=== PATIENT | female | born 1950 | race Caucasian/White ===

== ENCOUNTER → 2016-07-12 | Outpatient (CLI) | payer MEDICARE, BC ==
[~2016-07-12] MED LIST: ASPI-983; ATOR40TA PO; CLOP75TA69 PO; CYCL10TA9 PO; DIAZ5TAB3; ETD400T PO; GABA-486; HYDR-3458 PO; OXYC-272 PO; SERT50TA PO; SITA1TAB3 PO
--- OUTSIDE RECORDS SUMMARY | 2016-07-12 13:06 | XMS REPORT | Continuity of Care Document ---
Author Author [facility] Organization [facility] Address Unknown Phone Unavailable Care Team Providers Care Circular Saw Edge Fuser Name Role Phone Cosme Soliz PCP [phone] Source Comments Some departments are not documenting in the electronic medical record. If you do not see the information that you expected, contact Release of Information in the Health Information Management department at [phone] for further assistance in locating additional records.[facility] Active Allergies and Adverse Reactions Not on File Current Medications Not on file Active Problems Not on file Social History Tobacco Use Types Packs/Day Years Used Date Never Assessed Plan of Care Health Maintenance Due Date Last Done Comments Physical (Comprehensive) 1957 Exam Pertussis Vaccine 1961 Tetanus Vaccine 1967 Breast Cancer Screening 1990 Colorectal Cancer 2000 Screening Shingles Vaccine 2010 Osteoporosis Screening 2015 Prevnar/Pneumovax (#1) 2015 Influenza Vaccine 01/17/2016 Results from Last 3 Months Not on file
--- NOTE | 2016-07-12 16:55 | Diagnostic Imaging Report ---
MRI thoracic spine without contrast. INDICATION: Back pain. FINDINGS: There are no previous MRI examinations of the thoracic spine available for comparison. The previous CT lumbar spine exam of 01/26/2014 did show extensive postsurgical changes involving the lumbar spine. On this exam, there are bilateral pedicle screws in place at L1 and L2. MRI of the lumbar spine is pending for further study. The reconstructed parasagittal images show the vertebral body heights and alignment to be generally within normal limits. There is desiccation of the discs at every level but the intervertebral spaces are fairly well-maintained. There is no evidence for spinal stenosis or nerve root encroachment at any level of the thoracic spine. There is no abnormal signal arising from the cord or the vertebral bodies to indicate an acute abnormality. There is no paraspinal mass visualized. IMPRESSION: 1. There is no evidence for an acute abnormality of the thoracic spine. 2. There is moderate degenerative disc disease throughout the thoracic spine but there is no sign of spinal stenosis or nerve root encroachment at any level. Dictated by: Dictated on workstation # [id number]
--- NOTE | 2016-07-12 17:22 | Diagnostic Imaging Report ---
PROCEDURE: MRI lumbar spine. TECHNIQUE: Multiplanar, multisequence MRI of the lumbar spine was performed without contrast. INDICATION: Back pain. FINDINGS: The previous MRI lumbar spine exam performed on 09/04/2012 noted deformity of L2 and L3 due to prior compression fractures. There are also postsurgical changes involving the lower lumbar spine. The CT lumbar spine exam of 01/26/2014 revealed extensive postsurgical changes including bilateral pedicle screws at every level of the lumbar spine except L3. There is a single pedicle screw on the left at this level. On this exam, the artifact related to the orthopedic hardware does limit the sensitivity of this study. The axial images through the L4-5 level do show that there is an extradural defect compressing the left ventral aspect of the thecal sac. Whether this is secondary to disc material or epidural fibrosis is not certain. This finding may have been present on the prior CT lumbar spine exam but was difficult to appreciate due to the artifact related to the orthopedic hardware. There does appear to be compression of the left ventral aspect of the thecal sac at this level and there is narrowing of the neural foramen on the left at L4-5 as well. There is also mild narrowing of the neural foramen on the right. There is also moderate trefoil stenosis at the L1-L2 level. There is narrowing of the neural foramen bilaterally at this level, particularly on the right. The remainder of the lumbar spine is unremarkable for spinal stenosis. There is no abnormal signal arising from the cord or the vertebral bodies to indicate an acute abnormality. There is no sign of a paraspinal mass. IMPRESSION: 1. There are extensive postsurgical changes involving the lumbar spine. The artifact related to the orthopedic hardware does limit the sensitivity of this exam. 2. There does appear to be an extradural defect compressing the left ventral aspect of the thecal sac at L4-5. Whether this is secondary to disc material or to epidural fibrosis is not certain. There is also narrowing of the neural foramen on the left at this level and to a lesser extent the neural foramen on the right. Moderate trefoil stenosis is also evident at L1-2 and there is narrowing of the neural foramen bilaterally at this level as well. 3. The remainder of the lumbar spine is unremarkable for spinal stenosis or nerve root encroachment. 4. There is no sign of an acute bony abnormality or of cord lesion. Dictated by: Dictated on workstation # [id number]
--- NOTE | 2016-07-12 17:40 | Diagnostic Imaging Report ---
PROCEDURE: MR imaging cervical spine without contrast. TECHNIQUE: Multiplanar, multisequence MR imaging of the cervical spine was performed without contrast. INDICATION: Neck pain. FINDINGS: The previous MRI exam of the cervical spine performed on 04/10/2014 noted degenerative disc and bony disease at C4-5, C5-6 and C6-7. In the interval since the previous exam, the patient has undergone a surgical procedure. Specifically, there has been anterior fusion of C5, C6 and C7. The orthopedic hardware seems to be in good position and the narrowing of the thecal sac in the lower cervical region seen on previous exam has been corrected. There is no sign of recurrent stenosis at C5-C6 or C6-C7. However, the disc bulge centrally at the C4-5 level is somewhat more pronounced than on the prior exam. The AP diameter of thecal sac at C4-5 is narrowed to 10.5 mm as opposed to 11.8 mm on the prior study. There is also mild narrowing of the neural foramen bilaterally at this level. There is mild narrowing of the neural foramen on the right at C3-4. This finding is similar to the prior exam. The remainder of the cervical spine is unremarkable for spinal stenosis or nerve root encroachment. There is no abnormal signal arising from the cord or the vertebral bodies to indicate an acute abnormality. There is no sign of a paraspinal mass. The expected carotid vertebral flow voids are evident bilaterally. IMPRESSION: 1. There are postsurgical changes consistent with anterior fusion of C5, C6 and C7. There is no evidence for spinal stenosis or nerve root encroachment at the fused levels. 2. The disc bulge at the C4-5 level seen previously is slightly more pronounced than on the prior exam. There is still no evidence for central stenosis at this level. There is mild narrowing of the neural foramen bilaterally, however. 3. There is also mild narrowing of the neural foramen on the right at C3-C4 but this finding is unchanged when compared to the prior exam. 4. There is no acute bony abnormality identified and there is no sign of a cord lesion. Dictated by: Dictated on workstation # [id number]
== END ==
LOC: RAD 13:02
PROVIDERS: ATTEND Nurse Practitioner Family
DX: M54.5 Low back pain (principal); Z98.1 Arthrodesis status
CPT/HCPCS: 72141; 72146; 72148

== ENCOUNTER 2016-08-04 10:28 | Emergency (ER) | payer MEDICARE, BC ==
[~2016-08-04] VITALS: Ht 154.9 cm; Wt 50.8 kg
[~2016-08-04 10:28] MED LIST changes: -ASPI-983; -ATOR40TA PO; -CLOP75TA69 PO; -DIAZ5TAB3; -GABA-486
--- OUTSIDE RECORDS SUMMARY | 2016-08-04 10:33 | XMS REPORT | Continuity of Care Document ---
Author Author [facility] Organization [facility] Address Unknown Phone Unavailable Care Team Providers Care Junior Loan Processor Name Role Phone Cosme Soliz PCP [phone] Source Comments Some departments are not documenting in the electronic medical record. If you do not see the information that you expected, contact Release of Information in the Health Information Management department at [phone] for further assistance in locating additional records.[facility] Active Allergies and Adverse Reactions Not on [...]
[2016-08-04] MEDS ORDERED: ASPI-983 (10:40)
[2016-08-04] MEDS ORDERED: GABA-486 (10:40)
[2016-08-04] MEDS ORDERED: DIAZ5TAB3 (10:40)
[2016-08-04 10:58] LABS: BASOPHILS % (AUTO) 1 % (0-10); EOSINOPHILS # (AUTO) 0.1 10^3/uL (0.0-0.3); EOSINOPHILS % (AUTO) 1 % (0-10); LYMPHOCYTES # (AUTO) 1.8 X 10^3 (1.0-4.0); LYMPHOCYTES % (AUTO) 29 % (12-44); MEAN CORPUSCULAR HEMOGLOBIN 30 PG (25-34); MEAN CORPUSCULAR HGB CONC 34 G/DL (32-36); MEAN CORPUSCULAR VOLUME 88 FL (80-99); MEAN PLATELET VOLUME 9.8 FL (7.4-10.4); MONOCYTES # (AUTO) 0.5 X 10^3 (0.0-1.0); MONOCYTES % (AUTO) 7 % (0-12); NEUTROPHILS # (AUTO) 3.8 X 10^3 (1.8-7.8); NEUTROPHILS % (AUTO) 62 % (42-75); PLATELET COUNT 213 10^3/uL (130-400); RED BLOOD COUNT 4.39 10^6/uL (4.35-5.85); RED CELL DISTRIBUTION WIDTH 14.9 % (10.0-14.5); WHITE BLOOD COUNT 6.2 10^3/uL (4.3-11.0)
--- NOTE | 2016-08-04 11:07 | Diagnostic Imaging Report ---
PROCEDURE: CT head without contrast. TECHNIQUE: Multiple contiguous axial images were obtained through the brain without the use of intravenous contrast. INDICATION: Confusion. COMPARISON: 09/23/2012. FINDINGS: There is mild generalized cortical atrophy. No evidence of intracranial hemorrhage. There is no mass effect. There are no extra-axial fluid collections. The basal cisterns are clear. No findings are seen to suggest ischemic or hemorrhagic infarcts. The mastoid air cells and paranasal sinuses are clear where visualized. IMPRESSION: 1. There has been development of some cortical atrophy since the previous exam. 2. No acute intracranial abnormalities are demonstrated. Dictated by: Dictated on workstation # [id number]
--- NOTE | 2016-08-04 11:08 | Diagnostic Imaging Report ---
INDICATION: Chest pain. Portable chest 11:08 AM. Heart size and pulmonary vascularity are normal. Lungs are clear. There are no effusions or pneumothoraces. IMPRESSION: Negative chest. Dictated by: Dictated on workstation # [id number]
--- NOTE | 2016-08-04 11:13 | ED Neurological Problem ---
General Chief Complaint: Neurological Problems Stated Complaint: STROKE Source: patient, spouse Exam Limitations: other (BOTH PT AND ARE VERY LIMITED HISTORIANS) History of Present Illness Time seen by provider: 10:25 Initial Comments PT ARRIVES VIA POV FROM HOME THINK PT MAY BE HAVING A STROKE SYMPTOMS BEGAN AN HOUR AGO UPON WAKING AT 0915 PT WITH DEMENTIA, BUT ON WAKING, SHE HAD TROUBLE REMEMBERING THINGS--WORSE THAN NORMAL PT ALSO HAD SLURRED SPEECH ON WAKING WELL--MUCH BETTER WELL. NO PARESTHESIAS OR MOTOR DEFICITS PT HAS NOT TAKEN ANY OF HER MEDICATIONS TODAY REPORTS THAT PT'S IS BACK TO BASELINE PCP: DR. VAUGHAN BIOMED TECH : DR. MERCHANT Allergies and Home Medications Allergies Coded Allergies: Penicillins (Unverified Allergy, Unknown, HIVES, 12/21/15) THROAT SWELLS Uncoded Allergies: PAULINO INHIBITOR 2 (Allergy, Unknown, HIVES, 12/21/15) THROAT SWELLS Home Medications Aspirin 81 Mg Tablet. #30 (Reported) Atorvastatin Calcium 40 Mg Tablet #30 40 MG PO DAILY Prescribed by: ADRIANA TRIPP on 08/04/16 1221 Clopidogrel Bisulfate 75 Mg Tablet #30 75 MG PO DAILY Prescribed by: ADRIANA TRIPP on 08/04/16 1221 Cyclobenzaprine Hcl 10 Mg Tablet #40 1 EACH PO Q8HR PRN (Reported) Diazepam 5 Mg Tablet #30 (Reported) Etodolac 400 Mg Tab 400 MG PO BID (Reported) Gabapentin 100 Mg Capsule #90 (Reported) Hydrocodone Bit/Acetaminophen 1 Each Tablet 1 EACH PO (Reported) Sertraline Hcl 50 Mg Tablet 50 MG PO DAILY (Reported) Sitagliptin Phos/Metformin Hcl 1 Each Tablet 1 EACH PO DAILY (Reported) Constitutional: no symptoms reported Eyes: No Symptoms Reported Ears, Nose, Mouth, Throat: no symptoms reported Respiratory: no symptoms reported Cardiovascular: no symptoms reported Gastrointestinal: no symptoms reported Genitourinary: no symptoms reported Musculoskeletal: no symptoms reported Skin: no symptoms reported Psychiatric/Neurological: See HPI Endocrine: No Symptoms Reported Hematologic/Lymphatic: No Symptoms Reported Past Kdllhek-Uiwgab-Uvdcbi Hx Patient Social History Alcohol Use: Denies Use Recreational Drug Use: No Smoking Status: Never a Smoker Recent Hopitalizations: No Immunizations Up To Date Tetanus Booster (TDap): More than 5yrs Date of Influenza Vaccine: Feb 16, 2012 Seasonal Allergies Seasonal Allergies: Yes Surgeries HX Surgeries: Yes (SINUS SURGERY; 3 KNEE REPLACEMENTS--2 ON RIGHT, 1 ON LEFT; 3 L-SPINE SURGERIES; C-SPINE SURGERY; LEFT ELBOW SURGERY; HYST; FACIAL/JAW SURGERY) Surgeries: Hysterectomy, Orthopedic, Tonsillectomy Respiratory Hx Respiratory Disorders: Yes Respiratory Disorders: Asthma Cardiovascular Hx Cardiac Disorders: Yes Neurological Hx Neurological Disorders: Yes ("SILENT STROKE"--FOUND ON MRI; NUMBNESS TO RIGHT ANTERIOR THIGH. ) Neurological Disorders: Dementia, Stroke Reproductive System Hx Reproductive Disorders: No Genitourinary Hx Genitourinary Disorders: No Gastrointestinal Hx Gastrointestinal Disorders: No Musculoskeletal Hx Musculoskeletal Disorders: Yes (CHRONIC RIGHT LEG PAIN AND RIGHT ANTERIOR THIGH NUMBNESS; CHRONIC NECK/BACK AND KNEE PAIN; MULTIPLE SURGERIES) Musculoskeletal Disorders: Osteoporosis, Arthritis, Chronic Back Pain, Fractures Endocrine Hx Endocrine Disorders: Yes (WAS ON MEDICATIONS FOR DIABETES, BUT NOT ANY LONGER) Endocrine Disorders: Diabetes, Non-Insulin dep Cancer Hx Cancer: No Psychosocial Hx Psychiatric Problems: Yes Behavioral Health Disorders: Depression Integumentary HX Skin/Integumentary Disorder: No Blood Transfusions Hx Blood Disorders: No Physical Exam Vital Signs Vital Sign - Last 12Hours 08/04/16 10:28 Temp 98.1 Pulse 72 Resp 18 B/P 116/66 Pulse Ox 94 O2 Delivery Room Air Capillary Refill : General Appearance: WD/WN no apparent distress HEENT: PERRL/EOMI normal ENT inspection Neck: non-tender full range of motion supple normal inspection Respiratory: normal breath sounds no respiratory distress no accessory muscle use Cardiovascular: regular rate, rhythm no murmur Gastrointestinal: normal bowel sounds non tender soft Back: normal inspection no CVA tenderness no vertebral tenderness Extremities: normal range of motion non-tender normal inspection no pedal edema no calf tenderness Neurologic/Psychiatric: 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 nml as tested no motor/sensory deficits alert normal mood/affect other (ORIENTED TO PERSON, PLACE, POOR MEMORY, SOMEWHAT CONFUSED TO TIME AND SITUATION--NORMAL BASELINE PER ) Crainal Nerves: normal hearing normal speech PERRL Coordination/Gait: normal finger to nose normal gait negative Romberg's sign Motor/Sensory: no motor deficit no sensory deficit no pronator drift Reflexes: 2+ Bicep (R), 2+ Bicep (L), 2+ Knee (R), 2+ Knee (L) Skin: normal color warm/dry Focused Exam Lactic Acid Level Laboratory Tests Test 3/20/17 10:46 Alanine Aminotransferase (ALT/SGPT) 18U/L (0-55) Albumin 4.2G/DL (3.2-4.5) Alkaline Phosphatase 55U/L (40-136) Anion Gap 10MMOL/L (5-14) Aspartate Amino Transf (AST/SGOT) 26U/L (5-34) BUN/Creatinine Ratio 17 Blood Urea Nitrogen 15MG/DL (7-18) Calcium Level 8.9MG/DL (8.5-10.1) Carbon Dioxide Level 25MMOL/L (21-32) Chloride Level 111MMOL/L (98-107) H Creatinine 0.87MG/DL (0.60-1.30) Estimat Glomerular Filtration Rate > 60 Glucose Level 101MG/DL (70-105) Magnesium Level 2.1MG/DL (1.8-2.4) Myoglobin 31.0NG/ML (10.0-92.0) Potassium Level 3.9MMOL/L (3.6-5.0) Sodium Level 146MMOL/L (135-145) H Total Bilirubin 0.3MG/DL (0.1-1.0) Total Protein 6.4G/DL (6.4-8.2) Troponin I < 0.30NG/ML (<0.30) Progress/Results/Core Measures Results/Orders Lab Results Laboratory Tests Test 08/04/16 10:46 Range/Units Activated Partial Thromboplast Time 29 24-35 SEC Alanine Aminotransferase (ALT/SGPT) 18 0-55 U/L Albumin 4.2 3.2-4.5 G/DL Alkaline Phosphatase 55 40-136 U/L Anion Gap 10 5-14 MMOL/L Aspartate Amino Transf (AST/SGOT) 26 5-34 U/L BUN/Creatinine Ratio 17 Basophils # (Auto) 0.0 0.0-0.1 10^3/uL Basophils (%) (Auto) 1 0-10 % Blood Urea Nitrogen 15 7-18 MG/DL Calcium Level 8.9 8.5-10.1 MG/DL Carbon Dioxide Level 25 21-32 MMOL/L Chloride Level 111 H 98-107 MMOL/L Creatinine 0.87 0.60-1.30 MG/DL Eosinophils # (Auto) 0.1 0.0-0.3 10^3/uL Eosinophils (%) (Auto) 1 0-10 % Estimat Glomerular Filtration Rate > 60 Glucose Level 101 70-105 MG/DL Hematocrit 38 35-52 % Hemoglobin 13.2 11.5-16.0 G/DL INR Comment 0.9 0.8-1.4 Lymphocytes # (Auto) 1.8 1.0-4.0 X 10^3 Lymphocytes (%) (Auto) 29 12-44 % Magnesium Level 2.1 1.8-2.4 MG/DL Mean Corpuscular Hemoglobin 30 25-34 PG Mean Corpuscular Hemoglobin Concent 34 32-36 G/DL Mean Corpuscular Volume 88 80-99 FL Mean Platelet Volume 9.8 7.4-10.4 FL Monocytes # (Auto) 0.5 0.0-1.0 X 10^3 Monocytes (%) (Auto) 7 0-12 % Myoglobin 31.0 10.0-92.0 NG/ML Neutrophils # (Auto) 3.8 1.8-7.8 X 10^3 Neutrophils (%) (Auto) 62 42-75 % Platelet Count 213 130-400 10^3/uL Potassium Level 3.9 3.6-5.0 MMOL/L Prothrombin Time 12.3 12.2-14.7 SEC Red Blood Count 4.39 4.35-5.85 10^6/uL Red Cell Distribution Width 14.9 H 10.0-14.5 % Sodium Level 146 H 135-145 MMOL/L Total Bilirubin 0.3 0.1-1.0 MG/DL Total Protein 6.4 6.4-8.2 G/DL Troponin I < 0.30 <0.30 NG/ML White Blood Count 6.2 4.3-11.0 10^3/uL My Orders Orders-ADRIANA TRIPP DO Ekg Tracing (08/04/16 10:41) Cbc With Automated Diff (08/04/16 10:41) Comprehensive Metabolic Panel (08/04/16 10:41) Protime With Inr (08/04/16 10:41) Partial Thromboplastin Time (08/04/16 10:41) Magnesium (08/04/16 10:41) Chest 1 View, Ap/Pa Only (08/04/16 10:41) Cardiac Profile 1 (08/04/16 10:41) Myoglobin Serum (08/04/16 10:41) Ct Head Wo (08/04/16 10:41) Monitor-Rhythm Ecg Trace Only (08/04/16 10:41) Saline Lock/Iv-Start (08/04/16 10:41) Vital Signs/I&O Vital Sign - Last 12Hours 08/04/16 08/04/16 10:28 12:26 Temp 98.1 Pulse 72 70 Resp 18 18 B/P 116/66 Pulse Ox 94 96 O2 Delivery Room Air ECG Initial ECG Impression Time: 11:50 Initial ECG Rate: 68 Initial ECG Rhythm: Normal Sinus Initial ECG Impression: Normal Initial ECG Comparisson: Unchanged Diagnostic Imaging Comments CXR--NO ACUTE PROCESS CT HEAD--NO ACUTE PROCESS, ATROPHY PER RADIOLOGIST REPORTS @ 1112 Departure Communication Progress Notes 1154--ATTEMPTING TO CONTACT DR. VAUGHAN, MESSAGE ON CELL. AND LEFT MESSAGE WITH STAFF. 1204--DR. VAUGHAN CALLED BACK. ADVISES PLAVIX AND LIPITOR AND SHE WILL SEE PT IN FOLLOW UP 08/11/16 AT 2:45 Impression Impression: Primary Impression: Transient cerebral ischemia Disposition: HOME, SELF-CARE Condition: Improved Departure-Patient Inst. Referrals: ZULEYMA VAUGHAN MD (PCP/Family) Primary Care Physician Patient Instructions: Transient Ischemic Attack (DC) Add. Discharge Instructions: CONTINUE YOUR REGULAR MEDICATIONS PRESCRIBED FOLLOW UP WITH DR. VAUGHAN NEXT Thursday08/11/16 AT 2:45 FOR FURTHER CARE RETURN TO ER IF SYMPTOMS RETURN OR WORSEN All discharge instructions reviewed with patient and/or family. Voiced understanding. Scripts Atorvastatin Calcium (Lipitor)40 Mg [id number] Mg PO DAILY #30 TAB Prov:QASIM,ADRIANA K DO 08/04/16 Clopidogrel Bisulfate (Plavix)75 Mg [id number] Mg PO DAILY #30 TAB Prov:QASIMADRIANA K DO 08/04/16 DIANE TRIPPA David DO Aug 04, 2016 11:12
[2016-08-04 11:17] LABS: INR 0.9 (0.8-1.4); PROTHROMBIN TIME PATIENT 12.3 SEC (12.2-14.7)
[2016-08-04 11:26] LABS: ALANINE AMINOTRANSFERASE 18 U/L (0-55); ALBUMIN 4.2 G/DL (3.2-4.5); ANION GAP 10 MMOL/L (5-14); ASPARTATE AMINO TRANSFERASE 26 U/L (5-34); BILIRUBIN,TOTAL 0.3 MG/DL (0.1-1.0); BLOOD UREA NITROGEN 15 MG/DL (7-18); BUN/CREATININE RATIO 17; CALCIUM 8.9 MG/DL (8.5-10.1); CARBON DIOXIDE 25 MMOL/L (21-32); CHLORIDE 111 MMOL/L (98-107); CREATININE SERUM 0.87 MG/DL (0.60-1.30); GFR ESTIMATED > 60; GLUCOSE 101 MG/DL (70-105); MAGNESIUM 2.1 MG/DL (1.8-2.4); POTASSIUM 3.9 MMOL/L (3.6-5.0); SODIUM 146 MMOL/L (135-145); TOTAL PROTEIN 6.4 G/DL (6.4-8.2)
[2016-08-04] MEDS ORDERED: ATOR40TA PO (12:21)
[2016-08-04] MEDS ORDERED: CLOP75TA69 PO (12:21)
[2016-08-04 12:26] VITALS: BP 121/65
== END 2016-08-04 12:27 | disposition home or self-care (01) ==
LOC: EDUNIT# 10:28 → ER 10:29
DX: G45.9 Transient cerebral ischemic attack, unspecified (principal); E11.9 Type 2 diabetes mellitus without complications; Z79.82 Long term (current) use of aspirin; Z79.899 Other long term (current) drug therapy; F03.90 Unspecified dementia, unspecified severity, without behavioral disturbance, psychotic disturbance, mood disturbance, and anxiety
CPT/HCPCS: 36415; 70450; 71010; 80053; 83735; 83874; 84484; 85025; 85610; 85730; 93005; 93041

== ENCOUNTER → 2016-08-19 | Outpatient (CLI) | payer MEDICARE, BC ==
[~2016-08-19] MED LIST changes: +ASPI-983; +ATOR40TA PO; +CLOP75TA69 PO; +DIAZ5TAB3; +GABA-486
--- NOTE | 2016-08-21 10:19 | ECHOCARDIOGRAPHY REPORT ---
PROCEDURE PHYSICIAN: NICOLE VO DATE OF PROCEDURE: 08/19/2016 TWO DIMENSIONAL ECHOCARDIOGRAM REPORT PRIMARY PHYSICIAN: OTHER PHYSICIAN: ATTENDING PHYSICIAN: Dr. Marylu Ochoa ORDERING PHYSICIAN: ATTENDING PHYSICIAN: FAMILY PHYSICIAN: READING PHYSICIAN: Dr. Abner Vo INDICATION FOR THE PROCEDURE: History of stroke, hypertension. MEASUREMENTS DERIVED VALUES LV DIAMETER (LAX) NORMALS NORMALS Diastolic (3.6-5.2) Eject. Fract. (60%+/-6%) Systolic (2.3-3.9) Diastolic Vol. % Shortening (0.22-0.42) Systolic Vol. Aortic Root IVS THICKNESS Diastolic (0.6-1.1) LVPW THICKNESS Diastolic (0.6-1.1) LA DIAMETER Systolic (2.1-3.7) FINDINGS: 1. Sinus rhythm. 2. Left atrial dimensions are normal. 3. Aortic root dimensions are normal. 4. Left ventricular systolic function is preserved. Left ventricular ejection fraction is 60 to 65%. No LVH is present. 5. There is no wall motion abnormalities. 6. Right heart function is normal. 7. There is no evidence of pericardial effusion. 8. Mild diastolic dysfunction is present. 9. IVC is normal with a diameter of 0.9 cm normal respiratory variation. VALVULAR STRUCTURE OF THE HEART: There is mild pulmonic regurgitation with mild tricuspid regurgitation. RVSP is 23 mmHg. There is mild mitral regurgitation. Aortic valve is trileaflet with no significant pathology. CONCLUSION: 1. LV and RV size and function is normal. 2. LV EF is 60 to 65%. 3. There is no significant valvular heart disease. 4. Pulmonary pressures are normal. 5. Mild diastolic dysfunction is noted. 6. Transthoracic echocardiogram has moderate sensitivity and specificity for ruling out cardiac etiology of CVA. Transesophageal echocardiogram is recommended if clinically indicated. Job ID: [id number] Dictated Date: 08/21/2016 08:55:56 Mill Roll Operator Date: 08/21/2016 10:14:50 / troy
== END ==
LOC: CARD 12:16
PROVIDERS: ATTEND Family Medicine
DX: I10 Essential (primary) hypertension (principal); Z86.73 Personal history of transient ischemic attack (TIA), and cerebral infarction without residual deficits
CPT/HCPCS: 93306

== ENCOUNTER 2016-12-22 10:21 | Emergency (ER) | payer MEDICARE, BC ==
[~2016-12-22] VITALS: Ht 154.9 cm; Wt 59.0 kg
[2016-12-22 10:41] LABS: BASOPHILS % (AUTO) 0 % (0-10); EOSINOPHILS % (AUTO) 0 % (0-10); LYMPHOCYTES # (AUTO) 0.7 X 10^3 (1.0-4.0); LYMPHOCYTES % (AUTO) 5 % (12-44); MEAN CORPUSCULAR HEMOGLOBIN 30 PG (25-34); MEAN CORPUSCULAR HGB CONC 34 G/DL (32-36); MEAN CORPUSCULAR VOLUME 90 FL (80-99); MONOCYTES # (AUTO) 0.5 X 10^3 (0.0-1.0); MONOCYTES % (AUTO) 3 % (0-12); NEUTROPHILS # (AUTO) 13.4 X 10^3 (1.8-7.8); NEUTROPHILS % (AUTO) 92 % (42-75); PLATELET COUNT 235 10^3/uL (130-400); RED BLOOD COUNT 4.15 10^6/uL (4.35-5.85); RED CELL DISTRIBUTION WIDTH 14.9 % (10.0-14.5); WHITE BLOOD COUNT 14.6 10^3/uL (4.3-11.0)
--- NOTE | 2016-12-22 10:41 | ED Neurological Problem ---
General Chief Complaint: Neuro-Stroke Like Symptoms Stated Complaint: STROKE SYMPTOMS Source: patient, family Exam Limitations: clinical condition History of Present Illness Time seen by provider: 10:21 Initial Comments Here with who reports the patient woke up this morning and was not able to talk right and seemed very confused. Also noted some right facial droop. No history of recent injuries. States last night she may have had some problems eating but otherwise was acting appropriately. At 7 a.m., he noted that she was coughing and having difficulty swallowing. He watched her for a while and things did not get better and in fact may have worsened with her confusion. Ultimately brought her to the ER for evaluation. Does have history of a mini stroke 4 months ago but was unable to define that further. Otherwise is acting normal recently. Patient does take Namenda for some short-term memory loss that she was noted to have after having a spinal surgery several years ago. Patient's primary care doctor is Dr. Ochoa. Timing/Duration: unknown, increasing Severity: moderate Associated Symptoms: confusion, No fever/chills, No nausea/vomiting, No seizures, trouble walking, weakness Allergies and Home Medications Allergies Coded Allergies: Penicillins (Unverified Allergy, Unknown, HIVES, 12/21/15) THROAT SWELLS Uncoded Allergies: PAULINO INHIBITOR 2 (Allergy, Unknown, HIVES, 12/21/15) THROAT SWELLS Home Medications Aspirin 81 Mg Tablet., #30 (Reported) Atorvastatin Calcium 40 Mg Tablet, 40 MG PO DAILY, #30 Prescribed by: ADRIANA TRIPP on 08/04/16 1221 Clopidogrel Bisulfate 75 Mg Tablet, 75 MG PO DAILY, #30 Prescribed by: ADRIANA TRIPP on 08/04/16 1221 Cyclobenzaprine Hcl 10 Mg Tablet, 1 EACH PO Q8HR PRN, #40 (Reported) Diazepam 5 Mg Tablet, #30 (Reported) Etodolac 400 Mg Tab, 400 MG PO BID, (Reported) Gabapentin 100 Mg Capsule, #90 (Reported) Hydrocodone Bit/Acetaminophen 1 Each Tablet, 1 EACH PO, (Reported) Sertraline Hcl 50 Mg Tablet, 50 MG PO DAILY, (Reported) Sitagliptin Phos/Metformin Hcl 1 Each Tablet, 1 EACH PO DAILY, (Reported) Constitutional: see HPI, No chills, No fever Eyes: No Symptoms Reported Ears, Nose, Mouth, Throat: no symptoms reported Respiratory: no symptoms reported Cardiovascular: no symptoms reported Gastrointestinal: No abdominal pain, No nausea, No vomiting Genitourinary: no symptoms reported Skin: no symptoms reported All Other Systems Reviewed Negative Unless Noted: Yes Past Extmxnx-Boastc-Pzxnfn Hx Patient Social History Alcohol Use: Denies Use Recreational Drug Use: No Smoking Status: Never a Smoker Recent Foreign Travel: No Contact w/Someone Who Travel: No Recent Hopitalizations: No Immunizations Up To Date Tetanus Booster (TDap): More than 5yrs Date of Influenza Vaccine: Feb 16, 2012 Seasonal Allergies Seasonal Allergies: Yes Surgeries HX Surgeries: Yes Surgeries: Hysterectomy, Orthopedic, Tonsillectomy Respiratory Hx Respiratory Disorders: Yes Respiratory Disorders: Asthma Cardiovascular Hx Cardiac Disorders: Yes Neurological Hx Neurological Disorders: Yes ("SILENT STROKE"--FOUND ON MRI; NUMBNESS TO RIGHT ANTERIOR THIGH. ) Neurological Disorders: Dementia, Stroke Reproductive System Hx Reproductive Disorders: No Genitourinary Hx Genitourinary Disorders: No Gastrointestinal Hx Gastrointestinal Disorders: No Musculoskeletal Hx Musculoskeletal Disorders: Yes Musculoskeletal Disorders: Osteoporosis, Arthritis, Chronic Back Pain, Fractures Endocrine Hx Endocrine Disorders: Yes (WAS ON MEDICATIONS FOR DIABETES, BUT NOT ANY LONGER) Endocrine Disorders: Diabetes, Non-Insulin dep Cancer Hx Cancer: No Psychosocial Hx Psychiatric Problems: Yes Behavioral Health Disorders: Depression Integumentary HX Skin/Integumentary Disorder: No Blood Transfusions Hx Blood Disorders: No Reviewed Nursing Assessment Reviewed/Agree w Nursing PMH: Yes Family Medical History Significant Family History: No Pertinent Family Hx Physical Exam Vital Signs Vital Sign - Last 12Hours 12/22/16 11:01 Pulse Ox 95 O2 Delivery Room Air Capillary Refill : General Appearance: WD/WN, no apparent distress HEENT: PERRL/EOMI, pharynx normal Neck: full range of motion, supple Respiratory: lungs clear, normal breath sounds Cardiovascular: regular rate, rhythm, no murmur Peripheral Pulses: 2+ Dorsalis Pedis (R), 2+ Left Dors-Pedis (L), 2+ Radial Pulses (R), 2+ Radial Pulses (L) Gastrointestinal: non tender, soft Back: normal inspection, no CVA tenderness, no vertebral tenderness Extremities: no pedal edema, other (weakness on the right side arm greater than leg) Neurologic/Psychiatric: alert, motor weakness (right-sided), disoriented x 3, other (confused speech) Crainal Nerves: abnormal speech, facial weakness Coordination/Gait: normal gait Motor/Sensory: pronator drift (R), weak motor strength RUE, weak motor strength RLE Skin: normal color, warm/dry Progress/Results/Core Measures Results/Orders Lab Results Laboratory Tests Test 12/22/16 10:33 Range/Units White Blood Count 14.6 H 4.3-11.0 10^3/uL Red Blood Count 4.15 L 4.35-5.85 10^6/uL Hemoglobin 12.6 11.5-16.0 G/DL Hematocrit 37 35-52 % Mean Corpuscular Volume 90 80-99 FL Mean Corpuscular Hemoglobin 30 25-34 PG Mean Corpuscular Hemoglobin Concent 34 32-36 G/DL Red Cell Distribution Width 14.9 H 10.0-14.5 % Platelet Count 235 130-400 10^3/uL Mean Platelet Volume 10.0 7.4-10.4 FL Neutrophils (%) (Auto) 92 H 42-75 % Lymphocytes (%) (Auto) 5 L 12-44 % Monocytes (%) (Auto) 3 0-12 % Eosinophils (%) (Auto) 0 0-10 % Basophils (%) (Auto) 0 0-10 % Neutrophils # (Auto) 13.4 H 1.8-7.8 X 10^3 Lymphocytes # (Auto) 0.7 L 1.0-4.0 X 10^3 Monocytes # (Auto) 0.5 0.0-1.0 X 10^3 Eosinophils # (Auto) 0.0 0.0-0.3 10^3/uL Basophils # (Auto) 0.0 0.0-0.1 10^3/uL Neutrophils % (Manual) 85 % Lymphocytes % (Manual) 5 % Monocytes % (Manual) 6 % Eosinophils % (Manual) 0 % Basophils % (Manual) 0 % Band Neutrophils 4 % Anisocytosis SLIGHT Elliptocytes SLIGHT Prothrombin Time 12.0 L 12.2-14.7 SEC INR Comment 0.9 0.8-1.4 Activated Partial Thromboplast Time 22 L 24-35 SEC D-Dimer 0.40 0.00-0.49 UG/ML Sodium Level 141 135-145 MMOL/L Potassium Level 3.8 3.6-5.0 MMOL/L Chloride Level 106 98-107 MMOL/L Carbon Dioxide Level 22 21-32 MMOL/L Anion Gap 13 5-14 MMOL/L Blood Urea Nitrogen 12 7-18 MG/DL Creatinine 0.80 0.60-1.30 MG/DL Estimat Glomerular Filtration Rate > 60 BUN/Creatinine Ratio 15 Glucose Level 165 H 70-105 MG/DL Calcium Level 9.6 8.5-10.1 MG/DL Total Bilirubin 0.9 0.1-1.0 MG/DL Aspartate Amino Transf (AST/SGOT) 26 5-34 U/L Alanine Aminotransferase (ALT/SGPT) 20 0-55 U/L Alkaline Phosphatase 67 40-136 U/L Troponin I < 0.30 <0.30 NG/ML Total Protein 6.8 6.4-8.2 GM/DL Albumin 4.4 3.2-4.5 GM/DL My Orders Orders - SANTA BARNES MD Ct Head Wo-R/O Stroke (12/22/16 10:28) Cbc With Automated Diff (12/22/16 10:35) Protime With Inr (12/22/16 10:35) Partial Thromboplastin Time (12/22/16 10:35) Comprehensive Metabolic Panel (12/22/16 10:35) Fibrin Degradation Products (12/22/16 10:35) Troponin I (12/22/16 10:35) Ua Culture If Indicated (12/22/16 10:35) Chest 1 View, Ap/Pa Only (12/22/16 10:35) Ekg Tracing (12/22/16 10:35) Nothing By Mouth (12/22/16 Dinner) Accucheck Stat ONCE (12/22/16 10:35) Saline Lock/Iv-Start (12/22/16 10:35) Saline Lock/Iv-Start (12/22/16 10:35) Vital Signs - Stroke Q15M (12/22/16 10:35) O2 (12/22/16 10:35) Intake & Output 06,14,22 (12/22/16 10:35) Monitor-Rhythm Ecg Trace Only (12/22/16 10:35) Dysphagia Screening Tool (12/22/16 10:35) Post Thrombolytic Adminstratio (12/22/16 10:35) Manual Differential (12/22/16 10:33) Vital Signs/I&O Vital Sign - Last 12Hours 12/22/16 11:01 Pulse Ox 95 O2 Delivery Room Air Progress Note : Progress Note Seen and evaluated on arrival. Stroke team activation initiated. Patient has difficulty with performing the right words but does have clear speech. She is weak on the right side right upper greater than right lower. She does have right facial droop. She does not appear to have gaze palsy but there is question of sensation deficit on the right side especially in the upper extremity and face. Patient had rapid CT evaluation which did show findings listed below. 1051: I did discuss the case with the neurosurgeon on-call at [facility] in [facility]. There are concerns about the potential for aneurysm bleed as the patient has no history of trauma. Patient would benefit from being at his center that could manage this. The closest available center is [facility] in [facility]. I did page [facility] at [phone]. 1121: I did discuss the case with Dr. Rhodes at [facility], neurosurgery on-call. She does accept patient for transfer. [facility] was activated previously as bed number was received and they are in route. 1125 : [facility] flight service here and appearing patient for transport. All findings, concerns and transport decision findings were discussed with the patient's family who agrees with plan. ECG Initial ECG Impression Date: Dec 22, 2016 Initial ECG Impression Time: 10:50 Initial ECG Rate: 83 Initial ECG Rhythm: Normal Sinus Comment Sinus rhythm with normal axis. No evidence of ST elevation CO. No previous available for comparison. Interpreted by me. Diagnostic Imaging Diagonstic Imaging: CT Plain Films/CT/US/NM/MRI: head Comments NAME: SARAH POE MED REC#: [id number] PT STATUS: REG ER : 1950 PHYSICIAN: SANTA BARNES MD ADMIT DATE: 12/22/16/ER Draft Date of Exam:12/22/16 CT HEAD WO-R/O STROKE EXAMINATION: CT scan of the head without intravenous contrast. COMPARISON: 08/04/2016. INDICATION: Right-sided weakness. FINDINGS: There is a large hematoma that appears to be intra-axial within the left frontal lobe. It has 2 main components, one that is hyperdense and one that is nearly isodense. Collectively, it measures in maximum axial dimensions 6.2 x 5.7 cm. The two remarkably different densities might relate to a previous hemorrhage within 1 to 2 weeks with a new area of hemorrhage at this time. No definitive underlying mass is seen. No previous abnormality was seen focally in the left frontal lobe on a CT of 08/04/2016. There is significant shift of the midline structures anteriorly along the falx with a 1.2 cm shift to the right side. There is less prominent mass effect posteriorly in the brain although the sulci posteriorly are effaced. The lateral ventricle is asymmetric from the mass effect with compression of the left lateral ventricle frontal horn. The hemorrhage appears to be completely intra-axial with no definite extra-axial component. The calvarium, paranasal sinuses, and orbits appear grossly unremarkable. IMPRESSION: The findings are suggestive of a large left frontal intraparenchymal hemorrhage with prominent mass effect and shift of the midline structures anteriorly to the right side by 1.2 cm. There are two distinct different densities in the hematoma which may suggest current bleeding on top of an earlier hemorrhage that happened within the last 2 weeks. No definitive underlying lesion is identified. The CRITICAL FINDINGS were discussed with Dr. Barnes once the CT scan was reviewed at 10:50 AM. Dictated on workstation # [id number] Dict: 12/22/16 1044 Trans: 12/22/16 1103 [id number] Interpreted by: NAHUM MEEKS MD Electronically signed by: Departure Impression Impression: Primary Impression: Intracranial hemorrhage Disposition: XF [facility] Condition: Critical Transfer Transfer Time: 11:21 Transfer Facility: [place], [place], Dr. Guadarrama accepting Method of Transfer: Air Departure-Patient Inst. Referrals: ZULEYMA OCHOA MD (PCP/Family) Primary Care Physician SANTA BARNES MD Dec 22, 2016 10:41
[2016-12-22 10:51] LABS: INR 0.9 (0.8-1.4)
[2016-12-22 10:58] LABS: ALANINE AMINOTRANSFERASE 20 U/L (0-55); ALBUMIN 4.4 GM/DL (3.2-4.5); ANION GAP 13 MMOL/L (5-14); ANISOCYTOSIS SLIGHT; ASPARTATE AMINO TRANSFERASE 26 U/L (5-34); BAND NEUTROPHILS 4 %; BASOPHILS % (MANUAL) 0 %; BILIRUBIN,TOTAL 0.9 MG/DL (0.1-1.0); BLOOD UREA NITROGEN 12 MG/DL (7-18); BUN/CREATININE RATIO 15; CALCIUM 9.6 MG/DL (8.5-10.1); CARBON DIOXIDE 22 MMOL/L (21-32); CHLORIDE 106 MMOL/L (98-107); EOSINOPHILS % (MANUAL) 0 %; GFR ESTIMATED > 60; GLUCOSE 165 MG/DL (70-105); LYMPHOCYTES % (MANUAL) 5 %; NEUTROPHILS % (MANUAL) 85 %; POTASSIUM 3.8 MMOL/L (3.6-5.0); SODIUM 141 MMOL/L (135-145); TOTAL PROTEIN 6.8 GM/DL (6.4-8.2)
[2016-12-22 11:03] LABS: TROPONIN I < 0.30 NG/ML (<0.30)
--- NOTE | 2016-12-22 11:03 | Diagnostic Imaging Report ---
Portable upright radiograph of the chest. INDICATION: Possible stroke. Right-sided weakness. FINDINGS: The lungs are clear. The heart size is at the upper limits of normal. No effusion or pneumothorax. The mediastinum and poornima appear unremarkable. There is posterior fusion hardware seen in the lumbar spine with cement projecting over L2 and L3 levels. Also cervical spine fusion hardware is seen. IMPRESSION: No acute cardiopulmonary process. Dictated by: Dictated on workstation # [id number]
--- NOTE | 2016-12-22 11:04 | Diagnostic Imaging Report ---
EXAMINATION: CT scan of the head without intravenous contrast. COMPARISON: 08/04/2016. INDICATION: Right-sided weakness. FINDINGS: There is a large hematoma that appears to be intra-axial within the left frontal lobe. It has 2 main components, one that is hyperdense and one that is nearly isodense. Collectively, it measures in maximum axial dimensions 6.2 x 5.7 cm. The two remarkably different densities might relate to a previous hemorrhage within 1 to 2 weeks with a new area of hemorrhage at this time. No definitive underlying mass is seen. No previous abnormality was seen focally in the left frontal lobe on a CT of 08/04/2016. There is significant shift of the midline structures anteriorly along the falx with a 1.2 cm shift to the right side. There is less prominent mass effect posteriorly in the brain although the sulci posteriorly are effaced. The lateral ventricle is asymmetric from the mass effect with compression of the left lateral ventricle frontal horn. The hemorrhage appears to be completely intra-axial with no definite extra-axial component. The calvarium, paranasal sinuses, and orbits appear grossly unremarkable. IMPRESSION: 1. Large left frontal intraparenchymal hemorrhage with prominent mass effect and shift of the midline structures anteriorly to the right side by 1.2 cm. 2. There are two distinct different densities in the hematoma which may suggest current bleeding on top of an earlier hemorrhage that happened within the last 2 weeks. No definitive underlying lesion is identified. The CRITICAL FINDINGS were discussed with Dr. Dickinson once the CT scan was reviewed at 10:50 AM. Dictated by: Dictated on workstation # [id number]
[2016-12-22 11:24] LABS: BILIRUBIN,URINE NEGATIVE (NEGATIVE); KETONES,URINE NEGATIVE (NEGATIVE); LEUKOCYTE ESTERASE ,URINE NEGATIVE (NEGATIVE); NITRITE,URINE NEGATIVE (NEGATIVE); PH,URINE 7 (5-9); PROTEIN,URINE NEGATIVE (NEGATIVE); UROBILINOGEN,URINE NORMAL (NORMAL)
[2016-12-22] MEDS ORDERED: MEMA28CA PO (11:26)
[2016-12-22] MEDS ORDERED: DULO30CA48 PO (11:26)
[2016-12-22] MEDS ORDERED: DONE5TAB30 PO (11:26)
[2016-12-22 11:31] LABS: SQUAMOUS EPITHELIAL CELL,UR RARE /HPF
[2016-12-22 11:40] VITALS: BP 115/61
== END 2016-12-22 11:40 | disposition short-term general hospital (02) ==
LOC: EDUNIT# 10:21 → ER 10:22
DX: I62.9 Nontraumatic intracranial hemorrhage, unspecified (principal); F32.9 Major depressive disorder, single episode, unspecified; E11.9 Type 2 diabetes mellitus without complications; M81.0 Age-related osteoporosis without current pathological fracture; F03.90 Unspecified dementia, unspecified severity, without behavioral disturbance, psychotic disturbance, mood disturbance, and anxiety; J45.909 Unspecified asthma, uncomplicated; Z90.710 Acquired absence of both cervix and uterus; Z90.89 Acquired absence of other organs; Z79.82 Long term (current) use of aspirin; Z86.73 Personal history of transient ischemic attack (TIA), and cerebral infarction without residual deficits
CPT/HCPCS: 36415; 51702; 70450; 71010; 80053; 81000; 84484; 85007; 85027; 85379; 85610; 85730; 93005; 93041

== ENCOUNTER 2017-03-02 16:27 | Emergency (ER) | payer MEDICARE, BC ==
[~2017-03-02] VITALS: Ht 160 cm; Wt 59.0 kg
[~2017-03-02 16:27] MED LIST changes: +DONE5TAB30 PO; +DULO30CA48 PO; +MEMA28CA PO
[2017-03-02] MEDS ORDERED: LIDOCAINE UROJET 2% GEL 10 ML PKG ONE (16:59)
[2017-03-02] MEDS ORDERED: LIDOCAINE JELLY 2% (XYLOCAINE) 5 ML TUBE TOP ONE (17:15)
--- NOTE | 2017-03-02 18:02 | ED General ---
General Chief Complaint: Catheter/Drain/Tube Problems Stated Complaint: FEEDING TUBE ISSUES Nursing Triage Note: Pt apparently pulled her feeding tube out around noon. They can't find the tube Nursing Sepsis Screen: No Definite Risk Source of Information: Patient, Spouse Exam Limitations: No Limitations Allergies and Home Medications Allergies Coded Allergies: Penicillins (Unverified Allergy, Unknown, HIVES, 12/21/15) THROAT SWELLS Uncoded Allergies: PAULINO INHIBITOR 2 (Allergy, Unknown, HIVES, 12/21/15) THROAT SWELLS Home Medications Aspirin 81 Mg Tablet., #30 (Reported) Clopidogrel Bisulfate 75 Mg Tablet, 75 MG PO DAILY, #30 Prescribed by: ADRIANA TRIPP on 08/04/16 1221 Donepezil HCl 5 Mg Tablet, 5 MG PO DAILY, (Reported) Duloxetine HCl 30 Mg Capsule.dr, 30 MG PO DAILY, (Reported) Memantine HCl 28 Mg Cap.spr.24, 28 MG PO DAILY, (Reported) Past Fkjqxse-Tpidnl-Wkkrte Hx Patient Social History Recent Foreign Travel: No Contact w/Someone Who Travel: No Recent Infectious Disease Expo: No Recent Hopitalizations: No Immunizations Up To Date Tetanus Booster (TDap): More than 5yrs Date of Influenza Vaccine: Feb 16, 2012 Seasonal Allergies Seasonal Allergies: Yes Surgeries History of Surgeries: Yes ("spinal cage" ) Surgeries: Hysterectomy, Orthopedic, Tonsillectomy Respiratory History of Respiratory Disorde: Yes Respiratory Disorders: Asthma Cardiovascular History of Cardiac Disorders: No Neurological History of Neurological Disord: Yes ("mini stroke" FOUND ON MRI 3-4 months ago per ) Neurological Disorders: Dementia, Stroke Reproductive System Hx Reproductive Disorders: No Genitourinary History of Genitourinary Disor: No Gastrointestinal History of Gastrointestinal Di: No Musculoskeletal History of Musculoskeletal Dis: Yes Musculoskeletal Disorders: Osteoporosis, Arthritis, Chronic Back Pain, Fractures Endocrine History of Endocrine Disorders: Yes (WAS ON MEDICATIONS FOR DIABETES, BUT NOT ANY LONGER) Endocrine Disorders: Diabetes, Non-Insulin dep HEENT History of HEENT Disorders: No Cancer History of Cancer: No Psychosocial History of Psychiatric Problem: Yes Behavioral Health Disorders: Depression Integumentary History of Skin or Integumenta: No Blood Transfusions History of Blood Disorders: No Family Medical History Significant Family History: No Pertinent Family Hx Physical Exam Vital Signs Vital Sign - Last 12Hours 10/16/17 16:58 Temp 98.1 Pulse 68 Resp 16 B/P (MAP) 118/70 Pulse Ox 98 O2 Delivery Room Air Capillary Refill : Less Than 3 Seconds Progress/Results/Core Measures Results/Orders My Orders Orders - REN BRITT Lidocaine 2% Jelly 5 Ml (Xylocaine Jelly (03/02/17 17:15) Lidocaine 2% (Urojet) (Xylocaine Urojet) (03/02/17 16:59) Medications Given in ED Current Medications Medications Dose Ordered Sig/Marie Route Start Time Stop Time Status Last Admin Dose Admin Lidocaine HCl 10 ml STK-MED ONCE .ROUTE 03/02/17 16:59 03/02/17 17:07 DC 03/02/17 17:16 10 ML Vital Signs/I&O Vital Sign - Last 12Hours 03/02/17 16:58 Temp 98.1 Pulse 68 Resp 16 B/P (MAP) 118/70 Pulse Ox 98 O2 Delivery Room Air Blood Pressure Mean: 86 Departure Impression Impression: Primary Impression: Dislodged gastrostomy tube Disposition: 01 HOME, SELF-CARE Condition: Improved Departure-Patient Inst. Decision time for Depature: 18:00 Referrals: ZULEYMA VAUGHAN MD (PCP/Family) Primary Care Physician Patient Instructions: How to Care for Your PEG Tube Add. Discharge Instructions: All discharge instructions reviewed with patient and/or family. Voiced understanding. Continue usual home medications. Continue feedings as ordered by your physician. Follow-up with your surgeon and family practitioner for recheck and outpatient as previously scheduled. Return in the emergency department immediately for dislodged gastrostomy tube, vomiting, abdominal swelling, or any other concerns. REN BRITT Mar 02, 2017 18:02
[2017-03-02 18:15] VITALS: BP 116/68
[2017-03-02] MEDS ORDERED: HYDR-3812 PO (18:19)
--- OUTSIDE RECORDS SUMMARY | 2017-03-03 05:59 | XMS REPORT | Continuity of Care Document ---
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 Phone [employer] Unavailable Unavailable Problems Medications Allergies, Adverse Reactions, Alerts Immunizations Results Vital Signs Encounters Location Location Details Encounter Type Encounter Number Reason For Visit Attending Provider ADM Date DC Date Status Source INPATIENT [id number] 12/22/2016 Active [facility] [id number] 01/14/2017 Active [facility] Krystyna ZARATE 03/04/2017 Active [facility] Procedures Plan of Care Social History Assessment and Plan Family History Value Date Source Advance Directives Order Name Results Value Date Source
--- OUTSIDE RECORDS SUMMARY | 2017-03-03 05:59 | XMS REPORT | Clinical Summary ---
Author Author [facility] Organization [facility] Address Unknown Phone Unavailable Care Team Providers Care Medical Staff Services Coordinator Name Role Phone PCP Unavailable Source Comments Some departments are not documenting in the electronic medical record. If you do not see the information that you expected, contact Release of Information in the Health Information Management department at [phone] for further assistance in locating additional records.[facility] Allergies Active Allergy Reactions Severity Noted Date Comments Penicillins UNKNOWN High 12/22/2016 Tomato SEE COMMENTS High 1950 Throat swelling Celecoxib HIVES Medium 12/24/2016 Artichoke VOMITING Low 12/24/2016 Current Medications Prescription Sig. Disp. Refills Start End Date Status Date aspirin EC 81 mg tablet Take 81 mg by mouth Active daily. Take with food. acetaminophen (TYLENOL) Take 20.3 mL by mouth 240 mL 0 01/07/20 Active 160 mg/5 mL oral solution every 4 hours as needed. 17 Max of 4,000 mg of acetaminophen in 24 hours. senna/docusate 10 mL by PEG Tube route 01/07/20 Active (SENOKOT-S) 8.8/50 mg /10 twice daily. 17 mL solution clopiDOGrel (PLAVIX) 75 Take 1 tablet by mouth 90 tablet 3 01/07/20 Active mg tablet daily. Will reevaluate 17 continuation of this medication at your follow up appointment levETIRAcetam (KEPPRA) Take 7.5 mL by mouth 473 mL 1 01/31/20 Active 100 mg/mL oral solution twice daily. 17 donepezil (ARICEPT) 5 mg Take 1 tablet per feeding 90 tablet 3 Active tablet tube daily. 17 heparin (porcine) PF Inject 0.5 mL under the 01/31/20 Active 5,000units/0.5mL skin every 8 hours. 17 injection syringe loratadine (CLARITIN) 10 Take 1 tablet via feeding 90 tablet 3 Active mg tablet tube daily. 17 melatonin 5 mg tab 1 tablet by Per G Tube 01/31/20 Active route at bedtime daily. 17 carboxymethylcellulose Apply 1 drop to both eyes 01/31/20 Active (REFRESH PLUS) 0.5 % dpet four times daily as 17 needed. ketotifen(+) (ZADITOR) Apply 1 drop to both eyes 0 01/31/20 Active 0.025 % (0.035 %) twice daily. 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) 2016 Dementia 12/23/2016 TIA (transient ischemic attack) 12/23/2016 Chronic back pain 12/23/2016 Intraparenchymal hemorrhage of brain (HCC) 12/22/2016 Overview: Added automatically from request for surgery [id number] Dysphagia 12/22/2016 Overview: Added automatically from request for surgery [id number] Resolved Problems Problem Noted Date Resolved Date Hypernatremia 01/07/2017 01/12/2017 Encounters Date Type Specialty Care Team Description 01/14/2017 Procedure Pass Rehabilitation 01/08/2017 Procedure Pass Rehabilitation 01/06/2017 Hospital Rehabilitation Lindsey Garcia MD Nontraumatic cortical - Encounter hemorrhage of left 01/30/2017 cerebral hemisphere (HCC) 01/02/2017 Procedure Pass 01/02/2017 Surgery Jong Hankins MD INSERTION GASTROSTOMY TUBE PERCUTANEOUS 01/01/2017 Anesthesia Ash Reis SRNA Event 12/31/2016 Anesthesia Neyda Salguero CRNA Event 12/31/2016 Procedure Pass 12/28/2016 Procedure Pass 12/28/2016 Procedure Pass 12/27/2016 Procedure Pass 12/25/2016 Procedure Pass 12/24/2016 Procedure Pass 12/24/2016 Anesthesia Abby Onofre, SRNA Event 12/24/2016 Procedure Pass 12/24/2016 Surgery Antwan Guadarrama MD CRANIOTOMY EVACUATION HEMATOMA supine microscope, brainlab, tube system 12/23/2016 Procedure Pass 12/23/2016 Prep for Case Nolberto Cody MD 12/22/2016 [facility] Antwan Guadarrama MD Dysphagia - Encounter 01/06/2017 12/22/2016 Hospital Radiology Encounter 12/22/2016 Procedure Pass 12/22/2016 Procedure Pass 12/22/2016 Hospital Radiology Encounter 12/22/2016 Procedure Pass 12/22/2016 Procedure Pass from Last 3 Months Social History Tobacco Use Types Packs/Day Years Used Date Never Smoker Smokeless Tobacco: Never Used Alcohol Use Drinks/Week oz/Week Comments No Sex Assigned at Date Recorded Not on file Last Filed Vital Signs Vital Sign Reading Time Taken Blood Pressure 99/41 01/30/2017 3:41 AM CDT Pulse 73 01/30/2017 3:41 AM CDT Temperature 36.5 C (97.7 F) 01/30/2017 5:55 AM CDT Respiratory Rate - - Oxygen Saturation 100% 01/30/2017 3:41 AM CDT Inhaled Oxygen - - Concentration Weight 55 kg (121 lb 4.1 oz) 01/26/2017 1:27 PM CDT Height 152.4 cm (5') 01/06/2017 4:19 PM CDT Body Mass Index 23.68 01/26/2017 1:27 PM CDT Plan of Treatment Health Maintenance Due Date Last Done Comments HEPATITIS C SCREENING 1950 PHYSICAL (COMPREHENSIVE) 1957 EXAM PERTUSSIS VACCINE 1961 TETANUS VACCINE 1967 BREAST CANCER SCREENING 1990 COLORECTAL CANCER 2000 SCREENING SHINGLES VACCINE 2010 OSTEOPOROSIS SCREENING 2015 PREVNAR/PNEUMOVAX (#1) 2015 INFLUENZA VACCINE 12/16/2016 Implants Implanted Type Area Gis Software Developer Device Expiration Model / Identifier Date Serial / Lot Screw Neuro 1.5x4mm Drill Free - [employer]Y [facility] [id number] Sna IMPLANTS 91 / Implanted: Qty: 4 on 12/24/2016 by Antwan Beckman MD NA Cover Kirit Hole 17mm .3mm Contour Left: KATHY [employer] [facility] [id number] Titanium - Sna Skull IMPLANTS / Implanted: Qty: 1 on 12/24/2016 by Antwan Beckman MD NA Device Closure 70cm 6fr Angio-Seal Right: [facility] 07/15/2017 [id number] / Vip .035in Vascular - Sn/A Femoral N/A / Implanted: Qty: 1 on 12/29/2016 by Artery [id number] Scott Mancilla MD Procedures Procedure Name Priority Date/Time Associated Diagnosis Comments ECG-SCAN 01/18/2017 Results for this 9:44 AM CDT procedure are in the results section. ECG UNCONFIRMED-SCAN 01/14/2017 Results for this 12:21 PM CDT procedure are in the results section. TELEMETRY STRIPS-SCAN 01/09/2017 Results for this 4:23 PM CDT procedure are in the results section. ECG UNCONFIRMED-SCAN 01/09/2017 Results for this 6:19 AM CDT procedure are in the results section. ECG UNCONFIRMED-SCAN 01/09/2017 Results for this 6:19 AM CDT procedure are in the results section. INSERTION GASTROSTOMY 01/02/2017 Dysphagia TUBE PERCUTANEOUS 5:05 PM CDT ANESTHESIA ARTERIAL LINE Routine 12/24/2016 INSERTION 2:33 PM CDT Procedure Note - Alan Bolanos MD - 12/24/2016 2:33 PM CDT Anesthesi a Procedure: Arterial Line Placement A-LINE INSERTION Date/Time: 12/24/2016 2:33 PM Patient location: OR Indication s: hemodynami c monitoring Preproced ure checklist performed: 2 patient identifier s, risks & benefits discussed, patient evaluated, timeout performed, consent obtained, patient being monitored and sterile drape Sterile technique: - Proper hand washing - Cap, mask - Sterile gloves - Skin prep for antisepsis Arterial Line Procedure Patient sedated: yes (see MAR) Sedation type: general; Artery prepped with alcohol swabs; skin prep agent completely dried prior to procedure. Location: radial artery Laterality : left Technique: palpation Needle gauge: 20 G Number of attempts: 1 Procedure Outcome Catheter secured with adhesive dressing applied Events: skin intact, warm, and dry Observatio n: pt tolerated well CRANIOTOMY EVACUATION 12/24/2016 Intraparenchymal HEMATOMA supine 12:55 PM CDT hemorrhage of brain (HCC) microscope, brainlab, tube system from Last 3 Months Results * POC GLUCOSE (01/30/2017 9:08 AM) Only the most recent of 167 results within the time period is included. Component Value Ref Range Glucose, POC 113 (H) 70 - 100 MG/DL Specimen Performing Laboratory [facility] [address] [place] [address] * CBC (01/30/2017 7:25 AM) Only the most recent of 15 results within the time period is included. Component Value Ref Range White Blood Cells 3.6 (L) 4.5 - 11.0 K/UL RBC 3.35 (L) 4.0 - 5.0 M/UL Hemoglobin 10.9 (L) 12.0 - 15.0 GM/DL Hematocrit 31.2 (L) 36 - 45 % MCV 93.1 80 - 100 FL MCH 32.6 26 - 34 PG MCHC 35.0 32.0 - 36.0 G/DL RDW 17.8 (H) 11 - 15 % Platelet Count 209 150 - 400 K/UL MPV 8.1 7 - 11 FL Specimen Performing Laboratory Blood [facility] [address] [place] [address] * BASIC METABOLIC PANEL (01/30/2017 7:25 AM) Only the most recent of 31 results within the time period is included. Component Value Ref Range Sodium 139 137 - 147 MMOL/L Potassium 4.0 3.5 - 5.1 MMOL/L Chloride 106 98 - 110 MMOL/L CO2 26 21 - 30 MMOL/L Anion Gap 7 3 - 12 Glucose 104 (H) 70 - 100 MG/DL Blood Urea Nitrogen 19 7 - 25 MG/DL Creatinine 0.58 0.4 - 1.00 MG/DL Calcium 9.3 8.5 - 10.6 MG/DL eGFR Non >60 >60 mL/min Comment: The eGFR is not validated for use in drug dosing adjustments. Continue to use estimated creatinine clearance per dosing reference text. Please contact the Clinical Pharmacist for questions. eGFR >60 >60 mL/min Comment: The eGFR is not validated for use in drug dosing adjustments. Continue to use estimated creatinine clearance per dosing reference text. Please contact the Clinical Pharmacist for questions. Specimen Performing Laboratory Blood [facility] [address] [place] [address] * KEPPRA (LEVETIRACETAM) (01/23/2017 7:30 AM) Component Value Ref Range Keppra (Levetiracetam) 8.1 (L) Comment: Reference range: 12.0 to 46.0 Unit: mcg/mL ADDITIONAL INFORMATION This test was developed and its performance characteristics determined by [facility] in a manner consistent with CLIA requirements. This test has not been cleared or approved by the U.S. Food and Drug Administration. [facility], [address], [place] [address] Specimen Performing Laboratory [facility] * ECG-SCAN (01/18/2017 9:44 AM) Narrative Ordered by an unspecified provider. * ECG UNCONFIRMED-SCAN (01/14/2017 12:21 PM) Narrative Ordered by an unspecified provider. * CT HEAD WO CONTRAST (01/14/2017 11:36 AM) Only the most recent of 9 results within the time period is included. Specimen Performing Laboratory [facility] RESULTS Impressions 1. Slow continued expected evolution of the left frontal hemorrhage. No new hemorrhage. 2. No significant change in mass effect and slight left to right midline shift. Finalized by Tariq Sexton M.D. on 01/14/2017 11:49 AM. Dictated by Tariq Sexton M.D. on 01/14/2017 11:[address] head HISTORY: Altered mental status. Left frontal parenchymal hemorrhage. TECHNIQUE: Multiple contiguous axial images were obtained through the head without contrast. Coronal reconstructions were obtained from the source data. FINDINGS: Compared to the most recent study from January 08, there has been continued slow evolution and slight decrease in hyperdensity of the mixed attenuation left frontal hematoma. There is no significant change low attenuation and mass effect. There continues to be effacement of the left frontal horn and slight left to right midline shift measuring 3 mm. Atrophy and concordant ventricular enlargement is unchanged. There are no new areas of hemorrhage or low attenuation. Basilar cisterns are patent. A left frontal kirit hole is present. There is been resolution of the small amount of pneumocephalus. Procedure Note Interface, Radiant Results - 01/14/2017 11:[address] head HISTORY: Altered mental status. Left frontal parenchymal hemorrhage. TECHNIQUE: Multiple contiguous axial images were obtained through the head without contrast. Coronal reconstructions were obtained from the source data. FINDINGS: Compared to the most recent study from January 08, there has been continued slow evolution and slight decrease in hyperdensity of the mixed attenuation left frontal hematoma. There is no significant change low attenuation and mass effect. There continues to be effacement of the left frontal horn and slight left to right midline shift measuring 3 mm. Atrophy and concordant ventricular enlargement is unchanged. There are no new areas of hemorrhage or low attenuation. Basilar cisterns are patent. A left frontal kirit hole is present. There is been resolution of the small amount of pneumocephalus. IMPRESSION 1. Slow continued expected evolution of the left frontal hemorrhage. No new hemorrhage. 2. No significant change in mass effect and slight left to right midline shift. Finalized by Tariq Sexton M.D. on 01/14/2017 11:49 AM. Dictated by Tariq Sexton M.D. on 01/14/2017 11:39 AM. * COMPREHENSIVE METABOLIC PANEL (01/14/2017 11:05 AM) Component Value Ref Range Sodium 135 (L) 137 - 147 MMOL/L Potassium 4.0 3.5 - 5.1 MMOL/L Chloride 102 98 - 110 MMOL/L Glucose 303 (H) 70 - 100 MG/DL Blood Urea Nitrogen 24 7 - 25 MG/DL Creatinine 0.86 0.4 - 1.00 MG/DL Calcium 9.5 8.5 - 10.6 MG/DL Total Protein 6.6 6.0 - 8.0 G/DL Total Bilirubin 0.6 0.3 - 1.2 MG/DL Albumin 3.8 3.5 - 5.0 G/DL Alk Phosphatase 72 25 - 110 U/L AST (SGOT) 22 7 - 40 U/L CO2 25 21 - 30 MMOL/L ALT (SGPT) 36 7 - 56 U/L Anion Gap 8 3 - 12 eGFR Non >60 >60 mL/min Comment: The eGFR is not validated for use in drug dosing adjustments. Continue to use estimated creatinine clearance per dosing reference text. Please contact the Clinical Pharmacist for questions. eGFR >60 >60 mL/min Comment: The eGFR is not validated for use in drug dosing adjustments. Continue to use estimated creatinine clearance per dosing reference text. Please contact the Clinical Pharmacist for questions. Specimen Performing Laboratory [facility] [address] [place] [address] * TELEMETRY STRIPS-SCAN (01/09/2017 4:23 PM) Narrative Ordered by an unspecified provider. * ECG UNCONFIRMED-SCAN (01/09/2017 6:19 AM) Narrative Ordered by an unspecified provider. * ECG UNCONFIRMED-SCAN (01/09/2017 6:19 AM) Narrative Ordered by an unspecified provider. * CBC AND DIFF (01/06/2017 5:54 AM) Only the most recent of 16 results within the time period is included. Component Value Ref Range White Blood Cells 10.1 4.5 - 11.0 K/UL RBC 3.39 (L) 4.0 - 5.0 M/UL Hemoglobin 10.4 (L) 12.0 - 15.0 GM/DL Hematocrit 31.0 (L) 36 - 45 % MCV 91.7 80 - 100 FL MCH 30.8 26 - 34 PG MCHC 33.6 32.0 - 36.0 G/DL RDW 15.9 (H) 11 - 15 % Platelet Count 355 150 - 400 K/UL MPV 8.5 7 - 11 FL Neutrophils 77 41 - 77 % Lymphocytes 17 (L) 24 - 44 % Monocytes 5 4 - 12 % Eosinophils 1 0 - 5 % Basophils 0 0 - 2 % Absolute Neutrophil Count 7.80 (H) 1.8 - 7.0 K/UL Absolute Lymph Count 1.80 1.0 - 4.8 K/UL Absolute Monocyte Count 0.50 0 - 0.80 K/UL Absolute Eosinophil Count 0.10 0 - 0.45 K/UL Absolute Basophil Count 0.00 0 - 0.20 K/UL Specimen Performing Laboratory [facility] [address] [place] [address] * PHOSPHORUS (01/06/2017 5:54 AM) Only the most recent of 15 results within the time period is included. Component Value Ref Range Phosphorus 3.6 2.0 - 4.0 MG/DL Specimen Performing Laboratory [facility] [address] [place] [address] * MAGNESIUM (01/06/2017 5:54 AM) Only the most recent of 17 results within the time period is included. Component Value Ref Range Magnesium 2.4 1.6 - 2.6 mg/dL Specimen Performing Laboratory Blood [facility] [address] [place] [address] * IONIZED CALCIUM (01/06/2017 5:54 AM) Only the most recent of 15 results within the time period is included. Component Value Ref Range Ionized Calcium 1.20 1.0 - 1.3 MMOL/L Specimen Performing Laboratory [facility] [address] [place] [address] * SWALLOW MOTION SERIES (01/05/2017 2:45 PM) Specimen Performing Laboratory [facility] RESULTS Impressions 1. Mild penetration. 2. Severe oropharyngeal dysphagia. 3. Please see separately dictated report from the Department of Speech Pathology for further description. Approved by Ronnie Christiansen M.D. on 01/05/2017 5:23 PM By my electronic signature, I attest that I have personally reviewed the images for this examination and formulated the interpretations and opinions expressed in this report Finalized by Tony Gustafson D.O. on 01/05/2017 10:41 PM. Dictated by Ronnie Christiansen M.D. on 01/05/2017 3:17 PM. Narrative SWALLOW MOTION SERIES CLINICAL HISTORY: 66-year-old female, dysphagia, intraparenchymal hemorrhage of brain. Nontraumatic cortical hemorrhage of left cerebral hemisphere. TECHNIQUE: The procedure was performed in conjunction with members of the department of speech pathology. Video fluoroscopy was performed during swallowing of various consistencies of barium. The patient tolerated the procedure well and left the department in stable condition. TOTAL FLUOROSCOPY TIME: 96 seconds FINDINGS: Mild laryngeal penetration during swallowing with thin and nectar consistencies of barium. Spontaneous cough is absent. No aspiration. Procedure Note Interface, Radiant Results - 01/05/2017 10:44 PM CDT SWALLOW MOTION SERIES CLINICAL HISTORY: 66-year-old female, dysphagia, intraparenchymal hemorrhage of brain. Nontraumatic cortical hemorrhage of left cerebral hemisphere. TECHNIQUE: The procedure was performed in conjunction with members of the department of speech pathology. Video fluoroscopy was performed during swallowing of various consistencies of barium. The patient tolerated the procedure well and left the department in stable condition. TOTAL FLUOROSCOPY TIME: 96 seconds FINDINGS: Mild laryngeal penetration during swallowing with thin and nectar consistencies of barium. Spontaneous cough is absent. No aspiration. IMPRESSION 1. Mild penetration. 2. Severe oropharyngeal dysphagia. 3. Please see separately dictated report from the Department of Speech Pathology for further description. Approved by Ronnie Christiansen M.D. on 01/05/2017 5:23 PM By my electronic signature, I attest that I have personally reviewed the images for this examination and formulated the interpretations and opinions expressed in this report Finalized by Tony Gustafson D.O. on 01/05/2017 10:41 PM. Dictated by Ronnie Christiansen M.D. on 01/05/2017 3:17 PM. * UA REFLEX CULTURE LABEL (01/05/2017 1:11 PM) Only the most recent of 2 results within the time period is included. Component Value Ref Range UA Reflex Culture LAB LABEL Specimen Performing Laboratory [facility] [address] [place] [address] * URINALYSIS MICROSCOPIC REFLEX TO CULTURE (01/05/2017 1:11 PM) Only the most recent of 2 results within the time period is included. Component Value Ref Range WBCs,UA 10-20 0 - 2 /HPF RBCs,UA 0-2 0 - 3 /HPF Comment,UA Urine submitted for reflex culture if criteria are met:WBC>10, positive nitrite and/or >=1+ leukocyte esterase. If quantity is not sufficient, an addendum will follow. MucousUA TRACE Bacteria,UA PACKED (A) NEG-NEG Squamous Epithelial Cells 0-2 0 - 5 Specimen Performing Laboratory [facility] [address] [place] [address] * URINALYSIS DIPSTICK REFLEX TO CULTURE (01/05/2017 1:11 PM) Only the most recent of 2 results within the time period is included. Component Value Ref Range Color,UA YELLOW Turbidity,UA 1+ (A) CLEAR-CLEAR Specific Smilax-Urine 1.021 1.003 - 1.035 pH,UA 6.0 5.0 - 8.0 Protein,UA NEG NEG-NEG Glucose,UA 3+ (A) NEG-NEG Ketones,UA NEG NEG-NEG Bilirubin,UA NEG NEG-NEG Blood,UA NEG NEG-NEG Urobilinogen,UA NORMAL NORM-NORMAL Nitrite,UA NEG NEG-NEG Leukocytes,UA 1+ (A) NEG-NEG Urine Ascorbic Acid, UA POS (A) NEG-NEG Comment: Ascorbic acid is found in various food supplies and dietary supplements, and is reported to cause strong interference with Macroscopic Urinalysis testing for glucose, blood and nitrite, and can result in a false negative result. Specimen Performing Laboratory [facility] [address] [place] [address] * CULTURE-URINE W/SENSITIVITY (01/05/2017 1:11 PM) Component Value Ref Range Battery Name URINE CULTURE Specimen Description URINE Special Requests NONE Culture >100,000 organisms/ml ENTEROCOCCUS FAECIUM <100,000 organisms/ml ENTEROCOCCUS FAECALIS (A) Report Status FINAL 01/08/2017 Organism ID >100,000 organisms/ml ENTEROCOCCUS FAECIUM Organism ID >100,000 organisms/ml ENTEROCOCCUS FAECIUM Organism ID <100,000 organisms/ml ENTEROCOCCUS FAECALIS Specimen Performing Laboratory [facility] [address] [place] [address] Organism Antibiotic Method Susceptibility >100,000 organisms/ml Nitrofurantoin SAXENA MITCHELL INTERMEDIATE: enterococcus faecium Intermediate >100,000 organisms/ml Method SAXENA MITCHELL SAXENA MITCHELL enterococcus faecium >100,000 organisms/ml Ampicillin SHAMEKA (MCG/ML) 2 SUSCEPTIBLE: enterococcus faecium INTERPRETATION Susceptible >100,000 organisms/ml Vancomycin SHAMEKA (MCG/ML) <=0.5 SUSCEPTIBLE: enterococcus faecium INTERPRETATION Susceptible >100,000 organisms/ml Levofloxacin SHAMEKA (MCG/ML) <=0.5 SUSCEPTIBLE: enterococcus faecium INTERPRETATION Susceptible >100,000 organisms/ml Tetracycline SHAMEKA (MCG/ML) <=0.5 SUSCEPTIBLE: enterococcus faecium INTERPRETATION Susceptible >100,000 organisms/ml Daptomycin SHAMEKA (MCG/ML) 2 SUSCEPTIBLE: enterococcus faecium INTERPRETATION Susceptible >100,000 organisms/ml Method SHAMEKA (MCG/ML) SHAMEKA (MCG/ML) enterococcus faecium INTERPRETATION INTERPRETATION <100,000 organisms/ml Ampicillin SHAMEKA (MCG/ML) 1 SUSCEPTIBLE: enterococcus faecalis INTERPRETATION Susceptible <100,000 organisms/ml Vancomycin SHAMEKA (MCG/ML) 1 SUSCEPTIBLE: enterococcus faecalis INTERPRETATION Susceptible <100,000 organisms/ml Levofloxacin SHAMEKA (MCG/ML) <=0.5 SUSCEPTIBLE: enterococcus faecalis INTERPRETATION Susceptible <100,000 organisms/ml Nitrofurantoin SHAMEKA (MCG/ML) <=16 SUSCEPTIBLE: enterococcus faecalis INTERPRETATION Susceptible <100,000 organisms/ml Tetracycline SHAMEKA (MCG/ML) >8 RESISTANT: Resistant enterococcus faecalis INTERPRETATION <100,000 organisms/ml Daptomycin SHAMEKA (MCG/ML) 2 SUSCEPTIBLE: enterococcus faecalis INTERPRETATION Susceptible <100,000 organisms/ml Method SHAMEKA (MCG/ML) SHAMEKA (MCG/ML) enterococcus faecalis INTERPRETATION INTERPRETATION * US DOPPLER VENOUS BILATERAL (12/30/2016 1:20 PM) Specimen Performing Laboratory Bilateral [facility] RESULTS Impressions No femoral/popliteal deep venous thrombosis in either lower extremity. Approved by Justin Solis M.D. on 12/30/2016 3:02 PM By my electronic signature, I attest that I have personally reviewed the images for this examination and formulated the interpretations and opinions expressed in this report Finalized by Tyler Cannon M.D. on 12/30/2016 4:45 PM. Dictated by Justin Solis M.D. on 12/30/2016 3:00 PM. Narrative Doppler lower extremity ultrasound Clinical Indication: Female, 66 years; tachycardia, evaluate for DVT Technique: Multiple grayscale sonographic images were obtained of both lower extremities with additional color and spectral Doppler acquisitions. Comparison: None Findings: The common femoral, upper saphenous, deep femoral, femoral, and popliteal veins of both lower extremities are patent and fully compressible without focal narrowing. No soft tissue mass or fluid collection is identified within visualized portions of the lower extremities. Procedure Note Interface, Radiant Results - 12/30/2016 4:48 PM CDT Doppler lower extremity ultrasound Clinical Indication: Female, 66 years; tachycardia, evaluate for DVT Technique: Multiple grayscale sonographic images were obtained of both lower extremities with additional color and spectral Doppler acquisitions. Comparison: None Findings: The common femoral, upper saphenous, deep femoral, femoral, and popliteal veins of both lower extremities are patent and fully compressible without focal narrowing. No soft tissue mass or fluid collection is identified within visualized portions of the lower extremities. IMPRESSION No femoral/popliteal deep venous thrombosis in either lower extremity. Approved by Justin Solis M.D. on 12/30/2016 3:02 PM By my electronic signature, I attest that I have personally reviewed the images for this examination and formulated the interpretations and opinions expressed in this report Finalized by Tyler Cannon M.D. on 12/30/2016 4:45 PM. Dictated by Justin Solis M.D. on 12/30/2016 3:00 PM. * SODIUM (12/29/2016 4:55 PM) Only the most recent of 20 results within the time period is included. Component Value Ref Range Sodium 142 137 - 147 MMOL/L Specimen Performing Laboratory Blood [facility] [address] [place] [address] * IR ARTERIOGRAM NEURO (12/29/2016 11:09 AM) Specimen Performing Laboratory [facility] RAD RESULTS Impressions 1. There is no finding which explains the recurrent left frontal hemorrhage. ATTESTATION: I attest that I performed the entire procedure from beginning to end and am responsible for the image interpretations. SEDATION ATTESTATION: I was personally responsible for the administration of moderate sedation services during the procedure performed and I confirm requirements described in CPT section on moderate sedation were followed, including the use of an independent trained observer who had no other duties during the procedure. ? The total supervised sedation time: 50 minutes Total medication doses per nurse charting Finalized by Scott Mancilla M.D. on 01/09/2017 2:22 PM. Dictated by Scott Mancilla M.D. on 01/09/2017 2:10 PM. Narrative CLINICAL HISTORY: Patient is referred for angiography for recurrent hemorrhage in the left frontal region. 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 Local with Sedation PROCEDURE. Ultrasound guided femoral artery access Right common carotid arteriograms Right internal carotid arteriograms Right external carotid arteriograms Left common carotid arteriograms Left internal carotid arteriograms Left external carotid arteriograms Right deep cervical artery. Left vertebral artery arteriograms Right vertebral artery arteriograms ACCESS. Right common femoral HEMOSTASIS. Angio-Seal PROCEDURE DETAIL. The patient was brought to the angiography suite and placed supine on the table. Conscious sedation with Versed and Fentanyl was performed. Both groins were prepped and draped in the usual sterile fashion. The access site on the femoral artery was located by palpation and fluoroscopy. Ultrasound was utilized to gain arterial access to the common femoral artery. The ultrasound demonstrates the vessel is widely patent. The ultrasound image is saved and stored on PACs system. A microaccess kit was used to enter the common femoral artery. A common femoral angiogram was obtained. The Seldinger technique was used to place a 5-F sheath in the femoral artery. All bubbles were meticulously withdrawn and the sheath was carefully flushed and attached to continuous heparinized saline flush system. Similar attention was paid each subsequent sheath, catheter or microcatheter utilized to insure maintain an air free system. A 5-[place] diagnostic catheter was introduced through the sheath. Utilizing a combination of roadmap, guidewire and direct catheter access techniques, a 5 [place] diagnostic catheter was used to perform diagnostic angiography of the above named vessels. The catheter and sheath were removed and hemostasis was achieved with the Angio- Seal closure device. A sterile compressive dressing was applied. FINDINGS: Right external carotid. Images the right external carotid artery are unremarkable. There is no abnormal intracranial communication. There is no pathology there is no fistula. There is no finding to explain the recurrent hemorrhage. Right internal carotid. No abnormalities identified involving the right internal carotid circulation. Intracranial carotid is free from pathology. The MCA and ALFREDO vessels fill robustly. There are no aneurysms or vascular malformations. The venous phase demonstrates patent deep and superficial venous systems. The anterior superior sagittal sinus demonstrates a small caliber but without compromise to venous outflow there is no indication at this is more than simply normal anatomic variation. Right and left vertebral arteries. The right and left vertebral arteries are codominant. Collectively the posterior circulation is well visualized. There is no vascular abnormality identified. The branching pattern is within normal limits. There are no aneurysms or vascular malformations. There is no finding to explain the frontal hemorrhage. Right deep cervical artery. The deep cervical artery on the right side demonstrates a prominent caliber and distribution but is not associated with pathology.. Left external carotid. Images of the left external carotid artery are overall unremarkable. There is no abnormal intracranial communication. There is no pathology. There is no finding to explain the frontal hemorrhage. Left internal carotid. Images of the right left internal carotid artery are unremarkable. Intracranial ICAs free from pathology. The MCA and ALFREDO vessels fill robustly. There are no aneurysms or vascular malformations. The venous phase demonstrates patent deep and superficial systems without evidence of venous congestion. The anterior portion of the superior sagittal sinus is of small caliber but appears most consistent with normal anatomic variation without indication of obvious pathology. Procedure Note Interface, Radiant Results - 01/09/2017 2:25 PM CDT CLINICAL HISTORY: Patient is referred for angiography for recurrent hemorrhage in the left frontal region. 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 Local with Sedation PROCEDURE. Ultrasound guided femoral artery access Right common carotid arteriograms Right internal carotid arteriograms Right external carotid arteriograms Left common carotid arteriograms Left internal carotid arteriograms Left external carotid arteriograms Right deep cervical artery. Left vertebral artery arteriograms Right vertebral artery arteriograms ACCESS. Right common femoral HEMOSTASIS. Angio-Seal PROCEDURE DETAIL. The patient was brought to the angiography suite and placed supine on the table. Conscious sedation with Versed and Fentanyl was performed. Both groins were prepped and draped in the usual sterile fashion. The access site on the femoral artery was located by palpation and fluoroscopy. Ultrasound was utilized to gain arterial access to the common femoral artery. The ultrasound demonstrates the vessel is widely patent. The ultrasound image is saved and stored on PACs system. A microaccess kit was used to enter the common femoral artery. A common femoral angiogram was obtained. The Seldinger technique was used to place a 5-F sheath in the femoral artery. All bubbles were meticulously withdrawn and the sheath was carefully flushed and attached to continuous heparinized saline flush system. Similar attention was paid each subsequent sheath, catheter or microcatheter utilized to insure maintain an air free system. A 5-Citizen [place] diagnostic catheter was introduced through the sheath. Utilizing a combination of roadmap, guidewire and direct catheter access techniques, a 5 Citizen [place] diagnostic catheter was used to perform diagnostic angiography of the above named vessels. The catheter and sheath were removed and hemostasis was achieved with the Angio- Seal closure device. A sterile compressive dressing was applied. FINDINGS: Right external carotid. Images the right external carotid artery are unremarkable. There is no abnormal intracranial communication. There is no pathology there is no fistula. There is no finding to explain the recurrent hemorrhage. Right internal carotid. No abnormalities identified involving the right internal carotid circulation. Intracranial carotid is free from pathology. The MCA and ALFREDO vessels fill robustly. There are no aneurysms or vascular malformations. The venous phase demonstrates patent deep and superficial venous systems. The anterior superior sagittal sinus demonstrates a small caliber but without compromise to venous outflow there is no indication at this is more than simply normal anatomic variation. Right and left vertebral arteries. The right and left vertebral arteries are codominant. Collectively the posterior circulation is well visualized. There is no vascular abnormality identified. The branching pattern is within normal limits. There are no aneurysms or vascular malformations. There is no finding to explain the frontal hemorrhage. Right deep cervical artery. The deep cervical artery on the right side demonstrates a prominent caliber and distribution but is not associated with pathology.. Left external carotid. Images of the left external carotid artery are overall unremarkable. There is no abnormal intracranial communication. There is no pathology. There is no finding to explain the frontal hemorrhage. Left internal carotid. Images of the right left internal carotid artery are unremarkable. Intracranial ICAs free from pathology. The MCA and ALFREDO vessels fill robustly. There are no aneurysms or vascular malformations. The venous phase demonstrates patent deep and superficial systems without evidence of venous congestion. The anterior portion of the superior sagittal sinus is of small caliber but appears most consistent with normal anatomic variation without indication of obvious pathology. IMPRESSION 1. There is no finding which explains the recurrent left frontal hemorrhage. ATTESTATION: I attest that I performed the entire procedure from beginning to end and am responsible for the image interpretations. SEDATION ATTESTATION: I was personally responsible for the administration of moderate sedation services during the procedure performed and I confirm requirements described in CPT section on moderate sedation were followed, including the use of an independent trained observer who had no other duties during the procedure. ? The total supervised sedation time: 50 minutes Total medication doses per nurse charting Finalized by Scott Mancilla M.D. on 01/09/2017 2:22 PM. Dictated by Scott Mancilla M.D. on 01/09/2017 2:10 PM. * MRI HEAD WO/W CONTRAST (12/28/2016 7:15 PM) Specimen Performing Laboratory [facility] RAD RESULTS Impressions 1.Severely motion limited examination without obvious change in size of the large left frontal parenchymal hemorrhage or subtle intraventricular extension. 2.No obvious enhancing lesion or abnormal vascular flow voids. 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 Finalized by ATTILA DICKERSON M.D. on 12/29/2016 8:47 AM. Dictated by ATTILA DICKERSON M.D. on 12/29/2016 8:33 AM. Narrative MRI HEAD WO/W CONTRAST Clinical indication: Intraparenchymal hemorrhage. Technique: Pre and postcontrast MRI of the brain was performed. Contrast: 11 mL of MultiHance Comparison: CT head from December 27, 2016 Findings: This examination is limited by repetitive patient motion. There is redemonstration of the left frontal intraparenchymal hemorrhage this measures approximately 7.2 cm in maximal diameter (series 13 image 21). This is not significant changed from the prior examination allowing for difference in in technique. No obvious areas of enhancement identified. Layering occipital intraventricular hemorrhage also has not significantly changed. There is a focal area of restricted diffusion within the right cingulate gyrus subcortical white matter with associated FLAIR hyperintensities. The major intracranial flow voids appear preserved. The paranasal sinuses are clear. The globes and orbits appear normal. There are trace bilateral mastoid effusions. Procedure Note Interface, Radiant Results - 12/29/2016 8:51 AM CDT MRI HEAD WO/W CONTRAST Clinical indication: Intraparenchymal hemorrhage. Technique: Pre and postcontrast MRI of the brain was performed. Contrast: 11 mL of MultiHance Comparison: CT head from December 27, 2016 Findings: This examination is limited by repetitive patient motion. There is redemonstration of the left frontal intraparenchymal hemorrhage this measures approximately 7.2 cm in maximal diameter (series 13 image 21). This is not significant changed from the prior examination allowing for difference in in technique. No obvious areas of enhancement identified. Layering occipital intraventricular hemorrhage also has not significantly changed. There is a focal area of restricted diffusion within the right cingulate gyrus subcortical white matter with associated FLAIR hyperintensities. The major intracranial flow voids appear preserved. The paranasal sinuses are clear. The globes and orbits appear normal. There are trace bilateral mastoid effusions. IMPRESSION 1. Severely motion limited examination without obvious change in size of the large left frontal parenchymal hemorrhage or subtle intraventricular extension. 2. No obvious enhancing lesion or abnormal vascular flow voids. 3. 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 Finalized by ATTILA DICKERSON M.D. on 12/29/2016 8:47 AM. Dictated by ATTILA DICKERSON M.D. on 12/29/2016 8:33 AM. * POTASSIUM (12/28/2016 1:09 PM) Only the most recent of 9 results within the time period is included. Component Value Ref Range Potassium 4.1 3.5 - 5.1 MMOL/L Specimen Performing Laboratory [facility] [address] [place] [address] * CTA NECK WO/W CONTRAST+POST P (12/28/2016 11:19 AM) Specimen Performing Laboratory [facility] RAD RESULTS Impressions 1. Mild mixed plaque in the proximal left internal carotid artery and minimal intimal thickening or soft plaque in the proximal right internal carotid artery. There is no major cervical vascular stenosis or dissection. Finalized by Isaias Torres M.D. on 12/28/2016 11:48 AM. Dictated by Isaias Torres M.D. on 12/28/2016 11:42 AM. Narrative CTA neck CLINICAL HISTORY: Transient ischemic attack. TECHNIQUE: Multiple contiguous axial images were obtained through the neck during IV administration of 60 mL Isovue-370. Coronal, sagittal and 3-D reformations were rendered. FINDINGS: Partial comparison is made to CT head dated December 27, 2016. No comparison CT neck is available. Maxillary and mandibular hardware is again noted. Nasogastric tube and nasal airway are in place. There is debris in the pharynx. Visualized major branches of the [place] are patent without evidence of aneurysm. The basilar artery and bilateral vertebral arteries are widely patent without evidence of dissection or stenosis. The common carotid arteries are normal in caliber without calcified plaque or significant soft plaque identified. There is mild mixed plaque in the proximal left internal carotid artery and minimal intimal thickening or soft plaque in the proximal right internal carotid artery without stenosis or dissection. The parotid glands, submandibular glands and thyroid gland are unremarkable. Fat planes in the neck are preserved. Anterior cervical fusion hardware from C5 through C7 is noted. There is straightening of the normal cervical lordosis. Minimal anterolisthesis of C3 on C4 is noted, likely degenerative. Minimal anterolisthesis of C7 on T1 is also noted, likely degenerative. Procedure Note Interface, Radiant Results - 12/28/2016 11:51 AM CDT CTA neck CLINICAL HISTORY: Transient ischemic attack. TECHNIQUE: Multiple contiguous axial images were obtained through the neck during IV administration of 60 mL Isovue-370. Coronal, sagittal and 3-D reformations were rendered. FINDINGS: Partial comparison is made to CT head dated December 27, 2016. No comparison CT neck is available. Maxillary and mandibular hardware is again noted. Nasogastric tube and nasal airway are in place. There is debris in the pharynx. Visualized major branches of the [place] are patent without evidence of aneurysm. The basilar artery and bilateral vertebral arteries are widely patent without evidence of dissection or stenosis. The common carotid arteries are normal in caliber without calcified plaque or significant soft plaque identified. There is mild mixed plaque in the proximal left internal carotid artery and minimal intimal thickening or soft plaque in the proximal right internal carotid artery without stenosis or dissection. The parotid glands, submandibular glands and thyroid gland are unremarkable. Fat planes in the neck are preserved. Anterior cervical fusion hardware from C5 through C7 is noted. There is straightening of the normal cervical lordosis. Minimal anterolisthesis of C3 on C4 is noted, likely degenerative. Minimal anterolisthesis of C7 on T1 is also noted, likely degenerative. IMPRESSION 1. Mild mixed plaque in the proximal left internal carotid artery and minimal intimal thickening or soft plaque in the proximal right internal carotid artery. There is no major cervical vascular stenosis or dissection. Finalized by Isaias Torres M.D. on 12/28/2016 11:48 AM. Dictated by Isaias Torres M.D. on 12/28/2016 11:42 AM. * PROCALCITONIN (12/27/2016 11:04 PM) Only the most recent of 2 results within the time period is included. Component Value Ref Range Procalcitonin <0.05 <0.10 NG/ML Specimen Performing Laboratory [facility] [address] [place] [address] * CHEST SINGLE VIEW (12/26/2016 2:22 PM) Only the most recent of 2 results within the time period is included. Specimen Performing Laboratory [facility] RAD RESULTS Impressions No acute cardiopulmonary abnormality. Approved by Manuel Shaw M.D. on 12/26/2016 4:37 PM By my electronic signature, I attest that I have personally reviewed the images for this examination and formulated the interpretations and opinions expressed in this report Finalized by HARINDER CHILDS M.D. on 12/26/2016 4:40 PM. Dictated by Manuel Shaw M.D. on 12/26/2016 3:23 PM. Narrative CHEST SINGLE VIEW History:fever. Comparison: Chest radiograph from December 24, 2016. Findings: Enteric tube is in place coursing below the left hemidiaphragm with the tip not in the [id number]. Heart size and pulmonary vasculature are within normal limits. No consolidation, pleural effusion, or pneumothorax. ACDF is noted. Partially visualized posterior spinal fixation hardware. Procedure Note Interface, Radiant Results - 12/26/2016 4:44 PM CDT CHEST SINGLE VIEW History: fever. Comparison: Chest radiograph from December 24, 2016. Findings: Enteric tube is in place coursing below the left hemidiaphragm with the tip not in the [id number]. Heart size and pulmonary vasculature are within normal limits. No consolidation, pleural effusion, or pneumothorax. ACDF is noted. Partially visualized posterior spinal fixation hardware. IMPRESSION No acute cardiopulmonary abnormality. Approved by Manuel Shaw M.D. on 12/26/2016 4:37 PM By my electronic signature, I attest that I have personally reviewed the images for this examination and formulated the interpretations and opinions expressed in this report Finalized by HARINDER CHILDS M.D. on 12/26/2016 4:40 PM. Dictated by Manuel Shaw M.D. on 12/26/2016 3:23 PM. * CULTURE-BLOOD W/SENSITIVITY (12/26/2016 12:37 PM) Only the most recent of 2 results within the time period is included. Component Value Ref Range Battery Name BLOOD CULTURE Specimen Description BLOOD LEFT FOREARM Special Requests NONE Culture POSITIVE SMEAR: GRAM POSITIVE COCCI RESEMBLING STAPHYLOCOCCI one bottle only CRITICAL VALUE CALLED TO AND READ BACK BY/TIME/ABDULAZIZ Vang 12/27/16 1456 TL STAPHYLOCOCCUS, COAGULASE NEGATIVE , probable contamination. Susceptibility performed only by special request. Report Status FINAL 01/01/2017 Specimen Performing Laboratory [facility] [address] [place], [place] [id number] * TROPONIN-I (12/25/2016 10:52 AM) Component Value Ref Range Troponin-I 0.02 0.0 - 0.05 NG/ML Specimen Performing Laboratory [facility] [address] [place] [id number] * BLOOD GASES, ARTERIAL (12/24/2016 5:44 PM) Only the most recent of 3 results within the time period is included. Component Value Ref Range pH-Arterial 7.42 7.35 - 7.45 pCO2-Arterial 37 35 - 45 MMHG pO2-Arterial 165 (H) 80 - 100 MMHG Base Deficit-Arterial 0.0 MMOL/L O2 Sat-Arterial 99.6 (H) 95 - 99 % Dmlltwrhgol-EFW-Iep 24.4 21 - 28 MMOL/L Specimen Performing Laboratory Blood, arterial - [facility] [address] [place] [id number] * OCCULT BLOOD NON COLON CANCER SCREEN (12/24/2016 2:28 PM) Component Value Ref Range Battery Name OCCULT BLOOD SCREEN Specimen Description FECES Special Requests NONE Occult Blood NEGATIVE Report Status FINAL 12/24/2016 Specimen Performing Laboratory Stool - Feces [facility] [address] [place] [id number] * PLAVIX RESISTANCE (PLATELETWORKS) (12/24/2016 1:35 PM) Component Value Ref Range Platelet Inhibition 40 (H) 0 - 15 % Comment: Normal ADP inhibition should be less than 15%. Therapeutic (Plavix and other P2Y 12) levels should be greater than 30%. Specimen Performing Laboratory [facility] [address] [place] [address] * BLOOD TYPE CONFIRMATION - ORDER ONLY IF REQUESTED BY LAB (12/23/2016 9:57 PM) Component Value Ref Range ABO/RH(D) A POS Specimen Performing Laboratory Blood [facility] [address] [place] [address] * TYPE & CROSSMATCH (12/23/2016 8:56 PM) Component Value Ref Range Units Ordered 2 Crossmatch Expires 12/26/2016 Record Check 2ND TYPE REQUIRED ABO/RH(D) A POS Antibody Screen NEG Specimen Performing Laboratory Blood [facility] [address] [place] [address] * PLATELET FUNCTION-PFA (12/23/2016 2:53 PM) Component Value Ref Range PFA, Collagen/Epinephrine >300 (H) 83 - 207 SECS PFA Collagen/ADP 98 68 - 142 SECS PFA Interpretation Abnormal platelet function in response to collagen/epinephrine stimulation. This result can be seen in a variety of platelet aggregation disorders. Platelet aggregation studies are recommended for further evaluation. Von Willebrand disease (type 1,2A,2b,3) is very unlikely. If the patient is on ASA or aspirin like compounds, this would be the most likely explanation. Pathologist Signature INTERPRETED BY HENRRY INGRAM By the PATH SIGNATURE ABOVE, I attest that I have personally formulated the final interpretation expressed in this report and that the above diagnosis is based upon my examination of the slides and/or other material indicated in this report. Specimen Performing Laboratory [facility] [address] [place], [place] [id number] * LIPID PROFILE (12/23/2016 1:43 PM) Component Value Ref Range Cholesterol 191 <200 MG/DL Triglycerides 96 <150 MG/DL HDL 54 >40 MG/DL LDL 124 (H) <100 MG/DL VLDL 19 MG/DL Non HDL Cholesterol 137 MG/DL Comment: Calculated non-HDL Cholesterol (non-HDL-C) indirectly measures LDL-C, Lp(a), IDL-C, and VLDL-C. It is a surrogate marker for Apoprotein B. Goal should be less than 130 mg/dL. Specimen Performing Laboratory [facility] [address] [place] [address] * TEG WITH KAOLIN (12/23/2016 10:25 AM) Component Value Ref Range MA Kaolin 66.4 50.0 - 70.0 MM R Kaolin 4.3 3.0 - 9.0 MIN RK Kaolin 5.3 4.0 - 12.0 MIN K Kaolin 1.0 1.0 - 3.0 MIN Angle Kaolin 74.8 55 - 75 DEG Lysis30 0.9 0.0 - 8.0 % Specimen Performing Laboratory [facility] * HEMOGLOBIN A1C (12/23/2016 4:30 AM) Component Value Ref Range Hemoglobin A1C 5.2 4.0 - 6.0 % Comment: The ADA recommends that most patients with type 1 and type 2 diabetes maintain an A1c level <7%. Specimen Performing Laboratory [facility] [address] [place] [address] * CTA HEAD WO/W CONTR+POST PRO (12/22/2016 3:21 PM) Specimen Performing Laboratory [facility] RAD RESULTS Narrative EXAM: CTA HEAD HISTORY: Intracranial hemorrhage TECHNIQUE: Multiple contiguous axial images were obtained of the brain before and following the administration of Isovue-370IV contrast. CTA maximum density projection images were obtained of the brain with image post processing. Comparison: CT of the brain from earlier same-day FINDINGS: Dr. Ronnie Hoff M.D. has personally reviewed these images and formulated the interpretations and opinions expressed in this report. There is stable size of the large anterior left frontal intraparenchymal hemorrhage. There is continued localized mass effect and [id number] frontal midline shift and transalar herniation. The ventricles remain nondistended. The basal cisterns are otherwise patent. The mastoid air cells and visualized paranasal sinuses are well-aerated. The distal internal carotid, vertebral, and basilar arteries are patent without focal narrowing or occlusion. The anterior, middle, and posterior cerebral arteries are patent without focal narrowing. No aneurysm or arteriovenous malformation is identified. IMPRESSION 1.No cerebral aneurysm or AVM is identified. 2.Stable large anterior left frontal intraparenchymal hematoma with unchanged rightward frontal midline shift and transalar herniation. Approved by Christian Carroll M.D. on 12/22/2016 4:36 PM By my electronic signature, I attest that I have personally reviewed the images for this examination and formulated the interpretations and opinions expressed in this report Finalized by Ronnie Hoff M.D. on 12/22/2016 4:53 PM. Dictated by Christian Carroll M.D. on 12/22/2016 3:34 PM. Procedure Note Interface, Radiant Results - 12/22/2016 4:57 PM CDT EXAM: CTA HEAD HISTORY: Intracranial hemorrhage TECHNIQUE: Multiple contiguous axial images were obtained of the brain before and following the administration of Isovue-370 IV contrast. CTA maximum density projection images were obtained of the brain with image post processing. Comparison: CT of the brain from earlier same-day FINDINGS: Dr. Ronnie Hoff M.D. has personally reviewed these images and formulated the interpretations and opinions expressed in this report. There is stable size of the large anterior left frontal intraparenchymal hemorrhage. There is continued localized mass effect and [id number] frontal midline shift and transalar herniation. The ventricles remain nondistended. The basal cisterns are otherwise patent. The mastoid air cells and visualized paranasal sinuses are well-aerated. The distal internal carotid, vertebral, and basilar arteries are patent without focal narrowing or occlusion. The anterior, middle, and posterior cerebral arteries are patent without focal narrowing. No aneurysm or arteriovenous malformation is identified. IMPRESSION 1. No cerebral aneurysm or AVM is identified. 2. Stable large anterior left frontal intraparenchymal hematoma with unchanged rightward frontal midline shift and transalar herniation. Approved by Christian Carroll M.D. on 12/22/2016 4:36 PM By my electronic signature, I attest that I have personally reviewed the images for this examination and formulated the interpretations and opinions expressed in this report Finalized by Ronnie Hoff M.D. on 12/22/2016 4:53 PM. Dictated by Christian Carroll M.D. on 12/22/2016 3:34 PM. * PTT (APTT) (12/22/2016 1:45 PM) Component Value Ref Range APTT 23.7 (L) 24.0 - 40.0 SEC Specimen Performing Laboratory [facility] [address] [place] [address] * PROTIME INR (PT) (12/22/2016 1:45 PM) Component Value Ref Range INR 1.0 0.8 - 1.2 Specimen Performing Laboratory [facility] [address] [place] [address] * ABDOMEN AP ONLY (12/22/2016 7:08 AM) Specimen Performing Laboratory [facility] RESULTS Impressions 1. Enteric tube as described. Approved by Ronnie Christiansen M.D. on 12/23/2016 1:02 PM By my electronic signature, I attest that I have personally reviewed the images for this examination and formulated the interpretations and opinions expressed in this report Finalized by Codi Cunningham M.D. on 12/23/2016 1:11 PM. Dictated by Ronnie Christiansen M.D. on 12/23/2016 8:31 AM. Narrative ABDOMEN AP ONLY CLINICAL HISTORY: PostFeeding Tube Placement COMPARISON: Comparison is made with external chest radiograph December 22, 2016 FINDINGS: Two AP supine view of the abdomen is submitted for interpretation. An enteric tube is seen in place with tip likely overlying the gastric outlet. Spinal fixation hardware and vertebroplasty are noted. Nonobstructive bowel gas pattern. Procedure Note Interface, Radiant Results - 12/23/2016 1:14 PM CDT ABDOMEN AP ONLY CLINICAL HISTORY: Post Feeding Tube Placement COMPARISON: Comparison is made with external chest radiograph December 22, 2016 FINDINGS: Two AP supine view of the abdomen is submitted for interpretation. An enteric tube is seen in place with tip likely overlying the gastric outlet. Spinal fixation hardware and vertebroplasty are noted. Nonobstructive bowel gas pattern. IMPRESSION 1. Enteric tube as described. Approved by Ronnie Christiansen M.D. on 12/23/2016 1:02 PM By my electronic signature, I attest that I have personally reviewed the images for this examination and formulated the interpretations and opinions expressed in this report Finalized by Codi Cunningham M.D. on 12/23/2016 1:11 PM. Dictated by Ronnie Christiansen M.D. on 12/23/2016 8:31 AM. * GENERAL RAD CHEST EXTERNAL IMAGING (12/22/2016 12:15 AM) Narrative This order has been auto finalized and does not contain a result. * CT HEAD EXTERNAL IMAGING (12/22/2016) Narrative This order has been auto finalized and does not contain a result. from Last 3 Months
--- OUTSIDE RECORDS SUMMARY | 2017-03-03 06:02 | XMS REPORT | Encounter Summary ---
Author Author [facility] Organization [facility] Address Unknown Phone Unavailable Care Team Providers Care French Drawer Name Role Phone PCP Unavailable Reason for Visit * Auth/Cert Status Reason Specialty Diagnoses / Referred By Referred To Procedures Contact Contact Diagnoses IPH Intraparenchymal hematoma of brain (HCC) Encounter Details Date Type Department Care Team Description 01/06/2017 [facility] Flash Garcia MD Nontraumatic cortical - Encounter [address] hemorrhage of left 01/30/2017 [place] [address] cerebral hemisphere (HCC) [phone] Social History Tobacco Use Types Packs/Day Years Used Date Never Smoker Smokeless Tobacco: Never Used Alcohol Use Drinks/Week oz/Week Comments No Sex Assigned at Date Recorded Not on file as of this encounter Last Filed Vital Signs Vital Sign Reading [...] Mass Index 23.68 01/26/2017 1:27 PM CDT in this encounter Functional Status Functional Status Response Date of Assessment Does the patient have a hearing impairment: No 01/06/2017 as of this encounter Discharge Summaries * Madhavi Duke MD - 01/30/2017 12:04 PM CDT Formatting of this note may be different from the original. ATTESTATION: I have reviewed the discharge summary and agree with the resident's documentation. The patient was seen today and remained stable for discharge. The patient discharged to nursing home facility for ongoing therapies. Follow up instructions including appointments were provided and prescriptions were provided. Patient understands signs to look out for that would require to call a doctor(s) and/or call 911. [facility] with residual global aphasia, motor apraxia, right hemiparesis, dypshagia and cognitive impairments resulting in impaired mobility/ADLs, gait abnormality and cognition/communication deficit. Patient met overall goal of min A with manual wheelchair at household level by time of rehab discharge. However, due to high burden of care and limited support at home, she discharged to nursing home facility today with ongoing PT/OT/INTERNAL CONSULTANT/RN. Patient knows to follow up with Neurosurgery and PM&R. Family training was completed for mobility, ADLs, tube feeding, medication management. Staff name: Madhavi Duke MD Physician Discharge Summary Name: Roxy Phillip Date Of : 1950 Age: 66 years Admit date: 01/06/2017 Discharge date: 01-30-17 Attending Physician: Dr. Duke Service: Rehab Medicine Physician Summary completed by: Marcos Pena MD Reason for hospitalization: Mrs. Phillip is a 66 y/o female who was found to have left frontal parenchymal hemorrhage s/p evacuation and EVD placement and subsequent removal. Significant PMH: Past Medical History: Diagnosis Date Arthritis Chronic back pain Dementia Osteoporosis TIA (transient ischemic attack) Allergies: Penicillins; Tomato; Celebrex [celecoxib]; and Artichoke Admission Physical Exam notable for: BP: 111/52 (01/06 1000) Temp: 36.7 C (98.1 F) (01/06 1000) Pulse: 98 (01/06 1000) Respirations: 18 PER MINUTE (01/06 1000) SpO2: 98 % (01/06 1000) O2 Delivery: None (Room Air) (01/06 1230) There is no height or weight on file to calculate BMI. Gen: No Acute Distress, Calm HEENT: PERRL, grossly EOMI, MMM Neck: Supple, no elevated JVP Heart: Regular Rate & Rhythm, no m/g/r Lungs: Clear to auscultation bilaterally, no w/r/r Abdomen: Soft, non-tender, non-distended, +BS; PEG in place : No peter MS: Pt moves all extremities spontaneously with at least anti-gravity strength but noted to have right sided weakness compared with left Neuro: Cranial Nerves Pupils equal and reactive to light DTR's No hyperreflexia Babinski Plantar Reflex is Downgoing Bilaterally Nguyễn Normal Upper Extremity Tone Normal Lower Extremity Tone Normal Clonus Negative Bilaterally Proprioception Intact Bilaterally Memory/Cognition/Speech Fluent aphasia, unable to repeat or comprehend verbal commands; not oriented to self, time, or place Manual Muscle Testing Upper Limb Shoulder Abduction Elbow Flexion Elbow Extension Gym Teacher Right 3-4 3-4 3-4 3-4 Left 5 5 5 5 Lower Limb Hip Flexion Knee Extension Knee Flexion Ankle Dorsiflexion Ankle Plantarflexion Right 3-4 3-4 3-4 3-4 3-4 Left 5 5 5 5 5 Admission Lab/Radiology studies notable for: MRI Head 12/28/2016 (images and report reviewed): IMPRESSION 1. Severely motion limited examination without obvious change in size of the large left frontal parenchymal hemorrhage or subtle intraventricular extension. 2. No obvious enhancing lesion or abnormal vascular flow voids. 3. 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 Brief Hospital Course: The patient was admitted and the following issues were addressed during this hospitalization: (with pertinent details). L IPH with residual global aphasia, motor apraxia, right hemiparesis, dypshagia and cognitive impairments resulting in impaired mobility/ADLs, gait abnormality and cognition/communication deficit. Patient met overall goal of min A with manual wheelchair at household level by time of rehab discharge. However, due to high burden of care and limited support at home, she discharged to nursing home facility today with ongoing PT/OT/INTERNAL CONSULTANT/RN. IPH, Left Frontal -Ad[facility] to the [facility] on 12/22/2016with alarge left frontal parenchymal hemorrhage -S/p Left frontal burrhole craniotomy for evacuation 12/25 and EVD placement -CTA negative for aneurysm or AVM; MRI did not show any obvious enhancing lesion or abnormal vascular flow voids -waxing/ waning mental status initially with stable repeat Head CTs -continue Provigil for neuro-stimulation, at max dose -Global Aphasia: intermittent automatic phrases otherwise non-fluent with poor comprehension; 01/27: Started Aricept for aphasia. Spoke with Neurology about new medication with potential movement disorder- will keep a close eye on any clinical changes. - continues to tolerate -Motor Apraxia, Right Hemiparesis: work with PT, OT Possible Seizure like activity-"unresponsive" episode during therapy-Neuro consulted>Continue keppra at increased dose 750mg BID until f/u with neurology>: re consulted Neuro for tic like, rhythmic motion of rubbing face. Seizure like activity v. Drug interaction: Neuro recs EEG- 01/23 -no seizure activity, global encephalopathy Dysphagia -Discharged NPO -s/p PEG placement 01/02-Transitioned to bolus TF's Severe Malnutrition: Continue TF- Dietitian consulted. Hyperglycemia-Recent A1c 5.2 -[facility], not likely to require on discharge Left face discomfort/itching/ Left Eye irritation: Difficult to tell if pt in pain- continues to rub left side of face, will start claritin and eye drops in cause this is caused by allergies. -01/23 consulted Ophthalmology to r/o corneal abrasion, appreciate recs: no concerns for abrasion, rather more likely allergic conjunctivitis-01/25 [facility] does not carry Pataday/Zaditor, suggested Cromolyn drops so this was ordered in both eyes BID, along with Refresh BID. Discharged on Zaditor. 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 30mg which had been held due to PEG only meds-Pt to work with neuropsych Resolved Problems: -UTI, Ecoli Faecium, Completed course of treatment with levaquin 01/13 -Hypernatremia, resolved - continue current free water flushes -Urinary Retention, resolved - now off of Cardura, repeat PVRs 01/21 without retention Evaluation FIMS Current FIMS Eating FIM: 1 - Total assistance, tube feeding for nutrition and/or hydration Grooming FIM: 1 - Total assistance, patient performs less than 25% of grooming/ bathing/dressing/toileting tasks Bathing FIM: 1 - Total assistance, patient performs less than 25% of grooming/ bathing/dressing/toileting tasks Dressing - Upper Body FIM: 2 - Maximal assistance, patient performs 25-49% of grooming/bathing/dressing/toileting tasks Dressing - Lower Body FIM: 1 - Total assistance, patient performs less than 25% of grooming/bathing/dressing/toileting tasks Toileting FIM: 1 - Total assistance, requires 2 staff to assist Bladder FIM: 1 - Total assistance, patient expends less than 25% effort ( complete % of assist, if change diapers, total assist) Bowel FIM: 1 - Total assistance, patient expends less than 25% effort (complete % of assist, if change diapers, total assist) Transfers FIM: 1 - Total assistance, two or more people Toilet Transfers FIM: 1 - Total assistance, two or more people Shower Transfers FIM: 1 - Total assistance, two or more people Gait: 1 - Toal assistance, two or more people, < 50 feet Stairs FIM: 1 - Total assistance, ambulates up and down fewer than 4 stairs Comprehension FIM: 1 - Total assistance. Understands less than 25% of the time or does not understand simple, commonly used spoken expressions or gestures Expression FIM: 1 - Total assistance - Expresses <25% of the time or does not express simple, commonly used spoken expressions or gestures Social Interaction FIM: 1 - Total assistance - Able to interact appropriately with staff, patient and family members <25% of the times Problem Solving FIM: 1 - Total assistance - Able to solve routine problems <25% of the time. May require constant 1:1 direction to complete simple daily activities. May need restraint for safety Memory FIM: 1 - Total assistance - Able to recognize people frequently encountered, remembers daily routines, responds to requests of others <25% of the time or does not effectively recognize and remember Eating FIM: 1 - Total assistance, tube feeding for nutrition and/or hydration Grooming FIM: 4 - Minimal contact assistance, patient performs 75% or more of grooming/bathing/dressing/toileting tasks Bathing FIM: 3 - Moderate assistance, patient performs 50-74% or more of grooming/bathing/dressing/toileting tasks Dressing - Upper Body FIM: 2 - Maximal assistance, patient performs 25-49% of grooming/bathing/dressing/toileting tasks Dressing - Lower Body FIM: 1 - Total assistance, patient performs less than 25% of grooming/bathing/dressing/toileting tasks Toileting FIM: 1 - Total assistance, patient performs less than 25% of grooming/ bathing/dressing/toileting tasks Bladder FIM: 1 - Total assistance, patient expends less than 25% effort ( complete % of assist, if change diapers, total assist) Bowel FIM: (P) 6 - Modified independence - Medication Transfers FIM: (P) 4 - Contact guard assistance Toilet Transfers FIM: 1 - Total assistance, patient performs less than 25% of transferring tasks Shower Transfers FIM: 3 - Moderate assistance, patient performs 50-74% of transferring tasks (lifting required) Gait: 4 - Minimal contact assistance, patient expends 75% or more effort, greater than or equal to 150 feet Stairs FIM: 0 - Activity did not occur - Other (comment) Comprehension FIM: (P) 1 - Total assistance. Understands less than 25% of the time or does not understand simple, commonly used spoken expressions or gestures Expression FIM: (P) 1 - Total assistance - Expresses <25% of the time or does not express simple, commonly used spoken expressions or gestures Social Interaction FIM: (P) 1 - Total assistance - Able to interact appropriately with staff, patient and family members <25% of the times Problem Solving FIM: (P) 1 - Total assistance - Able to solve routine problems < 25% of the time. May require constant 1:1 direction to complete simple daily activities. May need restraint for safety Memory FIM: (P) 1 - Total assistance - Able to recognize people frequently encountered, remembers daily routines, responds to requests of others <25% of the time or does not effectively recognize and remember Physical Therapy Current Recommendations/Plan/Goals Plan PT Plan: Balance/vestibular training, Bed mobility training, Family / caregiver training, Gait training, Stair training, Therapeutic exercise, Transfer training Comments: Plan for ongoing family training with spouse and daughter (if available). Continue gait training, motor planning activities and stair safety. Work towards increasing patient participation with bed mobility. Recommendations PT Discharge Recommendations: [facility] Facility Equipment Recommendations: Wheelchair cushion, Wheelchair - Manual, Hospital bed ([id number] wheelchair, silas lift) Comments: Patient is a two person assist for supine to/from sit bed mobility consistently and a two person transfer for bed to/from wheelchair inconsistently. Patient will require a silas lift to decrease caregiver burden & transfer safely out of bed & between surfaces. Plan for spouse to trial mechanical silas lift. Expected Discharge Date: 01/30/17 Weekly Goals Weekly Bed Mobility Goals: Patient will perform sit to supine with, Patient will perform supine to sit with Patient will perform sit to supine with: Moderate assistance, Not progressing Patient will perform supine to sit with: Moderate assistance, Not progressing Weekly Transfer Goals: Patient will complete sit to stand transfer with, Patient will complete stand pivot transfer with Patient will complete sit to stand transfer with: Moderate assistance, Achieved , Minimum assistance (inconsistently) Patient will complete stand pivot transfer with: Moderate assistance, Achieved, Minimum assistance (inconsistently) Weekly Ambulation/Stairs Goals: Patient will ambulate, Patient will ascend/ descend Patient will ambulate: 150 feet, Least assistive device, Moderate assistance, Achieved Patient will ascend/descend: 4 stairs, Moderate assistance, No rail, Achieved Goal(s) for the Stay Patient will perform: household mobility, at ambulation level, Minimum assistance, Least assistive device, Progressing (inconsistent performance due to cognition) Occupational Therapy Current Recommendations/Plan/Goals Recommendations OT Discharge Recommendations: Home with family assist, Day program, Vs, Home setting w/Outpatient Therapy OT Equipment Recommendations: Commode Expected Discharge Date: 01/30/17 Recommendations OT Discharge Recommendations: Home with family assist, Day program, Vs, Home setting w/Outpatient Therapy OT Equipment Recommendations: Commode Expected Discharge Date: 01/30/17 Goals for the stay Pt will perform basic care and transfer with: Progressing (d/c to nursing home ) Condition at Discharge: Stable Discharge Diagnoses: Hospital Problems Active Problems * (Principal)Nontraumatic cortical hemorrhage of left cerebral hemisphere (HCC ) Dysphagia Intraparenchymal hematoma of brain (HCC) Aphasia 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) Impaired mobility and activities of daily living Normocytic anemia Apraxia Resolved Problems RESOLVED: Hypernatremia Surgical Procedures: None Significant Diagnostic Studies and Procedures: noted in brief hospital course Consults: Neurology and Ophthalmology Patient Disposition: [facility] Facility Patient instructions/medications: Activity as Tolerated It is important to keep increasing your activity level after you leave the hospital. Moving around can help prevent blood clots, lung infection (pneumonia ) and other problems. Gradually increasing the number of times you are up moving around will help you return to your normal activity level more quickly. Continue to increase the number of times you are up to the chair and walking daily to return to your normal activity level. Begin to work toward your normal activity level at discharge Report These Signs and Symptoms Please contact your doctor if you have any of the following symptoms: temperature higher than 100 degrees F, uncontrolled pain, persistent nausea and/ or vomiting, difficulty breathing, chest pain, severe abdominal pain, headache, unable to urinate, unable to have bowel movement or drainage with a foul odor Questions About Your Stay For questions or concerns regarding your hospital stay. Call [phone] Discharging attending physician: MADHAVI DUKE [[id number]] Tube Feeding Formula: Isosource 1.5 Schedule: Bolus amount 1 carton How often: four times a day Flush/Rinse: Use water 30-60 milliliters at one time. Give Before and after each bolus. Give 165 mL water bolus q8h. Home Care Instructions: *Please remember to flush/rinse tube with water or normal saline after feed. This will help prevent the tube from clogging. *Don't keep cans of formula open for more than 24 hours. *Stop feeding if you become nauseated or begin vomiting. Hold the next feeding for 1 hour. *Make sure you are sitting up during and after feeding. *Give bolus or syringe feeding over 20 minutes. Feedings given too fast can cause cramping and loose stools. PATIENT GOING TO SKILLED G FACILITY I certify that the patient requires skilled care Yes The patient's stay is expected to be less than 30 days Yes I will be in charge of patient in [place] [facility] No Return Appointment 2nd floor Medical Office Building, Neurosurgery Pod 2B Provider FLASH GARCIA V [[id number]] Location Rehab Clinic Appointment date: 03/04/2017 Appointment time: 10:00 AM Other appointment instructions Arrive 15 minutes early to complete paperwork Current Discharge Medication List START taking these medications Details carboxymethylcellulose (REFRESH PLUS) 0.5 % dpet Apply 1 drop to both eyes four times daily as needed. PRESCRIPTION TYPE: OTC donepezil (ARICEPT) 5 mg tablet Take 1 tablet per feeding tube daily. Qty: 90 tablet, Refills: 3 PRESCRIPTION TYPE: No Print ketotifen(+) (ZADITOR) 0.025 % (0.035 %) ophthalmic solution Apply 1 drop to both eyes twice daily. Refills: 0 PRESCRIPTION TYPE: OTC loratadine (CLARITIN) 10 mg tablet Take 1 tablet via feeding tube daily. Qty: 90 tablet, Refills: 3 PRESCRIPTION TYPE: OTC melatonin 5 mg tab 1 tablet by Per G Tube route at bedtime daily. PRESCRIPTION TYPE: OTC CONTINUE these medications which have been CHANGED or REFILLED Details heparin (porcine) PF 5,000units/0.5mL injection syringe Inject 0.5 mL under the skin every 8 hours. PRESCRIPTION TYPE: No Print levETIRAcetam (KEPPRA) 100 mg/mL oral solution Take 7.5 mL by mouth twice daily. Qty: 473 mL, Refills: 1 PRESCRIPTION TYPE: No Print CONTINUE these medications which have NOT CHANGED Details acetaminophen (TYLENOL) 160 mg/5 mL oral solution Take 20.3 mL by mouth every 4 hours as needed. Max of 4,000 mg of acetaminophen in 24 hours. Qty: 240 mL, Refills: 0 PRESCRIPTION TYPE: No Print aspirin EC 81 mg tablet Take 81 mg by mouth daily. Take with food. PRESCRIPTION TYPE: Historical Med clopiDOGrel (PLAVIX) 75 mg tablet Take 1 tablet by mouth daily. Will reevaluate continuation of this medication at your follow up appointment Qty: 90 tablet, Refills: 3 PRESCRIPTION TYPE: No Print senna/docusate (SENOKOT-S) 8.8/50 mg /10 mL solution 10 mL by PEG Tube route twice daily. PRESCRIPTION TYPE: No Print The following medications were removed from your list. This list includes medications discontinued this stay and those removed from your prior med list in our system cefpodoxime (VANTIN) 100 mg tablet doxazosin (CARDURA) [address] (CYMBALTA) 30 mg capsule HYDROcodone/acetaminophen (NORCO) 5/325 mg tablet Scheduled appointments: Feb 11, 2017 10:30 AM CDT Post - Op with Antwan Guadarrama MD [facility] - Neurosurgery ([facility]) 2nd Floor Pod [address] [facility] [id number] Mar 04, 2017 10:00 AM CDT Return Patient with Flash Garcia MD [facility] - Rehabilitation Medicine (--) 2nd Floor [address] [facility] [id number] Pending items needing follow up: Patient knows to follow up with Neurosurgery and PM&R. Family training was completed for mobility, ADLs, tube feeding, medication management. Signed: Marcos Pena MD 02/02/2017 cc: Primary Care Physician: Marylu Ochoa Verified Referring physicians: Marylu Ochoa MD Additional provider(s): in this encounter Discharge Instructions * Rehab Team Metal Hanger/Case Management Support/Ongoing Services/DME - Lidya Winn - 01/13/2017 8:40 AM CDT SNF vs home with assistance and need for hospital bed, silas lift, tub transfer bench and commode with ongoing PT/OT/ST through HH services and tube feedings. to provide cares to pt 24/7 starting today for full understanding of pt' s care needs at home. Type of Residence: Home, dependent on others (some supervision required) Living Arrangements: Spouse/significant other Bathroom Shower / Tub: Tub/Shower Unit Bathroom Toilet: Standard Bathroom Equipment: Hand-Held Shower Bathroom Accessibility: Not Accessible (Could use walker to side-step) How many levels in the residence?: 1 (Pt has 4 steps with one rail to enter home.) Can patient live on one level if needed?: Yes Support Systems: Other family (Pt's is retired and available for consistent supervision, however has his own medical concerns and receives disability, therefore he is limited with physical assist. Pt's dgt Soledad RN lives 45 minutes away and works.) Assistance Needed: Yes Who provides assistance or could if needed?: Frank Are they in good health?: Yes (Frank has had a stroke in the past and is on disability, therefore is limited with physical support.) Can support system provide 24/7 care if needed?: Yes Home Care Services: No Frank verbalized family has been very supportive since pt has been hospitalized, however he does not believe he will have much support at home. Frank explained it will likely only be him to provide supervision to pt stating his dgt Soledad is supportive, however she lives 45 minutes away and works. Frank verbalized he is limited on physical support he can provide to pt as he had a stroke a couple of years ago and was on disability prior to this. Frank verbalized concern over pt using their home bathroom stating he does not believe it will be accessible with a rw. The bathroom has a step down to enter. Pt has a tub shower with sliding doors. Level of Function Prior level of function: Independent (Pt independent and driving, however she had a few memory concerns where she would write lists to remember.) Coverage Primary Insurance: Medicare Secondary Insurance: Commercial insurance (BCBS) Additional Coverage: RX (BCBS) Source of Income Source Of Income: Other fpc income PCP Marylu Ochoa DME DME at home: None Home Health Receiving home health: No * Rehab Team Physician - Marcos Pena MD - 01/12/2017 9:10 PM CDT Rehab Dx: left frontal parenchymal hemorrhage is a 66 y/o female who was found to have left frontal parenchymal hemorrhage s/p evacuation and EVD placement and subsequent removal. UTI growing Ecoli not covered by vantin, treated with levaquin. Concern for regression therapies, CT head negative. Pt improved after proper treatment of UTI. EEG for seizure like activity- negative for seizure activity. Aricept started for aphasia. * Rehab Team Speech Therapy Progression - Betsy Howe - 01/12/2017 4:24 PM CDT Improvements w/ trials of thin liquids. Good participation in 01/26/17 therapy sessions. * Rehab Team Speech Therapy Barriers and Concerns - Betsy Howe - 2016 4:24 PM CDT Aphasia - fluent w/ poor auditory comprehension. Limited testing given poor pt participation. Reduced attention to therapy tasks. Attention waxes and wanes. NPO w/ PEG. Frequent oral care. Showing improvements w/ trials of thin. Recommend consistent supervision upon discharge given impaired communication, memory, and problem solving. Recommend assistance w/ medications and finances. * Rehab Team Weekly Goals - Kendra Suazo - 01/12/2017 3:11 PM CDT Pt will tolerate being up for all therapies (up/down schedule) Complete family training with spouse (08/12 trial 01/27) * Rehab Team DC Planning - Kendra Suazo - 01/12/2017 2:59 PM CDT Plan SNF vs Home with spouse and hired assist;pt is variable assist for ADLs but at times total assist x2 person and variable assist for mobility DME:commode, hospital bed, [id number] wheelchair, silas lift * Rehab Team PT Progression - Kendra Suazo - 01/12/2017 2:57 PM CDT At times, patient demonstrates improved alertness and participation. When alert and motivated pt can attend to task for 30-45 seconds before requiring verbal cue Spouse participating family training for ADL assist and functional transfers Can walk with minimal assist & perform stairs with minimal assist as cognition allows * Rehab Team PT Barriers and Concerns - Kendra Suazo - 01/12/2017 2:11 PM CDT Continues to require mod to max cueing for mobility with physical assist to initiate at times Unable to consistently follow commands Pt requires max verbal cues and at times physical hand over hand assist to initiate, attend, and complete ADLs Pt can be total assist with ADLs dependent on lethargy and motivation Motor Apraxia Can require 2 person assist to stand for pant management depending on pt motivation Concerns for spouse's ability to care for patient at home due to need for 24/ care in this encounter Medications at Time of Discharge Medication Sig. Disp. Refills Start Date End Date acetaminophen (TYLENOL) Take 20.3 mL by mouth 240 mL 0 01/06/2017 160 mg/5 mL oral solution every 4 hours as needed. Max of 4,000 mg of acetaminophen in 24 hours. aspirin EC 81 mg tablet Take 81 mg by mouth daily. Take with food. carboxymethylcellulose Apply 1 drop to both eyes 01/30/2017 (REFRESH PLUS) 0.5 % dpet four times daily as needed. clopiDOGrel (PLAVIX) 75 Take 1 tablet by mouth 90 tablet 3 01/06/2017 mg tablet daily. Will reevaluate continuation of this medication at your follow up appointment donepezil (ARICEPT) 5 mg Take 1 tablet per feeding 90 tablet 3 2016 tablet tube daily. heparin (porcine) PF Inject 0.5 mL under the 01/30/2017 5,000units/0.5mL skin every 8 hours. injection syringe ketotifen(+) (ZADITOR) Apply 1 drop to both eyes 0 01/30/2017 0.025 % (0.035 %) twice daily. ophthalmic solution levETIRAcetam (KEPPRA) Take 7.5 mL by mouth 473 mL 1 01/30/2017 100 mg/mL oral solution twice daily. loratadine (CLARITIN) 10 Take 1 tablet via feeding 90 tablet 3 2016 mg tablet tube daily. melatonin 5 mg tab 1 tablet by Per G Tube 01/30/2017 route at bedtime daily. senna/docusate 10 mL by PEG Tube route 01/06/2017 (SENOKOT-S) 8.8/50 mg /10 twice daily. mL solution as of this encounter Progress Notes * Marlene Boateng RN - 01/30/2017 12:04 PM CDT Roxy Phillip discharged on 01/30/2017 at 1155. . Discharge instructions reviewed with patient's spouse and given to spouse to provide to [facility], the SNF that the patient will be transfering to. Valuables returned: Personal Items / Valuables: Clothing, Eyeglasses/Contacts Where Are Valuables Stored?: with patient at discharge. Home medications: none . Functional assessment at discharge complete:yes Report called to ENRIQUE Brown at [facility]. * Madhavi Duke MD - 01/30/2017 11:35 AM CDT Formatting of this note may be different from the original. ATTESTATION I personally performed the de anda portions of the E/M visit, discussed case with resident and concur with resident documentation of history, physical exam, assessment, and treatment plan unless otherwise noted. The patient was seen today and remained stable for discharge. The patient discharged to nursing home facility for ongoing therapies. Follow up instructions including appointments were provided and prescriptions were provided. Patient understands signs to look out for that would require to call a doctor(s) and/or call 911. [facility] with residual global aphasia, motor apraxia, right hemiparesis, dypshagia and cognitive impairments resulting in impaired mobility/ADLs, gait abnormality and cognition/communication deficit. Patient met overall goal of min A with manual wheelchair at household level by time of rehab discharge. However, due to high burden of care and limited support at home, she discharged to nursing home facility today with ongoing PT/OT/INTERNAL CONSULTANT/RN. Patient knows to follow up with Neurosurgery and PM&R. Family training was completed for mobility, ADLs, tube feeding, medication management. 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 Phillip is a 66 y/o female who was found to have left frontal parenchymal hemorrhage s/p evacuation and EVD placement and subsequent removal. Rehabilitation: Rehab Dx: IPH Therapy: PT, OT, ST Daily Functional Update: Transfers Device Sit to Stand Transfer: Assistive Device: None (01/29/2017 12:00 PM) Transfer: Sit to Stand: Minimum assistance (01/29/2017 12:00 PM) Gait Device Assist Required Distance Gait: Assistive Device: None (01/29/2017 12:00 PM) Gait: Assist Level: Minimum assistance (01/27/2017 4:31 PM) Gait Distance: 600 feet (sitting rest break between) (01/29/2017 12:00 PM) Dressing Lower Body LE Dressing Assist: Total Assist (01/29/2017 10:00 AM) IP, Left Frontal -Admitted to the [facility] on 12/22/2016with alarge left frontal parenchymal hemorrhage -S/p Left frontal burrhole craniotomy for evacuation 12/25 and EVD placement -CTA negative for aneurysm or AVM; MRI did not show any obvious enhancing lesion or abnormal vascular flow voids -waxing/ waning mental status initially with stable repeat Head CTs -continue Provigil for neuro-stimulation, at max dose -Global Aphasia: intermittent automatic phrases otherwise non-fluent with poor comprehension; 01/27: Started Aricept for aphasia. Spoke with Neurology about new medication with potential movement disorder- will keep a close eye on any clinical changes. - continues to tolerate -Motor Apraxia, Right Hemiparesis: work with PT, OT Possible Seizure like activity -"unresponsive" episode during therapy -Neuro consulted, appreciate reccs >Continue keppra at increased dose 750mg BID until f/u with neurology >01/22: re consulted Neuro for tic like, rhythmic motion of rubbing face. Seizure like activity v. Drug interaction -Neuro recs EEG- 01/23 -no seizure activity, global encephalopathy Dysphagia -Currently NPO -s/p PEG placement 01/02 -Transitioned to bolus TF's Severe Malnutrition: Continue TF- Dietitian consulted. Hyperglycemia -Recent A1c 5.2 -[facility], not likely to require on discharge Left face discomfort/itching Left Eye irritation Difficult to tell if pt in pain- continues to rub left side of face, will start claritin and eye drops in cause this is caused by allergies. 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 Bowel: continue oral laxatives to promote regular bowel movements Bladder: Continue off Cardura. No current concern for retention. Continue timed voiding for incontinence. Nutrition: NPO, continue TF's Mental Health: consulted neuropsychology to provide support / counseling DVT Prophylaxis: Heparin Resolved Problems: -UTI, Ecoli Faecium, Completed course of treatment with levaquin 01/13 -Hypernatremia, resolved - continue current free water flushes -Urinary Retention, resolved - now off of Cardura, repeat PVRs 01/21 without retention Marcos Pena MD Pager [phone] Subjective No events overnight. Pt seen sitting in chair- dressed and ready for SNF placement. Unable to name watch, but able to participate in conversation. . Denies any new issues. Objective Vital Signs: Last Filed Vital Signs: 24 Hour Range BP: 99/41 (01/30 341) Temp: 36.5 C (97.7 F) (01/30 05) Pulse: 73 (01/30 341) Respirations: 17 PER MINUTE (01/30 341) SpO2: 100 % (01/30 341) O2 Delivery: None (Room Air) (01/30 341) BP: (99)/(41) Temp: [36.5 C (97.7 F)-37.2 C (99 F)] Pulse: [73] Respirations: [17 PER MINUTE] SpO2: [100 %] O2 Delivery: None (Room Air) Vitals: 01/12/17 0635 01/19/17 0600 01/26/17 1327 Weight: 52.7 kg (116 lb 2.9 oz) 53.3 kg (117 lb 9.6 oz) 55 kg (121 lb 4.1 oz) Intake/Output Summary: (Last 24 hours) Intake/Output Summary (Last 24 hours) at 01/30/17 1135 Last data filed at 01/30/17 0900 Gross per 24 hour Intake 4510 ml Output 0 ml Net 4510 ml Stool Occurrence: 1 Oral Diet Order: NPO Last BM Date: 01/29/17 Bladder Accident: 1 (brief changed) Lab: Results for orders placed or performed during the hospital encounter of (from the past 24 hour(s)) POC GLUCOSE Collection Time: 01/29/17 12:35 PM # # Low-High Glucose, POC 131 (H) 70 - 100 MG/DL POC GLUCOSE Collection Time: 01/29/17 5:22 PM # # Low-High Glucose, POC 88 70 - 100 MG/DL POC GLUCOSE Collection Time: 01/29/17 9:52 PM # # Low-High Glucose, POC 111 (H) 70 - 100 MG/DL POC GLUCOSE Collection Time: 01/30/17 2:55 AM # # Low-High Glucose, POC 87 70 - 100 MG/DL CBC Collection Time: 01/30/17 7:25 AM # # Low-High White Blood Cells 3.6 (L) 4.5 - [...] K/UL MPV 8.1 7 - 11 FL BASIC METABOLIC PANEL Collection Time: 01/30/17 7:25 AM # # Low-High Sodium 139 137 - 147 MMOL/L Potassium 4.0 3.5 - 5.1 MMOL/L Chloride 106 98 - 110 MMOL/L CO2 26 21 - 30 MMOL/L Anion Gap 7 3 - 12 Glucose 104 (H) 70 - 100 MG/DL Blood Urea Nitrogen 19 7 - 25 MG/DL Creatinine 0.58 0.4 - 1.00 MG/DL Calcium 9.3 8.5 - 10.6 MG/DL eGFR Non >60 >60 mL/min eGFR >60 >60 mL/min POC GLUCOSE Collection Time: 01/30/17 9:08 AM # # Low-High Glucose, POC 113 (H) 70 - 100 MG/DL Physical Exam VS: BP 99/41 (BP Source: Arm, Left;Arm, Right) Comment: RN notified | Pulse 73 | Temp 36.5 C (97.7 F) | Ht 152.4 cm (60") | Wt 55 kg (121 lb 4.1 oz) | SpO2 100% | BMI 23.68 kg/m2 Gen: No Acute Distress, alertness mildly improved HEENT: sclera anicteric, conjunctiva not injected Neck: full AROM Heart: Regular Rate & Rhythm, no m/g/r Lungs: Clear to auscultation bilaterally, no w/r/r Abdomen: Soft, non-tender, non-distended, +BS; +PEG : No peter Neuro: tic like repetitive motion in face/ hands rubbing face in rhythmic fashion Speech/ Cognitive: global aphasia, speech characterized by automatic responses, inconsistent verbal command follow. Unable to name watch- but able to participate in conversation. 9-15. Motor: mild right hemiparesis comparatively with at least anti-gravity strength in all limbs. Some rubbing of left face/left eye. Therapy Notes & Labs Reviewed. Marcos Pena MD * Madhavi Duke MD - 01/29/2017 1:17 PM CDT Formatting of this note may be different from the original. ATTESTATION I personally performed the de anda portions of the E/M visit, discussed case with resident and concur with resident documentation of history, physical exam, assessment, and treatment plan unless otherwise noted. VS reviewed and stable. SW working on SNF. 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 Phillip is a 66 y/o female who was found to have left frontal parenchymal hemorrhage s/p evacuation and EVD placement and subsequent removal. Rehabilitation: Rehab Dx: IPH Therapy: PT, OT, ST Daily Functional Update: Transfers Device Sit to Stand Transfer: Assistive Device: None (01/29/2017 12:00 PM) Transfer: Sit to Stand: Minimum assistance (01/29/2017 12:00 PM) Gait Device Assist Required Distance Gait: Assistive Device: None (01/29/2017 12:00 PM) Gait: Assist Level: Minimum assistance (01/27/2017 4:31 PM) Gait Distance: 600 feet (sitting rest break between) (01/29/2017 12:00 PM) Dressing Lower Body LE Dressing Assist: Total Assist (01/26/2017 8:45 AM) IPH, Left Frontal -Admitted to the [facility] on 12/22/2016with alarge left frontal parenchymal hemorrhage -S/p Left frontal burrhole craniotomy for evacuation 12/25 and EVD placement -CTA negative for aneurysm or AVM; MRI did not show any obvious enhancing lesion or abnormal vascular flow voids -waxing/ waning mental status initially with stable repeat Head CTs -continue Provigil for neuro-stimulation, at max dose -Global Aphasia: intermittent automatic phrases otherwise non-fluent with poor comprehension; 01/27: Started Aricept for aphasia. Spoke with Neurology about new medication with potential movement disorder- will keep a close eye on any clinical changes. - continues to tolerate -Motor Apraxia, Right Hemiparesis: work with PT, OT Possible Seizure like activity -"unresponsive" episode during therapy -Neuro consulted, appreciate reccs >Continue keppra at increased dose 750mg BID until f/u with neurology >01/22: re consulted Neuro for tic like, rhythmic motion of rubbing face. Seizure like activity v. Drug interaction -Neuro recs EEG- 01/23 -no seizure activity, global encephalopathy Dysphagia -Currently NPO -s/p PEG placement 01/02 -Transitioned to bolus TF's Severe Malnutrition: Continue TF- Dietitian consulted. Hyperglycemia -Recent A1c 5.2 -[facility], not likely to require on discharge Left face discomfort/itching Left Eye irritation Difficult to tell if pt in pain- continues to rub left side of face, will start claritin and eye drops in cause this is caused by allergies. 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 Bowel: continue oral laxatives to promote regular bowel movements Bladder: Continue off Cardura. No current concern for retention. Continue timed voiding for incontinence. Nutrition: NPO, continue TF's Mental Health: consulted neuropsychology to provide support / counseling DVT Prophylaxis: Heparin Resolved Problems: -UTI, Ecoli Faecium, Completed course of treatment with levaquin 01/13 -Hypernatremia, resolved - continue current free water flushes -Urinary Retention, resolved - now off of Cardura, repeat PVRs 01/21 without retention Marcos Pena MD Pager [phone] Subjective No events overnight. Pt resting comfortably in bed. Some rubbing of face/eye noted. with questions on sleep study and swallow study on OP basis. Denies any new issues. Objective Vital Signs: Last Filed Vital Signs: 24 Hour Range BP: 99/65 (01/30 552) Temp: 36.6 C (97.8 F) (01/30 552) Pulse: 88 (01/30 552) Respirations: 20 PER MINUTE (01/30 552) SpO2: 100 % (01/30 552) O2 Delivery: None (Room Air) (01/30 552) BP: (96-99)/(55-65) Temp: [36.6 C (97.8 F)] Pulse: [78-88] Respirations: [20 PER MINUTE] SpO2: [98 %-100 %] O2 Delivery: None (Room Air) Vitals: 01/12/17 0635 01/19/17 0600 01/26/17 1327 Weight: 52.7 kg (116 lb 2.9 oz) 53.3 kg (117 lb 9.6 oz) 55 kg (121 lb 4.1 oz) Intake/Output Summary: (Last 24 hours) Intake/Output Summary (Last 24 hours) at 01/29/17 1317 Last data filed at 01/29/17 0930 Gross per 24 hour Intake 3270 ml Output 0 ml Net 3270 ml Stool Occurrence: 1 Oral Diet Order: NPO Last BM Date: 01/29/17 Bladder Accident: 1 (brief changed) Lab: Results for orders placed or performed during the hospital encounter of (from the past 24 hour(s)) POC GLUCOSE Collection Time: 01/28/17 5:47 PM # # Low-High Glucose, POC 88 70 - 100 MG/DL POC GLUCOSE Collection Time: 01/28/17 10:02 PM # # Low-High Glucose, POC 137 (H) 70 - 100 MG/DL POC GLUCOSE Collection Time: 01/29/17 2:27 AM # # Low-High Glucose, POC 107 (H) 70 - 100 MG/DL POC GLUCOSE Collection Time: 01/29/17 9:27 AM # # Low-High Glucose, POC 106 (H) 70 - 100 MG/DL Physical Exam VS: BP 99/65 (BP Source: Arm, Left) | Pulse 88 | Temp 36.6 C (97.8 F) | Ht 152.4 cm (60") | Wt 55 kg (121 lb 4.1 oz) | SpO2 100% | BMI 23.68 kg/m2 Gen: No Acute Distress, alertness mildly improved HEENT: sclera anicteric, conjunctiva not injected Neck: full AROM Heart: Regular Rate & Rhythm, no m/g/r Lungs: Clear to auscultation bilaterally, no w/r/r Abdomen: Soft, non-tender, non-distended, +BS; +PEG : No peter Neuro: tic like repetitive motion in face/ hands rubbing face in rhythmic fashion Speech/ Cognitive: global aphasia, speech characterized by automatic responses, inconsistent verbal command follow. Unable to name watch 01/27 Motor: mild right hemiparesis comparatively with at least anti-gravity strength in all limbs. Some rubbing of left face/left eye. Therapy Notes & Labs Reviewed. Marcos Pena MD * Betsy Howe - 01/29/2017 12:17 PM CDT SPEECH-LANGUAGE PATHOLOGY REHAB SPEECH DAILY/DISCHARGE NOTE SUMMARY: Pt seen for two 30-minute therapy sessions targeting language, cognition, and dysphagia. Pt's present for both therapy sessions. Provided ongoing education to pt's regarding pt's language, cognitive, and dysphagia deficits. Discussed w/ recommendation that videoswallow take place at next level of care in SNF or as an outpatient. Pt's verbalized understanding w/ recommendations. Please see below for additional details. RECOMMENDATIONS Continue NPO w/ use of PEG Medications through PEG Aggressive oral care utilizing suction throughout Videoswallow at next level of care PLAN: Ongoing INTERNAL CONSULTANT services recommended at the next level of care. Consistent supervision recommended upon discharge as anticipate patient's impaired safety awareness and/or problem solving (or communication) will impact their ability to call for help and anticipate patient's impaired memory & attention will potentially impact their safety. Recommend assist w/ finance & medication management and meal preparation upon discharge secondary to patient's impaired attention and/or memory. FREQUENCY TODAY: 2x ACTIVITIES FOR THE DAY: Targeting sustained attention, pt matched 4 pairs of colored socks for approximately two 1-minute intervals. Pt then required maximal cues in the form of verbal cues and [id number] assistance. Pt was not able to fold socks together despite maximal cues. Pt participated in card-sorting task. Pt not able to sort cards into colored piles despite INTERNAL CONSULTANT models. Pt required maximal cues to attend to task including holding cards and picking up new cards from card pile. Attempted to have pt complete a basic information form targeting attention and language however pt closed eyes and was not participatory in task. Speech Care Center Manager Goals Will improve communication for basic wants and needs with: Not Met Speech Short Term Goals Patient will follow concrete 1-part commands: Not Met Patient will identify object in a field of 2: Not Met Patient responds to yes/no questions regarding personal/ environmental information with nods, gestures, eye blinks, or pointing: Adequate for discharge Will demonstrate confrontation naming with: Adequate for discharge Will perform automatic speech tasks with: (Not met) Will participate in ongoing assessment of swallow bedside: Adequate for discharge Will participate in repeat instrumental swallow evaluation when clinically indicated: Adequate for discharge Therapist: Betsy Howe MS, L/CCC-INTERNAL CONSULTANT [phone] Date: 01/29/2017 * Estelle Dee RN - 01/29/2017 6:37 AM CDT I have reviewed the notes, assessments, and/or procedures performed by Suman Hartley RN and concur with her/his documentation unless otherwise noted. * Kumar Fong RN - 01/28/2017 3:52 PM CDT Continues spouse training on patient care with admistering medications including insulin shot, tube feeding, PEG tube & skin care & etc. is able to follow & perform those tasks with positive feedbacks. Spouse has been very supportive & will to learn/ work on taking care of patient. * Iwona Gill - 01/28/2017 11:39 AM CDT SPEECH-LANGUAGE PATHOLOGY REHAB SPEECH DAILY NOTE SUMMARY: Pt seen for two 30-minute therapy sessions targeting language, cognition, and dysphagia. Pt's present for both therapy sessions. Provided ongoing education to pt's regarding pt's language, cognitive, and dysphagia deficits. Please see below for additional details. RECOMMENDATIONS Continue NPO w/ use of PEG Medications through PEG Aggressive oral care utilizing suction throughout PLAN: Continue current therapy plan. FREQUENCY TODAY: 2x ACTIVITIES FOR THE DAY: Dysphagia: -Ice chips and thin liquid via spoon: Adequate bolus withdrawal, mastication, and AP transfer with minimal cues required. Swallow timing improved and mildly reduced laryngeal elevation. No s/s of aspiration appreciated. Cognition/language: -Card sorting by color using only 2 piles/colors to encourage sustained attention. Pt with approximately 45 seconds of successful sustained attention before requiring maximum cues to complete task. Hand over hand assistance required. -Automatic speech tasks: Pt counted from1-5 on 2/2 occasions, stated the SOY/ ASPEN with INTERNAL CONSULTANT providing occasional starter prompts. -Object Naming: Pt unable to provide spontaneous name for objects in room and unsuccessful with word retrieval after 2 choices provided. -1 step commands: pt followed 3/10 verbal commands with moderate cues. -Matching written word to objecct (FO2)- 66% accuracy and moderate-max cues. Pt read the word "spoon" aloud upon handing her the word card. -Egocentric yes/no questions: correct Speech Care Center Manager Goals Will improve communication for basic wants and needs with: Moderate assist, Progressing Speech Short Term Goals Patient will follow concrete 1-part commands: 60% accuracy, Moderate cues Patient will identify object in a field of 2: 60% accuracy, Moderate cues Patient responds to yes/no questions regarding personal/ environmental information with nods, gestures, eye blinks, or pointin% accuracy, Moderate cues Will demonstrate confrontation naming with: 60% accuracy, Moderate cues Will perform automatic speech tasks with: 60% accuracy, Moderate cues Will participate in ongoing assessment of swallow bedside: Progressing Will participate in repeat instrumental swallow evaluation when clinically indicated: Progressing Therapist: Bharati Ibanez M.S./[facility]-INTERNAL CONSULTANT [id number] Date: 01/28/2017 * Madhavi Duke MD - 01/28/2017 10:04 AM CDT Formatting of this note may be different from the original. ATTESTATION I personally performed the de anda portions of the E/M visit, discussed case with resident and concur with resident documentation of history, physical exam, assessment, and treatment plan unless otherwise noted. Tolerating Aricept. Family decided on SNF placement due to high burden of care. Will ensure has PM& R f/u with Dr. Garcia. 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 Phillip is a 66 y/o female who was found to have left frontal parenchymal hemorrhage s/p evacuation and EVD placement and subsequent removal. Rehabilitation: Rehab Dx: IPH Therapy: PT, OT, ST Daily Functional Update: Transfers Device Sit to Stand Transfer: Assistive Device: Hand Hold Assist (01/27/2017 4:31 PM) Transfer: Sit to Stand: Minimum assistance (01/27/2017 4:31 PM) Gait Device Assist Required Distance Gait: Assistive Device: Hand Hold Assist (01/27/2017 4:31 PM) Gait: Assist Level: Minimum assistance (01/27/2017 4:31 PM) Gait Distance: 200 feet (01/27/2017 4:31 PM) Dressing Lower Body LE Dressing Assist: Total Assist (01/26/2017 8:45 AM) IPH, Left Frontal -Admitted to the [facility] on 12/22/2016with alarge left frontal parenchymal hemorrhage -S/p Left frontal burrhole craniotomy for evacuation 12/25 and EVD placement -CTA negative for aneurysm or AVM; MRI did not show any obvious enhancing lesion or abnormal vascular flow voids -waxing/ waning mental status initially with stable repeat Head CTs -continue Provigil for neuro-stimulation, at max dose -Global Aphasia: intermittent automatic phrases otherwise non-fluent with poor comprehension; 01-27: Started Aricept for aphasia. Spoke with Neurology about new medication with potential movement disorder- will keep a close eye on any clinical changes. -Motor Apraxia, Right Hemiparesis: work with PT, OT Possible Seizure like activity -"unresponsive" episode during therapy -Neuro consulted, appreciate reccs >Continue keppra at increased dose 750mg BID until f/u with neurology >01/22: re consulted Neuro for tic like, rhythmic motion of rubbing face. Seizure like activity v. Drug interaction -Neuro recs EEG- 01/23 -no seizure activity, global encephalopathy Dysphagia -Currently NPO -s/p PEG placement 01/02 -Transitioned to bolus TF's Severe Malnutrition: Continue TF- Dietitian consulted. Hyperglycemia -Recent A1c 5.2 -[facility], not likely to require on discharge Left face discomfort/itching Left Eye irritation Difficult to tell if pt in pain- continues to rub left side of face, will start claritin and eye drops in cause this is caused by allergies. 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 Bowel: continue oral laxatives to promote regular bowel movements Bladder: Continue off Cardura. No current concern for retention. Continue timed voiding for incontinence. Nutrition: NPO, continue TF's Mental Health: consulted neuropsychology to provide support / counseling DVT Prophylaxis: Heparin Resolved Problems: -UTI, Ecoli Faecium, Completed course of treatment with levaquin 01/13 -Hypernatremia, resolved - continue current free water flushes -Urinary Retention, resolved - now off of Cardura, repeat PVRs 01/21 without retention Marcos Pena MD Pager [phone] Subjective No events overnight. Pt resting comfortably in bed. Able to say some automated responses. Some rubbing of face/eye noted. to get family training today then decided on home v. SNF. Denies any new issues. Objective Vital Signs: Last Filed Vital Signs: 24 Hour Range BP: 121/50 (01/28 315) Temp: 36.8 C (98.2 F) (01/28 315) Pulse: 72 (01/28 315) Respirations: 18 PER MINUTE (01/28 315) SpO2: 100 % (01/28 315) O2 Delivery: None (Room Air) (01/28 315) BP: (108-121)/(50-61) Temp: [36.5 C (97.7 F)-36.9 C (98.4 F)] Pulse: [72-97] Respirations: [18 PER MINUTE] SpO2: [92 %-100 %] O2 Delivery: None (Room Air) Vitals: 01/12/17 0635 01/19/17 0600 01/26/17 1327 Weight: 52.7 kg (116 lb 2.9 oz) 53.3 kg (117 lb 9.6 oz) 55 kg (121 lb 4.1 oz) Intake/Output Summary: (Last 24 hours) Intake/Output Summary (Last 24 hours) at 01/28/17 1004 Last data filed at 01/28/17 0600 Gross per 24 hour Intake 2900 ml Output 0 ml Net 2900 ml Stool Occurrence: 1 Oral Diet Order: NPO Last BM Date: 01/28/17 Bladder Accident: 1 (brief changed) Lab: Results for orders placed or performed during the hospital encounter of (from the past 24 hour(s)) POC GLUCOSE Collection Time: 01/27/17 12:09 PM # # Low-High Glucose, POC 130 (H) 70 - 100 MG/DL POC GLUCOSE Collection Time: 01/27/17 9:34 PM # # Low-High Glucose, POC 134 (H) 70 - 100 MG/DL POC GLUCOSE Collection Time: 01/28/17 3:18 AM # # Low-High Glucose, POC 95 70 - 100 MG/DL CBC Collection Time: 01/28/17 7:17 AM # # Low-High White Blood Cells 3.5 (L) 4.5 - 11.0 K/UL RBC 3.35 (L) 4.0 - 5.0 M/UL Hemoglobin 10.8 (L) 12.0 - 15.0 GM/DL Hematocrit 30.9 (L) 36 - 45 % MCV 92.2 80 - 100 FL MCH 32.3 26 - 34 PG MCHC 35.0 32.0 - 36.0 G/DL RDW 17.4 (H) 11 - 15 % Platelet Count 181 150 - 400 K/UL MPV 8.1 7 - 11 FL BASIC METABOLIC PANEL Collection Time: 01/28/17 7:17 AM # # Low-High Sodium 139 137 - 147 MMOL/L Potassium 4.0 3.5 - 5.1 MMOL/L Chloride 107 98 - 110 MMOL/L CO2 25 21 - 30 MMOL/L Anion Gap 7 3 - 12 Glucose 107 (H) 70 - 100 MG/DL Blood Urea Nitrogen 19 7 - 25 MG/DL Creatinine 0.56 0.4 - 1.00 MG/DL Calcium 9.3 8.5 - 10.6 MG/DL eGFR Non >60 >60 mL/min eGFR >60 >60 mL/min Physical Exam VS: BP 121/50 (BP Source: Arm, Left) | Pulse 72 | Temp 36.8 C (98.2 F) | Ht 152.4 cm (60") | Wt 55 kg (121 lb 4.1 oz) | SpO2 100% | BMI 23.68 kg/m2 Gen: No Acute Distress, alertness mildly improved HEENT: sclera anicteric, conjunctiva not injected Neck: full AROM Heart: Regular Rate & Rhythm, no m/g/r Lungs: Clear to auscultation bilaterally, no w/r/r Abdomen: Soft, non-tender, non-distended, +BS; +PEG : No peter Neuro: tic like repetitive motion in face/ hands rubbing face in rhythmic fashion Speech/ Cognitive: global aphasia, speech characterized by automatic responses, inconsistent verbal command follow. Unable to name watch 01/27 Motor: mild right hemiparesis comparatively with at least anti-gravity strength in all limbs. Some rubbing of left face/left eye. Therapy Notes & Labs Reviewed. Marcos Pena MD * Suman Hartley RN - 01/28/2017 6:50 AM CDT Pt's spouse administered TF at 2200 with moderate assist and prompting. Pt spouse asked appropriate questions and demonstrated willingness to participate in pt's care. Will continue to encourage and support. * Estelle Dee RN - 01/28/2017 6:00 AM CDT I have reviewed the notes, assessments, and/or procedures performed by Suman Hartley RN and concur with her/his documentation unless otherwise noted. * Betsy Howe - 01/27/2017 11:24 AM CDT SPEECH-LANGUAGE PATHOLOGY REHAB SPEECH DAILY NOTE SUMMARY: Pt seen for two 30-minute therapy sessions targeting language, cognition, and dysphagia. Pt's present for both therapy sessions. Provided ongoing education to pt's regarding pt's language, cognitive, and dysphagia deficits. Please see below for additional details. RECOMMENDATIONS Continue NPO w/ use of PEG Medications through PEG Aggressive oral care utilizing suction throughout PLAN: Continue current therapy plan. FREQUENCY TODAY: 2x ACTIVITIES FOR THE DAY: Cognition/language: Pt required maximal cues to attend to simple task of matching card color to one of five colored cards on table. Pt was successful w/ task independently in 2 instances. Pt required [id number] assistance for additional trials. Pt also required cues to maintain alertness at end of task as pt closing eyes and appearing to fall asleep. Pt attended to magazine for approximately 1 minute. Pt then required maximal cues to attend to task. Pt attended to task of filling out simple personal information form for approximately 2 minutes. Pt clearly wrote her first name and portion of last name. Pt wrote "[birth year]" for birthday but was not able to write additional information despite cues. Speech Care Center Manager Goals Will improve communication for basic wants and needs with: Moderate assist, Progressing Speech Short Term Goals Patient will follow concrete 1-part commands: 60% accuracy, Moderate cues Patient will identify object in a field of 2: 60% accuracy, Moderate cues Patient responds to yes/no questions regarding personal/ environmental information with nods, gestures, eye blinks, or pointin% accuracy, Moderate cues Will demonstrate confrontation naming with: 60% accuracy, Moderate cues Will perform automatic speech tasks with: 60% accuracy, Moderate cues Will participate in ongoing assessment of swallow bedside: Progressing Will participate in repeat instrumental swallow evaluation when clinically indicated: Progressing Therapist: Betsy Howe MS, L/CCC-INTERNAL CONSULTANT [phone] Date: 01/27/2017 * Debbi Lyle - 01/27/2017 10:42 AM CDT CLINICAL NUTRITION Clinical Nutrition Follow-Up Summary Nutrition Assessment of Patient: Malnutrition Assessment: Malnutrition present Malnutrition Context: ICD-10 code E43: Chronic illness/Severe malnutrition Estimated Calorie Needs: 1222-8906 (28-30 kcal/kg dry wt 55.4kg [facility] Admit) Estimated Protein Needs: 65-75 (1.2-1.4g/kg dry wt 55.4kg) Oral Diet Order: NPO 3-day EN avg: Intake (calories) Daily Average : 1310 kilocalories (86% of minimum goal) Intake (protein) Daily Average : 72 grams (100% of goal) 66 yo female w/ PMH including dementia, chronic back pain, TIA; transferred to [facility] 12/22 with large left frontal parenchymal hemorrhage on AC Plavix and ASA for hx TIA 3 mos ago. PEG placed 01/02. Isosource 1.5 EN initiated 12/25 with ongoing toleration reported. EN avg 12/29/-01/04 met 46-55% and 1 pkt Prosource daily was added to aid in meeting protein needs in presence of malnutrition. EN infusion improved 01/10-01/19, meeting 90-96% of est needs with continued toleration. Recs changed to discontinue Prosource upon discharge due to Medicare requirements and current order exceeding 100% of protein needs at goal ([facility] following for Home EN). Recent 3-day EN average continues to meet majority of pt needs with 1 Prosource daily. Last BM 01/27. Weight remains stable during this admit with slight increase of ~4#, reflected in +net I/O of +3.3L 01/26 (+59L since admit). No edema or pressure injuries noted. Recommendation: If meeting 3-4 cartons/day of Isosource 1.5, discontinue 1 pkt of Prosource daily. Upon discharge home, discontinue Prosource packet daily and modify TF order to 4 cartons of Isosource 1.5 total daily ( 1 carton, 4x/day ) + 30-60 ml water flush before and after each bolus. Add 165ml water bolus q8h between feedings or per team. Provides 1500 kcal, 68g protein, and 760ml free water from EN (total fluids of 1495ml based on 1ml/kcal fluids daily and 30 ml water flushes). Intervention / Plan: Monitor EN rate/tolerance. Monitor wt, labs, skin, gi, meds, fluids. Nutrition Diagnosis: Nutrition Diagnosis: Altered GI function Etiology: swallowing difficulty Signs & Symptoms: NPO with EN Goals: EN tolerated and meeting >85% of nutritional needs Time Frame: Within 5 Days Status: Partially met;Ongoing Debbi Lyle RD, LD *[id number] * Madhavi Duke MD - 01/27/2017 8:55 AM CDT Formatting of this note may be different from the original. ATTESTATION I personally performed the de anda portions of the E/M visit, discussed case with resident and concur with resident documentation of history, physical exam, assessment, and treatment plan unless otherwise noted. Started Aricept today for neurostimulation and aphasia. Family mtg with spouse yesterday, he will complete 24-48hr cares and decide if can manage burden of care at home. Per d/w rehab team at conference, patient making progress towards goal of min A with wheelchair, lift, ramp, commode, hospital bed. Tentative discharge date pending family training. Progress this week, essentially she is min A for mobility and ADLs, but performance can be variable and she has low initiation. Recommending home health therapies, nursing and private duty caregivers at time of discharge from rehab. If burden of care too high, may have to consider SNF discharge for ongoing recovery and time. Time spent with patient, majority spent on counseling patient/family and coordination of rehab plan of care: 25 minutes Time spent coordination care/discharge in team huddle/conference: 10 minutes Total time: 35 minutes Staff name: Madhavi Duke MD Date: 01/27/2017 Physical Medicine & Rehabilitation Progress Note Today's Date: 01/27/2017 Admission Date: 01/06/2017 LOS: 21 days Principal Problem: Nontraumatic cortical hemorrhage of left cerebral hemisphere (HCC) Active Problems: Dysphagia Intraparenchymal hematoma of brain (HCC) Aphasia 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) Impaired mobility and activities of daily living Normocytic anemia Apraxia Assessment/Plan: Mrs. Phillip is a 66 y/o female who was found to have left frontal parenchymal hemorrhage s/p evacuation and EVD placement and subsequent removal. Rehabilitation: Rehab Dx: IPH Therapy: PT, OT, ST Daily Functional Update: Transfers Device Sit to Stand Transfer: Assistive Device: Hand Hold Assist (01/26/2017 9:45 AM) Transfer: Sit to Stand: Maximum assistance (01/23/2017 1:20 PM) Gait Device Assist Required Distance Gait: Assistive Device: Hand Hold Assist (01/26/2017 9:45 AM) Gait: Assist Level: Minimum assistance (01/26/2017 9:45 AM) Gait Distance: 160 feet (01/26/2017 9:45 AM) Dressing Lower Body LE Dressing Assist: Total Assist (01/26/2017 8:45 AM) IPH, Left Frontal -Admitted to the [facility] on 12/22/2016with alarge left frontal parenchymal hemorrhage -S/p Left frontal burrhole craniotomy for evacuation 12/25 and EVD placement -CTA negative for aneurysm or AVM; MRI did not show any obvious enhancing lesion or abnormal vascular flow voids -waxing/ waning mental status initially with stable repeat Head CTs -continue Provigil for neuro-stimulation, at max dose -Global Aphasia: intermittent automatic phrases otherwise non-fluent with poor comprehension; 01-27: Started Aricept for aphasia. Spoke with Neurology about new medication with potential movement disorder- will keep a close eye on any clinical changes. -Motor Apraxia, Right Hemiparesis: work with PT, OT Possible Seizure like activity -"unresponsive" episode during therapy -Neuro consulted, appreciate reccs >Continue keppra at increased dose 750mg BID until f/u with neurology >01/22: re consulted Neuro for tic like, rhythmic motion of rubbing face. Seizure like activity v. Drug interaction -Neuro recs EEG- 01/23 -no seizure activity, global encephalopathy Dysphagia -Currently NPO -s/p PEG placement 01/02 -Transitioned to bolus TF's Severe Malnutrition: Continue TF- Dietitian consulted. Hyperglycemia -Recent A1c 5.2 -[facility], not likely to require on discharge Left face discomfort/itching Left Eye irritation Difficult to tell if pt in pain- continues to rub left side of face, will start claritin and eye drops in cause this is caused by allergies. 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 Bowel: continue oral laxatives to promote regular bowel movements Bladder: Continue off Cardura. No current concern for retention. Continue timed voiding for incontinence. Nutrition: NPO, continue TF's Mental Health: consulted neuropsychology to provide support / counseling DVT Prophylaxis: Heparin Resolved Problems: -UTI, Ecoli Faecium, Completed course of treatment with levaquin 01/13 -Hypernatremia, resolved - continue current free water flushes -Urinary Retention, resolved - now off of Cardura, repeat PVRs 01/21 without retention Marcos Pena MD Pager [phone] Subjective No events overnight. Pt resting comfortably in bed. Able to say some automated responses- still with difficultly naming objects. Some rubbing of face/eye noted. Denies any new issues. Objective Vital Signs: Last Filed Vital Signs: 24 Hour Range BP: 109/83 (01/26 1654) Temp: 36.7 C (98 F) (01/26 1654) Pulse: 85 (01/26 1654) Respirations: 18 PER MINUTE (01/26 1654) SpO2: 99 % (01/26 1654) O2 Delivery: None (Room Air) (01/26 1654) BP: (109)/(83) Temp: [36.7 C (98 F)] Pulse: [85] Respirations: [18 PER MINUTE] SpO2: [99 %] O2 Delivery: None (Room Air) Vitals: 01/12/17 0635 01/19/17 0600 01/26/17 1327 Weight: 52.7 kg (116 lb 2.9 oz) 53.3 kg (117 lb 9.6 oz) 55 kg (121 lb 4.1 oz) Intake/Output Summary: (Last 24 hours) Intake/Output Summary (Last 24 hours) at 01/27/17 0855 Last data filed at 01/26/17 2140 Gross per 24 hour Intake 2350 ml Output 0 ml Net 2350 ml Stool Occurrence: 1 Oral Diet Order: NPO Last BM Date: 01/27/17 Bladder Accident: 1 (brief changed) Lab: Results for orders placed or performed during the hospital encounter of (from the past 24 hour(s)) POC GLUCOSE Collection Time: 01/26/17 12:02 PM # # Low-High Glucose, POC 133 (H) 70 - 100 MG/DL POC GLUCOSE Collection Time: 01/26/17 12:31 PM # # Low-High Glucose, POC 114 (H) 70 - 100 MG/DL POC GLUCOSE Collection Time: 01/26/17 5:12 PM # # Low-High Glucose, POC 93 70 - 100 MG/DL POC GLUCOSE Collection Time: 01/26/17 5:35 PM # # Low-High Glucose, POC 99 70 - 100 MG/DL POC GLUCOSE Collection Time: 01/27/17 7:53 AM # # Low-High Glucose, POC 103 (H) 70 - 100 MG/DL Physical Exam VS: BP 109/83 (BP Source: Arm, Left) | Pulse 85 | Temp 36.7 C (98 F) | Ht 152.4 cm (60") | Wt 55 kg (121 lb 4.1 oz) | SpO2 99% | BMI 23.68 kg/m2 Gen: No Acute Distress, alertness mildly improved HEENT: sclera anicteric, conjunctiva not injected Neck: full AROM Heart: Regular Rate & Rhythm, no m/g/r Lungs: Clear to auscultation bilaterally, no w/r/r Abdomen: Soft, non-tender, non-distended, +BS; +PEG : No peter Neuro: tic like repetitive motion in face/ hands rubbing face in rhythmic fashion Speech/ Cognitive: global aphasia, speech characterized by automatic responses, inconsistent verbal command follow. Unable to name watch. Motor: mild right hemiparesis comparatively with at least anti-gravity strength in all limbs. Some rubbing of left face/left eye. Therapy Notes & Labs Reviewed. Marcos Pena MD * Betsy Howe - 01/26/2017 4:05 PM CDT SPEECH-LANGUAGE PATHOLOGY REHAB SPEECH DAILY NOTE SUMMARY: Pt seen for two 30-minute therapy sessions targeting language, cognition, and dysphagia. Pt's present for both therapy sessions. Please see below for additional details. RECOMMENDATIONS Continue NPO w/ use of PEG Medications through PEG Aggressive oral care utilizing suction throughout PLAN: Continue current therapy plan. FREQUENCY TODAY: 2x ACTIVITIES FOR THE DAY: Cognition: Pt w/ increased participation in PM therapy session. Pt attended to task w/ minimal-moderate cues of picking up [employer] cards. Pt named 3/4 cards. Pt identified 2/4 [employer] cards when INTERNAL CONSULTANT asked pt to show specific cards. Language: Pt was 80% accurate answering simple, egocentric yes/no questions. This was improvement over previous therapy sessions. Pt completed 1/7 one-step commands independently. A model was facilitating in 1 instance. Pt required [id number] assistance in 5 trials. Dysphagia: Oral care provided utilizing suction throughout w/ toothbrush and toothpaste. Limited participation in oral care this date. Trials of ice chips provided, thin liquids via teaspoon, and thin liquids via cup sip provided. Bolus withdraw, formation, and AP transfer were functional. Mastication time was minimally prolonged w/ ice chips. Swallow initiation was [id number] delayed w/ adequate hyolaryngeal elevation as assessed via laryngeal palpation. 1 throat clear appreciated w/ thin liquids via cup. Vocal quality clear throughout trials. Provided pt and pt's w/ education regarding videoswallow or FEES testing when pt appropriate whether in rehab setting or upon discharge w/ home-health/SNF. Despite decreased s/s aspiration in PO trials in therapy sessions, questions if pt cognitively could follow swallow strategies and/or maintain alertness for adequate PO intake. Speech Care Center Manager Goals Will improve communication for basic wants and needs with: Moderate assist, Progressing Speech Short Term Goals Patient will follow concrete 1-part commands: 60% accuracy, Moderate cues Patient will identify object in a field of 2: 60% accuracy, Moderate cues Patient responds to yes/no questions regarding personal/ environmental information with nods, gestures, eye blinks, or pointin% accuracy, Moderate cues Will demonstrate confrontation naming with: 60% accuracy, Moderate cues Will perform automatic speech tasks with: 60% accuracy, Moderate cues Will participate in ongoing assessment of swallow bedside: Progressing Will participate in repeat instrumental swallow evaluation when clinically indicated: Progressing Therapist: Betsy Howe MS, L/CCC-INTERNAL CONSULTANT [phone] Date: 01/26/2017 * Madhavi Duke MD - 01/26/2017 10:04 AM CDT Formatting of this note may be different from the original. ATTESTATION I personally performed the de anda portions of the E/M visit, discussed case with resident and concur with resident documentation of history, physical exam, assessment, and treatment plan unless otherwise noted. Labs and VS reviewed and stable. reports she slept well, less face rubbing, more verbalizations since this weekend. My additions to the resident's note are in the text and highlighted in blue. Staff name: Madhavi Duke MD Date: 01/26/2017 Physical Medicine & Rehabilitation Progress Note Today's Date: 01/26/2017 Admission Date: 01/06/2017 LOS: 20 days Principal Problem: Nontraumatic cortical hemorrhage of left cerebral hemisphere (HCC) Active Problems: Dysphagia Intraparenchymal hematoma of brain (HCC) Aphasia 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) Impaired mobility and activities of daily living Normocytic anemia Apraxia Assessment/Plan: Mrs. Phillip is a 66 y/o female who was found to have left frontal parenchymal hemorrhage s/p evacuation and EVD placement and subsequent removal. Rehabilitation: Rehab Dx: IPH Therapy: PT, OT, ST Daily Functional Update: Transfers Device Sit to Stand Transfer: Assistive Device: Hand Hold Assist (01/23/2017 1:20 PM) Transfer: Sit to Stand: Maximum assistance (01/23/2017 1:20 PM) Gait Device Assist Required Distance Gait: Assistive Device: Hand Hold Assist (01/23/2017 1:20 PM) Gait: Assist Level: Moderate assistance (01/23/2017 1:20 PM) Gait Distance: 60 feet (01/23/2017 1:20 PM) Dressing Lower Body LE Dressing Assist: Maximum Assist (01/20/2017 8:30 AM) IPH, Left Frontal -Admitted to the [facility] on 12/22/2016with alarge left frontal parenchymal hemorrhage -S/p Left frontal burrhole craniotomy for evacuation 12/25 and EVD placement -CTA negative for aneurysm or AVM; MRI did not show any obvious enhancing lesion or abnormal vascular flow voids -waxing/ waning mental status initially with stable repeat Head CTs -continue Provigil for neuro-stimulation, at max dose -Global Aphasia: intermittent automatic phrases otherwise non-fluent with poor comprehension; consider Aricept in future. Will need to wait for completion of seizure like activity work up and discuss with neurology use of cholinergic medication in setting of potential movement disorder. Will re-evaluate this week with Neuro input. -Motor Apraxia, Right Hemiparesis: work with PT, OT Possible Seizure like activity -"unresponsive" episode during therapy -Neuro consulted, appreciate reccs >Continue keppra at increased dose 750mg BID until f/u with neurology >01/22: re consulted Neuro for tic like, rhythmic motion of rubbing face. Seizure like activity v. Drug interaction -Neuro recs EEG- 01/23 -no seizure activity, global encephalopathy Dysphagia -Currently NPO -s/p PEG placement 01/02 -Transitioned to bolus TF's Severe Malnutrition: Continue TF- Dietitian consulted. Hyperglycemia -Recent A1c 5.2 -[facility], not likely to require on discharge Left face discomfort/itching Left Eye irritation Difficult to tell if pt in pain- continues to rub left side of face, will start claritin and eye drops in cause this is caused by allergies. 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 Bowel: continue oral laxatives to promote regular bowel movements Bladder: Continue off Cardura. No current concern for retention. Continue timed voiding for incontinence. Nutrition: NPO, continue TF's Mental Health: consulted neuropsychology to provide support / counseling DVT Prophylaxis: Heparin Resolved Problems: -UTI, Ecoli Faecium, Completed course of treatment with levaquin 01/13 -Hypernatremia, resolved - continue current free water flushes -Urinary Retention, resolved - now off of Cardura, repeat PVRs 01/21 without retention Marcos Pena MD Pager [phone] Subjective No events overnight. Pt receiving tube feeds this am. reporting patient sleeping well and able to be more communicative. Reports resolution of face itching/rubbing. Denies any new issues. Objective Vital Signs: Last Filed Vital Signs: 24 Hour Range BP: 117/88 (01/27 352) Temp: 36.8 C (98.3 F) (01/27 352) Pulse: 76 (01/27 352) Respirations: 18 PER MINUTE (01/27 352) SpO2: 98 % (01/27 352) O2 Delivery: None (Room Air) (01/27 352) BP: (95-117)/(56-88) Temp: [36.8 C (98.2 F)-36.8 C (98.3 F)] Pulse: [76-89] Respirations: [18 PER MINUTE] SpO2: [98 %] O2 Delivery: None (Room Air) Vitals: 01/06/17 1619 01/12/17 0635 01/19/17 0600 Weight: 52.1 kg (114 lb 14.4 oz) 52.7 kg (116 lb 2.9 oz) 53.3 kg (117 lb 9.6 oz ) Intake/Output Summary: (Last 24 hours) Intake/Output Summary (Last 24 hours) at 01/26/17 1004 Last data filed at 01/26/17 0826 Gross per 24 hour Intake 3250 ml Output 1 ml Net 3249 ml Stool Occurrence: 1 Oral Diet Order: NPO Last BM Date: 01/25/17 Bladder Accident: 1 (brief changed) Lab: Results for orders placed or performed during the hospital encounter of (from the past 24 hour(s)) POC GLUCOSE Collection Time: 01/25/17 12:17 PM # # Low-High Glucose, POC 132 (H) 70 - 100 MG/DL POC GLUCOSE Collection Time: 01/25/17 5:24 PM # # Low-High Glucose, POC 78 70 - 100 MG/DL POC GLUCOSE Collection Time: 01/25/17 10:26 PM # # Low-High Glucose, POC 113 (H) 70 - 100 MG/DL POC GLUCOSE Collection Time: 01/26/17 2:57 AM # # Low-High Glucose, POC 100 70 - 100 MG/DL CBC Collection Time: 01/26/17 8:00 AM # # Low-High White Blood Cells 3.6 (L) 4.5 - 11.0 K/UL RBC 3.53 (L) 4.0 - 5.0 M/UL Hemoglobin 10.9 (L) 12.0 - 15.0 GM/DL Hematocrit 32.8 (L) 36 - 45 % MCV 92.9 80 - 100 FL MCH 31.0 26 - 34 PG MCHC 33.3 32.0 - 36.0 G/DL RDW 17.2 (H) 11 - 15 % Platelet Count 190 150 - 400 K/UL MPV 7.9 7 - 11 FL BASIC METABOLIC PANEL Collection Time: 01/26/17 8:00 AM # # Low-High Sodium 139 137 - 147 MMOL/L Potassium 4.2 3.5 - 5.1 MMOL/L Chloride 107 98 - 110 MMOL/L CO2 27 21 - 30 MMOL/L Anion Gap 5 3 - 12 Glucose 107 (H) 70 - 100 MG/DL Blood Urea Nitrogen 15 7 - 25 MG/DL Creatinine 0.61 0.4 - 1.00 MG/DL Calcium 9.3 8.5 - 10.6 MG/DL eGFR Non >60 >60 mL/min eGFR >60 >60 mL/min POC GLUCOSE Collection Time: 01/26/17 8:02 AM # # Low-High Glucose, POC 109 (H) 70 - 100 MG/DL Physical Exam VS: BP 117/88 (BP Source: Arm, Left) | Pulse 76 | Temp 36.8 C (98.3 F) | Ht 152.4 cm (60") | Wt 53.3 kg (117 lb 9.6 oz) | SpO2 98% | BMI 22.97 kg/m2 Gen: No Acute Distress, alertness mildly improved HEENT: sclera anicteric, conjunctiva not injected Neck: full AROM Heart: Regular Rate & Rhythm, no m/g/r Lungs: Clear to auscultation bilaterally, no w/r/r Abdomen: Soft, non-tender, non-distended, +BS; +PEG : No peter Neuro: tic like repetitive motion in face/ hands rubbing face in rhythmic fashion Speech/ Cognitive: global aphasia, speech characterized by automatic responses, inconsistent verbal command follow. Unable to name watch. Motor: mild right hemiparesis comparatively with at least anti-gravity strength in all limbs Therapy Notes & Labs Reviewed. Marcos Pena MD * Marcos Roque - 01/25/2017 11:30 AM CDT PHYSICAL THERAPY MOBILITY NOTE Patient participated in supplemental activity with a field service poultry technician as directed by a rehabilitation therapist. Aide: Marcos Roque Date: 01/25/2017 * Didi Valerio MD - 01/25/2017 9:15 AM CDT Formatting of this note may be different from the original. 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 Awaiting Neruology recs Sun: Optho recs appreciated, but [facility] does not carry Pataday/Zaditor , suggested Cromolyn drops so this was ordered in both eyes BID, along with Refresh BID Mrs. Phillip is a 66 y/o female who was found to have left frontal parenchymal hemorrhage s/p evacuation and EVD placement and subsequent removal. Rehabilitation: Rehab Dx: [facility] Therapy: PT, OT, ST Daily Functional Update: Transfers Device Sit to Stand Transfer: Assistive Device: Hand Hold Assist (01/23/2017 1:20 PM) Transfer: Sit to Stand: Maximum assistance (01/23/2017 1:20 PM) Gait Device Assist Required Distance Gait: Assistive Device: Hand Hold Assist (01/23/2017 1:20 PM) Gait: Assist Level: Moderate assistance (01/23/2017 1:20 PM) Gait Distance: 60 feet (01/23/2017 1:20 PM) Dressing Lower Body LE Dressing Assist: Maximum Assist (01/20/2017 8:30 AM) IPH, Left Frontal -Admitted to the [facility] on 12/22/2016with alarge left frontal parenchymal hemorrhage -S/p Left frontal burrhole craniotomy for evacuation 12/25 and EVD placement -CTA negative for aneurysm or AVM; MRI did not show any obvious enhancing lesion or abnormal vascular flow voids -waxing/ waning mental status initially with stable repeat Head CTs -continue Provigil for neuro-stimulation, at max dose -Global Aphasia: intermittent automatic phrases otherwise non-fluent with poor comprehension; consider Aricept in future. Will need to wait for completion of seizure like activity work up and discuss with neurology use of cholinergic medication in setting of potential movement disorder. Will re-evaluate next week. -Motor Apraxia, Right Hemiparesis: work with PT, OT Possible Seizure like activity -"unresponsive" episode during therapy -Neuro consulted, appreciate reccs >Continue keppra at increased dose 750mg BID until f/u with neurology >01/22: re consulted Neuro for tic like, rhythmic motion of rubbing face. Seizure like activity v. Drug interaction -Neuro recs EEG- will schedule for 01/23. Dysphagia -Currently NPO -s/p PEG placement 01/02 -Transitioned to bolus TF's Severe Malnutrition: Continue TF- Dietitian consulted. Hyperglycemia -Recent A1c 5.2 -[facility], not likely to require on discharge Left face discomfort/itching Left Eye irritation Difficult to tell if pt in pain- continues to rub left side of face, will start claritin and eye drops in cause this is caused by allergies. 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 Bowel: continue oral laxatives to promote regular bowel movements Bladder: Continue off Cardura. No current concern for retention. Continue timed voiding for incontinence. Nutrition: NPO, continue TF's Mental Health: consulted neuropsychology to provide support / counseling DVT Prophylaxis: Heparin Resolved Problems: -UTI, Ecoli Faecium, Completed course of treatment with levaquin 01/13 -Hypernatremia, resolved - continue current free water flushes -Urinary Retention, resolved - now off of Cardura, repeat PVRs 01/21 without retention Didi Valerio MD Pager [phone] Subjective No events overnight. Pt in wheelchair resting comfortably. Sleepy but resting comfortable and arousable. Awake but not communicative this am. Her spouse reports she was much more verbal and can name her spouse and say her birthday. She has short phrases but somewhat incomplete thoughts. Pt looks to be in NAD. Discussed above plan for opthalmologic concerns. Objective Vital Signs: Last Filed Vital Signs: 24 Hour Range BP: 118/39 (01/26 256) Temp: 36.9 C (98.4 F) (01/26 256) Pulse: 71 (01/26 256) Respirations: 18 PER MINUTE (01/26 256) SpO2: 100 % (01/26 256) O2 Delivery: None (Room Air) (01/26 256) BP: (118-121)/(39-82) Temp: [36.9 C (98.4 F)-37.3 C (99.1 F)] Pulse: [71-93] Respirations: [16 PER MINUTE-18 PER MINUTE] SpO2: [100 %] O2 Delivery: None (Room Air) Vitals: 01/06/17 1619 01/12/17 0635 01/19/17 0600 Weight: 52.1 kg (114 lb 14.4 oz) 52.7 kg (116 lb 2.9 oz) 53.3 kg (117 lb 9.6 oz ) Intake/Output Summary: (Last 24 hours) Intake/Output Summary (Last 24 hours) at 01/25/17 0915 Last data filed at 01/25/17 0800 Gross per 24 hour Intake 2250 ml Output 1 ml Net 2249 ml Stool Occurrence: 1 Oral Diet Order: NPO Last BM Date: 01/25/17 Bladder Accident: 1 (brief changed) Lab: Results for orders placed or performed during the hospital encounter of (from the past 24 hour(s)) POC GLUCOSE Collection Time: 01/24/17 12:24 PM # # Low-High Glucose, POC 125 (H) 70 - 100 MG/DL POC GLUCOSE Collection Time: 01/24/17 5:48 PM # # Low-High Glucose, POC 90 70 - 100 MG/DL POC GLUCOSE Collection Time: 01/24/17 9:38 PM # # Low-High Glucose, POC 172 (H) 70 - 100 MG/DL POC GLUCOSE Collection Time: 01/25/17 2:41 AM # # Low-High Glucose, POC 81 70 - 100 MG/DL POC GLUCOSE Collection Time: 01/25/17 6:54 AM # # Low-High Glucose, POC 94 70 - 100 MG/DL Physical Exam VS: BP (!) 118/39 (BP Source: Arm, Left) | Pulse 71 | Temp 36.9 C (98.4 F) | Ht 152.4 cm (60") | Wt 53.3 kg (117 lb 9.6 oz) | SpO2 100% | BMI 22.97 kg/m2 Gen: No Acute Distress, alertness mildly improved HEENT: sclera anicteric, conjunctiva not injected Neck: full AROM Heart: Regular Rate & Rhythm, no m/g/r Lungs: Clear to auscultation bilaterally, no w/r/r Abdomen: Soft, non-tender, non-distended, +BS; +PEG : No peter Neuro: tic like repetitive motion in face/ hands rubbing face in rhythmic fashion Speech/ Cognitive: global aphasia, speech characterized by automatic responses, inconsistent verbal command follow. + naming of brush Motor: mild right hemiparesis comparatively with at least anti-gravity strength in all limbs Therapy Notes & Labs Reviewed. Didi Valerio MD Associated attestation - Kevin Russ MD - 01/25/2017 8:18 PM CDT Rehabilitation Medicine Attending Physician Attestation: I personally performed de anda portions of the history and exam. I discussed the case with the resident and concur with the resident's documentation of history, physical assessment and treatment plan unless otherwise noted. Kevin Russ MD * Marcos Roque - 01/24/2017 3:00 PM CDT PHYSICAL THERAPY MOBILITY NOTE Patient participated in supplemental activity with a field service poultry technician as directed by a rehabilitation therapist. Aide: Marcos Roque Date: 01/24/2017 * Didi Valerio MD - 01/24/2017 10:01 AM CDT Formatting of this note may be different from the original. 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 Awaiting Neruology recs Mrs. Phillip is a 66 y/o female who was found to have left frontal parenchymal hemorrhage s/p evacuation and EVD placement and subsequent removal. Rehabilitation: Rehab Dx: [facility] Therapy: PT, OT, ST Daily Functional Update: Transfers Device Sit to Stand Transfer: Assistive Device: Hand Hold Assist (01/23/2017 1:20 PM) Transfer: Sit to Stand: Maximum assistance (01/23/2017 1:20 PM) Gait Device Assist Required Distance Gait: Assistive Device: Hand Hold Assist (01/23/2017 1:20 PM) Gait: Assist Level: Moderate assistance (01/23/2017 1:20 PM) Gait Distance: 60 feet (01/23/2017 1:20 PM) Dressing Lower Body LE Dressing Assist: Maximum Assist (01/20/2017 8:30 AM) IPH, Left Frontal -Admitted to the [facility] on 12/22/2016with alarge left frontal parenchymal hemorrhage -S/p Left frontal burrhole craniotomy for evacuation 12/25 and EVD placement -CTA negative for aneurysm or AVM; MRI did not show any obvious enhancing lesion or abnormal vascular flow voids -waxing/ waning mental status initially with stable repeat Head CTs -continue Provigil for neuro-stimulation, at max dose -Global Aphasia: intermittent automatic phrases otherwise non-fluent with poor comprehension; consider Aricept in future. Will need to wait for completion of seizure like activity work up and discuss with neurology use of cholinergic medication in setting of potential movement disorder. Will re-evaluate next week. -Motor Apraxia, Right Hemiparesis: work with PT, OT Possible Seizure like activity -"unresponsive" episode during therapy -Neuro consulted, appreciate reccs >Continue keppra at increased dose 750mg BID until f/u with neurology >01/22: re consulted Neuro for tic like, rhythmic motion of rubbing face. Seizure like activity v. Drug interaction -Neuro recs EEG- will schedule for 01/23. Dysphagia -Currently NPO -s/p PEG placement 01/02 -Transitioned to bolus TF's Severe Malnutrition: Continue TF- Dietitian consulted. Hyperglycemia -Recent A1c 5.2 -[facility], not likely to require on discharge Left face discomfort/itching Left Eye irritation Difficult to tell if pt in pain- continues to rub left side of face, will start claritin and eye drops in cause this is caused by allergies. 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 Bowel: continue oral laxatives to promote regular bowel movements Bladder: Continue off Cardura. No current concern for retention. Continue timed voiding for incontinence. Nutrition: NPO, continue TF's Mental Health: consulted neuropsychology to provide support / counseling DVT Prophylaxis: Heparin Resolved Problems: -UTI, Ecoli Faecium, Completed course of treatment with levaquin 01/13 -Hypernatremia, resolved - continue current free water flushes -Urinary Retention, resolved - now off of Cardura, repeat PVRs 01/21 without retention Didi Valerio MD Pager [phone] Subjective No events overnight. Pt in bed resting comfortably. Awake but not communicative this am. Pt looks to be in NAD. Objective Vital Signs: Last Filed Vital Signs: 24 Hour Range BP: 108/56 (01/24 559) Temp: 37 C (98.6 F) (01/25 540) Pulse: 93 (01/25 540) Respirations: 18 PER MINUTE (01/25 540) SpO2: 96 % (01/25 540) O2 Delivery: None (Room Air) (01/25 540) BP: (81-115)/(53-65) Temp: [37 C (98.6 F)-37.1 C (98.7 F)] Pulse: [92-105] Respirations: [18 PER MINUTE] SpO2: [96 %-100 %] O2 Delivery: None (Room Air) Vitals: 01/06/17 1619 01/12/17 0635 01/19/17 0600 Weight: 52.1 kg (114 lb 14.4 oz) 52.7 kg (116 lb 2.9 oz) 53.3 kg (117 lb 9.6 oz ) Intake/Output Summary: (Last 24 hours) Intake/Output Summary (Last 24 hours) at 01/24/17 1001 Last data filed at 01/24/17 0435 Gross per 24 hour Intake 2560 ml Output 0 ml Net 2560 ml Stool Occurrence: 1 Oral Diet Order: NPO Last BM Date: 01/22/17 Bladder Accident: 1 (brief changed) Lab: Results for orders placed or performed during the hospital encounter of (from the past 24 hour(s)) POC GLUCOSE Collection Time: 01/23/17 12:41 PM # # Low-High Glucose, POC 101 (H) 70 - 100 MG/DL POC GLUCOSE Collection Time: 01/23/17 6:16 PM # # Low-High Glucose, POC 86 70 - 100 MG/DL POC GLUCOSE Collection Time: 01/23/17 9:24 PM # # Low-High Glucose, POC 189 (H) 70 - 100 MG/DL POC GLUCOSE Collection Time: 01/24/17 3:01 AM # # Low-High Glucose, POC 87 70 - 100 MG/DL POC GLUCOSE Collection Time: 01/24/17 6:45 AM # # Low-High Glucose, POC 106 (H) 70 - 100 MG/DL Physical Exam VS: BP 108/56 | Pulse 93 | Temp 37 C (98.6 F) | Ht 152.4 cm (60") | Wt 53.3 kg (117 lb 9.6 oz) | SpO2 96% | BMI 22.97 kg/m2 Gen: No Acute Distress, alertness mildly improved HEENT: sclera anicteric, conjunctiva not injected Neck: full AROM Heart: Regular Rate & Rhythm, no m/g/r Lungs: Clear to auscultation bilaterally, no w/r/r Abdomen: Soft, non-tender, non-distended, +BS; +PEG : No peter Neuro: tic like repetitive motion in face/ hands rubbing face in rhythmic fashion Speech/ Cognitive: global aphasia, speech characterized by automatic responses, inconsistent verbal command follow. + naming of brush Motor: mild right hemiparesis comparatively with at least anti-gravity strength in all limbs Therapy Notes & Labs Reviewed. Didi Valerio MD Associated attestation - Kevin Russ MD - 01/24/2017 11:21 PM CDT Rehabilitation Medicine Attending Physician Attestation: Agree with resident. The patient has experienced notable abnormal movements, EEG ordered and performed, Neurology consult appreciated. Low suspicion for true seizure, and EEG seems to be consistent with this. Neuro impression is most likely dyskinesia, Modafinil started. Today, patient's spouse's opinion is that this may be slightly better. Continue to follow Neuro recs and continue to monitor her progress closely. I personally performed de anda portions of the history and exam. I discussed the case with the resident and concur with the resident's documentation of history, physical assessment and treatment plan unless otherwise noted. Kevin Russ MD * Shena Coleman - 01/23/2017 5:29 PM CDT 25 minutes EEG was performed at the [facility]. Patient was not cooperative. Her was at the beside to help. * Betsy Howe - 01/23/2017 4:13 PM CDT SPEECH-LANGUAGE PATHOLOGY REHAB SPEECH DAILY NOTE SUMMARY: Pt seen for two 30-minute therapy sessions targeting language, cognition, and dysphagia. Pt's present for both therapy sessions. Please see below for additional details. RECOMMENDATIONS Continue NPO w/ use of PEG Medications through PEG Aggressive oral care utilizing suction throughout Videoswallow next week PLAN: Continue current therapy plan. FREQUENCY TODAY: 2x ACTIVITIES FOR THE DAY: Cognition: Pt required maximal cues to sustain attention to simple task of picking up playing cards. Pt required [id number] assistance w/ task. Pt closed her eyes throughout the task and required maximal cues to maintain eye opening and participate w/ therapy tasks. Pt required moderate verbal cues to attend to watching therapy dog play fetch. Pt occasionally demonstrated decreased attention by looking away and/or closing eyes and required INTERNAL CONSULTANT to re-direct focus to therapy dog. Pt required moderate cues to attend to task of brushing hair. Pt initially required [id number] assistance but was then able to complete task independently. Language: Pt participated in greeting-small talk (i.e., "How are you? How did you sleep?" ) w/ fair+ accuracy compared to previous therapy sessions. Dysphagia: Oral care provided utilizing suction throughout. Provided pt w/ toothette. Pt w/ improved use of toothette this date. Trials of ice chips provided, thin liquids via teaspoon, and thin liquids via cup sip provided. Bolus withdraw, formation, and AP transfer were functional. Mastication time was minimally prolonged w/ ice chips. Swallow initiation was [id number] delayed w/ adequate hyolaryngeal elevation as assessed via laryngeal palpation. 1 cough appreciated w/ thin liquids via cup. Vocal quality clear throughout trials. Provided pt and pt's w/ education regarding videoswallow or FEES testing when pt appropriate. Speech Care Center Manager Goals Will improve communication for basic wants and needs with: Moderate assist, Progressing Speech Short Term Goals Patient will follow concrete 1-part commands: 60% accuracy, Moderate cues Patient will identify object in a field of 2: 60% accuracy, Moderate cues Patient responds to yes/no questions regarding personal/ environmental information with nods, gestures, eye blinks, or pointin% accuracy, Moderate cues Will demonstrate confrontation naming with: 60% accuracy, Moderate cues Will perform automatic speech tasks with: 60% accuracy, Moderate cues Will participate in ongoing assessment of swallow bedside: Progressing Will participate in repeat instrumental swallow evaluation when clinically indicated: Progressing Therapist: Betsy Howe MS, L/CCC-INTERNAL CONSULTANT [phone] Date: 01/23/2017 * Natalie Walden RN - 01/23/2017 3:24 PM CDT I have reviewed the notes, assessment, and/or procedures performed by Ariana Tomlin RN and concur with her/his documentation unless otherwise noted. * Adrienne Wall - 01/23/2017 2:59 PM CDT Patient has left the unit at this time for a procedure via [facility] stretcher. * Debbi Lyle - 01/23/2017 1:16 PM CDT CLINICAL NUTRITION Clinical Nutrition Note Received call from Arpin for request to review EN order to finalize process for Medicare coverage in discharging pt 01/28 from [facility]. Previously recommended addition of Prosource pkt daily to EN order to aid in meeting protein needs for severely malnutrition pt 2/2 to 10 days of EN averages not meeting adequate protein needs (based on documentation). Upon discharge pt will not need additional prosource pkt, as goal of 4 cartons of Isosource 1.5 day will meet 100% of estimated needs. Recommendation: Upon discharge home, discontinue Prosource packet daily and modify TF order to 4 cartons of Isosource 1.5 total daily ( 1 carton, 4x/day ) + 30-60 ml water flush before and after each bolus. Add 165ml water bolus q8h between feedings or per team. Provides 1500 kcal, 68g protein, and 760ml free water from EN (total fluids of 1495ml based on 1ml/kcal fluids daily and 30 ml water flushes). Debbi Lyle, RD, LD *[id number] * Ariana Tomlin, RN - 01/23/2017 12:58 PM CDT This RN instructed how to administer tube feeding. Needed moderate verbal cues. All questions answered at this time. Will continue to provide education and support. * Flash Garcia MD - 01/23/2017 9:01 AM CDT Formatting of this note may be different from the original. ATTESTATION I personally observed the resident performing the E/M, discussed case with resident, and concur with resident documentation of history, physical assessment and treatment plan unless otherwise noted. I have made adjustments and additions directly to the text below when indicated. I have the following additional comments: -Movements somewhat improved today. Discontinued Provigil, last dose a.m. 01/23. -Follow-up EEG results and any updated neurology recs. -Appreciate ophthalmology consultation, recommendations reviewed. -Had originally planned to consider Aricept for both possible pre-morbid MCI vs dementia as well as aphasia however will wait given ongoing dyskinesia work-up. -Due to mobility impairment from frontal IPH patient would benefit from hospital bed. -I saw the patient in [id number] evaluation to assess the patient's mobility needs on 01/23/2017 while they were admitted to acute inpatient rehabilitation. This patient was evaluated in conjunction with a therapist to assess the most appropriate mobility device for her needs. The therapist and I have discussed the case and seating specifics. I am in agreement with the therapist's findings and recommendations. The patient will benefit from the recommended wheelchair. 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 Phillip is a 66 y/o female who was found to have left frontal parenchymal hemorrhage s/p evacuation and EVD placement and subsequent removal. Rehabilitation: Rehab Dx: [facility] Therapy: PT, OT, ST Daily Functional Update: Transfers Device Sit to Stand Transfer: Assistive Device: Hand Hold Assist (01/22/2017 10:15 AM) Transfer: Sit to Stand: Moderate assistance (01/23/2017 8:05 AM) Gait Device Assist Required Distance Gait: Assistive Device: Hand Hold Assist (01/23/2017 8:05 AM) Gait: Assist Level: Minimum assistance (01/23/2017 8:05 AM) Gait Distance: 100 feet (not maximal distance- activity in gym) (01/23/2017 8:05 AM) Dressing Lower Body LE Dressing Assist: Maximum Assist (01/20/2017 8:30 AM) IP, Left Frontal -Admitted to the [facility] on 12/22/2016with rolly left frontal parenchymal hemorrhage -S/p Left frontal burrhole craniotomy for evacuation 12/25 and EVD placement -CTA negative for aneurysm or AVM; MRI did not show any obvious enhancing lesion or abnormal vascular flow voids -waxing/ waning mental status initially with stable repeat Head CTs -continue Provigil for neuro-stimulation, at max dose -Global Aphasia: intermittent automatic phrases otherwise non-fluent with poor comprehension; consider Aricept in future. Will need to wait for completion of seizure like activity work up and discuss with neurology use of cholinergic medication in setting of potential movement disorder. Will re-evaluate next week. -Motor Apraxia, Right Hemiparesis: work with PT, OT Possible Seizure like activity -"unresponsive" episode during therapy -Neuro consulted, appreciate reccs >Continue keppra at increased dose 750mg BID until f/u with neurology >01/22: re consulted Neuro for tic like, rhythmic motion of rubbing face. Seizure like activity v. Drug interaction -Neuro recs EEG- will schedule for 01/23. Dysphagia -Currently NPO -s/p PEG placement 01/02 -Transitioned to bolus TF's Severe Malnutrition: Continue TF- Dietitian consulted. Hyperglycemia -Recent A1c 5.2 -[facility], not likely to require on discharge Left face discomfort/itching Left Eye irritation Difficult to tell if pt in pain- continues to rub left side of face, will start claritin and eye drops in cause this is caused by allergies. 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 Bowel: continue oral laxatives to promote regular bowel movements Bladder: Continue off Cardura. No current concern for retention. Continue timed voiding for incontinence. Nutrition: NPO, continue TF's Mental Health: consulted neuropsychology to provide support / counseling DVT Prophylaxis: Heparin Resolved Problems: -UTI, Ecoli Faecium, Completed course of treatment with levaquin 01/13 -Hypernatremia, resolved - continue current free water flushes -Urinary Retention, resolved - now off of Cardura, repeat PVRs 01/21 without retention Marcos Pena MD Pager [phone] Subjective No events overnight. Pt in bed resting comfortably. Awake but not communicative this am. Pt on board with EEG and ophtho consult today. Pt still rubbing face, otherwise looks to be in NAD. Objective Vital Signs: Last Filed Vital Signs: 24 Hour Range BP: 110/72 (01/24 408) Temp: 36.7 C (98.1 F) (01/24 408) Pulse: 82 (01/24 408) Respirations: 18 PER MINUTE (01/24 408) SpO2: 97 % (01/24 408) O2 Delivery: None (Room Air) (01/24 408) BP: (110-120)/(72-79) Temp: [36.7 C (98.1 F)-36.8 C (98.2 F)] Pulse: [82-103] Respirations: [18 PER MINUTE] SpO2: [97 %-98 %] O2 Delivery: None (Room Air) Vitals: 01/06/17 1619 01/12/17 0635 01/19/17 0600 Weight: 52.1 kg (114 lb 14.4 oz) 52.7 kg (116 lb 2.9 oz) 53.3 kg (117 lb 9.6 oz ) Intake/Output Summary: (Last 24 hours) Intake/Output Summary (Last 24 hours) at 01/23/17 0901 Last data filed at 01/23/17 0600 Gross per 24 hour Intake 2625 ml Output 0 ml Net 2625 ml Stool Occurrence: 1 Oral Diet Order: NPO Last BM Date: 01/22/17 Bladder Accident: 1 (brief changed) Lab: Results for orders placed or performed during the hospital encounter of (from the past 24 hour(s)) POC GLUCOSE Collection Time: 01/22/17 12:47 PM # # Low-High Glucose, POC 87 70 - 100 MG/DL POC GLUCOSE Collection Time: 01/22/17 6:01 PM # # Low-High Glucose, POC 91 70 - 100 MG/DL POC GLUCOSE Collection Time: 01/22/17 9:13 PM # # Low-High Glucose, POC 165 (H) 70 - 100 MG/DL POC GLUCOSE Collection Time: 01/23/17 7:04 AM # # Low-High Glucose, POC 109 (H) 70 - 100 MG/DL CBC Collection Time: 01/23/17 7:30 AM # # Low-High White Blood Cells 3.5 (L) 4.5 - 11.0 K/UL RBC 3.59 (L) 4.0 - 5.0 M/UL Hemoglobin 11.1 (L) 12.0 - 15.0 GM/DL Hematocrit 33.4 (L) 36 - 45 % MCV 92.9 80 - 100 FL MCH 30.9 26 - 34 PG MCHC 33.3 32.0 - 36.0 G/DL RDW 16.9 (H) 11 - 15 % Platelet Count 177 150 - 400 K/UL MPV 8.0 7 - 11 FL BASIC METABOLIC PANEL Collection Time: 01/23/17 7:30 AM # # Low-High Sodium 138 137 - 147 MMOL/L Potassium 3.9 3.5 - 5.1 MMOL/L Chloride 104 98 - 110 MMOL/L CO2 26 21 - 30 MMOL/L Anion Gap 8 3 - 12 Glucose 95 70 - 100 MG/DL Blood Urea Nitrogen 17 7 - 25 MG/DL Creatinine 0.57 0.4 - 1.00 MG/DL Calcium 9.1 8.5 - 10.6 MG/DL eGFR Non >60 >60 mL/min eGFR >60 >60 mL/min Physical Exam VS: BP 110/72 (BP Source: Arm, Right) | Pulse 82 | Temp 36.7 C (98.1 F) | Ht 152.4 cm (60") | Wt 53.3 kg (117 lb 9.6 oz) | SpO2 97% | BMI 22.97 kg/m2 Gen: No Acute Distress, alertness mildly improved HEENT: sclera anicteric, conjunctiva not injected Neck: full AROM Heart: Regular Rate & Rhythm, no m/g/r Lungs: Clear to auscultation bilaterally, no w/r/r Abdomen: Soft, non-tender, non-distended, +BS; +PEG : No peter Neuro: tic like repetitive motion in face/ hands rubbing face in rhythmic fashion Speech/ Cognitive: global aphasia, speech characterized by automatic responses, inconsistent verbal command follow. + naming of brush Motor: mild right hemiparesis comparatively with at least anti-gravity strength in all limbs Therapy Notes & Labs Reviewed. Marcos Pena MD * Betsy Howe - 01/22/2017 4:06 PM CDT SPEECH-LANGUAGE PATHOLOGY REHAB SPEECH DAILY NOTE SUMMARY: Pt seen for two 30-minute therapy sessions targeting language, cognition, and dysphagia. Pt's present for both therapy sessions. Please see below for additional details. RECOMMENDATIONS Continue NPO w/ use of PEG Medications through PEG Aggressive oral care utilizing suction throughout PLAN: Continue current therapy plan. FREQUENCY TODAY: 2x ACTIVITIES FOR THE DAY: Pt required maximal cues to sustain attention to task of folding socks. Pt did not participate in task despite model from INTERNAL CONSULTANT and [id number] assistance. Targeting sustained attention, attempted to color simple picture w/ pt. Initially, pt participated w/ task for approximately 30-seconds but then closed eyes and did not participate. Pt answered simple, egocentric yes/no questions w/ 67% (4/6) accuracy and moderate cues. Frequent cues required for participation as she often did not respond to questions. Pt accurately reported her name and month/date. Pt stated her year as "2009" and was not able to correct her year despite cues from INTERNAL CONSULTANT. Pt required maximal cues to attend to task of brushing hair. Pt initially required [id number] assistance but was then able to complete task independently for approximately 20 seconds. Speech Care Center Manager Goals Will improve communication for basic wants and needs with: Moderate assist, Progressing Speech Short Term Goals Patient will follow concrete 1-part commands: 60% accuracy, Moderate cues Patient will identify object in a field of 2: 60% accuracy, Moderate cues Patient responds to yes/no questions regarding personal/ environmental information with nods, gestures, eye blinks, or pointin% accuracy, Moderate cues Will demonstrate confrontation naming with: 60% accuracy, Moderate cues Will perform automatic speech tasks with: 60% accuracy, Moderate cues Will participate in ongoing assessment of swallow bedside: Progressing Will participate in repeat instrumental swallow evaluation when clinically indicated: Progressing Therapist: Betsy Howe MS, L/CCC-INTERNAL CONSULTANT [phone] Date: 01/22/2017 * Liza Lees, PhD - 01/22/2017 2:27 PM CDT [id number] Pt was seen b/s from for BDAE rescreen with pts spouse, Shyam, present with pts consent. Diagnosis: F41.89 Cognitive impairment Pt was slightly obtunded, but was easily awakened and gave intermittent responses to inquiry. Pt was oriented to self, but seemed confused if she was in a hospital or at a hotel. Pt was pleasant to speak with. Eye contact was intermittent, with pt drifting off at times during screening. Non-verbal behaviors included a repetitive movement of itching one side of her face. Mood and affect were congruent and euthymic. The BDAE was initially administered on 01/07/2017 and pt scored 12/20 to simple items. Attempted to readminister BDAE today; however, given pts intermittent sleep-wake pattern, testing was discontinued. Of note, pt was oriented to self, but did not respond to query about orientation to location or other simple items. Pt was able to follow a couple of simple motor commands (e.g., touch nose and raise arm), but was responded inconsistently to prompts or was unresponsive. When asked about the pts mood, her reported she remains pleasant and friendly. He has not observed her to be aggressive or irritated. He feels pt has made improvements, particularly that she is staying awake more throughout the day and participating more in therapies. Supportive counseling was provided to the pts and psychoeducation regarding caregiver stress and communication strategies was provided to the pt s spouse. He asked questions about how to best orient the patient to her location or increase goal-directed behavior. We discussed using simple commands to reach goals (e.g., we are moving to the wheelchair) versus phrases such as lets go shopping. Pts progress, utilization of coping skills, and goals for rehab therapies were supported. Will continue to follow and assess cognition, mood, pain management, and coping. Dionna Holguin, Ph.D. Neurorehabilitation Psychology Postdoctoral Fellow Pager #: [phone] ATTESTATION: I discussed this session and pt's care with the fellow and agree with her note above. We will continue to follow prn until [facility] d/c. Ambrose Lees, PhD, ABPP * Macros Pena MD - 01/22/2017 1:42 PM CDT Formatting of this note may be different from the original. 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 Phillip is a 66 y/o female who was found to have left frontal parenchymal hemorrhage s/p evacuation and EVD placement and subsequent removal. Rehabilitation: Rehab Dx: [facility] Therapy: PT, OT, ST Daily Functional Update: Transfers Device Sit to Stand Transfer: Assistive Device: Hand Hold Assist (01/22/2017 10:15 AM) Transfer: Sit to Stand: Moderate assistance;Minimum assistance (01/22/2017 10:15 AM) Gait Device Assist Required Distance Gait: Assistive Device: Hand Hold Assist (01/22/2017 10:15 AM) Gait: Assist Level: Facilitation of weight shift (01/22/2017 10:15 AM) Gait Distance: 50 feet (01/22/2017 10:15 AM) Dressing Lower Body LE Dressing Assist: Maximum Assist (01/20/2017 8:30 AM) IP, Left Frontal -Admitted to the [facility] on 12/22/2016with alarge left frontal parenchymal hemorrhage -S/p Left frontal burrhole craniotomy for evacuation 12/25 and EVD placement -CTA negative for aneurysm or AVM; MRI did not show any obvious enhancing lesion or abnormal vascular flow voids -waxing/ waning mental status initially with stable repeat Head CTs -continue Provigil for neuro-stimulation, at max dose -Global Aphasia: intermittent automatic phrases otherwise non-fluent with poor comprehension; consider Aricept -Motor Apraxia, Right Hemiparesis: work with PT, OT Possible Seizure like activity -"unresponsive" episode during therapy -Neuro consulted, appreciate reccs >Continue keppra at increased dose 750mg BID until f/u with neurology >01/22: re consulted Neuro for tic like, rhythmic motion of rubbing face. Seizure like activity v. Drug interaction Dysphagia -Currently NPO -s/p PEG placement 01/02 -Transitioned to bolus TF's Severe Malnutrition: Continue TF- Dietitian consulted. Hyperglycemia -Recent A1c 5.2 -[facility], not likely to require on discharge Left face discomfort/itching: Difficult to tell if pt in pain- continues to rub left side of face, will start claritin and eye drops in cause this is caused by allergies. 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 Bowel: continue oral laxatives to promote regular bowel movements Bladder: Continue off Cardura. No current concern for retention. Continue timed voiding for incontinence. Nutrition: NPO, continue TF's Mental Health: consulted neuropsychology to provide support / counseling DVT Prophylaxis: Heparin Resolved Problems: -UTI, Ecoli Faecium, Completed course of treatment with levaquin 01/13 -Hypernatremia, resolved - continue current free water flushes -Urinary Retention, resolved - now off of Cardura, repeat PVRs 01/21 without retention Marcos Pena MD Pager [phone] Subjective No events overnight. Pt in bed. Per the rubbing of her face has gotten worse- rhythmic in nature- looks like a tic. Concerned over seizure like activity. Completed bowel program on commode this am. Objective Vital Signs: Last Filed Vital Signs: 24 Hour Range BP: 121/69 (01/22 300) Temp: 36.4 C (97.6 F) (01/22 300) Pulse: 83 (01/22 300) Respirations: 18 PER MINUTE (01/22 300) SpO2: 100 % (01/22 300) O2 Delivery: None (Room Air) (01/22 300) BP: (109-121)/(62-69) Temp: [36.4 C (97.6 F)-36.7 C (98 F)] Pulse: [83-90] Respirations: [18 PER MINUTE] SpO2: [98 %-100 %] O2 Delivery: None (Room Air) Vitals: 01/06/17 1619 01/12/17 0635 01/19/17 0600 Weight: 52.1 kg (114 lb 14.4 oz) 52.7 kg (116 lb 2.9 oz) 53.3 kg (117 lb 9.6 oz ) Intake/Output Summary: (Last 24 hours) Intake/Output Summary (Last 24 hours) at 01/22/17 1342 Last data filed at 01/22/17 1315 Gross per 24 hour Intake 2425 ml Output 0 ml Net 2425 ml Stool Occurrence: 1 Oral Diet Order: NPO Last BM Date: 01/21/17 Bladder Accident: 1 (brief changed) Lab: Results for orders placed or performed during the hospital encounter of (from the past 24 hour(s)) POC GLUCOSE Collection Time: 01/21/17 5:00 PM # # Low-High Glucose, POC 120 (H) 70 - 100 MG/DL POC GLUCOSE Collection Time: 01/21/17 8:56 PM # # Low-High Glucose, POC 153 (H) 70 - 100 MG/DL POC GLUCOSE Collection Time: 01/22/17 3:01 AM # # Low-High Glucose, POC 90 70 - 100 MG/DL POC GLUCOSE Collection Time: 01/22/17 8:36 AM # # Low-High Glucose, POC 99 70 - 100 MG/DL POC GLUCOSE Collection Time: 01/22/17 12:47 PM # # Low-High Glucose, POC 87 70 - 100 MG/DL Physical Exam VS: BP 121/69 (BP Source: Arm, Left) | Pulse 83 | Temp 36.4 C (97.6 F) | Ht 152.4 cm (60") | Wt 53.3 kg (117 lb 9.6 oz) | SpO2 100% | BMI 22.97 kg/m2 Gen: No Acute Distress, alertness mildly improved HEENT: sclera anicteric, conjunctiva not injected Neck: full AROM Heart: Regular Rate & Rhythm, no m/g/r Lungs: Clear to auscultation bilaterally, no w/r/r Abdomen: Soft, non-tender, non-distended, +BS; +PEG : No peter Neuro: tic like repetitive motion in face/ hands rubbing face in rhythmic fashion Speech/ Cognitive: global aphasia, speech characterized by automatic responses, inconsistent verbal command follow. + naming of brush Motor: mild right hemiparesis comparatively with at least anti-gravity strength in all limbs Therapy Notes & Labs Reviewed. Marcos Pena MD Associated attestation - Flash Garcia MD - 01/22/2017 8:35 PM CDT Formatting of this note may be different from the original. ATTESTATION I personally performed the de anda portions of the E/M visit, discussed case with resident and concur with resident documentation of history, physical exam, assessment, and treatment plan unless otherwise noted. Case discussed with neurology who evaluated the patient due to new dyskinesia like movement. Plan for EEG tomorrow and will start Provigil wean. Continue same dose Keppra for now. Will consult ophthalmology for eye exam as recommended. Staff name: Flash Garcia MD Date: 01/22/2017 * Jamar Madrigal RN - 01/21/2017 7:00 PM CDT I have reviewed the notes, assessment, and/or procedures performed byAriana Tomlin and concur with her/his documentation unless otherwise noted. * Betsy Howe - 01/21/2017 3:52 PM CDT SPEECH-LANGUAGE PATHOLOGY REHAB SPEECH DAILY NOTE SUMMARY: Pt seen for two 30-minute therapy sessions targeting language, cognition, and dysphagia. Pt's present for both therapy sessions. Please see below for additional details. RECOMMENDATIONS Continue NPO w/ use of PEG Medications through PEG Aggressive oral care utilizing suction throughout PLAN: Continue current therapy plan. FREQUENCY TODAY: 2x ACTIVITIES FOR THE DAY: Pt required moderate-maximal cues to attend to task of folding washcloths and towels. Pt required cues to stay on task as pt easily distracted and then not able to complete task. Decreased initiation also observed as pt would watch INTERNAL CONSULTANT complete task but required cues to participate as well. Pt answered simple, egocentric yes/no questions w/ 57% accuracy and moderate cues. Frequent cues required for participation. Pt accurately reported her name and date of . Verbalized her address and phone number when provided initial 2-3 numbers. Speech Correction Goals Will improve communication for basic wants and needs with: Moderate assist, Progressing Speech Short Term Goals Patient will follow concrete 1-part commands: 60% accuracy, Moderate cues Patient will identify object in a field of 2: 60% accuracy, Moderate cues Patient responds to yes/no questions regarding personal/ environmental information with nods, gestures, eye blinks, or pointin% accuracy, Moderate cues Will demonstrate confrontation naming with: 60% accuracy, Moderate cues Will perform automatic speech tasks with: 60% accuracy, Moderate cues Will participate in ongoing assessment of swallow bedside: Progressing Will participate in repeat instrumental swallow evaluation when clinically indicated: Progressing Therapist: Betsy Howe MS, L/CCC-INTERNAL CONSULTANT [phone] Date: 01/21/2017 * Flash Garcia MD - 01/21/2017 10:09 AM CDT Formatting of this note may be different from the original. ATTESTATION I personally observed the resident performing the E/M, discussed case with resident, and concur with resident documentation of history, physical assessment and treatment plan unless otherwise noted. I have made adjustments and additions directly to the text below when indicated. 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 Phillip is a 66 y/o female who was found to have left frontal parenchymal hemorrhage s/p evacuation and EVD placement and subsequent removal. Rehabilitation: Rehab Dx: [facility] Therapy: PT, OT, ST Daily Functional Update: Transfers Device Sit to Stand Transfer: Assistive Device: Hand Hold Assist (01/21/2017 10:30 AM) Transfer: Sit to Stand: Moderate assistance (01/21/2017 10:30 AM) Gait Device Assist Required Distance Gait: Assistive Device: Hand Hold Assist (01/21/2017 10:30 AM) Gait: Assist Level: Minimum assistance (01/21/2017 10:30 AM) Gait Distance: 280 feet (+ 190 ft) (01/21/2017 10:30 AM) Dressing Lower Body LE Dressing Assist: Maximum Assist (01/20/2017 8:30 AM) IPH, Left Frontal -Admitted to the [facility] on 12/22/2016with alarge left frontal parenchymal hemorrhage -S/p Left frontal burrhole craniotomy for evacuation 12/25 and EVD placement -CTA negative for aneurysm or AVM; MRI did not show any obvious enhancing lesion or abnormal vascular flow voids -waxing/ waning mental status initially with stable repeat Head CTs -continue Provigil for neuro-stimulation, at max dose -Global Aphasia: intermittent automatic phrases otherwise non-fluent with poor comprehension; consider Aricept -Motor Apraxia, Right Hemiparesis: work with PT, OT Possible Seizure like activity -"unresponsive" episode during therapy -Neuro consulted, appreciate reccs >Continue keppra at increased dose 750mg BID until f/u with neurology Dysphagia -Currently NPO -s/p PEG placement 01/02 -Transitioned to bolus TF's Severe Malnutrition: Continue TF- Dietitian consulted. Hyperglycemia -Recent A1c 5.2 -[facility], not likely to require on discharge Left face discomfort/itching: Difficult to tell if pt in pain- continues to rub left side of face, will start claritin and eye drops in cause this is caused by allergies. 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 Bowel: continue oral laxatives to promote regular bowel movements Bladder: Continue off Cardura. No current concern for retention. Continue timed voiding for incontinence. Nutrition: NPO, continue TF's Mental Health: consulted neuropsychology to provide support / counseling DVT Prophylaxis: Heparin Resolved Problems: -UTI, Ecoli Faecium, Completed course of treatment with levaquin 01/13 -Hypernatremia, resolved - continue current free water flushes -Urinary Retention, resolved - now off of Cardura, repeat PVRs 01/21 without retention Marcos Pena MD Pager [phone] Subjective No events overnight. Pt sitting in chair this am. Pt denies any pain. Completed bowel program on commode this am. Able to name brush, attempting to brush hair by self. Objective Vital Signs: Last Filed Vital Signs: 24 Hour Range BP: 109/47 (01/21 651) Temp: 36.8 C (98.2 F) (01/21 651) Pulse: 90 (01/21 651) Respirations: 16 PER MINUTE (01/21 651) SpO2: 99 % (01/21 651) O2 Delivery: None (Room Air) (01/21 651) BP: (89-112)/(47-72) Temp: [36.7 C (98 F)-36.8 C (98.2 F)] Pulse: [86-90] Respirations: [16 PER MINUTE] SpO2: [99 %] O2 Delivery: None (Room Air) Vitals: 01/06/17 1619 01/12/17 0635 01/19/17 0600 Weight: 52.1 kg (114 lb 14.4 oz) 52.7 kg (116 lb 2.9 oz) 53.3 kg (117 lb 9.6 oz ) Intake/Output Summary: (Last 24 hours) Intake/Output Summary (Last 24 hours) at 01/21/17 1009 Last data filed at 01/21/17 0329 Gross per 24 hour Intake 1989 ml Output 0 ml Net 1989 ml Stool Occurrence: 1 BVI (Bladder Scan)(mL): 0 milliliters (PVR) (01/21/17 08) Oral Diet Order: NPO Last BM Date: 01/18/17 Bladder Accident: 1 (brief changed) Lab: Results for orders placed or performed during the hospital encounter of (from the past 24 hour(s)) POC GLUCOSE Collection Time: 01/20/17 12:23 PM # # Low-High Glucose, POC 125 (H) 70 - 100 MG/DL POC GLUCOSE Collection Time: 01/20/17 5:30 PM # # Low-High Glucose, POC 73 70 - 100 MG/DL POC GLUCOSE Collection Time: 01/21/17 3:17 AM # # Low-High Glucose, POC 90 70 - 100 MG/DL POC GLUCOSE Collection Time: 01/21/17 6:51 AM # # Low-High Glucose, POC 87 70 - 100 MG/DL CBC Collection Time: 01/21/17 7:00 AM # # Low-High White Blood Cells 3.5 (L) 4.5 - 11.0 K/UL RBC 3.59 (L) 4.0 - 5.0 M/UL Hemoglobin 11.1 (L) 12.0 - 15.0 GM/DL Hematocrit 33.4 (L) 36 - 45 % MCV 93.1 80 - 100 FL MCH 30.9 26 - 34 PG MCHC 33.2 32.0 - 36.0 G/DL RDW 17.4 (H) 11 - 15 % Platelet Count 166 150 - 400 K/UL MPV 8.2 7 - 11 FL BASIC METABOLIC PANEL Collection Time: 01/21/17 7:00 AM # # Low-High Sodium 138 137 - 147 MMOL/L Potassium 3.8 3.5 - 5.1 MMOL/L Chloride 103 98 - 110 MMOL/L CO2 28 21 - 30 MMOL/L Anion Gap 7 3 - 12 Glucose 88 70 - 100 MG/DL Blood Urea Nitrogen 14 7 - 25 MG/DL Creatinine 0.63 0.4 - 1.00 MG/DL Calcium 9.0 8.5 - 10.6 MG/DL eGFR Non >60 >60 mL/min eGFR >60 >60 mL/min POC GLUCOSE Collection Time: 01/21/17 8:50 AM # # Low-High Glucose, POC 94 70 - 100 MG/DL Physical Exam VS: BP 109/47 (BP Source: Arm, Right) | Pulse 90 | Temp 36.8 C (98.2 F) | Ht 152.4 cm (60") | Wt 53.3 kg (117 lb 9.6 oz) | SpO2 99% | BMI 22.97 kg/m2 Gen: No Acute Distress, alertness mildly improved HEENT: sclera anicteric, conjunctiva not injected Neck: full AROM Heart: Regular Rate & Rhythm, no m/g/r Lungs: Clear to auscultation bilaterally, no w/r/r Abdomen: Soft, non-tender, non-distended, +BS; +PEG : No peter Neuro: Speech/ Cognitive: global aphasia, speech characterized by automatic responses, inconsistent verbal command follow. + naming of brush this am. Motor: mild right hemiparesis comparatively with at least anti-gravity strength in all limbs Therapy Notes & Labs Reviewed. Marcos Pena MD * Kendra Suazo - 01/21/2017 8:19 AM CDT PHYSICAL THERAPY NOTE SUBJECTIVE: Patient is a 66 y.o. female who was found to have left frontal parenchymal hemorrhage s/p evacuation and EVD placement and subsequent removal. Pt has PMH significant for bilat TKA, chronic back pain, multiple spinal surgeries, dementia. ROM: UEs & LEs WFL STRENGTH: Generalized UE & LE weakness; pt is unable to follow the sequence for manual muscle testing Pt is unable to reposition herself in bed POSTURE/NEURO: Sits in posterior pelvic tilt in wheelchair Able to sit unsupported with standby assist, but postural endurance is limited BED MOBILITY/TRANSFERS: Maximal assist to total assist for bed mobility (assist for trunk & LEs) Transfers sit to/from stand: variable minimal to maximal assist (varies with level of fatigue) GAIT: Patient requires minimal to moderate assist x1 for R side lean, scissoring and LOB with gait. She requires weight shift facilitation and balance correction. Pt is not a functional ambulator due to amount of assistance and skill needed to walk with patient. Roller walker trials were unsuccessful; pt was unable to steer it and R side lean is exacerbated requiring Ax2 for gait WHEELCHAIR MOBILITY: Patient requires maximal to total assist for wheelchair mobility due to lack of strength, lack of initiation, and decreased attention to task She is not safe to sit in a manual wheelchair; she is currently utilizing a tilt -in-space wheelchair ASSESSMENT/PROGRESS: Patient will require a hospital bed due to the need for HOB to be >30 degrees for tube feeds and for aspiration risk. Pt has difficulty managing oral secretions. Pt is unable to reposition herself in bed and has the need to be frequently repositioned due to poor positioning in bed (slides down in bed) and the risk for pressure sores. Pt does not have the UE strength to reposition herself; furthermore, she cannot follow commands consistently to reposition herself in bed due to cognitive deficits. PLAN: Home with Assist & consistent supervision from spouse RECOMMENDATIONS: Semi-electric hospital bed Therapist: Kendra Suazo PT, DPT Date: 01/21/2017 * Natalie Walden, VANESSA - 01/20/2017 5:45 PM CDT Provided handouts to regarding tube feed, flushing, and medication administration. Provided with step by step instructions while this RN administered tube feed. All questions answered at this time. Will continue to provide education and support. * Betsy Howe - 01/20/2017 3:37 PM CDT SPEECH-LANGUAGE PATHOLOGY REHAB SPEECH DAILY NOTE SUMMARY: Pt seen for two 30-minute therapy sessions targeting language, cognition, and dysphagia. Pt's present for both therapy sessions. Language is emerging to be a more fluent aphasia w/ jargon and "word salad" w/ poor auditory comprehension. Please see below for additional details. RECOMMENDATIONS Continue NPO w/ use of PEG Medications through PEG Aggressive oral care utilizing suction throughout PLAN: Continue current therapy plan. FREQUENCY TODAY: 2x ACTIVITIES FOR THE DAY: Cognition: Pt required maximal cues to attend to task of picking up playing cards. Targeting sustained attention, pt attended to task of placing henry in vase w / maximal cues. Pt often closing eyes throughout task and not engaging w/ INTERNAL CONSULTANT despite cues. Dysphagia: Oral care provided utilizing suction throughout. Provided pt w/ toothette. Pt did not demonstrate correct use of toothbrush and required [id number] assistance to brush teeth. Trials of ice chips provided, thin liquids via teaspoon, and thin liquids via cup sip provided. Bolus withdraw, formation, and AP transfer were functional. Mastication time was minimally prolonged w/ ice chips. Swallow initiation was [id number] delayed w/ adequate hyolaryngeal elevation as assessed via laryngeal palpation. No overt s/s aspiration were appreciated. Vocal quality clear throughout trials. Provided pt and pt's w/ education regarding videoswallow or FEES testing when pt appropriate. Speech Care Center Manager Goals Will improve communication for basic wants and needs with: Moderate assist, Progressing Speech Short Term Goals Patient will follow concrete 1-part commands: 60% accuracy, Moderate cues Patient will identify object in a field of 2: 60% accuracy, Moderate cues Patient responds to yes/no questions regarding personal/ environmental information with nods, gestures, eye blinks, or pointin% accuracy, Moderate cues Will demonstrate confrontation naming with: 60% accuracy, Moderate cues Will perform automatic speech tasks with: 60% accuracy, Moderate cues Will participate in ongoing assessment of swallow bedside: Progressing Will participate in repeat instrumental swallow evaluation when clinically indicated: Progressing Therapist: Betsy Howe MS, L/CCC-INTERNAL CONSULTANT [phone] Date: 01/20/2017 * Natalie Walden RN - 01/20/2017 3:09 PM CDT concerned that pt "keeps twitching her face and touching it. It started Thursday." This RN observed pt touching face and repeatedly moving her head. MD notified of husbands concerns. Dr. Pena ordered claritin and stated that "I will come by and see the pt later this afternoon." Relayed information to . No questions at this time. Will begin to start teaching the on tube feed administration. * Flash Garcia MD - 01/20/2017 12:54 PM CDT Formatting of this note may be different from the original. ATTESTATION I personally observed the resident performing the E/M, discussed case with resident, and concur with resident documentation of history, physical assessment and treatment plan unless otherwise noted. -Consider Aricept this week -Clarifying discharge support available at the time of discharge Staff name: Flash Garcia MD Date: 01/20/2017 Physical Medicine & Rehabilitation Progress Note Today's Date: 01/20/2017 Admission Date: 01/06/2017 LOS: 14 days Principal Problem: Nontraumatic cortical hemorrhage of left cerebral hemisphere (HCC) Active Problems: Dysphagia Intraparenchymal hematoma of brain (HCC) Aphasia 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) Impaired mobility and activities of daily living Normocytic anemia Apraxia Assessment/Plan: Mrs. Phillip is a 66 y/o female who was found to have left frontal parenchymal hemorrhage s/p evacuation and EVD placement and subsequent removal. Rehabilitation: Rehab Dx: IPH Therapy: PT, OT, ST Daily Functional Update: Transfers Device Sit to Stand Transfer: Assistive Device: Hand Hold Assist (01/19/2017 3:31 PM) Transfer: Sit to Stand: Minimum assistance (01/19/2017 3:31 PM) Gait Device Assist Required Distance Gait: Assistive Device: Hand Hold Assist (01/19/2017 3:31 PM) Gait: Assist Level: Moderate assistance (01/19/2017 3:31 PM) Gait Distance: 300 feet (50, 150) (01/19/2017 3:31 PM) Dressing Lower Body LE Dressing Assist: Maximum Assist (01/20/2017 8:30 AM) IPH, Left Frontal -Admitted to the [facility] on 12/22/2016with alarge left frontal parenchymal hemorrhage -S/p Left frontal burrhole craniotomy for evacuation 12/25 and EVD placement -CTA negative for aneurysm or AVM; MRI did not show any obvious enhancing lesion or abnormal vascular flow voids -01/08 pt not following commands and regression in therapies -CT head 01/08: Interval decrease in left frontal parenchymal hematoma with surrounding low density edema and some expected evolution. Slight decrease in mild [id number]-yorjp midline shift with improvement in local mass effect. -continue Provigil for neuro-stimulation -Global Aphasia: intermittent automatic phrases otherwise non-fluent with poor comprehension; consider Aricept -Motor Apraxia, Right Hemiparesis: work with PT, OT AMS -Pt therapies pt became unresponsive for short period of time 01/15 -Concern for seizure like activity -Neuro consulted, appreciate reccs >Continue keppra at increased dose 750mg BID until f/u with neurology Dysphagia -Currently NPO -s/p PEG placement 01/02 -Transitioned to bolus TF's Severe Malnutrition: Continue TF- Dietitian consulted. UTI, Ecoli Faecium, Completed course of treatment with levaquin 01/13 Hyperglycemia -Recent A1c 5.2 -[facility] Left face discomfort/itching: Difficult to tell if pt in pain- continues to rub left side of face, will start claritin and eye drops in cause this is caused by allergies. 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 Bowel: continue oral laxatives to promote regular bowel movements Bladder: Pt requiring ISC, Continue PVRs w/ ISC PRN. Stopped doxazosin 01/20. Continue toileting schedule. Nutrition: NPO for now, continue TF's Mental Health: consult neuropsychology to provide support / counseling DVT Prophylaxis: Heparin Marcos Pena MD Pager [phone] Subjective No events overnight. Pt resting comfortably in bed when seen this am. Pt denies any pain. concerned with potential itching on left side of face. No swelling erythremia noted. Mildly alert. Objective Vital Signs: Last Filed Vital Signs: 24 Hour Range BP: 93/57 (01/20 547) Temp: 36.8 C (98.3 F) (01/20 547) Pulse: 86 (01/20 547) Respirations: 16 PER MINUTE (01/20 547) SpO2: 100 % (01/19 1529) O2 Delivery: None (Room Air) (01/19 1529) BP: (93-106)/(37-57) Temp: [36.8 C (98.2 F)-36.8 C (98.3 F)] Pulse: [86-106] Respirations: [16 PER MINUTE] SpO2: [100 %] O2 Delivery: None (Room Air) Vitals: 01/06/17 1619 01/12/17 0635 01/19/17 0600 Weight: 52.1 kg (114 lb 14.4 oz) 52.7 kg (116 lb 2.9 oz) 53.3 kg (117 lb 9.6 oz ) Intake/Output Summary: (Last 24 hours) Intake/Output Summary (Last 24 hours) at 01/20/17 1254 Last data filed at 01/20/17 1236 Gross per 24 hour Intake 2220 ml Output 0 ml Net 2220 ml Stool Occurrence: 1 Oral Diet Order: NPO Last BM Date: 01/18/17 Bladder Accident: 1 (brief changed) Lab: Results for orders placed or performed during the hospital encounter of (from the past 24 hour(s)) POC GLUCOSE Collection Time: 01/19/17 5:02 PM # # Low-High Glucose, POC 101 (H) 70 - 100 MG/DL POC GLUCOSE Collection Time: 01/19/17 8:39 PM # # Low-High Glucose, POC 121 (H) 70 - 100 MG/DL POC GLUCOSE Collection Time: 01/20/17 3:13 AM # # Low-High Glucose, POC 85 70 - 100 MG/DL POC GLUCOSE Collection Time: 01/20/17 8:06 AM # # Low-High Glucose, POC 96 70 - 100 MG/DL POC GLUCOSE Collection Time: 01/20/17 12:23 PM # # Low-High Glucose, POC 125 (H) 70 - 100 MG/DL Physical Exam VS: BP 93/57 (BP Source: Arm, Left) | Pulse 86 | Temp 36.8 C (98.3 F) | Ht 152.4 cm (60") | Wt 53.3 kg (117 lb 9.6 oz) | SpO2 100% | BMI 22.97 kg/m2 Gen: No Acute Distress, alertness mildly improved HEENT: sclera anicteric, conjunctiva not injected Neck: full AROM Heart: Regular Rate & Rhythm, no m/g/r Lungs: Clear to auscultation bilaterally, no w/r/r Abdomen: Soft, non-tender, non-distended, +BS : No peter Neuro: Speech/ Cognitive: global aphasia, speech characterized by automatic responses, inconsistent verbal command follow Motor: mild right hemiparesis comparatively with at least anti-gravity strength in all limbs Therapy Notes & Labs Reviewed. Marcos Pena MD * Debbi Lyle - 01/20/2017 10:57 AM CDT CLINICAL NUTRITION Clinical Nutrition Follow-Up Summary Nutrition Assessment of Patient: Malnutrition Assessment: Malnutrition present Malnutrition Context: ICD-10 code E43: Chronic illness/Severe malnutrition Estimated Calorie Needs: 2009-0889 (28-30 kcal/kg dry wt 55.4kg [facility] Admit) Estimated Protein Needs: 65-75 (1.2-1.4g/kg dry wt 55.4kg) Oral Diet Order: NPO Intake (calories) Daily Average : 1376 kilocalories (90% of goal) Intake (protein) Daily Average : 62 grams (96% of goal) Current EN Order: Isosource 1.5, 1 carton QID + 30ml pre/post water flush + 250ml water bolus Q4H Comment: 66 yo female w/ PMH including dementia, chronic back pain, TIA; transferred to [facility] 12/22 with large left frontal parenchymal hemorrhage on AC Plavix and ASA for hx TIA 3 mos ago. PEG placed 01/02. Isosource 1.5 EN feeds started per NGT 12/25. 3 day EN ave 12/29- met 55% min kcal goal and 58% min protein goal. Due to rescheduling of PEG and TF holds, EN avg decreased 01/01-, meeting 46% of kcal and 49% of protein needs. EN avg 01/10-01/12 met 90-95% of est needs with no s/s of intolerance. Toleration of EN continues with 3-day EN avg 01/17-01/19 met 90% kcal and 96% protein needs. Per INTERNAL CONSULTANT, pt with minimal PO intake trials due to not participating; remains NPO with EN. Weight is stable since rehab admit, with slight increase reflective of +fluid balance (+1980ml today). Last BM 01/18. No edema or pressure injuries noted. Recommendation: Continue current EN order with 1 Prosource daily. Provides 1560 kcal, 83g protein, and 760ml free water from EN. Intervention / Plan: Monitor EN rate/tolerance Monitor wt, labs, skin, gi, meds, fluids. Nutrition Diagnosis: Nutrition Diagnosis: Altered GI function Etiology: swallowing difficulty Signs & Symptoms: NPO with EN Goals: EN tolerated and meeting >85% of nutritional needs Time Frame: Within 5 Days Status: Met;Ongoing Debbi Lyle RD, LD *[id number] * Betsy Howe - 01/19/2017 2:41 PM CDT SPEECH-LANGUAGE PATHOLOGY REHAB SPEECH DAILY NOTE SUMMARY: Pt seen for two 30-minute therapy sessions targeting language, cognition, and dysphagia. Pt's present for both therapy sessions. Pt w / limited participation in therapy tasks this date despite maximal cues for attention and encouragement. Language is emerging to be a more fluent aphasia w / jargon and "word salad" w/ poor auditory comprehension. Please see below for additional details. RECOMMENDATIONS Continue NPO w/ use of PEG Medications through PEG Aggressive oral care utilizing suction throughout PLAN: Continue current therapy plan. FREQUENCY TODAY: 2x ACTIVITIES FOR THE DAY: Cognition: Pt attended to task of looking at magazine w/ kafbldri-[id number] cues to sustain attention. Pt required maximal cues to attend to task of picking up playing cards. Pt named correct number in one instance of approximately 12 trials. Targeting sustained attention, pt attended to task of listening to favorite music w/ maximal cues. Pt lethargic and requiring cues to maintain alertness. Pt occasionally tapping hand to mita and singing intermittently. Pt required maximal cues to attend to task of looking at new family photos. Speech Correction Goals Will improve communication for basic wants and needs with: Moderate assist, Progressing Speech Short Term Goals Patient will follow concrete 1-part commands: 60% accuracy, Moderate cues Patient will identify object in a field of 2: 60% accuracy, Moderate cues Patient responds to yes/no questions regarding personal/ environmental information with nods, gestures, eye blinks, or pointin% accuracy, Moderate cues Will demonstrate confrontation naming with: 60% accuracy, Moderate cues Will perform automatic speech tasks with: 60% accuracy, Moderate cues Will participate in ongoing assessment of swallow bedside: Progressing Will participate in repeat instrumental swallow evaluation when clinically indicated: Progressing Therapist: Betsy Howe MS, L/CCC-INTERNAL CONSULTANT [phone] Date: 01/19/2017 * Paul Smith DO - 01/19/2017 7:58 AM CDT Formatting of this note may be different from the original. Physical Medicine & Rehabilitation Progress Note Today's Date: 01/19/2017 Admission Date: 01/06/2017 LOS: 13 days Principal Problem: Nontraumatic cortical hemorrhage of left cerebral hemisphere (HCC) Active Problems: Dysphagia Intraparenchymal hematoma of brain (HCC) Aphasia 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) Impaired mobility and activities of daily living Normocytic anemia Apraxia Sat: no changes Sun: No BM since 01/15, gave suppository Mon; no changes Assessment/Plan: Mrs. Phillip is a 66 y/o female who was found to have left frontal parenchymal hemorrhage s/p evacuation and EVD placement and subsequent removal. Rehabilitation: Rehab Dx: IPH Therapy: PT, OT, ST Daily Functional Update: Transfers Device Sit to Stand Transfer: Assistive Device: None (01/16/2017 10:30 AM) Transfer: Sit to Stand: Minimum assistance;Maximum assistance (01/16/2017 10:30 AM ) Gait Device Assist Required Distance Gait: Assistive Device: Hand Hold Assist (01/16/2017 10:30 AM) Gait: Assist Level: Moderate assistance (01/16/2017 10:30 AM) Gait Distance: 70 feet (+ 35 ft) (01/16/2017 10:30 AM) Dressing Lower Body LE Dressing Assist: Total Assist (01/12/2017 8:01 AM) IPH, Left Frontal -Admitted to the [facility] on 12/22/2016with alarge left frontal parenchymal hemorrhage -S/p Left frontal burrhole craniotomy for evacuation 12/25 and EVD placement -CTA negative for aneurysm or AVM; MRI did not show any obvious enhancing lesion or abnormal vascular flow voids -01/08 pt not following commands and regression in therapies -CT head 01/08: Interval decrease in left frontal parenchymal hematoma with surrounding low density edema and some expected evolution. Slight decrease in mild diye-ox-wepfa midline shift with improvement in local mass effect. -continue Provigil for neuro-stimulation -Global Aphasia: intermittent automatic phrases otherwise non-fluent with poor comprehension; consider Aricept -Motor Apraxia, Right Hemiparesis: work with PT, OT AMS -Pt therapies pt became unresponsive for short period of time 01/15 -Concern for seizure like activity -Neuro consulted, appreciate reccs >Continue keppra at increased dose 750mg BID until f/u with neurology Dysphagia -Currently NPO -s/p PEG placement 01/02 -Transitioned to bolus TF's UTI, Ecoli Faecium, Completed course of treatment with levaquin 01/13 Hyperglycemia -Recent A1c 5.2 -MDCF Normocytic Anemia -Stable, continue to monitor Hypernatremia - resolved -Continue current free water flushes 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 Bowel: continue oral laxatives to promote regular bowel movements Bladder: Pt requiring ISC, last straight cath 01/13. Continue PVRs w/ ISC PRN. Wean doxazosin. Continue toileting schedule. Nutrition: NPO for now, continue TF's Mental Health: consult neuropsychology to provide support / counseling DVT Prophylaxis: Heparin Paul Smith DO Pager [phone] Subjective No events overnight. Pt resting comfortably in bed when seen this am. Pt denied being in any pain when seen. wondering why pt was had been rubbing her L eye. No visible irritant on exam. No other questions/concerns when seen. Objective Vital Signs: Last Filed Vital Signs: 24 Hour Range BP: 109/58 (01/20 328) Temp: 36.4 C (97.5 F) (01/20 328) Pulse: 100 (01/20 328) Respirations: 16 PER MINUTE (01/20 328) SpO2: 98 % (01/20 328) O2 Delivery: None (Room Air) (01/20 328) BP: (105-109)/(55-58) Temp: [36.4 C (97.5 F)-36.9 C (98.4 F)] Pulse: [100] Respirations: [16 PER MINUTE] SpO2: [98 %-99 %] O2 Delivery: None (Room Air) Vitals: 01/06/17 1619 01/12/17 0635 01/19/17 0600 Weight: 52.1 kg (114 lb 14.4 oz) 52.7 kg (116 lb 2.9 oz) 53.3 kg (117 lb 9.6 oz ) Intake/Output Summary: (Last 24 hours) Intake/Output Summary (Last 24 hours) at 01/19/17 0758 Last data filed at 01/19/17 0530 Gross per 24 hour Intake 2870 ml Output 0 ml Net 2870 ml Stool Occurrence: 1 Oral Diet Order: NPO Last BM Date: 01/18/17 Bladder Accident: 1 (brief changed) Lab: Results for orders placed or performed during the hospital encounter of (from the past 24 hour(s)) POC GLUCOSE Collection Time: 01/18/17 12:00 PM # # Low-High Glucose, POC 106 (H) 70 - 100 MG/DL POC GLUCOSE Collection Time: 01/18/17 12:25 PM # # Low-High Glucose, POC 144 (H) 70 - 100 MG/DL POC GLUCOSE Collection Time: 01/18/17 5:51 PM # # Low-High Glucose, POC 90 70 - 100 MG/DL POC GLUCOSE Collection Time: 01/18/17 9:08 PM # # Low-High Glucose, POC 186 (H) 70 - 100 MG/DL POC GLUCOSE Collection Time: 01/19/17 3:25 AM # # Low-High Glucose, POC 81 70 - 100 MG/DL POC GLUCOSE Collection Time: 01/19/17 6:38 AM # # Low-High Glucose, POC 106 (H) 70 - 100 MG/DL Physical Exam VS: BP 109/58 (BP Source: Arm, Left) | Pulse 100 | Temp 36.4 C (97.5 F) | Ht 152.4 cm (60") | Wt 53.3 kg (117 lb 9.6 oz) | SpO2 98% | BMI 22.97 kg/m2 Gen: No Acute Distress, alertness mildly improved HEENT: sclera anicteric, conjunctiva not injected Neck: full AROM Heart: Regular Rate & Rhythm, no m/g/r Lungs: Clear to auscultation bilaterally, no w/r/r Abdomen: Soft, non-tender, non-distended, +BS : No peter Neuro: Speech/ Cognitive: global aphasia, speech characterized by automatic responses, inconsistent verbal command follow Motor: mild right hemiparesis comparatively with at least anti-gravity strength in all limbs Therapy Notes & Labs Reviewed. Paul Smith DO Associated attestation - Flash Garcia MD - 01/19/2017 9:54 AM CDT Formatting of this note may be different from the original. ATTESTATION I personally performed the de anda portions of the E/M visit, discussed case with resident and concur with resident documentation of history, physical exam, assessment, and treatment plan unless otherwise noted. -Exam: more alert this morning, continued severe aphasia, moving all limbs with at least anti-gravity strength, sclera anicteric and conjunctive not injected on eye exam -Lab and vitals reviewed and stable. -Patient remains medically and functionally stable for continued rehabilitation participation. Staff name: Flash Garcia MD Date: 01/19/2017 * Madhavi Cruz - 01/18/2017 7:24 PM CDT Activity Therapy Patient participated in musical entertainment from 2:30 3:30 provided by [email or web address] vendor Kael Rangel. This activity therapist was present throughout the event. * Paul Smith DO - 01/18/2017 7:54 AM CDT Formatting of this note may be different from the original. 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 Phillip is a 66 y/o female who was found to have left frontal parenchymal hemorrhage s/p evacuation and EVD placement and subsequent removal. Rehabilitation: Rehab Dx: IPH Therapy: PT, OT, ST Daily Functional Update: Transfers Device Sit to Stand Transfer: Assistive Device: None (01/16/2017 10:30 AM) Transfer: Sit to Stand: Minimum assistance;Maximum assistance (01/16/2017 10:30 AM ) Gait Device Assist Required Distance Gait: Assistive Device: Hand Hold Assist (01/16/2017 10:30 AM) Gait: Assist Level: Moderate assistance (01/16/2017 10:30 AM) Gait Distance: 70 feet (+ 35 ft) (01/16/2017 10:30 AM) Dressing Lower Body LE Dressing Assist: Total Assist (01/12/2017 8:01 AM) IPH, Left Frontal -Admitted to the [facility] on 12/22/2016with alarge left frontal parenchymal hemorrhage -S/p Left frontal burrhole craniotomy for evacuation 12/25 and EVD placement -CTA negative for aneurysm or AVM; MRI did not show any obvious enhancing lesion or abnormal vascular flow voids -01/08 pt not following commands and regression in therapies -CT head 01/08: Interval decrease in left frontal parenchymal hematoma with surrounding low density edema and some expected evolution. Slight decrease in mild [id number] midline shift with improvement in local mass effect. -continue Provigil for neuro-stimulation -Global Aphasia: intermittent automatic phrases otherwise non-fluent with poor comprehension; consider Aricept -Motor Apraxia, Right Hemiparesis: work with PT, OT AMS -Pt therapies pt became unresponsive for short period of time 01/15 -Concern for seizure like activity -Neuro consulted, appreciate reccs >Continue keppra at increased dose 750mg BID until f/u with neurology Dysphagia -Currently NPO -s/p PEG placement 01/02 -Transitioned to bolus TF's UTI, Ecoli Faecium, Completed course of treatment with levaquin 01/13 Hyperglycemia -Recent A1c 5.2 -MDCF Normocytic Anemia -Stable, continue to monitor Hypernatremia - resolved -Continue current free water flushes 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 Bowel: continue oral laxatives to promote regular bowel movements Bladder: Pt requiring ISC, last straight cath 01/13. Continue PVRs w/ ISC PRN. Wean doxazosin. Continue toileting schedule. Nutrition: NPO for now, continue TF's Mental Health: consult neuropsychology to provide support / counseling DVT Prophylaxis: Heparin Paul Smith DO Pager [phone] Subjective No issues overnight. Pt resting comfortably in bed with at bedside when seen. Shrugged shoulders when asked how she was doing this am. Pt voiced no complaints when seen. Objective Vital Signs: Last Filed Vital Signs: 24 Hour Range BP: 122/90 (01/18 335) Temp: 37 C (98.6 F) (01/18 335) Pulse: 81 (01/18 335) Respirations: 18 PER MINUTE (01/18 335) SpO2: 99 % (01/18 335) O2 Delivery: None (Room Air) (01/18 335) BP: (99-122)/(66-90) Temp: [36.6 C (97.9 F)-37 C (98.6 F)] Pulse: [81-107] Respirations: [18 PER MINUTE] SpO2: [99 %] O2 Delivery: None (Room Air) Vitals: 01/06/17 1619 01/12/17 0635 Weight: 52.1 kg (114 lb 14.4 oz) 52.7 kg (116 lb 2.9 oz) Intake/Output Summary: (Last 24 hours) Intake/Output Summary (Last 24 hours) at 01/18/17 0754 Last data filed at 01/18/17 0600 Gross per 24 hour Intake 2280 ml Output 300 ml Net 1980 ml Stool Occurrence: 1 Oral Diet Order: NPO Last BM Date: 01/15/17 Bladder Accident: 1 Lab: Results for orders placed or performed during the hospital encounter of (from the past 24 hour(s)) POC GLUCOSE Collection Time: 01/17/17 12:09 PM # # Low-High Glucose, POC 176 (H) 70 - 100 MG/DL POC GLUCOSE Collection Time: 01/17/17 12:38 PM # # Low-High Glucose, POC 110 (H) 70 - 100 MG/DL POC GLUCOSE Collection Time: 01/17/17 4:57 PM # # Low-High Glucose, POC 110 (H) 70 - 100 MG/DL POC GLUCOSE Collection Time: 01/17/17 9:33 PM # # Low-High Glucose, POC 198 (H) 70 - 100 MG/DL POC GLUCOSE Collection Time: 01/18/17 3:23 AM # # Low-High Glucose, POC 82 70 - 100 MG/DL POC GLUCOSE Collection Time: 01/18/17 6:42 AM # # Low-High Glucose, POC 111 (H) 70 - 100 MG/DL Physical Exam VS: BP 122/90 (BP Source: Arm, Right) Comment (BP Source): R forearm with small cuff on | Pulse 81 | Temp 37 C (98.6 F) | Ht 152.4 cm (60") | Wt 52.7 kg ( 116 lb 2.9 oz) | SpO2 99% | BMI 22.69 kg/m2 Gen: No Acute Distress, alertness mildly improved HEENT: sclera anicteric, conjunctiva not injected Neck: full AROM Heart: Regular Rate & Rhythm, no m/g/r Lungs: Clear to auscultation bilaterally, no w/r/r Abdomen: Soft, non-tender, non-distended, +BS : No peter Neuro: Speech/ Cognitive: global aphasia, speech characterized by automatic responses, inconsistent verbal command follow Motor: mild right hemiparesis comparatively with at least anti-gravity strength in all limbs Therapy Notes & Labs Reviewed. Paul Smith DO Associated attestation - Flash Garcia MD - 01/18/2017 8:18 PM CDT Formatting of this note may be different from the original. ATTESTATION I personally performed the de anda portions of the E/M visit, discussed case with resident and concur with resident documentation of history, physical exam, assessment, and treatment plan unless otherwise noted. -Exam: sleeping, able to be awakened, aphasia with automatic phrases, limited command follow, independent for bed mobility, PEG in place -Lab and vitals reviewed and stable. No new labs 01/18. -Patient remains medically and functionally stable for continued rehabilitation participation. Staff name: Flash Garcia MD Date: 01/18/2017 * Paul Smith DO - 01/17/2017 7:22 AM CDT Formatting of this note may be different from the original. 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 Phillip is a 66 y/o female who was found to have left frontal parenchymal hemorrhage s/p evacuation and EVD placement and subsequent removal. Rehabilitation: Rehab Dx: IP Therapy: PT, OT, ST Daily Functional Update: Transfers Device Sit to Stand Transfer: Assistive Device: None (01/16/2017 10:30 AM) Transfer: Sit to Stand: Minimum assistance;Maximum assistance (01/16/2017 10:30 AM ) Gait Device Assist Required Distance Gait: Assistive Device: Hand Hold Assist (01/16/2017 10:30 AM) Gait: Assist Level: Moderate assistance (01/16/2017 10:30 AM) Gait Distance: 70 feet (+ 35 ft) (01/16/2017 10:30 AM) Dressing Lower Body LE Dressing Assist: Total Assist (01/12/2017 8:01 AM) IPH, Left Frontal -Admitted to the [facility] on 12/22/2016with alarge left frontal parenchymal hemorrhage -S/p Left frontal burrhole craniotomy for evacuation 12/25 and EVD placement -CTA negative for aneurysm or AVM; MRI did not show any obvious enhancing lesion or abnormal vascular flow voids -01/08 pt not following commands and regression in therapies -CT head 01/08: Interval decrease in left frontal parenchymal hematoma with surrounding low density edema and some expected evolution. Slight decrease in mild [id number] midline shift with improvement in local mass effect. -continue Provigil for neuro-stimulation -Global Aphasia: intermittent automatic phrases otherwise non-fluent with poor comprehension; consider Aricept -Motor Apraxia, Right Hemiparesis: work with PT, OT AMS -Pt therapies pt became unresponsive for short period of time 01/15 -Concern for seizure like activity -Neuro consulted, appreciate reccs >Continue keppra at increased dose 750mg BID until f/u with neurology Dysphagia -Currently NPO -s/p PEG placement 01/02 -Transitioned to bolus TF's UTI, Ecoli Faecium, Completed course of treatment with levaquin 01/13 Hyperglycemia -Recent A1c 5.2 -MDCF Normocytic Anemia -Stable, continue to monitor Hypernatremia - resolved -Continue current free water flushes 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 Bowel: continue oral laxatives to promote regular bowel movements Bladder: Pt requiring ISC, last straight cath 01/13. Continue PVRs w/ ISC PRN. Wean doxazosin. Continue toileting schedule. Nutrition: NPO for now, continue TF's Mental Health: consult neuropsychology to provide support / counseling DVT Prophylaxis: Heparin Paul Smith DO Pager [phone] Subjective No events overnight. Pt resting comfortably in bed, at bedside when seen. Pt and had no concerns when seen. Denied insomnia, constipation, sob. Objective Vital Signs: Last Filed Vital Signs: 24 Hour Range BP: 103/57 (01/17 322) Temp: 36.7 C (98 F) (01/17 322) Pulse: 90 (01/17 322) Respirations: 16 PER MINUTE (01/17 322) SpO2: 100 % (01/17 322) O2 Delivery: None (Room Air) (01/17 322) BP: (96-103)/(53-57) Temp: [36.7 C (98 F)-37.4 C (99.4 F)] Pulse: [90-93] Respirations: [16 PER MINUTE-18 PER MINUTE] SpO2: [92 %-100 %] O2 Delivery: None (Room Air) Intensity Pain Scale 0-10 (Pain 1): 0 (pt shakes head "no") (01/16/17 1030) Vitals: 01/06/17 1619 01/12/17 0635 Weight: 52.1 kg (114 lb 14.4 oz) 52.7 kg (116 lb 2.9 oz) Intake/Output Summary: (Last 24 hours) Intake/Output Summary (Last 24 hours) at 01/17/17 0722 Last data filed at 01/17/17 0638 Gross per 24 hour Intake 2560 ml Output 0 ml Net 2560 ml Stool Occurrence: 1 Oral Diet Order: NPO Last BM Date: 01/15/17 Bladder Accident: 1 Lab: Results for orders placed or performed during the hospital encounter of (from the past 24 hour(s)) CBC Collection Time: 01/16/17 8:12 AM # # Low-High White Blood Cells 4.7 4.5 - 11.0 K/UL RBC 3.32 (L) 4.0 - 5.0 M/UL Hemoglobin 10.1 (L) 12.0 - 15.0 GM/DL Hematocrit 29.8 (L) 36 - 45 % MCV 89.8 80 - 100 FL MCH 30.6 26 - 34 PG MCHC 34.0 32.0 - 36.0 G/DL RDW 16.7 (H) 11 - 15 % Platelet Count 139 (L) 150 - 400 K/UL MPV 9.5 7 - 11 FL BASIC METABOLIC PANEL Collection Time: 01/16/17 8:12 AM # # Low-High Sodium 137 137 - 147 MMOL/L Potassium 3.9 3.5 - 5.1 MMOL/L Chloride 102 98 - 110 MMOL/L CO2 28 21 - 30 MMOL/L Anion Gap 7 3 - 12 Glucose 202 (H) 70 - 100 MG/DL Blood Urea Nitrogen 15 7 - 25 MG/DL Creatinine 0.61 0.4 - 1.00 MG/DL Calcium 8.8 8.5 - 10.6 MG/DL eGFR Non >60 >60 mL/min eGFR >60 >60 mL/min POC GLUCOSE Collection Time: 01/16/17 12:00 PM # # Low-High Glucose, POC 120 (H) 70 - 100 MG/DL POC GLUCOSE Collection Time: 01/16/17 4:49 PM # # Low-High Glucose, POC 88 70 - 100 MG/DL POC GLUCOSE Collection Time: 01/16/17 9:24 PM # # Low-High Glucose, POC 103 (H) 70 - 100 MG/DL POC GLUCOSE Collection Time: 01/17/17 3:17 AM # # Low-High Glucose, POC 90 70 - 100 MG/DL POC GLUCOSE Collection Time: 01/17/17 6:33 AM # # Low-High Glucose, POC 99 70 - 100 MG/DL Physical Exam VS: BP 103/57 (BP Source: Arm, Left) | Pulse 90 | Temp 36.7 C (98 F) | Ht 152.4 cm (60") | Wt 52.7 kg (116 lb 2.9 oz) | SpO2 100% | BMI 22.69 kg/m2 Gen: No Acute Distress, alertness mildly improved HEENT: sclera anicteric, conjunctiva not injected Neck: full AROM Heart: Regular Rate & Rhythm, no m/g/r Lungs: Clear to auscultation bilaterally, no w/r/r Abdomen: Soft, non-tender, non-distended, +BS : No peter Neuro: Speech/ Cognitive: global aphasia, speech characterized by automatic responses, inconsistent verbal command follow Motor: mild right hemiparesis comparatively with at least anti-gravity strength in all limbs Therapy Notes & Labs Reviewed. Paul Smith DO Associated attestation - Flash Garcia MD - 01/17/2017 1:00 PM CDT Formatting of this note may be different from the original. ATTESTATION I personally performed the de anda portions of the E/M visit, discussed case with resident and concur with resident documentation of history, physical exam, assessment, and treatment plan unless otherwise noted. -Exam: sleeping comfortably, able to be aroused, +aphasia -Lab and vitals reviewed and stable. BP stable, no new labs 01/17, POC glucose control reasonable. -Patient remains medically and functionally stable for continued rehabilitation participation. Staff name: Flash Garcia MD Date: 01/17/2017 * Betsy Howe - 01/16/2017 3:19 PM CDT SPEECH-LANGUAGE PATHOLOGY REHAB SPEECH DAILY NOTE SUMMARY: Pt seen for two 30-minute therapy sessions targeting language, cognition, and dysphagia. Pt's present for both therapy sessions. Language is emerging to be a more fluent aphasia w/ jargon and "word salad" w/ poor auditory comprehension. Please see below for additional details. RECOMMENDATIONS Continue NPO w/ use of PEG Medications through PEG Aggressive oral care utilizing suction throughout PLAN: Continue current therapy plan. FREQUENCY TODAY: 2x ACTIVITIES FOR THE DAY: Cognition: Pt attended to task of looking at everyday objects from [place] w/ moderate cues to sustain attention. Pt able to accurately name 1/10 objects independently. Despite maximal cues and model, pt unable to repeat names for additional objects. Pt did not correctly utilize objects for intended functions (i.e., held onto brush despite cues to use brush to comb hair.) Targeting sustained attention, pt attended to task of listening to favorite music w/ maximal cues. Pt lethargic and requiring cues to maintain alertness therefore changed environment to promote wakefulness. After moving back to pt's room, pt sustained attention to music w/ minimal cues. Pt occasional tapping hand to mita and singing intermittently. Speech Care Center Manager Goals Will improve communication for basic wants and needs with: Moderate assist, Progressing Speech Short Term Goals Patient will follow concrete 1-part commands: 60% accuracy, Moderate cues Patient will identify object in a field of 2: 60% accuracy, Moderate cues Patient responds to yes/no questions regarding personal/ environmental information with nods, gestures, eye blinks, or pointin% accuracy, Moderate cues Will demonstrate confrontation naming with: 60% accuracy, Moderate cues Will perform automatic speech tasks with: 60% accuracy, Moderate cues Will participate in ongoing assessment of swallow bedside: Progressing Will participate in repeat instrumental swallow evaluation when clinically indicated: Progressing Therapist: Betsy Howe MS, L/CCC-INTERNAL CONSULTANT [phone] Date: 01/16/2017 * Marcos Pena MD - 01/16/2017 12:14 PM CDT Formatting of this note may be different from the original. 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 Phillip is a 66 y/o female who was found to have left frontal parenchymal hemorrhage s/p evacuation and EVD placement and subsequent removal. Rehabilitation: Rehab Dx: IPH Therapy: PT, OT, ST Daily Functional Update: Transfers Device Sit to Stand Transfer: Assistive Device: Hand Hold Assist (01/15/2017 10:00 AM) Transfer: Sit to Stand: Maximum assistance;With two person (vs minimal assist) ( 01/15/2017 10:00 AM) Gait Device Assist Required Distance Gait: Assistive Device: Hand Hold Assist (01/14/2017 10:30 AM) Gait: Assist Level: Two person assist (moderate assist 1st; minimal assist 2nd) (01/14/2017 10:30 AM) Gait Distance: 45 feet (01/14/2017 10:30 AM) Dressing Lower Body LE Dressing Assist: Total Assist (01/12/2017 8:01 AM) [facility], Left Frontal -Admitted to the [facility] on 12/22/2016with alarge left frontal parenchymal hemorrhage -S/p Left frontal burrhole craniotomy for evacuation 12/25 and EVD placement -CTA negative for aneurysm or AVM; MRI did not show any obvious enhancing lesion or abnormal vascular flow voids -01/08 pt not following commands and regression in therapies -CT head 01/08: Interval decrease in left frontal parenchymal hematoma with surrounding low density edema and some expected evolution. Slight decrease in mild [id number] midline shift with improvement in local mass effect. -continue Provigil for neuro-stimulation -Global Aphasia: intermittent automatic phrases otherwise non-fluent with poor comprehension; consider Aricept -Motor Apraxia, Right Hemiparesis: work with PT, OT AMS -Pt therapies pt became unresponsive for short period of time 01/15 -Concern for seizure like activity -Neuro consulted, appreciate reccs >Continue keppra at increased dose 750mg BID until f/u with neurology Dysphagia -Currently NPO -s/p PEG placement 01/02 -Transitioned to bolus TF's UTI, Ecoli Faecium, Completed course of treatment with levaquin 01/13 Hyperglycemia -Recent A1c 5.2 -MDCF Normocytic Anemia -Stable, continue to monitor Hypernatremia - resolved -Continue current free water flushes 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 Bowel: continue oral laxatives to promote regular bowel movements Bladder: Pt requiring ISC, last straight cath 01/13. Continue PVRs w/ ISC PRN. Wean doxazosin. Continue toileting schedule. Nutrition: NPO for now, continue TF's Mental Health: consult neuropsychology to provide support / counseling DVT Prophylaxis: Heparin Marcos Pena MD Pager [phone] Subjective No events overnight. Pt resting comfortably in bed. Per she got out of tiny on her own yesterday- alarms went off and aide guided her back to bed without incident. Denies any other issues. Objective Vital Signs: Last Filed Vital Signs: 24 Hour Range BP: 136/70 (01/16 325) Temp: 36.6 C (97.8 F) (01/16 325) Pulse: 111 (01/16 325) Respirations: 19 PER MINUTE (01/16 325) SpO2: 93 % (01/16 325) O2 Delivery: None (Room Air) (01/16 325) BP: (88-136)/(54-70) Temp: [36.5 C (97.7 F)-36.6 C (97.8 F)] Pulse: [75-111] Respirations: [19 PER MINUTE] SpO2: [93 %-95 %] O2 Delivery: None (Room Air) Vitals: 01/06/17 1619 01/12/17 0635 Weight: 52.1 kg (114 lb 14.4 oz) 52.7 kg (116 lb 2.9 oz) Intake/Output Summary: (Last 24 hours) Intake/Output Summary (Last 24 hours) at 01/16/17 1214 Last data filed at 01/16/17 1015 Gross per 24 hour Intake 3550 ml Output 0 ml Net 3550 ml Stool Occurrence: 1 Oral Diet Order: NPO Last BM Date: 01/15/17 Bladder Accident: 1 Lab: Results for orders placed or performed during the hospital encounter of (from the past 24 hour(s)) POC GLUCOSE Collection Time: 01/15/17 5:24 PM # # Low-High Glucose, POC 93 70 - 100 MG/DL POC GLUCOSE Collection Time: 01/15/17 9:21 PM # # Low-High Glucose, POC 131 (H) 70 - 100 MG/DL POC GLUCOSE Collection Time: 01/16/17 3:12 AM # # Low-High Glucose, POC 104 (H) 70 - 100 MG/DL CBC Collection Time: 01/16/17 8:12 AM # # Low-High White Blood Cells 4.7 4.5 - 11.0 K/UL RBC 3.32 (L) 4.0 - 5.0 M/UL Hemoglobin 10.1 (L) 12.0 - 15.0 GM/DL Hematocrit 29.8 (L) 36 - 45 % MCV 89.8 80 - 100 FL MCH 30.6 26 - 34 PG MCHC 34.0 32.0 - 36.0 G/DL RDW 16.7 (H) 11 - 15 % Platelet Count 139 (L) 150 - 400 K/UL MPV 9.5 7 - 11 FL BASIC METABOLIC PANEL Collection Time: 01/16/17 8:12 AM # # Low-High Sodium 137 137 - 147 MMOL/L Potassium 3.9 3.5 - 5.1 MMOL/L Chloride 102 98 - 110 MMOL/L CO2 28 21 - 30 MMOL/L Anion Gap 7 3 - 12 Glucose 202 (H) 70 - 100 MG/DL Blood Urea Nitrogen 15 7 - 25 MG/DL Creatinine 0.61 0.4 - 1.00 MG/DL Calcium 8.8 8.5 - 10.6 MG/DL eGFR Non >60 >60 mL/min eGFR >60 >60 mL/min POC GLUCOSE Collection Time: 01/16/17 12:00 PM # # Low-High Glucose, POC 120 (H) 70 - 100 MG/DL Physical Exam VS: BP 136/70 (BP Source: Arm, Left) | Pulse 111 | Temp 36.6 C (97.8 F) | Ht 152.4 cm (60") | Wt 52.7 kg (116 lb 2.9 oz) | SpO2 93% | BMI 22.69 kg/m2 Gen: No Acute Distress, alertness mildly improved HEENT: sclera anicteric, conjunctiva not injected Neck: full AROM Heart: Regular Rate & Rhythm, no m/g/r Lungs: Clear to auscultation bilaterally, no w/r/r Abdomen: Soft, non-tender, non-distended, +BS : No peter Neuro: Speech/ Cognitive: global aphasia, speech characterized by automatic responses, inconsistent verbal command follow Motor: mild right hemiparesis comparatively with at least anti-gravity strength in all limbs Therapy Notes & Labs Reviewed. Marcos Pena MD Pager [phone] Associated attestation - Flash Garcia MD - 01/16/2017 9:12 PM CDT Formatting of this note may be different from the original. ATTESTATION I personally performed the de anda portions of the E/M visit, discussed case with resident and concur with resident documentation of history, physical exam, assessment, and treatment plan unless otherwise noted. Staff name: Flash Garcia MD Date: 01/16/2017 * Kumar Fong RN - 01/15/2017 4:00 PM CDT BP is 88/54, asymptomatic & denying dizzness. Alert, wide awake & resting in bed after all day therapies. Doctor was notified of low BP. Will monitor patient closely for any condition change. * Betsy Howe - 01/15/2017 9:34 AM CDT SPEECH-LANGUAGE PATHOLOGY REHAB SPEECH DAILY NOTE SUMMARY: Pt seen for two 30-minute therapy sessions targeting language, cognition, and dysphagia. Pt's present for both therapy sessions. Attention improved in both therapy sessions w/ minimal cues needed to re-direct attention to tasks. Language is emerging to be a more fluent aphasia w/ jargon and "word salad" w/ poor auditory comprehension. Please see below for additional details. RECOMMENDATIONS Continue NPO w/ use of PEG Medications through PEG Aggressive oral care utilizing suction throughout PLAN: Continue current therapy plan. FREQUENCY TODAY: 2x ACTIVITIES FOR THE DAY: Cognition: Pt attended to a magazine w/ moderate cues. Pt would occassionally flip several pages and then became distracted requiring additional cues. Pt attended to task of picking up playing cards w/ minimal cues. When asked to sort cards into piles by color, despite INTERNAL CONSULTANT modeling, pt was not successful sorting by color. Pt did, however, vegetable picker cards, lay them on the table, and fan out cards in her hand as if playing cards. Provided pt w/ paper and pen in attempt to write. Pt however only wrote word "at " despite cues and encouragement to write her name. Dysphagia: Oral care provided utilizing suction throughout. Provided pt w/ toothette. Pt did not demonstrate correct use of toothbrush and required [id number] assistance to brush teeth. Trials of small ice chips provided. Bolus withdraw, formation, and AP transfer were functional. Mastication time was minimally prolonged. Swallow initiation was mildly delayed w/ decreased hyolaryngeal elevation as assessed via laryngeal palpation. No overt s/s aspiration were appreciated. Speech Care Center Manager Goals Will improve communication for basic wants and needs with: Moderate assist, Progressing Speech Short Term Goals Patient will follow concrete 1-part commands: 60% accuracy, Moderate cues Patient will identify object in a field of 2: 60% accuracy, Moderate cues Patient responds to yes/no questions regarding personal/ environmental information with nods, gestures, eye blinks, or pointin% accuracy, Moderate cues Will demonstrate confrontation naming with: 60% accuracy, Moderate cues Will perform automatic speech tasks with: 60% accuracy, Moderate cues Will participate in ongoing assessment of swallow bedside: Progressing Will participate in repeat instrumental swallow evaluation when clinically indicated: Progressing Therapist: Betsy Howe MS, L/CCC-INTERNAL CONSULTANT [phone] Date: 01/15/2017 * Flash Garcia MD - 01/15/2017 7:46 AM CDT Formatting of this note may be different from the original. ATTESTATION I personally performed the de anda portions of the E/M visit, discussed case with resident and concur with resident documentation of history, physical exam, assessment, and treatment plan unless otherwise noted. I have made adjustments and additions directly to the text below when indicated. 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 Phillip is a 66 y/o female who was found to have left frontal parenchymal hemorrhage s/p evacuation and EVD placement and subsequent removal. Rehabilitation: Rehab Dx: IPH Therapy: PT, OT, ST Daily Functional Update: Transfers Device Sit to Stand Transfer: Assistive Device: Hand Hold Assist (01/15/2017 10:00 AM) Transfer: Sit to Stand: Maximum assistance;With two person (vs minimal assist) ( 01/15/2017 10:00 AM) Gait Device Assist Required Distance Gait: Assistive Device: Hand Hold Assist (01/14/2017 10:30 AM) Gait: Assist Level: Two person assist (moderate assist 1st; minimal assist 2nd) (01/14/2017 10:30 AM) Gait Distance: 45 feet (01/14/2017 10:30 AM) Dressing Lower Body LE Dressing Assist: Total Assist (01/12/2017 8:01 AM) IPH, Left Frontal -Admitted to the [facility] on 12/22/2016with alarge left frontal parenchymal hemorrhage -S/p Left frontal burrhole craniotomy for evacuation 12/25 and EVD placement -CTA negative for aneurysm or AVM; MRI did not show any obvious enhancing lesion or abnormal vascular flow voids -01/08 pt not following commands and regression in therapies -CT head 01/08: Interval decrease in left frontal parenchymal hematoma with surrounding low density edema and some expected evolution. Slight decrease in mild [id number] midline shift with improvement in local mass effect. -continue Provigil for neuro-stimulation -Global Aphasia: intermittent automatic phrases otherwise non-fluent with poor comprehension; consider Aricept -Motor Apraxia, Right Hemiparesis: work with PT, OT AMS -Pt therapies pt became unresponsive for short period of time 01/15 -Concern for seizure like activity -Neuro consulted, appreciate reccs >Continue keppra at increased dose 750mg BID until f/u with neurology Dysphagia -Currently NPO -s/p PEG placement 01/02 -Transitioned to bolus TF's UTI, Ecoli Faecium, Completed course of treatment with levaquin 01/13 Hyperglycemia -Recent A1c 5.2 -MDCF Normocytic Anemia -Stable, continue to monitor Hypernatremia - resolved -Continue current free water flushes 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 Bowel: continue oral laxatives to promote regular bowel movements Bladder: Pt requiring ISC, last straight cath 01/13. Continue PVRs w/ ISC PRN. Wean doxazosin. Continue toileting schedule. Nutrition: NPO for now, continue TF's Mental Health: consult neuropsychology to provide support / counseling DVT Prophylaxis: Heparin Paul Smith DO Pager [phone] Subjective No events overnight. Pt resting comfortably in chair with in room when seen this afternoon. Pt stated she was "doing fine" and slept "fine" last night. Pt had no complaints when seen. Per she hasn't been complaining of generalized pain, insomnia, RIVERA. Objective Vital Signs: Last Filed Vital Signs: 24 Hour Range BP: 101/62 (01/16 408) Temp: 36.7 C (98.1 F) (01/16 408) Pulse: 81 (01/16 408) Respirations: 18 PER MINUTE (01/16 408) SpO2: 99 % (01/16 408) O2 Delivery: None (Room Air) (01/16 408) BP: (94-101)/(60-62) Temp: [36.6 C (97.9 F)-36.7 C (98.1 F)] Pulse: [81-106] Respirations: [18 PER MINUTE] SpO2: [95 %-99 %] O2 Delivery: None (Room Air) Vitals: 01/06/17 1619 01/12/17 0635 Weight: 52.1 kg (114 lb 14.4 oz) 52.7 kg (116 lb 2.9 oz) Intake/Output Summary: (Last 24 hours) Intake/Output Summary (Last 24 hours) at 01/15/17 0747 Last data filed at 01/15/17 0145 Gross per 24 hour Intake 2800 ml Output 225 ml Net 2575 ml Stool Occurrence: 1 BVI (Bladder Scan)(mL): 33 milliliters (PVR) (01/14/17 0901) Oral Diet Order: NPO Last BM Date: 01/13/17 Bladder Accident: 1 Lab: Results for orders placed or performed during the hospital encounter of (from the past 24 hour(s)) POC GLUCOSE Collection Time: 01/14/17 10:43 AM # # Low-High Glucose, POC 239 (H) 70 - 100 MG/DL CBC Collection Time: 01/14/17 11:05 AM # # Low-High White Blood Cells 5.2 4.5 - 11.0 K/UL RBC 3.79 (L) 4.0 - 5.0 M/UL Hemoglobin 11.6 (L) 12.0 - 15.0 GM/DL Hematocrit 34.9 (L) 36 - 45 % MCV 92.1 80 - 100 FL MCH 30.5 26 - 34 PG MCHC 33.1 32.0 - 36.0 G/DL RDW 17.0 (H) 11 - 15 % Platelet Count 171 150 - 400 K/UL MPV 9.3 7 - 11 FL COMPREHENSIVE METABOLIC PANEL Collection Time: 01/14/17 11:05 AM # # Low-High Sodium 135 (L) 137 - 147 MMOL/L [...] - 12 eGFR Non >60 >60 mL/min eGFR >60 >60 mL/min POC GLUCOSE Collection Time: 01/14/17 12:39 PM # # Low-High Glucose, POC 253 (H) 70 - 100 MG/DL POC GLUCOSE Collection Time: 01/14/17 5:51 PM # # Low-High Glucose, POC 153 (H) 70 - 100 MG/DL POC GLUCOSE Collection Time: 01/14/17 9:24 PM # # Low-High Glucose, POC 140 (H) 70 - 100 MG/DL POC GLUCOSE Collection Time: 01/15/17 4:00 AM # # Low-High Glucose, POC 93 70 - 100 MG/DL POC GLUCOSE Collection Time: 01/15/17 7:01 AM # # Low-High Glucose, POC 113 (H) 70 - 100 MG/DL Physical Exam VS: BP 101/62 (BP Source: Arm, Right) | Pulse 81 | Temp 36.7 C (98.1 F) | Ht 152.4 cm (60") | Wt 52.7 kg (116 lb 2.9 oz) | SpO2 99% | BMI 22.69 kg/m2 Gen: No Acute Distress, alertness mildly improved HEENT: sclera anicteric, conjunctiva not injected Neck: full AROM Heart: Regular Rate & Rhythm, no m/g/r Lungs: Clear to auscultation bilaterally, no w/r/r Abdomen: Soft, non-tender, non-distended, +BS : No peter Neuro: Speech/ Cognitive: global aphasia, speech characterized by automatic responses, inconsistent verbal command follow Motor: mild right hemiparesis comparatively with at least anti-gravity strength in all limbs Therapy Notes & Labs Reviewed. Paul Smith DO Pager [phone] * Betsy Howe - 01/14/2017 3:16 PM CDT SPEECH-LANGUAGE PATHOLOGY REHAB SPEECH DAILY NOTE SUMMARY: Pt seen for two 30-minute therapy sessions targeting language, cognition, and dysphagia. Pt's present for both therapy sessions. Attention improved in both therapy sessions w/ minimal cues needed to re-direct attention to tasks. Please see below for additional details. RECOMMENDATIONS Continue NPO w/ use of PEG Medications through PEG Aggressive oral care utilizing suction throughout PLAN: Continue current therapy plan. FREQUENCY TODAY: 2x ACTIVITIES FOR THE DAY: Language: For answering simple wh- questions regarding herself, pt accurately reported her name and month/date. Pt unable to name year or favorite color. Named 's name w/ cues. Cognition: Pt attended to a magazine w/ moderate-maximal cues. Pt would occassionally flip several pages and then became distracted requiring additional cues. Pt attended to task of picking up playing cards. When asked to sort cards into piles by color, despite INTERNAL CONSULTANT modeling, pt was not successful sorting by color. Pt did, however, vegetable picker cards, lay them on the table, and fan out cards in her hand as if playing cards. Pt attended to this task for over 10 minutes w/ minimal cues. Pt also attended to task of picking up objects on room table to naming them. Jargon paraphasias noted as pt called a anni a "tickle mob." Speech Correction Goals Will improve communication for basic wants and needs with: Moderate assist, Progressing Speech Short Term Goals Patient will follow concrete 1-part commands: 60% accuracy, Moderate cues Patient will identify object in a field of 2: 60% accuracy, Moderate cues Patient responds to yes/no questions regarding personal/ environmental information with nods, gestures, eye blinks, or pointin% accuracy, Moderate cues Will demonstrate confrontation naming with: 60% accuracy, Moderate cues Will perform automatic speech tasks with: 60% accuracy, Moderate cues Will participate in ongoing assessment of swallow bedside: Progressing Will participate in repeat instrumental swallow evaluation when clinically indicated: Progressing Therapist: Betsy Howe MS, L/CCC-INTERNAL CONSULTANT [phone] Date: 01/14/2017 * Flash Garcia MD - 01/14/2017 11:04 AM CDT Formatting of this note may be different from the original. ATTESTATION I personally performed the de anda portions of the E/M visit, discussed case with resident and concur with resident documentation of history, physical exam, assessment, and treatment plan unless otherwise noted. I have made adjustments and additions directly to the text below when indicated. I have the following additional comments: Patient with episode of "unresponsiveness" in therapy this morning. No new focal deficits. Details of event are fairly unclear but she has had waxing and waning mentation her entire stay. Repeat Head CT negative for acute changes and only lab abnormality is down-trending sodium for which I will decrease her free water flushes. Will check orthostatics. Will also consult neuro and get Brain MRI for further work-up. Continue on current dose Keppra 500 mg BID for AED for now (neurosugery recommends until follow-up). Recently completed antibiotic course for UTI on 01/13. 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 Phillip is a 66 y/o female who was found to have left frontal parenchymal hemorrhage s/p evacuation and EVD placement and subsequent removal. Rehabilitation: Rehab Dx: IPH Therapy: PT, OT, ST Daily Functional Update: Transfers Device Sit to Stand Transfer: Assistive Device: Hand Hold Assist (01/13/2017 8:30 AM) Transfer: Sit to Stand: Minimum assistance (Ax2 with hand held assist when pt is agreeable) (01/13/2017 8:30 AM) Gait Device Assist Required Distance Gait: Assistive Device: Hand Hold Assist (01/13/2017 8:30 AM) Gait: Assist Level: Facilitation of weight shift (Ax2) (01/13/2017 8:30 AM) Gait Distance: 305 feet (+ 250 ft) (01/13/2017 8:30 AM) Dressing Lower Body LE Dressing Assist: Total Assist (01/12/2017 8:01 AM) IPH, Left Frontal -Admitted to the [facility] on 12/22/2016with alarge left frontal parenchymal hemorrhage -S/p Left frontal burrhole craniotomy for evacuation 12/25 and EVD placement -CTA negative for aneurysm or AVM; MRI did not show any obvious enhancing lesion or abnormal vascular flow voids -01/08 pt not following commands and regression in therapies -CT head 01/08: Interval decrease in left frontal parenchymal hematoma with surrounding low density edema and some expected evolution. Slight decrease in mild [id number] midline shift with improvement in local mass effect. >Continue keppra 500mg BID. Per NSG continue for now until f/u -Global Aphasia: intermittent automatic phrases otherwise non-fluent with poor comprehension; consider Aricept -Motor Apraxia, Right Hemiparesis: work with PT, OT AMS -Pt therapies pt became unresponsive for short period of time -When seen pt localized to sternal rub >STAT CT head and labs >If initial workup negative, will likely proceed with MRI head and consult neurology Dysphagia -Currently NPO -s/p PEG placement 01/02 -Transitioned to bolus TF's UTI -Urine Cx growing Ecoli Faecium, susceptible to levaquin >Completed course of treatment with levaquin 01/13 Hyperglycemia -Recent A1c 5.2 -MDCF Normocytic Anemia -Stable, continue to monitor Hypernatremia - resolved -Continue current free water flushes SCOTT- resolved >Continue to monitor 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 Bowel: continue oral laxatives to promote regular bowel movements Bladder: Pt requiring ISC, last straight cath 01/09. Continue PVRs w/ ISC PRN. Continue doxazosin. Continue toileting schedule. Nutrition: NPO for now, continue TF's Mental Health: consult neuropsychology to provide support / counseling DVT Prophylaxis: Heparin Paul Smith DO Pager [phone] Subjective No acute events overnight. When seen on rounds this am pt was looking at old news paper articles she wrote with SO at bedside. However shortly after when working with therapies pt became unresponsive. When seen pt was able to localize painful stimuli. STAT labs and CT head ordered. Objective Vital Signs: Last Filed Vital Signs: 24 Hour Range BP: 116/51 (01/14 449) Temp: 36.3 C (97.3 F) (01/14 449) Pulse: 81 (01/14 449) Respirations: 18 PER MINUTE (01/14 449) SpO2: 97 % (01/14 449) O2 Delivery: None (Room Air) (01/14 449) BP: (116-119)/(51-54) Temp: [36.3 C (97.3 F)-36.7 C (98.1 F)] Pulse: [81-96] Respirations: [18 PER MINUTE] SpO2: [97 %-99 %] O2 Delivery: None (Room Air) Vitals: 01/06/17 1619 01/12/17 0635 Weight: 52.1 kg (114 lb 14.4 oz) 52.7 kg (116 lb 2.9 oz) Intake/Output Summary: (Last 24 hours) Intake/Output Summary (Last 24 hours) at 01/14/17 1104 Last data filed at 01/14/17 0901 Gross per 24 hour Intake 2050 ml Output 225 ml Net 1825 ml Stool Occurrence: 1 BVI (Bladder Scan)(mL): 33 milliliters (PVR) (01/14/17 0901) Oral Diet Order: NPO Last BM Date: 01/13/17 Bladder Accident: 1 Lab: Results for orders placed or performed during the hospital encounter of (from the past 24 hour(s)) POC GLUCOSE Collection Time: 01/13/17 3:34 PM # # Low-High Glucose, POC 170 (H) 70 - 100 MG/DL POC GLUCOSE Collection Time: 01/13/17 9:41 PM # # Low-High Glucose, POC 217 (H) 70 - 100 MG/DL POC GLUCOSE Collection Time: 01/14/17 3:27 AM # # Low-High Glucose, POC 126 (H) 70 - 100 MG/DL POC GLUCOSE Collection Time: 01/14/17 6:37 AM # # Low-High Glucose, POC 132 (H) 70 - 100 MG/DL CBC Collection Time: 01/14/17 7:09 AM # # Low-High White Blood Cells 4.9 4.5 - 11.0 K/UL RBC 3.60 (L) 4.0 - 5.0 M/UL Hemoglobin 11.1 (L) 12.0 - 15.0 GM/DL Hematocrit 32.9 (L) 36 - 45 % MCV 91.3 80 - 100 FL MCH 30.7 26 - 34 PG MCHC 33.6 32.0 - 36.0 G/DL RDW 16.6 (H) 11 - 15 % Platelet Count 142 (L) 150 - 400 K/UL MPV 9.1 7 - 11 FL BASIC METABOLIC PANEL Collection Time: 01/14/17 7:09 AM # # Low-High Sodium 138 137 - 147 MMOL/L Potassium 4.4 3.5 - 5.1 MMOL/L Chloride 106 98 - 110 MMOL/L CO2 22 21 - 30 MMOL/L Anion Gap 10 3 - 12 Glucose 123 (H) 70 - 100 MG/DL Blood Urea Nitrogen 23 7 - 25 MG/DL Creatinine 0.67 0.4 - 1.00 MG/DL Calcium 9.2 8.5 - 10.6 MG/DL eGFR Non >60 >60 mL/min eGFR >60 >60 mL/min POC GLUCOSE Collection Time: 01/14/17 10:43 AM # # Low-High Glucose, POC 239 (H) 70 - 100 MG/DL Physical Exam VS: BP 116/51 (BP Source: Arm, Right) | Pulse 81 | Temp 36.3 C (97.3 F) | Ht 152.4 cm (60") | Wt 52.7 kg (116 lb 2.9 oz) | SpO2 97% | BMI 22.69 kg/m2 Gen: No Acute Distress, seen in wheelchair at bedside HEENT: sclera anicteric, conjunctiva not injected Neck: full AROM Heart: Regular Rate & Rhythm, no m/g/r Lungs: Clear to auscultation bilaterally, no w/r/r Abdomen: Soft, non-tender, non-distended, +BS : No peter Neuro: Speech/ Cognitive: global aphasia, speech characterized by automatic responses, inconsistent verbal command follow Motor: mild right hemiparesis comparatively with at least anti-gravity strength in all limbs Therapy Notes & Labs Reviewed. Paul Smith DO Pager [phone] * Debbi Lyle - 01/13/2017 2:22 PM CDT CLINICAL NUTRITION Clinical Nutrition Follow-Up Summary Nutrition Assessment of Patient: Malnutrition Assessment: Malnutrition present Malnutrition Context: ICD-10 code E43: Chronic illness/Severe malnutrition Oral Diet Order: NPO Intake (calories) Daily Average : 1375 kilocalories (90% of minimum goal) Intake (protein) Daily Average : 62 grams (95% of goal) Current EN Order: Isosource 1.5, 1 carton QID + 300 ml water bolus Q4H + 30 ml water flush pre/post bolus feed. 66 yo female w/ PMH including dementia, chronic back pain, TIA; transferred to [facility] 12/22 with large left frontal parenchymal hemorrhage on AC Plavix and ASA for hx TIA 3 mos ago. PEG placed 01/02. Isosource 1.5 EN feeds started per NGT 12/25. [address] 12/29- met 55% min kcal goal and 58% min protein goal. Due to rescheduling of PEG and TF holds, EN avg decreased 01/01-01/04, meeting 46% of kcal and 49% of protein needs. Recent EN avg 01/10-01/12 met 90-95% of est needs with no s/s of intolerance. Met with spouse today who reported no nutrition or GI concerns; RN confirmed. Pt was a bit more alert than previous visit, but remains confused. Last BM 01/12. No edema or pressure injuries noted. Weight is stable since IPR admit. Recommendation: Continue current EN order with addition of 1 pack Prosource daily. Provides 1560 kcal, 83g protein, and 760ml free water from EN. Intervention / Plan: Monitor EN rate/tolerance. Monitor wt, labs, skin, gi, meds, fluids. Nutrition Diagnosis: Nutrition Diagnosis: Altered GI function Etiology: swallowing difficulty Signs & Symptoms: NPO with EN Goals: EN tolerated and meeting >85% of nutritional needs Time Frame: Within 5 Days Status: Met;Ongoing Debbi Lyle RD, LD *0425 * Flash Garcia MD - 01/13/2017 1:45 PM CDT Formatting of this note may be different from the original. ATTESTATION I personally performed the de anda portions of the E/M visit, discussed case with resident and concur with resident documentation of history, physical exam, assessment, and treatment plan unless otherwise noted. 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 Phillip is a 66 y/o female who was found to have left frontal parenchymal hemorrhage s/p evacuation and EVD placement and subsequent removal. Rehabilitation: Rehab Dx: IPH Therapy: PT, OT, ST Daily Functional Update: Transfers Device Sit to Stand Transfer: Assistive Device: Hand Hold Assist (01/13/2017 8:30 AM) Transfer: Sit to Stand: Minimum assistance (Ax2 with hand held assist when pt is agreeable) (01/13/2017 8:30 AM) Gait Device Assist Required Distance Gait: Assistive Device: Hand Hold Assist (01/13/2017 8:30 AM) Gait: Assist Level: Facilitation of weight shift (Ax2) (01/13/2017 8:30 AM) Gait Distance: 305 feet (01/13/2017 8:30 AM) Dressing Lower Body LE Dressing Assist: Total Assist (01/12/2017 8:01 AM) IPH, Left Frontal -Admitted to the [facility] on 12/22/2016with alarge left frontal parenchymal hemorrhage -S/p Left frontal burrhole craniotomy for evacuation 12/25 and EVD placement -CTA negative for aneurysm or AVM; MRI did not show any obvious enhancing lesion or abnormal vascular flow voids -01/08 pt not following commands and regression in therapies -CT head 01/08: Interval decrease in left frontal parenchymal hematoma with surrounding low density edema and some expected evolution. Slight decrease in mild [id number] midline shift with improvement in local mass effect. >Continue keppra 500mg BID. 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 Bowel: continue oral laxatives to promote regular bowel movements Bladder: Pt requiring ISC, last straight cath 01/09. Continue PVRs w/ ISC PRN. Continue doxazosin. Continue toileting schedule. Nutrition: NPO for now, continue TF's Mental Health: consult neuropsychology to provide support / counseling DVT Prophylaxis: Heparin Paul Smith DO Pager [phone] Subjective No issues overnight. Pt seen in room after working with therapies, present in room. Pt was appeared tired which therapy said was normal for her in the afternoon. All of pt's husbands questions were answered. Unable to obtain ROS given pt's aphasia Objective Vital Signs: Last Filed Vital Signs: 24 Hour Range BP: 115/58 (01/13 353) Temp: 36.7 C (98 F) (01/13 353) Pulse: 104 (01/13 353) Respirations: 18 PER MINUTE (01/13 353) SpO2: 100 % (01/13 353) O2 Delivery: None (Room Air) (01/13 353) BP: (104-115)/(56-58) Temp: [36.3 C (97.3 F)-36.7 C (98 F)] Pulse: [95-104] Respirations: [18 PER MINUTE] SpO2: [100 %] O2 Delivery: None (Room Air) Intensity Pain Scale 0-10 (Pain 1): Asleep (01/13/17 0600) Vitals: 01/06/17 1619 01/12/17 0635 Weight: 52.1 kg (114 lb 14.4 oz) 52.7 kg (116 lb 2.9 oz) Intake/Output Summary: (Last 24 hours) Intake/Output Summary (Last 24 hours) at 01/13/17 1346 Last data filed at 01/13/17 1100 Gross per 24 hour Intake 1790 ml Output 150 ml Net 1640 ml Stool Occurrence: 1 BVI (Bladder Scan)(mL): 202 milliliters (post brief incontinence) (01/13/17 0828 ) Oral Diet Order: NPO Last BM Date: 01/12/17 Straight Cath (mL): 150 (01/13/17424) Bladder Accident: 1 Lab: Results for orders placed or performed during the hospital encounter of (from the past 24 hour(s)) POC GLUCOSE Collection Time: 01/12/17 4:53 PM # # Low-High Glucose, POC 161 (H) 70 - 100 MG/DL POC GLUCOSE Collection Time: 01/12/17 9:24 PM # # Low-High Glucose, POC 165 (H) 70 - 100 MG/DL POC GLUCOSE Collection Time: 01/13/17 2:54 AM # # Low-High Glucose, POC 106 (H) 70 - 100 MG/DL Physical Exam VS: BP 115/58 (BP Source: Arm, Right) | Pulse 104 | Temp 36.7 C (98 F) | Ht 152.4 cm (60") | Wt 52.7 kg (116 lb 2.9 oz) | SpO2 100% | BMI 22.69 kg/m2 Gen: No Acute Distress, seen ambulating with therapy HEENT: sclera anicteric, conjunctiva not injected Neck: full AROM Heart: Regular Rate & Rhythm, no m/g/r Lungs: Clear to auscultation bilaterally, no w/r/r Abdomen: Soft, non-tender, non-distended, +BS : No peter Neuro: Speech/ Cognitive: global aphasia, speech characterized by automatic responses, inconsistent verbal command follow Motor: mild right hemiparesis comparatively with at least anti-gravity strength in all limbs, ambulates with narrow base of support and unsteady gate Therapy Notes & Labs Reviewed. Paul Smith DO Pager [phone] Betsy Guerrero - 01/13/2017 1:09 PM CDT SPEECH-LANGUAGE PATHOLOGY REHAB SPEECH DAILY NOTE SUMMARY: Pt seen for two 30-minute therapy sessions targeting language, cognition, and dysphagia. Pt's present for both therapy sessions. Pt's attention was improved in first therapy session compared to previous therapy sessions however in second therapy session pt w/ significantly decreased attention/participation in therapy tasks. Therapy tasks limited as pt not participating. Pt closed eyes for all tasks. Maximal cues and encouragement provided. Please see below for additional details. RECOMMENDATIONS Continue NPO w/ use of PEG Medications through PEG Aggressive oral care utilizing suction throughout PLAN: Continue current therapy plan. FREQUENCY TODAY: 2x ACTIVITIES FOR THE DAY: Language: Pt was 0% accurate w/ naming common objects. Pt w/ occassional verbalizations though words were jargon and not real words. Pt followed one-step commands w/ 33% accuracy. Pt then no longer responding to task. For answering simple wh- questions regarding herself, pt w/ no response when asked her name, date of , and children's names. Pt accurately responded when asked her 's name. Cognition: Pt attended to task of picking up common objects and attempting to name the items w/ fair attention. group home through task, pt closed eyes and did not continue participating w/ task. After maximal cues provided, pt began attending to task again. Note some incorrect use of objects during task (i.e., holding comb by brush end). In second therapy session, INTERNAL CONSULTANT attempted repositioning pt, sternal rubs, and encouragement but pt continued to keep eyes closed throughout therapy session only intermittently opening eyes. Dysphagia: Pt's alertness level not appropriate for PO trials this date. Speech Care Center Manager Goals Will improve communication for basic wants and needs with: Moderate assist, Progressing Speech Short Term Goals Patient will follow concrete 1-part commands: 60% accuracy, Moderate cues Patient will identify object in a field of 2: 60% accuracy, Moderate cues Patient responds to yes/no questions regarding personal/ environmental information with nods, gestures, eye blinks, or pointin% accuracy, Moderate cues Will demonstrate confrontation naming with: 60% accuracy, Moderate cues Will perform automatic speech tasks with: 60% accuracy, Moderate cues Will participate in ongoing assessment of swallow bedside: Progressing Will participate in repeat instrumental swallow evaluation when clinically indicated: Progressing Therapist: Betsy Howe MS, L/CCC-INTERNAL CONSULTANT [phone] Date: 01/13/2017 * Kumar Fong RN - 01/12/2017 2:50 PM CDT Pt is rolling & curling in bed a lot. High setting of bed alarm set up for patient safety. Ordered heating pad for patient's chronic back pain. Spouse is at BS, supportive. * Flash Garcia MD - 01/12/2017 11:31 AM CDT Formatting of this note may be different from the original. ATTESTATION I personally performed the de anda portions of the E/M visit, discussed case with resident and concur with resident documentation of history, physical exam, assessment, and treatment plan unless otherwise noted. I have made adjustments and additions directly to the text below when indicated. 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 Phillip is a 66 y/o female who was found to have left frontal parenchymal hemorrhage s/p evacuation and EVD placement and subsequent removal. Rehabilitation: Rehab Dx: IP Therapy: PT, OT, ST Daily Functional Update: Transfers Device Sit to Stand Transfer: Assistive Device: Hand Hold Assist (01/10/2017 4:00 PM) Transfer: Sit to Stand: Moderate assistance (01/10/2017 4:00 PM) Gait Device Assist Required Distance Gait: Assistive Device: Hand Hold Assist (01/10/2017 4:00 PM) Gait: Assist Level: Two person assist (01/10/2017 4:00 PM) Gait Distance: 30 feet (20) (01/10/2017 4:00 PM) Dressing Lower Body LE Dressing Assist: Total Assist (01/12/2017 8:01 AM) IPH, Left Frontal -Admitted to the [facility] on 12/22/2016with alarge left frontal parenchymal hemorrhage -S/p Left frontal burrhole craniotomy for evacuation 12/25 and EVD placement -CTA negative for aneurysm or AVM; MRI did not show any obvious enhancing lesion or abnormal vascular flow voids -01/08 pt not following commands and regression in therapies -CT head 01/08: Interval decrease in left frontal parenchymal hematoma with surrounding low density edema and some expected evolution. Slight decrease in mild [id number] midline shift with improvement in local mass effect. 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 Bowel: continue oral laxatives to promote regular bowel movements Bladder: Pt requiring ISC, last straight cath 01/09. Continue PVRs w/ ISC PRN. Continue doxazosin. Continue toileting schedule. Nutrition: NPO for now, continue TF's Mental Health: consult neuropsychology to provide support / counseling DVT Prophylaxis: Heparin Paul Smith DO Pager [phone] Subjective No issues overnight/over the weekend. Pt resting comfortably in wc in the gym working with therapies when seen this am. Pt stated she was "fine" when seen on rounds. Unable to obtain ROS given pt's aphasia Objective Vital Signs: Last Filed Vital Signs: 24 Hour Range BP: 114/63 (01/12 322) Temp: 36.3 C (97.3 F) (01/12 322) Pulse: 82 (01/12 322) Respirations: 18 PER MINUTE (01/12 322) SpO2: 100 % (01/12 322) O2 Delivery: None (Room Air) (01/12 322) BP: (107-114)/(56-63) Temp: [36.3 C (97.3 F)-36.4 C (97.6 F)] Pulse: [82-107] Respirations: [18 PER MINUTE] SpO2: [99 %-100 %] O2 Delivery: None (Room Air) Vitals: 01/06/17 1619 01/12/17 0635 Weight: 52.1 kg (114 lb 14.4 oz) 52.7 kg (116 lb 2.9 oz) Intake/Output Summary: (Last 24 hours) Intake/Output Summary (Last 24 hours) at 01/12/17 1133 Last data filed at 01/12/17 0900 Gross per 24 hour Intake 3960 ml Output 0 ml Net 3960 ml Stool Occurrence: 1 BVI (Bladder Scan)(mL): 135 milliliters (01/12/17 0600) Oral Diet Order: NPO Last BM Date: 01/12/17 Lab: Results for orders placed or performed during the hospital encounter of (from the past 24 hour(s)) POC GLUCOSE Collection Time: 01/11/17 11:59 AM # # Low-High Glucose, POC 176 (H) 70 - 100 MG/DL POC GLUCOSE Collection Time: 01/11/17 6:06 PM # # Low-High Glucose, POC 162 (H) 70 - 100 MG/DL POC GLUCOSE Collection Time: 01/11/17 8:56 PM # # Low-High Glucose, POC 171 (H) 70 - 100 MG/DL POC GLUCOSE Collection Time: 01/12/17 4:11 AM # # Low-High Glucose, POC 153 (H) 70 - 100 MG/DL POC GLUCOSE Collection Time: 01/12/17 6:42 AM # # Low-High Glucose, POC 142 (H) 70 - 100 MG/DL CBC Collection Time: 01/12/17 7:03 AM # # Low-High White Blood Cells 7.3 4.5 - 11.0 K/UL RBC 3.65 (L) 4.0 - 5.0 M/UL Hemoglobin 11.3 (L) 12.0 - 15.0 GM/DL Hematocrit 32.9 (L) 36 - 45 % MCV 90.2 80 - 100 FL MCH 31.1 26 - 34 PG MCHC 34.4 32.0 - 36.0 G/DL RDW 15.7 (H) 11 - 15 % Platelet Count 170 150 - 400 K/UL MPV 9.7 7 - 11 FL BASIC METABOLIC PANEL Collection Time: 01/12/17 7:03 AM # # Low-High Sodium 138 137 - 147 MMOL/L Potassium 3.9 3.5 - 5.1 MMOL/L Chloride 105 98 - 110 MMOL/L CO2 26 21 - 30 MMOL/L Anion Gap 7 3 - 12 Glucose 146 (H) 70 - 100 MG/DL Blood Urea Nitrogen 19 7 - 25 MG/DL Creatinine 0.69 0.4 - 1.00 MG/DL Calcium 9.3 8.5 - 10.6 MG/DL eGFR Non >60 >60 mL/min eGFR >60 >60 mL/min Physical Exam VS: BP 114/63 (BP Source: Arm, Left) | Pulse 82 | Temp 36.3 C (97.3 F) | Ht 152.4 cm (60") | Wt 52.7 kg (116 lb 2.9 oz) | SpO2 100% | BMI 22.69 kg/m2 Gen: No Acute Distress, seen in wheelchair HEENT: sclera anicteric, conjunctiva not injected Neck: full AROM Heart: Regular Rate & Rhythm, no m/g/r Lungs: Clear to auscultation bilaterally, no w/r/r Abdomen: Soft, non-tender, non-distended, +BS : No peter Neuro: Speech/ Cognitive: global aphasia, speech characterized by automatic responses, inconsistent verbal command follow Motor: mild right hemiparesis comparatively with at least anti-gravity strength in all limbs Therapy Notes & Labs Reviewed. Paul Smith DO Pager [phone] * Betsy Howe - 01/12/2017 10:20 AM CDT SPEECH-LANGUAGE PATHOLOGY REHAB SPEECH DAILY NOTE SUMMARY: Pt seen for two 30-minute therapy sessions targeting language, cognition, and dysphagia. Pt's present for both therapy sessions. Pt w / significantly decreased attention/participation in therapy tasks. Therapy tasks limited as pt not participating. Pt closed eyes for all tasks. Maximal cues and encouragement provided. Please see below for additional details. RECOMMENDATIONS Continue NPO w/ use of PEG Medications through PEG Aggressive oral care utilizing suction throughout PLAN: Continue current therapy plan. FREQUENCY TODAY: 2x ACTIVITIES FOR THE DAY: Language: Pt was 61% accurate w/ moderate verbal cues during simple, egocentric yes/no questions. Cognition: Pt required maximal cues to sustain attention to simple tasks of answering egocentric questions. Pt kept eyes closed through majority of therapy sessions. Attempted repositioning pt, sternal rubs, and encouragement but pt continued to keep eyes closed throughout therapy session only intermittently opening eyes. Dysphagia: Pt's alertness level not appropriate for oral care or PO trials this date. Speech Care Center Manager Goals Will improve communication for basic wants and needs with: Moderate assist, Progressing Speech Short Term Goals Patient will follow concrete 1-part commands: 60% accuracy, Moderate cues Patient will identify object in a field of 2: 60% accuracy, Moderate cues Patient responds to yes/no questions regarding personal/ environmental information with nods, gestures, eye blinks, or pointin% accuracy, Moderate cues Will demonstrate confrontation naming with: 60% accuracy, Moderate cues Will perform automatic speech tasks with: 60% accuracy, Moderate cues Will participate in ongoing assessment of swallow bedside: Progressing Will participate in repeat instrumental swallow evaluation when clinically indicated: Progressing Therapist: Betsy Howe MS, L/CCC-INTERNAL CONSULTANT [phone] Date: 01/12/2017 * John Chirinos MD - 01/11/2017 4:58 PM CDT Formatting of this note may be different from the original. 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 Phillip is a 66 y/o female who was found to have left frontal parenchymal hemorrhage s/p evacuation and EVD placement and subsequent removal. Rehabilitation: Rehab Dx: IPH Therapy: PT, OT, ST Daily Functional Update: Transfers Device Sit to Stand Transfer: Assistive Device: Hand Hold Assist (01/10/2017 4:00 PM) Transfer: Sit to Stand: Moderate assistance (01/10/2017 4:00 PM) Gait Device Assist Required Distance Gait: Assistive Device: Hand Hold Assist (01/10/2017 4:00 PM) Gait: Assist Level: Two person assist (01/10/2017 4:00 PM) Gait Distance: 30 feet (20) (01/10/2017 4:00 PM) Dressing Lower Body LE Dressing Assist: Total Assist (01/09/2017 8:00 AM) IPH -Admitted to the [facility] on 12/22/2016with alarge left frontal parenchymal hemorrhage -S/p Left frontal burrhole craniotomy for evacuation 12/25 and EVD placement -CTA negative for aneurysm or AVM; MRI did not show any obvious enhancing lesion or abnormal vascular flow voids -01/08 pt not following commands and regression in therapies -CT head 01/08: Interval decrease in left frontal parenchymal hematoma with surrounding low density edema and some expected evolution. Slight decrease in mild [id number] midline shift with improvement in local mass effect. 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 Bowel: continue oral laxatives to promote regular bowel movements Bladder: Pt requiring STC. Continue doxazosin Nutrition: NPO for now, continue TF's Mental Health: consult neuropsychology to provide support / counseling DVT Prophylaxis: Heparin John Chirinos MD Subjective Pt resting in bed. Somnolent this morning but arousable and responding to simple commands. present. Pt and denies complaints at time of visit. . Objective Vital Signs: Last Filed Vital Signs: 24 Hour Range BP: 123/44 (01/12 400) Temp: 36.7 C (98 F) (01/12 400) Pulse: 93 (01/12 400) Respirations: 18 PER MINUTE (01/12 400) SpO2: 98 % (01/12 400) O2 Delivery: None (Room Air) (01/12 400) BP: (123)/(44) Temp: [36.7 C (98 F)] Pulse: [93] Respirations: [18 PER MINUTE] SpO2: [98 %] O2 Delivery: None (Room Air) Intensity Pain Scale 0-10 (Pain 1): Asleep (01/11/17 0200) Vitals: 01/06/17 1619 Weight: 52.1 kg (114 lb 14.4 oz) Intake/Output Summary: (Last 24 hours) Intake/Output Summary (Last 24 hours) at 01/11/17 1658 Last data filed at 01/11/17 0745 Gross per 24 hour Intake 2870 ml Output 0 ml Net 2870 ml Stool Occurrence: 1 (pt helped ) BVI (Bladder Scan)(mL): 164 milliliters (01/11/17 0553) Oral Diet Order: NPO Last BM Date: 01/11/17 Lab: Results for orders placed or performed during the hospital encounter of (from the past 24 hour(s)) POC GLUCOSE Collection Time: 01/10/17 9:27 PM # # Low-High Glucose, POC 145 (H) 70 - 100 MG/DL POC GLUCOSE Collection Time: 01/11/17 6:48 AM # # Low-High Glucose, POC 152 (H) 70 - 100 MG/DL CBC Collection Time: 01/11/17 7:50 AM # # Low-High White Blood Cells 7.6 4.5 - 11.0 K/UL RBC 3.41 (L) 4.0 - 5.0 M/UL Hemoglobin 10.5 (L) 12.0 - 15.0 GM/DL Hematocrit 30.9 (L) 36 - 45 % MCV 90.7 80 - 100 FL MCH 30.7 26 - 34 PG MCHC 33.9 32.0 - 36.0 G/DL RDW 16.3 (H) 11 - 15 % Platelet Count 211 150 - 400 K/UL MPV 9.3 7 - 11 FL BASIC METABOLIC PANEL Collection Time: 01/11/17 7:50 AM # # Low-High Sodium 141 137 - 147 MMOL/L Potassium 4.2 3.5 - 5.1 MMOL/L Chloride 108 98 - 110 MMOL/L CO2 25 21 - 30 MMOL/L Anion Gap 8 3 - 12 Glucose 165 (H) 70 - 100 MG/DL Blood Urea Nitrogen 19 7 - 25 MG/DL Creatinine 0.77 0.4 - 1.00 MG/DL Calcium 9.2 8.5 - 10.6 MG/DL eGFR Non >60 >60 mL/min eGFR >60 >60 mL/min POC GLUCOSE Collection Time: 01/11/17 11:59 AM # # Low-High Glucose, POC 176 (H) 70 - 100 MG/DL Physical Exam VS: BP 123/44 (BP Source: Arm, Right) | Pulse 93 | Temp 36.7 C (98 F) | Ht 152.4 cm (60") | Wt 52.1 kg (114 lb 14.4 oz) | SpO2 98% | BMI 22.44 kg/m2 Gen: No Acute Distress HEENT: sclera anicteric, conjunctiva not injected Neck: Supple, no elevated JVP, full AROM Heart: Regular Rate & Rhythm, no m/g/r Lungs: Clear to auscultation bilaterally, no w/r/r Abdomen: Soft, non-tender, non-distended, +BS : No peter Neuro: Speech/ Cognitive: global aphasia, speech characterized by automatic responses Motor: mild right hemiparesis comparatively with at least anti-gravity strength in all limbs Therapy Notes & Labs Reviewed. John Chirinos MD Associated attestation - Michele Warren MD - 01/11/2017 11:25 PM CDT Formatting of this note may be different from the original. ATTESTATION I personally observed the resident performing the E/M, discussed case with resident, and concur with resident documentation of history, physical assessment and treatment plan unless otherwise noted. Staff name: Michele Warren MD Date: 01/11/2017 * John Chirinos MD - 01/10/2017 5:07 PM CDT Formatting of this note may be different from the original. 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 Phillip is a 66 y/o female who was found to have left frontal parenchymal hemorrhage s/p evacuation and EVD placement and subsequent removal. Rehabilitation: Rehab Dx: IPH Therapy: PT, OT, ST Daily Functional Update: Transfers Device Sit to Stand Transfer: Assistive Device: Hand Hold Assist (01/10/2017 4:00 PM) Transfer: Sit to Stand: Moderate assistance (01/10/2017 4:00 PM) Gait Device Assist Required Distance Gait: Assistive Device: Hand Hold Assist (01/10/2017 4:00 PM) Gait: Assist Level: Two person assist (01/10/2017 4:00 PM) Gait Distance: 30 feet (20) (01/10/2017 4:00 PM) Dressing Lower Body LE Dressing Assist: Total Assist (01/09/2017 8:00 AM) IPH -Admitted to the [facility] on 12/22/2016with alarge left frontal parenchymal hemorrhage -S/p Left frontal burrhole craniotomy for evacuation 12/25 and EVD placement -CTA negative for aneurysm or AVM; MRI did not show any obvious enhancing lesion or abnormal vascular flow voids -01/08 pt not following commands and regression in therapies -CT head 01/08: Interval decrease in left frontal parenchymal hematoma with surrounding low density edema and some expected evolution. Slight decrease in mild [id number] midline shift with improvement in local mass effect. 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 Bowel: continue oral laxatives to promote regular bowel movements Bladder: Pt requiring STC. Continue doxazosin Nutrition: NPO for now, continue TF's Mental Health: consult neuropsychology to provide support / counseling DVT Prophylaxis: Heparin John Chirinos MD Pager [phone] Subjective Pt resting in bed. Somnolent and pulling at PEG at time of exam. Pt denies complaints at time of visit. Due for therapies later this afternoon. Objective Vital Signs: Last Filed Vital Signs: 24 Hour Range BP: 99/48 (01/10 1557) Temp: 36.3 C (97.4 F) (01/10 1557) Pulse: 87 (01/10 1557) Respirations: 18 PER MINUTE (01/10 1557) SpO2: 100 % (01/10 1557) O2 Delivery: None (Room Air) (01/10 155) BP: (95-99)/(42-48) Temp: [36.3 C (97.4 F)-36.7 C (98 F)] Pulse: [87] Respirations: [18 PER MINUTE] SpO2: [98 %-100 %] O2 Delivery: None (Room Air) Vitals: 01/06/17 1619 Weight: 52.1 kg (114 lb 14.4 oz) Intake/Output Summary: (Last 24 hours) Intake/Output Summary (Last 24 hours) at 01/10/17 1707 Last data filed at 01/10/17 1226 Gross per 24 hour Intake 4120 ml Output 350 ml Net 3770 ml Stool Occurrence: 1 (pt helped ) BVI (Bladder Scan)(mL): 7 milliliters (01/10/17 1405) Oral Diet Order: NPO Last BM Date: 01/09/17 Straight Cath (mL): 350 (01/09/17 1720) Lab: Results for orders placed or performed during the hospital encounter of (from the past 24 hour(s)) POC GLUCOSE Collection Time: 01/09/17 5:08 PM # # Low-High Glucose, POC 134 (H) 70 - 100 MG/DL POC GLUCOSE Collection Time: 01/09/17 9:08 PM # # Low-High Glucose, POC 151 (H) 70 - 100 MG/DL POC GLUCOSE Collection Time: 01/10/17 3:23 AM # # Low-High Glucose, POC 130 (H) 70 - 100 MG/DL POC GLUCOSE Collection Time: 01/10/17 7:02 AM # # Low-High Glucose, POC 170 (H) 70 - 100 MG/DL CBC Collection Time: 01/10/17 8:04 AM # # Low-High White Blood Cells 8.4 4.5 - 11.0 K/UL RBC 3.43 (L) 4.0 - 5.0 M/UL Hemoglobin 10.5 (L) 12.0 - 15.0 GM/DL Hematocrit 31.0 (L) 36 - 45 % MCV 90.5 80 - 100 FL MCH 30.7 26 - 34 PG MCHC 34.0 32.0 - 36.0 G/DL RDW 15.4 (H) 11 - 15 % Platelet Count 224 150 - 400 K/UL MPV 9.0 7 - 11 FL BASIC METABOLIC PANEL Collection Time: 01/10/17 8:04 AM # # Low-High Sodium 142 137 - 147 MMOL/L Potassium 3.9 3.5 - 5.1 MMOL/L Chloride 108 98 - 110 MMOL/L CO2 27 21 - 30 MMOL/L Anion Gap 7 3 - 12 Glucose 152 (H) 70 - 100 MG/DL Blood Urea Nitrogen 20 7 - 25 MG/DL Creatinine 0.71 0.4 - 1.00 MG/DL Calcium 9.2 8.5 - 10.6 MG/DL eGFR Non >60 >60 mL/min eGFR >60 >60 mL/min POC GLUCOSE Collection Time: 01/10/17 12:20 PM # # Low-High Glucose, POC 186 (H) 70 - 100 MG/DL POC GLUCOSE Collection Time: 01/10/17 4:54 PM # # Low-High Glucose, POC 174 (H) 70 - 100 MG/DL Physical Exam VS: BP 99/48 (BP Source: Arm, Right) | Pulse 87 | Temp 36.3 C (97.4 F) | Ht 152.4 cm (60") | Wt 52.1 kg (114 lb 14.4 oz) | SpO2 100% | BMI 22.44 kg/m2 Gen: No Acute Distress HEENT: sclera anicteric, conjunctiva not injected Neck: Supple, no elevated JVP, full AROM Heart: Regular Rate & Rhythm, no m/g/r Lungs: Clear to auscultation bilaterally, no w/r/r Abdomen: Soft, non-tender, non-distended, +BS : No peter Neuro: Speech/ Cognitive: global aphasia, speech characterized by automatic responses Motor: mild right hemiparesis comparatively with at least anti-gravity strength in all limbs Therapy Notes & Labs Reviewed. John Chirinos MD Pager [phone] Associated attestation - Michele Warren MD - 01/10/2017 9:38 PM CDT Formatting of this note may be different from the original. ATTESTATION I personally observed the resident performing the E/M, discussed case with resident, and concur with resident documentation of history, physical assessment and treatment plan unless otherwise noted. Following simple commands. Staff name: Michele Warren MD Date: 01/10/2017 * Betsy Howe - 01/10/2017 9:59 AM CDT SPEECH-LANGUAGE PATHOLOGY REHAB SPEECH DAILY NOTE SUMMARY: Pt seen for one 60-minute therapy session targeting language, cognition , and dysphagia. Pt w/ significantly decreased attention/participation in therapy tasks. Pt closed eyes for all structured tasks. Maximal cues and encouragement provided. Please see below for additional details. RECOMMENDATIONS Continue NPO w/ use of PEG Medications through PEG Aggressive oral care utilizing suction throughout PLAN: Continue current therapy plan. FREQUENCY TODAY: 2x ACTIVITIES FOR THE DAY: Language: Pt did not participate in structured language activities. Intermittent fluent responses observed to INTERNAL CONSULTANT questions including "Look at that jacqueline." "Yeah, something like that." Cognition: Pt required maximal cues to sustain attention to simple tasks of looking at magazine and looking at family pictures. Pt participated for approximately 10 seconds, then closed her eyes w/ no responses to verbal questions. Dysphagia: Provided pt w/ oral care utilizing suction throughout. Pt attempting to chew on toothette. Provided pt w/ 3 trials of ice chips. Bolus withdraw, formation, mastication, and AP transfer functional. Delayed swallow initiation w/ decreased hyolaryngeal elevation. No overt s/s aspiration appreciated. Speech Correction Goals Will improve communication for basic wants and needs with: Moderate assist, Progressing Speech Short Term Goals Patient will follow concrete 1-part commands: 60% accuracy, Moderate cues Patient will identify object in a field of 2: 60% accuracy, Moderate cues Patient responds to yes/no questions regarding personal/ environmental information with nods, gestures, eye blinks, or pointin% accuracy, Moderate cues Will demonstrate confrontation naming with: 60% accuracy, Moderate cues Will perform automatic speech tasks with: 60% accuracy, Moderate cues Will participate in ongoing assessment of swallow bedside: Progressing Will participate in repeat instrumental swallow evaluation when clinically indicated: Progressing Therapist: Betsy Howe MS, L/CCC-INTERNAL CONSULTANT [id number] Date: 01/10/2017 * Debbi Lyle - 01/09/2017 5:02 PM CDT CLINICAL NUTRITION MALNUTRITION NOTE Malnutrition Context: ICD-10 code E43: Chronic illness/Severe malnutrition Weight loss: >10% x 6 months;Energy intake: 75% or less of estimated energy requirement for 1 month or more Note to Physician: Add this to the Problem list & address it in your progress notes. Note created by:Debbi Lyle RD, LD *[id number] Date:01/09/2017 * Debbi Lyle - 01/09/2017 4:50 PM CDT CLINICAL NUTRITION Clinical Nutrition Follow-Up Summary Nutrition Assessment of Patient: Malnutrition Assessment: Malnutrition present Malnutrition Context: ICD-10 code E43: Chronic illness/Severe malnutrition Oral Diet Order: NPO Intake (calories) Daily Average : 927 kilocalories (61% of minimum goal) Intake (protein) Daily Average : 42 grams (65% of minimum goal) Current EN Order: Isosource 1.5, 1 carton QID + 300 ml water bolus Q4H + 30 ml water flush pre/post bolus feed. 66 yo female w/ PMH including dementia, chronic back pain, TIA; transferred to [facility] 12/22 with large left frontal parenchymal hemorrhage on AC Plavix and ASA for hx TIA 3 mos ago. NPO on room air; to OR for drain placement 12/24. PEG placed . 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 Per EMR, wt has decreased since 12/22 acute admit from 123# to current wt of 114# on 01/06, representing a wt loss of 7% in less than a month (severe). Net I/O are not reflective of change with +5.7L since . Weight change may be related to inconsistent nutrition infusion or scale error; will continue to monitor. Isosource 1.5 EN feeds started per NGT 12/25. 3 day EN ave 12/29- met 55% min kcal goal and 58% min protein goal. Due to rescheduling of PEG and TF holds, EN avg decreased 01/01-01/04, meeting 46% of kcal and 49% of protein needs. Recent 3-day EN avg met 61% kcal/65% protein needs. Bolus feeds started 01/08. Pt with eyes open, but not communicating on visit today. No s/s of intolerance or GI distress. Last BM 01/08. No edema or pressure injuries noted. FSBS 126-329 x last 24 hrs, A1C 5.2; [facility] on board. Recommendation: Add 1 pack Prosource daily to current EN order. Provides 1560 kcal, 83g protein , and 760ml free water from EN. Intervention / Plan: Monitor EN rate/tolerance, wt, labs, skin, gi, fluids, meds. Nutrition Diagnosis: Nutrition Diagnosis: Altered GI function Etiology: swallowing difficulty Signs & Symptoms: NPO with EN Goals: EN tolerated and meeting >85% of nutritional needs Time Frame: Within 5 Days Status: Not met;Ongoing Debbi Lyle RD, LD *[id number] * Betsy Howe - 01/09/2017 4:14 PM CDT SPEECH-LANGUAGE PATHOLOGY REHAB SPEECH DAILY NOTE SUMMARY: Pt seen for two 30-minute therapy sessions targeting language, cognition, and dysphagia. Please see below for additional details. RECOMMENDATIONS Continue NPO w/ use of PEG Medications through PEG Aggressive oral care utilizing suction throughout PLAN: Continue current therapy plan. FREQUENCY TODAY: 2x ACTIVITIES FOR THE DAY: Language: 1-step commands: Pt unable to follow commands independently. Pt successful w/ a model in 1/4 instances and required a [id number] cues in additional trials. Egocentric yes/no: Pt 55% accurate, delayed responses Picture naming: Maximal cues to participate; no responses Occasional responses to INTERNAL CONSULTANT questions/comments observed. Speech emerging to be more fluent though verbalizations are limited. Cognition: Pt attended to task of looking at familiar family pictures w/ fair attention. Speech Care Center Manager Goals Will improve communication for basic wants and needs with: Moderate assist, Progressing Speech Short Term Goals Patient will follow concrete 1-part commands: 60% accuracy, Moderate cues Patient will identify object in a field of 2: 60% accuracy, Moderate cues Patient responds to yes/no questions regarding personal/ environmental information with nods, gestures, eye blinks, or pointin% accuracy, Moderate cues Will demonstrate confrontation naming with: 60% accuracy, Moderate cues Will perform automatic speech tasks with: 60% accuracy, Moderate cues Will participate in ongoing assessment of swallow bedside: Progressing Will participate in repeat instrumental swallow evaluation when clinically indicated: Progressing Therapist: Betsy Howe MS, L/CCC-INTERNAL CONSULTANT [phone] Date: 01/09/2017 * Jackie Maradiaga - 01/09/2017 3:37 PM CDT Console Operator visited patient at bedside following several therapy sessions today. She requested that Console Operator return at a later time. Console Operator will re-visit patient at a later date. Rev. Jackie Maradiaga Extension [phone] * Flash Garcia MD - 01/09/2017 11:09 AM CDT Formatting of this note may be different from the original. ATTESTATION I personally performed the de anda portions of the E/M visit, discussed case with resident and concur with resident documentation of history, physical exam, assessment, and treatment plan unless otherwise noted. Head CT 01/08 reviewed: no acute changes, interval improvement Neuro exam stable. Aphasia remains severe. Na improved with adjustment in free water flushes. Staff name: Flash Garcia MD Date: 01/09/2017 Physical Medicine & Rehabilitation Progress Note Today's Date: 01/09/2017 Admission Date: 01/06/2017 LOS: 3 days Principal Problem: Nontraumatic cortical hemorrhage of left cerebral hemisphere (HCC) Active Problems: Dysphagia Intraparenchymal hematoma of brain (HCC) Aphasia 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) Impaired mobility and activities of daily living Normocytic anemia Hypernatremia Assessment/Plan: Mrs. Phillip is a 66 y/o female who was found to have left frontal parenchymal hemorrhage s/p evacuation and EVD placement and subsequent removal. Rehabilitation: Rehab Dx: IP Therapy: PT, OT, ST Daily Functional Update: Transfers Device Sit to Stand Transfer: Assistive Device: Hand Hold Assist;Roller Walker (01/08/2017 2:30 PM) Transfer: Sit to Stand: Moderate assistance;With two person (01/08/2017 2:30 PM ) Gait Device Assist Required Distance Gait: Assistive Device: Hand Hold Assist;Roller Walker (01/08/2017 2:30 PM) Gait: Assist Level: Two person assist (01/08/2017 2:30 PM) Gait Distance: 60 feet (x2) (01/08/2017 2:30 PM) Dressing Lower Body LE Dressing Assist: Total Assist (01/08/2017 8:45 AM) IPH -Admitted to the [facility] on 12/22/2016with alarge left frontal parenchymal hemorrhage -S/p Left frontal burrhole craniotomy for evacuation 12/25 and EVD placement -CTA negative for aneurysm or AVM; MRI did not show any obvious enhancing lesion or abnormal vascular flow voids -01/08 pt not following commands and regression in therapies -CT head 01/08: Interval decrease in left frontal parenchymal hematoma with surrounding low density edema and some expected evolution. Slight decrease in mild [id number] midline shift with improvement in local mass effect. 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 Bowel: continue oral laxatives to promote regular bowel movements Bladder: Pt requiring STC. Continue doxazosin Nutrition: NPO for now, continue TF's Mental Health: consult neuropsychology to provide support / counseling DVT Prophylaxis: Heparin Paul Smith DO Pager [phone] head yesterday evening showed regression in prior bleeds. Pt more interactive when seen this am, sitting up in chair looking at family photos. Pt had automated responses improved from previous exam. Pt had no complaints when seen. Objective Vital Signs: Last Filed Vital Signs: 24 Hour Range BP: 108/54 (01/09 603) Temp: 36.3 C (97.4 F) (01/09 603) Pulse: 81 (01/09 603) Respirations: 16 PER MINUTE (01/09 603) SpO2: 94 % (01/09 603) O2 Delivery: None (Room Air) (01/08 1600) BP: (91-108)/(46-60) Temp: [36.3 C (97.4 F)-36.4 C (97.5 F)] Pulse: [81-109] Respirations: [16 PER MINUTE-18 PER MINUTE] SpO2: [94 %-100 %] O2 Delivery: None (Room Air) Intensity Pain Scale 0-10 (Pain 1): 0 (denies pain by shaking head no) ( 1430) Vitals: 01/06/17 1619 Weight: 52.1 kg (114 lb 14.4 oz) Intake/Output Summary: (Last 24 hours) Intake/Output Summary (Last 24 hours) at 01/09/17 1110 Last data filed at 01/09/17 0600 Gross per 24 hour Intake 2447 ml Output 400 ml Net 2047 ml BVI (Bladder Scan)(mL): 211 milliliters (01/09/17 0635) Last BM Date: 01/08/17 Straight Cath (mL): 400 (01/08/17 1730) Lab: Results for orders placed or performed during the hospital encounter of (from the past 24 hour(s)) POC GLUCOSE Collection Time: 01/08/17 11:49 AM # # Low-High Glucose, POC 329 (H) 70 - 100 MG/DL POC GLUCOSE Collection Time: 01/08/17 11:50 AM # # Low-High Glucose, POC 334 (H) 70 - 100 MG/DL POC GLUCOSE Collection Time: 01/08/17 3:04 PM # # Low-High Glucose, POC 128 (H) 70 - 100 MG/DL POC GLUCOSE Collection Time: 01/08/17 4:55 PM # # Low-High Glucose, POC 132 (H) 70 - 100 MG/DL POC GLUCOSE Collection Time: 01/08/17 9:01 PM # # Low-High Glucose, POC 226 (H) 70 - 100 MG/DL POC GLUCOSE Collection Time: 01/09/17 4:16 AM # # Low-High Glucose, POC 126 (H) 70 - 100 MG/DL CBC Collection Time: 01/09/17 7:26 AM # # Low-High White Blood Cells 8.1 4.5 - 11.0 K/UL RBC 3.50 (L) 4.0 - 5.0 M/UL Hemoglobin 10.5 (L) 12.0 - 15.0 GM/DL Hematocrit 32.1 (L) 36 - 45 % MCV 91.9 80 - 100 FL MCH 30.1 26 - 34 PG MCHC 32.8 32.0 - 36.0 G/DL RDW 15.4 (H) 11 - 15 % Platelet Count 284 150 - 400 K/UL MPV 8.4 7 - 11 FL BASIC METABOLIC PANEL Collection Time: 01/09/17 7:26 AM # # Low-High Sodium 146 137 - 147 MMOL/L Potassium 4.0 3.5 - 5.1 MMOL/L Chloride 111 (H) 98 - 110 MMOL/L CO2 28 21 - 30 MMOL/L Anion Gap 7 3 - 12 Glucose 127 (H) 70 - 100 MG/DL Blood Urea Nitrogen 24 7 - 25 MG/DL Creatinine 0.64 0.4 - 1.00 MG/DL Calcium 9.2 8.5 - 10.6 MG/DL eGFR Non >60 >60 mL/min eGFR >60 >60 mL/min POC GLUCOSE Collection Time: 01/09/17 7:26 AM # # Low-High Glucose, POC 123 (H) 70 - 100 MG/DL Physical Exam VS: BP 108/54 (BP Source: Arm, Left) | Pulse 81 | Temp 36.3 C (97.4 F) | Ht 152.4 cm (60") | Wt 52.1 kg (114 lb 14.4 oz) | SpO2 94% | BMI 22.44 kg/m2 Gen: No Acute Distress HEENT: sclera anicteric, conjunctiva not injected Neck: Supple, no elevated JVP, full AROM Heart: Regular Rate & Rhythm, no m/g/r Lungs: Clear to auscultation bilaterally, no w/r/r Abdomen: Soft, non-tender, non-distended, +BS : No peter Neuro: Speech/ Cognitive: global aphasia, speech characterized by automatic responses Motor: mild right hemiparesis comparatively with at least anti-gravity strength in all limbs; no pronator drift Therapy Notes & Labs Reviewed. Paul Smith DO Pager [phone] * Marylin Portillo RN - 01/08/2017 6:20 PM CDT Pt returned to unit via stretcher and transport. Pt stable. This RN will continue to monitor. * Marylin Portillo RN - 01/08/2017 5:30 PM CDT Pt left unit via transport and stretcher to CT. Pt stable. * Betsy Howe - 01/08/2017 4:36 PM CDT SPEECH-LANGUAGE PATHOLOGY REHAB SPEECH DAILY NOTE SUMMARY: Pt seen for two 30-minute therapy sessions targeting language, cognition, and dysphagia. Pt's present for first therapy session. Please see below for additional details. RECOMMENDATIONS Continue NPO w/ use of PEG Medications through PEG Aggressive oral care utilizing suction throughout PLAN: Continue current therapy plan. FREQUENCY TODAY: 2x ACTIVITIES FOR THE DAY: Language: 1-step commands: 0/5 accurate Pt w/ occasional appropriate responses to INTERNAL CONSULTANT conversation when looking at family pictures (i.e., "Tell me 'bout it." and "Isn't that something?") Cognition: Pt attended to task of looking at familiar family pictures w/ fair attention. Dysphagia: Pt provided w/ oral care utilizing suction throughout. Thick, dried secretions visualized which coat pt's hard palate. Attempted to remove utilizing toothette but anticipate secretions will require several cleanings to remove. Speech Correction Goals Will improve communication for basic wants and needs with: Moderate assist, Progressing Speech Short Term Goals Patient will follow concrete 1-part commands: 60% accuracy, Moderate cues Patient will identify object in a field of 2: 60% accuracy, Moderate cues Patient responds to yes/no questions regarding personal/ environmental information with nods, gestures, eye blinks, or pointin% accuracy, Moderate cues Will demonstrate confrontation naming with: 60% accuracy, Moderate cues Will perform automatic speech tasks with: 60% accuracy, Moderate cues Will participate in ongoing assessment of swallow bedside: Progressing Will participate in repeat instrumental swallow evaluation when clinically indicated: Progressing Therapist: Betsy Howe MS, L/CCC-INTERNAL CONSULTANT [id number] Date: 01/08/2017 * Flash Garcia MD - 01/08/2017 2:14 PM CDT Formatting of this note may be different from the original. ATTESTATION I personally performed the de anda portions of the E/M visit, discussed case with resident and concur with resident documentation of history, physical exam, assessment, and treatment plan unless otherwise noted. I have made adjustments and additions directly to the text below when indicated. I have the following additional comments: -Informed by therapy and resident this afternoon of what is believed to be a functional decline. thought she was doing better when I saw her this morning. DDx for functional decline includes IPH, cerebral edema, hydrocephalus , UTI, sodium derangement. Will get STAT Head CT. If Head CT negative consider need for Brain MRI. Repeat BMP this evening. -Changing antibiotics for UTI based on sensitivities Staff name: Flash Garcia MD Date: 01/08/2017 Physical Medicine & Rehabilitation Progress Note Today's Date: 01/08/2017 Admission Date: 01/06/2017 LOS: 2 days Principal Problem: Nontraumatic cortical hemorrhage of left cerebral hemisphere (HCC) Active Problems: Dysphagia Intraparenchymal hematoma of brain (HCC) Aphasia 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) Impaired mobility and activities of daily living Normocytic anemia Hypernatremia Assessment/Plan: Mrs. Phillip is a 66 y/o female who was found to have left frontal parenchymal hemorrhage s/p evacuation and EVD placement and subsequent removal. Rehabilitation: Rehab Dx: IPH Therapy: PT, OT, ST Daily Functional Update: Transfers Device Sit to Stand Transfer: Assistive Device: Hand Hold Assist;Roller Walker (01/08/2017 2:30 PM) Transfer: Sit to Stand: Moderate assistance;With two person (01/08/2017 2:30 PM ) Gait Device Assist Required Distance Gait: Assistive Device: Hand Hold Assist;Roller Walker (01/08/2017 2:30 PM) Gait: Assist Level: Two person assist (01/08/2017 2:30 PM) Gait Distance: 60 feet (x2) (01/08/2017 2:30 PM) Dressing Lower Body LE Dressing Assist: Total Assist (01/08/2017 8:45 AM) IPH -Admitted to the [facility] on 12/22/2016with alarge left frontal parenchymal hemorrhage -S/p Left frontal burrhole craniotomy for evacuation 12/25 and EVD placement -CTA negative for aneurysm or AVM; MRI did not show any obvious enhancing lesion or abnormal vascular flow voids -01/08 pt not following commands and regression in therapies >Continue keppra 500mg BID >Stat CT head to r/o progression of hemorrhage Dysphagia -Currently NPO -s/p PEG placement 01/02 -Transition to bolus TF's UTI -Urine Cx growing Ecoli Faecium >D/c Vantin start levaquin Hyperglycemia -Recent A1c 5.2 -[facility] Anemia -Stable, continue to monitor Hypernatremia -Na 149 01/08 -Increase Free water flush's to 300ml SCOTT- resolved >Continue to monitor 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 Bowel: Last BM recoreded 01/04. Implement bowel protocol including oral laxatives and PRN supp Bladder: Pt requiring STC. Continue doxazosin Nutrition: NPO for now, continue TF's Mental Health: consult neuropsychology to provide support / counseling DVT Prophylaxis: Heparin Paul Smith DO Pager [phone] Subjective No acute events overnight. Pt resting comfortably in bed when seen early this afternoon. Pt had no complaints when seen. Pt responds to simple commands after several cue's, unchanged from previous exam. ROS unable to be obtained in full due to aphasia. Objective Vital Signs: Last Filed Vital Signs: 24 Hour Range BP: 103/55 (01/08 1225) Temp: 36.4 C (97.5 F) (01/08 1225) Pulse: 109 (01/08 1225) Respirations: 18 PER MINUTE (01/08 1225) SpO2: 100 % (01/08 1225) O2 Delivery: None (Room Air) (01/08 122) BP: (99-114)/(46-69) Temp: [36.1 C (97 F)-36.8 C (98.3 F)] Pulse: [88-118] Respirations: [18 PER MINUTE] SpO2: [95 %-100 %] O2 Delivery: None (Room Air) Vitals: 01/06/17 1619 Weight: 52.1 kg (114 lb 14.4 oz) Intake/Output Summary: (Last 24 hours) Intake/Output Summary (Last 24 hours) at 01/08/17 1414 Last data filed at 01/08/17 1200 Gross per 24 hour Intake 2450 ml Output 700 ml Net 1750 ml BVI (Bladder Scan)(mL): 123 milliliters (pre void) (01/08/17 1138) Last BM Date: 01/08/17 Straight Cath (mL): 360 (01/08/17 0830) Lab: Results for orders placed or performed during the hospital encounter of (from the past 24 hour(s)) POC GLUCOSE Collection Time: 01/07/17 6:02 PM # # Low-High Glucose, POC 133 (H) 70 - 100 MG/DL POC GLUCOSE Collection Time: 01/07/17 8:53 PM # # Low-High Glucose, POC 269 (H) 70 - 100 MG/DL POC GLUCOSE Collection Time: 01/08/17 3:40 AM # # Low-High Glucose, POC 145 (H) 70 - 100 MG/DL CBC Collection Time: 01/08/17 7:45 AM # # Low-High White Blood Cells 8.8 4.5 - 11.0 K/UL RBC 3.42 (L) 4.0 - 5.0 M/UL Hemoglobin 10.5 (L) 12.0 - 15.0 GM/DL Hematocrit 31.0 (L) 36 - 45 % MCV 90.6 80 - 100 FL MCH 30.6 26 - 34 PG MCHC 33.8 32.0 - 36.0 G/DL RDW 15.8 (H) 11 - 15 % Platelet Count 299 150 - 400 K/UL MPV 8.8 7 - 11 FL BASIC METABOLIC PANEL Collection Time: 01/08/17 7:45 AM # # Low-High Sodium 149 (H) 137 - 147 MMOL/L Potassium 4.0 3.5 - 5.1 MMOL/L Chloride 113 (H) 98 - 110 MMOL/L CO2 29 21 - 30 MMOL/L Anion Gap 7 3 - 12 Glucose 140 (H) 70 - 100 MG/DL Blood Urea Nitrogen 30 (H) 7 - 25 MG/DL Creatinine 0.60 0.4 - 1.00 MG/DL Calcium 9.2 8.5 - 10.6 MG/DL eGFR Non >60 >60 mL/min eGFR >60 >60 mL/min POC GLUCOSE Collection Time: 01/08/17 7:51 AM # # Low-High Glucose, POC 131 (H) 70 - 100 MG/DL POC GLUCOSE Collection Time: 01/08/17 11:49 AM # # Low-High Glucose, POC 329 (H) 70 - 100 MG/DL POC GLUCOSE Collection Time: 01/08/17 11:50 AM # # Low-High Glucose, POC 334 (H) 70 - 100 MG/DL Physical Exam VS: BP 103/55 (BP Source: Arm, Left) | Pulse 109 | Temp 36.4 C (97.5 F) | Ht 152.4 cm (60") | Wt 52.1 kg (114 lb 14.4 oz) | SpO2 100% | BMI 22.44 kg/m2 Gen: No Acute Distress HEENT: sclera anicteric, conjunctiva not injected Neck: Supple, no elevated JVP, full AROM Heart: Regular Rate & Rhythm, no m/g/r Lungs: Clear to auscultation bilaterally, no w/r/r Abdomen: Soft, non-tender, non-distended, +BS : No peter Neuro: Speech/ Cognitive: aphasia with variable fluency, verbal comprehension poor Motor: right hemiparesis with at least anti-gravity strength; no pronator drift Therapy Notes & Labs Reviewed. Paul Smith DO Pager [phone] * Kumar Fong, VANESSA - 01/08/2017 1:00 PM CDT Given PRN dulcolax suppository & MOM earlier, resulting extra LG soft pasty incontinent BM on brief. Nurse found patient was laying on her right side with soiled brief in bed with eyes closed. * Betsy Howe - 01/07/2017 4:30 PM CDT SPEECH-LANGUAGE PATHOLOGY CLINICAL SWALLOW ASSESSMENT EVALUATION SUMMARY Summary: Pt seen for clinical swallow evaluation. Severe oropharyngeal dyspahagia characterized by weakness and disorganization secondary to recent CVA. Limited PO trials provided given decreased alertness during evaluation. No swallow was observed during this evaluation. Anticipate prolonged dysphagia recovery. RECOMMENDATIONS Continue NPO w/ use of PEG Medications through PEG Aggressive oral care utilizing suction throughout Oral Stage Summary*: One ice chip provided. Bolus withdraw and mastication functional. Did not observed bolus formation or AP transfer. Pharyngeal Stage Summary*: No swallow initiation was observed therefore hyolaryngeal elevation could not be assessed. No overt s/s aspriation appreciated w/ one ice chip trial however anticipate spillover into the pharynx prior to the swallow. Prognosis: Fair NOMS Dysphagia Ratin-Severe Dysphagia -Not able to swallow anything safely by mouth. All nutrition/hydration received through non-oral means (e.g., nasogastric tube, PEG). Results Reported to Physician: Yes (EMR) Subjective* Pain: Patient demonstrates no signs of pain Trach Presence: No Feeding Tube Present During Eval: (PEG) Nutrition* Nutrition Prior To Hospitalization: Oral, Regular, Thin Liquids Current Form Of Nutrition: NPO, PEG ORAL MECH EXAM Oral Mech WFL*: No Oral Mech Exam Summary*: Oral motor exam limited given language deficits/ apraxia impacting ability to fllow commands. Pt able to smile when provided model. Labial ROM and strength decreased on right. No volitional lingual movements observed. Dentition is natural though pt is missing some teeth. Thick , dried secretions present throughout oral cavity. Attempted to remove dried secretions utilizing suction toothette however anticipate pt will require several oral cleanings to clear dried secretions. Vocal quality was a whisper. Gag reflex is reduced. SPEECH-LANGUAGE ASSESSMENT EVALUATION SUMMARY Pt presents w/ severe deficits in receptive and expressive language skills at this time indicating likely global aphasia. Also anticipate factor of apraxia present. Pt does not have yes/no reliability at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 cognitive status. 9. Hyperglycemia: Patient blood glucose has ranged from 135-207 over the past 24 hours. As patient is not currently on steroids, nor does she have a history of diabetes, a Hgb A1C was checked on 12/23/2016 with normal results of 5.2%. Patient currently has Novolog sliding scale insulin ordered for management. Will continue to monitor and adjust medication for optimal blood glucose. 10. Acute Kidney Injury: Patient's most recent BUN resulted on 01/07/2017: Blood Urea Nitrogen 32 MG/DL* (Ref range: 7 - 25 MG/DL) and Creatinine resulted on : Creatinine 0.69 MG/DL (Ref range: 0.4 - 1.00 MG/DL). Will continue to monitor and manage, as this may affect patient's ability to tolerate therapies. 11. Urinary Tract Infection - Final cultures are pending; however the patient was started on Rocephin as of 01/05/2017 with the intention of a 5 day course, but was changed to Vantin with a start date of this evening. Will continue to monitor and manage accordingly.. 12. Risk for Thrombosis: Patient has Heparin SQ injections, sequential compression devices ordered. Patient will be encouraged to ambulate frequently with the assistance of health care provider. Prior Level of Function Self-Care/ADLs: Independent with activities of daily living. Mobility: Independent for gait at community distances without the use of an assistive device. Work/Personal Responsibilities/Hobbies: Patient worked for the [employer]. Home Environment: Home Situation: Lives with Family (12/30/2016 1:00 PM) Patient Owned Equipment: Roller Walker (12/30/2016 1:00 PM) Type of Home: House (12/30/2016 1:00 PM) Entry Stairs: 3-5 Stairs (12/30/2016 1:00 PM) In-Home Stairs: No Stairs (12/30/2016 1:00 PM) Bathroom Equipment: Grab Bars in Shower (12/23/2016 3:00 PM) Support System: Patient lives with her (Silvestre) who is retired and available for consistent support and supervision. Patient's daughter (Soledad) in an RN and resides 45 minutes away. Patientt's [id number] and [id number] reside in the same town and have offered to provide intermittent assistance Current Level of Function Formal acute rehabilitation therapy evaluations are pending at this time. Per rehab nursing, the patient required assist to transfer into bed upon arrival to the rehabilitation unit. Upon my exam, the patient participated well in a limited strength exam due to her difficulty with following verbal commands. She was noted to have right sided weakness compared to the left. Rehabilitation Plan Patient will receive Physical therapy, Occupational therapy and Speech therapy each 60 minutes a day for total of 3 hours per day, 5 days a week for the duration of the rehabilitation stay within an interdisciplinary rehabilitation program with case picker/social welfare administrator, production cost estimator, neuropsychologist, rehab nursing and PM&R oversight. Rehabilitation Prognosis: Fair to Good; while the patient has some history of ~ mild dementia, suspect she would benefit from continued PT, OT, and INTERNAL CONSULTANT to progress toward discharge home with family support Medical Prognosis: Good; anticipate the patient will continue to have clinical stability for discharge home when functionally improved Tolerance for three hours of therapy a day: Fair Patient has participated well with therapies which started on 12/23/2016 in the acute care setting and is anticipated to tolerate 3 hours of therapy per day, as required. Goals/Barriers/Facilitators Family / Patient Goals: return home with family assistance Mobility Goals: Supervision to Modified Independent Level of Care. Activities of Daily Living (ADLs) Goals: Stanby/Supervision to Modified Independent Level of Care. Cognition / Communication Goals: Speech therapy will evaluate and treat cognition and communication deficits and assess for safe swallow Barriers & Interventions: Caregiver Apprehension: Arrange caregiver support and discuss barriers and patient progress with caregivers when appropriate. Equipment Availability: Adaptive equipment, determine resources availability, equipment modifications, bariatric equipment. High Ord of Care: Initiate interdisciplinary rehabilitation to improve functional independence and reduce burden of care. Home Accessibility: Work with family to obtain home measurements of doorways, bathroom access, and stair set-up to plan for appropriate adaptive equipment and home modifications as necessary. Medication Education: Pharmacist and nursing staff to provide education to patient and family regarding medication side effects, special precautions, and safe administration. Wound Care Education: Nursing staff will provide education to the patient and family regarding proper wound care and monitoring for signs and symptoms of infection. Dysphagia Education: Speech Language Pathology and Nursing staff to provide patient/family with education regarding signs and symptoms of aspiration and proper care of the PEG tube (wound care, medication and tube administration). Facilitators: good family / social support, improving strength / endurance and improving medical condition Discharge Planning Expected Length of Stay 14-21 day(s) Expected Discharge Disposition Home Expected Discharge Needs: Patient would benefit from ongoing speech language pathology, physical and occupational therapy at an outpatient level of care. Patient owned a Roller Walker and Single Point Cane; however she would likely benefit from a shower chair, grab bars, and hand-held shower head for safety while completing bathing tasks. Patient will likely be a household ambulater, but may benefit from a wheelchair for community distances. The patient should reach their current goals by projected discharge date. Additional therapeutic disciplines may be included during this stay if indicated during interdisciplinary communication and will be noted in the daily progress notes when relevant. Social Work will address discharge planning needs. The patient will require physician supervision due to the medically complex problems described above. The patient was seen within 24 hours of admission to the inpatient rehabilitation unit. The patient was seen on 01/07/2017 at 0745 AM. Rehabilitation Medicine Attending Physician Attestation: I personally performed de anda portions of the history and exam. I discussed the case with the resident and concur with the resident's documentation of history, physical assessment and treatment plan unless otherwise noted. Flash Garcia MD Physical Medicine & Rehabilitation History & Physical Note Date of Service: 01/06/2017 Roxy Phillip is a 66 y.o. female. 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 female admitted to [facility] on (Not on file) with the following issues: IPH Impairments: aphasia, cognitive impairments, communication deficits, dysphagia and hemiplegia Activity Limitations: bathing, dressing - lower, toileting, transfers, ambulation, stairs, comprehension, expression, social interaction, problem solving and memory Participation Restrictions: unable to return home safely Rehabilitation Plan Patient will be admitted to inpatient rehabilitation for comprehensive therapies to include Physical therapy, Occupational therapy and Speech therapy Rehabilitation Prognosis: Fair to Good; while the patient has some history of ~ mild dementia, suspect she would benefit from continued PT, OT, and INTERNAL CONSULTANT to progress toward discharge home with family support Medical Prognosis: Good; anticipate the patient will continue to have clinical stability for discharge home when functionally improved Tolerance for three hours of therapy a day: FairPatient has participated well with therapies which started on 12/23/2016in the acute care setting and is anticipated to tolerate 3 hours of therapy per day, as required Goals/Barriers/Facilitators Family / Patient Goals: return home with family assistance Mobility Goals: Supervision to Modified Independent Level of Care. Activities of Daily Living (ADLs) Goals: Stanby/Supervision to Modified Independent Level of Care. Cognition / Communication Goals: Speech therapy will evaluate and treat cognition and communication deficits and assess for safe swallow Barriers &Interventions: Caregiver Apprehension: Arrange caregiver support and discuss barriers and patient progress with caregivers when appropriate. Equipment Availability: Adaptive equipment, determine resources availability, equipment modifications, bariatric equipment. High Ord of Care: Initiate interdisciplinary rehabilitation to improve functional independence and reduce burden of care. Home Accessibility: Work with family to obtain home measurements of doorways, bathroom access, and stair set-up to plan for appropriate adaptive equipment and home modifications as necessary. MedicationEducation: Pharmacist and nursing staff to provide education to patient and family regarding medication side effects, special precautions, and safe administration. Wound Care Education: Nursing staff will provide education to the patient and family regarding proper wound care and monitoring for signs and symptoms of infection. Dysphagia Education: Speech Language Pathology and Nursing staff to provide patient/family with education regarding signs and symptoms of aspiration and proper care of the PEG tube (wound care, medication and tube administration). Facilitators: good family / social support, improving strength / endurance and improving medical condition Current Medical Problems/Risks of Medical Complications/Management Hospital problems and plan: IPH -Admitted to the [facility] on 12/22/2016 with a large left frontal parenchymal hemorrhage -S/p Left frontal burrhole craniotomy for evacuation 12/25 and EVD placement -CTA negative for aneurysm or AVM; MRI did not show any obvious enhancing lesion or abnormal vascular flow voids >Continue keppra 500mg BID for seizure prophyalxis Dysphagia -Currently NPO -s/p PEG placement 01/02 -Start TF's, likely transition to bolus UTI -Currently on Vantin >Continue Vantin and f/u urine cx Hyperglycemia -Patient blood glucose has ranged from 163-226 over the past 24 hours -Recent A1c 5.2 -[facility] Anemia -Stable, continue to monitor Hypernatremia -Na 149 on admission -Continue to monitor and adjust free water flushes as needed SCOTT- resolved >Continue to monitor 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 Bowel: Last BM recoreded 01/04. Implement bowel protocol Bladder: BVIs x3 until <125ml and ISC for >300ml, pt requiring intermittent STC. Continue doxazosin Nutrition: NPO for now, continue TF's Mental Health: consult neuropsychology to provide support / counseling DVT Prophylaxis: Heparin} History of Present Illness Hospital Course: Roxy Ospina a 66 y.o.female with prior medical history of dementia, chronic back pain, osteoporosis, arthritis and TIA who [facility] with large left frontal parenchymal hemorrhage found on head CT earlier that day. She initially presented to the outsidewith word finding difficulty, right facial droop, difficulty swallowing, and right sided weakness. Patient was admitted to the neuro-intensive care unit For close monitoring, started on Keppra for seizure prophylaxis and anticoagulation was held. On 12/25/2016 she underwent left frontal kirit hole crani, hemorrhage evacuation, and EVD placement. Patient's post-operative course was complicated by anemia, SCOTT, hyperglycemia, and dysphagia of which required PEG placement as of 01/02/2017. When seen at therapies pt could follow simple commands but was unable to obtain a full ROS. Patient has been working with physical and occupational therapy since 12/23/2016 and is expected to discharge home at a supervision to modified independent level. She has also been working with speech language pathology for cognition as well as dysphagia management, of which she remains NPO. Patient is anticipated to require consistent supervision upon discharge to home. Past Medical History Past Medical History: Diagnosis Date Arthritis Chronic back pain Dementia Osteoporosis TIA (transient ischemic attack) Past Surgical History Past Surgical History: Procedure Laterality Date HX TONSILLECTOMY HYSTERECTOMY ORTHOPEDIC SURGERY DE CRANIECTOMY HMTMA SUPRATENTORIAL INTRACEREBRAL Left 12/24/2016 CRANIOTOMY EVACUATION HEMATOMA supine microscope, brainlab, tube system performed by Antwan Guadarrama MD at [facility] DE INSERT GASTROSTOMY TUBE PERCUTANEOUS N/A 01/02/2017 INSERTION GASTROSTOMY TUBE PERCUTANEOUS performed by Jong Hankins MD at [facility] Family\\Social History Social History Social History Marital status: Spouse name: N/A Number of children: N/A Years of education: N/A Social History Main Topics Smoking status: Never Smoker Smokeless tobacco: Never Used Alcohol use No Drug use: No Sexual activity: Not on file Other Topics Concern Not on file Social History Narrative Family History: reports a family history of cancer Allergies: Allergies Allergen Reactions Penicillins UNKNOWN Tomato SEE COMMENTS Throat swelling Celebrex [Celecoxib] HIVES Artichoke VOMITING Prior Level of Function Self-Care/ADLs: Independent with activities of daily living. Mobility: Independent for gait at community distances without the use of an assistive device. Work/Personal Responsibilities/Hobbies: Patient worked for the [employer]. Home Environment: Home Situation: Lives with Family (12/30/2016 1:00 PM) Patient Owned Equipment: Roller Walker (12/30/2016 1:00 PM) Type of Home: House (12/30/2016 1:00 PM) Entry Stairs: 3-5 Stairs (12/30/2016 1:00 PM) In-Home Stairs: No Stairs (12/30/2016 1:00 PM) Bathroom Equipment: Grab Bars in Shower (12/23/2016 3:00 PM) Support System: Patient lives with cornelio (Silvestre) whois retired and available for consistent support and supervision. Patient's daughter (Soledad)in an RN and resides 45 minutes away. Patientt's [id number] [id number] reside in the same town and have offered to provide intermittent assistance Current Level of Function Physical Therapy: (01/06/2017) Bed Mobility/Transfers Bed Mobility: Rolling: Moderate Assist Bed Mobility: Supine to Sit: Moderate Assist;Assist with B LE;Assist with Trunk Bed Mobility: Sit to Supine: Minimal Assist;Assist with B LE Transfer Type: Sit to Stand Transfer: Assistance Level: To/From;Bed;Minimal Assist Transfer: Assistive Device: Hand Hold Assist Transfers: Type Of Assistance: Verbal Cues;For Strength Deficit End Of Activity Status: Up in Chair;Nursing Notified;Instructed Patient to Request Assist with Mobility;Instructed Patient to Use Call Light Balance Sitting Balance: Static Sitting Balance;Standby Assist;No UE Support;Minimal Assist Standing Balance: Static Standing Balance;Minimal Assist;1 UE support Gait Gait Distance: 250 feet (3 trails: 120ft, 250ft, 110ft) Gait: Assistance Level: Minimal Assist Gait: Assistive Device: Hand Hold Assist Gait: Descriptors: Pace: Normal;Swing-Through Gait;Normal step length;Decreased foot clearance RLE;Decreased heel strike RLE (narrow base of support ) Comments: Patient was able to weight shift for ambulation on her own. She would have swing through gait with a narrow base of support. Patient needed minimal assistance to help with trunk control for ambulation. She required one hand hold assist. The patient demonstrated increased endurance by walking on three occasions. When she was fatigued she would need a sit down rest break <3 minutes. First trial we walked 120ft, Second trial we walked 250ft, and third trial we walked 110ft. Occupational Therapy:(01/06/2017) ADL's Grooming Assist: Moderate Assist Grooming Deficits: Wash/Dry Hands;Wash/Dry Face;Teeth Care LE Dressing Assist: Moderate Assist LE Dressing Deficits: Don/Doff R Sock;Don/Doff L Sock Comment: Pt maximum assist for supine to sit edge of bed. Able to hold static sitting balance with standby assist for a minute or so at a time. Brushed teeth/ swabbed mouth requiring much assist due to amount of dried secretions and need for suction. Pt willing and able to use regular toothbrush but not willing to use suction swab, therefore OT completed the task. Pt initially not using RUE for bed mobility, however upon OT handing pt the washcloth into her L hand, pt took it in her right hand, used LUE to assist RUE to wash face without cueing from therapist. Pt was able to doff socks at edge of bed with minimal assist for safety/steadying. Initially trying to cross legs in lap, then ultimately using feet to kick socks off, bending over to pick socks up off floor. Pt required assist to start socks over toes due to apraxia and easily distracted, turning sock inside out, grasping at other fabric on bed. Once socks over her toes, pt able to crop puller heel with minimal assist for steadying/balance. Fatigued at end of 39 minute session, frequently attempting to lie back down. Minimal assist for sit to supine, assist X2 to scoot up in bed. Mitt restraints replaced and bed alarm reset end of session. Cognition Cognition Comment: Expressive aphasia, though did say a few words this day. Apraxic, easily distracted. Speech Therapy:(01/05/2017) Videoswallow Summary*: Videoswallow completed. Severe oropharyngeal dysphagia persistsdue to large left frontal intraparenchymal hemmorhage. Dysphagia characterized by early spillover of boluses into pharynx, laryngeal penetration of thin and nectar thick liquids during the swallow, and decreased pharyngeal clearing due to weakness and decreased sensation. Laryngeal penetration of thin liquids did not appear to clear the laryngeal vestibule anticipate resulting in aspiration however not directly observed during the study. Penetration of nectar thick liquids less amount and depth and did appear to clear laryngeal vestibule however pt remains at high risk for aspiration of nectar thick liquids due to moderate pharyngeal residue following swallows. 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 Pt continues to demonstrating waxing and waning alertness levels and lethargic during evaluation. Anticipate pt will have prolonged recovery of swallow function. RECOMMENDATIONS: NPO at this time with continued use of alternative form of nutrition. Excellent oral care. Ongoing dysphagia assessment and treatment. Oral Stage Summary*: Pt w/ decreased bolus control and disorganized and repetitive tongue movement. AP transfer mildly delayed likely due to weakness. Pt demonstrated early spillover into pharynx across consistencies likely due to decreased sensation caused by recent CVA. Velopharyngeal closure WFL. Did not trial chewable solids. Pharyngeal Stage Summary*: Pt demonstrates mildly delayed swallow initiation (3- 6 second delay) w/ spillage to valleculae and pyriforms w/ thin and nectar thick liquids due to BOT weakness and decreased sensation likely caused by recent CVA. Epiglottis moved posteriorly but did not invert during the swallow. Pt w/ mild vallecular and minimalpyriform residue following swallows of thin liquids and moderate vallecular residue following swallows ofnectar thick liquids. Residue likely due to weakness and decreased pharyngeal stripping wave/ BOT weakness caused by CVA. Mild laryngeal penetration w/ thin liquids and trace penetration w/ nectar thick liquids during the swallow due to decreased hyolaryngeal elevation. Laryngeal penetration of thin liquids did not appear to clear the laryngeal vestibule anticipate resulting in aspiration however not directly observed during the study. Penetration of nectar thick liquids less amount and depth and did appear to clear laryngeal vestibule however pt remains at high risk for aspiration of nectar thick liquids due to moderate pharyngeal residue following swallows. Decreased anterior movement of arytenoids resulted in decreased laryngeal vestibule closure. Decreased UES opening in width during the swallow. Plan*: Continue Treatment 2-3x/ Week, Patient Would Benefit from Further Speech Therapy Post Acute Hospitalization. Prognosis*: Fair, Good NOMS Dysphagia Rating*: 1- Severe Dysphagia Penetration Aspiration Scale*: 5 - Material enters the airway, contacts the vocal folds, and is not ejected from the airway. Review of Systems Unable to obtain from patient due to aphasia. Physical Exam BP: 111/52 (01/06 1000) Temp: 36.7 C (98.1 F) (01/06 1000) Pulse: 98 (01/06 1000) Respirations: 18 PER MINUTE (01/06 1000) SpO2: 98 % (01/06 1000) O2 Delivery: None (Room Air) (01/06 1230) There is no height or weight on file to calculate BMI. Gen: No Acute Distress, Calm HEENT: PERRL, grossly EOMI, MMM Neck: Supple, no elevated JVP Heart: Regular Rate & Rhythm, no m/g/r Lungs: Clear to auscultation bilaterally, no w/r/r Abdomen: Soft, non-tender, non-distended, +BS; PEG in place : No peter MS: Pt moves all extremities spontaneously with at least anti-gravity strength but noted to have right sided weakness compared with left Neuro: Cranial Nerves Pupils equal and reactive to light DTR's No hyperreflexia Babinski Plantar Reflex is Downgoing Bilaterally Nguyễn Normal Upper Extremity Tone Normal Lower Extremity Tone Normal Clonus Negative Bilaterally Proprioception Intact Bilaterally Memory/Cognition/Speech Fluent aphasia, unable to repeat or comprehend verbal commands; not oriented to self, time, or place Manual Muscle Testing Upper Limb Shoulder Abduction Elbow Flexion Elbow Extension Gym Teacher Right 3-4 3-4 3-4 3-4 Left 5 5 5 5 Lower Limb Hip Flexion Knee Extension Knee Flexion Ankle Dorsiflexion Ankle Plantarflexion Right 3-4 3-4 3-4 3-4 3-4 Left 5 5 5 5 5 Intake/Output Summary: Intake/Output Summary (Last 24 hours) at 01/06/17 1532 Last data filed at 01/06/17 1230 Gross per 24 hour Intake 1457 ml Output 310 ml Net 1147 ml Stool Occurrence: 0 (01/04/2017 7:00 PM) Last BM Date: 01/04/17 (01/06/2017 9:15 AM) BVI (Bladder Scan)(mL): 225 milliliters (01/06/2017 6:11 AM) Straight Cath (mL): 310 (01/06/2017 2:10 AM) No Data Recorded Bladder Accident: 1 (01/06/2017 12:30 PM) Oral Diet Order: NPO (01/05/2017 11:00 AM) Basic Metabolic Profile Lab Results Component Value Date/Time NA 149 (H) 01/06/2017 05:54 AM K 3.8 01/06/2017 05:54 AM CA 9.0 01/06/2017 05:54 AM CL 113 (H) 01/06/2017 05:54 AM CO2 31 (H) 01/06/2017 05:54 AM Lab Results Component Value Date/Time BUN 33 (H) 01/06/2017 05:54 AM CR 0.72 01/06/2017 05:54 AM GLU 218 (H) 01/06/2017 05:54 AM CBC w/Diff Lab Results Component Value Date/Time WBC 10.1 01/06/2017 05:54 AM RBC 3.39 (L) 01/06/2017 05:54 AM HGB 10.4 (L) 01/06/2017 05:54 AM HCT 31.0 (L) 01/06/2017 05:54 AM MCV 91.7 01/06/2017 05:54 AM MCH 30.8 01/06/2017 05:54 AM RDW 15.9 (H) 01/06/2017 05:54 AM PLTCT 355 01/06/2017 05:54 AM MPV 8.5 01/06/2017 05:54 AM Lab Results Component Value Date/Time NEUT 77 01/06/2017 05:54 AM ANC 7.80 (H) 01/06/2017 05:54 AM LYMA 17 (L) 01/06/2017 05:54 AM ALC 1.80 01/06/2017 05:54 AM ANNE 5 01/06/2017 05:54 AM AMC 0.50 01/06/2017 05:54 AM EOSA 1 01/06/2017 05:54 AM AEC 0.10 01/06/2017 05:54 AM BASA 0 01/06/2017 05:54 AM ABC 0.00 01/06/2017 05:54 AM Radiology: Pertinent radiology reviewed MRI Head 12/28/2016 (images and report reviewed): IMPRESSION 1. Severely motion limited examination without obvious change in size of the large left frontal parenchymal hemorrhage or subtle intraventricular extension. 2. No obvious enhancing lesion or abnormal vascular flow voids. 3. 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 in this encounter Procedure Notes * King Laura MD - 01/23/2017 5:52 PM CDT Procedure(s): EEG AWAKE & DROWSY INPATIENT EEG REPORT Date of service: 01/23/2017 Name: Roxy Phillip Date of : 1950 PATIENT HISTORY: This is a 66 y.o. female with a history of a left frontal hemorrhage with new onset abnormal movements. TECHNICAL: This EEG is performed in the awake and drowsy states. The EEG is performed on a 32 channel digital recording device. The 10-20 international system of electrode placement is used with additional FT9 and FT10 electrodes. Hyperventilation is not performed. Photic stimulation is performed. REPORT: BACKGROUND: The posterior dominant rhythm is not seen. The heart rate is 88 bpm. SLEEP: As the patient enters drowsiness there is an attenuation of background rhythms. Stage II sleep is not seen. ABNORMALITIES: 1. There is generalized theta>delta slowing seen throughout the recording period. 2. There is continuous delta>theta slowing seen in the left hemisphere. ICTAL: 1. There are multiple notations of head and arm movements by the EEG technicians. Review of the video shows the patients with athetotic restlessness and sudden movements that would not be a typical seizure semiology. EEG shows myogenic artifact, but no epileptiform activity during these events. IMPRESSION This abnormal EEG is indicative of a mild to moderate encephalopathy and a structural lesion involving the left hemisphere. No epileptiform activity is seen. Multiple movements as described above and noted by the medical office technician are non- epileptic in etiology. in this encounter Consult Notes * Madi Khan MD - 01/23/2017 1:21 PM CDT Associated Order(s): CONSULT OPHTHALMOLOGY PHYSICIAN Formatting of this note may be different from the original. Ophthalmology Consult History and Physical - PGY-2 CC/Reason for Consultation: Eye rubbing, concern for possible corneal abrasion HPI: Pt is a 66 YOF who recently suffered a left hemorrhagic frontoparietal stroke on 12/22 s/p EVD placement. She has been transferred to the inpatient rehab center. She is currently being worked up for "left facial twitching" by neurology with leading ddx of drug-induced hyperkinesis (recently started on modafinil). We are asked to evaluate the patient for corneal pathology or other ocular cause for discomfort. Patient is confused throughout the exam and unable to provide meaningful history. Her is present and states that she has been intermittently rubbing the left eye for about a week now, which is new. She hasn't verbalized any symptoms of pain or blurry vision to him. Per his report, she has been able to read signs in her room and he thinks she still sees well. Per PT/OT report, she did have some discharge in the left eye. Past Medical History: Past Medical History: Diagnosis Date Arthritis Chronic back pain Dementia Osteoporosis TIA (transient ischemic attack) Past Surgical History: Past Surgical History: Procedure Laterality Date HX TONSILLECTOMY HYSTERECTOMY ORTHOPEDIC SURGERY DE CRANIECTOMY HMTMA SUPRATENTORIAL INTRACEREBRAL Left 12/24/2016 CRANIOTOMY EVACUATION HEMATOMA supine microscope, brainlab, tube system performed by Antwan Guadarrama MD at [facility] DE INSERT GASTROSTOMY TUBE PERCUTANEOUS N/A 01/02/2017 INSERTION GASTROSTOMY TUBE PERCUTANEOUS performed by Jong Hankins MD at [facility] Past Ocular History: No history of ocular surgery or trauma. Wears glasses. Per , h/o glaucoma suspect but no dx of glaucoma or treatment initiated Allergies: Allergies Allergen Reactions Penicillins UNKNOWN Tomato SEE COMMENTS Throat swelling Celebrex [Celecoxib] HIVES Artichoke VOMITING Social History: Social History Social History Marital status: Spouse name: N/A Number of children: N/A Years of education: N/A Occupational History Not on file. Social History Main Topics Smoking status: Never Smoker Smokeless tobacco: Never Used Alcohol use No Drug use: No Sexual activity: Not on file Other Topics Concern Not on file Social History Narrative Medications: Scheduled Meds: aspirin chewable tablet 81 mg 81 mg Per NG tube QDAY clopiDOGrel (PLAVIX) tablet 75 mg 75 mg Per NG tube QDAY docusate (COLACE) oral solution 100 mg 100 mg PEG Tube BID heparin (porcine) PF syringe 5,000 Units 5,000 Units Subcutaneous Q8H* insulin aspart (NOVOLOG FLEXPEN) injection PEN 0-14 Units 0-14 Units Subcutaneous 5 X Day levETIRAcetam (KEPPRA) oral solution 750 mg 750 mg Per G Tube BID loratadine (CLARITIN) tablet 10 mg 10 mg Per NG tube QDAY melatonin tablet 5 mg 5 mg Per G Tube QHS senna (SENOKOT) tablet 2 tablet 2 tablet Per G Tube QHS Continuous Infusions: PRN and Respiratory Meds:acetaminophen Q4H PRN, aluminum/magnesium hydroxide Q4H PRN, bisacodyl QDAY PRN, carboxymethylcellulose PRN, milk of magnesia (CONC ) Q4H PRN, pancrelipase 20,000 Units/ sodium bicarbonate 650 mg(#) PRN (Inspector Packer Glass Container from Rx) Family History: No known history of ocular disease PHYSICAL EXAM Near Visual Acuity: Unable Pupils: 4 mm/4 mm, 4+/4+ reactive, No RAPD Tonopen: 26 OD, 22 OS - difficult exam CVF: Unable Motility: Grossly full OU Adnexa: WNL OU. No discharge or mattering OU. Conjunctiva: Papillary conjunctivitis OU. Cornea: Clear OU A/C: Deep/Grossly Clear OU Iris: Round/Flat OU Lens: NS OU DILATED FUNDUS EXAM: (Dilated with 2.5% Phenylephrine and 1% Tropicamide OU. Effects last 4-6 hours ) Attempted exam but unable. LABS/IMAGING: CT Head 01/14 IMPRESSION 1. Slow continued expected evolution of the left frontal hemorrhage. No new hemorrhage. 2. No significant change in mass effect and slight left to right midline shift. A/P: 1. Allergic conjunctivitis, both eyes 2. Nuclear sclerosis, both eyes - no sign of corneal abrasion or ulceration in either eye Recommendations: - begin anti-histamine eye drops in both eyes bid (Zaditor, Pataday, or generics ) - AT's qid prn, both eyes She will need follow-up examination as outpatient, particularly to evaluate intraocular pressure with her "glaucoma suspect" history. As they live in [place], [place], patient's prefers to establish care with an specifications writer closer to home. We are happy to see Ms. Phillip if they decide otherwise. Patient seen with Dr. Khan, Attending Physician. Thank you for the consult. We will sign off. If you have any questions do not hesitate to contact us. Christine Melchor MD Ophthalmology PGY-2 Pager: [phone] [facility] [address] [place] [address] I have personally seen and examined the patient with the ophthalmology resident. I agree with the resident's history, physical findings and assessment /plan of the patient described above with the following additions/revisions: None Madi Khan MD * Lorraine Reese MD - 01/22/2017 3:27 PM CDT Associated Order(s): CONSULT NEUROLOGY PHYSICIAN Formatting of this note may be different from the original. Neurology Consultation Name: Roxy Phillip Admission Date: 01/06/2017 LOS: 16 days [id number] ASSESSMENT: Principal Problem: Nontraumatic cortical hemorrhage of left cerebral hemisphere (HCC) Active Problems: Dysphagia Intraparenchymal hematoma of brain (HCC) Aphasia 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) Impaired mobility and activities of daily living Normocytic anemia Apraxia Consult type: Opinion with orders Roxy Phillip is a 66 y.o. female with PMH of Dementia, TIA, Chronic Back pain who was recently admitted to Neuro ICU for L frontal parenchymal hemorrhage on 12/22/16 requiring EVD replacement that neurology is consulted to evaluate for new onset "left facial twitching" to evaluate for seizure activity. Patient initially presented with weakness and was admitted on 01/06/2017 for Physical Rehabilitation. Neuro exam reveals poor participation, but no tremors or twitches noted, stereotyped rubbing of left face which is intermittent, L face is erythematous with patch rash , L eye is erythematous, no other skin changes or rash present Imaging/Diagnostic Studies: - Impression: At this time, suspect drug induced hyperkinesis vs pruritic infection of L eye/face RECOMMENDATIONS: > Wean off Provigil for one week and reassess behavior changes > Optho consult for L eye examination, patient was very resistant to any examination of L eye and would increase movements when an attempt was made to visualize the eye > Spot EEG, if feasible Thank you for allowing us to participate in the care of this patient. Please page neurology consult team at [phone] with any further questions or concerns. Patient seen and plan of care discussed with Dr. Hernandez and communicated to primary team. __ History of Present Illness: Roxy Phillip is a 66 y.o. female with PMH of Dementia, TIA, Chronic Back pain who was recently admitted to Neuro ICU for L frontal parenchymal hemorrhage on 12/22/16 requiring EVD replacement that neurology is consulted to evaluate for new onset "left facial twitching" to evaluate for seizure activity. Patient initially presented with weakness and was admitted on 01/06/2017 for Physical Rehabilitation. History obtained from patient and her with primary information coming from due to patient's aphasia and dysarthria. reports that Roxy has been rubbing her left face since Thursday evening. PT/OT staff agree that she has been leaning to left and rubbing her left face. This appears to be new behavior for her. Patient was not able to clearly answer whether her face was itching or if she was experiencing any rash or eye discomfort. PT/OT staff remarked that they noticed clear discharge from left eye. No complaints of fever, chills, headache, vision changes, chest pain, dyspnea, nausea, vomiting. Past Medical History: Diagnosis Date Arthritis Chronic back pain Dementia Osteoporosis TIA (transient ischemic attack) Past Surgical History: Procedure Laterality Date HX TONSILLECTOMY HYSTERECTOMY ORTHOPEDIC SURGERY DE CRANIECTOMY HMTMA SUPRATENTORIAL INTRACEREBRAL Left 12/24/2016 CRANIOTOMY EVACUATION HEMATOMA supine microscope, brainlab, tube system performed by Antwan Guadarrama MD [facility] DE INSERT GASTROSTOMY TUBE PERCUTANEOUS N/A 01/02/2017 INSERTION GASTROSTOMY TUBE PERCUTANEOUS performed by Jong Hankins MD at [facility] Social History Social History Marital status: Spouse name: N/A Number of children: N/A Years of education: N/A Social History Main Topics Smoking status: Never Smoker Smokeless tobacco: Never Used Alcohol use No Drug use: No Sexual activity: Not Asked Other Topics Concern None Social History Narrative History reviewed. No pertinent family history. Unable to obtain family history due to patient's condition. Immunizations (includes history and patient reported): There is no immunization history for the selected administration types on file for this patient. Allergies: Penicillins; Tomato; Celebrex [celecoxib]; and Artichoke Medications: Prescriptions Prior to Admission Medication Sig acetaminophen (TYLENOL) 160 mg/5 mL oral solution Take 20.3 mL by mouth every 4 hours as needed. Max of 4,000 mg of acetaminophen in 24 hours. aspirin EC 81 mg tablet Take 81 mg by mouth daily. Take with food. [] cefpodoxime (VANTIN) 100 mg tablet Take 1 tablet by mouth every 12 hours for 4 days. Take with food. clopiDOGrel (PLAVIX) 75 mg tablet Take 1 tablet by mouth daily. Will reevaluate continuation of this medication at your follow up appointment doxazosin (CARDURA) 2 mg tablet Take 1 tablet by mouth daily. duloxetine DR (CYMBALTA) 30 mg capsule Take 30 mg by mouth daily. heparin (porcine) PF 5,000units/0.5mL injection syringe Inject 0.5 mL under the skin every 8 hours. May discontinue once mobilizing well HYDROcodone/acetaminophen (NORCO) 5/325 mg tablet Take 1-2 tablets by mouth every 4 hours as needed levETIRAcetam (KEPPRA) 100 mg/mL oral solution Take 5 mL by mouth twice daily. senna/docusate (SENOKOT-S) 8.8/50 mg /10 mL solution 10 mL by PEG Tube route twice daily. No current facility-administered medications on file prior to encounter. Current Outpatient Prescriptions on File Prior to Encounter Medication Sig Dispense Refill acetaminophen (TYLENOL) 160 mg/5 mL oral solution Take 20.3 mL by mouth every 4 hours as needed. Max of 4,000 mg of acetaminophen in 24 hours. 240 mL 0 aspirin EC 81 mg tablet Take 81 mg by mouth daily. Take with food. clopiDOGrel (PLAVIX) 75 mg tablet Take 1 tablet by mouth daily. Will reevaluate continuation of this medication at your follow up appointment 90 tablet 3 doxazosin (CARDURA) 2 mg tablet Take 1 tablet by mouth daily. duloxetine DR (CYMBALTA) 30 mg capsule Take 30 mg by mouth daily. heparin (porcine) PF 5,000units/0.5mL injection syringe Inject 0.5 mL under the skin every 8 hours. May discontinue once mobilizing well HYDROcodone/acetaminophen (NORCO) 5/325 mg tablet Take 1-2 tablets by mouth every 4 hours as needed 0 levETIRAcetam (KEPPRA) 100 mg/mL oral solution Take 5 mL by mouth twice daily. 473 mL 12 senna/docusate (SENOKOT-S) 8.8/50 mg /10 mL solution 10 mL by PEG Tube route twice daily. Review of Systems: Constitutional: negative Eyes: negative Ears, nose, mouth, throat, and face: rash on L cheek and nose Respiratory: negative Cardiovascular: negative Gastrointestinal: negative Genitourinary: negative Integument/breast: negative Hematologic/lymphatic: negative Musculoskeletal: negative Neurological: stereotyped movements on the left side Behavioral/Psych: irritability Endocrine: negative Allergic/Immunologic: negative Physical Exam: Vital Signs: Last Filed In 24 Hours Vital Signs: 24 Hour Range BP: 121/69 (01/22 300) Temp: 36.4 C (97.6 F) (01/22 300) Pulse: 83 (01/22 300) Respirations: 18 PER MINUTE (01/22 300) SpO2: 100 % (01/22 300) O2 Delivery: None (Room Air) (01/22 300) BP: (109-121)/(62-69) Temp: [36.4 C (97.6 F)-36.7 C (98 F)] Pulse: [83-90] Respirations: [18 PER MINUTE] SpO2: [98 %-100 %] O2 Delivery: None (Room Air) HEENT: normocephalic, eyes open with erythema of L eye and some clear discharge , nares patent, oropharynx is clear with no lesions, palate intact, no bruits Skin: no rashes or lesions Psych: dysthymic, irritable Neuro: Mental status: Oriented to person Memory: Impaired, known case of dementia Attention: Distractible Fund of knowledge: Appropriate Level of consciousness: Alert Speech: Fluency: paraphasias and decreased output Comprehension: some difficulty Articulation: dysarthria CN II-XII: PERRL, otherwise unable to assess due to patient conditin Reflexes: not assessed due to patient condition Cerebellar Funciton/fine movement: not assessed due to patient condition Gait: patient not currently ambulatory, seated in wheelchair Lab/Radiology/Other Diagnostic Tests: Hematology: Lab Results Component Value Date HGB 11.1 01/21/2017 HCT 33.4 01/21/2017 PLTCT 166 01/21/2017 WBC 3.5 01/21/2017 NEUT 77 01/06/2017 ANC 7.80 01/06/2017 ALC 1.80 01/06/2017 ANNE 5 01/06/2017 AMC 0.50 01/06/2017 ABC 0.00 01/06/2017 MCV 93.1 01/21/2017 MCHC 33.2 01/21/2017 MPV 8.2 01/21/2017 RDW 17.4 01/21/2017 , Coagulation: Lab Results Component Value Date PTT 23.7 12/22/2016 INR 1.0 12/22/2016 , General Chemistry: Lab Results Component Value Date NA 138 01/21/2017 K 3.8 01/21/2017 CL 103 01/21/2017 GAP 7 01/21/2017 BUN 14 01/21/2017 CR 0.63 01/21/2017 GLU 88 01/21/2017 CA 9.0 01/21/2017 ALBUMIN 3.8 01/14/2017 OBSCA 1.20 01/06/2017 MG 2.4 01/06/2017 TOTBILI 0.6 01/14/2017 , Enzymes: Lab Results Component Value Date AST 22 01/14/2017 ALT 36 01/14/2017 ALKPHOS 72 01/14/2017 , Endocrine: No results found for: GE, FREET4, TSH and Pertinent labs reviewed POC Glucose (Download): 87 (01/22/17 1247) No pertinent radiology. Lorraine Reese MD Psychiatry PGY-2 Pager [phone] Associated attestation - Jenna Hernandez MD - 01/22/2017 6:01 PM CDT I personally performed the de anda portions of the E/M visit, discussed case with resident and concur with resident documentation of history, physical exam, assessment, and treatment plan unless otherwise noted. Low suspicion for seizures since movement seems semi-purposeful Movements are most consistent with dyskinesia, possible modafinil related in the setting of brain injury ? Rash/ corneal irritation - Aggressively resists opening of left eye, and eye more when shining a light in it. Consider optho consult to evaluate for corneal ulceration. - EEG tomorrow to capture movements to r/o seizures - avoid neuroleptics - wean off modafinil which may cause dyskinesias, would avoid pharmacologic treatment (usually benzos or anticholinergics) unless movements are interfering with rehab. Will continue to follow. Jenna Hernandez MD 01/22/2017 5:47 PM * Memo Bentley MBBS - 01/14/2017 2:11 PM CDT Associated Order(s): CONSULT NEUROLOGY PHYSICIAN Formatting of this note may be different from the original. Neurology Consult Note Admission Date: 01/06/2017 LOS: 8 days Reason for Consult: 66 y/o female w/Hx of large front parenchymal hemorrhage. Pt with regression in therapies concern for possible seizure like activity. Currently on keppra. Consult type: Opinion with orders Assessment/Plan Roxy Phillip is a 66 y.o. female with a past medical history of dementia was on Namenda, H/o TIA was on ASA and Plavix, who was recently admitted to the neuro ICU for left frontal parenchymal hemorrhage 12/22/2016, required EVD placement. She was discharged to rehab on 01/06. Neurology was consulted for evaluation of seizures. Event: She had an event of head and eyes deviation to the left with limping of extremities followed by right sided head and eye deviation. Event lasted up to 2 minutes, returned to baseline and 5 minutes. - MRI Head 12/28: 1. Severely motion limited examination without obvious change in size of the large left frontal parenchymal hemorrhage or subtle intraventricular extension. 2. No obvious enhancing lesion or abnormal vascular flow voids. 3. 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 - CT head on 01/14/17: Slow continued expected evolution of the left frontal hemorrhage. No new hemorrhage. No significant change in mass effect and slight left to right midline shift. - CTA and Angiogram were unremarkable. Impression: Her event could be a seizure with head and eyes versive event. No prior events of seizures. Recommendations: 1. Increase Keppra to 750mg BID. Keep her on Keppra till neurology clinic appointment. 2. No additional benefit of repeating MRI. 3. Neurology clinic follow up appointment in 3-4 months. Clinic appointment No - [phone]. Thank you for the consult. Neurology will sign off. Please call us at [phone] if you have any questions. Patient seen and discussed with Dr. Pascual. History of Present Illness: Roxy Phillip is a 66 y.o. female with a past medical history of dementia was on Namenda, H/o TIA was on ASA and Plavix, who was recently admitted to the neuro ICU for left frontal parenchymal hemorrhage , required EVD placement. She was discharged to rehab on 01/06. Neurology was consulted for evaluation of seizures. On 12/22, she woke up with right facial droop, right-sided weakness, word finding difficulty, and difficulty with swallowing. She was taken to the [facility] and found to have left frontal parenchymal hemorrhage on CT scan. She was then transferred to for further workup. She was required EVD placement in ICU monitoring. Get discharged to rehab on 01/06. This morning, she was working with physical therapy. She had an event when she became very tired and lethargic, when she was walking. She then had an event while she was looking towards left and became completely limp. This was lasted for 30 seconds. After that she was looking to the right. She did not have any shaking.The entire event lasted for couple of minutes. She was unresponsive during this time. She returned back to her baseline within 5 minutes. Past Medical History: Diagnosis Date Arthritis Chronic back pain Dementia Osteoporosis TIA (transient ischemic attack) Past Surgical History: Procedure Laterality Date HX TONSILLECTOMY HYSTERECTOMY ORTHOPEDIC SURGERY DE CRANIECTOMY HMTMA SUPRATENTORIAL INTRACEREBRAL Left 12/24/2016 CRANIOTOMY EVACUATION HEMATOMA supine microscope, brainlab, tube system performed by Antwan Guadarrama MD at [facility] DE INSERT GASTROSTOMY TUBE PERCUTANEOUS N/A 01/02/2017 INSERTION GASTROSTOMY TUBE PERCUTANEOUS performed by Jong Hankins MD at [facility] Social History Substance Use Topics Smoking status: Never Smoker Smokeless tobacco: Never Used Alcohol use No History reviewed. No pertinent family history. Allergies: Penicillins; Tomato; Celebrex [celecoxib]; and Artichoke Scheduled Meds: docusate (COLACE) oral solution 100 mg 100 mg PEG Tube BID doxazosin (CARDURA) tablet 2 mg 2 mg Per NG tube QDAY heparin (porcine) PF syringe 5,000 Units 5,000 Units Subcutaneous Q8H* insulin aspart (NOVOLOG FLEXPEN) injection PEN 0-14 Units 0-14 Units Subcutaneous 5 X Day levETIRAcetam (KEPPRA) oral solution 500 mg 500 mg Per G Tube BID melatonin tablet 5 mg 5 mg Oral QHS modafinil (PROVIGIL) tablet 100 mg 100 mg Oral BID senna (SENOKOT) tablet 2 tablet 2 tablet Per G Tube QHS Continuous Infusions: PRN and Respiratory Meds:acetaminophen Q4H PRN, aluminum/magnesium hydroxide Q4H PRN, bisacodyl QDAY PRN, milk of magnesia (CONC) Q4H PRN, pancrelipase 20, 000 Units/ sodium bicarbonate 650 mg(#) PRN (Inspector Packer Glass Container from Rx) Review of Systems: A 14 point review of systems was negative except for: episode of unresponsiveness Vital Signs: Last Filed in 24 hours Vital Signs: 24 hour Range BP: 116/51 (01/14 449) Temp: 36.3 C (97.3 F) (01/14 449) Pulse: 81 (01/14 449) Respirations: 18 PER MINUTE (01/14 449) SpO2: 97 % (01/14 449) O2 Delivery: None (Room Air) (01/14 449) BP: (116-119)/(51-54) Temp: [36.3 C (97.3 F)-36.7 C (98.1 F)] Pulse: [81-96] Respirations: [18 PER MINUTE] SpO2: [97 %-99 %] O2 Delivery: None (Room Air) Neuro exam: Mental status: awake and alert. oriented to self. intermittently follows simple commands. Speech: answers Yes or no at times. Able to speak few words. Normal Abnormal Fluency x Comprehension x Articulation x Repetition x Naming x Cranial Nerves: Normal Abnormal II Pupils reactive, visual ngo normal to blink to threat III, IV, EOMI V VII Normal facial symmetry VIII nml to finger rub IX, X XI XII Tongue midline Muscle/motor: Moves extremities against gravity. Against resistance in B/L UE grossly. Patinet unable to participate in complete strength exam. Sensation: Unable to participate in sensory exam. Coordination: Normal Abnormal Right Abnormal Left Finger to Nose x Gait and Sation: Able to walk with PT with assistance Reflexes: Right Left Triceps 2 2 Biceps 3 2 Brachioradialis 3 2 Patella 2 2 Ankle 2 2 Plantar upgoing down Lab/Radiology/Other Diagnostic Tests: 24-hour labs: Results for orders placed or performed during the hospital encounter of (from the past 24 hour(s)) POC GLUCOSE Collection Time: 01/13/17 3:34 PM Result Value Ref Range Glucose, POC 170 (H) 70 - 100 MG/DL POC GLUCOSE Collection Time: 01/13/17 9:41 PM Result Value Ref Range Glucose, POC 217 (H) 70 - 100 MG/DL POC GLUCOSE Collection Time: 01/14/17 3:27 AM Result Value Ref Range Glucose, POC 126 (H) 70 - 100 MG/DL POC GLUCOSE Collection Time: 01/14/17 6:37 AM Result Value Ref Range Glucose, POC 132 (H) 70 - 100 MG/DL CBC Collection Time: 01/14/17 7:09 AM Result Value Ref Range White Blood Cells 4.9 4.5 - 11.0 K/UL RBC 3.60 (L) 4.0 - 5.0 M/UL Hemoglobin 11.1 (L) 12.0 - 15.0 GM/DL Hematocrit 32.9 (L) 36 - 45 % MCV 91.3 80 - 100 FL MCH 30.7 26 - 34 PG MCHC 33.6 32.0 - 36.0 G/DL RDW 16.6 (H) 11 - 15 % Platelet Count 142 (L) 150 - 400 K/UL MPV 9.1 7 - 11 FL BASIC METABOLIC PANEL Collection Time: 01/14/17 7:09 AM Result Value Ref Range Sodium 138 137 - 147 MMOL/L Potassium 4.4 3.5 - 5.1 MMOL/L Chloride 106 98 - 110 MMOL/L CO2 22 21 - 30 MMOL/L Anion Gap 10 3 - 12 Glucose 123 (H) 70 - 100 MG/DL Blood Urea Nitrogen 23 7 - 25 MG/DL Creatinine 0.67 0.4 - 1.00 MG/DL Calcium 9.2 8.5 - 10.6 MG/DL eGFR Non >60 >60 mL/min eGFR >60 >60 mL/min POC GLUCOSE Collection Time: 01/14/17 10:43 AM Result Value Ref Range Glucose, POC 239 (H) 70 - 100 MG/DL CBC Collection Time: 01/14/17 11:05 AM Result Value Ref Range White Blood Cells 5.2 4.5 - 11.0 K/UL RBC 3.79 (L) 4.0 - 5.0 M/UL Hemoglobin 11.6 (L) 12.0 - 15.0 GM/DL Hematocrit 34.9 (L) 36 - 45 % MCV 92.1 80 - 100 FL MCH 30.5 26 - 34 PG MCHC 33.1 32.0 - 36.0 G/DL RDW 17.0 (H) 11 - 15 % Platelet Count 171 150 - 400 K/UL MPV 9.3 7 - 11 FL COMPREHENSIVE METABOLIC PANEL Collection Time: 01/14/17 11:05 AM Result Value Ref Range Sodium 135 (L) 137 [...] - 12 eGFR Non >60 >60 mL/min eGFR >60 >60 mL/min POC GLUCOSE Collection Time: 01/14/17 12:39 PM Result Value Ref Range Glucose, POC 253 (H) 70 - 100 MG/DL Memo Bentley MD, MPH Neurology Resident PGY 4 Pager [phone] Associated attestation - Mando Pascual MD - 01/14/2017 3:48 PM CDT Formatting of this note may be different from the original. ATTESTATION I personally performed the de anda portions of the E/M visit, discussed case with resident and concur with resident documentation of history, physical exam, assessment, and treatment plan unless otherwise noted. I personally reviewed vitals, labs. Pertinent neuroradiological imagings were viewed. 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 Staff name: Mando Pascual MD Date: 01/14/2017 * Candice Arias - 01/07/2017 4:57 PM CDT Associated Order(s): CONSULT NEUROREHABILITATION PSYCHOLOGY Please see details from our consult in the progress note from our service on . Thanks, Candice Arias PsyD [phone] * Debbi Lyle - 01/06/2017 4:47 PM CDT Associated Order(s): CONSULT DIETITIAN CLINICAL NUTRITION Clinical Nutrition Note Recommendation: If transition to bolus feeds desired, recommend 1 carton of Isosource 1.5, 4 times daily + minimum 30ml water flush before and after each feeds. Additional fluids per team pending lytes and fluids. Bolus feeds provide 1500 kcal, 68g protein, and 760ml free water from EN. Meets minimum estimated needs. Will continue to monitor and adjust as needed. Debbi Lyle, RD, LD *[phone] in this encounter Miscellaneous Notes * Case Mgmt DC Plan - Lidya Winn - 01/30/2017 12:04 PM CDT Case Management Progress Note NAME:Roxy Phillip :1950 AGE: 66 y.o. ADMISSION DATE: 01/06/2017 DAYS ADMITTED: LOS: 24 days Todays Date: 01/30/2017 Plan Dc to [facility] today 01/30 near 11:30am with and brother transporting. Interventions ? Support Support: Pt/Family Updates re:POC or DC Plan ABBY met with pt, pt's Frank and Frank's brother Jojo to finalize dc plans. Frank verbalized he spoke with Charo of [facility] and feels more comfortable with dc to this facility. Frank had no further questions or concerns. ABBY assisted Antonieta PT and family with pt to car for transport. ? Info or Referral ? Discharge Planning Discharge Planning: Fdc Facility SW printed and placed transfer packet in wallaroo and updated nurse. ABBY faxed DC paperwork to [facility] [phone]. ? Medication Needs ? Financial ? Legal ? Other Disposition ? Expected Discharge Expected Discharge Date: 01/30/17 Expected Discharge Time: 1130 ? Discharge Disposition Disposition: Fdc Facility (SNF) Fdc/Long-Term Care Facility State: [place] SNF/LTCF [place] Other (specify) Other Fdc/Long-Term Care Facility (Name, Phone, & Fax): [facility] Charo with admissions [phone] F:[phone] Lidya Winn [facility] *[phone] * Case Mgmt DC Plan - Lidya Winn - 01/29/2017 5:00 PM CDT Case Management Progress Note NAME:Roxy Phillip :1950 AGE: 66 y.o. ADMISSION DATE: 01/06/2017 DAYS ADMITTED: LOS: 23 days Todays Date: 01/29/2017 Plan Anticipated dc to [facility] tomorrow 01/30 near 11am with and brother transporting. Interventions ? Support Support: Pt/Family Updates re:POC or DC Plan ABBY met with pt and to discuss acceptance to [facility]. Frank verbalized he would prefer to drive her with his brother's help. PT to work with and pt today on car transfer. SW updated Frank stretcher transport will be $650 if needed. SW spoke with PT and they verbalized car transfer went well. SW met with Frank and he verbalized worry about not being able to stay the night with pt at [facility] and questioned whether pt would be better at dementia SNF. SW explained they can provide him with another SNF list, however ABBY is not familiar with [facility] SNF's. ABBY suggested he call the SNF's to inquire if they are a dementia unit or if they have private rooms for him to stay. Frank continued to perseverate on being by pt's side 08/12 and not feeling as though he can leave. SW attempted to calm Frank and have him take a step back. SW reiterated the importance of self-care. SW educated they would complete some checking for him and f/u with him later. ABBY contacted pt's dgt Soledad and expressed concern over Frank's anxiety and overall wellbeing and concern for pt. ABBY also educated on Frank's concern about staff and being able to stay all night with pt. Soledad explained she was aware of her dad's anxiety and agreed no place is going to be able to provide the type of care he would really like for pt. Soledad stated she toured [facility] and feels comfortable with it stating it is updated and the staff seemed very attentive and helpful. Soledad plans to call her dad to help him feel better and think things through. ABBY contacted Charo [phone] with [facility] and she verbalized there is not room for Frank to have a place to sleep, however she will ask if it is okay if he sits with her all night. Charo also verbalized pt's roommate at [facility] has a lot of needs and staff is in and out of their room regularly. Charo verbalized she would call Frank marlon and try to calm him fears. ABBY contacted [facility] and they do not have a bed available. Roosevelt stated they and [facility] are the only two facilities with private rooms and they are currently full. Roosevelt educated there are no dementia units in the area and per the rep's assumption pt would likely not be appropriate for a dementia unit. ABBY contacted [facility] and they do have a private room available and would be able to stay, however he would pay an extra $22 a day for the private room. ABBY met with Frank and he appeared much calmer and relaxed stating he would like pt to go to [facility] and he trusts his dgt on the appropriateness of the facility. ABBY educated there is no place for him to sleep, however they may let him sit there, but he would need to ask. ABBY educated Charo with [facility] plans to call him later this afternoon to discuss this. ABBY also educated Charo reported pt's roommate at [facility] calls nursing staff often and staff frequents the room. Frank verbalized goal for dc tomorrow to [facility]. Frank explained his brother will be here prior to 11am when therapy assists with car transfer. ? Info or Referral ? Discharge Planning Discharge Planning: Fdc Facility ? Medication Needs Medication Needs: Co-Pay Check (ABBY will complete Provigil copay check.) ? Financial ? Legal ? Other Disposition ? Expected Discharge Expected Discharge Date: 01/30/17 Expected Discharge Time: 1100 ? Discharge Disposition Disposition: Fdc Facility (SNF) Fdc/Long-Term Care Facility State: [place] SNF/LTCF [place]: Other (specify) Other Fdc/Long-Term Care Facility (Name, Phone, & Fax): [facility] Charo with admissions [phone] F:[phone] Lidya Winn [facility] [place] *[phone] * Case Mgmt DC Plan - Lidya Winn - 01/28/2017 2:59 PM CDT Case Management Progress Note NAME:Roxy Phillip :1950 AGE: 66 y.o. ADMISSION DATE: 01/06/2017 DAYS ADMITTED: LOS: 22 days Todays Date: 01/28/2017 Plan Anticipated dc to SNF when accepted potentially tomorrow 01/29 vs Tuesday 01/30. Interventions ? Support Support: Pt/Family Updates re:POC or DC Plan Antonieta MORA PT, Esther OT and Yasir OT met with pt, pt's Frank and dgt Soledad [phone] on speaker phone. Family explained they discussed pt's needs and believe pt may need further time with therapy at SNF prior to dc home. Team discussed pt's progress and current participation in therapy. Team discussed transportation to SNF closer to home and explained SNF would likely not be able to provide transportation, therefore family could transport with at least two people assisting vs setting up stretcher transport. would prefer the safest travel option with stretcher van. SW advised they would complete stretcher van quotes for transport to SNF. ? Info or Referral ? Discharge Planning Discharge Planning: Fdc Facility SW sent referrals to [facility], [facility] and [facility] through [employer]. 's first request is [facility]. SW contacted [facility] and they reported they no longer receive allscripts referral. ABBY hard faxed referral to [facility] F:. ABBY tasked HELP DESK SUPERVISOR to check stretcher van quotes to [facility] and [facility]. ABBY canceled hospital bed and mechanical lift order with [facility]. ABBY canceled tube feed order through [employer]. ABBY canceled hh through [facility] . ? Medication Needs ? Financial ? Legal ? Other Disposition ? Expected Discharge Expected Discharge Date: 01/30/17 ? Discharge Disposition Disposition: Fdc Facility (SNF) Lidya Winn LMSW *[phone] * Case Mgmt DC Plan - Lidya Winn - 01/27/2017 3:55 PM CDT Case Management Progress Note NAME:Roxy Phillip :1950 AGE: 66 y.o. ADMISSION DATE: 01/06/2017 DAYS ADMITTED: LOS: 21 days Todays Date: 01/27/2017 Plan Anticipated dc to home on 01/30 with consistent supervision and physical assist. Pt requires variable assist for ADLs, however can be total assist at times. Pt may potentially dc to SNF if unable to provide support immediately with family arranging private caregiver assist along with 's assistance. Team conference, pt's began 24 hour care for pt with staff assisting with questions, however demonstrating his ability to provide care. Plan for to provide this type of assistance for a full 48 hours prior to dc. Goal for household ambulation with no device, however inconsistent due to cognition. Pt is variable assist for ADLs and mobility. Pt is assist x's 2 at times. Pt requires mod/max cueing and can be lethargic at times. is able to assist pt with walking and stairs. has completed one peg tube feedings with medications, however needed lots of guidance. Dc provigil and plan to start Aricept. Interventions ? Support Support: Pt/Family Updates re:POC or DC Plan ABBY met with pt, pt's Frank and PT Antonieta to provide team conference updates. Frank in agreement with dc date of 01/30 and feels good about providing her cares thus far. Frank verbalized he has assisted with brief change and a peg tube feeding with medications today. Frank verbalized his dgt Soledad is off on and she will come up for training on 01/29. Frank also shared his brother would be staying with him immediately following dc to provide assistance. ABBY and Antonieta encouraged him to check into the private duty care giving. Frank verbalized he is in agreement with providing cares to pt over the next 48 hours until pt's dc to learn pt's cares for home and ensure he is capable of caring for pt. ABBY also explained hospital bed has been ordered through [facility] and advised they should be in touch with him in regards to delivery. ABBY added team in unsure if pt will qualify for lift, however it will be ordered through the same company. ABBY added it will not be provided by date of dc as they must order it and it may take a week to obtain. ABBY received call from Shama pt's niece [phone]. Shama verbalized she is from [place] and plans to fly in, however she cannot arrive until about 9am on Tuesday 01/30. Shama voiced many concerns with Frank safely taking pt home. Shama voiced concerns related to Frank's health and abilities with pt. She also voiced concern related to pt and Frank's son Bassam. Shama voiced Bassam stays with pt and Frank and takes money and does not act like a responsible, helpful adult which will only hinder Frank's ability to care for pt. ABBY educated they were informed Bassam had moved out over the weekend and Shama verbalized she ws not aware of this, however she would be following up on this. ABBY shared they are at liberty to discuss pt's care without permission from Frank and Shama verbalized understanding stating she would rather this information be confidential from Frank at this time. ABBY encouraged Shama to try to arrive earlier to express concerns with Frank and team in person or inquired into whether pt's dgt Soledad may be able to voice concerns when she comes for training on 01/29. Shama explained she would be calling pt's dgt Soledad to discuss this. SW received call from pt's dgt Soledad [phone]. ABBY inquired into whether she would be present on unit for training on 01/29 and Soledad educated her dad must have gotten confused as she had today 01/27 off, however she works the rest of the week. Soledad verbalized concern in regards to her mom discharging home with only of the assistance of her dad stating she did not ask her dad further questions, however assumed pt would dc to a SNF. Soledad also stated the information she received from her dad made it seem he could potentially care for her at home. Soledad shared they went to pt's home over the weekend and installed the ramp, however Soledad educated her older brother Bassam had been staying there. Soledad stated the house is a mess and a lot needs to be done before pt comes homes. ABBY inquired into whether she has voiced concerns with her dad in regards to taking pt home. Heidy expressed she would call her dad marlon to express concerns. ABBY scheduled mtg with pt's dgt Soledad to call in along with therapy staff and pt's Frank tomorrow 01/28 at 10:45am to address concerns and work out dc plan. ? Info or Referral ? Discharge Planning Discharge Planning: (SNF vs home with assistance and need for hospital bed, silas lift, tub transfer bench and commode with ongoing PT/OT/ST through HH services and tube feedings.) ? Medication Needs Medication Needs: Co-Pay Check (ABBY will complete Provigil copay check.) ABBY faxed mechanical lift order to [facility] P: [phone] F:[phone]. ABBY spoke with rep at [facility] in regards to hospital bed and she verbalized pt would qualify for bed. ABBY educated they will fax mechanical lift or and she advised it can take up to a week as they have to order this in. ABBY will look into other locations to obtain lift. ABBY informed Carrie with [facility] ([facility]) of anticipated dc date update. ? Financial ? Legal ? Other Disposition ? Expected Discharge Expected Discharge Date: 01/30/17 ? Discharge Disposition Lidya Winn [facility] *[phone] * Rehab Team Conference - Madhavi Martinez - 01/27/2017 10:19 AM CDT Formatting of this note may be different from the original. Team Conference Note Date of Admission: 01/06/2017 Date of Team Conference: 01/27/2017 Roxy Phillip is a 66 y.o. female. : 1950 Team Conference Attendees:Madhavi Duke MD, Attending Physician ; Marcos Pena MD, Resident Physician; Lidya Winn [facility], Social Work; Liza Lees PhD, ABPP, Neuropsychology; Dionna Holguin PhD; Post Doctoral Fellow, Neuropsychology; Madhavi Martinez, Experimental Machining Lab Manager; Gabrielle Rodriguez PharmD ; Wilfredo Chatterjee PharmD; Diane Stein RN, Clinical Manager Underwriting; Stephanie Lobato INTERNAL CONSULTANT; Marylu Currie RN, Rehab Sales And Leasing Consultant; Joan Alcala RN, Nurse Customer Support Agent; Debbi Lyle RD LD; Esther Cannon OTR;Yasir Hernandez OTS; Antonieta Suazo PT; Emily Argueta RN Medical Update: Rehab Dx: left frontal parenchymal hemorrhage is a 66 y/o female who was found to have left frontal parenchymal hemorrhage s/p evacuation and EVD placement and subsequent removal. UTI growing Ecoli not covered by vantin, treated with levaquin. Concern for regression therapies, CT head negative. Pt improved after proper treatment of UTI. EEG for seizure like activity- negative for seizure activity. Aricept started for aphasia. NeuroPsych: Patient did not respond to mood screening questions. Team Goal: Patient will perform: household mobility, at ambulation level, Minimum assistance, Least assistive device, Progressing (inconsistent performance due to cognition) Pt will perform basic care and transfer with: Minimum assistance Discharge Planning Discharge Date: 01/30/17 SNF vs home with assistance and need for hospital bed, silas lift, tub transfer bench and commode with ongoing PT/OT/ST through HH services and tube feedings. to provide cares to pt 24/ starting today for full understanding of pt' s care needs at home. Type of Residence: Home, dependent on others (some supervision required) Living Arrangements: Spouse/significant other Bathroom Shower / Tub: Tub/Shower Unit Bathroom Toilet: Standard Bathroom Equipment: Hand-Held Shower Bathroom Accessibility: Not Accessible (Could use walker to side-step) How many levels in the residence?: 1 (Pt has 4 steps with one rail to enter home.) Can patient live on one level if needed?: Yes Support Systems: Other family (Pt's is retired and available for consistent supervision, however has his own medical concerns and receives disability, therefore he is limited with physical assist. Pt's dgt Soledad, RN lives 45 minutes away and works.) Assistance Needed: Yes Who provides assistance or could if needed?: Frank Are they in good health?: Yes (Frank has had a stroke in the past and is on disability, therefore is limited with physical support.) Can support system provide 08/12 care if needed?: Yes Home Care Services: No Frank verbalized family has been very supportive since pt has been hospitalized, however he does not believe he will have much support at home. Frank explained it will likely only be him to provide supervision to pt stating his dgt Soledad is supportive, however she lives 45 minutes away and works. Frank verbalized he is limited on physical support he can provide to pt as he had a stroke a couple of years ago and was on disability prior to this. Frank verbalized concern over pt using their home bathroom stating he does not believe it will be accessible with a rw. The bathroom has a step down to enter. Pt has a tub shower with sliding doors. Level of Function Prior level of function: Independent (Pt independent and driving, however she had a few memory concerns where she would write lists to remember.) Coverage Primary Insurance: Medicare Secondary Insurance: Commercial insurance (BCBS) Additional Coverage: RX (BCBS) Source of Income Source Of Income: Other fpc income PCP Marylu Ochoa DME DME at home: None Home Health Receiving home health: No Plan SNF vs Home with spouse and hired assist;pt is variable assist for ADLs but at times total assist x2 person and variable assist for mobility, Home Health OT/PT/ST DME:commode, hospital bed, [id number] wheelchair, silas lift Rehabilitation Plan Progress At times, patient demonstrates improved alertness and participation. When alert and motivated pt can attend to task for 30-45 seconds before requiring verbal cue Spouse participating family training for ADL assist and functional transfers Can walk with minimal assist & perform stairs with minimal assist as cognition allows Improvements w/ trials of thin liquids. Good participation in 01/26/17 therapy sessions. Barriers/Concerns Continues to require mod to max cueing for mobility with physical assist to initiate at times Unable to consistently follow commands Pt requires max verbal cues and at times physical hand over hand assist to initiate, attend, and complete ADLs Pt can be total assist with ADLs dependent on lethargy and motivation Motor Apraxia Can require 2 person assist to stand for pant management depending on pt motivation Concerns for spouse's ability to care for patient at home due to need for 08/12 care Aphasia - fluent w/ poor auditory comprehension. Limited testing given poor pt participation. Reduced attention to therapy tasks. Attention waxes and wanes. NPO w/ PEG. Frequent oral care. Showing improvements w/ trials of thin. Recommend consistent supervision upon discharge given impaired communication, memory, and problem solving. Recommend assistance w/ medications and finances. cognitive deficits, unable to follow commands on & off, slow responses Plan Continue family training with spouse, 08/12 care begins tomorrow with spouse. Pt to complete ADLs with min assist and verbal cues to initiate and sequence tasks correctly. Decreased endurance to be addressed through therapeutic activities. Cognitive deficts to be addressed with therapeutic activities and compensatory strategies as needed. Family training to be completed for assist with ADL/IADLs and functional transfers. Pt being seen for 60-minutes therapy targeting cognition, language, and dysphagia. antifungal cream to buttocks Pt will tolerate being up for all therapies (up/down schedule) Complete family training with spouse (08/12 trial 01/27) Graduation Day , 01/29 Goals Speech Care Center Manager Goals Will improve communication for basic wants and needs with: Moderate assist, Progressing Weekly Goals Weekly Bed Mobility Goals: Patient will perform sit to supine with, Patient will perform supine to sit with Patient will perform sit to supine with: Moderate assistance, Not progressing Patient will perform supine to sit with: Moderate assistance, Not progressing Weekly Transfer Goals: Patient will complete sit to stand transfer with, Patient will complete stand pivot transfer with Patient will complete sit to stand transfer with: Moderate assistance, Achieved , Minimum assistance (inconsistently) Patient will complete stand pivot transfer with: Moderate assistance, Achieved, Minimum assistance (inconsistently) Weekly Ambulation/Stairs Goals: Patient will ambulate, Patient will ascend/ descend Patient will ambulate: 150 feet, Least assistive device, Moderate assistance, Achieved Patient will ascend/descend: 4 stairs, Moderate assistance, No rail, Achieved Weekly Goals Patient Will Perform Bathing: w/ Minimum Assist, w/ Cues Patient Will Perform UE Dressing: w/ Minimum Assist, w/ Cues Patient Will Perform LE Dressing: w/ Minimum Assist, w/ Cues Patient Will Perform Grooming: w/ Minimum Assist, Standing at Sink, w/ Cueing Patient Will Perform Toileting: w/ Minimum Assist, w/ Cues Pt will complete functional tasks/activities standing with ___ for ___ minutes: Minimum assistance, 5 Pt will demonstrate simple meal prep with ___ at ___: Minimum assistance Other OT Weekly Goals: Complete family training for assist with ADL/IADLs Speech Short Term Goals Patient will follow concrete 1-part commands: 60% accuracy, Moderate cues Patient will identify object in a field of 2: 60% accuracy, Moderate cues Patient responds to yes/no questions regarding personal/ environmental information with nods, gestures, eye blinks, or pointin% accuracy, Moderate cues Will demonstrate confrontation naming with: 60% accuracy, Moderate cues Will perform automatic speech tasks with: 60% accuracy, Moderate cues Will participate in ongoing assessment of swallow bedside: Progressing Will participate in repeat instrumental swallow evaluation when clinically indicated: Progressing Nursing Short Term Goals Bladder Management: Yes Will decrease the number of bladder accidents during the day and/or night to: No accidents Patient / Caregiver will verbalize signs & symptoms of urinary tract infection and what action to do with: Maximum verbal cues Patient will follow time voiding program independently with: Not progressing Bowel Management: Yes Will decrease the number of bowel accidents during the day and/or night to: 1 accident Will verbalize need to have a bowel movement daily/every other day (for constipation) with: Maximum verbal cues Medication Management: Yes Will verbalize reason for medication with: Not progressing, Maximum verbal / written cues Will verbalize dose and time for medication with: Not progressing, Maximum verbal / written cues Will verbalize side effects of medication with: Not progressing, Maximum verbal / written cues Skin Integrity: Yes Will verbalize optimal skin care routine with: Maximum verbal cues Pain Management: Yes Will verbalize pain level at or between ____ at rest: 0, Progressing Will verbalize pain level at or between ____ with activity: Progressing Safety: Yes Will demonstrate understanding of own limitations with: Not progressing Nutrition: Yes Will demonstrate appropriate nutritional intake with: Maximum verbal cues Patient / Caregiver will be able to verbalize knowledge of proper nutrition to prevent fluid overload with: Maximum verbal cues Will verbalize knowledge of signs / symptoms of aspiration with: Maximum verbal cues Will be able to verbalize swallowing precautions / techniques with: Maximum verbal cues Functional [place] Measures Eating FIM: 1 - Total assistance, patient performs less than 25% of eating tasks Grooming FIM: 1 - Total assistance, patient performs less than 25% of grooming/ bathing/dressing/toileting tasks Bathing FIM: 1 - Total assistance, requires 2 staff to assist Dressing - Upper Body FIM: 1 - Total assistance, patient performs less than 25% of grooming/bathing/dressing/toileting tasks Dressing - Lower Body FIM: 1 - Total assistance, requires 2 staff to assist Toileting FIM: 1 - Total assistance, requires 2 staff to assist (incontinent with B&B, very hard to do with B&B trainings) Bladder FIM: 1 - Total assistance, patient expends less than 25% effort ( complete % of assist, if change diapers, total assist) Bowel FIM: 1 - Total assistance, patient expends less than 25% effort (complete % of assist, if change diapers, total assist) Transfers FIM: 1 - Total assistance, patient performs less than 25% of transferring tasks Toilet Transfers FIM: (incontinent) Shower Transfers FIM: 1 - Total assistance, two or more people Gait: 4 - Minimal contact assistance, patient expends 75% or more effort, greater than or equal to 150 feet Stairs FIM: 1 - Total assistance, ambulates up and down fewer than 4 stairs Comprehension FIM: 1 - Total assistance. Understands less than 25% of the time or does not understand simple, commonly used spoken expressions or gestures Expression FIM: 1 - Total assistance - Expresses <25% of the time or does not express simple, commonly used spoken expressions or gestures Social Interaction FIM: 1 - Total assistance - Able to interact appropriately with staff, patient and family members <25% of the times Problem Solving FIM: 1 - Total assistance - Able to solve routine problems <25% of the time. May require constant 1:1 direction to complete simple daily activities. May need restraint for safety Memory FIM: 1 - Total assistance - Able to recognize people frequently encountered, remembers daily routines, responds to requests of others <25% of the time or does not effectively recognize and remember Associated attestation - Madhavi uDke MD - 01/27/2017 3:37 PM CDT I personally led the interdisciplinary team meeting and concur with all decisions made by the interdisciplinary team. Madhavi Duke MD * Case Mgmt DC Plan - Lidya Winn - 01/26/2017 2:18 PM CDT Case Management Progress Note NAME:Roxy Phillip :1950 AGE: 66 y.o. ADMISSION DATE: 01/06/2017 DAYS ADMITTED: LOS: 20 days Todays Date: 01/26/2017 Plan Anticipated dc to home on 01/28 with consistent supervision and physical assist. Pt requires variable assist for ADLs, however can be total assist at times. Pt may potentially dc to SNF if unable to provide support immediately with family arranging private caregiver assist along with 's assistance. Interventions ? Support Support: Pt/Family Updates re:POC or DC Plan Antonieta MORA PT, Esther OT and Sophia INTERNAL CONSULTANT met with pt and pt's Frank to discuss dc plans. Frank will begin to complete all of pt's care needs over the next 24 hours to determine whether he is able to provide assist to pt at home independently. Frank voiced he wants to take pt home, however understands if he and pt are not safe to dc SNF dc may be more appropriate while she continues to receive therapy and he arranges additional private duty caregiving at home. ABBY provided Frank with private duty caregiver list for the [facility] and team encouraged he contact providers immediately to see whether they may be a good fit and if he can afford the assistance. Team reiterated importance of self-car and encouraged him to take a walk to assist with clearing his mind and thinking it through fully. ABBY educated they would f/u with him tomorrow 01/27 to discuss options further. ? Info or Referral ? Discharge Planning Discharge Planning: (SNF vs home with assistance and need for hospital bed, silas lift, tub transfer bench and commode with ongoing PT/OT/ST through HH services and tube feedings.) ABBY faxed hospital bed order to [facility] P: [phone] F:. ? Medication Needs Medication Needs: Co-Pay Check (ABBY will complete Provigil copay check.) Provigil dc'd from pt's JUL. ABBY spoke with charge account clerk and requested he schedule diabetic education for 01/27 if able. ? Financial ? Legal ? Other Disposition ? Expected Discharge Expected Discharge Date: 01/28/17 ? Discharge Disposition Lidya Winn, [facility] [place][phone] * Med Student Consult - Suman Gallardo, MS - 01/22/2017 4:54 PM CDT Formatting of this note may be different from the original. Neurology Consult Note Admission Date: 01/06/2017 LOS: 16 days Reason for Consult: Abnormal movements Consult type: Neurology Assessment/Plan Abnormal movements -Admitted on 12/22 with R frontal IPH w/ IVH -Neuro consulted previously for seizure like activity --> increased keppra to 750mg BID and symptoms have resolved -consulted today for continuous rubbing of left side of face X 4 days -Drainage from left eye and erythematous rash present on left side of face -Spot EEG to assess for epileptic activity and consult opthalmology for left eye drainage History of Present Illness: Roxy Phillip is a 66 y.o. female who was admitted on 12/22/16 with a left frontal IPH and IVH who was transferred to in rehab on 01/06. Neurology was originally consulted last week for seizure like activity characterized by left eye deviation and head turning. Her keppra was increased to 750mg BID and these symptoms resolved. Per patient's , the patient has been continuously rubbing the left side of her face since Thursday evening, 12/18/16. He reports that the movements wax and wane in frequency and are present at night while she sleeps. reports that the patient does not appear to lose consciousness. Per PT report, the left eye was draining clear fluid at one point. The patient has been taking claritin since Thursday without relief. Past Medical History: Diagnosis Date Arthritis Chronic back pain Dementia Osteoporosis TIA (transient ischemic attack) Past Surgical History: Procedure Laterality Date HX TONSILLECTOMY HYSTERECTOMY ORTHOPEDIC SURGERY DE CRANIECTOMY HMTMA SUPRATENTORIAL INTRACEREBRAL Left 12/24/2016 CRANIOTOMY EVACUATION HEMATOMA supine microscope, brainlab, tube system performed by Antwan Guadarrama MD at [facility] DE INSERT GASTROSTOMY TUBE PERCUTANEOUS N/A 01/02/2017 INSERTION GASTROSTOMY TUBE PERCUTANEOUS performed by Jong Hankins MD at [facility] Social History Substance Use Topics Smoking status: Never Smoker Smokeless tobacco: Never Used Alcohol use No History reviewed. No pertinent family history. Allergies: Penicillins; Tomato; Celebrex [celecoxib]; and Artichoke Scheduled Meds: [START ON 01/23/2017] aspirin chewable tablet 81 mg 81 mg Per NG tube QDAY [START ON 01/23/2017] clopiDOGrel (PLAVIX) tablet 75 mg 75 mg Per NG tube QDAY docusate (COLACE) oral solution 100 mg 100 mg PEG Tube BID heparin (porcine) PF syringe 5,000 Units 5,000 Units Subcutaneous Q8H* insulin aspart (NOVOLOG FLEXPEN) injection PEN 0-14 Units 0-14 Units Subcutaneous 5 X Day levETIRAcetam (KEPPRA) oral solution 750 mg 750 mg Per G Tube BID [START ON 01/23/2017] loratadine (CLARITIN) tablet 10 mg 10 mg Per NG tube QDAY melatonin tablet 5 mg 5 mg Per G Tube QHS modafinil (PROVIGIL) tablet 200 mg 200 mg Per NG tube BID senna (SENOKOT) tablet 2 tablet 2 tablet Per G Tube QHS Continuous Infusions: PRN and Respiratory Meds:acetaminophen Q4H PRN, aluminum/magnesium hydroxide Q4H PRN, bisacodyl QDAY PRN, carboxymethylcellulose PRN, milk of magnesia (CONC ) Q4H PRN, pancrelipase 20,000 Units/ sodium bicarbonate 650 mg(#) PRN (Inspector Packer Glass Container from Rx) Vital Signs: Last Filed in 24 hours Vital Signs: 24 hour Range BP: 120/79 (01/23 1600) Temp: 36.8 C (98.2 F) (01/23 1600) Pulse: 103 (01/23 1600) Respirations: 18 PER MINUTE (01/23 1600) SpO2: 98 % (01/23 1600) O2 Delivery: None (Room Air) (01/23 1600) BP: (109-121)/(62-79) Temp: [36.4 C (97.6 F)-36.8 C (98.2 F)] Pulse: [83-103] Respirations: [18 PER MINUTE] SpO2: [98 %-100 %] O2 Delivery: None (Room Air) Physical Exam HEENT --> erythematous macules on left side of face a nose. Mildly erythematous left eye. Neuro exam: Mental status: alert, but oriented to only person. Does not follow commands. Speech: Normal Abnormal Fluency x Comprehension x Articulation x Repetition x Naming x Cranial Nerves: Normal Abnormal II Pupils reactive, visual ngo normal III, IV, Unable to assess due to lack cooperation V Unable to assess due to lack cooperation VII Normal facial symmetry VIII Unable to assess due to lack cooperation IX, X Unable to assess due to lack cooperation XI Unable to assess due to lack cooperation XII Unable to assess due to lack cooperation Muscle/motor: Unable to assess due to lack patient cooperation Sensation: Unable to assess due to lack patient cooperation Coordination: Unable to assess due to lack of patient cooperation Gait and Sation: Unable to assess due to lack of patient cooperation Reflexes: Right Left Triceps 2 2 Biceps 2 2 Brachioradialis 3 2 Patella 2 2 Ankle 2 2 Plantar down down Suman Gallardo, MS * Case Mgmt DC Plan - Lidya Winn - 01/20/2017 3:51 PM CDT Case Management Progress Note NAME:Roxy Phillip :1950 AGE: 66 y.o. ADMISSION DATE: 01/06/2017 DAYS ADMITTED: LOS: 14 days Todays Date: 01/20/2017 Plan Anticipated dc to home on 01/28 with consistent supervision and physical assist. Pt requires variable assist for ADLs, however can be total assist at times. Team conference, goal for assist for ADLs which can at times be total assist with mobility with wc. Pt's cognition and motivation can fluctuate. Barriers also include pt's low endurance and balance issues. has began family training with therapy. had difficulty with transferring pt to toilet and pulling pants down. Pt will requires tube feeds at dc and ongoing PT/OT/ST through services. Pt will require tub transfer bench, commode and wc, potential hospital bed if able to qualify. Interventions ? Support Support: Pt/Family Updates re:POC or DC Plan SW met with pt and pt's Frank while pt slept and received tube feeding. SW provide team conference updates and pt verbalized he believes he can provide 24/7 assistance to pt at home. Frank expressed he would prefer to take her home over SNF as he can be with her all the time and is afraid he would not be allowed to stay with pt at SNF 24/7. Frank also explained he has begun training and had to get pt out of bed this morning which required total assist. Frank expressed he was interested in receiving further family training with therapy, as well as, learning tube feeds. ABBY discussed private duty caregiving if he needs further assistance. Frank verbalized understanding. Frank inquired into whether pt would qualify for hospital bed and ABBY educated they would unsure, however they would f/u with PT. ABBY f/u with Antonieta PT and she will work on hospital bed and wc note. Frank verbalized he can obtain tub transfer bench and commode. ? Info or Referral ? Discharge Planning Discharge Planning: (SNF vs home with assistance and need for hospital bed, silas lift, tub transfer bench and commode with ongoing PT/OT/ST through services and tube feedings.) ? Medication Needs Medication Needs: Co-Pay Check (SW will complete Provigil copay check.) Per request, ABBY sent referral to [facility] for tube feeds. ABBY sent referral to [facility] in [place] through [employer]. [facility] contacted ABBY and verbalized they are able to accept for ongoing RN/PT/OT. ? Financial ? Legal ? Other Disposition ? Expected Discharge Expected Discharge Date: 01/28/17 ? Discharge Disposition Lidya Winn LMSW *[phone] * Rehab Team Conference - Madhavi Martinez - 01/20/2017 10:30 AM CDT Formatting of this note may be different from the original. Team Conference Note Date of Admission: 01/06/2017 Date of Team Conference: 01/20/2017 Roxy Phillip is a 66 y.o. female. : 1950 Team Conference Attendees: Flash Garcia MD, Attending Physician; Marcos Pena MD, Resident Physician; Lidya Winn COLLECTION SYSTEMS TECHNICIAN, Social Work; Liza Lees PhD, ABPP, Neuropsychology; Dionna Holguin PhD; Post Doctoral Fellow, Neuropsychology; Madhavi Martinez, Experimental Machining Lab Manager; Gabrielle Rodriguez PharmD; Diane Stein RN, Clinical Manager Underwriting; Stephanie Lobato INTERNAL CONSULTANT; Marylu Currie RN, Rehab Sales And Leasing Consultant; Joan Alcala RN, Nurse Customer Support Agent; Debbi Lyle RD LD; Esther Canonn OTR;Yasir Hernandez OTS: Antonieta Suazo PT; Natalie Walden RN Medical Update: Rehab Dx: left frontal parenchymal hemorrhage is a 66 y/o female who was found to have left frontal parenchymal hemorrhage s/p evacuation and EVD placement and subsequent removal. UTI growing Ecoli not covered by vantin, treated with levaquin. Concern for regression therapies, CT head negative. Pt improved after proper treatment of UTI. Team Goal: Patient will perform: household mobility, at ambulation level, Least assistive device, Minimum assistance, Progressing (limited progress due to lethargy) Pt will perform basic care and transfer with: Minimum assistance Discharge Planning Discharge Date: 01/28/17 (if discharging home, sooner of spouse is unable to take her home) Type of Residence: Home, dependent on others (some supervision required) Living Arrangements: Spouse/significant other Bathroom Shower / Tub: Tub/Shower Unit Bathroom Toilet: Standard Bathroom Equipment: Hand-Held Shower Bathroom Accessibility: Not Accessible (Could use walker to side-step) How many levels in the residence?: 1 (Pt has 4 steps with one rail to enter home.) Can patient live on one level if needed?: Yes Support Systems: Other family (Pt's is retired and available for consistent supervision, however has his own medical concerns and receives disability, therefore he is limited with physical assist. Pt's dgt Soledad, RN lives 45 minutes away and works.) Assistance Needed: Yes Who provides assistance or could if needed?: Frank Are they in good health?: Yes (Frank has had a stroke in the past and is on disability, therefore is limited with physical support.) Can support system provide 24/7 care if needed?: Yes Home Care Services: No Frank verbalized family has been very supportive since pt has been hospitalized, however he does not believe he will have much support at home. Frank explained it will likely only be him to provide supervision to pt stating his dgt Soledad is supportive, however she lives 45 minutes away and works. Frank verbalized he is limited on physical support he can provide to pt as he had a stroke a couple of years ago and was on disability prior to this. Frank verbalized concern over pt using their home bathroom stating he does not believe it will be accessible with a rw. The bathroom has a step down to enter. Pt has a tub shower with sliding doors. Level of Function Prior level of function: Independent (Pt independent and driving, however she had a few memory concerns where she would write lists to remember.) Coverage Primary Insurance: Medicare Secondary Insurance: Commercial insurance (BCBS) Additional Coverage: RX (BCBS) Source of Income Source Of Income: Other fpc income PCP Marylu Ochoa DME DME at home: None Home Health Receiving home health: No Plan Inpatient setting vs Home with Assist (pending patient's cognition & progress); pt is variable assist for ADLs but at times total assist and variable assist for mobility DME: tub transfer bench, commode, manual wheelchair (potentially, if pt cannot progress to functional ambulation) Rehabilitation Plan Progress Walking with moderate assist x1 (formerly Ax2) Standing balance can be CGA for up to 10 min Pt engages in short bouts of activity with verbal cueing as well as communication At times, patient demonstrates improved alertness and participation. Patient able to ambulate x 300 feet with SEMICONDUCTOR TECHNICIAN x 1 and stairs x 4 with A x 2. Barriers/Concerns Slow progress secondary to lethargy and variable pt motivation Unable to safely work on stairs due to extreme lethargy Pt is total assist for bed exit Limited endurance for all disciplines; participation is not consistent & requires mod-max cues to initiate Motor apraxia Pt requires max verbal cues and at times physical hand over hand assist to initiate, attend, and complete ADLs Frequently scissor steps and loses balance towards R usually, requiring assist to recover. Patient demonstrated a repetitive behavior rubbing L cheek and L eye, which appeared swollen and red, and interfered with therapy at times. Limited evaluation/therapy completed given limited participation. Pt frequently keeps eyes closed throughout therapy session and does not respond to therapist. Significant attention deficits. Poor auditory comprehension from limited testing. Formal assessment has not been completed as pt demonstrates difficulty participating in structured activities. NPO w/ PEG. Frequent oral care. Limited PO trials as pt not participating or alert enough for PO trials. poor safety awareness, cognitive deficits, Plan Improve participation in bed mobility (currently dependent), gait training with hand held assist (chair follow by spouse), passive vector over treadmill, standing balance and transfer training with spouse.Considerations: pt with hx of likely seizure on rehab while ambulating. Pt to complete ADLs with min assist and verbal cues to initiate and sequence tasks correctly. Decreased endurance to be addressed through therapeutic activities. Cognitive deficts to be addressed with therapeutic activities and compensatory strategies as needed. Family training to be completed for assist with ADL/IADLs and functional transfers. Pt being seen for 60-minutes a day targeting langauge, cognition, and dysphagia. tylenol 650 Q4hrs., peg tube inplace Pt will tolerate being up for all therapies (up/down schedule) Family training Goals Speech Care Center Manager Goals Will improve communication for basic wants and needs with: Moderate assist, Progressing Weekly Goals Weekly Bed Mobility Goals: Patient will perform sit to supine with, Patient will perform supine to sit with Patient will perform sit to supine with: Moderate assistance, Not progressing Patient will perform supine to sit with: Moderate assistance, Not progressing Weekly Transfer Goals: Patient will complete sit to stand transfer with, Patient will complete stand pivot transfer with Patient will complete sit to stand transfer with: Moderate assistance, Progressing Patient will complete stand pivot transfer with: Moderate assistance, Progressing Weekly Ambulation/Stairs Goals: Patient will ambulate, Patient will ascend/ descend Patient will ambulate: 150 feet, Least assistive device, Moderate assistance, Progressing Patient will ascend/descend: 4 stairs, Moderate assistance, 1 rail, Not progressing Weekly Goals Patient Will Perform Bathing: w/ Minimum Assist, w/ Cues Patient Will Perform UE Dressing: w/ Minimum Assist, w/ Cues Patient Will Perform LE Dressing: w/ Minimum Assist, w/ Cues Patient Will Perform Grooming: w/ Minimum Assist, Standing at Sink, w/ Cueing Patient Will Perform Toileting: w/ Minimum Assist, w/ Cues Pt will complete functional tasks/activities standing with ___ for ___ minutes: Minimum assistance, 5 Pt will demonstrate simple meal prep with ___ at ___: Minimum assistance Other OT Weekly Goals: Complete family training for assist with ADL/IADLs Speech Short Term Goals Patient will follow concrete 1-part commands: 60% accuracy, Moderate cues Patient will identify object in a field of 2: 60% accuracy, Moderate cues Patient responds to yes/no questions regarding personal/ environmental information with nods, gestures, eye blinks, or pointin% accuracy, Moderate cues Will demonstrate confrontation naming with: 60% accuracy, Moderate cues Will perform automatic speech tasks with: 60% accuracy, Moderate cues Will participate in ongoing assessment of swallow bedside: Progressing Will participate in repeat instrumental swallow evaluation when clinically indicated: Progressing Nursing Short Term Goals Bladder Management: Yes Will decrease the number of bladder accidents during the day and/or night to: No accidents Patient / Caregiver will verbalize signs & symptoms of urinary tract infection and what action to do with: Maximum verbal cues Patient will follow time voiding program independently with: Maximum verbal cues Bowel Management: Yes Will decrease the number of bowel accidents during the day and/or night to: No accidents Will verbalize need to have a bowel movement daily/every other day (for constipation) with: Maximum verbal cues Medication Management: Yes Will verbalize reason for medication with: Maximum verbal / written cues Will verbalize dose and time for medication with: Maximum verbal / written cues Will verbalize side effects of medication with: Maximum verbal / written cues Skin Integrity: Yes Will verbalize optimal skin care routine with: Maximum verbal cues Pain Management: Yes Will verbalize pain level at or between ____ at rest: 0, Progressing Will verbalize pain level at or between ____ with activity: 0, Progressing Safety: Yes Will demonstrate understanding of own limitations with: Maximum verbal cues Nutrition: Yes Will demonstrate appropriate nutritional intake with: Maximum verbal cues Patient / Caregiver will be able to verbalize knowledge of proper nutrition to prevent fluid overload with: Maximum verbal cues Will verbalize knowledge of signs / symptoms of aspiration with: Maximum verbal cues Will be able to verbalize swallowing precautions / techniques with: Maximum verbal cues Functional [place] Measures Eating FIM: 1 - Total assistance, tube feeding for nutrition and/or hydration Grooming FIM: 3 - Moderate assistance, patient performs 50-74% or more of grooming/bathing/dressing/toileting tasks Bathing FIM: 1 - Total assistance, requires 2 staff to assist Dressing - Upper Body FIM: 2 - Maximal assistance, patient performs 25-49% of grooming/bathing/dressing/toileting tasks Dressing - Lower Body FIM: 1 - Total assistance, requires 2 staff to assist Toileting FIM: 1 - Total assistance, requires 2 staff to assist Bladder FIM: 1 - Total assistance, patient expends less than 25% effort ( complete % of assist, if change diapers, total assist) Bowel FIM: 1 - Total assistance, patient expends less than 25% effort (complete % of assist, if change diapers, total assist) Transfers FIM: 3 - Moderate assistance, patient performs 50-74% of transferring tasks (lifting required) Toilet Transfers FIM: (Did not observe) Shower Transfers FIM: 1 - Total assistance, patient performs less than 25% of transferring tasks Gait: 2 - Maximal assistance, patient expends 25-49% effort, requires one person assist, greater than or equal to 50-149 feet Stairs FIM: 1 - Total assistance, requires two or more people Comprehension FIM: 1 - Total assistance. Understands less than 25% of the time or does not understand simple, commonly used spoken expressions or gestures Expression FIM: 2 - Maximal prompting - Expresses directions/conversation about basic daily needs 25-49%. Expresses ONLY simple, common spoken expressions/ gestures Social Interaction FIM: 1 - Total assistance - Able to interact appropriately with staff, patient and family members <25% of the times Problem Solving FIM: 1 - Total assistance - Able to solve routine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 vestibule however pt remains at high risk for aspiration of nectar thick liquids due to moderate pharyngeal residue following swallows. 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 Pt continues to demonstrating waxing and waning alertness levels and lethargic during evaluation. Anticipate pt will have prolonged recovery of swallow function. RECOMMENDATIONS: NPO at this time with continued use of alternative form of nutrition. Excellent oral care. Ongoing dysphagia assessment and treatment. Oral Stage Summary*: Pt w/ decreased bolus control and disorganized and repetitive tongue movement. AP transfer mildly delayed likely due to weakness. Pt demonstrated early spillover into pharynx across consistencies likely due to decreased sensation caused by recent CVA. Velopharyngeal closure WFL. Did not trial chewable solids. Pharyngeal Stage Summary*: Pt demonstrates mildly delayed swallow initiation (3- 6 second delay) w/ spillage to valleculae and pyriforms w/ thin and nectar thick liquids due to BOT weakness and decreased sensation likely caused by recent CVA. Epiglottis moved posteriorly but did not invert during the swallow. Pt w/ mild vallecular and minimalpyriform residue following swallows of thin liquids and moderate vallecular residue following swallows ofnectar thick liquids. Residue likely due to weakness and decreased pharyngeal stripping wave/ BOT weakness caused by CVA. Mild laryngeal penetration w/ thin liquids and trace penetration w/ nectar thick liquids during the swallow due to decreased hyolaryngeal elevation. Laryngeal penetration of thin liquids did not appear to clear the laryngeal vestibule anticipate resulting in aspiration however not directly observed during the study. Penetration of nectar thick liquids less amount and depth and did appear to clear laryngeal vestibule however pt remains at high risk for aspiration of nectar thick liquids due to moderate pharyngeal residue following swallows. Decreased anterior movement of arytenoids resulted in decreased laryngeal vestibule closure. Decreased UES opening in width during the swallow. Plan*: Continue Treatment 2-3x/ Week, Patient Would Benefit from Further Speech Therapy Post Acute Hospitalization. Prognosis*: Fair, Good NOMS Dysphagia Rating*: 1- Severe Dysphagia Penetration Aspiration Scale*: 5 - Material enters the airway, contacts the vocal folds, and is not ejected from the airway. Rehabilitation Plan Patient will receive Physical therapy, Occupational therapy and Speech therapy each 60 minutes a day for total of 3 hours per day, 5 days a week for the duration of the rehabilitation stay within an interdisciplinary rehabilitation program with case picker/social welfare administrator, production cost estimator, neuropsychologist, rehab nursing and PM&R oversight. Rehabilitation Prognosis: Fair to Good; while the patient has some history of ~ mild dementia, suspect she would benefit from continued PT, OT, and INTERNAL CONSULTANT to progress toward discharge home with family support Medical Prognosis: Good; anticipate the patient will continue to have clinical stability for discharge home when functionally improved Tolerance for three hours of therapy a day: Fair Patient has participated well with therapies which started on 12/23/2016 in the acute care setting and is anticipated to tolerate 3 hours of therapy per day, as required. Goals/Barriers/Facilitators Family / Patient Goals: return home with family assistance Mobility Goals: Supervision to Modified Independent Level of Care. Activities of Daily Living (ADLs) Goals: [place]/Supervision to Modified Independent Level of Care. Cognition / Communication Goals: Speech therapy will evaluate and treat cognition and communication deficits and assess for safe swallow Barriers & Interventions: Caregiver Apprehension: Arrange caregiver support and discuss barriers and patient progress with caregivers when appropriate. Equipment Availability: Adaptive equipment, determine resources availability, equipment modifications, bariatric equipment. High Ord of Care: Initiate interdisciplinary rehabilitation to improve functional independence and reduce burden of care. Home Accessibility: Work with family to obtain home measurements of doorways, bathroom access, and stair set-up to plan for appropriate adaptive equipment and home modifications as necessary. Medication Education: Pharmacist and nursing staff to provide education to patient and family regarding medication side effects, special precautions, and safe administration. Wound Care Education: Nursing staff will provide education to the patient and family regarding proper wound care and monitoring for signs and symptoms of infection. Dysphagia Education: Speech Language Pathology and Nursing staff to provide patient/family with education regarding signs and symptoms of aspiration and proper care of the PEG tube (wound care, medication and tube administration). Facilitators: good family / social support, improving strength / endurance and improving medical condition Discharge Planning Expected Length of Stay 14-21 day(s) Expected Discharge Disposition Home Expected Discharge Needs: Patient would benefit from ongoing speech language pathology, physical and occupational therapy at an outpatient level of care. Patient owned a Roller Walker and Single Point Cane; however she would likely benefit from a shower chair, grab bars, and hand-held shower head for safety while completing bathing tasks. Patient will likely be a household ambulater, but may benefit from a wheelchair for community distances. Mattie Denson RN BSN I have reviewed this pre-admission screen and approve the recommendations and plans for admission. Roxy Phillip is a 66 y.o. female with PMH of dementia and TIA who presented via transfer from [facility] with large left frontal parenchymal hemorrhage found on head CT on 12/22/2016 after initially presenting to OSH with word finding difficulty, right facial droop, difficulty swallowing, and right sided weakness. She underwent a left frontal kirit hole craniotomy, hemorrhage evacuation, and EVD placement on 12/25/2016, and EVD has since been removed. No aneurysm/AVF or intracranial mass found on imaging, and history was unable to be obtained to better understand circumstances of IPH although traumatic injury is suspected. The patent has persistent deficits and goals with PT, OT, and INTERNAL CONSULTANT and complexity including hypernatremia currently being treated with free water bolus, severe dysphagia with PEG placed 01/02/2017, now requiring closer monitoring as physical requirements in rehabilitation increase and potentially impacting safe swallow and overall cognitive status, which puts the patient at risk of aspiration, pneumonia, sepsis, associated mortality/morbidity. Additionally, he will likely benefit from aggressive clinical education including management of electrolyte management, diet modification to improve compliance and reduce stroke recurrence. All of these clinical issues require daily physician oversight to reach target clinical and functional goals prior to discharge home. The patient is clinically/medically stable for admission to acute inpatient rehabilitation at this time. Treatment Plan (including disciplines, frequency and duration) We will initiate a comprehensive rehab program working on strengthening, endurance and safety with regard to transfer training, ambulation, dressing, bathing and grooming. Rehab nursing will be involved to monitor bowel and bladder function, skin integrity, administration of medications and family and patient education and therapy carryover. The patient will have intensive therapies with physical therapy 1 hour(s), occupational therapy 1 hour(s), and speech language pathology 1 hour(s) for a minimum of 3 hours a day 5 days a week for the duration of the acute inpatient rehabilitation stay. Kevin Russ MD in this encounter Plan of Treatment Name Priority Associated Diagnoses Order Schedule ECG 12-LEAD Routine ONE TIME for 1 Occurrences starting 01/13/2017 until 01/13/2017 as of this encounter Results * POC GLUCOSE (01/30/2017 9:08 AM) Component Value Ref Range Glucose, POC 113 (H) 70 - 100 MG/DL Specimen Performing Laboratory [facility] [address] [place] [address] * BASIC METABOLIC PANEL (01/30/2017 7:25 AM) Component Value Ref Range Sodium 139 137 [...] Pharmacist for questions. Specimen Performing Laboratory Blood [facility] [address] [place], [place] [id number] * CBC (01/30/2017 7:25 AM) Component Value Ref Range White Blood Cells [...] - 11 FL Specimen Performing Laboratory Blood [facility] [address] [place] [address] [id number] * POC GLUCOSE (01/30/2017 2:55 AM) Component Value Ref Range Glucose, POC 87 70 - 100 MG/DL Specimen Performing Laboratory [facility] [address] [place] [address] 19456 * POC GLUCOSE (01/29/2017 9:52 PM) Component Value Ref Range Glucose, POC 111 (H) 70 - 100 MG/DL Specimen Performing Laboratory [facility] [address] [place] [address] 68417 * POC GLUCOSE (01/29/2017 5:22 PM) Component Value Ref Range Glucose, POC 88 70 - 100 MG/DL Specimen Performing Laboratory [facility] [address] [place] [address] 70294 * POC GLUCOSE (01/29/2017 12:35 PM) Component Value Ref Range Glucose, POC 131 (H) 70 - 100 MG/DL Specimen Performing Laboratory [facility] [address] [place] [address] 66010 * POC GLUCOSE (01/29/2017 9:27 AM) Component Value Ref Range Glucose, POC 106 (H) 70 - 100 MG/DL Specimen Performing Laboratory [facility] [address] [place] [address] 24847 * POC GLUCOSE (01/29/2017 2:27 AM) Component Value Ref Range Glucose, POC 107 (H) 70 - 100 MG/DL Specimen Performing Laboratory [facility] [address] [place] [address] 32803 * POC GLUCOSE (01/28/2017 10:02 PM) Component Value Ref Range Glucose, POC 137 (H) 70 - 100 MG/DL Specimen Performing Laboratory [facility] [address] [place], [place] [id number] * POC GLUCOSE (01/28/2017 5:47 PM) Component Value Ref Range Glucose, POC 88 70 - 100 MG/DL Specimen Performing Laboratory [facility] [address] [place], [place] [id number] * POC GLUCOSE (01/28/2017 11:51 AM) Component Value Ref Range Glucose, POC 155 (H) 70 - 100 MG/DL Specimen Performing Laboratory [facility] [address] [place], [place] [id number] * BASIC METABOLIC PANEL (01/28/2017 7:17 AM) Component Value Ref Range Sodium 139 137 - 147 MMOL/L Potassium 4.0 3.5 - 5.1 MMOL/L Chloride 107 98 - 110 MMOL/L CO2 25 21 - 30 MMOL/L Anion Gap 7 3 - 12 Glucose 107 (H) 70 - 100 MG/DL Blood Urea Nitrogen 19 7 - 25 MG/DL Creatinine 0.56 0.4 - 1.00 MG/DL Calcium 9.3 8.5 [...] Pharmacist for questions. Specimen Performing Laboratory Blood [facility] [address] [place] [address] 08265 * CBC (01/28/2017 7:17 AM) Component Value Ref Range White Blood Cells 3.5 (L) 4.5 - 11.0 K/UL RBC 3.35 (L) 4.0 - 5.0 M/UL Hemoglobin 10.8 (L) 12.0 - 15.0 GM/DL Hematocrit 30.9 (L) 36 - 45 % MCV 92.2 80 - 100 FL MCH 32.3 26 - 34 PG MCHC 35.0 32.0 - 36.0 G/DL RDW 17.4 (H) 11 - 15 % Platelet Count 181 150 - 400 K/UL MPV 8.1 7 - 11 FL Specimen Performing Laboratory Blood [facility] [address] [place] [address] 04954 * POC GLUCOSE (01/28/2017 3:18 AM) Component Value Ref Range Glucose, POC 95 70 - 100 MG/DL Specimen Performing Laboratory [facility] [address] [place] [address] 18694 * POC GLUCOSE (01/27/2017 9:34 PM) Component Value Ref Range Glucose, POC 134 (H) 70 - 100 MG/DL Specimen Performing Laboratory [facility] [address] [place] [address] 51673 * POC GLUCOSE (01/27/2017 12:09 PM) Component Value Ref Range Glucose, POC 130 (H) 70 - 100 MG/DL Specimen Performing Laboratory [facility] [address] [place] [address] 36200 * POC GLUCOSE (01/27/2017 7:53 AM) Component Value Ref Range Glucose, POC 103 (H) 70 - 100 MG/DL Specimen Performing Laboratory [facility] [address] [place] [address] 31354 * POC GLUCOSE (01/26/2017 5:35 PM) Component Value Ref Range Glucose, POC 99 70 - 100 MG/DL Specimen Performing Laboratory [facility] [address] [place] [address] 52724 * POC GLUCOSE (01/26/2017 5:12 PM) Component Value Ref Range Glucose, POC 93 70 - 100 MG/DL Specimen Performing Laboratory [facility] [address] [place] [address] 83080 * POC GLUCOSE (01/26/2017 12:31 PM) Component Value Ref Range Glucose, POC 114 (H) 70 - 100 MG/DL Specimen Performing Laboratory [facility] [address] [place] [address] 06218 * POC GLUCOSE (01/26/2017 12:02 PM) Component Value Ref Range Glucose, POC 133 (H) 70 - 100 MG/DL Specimen Performing Laboratory [facility] [address] [place] [address] 28028 * POC GLUCOSE (01/26/2017 8:02 AM) Component Value Ref Range Glucose, POC 109 (H) 70 - 100 MG/DL Specimen Performing Laboratory [facility] [address] [place] [address] 35704 * BASIC METABOLIC PANEL (01/26/2017 8:00 AM) Component Value Ref Range Sodium 139 137 - 147 MMOL/L Potassium 4.2 3.5 - 5.1 MMOL/L Chloride 107 98 - 110 MMOL/L CO2 27 21 - 30 MMOL/L Anion Gap 5 3 - 12 Glucose 107 (H) 70 - 100 MG/DL Blood Urea Nitrogen 15 7 - 25 MG/DL Creatinine 0.61 0.4 - 1.00 MG/DL Calcium 9.3 8.5 [...] questions. Specimen Performing Laboratory [facility] [address] [place] [address] 78573 * CBC (01/26/2017 8:00 AM) Component Value Ref Range White Blood Cells 3.6 (L) 4.5 - 11.0 K/UL RBC 3.53 (L) 4.0 - 5.0 M/UL Hemoglobin 10.9 (L) 12.0 - 15.0 GM/DL Hematocrit 32.8 (L) 36 - 45 % MCV 92.9 80 - 100 FL MCH 31.0 26 - 34 PG MCHC 33.3 32.0 - 36.0 G/DL RDW 17.2 (H) 11 - 15 % Platelet Count 190 150 - 400 K/UL MPV 7.9 7 - 11 FL Specimen Performing Laboratory Blood [facility] [address] [place] [address] 73202 * POC GLUCOSE (01/26/2017 2:57 AM) Component Value Ref Range Glucose, POC 100 70 - 100 MG/DL Specimen Performing Laboratory [facility] [address] [place] [address] 12581 * POC GLUCOSE (01/25/2017 10:26 PM) Component Value Ref Range Glucose, POC 113 (H) 70 - 100 MG/DL Specimen Performing Laboratory [facility] [address] [place] [address] 13715 * POC GLUCOSE (01/25/2017 5:24 PM) Component Value Ref Range Glucose, POC 78 70 - 100 MG/DL Specimen Performing Laboratory [facility] [address] [place] [address] 16274 * POC GLUCOSE (01/25/2017 12:17 PM) Component Value Ref Range Glucose, POC 132 (H) 70 - 100 MG/DL Specimen Performing Laboratory [facility] [address] [place] [address] 14051 * POC GLUCOSE (01/25/2017 6:54 AM) Component Value Ref Range Glucose, POC 94 70 - 100 MG/DL Specimen Performing Laboratory [facility] [address] [place] [address] 57737 * POC GLUCOSE (01/25/2017 2:41 AM) Component Value Ref Range Glucose, POC 81 70 - 100 MG/DL Specimen Performing Laboratory [facility] [address] [place] [address] 99819 * POC GLUCOSE (01/24/2017 9:38 PM) Component Value Ref Range Glucose, POC 172 (H) 70 - 100 MG/DL Specimen Performing Laboratory [facility] [address] [place] [address] 09256 * POC GLUCOSE (01/24/2017 5:48 PM) Component Value Ref Range Glucose, POC 90 70 - 100 MG/DL Specimen Performing Laboratory [facility] [address] [place] [address] 71894 * POC GLUCOSE (01/24/2017 12:24 PM) Component Value Ref Range Glucose, POC 125 (H) 70 - 100 MG/DL Specimen Performing Laboratory [facility] [address] [place] [address] 44763 * POC GLUCOSE (01/24/2017 6:45 AM) Component Value Ref Range Glucose, POC 106 (H) 70 - 100 MG/DL Specimen Performing Laboratory [facility] [address] [place] [address] 92017 * POC GLUCOSE (01/24/2017 3:01 AM) Component Value Ref Range Glucose, POC 87 70 - 100 MG/DL Specimen Performing Laboratory [facility] [address] [place] [address] 53133 * POC GLUCOSE (01/23/2017 9:24 PM) Component Value Ref Range Glucose, POC 189 (H) 70 - 100 MG/DL Specimen Performing Laboratory [facility] [address] [place] [address] 48202 * POC GLUCOSE (01/23/2017 6:16 PM) Component Value Ref Range Glucose, POC 86 70 - 100 MG/DL Specimen Performing Laboratory [facility] [address] [place] [address] 99327 * POC GLUCOSE (01/23/2017 12:41 PM) Component Value Ref Range Glucose, POC 101 (H) 70 - 100 MG/DL Specimen Performing Laboratory [facility] [address] [place] [address] 90611 * POC GLUCOSE (01/23/2017 8:59 AM) Component Value Ref Range Glucose, POC 118 (H) 70 - 100 MG/DL Specimen Performing Laboratory [facility] [address] [place] [address] 10747 * BASIC METABOLIC PANEL (01/23/2017 7:30 AM) Component Value Ref Range Sodium 138 137 - 147 MMOL/L Potassium 3.9 3.5 - 5.1 MMOL/L Chloride 104 98 - 110 MMOL/L CO2 26 21 - 30 MMOL/L Anion Gap 8 3 - 12 Glucose 95 70 - 100 MG/DL Blood Urea Nitrogen 17 7 - 25 MG/DL Creatinine 0.57 0.4 - 1.00 MG/DL Calcium 9.1 8.5 - 10.6 MG/DL eGFR Non >60 [...] Pharmacist for questions. Specimen Performing Laboratory Blood [facility] [address] [place] [address], [place] [address] * CBC (01/23/2017 7:30 AM) Component Value Ref Range White Blood Cells 3.5 (L) 4.5 - 11.0 K/UL RBC 3.59 (L) 4.0 - 5.0 M/UL Hemoglobin 11.1 (L) 12.0 - 15.0 GM/DL Hematocrit 33.4 (L) 36 - 45 % MCV 92.9 80 - 100 FL MCH 30.9 26 - 34 PG MCHC 33.3 32.0 - 36.0 G/DL RDW 16.9 (H) 11 - 15 % Platelet Count 177 150 - 400 K/UL MPV 8.0 7 - 11 FL Specimen Performing Laboratory Blood [facility] [address] [place] [address] 13291 * KEPPRA (LEVETIRACETAM) (01/23/2017 7:30 AM) Component Value Ref Range Keppra (Levetiracetam) 8.1 (L) Comment: Reference range: 12.0 to 46.0 Unit: mcg/mL ADDITIONAL INFORMATION This test was developed and its performance characteristics determined by [facility] in a manner consistent with CLIA requirements. This test has not been cleared or approved by the U.S. Food and Drug Administration. [facility], [address] [place] [address] Specimen Performing Laboratory [facility] * POC GLUCOSE (01/23/2017 7:04 AM) Component Value Ref Range Glucose, POC 109 (H) 70 - 100 MG/DL Specimen Performing Laboratory [facility] [address] [place] [address] 90040 * POC GLUCOSE (01/22/2017 9:13 PM) Component Value Ref Range Glucose, POC 165 (H) 70 - 100 MG/DL Specimen Performing Laboratory [facility] [address] [place] [address] 83750 * POC GLUCOSE (01/22/2017 6:01 PM) Component Value Ref Range Glucose, POC 91 70 - 100 MG/DL Specimen Performing Laboratory [facility] [address] [place] [address] 91915 * POC GLUCOSE (01/22/2017 12:47 PM) Component Value Ref Range Glucose, POC 87 70 - 100 MG/DL Specimen Performing Laboratory [facility] [address] [place] [address] 26688 * POC GLUCOSE (01/22/2017 8:36 AM) Component Value Ref Range Glucose, POC 99 70 - 100 MG/DL Specimen Performing Laboratory [facility] [address] [place] [address] 28969 * POC GLUCOSE (01/22/2017 3:01 AM) Component Value Ref Range Glucose, POC 90 70 - 100 MG/DL Specimen Performing Laboratory [facility] [address] [place] [address] 86070 * POC GLUCOSE (01/21/2017 8:56 PM) Component Value Ref Range Glucose, POC 153 (H) 70 - 100 MG/DL Specimen Performing Laboratory [facility] [address] [place] [address] 04594 * POC GLUCOSE (01/21/2017 5:00 PM) Component Value Ref Range Glucose, POC 120 (H) 70 - 100 MG/DL Specimen Performing Laboratory [facility] [address] [place] [address] 38889 * POC GLUCOSE (01/21/2017 12:59 PM) Component Value Ref Range Glucose, POC 116 (H) 70 - 100 MG/DL Specimen Performing Laboratory [facility] [address] [place] [address] 26487 * POC GLUCOSE (01/21/2017 8:50 AM) Component Value Ref Range Glucose, POC 94 70 - 100 MG/DL Specimen Performing Laboratory [facility] [address] [place], [place] [id number] * BASIC METABOLIC PANEL (01/21/2017 7:00 AM) Component Value Ref Range Sodium 138 137 - 147 MMOL/L Potassium 3.8 3.5 - 5.1 MMOL/L Chloride 103 98 - 110 MMOL/L CO2 28 21 - 30 MMOL/L Anion Gap 7 3 - 12 Glucose 88 70 - 100 MG/DL Blood Urea Nitrogen 14 7 - 25 MG/DL Creatinine 0.63 0.4 - 1.00 MG/DL Calcium 9.0 8.5 - 10.6 MG/DL eGFR Non >60 [...] Pharmacist for questions. Specimen Performing Laboratory [facility] [address] [place] [address] 93445 * CBC (01/21/2017 7:00 AM) Component Value Ref Range White Blood Cells 3.5 (L) 4.5 - 11.0 K/UL RBC 3.59 (L) 4.0 - 5.0 M/UL Hemoglobin 11.1 (L) 12.0 - 15.0 GM/DL Hematocrit 33.4 (L) 36 - 45 % MCV 93.1 80 - 100 FL MCH 30.9 26 - 34 PG MCHC 33.2 32.0 - 36.0 G/DL RDW 17.4 (H) 11 - 15 % Platelet Count 166 150 - 400 K/UL MPV 8.2 7 - 11 FL Specimen Performing Laboratory [facility] [address] [place] [address] 08372 * POC GLUCOSE (01/21/2017 6:51 AM) Component Value Ref Range Glucose, POC 87 70 - 100 MG/DL Specimen Performing Laboratory [facility] [address] [place] [address] 03264 * POC GLUCOSE (01/21/2017 3:17 AM) Component Value Ref Range Glucose, POC 90 70 - 100 MG/DL Specimen Performing Laboratory [facility] [address] [place] [place] [address] * POC GLUCOSE (01/20/2017 5:30 PM) Component Value Ref Range Glucose, POC 73 70 - 100 MG/DL Specimen Performing Laboratory [facility] [address] [place] [address] 34972 * POC GLUCOSE (01/20/2017 12:23 PM) Component Value Ref Range Glucose, POC 125 (H) 70 - 100 MG/DL Specimen Performing Laboratory [facility] [address] [place] [address] 86889 * POC GLUCOSE (01/20/2017 8:06 AM) Component Value Ref Range Glucose, POC 96 70 - 100 MG/DL Specimen Performing Laboratory [facility] [address] [place] [address] 90404 * POC GLUCOSE (01/20/2017 3:13 AM) Component Value Ref Range Glucose, POC 85 70 - 100 MG/DL Specimen Performing Laboratory [facility] [address] [place] [address] 35998 * POC GLUCOSE (01/19/2017 8:39 PM) Component Value Ref Range Glucose, POC 121 (H) 70 - 100 MG/DL Specimen Performing Laboratory [facility] [address] [place] [address] 96552 * POC GLUCOSE (01/19/2017 5:02 PM) Component Value Ref Range Glucose, POC 101 (H) 70 - 100 MG/DL Specimen Performing Laboratory [facility] [address] [place] [address] 07697 * POC GLUCOSE (01/19/2017 12:03 PM) Component Value Ref Range Glucose, POC 198 (H) 70 - 100 MG/DL Specimen Performing Laboratory [facility] [address] [place] [address] 65220 * POC GLUCOSE (01/19/2017 9:08 AM) Component Value Ref Range Glucose, POC 90 70 - 100 MG/DL Specimen Performing Laboratory [facility] [address] [place] [address] 52201 * BASIC METABOLIC PANEL (01/19/2017 7:59 AM) Component Value Ref Range Sodium 138 137 - 147 MMOL/L Potassium 3.9 3.5 - 5.1 MMOL/L Chloride 103 98 - 110 MMOL/L CO2 27 21 - 30 MMOL/L Anion Gap 8 3 - 12 Glucose 101 (H) 70 - 100 MG/DL Blood Urea Nitrogen 16 7 - 25 MG/DL Creatinine 0.67 0.4 - 1.00 MG/DL Calcium 9.1 8.5 - 10.6 MG/DL eGFR Non >60 [...] Pharmacist for questions. Specimen Performing Laboratory Blood [facility] [address] [place] [address] 20897 * CBC (01/19/2017 7:59 AM) Component Value Ref Range White Blood Cells 4.0 (L) 4.5 - 11.0 K/UL RBC 3.52 (L) 4.0 - 5.0 M/UL Hemoglobin 11.1 (L) 12.0 - 15.0 GM/DL Hematocrit 32.2 (L) 36 - 45 % MCV 91.5 80 - 100 FL MCH 31.5 26 - 34 PG MCHC 34.5 32.0 - 36.0 G/DL RDW 17.0 (H) 11 - 15 % Platelet Count 156 150 - 400 K/UL MPV 8.7 7 - 11 FL Specimen Performing Laboratory Blood [facility] [address] [place] [address] 81943 * POC GLUCOSE (01/19/2017 6:38 AM) Component Value Ref Range Glucose, POC 106 (H) 70 - 100 MG/DL Specimen Performing Laboratory [facility] [address] [place] [address] 44432 * POC GLUCOSE (01/19/2017 3:25 AM) Component Value Ref Range Glucose, POC 81 70 - 100 MG/DL Specimen Performing Laboratory [address] [address] * POC GLUCOSE (01/18/2017 9:08 PM) Component Value Ref Range Glucose, POC 186 (H) 70 - 100 MG/DL Specimen Performing Laboratory [address] 70200 * POC GLUCOSE (01/18/2017 5:51 PM) Component Value Ref Range Glucose, POC 90 70 - 100 MG/DL Specimen Performing Laboratory [address] 99383 * POC GLUCOSE (01/18/2017 12:25 PM) Component Value Ref Range Glucose, POC 144 (H) 70 - 100 MG/DL Specimen Performing Laboratory [address] 400[address] * POC GLUCOSE (01/18/2017 12:00 PM) Component Value Ref Range Glucose, POC 106 (H) 70 - 100 MG/DL Specimen Performing Laboratory [facility] [address] [place] [address] 43901 * POC GLUCOSE (01/18/2017 6:42 AM) Component Value Ref Range Glucose, POC 111 (H) 70 - 100 MG/DL Specimen Performing Laboratory [address] 25204 * POC GLUCOSE (01/18/2017 3:23 AM) Component Value Ref Range Glucose, POC 82 70 - 100 MG/DL Specimen Performing Laboratory [facility] [address] [place] [address] 77255 * POC GLUCOSE (01/17/2017 9:33 PM) Component Value Ref Range Glucose, POC 198 (H) 70 - 100 MG/DL Specimen Performing Laboratory [facility] [address] [place] [address] 47477 * POC GLUCOSE (01/17/2017 4:57 PM) Component Value Ref Range Glucose, POC 110 (H) 70 - 100 MG/DL Specimen Performing Laboratory [facility] [address] [place] [address] 18312 * POC GLUCOSE (01/17/2017 12:38 PM) Component Value Ref Range Glucose, POC 110 (H) 70 - 100 MG/DL Specimen Performing Laboratory [facility] [address] [place] [address] 65675 * POC GLUCOSE (01/17/2017 12:09 PM) Component Value Ref Range Glucose, POC 176 (H) 70 - 100 MG/DL Specimen Performing Laboratory [address] [address] * POC GLUCOSE (01/17/2017 6:33 AM) Component Value Ref Range Glucose, POC 99 70 - 100 MG/DL Specimen Performing Laboratory [facility] [address] [place] [address] 86540 * POC GLUCOSE (01/17/2017 3:17 AM) Component Value Ref Range Glucose, POC 90 70 - 100 MG/DL Specimen Performing Laboratory [facility] [address] [place] [address] 47235 * POC GLUCOSE (01/16/2017 9:24 PM) Component Value Ref Range Glucose, POC 103 (H) 70 - 100 MG/DL Specimen Performing Laboratory [facility] [address] [place] [address] 67648 * POC GLUCOSE (01/16/2017 4:49 PM) Component Value Ref Range Glucose, POC 88 70 - 100 MG/DL Specimen Performing Laboratory [facility] [address] [place] [address] 83492 * POC GLUCOSE (01/16/2017 12:00 PM) Component Value Ref Range Glucose, POC 120 (H) 70 - 100 MG/DL Specimen Performing Laboratory [facility] [address] [place] [address] 34223 * BASIC METABOLIC PANEL (01/16/2017 8:12 AM) Component Value Ref Range Sodium 137 137 - 147 MMOL/L Potassium 3.9 3.5 - 5.1 MMOL/L Chloride 102 98 - 110 MMOL/L CO2 28 21 - 30 MMOL/L Anion Gap 7 3 - 12 Glucose 202 (H) 70 - 100 MG/DL Blood Urea Nitrogen 15 7 - 25 MG/DL Creatinine 0.61 0.4 - 1.00 MG/DL Calcium 8.8 8.5 - 10.6 MG/DL eGFR Non >60 [...] questions. Specimen Performing Laboratory [facility] [address] [place], [place] [id number] * CBC (01/16/2017 8:12 AM) Component Value Ref Range White Blood Cells 4.7 4.5 - 11.0 K/UL RBC 3.32 (L) 4.0 - 5.0 M/UL Hemoglobin 10.1 (L) 12.0 - 15.0 GM/DL Hematocrit 29.8 (L) 36 - 45 % MCV 89.8 80 - 100 FL MCH 30.6 26 - 34 PG MCHC 34.0 32.0 - 36.0 G/DL RDW 16.7 (H) 11 - 15 % Platelet Count 139 (L) 150 - 400 K/UL MPV 9.5 7 - 11 FL Specimen Performing Laboratory [facility] [address] [place] [address] 07170 * POC GLUCOSE (01/16/2017 3:12 AM) Component Value Ref Range Glucose, POC 104 (H) 70 - 100 MG/DL Specimen Performing Laboratory [facility] [address] [place] [address] 65298 * POC GLUCOSE (01/15/2017 9:21 PM) Component Value Ref Range Glucose, POC 131 (H) 70 - 100 MG/DL Specimen Performing Laboratory [facility] [address] [place] [address] 57603 * POC GLUCOSE (01/15/2017 5:24 PM) Component Value Ref Range Glucose, POC 93 70 - 100 MG/DL Specimen Performing Laboratory [facility] [address] [place] [address] 51942 * POC GLUCOSE (01/15/2017 12:01 PM) Component Value Ref Range Glucose, POC 179 (H) 70 - 100 MG/DL Specimen Performing Laboratory [facility] [address] [place] [address] 03052 * POC GLUCOSE (01/15/2017 7:01 AM) Component Value Ref Range Glucose, POC 113 (H) 70 - 100 MG/DL Specimen Performing Laboratory [facility] [address] [place] [address] 23703 * POC GLUCOSE (01/15/2017 4:00 AM) Component Value Ref Range Glucose, POC 93 70 - 100 MG/DL Specimen Performing Laboratory [facility] [address] [place] [address] 99660 * POC GLUCOSE (01/14/2017 9:24 PM) Component Value Ref Range Glucose, POC 140 (H) 70 - 100 MG/DL Specimen Performing Laboratory [facility] [address] [place] [address] 10869 * POC GLUCOSE (01/14/2017 5:51 PM) Component Value Ref Range Glucose, POC 153 (H) 70 - 100 MG/DL Specimen Performing Laboratory [facility] [address] [place] [address] 53743 * POC GLUCOSE (01/14/2017 12:39 PM) Component Value Ref Range Glucose, POC 253 (H) 70 - 100 MG/DL Specimen Performing Laboratory [facility] [address] [place] [address] 9[address] * CT HEAD WO CONTRAST (01/14/2017 11:36 AM) Specimen Performing Laboratory RAD RESULTS Impressions 1. Slow continued expected [...] questions. Specimen Performing Laboratory [facility] [address] [place] [address] * CBC (01/14/2017 11:05 AM) Component Value Ref Range White Blood Cells 5.2 4.5 - 11.0 K/UL RBC 3.79 (L) 4.0 - 5.0 M/UL Hemoglobin 11.6 (L) 12.0 - 15.0 GM/DL Hematocrit 34.9 (L) 36 - 45 % MCV 92.1 80 - 100 FL MCH 30.5 26 - 34 PG MCHC 33.1 32.0 - 36.0 G/DL RDW 17.0 (H) 11 - 15 % Platelet Count 171 150 - 400 K/UL MPV 9.3 7 - 11 FL Specimen Performing Laboratory [facility] [address] [place], [place] [id number] * POC GLUCOSE (01/14/2017 10:43 AM) Component Value Ref Range Glucose, POC 239 (H) 70 - 100 MG/DL Specimen Performing Laboratory [facility] [address] [place], [place] [id number] * BASIC METABOLIC PANEL (01/14/2017 7:09 AM) Component Value Ref Range Sodium 138 137 - 147 MMOL/L Potassium 4.4 3.5 - 5.1 MMOL/L Chloride 106 98 - 110 MMOL/L CO2 22 21 - 30 MMOL/L Anion Gap 10 3 - 12 Glucose 123 (H) 70 - 100 MG/DL Blood Urea Nitrogen 23 7 - 25 MG/DL Creatinine 0.67 0.4 - 1.00 MG/DL Calcium 9.2 8.5 - 10.6 MG/DL eGFR Non >60 [...] Pharmacist for questions. Specimen Performing Laboratory Blood [facility] [address] [place] [address] 03184 * CBC (01/14/2017 7:09 AM) Component Value Ref Range White Blood Cells 4.9 4.5 - 11.0 K/UL RBC 3.60 (L) 4.0 - 5.0 M/UL Hemoglobin 11.1 (L) 12.0 - 15.0 GM/DL Hematocrit 32.9 (L) 36 - 45 % MCV 91.3 80 - 100 FL MCH 30.7 26 - 34 PG MCHC 33.6 32.0 - 36.0 G/DL RDW 16.6 (H) 11 - 15 % Platelet Count 142 (L) 150 - 400 K/UL MPV 9.1 7 - 11 FL Specimen Performing Laboratory Blood [facility] [address] [place] [address] 66915 * POC GLUCOSE (01/14/2017 6:37 AM) Component Value Ref Range Glucose, POC 132 (H) 70 - 100 MG/DL Specimen Performing Laboratory [facility] [address] [place] [address] 43194 * POC GLUCOSE (01/14/2017 3:27 AM) Component Value Ref Range Glucose, POC 126 (H) 70 - 100 MG/DL Specimen Performing Laboratory [facility] [address] [place] [address] 11817 * POC GLUCOSE (01/13/2017 9:41 PM) Component Value Ref Range Glucose, POC 217 (H) 70 - 100 MG/DL Specimen Performing Laboratory [facility] [address] [place] [address] 70900 * POC GLUCOSE (01/13/2017 3:34 PM) Component Value Ref Range Glucose, POC 170 (H) 70 - 100 MG/DL Specimen Performing Laboratory [facility] [address] [place] [address] 96901 * POC GLUCOSE (01/13/2017 2:54 AM) Component Value Ref Range Glucose, POC 106 (H) 70 - 100 MG/DL Specimen Performing Laboratory [facility] [address] [place] [address] 96843 * POC GLUCOSE (01/12/2017 9:24 PM) Component Value Ref Range Glucose, POC 165 (H) 70 - 100 MG/DL Specimen Performing Laboratory [facility] [address] [place] [address] 29006 * POC GLUCOSE (01/12/2017 4:53 PM) Component Value Ref Range Glucose, POC 161 (H) 70 - 100 MG/DL Specimen Performing Laboratory [facility] [address] [place] [address] 90336 * POC GLUCOSE (01/12/2017 11:54 AM) Component Value Ref Range Glucose, POC 189 (H) 70 - 100 MG/DL Specimen Performing Laboratory [facility] [address] [place] [address] 59438 * BASIC METABOLIC PANEL (01/12/2017 7:03 AM) Component Value Ref Range Sodium 138 137 - 147 MMOL/L Potassium 3.9 3.5 - 5.1 MMOL/L Chloride 105 98 - 110 MMOL/L CO2 26 21 - 30 MMOL/L Anion Gap 7 3 - 12 Glucose 146 (H) 70 - 100 MG/DL Blood Urea Nitrogen 19 7 - 25 MG/DL Creatinine 0.69 0.4 - 1.00 MG/DL Calcium 9.3 8.5 [...] questions. Specimen Performing Laboratory [facility] [address] [place] [address] 97701 * CBC (01/12/2017 7:03 AM) Component Value Ref Range White Blood Cells 7.3 4.5 - 11.0 K/UL RBC 3.65 (L) 4.0 - 5.0 M/UL Hemoglobin 11.3 (L) 12.0 - 15.0 GM/DL Hematocrit 32.9 (L) 36 - 45 % MCV 90.2 80 - 100 FL MCH 31.1 26 - 34 PG MCHC 34.4 32.0 - 36.0 G/DL RDW 15.7 (H) 11 - 15 % Platelet Count 170 150 - 400 K/UL MPV 9.7 7 - 11 FL Specimen Performing Laboratory Blood [facility] [address] [place] [address] 26343 * POC GLUCOSE (01/12/2017 6:42 AM) Component Value Ref Range Glucose, POC 142 (H) 70 - 100 MG/DL Specimen Performing Laboratory [facility] [address] [place] [address] 92626 * POC GLUCOSE (01/12/2017 4:11 AM) Component Value Ref Range Glucose, POC 153 (H) 70 - 100 MG/DL Specimen Performing Laboratory [facility] [address] [place] [address] 98309 * POC GLUCOSE (01/11/2017 8:56 PM) Component Value Ref Range Glucose, POC 171 (H) 70 - 100 MG/DL Specimen Performing Laboratory [facility] [address] [place] [address] 84676 * POC GLUCOSE (01/11/2017 6:06 PM) Component Value Ref Range Glucose, POC 162 (H) 70 - 100 MG/DL Specimen Performing Laboratory [facility] [address] [place] [address] 27080 * POC GLUCOSE (01/11/2017 11:59 AM) Component Value Ref Range Glucose, POC 176 (H) 70 - 100 MG/DL Specimen Performing Laboratory [facility] [address] [place] [address] 71828 * BASIC METABOLIC PANEL (01/11/2017 7:50 AM) Component Value Ref Range Sodium 141 137 - 147 MMOL/L Potassium 4.2 3.5 - 5.1 MMOL/L Chloride 108 98 - 110 MMOL/L CO2 25 21 - 30 MMOL/L Anion Gap 8 3 - 12 Glucose 165 (H) 70 - 100 MG/DL Blood Urea Nitrogen 19 7 - 25 MG/DL Creatinine 0.77 0.4 - 1.00 MG/DL Calcium 9.2 8.5 - 10.6 MG/DL eGFR Non >60 [...] Pharmacist for questions. Specimen Performing Laboratory Blood [facility] [address] [place] [address] * CBC (01/11/2017 7:50 AM) Component Value Ref Range White Blood Cells 7.6 4.5 - 11.0 K/UL RBC 3.41 (L) 4.0 - 5.0 M/UL Hemoglobin 10.5 (L) 12.0 - 15.0 GM/DL Hematocrit 30.9 (L) 36 - 45 % MCV 90.7 80 - 100 FL MCH 30.7 26 - 34 PG MCHC 33.9 32.0 - 36.0 G/DL RDW 16.3 (H) 11 - 15 % Platelet Count 211 150 - 400 K/UL MPV 9.3 7 - 11 FL Specimen Performing Laboratory Blood [facility] [address] [place] [address] * POC GLUCOSE (01/11/2017 6:48 AM) Component Value Ref Range Glucose, POC 152 (H) 70 - 100 MG/DL Specimen Performing Laboratory [facility] [address] [place], [place] [id number] * POC GLUCOSE (01/10/2017 9:27 PM) Component Value Ref Range Glucose, POC 145 (H) 70 - 100 MG/DL Specimen Performing Laboratory [facility] [address] [place], [place] [id number] * POC GLUCOSE (01/10/2017 4:54 PM) Component Value Ref Range Glucose, POC 174 (H) 70 - 100 MG/DL Specimen Performing Laboratory [facility] [address] [place], [place] [id number] * POC GLUCOSE (01/10/2017 12:20 PM) Component Value Ref Range Glucose, POC 186 (H) 70 - 100 MG/DL Specimen Performing Laboratory [facility] [address] [place] [address] * BASIC METABOLIC PANEL (01/10/2017 8:04 AM) Component Value Ref Range Sodium 142 137 - 147 MMOL/L Potassium 3.9 3.5 - 5.1 MMOL/L Chloride 108 98 - 110 MMOL/L CO2 27 21 - 30 MMOL/L Anion Gap 7 3 - 12 Glucose 152 (H) 70 - 100 MG/DL Blood Urea Nitrogen 20 7 - 25 MG/DL Creatinine 0.71 0.4 - 1.00 MG/DL Calcium 9.2 8.5 - 10.6 MG/DL eGFR Non >60 [...] Pharmacist for questions. Specimen Performing Laboratory Blood [facility] [address] [place] [address] 76458 * CBC (01/10/2017 8:04 AM) Component Value Ref Range White Blood Cells 8.4 4.5 - 11.0 K/UL RBC 3.43 (L) 4.0 - 5.0 M/UL Hemoglobin 10.5 (L) 12.0 - 15.0 GM/DL Hematocrit 31.0 (L) 36 - 45 % MCV 90.5 80 - 100 FL MCH 30.7 26 - 34 PG MCHC 34.0 32.0 - 36.0 G/DL RDW 15.4 (H) 11 - 15 % Platelet Count 224 150 - 400 K/UL MPV 9.0 7 - 11 FL Specimen Performing Laboratory Blood [facility] [address] [place] [address] 77167 * POC GLUCOSE (01/10/2017 7:02 AM) Component Value Ref Range Glucose, POC 170 (H) 70 - 100 MG/DL Specimen Performing Laboratory [facility] [address] [place] [address] 67337 * POC GLUCOSE (01/10/2017 3:23 AM) Component Value Ref Range Glucose, POC 130 (H) 70 - 100 MG/DL Specimen Performing Laboratory [facility] [address] [place] [address] 95196 * POC GLUCOSE (01/09/2017 9:08 PM) Component Value Ref Range Glucose, POC 151 (H) 70 - 100 MG/DL Specimen Performing Laboratory [facility] [address] [place] [address] 20962 * POC GLUCOSE (01/09/2017 5:08 PM) Component Value Ref Range Glucose, POC 134 (H) 70 - 100 MG/DL Specimen Performing Laboratory [facility] [address] [place] [address] 66973 * POC GLUCOSE (01/09/2017 12:07 PM) Component Value Ref Range Glucose, POC 223 (H) 70 - 100 MG/DL Specimen Performing Laboratory [facility] [address] [place] [address] 52711 * POC GLUCOSE (01/09/2017 7:26 AM) Component Value Ref Range Glucose, POC 123 (H) 70 - 100 MG/DL Specimen Performing Laboratory [facility] [address] [place] [address] 53441 * BASIC METABOLIC PANEL (01/09/2017 7:26 AM) Component Value Ref Range Sodium 146 137 - 147 MMOL/L Potassium 4.0 3.5 - 5.1 MMOL/L Chloride 111 (H) 98 - 110 MMOL/L CO2 28 21 - 30 MMOL/L Anion Gap 7 3 - 12 Glucose 127 (H) 70 - 100 MG/DL Blood Urea Nitrogen 24 7 - 25 MG/DL Creatinine 0.64 0.4 - 1.00 MG/DL Calcium 9.2 8.5 - 10.6 MG/DL eGFR Non >60 [...] questions. Specimen Performing Laboratory [facility] [address] [place] [address] 38339 * CBC (01/09/2017 7:26 AM) Component Value Ref Range White Blood Cells 8.1 4.5 - 11.0 K/UL RBC 3.50 (L) 4.0 - 5.0 M/UL Hemoglobin 10.5 (L) 12.0 - 15.0 GM/DL Hematocrit 32.1 (L) 36 - 45 % MCV 91.9 80 - 100 FL MCH 30.1 26 - 34 PG MCHC 32.8 32.0 - 36.0 G/DL RDW 15.4 (H) 11 - 15 % Platelet Count 284 150 - 400 K/UL MPV 8.4 7 - 11 FL Specimen Performing Laboratory [facility] [address] [place] [address] 02618 * POC GLUCOSE (01/09/2017 4:16 AM) Component Value Ref Range Glucose, POC 126 (H) 70 - 100 MG/DL Specimen Performing Laboratory [facility] [address] [place] [address] * POC GLUCOSE (01/08/2017 9:01 PM) Component Value Ref Range Glucose, POC 226 (H) 70 - 100 MG/DL Specimen Performing Laboratory [facility] [address] [place] [address] * CT HEAD WO CONTRAST (01/08/2017 6:15 PM) Specimen Performing Laboratory [facility] RAD RESULTS Impressions 1. Prior left frontal kirit hole craniotomy with interval removal of left frontal drainage catheter. 2. Interval decrease in left frontal parenchymal hematoma with surrounding low density edema and some expected evolution. Slight decrease in mild left-to- right midline shift with improvement in local mass effect. 2. Interval resolution of mild intraventricular hemorrhage, with slight distention of the lateral and third ventricles. 3. Small right subacute cingulate gyrus infarct is better demonstrated on prior MRI. By my electronic signature, I attest that I have personally reviewed the images for this examination and formulated the interpretations and opinions expressed in this report Finalized by Ronnie Howe M.D. on 01/08/2017 7:08 PM. Dictated by Justino Cox MD on 01/08/2017 6:12 PM. Narrative EXAM: CT HEAD HISTORY: 66-year-old female. Altered mental status, recent hemorrhagic stroke. TECHNIQUE: Multiple contiguous axial images were obtained of the brain without intravenous contrast. COMPARISON: CT head from December 27, 2016 and MRI head from December 28, 2016. FINDINGS: Prior left frontal kirit hole craniotomy with interval removal of left frontal drainage catheter. There is some minimal left frontal pneumocephalus. Interval decrease in size of the left frontal hematoma now measuring 4 x 1.6 cm compared to 6.3 x 2.4 cm on the most recent head CT from 12/27/2016, with surrounding low density edema and some expected evolution of the hematoma. Interval resolution of mild intraventricular hemorrhage. The ventricles are slightly increased in size compared prior exam. Some localized mass effect has improved, including mild deformity of the left frontal horn adjacent to the hematoma and left cerebral sulcal effacement remains. No new hemorrhage is identified. There is persistent mild [id number] midline shift measuring approximately 4 to 5 mm, previously 6 mm. There is a small subacute infarct of the right cingulate gyrus that is much better demonstrated on prior MRI. The basal cisterns are patent. There is a trace right mastoid effusion. The left mastoid air cells and other paranasal sinuses are well-aerated. Procedure Note Interface, Radiant Results - 01/08/2017 7:11 PM CDT EXAM: CT HEAD HISTORY: 66-year-old female. Altered mental status, recent hemorrhagic stroke. TECHNIQUE: Multiple contiguous axial images were obtained of the brain without intravenous contrast. COMPARISON: CT head from December 27, 2016 and MRI head from December 28, 2016. FINDINGS: Prior left frontal kirit hole craniotomy with interval removal of left frontal drainage catheter. There is some minimal left frontal pneumocephalus. Interval decrease in size of the left frontal hematoma now measuring 4 x 1.6 cm compared to 6.3 x 2.4 cm on the most recent head CT from 12/27/2016, with surrounding low density edema and some expected evolution of the hematoma. Interval resolution of mild intraventricular hemorrhage. The ventricles are slightly increased in size compared prior exam. Some localized mass effect has improved, including mild deformity of the left frontal horn adjacent to the hematoma and left cerebral sulcal effacement remains. No new hemorrhage is identified. There is persistent mild [id number] midline shift measuring approximately 4 to 5 mm, previously 6 mm. There is a small subacute infarct of the right cingulate gyrus that is much better demonstrated on prior MRI. The basal cisterns are patent. There is a trace right mastoid effusion. The left mastoid air cells and other paranasal sinuses are well-aerated. IMPRESSION 1. Prior left frontal kirit hole craniotomy with interval removal of left frontal drainage catheter. 2. Interval decrease in left frontal parenchymal hematoma with surrounding low density edema and some expected evolution. Slight decrease in mild left-to- right midline shift with improvement in local mass effect. 2. Interval resolution of mild intraventricular hemorrhage, with slight distention of the lateral and third ventricles. 3. Small right subacute cingulate gyrus infarct is better demonstrated on prior MRI. By my electronic signature, I attest that I have personally reviewed the images for this examination and formulated the interpretations and opinions expressed in this report Finalized by Ronnie Howe M.D. on 01/08/2017 7:08 PM. Dictated by Justino Cox MD on 01/08/2017 6:12 PM. * POC GLUCOSE (01/08/2017 4:55 PM) Component Value Ref Range Glucose, POC 132 (H) 70 - 100 MG/DL Specimen Performing Laboratory [facility] [address] [place] [address] 59164 * POC GLUCOSE (01/08/2017 3:04 PM) Component Value Ref Range Glucose, POC 128 (H) 70 - 100 MG/DL Specimen Performing Laboratory [facility] [address] [place] [address] 30703 * POC GLUCOSE (01/08/2017 11:50 AM) Component Value Ref Range Glucose, POC 334 (H) 70 - 100 MG/DL Specimen Performing Laboratory [facility] [address] [place] [address] 94151 * POC GLUCOSE (01/08/2017 11:49 AM) Component Value Ref Range Glucose, POC 329 (H) 70 - 100 MG/DL Specimen Performing Laboratory [facility] [address] [place] [address] 20511 * POC GLUCOSE (01/08/2017 7:51 AM) Component Value Ref Range Glucose, POC 131 (H) 70 - 100 MG/DL Specimen Performing Laboratory [facility] [address] [place] [address] 40229 * BASIC METABOLIC PANEL (01/08/2017 7:45 AM) Component Value Ref Range Sodium 149 (H) 137 - 147 MMOL/L Potassium 4.0 3.5 - 5.1 MMOL/L Chloride 113 (H) 98 - 110 MMOL/L CO2 29 21 - 30 MMOL/L Anion Gap 7 3 - 12 Glucose 140 (H) 70 - 100 MG/DL Blood Urea Nitrogen 30 (H) 7 - 25 MG/DL Creatinine 0.60 0.4 - 1.00 MG/DL Calcium 9.2 8.5 - 10.6 MG/DL eGFR Non >60 [...] Pharmacist for questions. Specimen Performing Laboratory Blood [facility] [address] [place] [address] 08193 * CBC (01/08/2017 7:45 AM) Component Value Ref Range White Blood Cells 8.8 4.5 - 11.0 K/UL RBC 3.42 (L) 4.0 - 5.0 M/UL Hemoglobin 10.5 (L) 12.0 - 15.0 GM/DL Hematocrit 31.0 (L) 36 - 45 % MCV 90.6 80 - 100 FL MCH 30.6 26 - 34 PG MCHC 33.8 32.0 - 36.0 G/DL RDW 15.8 (H) 11 - 15 % Platelet Count 299 150 - 400 K/UL MPV 8.8 7 - 11 FL Specimen Performing Laboratory Blood [facility] [address] [place] [id number] * POC GLUCOSE (01/08/2017 3:40 AM) Component Value Ref Range Glucose, POC 145 (H) 70 - 100 MG/DL Specimen Performing Laboratory [facility] [address] [place], [place] [id number] * POC GLUCOSE (01/07/2017 8:53 PM) Component Value Ref Range Glucose, POC 269 (H) 70 - 100 MG/DL Specimen Performing Laboratory [facility] [address] [place] [id number] * POC GLUCOSE (01/07/2017 6:02 PM) Component Value Ref Range Glucose, POC 133 (H) 70 - 100 MG/DL Specimen Performing Laboratory [facility] [address] [place] [id number] * POC GLUCOSE (01/07/2017 12:08 PM) Component Value Ref Range Glucose, POC 209 (H) 70 - 100 MG/DL Specimen Performing Laboratory [facility] [address] [place] [id number] * POC GLUCOSE (01/07/2017 8:02 AM) Component Value Ref Range Glucose, POC 207 (H) 70 - 100 MG/DL Specimen Performing Laboratory [facility] [address] [place], [place] [id number] * BASIC METABOLIC PANEL (01/07/2017 7:35 AM) Component Value Ref Range Sodium 151 (H) 137 - 147 MMOL/L Potassium 3.8 3.5 - 5.1 MMOL/L Chloride 115 (H) 98 - 110 MMOL/L CO2 29 21 - 30 MMOL/L Anion Gap 7 3 - 12 Glucose 209 (H) 70 - 100 MG/DL Blood Urea Nitrogen 32 (H) 7 - 25 MG/DL Creatinine 0.69 0.4 - 1.00 MG/DL Calcium 9.3 8.5 [...] questions. Specimen Performing Laboratory Blood [facility] [address] [place] [address] * CBC (01/07/2017 7:35 AM) Component Value Ref Range White Blood Cells 8.3 4.5 - 11.0 K/UL RBC 3.56 (L) 4.0 - 5.0 M/UL Hemoglobin 10.8 (L) 12.0 - 15.0 GM/DL Hematocrit 32.9 (L) 36 - 45 % MCV 92.3 80 - 100 FL MCH 30.2 26 - 34 PG MCHC 32.7 32.0 - 36.0 G/DL RDW 15.8 (H) 11 - 15 % Platelet Count 358 150 - 400 K/UL MPV 8.5 7 - 11 FL Specimen Performing Laboratory Blood [facility] [address] [place] [id number] * POC GLUCOSE (01/07/2017 3:55 AM) Component Value Ref Range Glucose, POC 204 (H) 70 - 100 MG/DL Specimen Performing Laboratory [facility] [address] [place] [id number] * POC GLUCOSE (01/06/2017 8:58 PM) Component Value Ref Range Glucose, POC 135 (H) 70 - 100 MG/DL Specimen Performing Laboratory [facility] [address] [place] [id number] * POC GLUCOSE (01/06/2017 5:12 PM) Component Value Ref Range Glucose, POC 149 (H) 70 - 100 MG/DL Specimen Performing Laboratory [facility] [address] [place] [phone] in this encounter Visit Diagnoses Diagnosis Nontraumatic cortical hemorrhage of left cerebral hemisphere (HCC) - Primary Aphasia Intraparenchymal hematoma of brain (HCC) Dysphagia Dysphagia, unspecified 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) Impaired mobility and activities of daily living Mechanical problems with limbs Normocytic anemia Anemia, unspecified Hypernatremia Hyperosmolality and/or hypernatremia Apraxia, 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, late effect of cerebrovascular disease in this encounter Admitting Diagnoses Diagnosis IPH Intraparenchymal hematoma of brain (HCC) in this encounter Administered Medications Medication Order MAR Action Action Date Dose Rate Site acetaminophen (TYLENOL) oral solution Given 01/19/2017 650 mg 650 mg 20:40 CDT 650 mg, Per NG tube, EVERY 4 HOURS PRN, Starting Thu01/06/17 at 1608, Until Thu01/30/17 at 1404, Pain non-opioid: may be used alone or in combination with opioid analgesia, TOTAL ACETAMINOPHEN DOSE NOT TO EXCEED 4GM DAILY Given 01/24/2017 650 mg 21:42 CDT Given 01/26/2017 650 mg 20:03 CDT aspirin chewable tablet 81 mg Given 01/28/2017 81 mg 81 mg, Per NG tube, DAILY, First dose on 08:51 CDT Thu01/23/17 at 0900, Until Discontinued Given 01/29/2017 81 mg 09:25 CDT Given 01/30/2017 81 mg 09:10 CDT aspirin EC tablet 81 mg Given 01/20/2017 81 mg 81 mg, Oral, DAILY, First dose on Thu 17:23 CDT 01/20/17 at 1545, Until Discontinued Given 01/21/2017 81 mg 08:50 CDT Given 01/22/2017 81 mg 08:37 CDT bisacodyl (DULCOLAX) rectal suppository Given 01/08/2017 10 mg 10 mg 11:42 CDT 10 mg, Rectal, DAILY PRN, Starting Thu01/06/17 at 1608, Until Thu01/30/17 at 1404, Constipation DE, Do not order suppository for neutropenic and/or thrombocytopenic patients. bisacodyl (DULCOLAX) rectal suppository Given 01/18/2017 10 mg 10 mg 08:47 CDT 10 mg, Rectal, ONCE, 1 dose, 01/18/17 at 0800, Hold for loose stools carboxymethylcellulose (REFRESH PLUS) Given 01/22/2017 1 drop 0.5 % ophthalmic solution 1 drop 18:33 CDT 1 drop, Left Eye, NEEDED, Starting Thu01/20/17 at 1043, Until 01/25/17 at 1008, Dry Eyes, Irritated Eyes Given 01/22/2017 1 drop 22:30 CDT Given 01/24/2017 1 drop 02:46 CDT cefpodoxime (VANTIN) tablet 100 mg Given 01/07/2017 100 mg 100 mg, Per G Tube, EVERY 12 HOURS, 7 05:44 CDT doses, First dose on Thu01/06/17 at 1800, Last dose on Thu01/09/17 at 1800 Given 01/07/2017 100 mg 18:02 CDT Given 01/08/2017 100 mg 05:48 CDT clopiDOGrel (PLAVIX) tablet 75 mg Given 01/20/2017 75 mg 75 mg, Oral, DAILY, First dose on Thu 17:23 CDT 01/20/17 at 1545, Until Discontinued, This Medication can increase the risk of bleeding and may need to be held prior to surgery or invasive procedures. Consult physician in advance. Given 01/21/2017 75 mg 08:50 CDT Given 01/22/2017 75 mg 08:37 CDT clopiDOGrel (PLAVIX) tablet 75 mg Given 01/28/2017 75 mg 75 mg, Per NG tube, DAILY, First dose on 08:51 CDT Thu01/23/17 at 0900, Until Discontinued, This Medication can increase the risk of bleeding and may need to be held prior to surgery or invasive procedures. Consult physician in advance. Given 01/29/2017 75 mg 09:25 CDT Given 01/30/2017 75 mg 09:10 CDT cromolyn (CROLOM) 4 % ophthalmic Given 01/29/2017 1 drop solution 1 drop 09:29 CDT 1 drop, Both Eyes, TWICE DAILY, First dose on Thu01/25/17 at 1015, Until Discontinued Given 01/29/2017 1 drop 21:49 CDT Given 01/30/2017 1 drop 09:24 CDT docusate (COLACE) oral solution 100 mg Given 01/29/2017 100 mg 100 mg, PEG Tube, TWICE DAILY, First 09:26 CDT dose on Thu01/06/17 at 2100, Until Discontinued, Hold for loose stools Given 01/29/2017 100 mg 21:47 CDT Given 01/30/2017 100 mg 09:11 CDT donepezil (ARICEPT) tablet 5 mg Given 01/27/2017 5 mg 5 mg, Oral, DAILY, First dose on Thu 08:06 CDT 01/27/17 at 0900, Until Discontinued donepezil (ARICEPT) tablet 5 mg Given 01/28/2017 5 mg 5 mg, SEE ADMIN INSTRUCTIONS, DAILY, 08:51 CDT First dose on Thu01/28/17 at 0900, Until Discontinued, Per feeding tube Given 01/29/2017 5 mg 09:29 CDT Given 01/30/2017 5 mg 09:10 CDT doxazosin (CARDURA) tablet 1 mg Given 01/17/2017 1 mg 1 mg, Per NG tube, DAILY, First dose on 08:32 CDT Thu01/16/17 at 0900, Until Discontinued Given 01/18/2017 1 mg 08:37 CDT Given 01/19/2017 1 mg 09:17 CDT doxazosin (CARDURA) tablet 2 mg Given 01/13/2017 2 mg 2 mg, Per NG tube, DAILY, First dose on 10:32 CDT Thu01/07/17 at 0900, Until Discontinued Given 01/14/2017 2 mg 09:52 CDT Given 01/15/2017 2 mg 08:19 CDT heparin (porcine) PF syringe 5,000 Units Given 01/29/2017 5,000 Units Abdominal 5,000 Units, Subcutaneous, EVERY 8 14:47 CDT Tissue HOURS, First dose on Thu01/06/17 at 2200, Until Discontinued, NOTE: This is a HIGH ALERT Medication. Given 01/29/2017 5,000 Units Abdominal 21:49 CDT Tissue Given 01/30/2017 5,000 Units Abdomen:LLQ 06:37 CDT insulin aspart (NOVOLOG FLEXPEN) Given 01/18/2017 2 Units Abdomen:LLQ injection PEN 0-14 Units 21:10 CDT 0-14 Units, Subcutaneous, FIVE TIMES DAILY, First dose on Thu01/06/17 at 1745, Until Discontinued, -POC glucose 140-180mg/dL at 07, , 17 administer 2 units insulin, at 21, 03* administer 0 units. -POC glucose 181-220mg/dL at , , administer 4 units insulin, at 21, 03* administer 2 units. -POC glucose 221-260mg/dL at administer 6 units insulin, at , 03* administer 4 units. -POC glucose 261-300mg/dL at administer 8 units insulin, at , * administer 6 units. -POC glucose 301-350mg/dL at administer 10 units insulin, at , * administer 8 units. -POC glucose 351-400mg/dL at administer 12 units insulin, at , * administer 10 units. -POC glucose >400mg/dL at administer 14 units insulin, at , * administer 12 units. *only if ordered 5x's daily For POCT glucose >350mg/dL give correction bolus and recheck POCT glucose in 2 hours. If POCT glucose at 2 hours >300mg/dL call physician for further orders. For patients who are not eating meals, continue to administer the appropriate correction factor. NOTE: This is a HIGH ALERT Medication. Given 01/19/2017 4 Units Arm, Right 12:00 CDT Given 01/28/2017 2 Units Abdominal 12:39 CDT Tissue levETIRAcetam (KEPPRA) oral solution 500 Given 01/13/2017 500 mg mg 10:32 CDT 500 mg, Per G Tube, TWICE DAILY, First dose on Thu01/06/17 at 2100, Until Discontinued Given 01/13/2017 500 mg 21:02 CDT Given 01/14/2017 500 mg 09:52 CDT levETIRAcetam (KEPPRA) oral solution 750 Given 01/29/2017 750 mg mg 09:25 CDT 750 mg, Per G Tube, TWICE DAILY, First dose on Thu01/14/17 at 2100, Until Discontinued Given 01/29/2017 750 mg 21:48 CDT Given 01/30/2017 750 mg 09:10 CDT levoFLOXacin (LEVAQUIN) oral solution Given 01/10/2017 750 mg 750 mg 15:50 CDT 750 mg, Per G Tube, EVERY 24 HOURS, First dose on Thu01/08/17 at 1530, Until Discontinued, NURSING: Please educate patient and document: If patient is receiving tube feedings, hold tube feedings 1 hour before and 2 hours after dose. Do not give within 2 hours of antacids, magnesium, calcium, iron, zinc, or vitamins containing these minerals. Given 01/11/2017 750 mg 16:00 CDT Given 01/12/2017 750 mg 17:06 CDT loratadine (CLARITIN) tablet 10 mg Given 01/20/2017 10 mg 10 mg, Oral, DAILY, First dose on Thu 12:24 CDT 01/20/17 at 1045, Until Discontinued Given 01/21/2017 10 mg 08:50 CDT Given 01/22/2017 10 mg 08:37 CDT loratadine (CLARITIN) tablet 10 mg Given 01/28/2017 10 mg 10 mg, Per NG tube, DAILY, First dose on 08:51 CDT 01/23/17 at 0900, Until Discontinued Given 01/29/2017 10 mg 09:25 CDT Given 01/30/2017 10 mg 09:10 CDT melatonin tablet 5 mg Given 01/14/2017 5 mg 5 mg, Oral, AT BEDTIME DAILY, First dose 21:22 CDT on Tu01/13/17 at 2100, Until Discontinued Given 01/15/2017 5 mg 21:47 CDT Given 01/16/2017 5 mg 21:14 CDT melatonin tablet 5 mg Given 01/27/2017 5 mg 5 mg, Per G Tube, AT BEDTIME DAILY, 21:36 CDT First dose on Thu01/17/17 at 2100, Until Discontinued Given 01/28/2017 5 mg 21:53 CDT Given 01/29/2017 5 mg 21:47 CDT milk of magnesia (CONC) oral suspension Given 01/08/2017 10 mL 10 mL 08:25 CDT 10 mL, Per G Tube, EVERY 4 HOURS PRN, Starting Thu01/06/17 at 1617, Until Thu01/30/17 at 1404, Constipation PO, 10 mL CONC=30 mL MOM modafinil (PROVIGIL) tablet 100 mg Given 01/13/2017 100 mg 100 mg, Oral, DAILY, First dose on Thu 10:33 CDT 01/13/17 at 0945, Until Discontinued modafinil (PROVIGIL) tablet 100 mg Given 01/14/2017 100 mg 100 mg, Oral, TWICE DAILY, First dose on 14:44 CDT 01/14/17 at 1200, Until Discontinued Given 01/15/2017 100 mg 06:11 CDT Given 01/15/2017 100 mg 12:37 CDT modafinil (PROVIGIL) tablet 200 mg Given 01/21/2017 200 mg 200 mg, Oral, TWICE DAILY, First dose on 06:43 CDT Thu01/16/17 at 0700, Until Discontinued Given 01/21/2017 200 mg 13:00 CDT Given 01/22/2017 200 mg 06:06 CDT modafinil (PROVIGIL) tablet 200 mg Given 01/22/2017 200 mg 200 mg, Per NG tube, TWICE DAILY, First 12:48 CDT dose on Thu01/22/17 at 1200, Until Discontinued Given 01/23/2017 200 mg 06:00 CDT senna (SENOKOT) tablet 2 tablet Given 01/24/2017 2 tablets 2 tablet, Per G Tube, AT BEDTIME DAILY, 21:35 CDT First dose on Thu01/06/17 at 2100, Until Discontinued, Hold for loose stools Given 01/25/2017 2 tablets 22:30 CDT Given 01/29/2017 2 tablets 21:48 CDT in this encounter
--- OUTSIDE RECORDS SUMMARY | 2017-03-03 06:03 | XMS REPORT | Encounter Summary ---
Author Author [facility] Organization [facility] Address Unknown Phone Unavailable Care Team Providers Care Document Control Supervisor Name Role Phone PCP Unavailable Encounter Details Date Type Department Care Team Description 01/14/2017 Procedure Pass [facility] [address] [place] [address] Social History Tobacco Use Types Packs/Day Years Used Date Never Smoker Smokeless Tobacco: Never Used Alcohol Use Drinks/Week oz/Week Comments No Sex Assigned at Date Recorded Not on file as of this encounter Functional Status Functional Status Response Date of Assessment Does the patient have a hearing impairment: No 01/06/2017 as of this encounter Plan of Treatment Not on fileas of this encounter Visit Diagnoses Not on filein this encounter
--- OUTSIDE RECORDS SUMMARY | 2017-03-03 06:03 | XMS REPORT | Encounter Summary ---
Author Author [facility] Organization [facility] Address Unknown Phone Unavailable Care Team Providers Care Staff Command And Control Officer Name Role Phone PCP Unavailable Encounter Details Date Type Department Care Team Description 01/08/2017 Procedure Pass [facility] [address] [place], [place] [id number] Social History Tobacco Use Types Packs/Day Years [...]
--- OUTSIDE RECORDS SUMMARY | 2017-03-03 06:06 | XMS REPORT | Encounter Summary ---
Author Author [facility] Organization [facility] Address Unknown Phone Unavailable Care Team Providers Care Utility Assembler Name Role Phone PCP Unavailable Reason for Visit * Auth/Cert Status Reason Specialty Diagnoses / Referred By Referred To Procedures Contact Contact Diagnoses large left front hematoma Hemorrhagic stroke (HCC) Encounter Details Date Type Department Care Team Description 12/22/2016 [facility] NEUROSCIENCE & ENT PRO Antwan Guadarrama MD Dysphagia - Encounter [address] 01/06/2017 [place] [address] [address] [place] [address] [phone] Social History Tobacco Use Types Packs/Day Years Used Date Never Smoker Smokeless Tobacco: Never Used Alcohol Use Drinks/Week oz/Week Comments No Sex Assigned at Date Recorded Not on file as of this encounter Last Filed Vital Signs Vital Sign Reading Time Taken Blood Pressure 104/55 01/06/2017 3:00 PM CDT Pulse 96 01/06/2017 3:00 PM CDT Temperature 36.4 C (97.6 F) 01/06/2017 3:00 PM CDT Respiratory Rate - - Oxygen Saturation 97% 01/06/2017 3:00 PM CDT Inhaled Oxygen - - Concentration Weight 55.2 kg (121 lb 11.1 oz) 12/31/2016 5:08 PM CDT Height 154.9 cm (5' 0.98") 12/31/2016 5:08 PM CDT Body Mass Index 23.01 12/31/2016 5:08 PM CDT in this encounter Functional Status Functional Status Response Date of Assessment Does the patient have a hearing impairment: No 12/24/2016 as of this encounter Discharge Summaries * Sharon Sosa APRN - 01/06/2017 2:20 PM CDT Formatting of this note may be different from the original. Physician Discharge Summary Name: Roxy Phillip Date Of : 1950 Age: 66 years Admit date: 12/22/2016 Discharge date: 01/06/2017 Attending Physician: Dr. Guadarrama Service: Surgery-Neuro Physician Summary completed by: Sharon Sosa APRN Reason for hospitalization: large left frontal parenchymal hemorrhage Significant PMH: Past Medical History: Diagnosis Date Arthritis Chronic back pain Dementia Osteoporosis TIA (transient ischemic attack) Allergies: Penicillins; Tomato; Celebrex [celecoxib]; and Artichoke Admission Physical Exam notable for: 66 y.o. female transfer from [facility] [place] with large left frontal parenchymal hemorrhage found on head CT. Information obtained from chart and from report as no family available. Last seen normal at bedtime last night. Woke up this am and her noticed she had word finding difficulty, right facial droop, difficulty swallowing, and Right sided weakness. He brought her to the ED for evaluation. PMH for dementia on Namenda and for TIA 3 mos ago on ASA and Plavix. Has no history for falls. Brief Hospital Course: The patient was admitted and the following issues were addressed during this hospitalization: (with pertinent details). 12/22: Admitted to NICU. CTA negative for aneurysm or AVM 12/23: Overnight patient more lethargic,repeat CT head with minimal changes 12/24: OR for drain placement 12/27: Aggressive pulmonary toilet. Rehab consulted. 12/29: EVD out 12/30: Progressed to med/surg status. General Surgery consulted for PEG placement. 01/02: PEG tube placed 01/03: Tube feeding restarted via PEG 01/05: Free water deficit. 01/06: Free water deficit corrected. Meeting discharge criteria. Discharged to home with follow up care arranged. Condition at Discharge: Stable Discharge Diagnoses: Hospital Problems Active Problems * (Principal)Dysphagia Nontraumatic cortical hemorrhage of left cerebral hemisphere (HCC) Dementia TIA (transient ischemic attack) Chronic back pain Intraparenchymal hemorrhage of brain (HCC) Hyperglycemia Surgical Procedures: Left frontal burrhole craniotomy for evacuation of ICH Significant Diagnostic Studies and Procedures: X-ray: chest, abdomen, swallow motion; MRI: head; Cerebral angiogram; CT: head; CTA: neck Consults: General Surgery, Rehabilitative Medicine and Neurology Critical Care Patient Disposition: Inpatient Rehabilitation Patient instructions/medications: Other Activity Restrictions Activity as tolerated; No driving until cleared by your surgeon at follow up appointment. Avoid pulling, pushing or lifting greater than 10 pounds. INSTRUCTIONS, ADDITIONAL If you have any questions once at home during the work week between the hours of 0800 -1700, please call Theresa at [phone]. Otherwise, please call the main hospital number ([phone]) and ask for the neurosurgery resident skin lifter bacon to be paged. BLADDER SCAN BEDSIDE Every 4 hours STRAIGHT CATH Every 4 hours for > 300 ml on bladder scan INSTRUCTIONS, ADDITIONAL CT head without contrast prior to DC from rehab. Please call [phone] when completed. PT EVAL & TREAT PT EVAL & TREAT Report These Signs and Symptoms Call for pain that is uncontrolled with pain medication, numbness or weakness, vision changes, trouble with speech or slurring of speech, or any questions/ concerns. Questions About Your Stay For questions or concerns regarding your hospital stay. Call [phone] Discharging attending physician: ANTWAN GUADARRAMA [[id number]] Tube Feeding Isosource 1.5 45 ml/hr with 150 ml H2O boluses every 4 hours Additional Discharge Instructions Please give all meds via the PEG Current Discharge Medication List START taking these medications Details acetaminophen (TYLENOL) 160 mg/5 mL oral solution Take 20.3 mL by mouth every 4 hours as needed. Max of 4,000 mg of acetaminophen in 24 hours. Qty: 240 mL, Refills: 0 PRESCRIPTION TYPE: No Print cefpodoxime (VANTIN) 100 mg tablet Take 1 tablet by mouth every 12 hours for 4 days. Take with food. Refills: 0 PRESCRIPTION TYPE: No Print doxazosin (CARDURA) 2 mg tablet Take 1 tablet by mouth daily. PRESCRIPTION TYPE: No Print heparin (porcine) PF 5,000units/0.5mL injection syringe Inject 0.5 mL under the skin every 8 hours. May discontinue once mobilizing well PRESCRIPTION TYPE: No Print HYDROcodone/acetaminophen (NORCO) 5/325 mg tablet Take 1-2 tablets by mouth every 4 hours as needed Refills: 0 PRESCRIPTION TYPE: No Print levETIRAcetam (KEPPRA) 100 mg/mL oral solution Take 5 mL by mouth twice daily. Qty: 473 mL, Refills: 12 PRESCRIPTION TYPE: No Print senna/docusate (SENOKOT-S) 8.8/50 mg /10 mL solution 10 mL by PEG Tube route twice daily. PRESCRIPTION TYPE: No Print CONTINUE these medications which have been CHANGED or REFILLED Details clopiDOGrel (PLAVIX) 75 mg tablet Take 1 tablet by mouth daily. Will reevaluate continuation of this medication at your follow up appointment Qty: 90 tablet, Refills: 3 PRESCRIPTION TYPE: No Print CONTINUE these medications which have NOT CHANGED Details aspirin EC 81 mg tablet Take 81 mg by mouth daily. Take with food. PRESCRIPTION TYPE: Historical Med duloxetine DR (CYMBALTA) 30 mg capsule Take 30 mg by mouth daily. PRESCRIPTION TYPE: Historical Med The following medications were removed from your list. This list includes medications discontinued this stay and those removed from your prior med list in our system HYDROcodone/acetaminophen(+) (NORCO) 10/325 mg tablet Scheduled appointments: Feb 11, 2017 10:30 AM CDT Post - Op with Antwan Guadarrama MD [facility] - Neurosurgery (P NeuroSurgery) 2nd Floor [address] [facility] Med Office [facility] [phone] Pending items needing follow up: None Signed: Sharon Sosa APRN 01/06/2017 cc: Primary Care Physician: Marylu Ochoa Verified Referring physicians: Antwan Guadarrama MD Additional provider(s): in this encounter Medications at Time of [...] 8.8/50 mg /10 twice daily. mL solution cefpodoxime (VANTIN) 100 Take 1 tablet by mouth 0 01/06/20172016 mg tablet every 12 hours for 4 days. Take with food. doxazosin (CARDURA) 2 mg Take 1 tablet by mouth 01/06/2017 01/30/[address] (CYMBALTA) Take 30 mg by mouth 01/30/2017 30 mg capsule daily. heparin (porcine) PF Inject 0.5 mL under the 01/06/2017 01/30/2017 5,000units/0.5mL skin every 8 hours. May injection syringe discontinue once mobilizing well HYDROcodone/acetaminophen Take 1-2 tablets by mouth 0 01/06/2017 (NORCO) 5/325 mg tablet every 4 hours as needed levETIRAcetam (KEPPRA) Take 5 mL by mouth twice 473 mL 12 01/06/2017 01/30/2017 100 mg/mL oral solution daily. as of this encounter Progress Notes * Inna Lim RN - 01/06/2017 2:44 PM CDT Discharge instructions provided and reviewed with . Verbalizes understanding. All questions answered. Ticket to ride printed and placed outside room. * Gurvinder Galicia - 01/06/2017 1:37 PM CDT SPEECH-LANGUAGE PATHOLOGY TREATMENT NOTE Education provided on this date to pt's spouse re: results from recent videoswallow study, swallow recommendations, and treatment plan. Pt's spouse verbalized understanding. Anticipate pt will have prolonged recovery of swallow function. RECOMMENDATIONS: NPO at this time with continued use of alternative form of nutrition. Excellent oral care. Ongoing dysphagia assessment and treatment. Therapist: SUZANNE Perez, CF-C IRON WORKER [phone] Date: 01/06/2017 * Jasmyne Avendaño OT - 01/06/2017 10:25 AM CDT OCCUPATIONAL THERAPY PROGRESS NOTE Admitting Diagnosis: large left front hematoma Hemorrhagic stroke (HCC) Patient seen x1 this date. Documentation reflects all daily treatment sessions. Mobility Progressive Mobility Level: Sit on edge of bed Level of Assistance: Assist X1 Assistive Device: Hand Held Time Tolerated: 31-60 minutes Activity Limited By: Fatigue Objective Psychosocial Status: Willing and Cooperative to Participate Persons Present: Spouse ADL's Grooming Assist: Moderate Assist Grooming Deficits: [...] socks over her toes, pt able to toe puller heel with minimal assist for steadying/balance. Fatigued at end of 39 minute session, frequently attempting to lie back down. Minimal assist for sit to supine, assist X2 to scoot up in bed. Mitt restraints replaced and bed alarm reset end of session. Cognition Cognition Comment: Expressive aphasia, though did say a few words this day. Apraxic, easily distracted. Further Evaluation Goals Pt Will Tolerate Further ADL Evaluation: w/in 3-5 sessions Pt Will Tolerate Further UE Status Evaluation: w/in 3-5 sessions Pt Will Tolerate Further Visual Evaluation: w/in 3-5 sessions ADL Goals Other ADL Goal 1: Patient will tolerate sitting at EOB x10 mins with moderate assist to participate in ADLs. MET Discharge Recommendations: an inpatient setting Equipment Recommendations: Too early to be determined Therapist: Jasmyne Avendaño OT Date: 01/06/2017 * Mckenzie Montesinos, JAYLA - 01/06/2017 9:05 AM CDT Formatting of this note may be different from the original. Neurosurgery Progress Note SUBJECTIVE: Rested overnight, reports she is doing good. in room, but still asleep. OBJECTIVE: Vital Signs: 24 Hour Range BP: (101-116)/(68-74) Temp: [36.3 C (97.3 F)-37 C (98.6 F)] Pulse: [92-106] Respirations: [15 PER MINUTE-18 PER MINUTE] SpO2: [97 %-100 %] O2 Delivery: None (Room Air) Bright and awake this AM Engaged in simple conversation Communicates - says name, simple phrases-responsive in social greeting Follows commands in right upper extremity, bilateral LE by wiggling toes Moves all extremities spontaneously ASSESSMENT/PLAN: 66 y.o. female with large left frontal intraparenchymal hemorrhage on ASA/ Plavix. 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 Na 149, free water deficit improving, 150ml free water boluses every 4 hours Video Swallow 01/05, continue NPO status UTI, culture pending, Rocephin started 01/05/17- 5 day course SW for DC planning -ready for rehab today Prophylaxis: A)GI: PPI B) Lines: No C) Urinary Catheter: No D) Antibiotic Usage: No E) VTE: Pharmacological prophylaxis; SQ Heparin and Mechanical prophylaxis; Sequential compression device F) Restraints: Patient assessed for need for restraints. Mckenzie Yamel, SURGICAL ELASTIC KNITTER 0727 Please call [phone] with any questions. * Kyle Christensen - 01/06/2017 8:54 AM CDT PHYSICAL THERAPY PROGRESS NOTE MOBILITY: Mobility Progressive Mobility Level: Walk laps Distance Walked (feet): 250 ft Level of Assistance: Assist X1 Assistive Device: Hand Held Time Tolerated: 11-30 minutes Activity Limited By: Fatigue SUBJECTIVE: Subjective Significant hospital events: 66 y.o. female PMH TIA, dementia, osteoporosis, arthritis, chronic back pain, admitted to [facility] with ICH on 12/22/16. Mental / Cognitive Status: Cooperative;Inconsistent with Command Following;Alert Pain: Patient demonstrates no signs of pain Comments: Patient was more alert and able to follow some commands either with verbal cues or demonstration. BED MOBILITY/TRANSFERS: Bed Mobility/Transfers Bed Mobility: Rolling: Moderate Assist [...] with Mobility;Instructed Patient to Use Call Light BALANCE: Balance Sitting Balance: Static Sitting Balance;Standby Assist;No UE Support;Minimal Assist Standing Balance: Static Standing Balance;Minimal Assist;1 UE support GAIT: Gait Gait Distance: 250 feet (3 trails: [...] 250ft, and third trial we walked 110ft. EDUCATION: Education Persons Educated: Patient Patient Barriers To Learning: Decreased Alertness;Impaired Communication Interventions: Repetition of Instructions Teaching Methods: Verbal Instruction Patient Response: More Instruction Required Topics: Plan/Goals of PT Interventions;Recommend Continued Therapy ASSESSMENT/PROGRESS: Assessment/Progress Impaired Mobility Due To: Decreased Strength;Impaired Balance;Cognitive Deficits ;Decreased Activity Tolerance;Safety Concerns Assessment/Progress: Should Improve w/ Continued PT GOALS: Goals Goal Formulation: With Patient Time For Goal Achievement: 5 days, To, 7 days Pt Will Go Sit to Supine : w/ Moderate Assist Pt Will Logroll: w/ Moderate Assist Pt Will Transfer Bed/Chair: w/ Moderate Assist, w/ Assist of 2 Pt Will Transfer Sit to Stand: w/ Maximum Assist, w/ Assist of 2 Pt Will Ambulate: New Goal, 31-50 Feet, w/ Stand By Assist PLAN: Plan Treatment Interventions: Strengthening;Mobility Training;Balance Activities Plan Frequency: 5 Days per Week Comments: continue ambulation and decrease assist with transfers; increase endurance RECOMMENDATIONS: PT Discharge Recommendations PT Discharge Recommendations: Inpatient Setting Therapist: KATIE Phillips Date: 01/06/2017 Associated attestation - Donna Luque PT - 01/06/2017 1:03 PM CDT I was present and involved in directing the care of the patient throughout the physical therapy session. * Gurvinder Galicia - 01/05/2017 3:00 PM CDT SPEECH-LANGUAGE PATHOLOGY VIDEOSWALLOW ASSESSMENT EVALUATION SUMMARY Videoswallow Summary*: Videoswallow completed. Severe oropharyngeal dysphagia persists due to large left frontal intraparenchymal hemmorhage. Dysphagia [...] the swallow. Pt w/ mild vallecular and minimal pyriform residue following swallows of thin liquids and moderate vallecular residue following swallows of nectar thick liquids. Residue likely due to weakness [...] and is not ejected from the airway. Objective* Relevant Med Background: 66 y.o. female PMH TIA, dementia, osteoporosis, arthritis, chronic back pain, admitted to [facility] with ICH on 12/22/16. Large left frontal intraparenchymal hemorrhage on ASA/Plavix. PEG tube placed 01/02. MRI 12/28: 1. Severely motion limited examination without obvious change in size of the large left frontal parenchymal hemorrhage or subtle intraventricular extension. 2. No obvious enhancing lesion or abnormal vascular flow voids. 3. 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 Lives With: Spouse Receives Help From: None Needed Psychosocial Status: Lethargic, Participates in Therapy with Encouragement Persons Present: None Subjective* Pain: Patient demonstrates no signs of pain Trach Presence: No Feeding Tube Present During Eval: (PEG) Nutrition* Nutrition Prior To Hospitalization: Oral, Regular, Thin Liquids Current Form Of Nutrition: NPO, PEG Views / Seating* Views / Seating: Lateral View Barium Consist/Presentation* Presentations: Therapist Fed Thin Liquid: Cup [place] Thick Liquid: Cup, straw Education* Persons Educated: Patient Barriers To Learning: Impaired Communication, Decreased Alertness, Cognitive Deficits, Family not present Interventions: Staff Educated Teaching Methods: Verbal Topics: Aphasia, Dysphagia Patient Response: More Instruction Required Goals: Pt will participate in ongoing dysphagia assessment and treatment. Therapist: SUZANNE Perez, CF-C IRON WORKER [phone] Date: 01/05/2017 * Jasmyne Avendaño OT - 01/05/2017 2:08 PM CDT OCCUPATIONAL THERAPY NO TREATMENT NOTE The patient was not seen due to: Patient at test/procedure just left for video swallow study. Attempted to see patient 1 time(s) Therapist: Jasmyne Avendaño, LELAND Date: 01/05/2017 * Mckenzie Montesinos APRN - 01/05/2017 11:47 AM CDT Formatting of this note may be different from the original. Neurosurgery Progress Note SUBJECTIVE: at bedside, discussed results of labs this AM, and needing to resolve free water deficit, and this being a barrier to rehab today. Video swallow later today. OBJECTIVE: Vital Signs: 24 Hour Range BP: (94-116)/(49-74) Temp: [36.2 C (97.2 F)-37.5 C (99.5 F)] Pulse: [106-123] Respirations: [14 PER MINUTE-18 PER MINUTE] SpO2: [93 %-99 %] O2 Delivery: None (Room Air) Eyes open, tracking examiner Communicates - says name, simple phrases-responsive in social greeting Follows commands in right upper extremity, bilateral LE by wiggling toes Moves all extremities spontaneously EVD site C/D/I ASSESSMENT/PLAN: 66 y.o. female with large left frontal intraparenchymal hemorrhage on ASA/ Plavix. 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 IVF 1/ 2NS 500ml bolus, and 150ml free water boluses every 4 hours C IRON WORKER VS this afternoon SW for DC planning -anticipate ready for rehab tomorrow 01/06 Prophylaxis: A)GI: PPI B) Lines: No C) Urinary Catheter: No D) Antibiotic Usage: No E) VTE: Pharmacological prophylaxis; SQ Heparin and Mechanical prophylaxis; Sequential compression device F) Restraints: Patient assessed for need for restraints. Mckenzie Montesinos, SURGICAL ELASTIC KNITTER 1181 Please call [phone] with any questions. * Kyle Christensen - 01/05/2017 11:35 AM CDT PHYSICAL THERAPY PROGRESS NOTE MOBILITY: Mobility Progressive Mobility Level: Walk in hallway Distance Walked (feet): 120 ft Level of Assistance: Assist X2 Assistive Device: Hand Held Time Tolerated: 0-10 minutes Activity Limited By: Fatigue;Weakness SUBJECTIVE: Subjective Significant hospital events: 66 y.o. female PMH TIA, dementia, osteoporosis, arthritis, chronic back pain, admitted to [facility] with ICH on 12/22/16. Mental / Cognitive Status: Cooperative;Alert Pain: Patient demonstrates no signs of pain Pain Interventions: Patient agrees to participate in therapy;Patient assisted into position of comfort Comments: Patient is more alert today. She responds to verbal questions with eyes contact but was unable to verbally answer questions. She was unable to follow commands or mimic any task. She was able to do more automatic tasks such as standing up and walking. BED MOBILITY/TRANSFERS: Bed Mobility/Transfers Bed Mobility: Rolling: Maximum Assist Bed Mobility: Sit to Supine: Moderate Assist;Requires Extra Time Transfer Type: Sit to Stand Transfer: Assistance Level: To/From;Bed;Moderate Assist Transfer: Assistive Device: Hand Hold Assist Transfers: Type Of Assistance: Verbal Cues;Knees(s) Blocked;For Balance;For Strength Deficit;For Safety Considerations End Of Activity Status: Up in Chair;Nursing Notified;Instructed Patient to Request Assist with Mobility;Instructed Patient to Use Call Light BALANCE: Balance Sitting Balance: Static Sitting Balance;1 UE Support;Standby Assist;No UE Support;Minimal Assist Standing Balance: Static Standing Balance;2 UE support;Moderate Assist GAIT: Gait Gait Distance: 120 feet Gait: Assistance Level: Minimal Assist;x2 People Gait: Assistive Device: Hand Hold Assist Gait: Descriptors: Pace: Slow;Loss of balance;Variable step length Comments: The patient needed verbal cues for stepping forward with the correct foot and quick weight shifting to keep her moving forward. Patient needed minimal physical assistance for weight shifting her body while ambulating. After ambulating 50ft the patient was able to weight shift for herself and take steps with moderate assistance; When the patient was fatigued her R toe would start to drag on the floor. the needed verbal and tactile cues to lift the RLE up. When the patient was fatigued she would stop and start to have increased trunk flexion, knee flexion, and hip flexion. maximal assistance x2 needed to keep the patient upright and moving forward. ACTIVITY/EXERCISE: Activity / Exercise Exercise: (Sit to Stand) Exercise Repetitions: 2 Comments: Sit to stand exercise performed after walking 120ft. patient was fatigued when performing theses exercises and she was a moderate assist to help stand. EDUCATION: Education Persons Educated: Patient Patient Barriers To Learning: Decreased Alertness;Impaired Communication Interventions: Repetition of Instructions Teaching Methods: Verbal Instruction Patient Response: More Instruction Required Topics: Plan/Goals of PT Interventions;Recommend Continued Therapy ASSESSMENT/PROGRESS: Assessment/Progress Impaired Mobility Due To: Decreased Strength;Impaired Balance;Cognitive Deficits ;Decreased Activity Tolerance;Safety Concerns Assessment/Progress: Should Improve w/ Continued PT GOALS: Goals Goal Formulation: With Patient Time For Goal Achievement: 5 days, To, 7 days Pt Will Go Sit to Supine : w/ Moderate Assist Pt Will Logroll: w/ Moderate Assist Pt Will Transfer Bed/Chair: w/ Moderate Assist, w/ Assist of 2 Pt Will Transfer Sit to Stand: w/ Maximum Assist, w/ Assist of 2 PLAN: Plan Treatment Interventions: Strengthening;Mobility Training;Balance Activities Plan Frequency: 5 Days per Week Comments: continue ambulation and decrease assist with transfers; increase endurance RECOMMENDATIONS: PT Discharge Recommendations PT Discharge Recommendations: Inpatient Setting Therapist: Kyle Christensen, SPT Date: 01/05/2017 Associated attestation - Donna Luque, PT - 01/05/2017 4:20 PM CDT I was present and involved in directing the care of the patient throughout the physical therapy session. * Debbi Lyle - 01/05/2017 11:25 AM CDT CLINICAL NUTRITION Clinical Nutrition Follow-Up Summary Nutrition Assessment of Patient: Malnutrition Assessment: Malnutrition present Malnutrition Context: ICD-10 code E43: Chronic illness/Severe malnutrition Estimated Calorie Needs: [id number] (28-30 kcal/kg dry wt 55.4kg) Estimated Protein Needs: 65-75 (1.2-1.4g/kg dry wt 55.4kg) Oral Diet Order: NPO Intake (calories) Daily Average : 698 kilocalories (46% of goal) Intake (protein) Daily Average : 32 grams (49% of goal) Current EN Order: Isosource 1.5 at goal rate of 45ml/hr per PEG. Provides 1620 kcal, 73g protein, and 820ml free water. 66 yo female w/ PMH including dementia, chronic back pain, TIA; transferred to [facility] 12/22 with large left frontal parenchymal hemorrhage on AC Plavix and ASA for hx TIA 3 mos ago. NPO on room air; to OR for drain placement 12/24. PEG placed . Meets criteria for severe malnutrition in chronic illness. Isosource 1.5 EN feeds started per NGT 12/25. [address] 12/29- met 55% min kcal goal and 58% min protein goal. Due to rescheduling of PEG and TF holds, EN avg decreased 01/01 -01/04, meeting 46% of kcal and 49% of protein needs. Some nausea noted 01/04; resolved today. Current TF rate at goal with no s/s of intolerance or GI distress per RN. Last BM 01/04. No edema or pressure injuries noted. Weight is stable. Recommendation: Continue current EN regemin as tolerated. If bolus feeds are desired, recommend 1 carton of Isosource 1.5; 4 times daily + minimum 30ml water flush before and after each feeds. Additional fluids per MD. Bolus feeds provide 1500 kcal, 68g protein, and 760ml free water from EN. Intervention / Plan: Monitor EN rate/tolerance Monitor wt, labs, skin, gi, fluids, meds Nutrition Diagnosis: Nutrition Diagnosis: Altered GI function Etiology: swallowing deficits with AMS;stroke Signs & Symptoms: NPO with EN feeds Goals: EN tolerated and meeting >85% of nutritional needs Time Frame: Within 24 Hours Status: Met;Ongoing Debbi Lyle, RD, LD *[id number] * Boo Banks RN - 01/04/2017 2:30 PM CDT Patient arrive to room 822 per bed and accompany by NEI nurse and spouse with her belongings. Patient in bed resting quietly. Will monitor. * Shakeel Brito RN - 01/03/2017 8:00 PM CDT Pt assessment complete. Oriented to self, speaks minimal words, minimal pain at this time, PERRL, afebrile. ST 100s, Cuff BP 107/71, MAP 79, pulses palpable. Room air, tolerating well, clear lung sounds. Wounds C/D/I. Adequate UOP. Family at bedside. Will continue to monitor and follow plan of care. * Abby Hernandez MD - 01/03/2017 10:41 AM CDT Formatting of this note may be different from the original. Neurosurgery Progress Note SUBJECTIVE: No acute events overnight. Doing well this morning. Brightly awake. OBJECTIVE: Vital Signs: 24 Hour Range BP: (108-128)/(56-78) Temp: [36.7 C (98 F)-37 C (98.6 F)] Pulse: [96-106] Respirations: [12 PER MINUTE-22 PER MINUTE] SpO2: [96 %-98 %] O2 Delivery: None (Room Air) Eyes open, tracking examiner Communicates - says name, simple phrases Follows commands in right upper extremity, bilateral LE by wiggling toes Moves all extremities spontaneously EVD site C/D/I ASSESSMENT/PLAN: 66 y.o. female with large left frontal intraparenchymal hemorrhage on ASA/ Plavix. 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 Abby Hernandez MD Please call [phone] with any questions. Associated attestation - Madhavi Rivera MD - 01/03/2017 12:42 PM CDT Attending Note Patient and imaging reviewed with resident/ QLIKVIEW DEVELOPER. Patient seen and examined on . I agree with the history, examination findings and assessment/ plan unless otherwise noted below. Madhavi Rivera MD Department of Neurosurgery * Karri Rai DO - 01/03/2017 8:26 AM CDT Formatting of this note may be different from the original. Acute Care Surgery Progress Note 01/03/2017 Patient: Roxy Phillip Admission date 12/22/2016, LOS: 12 days ASSESSMENT Roxy Phillip is a 66 y.o. 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 Call with questions [phone] Discussed plan of care with Dr. Hankins SUBJECTIVE: No acute events overnight. Pain well controlled. Patient alert this am OBJECTIVE: Vital Signs: Last Filed Vital Signs: 24 Hour Range BP: 126/62 (01/04 400) Temp: 36.7 C (98 F) (01/04 400) Pulse: 97 (01/02 1915) Respirations: 12 PER MINUTE (01/02 1915) SpO2: 97 % (01/04 400) O2 Delivery: None (Room Air) (01/04 400) BP: (108-128)/(56-78) Temp: [36.7 C (98 F)-37 C (98.6 F)] Pulse: [96-106] Respirations: [12 PER MINUTE-22 PER MINUTE] SpO2: [96 %-98 %] O2 Delivery: None (Room Air) Intensity Pain Scale 0-10 (Pain 1): (not recorded) Stool Occurrence: 1 General: Awake, follows conversation, nods for understanding, NAD HEENT: Neck supple, no JVD Pulmonary: diminished breath sounds in bases, no R/R/W, unlabored Cardiovascular: RRR, no M/R/G Abdomen: Soft, ND, NTTP, +BS. PEG in place in LUQ. No erythema, no tenderness. Extremities: No C/C/E Neuro: Grossly intact Skin: Warm and dry Intake/Output Summary (Last 24 hours) at 01/03/17 0826 Last data filed at 01/03/17 0500 Gross per 24 hour Intake 1210.67 ml Output 1370 ml Net -159.33 ml Stool Occurrence: 1 Scheduled Medications: docusate (COLACE) oral solution 100 mg 100 mg PEG Tube BID doxazosin (CARDURA) tablet 2 mg 2 mg PEG Tube QDAY heparin (porcine) PF syringe 5,000 Units 5,000 Units Subcutaneous Q8H insulin aspart (NOVOLOG FLEXPEN) injection PEN 0-7 Units 0-7 Units Subcutaneous 5 X Day levETIRAcetam (KEPPRA) oral solution 500 mg 500 mg PEG Tube BID milk of magnesia (CONC) oral suspension 10 mL 10 mL PEG Tube QDAY senna/docusate (SENOKOT-S) solution 10 mL 10 mL PEG Tube BID PRN Medications: acetaminophen 650 mg PEG Tube Q4H PRN calcium gluconate IVPB 1 g Intravenous PRN (General Merchandise Salesperson from Rx) hydrALAZINE 10-20 mg Intravenous Q6H PRN HYDROcodone/acetaminophen 1-2 tablet Oral Q4H PRN magnesium sulfate 1 g Intravenous PRN ondansetron 4 mg Intravenous Q6H PRN pancrelipase 20,000 Units/ sodium bicarbonate 650 mg(#) 1 capsule Feeding Tube PRN (General Merchandise Salesperson from Rx) potassium chloride SR 40 mEq Oral PRN Or potassium chloride 40 mEq Per NG tube PRN Or potassium chloride 10 mEq Intravenous PRN Current Infusions: lactated ringers infusion Stopped (01/03/17 0600) Glucose Monitoring: POC Glucose (Download): (!) 116 (01/02/170) Recent Laboratory Studies: Recent Labs 01/01/17 0507 01/02/17 0459 HGB 9.8* 11.0* HCT 29.0* 33.1* WBC 10.0 11.7* PLTCT 269 301 NA 146 149* K 3.9 3.9 CL 113* 114* CO2 27 25 BUN 32* 33* CR 0.66 0.73 GLU 195* 153* CA 8.7 9.1 MG 2.6 2.7* PO4 3.5 4.5* Karri Rai DO Pager: [phone] Associated attestation - Jong Hankins MD - 01/04/2017 11:45 PM CDT Formatting of this note may be different from the original. ATTESTATION I personally performed the de anda portions of the E/M visit, discussed case with Dr. Rai and the surgery team on 01/03/17 and concur with the documentation of history, physical exam, assessment, and treatment plan unless otherwise noted ; however, due to clinical responsibilities and volume, the computer documentation is being completed in a delayed fashion. Jong Hankins MD Trauma/Critical Care/General Surgery [phone] * Calvin Lundberg DO - 01/02/2017 6:11 PM CDT ACS PEG usage: ok to use PEG for meds now. Tube feeds ok starting at 1800 on . Tamika [id number] * Alesha Patton, VANESSA - 01/02/2017 4:45 PM CDT Pt. Transferred to OR with transport via cart. VS stable. Ticket to ride provided and report given to SUPERVISOR FUR FLOOR WORKER. Gurvinder Mclaughlin - 01/02/2017 3:56 PM CDT SPEECH-LANGUAGE PATHOLOGY NO TREATMENT NOTE The patient was not seen due to: Pt NPO for procedure (PEG placement) later this date. Will f/u 01/05. Therapist: SUZANNE Perez, CF-C IRON WORKER [phone] Date: 01/02/2017 * Jasmyne Avendaño OT - 01/02/2017 3:54 PM CDT OCCUPATIONAL THERAPY PROGRESS NOTE Admitting Diagnosis: large left front hematoma Hemorrhagic stroke (HCC) Patient seen x1 this date. Documentation reflects all daily treatment sessions. Mobility Progressive Mobility Level: Sit on edge of bed Level of Assistance: Assist X1 Assistive Device: Hand Held Time Tolerated: 11-30 minutes Activity Limited By: Change in vital signs;Fatigue Objective Psychosocial Status: Willing and Cooperative to Participate Persons Present: Spouse ADL's Where Assessed: Edge of Bed Grooming Assist: Total Assist Grooming Deficits: Wash/Dry Face;Wash/Dry Hands Comment: Total assist for bed mobility, maximum assist for static sitting balance at edge of bed 2* to pt purposefully attempting to lie back down repeatedly. With OT sitting to pt's L, pt washed face and hands, hand over hand to use dominant affected RUE. When mitt removed from LUE pt automatically reaching with it to retrieve washcloth, still requiring max assist to functionally use for handwashing. Returned to supine 2* to HR increased to 131. Assist X2 to reposition in bed. Mitt restraint replaced. Further Evaluation Goals Pt Will Tolerate Further ADL Evaluation: w/in 3-5 sessions Pt Will Tolerate Further UE Status Evaluation: w/in 3-5 sessions Pt Will Tolerate Further Visual Evaluation: w/in 3-5 sessions ADL Goals Other ADL Goal 1: Patient will tolerate sitting at EOB x10 mins with moderate assist to participate in ADLs. Discharge Recommendations: an inpatient setting Equipment Recommendations: Too early to be determined Therapist: Jasmyne Avendaño OT Date: 01/02/2017 * Kyle Christensen - 01/02/2017 10:43 AM CDT PHYSICAL THERAPY PROGRESS NOTE MOBILITY: Mobility Progressive Mobility Level: Walk in room Distance Walked (feet): 20 ft Level of Assistance: Assist X2 Assistive Device: Hand Held Time Tolerated: 0-10 minutes Activity Limited By: Change in vital signs SUBJECTIVE: Subjective Significant hospital events: 66 y.o. female PMH TIA, dementia, osteoporosis, arthritis, chronic back pain, admitted to [facility] with ICH on 12/22/16. Mental / Cognitive Status: Cooperative;Inconsistent with Command Following;Alert Pain: Patient demonstrates no signs of pain Pain Interventions: Patient agrees to participate in therapy;Patient assisted into position of comfort Comments: Patient was more lethargic today. It took the patient 3-5 minutes to open her eyes for therapy. She was unable to follow any verbal commands to to being aphasic. She was unable to mimic actions either. She was able to complete more automatic task like standing up or walking. BED MOBILITY/TRANSFERS: Bed Mobility/Transfers Bed Mobility: Rolling: Maximum Assist Bed Mobility: Sit to Supine: Moderate Assist;Requires Extra Time Transfer Type: Sit to Stand Transfer: Assistance Level: To/From;Bed;Moderate Assist Transfer: Assistive Device: Hand Hold Assist Transfers: Type Of Assistance: Verbal Cues;Knees(s) Blocked;For Balance;For Strength Deficit;For Safety Considerations End Of Activity Status: Up in Chair;Nursing Notified;Instructed Patient to Request Assist with Mobility;Instructed Patient to Use Call Light BALANCE: Balance Sitting Balance: Static Sitting Balance;1 UE Support;Minimal Assist Standing Balance: Static Standing Balance;2 UE support;Moderate Assist GAIT: Gait Gait Distance: 20 feet Gait: Assistance Level: Minimal Assist;x2 People Gait: Assistive Device: Hand Hold Assist Gait: Descriptors: Pace: Slow;Loss of balance;Variable step length (narrow base of support) Comments: Patient was inconsistent with command following. When weight shifting the patient during ambulation she would at times swing her foot back and forth or take a step backwards. The patient needed verbal cues for stepping forward with the correct foot and quick weight shifting to keep her moving forward. Patient needed minimal physical assistance for weightshifting her body while ambulating. ACTIVITY/EXERCISE: Activity / Exercise Comments: patient's HR with activity was in the 140s. Decided to end exercise when patient's HR reached upper 140s EDUCATION: Education Persons Educated: Patient/Family Patient Barriers To Learning: Decreased Alertness;Impaired Communication Interventions: Repetition of Instructions Teaching Methods: Verbal Instruction Patient Response: More Instruction Required Topics: Plan/Goals of PT Interventions;Recommend Continued Therapy ASSESSMENT/PROGRESS: Assessment/Progress Impaired Mobility Due To: Decreased Strength;Impaired Balance;Cognitive Deficits ;Decreased Activity Tolerance;Safety Concerns Assessment/Progress: Should Improve w/ Continued PT GOALS: Goals Goal Formulation: With Patient Time For Goal Achievement: 5 days, To, 7 days Pt Will Go Sit to Supine : w/ Moderate Assist Pt Will Logroll: w/ Moderate Assist Pt Will Transfer Bed/Chair: w/ Moderate Assist, w/ Assist of 2 Pt Will Transfer Sit to Stand: w/ Maximum Assist, w/ Assist of 2 PLAN: Plan Treatment Interventions: Strengthening;Mobility Training;Balance Activities Plan Frequency: 5 Days per Week Comments: continue ambulation and decrease assist with transfers RECOMMENDATIONS: PT Discharge Recommendations PT Discharge Recommendations: Inpatient Setting Therapist: Kyle Christensen, SPT Date: 01/02/2017 Associated attestation - Donna Luque, PT - 01/02/2017 11:33 AM CDT I was present and involved in directing the care of the patient throughout the physical therapy session. * Karri Rai, DO - 01/02/2017 8:26 AM CDT Formatting of this note may be different from the original. Acute Care Surgery Progress Note 01/02/2017 Patient: Roxy Phillip Admission date 12/22/2016, LOS: 11 days ASSESSMENT Roxy Phillip is a 66 y.o. 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 - care per primary team - will need abdominal binder and fung connected to G-tube after surgery; tube needs to remain on dependent drainage - meds can be passed through G-tube 12 hours post op, feeds at 24 hours post placement Discussed plan of care with Dr. Hernandez SUBJECTIVE: No acute events overnight. Pain well controlled. Patient alert this am and able to state her name. OBJECTIVE: Vital Signs: Last Filed Vital Signs: 24 Hour Range BP: 106/50 (01/02 0400) Temp: 36.7 C (98 F) (01/02 040) Pulse: 104 (01/02 0400) Respirations: 15 PER MINUTE (01/01 1600) SpO2: 97 % (01/03 400) O2 Delivery: None (Room Air) (01/03 400) BP: (105-115)/(49-67) Temp: [36.7 C (98 F)-36.9 C (98.5 F)] Pulse: [99-116] Respirations: [15 PER MINUTE-19 PER MINUTE] SpO2: [97 %-99 %] O2 Delivery: None (Room Air) Intensity Pain Scale 0-10 (Pain 1): (not recorded) Stool Occurrence: 1 General: Awake, follows conversation, nods for understanding, NAD HEENT: Neck supple, no JVD Pulmonary: diminished breath sounds in bases, no R/R/W, unlabored Cardiovascular: RRR, no M/R/G Abdomen: Soft, ND, NTTP, +BS Extremities: No C/C/E Neuro: Grossly intact Skin: Warm and dry Intake/Output Summary (Last 24 hours) at 01/02/17825 Last data filed at 01/02/17399 Gross per 24 hour Intake 778 ml Output 610 ml Net 168 ml Stool Occurrence: 1 Scheduled Medications: docusate (COLACE) oral solution 100 mg 100 mg Per [place] Tube BID doxazosin (CARDURA) tablet 2 mg 2 mg Per NG tube QDAY insulin aspart (NOVOLOG FLEXPEN) injection PEN 0-7 Units 0-7 Units Subcutaneous 5 X Day levETIRAcetam (KEPPRA) oral solution 500 mg 500 mg Per [place] Tube BID milk of magnesia (CONC) oral suspension 10 mL 10 mL Per [place] Tube QDAY senna/docusate (SENOKOT-S) solution 10 mL 10 mL Per [place] Tube BID PRN Medications: acetaminophen 650 mg Per NG tube Q4H PRN calcium gluconate IVPB 1 g Intravenous PRN (General Merchandise Salesperson from Rx) hydrALAZINE 10-20 mg Intravenous Q6H PRN HYDROcodone/acetaminophen 1-2 tablet Oral Q4H PRN magnesium sulfate 1 g Intravenous PRN ondansetron 4 mg Intravenous Q6H PRN pancrelipase 20,000 Units/ sodium bicarbonate 650 mg(#) 1 capsule Feeding Tube PRN (General Merchandise Salesperson from Rx) potassium chloride SR 40 mEq Oral PRN Or potassium chloride 40 mEq Per NG tube PRN Or potassium chloride 10 mEq Intravenous PRN Current Infusions: Glucose Monitoring: Glucose: (!) 153 (01/02/17458) POC Glucose (Download): (!) 182 (01/01/172031) Recent Laboratory Studies: Recent Labs 12/31/16 0525 01/01/17 0507 01/02/17458 HGB 9.8* 9.8* 11.0* HCT 28.9* 29.0* 33.1* WBC 10.3 10.0 11.7* PLTCT 226 269 301 NA 146 146 149* K 3.5 3.9 3.9 CL 113* 113* 114* CO2 26 27 25 BUN 27* 32* 33* CR 0.64 0.66 0.73 GLU 130* 195* 153* CA 8.7 8.7 9.1 MG 2.3 2.6 2.7* PO4 3.5 3.5 4.5* Karri Rai DO Pager: [phone] * Nicole Miller, RD - 01/01/2017 3:31 PM CDT CLINICAL NUTRITION Clinical Nutrition Follow-Up Summary Nutrition Assessment of Patient: Malnutrition Assessment: Malnutrition present Malnutrition Context: ICD-10 code E43: Chronic illness/Severe malnutrition Estimated Calorie Needs: 7464-6197 (28-30 kcal/kg dry wt 55.4kg) Estimated Protein Needs: 65-75 (1.2-1.4g/kg dry wt 55.4kg) Oral Diet Order: NPO 3 day Average Intake (calories) Daily Average : 838 kilocalories Intake (protein) Daily Average : 38 grams female w/ PMH including dementia, chronic back pain, TIA; transferred to [facility] 12/22 with large left frontal parenchymal hemorrhage on AC Plavix and ASA for hx TIA 3 mos ago. NPO on room air; to OR for drain placement 12/24. Planned to have PEG placed tomorrow( cancelled today due to patient lethargic in procedure area) . Meets criteria for severe malnutrition in chronic illness. Isosource 1.5 EN feeds started per NGT 12/25. 3 day EN ave 12/29- met 55% min kcal goal and 58% min protein goal. Pt tolerating EN at goal rate at time of visit today. Last noted BM 12/28, large/loose. Recommendation: Continue current EN as ordered. Once PEG placed, if continuous feeds tolerated at goal and bolus feeds desired would Reccomend 250ml (1 can) Isosource 1.5; 4 times daily. Reccomend minimum of 30ml water flush before and after each feeds. Additional fluids per MD Intervention / Plan: Will monitor EN tolerance/adequacy, labs, weight trends, i/os Nutrition Diagnosis: Nutrition Diagnosis: Altered GI function Etiology: swallowing deficits with AMS;stroke Signs & Symptoms: NPO with EN feeds Goals: Initiate nutrition Time Frame: Within 24 Hours Status: Met;new goal established EN tolerated and meeting >85% of nutritional needs Time Frame: Within 5 Days Nicole Miller MS, RD, LD *[id number] * Carrie Pack, OT - 01/01/2017 2:24 PM CDT OCCUPATIONAL THERAPY PROGRESS NOTE Admitting Diagnosis: large left front hematoma Hemorrhagic stroke (HCC) Patient seen x1 this date. Documentation reflects all daily treatment sessions. Mobility Progressive Mobility Level: Active transfer to chair Level of Assistance: Assist X2 Assistive Device: Hand Held Time Tolerated: 0-10 minutes Activity Limited By: Fatigue;Weakness Subjective Pertinent Dx per Physician: 66 y.o. female PMH TIA, dementia, osteoporosis, arthritis, chronic back pain, admitted to [facility] with Left frontal IPH on . Patient to OR for hematoma evacuation and EVD placement on 12/24. Precautions: Falls Pain / Complaints: Patient demonstrates no signs of pain Objective Psychosocial Status: Willing and Cooperative to Participate Persons Present: RN;Spouse ADL's Where Assessed: Chair Grooming Assist: Maximum Assist Grooming Deficits: Wash/Dry Face;Brushing Hair Functional Transfer Assist: Supine to Sit: Maximum Assist; Sit to Stand: Minimal Assist x2;Transfer to chair: Minimal Assist x2 Comment: Patient's HR ranged between 118-130 during session. Patient seated in chair at end of session, TABS alarm on. UE AROM Comment: Patient squeezed with Right hand one time but unable to replicate. Education Persons Educated: Patient Barriers To Learning: Cognitive Deficits Interventions: Repetition of Instructions;Physical Cueing Teaching Methods: Verbal Instruction;Demonstration Patient Response: Return Demonstration;More Instruction Required Topics: Role of OT, Goals for Therapy;ADL Compensatory Techniques Goal Formulation: With Patient Assessment Assessment: Decreased ADL Status;Decreased Safe/Judg during ADL;Decreased Cognition;Decreased Endurance;Decreased Self-Care Trans Prognosis: Fair;w/Cont OT s/p Acute Discharge Plan Treatment Interventions: ADL Retraining;Functional Transfer Training;Endurance Training;Cognitive Reorientation;Patient/Family Training;Neuromuscular Reeducation;Compensatory Technique Education OT Frequency: 5x/week Next Session: Activity tolerance, progressive ADLs Further Evaluation Goals Pt Will Tolerate Further ADL Evaluation: w/in 3-5 sessions Pt Will Tolerate Further UE Status Evaluation: w/in 3-5 sessions Pt Will Tolerate Further Visual Evaluation: w/in 3-5 sessions ADL Goals Other ADL Goal 1: Patient will tolerate sitting at EOB x10 mins with moderate assist to participate in ADLs. Discharge Recommendations: an inpatient setting Equipment Recommendations: Too early to be determined Therapist: Carrie Pack, LELANDR/Bharati 0271 Date: 01/01/2017 * Guvrinder Galicia - 01/01/2017 11:53 AM CDT SPEECH-LANGUAGE PATHOLOGY SPEECH-LANGUAGE ASSESSMENT EVALUATION SUMMARY Summary* Summary: Speech-language evaluation completed on this date. Pt demonstrates moderate auditory comprehension and moderate-severe verbal expression deficits. Question impact of apraxia on pt's performance. Yes/no questions not considered to be consistent and/or reliable at this time. Pt's spouse present during evaluation. Education provided to spouse re: speech-language recommendations and treatment plan. RECOMMENDATIONS: Consistent supervision recommended upon discharge as anticipate patient's impaired communication will impact their ability to call for help. Please use short and simple phrases with increased processing time and repetition as needed Prognosis: Fair, Good Plan: Continue Treatment 3-5x/week , Patient Would Benefit from Further Speech Therapy Post Acute Hospitalization. Results Reported to Physician: Yes AUDITORY COMPREHENSION Comments*: Pt able to follow one step commands w/ 20% accuracy w/ max cues. Pt answering simple and biographical y/n questions w/ 60% accuracy. Question impact of apraxia on pt's performance. Pt unable to identify items (pictures or objects) w/ verbal presentation of the word from C IRON WORKER w/ max cues. VERBAL EXPRESSION Comments*: Pt able to count 1-5 w/ 60% accuracy w/ max (visual, verbal, tactile ) cues. Pt demonstrates inconsistent spontaneous 1- to 3-word responses in conversation (e.g., "I do too", "you got it"). Pt unable to complete close- ended sentence completion or confrontation naming tasks. READING COMPREHENSION Comments*: Pt able to read single words w/ 20% accuracy w/ max cues. Pt w/ inconsistently able to read 3 to 4 word sentences aloud. Unable to determine whether pt demonstrating comprehension of read materials. WRITTEN EXPRESSION Comments: Unable to complete written expression tasks on this date. Objective* Relevant Med Background: 66 y.o. female with large left frontal intraparenchymal hemorrhage on ASA/Plavix. MRI: 1. Severely motion limited examination without obvious change in size of the large left frontal parenchymal hemorrhage or subtle intraventricular extension. 2. No obvious enhancing lesion or abnormal vascular flow voids. 3. 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 Lives With: Spouse Receives Help From: None Needed Psychosocial Status: Willing and Cooperative to Participate Persons Present: Spouse Subjective* Pain: Patient demonstrates no signs of pain (Simultaneous filing. User may not have seen previous data.) Trach Presence: No Feeding Tube Present During Eval: [employer] Education* Persons Educated: Pt/Family Barriers To Learning: Impaired Communication, Decreased Alertness, Cognitive Deficits Interventions: Family Educated, Staff Educated Teaching Methods: Verbal Topics: Aphasia, Dysphagia Patient Response: More Instruction Required Goal Formulation: With Pt/Family Speech Language Goals* Goal : Pt will answer y/n questions w/ 75% accuracy w/ moderate cues. Goal : Pt will follow 1-step commands w/ 60% accuracy w/ max cues. Goal : Pt will name objects w/ 40% accuracy w/ max cues. Therapist: SUZANNE Perez, CF-C IRON WORKER [id number] Date: 01/01/2017 * Kyle Christensen - 01/01/2017 11:05 AM CDT Formatting of this note may be different from the original. PHYSICAL THERAPY PROGRESS NOTE MOBILITY: Mobility Progressive Mobility Level: Stand Level of Assistance: Assist X1 Assistive Device: Hand Held Time Tolerated: 0-10 minutes Activity Limited By: Change in vital signs SUBJECTIVE: Subjective Significant hospital events: 66 y.o. female PMH TIA, dementia, osteoporosis, arthritis, chronic back pain, admitted to [facility] with ICH on 12/22/16 Mental / Cognitive Status: Cooperative;Inconsistent with Command Following;Alert Pain: Patient demonstrates no signs of pain Pain Interventions: Patient agrees to participate in therapy;Patient assisted into position of comfort BED MOBILITY/TRANSFERS: Bed Mobility/Transfers Bed Mobility: Rolling: Maximum Assist Bed Mobility: Sit to Supine: Moderate Assist;Requires Extra Time Transfer Type: Sit to Stand Transfer: Assistance Level: To/From;Bed;Moderate Assist Transfer: Assistive Device: Hand Hold Assist Transfers: Type Of Assistance: Verbal Cues;Knees(s) Blocked;For Balance;For Strength Deficit;For Safety Considerations End Of Activity Status: In Bed;Nursing Notified;Instructed Patient to Request Assist with Mobility;Instructed Patient to Use Call Light BALANCE: Balance Sitting Balance: Static Sitting Balance;1 UE Support;Moderate Assist Standing Balance: Static Standing Balance;2 UE support;Moderate Assist ACTIVITY/EXERCISE: Activity / Exercise Comments: patient's vitals increased a concerning amout going from sit to stand ; sat the patient back down to rest but her HR stayed in the 130s. On second sit to stand the patients HR elevated to 148bpm. We sat back down and positioned the patient into a position of comfort in her bed. Her vitals returned to normal within 5 minutes. Vital signs Position Heart rate Blood pressure Pre- Activity 118bpm 112/60 During Activity 148bpm 125/44 Post-activity 116bpm 111/53 EDUCATION: Education Persons Educated: Patient/Family Patient Barriers To Learning: Decreased Alertness;Impaired Communication Interventions: Repetition of Instructions Teaching Methods: Verbal Instruction Patient Response: More Instruction Required Topics: Plan/Goals of PT Interventions;Recommend Continued Therapy ASSESSMENT/PROGRESS: Assessment/Progress Impaired Mobility Due To: Decreased Strength;Impaired Balance;Cognitive Deficits ;Decreased Activity Tolerance;Safety Concerns Assessment/Progress: Should Improve w/ Continued PT GOALS: Goals Goal Formulation: With Patient Time For Goal Achievement: 5 days, To, 7 days Pt Will Go Sit to Supine : w/ Moderate Assist Pt Will Logroll: w/ Moderate Assist Pt Will Transfer Bed/Chair: w/ Moderate Assist, w/ Assist of 2 Pt Will Transfer Sit to Stand: w/ Maximum Assist, w/ Assist of 2 PLAN: Plan Treatment Interventions: Strengthening;Mobility Training;Balance Activities Plan Frequency: 5 Days per Week Comments: continue ambulation and decrease assist with transfers RECOMMENDATIONS: PT Discharge Recommendations PT Discharge Recommendations: Inpatient Setting Therapist: KATIE Phillips Date: 01/01/2017 Associated attestation - Donna Luque PT - 01/01/2017 12:50 PM CDT I was present and involved in directing the care of the patient throughout the physical therapy session. * Gurvinder Galicia - 01/01/2017 11:02 AM CDT SPEECH-LANGUAGE PATHOLOGY DAILY TREATMENT NOTE Patient seen 1x this date. Documentation reflects all daily treatment sessions. SUMMARY OF THERAPY SESSION: Daily dysphagia treatment completed. Severe oropharyngeal dysphagia persists characterized by weakness and lethargy due to recent CVA complicated by aphasia and possible apraxia. Pt w/ slightly increased alertness on this date. Pt inconsistently able to follow oral motor commands (20% of the time). Pt presented w/ moist oral swabs, ice chips x2, thin liquids via spoon x6, nectar thick liquids via spoon x2, w/ no overt s/s of aspiration. Pt inconsistently w/ spontaneous responses to C IRON WORKER questions w/ 1 - to 3-word responses. Able to elicit voice on command x1 during the session. Speech-language evaluation completed on this date. Please see separate note for more details. Pt's spouse present during session. Education provided to spouse re: treatment plan. RECOMMENDATIONS: Remain NPO at this time due to waxing and waning alertness w/ continued use of Corpak. Meds via Corpak. Anticipate need for custodial alternative source of nutrition. Excellent oral care. Ongoing dysphagia assessment and treatment. Goal : Pt will participate in ongoing dysphagia assessment and treatment. Met Comment: Pt presented w/ moist oral swabs for oral care, ice chips, and thin and nectar thick liquids via spoon. Pt able to withdraw and form boluses w/o difficulty. Slowed mastication of ice chips noted. AP transfer appeared delayed. No oral residue noted. Swallow initiation appeared delayed and laryngeal elevation reduced. No overt s/s of aspiration noted. Multiple swallows noted per thin and nectar thick liquid bolus (2-3) indicating pharyngeal retention due to weakness from recent CVA. Due to pt's waxing and waning alertness, recommend pt remain NPO. Continue to address this goal PLAN / RECOMMENDATIONS: Continue treatment 3-5x/week and Patient would benefit from further speech therapy post acute hospitalization. Therapist: SUZANNE Perez, CF-C IRON WORKER [phone] Date: 01/01/2017 * Elen Styles RN - 12/31/2016 6:51 PM CDT PEG tube placement cancelled 2/2 patient too lethargic in procedural area. Upon arrival patient alert and sitting up in bed. Orders received to restart tube feeding. Possible PEG placement rescheduled for Thursday. Will monitor. * Lilliana White, VANESSA - 12/31/2016 6:16 PM CDT At 1816 pt left to Unit with transport with a warm blanket on and accompanying. Due to the surgery being cancelled the care plan could not be completed, the care preop could not be completed. Thus, the verification could not be done. * Mitra Trinh RN - 12/31/2016 5:25 PM CDT 1720: Upon arrival to preop, patient's mental status was in question. Dr. Rosenbaum with anesthesia ordered a neurosurgery consult. Spoke with Dr. Lionel Salvador with neurosurgery via telephone. Preop RN described to Dr. Salvador that patient is slow to wake up, hard to keep stimulated, cannot speak, and does not follow commands but does engage with her eyes once she opens them and is able to move both legs and left arm. Dr. Salvador explained that preop assessment was consistent with her baseline and is okay to proceed with surgery at this time from their perspective. Despite their recommendation Dr. Hernandez wishes to reschedule surgery. Patient's informed and agrees with decision. 1740: Update report called to VANESSA Myrick. Will continue to monitor patient until transport arrives. * Gurvinder Galicia - 12/31/2016 3:23 PM CDT SPEECH-LANGUAGE PATHOLOGY DAILY TREATMENT NOTE Patient seen 1x this date. Documentation reflects all daily treatment sessions. SUMMARY OF THERAPY SESSION: Daily dysphagia treatment completed. Severe oropharyngeal dysphagia persists characterized by weakness and lethargy due to recent CVA complicated by aphasia and possible apraxia. Pt w/ slightly increased alertness on this date. Pt still unable to follow oral motor commands. Pt presented w/ moist oral swabs, ice chips x2, thin liquids via spoon x4 w/ no overt s/s of aspiration. Pt rarely w/ spontaneous responses to C IRON WORKER questions w/ 1- or 2-word responses ("yeah", "pretty good"). Unable to elicit voice, cough, or throat clear on command. No family present during session. RECOMMENDATIONS: Remain NPO at this time due to waxing and waning alertness and lethargy w/ continued use of Corpak. Meds via Corpak. Anticipate need for custodial alternative source of nutrition. Excellent oral care. Ongoing dysphagia assessment and treatment. Goal : Pt will participate in ongoing dysphagia assessment and treatment. Met Comment: Pt presented w/ moist oral swabs for oral care, ice chips, and thin liquids via spoon. Pt unable to follow oral motor commands but opens mouth to presentation of oral swabs and spoon for bolus retrieval. Slowed mastication of ice chips noted. AP transfer appeared delayed. No oral residue noted. Swallow initiation appeared delayed and laryngeal elevation reduced. No overt s/s of aspiration noted. Multiple swallows noted per bolus (2-3) indicating pharyngeal retention due to weakness from recent CVA. Due to pt's waxing and waning alertness and lethargy, recommend pt remain NPO. Continue to address this goal PLAN / RECOMMENDATIONS: Continue treatment 3-5x/week and Patient would benefit from further speech therapy post acute hospitalization. Therapist: SUZANNE Perez, CF-C IRON WORKER [phone] Date: 12/31/2016 * Elen Styles RN - 12/31/2016 2:20 PM CDT Pt. Tolerated transfer back to chair with assist x 2. Will monitor. * Kyle Christensen - 12/31/2016 2:08 PM CDT PHYSICAL THERAPY PROGRESS NOTE MOBILITY: Mobility Progressive Mobility Level: Walk in room Distance Walked (feet): 10 ft Level of Assistance: Assist X2 Assistive Device: Hand Held Time Tolerated: 0-10 minutes Activity Limited By: Mental Status Variability SUBJECTIVE: Subjective Significant hospital events: 66 y.o. female PMH TIA, dementia, osteoporosis, arthritis, chronic back pain, admitted to [facility] with ICH on 12/22/16. Mental / Cognitive Status: Cooperative;Inconsistent with Command Following;Alert Pain: Patient demonstrates no signs of pain Pain Interventions: Patient agrees to participate in therapy;Patient assisted into position of comfort BED MOBILITY/TRANSFERS: Bed Mobility/Transfers Bed Mobility: Sit to Supine: Moderate Assist;Requires Extra Time Transfer Type: Sit to Stand Transfer: Assistance Level: To/From;Bed;x2 People;Moderate Assist Transfer: Assistive Device: Hand Hold Assist Transfers: Type Of Assistance: Verbal Cues;Knees(s) Blocked;For Balance;For Strength Deficit;For Safety Considerations Other Transfer Type: Stand to Sit Other Transfer: Assistance Level: To;Bed Side Chair;Standby Assist Other Transfer: Assistive Device: None Other Transfer: Type Of Assistance: For Safety Considerations;For Strength Deficit End Of Activity Status: Up in Chair;Nursing Notified;Instructed Patient to Request Assist with Mobility;Instructed Patient to Use Call Light BALANCE: Balance Sitting Balance: Static Sitting Balance;1 UE Support;Moderate Assist GAIT: Gait Gait Distance: 10 feet Gait: Assistance Level: Minimal Assist;x2 People Gait: Assistive Device: Hand Hold Assist Gait: Descriptors: Pace: Slow;Loss of balance;Variable step length Comments: patient needed verbal cues for stepping with the correct foot. Patient needed minimal physical assistance for weight shifting her body while ambulating. Activity Limited By: Weakness ACTIVITY/EXERCISE: Activity / Exercise Stand At Bedside : 2 minutes Stand At Bedside Assist: Maximum Assist Comments: Before exercise patient's BP was 114/54 and her HR was in the 110s. After standing one time her BP decreased to 95/80 with her HR elevating to 130s. At the end of exercise with the patient in her bed side chair patient's BP was 118/58, with her HR in the 90s. EDUCATION: Education Persons Educated: Patient/Family Patient Barriers To Learning: Decreased Alertness;Impaired Communication Interventions: Repetition of Instructions Teaching Methods: Verbal Instruction Patient Response: More Instruction Required Topics: Plan/Goals of PT Interventions;Recommend Continued Therapy ASSESSMENT/PROGRESS: Assessment/Progress Impaired Mobility Due To: Decreased Strength;Impaired Balance;Cognitive Deficits ;Decreased Activity Tolerance;Safety Concerns Assessment/Progress: Should Improve w/ Continued PT GOALS: Goals Goal Formulation: With Patient Time For Goal Achievement: 5 days, To, 7 days Pt Will Go Sit to Supine : w/ Moderate Assist Pt Will Logroll: w/ Moderate Assist Pt Will Transfer Bed/Chair: w/ Moderate Assist, w/ Assist of 2 Pt Will Transfer Sit to Stand: w/ Maximum Assist, w/ Assist of 2 PLAN: Plan Treatment Interventions: Strengthening;Mobility Training;Balance Activities Plan Frequency: 5 Days per Week Comments: continue ambulation and decrease assist with transfers RECOMMENDATIONS: PT Discharge Recommendations PT Discharge Recommendations: Inpatient Setting Therapist: Kyle Christensen, SPT Date: 12/31/2016 Associated attestation - Donna Luque PT - 12/31/2016 3:20 PM CDT I was present and involved in directing the care of the patient throughout the physical therapy session. * Adam Nicholson MD - 12/31/2016 10:33 AM CDT Formatting of this note may be different from the original. Acute Care Surgery Progress Note 12/31/2016 Patient: Roxy Phillip Admission date 12/22/2016, LOS: 9 days ASSESSMENT Roxy Phillip is a 66 y.o. Female with Intraparenchymal hemorrhage of brain (HCC) [I61.9] Dysphagia [R13.10] Principal Problem: Dysphagia Active Problems: Nontraumatic cortical hemorrhage of left cerebral hemisphere (HCC) Dementia TIA (transient ischemic attack) Chronic back pain Intraparenchymal hemorrhage of brain (HCC) Hyperglycemia PLAN: - OR today for PEG tube placement. Pt and her consented, posted. - care per primary team - will need abdominal binder and fung connected to G-tube after surgery; tube needs to remain to drain - meds can be passed through G-tube 12 hours post op, feeds 24 hours - ACS will continue to follow Discussed plan of care with Dr. Hernandez SUBJECTIVE: No acute events overnight. Pain well controlled. Pt and present for discussion regarding surgery OBJECTIVE: Vital Signs: Last Filed Vital Signs: 24 Hour Range BP: 112/43 (12/31 0800) Temp: 36.9 C (98.4 F) (01/01 800) Pulse: 98 (12/31 0000) Respirations: 17 PER MINUTE (01/01 800) SpO2: 98 % (01/01 800) O2 Delivery: None (Room Air) (01/01 800) BP: (104-115)/(41-64) Temp: [36.9 C (98.4 F)-37.8 C (100.1 F)] Pulse: [90-116] Respirations: [15 PER MINUTE-23 PER MINUTE] SpO2: [96 %-98 %] O2 Delivery: None (Room Air) Intensity Pain Scale 0-10 (Pain 1): (not recorded) Stool Occurrence: 1 General: Awake, follows conversation, nods for understanding, NAD HEENT: Neck supple, no JVD Pulmonary: diminished breath sounds in bases, no R/R/W, unlabored Cardiovascular: RRR, no M/R/G Abdomen: Soft, ND, NTTP, +BS Extremities: No C/C/E Neuro: Grossly intact Skin: Warm and dry Intake/Output Summary (Last 24 hours) at 12/31/16 1034 Last data filed at 12/31/16 0800 Gross per 24 hour Intake 827 ml Output 1005 ml Net -178 ml Stool Occurrence: 1 Scheduled Medications: docusate (COLACE) oral solution 100 mg 100 mg Per [employer] Tube BID doxazosin (CARDURA) tablet 2 mg 2 mg Per NG tube QDAY heparin (porcine) PF syringe 5,000 Units 5,000 Units Subcutaneous Q8H insulin aspart (NOVOLOG FLEXPEN) injection PEN 0-7 Units 0-7 Units Subcutaneous 5 X Day levETIRAcetam (KEPPRA) oral solution 500 mg 500 mg Per [employer] Tube BID milk of magnesia (CONC) oral suspension 10 mL 10 mL Per [employer] Tube QDAY senna/docusate (SENOKOT-S) solution 10 mL 10 mL Per [employer] Tube BID sodium chloride(#) inj for po solution 34 mEq 34 mEq Per NG tube TID PRN Medications: acetaminophen 650 mg Per NG tube Q4H PRN albuterol 0.5% 2.5 mg Inhalation Q4H PRN calcium gluconate IVPB 1 g Intravenous PRN (General Merchandise Salesperson from Rx) hydrALAZINE 10-20 mg Intravenous Q6H PRN HYDROcodone/acetaminophen 1-2 tablet Oral Q4H PRN magnesium sulfate 1 g Intravenous PRN ondansetron 4 mg Intravenous Q6H PRN pancrelipase 20,000 Units/ sodium bicarbonate 650 mg(#) 1 capsule Feeding Tube PRN (General Merchandise Salesperson from Rx) potassium chloride SR 40 mEq Oral PRN Or potassium chloride 40 mEq Per NG tube PRN Or potassium chloride 10 mEq Intravenous PRN Current Infusions: Glucose Monitoring: FSBS (Manual): (!) 134 (12/31/1654) Glucose: (!) 130 (12/31/16 0525) POC Glucose (Download): (!) 134 (12/31/16852) Recent Laboratory Studies: Recent Labs 12/28/16 1309 12/28/16 1618 12/28/16 2153 12/29/16 0423 12/29/16 1655 12/30/16 0337 12/31/16 0525 HGB -- -- -- 10.5* -- 9.8* 9.8* HCT -- -- -- 30.9* -- 28.4* 28.9* WBC -- -- -- 8.9 -- 9.6 10.3 PLTCT -- -- -- 186 -- 218 226 NA -- 152* 147 144 142 141 146 K 4.1 -- -- 3.9 -- 4.0 3.5 CL -- -- -- 112* -- 111* 113* CO2 -- -- -- 26 -- 24 26 BUN -- -- -- 21 -- 27* 27* CR -- -- -- 0.60 -- 0.69 0.64 GLU -- -- -- 156* -- 200* 130* CA -- -- -- 8.3* -- 8.3* 8.7 MG 2.2 -- -- 2.2 -- 2.2 2.3 PO4 -- -- -- 3.5 -- 4.3* 3.5 Adam Nicholson MD Pager: [phone] * Carrie Pack, OT - 12/31/2016 10:29 AM CDT OCCUPATIONAL THERAPY PROGRESS NOTE Admitting Diagnosis: large left front hematoma Hemorrhagic stroke (HCC) Patient seen x1 this date. Documentation reflects all daily treatment sessions. Mobility Progressive Mobility Level: Walk in room Distance Walked (feet): 20 ft Level of Assistance: Assist X2 Assistive Device: Hand Held Time Tolerated: 11-30 minutes Activity Limited By: Change in vital signs;Fatigue Subjective Pertinent Dx per Physician: 66 y.o. female PMH TIA, dementia, osteoporosis, arthritis, chronic back pain, admitted to [facility] with Left frontal IPH on . Patient to OR for hematoma evacuation and EVD placement on 12/24. Precautions: Falls Pain / Complaints: Patient demonstrates no signs of pain Objective Psychosocial Status: Willing and Cooperative to Participate Persons Present: Electrician Office ADL's Where Assessed: Standing at Sink Grooming Assist: Maximum Assist Grooming Deficits: Wash/Dry Face;Brushing Hair Functional Transfer Assist: Minimal Assist x2 Functional Transfer Deficits: Room mobility w/ hand held assist Comment: Patient ambulated to sink, stood at sink but putting head down, pale skin. BP assessed, 85/49 (MAP 58), HR 129. Patient seated in chair for several mins prior to ambulating back to bedside chair. Patient HR up to 136 during ambulating. BP after sitting in chair 104/63 (MAP 70), HR 118. Patient remained seated in chair at end of session, TABS alarm on. Activity Tolerance Endurance: 0/5 Tolerates <10 Minutes Exercise W/Changes in Vital Signs Cognition Overall Cognitive Status: Impaired Cognition Comment: Patient stated "good morning" and "ok" during session. Followed commands with cues. Education Persons Educated: Patient Barriers To Learning: Cognitive Deficits Interventions: Repetition of Instructions;Physical Cueing Teaching Methods: Verbal Instruction;Demonstration Patient Response: Return Demonstration;More Instruction Required Topics: Role of OT, Goals for Therapy;ADL Compensatory Techniques Goal Formulation: With Patient Assessment Assessment: Decreased ADL Status;Decreased Safe/Judg during ADL;Decreased Cognition;Decreased Endurance;Decreased Self-Care Trans Prognosis: Fair;w/Cont OT s/p Acute Discharge Plan Treatment Interventions: ADL Retraining;Functional Transfer Training;Endurance Training;Cognitive Reorientation;Patient/Family Training;Neuromuscular Reeducation;Compensatory Technique Education OT Frequency: 5x/week Further Evaluation Goals Pt Will Tolerate Further ADL Evaluation: w/in 3-5 sessions Pt Will Tolerate Further UE Status Evaluation: w/in 3-5 sessions Pt Will Tolerate Further Visual Evaluation: w/in 3-5 sessions ADL Goals Other ADL Goal 1: Patient will tolerate sitting at EOB x10 mins with moderate assist to participate in ADLs. Discharge Recommendations: an inpatient setting Equipment Recommendations: Too early to be determined Therapist: Carrie Pack OTR/Bharati [id number] Date: 12/31/2016 * Mattie Quiroz, PT - 12/30/2016 10:50 AM CDT PHYSICAL THERAPY PROGRESS NOTE MOBILITY: Mobility Progressive Mobility Level: Walk in room Distance Walked (feet): 30 ft Level of Assistance: Assist X2 Assistive Device: Hand Held Time Tolerated: 11-30 minutes Activity Limited By: Weakness;Change in vital signs SUBJECTIVE: Subjective Significant hospital events: 66 y.o. female PMH TIA, dementia, osteoporosis, arthritis, chronic back pain, admitted to [facility] with ICH on 12/22/16. Mental / Cognitive Status: Cooperative;Inconsistent with Command Following; Alert (aphasic) Persons Present: OT Pain: Patient demonstrates no signs of pain Pain Interventions: Patient agrees to participate in therapy;Patient assisted into position of comfort Ambulation Assist: Independent Mobility at Household Level without Device Patient Owned Equipment: Roller Walker Home Situation: Lives with Family Type of Home: House Entry Stairs: 3-5 Stairs In-Home Stairs: No Stairs BED MOBILITY/TRANSFERS: Bed Mobility/Transfers Bed Mobility: Supine to Sit: Moderate Assist;x2 People;Assist with Trunk;Assist with B LE;Head of Bed Elevated Transfer Type: Sit to Stand Transfer: Assistance Level: To/From;Bed;Toilet;Minimal Assist;x2 People Transfer: Assistive Device: Hand Hold Assist Transfers: Type Of Assistance: Verbal Cues;Knees(s) Blocked;For Balance;For Strength Deficit;For Safety Considerations End Of Activity Status: Up in Chair;Nursing Notified;Instructed Patient to Request Assist with Mobility;Instructed Patient to Use Call Light (TABs alarm activated) Comments: Recommend staff nurse anesthetist perform stand pivot transfer with 2 person assist if able, other nance total body lift sling under patient. BALANCE: Balance Sitting Balance: Static Sitting Balance;Dynamic Sitting Balance;1 UE Support; Minimal Assist;Maximal Assist GAIT: Gait Gait Distance: 15 feet (x2 to/from bathroom) Gait: Assistance Level: Minimal Assist;x2 People Gait: Assistive Device: Hand Hold Assist Gait: Descriptors: Pace: Slow;Loss of balance;Variable step length Activity Limited By: Complaint of Fatigue;Weakness Comments: Patient's heart rate up to 150 bpm with activity. ACTIVITY/EXERCISE: Activity / Exercise Sit Edge Of Bed: 15 minutes Sit Edge Of Bed Assist: Minimal Assist (occasional right sided trunk LOB ) EDUCATION: Education Persons Educated: Patient/Family Patient Barriers To Learning: Decreased Alertness;Impaired Communication Interventions: Repetition of Instructions Teaching Methods: Verbal Instruction Patient Response: More Instruction Required Topics: Plan/Goals of PT Interventions;Recommend Continued Therapy ASSESSMENT/PROGRESS: Assessment/Progress Impaired Mobility Due To: Decreased Strength;Impaired Balance;Cognitive Deficits ;Decreased Activity Tolerance;Safety Concerns Assessment/Progress: Should Improve w/ Continued PT GOALS: Goals Goal Formulation: With Family, Patient Unable to Participate in Goal Setting Time For Goal Achievement: 5 days, To, 7 days Pt Will Go Sit to Supine : w/ Moderate Assist Pt Will Logroll: w/ Moderate Assist Pt Will Transfer Bed/Chair: w/ Moderate Assist, w/ Assist of 2 Pt Will Transfer Sit to Stand: w/ Maximum Assist, w/ Assist of 2 PLAN: Plan Treatment Interventions: Strengthening;Mobility Training;Balance Activities Plan Frequency: 5 Days per Week Comments: continue ambulation and decrease assist with transfers RECOMMENDATIONS: PT Discharge Recommendations PT Discharge Recommendations: Inpatient Setting Therapist: Mattie Quiroz, PT Date: 12/30/2016 * Carrie Pack, OT - 12/30/2016 10:45 AM CDT OCCUPATIONAL THERAPY PROGRESS NOTE Admitting Diagnosis: large left front hematoma Hemorrhagic stroke (HCC) Patient seen x1 this date. Documentation reflects all daily treatment sessions. Mobility Progressive Mobility Level: Walk in room Distance Walked (feet): 30 ft Level of Assistance: Assist X2 Assistive Device: Hand Held Time Tolerated: 11-30 minutes Activity Limited By: Weakness;Change in vital signs Subjective Pertinent Dx per Physician: 66 y.o. female PMH TIA, dementia, osteoporosis, arthritis, chronic back pain, admitted to [facility] with Left frontal IPH on . Patient to OR for hematoma evacuation and EVD placement on 12/24. Precautions: Falls Pain / Complaints: Patient demonstrates no signs of pain Objective Psychosocial Status: Willing and Cooperative to Participate Persons Present: PT Home Living Type of Home: House ADL's Where Assessed: In Bathroom Grooming Assist: Maximum Assist Grooming Deficits: Wash/Dry Face;Brushing Hair (Patient held onto washcloth and wiped eyes when hand over hand assist to bring to face) Functional Transfer Assist: Minimal Assist x2 Functional Transfer Deficits: Toilet Transfer;Room mobility w/ hand held assist Comment: Patient tolerated sitting at EOB x10 mins. Patient ambulated to toilet and back to chair. Remained seated in chair at end of session. TABS alarm on and total body lift sling in place to assist w/ transfer back to bed as needed. Cognition Overall Cognitive Status: Impaired Cognition Comment: Patient more alert and engaged this date, mumbled some, nodded head inconsistently. Patient followed commands inconsistently, improved with cues and demonstration. Education Persons Educated: Patient Barriers To Learning: Cognitive Deficits Interventions: Repetition of Instructions;Physical Cueing Teaching Methods: Verbal Instruction;Demonstration Patient Response: Return Demonstration;More Instruction Required Topics: Role of OT, Goals for Therapy;ADL Compensatory Techniques Goal Formulation: With Patient Assessment Assessment: Decreased ADL Status;Decreased Safe/Judg during ADL;Decreased Cognition;Decreased Endurance;Decreased Self-Care Trans Prognosis: Fair;w/Cont OT s/p Acute Discharge Plan Treatment Interventions: ADL Retraining;Functional Transfer Training;Endurance Training;Cognitive Reorientation;Patient/Family Training;Neuromuscular Reeducation;Compensatory Technique Education OT Frequency: 5x/week Further Evaluation Goals Pt Will Tolerate Further ADL Evaluation: w/in 3-5 sessions Pt Will Tolerate Further UE Status Evaluation: w/in 3-5 sessions Pt Will Tolerate Further Visual Evaluation: w/in 3-5 sessions ADL Goals Other ADL Goal 1: Patient will tolerate sitting at EOB x10 mins with moderate assist to participate in ADLs. Discharge Recommendations: an inpatient setting Equipment Recommendations: Too early to be determined Therapist: HENRY James/Bharati [id number] Date: 12/30/2016 * Gurvinder Galicia - 12/30/2016 9:09 AM CDT SPEECH-LANGUAGE PATHOLOGY DAILY TREATMENT NOTE Patient seen 1x this date. Documentation reflects all daily treatment sessions. SUMMARY OF THERAPY SESSION: Daily dysphagia treatment completed. Severe oropharyngeal dysphagia persists characterized by weakness and lethargy due to recent CVA complicated by aphasia and possible apraxia. Pt w/ slightly increased alertness on this date. Pt still unable to follow oral motor commands. Pt presented w/ moist oral swabs, ice chips x3, thin liquids via spoon x2 w/ no overt s/s of aspiration. Pt rarely w/ spontaneous responses to C IRON WORKER questions w/ 1- or 2-word responses ("yeah", "pretty good"). Unable to elicit voice, cough, or throat clear on command. No family present during session. RECOMMENDATIONS: Remain NPO at this time due to waxing and waning alertness and lethargy w/ continued use of Corpak. Meds via Corpak. Anticipate need for termite control technician alternative source of nutrition. Excellent oral care. Ongoing dysphagia assessment and treatment. Goal : Pt will participate in ongoing dysphagia assessment and treatment. Not addressed Comment: Pt presented w/ moist oral swabs for oral care, ice chips, and thin liquids via spoon. Pt unable to follow oral motor commands but opens mouth to presentation of oral swabs and spoon for bolus retrieval. Slowed mastication of ice chips noted. AP transfer appeared delayed. No oral residue noted. Swallow initiation appeared delayed and laryngeal elevation reduced. No overt s/s of aspiration noted. Due to pt's waxing and waning alertness and lethargy, recommend pt remain NPO. Continue to address this goal PLAN / RECOMMENDATIONS: Continue treatment 3-5x/week and Patient would benefit from further speech therapy post acute hospitalization. Therapist: SUZANNE Perez, CF-C IRON WORKER [phone] Date: 12/30/2016 * Iwona Woo APRN - 12/30/2016 7:24 AM CDT Formatting of this note may be different from the original. Neuro Critical Care Progress Note Roxy Phillip Admission Date: 12/22/2016 LOS: 8 days Full Code ASSESSMENT/PLAN Patient Active Problem List Diagnosis Date Noted Hyperglycemia 12/29/2016 Nontraumatic cortical hemorrhage of left cerebral hemisphere (HCC) 2016 Dementia 12/23/2016 TIA (transient ischemic attack) 12/23/2016 Chronic back pain 12/23/2016 Intraparenchymal hemorrhage of brain (HCC) 12/22/2016 Added automatically from request for surgery [id number] Roxy Phillip is a 66 y.o. female with PMH TIA, dementia, osteoporosis, arthritis, chronic back pain, who was admitted to with ICH on 12/22/16. Hospital and ICU course: 12/22: admitted to NICU 12/23: Overnight neuro exam without patient following commands, more lethargic, repeat CT head with minimal changes 12/24: No acute changes overnight, plan OR for drain placement per neurosurgery 12/25: SB with pauses improved with nasal trumpet for obstruction. EVD pulled back per NS. CT improved 12/26: EVD flushed per NS 12/27: No acute events, nasal trumpet in place, continue aggressive pulmonary toilet. 12/28: No acute events overnight 12/29: No events overnight, EVD out, DC 2% today w/ goal of normonatremia. IR Angio today 12/30: To floor Neuro: ICH (2)- s/p OR for evacuation and EVD placement 12/24; Hx of TIA and dementia - 12/29 EVD removed - 12/29 Angio negative for specific bleed source - PO salt 34 meq TID, goal normonatremia - Na 140 - Keppra 500 mg BID - Holding PNEUMATIC DEICER INSPECTOR Plavix (placed on after TIA)- will discuss with primary team about resuming ASA Plavix Sedation/Pain Management: Hx of Chronic back pain - PRN tylenol, hydrocodone and fentanyl if needed - Assess for delirium daily Cardiac: - troponin negative, EKG without ischemia - SBP goal:<160 - PRN hydralazine available Respiratory: - Good pulmonary toilet: turn, cough, deep breathe, use of IS. Mobilize when able - Q4 hr and PRN PD&V - PRN Albuterol GI: - Feeding: NPO - Isosource 1.5 at 45=goal ml/hr per corpak - neurosurgery bowel regimen, ensure daily BM (last 12/27) Heme: - hold PTAPlavix and ASA- will discuss with primary when able to resume - Hgb 9.8, Plt 218 - daily CBC - Subq heparin resumed ID: - Tmax 37.7 - WBC 9.6 - 12/26 Head cultures sent - Urine unremarkable - No sputum sampled - 12/26 1 blood culture positive STAPHYLOCOCCUS, COAGULASE NEGATIVE , probable contaminant 12/27- Procal negative - 12/24 C-diff Neg - Will continue to monitor Renal: - BUN/Cr 27/0.69 - Aim for normovolemia - Doxazosin 2mg daily - Bladder scan protocol Endocrine: Hyperglycemia - A1c 5.2 - Glucose 200 this AM - LDCF- 5 units over 24 hours - Blood glucose goal 100-180mg/dl FEN: - Magnesium goal >2.0, i-Kris goal > 1.0, Potassium goal >4.0 mEq/L - Electrolyte replacement protocol Prophylaxis Review: A )GI: No B) Lines:PIVs C) Urinary Catheter: No, straight cath D) Antibiotic Usage:No E) VTE:Subq Heparin; Sequential compression device F) Isolation:none G) Seizures:keppra I) Restraints: Patient assessed for need for restraints. Disposition/Family:Stable to floor Primary service:NSG Consults: NEICU, Rehab medicine SUBJECTIVE Roxy Phillip is a 66 y.o. female. Overnight Events: No new events noted. OBJECTIVE Vital Signs: Last Filed Vital Signs: 24 Hour Range BP: 107/45 (12/30 699) Temp: 36.7 C (98 F) (12/31 399) Pulse: 76 (12/30 699) Respirations: 24 PER MINUTE (12/30 699) SpO2: 93 % (12/30 699) O2 Delivery: None (Room Air) (12/30 699) Weight: 55.2 kg (121 lb 11.1 oz) (12/31 399) BP: (86-139)/(34-81) Temp: [36.7 C (98 F)-37.9 C (100.2 F)] Pulse: [76-128] Respirations: [13 PER MINUTE-39 PER MINUTE] SpO2: [93 %-100 %] O2 Delivery: None (Room Air) Intensity Pain Scale 0-10 (Pain 1): (not recorded) Vitals: 12/28/16 0400 12/29/16 0400 12/30/16399 Weight: 55.6 kg (122 lb 9.2 oz) 56.1 kg (123 lb 10.9 oz) 55.2 kg (121 lb 11.1 oz ) Lines: Peripheral Line Drains: Nasogastric tube: + mL Intake/Output Summary: (Last 24 hours) Intake/Output Summary (Last 24 hours) at 12/30/16 0705 Last data filed at 12/30/16 0400 Gross per 24 hour Intake 595 ml Output 1196 ml Net -601 ml Stool Occurrence: 1 Physical Exam: Blood pressure 107/45, pulse 76, temperature 36.7 C (98 F), height 154.9 cm (61"), weight 55.2 kg (121 lb 11.1 oz), SpO2 93 %. Oxford coma score: E: 4 - Opens eyes on own M: 5 - Pushes away noxious stimulus V: 1 - Makes no noise Neuro: Mental Status: Awake. Tracks examiner with eyes otherwise no interaction. Does not follow commands. Moves all limbs spontaneously left>right Cranial Nerves: - Pupil exam: Size: 3 Reactivity: Brisk - EOM: Intact Motor: RUE: Strength: 1/5; few spontaneous movements RLE: Strength: 3/5; spontaneous LUE: Strength: 3/5; spontaneous LLE: Strength: 3/5; spontaneous Sensory: responds briskly to noxious in all extremities Lungs: Diminished bases Pulmonary: Respiratory status: Stable Heart: regular rate and rhythm, S1, S2 normal, no murmur, click, rub or gallop Abdomen: soft, non-tender. Bowel sounds normal. No masses, no organomegaly Extremities: extremities normal, atraumatic, no cyanosis or edema Skin: Skin color, texture, turgor normal. No rashes or lesions Point of Care Testing: (Last 24 hours) Glucose: (!) 200 (12/30/16 0337) POC Glucose (Download): (!) 196 (12/30/16 0327) Lab Review: Pertinent labs reviewed Radiology and Other Diagnostic Procedures Review: Pertinent radiologic and diagnostic procedures reviewed. Iwona Woo, SURGICAL ELASTIC KNITTER Date: 12/30/[phone] I spent 40 minutes managing the care of this patient. Mrs Phillip is in stable condition with L frontal IPH and IVH (12/22) s/p crani and evacuation of hematoma and drain placement (12/24). Cares included: detailed neurologic and systems exam, medication review, laboratory data review and interpretation, electrolyte management, review of available imaging, DVT/PE prophylaxis review, diet review , activity review, and coordination of care with consulted teams. * Navjot Martinez RN - 12/30/2016 4:12 AM CDT Pt neuro exam change. Pt more lethargic and opens eyes to vigorous stimulation. BP 88/49 and still has tachypnea. Neurosurgery notified. Doppler venous bilateral ordered. Will continue to monitor. * Navjot Martinez RN - 12/30/2016 2:39 AM CDT Formatting of this note may be different from the original. 12/30/16 0200 Critical Care Vitals Adult Pulse (!) 128 Pulse Source Monitored Monitored Rhythm ST PVC / Minute 0 /min. Respirations (!) 35 PER MINUTE SpO2 Pulse (!) 128 SpO2 97 % O2 Delivery RA BP 90/49 Mean NBP (Calculated) 63 MM HG BP Source Arm, Left BP Method Automatic BP Patient Position HOB NEICU notified of vital signs. Ordered to give 25mcg of fentanyl. Will continue to monitor * Navjot Martinez RN - 12/30/2016 1:23 AM CDT Formatting of this note may be different from the original. 12/30/16 0100 Critical Care Vitals Adult Pulse 117 Pulse Source Monitored Monitored Rhythm ST PVC / Minute 0 /min. Respirations (!) 39 PER MINUTE SpO2 Pulse (!) 117 SpO2 97 % O2 Delivery RA BP 110/50 Mean NBP (Calculated) 63 MM HG Pt HR elevated in the 110s and RR in the upper 30s, neuro exam a little more lethargic. NEICU notfied. Ordered to give tylenol for possible pain and reassess. Will continue to monitor. * Natalie Platt, RN - 12/29/2016 7:[address] Sultana related to MAP <60. No new orders. Passed on to awake overnight counselor nurse. Will continue to monitor closely. * Anh Ponce, PT - 12/29/2016 3:50 PM CDT PHYSICAL THERAPY PROGRESS NOTE MOBILITY: Mobility Progressive Mobility Level: Active transfer to chair Level of Assistance: Assist X2 Assistive Device: Hand Held Time Tolerated: 11-30 minutes Activity Limited By: Mental Status Variability;Weakness SUBJECTIVE: Subjective Significant hospital events: 66 y.o. female PMH TIA, dementia, osteoporosis, arthritis, chronic back pain, admitted to [facility] with ICH on 12/22/16. Mental / Cognitive Status: Lethargic;Cooperative;Inconsistent with Command Following Persons Present: OT Pain: Patient demonstrates no signs of pain Pain Interventions: Patient agrees to participate in therapy;Patient assisted into position of comfort Ambulation Assist: Independent Mobility at Household Level without Device Patient Owned Equipment: Roller Walker Home Situation: Lives with Family Type of Home: House Entry Stairs: 3-5 Stairs In-Home Stairs: No Stairs BED MOBILITY/TRANSFERS: Bed Mobility/Transfers Bed Mobility: Supine to Sit: Dependent Assist;x2 People;Assist with B LE;Assist with Trunk Transfer Type: Squat Pivot Transfer: Assistance Level: From;Bed;To;Bed Side Chair;Dependent Assist;x2 People Transfer: Assistive Device: None Transfers: Type Of Assistance: Verbal Cues;Knees(s) Blocked;For Balance;For Strength Deficit;For Safety Considerations Other Transfer Type: Sit to Stand Other Transfer: Assistance Level: From;Bed;Dependent Assist;x2 People Other Transfer: Assistive Device: None Other Transfer: Type Of Assistance: Verbal Cues;Knees(s) Blocked;For Balance; For Strength Deficit;For Safety Considerations;Requires Extra Time End Of Activity Status: Up in Chair;Nursing Notified;Instructed Patient to Request Assist with Mobility;Instructed Patient to Use Call Light (TABs alarm activated) Comments: Patient performed one sit to stand transfer to/from bed prior to squat pivot transfer to chair. BALANCE: Balance Sitting Balance: Static Sitting Balance;Dynamic Sitting Balance;1 UE Support; Minimal Assist;Maximal Assist ACTIVITY/EXERCISE: Activity / Exercise Sit Edge Of Bed: 8 minutes Sit Edge Of Bed Assist: Variable;Minimal Assist;Maximum Assist Comments: Patient tolerated sitting edge of bed for ~8 minutes with variable assist needed to achieve and maintain midline posture. Patient completed self care tasks with assist from OT. EDUCATION: Education Persons Educated: Patient/Family Patient Barriers To Learning: Decreased Alertness;Impaired Communication Interventions: Repetition of Instructions Teaching Methods: Verbal Instruction Patient Response: More Instruction Required Topics: Plan/Goals of PT Interventions;Recommend Continued Therapy ASSESSMENT/PROGRESS: Assessment/Progress Impaired Mobility Due To: Decreased Strength;Impaired Balance;Cognitive Deficits ;Decreased Activity Tolerance;Safety Concerns Assessment/Progress: Should Improve w/ Continued PT GOALS: Goals Goal Formulation: With Family, Patient Unable to Participate in Goal Setting Time For Goal Achievement: 5 days, To, 7 days Pt Will Go Sit to Supine : w/ Moderate Assist Pt Will Logroll: w/ Moderate Assist Pt Will Transfer Bed/Chair: w/ Moderate Assist, w/ Assist of 2 Pt Will Transfer Sit to Stand: w/ Maximum Assist, w/ Assist of 2 PLAN: Plan Treatment Interventions: Strengthening;Mobility Training Plan Frequency: 5 Days per Week Comments: Progress bed mobility and sitting edge of bed balance. Continue to work on transfer to chair RECOMMENDATIONS: PT Discharge Recommendations PT Discharge Recommendations: Inpatient Setting Equipment Recommendations: Too early to be determined Therapist: Anh Ponce, PT Date: 12/29/2016 * Carrie Pack, OT - 12/29/2016 3:50 PM CDT OCCUPATIONAL THERAPY PROGRESS NOTE Admitting Diagnosis: large left front hematoma Hemorrhagic stroke (HCC) Patient seen x1 this date. Documentation reflects all daily treatment sessions. Mobility Progressive Mobility Level: Active transfer to chair Level of Assistance: Assist X2 Assistive Device: Hand Held Time Tolerated: 11-30 minutes Activity Limited By: Mental Status Variability;Weakness Subjective Pertinent Dx per Physician: 66 y.o. female PMH TIA, dementia, osteoporosis, arthritis, chronic back pain, admitted to [facility] with Left frontal IPH on . Patient to OR for hematoma evacuation and EVD placement on 12/24. Precautions: Falls Pain / Complaints: Patient demonstrates no signs of pain Objective Persons Present: PT ADL's Where Assessed: Edge of Bed Grooming Assist: Maximum Assist Grooming Deficits: Wash/Dry Face Functional Transfer Assist: Total Assist x2 Functional Transfer Deficits: Supine to Sit;Sit to Stand;Squat Pivot Comment: Patient seated in chair at end of session, TABS alarm on. Total body sling in place to assist with transfer back to bed. Activity Tolerance Sitting Balance: Variable: Minimal to maximum Assist Cognition Overall Cognitive Status: Impaired Assessment Assessment: Decreased ADL Status;Decreased Safe/Judg during ADL;Decreased Cognition;Decreased Endurance;Decreased Self-Care Trans Prognosis: Fair;w/Cont OT s/p Acute Discharge Plan Treatment Interventions: ADL Retraining;Functional Transfer Training;Endurance Training;Cognitive Reorientation;Patient/Family Training;Neuromuscular Reeducation;Compensatory Technique Education OT Frequency: 5x/week Further Evaluation Goals Pt Will Tolerate Further ADL Evaluation: w/in 3-5 sessions Pt Will Tolerate Further UE Status Evaluation: w/in 3-5 sessions Pt Will Tolerate Further Visual Evaluation: w/in 3-5 sessions ADL Goals Other ADL Goal 1: Patient will tolerate sitting at EOB x10 mins with moderate assist to participate in ADLs. Discharge Recommendations: an inpatient setting Equipment Recommendations: Too early to be determined Therapist: Carrie Pack, OTR/L [id number] Date: 12/29/2016 * Gurvinder Galicia - 12/29/2016 3:15 PM CDT SPEECH-LANGUAGE PATHOLOGY DAILY TREATMENT NOTE Patient seen 1x this date. Documentation reflects all daily treatment sessions. SUMMARY OF THERAPY SESSION: Daily dysphagia treatment completed. Severe oropharyngeal dysphagia characterized by weakness, lethargy, and reduced arousal due to recent CVA. Pt not responding to multi-modal sensory stimulation. No PO trials provided on this date due to reduced arousal. Do not anticipate changes in pt's swallow function in near future. No family present during session. RECOMMENDATIONS: Remain NPO at this time w/ continued use of Corpak. Meds via Corpak. Anticipate need for custodial alternative source of nutrition. Excellent oral care. Ongoing dysphagia assessment and treatment. Goal : Pt will participate in ongoing dysphagia assessment and treatment. Not addressed Comment: No PO trials or oral care presented due to pt's lethargy and reduced arousal. Continue to address this goal PLAN / RECOMMENDATIONS: Continue treatment 3-5x/week and Patient would benefit from further speech therapy post acute hospitalization. Therapist: SUZANNE Perez, CF-C IRON WORKER [phone] Date: 12/29/2016 * Shantal Lopez, SERVANDO - 12/29/2016 2:25 PM CDT CLINICAL NUTRITION Clinical Nutrition Follow-Up Summary Nutrition Assessment of Patient: Malnutrition Assessment: Malnutrition present Malnutrition Context: ICD-10 code E43: Chronic illness/Severe malnutrition Estimated Calorie Needs: [id number] (28-30 kcal/kg dry wt 55.4kg) Estimated Protein Needs: 65-75 (1.2-1.4g/kg dry wt 55.4kg) Oral Diet Order: NPO Intake (calories) Daily Average : 1409 kilocalories (3 day EN ave 12/26-; 92% min goal) Intake (protein) Daily Average : 64 grams (3 day EN ave 12/26-; 98% min goal) Current EN Order: Isosource 1.5 @ 45 ml/hr per NGT; 1620 kcal, 73 g protein and 820 ml free water. Comment: 66 y.o. female w/ PMH including dementia, chronic back pain, TIA; transferred to [facility] 12/22 with large left frontal parenchymal hemorrhage on AC Plavix and ASA for hx TIA 3 mos ago. NPO on room air; to OR for drain placement 12/24. Meets criteria for severe malnutrition in chronic illness. Isosource 1.5 EN feeds started per NGT 12/25. 3 day EN ave 12/26- met 92% min kcal goal and 98% min protein goal. Pt tolerating EN at goal rate 12/28. EN held today for IR/angio procedure. Last BM 12/28, large/loose. Bowel meds held. Recommendation: When medically able to resume EN, recommend Isosource 1.5 @ 20 ml/hr with goal of 45 ml/hr. At goal to provide 1620 kcal, 73 g protein and 820 ml free water. Additional fluids per primary team. Intervention / Plan: monitor EN restart, tolerance and provision monitor wt trends, labs, meds, GI status Nutrition Diagnosis: Nutrition Diagnosis: Altered GI function Etiology: swallowing deficits with AMS;stroke Signs & Symptoms: NPO with EN feeds Goals: Initiate nutrition Time Frame: Within 24 Hours Status: Met;Ongoing (restart EN within 24 hrs after procedure if medically able) Shantal Lopez, SERVANDO * Natalie Platt RN - 12/29/2016 11:15 AM CDT Patient transported to IR with 2 RNs, VSS. Patient returned to room 905 VSS. Will continue to monitor. * Kendra Huntley MD - 12/29/2016 10:53 AM CDT Formatting of this note may be different from the original. NEURO-ENT ICU Critical Care Progress Note Today's Date: 12/29/2016 Name: Roxy Phillip Admission Date: 12/22/2016 LOS: 7 days ICU problem list: Patient Active Problem List Diagnosis Date Noted Nontraumatic cortical hemorrhage of left cerebral hemisphere (HCC) 2016 Dementia 12/23/2016 TIA (transient ischemic attack) 12/23/2016 Chronic back pain 12/23/2016 Intraparenchymal hemorrhage of brain (HCC) 12/22/2016 Added automatically from request for surgery [id number] ATTESTATION Date of Service: 12/29/2016 I have seen, personally fully evaluated, and discussed patient with the NEURO- ENT ICU team. The patient is critically ill with L frontal IPH and IVH (12/22) s/ p crani and evacuation of hematoma and drain placement (12/24). I spent 50 minutes (excluding time spent performing or supervising any procedures) providing and personally directing critical care services including neuro monitoring and management, respiratory management, pain/sedation/delirium mgt, hemodynamic monitoring and management, lab and radiology review, medication review and management, fluid and electrolyte management and coordination of care. 66 y.o. yo female with PMHx significant for reported h/o TIA (details unknown), dementia, arthritis, osteoporosis, chronic back pain. Neuro -L IPH with IVH, required evacuation and drain placement. To IR today for angio. MRI pending official read. EVD per NSGY. Cont keppra ppx. On 2%, Na goal today is now nl - ok to d/c but cont PO NaCl. Trend sodiums another day. Cont PNEUMATIC DEICER INSPECTOR ASA and plavix. CV - meeting SBP goals without meds. Resp - scheduled and PRN PD&V Urinary retention on admission - doxazosin started yesterday. Cont for now along with fung but can trial it our after IR. Close monitoring with bladder scan protocol. Will discuss appropriate timing of SQ heparin with NSGY Hyperglycemia - due to critical illness as no evidence DM (A1C 5.2). Adequate control with SSI-L. NPO for procedure - will restart after. ID - afebrile, WBC wnl. Renal - no evidence SCOTT. Pls see below for add'l physical exam findings. Dispo: This patient is critically ill with dysfunction of multiple organ systems and is at risk for additional life threatening deterioration. Cont ICU care. Staff name: Mary Huntley MD Date: 12/29/2016 __ Objective: Medications: Scheduled Meds: docusate (COLACE) oral solution 100 mg 100 mg Per Corpak Tube BID doxazosin (CARDURA) tablet 2 mg 2 mg Per NG tube QDAY insulin aspart (NOVOLOG FLEXPEN) injection PEN 0-7 Units 0-7 Units Subcutaneous 5 X Day levETIRAcetam (KEPPRA) oral solution 500 mg 500 mg Per Corpak Tube BID milk of magnesia (CONC) oral suspension 10 mL 10 mL Per Corpak Tube QDAY senna/docusate (SENOKOT-S) solution 10 mL 10 mL Per Corpak Tube BID sodium chloride(#) inj for po solution 34 mEq 34 mEq Per NG tube TID Continuous Infusions: PRN and Respiratory Meds:acetaminophen Q4H PRN, albuterol 0.5% Q4H PRN, calcium gluconate IVPB PRN (General Merchandise Salesperson from Rx) AND Ionized Calcium PRN AND Notify Physician Ongoing, fentaNYL citrate PF Q1H PRN, hydrALAZINE Q6H PRN, HYDROcodone/acetaminophen Q4H PRN, magnesium sulfate PRN AND Magnesium PRN * *AND Notify Physician Ongoing, ondansetron Q6H PRN, pancrelipase 20,000 Units / sodium bicarbonate 650 mg(#) PRN (General Merchandise Salesperson from [employer]), potassium chloride SR PRN OR potassium chloride PRN OR potassium chloride PRN Vital Signs: Last Filed Vital Signs: 24 Hour Range BP: 116/50 (12/29 1044) Temp: 36.7 C (98 F) (12/30 399) Pulse: 92 (12/29 1044) Respirations: 28 PER MINUTE (12/29 1044) SpO2: 96 % (12/29 1044) O2 Delivery: Nasal Cannula (12/29 1044) Weight: 56.1 kg (123 lb 10.9 oz) (12/30 399) BP: (100-132)/(46-70) Temp: [36.7 C (98 F)-36.9 C (98.5 F)] Pulse: [83-112] Respirations: [13 PER MINUTE-37 PER MINUTE] SpO2: [94 %-99 %] O2 Delivery: Nasal Cannula Intensity Pain Scale 0-10 (Pain 1): (not recorded) Vitals: 12/27/16 0400 12/28/16 0400 12/29/16399 Weight: 54.9 kg (121 lb 0.5 oz) 55.6 kg (122 lb 9.2 oz) 56.1 kg (123 lb 10.9 oz ) Intake/Output Summary: (Last 24 hours) Intake/Output Summary (Last 24 hours) at 12/29/16 1053 Last data filed at 12/29/16 0700 Gross per 24 hour Intake 1388 ml Output 1385 ml Net 3 ml Physical Exam: Eyes open spontaneously, tracks and nods slightly to questions, may weakly squeeze L hand to command and wiggle toes on L RRR, no murmur CTA B/L Abd S, NT, +BS Ext warm, no edema Lab Review: Pertinent labs reviewed Point of Care Testing: (Last 24 hours): Glucose: (!) 156 (12/29/16 0423) POC Glucose (Download): (!) 109 (12/29/16 2633) Radiology and Other Diagnostic Procedures Review: Pertinent radiology reviewed. Mary Huntley MD 12/29/2016 Pager: [phone] * Daisy Benitez RN - 12/29/2016 10:18 AM CDT Sedation physician present in room. Recent vitals and patient condition reviewed between sedating physician and nurse. Reassessment completed. Determination made to proceed with planned sedation. * Gurvinder Galicia - 12/29/2016 8:30 AM CDT SPEECH-LANGUAGE PATHOLOGY NO TREATMENT NOTE The patient was not seen due to: Pt NPO for procedure later this am. Per discussion w/ RN, pt intermittently following commands on this date yet remains lethargic w/ decreased alertness. Do not anticipate change in swallow function in near future. Will f/u as pt is available. Attempted to see patient 1 time Therapist: SUZANNE Perez, CF-C IRON WORKER [phone] Date: 12/29/2016 * Ashia Patterson APRN - 12/29/2016 6:48 AM CDT Formatting of this note may be different from the original. 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 EVD pulled back per NS. CT improved 12/26: EVD flushed per NS 12/27: No acute events, nasal trumpet in place, continue aggressive pulmonary toilet. 12/28: No acute events overnight 12/29: No events overnight, Drain remains in place, possibly DC 2% today w/ goal of normonatremia. Will get angio this week to help establish etiology of bleed. Neuro: ICH (2)- s/p OR for evacuation and EVD placement 12/24 Hx of TIA and dementia - 12/27 EVD cathter was pulled back - Possible tPA ? - 2% mixed salt at 20 ml/hr goal normonatremia checks q 6 hours - DC today - PO salt 34 meq TID - Keppra 500 mg BID - Holding PNEUMATIC DEICER INSPECTOR Plavix (placed on after TIA) - Angio this week to evaluate possible sources of bleed 12/[address] Interval retraction of the left frontal approach surgical drain. Minimal increase in the size of the left frontal intraparenchymal hematoma with minimal increase in surrounding edema, stable localized mass effect, and trace left to right frontal midline shift. Improving pneumocephalus. Stable intraventricular blood products. 12/28 CTA Neck Mild mixed plaque in the proximal left internal carotid artery and minimal intimal thickening or soft plaque in the proximal right internal carotid artery. There is no major cervical vascular stenosis or dissection. Sedation/Pain Management: Hx of Chronic back pain - PRN tylenol, hydrocodone and fentanyl if needed - Assess for delirium daily Cardiac: - troponin negative, EKG without ischemia - SBP goal:<160 - PRN hydralazine available Respiratory: -Good pulmonary toilet: turn, cough, deep breathe, use of IS. Mobilize when able - Q4 hr and PRN PD&V - PRN Albuterol GI: - Feeding: NPO - Isosource 1.5 at 45=goal ml/hr per corpak - neurosurgery bowel regimen, ensure daily BM (last 12/27) Heme: -hold PTAPlavix and ASA - Hgb 10.5 plts 186 - daily CBC ID: - Tmax afebrile - WBC 8.9 - 12/26 Head cultures sent - Urine pending final - No sputum sampled -12/26 1 blood culture positive STAPHYLOCOCCUS, COAGULASE NEGATIVE , probable contaminant 12/27- Procal negative - 12/24 C-diff Neg - Will continue to monitor Renal: - BUN/Cr 21/0.60 - Aim for normovolemia - Fung replaced d/t urinary retention Intake/Output Summary (Last 24 hours) at 12/29/16 0708 Last data filed at 12/29/16 0700 Gross per 24 hour Intake 1882 ml Output 1675 ml Net 207 ml Endocrine: Hyperglycemia - Glucose 156 this AM - LDCF - 3 units in last 24 hrs - Blood glucose goal 100-180mg/dl - 134-170 - A1c 5.2 FEN: - 2% infusion mixed salts DC today - Magnesium goal >2.0, i-Kris goal > 1.0, Potassium goal >4.0 mEq/L - Electrolyte replacement protocol Prophylaxis Review: A)GI: No B) Lines:PIVs C) Urinary Catheter:Yes; Fung replaced d/t retention D) Antibiotic Usage:No E) VTE:Mechanical prophylaxis; Sequential compression device F) Isolation:none G)Seizures:keppra I) Restraints: Patient assessed for need for restraints. Disposition/Family:continue ICU care Primary service:NSG Consults: NEJAMESU, Rehab medicine __ SUBJECTIVE Roxy Phillip is a 66 y.o. female. Overnight Events: No new events noted. OBJECTIVE Vital Signs: Last Filed Vital Signs: 24 Hour Range BP: 129/65 (12/29 0600) Temp: 36.7 C (98 F) (12/29 0400) Pulse: 93 (12/29 0600) Respirations: 25 PER MINUTE (12/29 599) SpO2: 97 % (12/29 599) O2 Delivery: None (Room Air) (12/29 599) Weight: 56.1 kg (123 lb 10.9 oz) (12/30 399) BP: (100-132)/(46-70) Temp: [36.7 C (98 F)-36.9 C (98.5 F)] Pulse: [78-112] Respirations: [18 PER MINUTE-37 PER MINUTE] SpO2: [94 %-99 %] O2 Delivery: None (Room Air) Intensity Pain Scale 0-10 (Pain 1): (not recorded) Vitals: 12/27/16 0400 12/28/16 04012/29/16399 Weight: 54.9 kg (121 lb 0.5 oz) 55.6 kg (122 lb 9.2 oz) 56.1 kg (123 lb 10.9 oz ) Artificial airway: None Ventilator/ Respiratory Therapy: No Vent weaning trial: Not applicable Lines: Peripheral Line Drains: Fung Catheter, Nasogastric tube, EVD Scheduled Meds: docusate (COLACE) oral solution 100 mg 100 mg Per [place] Tube BID doxazosin (CARDURA) tablet 2 mg 2 mg Per NG tube QDAY insulin aspart (NOVOLOG FLEXPEN) injection PEN 0-7 Units 0-7 Units Subcutaneous 5 X Day levETIRAcetam (KEPPRA) oral solution 500 mg 500 mg Per [place] Tube BID milk of magnesia (CONC) oral suspension 10 mL 10 mL Per [place] Tube QDAY senna/docusate (SENOKOT-S) solution 10 mL 10 mL Per [place] Tube BID sodium chloride(#) inj for po solution 34 mEq 34 mEq Per NG tube TID Continuous Infusions: sodium mixed salt 2% infusion (NaCl 1%, Na Acetate 1%) 20 mL/hr at 12/28/161953 PRN and Respiratory Meds:acetaminophen Q4H PRN, albuterol 0.5% Q4H PRN, calcium gluconate IVPB PRN (General Merchandise Salesperson from [employer]) AND Ionized Calcium PRN AND Notify Physician Ongoing, fentaNYL citrate PF Q1H PRN, hydrALAZINE Q6H PRN, HYDROcodone/acetaminophen Q4H PRN, magnesium sulfate PRN AND Magnesium PRN * *AND Notify Physician Ongoing, ondansetron Q6H PRN, pancrelipase 20,000 Units / sodium bicarbonate 650 mg(#) PRN (General Merchandise Salesperson from [employer]), potassium chloride SR PRN OR potassium chloride PRN OR potassium chloride PRN Critical Care Vitals: ICP Monitoring: Hemodynamics/Oxycalcs: BP 129/65 (BP Source: Arm, Left) | Pulse 93 | Temp 36.7 C (98 F) | Ht 154.9 cm (61") | Wt 56.1 kg (123 lb 10.9 oz) | SpO2 97% | BMI 23.37 kg/m2 Intake/Output Summary: (Last 24 hours) Intake/Output Summary (Last 24 hours) at 12/29/16 0648 Last data filed at 12/29/16 0600 Gross per 24 hour Intake 1932 ml Output 1781 ml Net 151 ml Stool Occurrence: 1 Physical Exam: Blood pressure 129/65, pulse 93, temperature 36.7 C (98 F), height 154.9 cm (61"), weight 56.1 kg (123 lb 10.9 oz), SpO2 97 %. Osbaldo coma score: E: 4 - Opens eyes on own M: 6 - Follows simple motor commands V: 1 - Makes no noise Neuro: Mental Status:awake, tracks examiner Cranial Nerves: Pupil exam: Size : 4Reactivity: brisk Motor:1/5 right upper, would not follow, some movements 2/5 right lower withdraw to painful stimuli 3/5 left upper moves spontaneous, squeezed hands 3/5 left lower, follows commands Lungs:rhonchi to auscultation bilaterally, diminished in bilateral bases Pulmonary:Respiratory status: stable Heart:regular rate and rhythm, S1, S2 normal Abdomen:soft, non-tender. Bowel sounds normal. Extremities:extremities normal, atraumatic, no cyanosis or edema Skin:Skin color, texture, turgor normal. No rashes or lesions Lab Review: Pertinent labs reviewed Medications: docusate (COLACE) oral solution 100 mg 100 mg Per [place] Tube BID doxazosin (CARDURA) tablet 2 mg 2 mg Per NG tube QDAY insulin aspart (NOVOLOG FLEXPEN) injection PEN 0-7 Units 0-7 Units Subcutaneous 5 X Day levETIRAcetam (KEPPRA) oral solution 500 mg 500 mg Per [place] Tube BID milk of magnesia (CONC) oral suspension 10 mL 10 mL Per [place] Tube QDAY senna/docusate (SENOKOT-S) solution 10 mL 10 mL Per [place] Tube BID sodium chloride(#) inj for po solution 34 mEq 34 mEq Per NG tube TID Point of Care Testing: (Last 24 hours): Glucose: (!) 156 (12/29/16 0423) POC Glucose (Download): (!) 145 (12/29/16 0408) Radiology and Other Diagnostic Procedures Review: all noted I spent 48 minutes managing the care of this patient. Mrs Phillip is critically ill s/p ICH. Cares included: detailed neurologic and systems exam, medication review, laboratory data review and interpretation, electrolyte management, review of available imaging, DVT/PE prophylaxis review, diet review , activity review, and coordination of care with consulted teams. Ashia Patterson, SURGICAL ELASTIC KNITTER Date: 12/29/[phone] * Jaswinder Gaspar MD - 12/29/2016 6:31 AM CDT Formatting of this note may be different from the original. Neurosurgery Progress Note SUBJECTIVE: No acute events overnight. OBJECTIVE: Vital Signs: 24 Hour Range BP: (100-132)/(46-70) Temp: [36.7 C (98 F)-36.9 C (98.5 F)] Pulse: [78-112] Respirations: [18 PER MINUTE-37 PER MINUTE] SpO2: [94 %-99 %] O2 Delivery: None (Room Air) Eyes Open, Tracking examiner PERRL bilateral Moves bilateral lowers spontaneously, R>L Followed commands in left upper (squeeze) and left lower (wiggle toes) extremities minimal movement RUE EVD in place with dressing CDI ASSESSMENT/PLAN: 66 y.o. female with large left frontal intraparenchymal hemorrhage on ASA/ Plavix. 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 Likely start SQH tomorrow if this is the case. Na- 147, On 2% @20, PO salt Keppra PNEUMATIC DEICER INSPECTOR ASA/Plavix held Q1H neurochecks PT/OT inpatient setting (will need rehab consult) ST, NPO SW for DC planning Prophylaxis: A)GI: PPI B) Lines: No C) Urinary Catheter: No D) Antibiotic Usage: No E) VTE: Pharmacological prophylaxis; Contraindication: Bleeding risk; No SQH large ICH with hx of ASA/Plavix and Mechanical prophylaxis; Sequential compression device F) Restraints: Patient assessed for need for restraints. Jaswinder Gaspar MD [id number] Please call [phone] with any questions. * Rommel Cisneros, VANESSA - 12/28/2016 6:31 PM CDT 1815 - Assumed care, nods appropriately, Alert, in no apparent distress. Transported to MRI by this Nurse and Real MENDEZ.Transferred to MRI table, with staff assist, safety precautions observed at all times, tolerated well. 1825 - pt restless on MRI table, Real MENDEZ informed, Fentanyl 25mcg administered as per orders. continuing with care and monitoring. See Flowsheet. . * Fish Barraza RN - 12/28/2016 6:15 PM CDT Patient in MRI with float nurse (VANESSA Carney) at this time. * Marcos Herrmann MD - 12/28/2016 8:40 AM CDT Formatting of this note may be different from the original. Neurointensivist Critical Care Progress Note Today's Date: 12/28/2016 Name: Roxy Phillip Admission Date: 12/22/2016 LOS: 6 days ATTESTATION I have seen, personally fully evaluated this patient. Patient exhibits injury of at least one organ system,and there is high probability of imminent or life threatening deterioration in patient's condition , and hence needs continued medical attention including frequent neurological examination, and frequent vital signs. The patient is admitted to the NSICU with: Left frontal [facility] Hospital and ICU course: 12/22: admitted to NICU 12/23: Overnight neuro exam without patient following commands, more lethargic, repeat CT head with minimal changes 12/24: No acute changes overnight, plan OR for drain placement per neurosurgery 12/25: SB with pauses improved with nasal trumpet for obstruction. EVD pulled back per NS. CT improved 12/26: EVD flushed per NS 12-27-: Drain pulled back with repeat CT PMH: Significant for: Dementia, TIA The patient is critically ill with and is being managed for: Left frontal IPH Cerebral edema Urinary retention dysphagia I spent 35 minutes (excluding time spent performing or supervising any procedures) providing and personally directing critical care services including Detailed neurological and systems examination Assessment of intravascular volume status Optimization of systemic perfusion pressures Insertion and interpretation of Invasive hemodynamic monitoring data Review of and interpretation laboratory data Review of and interpretation of available imaging studies Review of medications Review of antibiotic, drain prophylaxis Review of DVT/PE Prophylaxis Review of seizure prophylaxis Management of patient on mechanical ventilation Electrolyte management and management of endocrine abnormalities Coordination of care with consult teams Active problems currently being addressed include Patient Active Problem List Diagnosis Date Noted 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 female. Overnight Events: No new events noted, sign out obtained from awake overnight counselor person ( nurse and ICU physician). Patient examined: yes Objective: I have reviewed the following medications: Scheduled Meds: docusate (COLACE) oral solution 100 mg 100 mg Per [place] Tube BID insulin aspart (NOVOLOG FLEXPEN) injection PEN 0-7 Units 0-7 Units Subcutaneous 5 X Day levETIRAcetam (KEPPRA) oral solution 500 mg 500 mg Per [place] Tube BID milk of magnesia (CONC) oral suspension 10 mL 10 mL Per [place] Tube QDAY senna/docusate (SENOKOT-S) solution 10 mL 10 mL Per [place] Tube BID sodium chloride(#) inj for po solution 34 mEq 34 mEq Per NG tube TID Continuous Infusions: sodium mixed salt 2% infusion (NaCl 1%, Na Acetate 1%) 50 mL/hr at 12/28/16 0647 PRN and Respiratory Meds:acetaminophen Q4H PRN, calcium gluconate IVPB PRN (General Merchandise Salesperson from [employer]) AND Ionized Calcium PRN AND Notify Physician Ongoing, fentaNYL citrate PF Q1H PRN, hydrALAZINE Q6H PRN, HYDROcodone/acetaminophen Q4H PRN, magnesium sulfate PRN AND Magnesium PRN AND Notify Physician Ongoing, ondansetron Q6H PRN, pancrelipase 20,000 Units/ sodium bicarbonate 650 mg(#) PRN (General Merchandise Salesperson from [employer]), potassium chloride SR PRN OR potassium chloride PRN OR potassium chloride PRN Vital Signs: Last Filed Vital Signs: 24 Hour Range BP: 117/66 (12/29 799) Temp: 36.9 C (98.4 F) (12/29 799) Pulse: 82 (12/29 799) Respirations: 32 PER MINUTE (12/29 799) SpO2: 96 % (12/29 799) O2 Delivery: None (Room Air) (12/29 799) Weight: 55.6 kg (122 lb 9.2 oz) (12/29 399) BP: (103-154)/(46-101) Temp: [36.8 C (98.3 F)-37.6 C (99.7 F)] Pulse: [77-99] Respirations: [15 PER MINUTE-33 PER MINUTE] SpO2: [95 %-99 %] O2 Delivery: None (Room Air) Intensity Pain Scale 0-10 (Pain 1): (not recorded) Vitals: 12/26/16 0400 12/27/16 0400 12/28/16399 Weight: 54.4 kg (119 lb 14.9 oz) 54.9 kg (121 lb 0.5 oz) 55.6 kg (122 lb 9.2 oz ) Critical Care Vitals: ICP Monitoring: PA Catheter: Hemodynamics/Oxycalcs: Assessment and Plan: Neuro: GCS: E4, M5, V1 FOUR score: E4 M3 BR4 R4 Cranial Nerve Deficit: yes Focal motor neurodeficit: yes Need for Sedation: no E/o Delirium: n Need for restraints: no Seizure prophylaxis: yes Steroids: no EVD/Lumbar drain: yes Hypertonics: yes Plan for management of potential cerebral edema: Avoid Dextrose containing solutions, Maintain Na > 140 mEq/ L, Maintain head of bed elevation at least 30 degrees Keep neck in neutral position to optimize venous drainage Maintain normothermia, avoid hypoxemia, [place] appropriate osmotherapy ( i.e mannitol vs Hypertonic saline) PLAN: 1) Left Frontal IPH - EVD drain in place which was purposefully withdrawn today with f/u CT showing no significant change in hematoma, PT/OT/ST , PMR, prophylactic Keppra 500 BID; 2) Cerebral Edema - 2% at 50 cc/hr - can start normalizing Na on 12-29-16 Cardiac: Blood pressure 117/66, pulse 82, temperature 36.9 C (98.4 F), height 154.9 cm (61"), weight 55.6 kg (122 lb 9.2 oz), SpO2 96 %. SBP (transduce arterial line at the tragus) CPP goal > 60 ( In presence of ICP monitor) Need for vasopressors: no Need for anti-hypertensive: n Hemodynamic monitoring/resuscitation : Goals of resuscitation: (in presence of invasive hemodynamic monitors) CPP 65-110 ICP < 20 mmHg SVV < 13% SVI 40-50 CI > 2.4 Lactate < 2 Base deficit < 4 SCVO2 goal > 70% Urine output goal > 0.5 ml/kg/hr PLAN: SBP goal <160 Respiratory: Respiratory status: Stable Need for mechanical ventilation: no Lung protective strategies in place Chest physiotherapy, Incentive spirometry, bronchotherapy, Avoid Hypoxemia, maintain SPO2 > 95% Monitor for and maintain normocapnia in absence of intracranial hypertension PLAN: O2 via nasal cannula prn Endocrine: Monitor for and maintain normoglycemia: target BG 100-180 mg/dl, with use of SSI or insulin infusion Fluid and electrolyte status: Monitor for and maintain Na >140, K > 4, Magnesium > 2, Phosphorus > 2 Maintain normovolemia Maintenance iv fluids 0.9 Saline or 2% saline PLAN: 2% at 50 cc/hr for cerebral edema, Na q6 hours, Na solution 34 mEq TID Heme: Maintain INR < 1.5, Platelet count 80-100 k Maintain Hb > 7 gm% in absence of ongoing cerebral ischemia Infectious Disease: Maintain normothermia, need for surveillance cultures, antibiotics reviewed Medications: reviewed Sepsis surveillance Imaging: CXR/Neuroimaging: reviewed Radiology and Other Diagnostic Procedures Reviewed Lab Review: 24-hour labs: Results for orders placed or performed during the hospital encounter of (from the past 24 hour(s)) SODIUM Collection Time: 12/27/16 10:43 AM Result Value Ref Range Sodium 148 (H) 137 - 147 MMOL/L PROCALCITONIN Collection Time: 12/27/16 10:43 AM Result Value Ref Range Procalcitonin <0.05 <0.10 NG/ML SODIUM Collection Time: 12/27/16 4:39 PM Result Value Ref Range Sodium 145 137 - 147 MMOL/L POC GLUCOSE Collection Time: 12/27/16 5:53 PM Result Value Ref Range Glucose, POC 135 (H) 70 - 100 MG/DL POC GLUCOSE Collection Time: 12/27/16 9:00 PM Result Value Ref Range Glucose, POC 151 (H) 70 - 100 MG/DL SODIUM Collection Time: 12/27/16 11:04 PM Result Value Ref Range Sodium 142 137 - 147 MMOL/L BASIC METABOLIC PANEL Collection Time: 12/28/16 3:35 AM Result Value Ref Range Sodium 143 137 - 147 MMOL/L Potassium 3.5 3.5 - 5.1 MMOL/L Chloride 109 98 - 110 MMOL/L CO2 27 21 - 30 MMOL/L Anion Gap 7 3 - 12 Glucose 175 (H) 70 - 100 MG/DL Blood Urea Nitrogen 20 7 - 25 MG/DL Creatinine 0.60 0.4 - 1.00 MG/DL Calcium 8.5 8.5 - 10.6 MG/DL eGFR Non >60 >60 mL/min eGFR >60 >60 mL/min CBC AND DIFF Collection Time: 12/28/16 3:35 AM Result Value Ref Range White Blood Cells 9.5 4.5 - 11.0 K/UL RBC 3.78 (L) 4.0 - 5.0 M/UL Hemoglobin 11.4 (L) 12.0 - 15.0 GM/DL Hematocrit 34.9 (L) 36 - 45 % MCV 92.3 80 - 100 FL MCH 30.3 26 - 34 PG MCHC 32.8 32.0 - 36.0 G/DL RDW 15.7 (H) 11 - 15 % Platelet Count 218 150 - 400 K/UL MPV 8.0 7 - 11 FL Neutrophils 74 41 - 77 % Lymphocytes 19 (L) 24 - 44 % Monocytes 6 4 - 12 % Eosinophils 1 0 - 5 % Basophils 0 0 - 2 % Absolute Neutrophil Count 7.00 1.8 - 7.0 K/UL Absolute Lymph Count 1.80 1.0 - 4.8 K/UL Absolute Monocyte Count 0.60 0 - 0.80 K/UL Absolute Eosinophil Count 0.10 0 - 0.45 K/UL Absolute Basophil Count 0.00 0 - 0.20 K/UL MAGNESIUM Collection Time: 12/28/16 3:35 AM Result Value Ref Range Magnesium 1.9 1.6 - 2.6 mg/dL PHOSPHORUS Collection Time: 12/28/16 3:35 AM Result Value Ref Range Phosphorus 3.7 2.0 - 4.0 MG/DL IONIZED CALCIUM Collection Time: 12/28/16 3:35 AM Result Value Ref Range Ionized Calcium 1.09 1.0 - 1.3 MMOL/L POC GLUCOSE Collection Time: 12/28/16 4:02 AM Result Value Ref Range Glucose, POC 159 (H) 70 - 100 MG/DL Point of Care Testing: (Last 24 hours): Glucose: (!) 175 (12/28/16 4085) POC Glucose (Download): (!) 159 (12/28/16 0402) Drains: reviewed Prophylaxis Review: Lines: No Urinary Catheter: Yes; Retain fung due to: Need for accurate Intake and Output Start Cardura 2 mg qday Antibiotic Usage: Procal WNL VTE: Pharmacological prophylaxis; Contraindication: Active bleeding; Cerebral hemorrhage and Mechanical prophylaxis; Sequential compression device PT, OT, evaluation and treatment Diet: Enteral nutrition with PO, Or Corpak access if unable to swallow and is at risk for aspiration. HAD BM on 12-27-16 Social work and caser shoe parts for discharge planning and placement. Family Meeting and update: yes. Patient is unable to make his or her decisions, family updated during rounds. Goals of therapy: Addressed, Patient is a full code Nurses concerns addressed. Disposition/Family: Continue ICU care due to # 1 X Marcos Herrmann MD Brush Loader And Handle Attacher, Departments of Neurology and Radiology Pager: [phone] Date: 12/28/2016 X * Phylicia Duenas MD - 12/28/2016 7:45 AM CDT Formatting of this note may be different from the original. Neurosurgery Progress Note SUBJECTIVE: No acute events overnight. OBJECTIVE: Vital Signs: 24 Hour Range BP: (103-154)/(46-101) Temp: [36.8 C (98.3 F)-37.6 C (99.7 F)] Pulse: [77-99] Respirations: [15 PER MINUTE-33 PER MINUTE] SpO2: [95 %-99 %] O2 Delivery: None (Room Air) Opens eyes to stimulus PERRL bilateral Moves bilateral lowers spontaneously, R>L Followed commands in left upper (thumbs up) and left lower (wiggle toes) extremities Purposeful LUE and localizing, minimal movement RUE EVD in place with dressing CDI ASSESSMENT/PLAN: 66 y.o. female with large left frontal intraparenchymal hemorrhage on ASA/ Plavix. 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) Dementia TIA (transient ischemic attack) Chronic back pain EVD catheter withdrawn 12/25/16 Pulled back again this AM (12/27/16), CT head shows new position of catheter and decreased size of IPH Na- 143, On 2% @50, PO salt Keppra PNEUMATIC DEICER INSPECTOR ASA/Plavix held Q1H neurochecks PT/OT inpatient setting (will need rehab consult) ST, NPO SW for DC planning Prophylaxis: A)GI: PPI B) Lines: No C) Urinary Catheter: No D) Antibiotic Usage: No E) VTE: Pharmacological prophylaxis; Contraindication: Bleeding risk; No SQH large ICH with hx of ASA/Plavix and Mechanical prophylaxis; Sequential compression device F) Restraints: Patient assessed for need for restraints. Phylicia Duenas MD [id number] Please call [phone] with any questions. * Robbie Singh, SURGICAL ELASTIC KNITTER - 12/28/2016 6:52 AM CDT Formatting of this note may be different from the original. 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 EVD pulled back per NS. CT improved 12/26: EVD flushed per NS 12/27: No acute events, nasal trumpet in place, continue aggressive pulmonary toilet. 12/28 No acute events overnight Neuro: ICH (2)- s/p OR for evacuation and EVD placement 12/24 Hx of TIA and dementia - 12/27 EVD cathter was pulled back, this AM but eyes opened spontaneously - Will continue to monitor for acute changes and wait on primary team EVD plans - 2% mixed salt at 50 ml/hr goal Na 145-155 checks q 6 hours - PO salt 34 meq TID - Keppra 500 mg BID - Holding PNEUMATIC DEICER INSPECTOR Plavix (placed on after TIA) 12/[address] Interval retraction of the left frontal approach surgical drain. Minimal increase in the size of the left frontal intraparenchymal hematoma with minimal increase in surrounding edema, stable localized mass effect, and trace left to right frontal midline shift. Improving pneumocephalus. Stable intraventricular blood products. Sedation/Pain Management: Hx of Chronic back pain - PRN tylenol, hydrocodone and fentanyl if needed - Assess for delirium daily Cardiac: - troponin negative, EKG without ischemia - SBP goal:<160 - PRN Labetolol available Respiratory: -Good pulmonary toilet: turn, cough, deep breathe, use of IS. Mobilize when able - Nasal trumpet for obstruction- improved respiratory status - Doing much better with nasal trumpet, no reports of agonal breathing or apneic episodes GI: - Feeding: NPO - Isosource 1.5 at 40 ml/hr per [place]ak - neurosurgery bowel regimen, ensure daily BM (last 12/27) Heme: -hold PTAPlavix and ASA - Hgb 11.4, Plt 218 - daily CBC ID: - Tmax 37.6 - WBC 9.5 - 12/26 Head cultures sent -12/26 1 blood culture positive for gram positive cocci, likely contamination 2nd cx negative - 12/24 C-diff Neg - Will continue to monitor Renal: - Cr 0.60 - Aim for normovolemia - Fung replaced d/t urinary retention Intake/Output Summary (Last 24 hours) at 12/28/16 0807 Last data filed at 12/28/16 0800 Gross per 24 hour Intake 2151 ml Output 1749 ml Net 402 ml Endocrine: Hyperglycemia - Glucose 174 this AM - LDCF - Blood glucose goal 100-180mg/dl - 135-159 - A1c 5.2 FEN: - 2% infusion mixed salts on going - Magnesium goal >2.0, i-Kris goal > 1.0, Potassium goal >4.0 mEq/L - Electrolyte replacement protocol Prophylaxis Review: A)GI: No B) Lines:PIVs C) Urinary Catheter:Yes; Fung replaced d/t retention D) Antibiotic Usage:No E) VTE:Mechanical prophylaxis; Sequential compression device F) Isolation:none G)Seizures:keppra I) Restraints: Patient assessed for need for restraints. Disposition/Family:continue ICU care Primary service:NSG Consults: NEICU, Rehab medicine __ SUBJECTIVE Roxy Phillip is a 66 y.o. female. Overnight Events: No new events noted. OBJECTIVE Vital Signs: Last Filed Vital Signs: 24 Hour Range BP: 124/61 (12/28 599) Temp: 36.9 C (98.5 F) (12/29 399) Pulse: 87 (12/28 599) Respirations: 27 PER MINUTE (12/28 599) SpO2: 97 % (12/28 599) O2 Delivery: None (Room Air) (12/28 599) Weight: 55.6 kg (122 lb 9.2 oz) (12/29 399) BP: (103-154)/(49-101) Temp: [36.8 C (98.3 F)-37.6 C (99.7 F)] Pulse: [77-99] Respirations: [15 PER MINUTE-33 PER MINUTE] SpO2: [96 %-99 %] O2 Delivery: None (Room Air) Intensity Pain Scale 0-10 (Pain 1): (not recorded) Vitals: 12/26/16 0400 12/27/16 0400 12/28/16 0400 Weight: 54.4 kg (119 lb 14.9 oz) 54.9 kg (121 lb 0.5 oz) 55.6 kg (122 lb 9.2 oz ) Artificial airway: None Ventilator/ Respiratory Therapy: No Vent weaning trial: Not applicable Lines: Peripheral Line Drains: Fung Catheter, Nasogastric tube, EVD Scheduled Meds: docusate (COLACE) oral solution 100 mg 100 mg Per [place] Tube BID insulin aspart (NOVOLOG FLEXPEN) injection PEN 0-7 Units 0-7 Units Subcutaneous 5 X Day levETIRAcetam (KEPPRA) oral solution 500 mg 500 mg Per [place] Tube BID milk of magnesia (CONC) oral suspension 10 mL 10 mL Per [place] Tube QDAY senna/docusate (SENOKOT-S) solution 10 mL 10 mL Per [place] Tube BID sodium chloride(#) inj for po solution 34 mEq 34 mEq Per NG tube TID Continuous Infusions: sodium mixed salt 2% infusion (NaCl 1%, Na Acetate 1%) 50 mL/hr at 12/28/16 0647 PRN and Respiratory Meds:acetaminophen Q4H PRN, calcium gluconate IVPB PRN (General Merchandise Salesperson from Rx) AND Ionized Calcium PRN AND Notify Physician Ongoing, fentaNYL citrate PF Q1H PRN, hydrALAZINE Q6H PRN, HYDROcodone/acetaminophen Q4H PRN, magnesium sulfate PRN AND Magnesium PRN AND Notify Physician Ongoing, ondansetron Q6H PRN, pancrelipase 20,000 Units/ sodium bicarbonate 650 mg(#) PRN (General Merchandise Salesperson from Rx), potassium chloride SR PRN OR potassium chloride PRN OR potassium chloride PRN Critical Care Vitals: ICP Monitoring: Hemodynamics/Oxycalcs: BP 124/61 (BP Source: Arm, Left) | Pulse 87 | Temp 36.9 C (98.5 F) | Ht 154.9 cm (61") | Wt 55.6 kg (122 lb 9.2 oz) | SpO2 97% | BMI 23.16 kg/m2 Intake/Output Summary: (Last 24 hours) Intake/Output Summary (Last 24 hours) at 12/28/16 0652 Last data filed at 12/28/16 0600 Gross per 24 hour Intake 2403 ml Output 1988 ml Net 415 ml Stool Occurrence: 1 Physical Exam: Blood pressure 124/61, pulse 87, temperature 36.9 C (98.5 F), height 154.9 cm (61"), weight 55.6 kg (122 lb 9.2 oz), SpO2 97 %. Oxford coma score: E: 4 - Opens eyes on own M: 6 - Follows simple motor commands V: 1 - Makes no noise Neuro: Mental Status:awake, tracks examiner Cranial Nerves: Pupil exam: Size : 4Reactivity: brisk Motor:2/5 right upper, would not follow, some movements 2/5 right lower withdraw to painful stimuli 3/5 left upper moves spontaneous, squeezed hands 3/5 left lower, follows commands Lungs:fine rhonchi to auscultation bilaterally, diminished in bilateral bases Pulmonary:Respiratory status: Stable with nasal trumpet in place Heart:regular rate and rhythm, S1, S2 normal Abdomen:soft, non-tender. Bowel sounds normal. No masses, no organomegaly Extremities:extremities normal, atraumatic, no cyanosis or edema Skin:Skin color, texture, turgor normal. No rashes or lesions Lab Review: Pertinent labs reviewed Medications: docusate (COLACE) oral solution 100 mg 100 mg Per [place] Tube BID insulin aspart (NOVOLOG FLEXPEN) injection PEN 0-7 Units 0-7 Units Subcutaneous 5 X Day levETIRAcetam (KEPPRA) oral solution 500 mg 500 mg Per [place] Tube BID milk of magnesia (CONC) oral suspension 10 mL 10 mL Per [place] Tube QDAY senna/docusate (SENOKOT-S) solution 10 mL 10 mL Per [place] Tube BID sodium chloride(#) inj for po solution 34 mEq 34 mEq Per NG tube TID Point of Care Testing: (Last 24 hours): Glucose: (!) 175 (12/28/16 0339) POC Glucose (Download): (!) 159 (12/28/16 3575) Radiology and Other Diagnostic Procedures Review: all noted I spent 45 minutes managing the care of this patient. Mrs Phillip is critically ill s/p ICH. Cares included: detailed neurologic and systems exam, medication review, laboratory data review and interpretation, electrolyte management, review of available imaging, DVT/PE prophylaxis review, diet review , activity review, and coordination of care with consulted teams. Robbie Singh, SURGICAL ELASTIC KNITTER Date: 12/28/[phone] * Delaney Lechuga, VANESSA - 12/27/2016 6:30 PM CDT Notified Neurosurgery that patient's 1600 sodium draw was 145; questioned if want to increase 2% rate. Stated will review the labs and enter new ordered rate. Will continue to monitor patient and look for new orders. * Myke Hernandez MD - 12/27/2016 3:15 PM CDT Formatting of this note may be different from the original. 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 EVD pulled back per NS. CT improved 12/26: EVD flushed per NS 12/27: RHONDA overnight, doing well, RSBI in 80s, will hold on removing ETT today, reassess tomorrow Neuro: ICH (2)- s/p OR for evacuation and EVD placement 12/24 Hx of TIA and dementia - EVD cathter was pulled back some and doing well, sleepy this AM but eyes opened spontaneously - Will continue to monitor for acute changes and wait on primary team EVD plans - 2% mixed salt at 60 ml/hr goal Na 145-155 checks q 6 hours - 1043 Na was 148 - PO salt 34 meq TID - Keppra 500 mg BID - Holding PNEUMATIC DEICER INSPECTOR Plavix (placed on after TIA) 12/[address] IMPRESSION 1. Interval retraction of the left frontal approach surgical drain. 2. Minimal increase in the size of the left frontal intraparenchymal hematoma with minimal increase in surrounding edema, stable localized mass effect, and trace left to right frontal midline shift. Improving pneumocephalus. 3. Stable intraventricular blood products. - OSH CT Head 12/22: large hematoma within left frontal lobe. - 12/23 CT/CTA: No evidence of aneurysm or AVM - CT Head 12/26: 1. Interval retraction of the surgical drain was satisfactory positioning within the grossly stable residual anterior left frontal cerebral hematoma. 2. Improving postoperative pneumocephalus without significant change in intracranial mass effect and left to right frontal midline shift. 3. Persistent mild interventricular hemorrhage. 4. Resolution of subarachnoid hemorrhage. Sedation/Pain Management: Hx of Chronic back pain - PRN tylenol, hydrocodone and fentanyl if needed - Assess for delirium daily Cardiac: Bradycardia resolved- 2/2 airway obstruction - No acute issues this AM - troponin negative, EKG without ischemia - SBP goal:<160 - PRN Labetolol available Respiratory: stable Good pulmonary toilet: turn, cough, deep breathe, use of IS. Mobilize when able - Nasal trumpet for obstruction- improved respiratory status - Doing much better with nasal trumpet, no reports of agonal breathing or apneic episodes GI: stable - Feeding: NPO - Isosource 1.5 at 40 ml/hr per [place] - neurosurgery bowel regimen, ensure daily BM (last 12/25) Heme: stable -hold PNEUMATIC DEICER INSPECTOR Plavix and ASA - Hgb 11.0, Plt 203 - daily CBC ID: Leukocytosis - 11.0 - Tmax 37.6 (yester at 04-05 was 38.4) - Head cultures sent - 1 blood culture positive for gram positive cocci, likely contamination - Will continue to monitor - On no abx right now - daily CBC Renal: stable - Cr 0.71 - Aim for normovolemia - Fung replaced d/t urinary retention Intake/Output Summary (Last 24 hours) at 12/27/16 1600 Last data filed at 12/27/16 1500 Gross per 24 hour Intake 1962 ml Output 2718 ml Net -756 ml Endocrine: stable - Glucose 184 this AM - Will add LDCF - Blood glucose goal 100-180mg/dl - A1c 5.2 FEN:Hypokalemia 3.4, Na 148 - 2% infusion mixed salts on going - Magnesium goal >2.0, i-Kris goal > 1.0, Potassium goal >4.0 mEq/L - Electrolyte replacement protocol Prophylaxis Review: A)GI: No B) Lines:PIVs C) Urinary Catheter:Yes; Fung replaced d/t retention D) Antibiotic Usage:No E) VTE:Mechanical prophylaxis; Sequential compression device F) Isolation:no G)Seizures:keppra I) Restraints: Patient assessed for need for restraints. Disposition/Family:ICU Primary service:NS Consults: NEJAMESU ____ SUBJECTIVE Roxy Phillip is a 66 y.o. female. Overnight Events: No new events noted. OBJECTIVE Vital Signs: Last Filed Vital Signs: 24 Hour Range BP: 148/71 (12/27 1500) ABP: 125/80 (12/26 2200) Temp: 37.6 C (99.7 F) (12/27 1200) Pulse: 97 (12/27 1500) Respirations: 33 PER MINUTE (12/27 1500) SpO2: 97 % (12/27 1500) O2 Delivery: None (Room Air) (12/27 1499) Weight: 54.9 kg (121 lb 0.5 oz) (12/27 0400) BP: (103-154)/(43-73) ABP: (116-139)/(52-80) Temp: [37 C (98.6 F)-38.4 C (101.2 F)] Pulse: [74-97] Respirations: [18 PER MINUTE-35 PER MINUTE] SpO2: [93 %-97 %] O2 Delivery: None (Room Air) Intensity Pain Scale 0-10 (Pain 1): (not recorded) Vitals: 12/25/16 0500 12/26/16 0400 12/27/16 0400 Weight: 56.4 kg (124 lb 5.4 oz) 54.4 kg (119 lb 14.9 oz) 54.9 kg (121 lb 0.5 oz ) Artificial airway: None Ventilator/ Respiratory Therapy: No Vent weaning trial: Not applicable Lines: Peripheral Line Drains: Fung Catheter: 0 mL and Nasogastric tube: 00 mL Scheduled Meds: docusate (COLACE) oral solution 100 mg 100 mg Per [place] Tube BID insulin aspart (NOVOLOG FLEXPEN) injection PEN 0-7 Units 0-7 Units Subcutaneous 5 X Day levETIRAcetam (KEPPRA) oral solution 500 mg 500 mg Per [place] Tube BID milk of magnesia (CONC) oral suspension 10 mL 10 mL Per [place] Tube QDAY potassium chloride oral solution 20 mEq 20 mEq Per NG tube ONCE senna/docusate (SENOKOT-S) solution 10 mL 10 mL Per [place] Tube BID sodium chloride(#) inj for po solution 34 mEq 34 mEq Per NG tube TID Continuous Infusions: sodium mixed salt 2% infusion (NaCl 1%, Na Acetate 1%) 20 mL/hr at 12/26/16 1741 PRN and Respiratory Meds:acetaminophen Q4H PRN, calcium gluconate IVPB PRN (General Merchandise Salesperson from Rx) AND Ionized Calcium PRN AND Notify Physician Ongoing, fentaNYL citrate PF Q1H PRN, hydrALAZINE Q6H PRN, HYDROcodone/acetaminophen Q4H PRN, magnesium sulfate PRN AND Magnesium PRN AND Notify Physician Ongoing, ondansetron Q6H PRN, pancrelipase 20,000 Units/ sodium bicarbonate 650 mg(#) PRN (General Merchandise Salesperson from Rx), potassium chloride SR PRN OR potassium chloride PRN OR potassium chloride PRN Critical Care Vitals: ICP Monitoring: Hemodynamics/Oxycalcs: BP 148/71 (BP Source: Arm, Left) | Pulse 97 | Temp 37.6 C (99.7 F) | Ht 154.9 cm (61") | Wt 54.9 kg (121 lb 0.5 oz) | SpO2 97% | BMI 22.87 kg/m2 Intake/Output Summary: (Last 24 hours) Intake/Output Summary (Last 24 hours) at 12/27/16 1600 Last data filed at 12/27/16 1500 Gross per 24 hour Intake 1962 ml Output 2718 ml Net -756 ml Stool Occurrence: 1 Physical Exam: Blood pressure 148/71, pulse 97, temperature 37.6 C (99.7 F), height 154.9 cm (61"), weight 54.9 kg (121 lb 0.5 oz), SpO2 97 %. Osbaldo coma score: E: 4 - Opens eyes on own M: 6 - Follows simple motor commands V: 1 - Makes no noise Neuro: Mental Status:awake, not talkative, sleepy Cranial Nerves: Pupil exam: Size : 4Reactivity: brisk Motor: 2/5 right upper, would not follow, some movements 1/5 right lower withdraw to painful stimuli 3/5 left upper moves spontaneous, squeezed hands 2/5 left lower, follows commands, feel resistance to dorsi and plantar flexion Lungs:clear to auscultation bilaterally Pulmonary:Respiratory status: Stable with nasal trumpet in place, does not sound like she has any upper airway obstruction Heart:regular rate and rhythm, S1, S2 normal Abdomen:soft, non-tender. Bowel sounds normal. No masses, no organomegaly Extremities:extremities normal, atraumatic, no cyanosis or edema Skin:Skin color, texture, turgor normal. No rashes or lesions Lab Review: Pertinent labs reviewed Medications: docusate (COLACE) oral solution 100 mg 100 mg Per [place] Tube BID insulin aspart (NOVOLOG FLEXPEN) injection PEN 0-7 Units 0-7 Units Subcutaneous 5 X Day levETIRAcetam (KEPPRA) oral solution 500 mg 500 mg Per [place] Tube BID milk of magnesia (CONC) oral suspension 10 mL 10 mL Per [place] Tube QDAY potassium chloride oral solution 20 mEq 20 mEq Per NG tube ONCE senna/docusate (SENOKOT-S) solution 10 mL 10 mL Per [place] Tube BID sodium chloride(#) inj for po solution 34 mEq 34 mEq Per NG tube TID Point of Care Testing: (Last 24 hours): Glucose: (!) 184 (12/27/16 0356) Radiology and Other Diagnostic Procedures Review: all noted Myke Hernandez MD Date: 12/27/[phone] Associated attestation - Marcos Herrmann MD - 12/28/2016 8:39 AM CDT Formatting of this note may be different from the original. ATTESTATION I reviewed the history and exam documented by the resident last night. Please see my additional notes for documentation of my exam, assessment and plan. Staff name: Marcos Herrmann MD Date: 12/28/2016 * Marcos Herrmann MD - 12/27/2016 12:39 PM CDT Formatting of this note may be different from the original. Neurointensivist Critical Care Progress Note Today's Date: 12/27/2016 Name: Roxy Phillip Admission Date: 12/22/2016 LOS: 5 days ATTESTATION I have seen, personally fully evaluated this patient. Patient exhibits injury of at least one organ system,and there is high probability of imminent or life threatening deterioration in patient's condition , and hence needs continued medical attention including frequent neurological examination, and frequent vital signs. The patient is admitted to the NSICU with: Left frontal IPH Hospital and ICU course: 12/22: admitted to NICU 12/23: Overnight neuro exam without patient following commands, more lethargic, repeat CT head with minimal changes 12/24: No acute changes overnight, plan OR for drain placement per neurosurgery 12/25: SB with pauses improved with nasal trumpet for obstruction. EVD pulled back per NS. CT improved 12/26: EVD flushed per NS 12-27-16: Drain pulled back with repeat CT PMH: Significant for: Dementia, TIA The patient is critically ill with and is being managed for: Left frontal IPH Cerebral edema I spent 40 minutes (excluding time spent performing or supervising any procedures) providing and personally directing critical care services including Detailed neurological and systems examination Assessment of intravascular volume status Optimization of systemic perfusion pressures Insertion and interpretation of Invasive hemodynamic monitoring data Review of and interpretation laboratory data Review of and interpretation of available imaging studies Review of medications Review of antibiotic, drain prophylaxis Review of DVT/PE Prophylaxis Review of seizure prophylaxis Management of patient on mechanical ventilation Electrolyte management and management of endocrine abnormalities Coordination of care with consult teams Active problems currently being addressed include Patient Active Problem List Diagnosis Date Noted 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 female. Overnight Events: No new events noted, sign out obtained from awake overnight counselor person ( nurse and [facility] physician). Patient examined: yes Objective: I have reviewed the following medications: Scheduled Meds: docusate (COLACE) oral solution 100 mg 100 mg Per [place] Tube BID levETIRAcetam (KEPPRA) oral solution 500 mg 500 mg Per [place] Tube BID milk of magnesia (CONC) oral suspension 10 mL 10 mL Per [place] Tube QDAY potassium chloride oral solution 20 mEq 20 mEq Per NG tube ONCE potassium phosphate 20 mmol in dextrose 5% (D5W) 500 mL IVPB (std) 20 mmol Intravenous ONCE senna/docusate (SENOKOT-S) solution 10 mL 10 mL Per [place] Tube BID sodium chloride(#) inj for po solution 34 mEq 34 mEq Per NG tube TID Continuous Infusions: sodium mixed salt 2% infusion (NaCl 1%, Na Acetate 1%) 20 mL/hr at 12/26/16 1741 PRN and Respiratory Meds:acetaminophen Q4H PRN, calcium gluconate IVPB PRN (General Merchandise Salesperson from Rx) AND Ionized Calcium PRN AND Notify Physician Ongoing, fentaNYL citrate PF Q1H PRN, hydrALAZINE Q6H PRN, HYDROcodone/acetaminophen Q4H PRN, magnesium sulfate PRN AND Magnesium PRN AND Notify Physician Ongoing, ondansetron Q6H PRN, pancrelipase 20,000 Units/ sodium bicarbonate 650 mg(#) PRN (General Merchandise Salesperson from Rx), potassium chloride SR PRN OR potassium chloride PRN OR potassium chloride PRN Vital Signs: Last Filed Vital Signs: 24 Hour Range BP: 131/73 (12/28 1199) ABP: 125/80 (12/260) Temp: 37.6 C (99.7 F) (12/28 1199) Pulse: 85 (12/28 1199) Respirations: 29 PER MINUTE (12/28 1199) SpO2: 97 % (12/28 1199) O2 Delivery: None (Room Air) (12/28 1199) Weight: 54.9 kg (121 lb 0.5 oz) (12/27 0400) BP: (103-154)/(43-73) ABP: (106-140)/(44-80) Temp: [37 C (98.6 F)-38.4 C (101.2 F)] Pulse: [74-91] Respirations: [19 PER MINUTE-35 PER MINUTE] SpO2: [92 %-97 %] O2 Delivery: None (Room Air) Intensity Pain Scale 0-10 (Pain 1): (not recorded) Vitals: 12/25/16 0500 12/26/16 0400 12/27/16 0400 Weight: 56.4 kg (124 lb 5.4 oz) 54.4 kg (119 lb 14.9 oz) 54.9 kg (121 lb 0.5 oz ) Critical Care Vitals: ICP Monitoring: PA Catheter: Hemodynamics/Oxycalcs: Assessment and Plan: Neuro: GCS: E4, M5, V1 FOUR score: E4 M3 BR4 R4 Cranial Nerve Deficit: yes Focal motor neurodeficit: yes Need for Sedation: no E/o Delirium: n Need for restraints: no Seizure prophylaxis: yes Steroids: no EVD/Lumbar drain: yes Hypertonics: yes Plan for management of potential cerebral edema: Avoid Dextrose containing solutions, Maintain Na > 140 mEq/ L, Maintain head of bed elevation at least 30 degrees Keep neck in neutral position to optimize venous drainage Maintain normothermia, avoid hypoxemia, [place] appropriate osmotherapy ( i.e mannitol vs Hypertonic saline) PLAN: 1) Left Frontal IPH - EVD drain in place which was purposefully withdrawn today with f/u CT showing no significant change in hematoma, PT/OT/ST , PMR, prophylactic Keppra 500 BID; 2) Cerebral Edema - 2% at 20 cc/hr Cardiac: Blood pressure 131/73, pulse 85, temperature 37.6 C (99.7 F), height 154.9 cm (61"), weight 54.9 kg (121 lb 0.5 oz), SpO2 97 %. SBP (transduce arterial line at the tragus) CPP goal > 60 ( In presence of ICP monitor) Need for vasopressors: no Need for anti-hypertensive: n Hemodynamic monitoring/resuscitation : Goals of resuscitation: (in presence of invasive hemodynamic monitors) CPP 65-110 ICP < 20 mmHg SVV < 13% SVI 40-50 CI > 2.4 Lactate < 2 Base deficit < 4 SCVO2 goal > 70% Urine output goal > 0.5 ml/kg/hr PLAN: SBP goal <160 Respiratory: Respiratory status: Stable Need for mechanical ventilation: no Lung protective strategies in place Chest physiotherapy, Incentive spirometry, bronchotherapy, Avoid Hypoxemia, maintain SPO2 > 95% Monitor for and maintain normocapnia in absence of intracranial hypertension PLAN: O2 via nasal cannula prn Endocrine: Monitor for and maintain normoglycemia: target BG 100-180 mg/dl, with use of SSI or insulin infusion Fluid and electrolyte status: Monitor for and maintain Na >140, K > 4, Magnesium > 2, Phosphorus > 2 Maintain normovolemia Maintenance iv fluids 0.9 Saline or 2% saline PLAN: 2% at 20 cc/hr for cerebral edema, Na q6 hours, Na solution 34 mEq TID Heme: Maintain INR < 1.5, Platelet count 80-100 k Maintain Hb > 7 gm% in absence of ongoing cerebral ischemia Infectious Disease: Maintain normothermia, need for surveillance cultures, antibiotics reviewed Medications: reviewed Sepsis surveillance Imaging: CXR/Neuroimaging: reviewed Radiology and Other Diagnostic Procedures Reviewed Lab Review: 24-hour labs: Results for orders placed or performed during the hospital encounter of (from the past 24 hour(s)) SODIUM Collection Time: 12/26/16 4:11 PM Result Value Ref Range Sodium 156 (H) 137 - 147 MMOL/L POTASSIUM Collection Time: 12/26/16 4:11 PM Result Value Ref Range Potassium 3.4 (L) 3.5 - 5.1 MMOL/L SODIUM Collection Time: 12/26/16 9:58 PM Result Value Ref Range Sodium 154 (H) 137 - 147 MMOL/L POTASSIUM Collection Time: 12/26/16 9:58 PM Result Value Ref Range Potassium 4.3 3.5 - 5.1 MMOL/L BASIC METABOLIC PANEL Collection Time: 12/27/16 3:56 AM Result Value Ref Range Sodium 149 (H) 137 - 147 MMOL/L Potassium 3.4 (L) 3.5 - 5.1 MMOL/L Chloride 116 (H) 98 - 110 MMOL/L CO2 23 21 - 30 MMOL/L Anion Gap 10 3 - 12 Glucose 184 (H) 70 - 100 MG/DL Blood Urea Nitrogen 19 7 - 25 MG/DL Creatinine 0.71 0.4 - 1.00 MG/DL Calcium 8.5 8.5 - 10.6 MG/DL eGFR Non >60 >60 mL/min eGFR >60 >60 mL/min CBC AND DIFF Collection Time: 12/27/16 3:56 AM Result Value Ref Range White Blood Cells 10.5 4.5 - 11.0 K/UL RBC 3.60 (L) 4.0 - 5.0 M/UL Hemoglobin 11.0 (L) 12.0 - 15.0 GM/DL Hematocrit 32.8 (L) 36 - 45 % MCV 91.2 80 - 100 FL MCH 30.7 26 - 34 PG MCHC 33.6 32.0 - 36.0 G/DL RDW 15.6 (H) 11 - 15 % Platelet Count 203 150 - 400 K/UL MPV 8.1 7 - 11 FL Neutrophils 79 (H) 41 - 77 % Lymphocytes 15 (L) 24 - 44 % Monocytes 6 4 - 12 % Eosinophils 0 0 - 5 % Basophils 0 0 - 2 % Absolute Neutrophil Count 8.20 (H) 1.8 - 7.0 K/UL Absolute Lymph Count 1.60 1.0 - 4.8 K/UL Absolute Monocyte Count 0.60 0 - 0.80 K/UL Absolute Eosinophil Count 0.00 0 - 0.45 K/UL Absolute Basophil Count 0.00 0 - 0.20 K/UL MAGNESIUM Collection Time: 12/27/16 3:56 AM Result Value Ref Range Magnesium 1.9 1.6 - 2.6 mg/dL PHOSPHORUS Collection Time: 12/27/16 3:56 AM Result Value Ref Range Phosphorus 1.6 (L) 2.0 - 4.0 MG/DL IONIZED CALCIUM Collection Time: 12/27/16 3:56 AM Result Value Ref Range Ionized Calcium 1.02 1.0 - 1.3 MMOL/L SODIUM Collection Time: 12/27/16 10:43 AM Result Value Ref Range Sodium 148 (H) 137 - 147 MMOL/L PROCALCITONIN Collection Time: 12/27/16 10:43 AM Result Value Ref Range Procalcitonin <0.05 <0.10 NG/ML Point of Care Testing: (Last 24 hours): Glucose: (!) 184 (12/27/16 7306) Drains: reviewed Prophylaxis Review: Lines: No Urinary Catheter: Yes; Retain fung due to: Need for accurate Intake and Output Antibiotic Usage: No Fever and Leukocytosis - check Procal now and in 12 hours VTE: Pharmacological prophylaxis; Contraindication: Active bleeding; Cerebral hemorrhage and Mechanical prophylaxis; Sequential compression device PT, OT, evaluation and treatment Diet: Enteral nutrition with PO, Or Corpak access if unable to swallow and is at risk for aspiration. Monitor for BM Social work and caser shoe parts for discharge planning and placement. Family Meeting and update: yes. Patient is unable to make his or her decisions, family updated during rounds. Goals of therapy: Addressed, Patient is a full code Nurses concerns addressed. Disposition/Family: Continue ICU care due to # 1 X Marcos Herrmann MD Brush Loader And Handle Attacher, Departments of Neurology and Radiology Pager: [phone] Date: 12/27/2016 X * Phylicia Duenas MD - 12/27/2016 9:08 AM CDT Formatting of this note may be different from the original. Neurosurgery Progress Note SUBJECTIVE: No acute events overnight. Family at bedside this AM, questions answered. OBJECTIVE: Vital Signs: 24 Hour Range BP: (109-154)/(43-65) ABP: (106-149)/(44-80) Temp: [37 C (98.6 F)-38.9 C (102.1 F)] Pulse: [74-106] Respirations: [19 PER MINUTE-35 PER MINUTE] SpO2: [92 %-96 %] O2 Delivery: None (Room Air) Opens eyes to stimulus PERRL bilateral Moves bilateral lowers spontaneously, R>L Purposeful LUE and localizing, minimal movement RUE EVD in place with dressing CDI ASSESSMENT/PLAN: 66 y.o. female with large left frontal intraparenchymal hemorrhage on ASA/ Plavix. Active Hospital Problems Diagnosis Intraparenchymal hemorrhage of brain (HCC) Added automatically from request for surgery [id number] Nontraumatic cortical hemorrhage of left cerebral hemisphere (HCC) Dementia TIA (transient ischemic attack) Chronic back pain EVD catheter withdrawn 12/25/16 Pulled back again this AM (12/27/16), CT head ordered to evaluate new position Na- 149, On 2% @20, PO salt Keppra PNEUMATIC DEICER INSPECTOR ASA/Plavix held Q1H neurochecks PT/OT inpatient setting (will need rehab consult) ST, NPO SW for DC planning Prophylaxis: A)GI: PPI B) Lines: No C) Urinary Catheter: No D) Antibiotic Usage: No E) VTE: Pharmacological prophylaxis; Contraindication: Bleeding risk; No SQH large ICH with hx of ASA/Plavix and Mechanical prophylaxis; Sequential compression device F) Restraints: Patient assessed for need for restraints. Phylicia Duenas MD [id number] Please call [phone] with any questions. * Gurvinder Galicia - 12/26/2016 2:23 PM CDT SPEECH-LANGUAGE PATHOLOGY NO TREATMENT NOTE Per discussion w/ RN, pt still demonstrating lethargy and reduced arousal and not appropriate for swallow treatment on this date. Do not anticipate changes in swallow function in near future. Will f/u 12/29. Attempted to see patient 1 time Therapist: SUZANNE Perez, CF-C IRON WORKER [phone] Date: 12/26/2016 * Kyle Christensen - 12/26/2016 11:09 AM CDT PHYSICAL THERAPY PROGRESS NOTE MOBILITY: Mobility Progressive Mobility Level: Sit on edge of bed Level of Assistance: Assist X2 Assistive Device: None Time Tolerated: 11-30 minutes Activity Limited By: Mental Status Variability SUBJECTIVE: Subjective Mental / Cognitive Status: Lethargic;Withdrawn;Unable to Follow Commands Persons Present: OT Pain: Patient demonstrates no signs of pain Precautions: EVD (Disscussed w/ RN; Does not need to be clamped) Comments: She was unable to follow any commands. She would open and close her eyes when she wanted to. In sitting her eyes were more open than in supine. She would spontaneously kick her left foot or put in into a plantarflexion position. BED MOBILITY/TRANSFERS: Bed Mobility/Transfers Bed Mobility: Supine to Sit: Dependent Assist;x2 People Other Transfer Type: Mechanical Lift Other Transfer: Assistance Level: From;Bed;To;Bed Side Chair;Dependent Assist Other Transfer: Assistive Device: Mechanical Lift Other Transfer: Type Of Assistance: For Safety Considerations End Of Activity Status: Up in Chair;Nursing Notified;Instructed Patient to Request Assist with Mobility;Instructed Patient to Use Call Light BALANCE: Balance Sitting Balance: Static Sitting Balance;Dependent Assist Comments: Patient was unable to hold herself up in sitting at the edge of bed on this date. ACTIVITY/EXERCISE: Activity / Exercise Sit Edge Of Bed: 10 minutes Sit Edge Of Bed Assist: Dependent EDUCATION: Education Persons Educated: Patient/Family Patient Barriers To Learning: Decreased Alertness;Impaired Communication Interventions: Family Education Teaching Methods: Verbal Instruction Patient Response: More Instruction Required Topics: Plan/Goals of PT Interventions ASSESSMENT/PROGRESS: Assessment/Progress Impaired Mobility Due To: Decreased Level of Alertness Assessment/Progress: Expect Slow Progress;Should Improve w/ Continued PT GOALS: Goals Goal Formulation: With Family, Patient Unable to Participate in Goal Setting Pt Will Go Sit to Supine : w/ Moderate Assist Pt Will Logroll: w/ Moderate Assist Pt Will Transfer Bed/Chair: w/ Moderate Assist, w/ Assist of 2 Pt Will Transfer Sit to Stand: w/ Maximum Assist, w/ Assist of 2 PLAN: Plan Treatment Interventions: Strengthening;Mobility Training Plan Frequency: 5 Days per Week Comments: Progress edge of bed activites and transfers as patient increases alertness. RECOMMENDATIONS: PT Discharge Recommendations PT Discharge Recommendations: Inpatient Setting Equipment Recommendations: Too early to be determined Therapist: Kyle Christensen, SPT Date: 12/26/2016 Associated attestation - Donna Luque, PT - 12/26/2016 4:02 PM CDT I was present and involved in directing the care of the patient throughout the physical therapy session. * Carrie Pack, OT - 12/26/2016 11:06 AM CDT OCCUPATIONAL THERAPY PROGRESS NOTE Admitting Diagnosis: large left front hematoma Hemorrhagic stroke (HCC) Patient seen x1 this date. Documentation reflects all daily treatment sessions. Mobility Progressive Mobility Level: Sit on edge of bed Level of Assistance: Assist X2 Assistive Device: None Time Tolerated: 11-30 minutes Activity Limited By: Mental Status Variability;Weakness;Fatigue Subjective Pertinent Dx per Physician: 66 y.o. female PMH TIA, dementia, osteoporosis, arthritis, chronic back pain, admitted to [facility] with Left frontal IPH on . Patient to OR for hematoma evacuation and EVD placement on 12/24. Precautions: Falls;EVD Pain / Complaints: Patient demonstrates no signs of pain Objective Psychosocial Status: Lethargic Persons Present: PT ADL's Where Assessed: Edge of Bed Functional Transfer Assist: Total Assist x2 Functional Transfer Deficits: Supine to/from Sit;rolling side to side;Total body lift to chair Comment: Patient pushing back while seated at EOB and pushing with LLE. Patient unable to assist with sitting balance this date. Patient lifted to chair and positioned in chair for safety. TABS alarm and lapbelt on. Activity Tolerance Endurance: 2/5 Tolerates 10-20 Minutes Exercise w/Multiple Rests Cognition Overall Cognitive Status: Impaired Assessment Assessment: Decreased ADL Status;Decreased Safe/Judg during ADL;Decreased Cognition;Decreased Endurance;Decreased Self-Care Trans Prognosis: Fair;w/Cont OT s/p Acute Discharge Plan Treatment Interventions: ADL Retraining;Functional Transfer Training;Endurance Training;Cognitive Reorientation;Patient/Family Training;Neuromuscular Reeducation;Compensatory Technique Education OT Frequency: 5x/week Further Evaluation Goals Pt Will Tolerate Further ADL Evaluation: w/in 3-5 sessions Pt Will Tolerate Further UE Status Evaluation: w/in 3-5 sessions Pt Will Tolerate Further Visual Evaluation: w/in 3-5 sessions ADL Goals Other ADL Goal 1: Patient will tolerate sitting at EOB x10 mins with moderate assist to participate in ADLs. Discharge Recommendations: an inpatient setting Equipment Recommendations: Too early to be determined Therapist: HENRY James/Bharati [id number] Date: 12/26/2016 * Inocencio Haddad - 12/26/2016 10:24 AM CDT Formatting of this note may be different from the original. Neuroscience Critical Care Progress Note Roxy Phillip Admission Date: 12/22/2016 LOS: 4 days Ms Phillip had IPH in her left frontal lobe 4 days ago. She had percutaneous drain catheter placed two days ago and this was repositioned yesterday. She has had drainage from the catheter 40mL so far which will lessen the effect of neuroinflammation and swelling as the hematoma resolves. She has NOT had TPA administered to the catheter as she was recently on plavix. Over the next several days to weeks this clot will probably liquify. If there is low output out of the drain over the weekend I would ask about whether it would be timely, or warranted, to try TPA at that time. No further bradycardia events after drain manipulation. She has less frequent respiratory pauses with drain manipulation and the nasal trumpet. Seems to be doing well. Continue 2% mixed salt to MAINTAIN elevated sodium 145-155 through the weekend. Tolerating Tube feeds and she is having bowel movements. 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) 2016 Dementia 12/23/2016 TIA (transient ischemic attack) 12/23/2016 Chronic back pain 12/23/2016 Intraparenchymal hemorrhage of brain (HCC) 12/22/2016 Added automatically from request for surgery [id number] Hospital and ICU course: 12/22: admitted to NICU 12/23: Overnight neuro exam without patient following commands, more lethargic, repeat CT head with minimal changes 12/24: No acute changes overnight, plan OR for drain placement per neurosurgery 12/25: Multiple pauses overnight, longest 3.5 sec, resolved with replacement of K + Neuro: ICH, Hx of TIA - ICH score 2 - OSH Head CT 12/22 large hematoma within left frontal lobe. - 12/23 CT/CTA No evidence of aneurysm or AVM - 2% mixed salt at 60 ml/hr goal Na 145-155 checks q 6 hours - PO salt 34 meq TID - OR 12/24 for drain placement with tPA - Keppra 500 mg BID - Hold plavix for this month, will need to decide on whether to restart. She has not had complete workup for her previous TIA, would need carotid doppler and echocardiogram for completeness. If there were a compelling reason to treat with ongoing plavix after this month that could be determined whether to restart in the future. Sedation/Pain Management: Hx of Chronic back pain - Per Took 10/325mg Hydrocodone q6 hours PNEUMATIC DEICER INSPECTOR- Minimize narcotic use - Assess for delirium daily Cardiac: - SBP goal:<140 Elevated heart rate and blood pressure today PRN hydralazine D/C'd prn labetalol If she is persistently elevated then would add amlodipine based upon the recent bradycardia yesterday Some of the hypertension may be pain related due to chronic lumbago - giving some acetaminophen today so as to not be too sedating. I am not concerned that we will be masking a fever as there is no sign of infection. Respiratory: - On room air Good pulmonary toilet: turn, cough, deep breathe, use of IS. Mobilize when able Out of bed to chair and standing with assist if possible. - Guarded respiratory pattern, now with nasal trumpet GI: - Feeding: NPO - TF to continue - neurosurgery bowel regimen, ensure daily BM Heme: -hold PNEUMATIC DEICER INSPECTOR Plavix and ASA - 12/24 Hgb 10.6 Plts 184 (trending down) - 12/25 Hgb 9.3 Plts 167 - assess for coagulopathy, maintain platelets above 100k, INR <1.5 - Holding anticoagulation ID: - aim for normothermia - Afebrile - 12/24 WBCs 11.9 (stable) - 12/25 WBCs 11.8 Temp <38.3 celsius, normothermia protocol if febrile Renal: - 12/24 BUN/Creat 11/0.70 - 12/25 BUN/Cr 14/0.64 - Aim for normovolemia - Fung replaced d/t urinary retention Intake/Output Summary (Last 24 hours) at 12/26/16 1024 Last data filed at 12/26/16 0900 Gross per 24 hour Intake 1558 ml Output 1615 ml Net -57 ml Endocrine: - Blood glucose goal 100-180mg/dl - A1c 5.2 FEN: - 2% at 50 ml/hr goal Na 145-155 checks q 6 hours - increase PO salt to 34 meq TID - Magnesium goal >2.0, i-Kris goal > 1.0, Potassium goal >4.0 mEq/L - Electrolyte replacement protocol Prophylaxis Review: A)GI: B) Lines:No C) Urinary Catheter:Yes; Fung replaced d/t retention D) Antibiotic Usage:No E) VTE:Mechanical prophylaxis; Sequential compression device F) Isolation:no G)Seizures:keppra I) Restraints: Patient assessed for need for restraints. Disposition/Family:ICU Primary service:ANURAG Consults: RODRIGUE __ SUBJECTIVE Roxy Phillip is a 66 y.o. female. Overnight Events: No new events noted. OBJECTIVE Vital Signs: Last Filed Vital Signs: 24 Hour Range BP: 125/44 (12/26 899) ABP: 145/55 (12/26 899) Temp: 37.8 C (100.1 F) (12/27 799) Pulse: 99 (12/26 899) Respirations: 25 PER MINUTE (12/26 899) SpO2: 94 % (12/26 899) O2 Delivery: None (Room Air) (12/26 899) Weight: 54.4 kg (119 lb 14.9 oz) (12/27 399) BP: (114-141)/(40-81) ABP: (116-168)/(46-72) Temp: [36.7 C (98 F)-37.8 C (100.1 F)] Pulse: [66-106] Respirations: [15 PER MINUTE-27 PER MINUTE] SpO2: [92 %-100 %] O2 Delivery: None (Room Air) Intensity Pain Scale 0-10 (Pain 1): (not recorded) Vitals: 12/24/16 0400 12/25/16 0500 12/26/16 0400 Weight: 55.4 kg (122 lb 2.2 oz) 56.4 kg (124 lb 5.4 oz) 54.4 kg (119 lb 14.9 oz ) Artificial airway: None Ventilator/ Respiratory Therapy: No Vent weaning trial: Not applicable Lines: Peripheral Line Drains: Fung Catheter: 0 mL and Nasogastric tube: 00 mL Scheduled Meds: docusate (COLACE) oral solution 100 mg 100 mg Per Corpak Tube BID levETIRAcetam (KEPPRA) oral solution 500 mg 500 mg Per [place] Tube BID milk of magnesia (CONC) oral suspension 10 mL 10 mL Per [place] Tube QDAY senna/docusate (SENOKOT-S) solution 10 mL 10 mL Per Corpak Tube BID sodium chloride(#) inj for po solution 34 mEq 34 mEq Per NG tube TID Continuous Infusions: sodium mixed salt 2% infusion (NaCl 1%, Na Acetate 1%) 50 mL/hr at 12/26/16 0754 PRN and Respiratory Meds:acetaminophen Q4H PRN, calcium gluconate IVPB PRN (General Merchandise Salesperson from Rx) AND Ionized Calcium PRN AND Notify Physician Ongoing, fentaNYL citrate PF Q1H PRN, hydrALAZINE Q6H PRN, HYDROcodone/acetaminophen Q4H PRN, magnesium sulfate PRN AND Magnesium PRN AND Notify Physician Ongoing, ondansetron Q6H PRN, pancrelipase 20,000 Units/ sodium bicarbonate 650 mg(#) PRN (General Merchandise Salesperson from Rx), potassium chloride SR PRN OR potassium chloride PRN OR potassium chloride PRN Critical Care Vitals: ICP Monitoring: Hemodynamics/Oxycalcs: BP 125/44 (BP Source: Arm, Right) | Pulse 99 | Temp 37.8 C (100.1 F) | Ht 154.9 cm (61") | Wt 54.4 kg (119 lb 14.9 oz) | SpO2 94% | BMI 22.66 kg/m2 Intake/Output Summary: (Last 24 hours) Intake/Output Summary (Last 24 hours) at 12/26/16 1024 Last data filed at 12/26/16 0900 Gross per 24 hour Intake 1558 ml Output 1615 ml Net -57 ml Stool Occurrence: 1 Physical Exam: Blood pressure 125/44, pulse 99, temperature 37.8 C (100.1 F), height 154.9 cm (61"), weight 54.4 kg (119 lb 14.9 oz), SpO2 94 %. Osbaldo coma score: E: 4 - Opens eyes on own M: 6 - Follows simple motor commands V: 1 - Makes no noise Neuro: Mental Status:global aphasia, right sided neglect, alert. Cranial Nerves: Pupil exam: Size : 4Reactivity: brisk Motor: 3/5 right upper localizes 2/5 right lower W/d to painful stim 3/5 left upper localizes 2/5 left lower W/d to painful stim Lungs:clear to auscultation bilaterally Pulmonary:Respiratory status: Stable Heart:regular rate and rhythm, S1, S2 normal, no murmur, click, rub or gallop Abdomen:soft, non-tender. Bowel sounds normal. No masses, no organomegaly Extremities:extremities normal, atraumatic, no cyanosis or edema Skin:Skin color, texture, turgor normal. No rashes or lesions Lab Review: Pertinent labs reviewed Medications: docusate (COLACE) oral solution 100 mg 100 mg Per Corpak Tube BID levETIRAcetam (KEPPRA) oral solution 500 mg 500 mg Per [place] Tube BID milk of magnesia (CONC) oral suspension 10 mL 10 mL Per [place] Tube QDAY senna/docusate (SENOKOT-S) solution 10 mL 10 mL Per Corpak Tube BID sodium chloride(#) inj for po solution 34 mEq 34 mEq Per NG tube TID Point of Care Testing: (Last 24 hours): Glucose: (!) 138 (12/26/16 0416) Radiology and Other Diagnostic Procedures Review: all noted Critical care 50 min Inocencio LacKamp Date: 12/26/[phone] * Carrie Lindquist, JAYLA-QLIKVIEW DEVELOPER - 12/26/2016 7:47 AM CDT Formatting of this note may be different from the original. 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 EVD pulled back per NS. CT improved 12/26: EVD flushed per NS Neuro: ICH (2)- s/p OR for evacuation and EVD placement 12/24 Hx of TIA and dementia - OSH CT Head 12/22: large hematoma within left frontal lobe. - 12/23 CT/CTA: No evidence of aneurysm or AVM - CT Head 12/26: 1. Interval retraction of the surgical drain was satisfactory positioning within the grossly stable residual anterior left frontal cerebral hematoma. 2. Improving postoperative pneumocephalus without significant change in intracranial mass effect and left to right frontal midline shift. 3. Persistent mild interventricular hemorrhage. 4. Resolution of subarachnoid hemorrhage. - EVD - 2% mixed salt at 60 ml/hr goal Na 145-155 checks q 6 hours - PO salt 34 meq TID - Keppra 500 mg BID - Holding PNEUMATIC DEICER INSPECTOR Plavix (placed on after TIA) Sedation/Pain Management: Hx of Chronic back pain - PRN tylenol, hydrocodone and fentanyl if needed - Assess for delirium daily Cardiac: Bradycardia resolved- 2/2 airway obstruction - troponin negative, EKG without ischemia - SBP goal:<160 - PRN Labetolol available Respiratory: Good pulmonary toilet: turn, cough, deep breathe, use of IS. Mobilize when able - Nasal trumpet for obstruction- improved respiratory status GI: - Feeding: NPO - Isosource 1.5 at 40 ml/hr per corpak - neurosurgery bowel regimen, ensure daily BM (last 12/25) Heme: -hold PNEUMATIC DEICER INSPECTOR Plavix and ASA - Hgb 9.1, Plt 165 - daily CBC ID: Leukocytosis resolved- WBC 8.2 - Afebrile - daily CBC Renal: - Cr 0.60 - Aim for normovolemia - Fung replaced d/t urinary retention Intake/Output Summary (Last 24 hours) at 12/26/16 0747 Last data filed at 12/26/16 0700 Gross per 24 hour Intake 1447 ml Output 1655 ml Net -208 ml Endocrine: - Blood glucose goal 100-180mg/dl - A1c 5.2 FEN:Hypokalemia 3.2, Na 149 - 2% infusion - Magnesium goal >2.0, i-Kris goal > 1.0, Potassium goal >4.0 mEq/L - Electrolyte replacement protocol Prophylaxis Review: A)GI: B) Lines:No C) Urinary Catheter:Yes; Fung replaced d/t retention D) Antibiotic Usage:No E) VTE:Mechanical prophylaxis; Sequential compression device F) Isolation:no G)Seizures:keppra I) Restraints: Patient assessed for need for restraints. Disposition/Family:ICU Primary service:ANURAG Consults: RODRIGUE __ SUBJECTIVE Roxy Phillip is a 66 y.o. female. Overnight Events: No new events noted. OBJECTIVE Vital Signs: Last Filed Vital Signs: 24 Hour Range BP: 125/49 (12/26 699) ABP: 136/55 (12/26 699) Temp: 36.7 C (98.1 F) (12/27 399) Pulse: 104 (12/26 699) Respirations: 19 PER MINUTE (12/26 699) SpO2: 100 % (12/26 699) O2 Delivery: Non Rebreather (12/27 399) Weight: 54.4 kg (119 lb 14.9 oz) (12/27 399) BP: (103-141)/(45-81) ABP: (113-168)/(46-72) Temp: [36.7 C (98 F)-37 C (98.6 F)] Pulse: [66-106] Respirations: [15 PER MINUTE-27 PER MINUTE] SpO2: [92 %-100 %] O2 Delivery: Non Rebreather Intensity Pain Scale 0-10 (Pain 1): (not recorded) Vitals: 12/24/16 0400 12/25/16 0500 12/26/16 0400 Weight: 55.4 kg (122 lb 2.2 oz) 56.4 kg (124 lb 5.4 oz) 54.4 kg (119 lb 14.9 oz ) Artificial airway: None Ventilator/ Respiratory Therapy: No Vent weaning trial: Not applicable Lines: Peripheral Line Drains: Fung Catheter: 0 mL and Nasogastric tube: 00 mL Scheduled Meds: docusate (COLACE) oral solution 100 mg 100 mg Per [place] Tube BID levETIRAcetam (KEPPRA) oral solution 500 mg 500 mg Per [place] Tube BID milk of magnesia (CONC) oral suspension 10 mL 10 mL Per [place] Tube QDAY senna/docusate (SENOKOT-S) solution 10 mL 10 mL Per [place] Tube BID sodium chloride(#) inj for po solution 34 mEq 34 mEq Per NG tube TID Continuous Infusions: sodium mixed salt 2% infusion (NaCl 1%, Na Acetate 1%) 50 mL/hr at 12/25/16 2213 PRN and Respiratory Meds:calcium gluconate IVPB PRN (General Merchandise Salesperson from Rx) AND Ionized Calcium PRN AND Notify Physician Ongoing, fentaNYL citrate PF Q1H PRN, hydrALAZINE Q6H PRN, HYDROcodone/acetaminophen Q4H PRN, magnesium sulfate PRN AND Magnesium PRN AND Notify Physician Ongoing, ondansetron Q6H PRN , pancrelipase 20,000 Units/ sodium bicarbonate 650 mg(#) PRN (General Merchandise Salesperson from Rx) , potassium chloride SR PRN OR potassium chloride PRN OR potassium chloride PRN Critical Care Vitals: ICP Monitoring: Hemodynamics/Oxycalcs: BP 125/49 (BP Source: Arm, Right) | Pulse 104 | Temp 36.7 C (98.1 F) | Ht 154.9 cm (61") | Wt 54.4 kg (119 lb 14.9 oz) | SpO2 100% | BMI 22.66 kg/m2 Intake/Output Summary: (Last 24 hours) Intake/Output Summary (Last 24 hours) at 12/26/16 0747 Last data filed at 12/26/16 0700 Gross per 24 hour Intake 1447 ml Output 1655 ml Net -208 ml Stool Occurrence: 1 Physical Exam: Blood pressure 125/49, pulse 104, temperature 36.7 C (98.1 F), height 154.9 cm (61"), weight 54.4 kg (119 lb 14.9 oz), SpO2 100 %. Oxford coma score: E: 4 - Opens eyes on own M: 6 - Follows simple motor commands V: 1 - Makes no noise Neuro: Mental Status:awake, global aphasia, right sided neglect, follows commands int Cranial Nerves: Pupil exam: Size : 4Reactivity: brisk Motor: 3/5 right upper localizes 1/5 right lower W/d to painful stim 4/5 moves spontaneous 2/5 follows commands Lungs:clear to auscultation bilaterally Pulmonary:Respiratory status: Stable with nasal trumpet in place Heart:regular rate and rhythm, S1, S2 normal, no murmur, click, rub or gallop Abdomen:soft, non-tender. Bowel sounds normal. No masses, no organomegaly Extremities:extremities normal, atraumatic, no cyanosis or edema Skin:Skin color, texture, turgor normal. No rashes or lesions Lab Review: Pertinent labs reviewed Medications: docusate (COLACE) oral solution 100 mg 100 mg Per [place] Tube BID levETIRAcetam (KEPPRA) oral solution 500 mg 500 mg Per [place] Tube BID milk of magnesia (CONC) oral suspension 10 mL 10 mL Per [place] Tube QDAY senna/docusate (SENOKOT-S) solution 10 mL 10 mL Per [place] Tube BID sodium chloride(#) inj for po solution 34 mEq 34 mEq Per NG tube TID Point of Care Testing: (Last 24 hours): Glucose: (!) 138 (12/26/16 0416) Radiology and Other Diagnostic Procedures Review: all noted I spent 50 minutes managing the care of this patient. Mrs Phillip is critically ill s/p ICH. Cares included: detailed neurologic and systems exam, medication review, laboratory data review and interpretation, electrolyte management, review of available imaging, DVT/PE prophylaxis review, diet review , activity review, and coordination of care with consulted teams. Carrie Lindquist, SURGICAL ELASTIC KNITTER-QLIKVIEW DEVELOPER Date: 12/26/[phone] * Nicole Little RN - 12/25/2016 7:21 PM CDT I have reviewed the notes, assessments, and/or procedures performed by Caitlin Viera RN and concur with her documentation unless otherwise noted. * Inocencoi Haddad - 12/25/2016 6:58 PM CDT Formatting of this note may be different from the original. Neuroscience Critical Care Progress Note Roxy Phillip Admission Date: 12/22/2016 LOS: 3 days Ms Phillip had IPH in her left frontal lobe 3 days ago. She could not have immediate clot evacuation due to clopidogrel for her TIA. She was lethargic and becoming less responsive. A drain catheter was placed by neurosurgery under guidance with some initial drainage of clot yesterday. Today she had bradycardia and pauses of increasing frequency and more prominent raheem-bar breathing during which the respiratory pauses corresponded to the cardiac pauses. The drain catheter was pulled back to reposition and showed improved placement on CT, more drainage of blood, and the bradyarrhythmias became less prominent and the raheem-stoke pattern was less noticeable after the drainage and/or after a nasal trumpet was placed. She continues on 2% mixed salt solution target serum sodium 145-155. 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) 2016 Dementia 12/23/2016 TIA (transient ischemic attack) 12/23/2016 Chronic back pain 12/23/2016 Intraparenchymal hemorrhage of brain (HCC) 12/22/2016 Added automatically from request for surgery [id number] Hospital and ICU course: 12/22: admitted to NICU 12/23: Overnight neuro exam without patient following commands, more lethargic, repeat CT head with minimal changes 12/24: No acute changes overnight, plan OR for drain placement per neurosurgery 12/25: Multiple pauses overnight, longest 3.5 sec, resolved with replacement of K + Neuro: ICH, Hx of TIA - ICH score 2 - OSH Head CT 12/22 large hematoma within left frontal lobe. - 12/23 CT/CTA No evidence of aneurysm or AVM - 2% mixed salt at 60 ml/hr goal Na 145-155 checks q 6 hours - PO salt 34 meq TID - OR 12/24 for drain placement with tPA - Keppra 500 mg BID - Hold PNEUMATIC DEICER INSPECTOR Plavix (placed on after TIA) Sedation/Pain Management: Hx of Chronic back pain - Per Took 10/325mg Hydrocodone q6 hours PNEUMATIC DEICER INSPECTOR- hold for now, use PRNs if needed - Assess for delirium daily Cardiac: - SBP goal:<140 - PRN Labetolol available Respiratory: - On room air Good pulmonary toilet: turn, cough, deep breathe, use of IS. Mobilize when able - Guarded respiratory pattern, now with nasal trumpet GI: - Feeding: NPO - TF per dietary recs today - neurosurgery bowel regimen, ensure daily BM Heme: -hold PNEUMATIC DEICER INSPECTOR Plavix and ASA - 12/24 Hgb 10.6 Plts 184 (trending down) - 12/25 Hgb 9.3 Plts 167 - assess for coagulopathy, maintain platelets above 100k, INR <1.5 - Holding anticoagulation ID: - aim for normothermia - Afebrile - 12/24 WBCs 11.9 (stable) - 12/25 WBCs 11.8 Temp <38.3 celsius, normothermia protocol if febrile Renal: - 12/24 BUN/Creat 11/0.70 - 12/25 BUN/Cr 14/0.64 - Aim for normovolemia - Fung replaced d/t urinary retention Intake/Output Summary (Last 24 hours) at 12/25/16 1858 Last data filed at 12/25/16 1800 Gross per 24 hour Intake 1565 ml Output 1240 ml Net 325 ml Endocrine: - Blood glucose goal 100-180mg/dl - A1c 5.2 FEN: - 2% at 50 ml/hr goal Na 145-155 checks q 6 hours - increase PO salt to 34 meq TID - Magnesium goal >2.0, i-Kris goal > 1.0, Potassium goal >4.0 mEq/L - Electrolyte replacement protocol Prophylaxis Review: A)GI: B) Lines:No C) Urinary Catheter:Yes; Fung replaced d/t retention D) Antibiotic Usage:No E) VTE:Mechanical prophylaxis; Sequential compression device F) Isolation:no G)Seizures:keppra I) Restraints: Patient assessed for need for restraints. Disposition/Family:ICU Primary service:NS Consults: RODRIGUE __ SUBJECTIVE Roxy Phillip is a 66 y.o. female. Overnight Events: No new events noted. OBJECTIVE Vital Signs: Last Filed Vital Signs: 24 Hour Range BP: 132/57 (12/25 1799) ABP: 166/68 (12/25 1799) Temp: 36.7 C (98 F) (12/25 1600) Pulse: 73 (12/25 1799) Respirations: 21 PER MINUTE (12/25 1799) SpO2: 97 % (12/25 1799) O2 Delivery: Nasal Cannula (12/25 1000) Weight: 56.4 kg (124 lb 5.4 oz) (12/25 0500) BP: (103-141)/(45-67) ABP: (113-166)/(51-72) Temp: [36.7 C (98 F)-38.1 C (100.6 F)] Pulse: [66-85] Respirations: [15 PER MINUTE-29 PER MINUTE] SpO2: [92 %-100 %] O2 Delivery: Nasal Cannula Intensity Pain Scale 0-10 (Pain 1): (not recorded) Vitals: 12/23/16 0400 12/24/16 0400 12/25/16 0500 Weight: 57.1 kg (125 lb 14.1 oz) 55.4 kg (122 lb 2.2 oz) 56.4 kg (124 lb 5.4 oz ) Artificial airway: None Ventilator/ Respiratory Therapy: No Vent weaning trial: Not applicable Lines: Peripheral Line Drains: Fung Catheter: 0 mL and Nasogastric tube: 00 mL Scheduled Meds: docusate (COLACE) oral solution 100 mg 100 mg Per [place] Tube BID levETIRAcetam (KEPPRA) oral solution 500 mg 500 mg Per [place] Tube BID milk of magnesia (CONC) oral suspension 10 mL 10 mL Per [place] Tube QDAY senna/docusate (SENOKOT-S) solution 10 mL 10 mL Per [place] Tube BID sodium chloride(#) inj for po solution 34 mEq 34 mEq Per NG tube TID Continuous Infusions: sodium mixed salt 2% infusion (NaCl 1%, Na Acetate 1%) 60 mL/hr at 12/25/16 1438 PRN and Respiratory Meds:calcium gluconate IVPB PRN (General Merchandise Salesperson from Rx) AND Ionized Calcium PRN AND Notify Physician Ongoing, fentaNYL citrate PF Q1H PRN, hydrALAZINE Q6H PRN, HYDROcodone/acetaminophen Q4H PRN, magnesium sulfate PRN AND Magnesium PRN AND Notify Physician Ongoing, ondansetron Q6H PRN , pancrelipase 20,000 Units/ sodium bicarbonate 650 mg(#) PRN (General Merchandise Salesperson from [employer]) , potassium chloride SR PRN OR potassium chloride PRN OR potassium chloride PRN Critical Care Vitals: ICP Monitoring: Hemodynamics/Oxycalcs: BP 132/57 (BP Source: Arm, Right) | Pulse 73 | Temp 36.7 C (98 F) | Ht 154.9 cm (61") | Wt 56.4 kg (124 lb 5.4 oz) | SpO2 97% | BMI 23.49 kg/m2 Intake/Output Summary: (Last 24 hours) Intake/Output Summary (Last 24 hours) at 12/25/16 6168 Last data filed at 12/25/16 1800 Gross per 24 hour Intake 1565 ml Output 1240 ml Net 325 ml Stool Occurrence: 1 Physical Exam: Blood pressure 132/57, pulse 73, temperature 36.7 C (98 F), height 154.9 cm (61"), weight 56.4 kg (124 lb 5.4 oz), SpO2 97 %. Oxford coma score: E: 4 - Opens eyes on own M: 6 - Follows simple motor commands V: 1 - Makes no noise Neuro: Mental Status:global aphasia, right sided neglect, alert. Cranial Nerves: Pupil exam: Size : 4Reactivity: brisk Motor: 3/5 right upper localizes 2/5 right lower W/d to painful stim 3/5 left upper localizes 2/5 left lower W/d to painful stim Lungs:clear to auscultation bilaterally Pulmonary:Respiratory status: Stable Heart:regular rate and rhythm, S1, S2 normal, no murmur, click, rub or gallop Abdomen:soft, non-tender. Bowel sounds normal. No masses, no organomegaly Extremities:extremities normal, atraumatic, no cyanosis or edema Skin:Skin color, texture, turgor normal. No rashes or lesions Lab Review: Pertinent labs reviewed Medications: docusate (COLACE) oral solution 100 mg 100 mg Per [place] Tube BID levETIRAcetam (KEPPRA) oral solution 500 mg 500 mg Per [place] Tube BID milk of magnesia (CONC) oral suspension 10 mL 10 mL Per [place] Tube QDAY senna/docusate (SENOKOT-S) solution 10 mL 10 mL Per [place] Tube BID sodium chloride(#) inj for po solution 34 mEq 34 mEq Per NG tube TID Point of Care Testing: (Last 24 hours): Glucose: (!) 126 (12/25/16 8885) Radiology and Other Diagnostic Procedures Review: all noted Critical care 50 min Inocencio Haddad Date: 12/25/[phone] * Gurvinder Galicia - 12/25/2016 2:23 PM CDT SPEECH-LANGUAGE PATHOLOGY DAILY TREATMENT NOTE Patient seen 1x this date. Documentation reflects all daily treatment sessions. SUMMARY OF THERAPY SESSION: Daily dysphagia treatment completed. Severe oropharyngeal dysphagia characterized by weakness and reduced arousal and lethargy due to recent CVA. No PO trials provided on this date due to reduced arousal. No swallows elicited during the session. Pt's spouse present during session. Education provided to spouse re: recommendations. RECOMMENDATIONS: Remain NPO at this time w/ continued use of Corpak. Meds via Corpak. Excellent oral care. Ongoing dysphagia assessment and treatment. Goal : Pt will participate in ongoing dysphagia assessment and treatment. Partly met Comment: Pt did not open mouth or demonstrate intentional movement of lips or tongue upon presentation of moist oral swab. Oral care limited due to pt's lethargy on this date. No PO trials presented due to pt's lethargy and reduced arousal. No swallows were elicited during the session. Continue to address this goal PLAN / RECOMMENDATIONS: Continue treatment 3-5x/week and Patient would benefit from further speech therapy post acute hospitalization. Therapist: SUZANNE Perez, CF-C IRON WORKER [phone] Date: 12/25/2016 * Carrie Pack, OT - 12/25/2016 11:34 AM CDT OCCUPATIONAL THERAPY PROGRESS NOTE Admitting Diagnosis: large left front hematoma Hemorrhagic stroke (HCC) Patient seen x1 this date. Documentation reflects all daily treatment sessions. Subjective Pertinent Dx per Physician: 66 y.o. female PMH TIA, dementia, osteoporosis, arthritis, chronic back pain, admitted to [facility] with Left frontal IPH on . Patient to OR for hematoma evacuation and EVD placement on 12/24. Precautions: Falls;EVD (RN clamped prior to therapy) Pain / Complaints: Patient demonstrates no signs of pain Objective Persons Present: Spouse;PT Vision Comment: Patient opened eyes to name/voice consistently and looked at person speaking. ADL's Where Assessed: Edge of Bed Grooming Assist: Maximum Assist Grooming Deficits: Wash/Dry Hands Comment: Supine to Sit: Maximum Assist x2. Patient sat at EOB x10 mins with minimal assist to stand by assist. Patient stood 1x, see PT note for further details. Sit to Supine: Moderate Assist. Cognition Overall Cognitive Status: Impaired Assessment Assessment: Decreased ADL Status;Decreased Safe/Judg during ADL;Decreased Cognition;Decreased Endurance;Decreased Self-Care Trans Prognosis: Good;w/Cont OT s/p Acute Discharge Plan Treatment Interventions: ADL Retraining;Functional Transfer Training;Endurance Training;Cognitive Reorientation;Patient/Family Training;Neuromuscular Reeducation;Compensatory Technique Education OT Frequency: 5x/week Further Evaluation Goals Pt Will Tolerate Further ADL Evaluation: w/in 3-5 sessions Pt Will Tolerate Further UE Status Evaluation: w/in 3-5 sessions Pt Will Tolerate Further Visual Evaluation: w/in 3-5 sessions ADL Goals Other ADL Goal 1: Patient will tolerate sitting at EOB x10 mins with moderate assist to participate in ADLs. Discharge Recommendations: an inpatient setting Equipment Recommendations: Too early to be determined Therapist: HENRY James/Bharati [id number] Date: 12/25/2016 * Kyle Christensen - 12/25/2016 11:34 AM CDT PHYSICAL THERAPY PROGRESS NOTE MOBILITY: Mobility Progressive Mobility Level: Stand Level of Assistance: Assist X2 Assistive Device: None Time Tolerated: 0-10 minutes Activity Limited By: Lethargy;Mental Status Variability SUBJECTIVE: Subjective Significant hospital events: 66 y.o. female PMH TIA, dementia, osteoporosis, arthritis, chronic back pain, admitted to [facility] with ICH on 12/22/16. 12/24 CRANIOTOMY EVACUATION HEMATOMA an EVD placed Mental / Cognitive Status: Inconsistent with Command Following;Lethargic; Withdrawn Persons Present: OT;Family Pain: Patient demonstrates no signs of pain Precautions: EVD Comments: Patient was unable to respond to any questions but was more alert today. She would resond to stimuli by opening her eyes. She was inconsistent with command folllwing, but she was able to folllow more commands with her UEs then her LEs. BED MOBILITY/TRANSFERS: Bed Mobility/Transfers Bed Mobility: Supine to Sit: Dependent Assist;x2 People Transfer Type: Sit to Stand Transfer: Assistance Level: From;Bed;Maximal Assist;x2 People Transfer: Assistive Device: None Transfers: Type Of Assistance: Verbal Cues;For Strength Deficit;For Safety Considerations End Of Activity Status: In Bed;Nursing Notified;Instructed Patient to Request Assist with Mobility;Instructed Patient to Use Call Light BALANCE: Balance Sitting Balance: Static Sitting Balance;2 UE Support;Stand by Assist Comments: patient was able to hold herself up on the edge of the bed with both of her hands with stand by assistance. 10 % of the time she did require minimal assistance to correct her sitting posture. She was able to bear weight through her RUE in sitting. ACTIVITY/EXERCISE: Activity / Exercise Sit Edge Of Bed: 10 minutes Sit Edge Of Bed Assist: Minimal Assist Stand At Bedside : 2 minutes Stand At Bedside Assist: Moderate Assist;x2 People Comments: patient was a moderate assist of two people when standing at bed side. patient was able to support her body with the use of her lower extremities. At time she would lean back on the bed to give her more support in standing. EDUCATION: Education Persons Educated: Patient/Family Patient Barriers To Learning: Decreased Alertness;Impaired Communication Interventions: Family Education Teaching Methods: Verbal Instruction Patient Response: More Instruction Required Topics: Plan/Goals of PT Interventions ASSESSMENT/PROGRESS: Assessment/Progress Impaired Mobility Due To: Decreased Level of Alertness Assessment/Progress: Expect Slow Progress;Should Improve w/ Continued PT GOALS: Goals Goal Formulation: With Family, Patient Unable to Participate in Goal Setting Pt Will Go Sit to Supine : w/ Moderate Assist Pt Will Logroll: w/ Moderate Assist Pt Will Transfer Bed/Chair: New Goal, w/ Moderate Assist, w/ Assist of 2 Pt Will Transfer Sit to Stand: w/ Maximum Assist, w/ Assist of 2 PLAN: Plan Treatment Interventions: Strengthening;Mobility Training Plan Frequency: 5 Days per Week Comments: Progress edge of bed activites and transfers as patient increases alertness. RECOMMENDATIONS: PT Discharge Recommendations PT Discharge Recommendations: Inpatient Setting Equipment Recommendations: Too early to be determined Therapist: Kyle Christensen, SPT Date: 12/25/2016 Associated attestation - Donna Luque PT - 12/25/2016 2:22 PM CDT I was present and involved in directing the care of the patient throughout the physical therapy session. * Ashia Patterson APRN - 12/25/2016 5:56 AM CDT Formatting of this note may be different from the original. 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) 2016 Dementia 12/23/2016 TIA (transient ischemic attack) 12/23/2016 Chronic back pain 12/23/2016 Intraparenchymal hemorrhage of brain (HCC) 12/22/2016 Added automatically from request for surgery [id number] Hospital and ICU course: 12/22: admitted to NICU 12/23: Overnight neuro exam without patient following commands, more lethargic, repeat CT head with minimal changes 12/24: No acute changes overnight, plan OR for drain placement per neurosurgery 12/25: Multiple pauses overnight, longest 3.5 sec, resolved with replacement of K + Neuro: ICH, Hx of TIA - ICH score 2 - OSH Head CT 12/22 large hematoma within left frontal lobe. - 12/23 CT/CTA No evidence of aneurysm or AVM - Repeat CT head at 1100 today - 2% mixed salt at 60 ml/hr goal Na 145-155 checks q 6 hours - PO salt 34 meq TID - OR 12/24 for drain placement with tPA - Keppra 500 mg BID - Hold PNEUMATIC DEICER INSPECTOR Plavix (placed on after TIA) Sedation/Pain Management: Hx of Chronic back pain - Per Took 10/325mg Hydrocodone q6 hours PNEUMATIC DEICER INSPECTOR- hold for now, use PRNs if needed - Assess for delirium daily Cardiac: - SBP goal:<160 - PRN Labetolol available Respiratory: - On room air Good pulmonary toilet: turn, cough, deep breathe, use of IS. Mobilize when able - Guarded respiratory status - Last AB.42 / 37 / 165 / 24.4 - on 7L high flow, titrate down O2 GI: - Feeding: NPO - Start TF per dietary recs today - neurosurgery bowel regimen, ensure daily BM Heme: -hold PNEUMATIC DEICER INSPECTOR Plavix and ASA - 12/24 Hgb 10.6 Plts 184 (trending down) - 12/25 Hgb 9.3 Plts 167 - assess for coagulopathy, maintain platelets above 100k, INR <1.5 - Holding anticoagulation ID: - aim for normothermia - Afebrile - 12/24 WBCs 11.9 (stable) - 12/25 WBCs 11.8 Temp <38.3 celsius, normothermia protocol if febrile Renal: - 12/24 BUN/Creat 11/0.70 - 12/25 BUN/Cr 14/0.64 - Aim for normovolemia - Fung replaced d/t urinary retention Intake/Output Summary (Last 24 hours) at 12/25/16 0556 Last data filed at 12/25/16 0500 Gross per 24 hour Intake 3125 ml Output 2640 ml Net 485 ml Endocrine: - Blood glucose goal 100-180mg/dl - A1c 5.2 FEN: - 2% at 75 ml/hr goal Na 145-155 checks q 6 hours - increase PO salt to 34 meq TID - Magnesium goal >2.0, i-Kris goal > 1.0, Potassium goal >4.0 mEq/L - Electrolyte replacement protocol Prophylaxis Review: A)GI: B) Lines:No C) Urinary Catheter:Yes; Fung replaced d/t retention D) Antibiotic Usage:No E) VTE:Mechanical prophylaxis; Sequential compression device F) Isolation:no G)Seizures:keppra I) Restraints: Patient assessed for need for restraints. Disposition/Family:ICU Primary service:NS Consults: RODRIGUE __ SUBJECTIVE Roxy Phillip is a 66 y.o. female. Overnight Events: No new events noted. OBJECTIVE Vital Signs: Last Filed Vital Signs: 24 Hour Range BP: 115/50 (12/25 499) ABP: 134/52 (12/25 499) Temp: 37.4 C (99.3 F) (12/26 399) Pulse: 72 (12/25 499) Respirations: 23 PER MINUTE (12/25 499) SpO2: 99 % (12/25 499) O2 Delivery: Nasal Cannula (12/25 499) Weight: 56.4 kg (124 lb 5.4 oz) (12/25 499) BP: (110-160)/(47-76) ABP: (134-167)/(52-77) Temp: [36.8 C (98.3 F)-38.1 C (100.6 F)] Pulse: [72-98] Respirations: [14 PER MINUTE-31 PER MINUTE] SpO2: [93 %-100 %] O2 Delivery: Nasal Cannula Intensity Pain Scale 0-10 (Pain 1): (not recorded) Vitals: 12/23/16 0400 12/24/16 0400 12/25/16 0500 Weight: 57.1 kg (125 lb 14.1 oz) 55.4 kg (122 lb 2.2 oz) 56.4 kg (124 lb 5.4 oz ) Artificial airway: None Ventilator/ Respiratory Therapy: No Vent weaning trial: Not applicable Lines: Peripheral Line Drains: Fung Catheter: 0 mL and Nasogastric tube: 00 mL Scheduled Meds: ceFAZolin (ANCEF) IVP 1 g 1 g Intravenous Q8H* docusate (COLACE) oral solution 100 mg 100 mg Per [place] Tube BID levETIRAcetam (KEPPRA) oral solution 500 mg 500 mg Per [place] Tube BID milk of magnesia (CONC) oral suspension 10 mL 10 mL Per [place] Tube QDAY senna/docusate (SENOKOT-S) solution 10 mL 10 mL Per [place] Tube BID sodium chloride(#) inj for po solution 34 mEq 34 mEq Per NG tube TID Continuous Infusions: sodium mixed salt 2% infusion (NaCl 1%, Na Acetate 1%) 60 mL/hr at 12/25/16 0541 PRN and Respiratory Meds:calcium gluconate IVPB PRN (General Merchandise Salesperson from Rx) AND Ionized Calcium PRN AND Notify Physician Ongoing, fentaNYL citrate PF Q1H PRN, hydrALAZINE Q6H PRN, HYDROcodone/acetaminophen Q4H PRN, labetalol ( NORMODYNE; TRANDATE) injection Q15 MIN PRN, magnesium sulfate PRN AND Magnesium PRN AND Notify Physician Ongoing, ondansetron Q6H PRN, potassium chloride SR PRN OR potassium chloride PRN OR potassium chloride PRN Critical Care Vitals: ICP Monitoring: Hemodynamics/Oxycalcs: BP 115/50 (BP Source: Arm, Right) | Pulse 72 | Temp 37.4 C (99.3 F) | Ht 154.9 cm (61") | Wt 56.4 kg (124 lb 5.4 oz) | SpO2 99% | BMI 23.49 kg/m2 Intake/Output Summary: (Last 24 hours) Intake/Output Summary (Last 24 hours) at 12/25/16 0556 Last data filed at 12/25/16 0500 Gross per 24 hour Intake 3125 ml Output 2640 ml Net 485 ml Stool Occurrence: 1 Physical Exam: Blood pressure 115/50, pulse 72, temperature 37.4 C (99.3 F), height 154.9 cm (61"), weight 56.4 kg (124 lb 5.4 oz), SpO2 99 %. Oxford coma score: E: 4 - Opens eyes on own M: 6 - Follows simple motor commands V: 1 - Makes no noise Neuro: Mental Status:global aphasia, right sided neglect, alert. Cranial Nerves: Pupil exam: Size : 4Reactivity: brisk Motor: 3/5 right upper localizes 2/5 right lower W/d to painful stim 3/5 left upper localizes 2/5 left lower W/d to painful stim Lungs:clear to auscultation bilaterally Pulmonary:Respiratory status: Stable Heart:regular rate and rhythm, S1, S2 normal, no murmur, click, rub or gallop Abdomen:soft, non-tender. Bowel sounds normal. No masses, no organomegaly Extremities:extremities normal, atraumatic, no cyanosis or edema Skin:Skin color, texture, turgor normal. No rashes or lesions Lab Review: Pertinent labs reviewed Medications: ceFAZolin (ANCEF) IVP 1 g 1 g Intravenous Q8H* docusate (COLACE) oral solution 100 mg 100 mg Per [place] Tube BID levETIRAcetam (KEPPRA) oral solution 500 mg 500 mg Per [place] Tube BID milk of magnesia (CONC) oral suspension 10 mL 10 mL Per [place] Tube QDAY senna/docusate (SENOKOT-S) solution 10 mL 10 mL Per [place] Tube BID sodium chloride(#) inj for po solution 34 mEq 34 mEq Per NG tube TID Point of Care Testing: (Last 24 hours): Glucose: (!) 126 (12/25/16 0335) Radiology and Other Diagnostic Procedures Review: all noted I spent 45 minutes managing the care of this patient. Mrs Phillip is critically ill s/p ICH. Cares included: detailed neurologic and systems exam, medication review, laboratory data review and interpretation, electrolyte management, review of available imaging, DVT/PE prophylaxis review, diet review , activity review, and coordination of care with consulted teams. Ashia Patterson, JAYLA Date: 12/25/[phone] * Nicole Little RN - 12/24/2016 6:55 PM CDT Pt SBP lingering between 150-155 at this time despite labetalol and hydralazine being given. Pt very lethargic at this time, so there is concern for giving her pain meds at this time. MD informed RN that slightly elevated SBP would be less harmful than decreasing neuro exam any further. Decision was made to watch patient for one hour and then readdress situation unless SBP continued to increase. Will continue to monitor and address as needed. * Nicole Little, RN - 12/24/2016 6:34 PM CDT I have reviewed the notes, assessments, and/or procedures performed by Caitlin Viera RN and concur with her documentation unless otherwise noted. * Caitlin Viera RN - 12/24/2016 5:15 PM CDT Upon arrival, patient had agonal breathing, with oxygenation status at 82%. Her oxygen was increased to 7 lmp to sustain a oxygenation status above 92%. Will continue to monitor. * Caitlin Viera RN - 12/24/2016 5:00 PM CDT Patient is back in room from OR. Will continue to monitor * Caitlin Viera RN - 12/24/2016 2:14 PM CDT Patient transported to OR with RNJaelyn TSAI. * Donna Luque, PT - 12/24/2016 2:13 PM CDT PHYSICAL THERAPY NOTE Patient was unavailable for physical therapy; pt in OR. Physical therapy will continue to follow and provide intervention as indicated. Therapist: Donna Luque, PT Date: 12/24/2016 * Carrie Pack, OT - 12/24/2016 1:52 PM CDT OCCUPATIONAL THERAPY NO TREATMENT NOTE The patient was not seen due to going to OR for hematoma evacuation. Will follow and provide OT intervention as indicated. Therapist: Carrie Pack, HENRY/Bharati [id number] Date: 12/24/2016 * Inocencio Haddad - 12/24/2016 11:23 AM CDT Formatting of this note may be different from the original. 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 The bleed appears to have been cortical and may have been amyloid associated although underlying tumor cannot be excluded. Repeat CT head this morning shows continued midline shift and enlarged contralateral right frontal horn of the lateral ventricle. I could not see appreciable edema surrounding this but as the blood is resorbed through the process of neuroinflammation there will be considerable perihematomal edema and she may not be able to tolerate this. The neurosurgeons plan catheter evacuation of the hematoma. The thromboelastogram looks like she is able to form good clot. The platelet function assay shows residual aspirin effect. Percent inhibition study was also sent. She has adequate platelet level. She is at risk of hydrocephalus, rebleeding and herniation, cerebral edema if the clot is not evacuated. Yesterday she seemed to be on the precipice of respiratory failure but today I think she will be doing okay. After intubation it is possible that she would have a delayed extubation - although I would prefer that she be immediately extubated in order to get the best exams. She is at risk also of aspiration and pneumonia due to poor cough. She will also eventually need further evaluation for her previous TIA including: Carotid doppler Echo Hypercoag? Telemetry monitoring - ongoing A1c - 5.2 on 12/23 Lipids -spec in lab from arrival Hospital and ICU course: 12/22: admitted to NICU 12/23: Overnight neuro exam without patient following commands, more lethargic, repeat CT head with minimal changes Neuro: ICH, Hx of TIA - ICH score 2 - repeat head CT unchanged left frontal intracranial hemorrhage - 2% at 50 ml/hr goal Na 145-155 checks q 6 hours - OR plan per NS - Keppra 500 mg BID - watch for hydrocephalus - OT/PT - Hold PNEUMATIC DEICER INSPECTOR Plavix (placed on after TIA) Sedation/Pain Management: Hx of Chronic back pain - Per Took 10/325mg Hydrocodone q6 hours PNEUMATIC DEICER INSPECTOR- hold for now, use PRNs if needed - Assess for delirium daily Cardiac: - SBP goal: <140 - PRN Labetolol available Respiratory: - On room air Poor pulmonary toilet: turn, cough, deep breathe, use of IS. Mobilize when able - Guarded respiratory status - ABG this am: 7.48/33/71/25.5 - this is hyperventilation due to her neurologic injury GI: - Feeding: NPO, hold tube feeds until after the procedure - neurosurgery bowel regimen, ensure daily BM Heme: hold PNEUMATIC DEICER INSPECTOR Plavix and ASA - assess for coagulopathy, maintain platelets above 100k, INR <1.5 - Holding anticoagulation ID: - aim for normothermia, Temp <38.3 celsius, normothermia protocol if febrile Renal: -BUN/Creat 11/0.70 - Aim for normovolemia - Fung replaced d/t urinary retention Intake/Output Summary (Last 24 hours) at 12/24/16 1123 Last data filed at 12/24/16 0800 Gross per 24 hour Intake 1645 ml Output 2190 ml Net -545 ml Endocrine: - Blood glucose goal 100-180mg/dl - A1c 5.2 FEN: - 2% at 50 ml/hr goal Na 145-155 checks q 6 hours - Magnesium goal >2.0, i-Kris goal > 1.0, Potassium goal >4.0 mEq/L - Electrolyte replacement protocol Prophylaxis Review: A)GI: B) Lines: No C) Urinary Catheter: Yes; Fung replaced d/t retention D) Antibiotic Usage: No E) VTE: Mechanical prophylaxis; Sequential compression device F) Isolation: no G)Seizures: keppra I) Restraints: Patient assessed for need for restraints. Disposition/Family: ICU Primary service: NS Consults: RODRIGUE __ SUBJECTIVE Roxy Phillip is a 66 y.o. female. Overnight Events: No new events noted. OBJECTIVE Vital Signs: Last Filed Vital Signs: 24 Hour Range BP: 140/72 (12/24 999) Temp: 36.9 C (98.5 F) (12/25 0700) Pulse: 84 (12/24 1000) Respirations: 25 PER MINUTE (12/24 999) SpO2: 95 % (12/24 999) O2 Delivery: None (Room Air) (08/09 1000) Weight: 55.4 kg (122 lb 2.2 oz) (12/24 0400) BP: (116-149)/(53-77) Temp: [36.7 C (98 F)-37.9 C (100.2 F)] Pulse: [78-104] Respirations: [23 PER MINUTE-32 PER MINUTE] SpO2: [95 %-99 %] O2 Delivery: None (Room Air) Intensity Pain Scale 0-10 (Pain 1): (not recorded) Vitals: 12/22/16 1314 12/23/16 0400 12/24/16 0400 Weight: 56.1 kg (123 lb 10.9 oz) 57.1 kg (125 lb 14.1 oz) 55.4 kg (122 lb 2.2 oz ) Artificial airway: None Ventilator/ Respiratory Therapy: No Vent weaning trial: Not applicable Lines: Peripheral Line Drains: Nasogastric tube Scheduled Meds: docusate (COLACE) oral solution 100 mg 100 mg Per [place] Tube BID levETIRAcetam (KEPPRA) 500 mg in sodium chloride 0.9% (NS) 100 mL IVPB 500 mg Intravenous BID milk of magnesia (CONC) oral suspension 10 mL 10 mL Per [place] Tube QDAY senna/docusate (SENOKOT-S) solution 10 mL 10 mL Per [place] Tube BID sodium chloride(#) inj for po solution 34 mEq 34 mEq Per NG tube TID Continuous Infusions: sodium mixed salt 2% infusion (NaCl 1%, Na Acetate 1%) 75 mL/hr at 12/24/16 1111 PRN and Respiratory Meds:calcium gluconate IVPB PRN (General Merchandise Salesperson from Rx) AND Ionized Calcium PRN AND Notify Physician Ongoing, fentaNYL citrate PF Q1H PRN, hydrALAZINE Q6H PRN, HYDROcodone/acetaminophen Q4H PRN, labetalol ( NORMODYNE; TRANDATE) injection Q15 MIN PRN, magnesium sulfate PRN AND Magnesium PRN AND Notify Physician Ongoing, ondansetron Q6H PRN, potassium chloride SR PRN OR potassium chloride PRN OR potassium chloride PRN Critical Care Vitals: ICP Monitoring: Hemodynamics/Oxycalcs: BP 140/72 (BP Source: Arm, Right) | Pulse 84 | Temp 36.9 C (98.5 F) | Ht 154.9 cm (61") | Wt 55.4 kg (122 lb 2.2 oz) | SpO2 95% | BMI 23.08 kg/m2 Intake/Output Summary: (Last 24 hours) Intake/Output Summary (Last 24 hours) at 12/24/16 1123 Last data filed at 12/24/16 0800 Gross per 24 hour Intake 1645 ml Output 2190 ml Net -545 ml Stool Occurrence: 1 Physical Exam: Blood pressure 140/72, pulse 84, temperature 36.9 C (98.5 F), height 154.9 cm (61"), weight 55.4 kg (122 lb 2.2 oz), SpO2 95 %. Osbaldo coma score: E: 4 - Opens eyes on own M: 6 - Follows simple motor commands V: 1 - Makes no noise Neuro: Mental Status: global aphasia, right sided neglect, alert. Cranial Nerves: Pupil exam: Size: 4 Reactivity: brisk Motor: 3/5 right upper localizes 2/5 right lower W/d to painful stim 3/5 left upper localizes 2/5 left lower W/d to painful stim Lungs: clear to auscultation bilaterally Pulmonary: Respiratory status: Stable Heart: regular rate and rhythm, S1, S2 normal, no murmur, click, rub or gallop Abdomen: soft, non-tender. Bowel sounds normal. No masses, no organomegaly Extremities: extremities normal, atraumatic, no cyanosis or edema Skin: Skin color, texture, turgor normal. No rashes or lesions Lab Review: Pertinent labs reviewed Medications: docusate (COLACE) oral solution 100 mg 100 mg Per [place] Tube BID levETIRAcetam (KEPPRA) 500 mg in sodium chloride 0.9% (NS) 100 mL IVPB 500 mg Intravenous BID milk of magnesia (CONC) oral suspension 10 mL 10 mL Per [place] Tube QDAY senna/docusate (SENOKOT-S) solution 10 mL 10 mL Per [place] Tube BID sodium chloride(#) inj for po solution 34 mEq 34 mEq Per NG tube TID Point of Care Testing: (Last 24 hours): Glucose: (!) 144 (12/24/16 0400) Radiology and Other Diagnostic Procedures Review: all noted Critical care 60 minutes Inocencio Haddad Date: 12/24/[phone] * Gurvinder Galicia - 12/24/2016 10:10 AM CDT SPEECH-LANGUAGE PATHOLOGY NO TREATMENT NOTE Per discussion w/ RN, pt NPO for procedure later this date and remains lethargic w/ decreased arousal. Will f/u 12/25 as pt is appropriate. Therapist: SUZANNE Perez, CF-C IRON WORKER [phone] Date: 12/24/2016 * Angela Benavides APRN - 12/24/2016 7:49 AM CDT Formatting of this note may be different from the original. Neurosurgery Progress Note SUBJECTIVE: Seen this am with rounding team. Family at bedside. Plan for OR today. 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 PERRL bilateral Localize LUE and spont moved LLE wdraws RUE better than RLE ASSESSMENT/PLAN: 66 y.o. female with large left frontal intraparenchymal hemorrhage on ASA/ Plavix. Active Hospital Problems Diagnosis Intraparenchymal hemorrhage of brain (HCC) Added automatically from request for surgery [id number] Nontraumatic cortical hemorrhage of left cerebral hemisphere (HCC) Dementia TIA (transient ischemic attack) Chronic back pain Off label Hilario, consented, pre op complete, marked CT head 12/23 stable, head CT 12/24 for OR planning Na- 144, On 2% @75, goal 145-155 Keppra PNEUMATIC DEICER INSPECTOR ASA/Plavix held Q1H neurochecks PT/OT inpatient setting (will need rehab consult) ST, NPO SW for DC planning Prophylaxis: A)GI: PPI B) Lines: No C) Urinary Catheter: No D) Antibiotic Usage: No E) VTE: Pharmacological prophylaxis; Contraindication: Bleeding risk; No SQH large ICH with hx of ASA/Plavix and Mechanical prophylaxis; Sequential compression device F) Restraints: Patient assessed for need for restraints. Angela Benavides SURGICAL ELASTIC KNITTER [phone] Please call [phone] with any questions. * Robbie Singh, SURGICAL ELASTIC KNITTER - 12/24/2016 7:03 AM CDT Formatting of this note may be different from the original. 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 - 12/23 CT/CTA No evidence of aneurysm or AVM - Repeat CT head at 1100 today - 2% at 75 ml/hr goal Na 145-155 checks q 6 hours (change to buffered 2%) - PO salt 34 meq TID - OR today for drain placement - Keppra 500 mg BID - OT/PT - Hold PNEUMATIC DEICER INSPECTOR Plavix (placed on after TIA) Sedation/Pain Management: Hx of Chronic back pain - Per Took 10/325mg Hydrocodone q6 hours PNEUMATIC DEICER INSPECTOR- hold for now, use PRNs if needed - Assess for delirium daily Cardiac: - SBP goal:<140 - PRN Labetolol available Respiratory: - On room air Good pulmonary toilet: turn, cough, deep breathe, use of IS. Mobilize when able - Guarded respiratory status - Last AB.46/33/75/24.6 on room air GI: - Feeding: NPO - Consult RD for tubefeed recs. Will start feeds later today post procedurally - neurosurgery bowel regimen, ensure daily BM Heme: -hold PNEUMATIC DEICER INSPECTOR Plavix and ASA - assess for coagulopathy, maintain platelets above 100k, INR <1.5 - Holding anticoagulation ID: - aim for normothermia Temp <38.3 celsius, normothermia protocol if febrile Renal: -BUN/Creat 11/0.70 - Aim for normovolemia - Fung replaced d/t urinary retention Intake/Output Summary (Last 24 hours) at 12/24/16709 Last data filed at 12/24/16 06 Gross per 24 hour Intake 1990 ml Output 2040 ml Net -50 ml Endocrine: - Blood glucose goal 100-180mg/dl - A1c 5.2 FEN: - 2% at 75 ml/hr goal Na 145-155 checks q 6 hours - increase PO salt to 34 meq TID - Magnesium goal >2.0, i-Kris goal > 1.0, Potassium goal >4.0 mEq/L - Electrolyte replacement protocol Prophylaxis Review: A)GI: B) Lines:No C) Urinary Catheter:Yes; Fung replaced d/t retention D) Antibiotic Usage:No E) VTE:Mechanical prophylaxis; Sequential compression device F) Isolation:no G)Seizures:keppra I) Restraints: Patient assessed for need for restraints. Disposition/Family:ICU Primary service:ANURAG Consults: RODRIGUE __ SUBJECTIVE Roxy Phillip is a 66 y.o. female. Overnight Events: No new events noted. OBJECTIVE Vital Signs: Last Filed Vital Signs: 24 Hour Range BP: 147/65 (12/24 599) Temp: 37.2 C (98.9 F) (12/24 0400) Pulse: 98 (12/24 599) Respirations: 24 PER MINUTE (12/24 599) SpO2: 99 % (12/24 599) O2 Delivery: None (Room Air) (08/09 0600) Weight: 55.4 kg (122 lb 2.2 oz) (12/25 399) BP: (116-149)/(53-77) Temp: [36.7 C (98 F)-37.9 C (100.2 F)] Pulse: [78-104] Respirations: [20 PER MINUTE-32 PER MINUTE] SpO2: [95 %-99 %] O2 Delivery: None (Room Air) Intensity Pain Scale 0-10 (Pain 1): (not recorded) Vitals: 12/22/16 1314 12/23/16 0400 12/24/16 040 Weight: 56.1 kg (123 lb 10.9 oz) 57.1 kg (125 lb 14.1 oz) 55.4 kg (122 lb 2.2 oz ) Artificial airway: None Ventilator/ Respiratory Therapy: No Vent weaning trial: Not applicable Lines: Peripheral Line Drains: Fung Catheter: 0 mL and Nasogastric tube: 00 mL Scheduled Meds: docusate (COLACE) oral solution 100 mg 100 mg Per [place] Tube BID levETIRAcetam (KEPPRA) 500 mg in sodium chloride 0.9% (NS) 100 mL IVPB 500 mg Intravenous BID milk of magnesia (CONC) oral suspension 10 mL 10 mL Per [place] Tube QDAY senna/docusate (SENOKOT-S) solution 10 mL 10 mL Per [place] Tube BID sodium chloride(#) inj for po solution 17 mEq 17 mEq Per NG tube TID Continuous Infusions: sodium chloride 2 % infusion 75 mL/hr at 12/24/16 040 PRN and Respiratory Meds:calcium gluconate IVPB PRN (General Merchandise Salesperson from Rx) AND Ionized Calcium PRN AND Notify Physician Ongoing, fentaNYL citrate PF Q1H PRN, hydrALAZINE Q6H PRN, HYDROcodone/acetaminophen Q4H PRN, labetalol ( NORMODYNE; TRANDATE) injection Q15 MIN PRN, magnesium sulfate PRN AND Magnesium PRN AND Notify Physician Ongoing, ondansetron Q6H PRN, potassium chloride SR PRN OR potassium chloride PRN OR potassium chloride PRN Critical Care Vitals: ICP Monitoring: Hemodynamics/Oxycalcs: BP 147/65 (BP Source: Arm, Right) | Pulse 98 | Temp 37.2 C (98.9 F) | Ht 154.9 cm (61") | Wt 55.4 kg (122 lb 2.2 oz) | SpO2 99% | BMI 23.08 kg/m2 Intake/Output Summary: (Last 24 hours) Intake/Output Summary (Last 24 hours) at 12/24/16 0703 Last data filed at 12/24/16 0600 Gross per 24 hour Intake 1990 ml Output 2040 ml Net -50 ml Stool Occurrence: 1 Physical Exam: Blood pressure 147/65, pulse 98, temperature 37.2 C (98.9 F), height 154.9 cm (61"), weight 55.4 kg (122 lb 2.2 oz), SpO2 99 %. Osbaldo coma score: E: 4 - Opens eyes on own M: 6 - Follows simple motor commands V: 1 - Makes no noise Neuro: Mental Status:global aphasia, right sided neglect, alert. Cranial Nerves: Pupil exam: Size : 4Reactivity: brisk Motor: 3/5 right upper localizes 2/5 right lower W/d to painful stim 3/5 left upper localizes 2/5 left lower W/d to painful stim Lungs:clear to auscultation bilaterally Pulmonary:Respiratory status: Stable Heart:regular rate and rhythm, S1, S2 normal, no murmur, click, rub or gallop Abdomen:soft, non-tender. Bowel sounds normal. No masses, no organomegaly Extremities:extremities normal, atraumatic, no cyanosis or edema Skin:Skin color, texture, turgor normal. No rashes or lesions Lab Review: Pertinent labs reviewed Medications: docusate (COLACE) oral solution 100 mg 100 mg Per [place] Tube BID levETIRAcetam (KEPPRA) 500 mg in sodium chloride 0.9% (NS) 100 mL IVPB 500 mg Intravenous BID milk of magnesia (CONC) oral suspension 10 mL 10 mL Per [place] Tube QDAY senna/docusate (SENOKOT-S) solution 10 mL 10 mL Per [place] Tube BID sodium chloride(#) inj for po solution 17 mEq 17 mEq Per NG tube TID Point of Care Testing: (Last 24 hours): Glucose: (!) 144 (12/24/16 0400) Radiology and Other Diagnostic Procedures Review: all noted I spent 47 minutes managing the care of this patient. Mrs Phillip is critically ill s/p ICH. Cares included: detailed neurologic and systems exam, medication review, laboratory data review and interpretation, electrolyte management, review of available imaging, DVT/PE prophylaxis review, diet review , activity review, and coordination of care with consulted teams. Robbie Ambrose Singh, SURGICAL ELASTIC KNITTER Date: 12/24/[phone] * Brando Izaguirre RN - 12/23/2016 6:49 PM CDT I have reviewed the notes, assessment, and/or procedures performed by Mikie Ravi RN and concur with her documentation unless otherwise noted. * Inocencio Haddad - 12/23/2016 2:26 PM CDT Formatting of this note may be different from the original. 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 CTa of the head was negative, She will require MRI at some point is the hematoma is not already resected in the future. The bleed appears to have been cortical and may have been amyloid associated although underlying tumor cannot be excluded. She has had short-term memory problems since she had back surgery 5 years ago. We will request records for this surgery in [facility] and the subsequent surgery in [facility]. It was not clear if the patient had anoxic injury or hypoperfusion during the surgery but I will request the anesthetic records as well. About 5 months ago she also had a TIA which caused her to loose speech for less than 1 day - after which she had no lasting sequela. She was placed on ASA/plavix after the TIA. She presented yesterday with IPH. Her ICH is large and superficial. There is 10mm midline shift and she may be developing a trapped ventricle on the contralateral side. She has not been able to go to the OR or have percutaneous clot evacuation due to receiving plavix yesterday morning. She is able to open her eyes, she has aphasia and her ability to follow commands is very intermittent. SHe has fast, shallow respiration. She had impaired cough when the corpak was placed yesterday. She is at risk of hydrocephalus, rebleeding and herniation, cerebral edema if the clot is not evacuated. She is at risk of respiratory failure - will not intubate at this time but will have low threshold to do so. Intubation would frustrate our ability to perform neurologic exams. She is at risk also of aspiration and pneumonia due to poor cough. Will evaluate whether the plavix has caused functional impairment. TEG maximum amplitude is in the normal range suggesting that there is not significant impairment in overall function. I will send also a platelet activity level. If this is normal then I would encourage open clot evacuation before she develops edema from clot resorption and before she developes a trapped ventricle and hydrocephalus. She will also eventually need further evaluation for her previous TIA including: Carotid doppler Echo Hypercoag? Telemetry monitoring - ongoing A1c - 5.2 on 12/23 Lipids -spec in lab from arrival She had recent weight loss over the past month but no other signs of cancer She has dysphagia (chicken in particular) and may have esophageal stricture or achalasia - will defer this workup unless it is related to her previous cerebrovascular event in which case it may be pertinent to our evaluation here. Hospital and ICU course: 12/22: admitted to NICU 12/23: Overnight neuro exam without patient following commands, more lethargic, repeat CT head with minimal changes Neuro: ICH, Hx of TIA - ICH score 2 - repeat head CT unchanged left frontal intracranial hemorrhage - 2% at 50 ml/hr goal Na 145-155 checks q 6 hours - OR plan per NS - Keppra 500 mg BID - watch for hydrocephalus - OT/PT - Hold PNEUMATIC DEICER INSPECTOR Plavix (placed on after TIA) Sedation/Pain Management: Hx of Chronic back pain - Per Took 10/325mg Hydrocodone q6 hours PNEUMATIC DEICER INSPECTOR- hold for now, use PRNs if needed - Assess for delirium daily Cardiac: - SBP goal: <140 - PRN Labetolol available Respiratory: - On room air Poor pulmonary toilet: turn, cough, deep breathe, use of IS. Mobilize when able - Guarded respiratory status - ABG this am: 7.48/33/71/25.5 - this is hyperventilation due to her neurologic injury GI: - Feeding: NPO - Consult RD for tubefeed recs. Will start feeds later today if status remains stable - neurosurgery bowel regimen, ensure daily BM Heme: hold PNEUMATIC DEICER INSPECTOR Plavix and ASA - assess for coagulopathy, maintain platelets above 100k, INR <1.5 - Holding anticoagulation ID: - aim for normothermia, Temp <38.3 celsius, normothermia protocol if febrile Renal: -BUN/Creat 11/0.70 - Aim for normovolemia - Fung replaced d/t urinary retention Intake/Output Summary (Last 24 hours) at 12/23/16 1426 Last data filed at 12/23/16 1300 Gross per 24 hour Intake 1051.67 ml Output 1395 ml Net -343.33 ml Endocrine: - Blood glucose goal 100-180mg/dl - A1c 5.2 FEN: - 2% at 50 ml/hr goal Na 145-155 checks q 6 hours - Magnesium goal >2.0, i-Kris goal > 1.0, Potassium goal >4.0 mEq/L - Electrolyte replacement protocol Prophylaxis Review: A)GI: B) Lines: No C) Urinary Catheter: Yes; Fung replaced d/t retention D) Antibiotic Usage: No E) VTE: Mechanical prophylaxis; Sequential compression device F) Isolation: no G)Seizures: keppra I) Restraints: Patient assessed for need for restraints. Disposition/Family: ICU Primary service: NS Consults: RODRIGUE __ SUBJECTIVE Roxy Phillip is a 66 y.o. female. Overnight Events: No new events noted. OBJECTIVE Vital Signs: Last Filed Vital Signs: 24 Hour Range BP: 140/70 (12/23 1299) Temp: 37.6 C (99.7 F) (12/23 1200) Pulse: 102 (12/23 1300) Respirations: 27 PER MINUTE (12/23 1299) SpO2: 95 % (12/23 1299) O2 Delivery: None (Room Air) (12/23 1299) Weight: 57.1 kg (125 lb 14.1 oz) (12/23 0400) BP: (118-148)/(49-74) Temp: [36.7 C (98.1 F)-38 C (100.4 F)] Pulse: [86-132] Respirations: [18 PER MINUTE-32 PER MINUTE] SpO2: [91 %-100 %] O2 Delivery: None (Room Air) Intensity Pain Scale 0-10 (Pain 1): (not recorded) Vitals: 12/22/16 1314 12/23/16 0400 Weight: 56.1 kg (123 lb 10.9 oz) 57.1 kg (125 lb 14.1 oz) Artificial airway: None Ventilator/ Respiratory Therapy: No Vent weaning trial: Not applicable Lines: Peripheral Line Drains: Nasogastric tube Scheduled Meds: docusate (COLACE) oral solution 100 mg 100 mg Per [place] Tube BID levETIRAcetam (KEPPRA) 500 mg in sodium chloride 0.9% (NS) 100 mL IVPB 500 mg Intravenous BID [START ON 12/24/2016] milk of magnesia (CONC) oral suspension 10 mL 10 mL Per [place] Tube QDAY senna/docusate (SENOKOT-S) solution 10 mL 10 mL Per [place] Tube BID Continuous Infusions: sodium chloride 2 % infusion 60 mL/hr at 12/23/16 1305 PRN and Respiratory Meds:calcium gluconate IVPB PRN (General Merchandise Salesperson from Rx) AND Ionized Calcium PRN AND Notify Physician Ongoing, fentaNYL citrate PF Q1H PRN, hydrALAZINE Q6H PRN, HYDROcodone/acetaminophen Q4H PRN, labetalol ( NORMODYNE; TRANDATE) injection Q15 MIN PRN, magnesium sulfate PRN AND Magnesium PRN AND Notify Physician Ongoing, ondansetron Q6H PRN, potassium chloride SR PRN OR potassium chloride PRN OR potassium chloride PRN Critical Care Vitals: ICP Monitoring: Hemodynamics/Oxycalcs: BP 140/70 (BP Source: Arm, Right) | Pulse 102 | Temp 37.6 C (99.7 F) | Ht 154.9 cm (61") | Wt 57.1 kg (125 lb 14.1 oz) | SpO2 95% | BMI 23.79 kg/m2 Intake/Output Summary: (Last 24 hours) Intake/Output Summary (Last 24 hours) at 12/23/16 1426 Last data filed at 12/23/16 1300 Gross per 24 hour Intake 1051.67 ml Output 1395 ml Net -343.33 ml Physical Exam: Blood pressure 140/70, pulse 102, temperature 37.6 C (99.7 F), height 154.9 cm (61"), weight 57.1 kg (125 lb 14.1 oz), SpO2 95 %. Osbaldo coma score: E: 4 - Opens eyes on own M: 6 - Follows simple motor commands V: 1 - Makes no noise Neuro: Mental Status: global aphasia, right sided neglect, alert. Cranial Nerves: Pupil exam: Size: 4 Reactivity: brisk Motor: 3/5 right upper localizes 2/5 right lower W/d to painful stim 3/5 left upper localizes 2/5 left lower W/d to painful stim Lungs: clear to auscultation bilaterally Pulmonary: Respiratory status: Stable Heart: regular rate and rhythm, S1, S2 normal, no murmur, click, rub or gallop Abdomen: soft, non-tender. Bowel sounds normal. No masses, no organomegaly Extremities: extremities normal, atraumatic, no cyanosis or edema Skin: Skin color, texture, turgor normal. No rashes or lesions Lab Review: Pertinent labs reviewed Medications: docusate (COLACE) oral solution 100 mg 100 mg Per [place] Tube BID levETIRAcetam (KEPPRA) 500 mg in sodium chloride 0.9% (NS) 100 mL IVPB 500 mg Intravenous BID [START ON 12/24/2016] milk of magnesia (CONC) oral suspension 10 mL 10 mL Per [place] Tube QDAY senna/docusate (SENOKOT-S) solution 10 mL 10 mL Per [place] Tube BID Point of Care Testing: (Last 24 hours): Glucose: (!) 148 (12/23/16 0430) Radiology and Other Diagnostic Procedures Review: all noted Critical care 70 minutes Inocencio Haddad Date: 12/23/[phone] * Mikie Ravi, RN - 12/23/2016 11:30 AM CDT This RN traveled to CT scan with pt and another RN at 1057. VSS while off the unit. Tolerated scan. Arrived back to the unit at 1122. VVS will continue to monitor. * Gurvinder Galicia - 12/23/2016 10:26 AM CDT SPEECH-LANGUAGE PATHOLOGY CLINICAL SWALLOW ASSESSMENT EVALUATION SUMMARY Summary: Clinical swallow evaluation completed. Severe oropharyngeal dysphagia characterized by weakness and reduced arousal and lethargy due to recent CVA. No PO trials provided on this date due to reduced arousal. Two swallow attempts were appreciated while providing oral care. Pt's spouse present during evaluation. Spouse does not report any h/o difficulty swallowing. RECOMMENDATIONS: Remain NPO at this time w/ continued use of Corpak. Meds via Corpak. Excellent oral care. Ongoing dysphagia assessment and treatment. Oral Stage Summary*: Pt did not open mouth or demonstrate intentional movement of lips or tongue upon presentation of moist oral swab. Oral care provided on this date. Pharyngeal Stage Summary*: No PO trials on this date due to pt's lethargy and reduced arousal. Two attempted swallows were appreciated while C IRON WORKER was providing oral care. Laryngeal elevation appeared reduced in attempted swallows. Plan: Continue Treatment 3-5x/week, Patient Would Benefit from Further Speech Therapy Post Acute Hospitalization. Prognosis: Fair NOMS Dysphagia Ratin-Severe Dysphagia -Not able to swallow anything safely by mouth. All nutrition/hydration received through non-oral means (e.g., nasogastric tube, PEG). Results Reported to Physician: Yes Objective* Relevant Med Background: 66 y.o. female PMH TIA, dementia, osteoporosis, arthritis, chronic back pain, admitted to [facility] with ICH on 12/22/16. This morning her noticed that she was coughing, having difficulty swallowing , worsening confusion, took her to OSH ED. CT head: 1. Redemonstration of a large left frontal intraparenchymal hemorrhage with slight increase in localized left to right midline shift. There is similar mass effect with compression of the ventricles and transalar herniation. 2. No new hemorrhage. Lives With: Spouse Receives Help From: None Needed Psychosocial Status: Lethargic, Unable to Sustain Level of Alertness to Complete Assessment Persons Present: Spouse Subjective* Pain: Patient demonstrates no signs of pain Trach Presence: No Feeding Tube Present During Eval: Corpak Nutrition* Nutrition Prior To Hospitalization: Oral, Regular, Thin Liquids Current Form Of Nutrition: NPO, NG ORAL MECH EXAM Oral Mech WFL*: No Oral Mech Exam Summary*: Pt unable to follow any oral motor commands at this time. Pt did not demonstrate any intentional movement of tongue or lips. Pt's dentition natural and poor/fair quality. Education* Persons Educated: Family Barriers To Learning: Impaired Communication, Cognitive Deficits Interventions: Family Educated, Staff Educated Teaching Methods: Verbal Topics: Dysphagia Patient Response: More Instruction Required Goal Formulation: With Family, Patient Unable to participate in Goal Setting Clinical Swallow Goals* Goal : Pt will participate in ongoing dysphagia assessment and treatment. Therapist:SUZANNE Perez, CF-C IRON WORKER [phone] Date:12/23/2016 * Kyle Christensen - 12/23/2016 8:30 AM CDT PHYSICAL THERAPY ASSESSMENT MOBILITY: Mobility Progressive Mobility Level: Passive sitting Level of Assistance: Assist X2 Assistive Device: None Time Tolerated: 0-10 minutes Activity Limited By: Mental Status Variability SUBJECTIVE: Subjective Significant hospital events: 66 y.o. female PMH TIA, dementia, osteoporosis, arthritis, chronic back pain, admitted to [facility] with ICH on 12/22/16. Mental / Cognitive Status: Unable to Follow Commands Persons Present: OT;Family Comments: PMH of lumbar and cervical surgeries; log roll in bed Ambulation Assist: Independent Mobility at Household Level without Device Patient Owned Equipment: Roller Walker Home Situation: Lives with Family Type of Home: House Entry Stairs: 3-5 Stairs In-Home Stairs: No Stairs Comments: Patient unable to answer questions; information per family report. Patient would sometimes open her eyes in sitting to loud noises. She opened her eyes in response to her name one time. In sitting she would also open her eyes without any stimuli for a few seconds. The patient was unable to follow any commands when asked to move her extremities. STRENGTH: Strength Overall Strength: Patient Spontaneously Moving Extremities (Moves left side extremities ) Strength Comment: Patient was able to wash part of her face with a wash cloth with her left hand BED MOBILITY/TRANSFERS: Bed Mobility/Transfers Bed Mobility: Rolling: Dependent Assist;x2 People Bed Mobility: Sit to Supine: Dependent Assist;x2 People End Of Activity Status: In Bed;Nursing Notified;Instructed Patient to Request Assist with Mobility;Instructed Patient to Use Call Light (Chair mode ) BALANCE: Balance Sitting Balance: Dependent Assist ACTIVITY/EXERCISE: Activity / Exercise Sit Edge Of Bed: 10 minutes Sit Edge Of Bed Assist: Dependent EDUCATION: Education Persons Educated: Patient/Family Patient Barriers To Learning: Decreased Alertness;Impaired Communication Interventions: Family Education Teaching Methods: Verbal Instruction Patient Response: More Instruction Required Topics: Plan/Goals of PT Interventions ASSESSMENT/PROGRESS: Assessment/Progress Impaired Mobility Due To: Decreased Level of Alertness Assessment/Progress: Expect Slow Progress;Should Improve w/ Continued PT GOALS: Goals Goal Formulation: With Patient Pt Will Go Sit to Supine : w/ Moderate Assist Pt Will Logroll: w/ Moderate Assist Pt Will Transfer Sit to Stand: w/ Maximum Assist, w/ Assist of 2 PLAN: Plan Treatment Interventions: Strengthening;Mobility Training Plan Frequency: 5 Days per Week Comments: Progress edge of bed activities as able RECOMMENDATIONS: PT Discharge Recommendations PT Discharge Recommendations: Inpatient Setting Equipment Recommendations: Too early to be determined Therapist: Kyle Christensen, SPT Date: 12/23/2016 Associated attestation - Donna Luque, PT - 12/23/2016 10:16 AM CDT I was present and involved in directing the care of the patient throughout the physical therapy session. G-Codes: Mobility G8978 Current Status: 80-99% Impairment G8979 Goal Status: 20-39% Impairment Based on above evaluation and clinical judgment. * Carrie Pack, OT - 12/23/2016 8:27 AM CDT Formatting of this note may be different from the original. OCCUPATIONAL THERAPY ASSESSMENT NOTE Patient Name: Roxy Phillip Room/Bed: [place] [address] Admitting Diagnosis: large left front hematoma Hemorrhagic stroke (HCC) Past Medical History: Diagnosis Date Arthritis Chronic back pain Dementia Osteoporosis TIA (transient ischemic attack) Mobility Progressive Mobility Level: Sit on edge of bed Level of Assistance: Assist X2 Assistive Device: None Time Tolerated: 0-10 minutes Activity Limited By: Mental Status Variability;Lethargy Subjective Pertinent Dx per Physician: 66 y.o. female PMH TIA, dementia, osteoporosis, arthritis, chronic back pain, admitted to [facility] with Left frontal IPH on . Precautions: Falls Pain / Complaints: Patient demonstrates no signs of pain Objective Psychosocial Status: Lethargic;Unable to Sustain Level of Alertness to Complete Assessment Persons Present: Spouse;PT Home Living Type of Home: House Home Layout: One Level;Stairs to Enter w/ Rails (5) Bathroom Shower / Tub: Tub/Shower Unit Bathroom Toilet: Standard Bathroom Equipment: Grab Bars in Shower Bathroom Accessibility: Not Accessible Prior Function Level Of [place]: Independent with ADLs and functional transfers;Needed assistance with homemaking Lives With: Spouse Receives Help From: None Needed Vision Comment: Patient would open eyes briefly and look around room but did not track to command. Observed L eye turned out laterally. Will continue to assess vision as able. ADL's Grooming Assist: Maximum Assist Grooming Deficits: Wash/Dry Face (Patient held wash cloth to face and moved it a little bit over mouth) Functional Transfer Assist: Total Assist x2 Functional Transfer Deficits: Supine to/from Sit Activity Tolerance Sitting Balance: 0/5 Performs 25% or Less Sitting Activity Comment: Patient did not actively participate in therapy while at EOB. Cognition Overall Cognitive Status: Impaired Comprehension: Receptive Aphasia Expression: Expressive Aphasia Problem Solving: Direction Following Assist Attention: Uable to Sustain level of Alertness for Therapy UE PROM Overall BUE PROM WNL: Yes UE AROM UE AROM Not Assessed: Patient Unable to Follow Commands UE Strength / Tone Strength/Tone Not Assessed: Due to Cognitive Deficits Education Persons Educated: Family Teaching Methods: Verbal Instruction Patient Response: Verbalized Understanding Topics: Role of OT, Goals for Therapy Goal Formulation: With Family;Patient Unable to Participate in Goal Setting Assessment Assessment: Decreased ADL Status;Decreased Safe/Judg during ADL;Decreased Cognition;Decreased Self-Care Trans Prognosis: Ongoing OT Assessment Needed Plan Treatment Interventions: ADL Retraining;Functional Transfer Training;Endurance Training;Cognitive Reorientation;Patient/Family Training;Neuromuscular Reeducation OT Frequency: 5x/week Further Evaluation Goals Pt Will Tolerate Further ADL Evaluation: w/in 3-5 sessions Pt Will Tolerate Further UE Status Evaluation: w/in 3-5 sessions Pt Will Tolerate Further Visual Evaluation: w/in 3-5 sessions ADL Goals Other ADL Goal 1: Patient will tolerate sitting at EOB x10 mins with moderate assist to participate in ADLs. Vision Goals Comment: Patient would open eyes briefly and look around room but did not track to command. Observed L eye turned out laterally. Will continue to assess vision as able. OT Discharge Recommendations OT Discharge Recommendations: Inpatient Setting Equipment Recommendations: Too early to be determined G-Codes: Self-care G8987 Current Status: 100% Impairment G8988 Goal Status: 40-59% Impairment Based on above evaluation and clinical judgment. Therapist: HENRY James/Bharati [id number] Date: 12/23/2016 * Mary Sultana DO - 12/23/2016 7:06 AM CDT Was examining the patient around 1930 on 12/22 and noticed that patient was not opening eyes to command. No other new neurologic changes were notes as compared to prior exams. Spontaneously moving all extremities, less on the right side. Pupils reactive and equal. She withdrawals from noxious stimuli in all 4 extremities, less responsive on the right side. Stat CT head was head obtained that showed minimal increase in left to right shift. 2% saline was started at 30 ml/hr, with increase to 40 ml/hr this AM. Checking Na Q6H. Patient remained afebrile overnight with tachycardia improving. Mary Sultana DO Neurology, PGY-3 Pager [phone] * Robbie Singh, SURGICAL ELASTIC KNITTER - 12/23/2016 6:27 AM CDT Formatting of this note may be different from the original. Neuroscience Critical Care Progress Note Roxy Smith [facility] Admission Date: 12/22/2016 LOS: 1 day 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) 2016 Dementia 12/23/2016 TIA (transient ischemic attack) 12/23/2016 Hospital and ICU course: 12/22: admitted to NICU 12/23: Overnight neuro exam without patient following commands, more lethargic, repeat CT head with minimal changes Neuro: ICH, Hx of TIA - ICH score 2 - OSH Head CT 12/22 large hematoma within left frontal lobe. - 12/23 CT/CTA No evidence of aneurysm or AVM - Repeat CT head at 1100 today - 2% at 50 ml/hr goal Na 145-155 checks q 6 hours - OR plan per NS - Keppra 500 mg BID - OT/PT - Hold PNEUMATIC DEICER INSPECTOR Plavix (placed on after TIA) Sedation/Pain Management: Hx of Chronic back pain - Per Took 10/325mg Hydrocodone q6 hours PNEUMATIC DEICER INSPECTOR- hold for now, use PRNs if needed - Assess for delirium daily Cardiac: - SBP goal: <140 - PRN Labetolol available Respiratory: - On room air Good pulmonary toilet: turn, cough, deep breathe, use of IS. Mobilize when able - Guarded respiratory status - ABG this am: 7.48/33/71/25.5 GI: - Feeding: NPO - Consult RD for tubefeed recs. Will start feeds later today if status remains stable - neurosurgery bowel regimen, ensure daily BM Heme: hold PNEUMATIC DEICER INSPECTOR Plavix and ASA - assess for coagulopathy, maintain platelets above 100k, INR <1.5 - Holding anticoagulation ID: - aim for normothermia, Temp <38.3 celsius, normothermia protocol if febrile Renal: -BUN/Creat 11/0.70 - Aim for normovolemia - Fung replaced d/t urinary retention Intake/Output Summary (Last 24 hours) at 12/23/16 07 Last data filed at 12/23/16 0200 Gross per 24 hour Intake 531.67 ml Output 1380 ml Net -848.33 ml Endocrine: - Blood glucose goal 100-180mg/dl - A1c 5.2 FEN: - 2% at 50 ml/hr goal Na 145-155 checks q 6 hours - Magnesium goal >2.0, i-Kris goal > 1.0, Potassium goal >4.0 mEq/L - Electrolyte replacement protocol Prophylaxis Review: A)GI: B) Lines: No C) Urinary Catheter: Yes; Fung replaced d/t retention D) Antibiotic Usage: No E) VTE: Mechanical prophylaxis; Sequential compression device F) Isolation: no G)Seizures: keppra I) Restraints: Patient assessed for need for restraints. Disposition/Family: ICU Primary service: NS Consults: RODRIGUE __ SUBJECTIVE Roxy Phillip is a 66 y.o. female. Overnight Events: No new events noted. OBJECTIVE Vital Signs: Last Filed Vital Signs: 24 Hour Range BP: 118/49 (12/23 699) Temp: 36.7 C (98.1 F) (12/23 0400) Pulse: 93 (12/23 699) Respirations: 28 PER MINUTE (12/23 699) SpO2: 95 % (12/23 699) O2 Delivery: None (Room Air) (12/23 699) Height: 154.9 cm (61") (12/22 1314) Weight: 57.1 kg (125 lb 14.1 oz) (12/24 399) BP: (118-148)/(49-74) Temp: [36.7 C (98.1 F)-38 C (100.4 F)] Pulse: [93-132] Respirations: [18 PER MINUTE-32 PER MINUTE] SpO2: [91 %-100 %] O2 Delivery: None (Room Air) Intensity Pain Scale 0-10 (Pain 1): (not recorded) Vitals: 12/22/16 1314 12/23/16 040 Weight: 56.1 kg (123 lb 10.9 oz) 57.1 kg (125 lb 14.1 oz) Artificial airway: None Ventilator/ Respiratory Therapy: No Vent weaning trial: Not applicable Lines: Peripheral Line Drains: Nasogastric tube Scheduled Meds: docusate (COLACE) capsule 100 mg 100 mg Oral BID levETIRAcetam (KEPPRA) 500 mg in sodium chloride 0.9% (NS) 100 mL IVPB 500 mg Intravenous BID milk of magnesia (CONC) oral suspension 10 mL 10 mL Oral QDAY senna/docusate (SENOKOT-S) tablet 1 Tab 1 Tab Oral BID Continuous Infusions: sodium chloride 2 % infusion 40 mL/hr at 12/23/16 0500 PRN and Respiratory Meds:calcium gluconate IVPB PRN (General Merchandise Salesperson from Rx) AND Ionized Calcium PRN AND Notify Physician Ongoing, fentaNYL citrate PF Q1H PRN, hydrALAZINE Q6H PRN, HYDROcodone/acetaminophen Q4H PRN, labetalol ( NORMODYNE; TRANDATE) injection Q15 MIN PRN, magnesium sulfate PRN AND Magnesium PRN AND Notify Physician Ongoing, ondansetron Q6H PRN, potassium chloride SR PRN OR potassium chloride PRN OR potassium chloride PRN Critical Care Vitals: ICP Monitoring: Hemodynamics/Oxycalcs: BP 118/49 (BP Source: Arm, Right) | Pulse 93 | Temp 36.7 C (98.1 F) | Ht 154.9 cm (61") | Wt 57.1 kg (125 lb 14.1 oz) | SpO2 95% | BMI 23.79 kg/m2 Intake/Output Summary: (Last 24 hours) Intake/Output Summary (Last 24 hours) at 12/23/16 0712 Last data filed at 12/23/16 0200 Gross per 24 hour Intake 531.67 ml Output 1380 ml Net -848.33 ml Physical Exam: Blood pressure 118/49, pulse 93, temperature 36.7 C (98.1 F), height 154.9 cm (61"), weight 57.1 kg (125 lb 14.1 oz), SpO2 95 %. Osbaldo coma score: E: 4 - Opens eyes on own M: 6 - Follows simple motor commands V: 1 - Makes no noise Neuro: Mental Status: global aphasia, right sided neglect, alert. Cranial Nerves: Pupil exam: Size: 4 Reactivity: brisk Motor: 3/5 right upper localizes 2/5 right lower W/d to painful stim 3/5 left upper localizes 2/5 left lower W/d to painful stim Lungs: clear to auscultation bilaterally Pulmonary: Respiratory status: Stable Heart: regular rate and rhythm, S1, S2 normal, no murmur, click, rub or gallop Abdomen: soft, non-tender. Bowel sounds normal. No masses, no organomegaly Extremities: extremities normal, atraumatic, no cyanosis or edema Skin: Skin color, texture, turgor normal. No rashes or lesions Lab Review: Pertinent labs reviewed Medications: docusate (COLACE) capsule 100 mg 100 mg Oral BID levETIRAcetam (KEPPRA) 500 mg in sodium chloride 0.9% (NS) 100 mL IVPB 500 mg Intravenous BID milk of magnesia (CONC) oral suspension 10 mL 10 mL Oral QDAY senna/docusate (SENOKOT-S) tablet 1 Tab 1 Tab Oral BID Point of Care Testing: (Last 24 hours): Glucose: (!) 148 (12/23/16 0430) Radiology and Other Diagnostic Procedures Review: all noted I spent 49 minutes managing the care of this patient. Mrs Phillip is critically ill with ICH. Cares included: detailed neurologic and systems exam, medication review, laboratory data review and interpretation, electrolyte management, review of available imaging, DVT/PE prophylaxis review, diet review , activity review, and coordination of care with consulted teams Robbie Singh, SURGICAL ELASTIC KNITTER Date: 12/23/[phone] * Mikie Ravi, RN - 12/22/2016 6:36 PM CDT Notified Neuro ICU of temp 38 C. Ice packs placed in axilla and groin. Fan order and blankets off. No tylenol to be given at this time per ICU. Temp recheck at 1900 37.7 C. * Abby Sánchez, RT - 12/22/2016 6:13 PM CDT Formatting of this note may [...] OR no smoking hx * Surgical Hx: General surgery (cough & sigh not affected) * Chest X-Ray: Clear OR not available (Pending.) * PFT/Oxygenation: FEV1, PEFR > 80% predicted OR physically unable to perform OR Pa02 >80 RA OR Sp02 >95% RA Patient Assessment * Respiratory Pattern: Regular pattern and rate OR good chest excursion with deep breathing * Breath Sounds: Clear and able to auscultate bases posteriorly * Cough / Sputum: Strong, effective cough OR nonproductive * Mental Status: Disoriented, follows commands * Activity Level: Ambulatory with assistance Priority Index Total Points: 3 Points * Priority Index: 1 PRIORITY INDEX GUIDELINES* Priority Points 1 0-9 points 2 9-18 points 3 > 18 points + Pulm Dx or Home Rx *Higher points indicate higher acuity. Therapist: Abby Sánchez, RT Date: 12/22/2016 [place] AC=Airway clearance AM=Aerosolized medication BA=Swain aerosol DB&C=Deep breathe & cough FEV1=Forced expiratory volume in first second) IC=Inspiratory capacity LE=Lung expansion MDI=Metered dose inhaler Neb=Nebulizer O2=Oxygen Oxim=Oximetry PEFR=Peak expiratory flow rate TRUCK UNLOADER=Rapid Response Team * Gurvinder Galicia - 12/22/2016 3:54 PM CDT SPEECH-LANGUAGE PATHOLOGY TREATMENT NOTE Pt demonstrated significant lethargy and decreased arousal on this date. Per discussion w/ RN, pt recently received fentanyl. Pt not responding w/ max multi- modal sensory stimulation. No PO trials provided on this date. Due to decreased arousal and lethargy, do not recommend PO intake and anticipate need for alternative source of nutrition at this time. Will f/u w/ swallow evaluation on 12/23. Ms. Phillip is a 66 y.o. female H TIA, dementia, osteoporosis, arthritis, chronic back pain, admitted to [facility] with ICH on 12/22/16. This morning her noticed that she was coughing, having difficulty swallowing, worsening confusion, took her to OSH ED. CT Head: 1. Motion limited examination without significant change in size in the large left frontal parenchymal hemorrhage. 2. Increase in density in the more posterior portion of the hematoma which may represent accumulation of acute blood products into an existing cavity. 3. Continued mass effect and [id number] midline shift, difficult to quantify due to patient motion. Therapist: SUZANNE Perez, CF-C IRON WORKER [phone] Date: 12/22/2016 * Mikie Ravi RN - 12/22/2016 2:30 PM CDT Patient transported to ED CT. Head CT completed. Mikie RN waits with patient in hallway due to stroke activation. Stroke activation prolonged. This RNX2 transported to flash CT for CTA to be completed. 25mcg of Fentanyl given due to pt not holding still for scan. Pt present with intermittent apnea and desaturation. Pt placed on 4L NC of Oxygen. Pt back to ICU at 1538. * Mikie Ravi RN - 12/22/2016 1:00 PM CDT Patient arrived on unit via cart accompanied by EMS. Patient transferred to the bed with assistance. Assessment completed, refer to flowsheet for details. Orders released, reviewed, and implemented as appropriate. Oriented to surroundings, call light within reach. Plan of care reviewed. Will continue to monitor and assess. Neurosurgery notified and NEICU of arrival. Pt presents SR, HR 112, RR 20, O2 sat 96% on RA, BP 120/63. Per report pt last know normal before bed last night. Pt woke up with R side facial droop, dysphagia, R sided weakness, expressive aphasia. NIH 12 at OSH. Patient arrived with a gold ring was placed in green biohazard bag. Patient label was placed on bag and taped to White board in pts room. On assessment NIH is 17. Pt is globally aphasic, mute and localizing pain. in this encounter H&P Notes * Luz Marina Obrien, MSN,SURGICAL ELASTIC KNITTER - 12/29/2016 9:55 AM CDT Formatting of this note may be different from the original. Pre Procedure History and Physical/Sedation Plan Procedure Date: 12/29/2016 Planned Procedure(s): Cerebral angiogram Chief Complaint: " IPH " Previous Anesthetic/Sedation History: Unable to assess Allergies: Penicillins; Tomato; Celebrex [celecoxib]; and Artichoke Medications: Scheduled Meds: docusate (COLACE) oral solution 100 mg 100 mg Per [place] Tube BID doxazosin (CARDURA) tablet 2 mg 2 mg Per NG tube QDAY fentaNYL citrate PF (SUBLIMAZE) injection 50 mcg 50 mcg Intravenous ONCE insulin aspart (NOVOLOG FLEXPEN) injection PEN 0-7 Units 0-7 Units Subcutaneous 5 X Day levETIRAcetam (KEPPRA) oral solution 500 mg 500 mg Per [place] Tube BID midazolam (VERSED) injection 1 mg 1 mg Intravenous ONCE milk of magnesia (CONC) oral suspension 10 mL 10 mL Per [place] Tube QDAY senna/docusate (SENOKOT-S) solution 10 mL 10 mL Per [place] Tube BID sodium chloride(#) inj for po solution 34 mEq 34 mEq Per NG tube TID Continuous Infusions: PRN and Respiratory Meds:acetaminophen Q4H PRN, albuterol 0.5% Q4H PRN, calcium gluconate IVPB PRN (General Merchandise Salesperson from Rx) AND Ionized Calcium PRN AND Notify Physician Ongoing, fentaNYL citrate PF Q1H PRN, hydrALAZINE Q6H PRN, HYDROcodone/acetaminophen Q4H PRN, magnesium sulfate PRN AND Magnesium PRN * *AND Notify Physician Ongoing, ondansetron Q6H PRN, pancrelipase 20,000 Units / sodium bicarbonate 650 mg(#) PRN (General Merchandise Salesperson from Rx), potassium chloride SR PRN OR potassium chloride PRN OR potassium chloride PRN Vital Signs: Last Filed Vital Signs: 24 Hour Range BP: 110/56 (12/29 899) Temp: 36.7 C (98 F) (12/29 0400) Pulse: 96 (12/29 899) Respirations: 29 PER MINUTE (12/29 899) SpO2: 97 % (12/29 899) O2 Delivery: None (Room Air) (12/29 899) SpO2 Pulse: 97 (12/29 899) BP: (100-132)/(47-70) Temp: [36.7 C (98 F)-36.9 C (98.5 F)] Pulse: [83-112] Respirations: [18 PER MINUTE-37 PER MINUTE] SpO2: [94 %-99 %] O2 Delivery: None (Room Air) Sedation/Medication Plan: Fentanyl and Midazolam Personal history of sedation complications: Denies adverse event. Family history of sedation complications: Denies adverse event. Medications for Reversal: Naloxone and Flumazenil Discussion/Reviews: Physician has discussed risks and alternatives of this type of sedation and above planned procedures with via phone NPO Status: Acceptable Airway: airway assessment performed Mallampati III (soft palate, base of uvula visible) Head and Neck: no abnormalities noted Mouth: no abnormalities noted Anesthesia Classification: ASA III (A patient with a severe systemic disease that limits activity, but is not incapacitating) Status: Not Lab/Radiology/Other Diagnostic Tests Labs: Relevant labs reviewed I have examined the patient, and there are no significant changes in their condition, from the previous H&P performed on 12/22/16. Luz Marina Obrien, MSN,SURGICAL ELASTIC KNITTER Pager [phone] * Marcos Herrmann MD - 12/22/2016 10:51 PM CDT Formatting of this note may be different from the original. Neurointensivist Critical Care Progress Note Today's Date: 12/22/2016 Name: Roxy Phillip Admission Date: 12/22/2016 LOS: 0 days ATTESTATION I have seen, personally fully evaluated this patient. Patient exhibits injury of at least one organ system,and there is high probability of imminent or life threatening deterioration in patient's condition , and hence needs continued medical attention including frequent neurological examination, and frequent vital signs. The patient is admitted to the NSICU with: Left frontal IP Hospital and ICU course: 12-22-16: Admit to NSICU, CT, CTA PMH: Significant for: Dementia, TIA The patient is critically ill with and is being managed for: Left frontal IPH hemiplegia dysphagia Dementia Cerebral edema I spent 45 minutes (excluding time spent performing or supervising any procedures) providing and personally directing critical care services including Detailed neurological and systems examination Assessment of intravascular volume status Optimization of systemic perfusion pressures Insertion and interpretation of Invasive hemodynamic monitoring data Review of and interpretation laboratory data Review of and interpretation of available imaging studies Review of medications Review of antibiotic, drain prophylaxis Review of DVT/PE Prophylaxis Review of seizure prophylaxis Management of patient on mechanical ventilation Electrolyte management and management of endocrine abnormalities Coordination of care with consult teams Active problems currently being addressed include There are no active problems to display for this patient. 24 hour I/O balance is as follows: Intake/Output Summary (Last 24 hours) at 12/22/162250 Last data filed at 12/22/162199 Gross per 24 hour Intake 381.67 ml Output 710 ml Net -328.33 ml __ Subjective: Roxy Phillip is a 66 y.o. female. Overnight Events: No new events noted, sign out obtained from awake overnight counselor person ( nurse and NSICU physician). Patient examined: yes Objective: I have reviewed the following medications: Scheduled Meds: docusate (COLACE) capsule 100 mg 100 mg Oral BID levETIRAcetam (KEPPRA) 500 mg in sodium chloride 0.9% (NS) 100 mL IVPB 500 mg Intravenous BID milk of magnesia (CONC) oral suspension 10 mL 10 mL Oral QDAY senna/docusate (SENOKOT-S) tablet 1 Tab 1 Tab Oral BID Continuous Infusions: sodium chloride 0.9 % infusion 1,000 mL (12/22/16 1422) PRN and Respiratory Meds:calcium gluconate IVPB PRN (General Merchandise Salesperson from Rx) AND Ionized Calcium PRN AND Notify Physician Ongoing, fentaNYL citrate PF Q1H PRN, hydrALAZINE Q6H PRN, HYDROcodone/acetaminophen Q4H PRN, labetalol ( NORMODYNE; TRANDATE) injection Q15 MIN PRN, magnesium sulfate PRN AND Magnesium PRN AND Notify Physician Ongoing, ondansetron Q6H PRN, potassium chloride SR PRN OR potassium chloride PRN OR potassium chloride PRN Vital Signs: Last Filed Vital Signs: 24 Hour Range BP: 131/68 (12/22 2199) Temp: 37.1 C (98.8 F) (12/22 2199) Pulse: 111 (12/22 2199) Respirations: 30 PER MINUTE (12/22 2199) SpO2: 97 % (12/22 2199) O2 Delivery: None (Room Air) (12/22 2199) Height: 154.9 cm (61") (12/22 1313) Weight: 56.1 kg (123 lb 10.9 oz) (12/22 1313) BP: (119-148)/(60-74) Temp: [36.8 C (98.2 F)-38 C (100.4 F)] Pulse: [107-132] Respirations: [18 PER MINUTE-31 PER MINUTE] SpO2: [94 %-100 %] O2 Delivery: None (Room Air) Intensity Pain Scale 0-10 (Pain 1): (not recorded) Vitals: 12/22/161313 Weight: 56.1 kg (123 lb 10.9 oz) Critical Care Vitals: ICP Monitoring: PA Catheter: Hemodynamics/Oxycalcs: Assessment and Plan: Neuro: GCS: E4, M5, V1 FOUR score: E4 M3 BR4 R4 Cranial Nerve Deficit: yes Focal motor neurodeficit: yes Need for Sedation: no E/o Delirium: no Need for restraints: no Seizure prophylaxis: yes Steroids: no EVD/Lumbar drain: no Hypertonics: no Plan for management of potential cerebral edema: Avoid Dextrose containing solutions, Maintain Na > 140 mEq/ L, Maintain head of bed elevation at least 30 degrees Keep neck in neutral position to optimize venous drainage Maintain normothermia, avoid hypoxemia, [place] appropriate osmotherapy ( i.e mannitol vs Hypertonic saline) PLAN: 1) Left Frontal IPH - NCCT shows hemorrhage of multiple ages, CTA negative for AVM or aneurysm, etiology may be related to pathophysiology of her dementia, ICH score 2, PT/OT/ST and PMR, prophylactic Keppra 500 mg BID; 2) Cerebral Edema with Midline Shift - recheck Na, goal Na 145-155, start 2% if needed and if so check Na q6 hours Cardiac: Blood pressure 131/68, pulse 111, temperature 37.1 C (98.8 F), height 154.9 cm (61"), weight 56.1 kg (123 lb 10.9 oz), SpO2 97 %. SBP (transduce arterial line at the tragus) CPP goal > 60 ( In presence of ICP monitor) Need for vasopressors: no Need for anti-hypertensive: yes Hemodynamic monitoring/resuscitation : Goals of resuscitation: (in presence of invasive hemodynamic monitors) CPP 65-110 ICP < 20 mmHg SVV < 13% SVI 40-50 CI > 2.4 Lactate < 2 Base deficit < 4 SCVO2 goal > 70% Urine output goal > 0.5 ml/kg/hr PLAN: 1) SBP goal <160 mmHg Respiratory: Respiratory status: Stable Need for mechanical ventilation: no Lung protective strategies in place Chest physiotherapy, Incentive spirometry, bronchotherapy, Avoid Hypoxemia, maintain SPO2 > 95% Monitor for and maintain normocapnia in absence of intracranial hypertension PLAN: O2 via nasal cannula prn Endocrine: Monitor for and maintain normoglycemia: target BG 100-180 mg/dl, with use of SSI or insulin infusion Fluid and electrolyte status: Monitor for and maintain Na >140, K > 4, Magnesium > 2, Phosphorus > 2 Maintain normovolemia Maintenance iv fluids 0.9 Saline or 2% saline PLAN: NS Heme: Maintain INR < 1.5, Platelet count 80-100 k Maintain Hb > 7 gm% in absence of ongoing cerebral ischemia Infectious Disease: Maintain normothermia, need for surveillance cultures, antibiotics reviewed Medications: reviewed Sepsis surveillance Imaging: CXR/Neuroimaging: reviewed Radiology and Other Diagnostic Procedures Reviewed Lab Review: 24-hour labs: Results for orders placed or performed during the hospital encounter of (from the past 24 hour(s)) CBC AND DIFF Collection Time: 12/22/16 1:45 PM Result Value Ref Range White Blood Cells 15.6 (H) 4.5 - 11.0 K/UL RBC 3.89 (L) 4.0 - 5.0 M/UL Hemoglobin 11.8 (L) 12.0 - 15.0 GM/DL Hematocrit 35.1 (L) 36 - 45 % MCV 90.3 80 - 100 FL MCH 30.3 26 - 34 PG MCHC 33.6 32.0 - 36.0 G/DL RDW 15.6 (H) 11 - 15 % Platelet Count 213 150 - 400 K/UL MPV 7.4 7 - 11 FL Neutrophils 89 (H) 41 - 77 % Lymphocytes 6 (L) 24 - 44 % Monocytes 5 4 - 12 % Eosinophils 0 0 - 5 % Basophils 0 0 - 2 % Absolute Neutrophil Count 14.00 (H) 1.8 - 7.0 K/UL Absolute Lymph Count 0.90 (L) 1.0 - 4.8 K/UL Absolute Monocyte Count 0.70 0 - 0.80 K/UL Absolute Eosinophil Count 0.00 0 - 0.45 K/UL Absolute Basophil Count 0.00 0 - 0.20 K/UL PROTIME INR (PT) Collection Time: 12/22/16 1:45 PM Result Value Ref Range INR 1.0 0.8 - 1.2 PTT (APTT) Collection Time: 12/22/16 1:45 PM Result Value Ref Range APTT 23.7 (L) 24.0 - 40.0 SEC BASIC METABOLIC PANEL Collection Time: 12/22/16 1:45 PM Result Value Ref Range Sodium 142 137 - 147 MMOL/L Potassium 4.5 3.5 - 5.1 MMOL/L Chloride 107 98 - 110 MMOL/L CO2 26 21 - 30 MMOL/L Anion Gap 9 3 - 12 Glucose 136 (H) 70 - 100 MG/DL Blood Urea Nitrogen 13 7 - 25 MG/DL Creatinine 0.68 0.4 - 1.00 MG/DL Calcium 8.2 (L) 8.5 - 10.6 MG/DL eGFR Non >60 >60 mL/min eGFR >60 >60 mL/min Point of Care Testing: (Last 24 hours): Glucose: (!) 136 (12/22/16 1345) Drains: reviewed Prophylaxis Review: Lines: No Urinary Catheter: No Antibiotic Usage: No VTE: Pharmacological prophylaxis; Contraindication: Active bleeding; Cerebral hemorrhage and Mechanical prophylaxis; Sequential compression device PT, OT, evaluation and treatment Diet: Enteral nutrition with PO, Or Corpak access if unable to swallow and is at risk for aspiration. Social work and caser shoe parts for discharge planning and placement. Family Meeting and update: yes. Patient is unable to make his or her decisions, family updated during rounds. Goals of therapy: Addressed, Patient is a full code Nurses concerns addressed. Disposition/Family: Continue ICU care due to # 1 X Marcos Herrmann MD Brush Loader And Handle Attacher, Departments of Neurology and Radiology Pager: [phone] Date: 12/22/2016 X * Angela Benavides, SURGICAL ELASTIC KNITTER - 12/22/2016 2:09 PM CDT Formatting of this note may be different from the original. Neurosurgery History and Physical Examination Roxy Phillip Admission Date: 12/22/2016 Assessment/Plan: Roxy Phillip is a 66 y.o. female transfer to with large left frontal parenchymal hemorrhage on AC Plavix and ASA for hx TIA 3 mos ago. -admit NEICU, Q 1 hour neuro checks, SBP < 140 -repeat head CT stable -CTA No cerebral aneurysm or AVM is identified. -Edmundo delong -likely unable to be in [facility] Trial 2/2 dementia hx - hold all AC - [address] 11 am tomorrow - keep INR < 1.4, hgb > 7, and plt > 80 - PT/OT/ST -discussed with Dr. Guadarrama __ Chief Complaint: large left frontal parenchymal hemorrhage History of Present Illness: Roxy Phillip is a 66 y.o. female transfer from [facility] with large left frontal parenchymal hemorrhage found on head CT. Information obtained from chart and from report as no family available. Last seen normal at bedtime last night. Woke up this am and her noticed she had word finding difficulty, right facial droop, difficulty swallowing, and Right sided weakness. He brought her to the ED for evaluation. PMH for dementia on Namenda and for TIA 3 mos ago on ASA and Plavix. Has no history for falls. Past Medical History: Past Medical History: Diagnosis Date Arthritis Chronic back pain Dementia Osteoporosis TIA (transient ischemic attack) Past Surgical History: Past Surgical History: Procedure Laterality Date HX TONSILLECTOMY HYSTERECTOMY ORTHOPEDIC SURGERY Social History: Social History Substance Use Topics Smoking status: Not on file Smokeless tobacco: Not on file Alcohol use Not on file Family History: No family history on file. Allergies: Penicillins Medications: No prescriptions prior to admission. Review of Systems: Full 10 point review of systems negative except for HPI Physical Exam: Vital Signs: Last Filed In 24 Hours Vital Signs: 24 Hour Range Temp: 36.8 C (98.2 F) (12/22 1314) Temp: [36.8 C (98.2 F)] General Appearance: No acute distress Lungs: Clear to auscultation bilaterally Heart: Regular rate and rhythm Abdomen: Soft, non-tender. Bowel sounds normal. no masses, no organomegaly Extremities: No edema, redness or tenderness in the calves or thighs Neurologic Exam: Mental Status: Awake, alert and aphasic Pupils: Pupils equal round and reactive to light Cranial Nerves: CN II-XII individually tested and found to be intact, gag not tested except left gaze pref and mild right mouth weakness Motor: significant right neglect and RUE flacid however will move spont Does not follow commands but moving all extremities spont and purposeful left better than right Normal muscle bulk and tone Sensation: Sensation intact to light touch throughout Deep Tendon Reflexes: Tr Bi Br Pa Ac Left 2 2 2 2 2 Right 2 2 2 2 2 Plantar responses toes downgoing bilaterally No clonus bilaterally Lab Tests: Hematology: Lab Results Component Value Date HGB 11.8 12/22/2016 HCT 35.1 12/22/2016 PLTCT 213 12/22/2016 WBC 15.6 12/22/2016 NEUT 89 12/22/2016 ANC 14.00 12/22/2016 ALC 0.90 12/22/2016 ANNE 5 12/22/2016 AMC 0.70 12/22/2016 ABC 0.00 12/22/2016 MCV 90.3 12/22/2016 MCHC 33.6 12/22/2016 MPV 7.4 12/22/2016 RDW 15.6 12/22/2016 General Chemistry: No results found for: NA, K, CL, CO2, BUN, CR, GLU, OBSCA, CA , MG, PO4, FREEPHENY General Chemistry: No results found for: GAP, KETONES, ALBUMIN, LACTIC, TOTBILI , DBILI, BILIIND, TOTBILCB, TOTPROT, LIPASE, CARRIE, AST, ALT, ALKPHOS, LDH Radiology and other Diagnostics Review: Repeat head CT compared to OSH 12/22 1. Motion limited examination without significant change in size in the large left frontal parenchymal hemorrhage. 2. Increase in density in the more posterior portion of the hematoma which may represent accumulation of acute blood products into an existing cavity. 3. Continued mass effect and [id number] midline shift, difficult to quantify due to patient motion. 12/22 CTA head 1. No cerebral aneurysm or AVM is identified. 2. Stable large anterior left frontal intraparenchymal hematoma with unchanged rightward frontal midline shift and transalar herniation. Angela Benavides, SURGICAL ELASTIC KNITTER [phone] in this encounter Consult Notes * Elen Hernandez MD - 12/30/2016 12:57 PM CDT Formatting of this note may be different from the original. Acute Care Surgery Consult 12/30/2016 Patient: Roxy Phillip Admission Date: 12/22/2016, LOS: 8 days Admission Diagnosis: Intraparenchymal hemorrhage of brain (HCC) [I61.9] Date of Service: December 30, 2016 Reason for Consult: PEG tube placement Referring Provider: Antwan Guadarrama MD Attending Surgeon: Elen Hernandez MD Consult Performed by: Adam Nicholson MD ASSESSMENT: 66 y.o. female with large left frontal intraparenchymal hemorrhage on ASA/Plavix now requiring PEG tube secondary to dysphagia. PLAN: - plan for OR tomorrow vs Thursday for PEG placement - will post and consent today Discussed plan of care with staff surgeon, Dr. Hernandez, who directed plan of care __ HPI: Roxy Phillip is a 66 y.o. female large left frontal intraparenchymal hemorrhage on ASA/Plavix now requiring PEG tube. Corpak currently in place. 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 Past Medical History: Diagnosis Date Arthritis Chronic back pain Dementia Osteoporosis TIA (transient ischemic attack) No current facility-administered medications on file prior to encounter. No current outpatient prescriptions on file prior to encounter. Past Surgical History: Procedure Laterality Date HX TONSILLECTOMY HYSTERECTOMY ORTHOPEDIC SURGERY [place] CRANIECTOMY HMTMA SUPRATENTORIAL INTRACEREBRAL Left 12/24/2016 CRANIOTOMY EVACUATION HEMATOMA supine microscope, brainlab, tube system performed by Antwan Guadarrama MD at [facility] History reviewed. No pertinent family history. Social History Social History Marital status: Spouse name: N/A Number of children: N/A Years of education: N/A Social History Main Topics Smoking status: Never Smoker Smokeless tobacco: Never Used Alcohol use No Drug use: No Sexual activity: Not Asked Other Topics Concern None Social History Narrative ROS: Review of Systems Unable to perform ROS: Mental acuity Vitals: BP: (86-139)/(34-81) Temp: [36.7 C (98 F)-37.7 C (99.8 F)] Pulse: [76-128] Respirations: [16 PER MINUTE-39 PER MINUTE] SpO2: [93 %-100 %] O2 Delivery: None (Room Air) Physical Exam Gen: fatigued, NAD HEENT: NCAT, EOMI, MMM. NGT in place Neck: Supple and symmetric Heart: RRR, Extremities are well perfused Lungs: Bilateral respiratory effort. Breath sounds diminished at base bilaterally. Abdomen: Soft, non-distended Ext: No c/c/e Neuro: Patient moves left upper and lower extremities spontaneously. Lab/Radiology/Other Diagnostic Tests: Lab Results Component Value Date/Time HGB 9.8 (L) 12/30/2016 0337 HCT 28.4 (L) 12/30/2016 033 WBC 9.6 12/30/2016 033 INR 1.0 12/22/2016 1345 PLTCT 218 12/30/2016 033 Lab Results Component Value Date/Time NA 141 12/30/2016336 K 4.0 12/30/2016336 CL 111 (H) 12/30/2016336 CO2 24 12/30/2016336 BUN 27 (H) 12/30/2016336 CR 0.69 12/30/2016336 Adam Nicholson MD Personal Pager: # [phone] ATTESTATION I personally observed the resident performing the E/M, discussed case with resident, and concur with resident documentation of history, physical assessment and treatment plan unless otherwise noted. Staff name: Elen Hernandez MD Date: 01/10/2017 * Carla Graf MD - 12/27/2016 2:19 PM CDT Associated Order(s): CONSULT REHABILITATION MEDICINE PHYSICIAN Formatting of this note may be different from the original. Physical Medicine & Rehabilitation Consult Note Date of Service: 12/27/2016 Roxy Phillip is a 66 y.o. female. : 1950 Primary Insurance: MEDICARE Secondary Insurance: [facility] Tertiary Insurance: Financial Class: Medicare Date of Admission: 12/22/2016 Referring Physician: Antwan Guadarrama MD Reason for Consult: evaluate for Post-Acute Rehab/Placement Precautions: Fall, aspiration Active Problems IPH s/p crani and evacuation Dementia R hemiplegia Global Aphasia Cognitive deficit Impaired ADLs Impaired mobility Assessment & Plan Royx Phillip is a 66 y.o. female admitted to [facility] on 12/22/2016 with the following issues: IPH Impairments: cognitive impairments, communication deficits, dysphagia, hemiplegia, neglect, pain and poor activity tolerance Activity Limitations: eating, grooming, bathing, dressing - lower, toileting, transfers, ambulation, stairs, comprehension, expression and problem solving Participation Restrictions: unable to return home safely Post-acute care rehabilitation needs: If the patient were to discharge within the next few days then would consider LTACH v. SNF. The rehab team will continue to follow and reassess as appropriate. Prior to the inpatient rehabilitation admission complete the following: *Carryover The patient will need to be following commands (consistently 1 step with progression of 2 step commands) during therapies with signs of carryover prior to consideration for acute inpatient rehabilitation. *Endurance The patient will need to be clearly able to or reasonably expected to be able to endure 3 hours of constructive therapy per day. This will need to be determined prior to considering admission to acute inpatient rehabilitation. *IV Pain The patient will need to be transitioned off all IV pain medications and have good pain control with oral analgesics prior to considering acute inpatient rehabilitation. *NG & Corpaks NG Tubes and Corpaks are not typically allowed on acute inpatient rehabilitation. Please address the patient's nutritional access for more permanent source, as the patient will need to either be meeting nutritional requirements orally or have a more definitive long-term enteral access (which may include consideration for PEG tube). *EVD. The patient's EVD would have to be removed prior to consideration for admission to [facility]. 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 Mechanical lift for transfers. 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 Will benefit from ongoing OT to address functional deficits Impaired cognition Aphasia Will benefit from ST to address aphasia and cognitive deficit and aphasia Dysphagia: Pt currently has NGT in place, recommend ST continue to follow for ongoing therapies to ensure advance of swallow function and eventual return to PO status vs. potential need for PEG if no improvement. Acute post-op pain: Patient would benefit from pre-treatment of pain prior to therapies and possibly scheduling Tylenol 650mg-1g TID while awake for improved pain and function. She has oxycodone PO and IV fentanyl PRN. Bowel: Recommend bowel regimen with Senokot 2 tabs QHS and Colace 100-200mg daily while on opiate pain medications +/- Miralax daily prn. Neurogenic Bladder: Agree with fung catheter for now given limited mobility status. Once removed, consider voiding trial approximately q4hrs WHILE AWAKE, perform BVIs (bladder scan) if unable to void or PVRs if able to void, and perform ISC (intermittent straight catheterization) for volumes > 300mL. Would continue until pt has 3 consecutive volumes <100mL to ensure complete emptying and avoidance of urologic complications. Skin/MSK: Given relative immobility and/or risk for contractures and skin breakdown, recommend HOB > 30 degrees to reduce shearing, turning q2 hours while supine in bed, pressure relief [id number] in seated position, PRAFOs for pressure relief and to prevent contractures. Would encourage use of a pillow under hemiplegic arm to prevent shoulder subluxation, PROM as tolerated. Could also consider SSRI for motor recovery post stroke if deemed appropriate by primary team. Dispo: During our exam today, the patient was unable to follow simple commands or even show automatic responses such as squeezing fingers. As above, if the patient were to discharge within the next few days then would consider LTACH v. SNF. She has medical complexity and therapeutic goals to consider AIRF, but the patient would have to demonstrate sufficient carryover and endurance prior to consideration for admission. The rehab team will continue to follow and reassess as appropriate. Thank you for this consultation. Please call our consult pager with questions or concerns. Carla Graf MD Rehab Consult Pager: [phone] History of Present Illness Hospital Course: Roxy Phillip is a 66 y.o. female with PMH of dementia and TIA who presented via transfer from [facility] with large left frontal parenchymal hemorrhage found on head CT on 12/22. She initially presented to OSH with word finding difficulty, right facial droop, difficulty swallowing, and Right sided weakness. She underwent L frontal kirit hole crani, hemorrhage evacuation, and EVD placement on 12/25. Pt is working with PT and OT to address functional and mobility deficits, rehab is now consulted for post-acute rehab/placement recommendations. Past Medical History: Diagnosis Date Arthritis Chronic back pain Dementia Osteoporosis TIA (transient ischemic attack) Past Surgical History: Procedure Laterality Date HX TONSILLECTOMY HYSTERECTOMY ORTHOPEDIC SURGERY [place] CRANIECTOMY HMTMA SUPRATENTORIAL INTRACEREBRAL Left 12/24/2016 CRANIOTOMY EVACUATION HEMATOMA supine microscope, brainlab, tube system performed by Antwan Guadarrama MD at Main OR[facility] Social History Social History Marital status: Spouse name: N/A Number of children: N/A Years of education: N/A Occupational History Not on file. Social History Main Topics Smoking status: Never Smoker Smokeless tobacco: Never Used Alcohol use No Drug use: No Sexual activity: Not on file Other Topics Concern Not on file Social History Narrative History reviewed. No pertinent family history. Scheduled Meds: docusate (COLACE) oral solution 100 mg 100 mg Per Corpak Tube BID levETIRAcetam (KEPPRA) oral solution 500 mg 500 mg Per [place]ak Tube BID milk of magnesia (CONC) oral suspension 10 mL 10 mL Per [place] Tube QDAY potassium chloride oral solution 20 mEq 20 mEq Per NG tube ONCE senna/docusate (SENOKOT-S) solution 10 mL 10 mL Per Corpak Tube BID sodium chloride(#) inj for po solution 34 mEq 34 mEq Per NG tube TID Continuous Infusions: sodium mixed salt 2% infusion (NaCl 1%, Na Acetate 1%) 20 mL/hr at 12/26/16 1741 PRN and Respiratory Meds:acetaminophen Q4H PRN, calcium gluconate IVPB PRN (General Merchandise Salesperson from Rx) AND Ionized Calcium PRN AND Notify Physician Ongoing, fentaNYL citrate PF Q1H PRN, hydrALAZINE Q6H PRN, HYDROcodone/acetaminophen Q4H PRN, magnesium sulfate PRN AND Magnesium PRN AND Notify Physician Ongoing, ondansetron Q6H PRN, pancrelipase 20,000 Units/ sodium bicarbonate 650 mg(#) PRN (General Merchandise Salesperson from Rx), potassium chloride SR PRN OR potassium chloride PRN OR potassium chloride PRN Allergies Allergen Reactions Penicillins UNKNOWN Tomato SEE COMMENTS Throat swelling Celebrex [Celecoxib] HIVES [place]ich[place] VOMITING Prior Level of Function Self-Care/ADLs: Independent Mobility: independent at community level w/o assistive device Home Environment: Home Situation: Lives with Family (12/23/2016 9:00 AM) Patient Owned Equipment: Roller Walker (12/23/2016 9:00 AM) Type of Home: House (12/23/2016 3:00 PM) Entry Stairs: 3-5 Stairs (12/23/2016 9:00 AM) In-Home Stairs: No Stairs (12/23/2016 9:00 AM) Comments: patient was unresponsive to stimuli. She was unable to follow any commands. She would spontaneously kick her left foot or put in into a plantarflexion position. (12/26/2016 3:00 PM) Bathroom Equipment: Grab Bars in Shower (12/23/2016 3:00 PM) Patient lives in [place], [place] with her in a house with 4 steps to enter. 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 Current Level Of Function: PT Gait: Bed Mobility/Transfers Bed Mobility: Rolling: Dependent Assist, x2 People Bed Mobility: Supine to Sit: Dependent Assist, x2 People Bed Mobility: Sit to Supine: Dependent Assist, x2 People Transfer Type: Sit to Stand Transfer: Assistance Level: From, Bed, Maximal Assist, x2 People Transfer: Assistive Device: None Transfers: Type Of Assistance: Verbal Cues, For Strength Deficit, For Safety Considerations Other Transfer Type: Mechanical Lift Other Transfer: Assistance Level: From, Bed, To, Bed Side Chair, Dependent Assist Other Transfer: Assistive Device: Mechanical Lift Other Transfer: Type Of Assistance: For Safety Considerations End Of Activity Status: Up in Chair, Nursing Notified, Instructed Patient to Request Assist with Mobility, Instructed Patient to Use Call Light OT ADL's Where Assessed: Edge of Bed Grooming Assist: Maximum Assist Grooming Deficits: Wash/Dry Hands Functional Transfer Assist: Total Assist (x2) Functional Transfer Deficits: (Supine to/from Sit;rolling side to side;Total body lift to c) Comment: Patient pushing back while seated at EOB and pushing with LLE. Patient unable to assist with sitting balance this date. Patient lifted to chair and positioned in chair for safety. TABS alarm and lapbelt on. 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 Severe oropharyngeal dysphagia characterized by weakness and reduced arousal and lethargy due to recent CVA. No PO trials provided on this date. Two swallow attempts were appreciated while providing oral care. Pt's spouse present during evaluation. Spouse does not report any h/o difficulty swallowing. RECOMMENDATIONS: Remain NPO at this time w / continued use of Corpak. Excellent oral care. Ongoing dysphagia assessment and treatment. Oral Stage Summary*: Pt did not open mouth or demonstrate intentional movement of lips or tongue upon presentation of moist oral swab. Oral care provided on this date. Pharyngeal Stage Summary*: No PO trials on this date due to pt's lethargy and reduced arousal. Two attempted swallows were appreciated while C IRON WORKER was providing oral care. Laryngeal elevation appeared reduced in attempted swallows. Plan: Continue Treatment __x/week (Comment)., Patient Would Benefit from Further Speech Therapy Post Acute Hospitalization. Prognosis: Fair Review of Systems A 14 point review of systems was negative except for: that noted in the HPI Physical Exam BP: 151/69 (12/27 1399) Temp: 37.6 C (99.7 F) (12/27 1200) Pulse: 91 (12/27 1400) Respirations: 26 PER MINUTE (12/27 1399) SpO2: 97 % (12/27 1399) O2 Delivery: None (Room Air) (12/27 1399) SpO2 Pulse: 91 (12/27 1399) Body mass index is 22.87 kg/(m^2). Gen: fatigued, NAD HEENT: NCAT, EOMI, MMM. NGT. Neck: Supple and symmetric Heart: Extremities are well perfused Lungs: respirations even and non-labored Abdomen: Soft, non-distended Psych: flat affect Ext: No c/c/e MS: Patient moves left upper and lower extremities spontaneously. Neuro: Cranial nerves Pupils equal and reactive to light. DTR's no hyperreflexia Babinski Downgoing Bilaterally Nguyễn Negative bilaterally Upper Extremity Tone Normal Lower Extremity Tone Normal Upper Extremity Sensation Intact to light touch bilaterally Lower Extremity Sensation Intact to light touch bilaterally Clonus Negative Bilaterally Mental Status Global aphasia, unable to follow simple commands. Intake/Output Summary (Last 24 hours) at 12/27/16 1420 Last data filed at 12/27/16 1400 Gross per 24 hour Intake 2196 ml Output 2718 ml Net -522 ml Hematology: Lab Results Component Value Date HGB 11.0 12/27/2016 HCT 32.8 12/27/2016 PLTCT 203 12/27/2016 WBC 10.5 12/27/2016 NEUT 79 12/27/2016 ANC 8.20 12/27/2016 ALC 1.60 12/27/2016 ANNE 6 12/27/2016 AMC 0.60 12/27/2016 ABC 0.00 12/27/2016 MCV 91.2 12/27/2016 MCHC 33.6 12/27/2016 MPV 8.1 12/27/2016 RDW 15.6 12/27/2016 , Coagulation: Lab Results Component Value Date PTT 23.7 12/22/2016 INR 1.0 12/22/2016 and General Chemistry: Lab Results Component Value Date NA 148 12/27/2016 K 3.4 12/27/2016 CL 116 12/27/2016 GAP 10 12/27/2016 BUN 19 12/27/2016 CR 0.71 12/27/2016 GLU 184 12/27/2016 CA 8.5 12/27/2016 OBSCA 1.02 12/27/2016 MG 1.9 12/27/2016 Radiology: Reviewed Carla Graf MD Associated attestation - Ronnie Theodore DO - 12/28/2016 8:05 AM CDT Formatting of this note may be different from the original. ATTESTATION I personally performed the de anda portions of the E/M visit, discussed case with resident and concur with resident documentation of history, physical exam, assessment, and treatment plan unless otherwise noted. Staff name: Ronnie Theodore DO Date: 12/28/2016 * Shantal Lopez RD - 12/24/2016 2:38 PM CDT Associated Order(s): CONSULT DIETITIAN CLINICAL NUTRITION Clinical Nutrition Assessment Summary Nutrition Assessment of Patient: Unintentional Weight Loss: > 10% in 6 months (severe) Malnutrition Assessment: Malnutrition present Malnutrition Context: ICD-10 code E43: Chronic illness/Severe malnutrition Estimated Calorie Needs: [id number] (28-30 kcal/kg present wt 55.4kg) Estimated Protein Needs: 65-75 (1.2-1.4g/kg present wt 55.4kg) Oral Diet Order: NPO Comment: 66 y.o. female w/ PMH including dementia, chronic back pain, TIA; transferred to [facility] 12/22 with large left frontal parenchymal hemorrhage on AC Plavix and ASA for hx TIA 3 mos ago. NPO on room air; going to OR for drain placement today. Consult received for EN recs. Per spouse pt has lost >10# over past 6 months (18% per current EMR wt and usual wt of 140# per spouse). 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 Meets criteria for severe malnutrition in chronic illness. Recommendation: When medically able recommend transpyloric feeding tube placement and Isosource 1.5 start @ 20 ml/hr with goal of 45 ml/hr. At goal to provide 1620 kcal, 73 g protein and 820 ml free water. Additional fluids per primary team. Intervention / Plan: assessed nutritional status; obtained subjective info from family provided EN recs monitor EN start, tolerance and provision monitor wt trends, labs, meds, GI status Nutrition Diagnosis: Nutrition Diagnosis: Altered GI function Etiology: swallowing deficits with AMS;stroke Signs & Symptoms: NPO, C IRON WORKER findings, orders for EN consult Goals: Initiate nutrition Time Frame: Within [address] * Abhijeet Chin, SURGICAL ELASTIC KNITTER - 12/22/2016 1:19 PM CDT Associated Order(s): CONSULT NEURO CRITICAL CARE PHYSICIAN Formatting of this note may be different from the original. Neuro Critical Care History and Physical Roxy Phillip Admission Date: 12/22/2016 LOS: 0 days Full Code ASSESSMENT/PLAN There are no active problems to display for this patient. Roxy Phillip is a 66 y.o. female PMH TIA, dementia, osteoporosis, arthritis , chronic back pain, admitted to [facility] with ICH on 12/22/16. Hospital and ICU course: 12/22: admitted to NICU. Neuro: ICH - ICH score 2 - OSH Head CT 12/22large hematoma within left frontal lobe. - CT/CTA head pending - OR plan per NS - Keppra 500 mg BID - OT/PT Sedation/Pain Management: No - Assess for delirium daily Cardiac: - SBP goal: <140 Respiratory: Date of Intubation: Reason: Date of Extubation: - Guarded respiratory status GI: - Feeding: NPO - neurosurgery bowel regimen, ensure daily BM Heme:ON Plavix and ASA at home - assess for coagulopathy, maintain platelets above 100k, INR <1.5 - Holding anticoagulation ID: - aim for normothermia, Temp <38.3 celsius, normothermia protocol if febrile Renal: - Aim for normovolemia - Fung in place Endocrine: - Blood glucose goal 100-180mg/dl - A1c pending FEN: - Magnesium goal >2.0, i-Kris goal > 1.0, Potassium goal >4.0 mEq/L - Electrolyte replacement protocol Prophylaxis Review: A)GI: PPI/[id number] B) Lines: No C) Urinary Catheter: Yes; Retain fung due to: Need for accurate Intake and Output D) Antibiotic Usage: No E) VTE: Mechanical prophylaxis; Sequential compression device F) Isolation: no G)Seizures: keppra I) Restraints: Patient assessed for need for restraints. Disposition/Family: ICU Primary service: NS Consults: NEI SUBJECTIVE Chief Complaint: ICH History of Present Illness: Roxy Phillip is a 66 y.o. female PMH TIA, dementia, osteoporosis, arthritis, chronic back pain, admitted to [facility] with ICH on 12/22/16. This morning her noticed that she was coughing, having difficulty swallowing, worsening confusion, took her to OSH ED. CT head showed large hematoma within left frontal lobe. Past Medical History: Diagnosis Date Arthritis Chronic back pain Dementia Osteoporosis TIA (transient ischemic attack) Past Surgical History: Procedure Laterality Date HX TONSILLECTOMY HYSTERECTOMY ORTHOPEDIC SURGERY Unable to obtain family history due to patient's condition. Social History Social History Narrative Code Status: Full Code Immunizations (includes history and patient reported): There is no immunization history on file for this patient. Allergies: Review of patient's allergies indicates not on file. No prescriptions prior to admission. Review of Systems: Review of systems not obtained from patient due to patient factors. OBJECTIVE Vital Signs: Last Filed Vital Signs: 24 Hour Range Temp: 36.8 C (98.2 F) (12/22 1313) Weight: 56.1 kg (123 lb 10.9 oz) (12/22 1313) Temp: [36.8 C (98.2 F)] Intensity Pain Scale 0-10 (Pain 1): (not recorded) Vitals: 12/22/16 1314 Weight: 56.1 kg (123 lb 10.9 oz) Artificial airway: None Ventilator/ Respiratory Therapy: No Vent weaning trial: Not applicable Lines: Peripheral Line Drains: None Critical Care Vitals: ICP Monitoring: Hemodynamics/Oxycalcs: Intake/Output Summary: (Last 24 hours) No intake or output data in the 24 hours ending 12/22/16 1329 Physical Exam: Temperature 36.8 C (98.2 F), weight 56.1 kg (123 lb 10.9 oz). Osbaldo coma score: E: 4 - Opens eyes on own M: 6 - Follows simple motor commands V: 1 - Makes no noise Neuro: Mental Status: global aphasia, right sided neglect, alert. Moves left side with intact strength. Minimal movement on the right side Cranial Nerves: - Pupil exam: Size: 4 Reactivity: brisk Lungs: clear to auscultation bilaterally Pulmonary: Respiratory status: Stable Heart: regular rate and rhythm, S1, S2 normal, no murmur, click, rub or gallop Abdomen: soft, non-tender. Bowel sounds normal. No masses, no organomegaly Extremities: extremities normal, atraumatic, no cyanosis or edema Skin: Skin color, texture, turgor normal. No rashes or lesions Point of Care Testing: (Last 24 hours): Lab Review: Pertinent labs reviewed Radiology and Other Diagnostic Procedures Review: Pertinent radiologic and diagnostic procedures reviewed. Abhijeet Chin, SURGICAL ELASTIC KNITTER Date: 12/22/[phone] I spent 60 minutes managing the care of this patient. Ms Phillip is critically ill with ICH. Cares included: detailed neurologic and systems exam, medication review, laboratory data review and interpretation, electrolyte management, review of available imaging, DVT/PE prophylaxis review, diet review, activity review, mechanical ventilation and sedation management, and coordination of care with consulted teams in this encounter Miscellaneous Notes * Case Mgmt DC Plan - MarianaCesiaBetsy - 01/06/2017 1:44 PM CDT Case Management Progress Note NAME:Roxy Phillip :1950 AGE: 66 y.o. ADMISSION DATE: 12/22/2016 DAYS ADMITTED: LOS: 15 days Todays Date: 01/06/2017 [facility] at 1530. RN Report# [id number] ABBY reviewed EMR for POC and is following for assistance with DC planning. ABBY discussed pt with neurosurgery team. Team reports stability for DC. Pt's sodium levels improved from yesterday and pt more alert than day prior. ABBY attended Neuro-Rehab huddle where pt was discussed. Per rehab physicians, pt appropriate for IPR level of care. Per [facility] Yanelis, anticipate bed availability for pt today. Interventions ? Support Support: Pt/Family Updates re:POC or DC Plan, Counseling for Adaptation to Illness ABBY met with pt's Frank in room. Pt also present and wearing mitts. ABBY reviewed with Frank that [facility] said that pt would be appropriate for IPR level of care. Additional education provided to Frank regarding IPR level of care , especially in comparison with SNF level of care. Frank reported that he is 90% certain that he and family would have preference for DC plan to [facility] though he wishes to discuss this with his dtr Soledad as well. Frank then stated that he felt as though he might pass out. SW encouraged Frank to sit. Frank reported taking all of his medications but needs something to eat. SW brought Frank the requested food. SW provided education on the importance of self-care. Frank verbalized understanding. Plan for SW follow up in the afternoon to allow Frank time to get ahold of his dtr Soledad to discuss DC plan. ABBY followed up with Frank short time later. He indicated that Soledad had not been available to talk to him right away. Plan for Frank to phone ABBY when he has had a chance to discuss plan with Soledad. Frank reported feeling better since eating food. ABBY again stressed the importance of adequate self-care. Frank indicated that he plans to go to a [employer] game tomorrow with his nephew for some time away from the hospital. ABBY received phone call from Frank who reported that after discuss with Soledad and his son, all family is in agreement with plan for DC to [facility]. ABBY answered all necessary questions. ABBY provided update to Frank and pt (no longer wearing mitts) regarding timing of DC. All questions were answered. Emotional support provided as Frank discussed the difficulty in making decisions without pt input when she was always the one "taking care of" Frank prior to this hospitalization. ? Info or Referral ? Discharge Planning Discharge Planning: Inpatient Rehabilitation ABBY discussed pt with Yanelis at [facility]. ABBY provided update to Yanelis that family has officially decided on DC plan to [facility]. Ilan mattson to chicken picker pt at 1530. RN Report# [id number]. ABBY provided update to primary team and placed transfer packet in pt's drawer on unit. ? Medication Needs ? Financial ? Legal ? Other Disposition ? Discharge Preparation Type of Residence: Private residence Patient expects to be discharged to: Rehab facility Was the patient receiving home care services?: No ? Expected Discharge Expected Discharge Date: 01/06/17 ? Discharge Disposition Disposition: Inpatient Rehab Facility (IRF) Inpatient Rehab: [facility] ([phone]) ? [facility] Betsy Peña [facility] Phone: [phone] * Case Mgmt DC Plan - Mattie Denson, VANESSA - 01/06/2017 12:05 PM CDT Per neuro/rehab huddle this morning, patient is deemed an appropriate IP rehab candidate and the family would like to stay at . Per Dr. Russ, the patient is medically cleared for an admission today. 1146 - Notified Betsy (ABBY) that Rehab able to admit today. Per Betsy, family is now trying to decide if they want to stay at vs discharging to facility closer to home. ABBY to call Rehab admission RN back with final determination on placement. 1343 - Per Betsy (ABBY), patient's family would like to pursue placement at for IRF level of care. Transportation will be scheduled for 1530 via stretcher van with [facility]. Betsy to notify patient's primary RN of discharge time, rehab bed assignment of [phone] and unit phone# for report ([phone]). Please leave in any functioning IV access for transition to 's IP rehab unit. Ryan, Inpatient Admissions Nurse/Rehab. ([phone]). * Care Plan - Angelica Nova, VANESSA - 01/06/2017 1:25 AM CDT Problem: Neurological Status, Impaired/Altered Goal: Progress toward maximizing functional outcomes Outcome: Goal Ongoing Patient is making steps towards maximizing ADLs. Goal: Cognitive status restored to baseline Outcome: Goal Ongoing Patient is not yet restored to baseline. Problem: Mobility/Activity Intolerance Goal: Maximize functional ADLs and mobility outcomes Outcome: Goal Ongoing Patient is making steps towards maximizing ADLs. Problem: Self-Care Deficit Goal: Maximize ADL functioning Outcome: Goal Ongoing Patient is making steps towards maximizing ADLs. Problem: Discharge Planning Goal: Participation in plan of care Outcome: Goal Ongoing Patient is an active participant in plan of care. Goal: Knowledge regarding plan of care Outcome: Goal Ongoing Patient is kept up to date regarding changes to plan of care. Goal: Prepared for discharge Outcome: Goal Ongoing Patient is not yet ready for discharge. Problem: Skin Integrity Goal: Skin integrity intact Outcome: Goal Ongoing Patient skin is intact. Problem: Falls, High Risk of Goal: Absence of falls-Adult Patient Outcome: Goal Ongoing Patient is absent of falls at this time. Problem: Nutrition Deficit Goal: Adequate nutritional intake Outcome: Goal Ongoing Patient is receiving PEG feedings of Isosource 1.5. * Care Plan - Fadia Ignacio RN - 01/05/2017 2:37 PM CDT Problem: Neurological Status, Impaired/Altered Goal: Progress toward maximizing functional outcomes Outcome: Goal Ongoing Patient alert to lethargic. Minimal verbal communication. Able to say/mouth name at times. PERRLA. Moves all extremities, right side weaker than left. Problem: Mobility/Activity Intolerance Goal: Maximize functional ADLs and mobility outcomes Outcome: Goal Ongoing Patient turned q 2 hrs, able to assist with turning in bed. Problem: Discharge Planning Goal: Participation in plan of care Outcome: Goal Ongoing Patient's spouse at bedside, updated on plan of care. Problem: Falls, High Risk of Goal: Absence of falls-Adult Patient Outcome: Goal Ongoing Fall risk bundle in place. Patient educated on fall precautions. Bed/chair alarm activated and side rails raised x4. Call light within reach. Safe environment provided. Problem: Nutrition Deficit Goal: Adequate nutritional intake Outcome: Goal Ongoing Patient tolerating continuous tube feeds via PEG tube. * Case Mgmt DC Plan - Izabella Roque - 01/05/2017 1:56 PM CDT Case Management Progress Note NAME:Roxy Phillip :1950 AGE: 66 y.o. ADMISSION DATE: 12/22/2016 DAYS ADMITTED: LOS: 14 days Todays Date: 01/05/2017 Plan: Pt anticipated dc to inpt setting. Interventions ? Support Support: Pt/Family Updates re:POC or DC Plan, Counseling for Adaptation to Illness ? Info or Referral ? Discharge Planning Discharge Planning: Inpatient Rehabilitation, Retirement Facility ABBY let a message for Yanelis at [facility], ABBY requested phone call back. ABBY returned a call from Nena Randolph, to provide update on pt. Tomasa requested to be kept update on pt if pt decides to dc there. Tomasa's contact number is [phone] Update [phone] ABBY received a page from Yanelis at [facility] letting ABBY know Yanelis had paged rehab consult team for f/u. ABYB received a page from [facility] letting ABBY know pt would be reviewed again tomorrow but it was looking as if pt was more appropriate for SNF at this time. ? Medication Needs ? Financial ? Legal ? Other Disposition ? Discharge Preparation Type of Residence: Private residence Patient expects to be discharged to: Retirement Facility Was the patient receiving home care services?: No ? Expected Discharge Expected Discharge Date: 01/06/17 ? Discharge Disposition Izabella Roque [phone] * Care Plan - Shakeel Brito RN - 01/03/2017 10:48 PM CDT Problem: Mobility/Activity Intolerance Goal: Maximize functional ADLs and mobility outcomes Outcome: Goal Ongoing Pt encouraged to perform ADL's as safely able Problem: Discharge Planning Goal: Knowledge regarding plan of care Outcome: Goal Ongoing Frank eager to follow plan of care Problem: Skin Integrity Goal: Skin integrity intact Outcome: Goal Ongoing Skin integrity intact except for documented wounds Problem: Falls, High Risk of Goal: Absence of falls-Adult Patient Outcome: Goal Ongoing Pt absent of falls during shift Problem: Nutrition Deficit Goal: Adequate nutritional intake Outcome: Goal Ongoing Tube feedings started, see doc flow for details * Anesthesia Post Op Day 1 - Fadia Rajan SRNA - 01/03/2017 9:12 AM CDT Formatting of this note may be different from the original. Anesthesia Follow-Up Evaluation: Post-Procedure Day One Name: Roxy Phillip : 1950 Age: 66 y.o. Sex: female Procedure Date: 01/02/2017 Procedure: Procedure(s): INSERTION GASTROSTOMY TUBE PERCUTANEOUS Physical Assessment Height: 154.9 cm (60.98") Weight: 55.2 kg (121 lb 11.1 oz) Vital Signs (Last Filed in 24 hours) BP: 118/61 (01/04 800) Temp: 36.9 C (98.5 F) (01/04 800) Pulse: 98 (01/04 0800) Respirations: 16 PER MINUTE (01/04 800) SpO2: 97 % (08/19 0800) O2 Delivery: None (Room Air) (01/03 0800) SpO2 Pulse: 98 (01/03 0800) Patient History Allergies Allergies Allergen Reactions Penicillins UNKNOWN Tomato SEE COMMENTS Throat swelling Celebrex [Celecoxib] HIVES Artichoke VOMITING Medications Scheduled Meds: docusate (COLACE) oral solution 100 mg 100 mg PEG Tube BID doxazosin (CARDURA) tablet 2 mg 2 mg PEG Tube QDAY heparin (porcine) PF syringe 5,000 Units 5,000 Units Subcutaneous Q8H insulin aspart (NOVOLOG FLEXPEN) injection PEN 0-7 Units 0-7 Units Subcutaneous 5 X Day levETIRAcetam (KEPPRA) oral solution 500 mg 500 mg PEG Tube BID milk of magnesia (CONC) oral suspension 10 mL 10 mL PEG Tube QDAY senna/docusate (SENOKOT-S) solution 10 mL 10 mL PEG Tube BID Continuous Infusions: lactated ringers infusion Stopped (01/03/17 0600) PRN and Respiratory Meds:acetaminophen Q4H PRN, calcium gluconate IVPB PRN (General Merchandise Salesperson from Rx) AND Ionized Calcium PRN AND Notify Physician Ongoing, hydrALAZINE Q6H PRN, HYDROcodone/acetaminophen Q4H PRN, magnesium sulfate PRN AND Magnesium PRN AND Notify Physician Ongoing, ondansetron Q6H PRN, pancrelipase 20,000 Units/ sodium bicarbonate 650 mg(#) PRN (General Merchandise Salesperson from Rx), potassium chloride SR PRN OR potassium chloride PRN OR potassium chloride PRN Diagnostic Tests Hematology: Lab Results Component Value Date HGB 11.0 01/02/2017 HCT 33.1 01/02/2017 PLTCT 301 01/02/2017 WBC 11.7 01/02/2017 NEUT 75 01/02/2017 ANC 8.80 01/02/2017 ALC 2.00 01/02/2017 ANNE 6 01/02/2017 AMC 0.70 01/02/2017 EOSA 1 01/02/2017 ABC 0.10 01/02/2017 MCV 91.2 01/02/2017 MCH 30.3 01/02/2017 MCHC 33.2 01/02/2017 MPV 9.3 01/02/2017 RDW 15.3 01/02/2017 General Chemistry: Lab Results Component Value Date NA 149 01/02/2017 K 3.9 01/02/2017 CL 114 01/02/2017 CO2 25 01/02/2017 GAP 10 01/02/2017 BUN 33 01/02/2017 CR 0.73 01/02/2017 GLU 153 01/02/2017 CA 9.1 01/02/2017 OBSCA 0.99 01/02/2017 MG 2.7 01/02/2017 PO4 4.5 01/02/2017 Coagulation: Lab Results Component Value Date PTT 23.7 12/22/2016 INR 1.0 12/22/2016 Follow-Up Assessment Patient location during evaluation: ICU Anesthetic Complications: Anesthetic complications: The patient did not experience any anesthestic complications. Pain: Score: 0 (appears comfortable) Management:adequate Level of Consciousness: responsive to verbal stimuli (opened eyes but did not converse. Nurse verified she has been more awake at times but only able to say her name.) Hydration:acceptable Airway Patency: patent Respiratory Status: spontaneous ventilation, nonlabored ventilation and room air Cardiovascular Status:acceptable, stable, blood pressure returned to baseline and hemodynamically stable Regional/Neuroaxial: * Operative Report (DICTATED ONLY) - Jong Hankins MD - 01/02/2017 6:10 PM CDT Formatting of this note may be different from the original. [facility] [address] [place], [place] [address]. [place], [place] [address] PATIENT NAME: ROXY PHILLIP MR#/PT#: [id number] Page 2 OPERATIVE REPORT DATE OF OPERATION: 01/02/2017 SURGEON: Jong Hankins MD GRITTING MACHINE OPERATOR(S): Calvin Lundberg MD PREOPERATIVE DIAGNOSIS: Dysphagia. POSTOPERATIVE DIAGNOSIS: Dysphagia. OPERATIVE PROCEDURE: Percutaneous endoscopic gastrostomy. ANESTHESIA: Monitored anesthesia care. INDICATIONS FOR OPERATIVE PROCEDURE: Ms. Phillip is a 66-year-old female, who had intraparenchymal hemorrhage. Subsequently was unable to swallow appropriately, after discussion with the family and decision makers decision was made to place percutaneous endoscopic gastrostomy tube for nutritional support. DESCRIPTION AND FINDINGS OF OPERATIVE PROCEDURE: After informed consent was obtained, the patient was taken back to the operating room, positioned supine on her bed. Monitored anesthesia care was induced without any complications. Surgical time-out was performed, verifying all correct patient identifiers and surgical site. The endoscopy was performed from above and normal gastric mucosa was visualized with no visible lesions. Appropriate site for PEG placement was identified with one-to-one apposition with red light visualization. Needle and sheath were then inserted through the abdomen into the stomach under direct visualization. The needle was then removed and the guidewire was inserted through the sheath. The guidewire was then grasped with a snare and removed completely by the endoscopist. A 24-Portuguese PEG tube was then secured to the guidewire and the guidewire and the PEG tube were then pulled through the mouth and esophagus and pulled snugly to the abdominal wall. A bolster was then placed on the PEG site. The tube was about 3 cm at the skin and the bag was attached to the PEG tube for dependant drainage. The patient tolerated the procedure well. There were no complications. The patient was then transferred back to postanesthesia care unit in stable condition. Dr. Hankins was present throughout the procedure. ESTIMATED BLOOD LOSS: Minimal. SPECIMENS REMOVED: There were no specimens removed. DRAINS: Include 24-Portuguese percutaneous endoscopic gastrostomy. COMPLICATIONS: None. Jong Hankins MD ATTESTATION I performed this procedure with a resident. Staff name: Jong Hankins MD Date: 01/08/2017 Dictated by: Calvin Lundberg MD / MEDQ /[id number] P cc: - Jong Hankins MD * Procedures (Immed Post or Bedside) - Jong Hankins MD - 01/02/2017 5:53 PM CDT Brief Operative Note Name: Roxy Phillip is a 66 y.o. female : 1950 DATE OF OPERATION: 01/02/2017 Date: 01/02/2017 Preoperative Dx: Dysphagia [R13.10] Post-op Diagnosis * Dysphagia [R13.10] Procedure(s): INSERTION GASTROSTOMY TUBE PERCUTANEOUS Anesthesia Type: Defer to Anesthesia Surgeon(s) and Role: * Jong Hankins MD - Primary * Calvin Lundberg DO - Resident - Assisting Findings: Normal esophagus, stomach and proximal duodenum Estimated Blood Loss: minimal Specimen(s) Removed/Disposition: * No specimens in log * Complications: None Implants: 24 Fr PEG Drains: None Disposition: PACU - stable Jong Hankins MD Pager [phone] * Case Mgmt DC Plan - Betsy Peña - 01/01/2017 4:18 PM CDT Case Management Progress Note NAME:Roxy Phillip :1950 AGE: 66 y.o. ADMISSION DATE: 12/22/2016 DAYS ADMITTED: LOS: 10 days Todays Date: 01/01/2017 Plan: DC planning to inpt setting. ABBY reviewed EMR for POC and is following for assistance with DC planning. ABBY discussed pt with neurosurgery team. SURGICAL ELASTIC KNITTER notes marked improvement in pt's alertness. Peg was not able to be placed yesterday. Plan for peg placement Thursday. Videoswallow scheduled for Thursday. Disucssion of most appropriate level of care with SURGICAL ELASTIC KNITTER. SURGICAL ELASTIC KNITTER in agreement with plan for rehab team follow up on Thursday. Interventions ? Support Support: Pt/Family Updates re:POC or DC Plan, Counseling for Adaptation to Illness ABBY met with pt's Frank in room. Frank indicated that he would like for pt to have more aggressive therapies than [facility] offers. ABBY reviewed new plan for rehab team to follow up with most appropriate level of care recommendations on Thursday. Frank in agreement and voiced that he would want to got to IPR at [facility] in [place], [place]. ABBY provided education that this is actually a SNF. Frank indicated that he thought it was a higher level of care than [facility] due to having Rehab in the name. ABBY provided extensive education on Frank on difference between SNF and IPR including written information. Frank still demonstrating some lack of understanding but did demonstrate significant improvement in the differences between the levels of care with written information. He indicated that he may be hopeful for DC plan to Rehab as he has been very pleased with the care pt has received while at [facility]. He denied further needs at this time. ? Info or Referral ? Discharge Planning Discharge Planning: Inpatient Rehabilitation, Retirement Facility ABBY followed up on referral at [facility]. Hand Coremaker confirmed receipt of the referral but noted that admissions staff were out of the office but would call ABBY back. ABBY discussed possible rehab team follow up on Thursday with Yanelis at Rehab. In agreement. ? Medication Needs ? Financial ? Legal ? Other Disposition ? Discharge Preparation Type of Residence: Private residence Patient expects to be discharged to: Retirement Facility Was the patient receiving home care services?: No ? Expected Discharge Expected Discharge Date: 01/06/17 ? Discharge Disposition ? Next Level Care Betsy Peña LMSW Phone: [phone] * Case Mgmt DC Plan - Alison Acosta - 12/31/2016 4:11 PM CDT Request to Send Referral Received request from Betsy Peña [facility] to send referral to the following facility: [facility] [address] [place] [id number] Alison Acosta [place] [employer] For additional assistance please contact [facility] *[phone] * Case Mgmt DC Plan - Betsy Peña - 12/31/2016 3:59 PM CDT Case Management Progress Note NAME:Roxy Phillip :1950 AGE: 66 y.o. ADMISSION DATE: 12/22/2016 DAYS ADMITTED: LOS: 9 days Todays Date: 12/31/2016 Plan: Referral pending at [facility] SNF. ABBY reviewed EMR for POC and is following for assistance with DC planning. ABBY discussed pt with neurosurgery team. Team reports plan for peg tube placement today. Anticipate stability for DC at the end of the week. Interventions ? Support Support: Pt/Family Updates re:POC or DC Plan, Counseling for Adaptation to Illness ABBY met with pt's Frank in [facility] as pt working with C IRON WORKER. Frank reported that their dtr Soledad has been looking into SNFs for pt and has identified one of interest located in [place], [place]. Frank was unable to remember the name of the facility. Frank inquired into whether Rehab was an option for pt. ABBY educated that presently, the recommendation remains for SNF level of care. Frank verbalized understanding. Frank inquired into transportation to [place] should this be the place that pt ends up DCing to. ABBY reviewed that ABBY would like to discuss this with PT and other parties to ensure that most appropriate plan is arranged. Plan for continued discussion on transportation for pt tomorrow. Frank in agreement. Frank agreeable to plan of ABBY calling Soledad to find out name of facility (suspect it is [facility] from google search) and send referral accordingly. ABBY phoned Soledad who confirmed that name of facility she is most interested in presently is [facility]. She is also agreeable to referral being sent there. She noted that she is trying to find the best care for pt but is unfamiliar with the facilities in [place]. ABBY provided education on Medicare Retirement Compare tool which Soledad indicated she would review this evening. She reported she is agreeable to ABBY follow up tomorrow to see if there are any additional referrals she would like sent. Plan also for ABBY to provide Medicare Retirement compare list to Frank as well as the ratings for [facility] ( not on the initial list as it is over 50 miles from [place], [place]). ABBY presented to pt's room and reviewed with Frank the discussion with Soledad. ABBY provided the senior living compare list for [place] and information specific to [facility]. Frank was very appreciative. ? Info or Referral ? Discharge Planning Discharge Planning: Retirement Facility ABBY discussed pt with Yanelis at Rehab. ABBY discussed pt with PT. Even with pt's progress with therapies, PT still believes SNF is most appropriate for pt. ABBY tasked WATER RESTORATION TECHNICIAN to send referral to [facility] SNF. ? Medication Needs ? Financial ? Legal ? Other Disposition ? Discharge Preparation Type of Residence: Private residence Patient expects to be discharged to: Retirement Facility Was the patient receiving home care services?: No ? Expected Discharge Expected Discharge Date: 01/02/17 ? Discharge Disposition ? Next Level Care Betsy Peña LMSW Phone: [phone] * Case Mgmt DC Plan - Betsy Peña - 12/30/2016 2:16 PM CDT Case Management Progress Note NAME:Roxy Phillip :1950 AGE: 66 y.o. ADMISSION DATE: 12/22/2016 DAYS ADMITTED: LOS: 8 days Todays Date: 12/30/2016 Plan: DC planning to inpt setting ABBY reviewed EMR for POC and is following for assistance with DC planning. ABBY discussed pt with neurosurgery team. Interventions ? Support Support: Counseling for Adaptation to Illness ABBY presented to pt's room multiple times through out day. No family present. SW left for Frank inviting return call. ? Info or Referral ? Discharge Planning ABBY discussed pt at neuro-rehab huddle. ? Medication Needs ? Financial ? Legal ? Other Disposition ? Discharge Preparation Type of Residence: Private residence Patient expects to be discharged to: Retirement Facility Was the patient receiving home care services?: No ? Expected Discharge Expected Discharge Date: 01/02/17 ? Discharge Disposition ? Next Level Care Betsy Peña LMSW Phone: [phone] * Critical Results - Delaney Lechuga RN - 12/27/2016 3:15 PM CDT Critical result or procedure called (document test and value, and read back): Blood culture drawn 12/26/16 from Left Forearm grew gram + cocci resembling staph Time MD/QLIKVIEW DEVELOPER Notified: [id number] MD/QLIKVIEW DEVELOPER Name: Terry Chin MD/QLIKVIEW DEVELOPER Response/Orders Given: No new orders at this time * Case Mgmt DC Plan - Betsy Peña - 12/26/2016 1:55 PM CDT Case Management Progress Note NAME:Roxy Phillip :1950 AGE: 66 y.o. ADMISSION DATE: 12/22/2016 DAYS ADMITTED: LOS: 4 days Todays Date: 12/26/2016 Plan: Anticipate need for inpt setting. ABBY reviewed EMR for POC and is following for assistance with DC planning. ABBY discussed pt with neurosurgery team. Pt with EVD and corpak Interventions ? Support Support: Counseling for Adaptation to Illness ABBY met with pt's Frank in room. Pt slept through visit. Also present was Frank's brother. Frank reported that he is doing well and had just come from [facility] to obtain more necessities for while he is staying at [facility] with pt. Frank reported that his nieces are flying in this weekend and his dtr is coming up from [facility] this afternoon for the remainder of the weekend. Frank endorsed feeling well supported during this time. Denied needs prior to the weekend. ? Info or Referral ? Discharge Planning ? Medication Needs ? Financial ? Legal ? Other Disposition ? Discharge Preparation Type of Residence: Private residence Patient expects to be discharged to: Retirement Facility Was the patient receiving home care services?: No ? Expected Discharge Expected Discharge Date: 12/30/16 ? Discharge Disposition ? Next Level Care Betsy Peña LMSW Phone: [phone] * Anesthesia Post Op Day 1 - Yanely Lindsey SRNA - 12/25/2016 10:36 AM CDT Formatting of this note may be different from the original. Anesthesia Follow-Up Evaluation: Post-Procedure Day One Name: Roxy Phillip : 1950 Age: 66 y.o. Sex: female Procedure Date: 12/24/2016 Procedure: Procedure(s): CRANIOTOMY EVACUATION HEMATOMA supine microscope, brainlab, tube system Physical Assessment Height: 154.9 cm (61") Weight: 56.4 kg (124 lb 5.4 oz) Vital Signs (Last Filed in 24 hours) BP: 103/45 (12/25 1000) Temp: 36.9 C (98.5 F) (12/25 0800) Pulse: 68 (12/25 1000) Respirations: 25 PER MINUTE (12/25 1000) SpO2: 98 % (12/25 1000) O2 Delivery: Nasal Cannula (12/25 1000) SpO2 Pulse: 68 (12/25 1000) Patient History Allergies Allergies Allergen Reactions Penicillins UNKNOWN Tomato SEE COMMENTS Throat swelling Celebrex [Celecoxib] HIVES Artichoke VOMITING Medications Scheduled Meds: docusate (COLACE) oral solution 100 mg 100 mg Per [place] Tube BID levETIRAcetam (KEPPRA) oral solution 500 mg 500 mg Per [place] Tube BID milk of magnesia (CONC) oral suspension 10 mL 10 mL Per [place] Tube QDAY senna/docusate (SENOKOT-S) solution 10 mL 10 mL Per [place] Tube BID sodium chloride(#) inj for po solution 34 mEq 34 mEq Per NG tube TID Continuous Infusions: sodium mixed salt 2% infusion (NaCl 1%, Na Acetate 1%) 60 mL/hr at 12/25/16 0541 PRN and Respiratory Meds:calcium gluconate IVPB PRN (General Merchandise Salesperson from Rx) AND Ionized Calcium PRN AND Notify Physician Ongoing, fentaNYL citrate PF Q1H PRN, hydrALAZINE Q6H PRN, HYDROcodone/acetaminophen Q4H PRN, labetalol ( NORMODYNE; TRANDATE) injection Q15 MIN PRN, magnesium sulfate PRN AND Magnesium PRN AND Notify Physician Ongoing, ondansetron Q6H PRN, potassium chloride SR PRN OR potassium chloride PRN OR potassium chloride PRN Diagnostic Tests Hematology: Lab Results Component Value Date HGB 9.3 12/25/2016 HCT 27.5 12/25/2016 PLTCT 167 12/25/2016 WBC 11.8 12/25/2016 NEUT 83 12/25/2016 ANC 9.70 12/25/2016 ALC 1.30 12/25/2016 ANNE 6 12/25/2016 AMC 0.70 12/25/2016 EOSA 0 12/25/2016 ABC 0.00 12/25/2016 MCV 89.9 12/25/2016 MCH 30.4 12/25/2016 MCHC 33.8 12/25/2016 MPV 7.7 12/25/2016 RDW 15.5 12/25/2016 General Chemistry: Lab Results Component Value Date NA 146 12/25/2016 K 3.3 12/25/2016 CL 112 12/25/2016 CO2 27 12/25/2016 GAP 7 12/25/2016 BUN 14 12/25/2016 CR 0.64 12/25/2016 GLU 126 12/25/2016 CA 8.2 12/25/2016 OBSCA 1.09 12/25/2016 MG 2.2 12/25/2016 PO4 2.4 12/25/2016 Coagulation: Lab Results Component Value Date PTT 23.7 12/22/2016 INR 1.0 12/22/2016 Follow-Up Assessment Patient location during evaluation: ICU Anesthetic Complications: Anesthetic complications: The patient did not experience any anesthestic complications. Pain: Score: 3 Management:satisfactory to patient Level of Consciousness: sleepy but conscious and lethargic Hydration:acceptable (Corpak L nare, IVF) Airway Patency: patent Respiratory Status: acceptable, nasal cannula and spontaneous ventilation (1 L NC) Cardiovascular Status:acceptable (A line, no gtts, BP stable) Regional/Neuroaxial: * Operative Report (Direct Entry) - Antwan Guadarrama MD - 12/25/2016 8:31 AM CDT Formatting of this note may be different from the original. NEUROSURGERY OPERATIVE REPORT [facility] [address] [place], [place] [address] PATIENT NAME: Roxy Phillip MR#/PT#: [id number] DATE OF OPERATION: 12/25/16 SURGEON: Antwan Guadarrama MD CO-SURGEON: None GRITTING MACHINE OPERATOR(S): Suman Franco MD PREOPERATIVE DIAGNOSIS: 1. Intraparenchymal hemorrhage of brain (HCC) [I61.9] POSTOPERATIVE DIAGNOSIS: Same. OPERATIVE PROCEDURE: 1. Left frontal burrhole craniotomy for evacuation of ICH 2. Use of neuronavigation for stereotactic implantation of EVD ANESTHESIA: General INDICATIONS FOR OPERATIVE PROCEDURE: Please see full dictated H and P. Briefly, Roxy Phillip is a 66 y.o. female transfer from [facility] with large left frontal parenchymal hemorrhage found on head CT. Information obtained from chart and from report as no family available. Last seen normal at bedtime last night. Woke up this am and her noticed she had word finding difficulty, right facial droop, difficulty swallowing, and Right sided weakness. He brought her to the ED for evaluation. PMH for dementia on Namenda and for TIA 3 mos ago on ASA and Plavix. Has no history for falls. During hospitalization while awaiting normalization of coagulopathy from holding the antiplatelet therapy the patient had decline of mental status and became less awake over time. Decision was made for a minimally invasive craniotomy with drainage of the ICH and placement of the drain into the space for HILARIO catheter. DESCRIPTION AND FINDINGS OF OPERATIVE PROCEDURE: Findings: Consistent with preoperative diagnosis.Successful evacuation of ICH via brain needle and catheter. Description: After obtaining informed consent, the patient was wheeled to the operating room theater where general tracheal anesthesia was induced. The patient's placed supine on operating table with all pressure points appropriately padded. Patient's head was placed in the [place] cranial tongs secured the bed with the bed attachment. The head was turned towards the right side in the apparatus for exposure of the left frontal region at the highest point of the exposure. BrainLab reference star was attached to the [place] in the patient's preoperative CT was utilized for neural navigation. After accuracy was verified entry point in the left frontal region was determined on the skin for best trajectory through the middle of the ICH. This point was marked with a skin marker and a small incision was then marked on the forehead. Prep was then done with chlorhexidine alcohol and DuraPrep followed by blue towels Ioban and universal drape. 1% lidocaine with epinephrine was injected inside of planned incision. Using a #10 blade scalpel incision was scored and monopolar cautery was used for hemostasis and further dissection down to the bone. Self-retaining retraction was applied and a matchstick drill bit was used to fashion a small bur hole in this region. Bipolar cautery was used to coagulate the dura and bone wax used for the bony edge. #11 blade scalpel was used to open the dura and bipolar cautery used to coagulate the dura. Using the BrainLab catheter stylette a brain needle was passed into the clot and stylette removed. A large amount of liquefied hematoma was evacuated and the EVD was then passed into the space after the brain needle was removed. This was tunneled percutaneously and attention was turned towards closing. A KLS Gabriele plate was applied and copious bacitracin irrigation utilized. 3-0 Vicryl sutures were used in inverted interrupted fashion for closure of the galea layer followed by 4-0 Monocryl subcuticular running stitch. Dermabond was applied over skin and the drain was secured into place using a 2-0 silk stitch. Patient was removed from the [place] cranial tongs and taken to the ICU in stable condition. All needle and sponge counts were correct. Patient was accompanied to the next level of care. A verbal hanoff of the elements of the post-procedure note including orders and instructions was completed. ESTIMATED BLOOD LOSS: 100 cc SPECIMENS REMOVED: None DRAINS: EVD catheter to clot space IMPLANTS: KLS Gabriele cranial plating hardware COMPLICATIONS: None ATTESTATION I performed this procedure with a resident. [facility] Staff name: Antwan Guadarrama MD Date: 01/08/2017 Attending: Antwan Guadarrama MD Dictated by: Suman Franco MD * Care Plan - Caitlin Viera RN - 12/24/2016 4:28 PM CDT Problem: Skin Integrity Goal: Skin integrity intact Outcome: Goal Ongoing Pt is turned Q2 hr * Case Mgmt DC Plan - Betsy Peña - 12/24/2016 2:25 PM CDT Case Management Progress Note NAME:Roxy Phillip :1950 AGE: 66 y.o. ADMISSION DATE: 12/22/2016 DAYS ADMITTED: LOS: 2 days Todays Date: 12/24/2016 Plan: OR today Interventions ? Support Support: Counseling for Adaptation to Illness SW notified by RN that Frank had forgotten to bring his medications to [facility] and had not taken any for a couple of days. He began feeling poorly this morning. Per RN report, Frank's medications are being phoned to Pharmacy so he can start taking them again. SW met with Frank in hallway while pt was receiving cares from staff in preparation for surgery this afternoon. SW offered emotional support to Frank. Frank shared with SW that he had forgotten his medications. SW reviewed need for self-care while at [facility]. SW inquired into Frank's ongoing support system. Frank reported that his dtr is still at [facility] which he finds very helpful. He also reported that there are extended family members that will be flying into in the coming days to offer support for duration of hospital course. Frank denied present needs and confirmed that he still has card for any need for support. ? Info or Referral ? Discharge Planning ? Medication Needs ? Financial ? Legal ? Other Disposition ? Discharge Preparation ? Expected Discharge Expected Discharge Date: 12/30/16 ? Discharge Disposition ? Next Level Care Betsy Peña LMSW Phone: [phone] * Case Mgmt DC Plan - Betys Peña - 12/23/2016 1:55 PM CDT Formatting of this note may be different from the original. Case Management Admission Assessment NAME:Roxy Phillip :[birth year] AGE: 66 y.o. ADMISSION DATE: 12/22/2016 DAYS ADMITTED: LOS: 1 day Todays Date: 12/23/2016 Source of Information: Pt's with some supportive information from dtr and CHRISTIN in room. Plan: Early anticipated need for inpt setting Plan: CM Assessment SW reviewed EMR for POC and is following for assistance with DC planning. Pt admitted to neurosurgery service with nontraumatic cortical hemorrhage of left cerebral hemisphere. NIH 17. SW discussed pt with neurosurgery team. Provided Stroke & Brain Injury Resource List for community resources including self-care, support groups, local and national organizations, rehabilitation options, respite care, and financial assistance. Reviewed resource list and provided opportunity for questions. In addition, SW provided contact information and explanation of SW/RNCM roles. Family encouraged to contact case management with questions and concerns during hospitalization and until patient is able to transition back to the patient's primary care physician. Emergency Contact Extended Emergency Contact Information Primary Emergency Contact: [place] [address] [facility] Relation: Spouse Secondary Emergency Contact: [facility] Relation: Daughter DPOA None. Transportation Does the patient need discharge transport arranged?: No Transportation Name, Phone and Availability #1: [facility] ([phone]) Does the patient use Medicaid Transportation?: No Expected Discharge Expected Discharge Date: 12/30/16 Living Situation Prior to Admission ? Living Arrangements Type of Residence: Home, dependent on others (some supervision required.) Living Arrangements: Spouse/significant other Bathroom Accessibility: Not Accessible How many levels in the residence?: 1 (4 entry steps into one level home.) Can patient live on one level if needed?: Yes Support Systems: Spouse/Partner, Other family (Pt's is retired and available for consistent support and supervision. Pt's dtr in an RN and resides 45 minutes away. Pt's STELLA and CHRISTIN reside in the same town and have offered to provide intermittent assistance.) Assistance Needed: Yes (Required supervision for IADLs.) Who provides assistance or could if needed?: Are they in good health?: Yes Can support system provide 24/7 care if needed?: Yes Home Care Services: No ? Level of Function Prior level of function: Independent (Independent with ADLs and compensated for memory deficits by writting things down. Some supervision provided for IADLs.) ? Cognitive Abilities Cognitive Abilities: Unable to Assess Financial Resources ? Coverage Primary Insurance: Medicare Secondary Insurance: Commercial insurance (BCBS) Additional Coverage: RX (Fills medications at [facility] in [place]. Reports medications are affordable.) SW scanned BCBS card and tubed to admitting. ? Source of Income Source Of Income: Other custodial income ? Financial Assistance Needed? No Current/Previous Services ? PCP Cosme Soliz ? DME DME at home: Single Point Cane, Walker ? Home Health Receiving home health: No ? HD or PD Undergoing hemodialysis or peritoneal dialysis: No ? Tube/Enteral Feeds Receive tube/enteral feeds: No ? Infusion Receive infusions: No ? Private Duty Private duty help used: No ? HCBS Home and community based services: No ? Demetri White Demetri White: No ? Hospice Hospice: No ? Outpatient Therapy PT: No OT: No C IRON WORKER: No ? SNF/NH SNF: No NH: No ? IPR IPR: No ? LTACH LTACH: No ? Acute Hospital Stay Acute Hospital Stay: In the past Was patient's stay within the last 30 days?: No Psychosocial Needs ? Mental Health Mental Health History: Yes (Pt takes Cymbalta for depression as prescribed by PCP. Pt does not have a history of seeing psychiatrist or therapist.) ? 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 * ECG UNCONFIRMED-SCAN (01/14/2017 12:21 PM) Narrative Ordered by an unspecified provider. * TELEMETRY STRIPS-SCAN (01/09/2017 4:23 PM) Narrative Ordered by an unspecified provider. * ECG UNCONFIRMED-SCAN (01/09/2017 6:19 AM) Narrative Ordered by an unspecified provider. * ECG UNCONFIRMED-SCAN (01/09/2017 6:19 AM) Narrative Ordered by an unspecified provider. * POC GLUCOSE (01/06/2017 12:17 PM) Component Value Ref Range Glucose, POC 163 (H) 70 - 100 MG/DL Specimen Performing Laboratory MAIN LAB [address] [place] [address] 59883 * POC GLUCOSE (01/06/2017 7:35 AM) Component Value Ref Range Glucose, POC 226 (H) 70 - 100 MG/DL Specimen Performing Laboratory MAIN LAB [address] [place] [address] 84207 * CBC AND DIFF (01/06/2017 5:54 AM) Component Value Ref Range White Blood [...] K/UL Specimen Performing Laboratory Blood MAIN LAB [address] [place] [address] 46436 * BASIC METABOLIC PANEL (01/06/2017 5:54 AM) Component Value Ref Range Sodium 149 (H) 137 - 147 MMOL/L Potassium 3.8 3.5 - 5.1 MMOL/L Chloride 113 (H) 98 - 110 MMOL/L CO2 31 (H) 21 - 30 MMOL/L Anion Gap 5 3 - 12 Glucose 218 (H) 70 - 100 MG/DL Blood Urea Nitrogen 33 (H) 7 - 25 MG/DL Creatinine 0.72 0.4 - 1.00 MG/DL Calcium 9.0 8.5 [...] questions. Specimen Performing Laboratory Blood MAIN LAB [address] [place], [place] [id number] * PHOSPHORUS (01/06/2017 5:54 AM) Component Value Ref Range Phosphorus 3.6 2.0 - 4.0 MG/DL Specimen Performing Laboratory Blood MAIN LAB [address] [place] [address] 74223 * MAGNESIUM (01/06/2017 5:54 AM) Component Value Ref Range Magnesium 2.4 1.6 - 2.6 mg/dL Specimen Performing Laboratory Blood MAIN LAB [address] [place] [address] 82775 * IONIZED CALCIUM (01/06/2017 5:54 AM) Component Value Ref Range Ionized Calcium 1.20 1.0 - 1.3 MMOL/L Specimen Performing Laboratory Blood MAIN LAB [address] [place] [address] 06274 * POC GLUCOSE (01/06/2017 2:46 AM) Component Value Ref Range Glucose, POC 194 (H) 70 - 100 MG/DL Specimen Performing Laboratory MAIN LAB [address] [place] [address] 08074 * POC GLUCOSE (01/05/2017 8:30 PM) Component Value Ref Range Glucose, POC 209 (H) 70 - 100 MG/DL Specimen Performing Laboratory MAIN LAB [address] [place] [address] 34133 * POC GLUCOSE (01/05/2017 6:08 PM) Component Value Ref Range Glucose, POC 176 (H) 70 - 100 MG/DL Specimen Performing Laboratory [facility] [address] [place] [address] * SWALLOW MOTION SERIES (01/05/2017 2:45 PM) [...] Christiansen M.D. on 01/05/2017 3:17 PM. * CULTURE-URINE W/SENSITIVITY (01/05/2017 1:11 PM) Component Value Ref Range Battery Name URINE CULTURE Specimen Description URINE Special Requests NONE Culture >100,000 organisms/ml ENTEROCOCCUS FAECIUM <100,000 organisms/ml ENTEROCOCCUS FAECALIS (A) Report Status FINAL 01/08/2017 Organism ID >100,000 organisms/ml ENTEROCOCCUS FAECIUM Organism ID >100,000 organisms/ml ENTEROCOCCUS FAECIUM Organism ID <100,000 organisms/ml ENTEROCOCCUS FAECALIS Specimen Performing Laboratory Urine MAIN LAB [address] [place] [address] Organism Antibiotic Method Susceptibility >100,000 organisms/ml Nitrofurantoin [...] SHAMEKA (MCG/ML) enterococcus faecalis INTERPRETATION INTERPRETATION * UA REFLEX CULTURE LABEL (01/05/2017 1:11 PM) Component Value Ref Range UA Reflex Culture LAB LABEL Specimen Performing Laboratory Urine MAIN LAB [address] [place] [address] 22975 * URINALYSIS MICROSCOPIC REFLEX TO CULTURE (01/05/2017 1:11 PM) Component Value Ref Range WBCs,UA 10-20 0 - 2 /HPF RBCs,UA 0-2 0 - 3 /HPF Comment,UA Urine submitted for reflex culture if criteria are met:WBC>10, positive nitrite and/or >=1+ leukocyte esterase. If quantity is not sufficient, an addendum will follow. MucousUA TRACE Bacteria,UA PACKED (A) NEG-NEG Squamous Epithelial Cells 0-2 0 - 5 Specimen Performing Laboratory Urine [facility] [address] [place] [address] 43590 * URINALYSIS DIPSTICK REFLEX TO CULTURE (01/05/2017 1:11 PM) Component Value Ref Range Color,UA YELLOW Turbidity,UA 1+ (A) CLEAR-CLEAR Specific [place]-Urine 1.021 1.003 - 1.035 pH,UA 6.0 5.0 [...] result. Specimen Performing Laboratory Urine MAIN LAB [address] [place] [address] 41072 * POC GLUCOSE (01/05/2017 12:21 PM) Component Value Ref Range Glucose, POC 319 (H) 70 - 100 MG/DL Specimen Performing Laboratory [facility] [address] [place] [address] 21078 * POC GLUCOSE (01/05/2017 8:19 AM) Component Value Ref Range Glucose, POC 170 (H) 70 - 100 MG/DL Specimen Performing Laboratory [facility] [address] [place] [address] * PHOSPHORUS (01/05/2017 5:35 AM) Component Value Ref Range Phosphorus 3.7 2.0 - 4.0 MG/DL Specimen Performing Laboratory Blood MAIN LAB [address] [place] [address] * MAGNESIUM (01/05/2017 5:35 AM) Component Value Ref Range Magnesium 2.6 1.6 - 2.6 mg/dL Specimen Performing Laboratory Blood MAIN LAB [address] [place] [address] 73332 * CBC AND DIFF (01/05/2017 5:35 AM) Component Value Ref Range White Blood Cells 14.0 (H) 4.5 - 11.0 K/UL RBC 3.70 (L) 4.0 - 5.0 M/UL Hemoglobin 11.6 (L) 12.0 - 15.0 GM/DL Hematocrit 34.1 (L) 36 - 45 % MCV 92.2 80 - 100 FL MCH 31.2 26 - 34 PG MCHC 33.9 32.0 - 36.0 G/DL RDW 15.8 (H) 11 - 15 % Platelet Count 391 150 - 400 K/UL MPV 8.6 7 - 11 FL Neutrophils 82 (H) 41 - 77 % Lymphocytes 12 (L) 24 - 44 % Monocytes 5 4 - 12 % Eosinophils 1 0 - 5 % Basophils 0 0 - 2 % Absolute Neutrophil Count 11.50 (H) 1.8 - 7.0 K/UL Absolute Lymph Count 1.70 1.0 - 4.8 K/UL Absolute Monocyte Count 0.70 0 - 0.80 K/UL Absolute Eosinophil Count 0.10 0 - 0.45 K/UL Absolute Basophil Count 0.10 0 - 0.20 K/UL Specimen Performing Laboratory Blood MAIN LAB [address] [place] [address] * BASIC METABOLIC PANEL (01/05/2017 5:35 AM) Component Value Ref Range Sodium 153 (H) 137 - 147 MMOL/L Potassium 4.0 3.5 - 5.1 MMOL/L Chloride 116 (H) 98 - 110 MMOL/L CO2 30 21 - 30 MMOL/L Anion Gap 7 3 - 12 Glucose 181 (H) 70 - 100 MG/DL Blood Urea Nitrogen 39 (H) 7 - 25 MG/DL Creatinine 0.79 0.4 - 1.00 MG/DL Calcium 9.4 8.5 - 10.6 MG/DL eGFR Non >60 [...] Pharmacist for questions. Specimen Performing Laboratory Blood [facility] [address] [place] [address]2010 * IONIZED CALCIUM (01/05/2017 4:00 AM) Component Value Ref Range Ionized Calcium 1.20 1.0 - 1.3 MMOL/L Specimen Performing Laboratory Blood [facility] [address] [place] [address] 30835 * POC GLUCOSE (01/05/2017 3:43 AM) Component Value Ref Range Glucose, POC 256 (H) 70 - 100 MG/DL Specimen Performing Laboratory [facility] [address] [place] [address] 77761 * POC GLUCOSE (01/04/2017 8:23 PM) Component Value Ref Range Glucose, POC 224 (H) 70 - 100 MG/DL Specimen Performing Laboratory [facility] [address] [place] [address] 62106 * POC GLUCOSE (01/04/2017 4:35 PM) Component Value Ref Range Glucose, POC 241 (H) 70 - 100 MG/DL Specimen Performing Laboratory [facility] [address] [place] [address] 05268 * POC GLUCOSE (01/04/2017 12:44 PM) Component Value Ref Range Glucose, POC 272 (H) 70 - 100 MG/DL Specimen Performing Laboratory [facility] [address] [place] [address] 79988 * POC GLUCOSE (01/04/2017 7:55 AM) Component Value Ref Range Glucose, POC 241 (H) 70 - 100 MG/DL Specimen Performing Laboratory [facility] [address] [place] [address] 74669 * PHOSPHORUS (01/04/2017 4:52 AM) Component Value Ref Range Phosphorus 3.8 2.0 - 4.0 MG/DL Specimen Performing Laboratory Blood [facility] [address] [place] [address] 34825 * MAGNESIUM (01/04/2017 4:52 AM) Component Value Ref Range Magnesium 2.6 1.6 - 2.6 mg/dL Specimen Performing Laboratory Blood MAIN LAB [address] [place] [address] * IONIZED CALCIUM (01/04/2017 4:52 AM) Component Value Ref Range Ionized Calcium 1.20 1.0 - 1.3 MMOL/L Specimen Performing Laboratory Blood MAIN [facility] [address] [place] [address] * CBC AND DIFF (01/04/2017 4:52 AM) Component Value Ref Range White Blood Cells 14.8 (H) 4.5 - 11.0 K/UL RBC 3.77 (L) 4.0 - 5.0 M/UL Hemoglobin 11.5 (L) 12.0 - 15.0 GM/DL Hematocrit 34.5 (L) 36 - 45 % MCV 91.5 80 - 100 FL MCH 30.6 26 - 34 PG MCHC 33.4 32.0 - 36.0 G/DL RDW 16.0 (H) 11 - 15 % Platelet Count 388 150 - 400 K/UL MPV 8.6 7 - 11 FL Neutrophils 85 (H) 41 - 77 % Lymphocytes 9 (L) 24 - 44 % Monocytes 6 4 - 12 % Eosinophils 0 0 - 5 % Basophils 0 0 - 2 % Absolute Neutrophil Count 12.50 (H) 1.8 - 7.0 K/UL Absolute Lymph Count 1.30 1.0 - 4.8 K/UL Absolute Monocyte Count 0.90 (H) 0 - 0.80 K/UL Absolute Eosinophil Count 0.00 0 - 0.45 K/UL Absolute Basophil Count 0.00 0 - 0.20 K/UL Specimen Performing Laboratory Blood MAIN LAB [address] [place] [address] * BASIC METABOLIC PANEL (01/04/2017 4:52 AM) Component Value Ref Range Sodium 152 (H) 137 - 147 MMOL/L Potassium 3.9 3.5 - 5.1 MMOL/L Chloride 114 (H) 98 - 110 MMOL/L CO2 29 21 - 30 MMOL/L Anion Gap 9 3 - 12 Glucose 198 (H) 70 - 100 MG/DL Blood Urea Nitrogen 35 (H) 7 - 25 MG/DL Creatinine 0.73 0.4 - 1.00 MG/DL Calcium 9.3 8.5 [...] Pharmacist for questions. Specimen Performing Laboratory Blood [facility] [address] [place] [address] 74785 * POC GLUCOSE (01/04/2017 4:09 AM) Component Value Ref Range Glucose, POC 194 (H) 70 - 100 MG/DL Specimen Performing Laboratory [facility] [address] [place] [address] 36094 * POC GLUCOSE (01/03/2017 8:39 PM) Component Value Ref Range Glucose, POC 124 (H) 70 - 100 MG/DL Specimen Performing Laboratory [facility] [address] [place] [address] 41384 * POC GLUCOSE (01/03/2017 4:53 PM) Component Value Ref Range Glucose, POC 142 (H) 70 - 100 MG/DL Specimen Performing Laboratory [facility] [address] [place] [address] 11663 * POC GLUCOSE (01/03/2017 12:22 PM) Component Value Ref Range Glucose, POC 139 (H) 70 - 100 MG/DL Specimen Performing Laboratory [facility] [address] [place] [address] 19577 * IONIZED CALCIUM (01/03/2017 9:48 AM) Component Value Ref Range Ionized Calcium 1.18 1.0 - 1.3 MMOL/L Specimen Performing Laboratory [facility] [address] [place] [address] 72121 * PHOSPHORUS (01/03/2017 9:33 AM) Component Value Ref Range Phosphorus 5.0 (H) 2.0 - 4.0 MG/DL Specimen Performing Laboratory Blood [facility] [address] [place] [address] 88966 * MAGNESIUM (01/03/2017 9:33 AM) Component Value Ref Range Magnesium 2.8 (H) 1.6 - 2.6 mg/dL Specimen Performing Laboratory Blood [facility] [address] [place], [place] [id number] * CBC AND DIFF (01/03/2017 9:33 AM) Component Value Ref Range White Blood Cells 11.7 (H) 4.5 - 11.0 K/UL RBC 3.58 (L) 4.0 - 5.0 M/UL Hemoglobin 11.0 (L) 12.0 - 15.0 GM/DL Hematocrit 32.9 (L) 36 - 45 % MCV 91.8 80 - 100 FL MCH 30.7 26 - 34 PG MCHC 33.4 32.0 - 36.0 G/DL RDW 15.4 (H) 11 - 15 % Platelet Count 366 150 - 400 K/UL MPV 8.5 7 - 11 FL Neutrophils 84 (H) 41 - 77 % Lymphocytes 11 (L) 24 - 44 % Monocytes 5 4 - 12 % Eosinophils 0 0 - 5 % Basophils 0 0 - 2 % Absolute Neutrophil Count 9.80 (H) 1.8 - 7.0 K/UL Absolute Lymph Count 1.30 1.0 - 4.8 K/UL Absolute Monocyte Count 0.60 0 - 0.80 K/UL Absolute Eosinophil Count 0.10 0 - 0.45 K/UL Absolute Basophil Count 0.00 0 - 0.20 K/UL Specimen Performing Laboratory Blood [facility] [address] [place] [address] * BASIC METABOLIC PANEL (01/03/2017 9:33 AM) Component Value Ref Range Sodium 150 (H) 137 - 147 MMOL/L Potassium 3.9 3.5 - 5.1 MMOL/L Chloride 112 (H) 98 - 110 MMOL/L CO2 28 21 - 30 MMOL/L Anion Gap 10 3 - 12 Glucose 170 (H) 70 - 100 MG/DL Blood Urea Nitrogen 33 (H) 7 - 25 MG/DL Creatinine 0.69 0.4 - 1.00 MG/DL Calcium 9.4 8.5 - 10.6 MG/DL eGFR Non >60 [...] Performing Laboratory Blood [facility] [address] [place] [address] * POC GLUCOSE (01/03/2017 8:32 AM) Component Value Ref Range Glucose, POC 133 (H) 70 - 100 MG/DL Specimen Performing Laboratory [facility] [address] [place] [address] 16781 * POC GLUCOSE (01/02/2017 9:10 PM) Component Value Ref Range Glucose, POC 116 (H) 70 - 100 MG/DL Specimen Performing Laboratory [facility] [address] [place] [address] 65011 * POC GLUCOSE (01/02/2017 4:44 PM) Component Value Ref Range Glucose, POC 137 (H) 70 - 100 MG/DL Specimen Performing Laboratory [facility] [address] [place] [address] 40361 * POC GLUCOSE (01/02/2017 11:36 AM) Component Value Ref Range Glucose, POC 197 (H) 70 - 100 MG/DL Specimen Performing Laboratory [facility] [address] [place] [address] 17505 * POC GLUCOSE (01/02/2017 8:53 AM) Component Value Ref Range Glucose, POC 146 (H) 70 - 100 MG/DL Specimen Performing Laboratory [facility] [address] [place] [address] 55269 * IONIZED CALCIUM (01/02/2017 5:00 AM) Component Value Ref Range Ionized Calcium 0.99 (L)Comment: CHECKED 1.0 - 1.3 MMOL/L Specimen Performing Laboratory Blood [facility] [address] [place], [place] [id number] * PHOSPHORUS (01/02/2017 4:59 AM) Component Value Ref Range Phosphorus 4.5 (H) 2.0 - 4.0 MG/DL Specimen Performing Laboratory Blood [facility] [address] [place], [place] [id number] * MAGNESIUM (01/02/2017 4:59 AM) Component Value Ref Range Magnesium 2.7 (H) 1.6 - 2.6 mg/dL Specimen Performing Laboratory Blood [facility] [address] [place] [address] * CBC AND DIFF (01/02/2017 4:59 AM) Component Value Ref Range White Blood Cells 11.7 (H) 4.5 - 11.0 K/UL RBC 3.63 (L) 4.0 - 5.0 M/UL Hemoglobin 11.0 (L) 12.0 - 15.0 GM/DL Hematocrit 33.1 (L) 36 - 45 % MCV 91.2 80 - 100 FL MCH 30.3 26 - 34 PG MCHC 33.2 32.0 - 36.0 G/DL RDW 15.3 (H) 11 - 15 % Platelet Count 301 150 - 400 K/UL MPV 9.3 7 - 11 FL Neutrophils 75 41 - 77 % Lymphocytes 17 (L) 24 - 44 % Monocytes 6 4 - 12 % Eosinophils 1 0 - 5 % Basophils 1 0 - 2 % Absolute Neutrophil Count 8.80 (H) 1.8 - 7.0 K/UL Absolute Lymph Count 2.00 1.0 - 4.8 K/UL Absolute Monocyte Count 0.70 0 - 0.80 K/UL Absolute Eosinophil Count 0.10 0 - 0.45 K/UL Absolute Basophil Count 0.10 0 - 0.20 K/UL Specimen Performing Laboratory Blood MAIN LAB [address] [place] [address] * BASIC METABOLIC PANEL (01/02/2017 4:59 AM) Component Value Ref Range Sodium 149 (H) 137 - 147 MMOL/L Potassium 3.9 3.5 - 5.1 MMOL/L Chloride 114 (H) 98 - 110 MMOL/L CO2 25 21 - 30 MMOL/L Anion Gap 10 3 - 12 Glucose 153 (H) 70 - 100 MG/DL Blood Urea Nitrogen 33 (H) 7 - 25 MG/DL Creatinine 0.73 0.4 - 1.00 MG/DL Calcium 9.1 8.5 [...] Specimen Performing Laboratory Blood MAIN LAB [address] [place] [address] * POC GLUCOSE (01/01/2017 8:32 PM) Component Value Ref Range Glucose, POC 182 (H) 70 - 100 MG/DL Specimen Performing Laboratory MAIN [facility] [address] [place] [address] * POC GLUCOSE (01/01/2017 5:49 PM) Component Value Ref Range Glucose, POC 221 (H) 70 - 100 MG/DL Specimen Performing Laboratory [facility] [address] [place] [address] 42357 * POC GLUCOSE (01/01/2017 12:02 PM) Component Value Ref Range Glucose, POC 189 (H) 70 - 100 MG/DL Specimen Performing Laboratory [facility] [address] [place] [address] 40510 * POC GLUCOSE (01/01/2017 8:06 AM) Component Value Ref Range Glucose, POC 231 (H) 70 - 100 MG/DL Specimen Performing Laboratory MAIN LAB [address] [place] [address] 15277 * PHOSPHORUS (01/01/2017 5:07 AM) Component Value Ref Range Phosphorus 3.5 2.0 - 4.0 MG/DL Specimen Performing Laboratory Blood [facility] [address] [place] [address] 29112 * MAGNESIUM (01/01/2017 5:07 AM) Component Value Ref Range Magnesium 2.6 1.6 - 2.6 mg/dL Specimen Performing Laboratory Blood [facility] [address] [place] [address] 68490 * IONIZED CALCIUM (01/01/2017 5:07 AM) Component Value Ref Range Ionized Calcium 1.15 1.0 - 1.3 MMOL/L Specimen Performing Laboratory Blood [facility] [address] [place] [address] 27932 * CBC AND DIFF (01/01/2017 5:07 AM) Component Value Ref Range White Blood Cells 10.0 4.5 - 11.0 K/UL RBC 3.18 (L) 4.0 - 5.0 M/UL Hemoglobin 9.8 (L) 12.0 - 15.0 GM/DL Hematocrit 29.0 (L) 36 - 45 % MCV 91.3 80 - 100 FL MCH 30.7 26 - 34 PG MCHC 33.6 32.0 - 36.0 G/DL RDW 15.3 (H) 11 - 15 % Platelet Count 269 150 - 400 K/UL MPV 8.4 7 - 11 FL Neutrophils 81 (H) 41 - 77 % Lymphocytes 14 (L) 24 - 44 % Monocytes 4 4 - 12 % Eosinophils 1 0 - 5 % Basophils 0 0 - 2 % Absolute Neutrophil Count 8.10 (H) 1.8 - 7.0 K/UL Absolute Lymph Count 1.40 1.0 - 4.8 K/UL Absolute Monocyte Count 0.40 0 - 0.80 K/UL Absolute Eosinophil Count 0.10 0 - 0.45 K/UL Absolute Basophil Count 0.00 0 - 0.20 K/UL Specimen Performing Laboratory Blood MAIN LAB [address] [place] [address] 50349 * BASIC METABOLIC PANEL (01/01/2017 5:07 AM) Component Value Ref Range Sodium 146 137 - 147 MMOL/L Potassium 3.9 3.5 - 5.1 MMOL/L Chloride 113 (H) 98 - 110 MMOL/L CO2 27 21 - 30 MMOL/L Anion Gap 6 3 - 12 Glucose 195 (H) 70 - 100 MG/DL Blood Urea Nitrogen 32 (H) 7 - 25 MG/DL Creatinine 0.66 0.4 - 1.00 MG/DL Calcium 8.7 8.5 - 10.6 MG/DL eGFR Non >60 [...] questions. Specimen Performing Laboratory Blood MAIN LAB [address] [place], [place] [id number] * POC GLUCOSE (01/01/2017 4:00 AM) Component Value Ref Range Glucose, POC 191 (H) 70 - 100 MG/DL Specimen Performing Laboratory [facility] [address] [place] [address] 87758 * POC GLUCOSE (12/31/2016 8:29 PM) Component Value Ref Range Glucose, POC 132 (H) 70 - 100 MG/DL Specimen Performing Laboratory [facility] [address] [place] [address] 17728 * POC GLUCOSE (12/31/2016 5:21 PM) Component Value Ref Range Glucose, POC 149 (H) 70 - 100 MG/DL Specimen Performing Laboratory [facility] [address] [place] [address] 37212 * POC GLUCOSE (12/31/2016 1:11 PM) Component Value Ref Range Glucose, POC 162 (H) 70 - 100 MG/DL Specimen Performing Laboratory [facility] [address] [place] [address] 41118 * POC GLUCOSE (12/31/2016 8:53 AM) Component Value Ref Range Glucose, POC 134 (H) 70 - 100 MG/DL Specimen Performing Laboratory [facility] [address] [place] [address] 14670 * PHOSPHORUS (12/31/2016 5:25 AM) Component Value Ref Range Phosphorus 3.5 2.0 - 4.0 MG/DL Specimen Performing Laboratory Blood [facility] [address] [place] [address] 30042 * MAGNESIUM (12/31/2016 5:25 AM) Component Value Ref Range Magnesium 2.3 1.6 - 2.6 mg/dL Specimen Performing Laboratory Blood [facility] [address] [place], [place] [id number] * IONIZED CALCIUM (12/31/2016 5:25 AM) Component Value Ref Range Ionized Calcium 1.12 1.0 - 1.3 MMOL/L Specimen Performing Laboratory Blood [facility] [address] [place], [place] [id number] * CBC AND DIFF (12/31/2016 5:25 AM) Component Value Ref Range White Blood Cells 10.3 4.5 - 11.0 K/UL RBC 3.21 (L) 4.0 - 5.0 M/UL Hemoglobin 9.8 (L) 12.0 - 15.0 GM/DL Hematocrit 28.9 (L) 36 - 45 % MCV 89.9 80 - 100 FL MCH 30.6 26 - 34 PG MCHC 34.0 32.0 - 36.0 G/DL RDW 15.6 (H) 11 - 15 % Platelet Count 226 150 - 400 K/UL MPV 8.9 7 - 11 FL Neutrophils 78 (H) 41 - 77 % Lymphocytes 15 (L) 24 - 44 % Monocytes 6 4 - 12 % Eosinophils 1 0 - 5 % Basophils 0 0 - 2 % Absolute Neutrophil Count 8.00 (H) 1.8 - 7.0 K/UL Absolute Lymph Count 1.60 1.0 - 4.8 K/UL Absolute Monocyte Count 0.60 0 - 0.80 K/UL Absolute Eosinophil Count 0.10 0 - 0.45 K/UL Absolute Basophil Count 0.00 0 - 0.20 K/UL Specimen Performing Laboratory [facility] [address] [place] [address] * BASIC METABOLIC PANEL (12/31/2016 5:25 AM) Component Value Ref Range Sodium 146 137 - 147 MMOL/L Potassium 3.5 3.5 - 5.1 MMOL/L Chloride 113 (H) 98 - 110 MMOL/L CO2 26 21 - 30 MMOL/L Anion Gap 7 3 - 12 Glucose 130 (H) 70 - 100 MG/DL Blood Urea Nitrogen 27 (H) 7 - 25 MG/DL Creatinine 0.64 0.4 - 1.00 MG/DL Calcium 8.7 8.5 - 10.6 MG/DL eGFR Non >60 [...] questions. Specimen Performing Laboratory [facility] [address] [place] [address] * POC GLUCOSE (12/31/2016 4:11 AM) Component Value Ref Range Glucose, POC 121 (H) 70 - 100 MG/DL Specimen Performing Laboratory MAIN LAB [address] [place] [address] * POC GLUCOSE (12/30/2016 8:41 PM) Component Value Ref Range Glucose, POC 151 (H) 70 - 100 MG/DL Specimen Performing Laboratory MAIN LAB [address] [place] [address] * POC GLUCOSE (12/30/2016 5:43 PM) Component Value Ref Range Glucose, POC 159 (H) 70 - 100 MG/DL Specimen Performing Laboratory [facility] [address] [place] [address] * US DOPPLER VENOUS BILATERAL (12/30/2016 1:20 [...] Solis M.D. on 12/30/2016 3:00 PM. * POC GLUCOSE (12/30/2016 11:55 AM) Component Value Ref Range Glucose, POC 190 (H) 70 - 100 MG/DL Specimen Performing Laboratory MAIN LAB [address] [place] [address] * POC GLUCOSE (12/30/2016 7:51 AM) Component Value Ref Range Glucose, POC 143 (H) 70 - 100 MG/DL Specimen Performing Laboratory [facility] [address] [place] [address] * IONIZED CALCIUM (12/30/2016 3:37 AM) Component Value Ref Range Ionized Calcium 1.01 1.0 - 1.3 MMOL/L Specimen Performing Laboratory [facility] [address] [place] [address] * PHOSPHORUS (12/30/2016 3:37 AM) Component Value Ref Range Phosphorus 4.3 (H) 2.0 - 4.0 MG/DL Specimen Performing Laboratory [facility] [address] [place] [address] * MAGNESIUM (12/30/2016 3:37 AM) Component Value Ref Range Magnesium 2.2 1.6 - 2.6 mg/dL Specimen Performing Laboratory Blood [facility] [address] [place] [id number] * CBC AND DIFF (12/30/2016 3:37 AM) Component Value Ref Range White Blood Cells 9.6 4.5 - 11.0 K/UL RBC 3.16 (L) 4.0 - 5.0 M/UL Hemoglobin 9.8 (L) 12.0 - 15.0 GM/DL Hematocrit 28.4 (L) 36 - 45 % MCV 89.8 80 - 100 FL MCH 30.9 26 - 34 PG MCHC 34.4 32.0 - 36.0 G/DL RDW 15.3 (H) 11 - 15 % Platelet Count 218 150 - 400 K/UL MPV 9.1 7 - 11 FL Neutrophils 77 41 - 77 % Lymphocytes 14 (L) 24 - 44 % Monocytes 7 4 - 12 % Eosinophils 1 0 - 5 % Basophils 1 0 - 2 % Absolute Neutrophil Count 7.40 (H) 1.8 - 7.0 K/UL Absolute Lymph Count 1.40 1.0 - 4.8 K/UL Absolute Monocyte Count 0.70 0 - 0.80 K/UL Absolute Eosinophil Count 0.10 0 - 0.45 K/UL Absolute Basophil Count 0.10 0 - 0.20 K/UL Specimen Performing Laboratory Blood [facility] [address] [place] [address] * BASIC METABOLIC PANEL (12/30/2016 3:37 AM) Component Value Ref Range Sodium 141 137 - 147 MMOL/L Potassium 4.0 3.5 - 5.1 MMOL/L Chloride 111 (H) 98 - 110 MMOL/L CO2 24 21 - 30 MMOL/L Anion Gap 6 3 - 12 Glucose 200 (H) 70 - 100 MG/DL Blood Urea Nitrogen 27 (H) 7 - 25 MG/DL Creatinine 0.69 0.4 - 1.00 MG/DL Calcium 8.3 (L) 8.5 - 10.6 MG/DL eGFR Non >60 [...] questions. Specimen Performing Laboratory [facility] [address] [place] [address] * POC GLUCOSE (12/30/2016 3:27 AM) Component Value Ref Range Glucose, POC 196 (H) 70 - 100 MG/DL Specimen Performing Laboratory [facility] [address] [place] [address] * POC GLUCOSE (12/29/2016 8:38 PM) Component Value Ref Range Glucose, POC 148 (H) 70 - 100 MG/DL Specimen Performing Laboratory MAIN LAB [address] [place] [address] * POC GLUCOSE (12/29/2016 5:25 PM) Component Value Ref Range Glucose, POC 165 (H) 70 - 100 MG/DL Specimen Performing Laboratory [facility] [address] [place] [address] * SODIUM (12/29/2016 4:55 PM) Component Value Ref Range Sodium 142 137 - 147 MMOL/L Specimen Performing Laboratory Blood [facility] [address] [place] [address] 0[address] * POC GLUCOSE (12/29/2016 12:04 PM) Component Value Ref Range Glucose, POC 109 (H) 70 - 100 MG/DL Specimen Performing Laboratory [facility] [address] [place] [address] * IR ARTERIOGRAM NEURO (12/29/2016 11:09 AM) [...] recurrent hemorrhage in the left frontal region. 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 Local with Sedation PROCEDURE. Ultrasound [...] insure maintain an air free system. A 5-Portuguese diagnostic catheter was introduced through the sheath. Utilizing a combination of roadmap, guidewire and direct catheter access techniques, a 5 Portuguese diagnostic catheter was used to perform diagnostic [...] recurrent hemorrhage in the left frontal region. 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 Local with Sedation PROCEDURE. Ultrasound [...] insure maintain an air free system. A 5-Portuguese diagnostic catheter was introduced through the sheath. Utilizing a combination of roadmap, guidewire and direct catheter access techniques, a 5 Portuguese diagnostic catheter was used to perform diagnostic [...] Mancilla M.D. on 01/09/2017 2:10 PM. * POC GLUCOSE (12/29/2016 8:58 AM) Component Value Ref Range Glucose, POC 109 (H) 70 - 100 MG/DL Specimen Performing Laboratory MAIN LAB [address] [place] [address] * IONIZED CALCIUM (12/29/2016 4:23 AM) Component Value Ref Range Ionized Calcium 1.11 1.0 - 1.3 MMOL/L Specimen Performing Laboratory [facility] [address] [place] [address] * PHOSPHORUS (12/29/2016 4:23 AM) Component Value Ref Range Phosphorus 3.5 2.0 - 4.0 MG/DL Specimen Performing Laboratory [facility] [address] [place] [address] * MAGNESIUM (12/29/2016 4:23 AM) Component Value Ref Range Magnesium 2.2 1.6 - 2.6 mg/dL Specimen Performing Laboratory [facility] [address] [place] [address] * CBC AND DIFF (12/29/2016 4:23 AM) Component Value Ref Range White Blood Cells 8.9 4.5 - 11.0 K/UL RBC 3.43 (L) 4.0 - 5.0 M/UL Hemoglobin 10.5 (L) 12.0 - 15.0 GM/DL Hematocrit 30.9 (L) 36 - 45 % MCV 90.1 80 - 100 FL MCH 30.5 26 - 34 PG MCHC 33.9 32.0 - 36.0 G/DL RDW 15.6 (H) 11 - 15 % Platelet Count 186 150 - 400 K/UL MPV 8.5 7 - 11 FL Neutrophils 70 41 - 77 % Lymphocytes 20 (L) 24 - 44 % Monocytes 6 4 - 12 % Eosinophils 3 0 - 5 % Basophils 1 0 - 2 % Absolute Neutrophil Count 6.40 1.8 - 7.0 K/UL Absolute Lymph Count 1.80 1.0 - 4.8 K/UL Absolute Monocyte Count 0.50 0 - 0.80 K/UL Absolute Eosinophil Count 0.20 0 - 0.45 K/UL Absolute Basophil Count 0.00 0 - 0.20 K/UL Specimen Performing Laboratory Blood [facility] [address] [place] [address] * BASIC METABOLIC PANEL (12/29/2016 4:23 AM) Component Value Ref Range Sodium 144 137 - 147 MMOL/L Potassium 3.9 3.5 - 5.1 MMOL/L Chloride 112 (H) 98 - 110 MMOL/L CO2 26 21 - 30 MMOL/L Anion Gap 6 3 - 12 Glucose 156 (H) 70 - 100 MG/DL Blood Urea Nitrogen 21 7 - 25 MG/DL Creatinine 0.60 0.4 - 1.00 MG/DL Calcium 8.3 (L) 8.5 - 10.6 MG/DL eGFR Non >60 [...] questions. Specimen Performing Laboratory [facility] [address] [place] [address] * POC GLUCOSE (12/29/2016 4:08 AM) Component Value Ref Range Glucose, POC 145 (H) 70 - 100 MG/DL Specimen Performing Laboratory MAIN LAB [address] [place] [address] * SODIUM (12/28/2016 9:53 PM) Component Value Ref Range Sodium 147 137 - 147 MMOL/L Specimen Performing Laboratory [facility] [address] [place] [address] * POC GLUCOSE (12/28/2016 8:30 PM) Component Value Ref Range Glucose, POC 134 (H) 70 - 100 MG/DL Specimen Performing Laboratory [facility]IN [facility] [address] [place] [address] * MRI HEAD WO/W CONTRAST (12/28/2016 7:15 [...] DICKERSON M.D. on 12/29/2016 8:33 AM. * POC GLUCOSE (12/28/2016 5:07 PM) Component Value Ref Range Glucose, POC 151 (H) 70 - 100 MG/DL Specimen Performing Laboratory [facility] [address] [place] [address] * SODIUM (12/28/2016 4:18 PM) Component Value Ref Range Sodium 152 (H) 137 - 147 MMOL/L Specimen Performing Laboratory [facility] [address] [place] [address] * MAGNESIUM (12/28/2016 1:09 PM) Component Value Ref Range Magnesium 2.2 1.6 - 2.6 mg/dL Specimen Performing Laboratory Blood [facility] [address] [place] [address] * POTASSIUM (12/28/2016 1:09 PM) Component Value Ref Range Potassium 4.1 3.5 - 5.1 MMOL/L Specimen Performing Laboratory [facility] [address] [place] [address] * POC GLUCOSE (12/28/2016 12:22 PM) Component Value Ref Range Glucose, POC 141 (H) 70 - 100 MG/DL Specimen Performing Laboratory MAIN LAB [address] [place] [address] * CTA NECK WO/W CONTRAST+POST P (12/28/2016 [...] the pharynx. Visualized major branches of the [place] are patent without evidence of [...] the pharynx. Visualized major branches of the [place] are patent without evidence of [...] Torres M.D. on 12/28/2016 11:42 AM. * POTASSIUM (12/28/2016 9:53 AM) Component Value Ref Range Potassium 3.8 3.5 - 5.1 MMOL/L Specimen Performing Laboratory Blood [facility] [address] [place] [address] * SODIUM (12/28/2016 9:53 AM) Component Value Ref Range Sodium 142 137 - 147 MMOL/L Specimen Performing Laboratory Blood [facility] [address] [place] [address] 777[address] * POC GLUCOSE (12/28/2016 9:04 AM) Component Value Ref Range Glucose, POC 170 (H) 70 - 100 MG/DL Specimen Performing Laboratory [facility] [address] [place] [address] * POC GLUCOSE (12/28/2016 4:02 AM) Component Value Ref Range Glucose, POC 159 (H) 70 - 100 MG/DL Specimen Performing Laboratory [facility] [address] [place], [place] [id number] * IONIZED CALCIUM (12/28/2016 3:35 AM) Component Value Ref Range Ionized Calcium 1.09 1.0 - 1.3 MMOL/L Specimen Performing Laboratory Blood [facility] [address] [place] [address] * PHOSPHORUS (12/28/2016 3:35 AM) Component Value Ref Range Phosphorus 3.7 2.0 - 4.0 MG/DL Specimen Performing Laboratory Blood [facility] [address] [place], [place] [id number] * MAGNESIUM (12/28/2016 3:35 AM) Component Value Ref Range Magnesium 1.9 1.6 - 2.6 mg/dL Specimen Performing Laboratory Blood [facility] [address] [place], [place] [id number] * CBC AND DIFF (12/28/2016 3:35 AM) Component Value Ref Range White Blood Cells 9.5 4.5 - 11.0 K/UL RBC 3.78 (L) 4.0 - 5.0 M/UL Hemoglobin 11.4 (L) 12.0 - 15.0 GM/DL Hematocrit 34.9 (L) 36 - 45 % MCV 92.3 80 - 100 FL MCH 30.3 26 - 34 PG MCHC 32.8 32.0 - 36.0 G/DL RDW 15.7 (H) 11 - 15 % Platelet Count 218 150 - 400 K/UL MPV 8.0 7 - 11 FL Neutrophils 74 41 - 77 % Lymphocytes 19 (L) 24 - 44 % Monocytes 6 4 - 12 % Eosinophils 1 0 - 5 % Basophils 0 0 - 2 % Absolute Neutrophil Count 7.00 1.8 - 7.0 K/UL Absolute Lymph Count 1.80 1.0 - 4.8 K/UL Absolute Monocyte Count 0.60 0 - 0.80 K/UL Absolute Eosinophil Count 0.10 0 - 0.45 K/UL Absolute Basophil Count 0.00 0 - 0.20 K/UL Specimen Performing Laboratory Blood [facility] [address] [place] [address] * BASIC METABOLIC PANEL (12/28/2016 3:35 AM) Component Value Ref Range Sodium 143 137 - 147 MMOL/L Potassium 3.5 3.5 - 5.1 MMOL/L Chloride 109 98 - 110 MMOL/L CO2 27 21 - 30 MMOL/L Anion Gap 7 3 - 12 Glucose 175 (H) 70 - 100 MG/DL Blood Urea Nitrogen 20 7 - 25 MG/DL Creatinine 0.60 0.4 - 1.00 MG/DL Calcium 8.5 8.5 - 10.6 MG/DL eGFR Non >60 [...] Specimen Performing Laboratory [facility] [address] [place] [address] * SODIUM (12/27/2016 11:04 PM) Component Value Ref Range Sodium 142 137 - 147 MMOL/L Specimen Performing Laboratory Blood [facility] [address] [place] [address] * PROCALCITONIN (12/27/2016 11:04 PM) Component Value Ref Range Procalcitonin <0.05 <0.10 NG/ML Specimen Performing Laboratory Blood [facility] [address] [place] [address] * POC GLUCOSE (12/27/2016 9:00 PM) Component Value Ref Range Glucose, POC 151 (H) 70 - 100 MG/DL Specimen Performing Laboratory [facility] [address] [place] [address] * POC GLUCOSE (12/27/2016 5:53 PM) Component Value Ref Range Glucose, POC 135 (H) 70 - 100 MG/DL Specimen Performing Laboratory MAIN [facility] [address] [place] [address] * SODIUM (12/27/2016 4:39 PM) Component Value Ref Range Sodium 145 137 - 147 MMOL/L Specimen Performing Laboratory [facility] [address] [place] [address] * PROCALCITONIN (12/27/2016 10:43 AM) Component Value Ref Range Procalcitonin <0.05 <0.10 NG/ML Specimen Performing Laboratory [facility] [address] [place] [address] * SODIUM (12/27/2016 10:43 AM) Component Value Ref Range Sodium 148 (H) 137 - 147 MMOL/L Specimen Performing Laboratory [facility] [address] [place] [address] * CT HEAD WO CONTRAST (12/27/2016 10:12 AM) Specimen Performing Laboratory [facility] RESULTS Impressions 1.Interval retraction of the left frontal approach surgical drain. 2.Minimal increase in the size of the left frontal intraparenchymal hematoma with minimal increase in surrounding edema, stable localized mass effect, and trace left to right frontal midline shift. Improving pneumocephalus. 3.Stable intraventricular blood products. Approved by Kraig Steele M.D. on 12/27/2016 12:44 PM By my electronic signature, I attest that I have personally reviewed the images for this examination and formulated the interpretations and opinions expressed in this report Finalized by Isaias Torres M.D. on 12/27/2016 12:53 PM. Dictated by Kraig Steele M.D. on 12/27/2016 11:[address] HEAD CLINICAL HISTORY: 66-year-old female, left intraparenchymal hematoma. TECHNIQUE: Multiple contiguous axial images were obtained of the brain without intravenous contrast. COMPARISON: CT head December 25, 2016 FINDINGS: Interval retraction of the left frontal approach surgical drain, which terminates within the left frontal hematoma. There has been continued evolution of the left frontal hematoma, which is minimally increased in size, now measuring 6.2 cm (series 2 image 15), previously 5.9 cm. There is stable to very slight increase in surrounding low density, likely representing localized cerebral edema. Improving pneumocephalus. There is essentially unchanged mild surrounding mass effect which results in mild deformation of the anterior horn of the left lateral ventricle. Mild localized sulcal effacement along the left frontal convexity. Stable intraventricular blood products. Unchanged trace left frontal midline shift. The mastoid air cells and visualized paranasal sinuses are well-aerated. Procedure Note Interface, Radiant Results - 12/27/2016 12:[address] HEAD CLINICAL HISTORY: 66-year-old female, left intraparenchymal hematoma. TECHNIQUE: Multiple contiguous axial images were obtained of the brain without intravenous contrast. COMPARISON: CT head December 25, 2016 FINDINGS: Interval retraction of the left frontal approach surgical drain, which terminates within the left frontal hematoma. There has been continued evolution of the left frontal hematoma, which is minimally increased in size, now measuring 6.2 cm (series 2 image 15), previously 5.9 cm. There is stable to very slight increase in surrounding low density, likely representing localized cerebral edema. Improving pneumocephalus. There is essentially unchanged mild surrounding mass effect which results in mild deformation of the anterior horn of the left lateral ventricle. Mild localized sulcal effacement along the left frontal convexity. Stable intraventricular blood products. Unchanged trace left frontal midline shift. The mastoid air cells and visualized paranasal sinuses are well-aerated. IMPRESSION 1. Interval retraction of the left frontal approach surgical drain. 2. Minimal increase in the size of the left frontal intraparenchymal hematoma with minimal increase in surrounding edema, stable localized mass effect, and trace left to right frontal midline shift. Improving pneumocephalus. 3. Stable intraventricular blood products. Approved by Kraig Steele M.D. on 12/27/2016 12:44 PM By my electronic signature, I attest that I have personally reviewed the images for this examination and formulated the interpretations and opinions expressed in this report Finalized by Isaias Torres M.D. on 12/27/2016 12:53 PM. Dictated by Kraig Steele M.D. on 12/27/2016 11:59 AM. * IONIZED CALCIUM (12/27/2016 3:56 AM) Component Value Ref Range Ionized Calcium 1.02 1.0 - 1.3 MMOL/L Specimen Performing Laboratory [facility] [address] [place] [address] * PHOSPHORUS (12/27/2016 3:56 AM) Component Value Ref Range Phosphorus 1.6 (L) 2.0 - 4.0 MG/DL Specimen Performing Laboratory [facility] [address] [place] [address] * MAGNESIUM (12/27/2016 3:56 AM) Component Value Ref Range Magnesium 1.9 1.6 - 2.6 mg/dL Specimen Performing Laboratory [facility] [address] [place] [address]68 * CBC AND DIFF (12/27/2016 3:56 AM) Component Value Ref Range White Blood Cells 10.5 4.5 - 11.0 K/UL RBC 3.60 (L) 4.0 - 5.0 M/UL Hemoglobin 11.0 (L) 12.0 - 15.0 GM/DL Hematocrit 32.8 (L) 36 - 45 % MCV 91.2 80 - 100 FL MCH 30.7 26 - 34 PG MCHC 33.6 32.0 - 36.0 G/DL RDW 15.6 (H) 11 - 15 % Platelet Count 203 150 - 400 K/UL MPV 8.1 7 - 11 FL Neutrophils 79 (H) 41 - 77 % Lymphocytes 15 (L) 24 - 44 % Monocytes 6 4 - 12 % Eosinophils 0 0 - 5 % Basophils 0 0 - 2 % Absolute Neutrophil Count 8.20 (H) 1.8 - 7.0 K/UL Absolute Lymph Count 1.60 1.0 - 4.8 K/UL Absolute Monocyte Count 0.60 0 - 0.80 K/UL Absolute Eosinophil Count 0.00 0 - 0.45 K/UL Absolute Basophil Count 0.00 0 - 0.20 K/UL Specimen Performing Laboratory [facility] [address] [place] [address] 17652 * BASIC METABOLIC PANEL (12/27/2016 3:56 AM) Component Value Ref Range Sodium 149 (H) 137 - 147 MMOL/L Potassium 3.4 (L) 3.5 - 5.1 MMOL/L Chloride 116 (H) 98 - 110 MMOL/L CO2 23 21 - 30 MMOL/L Anion Gap 10 3 - 12 Glucose 184 (H) 70 - 100 MG/DL Blood Urea Nitrogen 19 7 - 25 MG/DL Creatinine 0.71 0.4 - 1.00 MG/DL Calcium 8.5 8.5 - 10.6 MG/DL eGFR Non >60 [...] Specimen Performing Laboratory [facility] [address] [place] [address]128 * POTASSIUM (12/26/2016 9:58 PM) Component Value Ref Range Potassium 4.3 3.5 - 5.1 MMOL/L Specimen Performing Laboratory [facility] [address] [place] [address] 8[address]24 * SODIUM (12/26/2016 9:58 PM) Component Value Ref Range Sodium 154 (H) 137 - 147 MMOL/L Specimen Performing Laboratory [facility] [address] [place] [address] 0[address]37 * POTASSIUM (12/26/2016 4:11 PM) Component Value Ref Range Potassium 3.4 (L) 3.5 - 5.1 MMOL/L Specimen Performing Laboratory [facility] [address] [place] [address] 51553 * SODIUM (12/26/2016 4:11 PM) Component Value Ref Range Sodium 156 (H) 137 - 147 MMOL/L Specimen Performing Laboratory [facility] [address] [place], [place] [id number] * CHEST SINGLE VIEW (12/26/2016 2:22 PM) Specimen Performing Laboratory [facility] RESULTS [...] hemidiaphragm with the tip not in the [id number]. Heart size and pulmonary vasculature are within normal limits. No consolidation, pleural effusion, or pneumothorax. ACDF is noted. Partially visualized posterior spinal fixation hardware. Procedure Note Interface, Radiant Results - 12/26/2016 4:44 PM CDT CHEST SINGLE VIEW History: fever. Comparison: Chest radiograph from December 24, 2016. Findings: Enteric tube is in place coursing below the left hemidiaphragm with the tip not in the [id number]. Heart size and pulmonary vasculature are within [...] Shaw M.D. on 12/26/2016 3:23 PM. * UA REFLEX CULTURE LABEL (12/26/2016 12:37 PM) Component Value Ref Range UA Reflex Culture LAB LABEL Specimen Performing Laboratory U[facility] MAIN [facility] [address] [place] [address] * URINALYSIS MICROSCOPIC REFLEX TO CULTURE (12/26/2016 12:37 PM) Component Value Ref Range WBCs,UA 0-2 0 - 2 /HPF RBCs,UA 2-10 0 - 3 /HPF Comment,UA Urine submitted for reflex culture if criteria are met:WBC>10, positive nitrite and/or >=1+ leukocyte esterase. If quantity is not sufficient, an addendum will follow. MucousUA TRACE Specimen Performing Laboratory [facility]IN [facility] [address] [place] [address] * URINALYSIS DIPSTICK REFLEX TO CULTURE (12/26/2016 12:37 PM) Component Value Ref Range Color,UA YELLOW Turbidity,UA CLEAR CLEAR-CLEAR Specific [place]-Urine 1.017 1.003 - 1.035 pH,UA 8.0 5.0 - 8.0 Protein,UA 1+ (A) NEG-NEG Glucose,UA NEG NEG-NEG Ketones,UA NEG NEG-NEG Bilirubin,UA NEG NEG-NEG Blood,UA 1+ (A) NEG-NEG Urobilinogen,UA NORMAL NORM-NORMAL Nitrite,UA NEG NEG-NEG Leukocytes,UA NEG NEG-NEG Urine Ascorbic Acid, UA NEG NEG-NEG Specimen Performing Laboratory [facility] [address] [place] [address] * CULTURE-BLOOD W/SENSITIVITY (12/26/2016 12:37 PM) Component Value Ref Range Battery Name BLOOD CULTURE Specimen Description BLOOD LEFT FOREARM Special Requests NONE Culture POSITIVE SMEAR: GRAM POSITIVE COCCI RESEMBLING STAPHYLOCOCCI one bottle only CRITICAL VALUE CALLED TO AND READ BACK BY/TIME/Vigiglobe Delaney Vang 12/27/16 1456 TL STAPHYLOCOCCUS, COAGULASE NEGATIVE , probable contamination. Susceptibility performed only by special request. Report Status FINAL 01/01/2017 Specimen Performing Laboratory Blood MAIN [facility] [address] [place], [place] [id number] * CULTURE-BLOOD W/SENSITIVITY (12/26/2016 12:37 PM) Component Value Ref Range Battery Name BLOOD CULTURE Specimen Description BLOOD LEFT ANTECUBITAL Special Requests NONE Culture NO GROWTH 5 DAYS Report Status FINAL 01/01/2017 Specimen Performing Laboratory [facility] [address] [place] [address]7 * POTASSIUM (12/26/2016 10:30 AM) Component Value Ref Range Potassium 3.4 (L) 3.5 - 5.1 MMOL/L Specimen Performing Laboratory [facility] [address] [place] [address] 8[address] * SODIUM (12/26/2016 10:30 AM) Component Value Ref Range Sodium 152 (H) 137 - 147 MMOL/L Specimen Performing Laboratory Blood [facility] [address] [place] [address] * IONIZED CALCIUM (12/26/2016 4:16 AM) Component Value Ref Range Ionized Calcium 1.07 1.0 - 1.3 MMOL/L Specimen Performing Laboratory Blood [facility]IN [facility] [address] [place] [address]755 * PHOSPHORUS (12/26/2016 4:16 AM) Component Value Ref Range Phosphorus 2.6 2.0 - 4.0 MG/DL Specimen Performing Laboratory Blood [facility]IN [facility] [address] [place] [address] * MAGNESIUM (12/26/2016 4:16 AM) Component Value Ref Range Magnesium 2.2 1.6 - 2.6 mg/dL Specimen Performing Laboratory [facility] [address] [place] [address] * CBC AND DIFF (12/26/2016 4:16 AM) Component Value Ref Range White Blood Cells 8.2 4.5 - 11.0 K/UL RBC 2.98 (L) 4.0 - 5.0 M/UL Hemoglobin 9.1 (L) 12.0 - 15.0 GM/DL Hematocrit 27.1 (L) 36 - 45 % MCV 90.9 80 - 100 FL MCH 30.5 26 - 34 PG MCHC 33.5 32.0 - 36.0 G/DL RDW 16.0 (H) 11 - 15 % Platelet Count 165 150 - 400 K/UL MPV 8.0 7 - 11 FL Neutrophils 75 41 - 77 % Lymphocytes 17 (L) 24 - 44 % Monocytes 7 4 - 12 % Eosinophils 0 0 - 5 % Basophils 1 0 - 2 % Absolute Neutrophil Count 6.20 1.8 - 7.0 K/UL Absolute Lymph Count 1.40 1.0 - 4.8 K/UL Absolute Monocyte Count 0.60 0 - 0.80 K/UL Absolute Eosinophil Count 0.00 0 - 0.45 K/UL Absolute Basophil Count 0.00 0 - 0.20 K/UL Specimen Performing Laboratory Blood [facility] [address] [place] [address] * BASIC METABOLIC PANEL (12/26/2016 4:16 AM) Component Value Ref Range Sodium 149 (H) 137 - 147 MMOL/L Potassium 3.2 (L) 3.5 - 5.1 MMOL/L Chloride 114 (H) 98 - 110 MMOL/L CO2 28 21 - 30 MMOL/L Anion Gap 7 3 - 12 Glucose 138 (H) 70 - 100 MG/DL Blood Urea Nitrogen 19 7 - 25 MG/DL Creatinine 0.60 0.4 - 1.00 MG/DL Calcium 8.4 (L) 8.5 - 10.6 MG/DL eGFR Non >60 [...] Performing Laboratory [facility] [address] [place] [address] * SODIUM (12/25/2016 10:25 PM) Component Value Ref Range Sodium 151 (H) 137 - 147 MMOL/L Specimen Performing Laboratory [facility] [address] [place] [address] * SODIUM (12/25/2016 4:36 PM) Component Value Ref Range Sodium 151 (H) 137 - 147 MMOL/L Specimen Performing Laboratory [facility] [address] [place] [address] * CT HEAD WO CONTRAST (12/25/2016 2:21 PM) Specimen Performing Laboratory [facility] RESULTS Impressions 1. Interval retraction of the surgical drain was satisfactory positioning within the grossly stable residual anterior left frontal cerebral hematoma. 2. Improving postoperative pneumocephalus without significant change in intracranial mass effect and left to right frontal midline shift. 3. Persistent mild interventricular hemorrhage. 4. Resolution of subarachnoid hemorrhage. Finalized by Ronnie Hoff M.D. on 12/25/2016 2:35 PM. Dictated by Ronnie Hoff M.D. on 12/25/2016 2:31 PM. Narrative EXAM: CT HEAD HISTORY: , INTRACRANIAL HEMORRHAGE, TECHNIQUE: Multiple contiguous axial images were obtained of the brain without intravenous contrast. COMPARISON: CT head December 24, 2016 FINDINGS: Dr. Ronnie Hoff M.D. has personally reviewed these images and formulated the interpretations and opinions expressed in this report. Interval retraction of the surgical drain is noted with fenestrations now noted within the posterior aspect of the residual anterior left frontal cerebral hematoma. There is improving mild postoperative pneumocephalus. Residual hematoma is not significantly changed in size, measuring approximately 5 cm. Left right frontal midline shift and localized mass effect is not significant changed. Ventricles remain nondistended with persistent mild intraventricular hemorrhage. There is resolution of previously noted trace subarachnoid hemorrhage. Basal cisterns remain patent. No new hemorrhage is identified. Wilhelm- white matter interfaces are otherwise maintained. Procedure Note Interface, Radiant Results - 12/25/2016 2:38 PM CDT EXAM: CT HEAD HISTORY: , INTRACRANIAL HEMORRHAGE, TECHNIQUE: Multiple contiguous axial images were obtained of the brain without intravenous contrast. COMPARISON: CT head December 24, 2016 FINDINGS: Dr. Ronnie Hoff M.D. has personally reviewed these images and formulated the interpretations and opinions expressed in this report. Interval retraction of the surgical drain is noted with fenestrations now noted within the posterior aspect of the residual anterior left frontal cerebral hematoma. There is improving mild postoperative pneumocephalus. Residual hematoma is not significantly changed in size, measuring approximately 5 cm. Left right frontal midline shift and localized mass effect is not significant changed. Ventricles remain nondistended with persistent mild intraventricular hemorrhage. There is resolution of previously noted trace subarachnoid hemorrhage. Basal cisterns remain patent. No new hemorrhage is identified. Wilhelm- white matter interfaces are otherwise maintained. IMPRESSION 1. Interval retraction of the surgical drain was satisfactory positioning within the grossly stable residual anterior left frontal cerebral hematoma. 2. Improving postoperative pneumocephalus without significant change in intracranial mass effect and left to right frontal midline shift. 3. Persistent mild interventricular hemorrhage. 4. Resolution of subarachnoid hemorrhage. Finalized by Ronnie Hoff M.D. on 12/25/2016 2:35 PM. Dictated by Ronnie Hoff M.D. on 12/25/2016 2:31 PM. * TROPONIN-I (12/25/2016 10:52 AM) Component Value Ref Range Troponin-I 0.02 0.0 - 0.05 NG/ML Specimen Performing Laboratory MAIN LAB [address] [place] [address] * POTASSIUM (12/25/2016 10:52 AM) Component Value Ref Range Potassium 4.0 3.5 - 5.1 MMOL/L Specimen Performing Laboratory Blood MAIN [facility] [address] [place] [address] * SODIUM (12/25/2016 10:52 AM) Component Value Ref Range Sodium 152 (H) 137 - 147 MMOL/L Specimen Performing Laboratory Blood [facility]IN [facility] [address] [place] [address] * IONIZED CALCIUM (12/25/2016 3:35 AM) Component Value Ref Range Ionized Calcium 1.09 1.0 - 1.3 MMOL/L Specimen Performing Laboratory Blood [facility] [address] [place] [address] * PHOSPHORUS (12/25/2016 3:35 AM) Component Value Ref Range Phosphorus 2.4 2.0 - 4.0 MG/DL Specimen Performing Laboratory Blood MAIN LAB [address] [place] [address] * MAGNESIUM (12/25/2016 3:35 AM) Component Value Ref Range Magnesium 2.2 1.6 - 2.6 mg/dL Specimen Performing Laboratory Blood MAIN LAB [address] [place] [address] * CBC AND DIFF (12/25/2016 3:35 AM) Component Value Ref Range White Blood Cells 11.8 (H) 4.5 - 11.0 K/UL RBC 3.06 (L) 4.0 - 5.0 M/UL Hemoglobin 9.3 (L) 12.0 - 15.0 GM/DL Hematocrit 27.5 (L) 36 - 45 % MCV 89.9 80 - 100 FL MCH 30.4 26 - 34 PG MCHC 33.8 32.0 - 36.0 G/DL RDW 15.5 (H) 11 - 15 % Platelet Count 167 150 - 400 K/UL MPV 7.7 7 - 11 FL Neutrophils 83 (H) 41 - 77 % Lymphocytes 11 (L) 24 - 44 % Monocytes 6 4 - 12 % Eosinophils 0 0 - 5 % Basophils 0 0 - 2 % Absolute Neutrophil Count 9.70 (H) 1.8 - 7.0 K/UL Absolute Lymph Count 1.30 1.0 - 4.8 K/UL Absolute Monocyte Count 0.70 0 - 0.80 K/UL Absolute Eosinophil Count 0.00 0 - 0.45 K/UL Absolute Basophil Count 0.00 0 - 0.20 K/UL Specimen Performing Laboratory Blood MAIN [facility] [address] [place] [address] * BASIC METABOLIC PANEL (12/25/2016 3:35 AM) Component Value Ref Range Sodium 146 137 - 147 MMOL/L Potassium 3.3 (L) 3.5 - 5.1 MMOL/L Chloride 112 (H) 98 - 110 MMOL/L CO2 27 21 - 30 MMOL/L Anion Gap 7 3 - 12 Glucose 126 (H) 70 - 100 MG/DL Blood Urea Nitrogen 14 7 - 25 MG/DL Creatinine 0.64 0.4 - 1.00 MG/DL Calcium 8.2 (L) 8.5 - 10.6 MG/DL eGFR Non >60 [...] Performing Laboratory Blood [facility] [address] [place] [address] * SODIUM (12/24/2016 10:00 PM) Component Value Ref Range Sodium 144 137 - 147 MMOL/L Specimen Performing Laboratory [facility] [address] [place] [address] * BLOOD GASES, ARTERIAL (12/24/2016 5:44 PM) Component Value Ref Range pH-Arterial 7.42 7.35 - 7.45 pCO2-Arterial 37 35 - 45 MMHG pO2-Arterial 165 (H) 80 - 100 MMHG Base Deficit-Arterial 0.0 MMOL/L O2 Sat-Arterial 99.6 (H) 95 - 99 % Ytnhocxxtsi-BDR-Cqf 24.4 21 - 28 MMOL/L Specimen Performing Laboratory Blood, arterial - Blood [facility] [address] [place] [address] * SODIUM (12/24/2016 5:05 PM) Component Value Ref Range Sodium 145 137 - 147 MMOL/L Specimen Performing Laboratory [facility] [address] [place] [address] * CT HEAD WO CONTRAST (12/24/2016 4:33 PM) Specimen Performing Laboratory [facility] RAD RESULTS Impressions 1. Interval left frontal parenchymal hematoma evacuation and surgical drain placement with improved left to right frontal midline shift and left sided transalar herniation. 2. Slightly improved distention of the right lateral ventricle. 3. Persistent trace subarachnoid and intraventricular hemorrhage. Discussed with Dr. Cdoy at 5:00 PM 12/24/2016 Finalized by Ronnie Hoff M.D. on 12/24/2016 5:12 PM. Dictated by Ronnie Hoff M.D. on 12/24/2016 4:55 PM. Narrative EXAM: CT HEAD HISTORY: , Intracranial hemorrhage, status post evacuation, TECHNIQUE: Multiple contiguous axial images were obtained of the brain without intravenous contrast. COMPARISON: CT head December 24, 2016 FINDINGS: Dr. Ronnie Hoff M.D. has personally reviewed these images and formulated the interpretations and opinions expressed in this report. Interval left frontal kirit hole craniotomy and left frontal intraparenchymal hematoma evacuation with surgical drain placement. Surgical drain tip and fenestrations are projected posterior to the residual hematoma. There is expected mild postoperative pneumocephalus. Residual hemorrhage measures up to 5.1 cm in diameter (image 20 series 2). There is improved intracranial mass effect and giox-uv-fespd frontal midline shift now measuring 9 mm. There is improved left-sided transalar herniation. Mild intraventricular hemorrhage is noted in the occipital horns trace subarachnoid hemorrhage is again noted along the cerebellar vermis and within the interpeduncular fossa. Mild distention of the right lateral ventricle is slightly less apparent. Basal cisterns remain patent. No new intracranial hemorrhage is identified. Bilateral maxillary ORIF is noted. Procedure Note Interface, Radiant Results - 12/24/2016 5:15 PM CDT EXAM: CT HEAD HISTORY: , Intracranial hemorrhage, status post evacuation, TECHNIQUE: Multiple contiguous axial images were obtained of the brain without intravenous contrast. COMPARISON: CT head December 24, 2016 FINDINGS: Dr. Ronnie Hoff M.D. has personally reviewed these images and formulated the interpretations and opinions expressed in this report. Interval left frontal kirit hole craniotomy and left frontal intraparenchymal hematoma evacuation with surgical drain placement. Surgical drain tip and fenestrations are projected posterior to the residual hematoma. There is expected mild postoperative pneumocephalus. Residual hemorrhage measures up to 5.1 cm in diameter (image 20 series 2). There is improved intracranial mass effect and kfuz-gw-zgipp frontal midline shift now measuring 9 mm. There is improved left-sided transalar herniation. Mild intraventricular hemorrhage is noted in the occipital horns trace subarachnoid hemorrhage is again noted along the cerebellar vermis and within the interpeduncular fossa. Mild distention of the right lateral ventricle is slightly less apparent. Basal cisterns remain patent. No new intracranial hemorrhage is identified. Bilateral maxillary ORIF is noted. IMPRESSION 1. Interval left frontal parenchymal hematoma evacuation and surgical drain placement with improved left to right frontal midline shift and left sided transalar herniation. 2. Slightly improved distention of the right lateral ventricle. 3. Persistent trace subarachnoid and intraventricular hemorrhage. Discussed with Dr. Cody at 5:00 PM 12/24/2016 Finalized by Ronnie Hoff M.D. on 12/24/2016 5:12 PM. Dictated by Ronnie Hoff M.D. on 12/24/2016 4:55 PM. * OCCULT BLOOD NON COLON CANCER SCREEN (12/24/2016 2:28 PM) Component Value Ref Range Battery Name OCCULT BLOOD SCREEN Specimen Description FECES Special Requests NONE Occult Blood NEGATIVE Report Status FINAL 12/24/2016 Specimen Performing Laboratory Stool - Feces MAIN LAB [address] [place] [address] * PLAVIX RESISTANCE (PLATELETWORKS) (12/24/2016 1:35 PM) Component Value Ref Range Platelet Inhibition 40 (H) 0 - 15 % Comment: Normal ADP inhibition should be less than 15%. Therapeutic (Plavix and other P2Y 12) levels should be greater than 30%. Specimen Performing Laboratory [facility] [address] [place] [address] * SODIUM (12/24/2016 11:40 AM) Component Value Ref Range Sodium 147 137 - 147 MMOL/L Specimen Performing Laboratory Blood MAIN [facility] [address] [place] [address] * CHEST SINGLE VIEW (12/24/2016 4:35 AM) Specimen Performing Laboratory [facility] RESULTS Impressions Left basilar atelectasis. Approved by Manuel Shaw M.D. on 12/24/2016 11:12 AM By my electronic signature, I attest that I have personally reviewed the images for this examination and formulated the interpretations and opinions expressed in this report Finalized by Codi Cunningham M.D. on 12/24/2016 12:47 PM. Dictated by Manuel Shaw M.D. on 12/24/2016 11:10 AM. Narrative CHEST SINGLE VIEW History: Respiratory insufficiency, aspiration Comparison: Chest radiograph from December 22, 2016. Findings: Heart size and pulmonary vasculature are within normal limits. Left basilar atelectasis. No pleural effusion or pneumothorax. Procedure Note Interface, Radiant Results - 12/24/2016 12:50 PM CDT CHEST SINGLE VIEW History: Respiratory insufficiency, aspiration Comparison: Chest radiograph from December 22, 2016. Findings: Heart size and pulmonary vasculature are within normal limits. Left basilar atelectasis. No pleural effusion or pneumothorax. IMPRESSION Left basilar atelectasis. Approved by Manuel Shaw M.D. on 12/24/2016 11:12 AM By my electronic signature, I attest that I have personally reviewed the images for this examination and formulated the interpretations and opinions expressed in this report Finalized by Codi Cunningham M.D. on 12/24/2016 12:47 PM. Dictated by Manuel Shaw M.D. on 12/24/2016 11:10 AM. * IONIZED CALCIUM (12/24/2016 4:00 AM) Component Value Ref Range Ionized Calcium 1.11 1.0 - 1.3 MMOL/L Specimen Performing Laboratory Blood MAIN LAB [address] [place] [address] * PHOSPHORUS (12/24/2016 4:00 AM) Component Value Ref Range Phosphorus 2.3 2.0 - 4.0 MG/DL Specimen Performing Laboratory Blood MAIN LAB [address] [place], [place] [id number] * MAGNESIUM (12/24/2016 4:00 AM) Component Value Ref Range Magnesium 2.2 1.6 - 2.6 mg/dL Specimen Performing Laboratory Blood MAIN LAB [address] [place] [address] * CBC AND DIFF (12/24/2016 4:00 AM) Component Value Ref Range White Blood Cells 11.9 (H) 4.5 - 11.0 K/UL RBC 3.44 (L) 4.0 - 5.0 M/UL Hemoglobin 10.6 (L) 12.0 - 15.0 GM/DL Hematocrit 30.6 (L) 36 - 45 % MCV 89.1 80 - 100 FL MCH 30.7 26 - 34 PG MCHC 34.5 32.0 - 36.0 G/DL RDW 15.8 (H) 11 - 15 % Platelet Count 184 150 - 400 K/UL MPV 7.8 7 - 11 FL Neutrophils 82 (H) 41 - 77 % Lymphocytes 11 (L) 24 - 44 % Monocytes 6 4 - 12 % Eosinophils 0 0 - 5 % Basophils 1 0 - 2 % Absolute Neutrophil Count 9.80 (H) 1.8 - 7.0 K/UL Absolute Lymph Count 1.20 1.0 - 4.8 K/UL Absolute Monocyte Count 0.70 0 - 0.80 K/UL Absolute Eosinophil Count 0.00 0 - 0.45 K/UL Absolute Basophil Count 0.10 0 - 0.20 K/UL Specimen Performing Laboratory Blood MAIN LAB [address] [place] [address] * BASIC METABOLIC PANEL (12/24/2016 4:00 AM) Component Value Ref Range Sodium 144 137 - 147 MMOL/L Potassium 3.8 3.5 - 5.1 MMOL/L Chloride 114 (H) 98 - 110 MMOL/L CO2 23 21 - 30 MMOL/L Anion Gap 7 3 - 12 Glucose 144 (H) 70 - 100 MG/DL Blood Urea Nitrogen 12 7 - 25 MG/DL Creatinine 0.64 0.4 - 1.00 MG/DL Calcium 8.4 (L) 8.5 - 10.6 MG/DL eGFR Non >60 [...] Performing Laboratory [facility] [address] [place] [address] * CT HEAD WO CONTRAST (12/24/2016 3:29 AM) Specimen Performing Laboratory [facility] RESULTS Impressions 1.Stable large mixed attenuation left frontal intraparenchymal hematoma with unchanged intraventricular extension of blood products. 2.Stable associated rightward midline shift and left-sided transalar herniation. 3. Stable mild prominence of the right lateral ventricle which could be trapped. Finalized by Ronnie Hoff M.D. on 12/24/2016 9:13 AM. Dictated by Ronnie Hoff M.D. on 12/24/2016 9:07 AM. Narrative EXAM: CT HEAD HISTORY: , left frontal ICH, TECHNIQUE: Multiple contiguous axial images were obtained of the brain without intravenous contrast. COMPARISON: CT head December 23, 2016 FINDINGS: Dr. Ronnie Hoff M.D. has personally reviewed these images and formulated the interpretations and opinions expressed in this report. There is redemonstration of the large mixed density left frontal hemorrhage with interval extension into the frontal horn of the left lateral ventricle. The overall size of the intraparenchymal component is not significantly changed. There are stable mild intraventricular blood products within the occipital horns. There is stable mild prominence of the right lateral ventricle. There is no significant change in left-sided transalar herniation and gvso-fl-lgupo midline shift, measuring approximately 1.1 cm. There are retrospectively unchanged trace subarachnoid blood products along the superior cerebellar vermis. The basal cisterns are patent. There are no destructive osseous lesions. The perinasal sinuses and mastoid air cells are clear. Procedure Note Interface, Radiant Results - 12/24/2016 9:16 AM CDT EXAM: CT HEAD HISTORY: , left frontal ICH, TECHNIQUE: Multiple contiguous axial images were obtained of the brain without intravenous contrast. COMPARISON: CT head December 23, 2016 FINDINGS: Dr. Ronnie Hoff M.D. has personally reviewed these images and formulated the interpretations and opinions expressed in this report. There is redemonstration of the large mixed density left frontal hemorrhage with interval extension into the frontal horn of the left lateral ventricle. The overall size of the intraparenchymal component is not significantly changed. There are stable mild intraventricular blood products within the occipital horns. There is stable mild prominence of the right lateral ventricle. There is no significant change in left-sided transalar herniation and jalf-sa-gqcmc midline shift, measuring approximately 1.1 cm. There are retrospectively unchanged trace subarachnoid blood products along the superior cerebellar vermis. The basal cisterns are patent. There are no destructive osseous lesions. The perinasal sinuses and mastoid air cells are clear. IMPRESSION 1. Stable large mixed attenuation left frontal intraparenchymal hematoma with unchanged intraventricular extension of blood products. 2. Stable associated rightward midline shift and left-sided transalar herniation. 3. Stable mild prominence of the right lateral ventricle which could be trapped. Finalized by Ronnie Hoff M.D. on 12/24/2016 9:13 AM. Dictated by Ronnie Hoff M.D. on 12/24/2016 9:07 AM. * BLOOD TYPE CONFIRMATION - ORDER ONLY IF REQUESTED BY LAB (12/23/2016 9:57 PM) Component Value Ref Range ABO/RH(D) A POS Specimen Performing Laboratory Blood MAIN LAB [address] [place] [address] * SODIUM (12/23/2016 9:43 PM) Component Value Ref Range Sodium 142 137 - 147 MMOL/L Specimen Performing Laboratory Blood MAIN LAB [address] [place] [address] * TYPE & CROSSMATCH (12/23/2016 8:56 PM) Component Value Ref Range Units Ordered 2 Crossmatch Expires 12/26/2016 Record Check 2ND TYPE REQUIRED ABO/RH(D) A POS Antibody Screen NEG Specimen Performing Laboratory Blood MAIN LAB [address] [place] [address] * BLOOD GASES, ARTERIAL (12/23/2016 8:00 PM) Component Value Ref Range pH-Arterial 7.46 (H) 7.35 - 7.45 pCO2-Arterial 33 (L) 35 - 45 MMHG pO2-Arterial 75 (L) 80 - 100 MMHG Base Excess-Arterial 0.2 MMOL/L O2 Sat-Arterial 95.9 95 - 99 % Bxhryfktwyn-NMZ-Hhk 24.6 21 - 28 MMOL/L Specimen Performing Laboratory Blood, arterial - Blood [facility] [address] [place], [place] [id number] * POTASSIUM (12/23/2016 6:14 PM) Component Value Ref Range Potassium 4.4 3.5 - 5.1 MMOL/L Specimen Performing Laboratory Blood [facility] [address] [place] [address] * SODIUM (12/23/2016 4:05 PM) Component Value Ref Range Sodium 142 137 - 147 MMOL/L Specimen Performing Laboratory [facility] [address] [place], [place] [id number] * PLATELET FUNCTION-PFA (12/23/2016 2:53 PM) Component [...] in this report. Specimen Performing Laboratory Blood [facility] [address] [place], [place] [id number] * LIPID PROFILE (12/23/2016 1:43 PM) Component [...] Specimen Performing Laboratory [facility] [address] [place] [address] * POTASSIUM (12/23/2016 1:43 PM) Component Value Ref Range Potassium 3.8 3.5 - 5.1 MMOL/L Specimen Performing Laboratory [facility] [address] [place] [address] * MAGNESIUM (12/23/2016 1:43 PM) Component Value Ref Range Magnesium 2.4 1.6 - 2.6 mg/dL Specimen Performing Laboratory [facility] [address] [place] [address] * SODIUM (12/23/2016 1:43 PM) Component Value Ref Range Sodium 142 137 - 147 MMOL/L Specimen Performing Laboratory [facility] [address] [place] [address] * CT HEAD WO CONTRAST (12/23/2016 11:10 AM) Specimen Performing Laboratory [facility] RAD RESULTS Impressions 1.No significant change in size of the large left frontal mixed density hemorrhage with interval extension into the left lateral ventricle. 2.Slight decrease in kpzy-hq-kszmw midline shift. 3.Interval increase in size of the right lateral ventricle. These findings were discussed with Sharon Sosa with neurosurgery at 11:59 AM on 12/23/2016. By my electronic signature, I attest that I have personally reviewed the images for this examination and formulated the interpretations and opinions expressed in this report Finalized by ATTILA DICKERSON M.D. on 12/23/2016 12:00 PM. Dictated by Christian Carroll M.D. on 12/23/2016 11:43 AM. Narrative EXAM: CT HEAD HISTORY: , 24 hour for stabilty, TECHNIQUE: Multiple contiguous axial images were obtained of the brain without intravenous contrast. COMPARISON: None FINDINGS: Dr. ATTILA DICKERSON M.D. has personally reviewed these images and formulated the interpretations and opinions expressed in this report. There is redemonstration of a large mixed density left frontal hemorrhage with interval extension into the frontal horn of the left lateral ventricle. The overall size of the intraparenchymal component is not significant changed. There is increased blood products in the occipital horn of the right lateral ventricle. There has been increase in size of the right lateral ventricle since prior examination. There is been slight improvement in ahtw-za-atvbq midline shift, now measuring 10 mm compared to 13 mm previously. The basal cisterns are patent. There are no destructive osseous lesions. The perinasal sinuses and mastoid air cells are clear. Procedure Note Interface, Radiant Results - 12/23/2016 12:03 PM CDT EXAM: CT HEAD HISTORY: , 24 hour for stabilty, TECHNIQUE: Multiple contiguous axial images were obtained of the brain without intravenous contrast. COMPARISON: None FINDINGS: Dr. ATTILA DICKERSON M.D. has personally reviewed these images and formulated the interpretations and opinions expressed in this report. There is redemonstration of a large mixed density left frontal hemorrhage with interval extension into the frontal horn of the left lateral ventricle. The overall size of the intraparenchymal component is not significant changed. There is increased blood products in the occipital horn of the right lateral ventricle. There has been increase in size of the right lateral ventricle since prior examination. There is been slight improvement in vdsd-pp-iyglh midline shift, now measuring 10 mm compared to 13 mm previously. The basal cisterns are patent. There are no destructive osseous lesions. The perinasal sinuses and mastoid air cells are clear. IMPRESSION 1. No significant change in size of the large left frontal mixed density hemorrhage with interval extension into the left lateral ventricle. 2. Slight decrease in widt-rk-majty midline shift. 3. Interval increase in size of the right lateral ventricle. These findings were discussed with Sharon Sosa with neurosurgery at 11:59 AM on 12/23/2016. By my electronic signature, I attest that I have personally reviewed the images for this examination and formulated the interpretations and opinions expressed in this report Finalized by ATTILA DICKERSON M.D. on 12/23/2016 12:00 PM. Dictated by Christian Carroll M.D. on 12/23/2016 11:43 AM. * TEG WITH KAOLIN (12/23/2016 10:25 AM) Component Value Ref Range MA Kaolin 66.4 50.0 - 70.0 MM R Kaolin 4.3 3.0 - 9.0 MIN RK Kaolin 5.3 4.0 - 12.0 MIN K Kaolin 1.0 1.0 - 3.0 MIN Angle Kaolin 74.8 55 - 75 DEG Lysis30 0.9 0.0 - 8.0 % Specimen Performing Laboratory Blood [facility]FER[facility] * SODIUM (12/23/2016 10:25 AM) Component Value Ref Range Sodium 141 137 - 147 MMOL/L Specimen Performing Laboratory Blood MAIN LAB [address] [place] [address] * POTASSIUM (12/23/2016 8:16 AM) Component Value Ref Range Potassium 3.9 3.5 - 5.1 MMOL/L Specimen Performing Laboratory Blood MAIN LAB [address] [place] [address] * BLOOD GASES, ARTERIAL (12/23/2016 7:37 AM) Component Value Ref Range pH-Arterial 7.48 (H) 7.35 - 7.45 pCO2-Arterial 33 (L) 35 - 45 MMHG pO2-Arterial 71 (L) 80 - 100 MMHG Base Excess-Arterial 1.3 MMOL/L O2 Sat-Arterial 95.2 95 - 99 % Mwknxlnbnbv-SVC-Zts 25.5 21 - 28 MMOL/L Specimen Performing Laboratory Blood, arterial - Blood MAIN LAB [address] [place] [address] * IONIZED CALCIUM (12/23/2016 4:30 AM) Component Value Ref Range Ionized Calcium 1.11 1.0 - 1.3 MMOL/L Specimen Performing Laboratory Blood MAIN LAB [address] [place] [address] * PHOSPHORUS (12/23/2016 4:30 AM) Component Value Ref Range Phosphorus 3.6 2.0 - 4.0 MG/DL Specimen Performing Laboratory Blood MAIN LAB [address] [place], [place] [id number] * MAGNESIUM (12/23/2016 4:30 AM) Component Value Ref Range Magnesium 1.8 1.6 - 2.6 mg/dL Specimen Performing Laboratory Blood MAIN LAB [address] [place] [address] * CBC AND DIFF (12/23/2016 4:30 AM) Component Value Ref Range White Blood Cells 11.9 (H) 4.5 - 11.0 K/UL RBC 3.74 (L) 4.0 - 5.0 M/UL Hemoglobin 11.3 (L) 12.0 - 15.0 GM/DL Hematocrit 33.6 (L) 36 - 45 % MCV 89.9 80 - 100 FL MCH 30.3 26 - 34 PG MCHC 33.7 32.0 - 36.0 G/DL RDW 15.5 (H) 11 - 15 % Platelet Count 198 150 - 400 K/UL MPV 7.7 7 - 11 FL Neutrophils 89 (H) 41 - 77 % Lymphocytes 7 (L) 24 - 44 % Monocytes 4 4 - 12 % Eosinophils 0 0 - 5 % Basophils 0 0 - 2 % Absolute Neutrophil Count 10.50 (H) 1.8 - 7.0 K/UL Absolute Lymph Count 0.90 (L) 1.0 - 4.8 K/UL Absolute Monocyte Count 0.50 0 - 0.80 K/UL Absolute Eosinophil Count 0.00 0 - 0.45 K/UL Absolute Basophil Count 0.00 0 - 0.20 K/UL Specimen Performing Laboratory [facility] [address] [place] [address] * BASIC METABOLIC PANEL (12/23/2016 4:30 AM) Component Value Ref Range Sodium 141 137 - 147 MMOL/L Potassium 3.6 3.5 - 5.1 MMOL/L Chloride 106 98 - 110 MMOL/L CO2 24 21 - 30 MMOL/L Anion Gap 11 3 - 12 Glucose 148 (H) 70 - 100 MG/DL Blood Urea Nitrogen 11 7 - 25 MG/DL Creatinine 0.70 0.4 - 1.00 MG/DL Calcium 9.0 8.5 [...] Specimen Performing Laboratory [facility] [address] [place] [address] * HEMOGLOBIN A1C (12/23/2016 4:30 AM) Component Value Ref Range Hemoglobin A1C 5.2 4.0 - 6.0 % Comment: The ADA recommends that most patients with type 1 and type 2 diabetes maintain an A1c level <7%. Specimen Performing Laboratory [facility] [address] [place] [address] * BASIC METABOLIC PANEL (12/22/2016 11:14 PM) Component Value Ref Range Sodium 141 137 - 147 MMOL/L Potassium 3.8 3.5 - 5.1 MMOL/L Chloride 106 98 - 110 MMOL/L CO2 26 21 - 30 MMOL/L Anion Gap 9 3 - 12 Glucose 142 (H) 70 - 100 MG/DL Blood Urea Nitrogen 11 7 - 25 MG/DL Creatinine 0.69 0.4 - 1.00 MG/DL Calcium 9.1 8.5 [...] Performing Laboratory [facility] [address] [place] [address] * CT HEAD WO CONTRAST (12/22/2016 7:56 PM) Specimen Performing Laboratory [facility] RAD RESULTS Impressions 1. Redemonstration of a large left frontal intraparenchymal hemorrhage with slight increase in localized left to right midline shift. There is similar mass effect with compression of the ventricles and transalar herniation. 2. No new hemorrhage. Finalized by Ronnie Howe M.D. on 12/22/2016 8:18 PM. Dictated by Ronnie Howe M.D. on 12/22/2016 7:[address] head without contrast Clinical history: Decreased level of consciousness in the setting of left frontal intraparenchymal hemorrhage. Technique: Multiple contiguous axial images are obtained from skull base to the vertex without the administration of IV contrast. Coronal reformatted images are created from axial data. Findings: Comparison made with prior CTA head from December 22, 2016. There is redemonstration of a large left frontal lobe parenchymal hemorrhage, without significant change in size and configuration, measuring approximately 7.2 cm AP compared to 7.3 cm previously measured in similar fashion. There is persistent higher density hemorrhage along the anterior aspect of the hematoma. There is similar surrounding low density edema, greatest on the anterior inferior left frontal lobe. There is persistent mass affect on the lateral and third ventricles, greatest involving the left lateral ventricle. There is mild increase in left to right midline shift, now measuring approximately 1.4 cm compared to 1.2 cm previously. The ventricles are similar in size and configuration. Some minimal prominence of the right temporal horn is unchanged with no significant hydrocephalus is present. There is slight medial displacement of the left uncus but no gross uncal herniation. Some transalar herniation is redemonstrated. Some left cerebral sulcal effacement persists. Paranasal sinuses and mastoids are clear visualized portions. Procedure Note Interface, Radiant Results - 12/22/2016 8:[address] head without contrast Clinical history: Decreased level of consciousness in the setting of left frontal intraparenchymal hemorrhage. Technique: Multiple contiguous axial images are obtained from skull base to the vertex without the administration of IV contrast. Coronal reformatted images are created from axial data. Findings: Comparison made with prior CTA head from December 22, 2016. There is redemonstration of a large left frontal lobe parenchymal hemorrhage, without significant change in size and configuration, measuring approximately 7.2 cm AP compared to 7.3 cm previously measured in similar fashion. There is persistent higher density hemorrhage along the anterior aspect of the hematoma. There is similar surrounding low density edema, greatest on the anterior inferior left frontal lobe. There is persistent mass affect on the lateral and third ventricles, greatest involving the left lateral ventricle. There is mild increase in left to right midline shift, now measuring approximately 1.4 cm compared to 1.2 cm previously. The ventricles are similar in size and configuration. Some minimal prominence of the right temporal horn is unchanged with no significant hydrocephalus is present. There is slight medial displacement of the left uncus but no gross uncal herniation. Some transalar herniation is redemonstrated. Some left cerebral sulcal effacement persists. Paranasal sinuses and mastoids are clear visualized portions. IMPRESSION 1. Redemonstration of a large left frontal intraparenchymal hemorrhage with slight increase in localized left to right midline shift. There is similar mass effect with compression of the ventricles and transalar herniation. 2. No new hemorrhage. Finalized by Ronnie Howe M.D. on 12/22/2016 8:18 PM. Dictated by Ronnie Howe M.D. on 12/22/2016 7:59 PM. * CTA HEAD WO/W CONTR+POST PRO (12/22/2016 [...] There is continued localized mass effect and [id number] frontal midline shift and transalar herniation. The [...] There is continued localized mass effect and [id number] frontal midline shift and transalar herniation. The [...] Carroll M.D. on 12/22/2016 3:34 PM. * CT HEAD WO CONTRAST (12/22/2016 2:39 PM) Specimen Performing Laboratory [facility] RAD RESULTS Impressions 1.Motion limited examination without significant change in size in the large left frontal parenchymal hemorrhage. 2.Increase in density in the more posterior portion of the hematoma which may represent accumulation of acute blood products into an existing cavity. 3.Continued mass effect and [id number] midline shift, difficult to quantify due to patient motion. Approved by Christian Carroll M.D. on 12/22/2016 3:10 PM By my electronic signature, I attest that I have personally reviewed the images for this examination and formulated the interpretations and opinions expressed in this report Finalized by ATTILA DICKERSON M.D. on 12/22/2016 3:11 PM. Dictated by Christian Carroll M.D. on 12/22/2016 2:58 PM. Narrative EXAM: CT HEAD HISTORY: , IPH 6 hour stability, TECHNIQUE: Multiple contiguous axial images were obtained of the brain without intravenous contrast. COMPARISON: Outside CT from earlier same-day FINDINGS: Dr. ATTILA DICKERSON M.D. has personally reviewed these images and formulated the interpretations and opinions expressed in this report. This examination is limited by patient motion. There is redemonstration of the large left frontal intraparenchymal hemorrhage with a more hyperdense anterior component and lower density posterior component. The posterior component has slightly increased in density from prior examination. The overall size is not significantly changed. There is continued mass effect and hrrl-wl-[id number] midline shift. The degree of midline shift at the level of the ventricles is difficult to measure due to patient motion. The ventricles have not significantly changed in size. The mastoid air cells and visualized paranasal sinuses are well-aerated. Procedure Note Interface, Radiant Results - 12/22/2016 3:14 PM CDT EXAM: CT HEAD HISTORY: , IPH 6 hour stability, TECHNIQUE: Multiple contiguous axial images were obtained of the brain without intravenous contrast. COMPARISON: Outside CT from earlier same-day FINDINGS: Dr. ATTILA DICKERSON M.D. has personally reviewed these images and formulated the interpretations and opinions expressed in this report. This examination is limited by patient motion. There is redemonstration of the large left frontal intraparenchymal hemorrhage with a more hyperdense anterior component and lower density posterior component. The posterior component has slightly increased in density from prior examination. The overall size is not significantly changed. There is continued mass effect and [id number] midline shift. The degree of midline shift at the level of the ventricles is difficult to measure due to patient motion. The ventricles have not significantly changed in size. The mastoid air cells and visualized paranasal sinuses are well-aerated. IMPRESSION 1. Motion limited examination without significant change in size in the large left frontal parenchymal hemorrhage. 2. Increase in density in the more posterior portion of the hematoma which may represent accumulation of acute blood products into an existing cavity. 3. Continued mass effect and [id number] midline shift, difficult to quantify due to patient motion. Approved by Christian Carroll M.D. on 12/22/2016 3:10 PM By my electronic signature, I attest that I have personally reviewed the images for this examination and formulated the interpretations and opinions expressed in this report Finalized by ATTILA DICKERSON M.D. on 12/22/2016 3:11 PM. Dictated by Christian Carroll M.D. on 12/22/2016 2:58 PM. * BASIC METABOLIC PANEL (12/22/2016 1:45 PM) Component Value Ref Range Sodium 142 137 - 147 MMOL/L Potassium 4.5 3.5 - 5.1 MMOL/L Chloride 107 98 - 110 MMOL/L CO2 26 21 - 30 MMOL/L Anion Gap 9 3 - 12 Glucose 136 (H) 70 - 100 MG/DL Blood Urea Nitrogen 13 7 - 25 MG/DL Creatinine 0.68 0.4 - 1.00 MG/DL Calcium 8.2 (L) 8.5 - 10.6 MG/DL eGFR Non >60 [...] questions. Specimen Performing Laboratory [facility] [address] [place] [id number] * PTT (APTT) (12/22/2016 1:45 PM) Component Value Ref Range APTT 23.7 (L) 24.0 - 40.0 SEC Specimen Performing Laboratory [facility] [address] [place] [id number] * PROTIME INR (PT) (12/22/2016 1:45 PM) Component Value Ref Range INR 1.0 0.8 - 1.2 Specimen Performing Laboratory [facility] [address] [place] [id number] * CBC AND DIFF (12/22/2016 1:45 PM) Component Value Ref Range White Blood Cells 15.6 (H) 4.5 - 11.0 K/UL RBC 3.89 (L) 4.0 - 5.0 M/UL Hemoglobin 11.8 (L) 12.0 - 15.0 GM/DL Hematocrit 35.1 (L) 36 - 45 % MCV 90.3 80 - 100 FL MCH 30.3 26 - 34 PG MCHC 33.6 32.0 - 36.0 G/DL RDW 15.6 (H) 11 - 15 % Platelet Count 213 150 - 400 K/UL MPV 7.4 7 - 11 FL Neutrophils 89 (H) 41 - 77 % Lymphocytes 6 (L) 24 - 44 % Monocytes 5 4 - 12 % Eosinophils 0 0 - 5 % Basophils 0 0 - 2 % Absolute Neutrophil Count 14.00 (H) 1.8 - 7.0 K/UL Absolute Lymph Count 0.90 (L) 1.0 - 4.8 K/UL Absolute Monocyte Count 0.70 0 - 0.80 K/UL Absolute Eosinophil Count 0.00 0 - 0.45 K/UL Absolute Basophil Count 0.00 0 - 0.20 K/UL Specimen Performing Laboratory [facility] [address] [place] [address] * ABDOMEN AP ONLY (12/22/2016 7:08 AM) [...] and does not contain a result. * GENERAL RAD CHEST EXTERNAL IMAGING (08/04/2016 12:15 AM) Narrative This order has been auto finalized and does not contain a result. * CT HEAD EXTERNAL IMAGING (08/04/2016) Narrative This order has been auto finalized and does not contain a result. in this encounter Visit Diagnoses Diagnosis Dysphagia - Primary Dysphagia, unspecified Diagnosis unknown Other unknown and unspecified cause of morbidity or mortality Transient cerebral ischemia, unspecified type Nontraumatic cortical hemorrhage of left cerebral hemisphere (HCC) Chronic bilateral low back pain, with sciatica presence unspecified Intraparenchymal hemorrhage of brain (HCC) Intracerebral hemorrhage Hyperglycemia Other abnormal glucose Other specified transient cerebral ischemias Oropharyngeal dysphagia Dysphagia, oropharyngeal phase Dementia without behavioral disturbance, unspecified dementia type Chronic back pain Backache, unspecified in this encounter Admitting Diagnoses Diagnosis large left front hematoma Hemorrhagic stroke (HCC) Intraparenchymal hemorrhage of brain (HCC) - Hemorrhagic stroke (HCC) Intracerebral hemorrhage Dysphagia - Hemorrhagic stroke (HCC) Dysphagia, unspecified Dysphagia - Hemorrhagic stroke (HCC) Dysphagia, unspecified in this encounter Administered Medications Medication Order MAR Action Action Date Dose Rate Site acetaminophen (TYLENOL) oral solution Given 12/27/2016 650 mg 650 mg 03:32 CDT 650 mg, Per NG tube, EVERY 4 HOURS PRN, Starting Thu12/26/16 at 0953, Until Thu01/02/17 at 2118, Pain non-opioid: may be used alone or in combination with opioid analgesia, TOTAL ACETAMINOPHEN DOSE NOT TO EXCEED 4GM DAILY Given 12/28/2016 650 mg 17:40 CDT Given 12/30/2016 650 mg 01:08 CDT barium sulfate 40 % (VARIBAR HONEY) oral Given 01/05/2017 10 mL suspension 10 mL 14:30 CDT 10 mL, Oral, ONCE, 1 dose, 01/05/17 at 1430, GI Procedure Area Only barium sulfate 40 % (VARIBAR NECTAR) Given 01/05/2017 10 mL oral suspension 10 mL 14:30 CDT 10 mL, Oral, ONCE, 1 dose, 01/05/17 at 1430, GI Procedure Area Only barium sulfate 40 % (VARIBAR PUDDING) Given 01/05/2017 10 mL oral paste 10 mL 14:30 CDT 10 mL, Oral, ONCE, 1 dose, 01/05/17 at 1430, GI Procedure Area Only barium sulfate 40 % (VARIBAR THIN Given 01/05/2017 10 mL LIQUID) oral powder for suspension 10 mL 14:30 CDT 10 mL, Oral, ONCE, 1 dose, 01/05/17 at 1430, Mixing Instructions: 1. Gently shake the barium sulfate to loosen the powder. 2. Remove Cap. Add water to the 40% (w/v) line and replace the cap. 3. Invert bottle and tap with fingers to mix the powder into the water. 4. Shake vigorously for 30 seconds. Let stand for 5 minutes. 5. Suspension has hydrated and settled. Re-fill with water to the 40% line and replace cap. 6. Re-shake thoroughly. Product is now ready for use. bisacodyl (DULCOLAX) rectal suppository Given 01/03/2017 10 mg 10 mg 15:32 CDT 10 mg, Rectal, ONCE, 1 dose, 01/03/17 at 1315, Hold for loose stools calcium gluconate 1 g in sodium chloride Given - New 01/02/2017 1 g 110 mL/hr 0.9% (NS) 110 mL IVPB Bag 14:05 CDT 1 g, Intravenous, 110 mL, Administer over 1 Hours, NEEDED (DIRECTOR CAMP FROM RX), Starting Thu12/22/16 at 1615, Until Thu01/05/17 at 0803, Other..., For calcium replacement, see admin instructions, For ionized calcium < 1.0 mg/dl, administer calcium gluconate 1g IVPB to run over 1 hour. Recheck ionized calcium level 4 hours after completion of infusion. Notify physician if ionized calcium < 1.0 mg/dL. Each 1 gm delivers 4.6 mEq calcium ceFAZolin (ANCEF) IVP 1 g Given 12/24/2016 1 g 1 g, Intravenous, EVERY 8 HOURS, 3 18:26 CDT doses, First dose on Thu12/24/16 at 1745, Last dose on Thu12/25/16 at 0945, IV PUSH -- RECONSTITUTE each 1 g vial by adding 10 mL 0.9% NACL Given 12/25/2016 1 g 01:48 CDT Given 12/25/2016 1 g 08:45 CDT cefTRIAXone (ROCEPHIN) IVP 1 g Given 01/05/2017 1 g 1 g, Intravenous, EVERY 24 HOURS, 5 17:59 CDT doses, First dose on Thu01/05/17 at 1715, Last dose on Thu01/09/17 at 1715, INSTR: IV PUSH -- RECONSTITUTE EACH 1 GM WITH 10 MLS 0.9% NACL docusate (COLACE) oral solution 100 mg Given 01/01/2017 100 mg 100 mg, Per Corpak Tube, TWICE DAILY, 21:00 CDT First dose on Thu12/23/16 at 1030, Until Discontinued, Hold for loose stools Given 01/02/2017 100 mg 09:35 CDT Given 01/02/2017 100 mg 21:00 CDT docusate (COLACE) oral solution 100 mg Given 01/05/2017 100 mg 100 mg, PEG Tube, TWICE DAILY, First 08:51 CDT dose on 01/03/17 at 0900, Until Discontinued, Hold for loose stools Given 01/05/2017 100 mg 21:35 CDT Given 01/06/2017 100 mg 10:12 CDT doxazosin (CARDURA) tablet 2 mg Given 12/31/2016 2 mg 2 mg, Per NG tube, DAILY, First dose on 09:47 CDT 12/28/16 at 1000, Until Discontinued Given 01/01/2017 2 mg 08:26 CDT Given 01/02/2017 2 mg 09:35 CDT doxazosin (CARDURA) tablet 2 mg Given 01/04/2017 2 mg 2 mg, PEG Tube, DAILY, First dose on Sat 09:19 CDT 01/03/17 at 0900, Until Discontinued Given 01/05/2017 2 mg 08:52 CDT Given 01/06/2017 2 mg 10:12 CDT fentaNYL citrate PF (SUBLIMAZE) Given 12/28/2016 25 mcg injection 25-50 mcg 18:25 CDT 25-50 mcg, Intravenous, EVERY 1 HOUR PRN, Starting Thu12/22/16 at 1257, Until Thu12/30/16 at 1152, Pain Injectable Given 12/28/2016 25 mcg 18:51 CDT Given 12/30/2016 25 mcg 02:12 CDT fentaNYL citrate PF (SUBLIMAZE) Given 12/29/2016 25 mcg injection 50 mcg 10:05 CDT 50 mcg, Intravenous, ONCE, 1 dose, Thu12/29/16 at 1000 gadobenate dimeglumine (MULTIHANCE) Given 12/28/2016 11 mL injection 11 mL 19:00 CDT 11 mL, Intravenous, ONCE, 1 dose, 12/28/16 at 1900, NOTE: This is a HIGH ALERT Medication. heparin (porcine) PF syringe 5,000 Units Given 12/30/2016 5,000 Units Abdomen:LLQ 5,000 Units, Subcutaneous, EVERY 8 06:34 CDT HOURS, First dose on Tu12/30/16 at 0600, Until Discontinued, NOTE: This is a HIGH ALERT Medication. Given 12/30/2016 5,000 Units Abdomen:RLQ 14:05 CDT Given 12/30/2016 5,000 Units Abdomen:LLQ 22:38 CDT heparin (porcine) PF syringe 5,000 Units Given 01/01/2017 5,000 Units Abdomen:LLQ 5,000 Units, Subcutaneous, EVERY 8 06:26 CDT HOURS, 4 doses, First dose on Thu12/31/16 at 2200, Last dose on Thu01/01/17 at 2200, NOTE: This is a HIGH ALERT Medication. Given 01/01/2017 5,000 Units Abdomen:RLQ 15:13 CDT Given 01/01/2017 5,000 Units Abdomen:RLQ 22:00 CDT heparin (porcine) PF syringe 5,000 Units Given 01/05/2017 5,000 Units Abdominal 5,000 Units, Subcutaneous, EVERY 8 21:36 CDT Tissue HOURS, First dose on 01/03/17 at 1200, Until Discontinued, NOTE: This is a HIGH ALERT Medication. Given 01/06/2017 5,000 Units Abdominal 03:20 CDT Tissue Given 01/06/2017 5,000 Units Abdomen:RLQ 12:36 CDT hydrALAZINE (APRESOLINE) injection 10 mg Given 12/24/2016 10 mg 10 mg, Intravenous, EVERY 6 HOURS PRN, 18:27 CDT Starting 12/22/16 at 1257, Until Thu12/24/16 at 1907, Systolic Blood Pressure..., >140 mmHg or MAP >110 mmHg hydrALAZINE (APRESOLINE) injection 10 mg Given 12/25/2016 10 mg 10 mg, Intravenous, EVERY 6 HOURS PRN, 19:27 CDT Starting Thu12/24/16 at 1905, Until Thu12/26/16 at 0021, Systolic Blood Pressure..., >150 mmHg or MAP >110 mmHg hydrALAZINE (APRESOLINE) injection 10-20 Given 12/26/2016 10 mg mg 04:48 CDT 10-20 mg, Intravenous, EVERY 6 HOURS PRN, Starting Thu12/26/16 at 0021, Until Thu01/05/17 at 0803, Systolic Blood Pressure..., >150 mmHg or MAP >110 mmHg HYDROcodone/acetaminophen (NORCO) 5/325 Given 01/04/2017 2 tablets mg tablet 1-2 Tab 17:57 CDT 1-2 tablet, Oral, EVERY 4 HOURS PRN, Starting Thu12/22/16 at 1257, Until Thu01/06/17 at 1559, Pain PO, TOTAL ACETAMINOPHEN DOSE NOT TO EXCEED 4GM DAILY NOTE: This is a HIGH ALERT Medication. insulin aspart (NOVOLOG FLEXPEN) Given 01/06/2017 1 Units Abdominal injection PEN 0-14 Units 03:00 CDT Tissue 0-14 Units, Subcutaneous, FIVE TIMES DAILY, First dose on Thu01/04/17 at 1700, Until Discontinued, -POC glucose 140-180mg/dL at administer 1 unit insulin, at , 03* administer 0 units. -POC glucose 181-220mg/dL at administer 2 units insulin, at , * administer 1 unit. -POC glucose 221-260mg/dL at administer 3 units insulin, at , 03* administer 2 units. -POC glucose 261-300mg/dL at administer 4 units insulin, at , 03* administer 3 units. -POC glucose 301-350mg/dL at administer 5 units insulin, at , 03* administer 4 units. -POC glucose 351-400mg/dL at administer 6 units insulin, at , 03* administer 5 units. -POC glucose >400mg/dL at administer 7 units insulin, at , 03* administer 6 units. *only if ordered 5x's daily For POCT glucose >350mg/dL give correction bolus and recheck POCT glucose in 2 hours. If POCT glucose at 2 hours >300mg/dL call physician for further orders. For patients who are not eating meals, continue to administer the appropriate correction factor. NOTE: This is a HIGH ALERT Medication. Given 01/06/2017 3 Units Arm, Left 10:15 CDT Given 01/06/2017 1 Units Arm, Right 12:37 CDT insulin aspart (NOVOLOG FLEXPEN) Given 01/04/2017 1 Units Abdomen:RLQ injection PEN 0-7 Units 04:10 CDT 0-7 Units, Subcutaneous, FIVE TIMES DAILY, First dose on 12/27/16 at 1700, Until Discontinued, -POC glucose 140-180mg/dL at , , administer 1 unit insulin, at 21, 03* administer 0 units. -POC glucose 181-220mg/dL at , , administer 2 units insulin, at , 03* administer 1 unit. -POC glucose 221-260mg/dL at , , administer 3 units insulin, at , 03* administer 2 units. -POC glucose 261-300mg/dL at , , administer 4 units insulin, at , 03* administer 3 units. -POC glucose 301-350mg/dL at , , administer 5 units insulin, at , 03* administer 4 units. -POC glucose 351-400mg/dL at , , administer 6 units insulin, at , 03* administer 5 units. -POC glucose >400mg/dL at , , administer 7 units insulin, at , 03* administer 6 units. *only if ordered 5x's daily For POCT glucose >350mg/dL give correction bolus and recheck POCT glucose in 2 hours. If POCT glucose at 2 hours >300mg/dL call physician for further orders. For patients who are not eating meals, continue to administer the appropriate correction factor. NOTE: This is a HIGH ALERT Medication. Given 01/04/2017 3 Units Abdomen:RLQ 07:58 CDT Given 01/04/2017 4 Units Abdomen:LLQ 12:44 CDT iopamidol 300 (ISOVUE-300) injection 110 Given 12/29/2016 110 mL mL 11:11 CDT 110 mL, Intra-arterial, ONCE, 1 dose, 12/29/16 at 1115, NOTE: This is a HIGH ALERT Medication. iopamidol 370 (ISOVUE-370) injection 60 Given 12/22/2016 60 mL mL 15:30 CDT 60 mL, Intravenous, ONCE, 1 dose, 12/22/16 at 1530, NOTE: This is a HIGH ALERT Medication. iopamidol 370 (ISOVUE-370) injection 60 Given 12/28/2016 60 mL mL 11:30 CDT 60 mL, Intravenous, ONCE, 1 dose, [place] 12/28/16 at 1130, NOTE: This is a HIGH ALERT Medication. labetalol (NORMODYNE) injection 10-20 mg Given 12/23/2016 10 mg 10-20 mg, Intravenous, EVERY 15 MIN PRN, 18:17 CDT Starting 12/22/16 at 1257, Until Thu12/24/16 at 1907, Other..., For SBP > 140 mmHg or MAP > 110 mmHg, Hold for HR < 60/min and/or MAP < 110 mmHg or SBP < 160 mmHg. Given 12/24/2016 20 mg 18:08 CDT labetalol (NORMODYNE) injection 10-20 mg Given 12/24/2016 20 mg 10-20 mg, Intravenous, EVERY 15 MIN PRN, 19:54 CDT Starting Thu12/24/16 at 1905, Until [place] 12/25/16 at 1313, Other..., For SBP > 150 mmHg or MAP > 110 mmHg, Hold for HR < 60/min and/or MAP < 110 mmHg or SBP < 160 mmHg. Given 12/25/2016 20 mg 12:50 CDT lactated ringers infusion Given - New 12/31/2016 1,000 mL 20 mL/hr 1,000 mL, 1,000 mL, Intravenous, at 20 Bag 17:05 CDT mL/hr, CONTINUOUS, Starting Thu12/31/16 at 1730, Until Thu12/31/16 at 1926, Pre-Op lactated ringers infusion Given - New 01/02/2017 1,000 mL 20 mL/hr 1,000 mL, 1,000 mL, Intravenous, at 20 Bag 16:59 CDT mL/hr, CONTINUOUS, Starting Thu01/02/17 at 1630, Until 01/03/17 at 1330, Pre-Op Given - New Bag 01/02/2017 17:11 CDT Given - New Bag 01/02/2017 1,000 mL 20 mL/hr 22:00 CDT levETIRAcetam (KEPPRA) 500 mg in sodium Given - New 12/23/2016 500 mg 400 mL/hr chloride 0.9% (NS) 100 mL IVPB Bag 09:31 CDT 500 mg, 100 mL, Administer over 15 Minutes, Intravenous, TWICE DAILY, First dose on Thu12/22/16 at 1515, Until Discontinued Given - New Bag 12/23/2016 500 mg 400 mL/hr 21:00 CDT Given - New Bag 12/24/2016 500 mg 400 mL/hr 09:07 CDT levETIRAcetam (KEPPRA) oral solution 500 Given 01/01/2017 500 mg mg 21:00 CDT 500 mg, Per Corpak Tube, TWICE DAILY, First dose on Thu12/24/16 at 2100, Until Discontinued Given 01/02/2017 500 mg 09:35 CDT Given 01/02/2017 500 mg 21:01 CDT levETIRAcetam (KEPPRA) oral solution 500 Given 01/05/2017 500 mg mg 08:51 CDT 500 mg, PEG Tube, TWICE DAILY, First dose on Thu01/03/17 at 0900, Until Discontinued Given 01/05/2017 500 mg 21:35 CDT Given 01/06/2017 500 mg 10:12 CDT magnesium sulfate 1 g/D5W 100 mL IVPB Given - New 12/23/2016 1 g 100 mL/hr 1 g, Intravenous, 100 mL, Administer Bag 08:03 CDT over 1 Hours, NEEDED, Starting Thu12/22/16 at 1615, Until Thu01/05/17 at 0803, Other..., magnesium replacement (see Admin Instructions), If urine output < 30 mL/hr or SCr >2 mg/dL, check with physician prior to giving magnesium replacement. - For Serum Magnesium > 2.1 mg/dL, No replacement necessary. - For Serum Magnesium 1.8 - 2.0 mg/dL, give Magnesium Sulfate 2 grams IV over 2 hours. - For Serum Magnesium 1.6 - 1.7 mg/dL, give Magnesium Sulfate 3 grams IV over 3 hours. - For Serum Magnesium 1.3 - 1.5 mg/dL, give Magnesium Sulfate 4 grams IV over 4 hours. - For Serum Magnesium <=1.2 mg/dL, give Magnesium Sulfate 6 grams IV over 6 hours AND notify physician. Recheck serum magnesium level 4 hours after completion of appropriate replacement dose. Repeat this standing order x 1. Notify physician if serum magnesium < 2.1 mg/dL after two replacements. Infuse each 1gm Magnesium sulfate over 1 hour. Each 1 gm delivers 8.1 mEq Magnesium. Given - New Bag 12/28/2016 1 g 100 mL/hr 06:00 CDT Given - New Bag 12/28/2016 1 g 100 mL/hr 08:53 CDT midazolam (VERSED) injection 1 mg Given 12/29/2016 0.5 mg 1 mg, Intravenous, ONCE, 1 dose, Mon 10:05 CDT 12/29/16 at 1000 milk of magnesia (CONC) oral suspension Given 12/31/2016 10 mL 10 mL 09:46 CDT 10 mL, Per Corpak Tube, DAILY, First dose on Thu12/24/16 at 0900, Until Discontinued, May hold if BM within 24 hours of dose. 10 mL CONC=30 mL MOM Given 01/01/2017 10 mL 08:26 CDT Given 01/02/2017 10 mL 09:35 CDT milk of magnesia (CONC) oral suspension Given 01/03/2017 10 mL 10 mL 08:33 CDT 10 mL, PEG Tube, DAILY, First dose on Thu01/03/17 at 0900, Until Discontinued, May hold if BM within 24 hours of dose. 10 mL CONC=30 mL MOM Given 01/05/2017 10 mL 08:51 CDT ondansetron (ZOFRAN) injection 4 mg Given 12/30/2016 4 mg 4 mg, Intravenous, EVERY 6 HOURS PRN, 00:14 CDT Starting Thu12/22/16 at 1257, Until Thu01/06/17 at 1559, Nausea/Vomiting Injectable potassium chloride oral solution 40 mEq Given 12/31/2016 40 mEq 40 mEq, Per NG tube, NEEDED, Starting 06:42 CDT 12/22/16 at 1615, Until Thu01/05/17 at 0803, Other..., For potassium replacement, See admin instructions, If urine output < 30 mL/hr or SCr >2 mg/dL, check with physician prior to giving K+ replacement. - K 3-4 mmol/L, administer KCl 40 mEq PO/NG x1 dose OR 40mEq IV over 4 hours, PO/NG option preferred - K < 3 mmol/L, administer KCl 40 mEq IV over 4 hours AND 40 mEq PO/NG x1 dose AND notify physician. Recheck serum potassium two hours after completion of appropriate replacement dose. Repeat this standing order x 2. Notify physician if serum potassium < 3.3 mmol/L after three replacements. Do NOT break or crush tablet Given 01/01/2017 40 mEq 06:47 CDT Given 01/03/2017 40 mEq 12:22 CDT potassium chloride oral solution 60 mEq Given 12/26/2016 60 mEq 60 mEq, Per NG tube, ONCE, 1 dose, Thu 18:11 CDT 12/26/16 at 1730 potassium phosphate 20 mmol in dextrose Given - New 12/27/2016 20 mmol 83.3 mL/hr 5% (D5W) 500 mL IVPB (std) Bag 06:47 CDT 20 mmol, Intravenous, 500 mL, Administer over 6 Hours, ONCE, 1 dose, 12/27/16 at 0600, Each 10mM K Phos delivers 14.7meq K+ NOTE: This is a HIGH ALERT Medication. senna/docusate (SENOKOT-S) solution 10 Given 01/01/2017 10 mL mL 21:00 CDT 10 mL, Per Corpak Tube, TWICE DAILY, First dose on Tu12/23/16 at 1030, Until Discontinued, Hold for loose stools. Note: 10 mL is equivalent to 1 senna/docusate tablet Given 01/02/2017 10 mL 09:35 CDT Given 01/02/2017 10 mL 21:01 CDT senna/docusate (SENOKOT-S) solution 10 Given 01/05/2017 10 mL mL 08:51 CDT 10 mL, PEG Tube, TWICE DAILY, First dose on 01/03/17 at 0900, Until Discontinued, Hold for loose stools. Note: 10 mL is equivalent to 1 senna/docusate tablet Given 01/05/2017 10 mL 21:35 CDT Given 01/06/2017 10 mL 10:11 CDT sodium chloride 0.45 % infusion Given - New 01/05/2017 500 mL 1,000 mL, 500 mL, Intravenous, BOLUS, 1 Bag 08:18 CDT dose, 01/05/17 at 0815 sodium chloride 2 % infusion Dose/Rate 12/23/2016 75 mL/hr 500 mL, Intravenous, at 75 mL/hr, Change 20:30 CDT CONTINUOUS, Starting Tue 8/17 at 0045, Until Thu12/24/16 at 1023, NOTE: HYPERTONIC SALINE 2% Use Restricted to Critical Care Units and Neuro Science Step Down Unit ONLY Delivers: Sodium 342 mEq/L, [id number] mOsm/L. NOTE: This is a HIGH ALERT Medication. Given - New Bag 12/23/2016 75 mL/hr 21:00 CDT Given - New Bag 12/24/2016 75 mL/hr 04:00 CDT sodium chloride 0.9 % infusion Given - 12/22/2016 1,000 mL 50 mL/ hr 1,000 mL, 1,000 mL, Intravenous, at 50 Bag 14:22 CDT mL/hr, CONTINUOUS, Starting Thu12/22/16 at 1300, Until Thu12/23/16 at 0040 sodium chloride 0.9 % infusion Given - 01/02/2017 500 mL 500 mL, 500 mL, Intravenous, BOLUS, 1 Bag 12:40 CDT dose, Thu01/02/17 at 1145 SODIUM CHLORIDE 0.9 % IR SOLN (Cabinet Given 01/05/2017 Override) 07:00 CDT NOW, 1 dose, Thu01/05/17 at 0645, Created by cabinet override SODIUM CHLORIDE 0.9 % IV SOLP (Cabinet Given - 12/23/2016 250 mL Override) Bag 09:30 CDT NOW, 1 dose, Thu12/23/16 at 0930, Created by cabinet override sodium chloride PF 0.9% injection 50 mL Given 12/22/2016 50 mL 50 mL, Intravenous, ONCE, 1 dose, Mon 15:30 CDT 12/22/16 at 1530, Intra-procedure (IR) sodium chloride PF 0.9% injection 50 mL Given 12/28/2016 50 mL 50 mL, Intravenous, ONCE, 1 dose, Sun 11:30 CDT 12/28/16 at 1130, Intra-procedure (IR) sodium chloride(#) inj for po solution Given 12/23/2016 17 mEq 17 mEq 21:00 CDT 17 mEq, Per NG tube, THREE TIMES DAILY, First dose on Thu12/23/16 at 1800, Until Discontinued sodium chloride(#) inj for po solution Given 12/31/2016 17 mEq 17 mEq 20:48 CDT 17 mEq, Per NG tube, THREE TIMES DAILY, First dose on Thu12/31/16 at 1500, Until Discontinued Given 01/01/2017 17 mEq 08:27 CDT sodium chloride(#) inj for po solution Given 12/30/2016 34 mEq 34 mEq 14:05 CDT 34 mEq, Per NG tube, THREE TIMES DAILY, First dose on Thu12/24/16 at 0900, Until Discontinued Given 12/30/2016 34 mEq 20:24 CDT Given 12/31/2016 34 mEq 09:48 CDT sodium mixed salt 2% infusion (NaCl 1%, Given - New 12/28/2016 50 mL/hr Na Acetate 1%) Bag 16:48 CDT 500 mL, Intravenous, at 20 mL/hr, CONTINUOUS, Starting Thu12/24/16 at 1030, Until Thu12/29/16 at 0823, NOTE: HYPERTONIC SODIUM Use Restricted to ED, Critical Care Units, and Progressive Care Units ONLY Sodium mixed salt 2% infusion (NaCl 1%, Na Acetate 1%) delivers 586 mOsm/ Liter as: Sodium: 293 mEq/ Liter Chloride: 171 mEq/ Liter Acetate: 122 mEq/ Liter NOTE: This is a HIGH ALERT Medication. Dose/Rate Change 12/28/2016 40 mL/hr 18:31 CDT Dose/Rate Change 12/28/2016 20 mL/hr 19:54 CDT in this encounter
--- OUTSIDE RECORDS SUMMARY | 2017-03-03 06:07 | XMS REPORT | Encounter Summary ---
Author Author [facility] Organization [facility] Address Unknown Phone Unavailable Care Team Providers Care Manager Metal Name Role Phone PCP Unavailable Encounter Details Date Type Department Care Team Description 01/02/2017 Procedure Pass Main Operating Room [address] [place] [address] Social History Tobacco Use Types Packs/Day Years Used Date Never Smoker Smokeless Tobacco: Never Used Alcohol Use Drinks/Week oz/Week Comments No Sex Assigned at Date Recorded Not on file as of this encounter Functional Status Functional Status Response Date of Assessment Does the patient have a hearing impairment: No 12/24/2016 as of this encounter Plan of Treatment Not on fileas of this encounter Visit Diagnoses Not on filein this encounter
--- OUTSIDE RECORDS SUMMARY | 2017-03-03 06:10 | XMS REPORT | Encounter Summary ---
Author Author [facility] Organization [facility] Address Unknown Phone Unavailable Care Team Providers Care Scaffolder Name Role Phone PCP Unavailable Encounter Details Date Type Department Care Team Description 12/28/2016 Procedure Pass [facility] [address] [place] [address] Social History Tobacco Use Types [...]
--- OUTSIDE RECORDS SUMMARY | 2017-03-03 06:10 | XMS REPORT | Encounter Summary ---
Author Author [facility] Organization [facility] Address Unknown Phone Unavailable Care Team Providers Care Theater Education Teacher Name Role Phone PCP Unavailable Encounter Details Date Type Department Care Team Description 12/25/2016 Procedure Pass [facility] [address] [place] [address] Social History Tobacco Use Types [...]
--- OUTSIDE RECORDS SUMMARY | 2017-03-03 06:10 | XMS REPORT | Encounter Summary ---
Author Author [facility] Organization [facility] Address Unknown Phone Unavailable Care Team Providers Care Geodetic Survey Director Name Role Phone PCP Unavailable Reason for Visit * Auth/Cert Status Reason Specialty Diagnoses / Referred By Referred To Procedures Contact Contact Diagnoses large left front hematoma Hemorrhagic stroke (HCC) Encounter Details Date Type Department Care Team Description 12/31/2016 Anesthesia Main Operating Room Neyda Salguero CRNA [address] [facility] [address] [place] [address] [address] [place], [place] [id number] Social History Tobacco Use Types Packs/Day Years [...]
--- OUTSIDE RECORDS SUMMARY | 2017-03-03 06:10 | XMS REPORT | Encounter Summary ---
Author Author [facility] Organization [facility] Address Unknown Phone Unavailable Care Team Providers Care Calibration Technician Name Role Phone PCP Unavailable Encounter Details Date Type Department Care Team Description 12/31/2016 Procedure Pass Main Operating Room [address] [place] [address] Social History Tobacco Use Types [...]
--- OUTSIDE RECORDS SUMMARY | 2017-03-03 06:10 | XMS REPORT | Encounter Summary ---
Author Author [facility] Organization [facility] Address Unknown Phone Unavailable Care Team Providers Care Lna Name Role Phone PCP Unavailable Encounter Details Date Type Department Care Team Description 12/24/2016 Procedure Pass [facility] [address] [place] [address] Social History Tobacco Use Types [...]
--- OUTSIDE RECORDS SUMMARY | 2017-03-03 06:10 | XMS REPORT | Encounter Summary ---
Author Author [facility] Organization [facility] Address Unknown Phone Unavailable Care Team Providers Care Senior Java Programmer Analyst Name Role Phone PCP Unavailable Reason for Visit * Auth/Cert Status Reason Specialty Diagnoses / Referred By Referred To Procedures Contact Contact Diagnoses large left front hematoma Hemorrhagic stroke (HCC) Encounter Details Date Type Department Care Team Description 12/24/2016 Anesthesia Main Operating Room Abby Onofre, [facility] [address] [place] [address] Social History Tobacco Use Types Packs/Day Years Used Date Never Smoker Smokeless Tobacco: Never Used Alcohol Use Drinks/Week oz/Week Comments No Sex Assigned at Date Recorded Not on file as of this encounter Functional Status Functional Status Response Date of Assessment Does the patient have a hearing impairment: No 12/24/2016 as of this encounter OR Notes * Anesthesia Postprocedure Evaluation - Lyudmila Buckley CRNA - 12/24/2016 4:51 PM CDT Post-Anesthesia Evaluation Name: Roxy Phillip : 1950 Age: 66 y.o. Sex: female Procedure Date: 12/24/2016 Procedure: Procedure(s): CRANIOTOMY EVACUATION HEMATOMA supine microscope, brainlab, tube system Surgeon: Surgeon(s): MD Suman Hagen MD Post-Anesthesia Vitals BP: 150/76 (12/24 1299) Temp: 36.9 C (98.5 F) (12/24 0800) Pulse: 93 (12/24 1299) Respirations: 31 PER MINUTE (12/24 1299) SpO2: 97 % (12/24 1299) O2 Delivery: None (Room Air) (12/24 1299) SpO2 Pulse: 93 (12/24 1299) Post Anesthesia Evaluation Note Evaluation location: ICU Patient participation: recovered; patient unable to participate at baseline Level of consciousness: obtunded/minimal responses Pain score: 0 Pain management: adequate Temperature: 36.0C - 38.4C Airway patency: adequate Perioperative Events Postoperative Status Cardiovascular status: hemodynamically stable Respiratory status: spontaneous ventilation Additional comments: Ventilator settings: N/A Vasoactive Drips: N/A Blood products/Hemostatic Agents/Anticoagulants: N/A Special Considerations: NSICU patient. Patient was transported with supplemental oxygen and routine cardiovascular monitoring, including pulse oximetry. Individuals present during transport include Dr Viridiana Franco and Dr Aung Edwards . The patient was admitted to the ICU under care of the critical care team. This information was communicated between anesthesia and the receiving team. * Anesthesia Procedure Notes - Alan Bolanos MD - 12/24/2016 2:33 PM CDT Associated Order(s): ANESTHESIA ARTERIAL LINE INSERTION Anesthesia Procedure: Arterial Line Placement A-LINE INSERTION Date/Time: 12/24/2016 2:33 PM Patient location: OR Indications: hemodynamic monitoring Preprocedure checklist performed: 2 patient identifiers, risks & benefits discussed, patient evaluated, timeout performed, consent obtained, patient being monitored and sterile drape Sterile technique: - Proper hand washing - Cap, mask - Sterile gloves - Skin prep for antisepsis Arterial Line Procedure Patient sedated: yes (see MAR) Sedation type: general; Artery prepped with alcohol swabs; skin prep agent completely dried prior to procedure. Location: radial artery Laterality: left Technique: palpation Needle gauge: 20 G Number of attempts: 1 Procedure Outcome Catheter secured with adhesive dressing applied Events: skin intact, warm, and dry Observation: pt tolerated well * Anesthesia Preprocedure Evaluation - Elizabeth Carbone CRNA - 12/24/2016 1:07 PM CDT Formatting of this note may be different from the original. Anesthesia Pre-Procedure Evaluation Name: Roxy Phillip : 1950 Age: 66 y.o. Sex: female Procedure Date: 12/24/2016 Procedure: Procedure(s): CRANIOTOMY EVACUATION HEMATOMA supine microscope, brainlab, tube system Physical Assessment Vital Signs (last filed in past 24 hours): BP: 148/73 (12/24 1099) Temp: 36.9 C (98.5 F) (12/25 0700) Pulse: 91 (12/24 1099) Respirations: 26 PER MINUTE (12/24 1099) SpO2: 97 % (12/24 1099) O2 Delivery: None (Room Air) (12/24 1099) Weight: 55.4 kg (122 lb 2.2 oz) (12/24 0400) Patient History Allergies Allergen Reactions Penicillins UNKNOWN Current Medications Medication Directions aspirin EC 81 mg tablet Take 81 mg by mouth daily. Take with food. clopiDOGrel (PLAVIX) 75 mg tablet Take 75 mg by mouth daily. duloxetine DR (CYMBALTA) 30 mg capsule Take 30 mg by mouth daily. HYDROcodone/acetaminophen(+) (NORCO) 10/325 mg tablet Take 1 Tab by mouth every 6 hours as needed for Pain Review of Systems/Medical History Patient summary reviewed Nursing notes reviewed Pertinent labs reviewed PONV Screening: Female gender, Postoperative opioids and Non-smoker No history of anesthetic complications No family history of anesthetic complications Airway H/o jaw surgery to correct severe overbite in late 80s/early 90s per daughter Cardiovascular Beta Kimmie therapy: No Beta blockers within 24 hours: No Hypertension ( undiagnosed HTN, pt does not take medications.), poorly controlled Hyperlipidemia GI/Hepatic/Renal GERD ( takes omeprazole per daughter), Vomiting (per pt vomited at home periodically over the past few days in relation to mental status change./ICP) Neuro/Psych Hx TIA CVA ( ) Dementia CT head: 1. Stable large mixed attenuation left frontal intraparenchymal hematoma with unchanged intraventricular extension of blood products. 2. Stable associated rightward midline shift and left-sided transalar herniation. 3. Stable mild prominence of the right lateral ventricle which could be trapped Musculoskeletal Back pain ( Takes hydrocodone q6h for back pain) Arthritis Endocrine/Other Diabetes (was previously on sitagliptin/metformin, apparently no longer takes per out of hospital records.), type 2 Physical Exam Airway Findings TM distance: >3 FB Airway patency: adequate Comments: unable to assess airway, pt does not follow commands. Dental Findings: Increased risk for dental injury; pt advised Comments: Multiple missing, poor dentition. Difficult to assess. Cardiovascular Findings: Rhythm: regular Rate: normal Pulmonary Findings: Negative Comments: tachypnea Abdominal Findings: Negative Neurological Findings: Altered mental status Diagnostic Tests Hematology: Lab Results Component Value Date HGB 10.6 12/24/2016 HCT 30.6 12/24/2016 PLTCT 184 12/24/2016 WBC 11.9 12/24/2016 NEUT 82 12/24/2016 ANC 9.80 12/24/2016 ALC 1.20 12/24/2016 ANNE 6 12/24/2016 AMC 0.70 12/24/2016 EOSA 0 12/24/2016 ABC 0.10 12/24/2016 MCV 89.1 12/24/2016 MCH 30.7 12/24/2016 MCHC 34.5 12/24/2016 MPV 7.8 12/24/2016 RDW 15.8 12/24/2016 General Chemistry: Lab Results Component Value Date NA 147 12/24/2016 K 3.8 12/24/2016 CL 114 12/24/2016 CO2 23 12/24/2016 GAP 7 12/24/2016 BUN 12 12/24/2016 CR 0.64 12/24/2016 GLU 144 12/24/2016 CA 8.4 12/24/2016 OBSCA 1.11 12/24/2016 MG 2.2 12/24/2016 PO4 2.3 12/24/2016 Coagulation: Lab Results Component Value Date PTT 23.7 12/22/2016 INR 1.0 12/22/2016 Anesthesia Plan ASA score: 4 Plan: general and invasive monitoring NPO status: acceptable Informed Consent Anesthetic plan and risks discussed with spouse. Use of blood products discussed with spouse; consented to blood products. Consent signed by Frank. in this encounter Plan of Treatment Name Priority Associated Diagnoses Date/Time ANESTHESIA ARTERIAL LINE INSERTION Routine 12/24/2016 2:33 PM CDT as of this encounter Visit Diagnoses Not on filein this encounter Administered Medications Medication Order MAR Action Action Date Dose Rate Site ceFAZolin (ANCEF) injection Given 12/24/2016 2 g INTRA-PROCEDURE MED, Starting Thu12/24/16 14:35 CDT at 1435, Until Thu12/24/16 at 1648, Anesthesia Intra-op dexamethasone (DECADRON) injection Given 12/24/2016 4 mg Intravenous, INTRA-PROCEDURE MED, 14:38 CDT Starting Thu12/24/16 at 1438, Until Thu12/24/16 at 1648, Nausea/Vomiting Injectable, Anesthesia Intra-op esmolol (BREVIBLOC) injection Given 12/24/2016 10 mg INTRA-PROCEDURE MED, Starting Thu12/24/16 16:07 CDT at 1607, Until Thu12/24/16 at 1648, Anesthesia Intra-op Given 12/24/2016 10 mg 16:10 CDT Given 12/24/2016 10 mg 16:20 CDT fentaNYL citrate PF (SUBLIMAZE) Given 12/24/2016 50 mcg injection 14:14 CDT INTRA-PROCEDURE MED, Starting Thu12/24/16 at 1414, Until Thu12/24/16 at 1648, Pain Injectable, Anesthesia Intra-op Given 12/24/2016 50 mcg 14:28 CDT Given 12/24/2016 50 mcg 15:47 CDT labetalol (NORMODYNE) injection Given 12/24/2016 5 mg INTRA-PROCEDURE MED, Starting Thu12/24/16 16:25 CDT at 1625, Until Thu12/24/16 at 1648, Systolic Blood Pressure..., Anesthesia Intra-op lactated ringers infusion Given - New 12/24/2016 INTRA-PROCEDURE MED(CONT), Starting Thu Bag 15:15 CDT 12/24/16 at 1515, Until Thu12/24/16 at 1648, Anesthesia Intra-op lidocaine (PF) injection Given 12/24/2016 10 mg INTRA-PROCEDURE MED, Starting Thu12/24/16 14:14 CDT at 1414, Until Thu12/24/16 at 1648, Anesthesia Intra-op ondansetron (ZOFRAN) injection Given 12/24/2016 4 mg Intravenous, INTRA-PROCEDURE MED, 15:32 CDT Starting Thu12/24/16 at 1532, Until Thu12/24/16 at 1648, Nausea/Vomiting Injectable, Anesthesia Intra-op phenylephrine (VALENTÍN-SYNEPHRINE) 10 mg in Infusion 12/24/2016 0.02 1.7 mL/ hr sodium chloride 0.9% (NS) 250 mL IV drip Restarted 15:35 CDT mcg/kg/min (std conc) 10 mg 250 mL, INTRA-PROCEDURE MED(CONT), Starting Thu12/24/16 at 1445, Until Thu12/24/16 at 1648, Anesthesia Intra-op Dose/Rate Change 12/24/2016 0.04 3.3 mL/hr 15:38 CDT mcg/kg/min Dose/Rate Change 12/24/2016 0.02 1.7 mL/hr 15:45 CDT mcg/kg/min phenylephrine in NS Injection Given 12/24/2016 100 mcg Intravenous, INTRA-PROCEDURE MED, 14:35 CDT Starting Thu12/24/16 at 1440, Until Thu12/24/16 at 1648, Symptomatic Hypotension, Anesthesia Intra-op Given 12/24/2016 200 mcg 14:40 CDT Given 12/24/2016 200 mcg 14:48 CDT propofol (DIPRIVAN) injection Given 12/24/2016 100 mg Intravenous, INTRA-PROCEDURE MED, 14:14 CDT Starting Thu12/24/16 at 1414, Until Thu12/24/16 at 1648, Anesthesia Intra-op rocuronium (ZEMURON) injection Given 12/24/2016 25 mg Intravenous, INTRA-PROCEDURE MED, 14:22 CDT Starting Thu12/24/16 at 1422, Until Thu12/24/16 at 1648, Anesthesia Intra-op Given 12/24/2016 15 mg 15:15 CDT sodium chloride 0.9 % infusion Given - New 12/24/2016 INTRA-PROCEDURE MED(CONT), Starting Thu Bag 14:05 CDT 12/24/16 at 1405, Until Thu12/24/16 at 1648, Anesthesia Intra-op sodium mixed salt 2% infusion (NaCl 1%, [...] Dose/Rate Change 12/28/2016 20 mL/hr 19:54 CDT succinylcholine (ANECTINE) injection Given 12/24/2016 80 mg Intravenous, INTRA-PROCEDURE MED, 14:15 CDT Starting Thu12/24/16 at 1415, Until Thu12/24/16 at 1648, Anesthesia Intra-op sugammadex (BRIDION) injection Given 12/24/2016 110 mg INTRA-PROCEDURE MED, Starting Thu12/24/16 15:55 CDT at 1555, Until Thu12/24/16 at 1648, Anesthesia Intra-op in this encounter
--- OUTSIDE RECORDS SUMMARY | 2017-03-03 06:10 | XMS REPORT | Encounter Summary ---
Author Author [facility] Organization [facility] Address Unknown Phone Unavailable Care Team Providers Care Business Education Professor Name Role Phone PCP Unavailable Encounter Details Date Type Department Care Team Description 12/24/2016 Procedure Pass Main Operating Room [address] [place] [address] Social History Tobacco Use Types [...]
--- OUTSIDE RECORDS SUMMARY | 2017-03-03 06:10 | XMS REPORT | Encounter Summary ---
Author Author [facility] Organization [facility] Address Unknown Phone Unavailable Care Team Providers Care Global Upstream Marketing Manager Name Role Phone PCP Unavailable Reason for Visit * Auth/Cert Status Reason Specialty Diagnoses / Referred By Referred To Procedures Contact Contact Diagnoses large left front hematoma Hemorrhagic stroke (HCC) Encounter Details Date Type Department Care Team Description 01/02/2017 Surgery Main Operating Room Jong Hankins MD INSERTION GASTROSTOMY [address] [place] [address] [address] [place] [address] [phone] Social History Tobacco Use Types Packs/Day Years [...] notable for: 66 y.o. female transfer from [facility] with large left frontal parenchymal hemorrhage [...] of 0800 -1700, please call Theresa at [phone]. Otherwise, please call the main hospital number ([phone]) and ask for the neurosurgery resident tax commissioner to be paged. BLADDER SCAN BEDSIDE Every 4 hours STRAIGHT CATH Every 4 hours for > 300 ml on bladder scan INSTRUCTIONS, ADDITIONAL CT head without contrast prior to DC from rehab. Please call [phone] when completed. PT EVAL & TREAT PT EVAL & TREAT Report These Signs and Symptoms Call for pain that is uncontrolled with pain medication, numbness or weakness, vision changes, trouble with speech or slurring of speech, or any questions/ concerns. Questions About Your Stay For questions or concerns regarding your hospital stay. Call [phone] Discharging attending physician: ANTWAN GUADARRAMA [[id number]] Tube Feeding Isosource 1.5 45 ml/hr with [...] Post - Op with Antwan Guadarrama MD [facility] - Neurosurgery (P NeuroSurgery) 2nd Floor Pod [address] [facility] [id number] Pending items needing follow up: None Signed: [...] dysphagia assessment and treatment. Therapist: SUZANNE Perez, CF-STEEL HANGER [phone] Date: 01/06/2017 * Jasmyne Avendaño OT [...] socks over her toes, pt able to pin puller heel with minimal assist for steadying/balance. 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 Mckenzie Montesinos, MARRIAGE AND FAMILY SOCIAL WORKER 1015 Please call [phone] with any questions. * Kyle Christensen - 01/06/2017 8:54 AM CDT PHYSICAL THERAPY PROGRESS NOTE MOBILITY: Mobility Progressive Mobility Level: Walk laps Distance Walked (feet): 250 ft Level of Assistance: Assist X1 Assistive Device: Hand Held Time Tolerated: 11-30 minutes Activity Limited By: Fatigue SUBJECTIVE: Subjective Significant hospital events: 66 y.o. female PMH TIA, dementia, osteoporosis, arthritis, chronic back pain, admitted to [facility] with ICH on 12/22/16. Mental / Cognitive [...] osteoporosis, arthritis, chronic back pain, admitted to [facility] with ICH on 12/22/16. Large left frontal [...] Consist/Presentation* Presentations: Therapist Fed Thin Liquid: Cup [place] Thick Liquid: Cup, straw Education* Persons Educated: Patient Barriers To Learning: Impaired Communication, Decreased Alertness, Cognitive Deficits, Family not present Interventions: Staff Educated Teaching Methods: Verbal Topics: Aphasia, Dysphagia Patient Response: More Instruction Required Goals: Pt will participate in ongoing dysphagia assessment and treatment. Therapist: SUZANNE Perez, CF-STEEL HANGER [phone] Date: 01/05/2017 * Jasmyne Avendaño OT - 01/05/2017 2:08 PM CDT OCCUPATIONAL THERAPY NO TREATMENT NOTE The patient was not seen due to: Patient at test/procedure just left for video swallow study. 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 IVF 1/ 2NS 500ml bolus, and 150ml free water boluses every 4 hours STEEL HANGER VS this afternoon SW for DC planning -anticipate ready for rehab tomorrow 01/06 Prophylaxis: A)GI: PPI B) Lines: No C) Urinary Catheter: No D) Antibiotic Usage: No E) VTE: Pharmacological prophylaxis; SQ Heparin and Mechanical prophylaxis; Sequential compression device F) Restraints: Patient assessed for need for restraints. Mckenzie Montesinos, MARRIAGE AND FAMILY SOCIAL WORKER 8192 Please call [phone] with any questions. * Kyle Christensen - 01/05/2017 11:35 AM CDT PHYSICAL THERAPY PROGRESS NOTE MOBILITY: Mobility Progressive Mobility Level: Walk in hallway Distance Walked (feet): 120 ft Level of Assistance: Assist X2 Assistive Device: Hand Held Time Tolerated: 0-10 minutes Activity Limited By: Fatigue;Weakness SUBJECTIVE: Subjective Significant hospital events: 66 y.o. female PMH TIA, dementia, osteoporosis, arthritis, chronic back pain, admitted to [facility] with ICH on 12/22/16. 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) Dementia TIA (transient ischemic attack) Chronic back pain Intraparenchymal hemorrhage of brain (HCC) Added automatically from request for surgery [id number] Keppra LAMINATION SPINNER ASA/Plavix held Q1H neurochecks PT/OT inpatient setting Rehab consulted, follow up early next week, family interested in [facility] PEG placed, TF's restarted at 1800 STEEL HANGER VS Thursday SW for DC planning Prophylaxis: A)GI: PPI B) Lines: No C) Urinary Catheter: No D) Antibiotic Usage: No E) VTE: Pharmacological prophylaxis; SQ Heparin and Mechanical prophylaxis; Sequential compression device F) Restraints: Patient assessed for need for restraints. Abby Hernandez MD Please call [phone] with any questions. Associated attestation - Madhavi Rivera MD - 01/03/2017 12:42 PM CDT Attending Note Patient and imaging reviewed with resident/ OIL BURNER JOURNEYMAN. Patient seen and examined on . I [...] off at this time. Call with questions [id number] Discussed plan of care with Dr. Hankins [...] Intake/Output Summary (Last 24 hours) at 01/03/17 0885 Last data filed at 01/03/17 0500 Gross [...] calcium gluconate IVPB 1 g Intravenous PRN (Molder Shoulder Pad from Rx) hydrALAZINE 10-20 mg Intravenous Q6H PRN HYDROcodone/acetaminophen 1-2 tablet Oral Q4H PRN magnesium sulfate 1 g Intravenous PRN ondansetron 4 mg Intravenous Q6H PRN pancrelipase 20,000 Units/ sodium bicarbonate 650 mg(#) 1 capsule Feeding Tube PRN (Molder Shoulder Pad from Rx) potassium chloride SR 40 mEq [...] PO4 3.5 4.5* Karri Rai DO Pager: [phone] Associated attestation - Jong Hankins MD - [...] fashion. Jong Hankins MD Trauma/Critical Care/General Surgery [phone] * Calvin Lundberg DO - 01/02/2017 6:11 PM CDT ACS PEG usage: ok to use PEG for meds now. Tube feeds ok starting at 1800 on . Tamika [id number] * Alesha Patton, VANESSA - 01/02/2017 4:45 PM CDT Pt. Transferred to OR with transport via cart. VS stable. Ticket to ride provided and report given to COLD MILL INSPECTOR. * Gurvinder Galicia - 01/02/2017 3:56 PM CDT SPEECH-LANGUAGE PATHOLOGY NO TREATMENT NOTE The patient was not seen due to: Pt NPO for procedure (PEG placement) later this date. Will f/u 01/05. Therapist: SUZANNE Perez, CF-STEEL HANGER [phone] Date: 01/02/2017 * Jasmyne Avendaño OT [...] Too early to be determined Therapist: Jasmyne Avendaño, OT Date: 01/02/2017 * Kyle Christensen - [...] osteoporosis, arthritis, chronic back pain, admitted to [facility] with ICH on 12/22/16. Mental / Cognitive [...] Vital Signs: 24 Hour Range BP: 106/50 (01/020) Temp: 36.7 C (98 F) (01/03 400) Pulse: 104 (01/02 0400) Respirations: 15 PER [...] calcium gluconate IVPB 1 g Intravenous PRN (Molder Shoulder Pad from Rx) hydrALAZINE 10-20 mg Intravenous Q6H PRN HYDROcodone/acetaminophen 1-2 tablet Oral Q4H PRN magnesium sulfate 1 g Intravenous PRN ondansetron 4 mg Intravenous Q6H PRN pancrelipase 20,000 Units/ sodium bicarbonate 650 mg(#) 1 capsule Feeding Tube PRN (Molder Shoulder Pad from Rx) potassium chloride SR 40 mEq [...] 3.5 3.5 4.5* Karri Rai DO Pager: [phone] * Nicole Miller, RD - 01/01/2017 3:31 PM CDT CLINICAL NUTRITION Clinical Nutrition Follow-Up Summary Nutrition Assessment of Patient: Malnutrition Assessment: Malnutrition present Malnutrition Context: ICD-10 code E43: Chronic illness/Severe malnutrition Estimated Calorie Needs: 2906-9199 (28-30 kcal/kg dry wt 55.4kg) Estimated Protein Needs: 65-75 (1.2-1.4g/kg dry wt 55.4kg) Oral Diet Order: NPO 3 day Average Intake (calories) Daily Average : 838 kilocalories Intake (protein) Daily Average : 38 grams female w/ PMH including dementia, chronic back pain, TIA; transferred to [facility] 12/22 with large left frontal parenchymal hemorrhage [...] per NGT 12/25. [address] met 55% min kcal goal and 58% [...] osteoporosis, arthritis, chronic back pain, admitted to [facility] with Left frontal IPH on . Patient [...] Carrie Pack, LELANDR/Bharati 0271 Date: 01/01/2017 * Gurvinder Galicia - 01/01/2017 11:53 AM CDT SPEECH-LANGUAGE [...] w/ verbal presentation of the word from STEEL HANGER w/ max cues. VERBAL EXPRESSION Comments*: Pt [...] accuracy w/ max cues. Therapist: SUZANNE Perez, CF-STEEL HANGER [phone] Date: 01/01/2017 * Kyle Christensen - [...] osteoporosis, arthritis, chronic back pain, admitted to [facility] with ICH on 12/22/16 Mental / Cognitive [...] aspiration. Pt inconsistently w/ spontaneous responses to STEEL HANGER questions w/ 1 - to 3-word responses. [...] Corpak. Meds via Corpak. Anticipate need for prison alternative source of nutrition. Excellent oral care. [...] therapy post acute hospitalization. Therapist: SUZANNE Perez, CF-STEEL HANGER [phone] Date: 01/01/2017 * Elen Styles RN - 12/31/2016 6:51 PM CDT PEG tube placement cancelled 2/2 patient too lethargic in procedural area. Upon arrival patient alert and sitting up in bed. Orders received to restart tube feeding. Possible PEG placement rescheduled for Thursday. Will monitor. * Lilliana White RN - 12/31/2016 6:16 PM CDT At 1816 [...] aspiration. Pt rarely w/ spontaneous responses to STEEL HANGER questions w/ 1- or 2-word responses ("yeah", "pretty good"). Unable to elicit voice, cough, or throat clear on command. No family present during session. RECOMMENDATIONS: Remain NPO at this time due to waxing and waning alertness and lethargy w/ continued use of Corpak. Meds via Corpak. Anticipate need for prison alternative source of nutrition. Excellent oral care. [...] therapy post acute hospitalization. Therapist: SUZANNE Perez, CF-STEEL HANGER [phone] Date: 12/31/2016 * Elen Styles RN [...] osteoporosis, arthritis, chronic back pain, admitted to [facility] with ICH on 12/22/16. Mental / Cognitive [...] calcium gluconate IVPB 1 g Intravenous PRN (Molder Shoulder Pad from Rx) hydrALAZINE 10-20 mg Intravenous Q6H PRN HYDROcodone/acetaminophen 1-2 tablet Oral Q4H PRN magnesium sulfate 1 g Intravenous PRN ondansetron 4 mg Intravenous Q6H PRN pancrelipase 20,000 Units/ sodium bicarbonate 650 mg(#) 1 capsule Feeding Tube PRN (Molder Shoulder Pad from Rx) potassium chloride SR 40 mEq Oral PRN Or potassium chloride 40 mEq Per NG tube PRN Or potassium chloride 10 mEq Intravenous PRN Current Infusions: Glucose Monitoring: FSBS (Manual): (!) 134 (12/31/16 0854) Glucose: (!) 130 (12/31/16 0525) POC Glucose (Download): (!) 134 (12/31/1653) Recent Laboratory Studies: Recent Labs 12/28/16 1309 [...] -- 4.3* 3.5 Adam Nicholson MD Pager: [phone] * Carrie Pack, OT - 12/31/2016 10:29 [...] osteoporosis, arthritis, chronic back pain, admitted to [facility] with Left frontal IPH on . Patient to OR for hematoma evacuation and EVD placement on 12/24. Precautions: Falls Pain / Complaints: Patient demonstrates no signs of pain Objective Psychosocial Status: Willing and Cooperative to Participate Persons Present: Or Assistant ADL's Where Assessed: Standing at Sink Grooming [...] be determined Therapist: HENRY James/Bharati 0271 Date: 12/31/2016 * Mattie Quiroz, PT [...] osteoporosis, arthritis, chronic back pain, admitted to [facility] with ICH on 12/22/16. Mental / Cognitive [...] Call Light (TABs alarm activated) Comments: Recommend medical staff director perform stand pivot transfer with 2 person [...] osteoporosis, arthritis, chronic back pain, admitted to [facility] with Left frontal IPH on . Patient [...] aspiration. Pt rarely w/ spontaneous responses to STEEL HANGER questions w/ 1- or 2-word responses ("yeah", "pretty good"). Unable to elicit voice, cough, or throat clear on command. No family present during session. RECOMMENDATIONS: Remain NPO at this time due to waxing and waning alertness and lethargy w/ continued use of Corpak. Meds via Corpak. Anticipate need for prison alternative source of nutrition. Excellent oral care. [...] therapy post acute hospitalization. Therapist: SUZANNE Perez, CF-STEEL HANGER [phone] Date: 12/30/2016 * Iwona Woo APRN [...] 12/22/2016 Added automatically from request for surgery [id number] Roxy Phillip is a 66 y.o. female [...] - Keppra 500 mg BID - Holding LAMINATION SPINNER Plavix (placed on after TIA)- will discuss [...] 0-10 (Pain 1): (not recorded) Vitals: 12/28/16 04012/29/16 04012/30/16399 Weight: 55.6 kg (122 lb 9.2 oz) 56.1 kg (123 lb 10.9 oz) 55.2 kg (121 lb 11.1 oz ) Lines: Peripheral Line Drains: Nasogastric tube: + mL Intake/Output Summary: (Last 24 hours) Intake/Output Summary (Last 24 hours) at 12/30/16 0773 Last data filed at 12/30/16 0400 Gross per 24 hour Intake 595 ml Output 1196 ml Net -601 ml Stool Occurrence: 1 Physical Exam: Blood pressure 107/45, pulse 76, temperature 36.7 C (98 F), height 154.9 cm (61"), weight 55.2 kg (121 lb 11.1 oz), SpO2 93 %. Osbaldo coma score: E: 4 - [...] radiologic and diagnostic procedures reviewed. Iwona Woo, MARRIAGE AND FAMILY SOCIAL WORKER Date: 12/30/[phone] I spent 40 minutes managing the care [...] of care with consulted teams. * Navjot Martinez, RN - 12/30/2016 4:12 AM CDT Pt neuro exam change. Pt more lethargic and opens eyes to vigorous stimulation. BP 88/49 and still has tachypnea. Neurosurgery notified. Doppler venous bilateral ordered. Will continue to monitor. * Navjot Martinez, RN - 12/30/2016 2:39 AM CDT Formatting [...] fentanyl. Will continue to monitor * Navjot Martinez, RN - 12/30/2016 1:23 AM CDT Formatting [...] <60. No new orders. Passed on to film processing shift supervisor nurse. Will continue to monitor closely. * [...] osteoporosis, arthritis, chronic back pain, admitted to [facility] with ICH on 12/22/16. Mental / Cognitive [...] osteoporosis, arthritis, chronic back pain, admitted to [facility] with Left frontal IPH on . Patient [...] Corpak. Meds via Corpak. Anticipate need for confectionery laboratory manager alternative source of nutrition. Excellent oral care. [...] therapy post acute hospitalization. Therapist: SUZANNE Perez, CF-STEEL HANGER [phone] Date: 12/29/2016 * Shantal Lopez, SERVANDO - 12/29/2016 2:25 PM CDT CLINICAL NUTRITION Clinical Nutrition Follow-Up Summary Nutrition Assessment of Patient: Malnutrition Assessment: Malnutrition present Malnutrition Context: ICD-10 code E43: Chronic illness/Severe malnutrition Estimated Calorie Needs: 5331-2208 (28-30 kcal/kg dry wt 55.4kg) Estimated Protein [...] dementia, chronic back pain, TIA; transferred to [facility] 12/22 with large left frontal parenchymal hemorrhage [...] hrs after procedure if medically able) Shantal Lopez RD * Natalie Platt RN - 12/29/2016 11:15 [...] 12/22/2016 Added automatically from request for surgery [id number] ATTESTATION Date of Service: 12/29/2016 I have seen, personally fully evaluated, and discussed patient with the NEURO- ENT ICU team. The patient is critically ill with L frontal IPH and IVH (8/7) s/ p crani and evacuation of hematoma [...] PO NaCl. Trend sodiums another day. Cont LAMINATION SPINNER ASA and plavix. CV - meeting SBP [...] 0.5% Q4H PRN, calcium gluconate IVPB PRN (Molder Shoulder Pad from Rx) AND Ionized Calcium PRN AND Notify Physician Ongoing, fentaNYL citrate PF Q1H PRN, hydrALAZINE Q6H PRN, HYDROcodone/acetaminophen Q4H PRN, magnesium sulfate PRN AND Magnesium PRN * *AND Notify Physician Ongoing, ondansetron Q6H PRN, pancrelipase 20,000 Units / sodium bicarbonate 650 mg(#) PRN (Molder Shoulder Pad from Rx), potassium chloride SR PRN OR [...] 0423) POC Glucose (Download): (!) 109 (12/29/16 4225) Radiology and Other Diagnostic Procedures Review: Pertinent radiology reviewed. Mary Huntley MD 12/29/2016 Pager: [phone] * Daisy Benitez RN - 12/29/2016 10:18 [...] see patient 1 time Therapist: SUZANNE Perez, CF-STEEL HANGER [phone] Date: 12/29/2016 * Ashia Patterson APRN - 12/29/2016 6:48 AM CDT Formatting of this note may be different from the original. 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 Disposition/Family:continue ICU care Primary service:NSG Consults: RODRIGUE, Rehab medicine __ SUBJECTIVE Roxy Phillip is a 66 y.o. female. Overnight Events: No new events noted. OBJECTIVE Vital Signs: Last Filed Vital Signs: 24 Hour Range BP: 129/65 (12/29 599) Temp: 36.7 C (98 F) (12/29 0400) [...] 0.5% Q4H PRN, calcium gluconate IVPB PRN (Molder Shoulder Pad from Rx) AND Ionized Calcium PRN AND Notify Physician Ongoing, fentaNYL citrate PF Q1H PRN, hydrALAZINE Q6H PRN, HYDROcodone/acetaminophen Q4H PRN, magnesium sulfate PRN AND Magnesium PRN * *AND Notify Physician Ongoing, ondansetron Q6H PRN, pancrelipase 20,000 Units / sodium bicarbonate 650 mg(#) PRN (Molder Shoulder Pad from Rx), potassium chloride SR PRN OR [...] (123 lb 10.9 oz), SpO2 97 %. Vining coma score: E: 4 - Opens eyes [...] of care with consulted teams. Ashia Patterson, MARRIAGE AND FAMILY SOCIAL WORKER Date: 12/29/[phone] * Jaswinder Gaspar MD - 12/29/2016 6:31 [...] (HCC) Added automatically from request for surgery [id number] Nontraumatic cortical hemorrhage of left cerebral hemisphere [...] 147, On 2% @20, PO salt Keppra LAMINATION SPINNER ASA/Plavix held Q1H neurochecks PT/OT inpatient setting (will need rehab consult) ST, NPO SW for DC planning Prophylaxis: A)GI: PPI B) Lines: No C) Urinary Catheter: No D) Antibiotic Usage: No E) VTE: Pharmacological prophylaxis; Contraindication: Bleeding risk; No SQH large ICH with hx of ASA/Plavix and Mechanical prophylaxis; Sequential compression device F) Restraints: Patient assessed for need for restraints. Jaswinder Gaspar MD 0249 Please call [phone] with any questions. * Rommel Cisneros, VANESSA [...] admitted to the NSICU with: [facility] frontal [facility] Hospital and ICU course: 12/22: admitted to [...] 12/22/2016 Added automatically from request for surgery [id number] 24 hour I/O balance is as follows: Intake/Output Summary (Last 24 hours) at 12/28/16 0840 Last data filed at 12/28/16 0800 Gross per 24 hour Intake 2335 ml Output 1839 ml Net 496 ml __ Subjective: Roxy Phillip is a 66 y.o. female. Overnight Events: No new events noted, sign out obtained from film processing shift supervisor person ( nurse and ICU physician). Patient [...] Meds:acetaminophen Q4H PRN, calcium gluconate IVPB PRN (Molder Shoulder Pad from Rx) AND Ionized Calcium PRN AND Notify Physician Ongoing, fentaNYL citrate PF Q1H PRN, hydrALAZINE Q6H PRN, HYDROcodone/acetaminophen Q4H PRN, magnesium sulfate PRN AND Magnesium PRN AND Notify Physician Ongoing, ondansetron Q6H PRN, pancrelipase 20,000 Units/ sodium bicarbonate 650 mg(#) PRN (Molder Shoulder Pad from Rx), potassium chloride SR PRN OR [...] optimize venous drainage Maintain normothermia, avoid hypoxemia, Rock appropriate osmotherapy ( i.e mannitol vs Hypertonic [...] (Last 24 hours): Glucose: (!) 175 (12/28/16 0611) POC Glucose (Download): (!) 159 (12/28/16 1488) Drains: reviewed Prophylaxis Review: Lines: No Urinary [...] HAD BM on 12-27-16 Social work and patient case coordinator for discharge planning and placement. Family Meeting and update: yes. Patient is unable to make his or her decisions, family updated during rounds. Goals of therapy: Addressed, Patient is a full code Nurses concerns addressed. 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) Dementia TIA (transient ischemic attack) Chronic back pain EVD catheter withdrawn 12/25/16 Pulled back again this AM (12/27/16), CT head shows new position of catheter and decreased size of IPH Na- 143, On 2% @50, PO salt Keppra LAMINATION SPINNER ASA/Plavix held Q1H neurochecks PT/OT inpatient setting (will need rehab consult) ST, NPO SW for DC planning Prophylaxis: A)GI: PPI B) Lines: No C) Urinary Catheter: No D) Antibiotic Usage: No E) VTE: Pharmacological prophylaxis; Contraindication: Bleeding risk; No SQH large ICH with hx of ASA/Plavix and Mechanical prophylaxis; Sequential compression device F) Restraints: Patient assessed for need for restraints. Phylicia Duenas MD 6618 Please call [phone] with any questions. * Robbie Singh, MARRIAGE AND FAMILY SOCIAL WORKER - 12/28/2016 6:52 AM CDT Formatting of this note may be different from the original. 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) 2016 Dementia 12/23/2016 TIA (transient ischemic attack) 12/23/2016 Chronic back pain 12/23/2016 Intraparenchymal hemorrhage of brain (HCC) 12/22/2016 Added automatically from request for surgery [id number] Hospital and ICU course: 12/22: admitted to [...] - Keppra 500 mg BID - Holding LAMINATION SPINNER Plavix (placed on after TIA) 12/27 Head [...] Meds:acetaminophen Q4H PRN, calcium gluconate IVPB PRN (Molder Shoulder Pad from Rx) AND Ionized Calcium PRN AND Notify Physician Ongoing, fentaNYL citrate PF Q1H PRN, hydrALAZINE Q6H PRN, HYDROcodone/acetaminophen Q4H PRN, magnesium sulfate PRN AND Magnesium PRN AND Notify Physician Ongoing, ondansetron Q6H PRN, pancrelipase 20,000 Units/ sodium bicarbonate 650 mg(#) PRN (Molder Shoulder Pad from Rx), potassium chloride SR PRN OR [...] (122 lb 9.2 oz), SpO2 97 %. Vining coma score: E: 4 - Opens eyes [...] (Last 24 hours): Glucose: (!) 175 (12/28/16 5899) POC Glucose (Download): (!) 159 (12/28/16 6067) Radiology and Other Diagnostic Procedures Review: all noted I spent 45 minutes managing the care of this patient. Mrs Phillip is critically ill s/p ICH. Cares included: detailed neurologic and systems exam, medication review, laboratory data review and interpretation, electrolyte management, review of available imaging, DVT/PE prophylaxis review, diet review , activity review, and coordination of care with consulted teams. Robbie Singh, MARRIAGE AND FAMILY SOCIAL WORKER Date: 12/28/[phone] * Delaney Lechuga RN - 12/27/2016 6:30 PM CDT Notified Neurosurgery [...] 12/22/2016 Added automatically from request for surgery [id number] Hospital and ICU course: 12/22: admitted to [...] - Keppra 500 mg BID - Holding LAMINATION SPINNER Plavix (placed on after TIA) 12/27 Head [...] daily BM (last 12/25) Heme: stable -hold LAMINATION SPINNER Plavix and ASA - Hgb 11.0, Plt [...] need for restraints. Disposition/Family:ICU Primary service:NS Consults: NEICU ____ SUBJECTIVE Roxy Phillip is a 66 [...] Meds:acetaminophen Q4H PRN, calcium gluconate IVPB PRN (Molder Shoulder Pad from Rx) AND Ionized Calcium PRN AND Notify Physician Ongoing, fentaNYL citrate PF Q1H PRN, hydrALAZINE Q6H PRN, HYDROcodone/acetaminophen Q4H PRN, magnesium sulfate PRN AND Magnesium PRN AND Notify Physician Ongoing, ondansetron Q6H PRN, pancrelipase 20,000 Units/ sodium bicarbonate 650 mg(#) PRN (Molder Shoulder Pad from Rx), potassium chloride SR PRN OR [...] (121 lb 0.5 oz), SpO2 97 %. Vining coma score: E: 4 - Opens eyes [...] all noted Myke Hernandez MD Date: 12/27/[phone] Associated attestation - Marcos Herrmann MD - [...] 12/22/2016 Added automatically from request for surgery [id number] 24 hour I/O balance is as follows: Intake/Output Summary (Last 24 hours) at 12/27/16 1239 Last data filed at 12/27/16 1200 Gross per 24 hour Intake 2167 ml Output 2624 ml Net -457 ml __ Subjective: Roxy Phillip is a 66 y.o. female. Overnight Events: No new events noted, sign out obtained from film processing shift supervisor person ( nurse and [facility] physician). Patient examined: yes Objective: I have [...] Meds:acetaminophen Q4H PRN, calcium gluconate IVPB PRN (Molder Shoulder Pad from Rx) AND Ionized Calcium PRN AND Notify Physician Ongoing, fentaNYL citrate PF Q1H PRN, hydrALAZINE Q6H PRN, HYDROcodone/acetaminophen Q4H PRN, magnesium sulfate PRN AND Magnesium PRN AND Notify Physician Ongoing, ondansetron Q6H PRN, pancrelipase 20,000 Units/ sodium bicarbonate 650 mg(#) PRN (Molder Shoulder Pad from Rx), potassium chloride SR PRN OR [...] optimize venous drainage Maintain normothermia, avoid hypoxemia, Rock appropriate osmotherapy ( i.e mannitol vs Hypertonic [...] (Last 24 hours): Glucose: (!) 184 (12/27/16 2226) Drains: reviewed Prophylaxis Review: Lines: No Urinary [...] aspiration. Monitor for BM Social work and patient case coordinator for discharge planning and placement. Family Meeting and update: yes. Patient is unable to make his or her decisions, family updated during rounds. Goals of therapy: Addressed, Patient is a full code Nurses concerns addressed. 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) Dementia TIA (transient ischemic attack) Chronic back pain EVD catheter withdrawn 12/25/16 Pulled back again this AM (12/27/16), CT head ordered to evaluate new position Na- 149, On 2% @20, PO salt Keppra LAMINATION SPINNER ASA/Plavix held Q1H neurochecks PT/OT inpatient setting (will need rehab consult) ST, NPO SW for DC planning Prophylaxis: A)GI: PPI B) Lines: No C) Urinary Catheter: No D) Antibiotic Usage: No E) VTE: Pharmacological prophylaxis; Contraindication: Bleeding risk; No SQH large ICH with hx of ASA/Plavix and Mechanical prophylaxis; Sequential compression device F) Restraints: Patient assessed for need for restraints. Phylicia Duenas MD [phone] Please call [phone] with any questions. * Gurvinder Galicia - 12/26/2016 2:23 PM CDT SPEECH-LANGUAGE PATHOLOGY NO TREATMENT NOTE Per discussion w/ RN, pt still demonstrating lethargy and reduced arousal and not appropriate for swallow treatment on this date. Do not anticipate changes in swallow function in near future. Will f/u 12/29. Attempted to see patient 1 time Therapist: SUZANNE Perez, CF-STEEL HANGER [phone] Date: 12/26/2016 * Kyle Christensen - [...] osteoporosis, arthritis, chronic back pain, admitted to [facility] with Left frontal IPH on . Patient [...] 12/22/2016 Added automatically from request for surgery [id number] Hospital and ICU course: 12/22: admitted to [...] - Per Took 10/325mg Hydrocodone q6 hours LAMINATION SPINNER- Minimize narcotic use - Assess for delirium [...] bowel regimen, ensure daily BM Heme: -hold LAMINATION SPINNER Plavix and ASA - 12/24 Hgb 10.6 [...] Meds:acetaminophen Q4H PRN, calcium gluconate IVPB PRN (Molder Shoulder Pad from Rx) AND Ionized Calcium PRN AND Notify Physician Ongoing, fentaNYL citrate PF Q1H PRN, hydrALAZINE Q6H PRN, HYDROcodone/acetaminophen Q4H PRN, magnesium sulfate PRN AND Magnesium PRN AND Notify Physician Ongoing, ondansetron Q6H PRN, pancrelipase 20,000 Units/ sodium bicarbonate 650 mg(#) PRN (Molder Shoulder Pad from Rx), potassium chloride SR PRN OR [...] (119 lb 14.9 oz), SpO2 94 %. Vining coma score: E: 4 - Opens eyes [...] care 50 min Inocencio LacKamp Date: 12/26/[phone] * Carrie Lindquist, MARRIAGE AND FAMILY SOCIAL WORKER-OIL BURNER JOURNEYMAN - 12/26/2016 7:47 AM CDT Formatting of this note may be different from the original. 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) 2016 Dementia 12/23/2016 TIA (transient ischemic attack) 12/23/2016 Chronic back pain 12/23/2016 Intraparenchymal hemorrhage of brain (HCC) 12/22/2016 Added automatically from request for surgery [id number] Hospital and ICU course: 12/22: admitted to [...] - Keppra 500 mg BID - Holding LAMINATION SPINNER Plavix (placed on after TIA) Sedation/Pain Management: [...] ensure daily BM (last 12/25) Heme: -hold LAMINATION SPINNER Plavix and ASA - Hgb 9.1, Plt [...] 1%, Na Acetate 1%) 50 mL/hr at 12/25/163 PRN and Respiratory Meds:calcium gluconate IVPB PRN (Molder Shoulder Pad from Rx) AND Ionized Calcium PRN AND Notify Physician Ongoing, fentaNYL citrate PF Q1H PRN, hydrALAZINE Q6H PRN, HYDROcodone/acetaminophen Q4H PRN, magnesium sulfate PRN AND Magnesium PRN AND Notify Physician Ongoing, ondansetron Q6H PRN , pancrelipase 20,000 Units/ sodium bicarbonate 650 mg(#) PRN (Molder Shoulder Pad from Rx) , potassium chloride SR PRN [...] (119 lb 14.9 oz), SpO2 100 %. Osbaldo coma score: E: 4 - [...] of care with consulted teams. Carrie Lindquist, MARRIAGE AND FAMILY SOCIAL WORKER-OIL BURNER JOURNEYMAN Date: 12/26/[phone] * Nicole Little RN - 12/25/2016 7:21 PM CDT I have reviewed the notes, assessments, and/or procedures performed by Caitlin Viera RN and concur with her documentation unless otherwise noted. * Inocencio Haddad - 12/25/2016 6:58 PM CDT Formatting [...] 12/22/2016 Added automatically from request for surgery [id number] Hospital and ICU course: 12/22: admitted to [...] - Keppra 500 mg BID - Hold LAMINATION SPINNER Plavix (placed on after TIA) Sedation/Pain Management: Hx of Chronic back pain - Per Took 10/325mg Hydrocodone q6 hours LAMINATION SPINNER- hold for now, use PRNs if needed [...] bowel regimen, ensure daily BM Heme: -hold LAMINATION SPINNER Plavix and ASA - 12/24 Hgb 10.6 [...] for restraints. Disposition/Family:ICU Primary service:NS Consults: NEJAMESU __ SUBJECTIVE Roxy Phillip is a 66 [...] PRN and Respiratory Meds:calcium gluconate IVPB PRN (Molder Shoulder Pad from Rx) AND Ionized Calcium PRN AND Notify Physician Ongoing, fentaNYL citrate PF Q1H PRN, hydrALAZINE Q6H PRN, HYDROcodone/acetaminophen Q4H PRN, magnesium sulfate PRN AND Magnesium PRN AND Notify Physician Ongoing, ondansetron Q6H PRN , pancrelipase 20,000 Units/ sodium bicarbonate 650 mg(#) PRN (Molder Shoulder Pad from Rx) , potassium chloride SR PRN [...] Intake/Output Summary (Last 24 hours) at 12/25/16 5508 Last data filed at 12/25/16 1800 Gross per 24 hour Intake 1565 ml Output 1240 ml Net 325 ml Stool Occurrence: 1 Physical Exam: Blood pressure 132/57, pulse 73, temperature 36.7 C (98 F), height 154.9 cm (61"), weight 56.4 kg (124 lb 5.4 oz), SpO2 97 %. Osbaldo coma score: [...] (Last 24 hours): Glucose: (!) 126 (12/25/16 2186) Radiology and Other Diagnostic Procedures Review: all noted Critical care 50 min Inocencio Haddad Date: 12/25/[phone] * Gurvinder Galicia - 12/25/2016 2:23 PM [...] therapy post acute hospitalization. Therapist: SUZANNE Perez, CF-STEEL HANGER [phone] Date: 12/25/2016 * Carrie Pack, OT - 12/25/2016 11:34 AM CDT OCCUPATIONAL THERAPY PROGRESS NOTE Admitting Diagnosis: large left front hematoma Hemorrhagic stroke (HCC) Patient seen x1 this date. Documentation reflects all daily treatment sessions. Subjective Pertinent Dx per Physician: 66 y.o. female PMH TIA, dementia, osteoporosis, arthritis, chronic back pain, admitted to [facility] with Left frontal IPH on . Patient [...] osteoporosis, arthritis, chronic back pain, admitted to [facility] with ICH on 12/22/16. 12/24 CRANIOTOMY EVACUATION [...] 12/22/2016 Added automatically from request for surgery [id number] Hospital and ICU course: 12/22: admitted to [...] - Keppra 500 mg BID - Hold LAMINATION SPINNER Plavix (placed on after TIA) Sedation/Pain Management: Hx of Chronic back pain - Per Took 10/325mg Hydrocodone q6 hours LAMINATION SPINNER- hold for now, use PRNs if needed [...] bowel regimen, ensure daily BM Heme: -hold LAMINATION SPINNER Plavix and ASA - 12/24 Hgb 10.6 [...] PRN and Respiratory Meds:calcium gluconate IVPB PRN (Molder Shoulder Pad from Rx) AND Ionized Calcium PRN AND [...] (124 lb 5.4 oz), SpO2 99 %. Osbaldo coma score: [...] consulted teams. Ashia Patterson, JAYLA Date: 12/25/[phone] * Nicole Little RN - 12/24/2016 6:55 [...] monitor and address as needed. * Nicole Little RN - 12/24/2016 6:34 PM CDT I [...] PM CDT Patient transported to OR with RN. VSS. * Donna Luque, PT - 12/24/2016 2:13 [...] provide OT intervention as indicated. Therapist: Carrie Pack OTR/Bharati [phone] Date: 12/24/2016 * Inocencio Haddad - [...] 12/22/2016 Added automatically from request for surgery [id number] Miss Phillip is 66y/o female with large [...] watch for hydrocephalus - OT/PT - Hold LAMINATION SPINNER Plavix (placed on after TIA) Sedation/Pain Management: Hx of Chronic back pain - Per Took 10/325mg Hydrocodone q6 hours LAMINATION SPINNER- hold for now, use PRNs if needed [...] bowel regimen, ensure daily BM Heme: hold LAMINATION SPINNER Plavix and ASA - assess for coagulopathy, [...] need for restraints. Disposition/Family: ICU Primary service: ANURAG Consults: RODRIGUE __ SUBJECTIVE Roxy Phillip is a 66 y.o. female. Overnight Events: No new events noted. OBJECTIVE Vital Signs: Last Filed Vital Signs: 24 Hour Range BP: 140/72 (12/24 999) Temp: 36.9 C (98.5 F) (12/25 799) Pulse: 84 (12/24 1000) Respirations: 25 PER [...] PRN and Respiratory Meds:calcium gluconate IVPB PRN (Molder Shoulder Pad from Rx) AND Ionized Calcium PRN AND [...] all noted Critical care 60 minutes Inocencio LacKamp Date: 12/24/[phone] * Gurvinder Galicia - 12/24/2016 10:10 AM CDT SPEECH-LANGUAGE PATHOLOGY NO TREATMENT NOTE Per discussion w/ RN, pt NPO for procedure later this date and remains lethargic w/ decreased arousal. Will f/u 12/25 as pt is appropriate. 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) Dementia TIA (transient ischemic attack) Chronic back pain Off label Hilario, consented, pre op complete, marked CT head 12/23 stable, head CT 12/24 for OR planning Na- 144, On 2% @75, goal 145-155 Keppra LAMINATION SPINNER ASA/Plavix held Q1H neurochecks PT/OT inpatient setting (will need rehab consult) ST, NPO SW for DC planning Prophylaxis: A)GI: PPI B) Lines: No C) Urinary Catheter: No D) Antibiotic Usage: No E) VTE: Pharmacological prophylaxis; Contraindication: Bleeding risk; No SQH large ICH with hx of ASA/Plavix and Mechanical prophylaxis; Sequential compression device F) Restraints: Patient assessed for need for restraints. Angela Soliselsie MARRIAGE AND FAMILY SOCIAL WORKER [phone] Please call [phone] with any questions. * Robbie Singh, MARRIAGE AND FAMILY SOCIAL WORKER - 12/24/2016 7:03 AM CDT Formatting of [...] 12/22/2016 Added automatically from request for surgery [id number] Hospital and ICU course: 12/22: admitted to [...] 500 mg BID - OT/PT - Hold LAMINATION SPINNER Plavix (placed on after TIA) Sedation/Pain Management: Hx of Chronic back pain - Per Took 10/325mg Hydrocodone q6 hours LAMINATION SPINNER- hold for now, use PRNs if needed [...] bowel regimen, ensure daily BM Heme: -hold LAMINATION SPINNER Plavix and ASA - assess for coagulopathy, maintain platelets above 100k, INR <1.5 - Holding anticoagulation ID: - aim for normothermia Temp <38.3 celsius, normothermia protocol if febrile Renal: -BUN/Creat 11/0.70 - Aim for normovolemia - Fung replaced d/t urinary retention Intake/Output Summary (Last 24 hours) at 12/24/16 07 Last data filed at 12/24/16 0600 Gross [...] (12/24 599) O2 Delivery: None (Room Air) (12/24 599) Weight: 55.4 kg (122 lb 2.2 oz) [...] 2 % infusion 75 mL/hr at 12/24/16 0400 PRN and Respiratory Meds:calcium gluconate IVPB PRN (Molder Shoulder Pad from Rx) AND Ionized Calcium PRN AND [...] (122 lb 2.2 oz), SpO2 99 %. Vining coma score: E: 4 - Opens eyes [...] coordination of care with consulted teams. Robbie Boggs Francisco, MARRIAGE AND FAMILY SOCIAL WORKER Date: 12/24/[phone] * Brando Izaguirre RN - 12/23/2016 6:49 [...] will request records for this surgery in [facility] and the subsequent surgery in [facility]. It was not clear if the patient [...] watch for hydrocephalus - OT/PT - Hold LAMINATION SPINNER Plavix (placed on after TIA) Sedation/Pain Management: Hx of Chronic back pain - Per Took 10/325mg Hydrocodone q6 hours LAMINATION SPINNER- hold for now, use PRNs if needed [...] bowel regimen, ensure daily BM Heme: hold LAMINATION SPINNER Plavix and ASA - assess for coagulopathy, [...] PRN and Respiratory Meds:calcium gluconate IVPB PRN (Molder Shoulder Pad from Rx) AND Ionized Calcium PRN AND [...] care 70 minutes Inocencio Haddad Date: 12/23/[phone] * Mikie Ravi RN - 12/23/2016 11:30 AM CDT This [...] arousal. Two attempted swallows were appreciated while STEEL HANGER was providing oral care. Laryngeal elevation appeared [...] osteoporosis, arthritis, chronic back pain, admitted to [facility] with ICH on 12/22/16. This morning her [...] ongoing dysphagia assessment and treatment. Therapist:SUZANNE Perez, CF-STEEL HANGER [phone] Date:12/23/2016 * Kyle Christensen - 12/23/2016 8:30 AM CDT PHYSICAL THERAPY ASSESSMENT MOBILITY: Mobility Progressive Mobility Level: Passive sitting Level of Assistance: Assist X2 Assistive Device: None Time Tolerated: 0-10 minutes Activity Limited By: Mental Status Variability SUBJECTIVE: Subjective Significant hospital events: 66 y.o. female PMH TIA, dementia, osteoporosis, arthritis, chronic back pain, admitted to [facility] with ICH on 12/22/16. Mental / Cognitive [...] ASSESSMENT NOTE Patient Name: Roxy Phillip Room/Bed: [place] [address] Admitting Diagnosis: large left front hematoma Hemorrhagic [...] osteoporosis, arthritis, chronic back pain, admitted to [facility] with Left frontal IPH on . Precautions: [...] Accessibility: Not Accessible Prior Function Level Of [place]: Independent with ADLs and functional transfers;Needed assistance [...] improving. Mary Sultana DO Neurology, PGY-3 Pager [phone] * Robbie Singh, MARRIAGE AND FAMILY SOCIAL WORKER - 12/23/2016 6:27 AM CDT Formatting of this note may be different from the original. Neuroscience Critical [facility] Date: 12/22/2016 LOS: 1 day ASSESSMENT/PLAN [...] 500 mg BID - OT/PT - Hold LAMINATION SPINNER Plavix (placed on after TIA) Sedation/Pain Management: Hx of Chronic back pain - Per Took 10/325mg Hydrocodone q6 hours LAMINATION SPINNER- hold for now, use PRNs if needed [...] bowel regimen, ensure daily BM Heme: hold LAMINATION SPINNER Plavix and ASA - assess for coagulopathy, maintain platelets above 100k, INR <1.5 - Holding anticoagulation ID: - aim for normothermia, Temp <38.3 celsius, normothermia protocol if febrile Renal: -BUN/Creat 11/0.70 - Aim for normovolemia - Fung replaced d/t urinary retention Intake/Output Summary (Last 24 hours) at 12/23/16712 Last data filed at 12/23/16 0200 Gross [...] PRN and Respiratory Meds:calcium gluconate IVPB PRN (Molder Shoulder Pad from Rx) AND Ionized Calcium PRN AND [...] of care with consulted teams Robbie Singh, MARRIAGE AND FAMILY SOCIAL WORKER Date: 12/23/[phone] * Mikie Ravi, RN - 12/22/2016 6:36 [...] 12/22/2016 [place] AC=Airway clearance AM=Aerosolized medication BA=Redwood aerosol DB&C=Deep breathe & cough FEV1=Forced expiratory volume in first second) IC=Inspiratory capacity LE=Lung expansion MDI=Metered dose inhaler Neb=Nebulizer O2=Oxygen Oxim=Oximetry PEFR=Peak expiratory flow rate CLINICAL CARE LEADER=Rapid Response Team * Gurvinder Galicia - 12/22/2016 [...] Ms. Phillip is a 66 y.o. female PMH TIA, dementia, osteoporosis, arthritis, chronic back pain, admitted to [facility] with ICH on 12/22/16. This morning her [...] existing cavity. 3. Continued mass effect and [id number] midline shift, difficult to quantify due to patient motion. Therapist: SUZANNE Perez, CF-STEEL HANGER [phone] Date: 12/22/2016 * Mikie Ravi RN [...] back to ICU at 1538. * Mikie Ravi, VANESSA - 12/22/2016 1:00 PM CDT Patient arrived [...] encounter H&P Notes * Luz Marina Obrien, MSN,MARRIAGE AND FAMILY SOCIAL WORKER - 12/29/2016 9:55 AM CDT Formatting of [...] 0.5% Q4H PRN, calcium gluconate IVPB PRN (Molder Shoulder Pad from Rx) AND Ionized Calcium PRN AND Notify Physician Ongoing, fentaNYL citrate PF Q1H PRN, hydrALAZINE Q6H PRN, HYDROcodone/acetaminophen Q4H PRN, magnesium sulfate PRN AND Magnesium PRN * *AND Notify Physician Ongoing, ondansetron Q6H PRN, pancrelipase 20,000 Units / sodium bicarbonate 650 mg(#) PRN (Molder Shoulder Pad from Rx), potassium chloride SR PRN OR [...] H&P performed on 12/22/16. Luz Marina Obrien, MSN,MARRIAGE AND FAMILY SOCIAL WORKER Pager [phone] * Marcos Herrmann MD - 12/22/2016 10:51 [...] new events noted, sign out obtained from film processing shift supervisor person ( nurse and NSICU physician). Patient [...] PRN and Respiratory Meds:calcium gluconate IVPB PRN (Molder Shoulder Pad from Rx) AND Ionized Calcium PRN AND [...] optimize venous drainage Maintain normothermia, avoid hypoxemia, Rock appropriate osmotherapy ( i.e mannitol vs Hypertonic [...] at risk for aspiration. Social work and patient case coordinator for discharge planning and placement. Family Meeting and update: yes. Patient is unable to make his or her decisions, family updated during rounds. Goals of therapy: Addressed, Patient is a full code Nurses concerns addressed. Disposition/Family: Continue ICU care due to # 1 X Marcos Herrmann MD Stagecraft Teacher, Departments of Neurology and Radiology Pager: [phone] Date: 12/22/2016 X * Ruma Benavidesen, MARRIAGE AND FAMILY SOCIAL WORKER - 12/22/2016 2:09 PM CDT Formatting of [...] cerebral aneurysm or AVM is identified. -Edmundo SUTTON proph -likely unable to be in Hilario Trial 2/2 dementia hx - hold all AC - [address] 11 am tomorrow - keep INR < 1.4, hgb > 7, and plt > 80 - PT/OT/ST -discussed with Dr. Guadarrama __ Chief Complaint: large left frontal parenchymal hemorrhage History of Present Illness: Roxy Phillip is a 66 y.o. female transfer from [facility] with large left frontal parenchymal hemorrhage [...] existing cavity. 3. Continued mass effect and [id number] midline shift, difficult to quantify due to patient motion. 12/22 CTA head 1. No cerebral aneurysm or AVM is identified. 2. Stable large anterior left frontal intraparenchymal hematoma with unchanged rightward frontal midline shift and transalar herniation. Angela Benavides, MARRIAGE AND FAMILY SOCIAL WORKER [phone] in this encounter Consult Notes * [...] and therefore needs a PEG tube for confectionery laboratory manager nutrition. Past Medical History: Diagnosis Date Arthritis Chronic back pain Dementia Osteoporosis TIA (transient ischemic attack) No current facility-administered medications on file prior to encounter. No current outpatient prescriptions on file prior to encounter. Past Surgical History: Procedure Laterality Date HX TONSILLECTOMY HYSTERECTOMY [place]THOPEDIC SURGERY [place] CRANIECTOMY HMTMA SUPRATENTORIAL INTRACEREBRAL Left 12/24/2016 CRANIOTOMY [...] Component Value Date/Time HGB 9.8 (L) 12/30/2016 033 HCT 28.4 (L) 12/30/2016 033 WBC 9.6 12/30/2016 033 INR 1.0 12/22/2016 1345 PLTCT 218 12/30/2016 033 Lab Results Component Value Date/Time NA 141 12/30/2016336 K 4.0 12/30/2016336 CL 111 (H) 12/30/2016336 CO2 24 12/30/2016336 BUN 27 (H) 12/30/2016336 CR 0.69 12/30/2016336 Adam Nicholson MD Personal Pager: # [phone] ATTESTATION I personally observed the resident performing [...] : 1950 Primary Insurance: MEDICARE Secondary Insurance: [facility] Tertiary Insurance: Financial Class: Medicare Date of Admission: 12/22/2016 Referring Physician: Antwan Guadarrama MD Reason for Consult: evaluate for Post-Acute Rehab/Placement Precautions: Fall, aspiration Active Problems IPH s/p crani and evacuation Dementia R hemiplegia Global Aphasia Cognitive deficit Impaired ADLs Impaired mobility Assessment & Plan Roxy Phillip is a 66 y.o. female admitted to [facility] on 12/22/2016 with the following issues: IPH [...] removed prior to consideration for admission to [facility]. PT, OT, ST consulted to address deficits as below Impaired gait/mobility: LAMINATION SPINNER pt was independent at community level without assistive device Currently requiring dependent assist for bed mobility. Mechanical lift for transfers. Will benefit from continued work with PT to address mobility deficits Impaired ADL: LAMINATION SPINNER pt was independent Currently requiring total assist [...] hours while supine in bed, pressure relief [id number] in seated position, PRAFOs for pressure relief [...] concerns. Carla Graf MD Rehab Consult Pager: [phone] History of Present Illness Hospital Course: Roxy Phillip is a 66 y.o. female with PMH of dementia and TIA who presented via transfer from [facility] with large left frontal parenchymal hemorrhage [...] Laterality Date HX TONSILLECTOMY HYSTERECTOMY ORTHOPEDIC SURGERY [place] CRANIECTOMY HMTMA SUPRATENTORIAL INTRACEREBRAL Left 12/24/2016 CRANIOTOMY [...] Meds:acetaminophen Q4H PRN, calcium gluconate IVPB PRN (Molder Shoulder Pad from Rx) AND Ionized Calcium PRN AND Notify Physician Ongoing, fentaNYL citrate PF Q1H PRN, hydrALAZINE Q6H PRN, HYDROcodone/acetaminophen Q4H PRN, magnesium sulfate PRN AND Magnesium PRN AND Notify Physician Ongoing, ondansetron Q6H PRN, pancrelipase 20,000 Units/ sodium bicarbonate 650 mg(#) PRN (Molder Shoulder Pad from Rx), potassium chloride SR PRN OR [...] Shower (12/23/2016 3:00 PM) Patient lives in [place], [place] with her in a house with [...] for safety. TABS alarm and lapbelt on. STEEL HANGER COGNITIVE EVALUATION SUMMARY PRAGMATICS: BEHAVIOR: AUDITORY COMPREHENSION: [...] arousal. Two attempted swallows were appreciated while STEEL HANGER was providing oral care. Laryngeal elevation appeared [...] E43: Chronic illness/Severe malnutrition Estimated Calorie Needs: 9429-4994 (28-30 kcal/kg present wt 55.4kg) Estimated Protein Needs: 65-75 (1.2-1.4g/kg present wt 55.4kg) Oral Diet Order: NPO Comment: 66 y.o. 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 Meets criteria for severe malnutrition in chronic [...] deficits with AMS;stroke Signs & Symptoms: NPO, STEEL HANGER findings, orders for EN consult Goals: Initiate nutrition Time Frame: Within [address] * Abhijeet Chin, MARRIAGE AND FAMILY SOCIAL WORKER - 12/22/2016 1:19 PM CDT Associated Order(s): [...] arthritis , chronic back pain, admitted to [facility] with ICH on 12/22/16. Hospital and ICU [...] - Electrolyte replacement protocol Prophylaxis Review: A)GI: PPI/W4Cevfodf B) Lines: No C) Urinary Catheter: Yes; [...] osteoporosis, arthritis, chronic back pain, admitted to [facility] with ICH on 12/22/16. This morning her [...] Range Temp: 36.8 C (98.2 F) (12/22 131) Weight: 56.1 kg (123 lb 10.9 oz) [...] weight 56.1 kg (123 lb 10.9 oz). Vining coma score: E: 4 - Opens eyes [...] radiologic and diagnostic procedures reviewed. Abhijeet Chin, MARRIAGE AND FAMILY SOCIAL WORKER Date: 12/22/[phone] I spent 60 minutes managing the care [...] Notes * Case Mgmt DC Plan - Betsy Peña - 01/06/2017 1:44 PM CDT Case Management Progress Note NAME:Roxy Phillip :1950 AGE: 66 y.o. ADMISSION DATE: 12/22/2016 DAYS ADMITTED: LOS: 15 days Todays Date: 01/06/2017 Plan: DC to Rehab via stretcher van at 1530. RN Report# [id number] ABBY reviewed EMR for POC and is following for assistance with DC planning. ABBY discussed pt with neurosurgery team. Team reports stability for DC. Pt's sodium levels improved from yesterday and pt more alert than day prior. ABBY attended Neuro-Rehab huddle where pt was discussed. Per rehab physicians, pt appropriate for IPR level of care. Per Rehab Yanelis, anticipate bed availability for pt today. Interventions ? Support Support: Pt/Family Updates re:POC or DC Plan, Counseling for Adaptation to Illness ABBY met with pt's Frank in room. Pt also present and wearing mitts. ABBY reviewed with Frank that Rehab has said that pt would be appropriate for IPR level of care. Additional education provided to Frank regarding IPR level of care , especially in comparison with SNF level of care. Frank reported that he is 90% certain that he and family would have preference for DC plan to [facility] though he wishes to discuss this with [...] right away. Plan for Frank to phone SW when he has had a chance to discuss plan with Soledad. Frank reported feeling better since eating food. SW again stressed the importance of adequate self-care. Frank indicated that he plans to go to a [employer] game tomorrow with his nephew for some time away from the hospital. ABBY received phone call from Frank who reported that after discuss with Soledad and his son, all family is in agreement with plan for DC to [facility]. ABBY answered all necessary questions. ABBY provided [...] Rehabilitation ABBY discussed pt with Yanelis at [facility]. ABBY provided update to Yanelis that family has officially decided on DC plan to [facility]. Ilan mattson to pharmacy picking tech pt at 1530. RN Report# [id number]. ABBY provided update to primary team and [...] Disposition: Inpatient Rehab Facility (IRF) Inpatient Rehab: [facility] ([phone]) ? Next Level Care Betsy Peña LMSW Phone: [phone] * Case Mgmt DC Plan - Mattie [...] RN back with final determination on placement. [phone] - Per Betsy (ABBY), patient's family would like to pursue placement at for IRF level of care. Transportation will be scheduled for 1530 via stretcher van with [facility]. Betsy to notify patient's primary RN of discharge time, rehab bed assignment of 2206 and unit phone# for report [phone]). Please leave in any functioning IV access for transition to 's IP rehab unit. Ryan, Inpatient Admissions Nurse/Rehab. ([phone]). * Care Plan - Angelica Nova, VANESSA [...] ? Discharge Planning Discharge Planning: Inpatient Rehabilitation, Fdc Facility ABBY let a message for Yanelis at [facility], ABBY requested phone call back. ABBY returned a call from Nena Randolph, to provide update on pt. Tomasa requested to be kept update on pt if pt decides to dc there. Tomasa's contact number is [phone] Update 1524 ABBY received a page from Yanelis at [facility] letting ABBY know Yanelis had paged rehab consult team for f/u. ABBY received a page from [facility] letting ABBY know pt would be reviewed again tomorrow but it was looking as if pt was more appropriate for SNF at this time. ? Medication Needs ? Financial ? Legal ? Other Disposition ? Discharge Preparation Type of Residence: Private residence Patient expects to be discharged to: Fdc Facility Was the patient receiving home care services?: No ? Expected Discharge Expected Discharge Date: 01/06/17 ? Discharge Disposition Izabella Roque [phone] * Care Plan - Shakeel Brito RN [...] PER MINUTE (01/04 800) SpO2: 97 % (01/04 800) O2 Delivery: None (Room Air) (01/03 0800) [...] Meds:acetaminophen Q4H PRN, calcium gluconate IVPB PRN (Molder Shoulder Pad from Rx) AND Ionized Calcium PRN AND Notify Physician Ongoing, hydrALAZINE Q6H PRN, HYDROcodone/acetaminophen Q4H PRN, magnesium sulfate PRN AND Magnesium PRN AND Notify Physician Ongoing, ondansetron Q6H PRN, pancrelipase 20,000 Units/ sodium bicarbonate 650 mg(#) PRN (Molder Shoulder Pad from Rx), potassium chloride SR PRN OR [...] note may be different from the original. [address] [place], [place] [address] PATIENT NAME: ROXY PHILLIP MR#/PT#: [id number] Page 2 OPERATIVE REPORT DATE OF OPERATION: 01/02/2017 SURGEON: Jong Hankins MD CONVENTION SERVICES DIRECTOR(S): Calvin Lundberg MD PREOPERATIVE DIAGNOSIS: Dysphagia. POSTOPERATIVE [...] and removed completely by the endoscopist. A 24-Monegasque PEG tube was then secured to the [...] There were no specimens removed. DRAINS: Include 24-Monegasque percutaneous endoscopic gastrostomy. COMPLICATIONS: None. Jong Hankins MD ATTESTATION I performed this procedure with a resident. Staff name: Jong Hankins MD Date: 01/08/2017 Dictated by: Calvin Lundberg MD / MEDQ /[id number] P cc: - Jong Hankins MD * [...] PACU - stable Jong Hankins MD Pager [phone] * Case Mgmt DC Plan - Mariana Betsy - 01/01/2017 4:18 PM CDT Case Management Progress Note NAME:Roxy Phillip :1950 AGE: 66 y.o. ADMISSION DATE: 12/22/2016 DAYS ADMITTED: LOS: 10 days Todays Date: 01/01/2017 Plan: DC planning to inpt setting. ABBY reviewed EMR for POC and is following for assistance with DC planning. ABBY discussed pt with neurosurgery team. MARRIAGE AND FAMILY SOCIAL WORKER notes marked improvement in pt's alertness. Peg was not able to be placed yesterday. Plan for peg placement Thursday. Videoswallow scheduled for Thursday. Disucssion of most appropriate level of care with MARRIAGE AND FAMILY SOCIAL WORKER. MARRIAGE AND FAMILY SOCIAL WORKER in agreement with plan for rehab team follow up on Thursday. Interventions ? Support Support: Pt/Family Updates re:POC or DC Plan, Counseling for Adaptation to Illness ABBY met with pt's Frank in room. Frank indicated that he would like for pt to have more aggressive therapies than [facility] offers. ABBY reviewed new plan for rehab team to follow up with most appropriate level of care recommendations on Thursday. Frank in agreement and voiced that he would want to got to IPR at [facility] in [place], [place]. ABBY provided education that this is actually a SNF. Frank indicated that he thought it was a higher level of care than [facility] due to having Rehab in the name. ABBY provided extensive education on Frank on difference between SNF and IPR including written information. Frank still demonstrating some lack of understanding but did demonstrate significant improvement in the differences between the levels of care with written information. He indicated that he may be hopeful for DC plan to [facility] as he has been very pleased with the care pt has received while at [facility]. He denied further needs at this time. ? Info or Referral ? Discharge Planning Discharge Planning: Inpatient Rehabilitation, Fdc Facility ABBY followed up on referral at [facility]. Medical Stenographer confirmed receipt of the referral but noted that admissions staff were out of the office but would call SW back. ABBY discussed possible rehab team follow up on Thursday with Yanelis at Rehab. In agreement. ? Medication Needs ? Financial ? Legal ? Other Disposition ? Discharge Preparation Type of Residence: Private residence Patient expects to be discharged to: Fdc Facility Was the patient receiving home care services?: No ? Expected Discharge Expected Discharge Date: 01/06/17 ? Discharge Disposition ? Next Level Care Betsy Peña LMSW Phone: [phone] * Case Mgmt DC Plan - Alison Acosta - 12/31/2016 4:11 PM CDT Request to Send Referral Received request from Betsy Peña [facility] to send referral to the following facility: [facility] [address] [place] [id number] Alison Acosta Bankruptcy Paralegal For additional assistance please contact [facility] *[phone] * Case Mgmt DC Plan - Betsy Peña - 12/31/2016 3:59 PM CDT Case Management Progress Note NAME:Roxy Phillip :1950 AGE: 66 y.o. ADMISSION DATE: 12/22/2016 DAYS ADMITTED: LOS: 9 days Todays Date: 12/31/2016 Plan: Referral pending at [facility] SNF. ABBY reviewed EMR for POC and is following for assistance with DC planning. ABBY discussed pt with neurosurgery team. Team reports plan for peg tube placement today. Anticipate stability for DC at the end of the week. Interventions ? Support Support: Pt/Family Updates re:POC or DC Plan, Counseling for Adaptation to Illness ABBY met with pt's Frank in [facility] as pt working with STEEL HANGER. Frank reported that their dtr Soledad has been looking into SNFs for pt and has identified one of interest located in [place], [place]. Frank was unable to remember the name of the facility. Frank inquired into whether Rehab was an option for pt. ABBY educated that presently, the recommendation remains for SNF level of care. Frank verbalized understanding. Frank inquired into transportation to [place] should this be the place that pt ends up DCing to. ABBY reviewed that ABBY would like to discuss this with PT and other parties to ensure that most appropriate plan is arranged. Plan for continued discussion on transportation for pt tomorrow. Frank in agreement. Frank agreeable to plan of ABBY calling Soledad to find out name of facility (suspect it is [facility] from google search) and send referral accordingly. ABBY phoned Soledad who confirmed that name of facility she is most interested in presently is [facility]. She is also agreeable to referral being sent there. She noted that she is trying to find the best care for pt but is unfamiliar with the facilities in [place]. ABBY provided education on Medicare Fdc Compare tool which Soledad indicated she would review this evening. She reported she is agreeable to ABBY follow up tomorrow to see if there are any additional referrals she would like sent. Plan also for ABBY to provide Medicare Fdc compare list to Frank as well as the ratings for [facility] ( not on the initial list as it is over 50 miles from [place], [place]). ABBY presented to pt's room and reviewed with Frank the discussion with Soledad. ABBY provided the FDC compare list for [place] and information specific to [facility]. Frank was very appreciative. ? Info or Referral ? Discharge Planning Discharge Planning: Fdc Facility ABBY discussed pt with Yanelis at Rehab. ABBY discussed pt with PT. Even with pt's progress with therapies, PT still believes SNF is most appropriate for pt. ABBY tasked YARD HAND to send referral to [facility] SNF. ? Medication Needs ? Financial ? Legal ? Other Disposition ? Discharge Preparation Type of Residence: Private residence Patient expects to be discharged to: Fdc Facility Was the patient receiving home care services?: No ? Expected Discharge Expected Discharge Date: 01/02/17 ? Discharge Disposition ? Next Level Care Betsy Peña LMSW Phone: [phone] * Case Mgmt DC Plan - Betsy [...] residence Patient expects to be discharged to: Fdc Facility Was the patient receiving home care services?: No ? Expected Discharge Expected Discharge Date: 01/02/17 ? Discharge Disposition ? Next Level Care Betsy Peña LMSW Phone: [phone] * Critical Results - Delaney Lechuga RN - 12/27/2016 3:15 PM CDT Critical result or procedure called (document test and value, and read back): Blood culture drawn 12/26/16 from Left Forearm grew gram + cocci resembling staph Time MD/OIL BURNER JOURNEYMAN Notified: 1510 MD/OIL BURNER JOURNEYMAN Name: Terry Chin MD/OIL BURNER JOURNEYMAN Response/Orders Given: No new orders at this time * Case Mgmt DC Plan - Betsy Peña - 12/26/2016 1:55 PM CDT Case Management Progress Note NAME:Roxy Phlilip :1950 AGE: 66 y.o. ADMISSION DATE: 12/22/2016 [...] doing well and had just come from [facility] to obtain more necessities for while he is staying at [facility] with pt. Frank reported that his nieces are flying in this weekend and his dtr is coming up from [facility] this afternoon for the remainder of the weekend. Frank endorsed feeling well supported during this time. Denied needs prior to the weekend. ? Info or Referral ? Discharge Planning ? Medication Needs ? Financial ? Legal ? Other Disposition ? Discharge Preparation Type of Residence: Private residence Patient expects to be discharged to: Fdc Facility Was the patient receiving home care services?: No ? Expected Discharge Expected Discharge Date: 12/30/16 ? Discharge Disposition ? Next Level Care Betsy Peña LMSW Phone: [phone] * Anesthesia Post Op Day 1 - Yanely Lindsey, RICA - 12/25/2016 10:36 AM CDT Formatting of [...] PRN and Respiratory Meds:calcium gluconate IVPB PRN (Molder Shoulder Pad from Rx) AND Ionized Calcium PRN AND [...] different from the original. NEUROSURGERY OPERATIVE REPORT [facility] [address] [place], [place] [address] PATIENT NAME: Roxy Phillip MR#/PT#: [id number] DATE OF OPERATION: 12/25/16 SURGEON: Antwan Guadarrama MD CO-SURGEON: None CONVENTION SERVICES DIRECTOR(S): Suman Franco MD PREOPERATIVE DIAGNOSIS: 1. Intraparenchymal hemorrhage of brain (HCC) [I61.9] POSTOPERATIVE DIAGNOSIS: Same. OPERATIVE PROCEDURE: 1. Left frontal burrhole craniotomy for evacuation of ICH 2. Use of neuronavigation for stereotactic implantation of EVD ANESTHESIA: General INDICATIONS FOR OPERATIVE PROCEDURE: Please see full dictated H and P. Briefly, Roxy Phillip is a 66 y.o. female transfer from [facility] with large left frontal parenchymal hemorrhage [...] padded. Patient's head was placed in the [place] cranial tongs secured the bed with the bed attachment. The head was turned towards the right side in the apparatus for exposure of the left frontal region at the highest point of the exposure. BrainLab reference star was attached to the [place] in the patient's preoperative CT was utilized [...] silk stitch. Patient was removed from the [place] cranial tongs and taken to the ICU [...] I performed this procedure with a resident. [facility] Staff name: Antwan Guadarrama MD Date: 01/08/2017 Attending: Antwan Guadarrama MD Dictated by: Suman Franco MD * Care Plan - Caitlin Viera, RN - 12/24/2016 4:28 PM CDT Problem: [...] had forgotten to bring his medications to [facility] and had not taken any for a [...] SW reviewed need for self-care while at [facility]. SW inquired into Frank's ongoing support system. Frank reported that his dtr is still at [facility] which he finds very helpful. He also [...] Next Level Care Betsy Peña LMSW Phone: [phone] * Case Mgmt DC Plan - VelvetCesia orozcoaret - 12/23/2016 1:55 PM CDT Formatting of [...] Extended Emergency Contact Information Primary Emergency Contact: [place] [address] [facility] Relation: Spouse Secondary Emergency Contact: KenjiSoledad [facility] Relation: Daughter DPOA None. Transportation Does the patient need discharge transport arranged?: No Transportation Name, Phone and Availability #1: Soledad ([phone]) Does the patient use Medicaid Transportation?: No [...] (BCBS) Additional Coverage: RX (Fills medications at [facility] in [place]. Reports medications are affordable.) SW scanned BCBS card and tubed to admitting. ? Source of Income Source Of Income: Other halfway income ? Financial Assistance Needed? No Current/Previous [...] ? Outpatient Therapy PT: No OT: No STEEL HANGER: No ? SNF/NH SNF: No NH: No [...] Drug Use No Betsy Peña LMSW Phone: [phone] in this encounter Plan of Treatment Not [...] 01/02/2017 Dysphagia TUBE PERCUTANEOUS 5:05 PM CDT in this encounter Results * ECG-SCAN (01/18/2017 [...] MG/DL Specimen Performing Laboratory MAIN LAB [address] [place] [address] * POC GLUCOSE (01/06/2017 7:35 AM) Component Value Ref Range Glucose, POC 226 (H) 70 - 100 MG/DL Specimen Performing Laboratory MAIN LAB [address] [place] [address] * CBC AND DIFF (01/06/2017 5:54 AM) [...] K/UL Specimen Performing Laboratory Blood MAIN LAB [address] [place] [address] * BASIC METABOLIC PANEL (01/06/2017 5:54 AM) [...] questions. Specimen Performing Laboratory Blood MAIN LAB [address] [place] [address] * PHOSPHORUS (01/06/2017 5:54 AM) Component Value Ref Range Phosphorus 3.6 2.0 - 4.0 MG/DL Specimen Performing Laboratory Blood MAIN LAB [address] [place], [place] [id number] * MAGNESIUM (01/06/2017 5:54 AM) Component Value Ref Range Magnesium 2.4 1.6 - 2.6 mg/dL Specimen Performing Laboratory Blood [facility] [address] [place] [address] * IONIZED CALCIUM (01/06/2017 5:54 AM) Component Value Ref Range Ionized Calcium 1.20 1.0 - 1.3 MMOL/L Specimen Performing Laboratory Blood [facility] [address] [place], [place] [id number] * POC GLUCOSE (01/06/2017 2:46 AM) Component Value Ref Range Glucose, POC 194 (H) 70 - 100 MG/DL Specimen Performing Laboratory MAIN LAB [address] [place] [address] * POC GLUCOSE (01/05/2017 8:30 PM) Component Value Ref Range Glucose, POC 209 (H) 70 - 100 MG/DL Specimen Performing Laboratory MAIN LAB [address] [place], [place] [id number] * POC GLUCOSE (01/05/2017 6:08 PM) Component Value Ref Range Glucose, POC 176 (H) 70 - 100 MG/DL Specimen Performing Laboratory MAIN LAB [address] [place] [address] * SWALLOW MOTION SERIES (01/05/2017 2:45 PM) [...] organisms/ml ENTEROCOCCUS FAECALIS Specimen Performing Laboratory Urine [facility] MAIN LAB [address] [place] [address] Organism Antibiotic Method Susceptibility >100,000 organisms/ml Nitrofurantoin [...] LABEL Specimen Performing Laboratory Urine MAIN LAB [address] [place] [address] * URINALYSIS MICROSCOPIC REFLEX TO CULTURE (01/05/2017 [...] 0 - 5 Specimen Performing Laboratory Urine [facility] LAB [address] [place] [address] * URINALYSIS DIPSTICK REFLEX TO CULTURE (01/05/2017 1:11 PM) Component Value Ref Range Color,UA YELLOW Turbidity,UA 1+ (A) CLEAR-CLEAR Specific [place]-Urine 1.021 1.003 - 1.035 pH,UA 6.0 5.0 [...] result. Specimen Performing Laboratory Urine MAIN LAB [address] [place] [address] * POC GLUCOSE (01/05/2017 12:21 PM) Component Value Ref Range Glucose, POC 319 (H) 70 - 100 MG/DL Specimen Performing Laboratory MAIN LAB [address] [place] [address] * POC GLUCOSE (01/05/2017 8:19 AM) Component Value Ref Range Glucose, POC 170 (H) 70 - 100 MG/DL Specimen Performing Laboratory MAIN LAB [address] [place] [address] * PHOSPHORUS (01/05/2017 5:35 AM) Component Value Ref Range Phosphorus 3.7 2.0 - 4.0 MG/DL Specimen Performing Laboratory Blood MAIN LAB [address] [place] [address] * MAGNESIUM (01/05/2017 5:35 AM) Component Value Ref Range Magnesium 2.6 1.6 - 2.6 mg/dL Specimen Performing Laboratory Blood MAIN LAB [address] [place] [address] * CBC AND DIFF (01/05/2017 5:35 AM) [...] Specimen Performing Laboratory Blood MAIN LAB [address] [place] [address] * BASIC METABOLIC PANEL (01/05/2017 5:35 AM) [...] questions. Specimen Performing Laboratory Blood MAIN LAB [address] [place] [address] * IONIZED CALCIUM (01/05/2017 4:00 AM) Component Value Ref Range Ionized Calcium 1.20 1.0 - 1.3 MMOL/L Specimen Performing Laboratory Blood [facility] [address] [place] [address] * POC GLUCOSE (01/05/2017 3:43 AM) Component Value Ref Range Glucose, POC 256 (H) 70 - 100 MG/DL Specimen Performing Laboratory [facility] [address] [place] [address] * POC GLUCOSE (01/04/2017 8:23 PM) Component Value Ref Range Glucose, POC 224 (H) 70 - 100 MG/DL Specimen Performing Laboratory [facility] [address] [place], [place] [id number] * POC GLUCOSE (01/04/2017 4:35 PM) Component Value Ref Range Glucose, POC 241 (H) 70 - 100 MG/DL Specimen Performing Laboratory [facility] [address] [place] [address] * POC GLUCOSE (01/04/2017 12:44 PM) Component Value Ref Range Glucose, POC 272 (H) 70 - 100 MG/DL Specimen Performing Laboratory [facility] [address] [place] [address] * POC GLUCOSE (01/04/2017 7:55 AM) Component Value Ref Range Glucose, POC 241 (H) 70 - 100 MG/DL Specimen Performing Laboratory [facility] [address] [place] [address] * PHOSPHORUS (01/04/2017 4:52 AM) Component Value Ref Range Phosphorus 3.8 2.0 - 4.0 MG/DL Specimen Performing Laboratory Blood [facility] [address] [place] [address] * MAGNESIUM (01/04/2017 4:52 AM) Component Value Ref Range Magnesium 2.6 1.6 - 2.6 mg/dL Specimen Performing Laboratory Blood [facility] MAIN LAB [address] [place] [address] * IONIZED CALCIUM (01/04/2017 4:52 AM) Component Value Ref Range Ionized Calcium 1.20 1.0 - 1.3 MMOL/L Specimen Performing Laboratory Blood MAIN LAB [address] [place] [address] * CBC AND DIFF (01/04/2017 4:52 AM) [...] Specimen Performing Laboratory Blood MAIN LAB [address] [place] [address] * BASIC METABOLIC PANEL (01/04/2017 4:52 AM) [...] Pharmacist for questions. Specimen Performing Laboratory Blood [facility] [address] [place] [address] * POC GLUCOSE (01/04/2017 4:09 AM) Component Value Ref Range Glucose, POC 194 (H) 70 - 100 MG/DL Specimen Performing Laboratory [facility] [address] [place] [address] * POC GLUCOSE (01/03/2017 8:39 PM) Component Value Ref Range Glucose, POC 124 (H) 70 - 100 MG/DL Specimen Performing Laboratory [facility] [address] [place], [place] [address] 187[address] * POC GLUCOSE (01/03/2017 4:53 PM) Component Value Ref Range Glucose, POC 142 (H) 70 - 100 MG/DL Specimen Performing Laboratory [facility] [address] [place] [address] 03533 * POC GLUCOSE (01/03/2017 12:22 PM) Component Value Ref Range Glucose, POC 139 (H) 70 - 100 MG/DL Specimen Performing Laboratory [facility] [address] [place] [address] 66517 * IONIZED CALCIUM (01/03/2017 9:48 AM) Component Value Ref Range Ionized Calcium 1.18 1.0 - 1.3 MMOL/L Specimen Performing Laboratory [facility] [address] [place] [address] 78780 * PHOSPHORUS (01/03/2017 9:33 AM) Component Value Ref Range Phosphorus 5.0 (H) 2.0 - 4.0 MG/DL Specimen Performing Laboratory Blood [facility] [address] [place] [address] 63005 * MAGNESIUM (01/03/2017 9:33 AM) Component Value Ref Range Magnesium 2.8 (H) 1.6 - 2.6 mg/dL Specimen Performing Laboratory Blood [facility] [address] [place], [place] [id number] * CBC AND DIFF (01/03/2017 9:33 AM) [...] Specimen Performing Laboratory Blood MAIN LAB [address] [place] [address] * BASIC METABOLIC PANEL (01/03/2017 9:33 AM) [...] Specimen Performing Laboratory Blood MAIN LAB [address] [place] [address] * POC GLUCOSE (01/03/2017 8:32 AM) Component Value Ref Range Glucose, POC 133 (H) 70 - 100 MG/DL Specimen Performing Laboratory [facility] [address] [place] [address] 84823 * POC GLUCOSE (01/02/2017 9:10 PM) Component Value Ref Range Glucose, POC 116 (H) 70 - 100 MG/DL Specimen Performing Laboratory [facility] [address] [place] [address] 97245 * POC GLUCOSE (01/02/2017 4:44 PM) Component Value Ref Range Glucose, POC 137 (H) 70 - 100 MG/DL Specimen Performing Laboratory [facility] [address] [place] [address] 14483 * POC GLUCOSE (01/02/2017 11:36 AM) Component Value Ref Range Glucose, POC 197 (H) 70 - 100 MG/DL Specimen Performing Laboratory [facility] [address] [place] [address] 10290 * POC GLUCOSE (01/02/2017 8:53 AM) Component Value Ref Range Glucose, POC 146 (H) 70 - 100 MG/DL Specimen Performing Laboratory [facility] [address] [place] [address] 19690 * IONIZED CALCIUM (01/02/2017 5:00 AM) Component Value Ref Range Ionized Calcium 0.99 (L)Comment: CHECKED 1.0 - 1.3 MMOL/L Specimen Performing Laboratory Blood [facility] [address] [place] [address] 56021 * PHOSPHORUS (01/02/2017 4:59 AM) Component Value Ref Range Phosphorus 4.5 (H) 2.0 - 4.0 MG/DL Specimen Performing Laboratory Blood [facility] [address] [place], [place] [id number] * MAGNESIUM (01/02/2017 4:59 AM) Component Value Ref Range Magnesium 2.7 (H) 1.6 - 2.6 mg/dL Specimen Performing Laboratory Blood [facility] [address] [place], [place] [id number] * CBC AND DIFF (01/02/2017 4:59 AM) [...] K/UL Specimen Performing Laboratory Blood MAIN [facility] [address] [place] [address] 80110 * BASIC METABOLIC PANEL (01/02/2017 4:59 AM) [...] Specimen Performing Laboratory Blood MAIN [facility] [address] [place] [address] * POC GLUCOSE (01/01/2017 8:32 PM) Component Value Ref Range Glucose, POC 182 (H) 70 - 100 MG/DL Specimen Performing Laboratory MAIN LAB [address] [place] [address] * POC GLUCOSE (01/01/2017 5:49 PM) Component Value Ref Range Glucose, POC 221 (H) 70 - 100 MG/DL Specimen Performing Laboratory MAIN LAB [address] [place] [address] * POC GLUCOSE (01/01/2017 12:02 PM) Component Value Ref Range Glucose, POC 189 (H) 70 - 100 MG/DL Specimen Performing Laboratory MAIN LAB [address] [place] [address] 23114 * POC GLUCOSE (01/01/2017 8:06 AM) Component Value Ref Range Glucose, POC 231 (H) 70 - 100 MG/DL Specimen Performing Laboratory MAIN LAB [address] [place] [address] 55805 * PHOSPHORUS (01/01/2017 5:07 AM) Component Value Ref Range Phosphorus 3.5 2.0 - 4.0 MG/DL Specimen Performing Laboratory Blood MAIN [facility] [address] [place] [address] 51789 * MAGNESIUM (01/01/2017 5:07 AM) Component Value Ref Range Magnesium 2.6 1.6 - 2.6 mg/dL Specimen Performing Laboratory Blood MAIN LAB [address] [place] [address] 44211 * IONIZED CALCIUM (01/01/2017 5:07 AM) Component Value Ref Range Ionized Calcium 1.15 1.0 - 1.3 MMOL/L Specimen Performing Laboratory Blood MAIN [facility] [address] [place] [address] 68500 * CBC AND DIFF (01/01/2017 5:07 AM) [...] K/UL Specimen Performing Laboratory Blood [facility]IN [facility] [address] [place] [address] 73336 * BASIC METABOLIC PANEL (01/01/2017 5:07 AM) [...] questions. Specimen Performing Laboratory Blood MAIN [facility] [address] [place] [address] 56071 * POC GLUCOSE (01/01/2017 4:00 AM) Component Value Ref Range Glucose, POC 191 (H) 70 - 100 MG/DL Specimen Performing Laboratory [facility] [address] [place] [address] 70608 * POC GLUCOSE (12/31/2016 8:29 PM) Component Value Ref Range Glucose, POC 132 (H) 70 - 100 MG/DL Specimen Performing Laboratory MAIN LAB [address] [place] [address] 70440 * POC GLUCOSE (12/31/2016 5:21 PM) Component Value Ref Range Glucose, POC 149 (H) 70 - 100 MG/DL Specimen Performing Laboratory MAIN LAB [address] [place] [address] 20011 * POC GLUCOSE (12/31/2016 1:11 PM) Component Value Ref Range Glucose, POC 162 (H) 70 - 100 MG/DL Specimen Performing Laboratory MAIN LAB [address] [place] [address] 68339 * POC GLUCOSE (12/31/2016 8:53 AM) Component Value Ref Range Glucose, POC 134 (H) 70 - 100 MG/DL Specimen Performing Laboratory MAIN LAB [address] [place] [address] 47650 * PHOSPHORUS (12/31/2016 5:25 AM) Component Value Ref Range Phosphorus 3.5 2.0 - 4.0 MG/DL Specimen Performing Laboratory Blood MAIN [facility] [address] [place] [address] 26904 * MAGNESIUM (12/31/2016 5:25 AM) Component Value Ref Range Magnesium 2.3 1.6 - 2.6 mg/dL Specimen Performing Laboratory Blood [facility]IN [facility] [address] [place] [address] 82425 * IONIZED CALCIUM (12/31/2016 5:25 AM) Component Value Ref Range Ionized Calcium 1.12 1.0 - 1.3 MMOL/L Specimen Performing Laboratory Blood MAIN [facility] [address] [place] [address] 05290 * CBC AND DIFF (12/31/2016 5:25 AM) [...] K/UL Specimen Performing Laboratory Blood [facility]IN [facility] [address] [place] [address] 69479 * BASIC METABOLIC PANEL (12/31/2016 5:25 AM) [...] questions. Specimen Performing Laboratory Blood [facility]IN [facility] [address] [place] [address] 25646 * POC GLUCOSE (12/31/2016 4:11 AM) Component Value Ref Range Glucose, POC 121 (H) 70 - 100 MG/DL Specimen Performing Laboratory MAIN LAB [address] [place] [address] 48139 * POC GLUCOSE (12/30/2016 8:41 PM) Component Value Ref Range Glucose, POC 151 (H) 70 - 100 MG/DL Specimen Performing Laboratory MAIN LAB [address] [place] [address] 16267 * POC GLUCOSE (12/30/2016 5:43 PM) Component Value Ref Range Glucose, POC 159 (H) 70 - 100 MG/DL Specimen Performing Laboratory MAIN LAB [address] [place] [address] 35294 * US DOPPLER VENOUS BILATERAL (12/30/2016 1:20 [...] MG/DL Specimen Performing Laboratory MAIN LAB [address] [place] [address] * POC GLUCOSE (12/30/2016 7:51 AM) Component Value Ref Range Glucose, POC 143 (H) 70 - 100 MG/DL Specimen Performing Laboratory MAIN LAB [address] [place] [address] * IONIZED CALCIUM (12/30/2016 3:37 AM) Component Value Ref Range Ionized Calcium 1.01 1.0 - 1.3 MMOL/L Specimen Performing Laboratory Blood MAIN LAB [address] [place] [address] * PHOSPHORUS (12/30/2016 3:37 AM) Component Value Ref Range Phosphorus 4.3 (H) 2.0 - 4.0 MG/DL Specimen Performing Laboratory Blood MAIN LAB [address] [place] [address] * MAGNESIUM (12/30/2016 3:37 AM) Component Value Ref Range Magnesium 2.2 1.6 - 2.6 mg/dL Specimen Performing Laboratory Blood MAIN LAB [address] [place] [address] * CBC AND DIFF (12/30/2016 3:37 AM) [...] Specimen Performing Laboratory Blood MAIN [facility] [address] [place] [address] * BASIC METABOLIC PANEL (12/30/2016 3:37 AM) [...] questions. Specimen Performing Laboratory Blood [facility]IN [facility] [address] [place] [address] 20961 * POC GLUCOSE (12/30/2016 3:27 AM) Component Value Ref Range Glucose, POC 196 (H) 70 - 100 MG/DL Specimen Performing Laboratory MAIN LAB [address] [place] [address] 26365 * POC GLUCOSE (12/29/2016 8:38 PM) Component Value Ref Range Glucose, POC 148 (H) 70 - 100 MG/DL Specimen Performing Laboratory MAIN LAB [address] [place] [address] 51044 * POC GLUCOSE (12/29/2016 5:25 PM) Component Value Ref Range Glucose, POC 165 (H) 70 - 100 MG/DL Specimen Performing Laboratory MAIN LAB [address] [place] [address] 46154 * SODIUM (12/29/2016 4:55 PM) Component Value Ref Range Sodium 142 137 - 147 MMOL/L Specimen Performing Laboratory Blood [facility]IN [facility] [address] [place] [address] 21186 * POC GLUCOSE (12/29/2016 12:04 PM) Component Value Ref Range Glucose, POC 109 (H) 70 - 100 MG/DL Specimen Performing Laboratory MAIN LAB [address] [place] [address] 55675 * IR ARTERIOGRAM NEURO (12/29/2016 11:09 AM) [...] recurrent hemorrhage in the left frontal region. DEBURRER MACHINE. Laurent CON[employer]ION SERVICES DIRECTOR. 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 Local with Sedation PROCEDURE. Ultrasound [...] insure maintain an air free system. A 5-Monegasque diagnostic catheter was introduced through the sheath. Utilizing a combination of roadmap, guidewire and direct catheter access techniques, a 5 [place]gas[place] diagnostic catheter was used to perform diagnostic [...] recurrent hemorrhage in the left frontal region. DEBURRER MACHINE. Laurent [employer]ION SERVICES DIRECTOR. 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 Local with Sedation PROCEDURE. Ultrasound [...] insure maintain an air free system. A 5-[place]onegasque diagnostic catheter was introduced through the sheath. Utilizing a combination of roadmap, guidewire and direct catheter access techniques, a 5 [place] diagnostic catheter was used to perform diagnostic [...] 100 MG/DL Specimen Performing Laboratory MAIN LAB [address] [place], [place] [id number] * IONIZED CALCIUM (12/29/2016 4:23 AM) Component Value Ref Range Ionized Calcium 1.11 1.0 - 1.3 MMOL/L Specimen Performing Laboratory Blood MAIN LAB [address] [place], [place] [id number] * PHOSPHORUS (12/29/2016 4:23 AM) Component Value Ref Range Phosphorus 3.5 2.0 - 4.0 MG/DL Specimen Performing Laboratory Blood MAIN LAB [address] [place], [place] [id number] * MAGNESIUM (12/29/2016 4:23 AM) Component Value Ref Range Magnesium 2.2 1.6 - 2.6 mg/dL Specimen Performing Laboratory Blood MAIN LAB [address] [place] [address] * CBC AND DIFF (12/29/2016 4:23 AM) [...] K/UL Specimen Performing Laboratory Blood MAIN [facility] [address] [place] [address] * BASIC METABOLIC PANEL (12/29/2016 4:23 AM) [...] Specimen Performing Laboratory Blood MAIN [facility] [address] [place], [place] [id number] * POC GLUCOSE (12/29/2016 4:08 AM) Component Value Ref Range Glucose, POC 145 (H) 70 - 100 MG/DL Specimen Performing Laboratory MAIN LAB [address] [place] [address] 44166 * SODIUM (12/28/2016 9:53 PM) Component Value Ref Range Sodium 147 137 - 147 MMOL/L Specimen Performing Laboratory Blood [facility]IN [facility] [address] [place] [address] 32994 * POC GLUCOSE (12/28/2016 8:30 PM) Component Value Ref Range Glucose, POC 134 (H) 70 - 100 MG/DL Specimen Performing Laboratory MAIN LAB [address] [place], [place] [id number] * MRI HEAD WO/W CONTRAST (12/28/2016 7:15 [...] 100 MG/DL Specimen Performing Laboratory MAIN LAB [address] [place] [address] 62906 * SODIUM (12/28/2016 4:18 PM) Component Value Ref Range Sodium 152 (H) 137 - 147 MMOL/L Specimen Performing Laboratory Blood [facility]IN [facility] [address] [place] [address] 41699 * MAGNESIUM (12/28/2016 1:09 PM) Component Value Ref Range Magnesium 2.2 1.6 - 2.6 mg/dL Specimen Performing Laboratory Blood MAIN [facility] [address] [place] [address] 88560 * POTASSIUM (12/28/2016 1:09 PM) Component Value Ref Range Potassium 4.1 3.5 - 5.1 MMOL/L Specimen Performing Laboratory Blood MAIN [facility] [address] [place] [address] 38588 * POC GLUCOSE (12/28/2016 12:22 PM) Component Value Ref Range Glucose, POC 141 (H) 70 - 100 MG/DL Specimen Performing Laboratory MAIN LAB [address] [place] [address] 01459 * CTA NECK WO/W CONTRAST+POST P (12/28/2016 [...] the pharynx. Visualized major branches of the [place] are patent without evidence of [...] the pharynx. Visualized major branches of the [place] are patent without evidence of [...] - 5.1 MMOL/L Specimen Performing Laboratory Blood [facility] [address] [place] [address] 24085 * SODIUM (12/28/2016 9:53 AM) Component Value Ref Range Sodium 142 137 - 147 MMOL/L Specimen Performing Laboratory Blood [facility] [address] [place] [address] 53290 * POC GLUCOSE (12/28/2016 9:04 AM) Component Value Ref Range Glucose, POC 170 (H) 70 - 100 MG/DL Specimen Performing Laboratory [facility] [address] [place] [address] 53838 * POC GLUCOSE (12/28/2016 4:02 AM) Component Value Ref Range Glucose, POC 159 (H) 70 - 100 MG/DL Specimen Performing Laboratory [facility] [address] [place], [place] [id number] * IONIZED CALCIUM (12/28/2016 3:35 AM) Component Value Ref Range Ionized Calcium 1.09 1.0 - 1.3 MMOL/L Specimen Performing Laboratory Blood [facility] [address] [place], [place] [id number] * PHOSPHORUS (12/28/2016 3:35 AM) Component Value Ref Range Phosphorus 3.7 2.0 - 4.0 MG/DL Specimen Performing Laboratory Blood [facility] [address] [place], [place] [id number] * MAGNESIUM (12/28/2016 3:35 AM) Component Value Ref Range Magnesium 1.9 1.6 - 2.6 mg/dL Specimen Performing Laboratory Blood [facility] [address] [place], [place] [id number] * CBC AND DIFF (12/28/2016 3:35 AM) [...] K/UL Specimen Performing Laboratory Blood [facility]IN [facility] [address] [place] [address] 65213 * BASIC METABOLIC PANEL (12/28/2016 3:35 AM) [...] questions. Specimen Performing Laboratory Blood [facility] [address] [place] [address] 23492 * SODIUM (12/27/2016 11:04 PM) Component Value Ref Range Sodium 142 137 - 147 MMOL/L Specimen Performing Laboratory Blood MAIN [facility] [address] [place] [address] 12734 * PROCALCITONIN (12/27/2016 11:04 PM) Component Value Ref Range Procalcitonin <0.05 <0.10 NG/ML Specimen Performing Laboratory Blood MAIN [facility] [address] [place] [address] 53407 * POC GLUCOSE (12/27/2016 9:00 PM) Component Value Ref Range Glucose, POC 151 (H) 70 - 100 MG/DL Specimen Performing Laboratory MAIN LAB [address] [place] [address] 82521 * POC GLUCOSE (12/27/2016 5:53 PM) Component Value Ref Range Glucose, POC 135 (H) 70 - 100 MG/DL Specimen Performing Laboratory [facility] [address] [place] [address] * SODIUM (12/27/2016 4:39 PM) Component Value Ref Range Sodium 145 137 - 147 MMOL/L Specimen Performing Laboratory Blood [facility] [address] [place] [address] * PROCALCITONIN (12/27/2016 10:43 AM) Component Value Ref Range Procalcitonin <0.05 <0.10 NG/ML Specimen Performing Laboratory Blood [facility] [address] [place] [address] * SODIUM (12/27/2016 10:43 AM) Component Value Ref Range Sodium 148 (H) 137 - 147 MMOL/L Specimen Performing Laboratory Blood MAIN [facility] [address] [place] [address] * CT HEAD WO CONTRAST (12/27/2016 10:12 [...] Performing Laboratory Blood [facility] [address] [place] [address] * PHOSPHORUS (12/27/2016 3:56 AM) Component Value Ref Range Phosphorus 1.6 (L) 2.0 - 4.0 MG/DL Specimen Performing Laboratory Blood MAIN [facility] [address] [place] [address] * MAGNESIUM (12/27/2016 3:56 AM) Component Value Ref Range Magnesium 1.9 1.6 - 2.6 mg/dL Specimen Performing Laboratory Blood MAIN [facility] [address] [place] [address] * CBC AND DIFF (12/27/2016 3:56 AM) [...] Specimen Performing Laboratory Blood MAIN [facility] [address] [place] [address] * BASIC METABOLIC PANEL (12/27/2016 3:56 AM) [...] Performing Laboratory Blood [facility] [address] [place] [address] * POTASSIUM (12/26/2016 9:58 PM) Component Value Ref Range Potassium 4.3 3.5 - 5.1 MMOL/L Specimen Performing Laboratory Blood [facility] [address] [place] [address] 95001 * SODIUM (12/26/2016 9:58 PM) Component Value Ref Range Sodium 154 (H) 137 - 147 MMOL/L Specimen Performing Laboratory Blood [facility] [address] [place] [address] 07426 * POTASSIUM (12/26/2016 4:11 PM) Component Value Ref Range Potassium 3.4 (L) 3.5 - 5.1 MMOL/L Specimen Performing Laboratory Blood [facility] [address] [place] [address] 19631 * SODIUM (12/26/2016 4:11 PM) Component Value Ref Range Sodium 156 (H) 137 - 147 MMOL/L Specimen Performing Laboratory [facility] [address] [place] [address] 06270 * CHEST SINGLE VIEW (12/26/2016 2:22 PM) [...] hemidiaphragm with the tip not in the [id number]. Heart size and pulmonary vasculature are within normal limits. No consolidation, pleural effusion, or pneumothorax. ACDF is noted. Partially visualized posterior spinal fixation hardware. Procedure Note Interface, Radiant Results - 12/26/2016 4:44 PM CDT CHEST SINGLE VIEW History: fever. Comparison: Chest radiograph from December 24, 2016. Findings: Enteric tube is in place coursing below the left hemidiaphragm with the tip not in the [id number]-vq-[id number]. Heart size and pulmonary vasculature are within [...] Specimen Performing Laboratory Urine MAIN LAB [address] [place] [address] * URINALYSIS MICROSCOPIC REFLEX TO CULTURE (12/26/2016 12:37 PM) Component Value Ref Range WBCs,UA 0-2 0 - 2 /HPF RBCs,UA 2-10 0 - 3 /HPF Comment,UA Urine submitted for reflex culture if criteria are met:WBC>10, positive nitrite and/or >=1+ leukocyte esterase. If quantity is not sufficient, an addendum will follow. MucousUA TRACE Specimen Performing Laboratory Urine MAIN LAB [address] [place] [address] * URINALYSIS DIPSTICK REFLEX TO CULTURE (12/26/2016 12:37 PM) Component Value Ref Range Color,UA YELLOW Turbidity,UA CLEAR CLEAR-CLEAR Specific [place]-Urine 1.017 1.003 - 1.035 pH,UA 8.0 5.0 - 8.0 Protein,UA 1+ (A) NEG-NEG Glucose,UA NEG NEG-NEG Ketones,UA NEG NEG-NEG Bilirubin,UA NEG NEG-NEG Blood,UA 1+ (A) NEG-NEG Urobilinogen,UA NORMAL NORM-NORMAL Nitrite,UA NEG NEG-NEG Leukocytes,UA NEG NEG-NEG Urine Ascorbic Acid, UA NEG NEG-NEG Specimen Performing Laboratory Urine MAIN LAB [address] [place] [address] 43098 * CULTURE-BLOOD W/SENSITIVITY (12/26/2016 12:37 PM) Component [...] 01/01/2017 Specimen Performing Laboratory Blood MAIN LAB [address] [place] [address] 97144 * CULTURE-BLOOD W/SENSITIVITY (12/26/2016 12:37 PM) Component Value Ref Range Battery Name BLOOD CULTURE Specimen Description BLOOD LEFT ANTECUBITAL Special Requests NONE Culture NO GROWTH 5 DAYS Report Status FINAL 01/01/2017 Specimen Performing Laboratory Blood [facility] [address] [place] [address] 57073 * POTASSIUM (12/26/2016 10:30 AM) Component Value Ref Range Potassium 3.4 (L) 3.5 - 5.1 MMOL/L Specimen Performing Laboratory Blood MAIN [facility] [address] [place] [address] 58759 * SODIUM (12/26/2016 10:30 AM) Component Value Ref Range Sodium 152 (H) 137 - 147 MMOL/L Specimen Performing Laboratory Blood MAIN LAB [address] [place] [address] 91803 * IONIZED CALCIUM (12/26/2016 4:16 AM) Component Value Ref Range Ionized Calcium 1.07 1.0 - 1.3 MMOL/L Specimen Performing Laboratory Blood MAIN [facility] [address] [place] [address] 23060 * PHOSPHORUS (12/26/2016 4:16 AM) Component Value Ref Range Phosphorus 2.6 2.0 - 4.0 MG/DL Specimen Performing Laboratory Blood MAIN LAB [address] [place] [address] 97378 * MAGNESIUM (12/26/2016 4:16 AM) Component Value Ref Range Magnesium 2.2 1.6 - 2.6 mg/dL Specimen Performing Laboratory Blood MAIN LAB [address] [place], [place] [id number] * CBC AND DIFF (12/26/2016 4:16 AM) [...] Specimen Performing Laboratory Blood MAIN LAB [address] [place] [address] * BASIC METABOLIC PANEL (12/26/2016 4:16 AM) [...] Specimen Performing Laboratory Blood MAIN [facility] [address] [place] [address] * SODIUM (12/25/2016 10:25 PM) Component Value Ref Range Sodium 151 (H) 137 - 147 MMOL/L Specimen Performing Laboratory Blood [facility] [address] [place] [address] * SODIUM (12/25/2016 4:36 PM) Component Value Ref Range Sodium 151 (H) 137 - 147 MMOL/L Specimen Performing Laboratory Blood [facility] [address] [place] [address] * CT HEAD WO CONTRAST (12/25/2016 2:21 [...] 0.05 NG/ML Specimen Performing Laboratory MAIN LAB [address] [place] [address] 07020 * POTASSIUM (12/25/2016 10:52 AM) Component Value Ref Range Potassium 4.0 3.5 - 5.1 MMOL/L Specimen Performing Laboratory Blood [facility] [address] [place] [address] 86502 * SODIUM (12/25/2016 10:52 AM) Component Value Ref Range Sodium 152 (H) 137 - 147 MMOL/L Specimen Performing Laboratory Blood MAIN LAB [address] [place] [address] 60112 * IONIZED CALCIUM (12/25/2016 3:35 AM) Component Value Ref Range Ionized Calcium 1.09 1.0 - 1.3 MMOL/L Specimen Performing Laboratory Blood MAIN LAB [address] [place] [address] 70848 * PHOSPHORUS (12/25/2016 3:35 AM) Component Value Ref Range Phosphorus 2.4 2.0 - 4.0 MG/DL Specimen Performing Laboratory Blood MAIN LAB [address] [place] [address] 15794 * MAGNESIUM (12/25/2016 3:35 AM) Component Value Ref Range Magnesium 2.2 1.6 - 2.6 mg/dL Specimen Performing Laboratory Blood MAIN LAB [address] [place] [address] * CBC AND DIFF (12/25/2016 3:35 AM) [...] Performing Laboratory Blood [facility] [address] [place] [address] * BASIC METABOLIC PANEL (12/25/2016 3:35 AM) [...] Performing Laboratory Blood [facility] [address] [place] [address] * SODIUM (12/24/2016 10:00 PM) Component Value Ref Range Sodium 144 137 - 147 MMOL/L Specimen Performing Laboratory Blood [facility] [address] [place] [address] * BLOOD GASES, ARTERIAL (12/24/2016 5:44 PM) Component Value Ref Range pH-Arterial 7.42 7.35 - 7.45 pCO2-Arterial 37 35 - 45 MMHG pO2-Arterial 165 (H) 80 - 100 MMHG Base Deficit-Arterial 0.0 MMOL/L O2 Sat-Arterial 99.6 (H) 95 - 99 % Plrscdmzixq-TCJ-Xkb 24.4 21 - 28 MMOL/L Specimen Performing Laboratory Blood, arterial - Blood [facility] [address] [place] [address] * SODIUM (12/24/2016 5:05 PM) Component Value Ref Range Sodium 145 137 - 147 MMOL/L Specimen Performing Laboratory Blood [facility] [address] [place] [address] * CT HEAD WO CONTRAST (12/24/2016 4:33 [...] There is improved intracranial mass effect and clmk-if-unbjg frontal midline shift now measuring 9 mm. [...] There is improved intracranial mass effect and igcz-ni-lazcc frontal midline shift now measuring 9 mm. [...] 12/24/2016 Specimen Performing Laboratory Stool - Feces [facility] [address] [place] [address] * PLAVIX RESISTANCE (PLATELETWORKS) (12/24/2016 1:35 PM) Component Value Ref Range Platelet Inhibition 40 (H) 0 - 15 % Comment: Normal ADP inhibition should be less than 15%. Therapeutic (Plavix and other P2Y 12) levels should be greater than 30%. Specimen Performing Laboratory Blood [facility] [address] [place] [address] * SODIUM (12/24/2016 11:40 AM) Component Value Ref Range Sodium 147 137 - 147 MMOL/L Specimen Performing Laboratory Blood [facility] [address] [place] [address] * CHEST SINGLE VIEW (12/24/2016 4:35 AM) [...] MMOL/L Specimen Performing Laboratory Blood MAIN LAB [address] [place] [address] 27465 * PHOSPHORUS (12/24/2016 4:00 AM) Component Value Ref Range Phosphorus 2.3 2.0 - 4.0 MG/DL Specimen Performing Laboratory Blood MAIN LAB [address] [place] [address] 45312 * MAGNESIUM (12/24/2016 4:00 AM) Component Value Ref Range Magnesium 2.2 1.6 - 2.6 mg/dL Specimen Performing Laboratory Blood MAIN LAB [address] [place] [address] * CBC AND DIFF (12/24/2016 4:00 AM) [...] K/UL Specimen Performing Laboratory Blood MAIN LAB [address] [place] [address] 16351 * BASIC METABOLIC PANEL (12/24/2016 4:00 AM) [...] Performing Laboratory Blood [facility] [address] [place] [address] * CT HEAD WO CONTRAST (12/24/2016 3:29 [...] significant change in left-sided transalar herniation and foys-ef-efqcs midline shift, measuring approximately 1.1 cm. There [...] significant change in left-sided transalar herniation and wewt-wa-rqtph midline shift, measuring approximately 1.1 cm. There [...] POS Specimen Performing Laboratory [facility] MA[facility] [address] [place] [address] * SODIUM (12/23/2016 9:43 PM) Component Value Ref Range Sodium 142 137 - 147 MMOL/L Specimen Performing Laboratory [facility] [address] [place] [address] * TYPE & CROSSMATCH (12/23/2016 8:56 PM) Component Value Ref Range Units Ordered 2 Crossmatch Expires 12/26/2016 Record Check 2ND TYPE REQUIRED ABO/RH(D) A POS Antibody Screen NEG Specimen Performing Laboratory [facility] MA[facility] [address] [place] [address] * BLOOD GASES, ARTERIAL (12/23/2016 8:00 PM) Component Value Ref Range pH-Arterial 7.46 (H) 7.35 - 7.45 pCO2-Arterial 33 (L) 35 - 45 MMHG pO2-Arterial 75 (L) 80 - 100 MMHG Base Excess-Arterial 0.2 MMOL/L O2 Sat-Arterial 95.9 95 - 99 % Fthkjzoghje-BAN-Sou 24.6 21 - 28 MMOL/L Specimen Performing Laboratory Blood, arterial - Blood MAIN LAB [address] [place] [address] * POTASSIUM (12/23/2016 6:14 PM) Component Value Ref Range Potassium 4.4 3.5 - 5.1 MMOL/L Specimen Performing Laboratory [facility] [address] [place] [address] * SODIUM (12/23/2016 4:05 PM) Component Value Ref Range Sodium 142 137 - 147 MMOL/L Specimen Performing Laboratory MAIN LAB [address] [place] [address] * PLATELET FUNCTION-PFA (12/23/2016 2:53 PM) Component [...] in this report. Specimen Performing Laboratory Blood [facility] [address] [place] [address] * LIPID PROFILE (12/23/2016 1:43 PM) Component [...] Specimen Performing Laboratory [facility] [address] [place] [address] * POTASSIUM (12/23/2016 1:43 PM) Component Value Ref Range Potassium 3.8 3.5 - 5.1 MMOL/L Specimen Performing Laboratory Blood [facility] [address] [place] [address] * MAGNESIUM (12/23/2016 1:43 PM) Component Value Ref Range Magnesium 2.4 1.6 - 2.6 mg/dL Specimen Performing Laboratory Blood [facility] [address] [place] [address] * SODIUM (12/23/2016 1:43 PM) Component Value Ref Range Sodium 142 137 - 147 MMOL/L Specimen Performing Laboratory Blood [facility] [address] [place] [address] * CT HEAD WO CONTRAST (12/23/2016 11:10 AM) Specimen Performing Laboratory [facility] RAD RESULTS Impressions 1.No significant change in size of the large left frontal mixed density hemorrhage with interval extension into the left lateral ventricle. 2.Slight decrease in mhvs-lz-tqgdl midline shift. 3.Interval increase in size of [...] examination. There is been slight improvement in iqdq-ar-gmxvq midline shift, now measuring 10 mm compared [...] examination. There is been slight improvement in iyod-wn-yrlgc midline shift, now measuring 10 mm compared to 13 mm previously. The basal cisterns are patent. There are no destructive osseous lesions. The perinasal sinuses and mastoid air cells are clear. IMPRESSION 1. No significant change in size of the large left frontal mixed density hemorrhage with interval extension into the left lateral ventricle. 2. Slight decrease in xcmv-pg-vphhm midline shift. 3. Interval increase in size [...] MMOL/L Specimen Performing Laboratory Blood MAIN LAB [address] [place], [place] [id number] * POTASSIUM (12/23/2016 8:16 AM) Component Value Ref Range Potassium 3.9 3.5 - 5.1 MMOL/L Specimen Performing Laboratory Blood MAIN LAB [address] [place] [address] * BLOOD GASES, ARTERIAL (12/23/2016 7:37 AM) Component Value Ref Range pH-Arterial 7.48 (H) 7.35 - 7.45 pCO2-Arterial 33 (L) 35 - 45 MMHG pO2-Arterial 71 (L) 80 - 100 MMHG Base Excess-Arterial 1.3 MMOL/L O2 Sat-Arterial 95.2 95 - 99 % Fbartlmyxxg-PHJ-Lsh 25.5 21 - 28 MMOL/L Specimen Performing Laboratory Blood, arterial - Blood MAIN LAB [address] [place] [address] * IONIZED CALCIUM (12/23/2016 4:30 AM) Component Value Ref Range Ionized Calcium 1.11 1.0 - 1.3 MMOL/L Specimen Performing Laboratory Blood MAIN [facility] [address] [place] [address] * PHOSPHORUS (12/23/2016 4:30 AM) Component Value Ref Range Phosphorus 3.6 2.0 - 4.0 MG/DL Specimen Performing Laboratory Blood MAIN LAB [address] [place] [address] * MAGNESIUM (12/23/2016 4:30 AM) Component Value Ref Range Magnesium 1.8 1.6 - 2.6 mg/dL Specimen Performing Laboratory Blood MAIN [facility] [address] [place], [place] [id number] * CBC AND DIFF (12/23/2016 4:30 AM) [...] Specimen Performing Laboratory Blood MAIN [facility] [address] [place] [address] * BASIC METABOLIC PANEL (12/23/2016 4:30 AM) [...] Specimen Performing Laboratory Blood MAIN [facility] [address] [place] [address] * HEMOGLOBIN A1C (12/23/2016 4:30 AM) Component Value Ref Range Hemoglobin A1C 5.2 4.0 - 6.0 % Comment: The ADA recommends that most patients with type 1 and type 2 diabetes maintain an A1c level <7%. Specimen Performing Laboratory Blood MAIN LAB [address] [place] [address] * BASIC METABOLIC PANEL (12/22/2016 11:14 PM) [...] Performing Laboratory Blood [facility] [address] [place] [address] * CT HEAD WO CONTRAST (12/22/2016 7:56 [...] There is continued localized mass effect and minw-yu-fwrev frontal midline shift and transalar herniation. The [...] There is continued localized mass effect and idqa-ld-cfdua frontal midline shift and transalar herniation. The [...] an existing cavity. 3.Continued mass effect and woqc-fj-lodbk midline shift, difficult to quantify due to [...] changed. There is continued mass effect and lald-ex-pgpxu midline shift. The degree of midline shift [...] changed. There is continued mass effect and omma-sp-smelj midline shift. The degree of midline shift [...] existing cavity. 3. Continued mass effect and ullj-zd-xawgc midline shift, difficult to quantify due to [...] questions. Specimen Performing Laboratory Blood [facility]IN [facility] [address] [place] [address] * PTT (APTT) (12/22/2016 1:45 PM) Component Value Ref Range APTT 23.7 (L) 24.0 - 40.0 SEC Specimen Performing Laboratory Blood MAIN [facility] [address] [place] [address] * PROTIME INR (PT) (12/22/2016 1:45 PM) Component Value Ref Range INR 1.0 0.8 - 1.2 Specimen Performing Laboratory Blood [facility]IN [facility] [address] [place] [address] * CBC AND DIFF (12/22/2016 1:45 PM) [...] Blood [facility] [address] [place] [address] * ABDOMEN AP ONLY (12/22/2016 7:08 AM) [...] in this encounter Visit Diagnoses Diagnosis Dysphagia Dysphagia, unspecified in this encounter Admitting Diagnoses Diagnosis large left front hematoma Hemorrhagic stroke (HCC) Intraparenchymal hemorrhage of brain (HCC) - Hemorrhagic stroke (HCC) Intracerebral hemorrhage Dysphagia - Hemorrhagic stroke (HCC) Dysphagia, unspecified Dysphagia - Hemorrhagic stroke (HCC) Dysphagia, unspecified in this encounter Administered Medications Medication Order MAR Action Action Date Dose Rate Site lidocaine PF 1% (10 mg/mL) injection Given 01/02/2017 3 mL Abdominal INTRA-PROCEDURE MED, Starting Thu 17:52 CDT Tissue 01/02/17 at 1752, Until Thu01/02/17 at 2026, Intra-op in this encounter
--- OUTSIDE RECORDS SUMMARY | 2017-03-03 06:10 | XMS REPORT | Encounter Summary ---
Author Author [facility] Organization [facility] Address Unknown Phone Unavailable Care Team Providers Care Fine Arts Model Name Role Phone PCP Unavailable Reason for Visit * Auth/Cert Status Reason Specialty Diagnoses / Referred By Referred To Procedures Contact Contact Diagnoses large left front hematoma Hemorrhagic stroke (HCC) Encounter Details Date Type Department Care Team Description 01/02/2017 Anesthesia Main Operating Room Ash Reis SRNA [address] [place] [address] Social History Tobacco Use Types Packs/Day Years Used Date Never Smoker Smokeless Tobacco: Never Used Alcohol Use Drinks/Week oz/Week Comments No Sex Assigned at Date Recorded Not on file as of this encounter Functional Status Functional Status Response Date of Assessment Does the patient have a hearing impairment: No 12/24/2016 as of this encounter OR Notes * Anesthesia Postprocedure Evaluation - Justino Campa DO - 01/02/2017 7:30 PM CDT Post-Anesthesia Evaluation Name: Roxy Phillip : 1950 Age: 66 y.o. Sex: female Procedure Date: 01/02/2017 Procedure: Procedure(s): INSERTION GASTROSTOMY TUBE PERCUTANEOUS Surgeon: Surgeon(s): MD Calvin Magaña DO Post-Anesthesia Vitals BP: 120/64 (01/02 1915) Temp: 37 C (98.6 F) (01/02 1900) Pulse: 97 (01/02 1915) Respirations: 12 PER MINUTE (01/02 1915) SpO2: 98 % (01/02 1915) O2 Delivery: None (Room Air) (01/02 1900) SpO2 Pulse: 96 (01/02 1915) Post Anesthesia Evaluation Note Evaluation location: Pre/Post Patient participation: recovered; patient participated in evaluation Level of consciousness: alert (alert however does not follow commands, this is baseline for patient. Able to nod head yes when asked if ready to go to her room ) Pain score: Pain scale: unable to assess. Pain management: adequate Hydration: normovolemia Temperature: 36.0C - 38.4C Airway patency: adequate Perioperative Events Perioperative events: no Post-op nausea and vomiting: no PONV Postoperative Status Cardiovascular status: hemodynamically stable Respiratory status: spontaneous ventilation Follow-up needed: none Associated attestation - Silvia Souza MD - 01/02/2017 9:39 PM CDT Formatting of this note may be different from the original. Post-Anesthesia Evaluation Attestation: I reviewed and agree the indicated post- anethesia care was provided. Staff name: Silvia Souza MD Date: 01/02/2017 * Anesthesia Preprocedure Evaluation - Reji Soto MD - 01/01/2017 3:01 PM CDT Formatting of this note may be different from the original. Anesthesia Pre-Procedure Evaluation Name: Roxy Phillip : 1950 Age: 66 y.o. Sex: female Procedure Date: 01/02/2017 Procedure: Procedure(s): INSERTION GASTROSTOMY TUBE PERCUTANEOUS Physical Assessment Vital Signs (last filed in past 24 hours): BP: 105/51 (01/02 1200) Temp: 36.8 C (98.2 F) (01/02 1200) Pulse: 99 (01/02 1200) Respirations: 19 PER MINUTE (01/02 1200) SpO2: 97 % (01/02 1200) O2 Delivery: None (Room Air) (01/02 1200) Height: 154.9 cm (60.98") (01/01 1708) Weight: 55.2 kg (121 lb 11.1 oz) (01/01 1708) Patient History Allergies Allergen Reactions Penicillins UNKNOWN Tomato SEE COMMENTS Throat swelling Celebrex [Celecoxib] HIVES [place]ich[place] VOMITING Current Medications Medication Directions aspirin EC 81 mg tablet Take 81 mg by mouth daily. Take with food. clopiDOGrel (PLAVIX) 75 mg tablet Take 75 mg by mouth daily. duloxetine DR (CYMBALTA) 30 mg capsule Take 30 mg by mouth daily. HYDROcodone/acetaminophen(+) (NORCO) 10/325 mg tablet Take 1 Tab by mouth every 6 hours as needed for Pain Review of Systems/Medical History Unable to obtain/perform ROS/medical history: mental acuity Patient summary reviewed Nursing notes reviewed Pertinent labs reviewed PONV Screening: Female gender, Postoperative opioids and Non-smoker No history of anesthetic complications No family history of anesthetic complications Airway H/o jaw surgery to correct severe overbite in late 80s/early 90s per daughter. Past intubation notes: G2a view with Mac 3 Pulmonary - negative Cardiovascular Beta Kimmie therapy: No Beta blockers within 24 hours: No Hypertension, Hyperlipidemia GI/Hepatic/Renal GERD, well controlled Neuro/Psych Hx TIA (8 months ago. ) CVA Dementia PEG canceled 12/31 d/t altered mental status. left frontal intraparenchymal hemorrhage s/p crani 12/24 Eyes open, will track appropriately. Will not FC and will not speak. Musculoskeletal Back pain Arthritis Endocrine/Other Diabetes (was previously on sitagliptin/metformin, apparently no longer takes per out of hospital records.), type 2 Physical Exam Airway Findings TM distance: >3 FB Airway patency: adequate Comments: unable to assess airway, pt does not follow commands. Dental Findings: Increased risk for dental injury; pt advised and poor dentition Comments: Multiple missing, poor dentition. Unable to assess. Cardiovascular Findings: Rhythm: regular Rate: normal Pulmonary Findings: Negative Breath sounds clear to auscultation. Comments: Abdominal Findings: Negative Neurological Findings: Altered mental status Diagnostic Tests Hematology: Lab Results Component Value Date HGB 9.8 01/01/2017 HCT 29.0 01/01/2017 PLTCT 269 01/01/2017 WBC 10.0 01/01/2017 NEUT 81 01/01/2017 ANC 8.10 01/01/2017 ALC 1.40 01/01/2017 ANNE 4 01/01/2017 AMC 0.40 01/01/2017 EOSA 1 01/01/2017 ABC 0.00 01/01/2017 MCV 91.3 01/01/2017 MCH 30.7 01/01/2017 MCHC 33.6 01/01/2017 MPV 8.4 01/01/2017 RDW 15.3 01/01/2017 General Chemistry: Lab Results Component Value Date NA 146 01/01/2017 K 3.9 01/01/2017 CL 113 01/01/2017 CO2 27 01/01/2017 GAP 6 01/01/2017 BUN 32 01/01/2017 CR 0.66 01/01/2017 GLU 195 01/01/2017 CA 8.7 01/01/2017 OBSCA 1.15 01/01/2017 MG 2.6 01/01/2017 PO4 3.5 01/01/2017 Coagulation: Lab Results Component Value Date PTT 23.7 12/22/2016 INR 1.0 12/22/2016 Anesthesia Plan ASA score: 3 Plan: MAC Induction method: intravenous NPO status: acceptable Comments: (Consent and PMH obtained from . ) Informed Consent Anesthetic plan and risks discussed with spouse and patient. Use of blood products discussed with spouse and patient; consented to blood products. Plan discussed with: anesthesiologist and SRNA. Consent signed by Frank. in this encounter Plan of Treatment Not on fileas of this encounter Visit Diagnoses Not on filein this encounter Administered Medications Medication Order MAR Action Action Date Dose Rate Site ceFAZolin (ANCEF) injection Given 01/02/2017 2 g INTRA-PROCEDURE MED, Starting Thu 17:28 CDT 01/02/17 at 1728, Until Thu01/02/17 at 1807, Anesthesia Intra-op lactated ringers infusion Given - New 01/02/2017 1,000 mL 20 mL/hr 1,000 mL, 1,000 mL, Intravenous, at 20 Bag 16:59 CDT mL/hr, CONTINUOUS, Starting Thu01/02/17 at 1630, Until 01/03/17 at 1330, Pre-Op Given - New Bag 01/02/2017 17:11 CDT Given - New Bag 01/02/2017 1,000 mL 20 mL/hr 22:00 CDT propofol (DIPRIVAN) infusion 200 mg Dose/Rate 01/02/2017 50 16.6 mL/hr 200 mg Change 17:33 CDT mcg/kg/min 20 mL, Intravenous, INTRA-PROCEDURE MED(CONT), Starting Thu01/02/17 at 1721, Until Thu01/02/17 at 1807, Anesthesia Intra-op Dose/Rate Change 01/02/2017 40 13.2 mL/hr 17:38 CDT mcg/kg/min Dose/Rate Change 01/02/2017 50 16.6 mL/hr 17:43 CDT mcg/kg/min propofol (DIPRIVAN) injection Given 01/02/2017 20 mg INTRA-PROCEDURE MED, Starting Thu 17:33 CDT 01/02/17 at 1721, Until Thu01/02/17 at 1807, Anesthesia Intra-op Given 01/02/2017 20 mg 17:36 CDT Given 01/02/2017 10 mg 17:54 CDT in this encounter
--- OUTSIDE RECORDS SUMMARY | 2017-03-03 06:10 | XMS REPORT | Encounter Summary ---
Author Author [facility] Organization [facility] Address Unknown Phone Unavailable Care Team Providers Care Manager Psychology Name Role Phone PCP Unavailable Encounter Details Date Type Department Care Team Description 12/28/2016 Procedure [facility] [address] [place] [address] Social History Tobacco Use Types [...]
--- OUTSIDE RECORDS SUMMARY | 2017-03-03 06:10 | XMS REPORT | Encounter Summary ---
Author Author [facility] Organization [facility] Address Unknown Phone Unavailable Care Team Providers Care Marine Habitat Resource Specialist Name Role Phone PCP Unavailable Encounter Details Date Type Department Care Team Description 12/27/2016 Procedure [facility] [address] [place] [address] Social History Tobacco Use Types [...]
--- OUTSIDE RECORDS SUMMARY | 2017-03-03 06:14 | XMS REPORT | Encounter Summary ---
Author Author [facility] Organization [facility] Address Unknown Phone Unavailable Care Team Providers Care Manager Appointment Name Role Phone PCP Unavailable Encounter Details Date Type Department Care Team Description 12/23/2016 Procedure [facility] [address] [place] [address] Social History Tobacco Use Types Packs/Day Years Used Date Never Smoker Smokeless Tobacco: Never Used Alcohol Use Drinks/Week oz/Week Comments No Sex Assigned at Date Recorded Not on file as of this encounter Plan of Treatment Not on fileas of this encounter Visit Diagnoses Not on filein this encounter
--- OUTSIDE RECORDS SUMMARY | 2017-03-03 06:14 | XMS REPORT | Encounter Summary ---
Author Author [facility] Organization [facility] Address Unknown Phone Unavailable Care Team Providers Care Glass Vial Filler Name Role Phone PCP Unavailable Encounter Details Date Type Department Care Team Description 12/22/2016 Procedure [facility] [address] [place] [address] Social History Tobacco Use Types Packs/Day Years Used Date Never Smoker Smokeless Tobacco: Never Used Alcohol Use Drinks/Week oz/Week Comments No Sex Assigned at Date Recorded Not on file as of this encounter Plan of Treatment Not on fileas of this encounter Visit Diagnoses Not on filein this encounter
--- OUTSIDE RECORDS SUMMARY | 2017-03-03 06:14 | XMS REPORT | Encounter Summary ---
Author Author [facility] Organization [facility] Address Unknown Phone Unavailable Care Team Providers Care Hitch Technician Name Role Phone PCP Unavailable Encounter Details Date Type Department Care Team Description 12/22/2016 Procedure [facility] [address] [place] [address] Social History Tobacco Use Types Packs/Day Years Used Date Never Assessed Sex Assigned at Date Recorded Not on file as of this encounter Plan of Treatment Not on fileas of this encounter Visit Diagnoses Not on filein this encounter
--- OUTSIDE RECORDS SUMMARY | 2017-03-03 06:14 | XMS REPORT | Encounter Summary ---
Author Author [facility] Organization [facility] Address Unknown Phone Unavailable Care Team Providers Care Zmt Operator Name Role Phone PCP Unavailable Encounter Details Date Type Department Care Team Description 12/22/2016 Hospital [facility] Radiology [address] [place], [place] [id number] Social History Tobacco Use Types Packs/Day Years Used Date Never Assessed Sex Assigned at Date Recorded Not on file as of this encounter Medications at Time of Discharge Medication Sig. Disp. Refills Start Date End Date acetaminophen (TYLENOL) Take 20.3 mL by mouth 240 mL 0 01/06/2017 160 mg/5 mL oral solution every 4 hours as needed. Max of 4,000 mg of acetaminophen in 24 hours. aspirin EC 81 mg tablet Take 81 mg by mouth daily. Take with food. clopiDOGrel (PLAVIX) 75 Take 1 tablet by mouth 90 tablet 3 01/06/2017 mg tablet daily. Will reevaluate continuation of this medication at your follow up appointment senna/docusate 10 mL by PEG Tube route 01/06/2017 (SENOKOT-S) 8.8/50 mg /10 twice daily. mL solution cefpodoxime (VANTIN) 100 Take 1 tablet by mouth 0 01/06/20172016 mg tablet every 12 hours for 4 days. Take with food. clopiDOGrel (PLAVIX) 75 Take 75 mg by mouth 01/06/2017 mg tablet daily. doxazosin (CARDURA) 2 mg Take 1 tablet [...] mg tablet every 4 hours as needed HYDROcodone/acetaminophen Take 1 Tab by mouth every 01/06/2017 (+) (NORCO) 10/325 mg 6 hours as needed for tablet Pain levETIRAcetam (KEPPRA) Take 5 mL by mouth twice 473 mL 12 01/06/2017 01/30/2017 100 mg/mL oral solution daily. as of this encounter Plan of Treatment Not on fileas of this encounter Visit Diagnoses Not on filein this encounter
--- OUTSIDE RECORDS SUMMARY | 2017-03-03 06:14 | XMS REPORT | Encounter Summary ---
Author Author [facility] Organization [facility] Address Unknown Phone Unavailable Care Team Providers Care Business System Consultant Name Role Phone PCP Unavailable Reason for Visit * Auth/Cert Status Reason Specialty Diagnoses / Referred By Referred To Procedures Contact Contact Diagnoses large left front hematoma Hemorrhagic stroke (HCC) Encounter Details Date Type Department Care Team Description 12/24/2016 Surgery Main Operating Room Antwan Guadarrama MD CRANIOTOMY EVACUATION [address] [place] [address] [address] microscope, brainlab, [place] [address] tube system [phone] Social History Tobacco Use Types Packs/Day Years [...] notable for: 66 y.o. female transfer from [facility] with large left frontal parenchymal hemorrhage found [...] of 0800 -1700, please call Theresa at [phone]. Otherwise, please call the main hospital number ([phone]) and ask for the neurosurgery resident front desk associate to be paged. BLADDER SCAN BEDSIDE Every 4 hours STRAIGHT CATH Every 4 hours for > 300 ml on bladder scan INSTRUCTIONS, ADDITIONAL CT head without contrast prior to DC from rehab. Please call [phone] when completed. PT EVAL & TREAT PT EVAL & TREAT Report These Signs and Symptoms Call for pain that is uncontrolled with pain medication, numbness or weakness, vision changes, trouble with speech or slurring of speech, or any questions/ concerns. Questions About Your Stay For questions or concerns regarding your hospital stay. Call [phone] Discharging attending physician: ANTWAN GUADARRAMA [[id number]] Tube Feeding Isosource 1.5 45 ml/hr with [...] Post - Op with Antwan Guadarrama MD [facility] - Neurosurgery (P NeuroSurgery) 2nd Floor Pod B [address] [facility] Med Office [facility] [id number] Pending items needing follow up: None Signed: [...] dysphagia assessment and treatment. Therapist: SUZANNE Perez, CF-INTERSTATE BUS DRIVER [phone] Date: 01/06/2017 * Jasmyne Avendaño OT [...] socks over her toes, pt able to lung puller heel with minimal assist for steadying/balance. 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 Mckenzie Yamel, RESOURCE SPECIALIST TEACHER [phone] Please call [phone] with any questions. * Kyle Christensen - 01/06/2017 8:54 AM CDT PHYSICAL THERAPY PROGRESS NOTE MOBILITY: Mobility Progressive Mobility Level: Walk laps Distance Walked (feet): 250 ft Level of Assistance: Assist X1 Assistive Device: Hand Held Time Tolerated: 11-30 minutes Activity Limited By: Fatigue SUBJECTIVE: Subjective Significant hospital events: 66 y.o. female PMH TIA, dementia, osteoporosis, arthritis, chronic back pain, admitted to [facility] with ICH on 12/22/16. Mental / Cognitive [...] osteoporosis, arthritis, chronic back pain, admitted to [facility] with ICH on 8/7/17. Large left frontal intraparenchymal hemorrhage on ASA/Plavix. [...] Consist/Presentation* Presentations: Therapist Fed Thin Liquid: Cup Ollie Thick Liquid: Cup, straw Education* Persons Educated: Patient Barriers To Learning: Impaired Communication, Decreased Alertness, Cognitive Deficits, Family not present Interventions: Staff Educated Teaching Methods: Verbal Topics: Aphasia, Dysphagia Patient Response: More Instruction Required Goals: Pt will participate in ongoing dysphagia assessment and treatment. 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 IVF 1/ 2NS 500ml bolus, and 150ml free water boluses every 4 hours INTERSTATE BUS DRIVER VS this afternoon SW for DC planning -anticipate ready for rehab tomorrow 01/06 Prophylaxis: A)GI: PPI B) Lines: No C) Urinary Catheter: No D) Antibiotic Usage: No E) VTE: Pharmacological prophylaxis; SQ Heparin and Mechanical prophylaxis; Sequential compression device F) Restraints: Patient assessed for need for restraints. Mckenzie Montesinos, RESOURCE SPECIALIST TEACHER [phone] Please call [phone] with any questions. * FerminKyle - 01/05/2017 11:35 AM CDT PHYSICAL THERAPY PROGRESS NOTE MOBILITY: Mobility Progressive Mobility Level: Walk in hallway Distance Walked (feet): 120 ft Level of Assistance: Assist X2 Assistive Device: Hand Held Time Tolerated: 0-10 minutes Activity Limited By: Fatigue;Weakness SUBJECTIVE: Subjective Significant hospital events: 66 y.o. female PMH TIA, dementia, osteoporosis, arthritis, chronic back pain, admitted to [facility] with ICH on 12/22/16. 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) Dementia TIA (transient ischemic attack) Chronic back pain Intraparenchymal hemorrhage of brain (HCC) Added automatically from request for surgery [id number] Keppra HOME THEATER EXPERIENCE EXPERT ASA/Plavix held Q1H neurochecks PT/OT inpatient setting Rehab consulted, follow up early next week, family interested in [facility] PEG placed, TF's restarted at 1800 INTERSTATE BUS DRIVER VS Thursday SW for DC planning Prophylaxis: A)GI: PPI B) Lines: No C) Urinary Catheter: No D) Antibiotic Usage: No E) VTE: Pharmacological prophylaxis; SQ Heparin and Mechanical prophylaxis; Sequential compression device F) Restraints: Patient assessed for need for restraints. Abby Hernandez MD Please call [phone] with any questions. Associated attestation - Madhavi Rivera MD - 01/03/2017 12:42 PM CDT Attending Note Patient and imaging reviewed with resident/ PRODUCT MANAGEMENT CONSULTANT. Patient seen and examined on . I [...] off at this time. Call with questions [id number] Discussed plan of care with Dr. Hankins [...] calcium gluconate IVPB 1 g Intravenous PRN (Piece Cutter from Rx) hydrALAZINE 10-20 mg Intravenous Q6H PRN HYDROcodone/acetaminophen 1-2 tablet Oral Q4H PRN magnesium sulfate 1 g Intravenous PRN ondansetron 4 mg Intravenous Q6H PRN pancrelipase 20,000 Units/ sodium bicarbonate 650 mg(#) 1 capsule Feeding Tube PRN (Piece Cutter from Rx) potassium chloride SR 40 mEq Oral PRN Or potassium chloride 40 mEq Per NG tube PRN Or potassium chloride 10 mEq Intravenous PRN Current Infusions: lactated ringers infusion Stopped (01/03/17 0600) Glucose Monitoring: POC Glucose (Download): (!) 116 (01/02/172109) Recent Laboratory Studies: Recent Labs 01/01/17 0507 01/02/17 0459 HGB 9.8* 11.0* HCT 29.0* 33.1* WBC 10.0 11.7* PLTCT 269 301 NA 146 149* K 3.9 3.9 CL 113* 114* CO2 27 25 BUN 32* 33* CR 0.66 0.73 GLU 195* 153* CA 8.7 9.1 MG 2.6 2.7* PO4 3.5 4.5* Karri Rai DO Pager: [phone] Associated attestation - Jong Hankins MD - [...] fashion. Jong Hankins MD Trauma/Critical Care/General Surgery [phone] * Calvin Lundberg DO - 01/02/2017 6:11 PM CDT ACS PEG usage: ok to use PEG for meds now. Tube feeds ok starting at 1800 on . Tamika 4506 * Alesha Patton, VANESSA - 01/02/2017 4:45 PM CDT Pt. Transferred to OR with transport via cart. VS stable. Ticket to ride provided and report given to DIRECTOR OF RESOURCE DEVELOPMENT. Gurvinder Mclaughlin - 01/02/2017 3:56 PM CDT SPEECH-LANGUAGE PATHOLOGY NO TREATMENT NOTE The patient was not seen due to: Pt NPO for procedure (PEG placement) later this date. Will f/u 01/05. Therapist: SUZANNE Perez, CF-INTERSTATE BUS DRIVER [phone] Date: 01/02/2017 * Jasmyne Avendaño OT [...] osteoporosis, arthritis, chronic back pain, admitted to [facility] with ICH on 12/22/16. Mental / Cognitive [...] 0400) Temp: 36.7 C (98 F) (01/02 0400) Pulse: 104 (01/02 0400) Respirations: 15 PER [...] calcium gluconate IVPB 1 g Intravenous PRN (Piece Cutter from Rx) hydrALAZINE 10-20 mg Intravenous Q6H PRN HYDROcodone/acetaminophen 1-2 tablet Oral Q4H PRN magnesium sulfate 1 g Intravenous PRN ondansetron 4 mg Intravenous Q6H PRN pancrelipase 20,000 Units/ sodium bicarbonate 650 mg(#) 1 capsule Feeding Tube PRN (Piece Cutter from Rx) potassium chloride SR 40 mEq [...] 3.5 3.5 4.5* Karri Rai DO Pager: [phone] * Nicole Miller, RD - 01/01/2017 3:31 PM CDT CLINICAL NUTRITION Clinical Nutrition Follow-Up Summary Nutrition Assessment of Patient: Malnutrition Assessment: Malnutrition present Malnutrition Context: ICD-10 code E43: Chronic illness/Severe malnutrition Estimated Calorie Needs: 1854-6079 (28-30 kcal/kg dry wt 55.4kg) Estimated Protein Needs: 65-75 (1.2-1.4g/kg dry wt 55.4kg) Oral Diet Order: NPO 3 day Average Intake (calories) Daily Average : 838 kilocalories Intake (protein) Daily Average : 38 grams female w/ PMH including dementia, chronic back pain, TIA; transferred to [facility] 12/22 with large left frontal parenchymal [...] osteoporosis, arthritis, chronic back pain, admitted to [facility] with Left frontal IPH on . Patient [...] w/ verbal presentation of the word from INTERSTATE BUS DRIVER w/ max cues. VERBAL EXPRESSION Comments*: Pt [...] accuracy w/ max cues. Therapist: SUZANNE Perez, CF-INTERSTATE BUS DRIVER [phone] Date: 01/01/2017 * Kyle Christensen - [...] osteoporosis, arthritis, chronic back pain, admitted to [facility] with ICH on 12/22/16 Mental / Cognitive [...] aspiration. Pt inconsistently w/ spontaneous responses to INTERSTATE BUS DRIVER questions w/ 1 - to 3-word responses. [...] Corpak. Meds via Corpak. Anticipate need for nursing home alternative source of nutrition. Excellent oral care. [...] therapy post acute hospitalization. Therapist: SUZANNE Perez, CF-INTERSTATE BUS DRIVER [phone] Date: 01/01/2017 * Elen Styles RN [...] aspiration. Pt rarely w/ spontaneous responses to INTERSTATE BUS DRIVER questions w/ 1- or 2-word responses ("yeah", "pretty good"). Unable to elicit voice, cough, or throat clear on command. No family present during session. RECOMMENDATIONS: Remain NPO at this time due to waxing and waning alertness and lethargy w/ continued use of Corpak. Meds via Corpak. Anticipate need for truck terminal manager alternative source of nutrition. Excellent oral [...] therapy post acute hospitalization. Therapist: SUZANNE Perez, CF-INTERSTATE BUS DRIVER [phone] Date: 12/31/2016 * Elen Styles RN [...] osteoporosis, arthritis, chronic back pain, admitted to [facility] with ICH on 12/22/16. Mental / Cognitive [...] 0800) Temp: 36.9 C (98.4 F) (01/01 0800) Pulse: 98 (12/31 0000) Respirations: 17 PER [...] calcium gluconate IVPB 1 g Intravenous PRN (Piece Cutter from Rx) hydrALAZINE 10-20 mg Intravenous Q6H PRN HYDROcodone/acetaminophen 1-2 tablet Oral Q4H PRN magnesium sulfate 1 g Intravenous PRN ondansetron 4 mg Intravenous Q6H PRN pancrelipase 20,000 Units/ sodium bicarbonate 650 mg(#) 1 capsule Feeding Tube PRN (Piece Cutter from Rx) potassium chloride SR 40 mEq Oral PRN Or potassium chloride 40 mEq Per NG tube PRN Or potassium chloride 10 mEq Intravenous PRN Current Infusions: Glucose Monitoring: FSBS (Manual): (!) 134 (12/31/1654) Glucose: (!) 130 (12/31/16 0525) POC Glucose (Download): (!) 134 (12/31/1694) Recent Laboratory Studies: Recent Labs 12/28/16 1309 [...] -- 4.3* 3.5 Adam Nicholson MD Pager: [phone] * Carrie Pack, OT - 12/31/2016 10:29 [...] osteoporosis, arthritis, chronic back pain, admitted to [facility] with Left frontal IPH on . Patient to OR for hematoma evacuation and EVD placement on 12/24. Precautions: Falls Pain / Complaints: Patient demonstrates no signs of pain Objective Psychosocial Status: Willing and Cooperative to Participate Persons Present: Human Relations Manager ADL's Where Assessed: Standing at Sink Grooming [...] osteoporosis, arthritis, chronic back pain, admitted to [facility] with ICH on 12/22/16. Mental / Cognitive [...] Call Light (TABs alarm activated) Comments: Recommend director of staff development perform stand pivot transfer with 2 person [...] osteoporosis, arthritis, chronic back pain, admitted to [facility] with Left frontal IPH on . Patient [...] aspiration. Pt rarely w/ spontaneous responses to INTERSTATE BUS DRIVER questions w/ 1- or 2-word responses ("yeah", "pretty good"). Unable to elicit voice, cough, or throat clear on command. No family present during session. RECOMMENDATIONS: Remain NPO at this time due to waxing and waning alertness and lethargy w/ continued use of Corpak. Meds via Corpak. Anticipate need for nursing home alternative source of nutrition. Excellent oral care. [...] therapy post acute hospitalization. Therapist: SUZANNE Perez, CF-INTERSTATE BUS DRIVER [phone] Date: 12/30/2016 * Iwona Woo APRN [...] 12/22/2016 Added automatically from request for surgery [id number] Roxy Phillip is a 66 y.o. female [...] - Keppra 500 mg BID - Holding HOME THEATER EXPERIENCE EXPERT Plavix (placed on after TIA)- will discuss [...] Intake/Output Summary (Last 24 hours) at 12/30/16 0743 Last data filed at 12/30/16 0400 Gross [...] radiologic and diagnostic procedures reviewed. Iwona Woo, RESOURCE SPECIALIST TEACHER Date: 12/30/[phone] I spent 40 minutes managing the care [...] coordination of care with consulted teams. * Book, Navjot, RN - 12/30/2016 4:12 AM CDT Pt [...] <60. No new orders. Passed on to shift coordinator nurse. Will continue to monitor closely. * [...] osteoporosis, arthritis, chronic back pain, admitted to [facility] with ICH on 12/22/16. Mental / Cognitive [...] osteoporosis, arthritis, chronic back pain, admitted to [facility] with Left frontal IPH on . Patient [...] Corpak. Meds via Corpak. Anticipate need for truck terminal manager alternative source of nutrition. Excellent oral [...] therapy post acute hospitalization. Therapist: SUZANNE Perez, CF-INTERSTATE BUS DRIVER [phone] Date: 12/29/2016 * Shantal Lopez, SERVANDO - 12/29/2016 2:25 PM CDT CLINICAL NUTRITION Clinical Nutrition Follow-Up Summary Nutrition Assessment of Patient: Malnutrition Assessment: Malnutrition present Malnutrition Context: ICD-10 code E43: Chronic illness/Severe malnutrition Estimated Calorie Needs: 5221-1391 (28-30 kcal/kg dry wt 55.4kg) Estimated Protein [...] dementia, chronic back pain, TIA; transferred to [facility] 12/22 with large left frontal parenchymal [...] 12/22/2016 Added automatically from request for surgery [id number] ATTESTATION Date of Service: 12/29/2016 I have [...] PO NaCl. Trend sodiums another day. Cont HOME THEATER EXPERIENCE EXPERT ASA and plavix. CV - meeting SBP [...] 0.5% Q4H PRN, calcium gluconate IVPB PRN (Piece Cutter from Rx) AND Ionized Calcium PRN AND Notify Physician Ongoing, fentaNYL citrate PF Q1H PRN, hydrALAZINE Q6H PRN, HYDROcodone/acetaminophen Q4H PRN, magnesium sulfate PRN AND Magnesium PRN * *AND Notify Physician Ongoing, ondansetron Q6H PRN, pancrelipase 20,000 Units / sodium bicarbonate 650 mg(#) PRN (Piece Cutter from Rx), potassium chloride SR PRN OR [...] 0423) POC Glucose (Download): (!) 109 (12/29/16 0855) Radiology and Other Diagnostic Procedures Review: Pertinent radiology reviewed. Mary Huntley MD 12/29/2016 Pager: [phone] * Daisy Benitez RN - 12/29/2016 10:18 [...] see patient 1 time Therapist: SUZANNE Perez, CF-INTERSTATE BUS DRIVER [phone] Date: 12/29/2016 * Ashia Patterson APRN - 12/29/2016 6:48 AM CDT Formatting of this note may be different from the original. 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) 2016 Dementia 12/23/2016 TIA (transient ischemic attack) 12/23/2016 Chronic back pain 12/23/2016 Intraparenchymal hemorrhage of brain (HCC) 12/22/2016 Added automatically from request for surgery [id number] Hospital and ICU course: 12/22: admitted to [...] - Keppra 500 mg BID - Holding HOME THEATER EXPERIENCE EXPERT Plavix (placed on after TIA) - Angio [...] (Pain 1): (not recorded) Vitals: 12/27/16 0400 12/28/1639912/29/16399 Weight: 54.9 kg (121 lb 0.5 oz) [...] 0.5% Q4H PRN, calcium gluconate IVPB PRN (Piece Cutter from Rx) AND Ionized Calcium PRN AND Notify Physician Ongoing, fentaNYL citrate PF Q1H PRN, hydrALAZINE Q6H PRN, HYDROcodone/acetaminophen Q4H PRN, magnesium sulfate PRN AND Magnesium PRN * *AND Notify Physician Ongoing, ondansetron Q6H PRN, pancrelipase 20,000 Units / sodium bicarbonate 650 mg(#) PRN (Piece Cutter from Rx), potassium chloride SR PRN OR [...] of care with consulted teams. Ashia Patterson, RESOURCE SPECIALIST TEACHER Date: 12/29/[phone] * Jaswinder Gaspar MD - 12/29/2016 6:31 [...] (HCC) Added automatically from request for surgery [id number] Nontraumatic cortical hemorrhage of left cerebral hemisphere [...] 147, On 2% @20, PO salt Keppra HOME THEATER EXPERIENCE EXPERT ASA/Plavix held Q1H neurochecks PT/OT inpatient setting (will need rehab consult) ST, NPO SW for DC planning Prophylaxis: A)GI: PPI B) Lines: No C) Urinary Catheter: No D) Antibiotic Usage: No E) VTE: Pharmacological prophylaxis; Contraindication: Bleeding risk; No SQH large ICH with hx of ASA/Plavix and Mechanical prophylaxis; Sequential compression device F) Restraints: Patient assessed for need for restraints. Jaswinder Gaspar MD 6356 Please call [phone] with any questions. * Rommel Cisneros RN - 12/28/2016 6:31 PM CDT 1815 - [...] 12/22/2016 Added automatically from request for surgery [id number] 24 hour I/O balance is as follows: Intake/Output Summary (Last 24 hours) at 12/28/16 0840 Last data filed at 12/28/16 0800 Gross per 24 hour Intake 2335 ml Output 1839 ml Net 496 ml __ Subjective: Roxy Phillip is a 66 y.o. female. Overnight Events: No new events noted, sign out obtained from shift coordinator person ( nurse and ICU physician). Patient [...] Meds:acetaminophen Q4H PRN, calcium gluconate IVPB PRN (Piece Cutter from Rx) AND Ionized Calcium PRN AND Notify Physician Ongoing, fentaNYL citrate PF Q1H PRN, hydrALAZINE Q6H PRN, HYDROcodone/acetaminophen Q4H PRN, magnesium sulfate PRN AND Magnesium PRN AND Notify Physician Ongoing, ondansetron Q6H PRN, pancrelipase 20,000 Units/ sodium bicarbonate 650 mg(#) PRN (Piece Cutter from Rx), potassium chloride SR PRN OR [...] (Pain 1): (not recorded) Vitals: 12/26/16 0400 12/27/1639912/28/16399 Weight: 54.4 kg (119 lb 14.9 oz) [...] optimize venous drainage Maintain normothermia, avoid hypoxemia, [place] appropriate osmotherapy ( i.e mannitol vs Hypertonic [...] (Last 24 hours): Glucose: (!) 175 (12/28/16 0335) POC Glucose (Download): (!) 159 (12/28/16 0402) [...] HAD BM on 12-27-16 Social work and registered nurse hh case manager for discharge planning and placement. Family Meeting and update: yes. Patient is unable to make his or her decisions, family updated during rounds. Goals of therapy: Addressed, Patient is a full code Nurses concerns addressed. 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) Dementia TIA (transient ischemic attack) Chronic back pain EVD catheter withdrawn 12/25/16 Pulled back again this AM (12/27/16), CT head shows new position of catheter and decreased size of IPH Na- 143, On 2% @50, PO salt Keppra HOME THEATER EXPERIENCE EXPERT ASA/Plavix held Q1H neurochecks PT/OT inpatient setting (will need rehab consult) ST, NPO SW for DC planning Prophylaxis: A)GI: PPI B) Lines: No C) Urinary Catheter: No D) Antibiotic Usage: No E) VTE: Pharmacological prophylaxis; Contraindication: Bleeding risk; No SQH large ICH with hx of ASA/Plavix and Mechanical prophylaxis; Sequential compression device F) Restraints: Patient assessed for need for restraints. Phylicia Duenas MD [id number] Please call [phone] with any questions. * Robbie Singh, RESOURCE SPECIALIST TEACHER - 12/28/2016 6:52 AM CDT Formatting of this note may be different from the original. 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) 2016 Dementia 12/23/2016 TIA (transient ischemic attack) 12/23/2016 Chronic back pain 12/23/2016 Intraparenchymal hemorrhage of brain (HCC) 12/22/2016 Added automatically from request for surgery [id number] Hospital and ICU course: 12/22: admitted to [...] - Keppra 500 mg BID - Holding HOME THEATER EXPERIENCE EXPERT Plavix (placed on after TIA) 12/27 Head [...] Meds:acetaminophen Q4H PRN, calcium gluconate IVPB PRN (Piece Cutter from Rx) AND Ionized Calcium PRN AND Notify Physician Ongoing, fentaNYL citrate PF Q1H PRN, hydrALAZINE Q6H PRN, HYDROcodone/acetaminophen Q4H PRN, magnesium sulfate PRN AND Magnesium PRN AND Notify Physician Ongoing, ondansetron Q6H PRN, pancrelipase 20,000 Units/ sodium bicarbonate 650 mg(#) PRN (Piece Cutter from Rx), potassium chloride SR PRN OR [...] (122 lb 9.2 oz), SpO2 97 %. [place] coma score: E: 4 - Opens eyes [...] (Last 24 hours): Glucose: (!) 175 (12/28/16 0335) POC Glucose (Download): (!) 159 (12/28/16 7354) Radiology and Other Diagnostic Procedures Review: all noted I spent 45 minutes managing the care of this patient. Mrs Phillip is critically ill s/p ICH. Cares included: detailed neurologic and systems exam, medication review, laboratory data review and interpretation, electrolyte management, review of available imaging, DVT/PE prophylaxis review, diet review , activity review, and coordination of care with consulted teams. Robbie Singh, RESOURCE SPECIALIST TEACHER Date: 12/28/[phone] * Delaney Lechuga RN - 12/27/2016 6:30 [...] 12/22/2016 Added automatically from request for surgery [id number] Hospital and ICU course: 12/22: admitted to [...] - Keppra 500 mg BID - Holding HOME THEATER EXPERIENCE EXPERT Plavix (placed on after TIA) 12/27 Head [...] daily BM (last 12/25) Heme: stable -hold HOME THEATER EXPERIENCE EXPERT Plavix and ASA - Hgb 11.0, Plt [...] Meds:acetaminophen Q4H PRN, calcium gluconate IVPB PRN (Piece Cutter from Rx) AND Ionized Calcium PRN AND Notify Physician Ongoing, fentaNYL citrate PF Q1H PRN, hydrALAZINE Q6H PRN, HYDROcodone/acetaminophen Q4H PRN, magnesium sulfate PRN AND Magnesium PRN AND Notify Physician Ongoing, ondansetron Q6H PRN, pancrelipase 20,000 Units/ sodium bicarbonate 650 mg(#) PRN (Piece Cutter from Rx), potassium chloride SR PRN OR [...] (Last 24 hours): Glucose: (!) 184 (12/27/16 8642) Radiology and Other Diagnostic Procedures Review: all noted Myke Hernandez MD Date: 12/27/[phone] Associated attestation - Marcos Herrmann MD - [...] back pain 12/23/2016 Intraparenchymal hemorrhage of brain ([facility]) 12/22/2016 Added automatically from request for surgery [id number] 24 hour I/O balance is as follows: Intake/Output Summary (Last 24 hours) at 12/27/16 1239 Last data filed at 12/27/16 1200 Gross per 24 hour Intake 2167 ml Output 2624 ml Net -457 ml __ Subjective: Roxy Phillip is a 66 y.o. female. Overnight Events: No new events noted, sign out obtained from shift coordinator person ( nurse and [facility] physician). Patient examined: yes Objective: I [...] Meds:acetaminophen Q4H PRN, calcium gluconate IVPB PRN (Piece Cutter from Rx) AND Ionized Calcium PRN AND Notify Physician Ongoing, fentaNYL citrate PF Q1H PRN, hydrALAZINE Q6H PRN, HYDROcodone/acetaminophen Q4H PRN, magnesium sulfate PRN AND Magnesium PRN AND Notify Physician Ongoing, ondansetron Q6H PRN, pancrelipase 20,000 Units/ sodium bicarbonate 650 mg(#) PRN (Piece Cutter from Rx), potassium chloride SR PRN OR [...] optimize venous drainage Maintain normothermia, avoid hypoxemia, [place] appropriate osmotherapy ( i.e mannitol vs Hypertonic [...] (Last 24 hours): Glucose: (!) 184 (12/27/16 0276) Drains: reviewed Prophylaxis Review: Lines: No Urinary [...] aspiration. Monitor for BM Social work and registered nurse hh case manager for discharge planning and placement. Family Meeting and update: yes. Patient is unable to make his or her decisions, family updated during rounds. Goals of therapy: Addressed, Patient is a full code Nurses concerns addressed. 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) Dementia TIA (transient ischemic attack) Chronic back pain EVD catheter withdrawn 12/25/16 Pulled back again this AM (12/27/16), CT head ordered to evaluate new position Na- 149, On 2% @20, PO salt Keppra HOME THEATER EXPERIENCE EXPERT ASA/Plavix held Q1H neurochecks PT/OT inpatient setting (will need rehab consult) ST, NPO SW for DC planning Prophylaxis: A)GI: PPI B) Lines: No C) Urinary Catheter: No D) Antibiotic Usage: No E) VTE: Pharmacological prophylaxis; Contraindication: Bleeding risk; No SQH large ICH with hx of ASA/Plavix and Mechanical prophylaxis; Sequential compression device F) Restraints: Patient assessed for need for restraints. Phylicia Duenas MD [id number] Please call [phone] with any questions. * Gurvinder Galicia - 12/26/2016 2:23 PM CDT SPEECH-LANGUAGE PATHOLOGY NO TREATMENT NOTE Per discussion w/ RN, pt still demonstrating lethargy and reduced arousal and not appropriate for swallow treatment on this date. Do not anticipate changes in swallow function in near future. Will f/u 12/29. Attempted to see patient 1 time Therapist: SUZANNE Perez, CF-INTERSTATE BUS DRIVER [phone] Date: 12/26/2016 * Kyle Christensen - [...] osteoporosis, arthritis, chronic back pain, admitted to [facility] with Left frontal IPH on . Patient [...] 12/22/2016 Added automatically from request for surgery [id number] Hospital and ICU course: 12/22: admitted to [...] - Per Took 10/325mg Hydrocodone q6 hours HOME THEATER EXPERIENCE EXPERT- Minimize narcotic use - Assess for delirium [...] bowel regimen, ensure daily BM Heme: -hold HOME THEATER EXPERIENCE EXPERT Plavix and ASA - 12/24 Hgb 10.6 [...] Meds:acetaminophen Q4H PRN, calcium gluconate IVPB PRN (Piece Cutter from Rx) AND Ionized Calcium PRN AND Notify Physician Ongoing, fentaNYL citrate PF Q1H PRN, hydrALAZINE Q6H PRN, HYDROcodone/acetaminophen Q4H PRN, magnesium sulfate PRN AND Magnesium PRN AND Notify Physician Ongoing, ondansetron Q6H PRN, pancrelipase 20,000 Units/ sodium bicarbonate 650 mg(#) PRN (Piece Cutter from Rx), potassium chloride SR PRN OR [...] (119 lb 14.9 oz), SpO2 94 %. [place] coma score: E: 4 - Opens eyes [...] all noted Critical care 50 min Inocencio LacKmark Date: 12/26/[phone] * Carrie Lindquist, JAYLA-PRODUCT MANAGEMENT CONSULTANT - 12/26/2016 7:47 AM CDT Formatting of this note may be different from the original. 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) 2016 Dementia 12/23/2016 TIA (transient ischemic attack) 12/23/2016 Chronic back pain 12/23/2016 Intraparenchymal hemorrhage of brain (HCC) 12/22/2016 Added automatically from request for surgery [id number] Hospital and ICU course: 12/22: admitted to [...] - Keppra 500 mg BID - Holding HOME THEATER EXPERIENCE EXPERT Plavix (placed on after TIA) Sedation/Pain Management: [...] ensure daily BM (last 12/25) Heme: -hold HOME THEATER EXPERIENCE EXPERT Plavix and ASA - Hgb 9.1, Plt [...] 1%, Na Acetate 1%) 50 mL/hr at 08/10/17 2213 PRN and Respiratory Meds:calcium gluconate IVPB PRN (Piece Cutter from Rx) AND Ionized Calcium PRN AND Notify Physician Ongoing, fentaNYL citrate PF Q1H PRN, hydrALAZINE Q6H PRN, HYDROcodone/acetaminophen Q4H PRN, magnesium sulfate PRN AND Magnesium PRN AND Notify Physician Ongoing, ondansetron Q6H PRN , pancrelipase 20,000 Units/ sodium bicarbonate 650 mg(#) PRN (Piece Cutter from Rx) , potassium chloride SR PRN [...] of care with consulted teams. Carrie Lindquist, RESOURCE SPECIALIST TEACHER-PRODUCT MANAGEMENT CONSULTANT Date: 12/26/[phone] * Nicole Little RN - 12/25/2016 7:21 [...] 12/22/2016 Added automatically from request for surgery [id number] Hospital and ICU course: 12/22: admitted to [...] - Keppra 500 mg BID - Hold HOME THEATER EXPERIENCE EXPERT Plavix (placed on after TIA) Sedation/Pain Management: Hx of Chronic back pain - Per Took 10/325mg Hydrocodone q6 hours HOME THEATER EXPERIENCE EXPERT- hold for now, use PRNs if needed [...] bowel regimen, ensure daily BM Heme: -hold HOME THEATER EXPERIENCE EXPERT Plavix and ASA - 12/24 Hgb 10.6 [...] (12/25 1799) Temp: 36.7 C (98 F) (12/26 1599) Pulse: 73 (12/25 1799) Respirations: 21 PER [...] PRN and Respiratory Meds:calcium gluconate IVPB PRN (Piece Cutter from Rx) AND Ionized Calcium PRN AND Notify Physician Ongoing, fentaNYL citrate PF Q1H PRN, hydrALAZINE Q6H PRN, HYDROcodone/acetaminophen Q4H PRN, magnesium sulfate PRN AND Magnesium PRN AND Notify Physician Ongoing, ondansetron Q6H PRN , pancrelipase 20,000 Units/ sodium bicarbonate 650 mg(#) PRN (Piece Cutter from Rx) , potassium chloride SR PRN [...] (124 lb 5.4 oz), SpO2 97 %. [place] coma score: E: 4 - Opens eyes [...] (Last 24 hours): Glucose: (!) 126 (12/25/16 1315) Radiology and Other Diagnostic Procedures Review: all noted Critical care 50 min Inocencio Haddad Date: 12/25/[phone] * Gurvinder Galicia - 12/25/2016 2:23 PM [...] therapy post acute hospitalization. Therapist: SUZANNE Perez, CF-INTERSTATE BUS DRIVER [phone] Date: 12/25/2016 * Carrie Pack, OT - 12/25/2016 11:34 AM CDT OCCUPATIONAL THERAPY PROGRESS NOTE Admitting Diagnosis: large left front hematoma Hemorrhagic stroke (HCC) Patient seen x1 this date. Documentation reflects all daily treatment sessions. Subjective Pertinent Dx per Physician: 66 y.o. female PMH TIA, dementia, osteoporosis, arthritis, chronic back pain, admitted to [facility] with Left frontal IPH on . Patient [...] osteoporosis, arthritis, chronic back pain, admitted to [facility] with ICH on 12/22/16. 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) 2016 Dementia 12/23/2016 TIA (transient ischemic attack) 12/23/2016 Chronic back pain 12/23/2016 Intraparenchymal hemorrhage of brain (HCC) 12/22/2016 Added automatically from request for surgery [id number] Hospital and ICU course: 12/22: admitted to [...] - Keppra 500 mg BID - Hold HOME THEATER EXPERIENCE EXPERT Plavix (placed on after TIA) Sedation/Pain Management: Hx of Chronic back pain - Per Took 10/325mg Hydrocodone q6 hours HOME THEATER EXPERIENCE EXPERT- hold for now, use PRNs if needed [...] bowel regimen, ensure daily BM Heme: -hold HOME THEATER EXPERIENCE EXPERT Plavix and ASA - 12/24 Hgb 10.6 [...] for restraints. Disposition/Family:ICU Primary service:NS Consults: NEICU __ SUBJECTIVE Roxy Phillip is a 66 [...] PRN and Respiratory Meds:calcium gluconate IVPB PRN (Piece Cutter from Rx) AND Ionized Calcium PRN AND [...] (124 lb 5.4 oz), SpO2 99 %. [place] coma score: E: 4 - Opens eyes [...] coordination of care with consulted teams. Ashia Patterson APRN Date: 12/25/[phone] * Nicole Little RN - 12/24/2016 6:55 [...] and provide OT intervention as indicated. Therapist: EHNRY James/Bharati [id number] Date: 12/24/2016 * Inocencio Haddad - [...] 12/22/2016 Added automatically from request for surgery [id number] Miss Phillip is 66y/o female with large [...] watch for hydrocephalus - OT/PT - Hold HOME THEATER EXPERIENCE EXPERT Plavix (placed on after TIA) Sedation/Pain Management: Hx of Chronic back pain - Per Took 10/325mg Hydrocodone q6 hours HOME THEATER EXPERIENCE EXPERT- hold for now, use PRNs if needed [...] bowel regimen, ensure daily BM Heme: hold HOME THEATER EXPERIENCE EXPERT Plavix and ASA - assess for coagulopathy, [...] (12/24 999) O2 Delivery: None (Room Air) (12/24 1000) Weight: 55.4 kg (122 lb 2.2 [...] PRN and Respiratory Meds:calcium gluconate IVPB PRN (Piece Cutter from Rx) AND Ionized Calcium PRN AND [...] care 60 minutes Inocencio Haddad Date: 12/24/[phone] * Gurvinder Galicia - 12/24/2016 10:10 AM CDT SPEECH-LANGUAGE PATHOLOGY NO TREATMENT NOTE Per discussion w/ RN, pt NPO for procedure later this date and remains lethargic w/ decreased arousal. Will f/u 12/25 as pt is appropriate. 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) Dementia TIA (transient ischemic attack) Chronic back pain Off label Hilario, consented, pre op complete, marked CT head 12/23 stable, head CT 12/24 for OR planning Na- 144, On 2% @75, goal 145-155 Keppra HOME THEATER EXPERIENCE EXPERT ASA/Plavix held Q1H neurochecks PT/OT inpatient setting (will need rehab consult) ST, NPO SW for DC planning Prophylaxis: A)GI: PPI B) Lines: No C) Urinary Catheter: No D) Antibiotic Usage: No E) VTE: Pharmacological prophylaxis; Contraindication: Bleeding risk; No SQH large ICH with hx of ASA/Plavix and Mechanical prophylaxis; Sequential compression device F) Restraints: Patient assessed for need for restraints. Angela Benavides RESOURCE SPECIALIST TEACHER [phone] Please call [phone] with any questions. * Robbie Singh, RESOURCE SPECIALIST TEACHER - 12/24/2016 7:03 AM CDT Formatting of [...] 12/22/2016 Added automatically from request for surgery [id number] Hospital and ICU course: 12/22: admitted to [...] 500 mg BID - OT/PT - Hold HOME THEATER EXPERIENCE EXPERT Plavix (placed on after TIA) Sedation/Pain Management: Hx of Chronic back pain - Per Took 10/325mg Hydrocodone q6 hours HOME THEATER EXPERIENCE EXPERT- hold for now, use PRNs if needed [...] bowel regimen, ensure daily BM Heme: -hold HOME THEATER EXPERIENCE EXPERT Plavix and ASA - assess for coagulopathy, [...] PRN and Respiratory Meds:calcium gluconate IVPB PRN (Piece Cutter from Rx) AND Ionized Calcium PRN AND [...] of care with consulted teams. Robbie Singh, RESOURCE SPECIALIST TEACHER Date: 12/24/[phone] * Brando Izaguirre RN - 12/23/2016 6:49 [...] will request records for this surgery in [facility] and the subsequent surgery in [facility]. It was not clear if the [...] watch for hydrocephalus - OT/PT - Hold HOME THEATER EXPERIENCE EXPERT Plavix (placed on after TIA) Sedation/Pain Management: Hx of Chronic back pain - Per Took 10/325mg Hydrocodone q6 hours HOME THEATER EXPERIENCE EXPERT- hold for now, use PRNs if needed [...] bowel regimen, ensure daily BM Heme: hold HOME THEATER EXPERIENCE EXPERT Plavix and ASA - assess for coagulopathy, [...] PRN and Respiratory Meds:calcium gluconate IVPB PRN (Piece Cutter from Rx) AND Ionized Calcium PRN AND [...] (125 lb 14.1 oz), SpO2 95 %. [place] coma score: E: 4 - Opens eyes [...] care 70 minutes Inocencio Haddad Date: 12/23/[phone] * Mikie Ravi RN - 12/23/2016 11:30 [...] arousal. Two attempted swallows were appreciated while INTERSTATE BUS DRIVER was providing oral care. Laryngeal elevation appeared [...] osteoporosis, arthritis, chronic back pain, admitted to [facility] with ICH on 12/22/16. This morning her [...] MECH EXAM Oral Mech WFL*: No Oral [facility] Exam Summary*: Pt unable to follow any [...] ongoing dysphagia assessment and treatment. Therapist:SUZANNE Perez, CF-INTERSTATE BUS DRIVER [phone] Date:12/23/2016 * Kyle Christensen - 12/23/2016 8:30 AM CDT PHYSICAL THERAPY ASSESSMENT MOBILITY: Mobility Progressive Mobility Level: Passive sitting Level of Assistance: Assist X2 Assistive Device: None Time Tolerated: 0-10 minutes Activity Limited By: Mental Status Variability SUBJECTIVE: Subjective Significant hospital events: 66 y.o. female PMH TIA, dementia, osteoporosis, arthritis, chronic back pain, admitted to [facility] with ICH on 12/22/16. Mental / Cognitive [...] ASSESSMENT NOTE Patient Name: Roxy Phillip Room/Bed: 905[facility] Admitting Diagnosis: large left front hematoma Hemorrhagic [...] osteoporosis, arthritis, chronic back pain, admitted to [facility] with Left frontal IPH on . Precautions: [...] Accessibility: Not Accessible Prior Function Level Of [place]: Independent with ADLs and functional transfers;Needed assistance [...] on above evaluation and clinical judgment. Therapist: Carrie Pack OTR/L [id number] Date: 12/23/2016 * Mary Sultana DO [...] improving. Mary Sultana DO Neurology, PGY-3 Pager [phone] * Robbie Singh, RESOURCE SPECIALIST TEACHER - 12/23/2016 6:27 AM CDT Formatting of this note may be different from the original. Neuroscience Critical Care Progress Note Roxy Smith [facility] Admission Date: 12/22/2016 LOS: 1 day ASSESSMENT/PLAN [...] 500 mg BID - OT/PT - Hold HOME THEATER EXPERIENCE EXPERT Plavix (placed on after TIA) Sedation/Pain Management: Hx of Chronic back pain - Per Took 10/325mg Hydrocodone q6 hours HOME THEATER EXPERIENCE EXPERT- hold for now, use PRNs if needed [...] bowel regimen, ensure daily BM Heme: hold HOME THEATER EXPERIENCE EXPERT Plavix and ASA - assess for coagulopathy, [...] PRN and Respiratory Meds:calcium gluconate IVPB PRN (Piece Cutter from Rx) AND Ionized Calcium PRN AND [...] (125 lb 14.1 oz), SpO2 95 %. [place] coma score: E: 4 - Opens eyes [...] of care with consulted teams Robbie Singh, RESOURCE SPECIALIST TEACHER Date: 12/23/[phone] * Mikie Ravi, RN - 12/22/2016 6:36 [...] 12/22/2016 [place] AC=Airway clearance AM=Aerosolized medication BA=Ida aerosol DB&C=Deep breathe & cough FEV1=Forced expiratory volume in first second) IC=Inspiratory capacity LE=Lung expansion MDI=Metered dose inhaler Neb=Nebulizer O2=Oxygen Oxim=Oximetry PEFR=Peak expiratory flow rate JEWELRY SALES ASSOCIATE=Rapid Response Team * Gurvinder Galicia - 12/22/2016 [...] osteoporosis, arthritis, chronic back pain, admitted to [facility] with ICH on 12/22/16. This morning her [...] existing cavity. 3. Continued mass effect and [id number] midline shift, difficult to quantify due to patient motion. Therapist: SUZANNE Perez, CF-INTERSTATE BUS DRIVER [phone] Date: 12/22/2016 * Mikie Ravi RN [...] encounter H&P Notes * Luz Marina Obrien, MSN,RESOURCE SPECIALIST TEACHER - 12/29/2016 9:55 AM CDT Formatting of [...] 0.5% Q4H PRN, calcium gluconate IVPB PRN (Piece Cutter from Rx) AND Ionized Calcium PRN AND Notify Physician Ongoing, fentaNYL citrate PF Q1H PRN, hydrALAZINE Q6H PRN, HYDROcodone/acetaminophen Q4H PRN, magnesium sulfate PRN AND Magnesium PRN * *AND Notify Physician Ongoing, ondansetron Q6H PRN, pancrelipase 20,000 Units / sodium bicarbonate 650 mg(#) PRN (Piece Cutter from Rx), potassium chloride SR PRN OR [...] H&P performed on 12/22/16. Luz Marina Obrien, MSN,RESOURCE SPECIALIST TEACHER Pager [phone] * Marcos Herrmann MD - 12/22/2016 10:51 [...] new events noted, sign out obtained from shift coordinator person ( nurse and ICU physician). Patient [...] PRN and Respiratory Meds:calcium gluconate IVPB PRN (Piece Cutter from Rx) AND Ionized Calcium PRN AND [...] optimize venous drainage Maintain normothermia, avoid hypoxemia, [place] appropriate osmotherapy ( i.e mannitol vs Hypertonic [...] at risk for aspiration. Social work and registered nurse hh case manager for discharge planning and placement. Family Meeting and update: yes. Patient is unable to make his or her decisions, family updated during rounds. Goals of therapy: Addressed, Patient is a full code Nurses concerns addressed. Disposition/Family: Continue ICU care due to # 1 X Marcos Herrmann MD Microbiology Manager, Departments of Neurology and Radiology Pager: [phone] Date: 12/22/2016 X * Angela Benavides, RESOURCE SPECIALIST TEACHER - 12/22/2016 2:09 PM CDT Formatting of [...] is a 66 y.o. female transfer from [facility] with large left frontal parenchymal hemorrhage found [...] existing cavity. 3. Continued mass effect and [id number] midline shift, difficult to quantify due to patient motion. 12/22 CTA head 1. No cerebral aneurysm or AVM is identified. 2. Stable large anterior left frontal intraparenchymal hematoma with unchanged rightward frontal midline shift and transalar herniation. Angela Benavides, RESOURCE SPECIALIST TEACHER [phone] in this encounter Consult Notes * [...] and therefore needs a PEG tube for nursing home nutrition. Past Medical History: Diagnosis Date Arthritis Chronic back pain Dementia Osteoporosis TIA (transient ischemic attack) No current facility-administered medications on file prior to encounter. No current outpatient prescriptions on file prior to encounter. Past Surgical History: Procedure Laterality Date HX TONSILLECTOMY HYSTERECTOMY ORTHOPEDIC SURGERY RI CRANIECTOMY HMTMA SUPRATENTORIAL INTRACEREBRAL Left 12/24/2016 CRANIOTOMY [...] INR 1.0 12/22/2016 1345 PLTCT 218 12/30/2016 0337 Lab Results Component Value Date/Time NA 141 12/30/2016336 K 4.0 12/30/2016336 CL 111 (H) 12/30/2016336 CO2 24 12/30/2016336 BUN 27 (H) 12/30/2016336 CR 0.69 12/30/2016336 Adam Nicholson MD Personal Pager: [phone] ATTESTATION I personally observed the resident performing [...] : 1950 Primary Insurance: MEDICARE Secondary Insurance: BCBS Tertiary Insurance: Financial Class: Medicare Date of Admission: 12/22/2016 Referring Physician: Antwan Guadarrama MD Reason for Consult: evaluate for Post-Acute Rehab/Placement Precautions: Fall, aspiration Active Problems IPH s/p crani and evacuation Dementia R hemiplegia Global Aphasia Cognitive deficit Impaired ADLs Impaired mobility Assessment & Plan Roxy Phillip is a 66 y.o. female admitted to [facility] on 12/22/2016 with the following issues: [...] removed prior to consideration for admission to [facility]. PT, OT, ST consulted to address deficits as below Impaired gait/mobility: HOME THEATER EXPERIENCE EXPERT pt was independent at community level without assistive device Currently requiring dependent assist for bed mobility. Mechanical lift for transfers. Will benefit from continued work with PT to address mobility deficits Impaired ADL: HOME THEATER EXPERIENCE EXPERT pt was independent Currently requiring total assist [...] hours while supine in bed, pressure relief [id number] in seated position, PRAFOs for pressure relief [...] concerns. Carla Graf MD Rehab Consult Pager: [phone] History of Present Illness Hospital Course: Roxy Phillip is a 66 y.o. female with PMH of dementia and TIA who presented via transfer from [facility] with large left frontal parenchymal hemorrhage found [...] Laterality Date HX TONSILLECTOMY HYSTERECTOMY ORTHOPEDIC SURGERY RI CRANIECTOMY HMTMA SUPRATENTORIAL INTRACEREBRAL Left 12/24/2016 CRANIOTOMY [...] Meds:acetaminophen Q4H PRN, calcium gluconate IVPB PRN (Piece Cutter from Rx) AND Ionized Calcium PRN AND Notify Physician Ongoing, fentaNYL citrate PF Q1H PRN, hydrALAZINE Q6H PRN, HYDROcodone/acetaminophen Q4H PRN, magnesium sulfate PRN AND Magnesium PRN AND Notify Physician Ongoing, ondansetron Q6H PRN, pancrelipase 20,000 Units/ sodium bicarbonate 650 mg(#) PRN (Piece Cutter from Rx), potassium chloride SR PRN OR [...] Shower (12/23/2016 3:00 PM) Patient lives in [place], [place] with her in a house with [...] for safety. TABS alarm and lapbelt on. INTERSTATE BUS DRIVER COGNITIVE EVALUATION SUMMARY PRAGMATICS: BEHAVIOR: AUDITORY COMPREHENSION: [...] arousal. Two attempted swallows were appreciated while INTERSTATE BUS DRIVER was providing oral care. Laryngeal elevation appeared [...] Ronnie Theodore DO Date: 12/28/2016 * Shantal Lopez, SERVANDO - 12/24/2016 2:38 PM CDT Associated Order(s): CONSULT DIETITIAN CLINICAL NUTRITION Clinical Nutrition Assessment Summary Nutrition Assessment of Patient: Unintentional Weight Loss: > 10% in 6 months (severe) Malnutrition Assessment: Malnutrition present Malnutrition Context: ICD-10 code E43: Chronic illness/Severe malnutrition Estimated Calorie Needs: 8851-1792 (28-30 kcal/kg present wt 55.4kg) Estimated Protein Needs: 65-75 (1.2-1.4g/kg present wt 55.4kg) Oral Diet Order: NPO Comment: 66 y.o. female w/ PMH including dementia, chronic back pain, TIA; transferred to [facility] 12/22 with large left frontal parenchymal [...] reflux, choking and swallowing limiting recent intake HOME THEATER EXPERIENCE EXPERT. Meets criteria for severe malnutrition in chronic [...] deficits with AMS;stroke Signs & Symptoms: NPO, INTERSTATE BUS DRIVER findings, orders for EN consult Goals: Initiate nutrition Time Frame: Within [address] * Abhijeet Chin, JAYLA - 12/22/2016 1:19 PM CDT Associated Order(s): [...] arthritis , chronic back pain, admitted to [facility] with ICH on 12/22/16. Hospital and ICU [...] - Electrolyte replacement protocol Prophylaxis Review: A)GI: PPI/[id number] B) Lines: No C) Urinary Catheter: Yes; Retain fung due to: Need for accurate Intake and Output D) Antibiotic Usage: No E) VTE: Mechanical prophylaxis; Sequential compression device F) Isolation: no G)Seizures: keppra I) Restraints: Patient assessed for need for restraints. Disposition/Family: ICU Primary service: NS Consults: NEVanesa SUBJECTIVE Chief Complaint: ICH History of Present Illness: Roxy Phillip is a 66 y.o. female PMH TIA, dementia, osteoporosis, arthritis, chronic back pain, admitted to [facility] with ICH on 12/22/16. This morning her [...] 56.1 kg (123 lb 10.9 oz) (12/22 131) Temp: [36.8 C (98.2 F)] Intensity Pain [...] radiologic and diagnostic procedures reviewed. Abhijeet Chin, RESOURCE SPECIALIST TEACHER Date: 12/22/[phone] I spent 60 minutes managing the care [...] days Todays Date: 01/06/2017 Plan: DC to [facility] via stretcher van at 1530. RN Report# [phone] ABBY reviewed EMR for POC and is [...] wearing mitts. ABBY reviewed with Frank that [facility] has said that pt would be appropriate for IPR level of care. Additional education provided to Frank regarding IPR level of care , especially in comparison with SNF level of care. Frank reported that he is 90% certain that he and family would have preference [facility] [facility] though he wishes to discuss this with [...] that he plans to go to a opvizor game tomorrow with his nephew for some time away from the hospital. ABBY received phone call from Frank who reported that after discuss with Soledad and his son, all family is in agreement with plan for DC to [facility]. ABBY answered all necessary questions. ABBY provided [...] Rehabilitation ABBY discussed pt with Yanelis at [facility]. ABBY provided update to Yanelis that family has officially decided on DC plan to [facility]. Ilan mattson to fruit picker machine operator pt at 1530. RN Report# [phone]. ABBY provided update to primary team and [...] Disposition: Inpatient Rehab Facility (IRF) Inpatient Rehab: [facility] ([phone]) ? Next Level Care Betsy Peña LMSW Phone: [phone] * Case Mgmt DC Plan - Mattie [...] RN back with final determination on placement. [phone] - Per Betsy (ABBY), patient's family would like to pursue placement at for IRF level of care. Transportation will be scheduled for 1530 via stretcher van with [facility]. Betsy to notify patient's primary RN of discharge time, rehab bed assignment of 2206 and unit phone# for report ([phone]). Please leave in any functioning IV access for transition to 's IP rehab unit. Ryan, Inpatient Admissions Nurse/Rehab. ([phone]). * Care Plan - Angelica oNva, VANESSA - 01/06/2017 1:25 AM CDT Problem: [...] ? Discharge Planning Discharge Planning: Inpatient Rehabilitation, Jail Facility ABBY let a message for Yanelis at [facility], ABBY requested phone call back. ABBY returned a call from Nena Randolph, to provide update on pt. Tomasa requested to be kept update on pt if pt decides to dc there. Tomasa's contact number is [phone] Update 8295 ABBY received a page from Yanelis at [facility] letting ABBY know Yanelis had paged rehab consult team for f/u. ABBY received a page from [facility] letting ABBY know pt would be reviewed again tomorrow but it was looking as if pt was more appropriate for SNF at this time. ? Medication Needs ? Financial ? Legal ? Other Disposition ? Discharge Preparation Type of Residence: Private residence Patient expects to be discharged to: Jail Facility Was the patient receiving home care services?: No ? Expected Discharge Expected Discharge Date: 01/06/17 ? Discharge Disposition Izabella Roque [phone] * Care Plan - Shakeel Brito RN [...] Meds:acetaminophen Q4H PRN, calcium gluconate IVPB PRN (Piece Cutter from Rx) AND Ionized Calcium PRN AND Notify Physician Ongoing, hydrALAZINE Q6H PRN, HYDROcodone/acetaminophen Q4H PRN, magnesium sulfate PRN AND Magnesium PRN AND Notify Physician Ongoing, ondansetron Q6H PRN, pancrelipase 20,000 Units/ sodium bicarbonate 650 mg(#) PRN (Piece Cutter from Rx), potassium chloride SR PRN OR [...] note may be different from the original. [facility] [address] [place], [place] [address] PATIENT NAME: ROXY PHILLIP MR#/PT#: [id number] Page 2 OPERATIVE REPORT DATE OF OPERATION: 01/02/2017 SURGEON: Jong Hankins MD DOOR TO DOOR SALES REPRESENTATIVE(S): Calvin Lundberg MD PREOPERATIVE DIAGNOSIS: Dysphagia. POSTOPERATIVE [...] and removed completely by the endoscopist. A 24-Bolivian PEG tube was then secured to the [...] There were no specimens removed. DRAINS: Include 24-Bolivian percutaneous endoscopic gastrostomy. COMPLICATIONS: None. Jong Hankins MD ATTESTATION I performed this procedure with a resident. Staff name: Jong Hankins MD Date: 01/08/2017 Dictated by: Calvin Lundberg MD / MED /[id number] P cc: - Jong Hankins MD * [...] PACU - stable Jong Hankins MD Pager [phone] * Case Mgmt DC Plan - Betsy Peña - 01/01/2017 4:18 PM CDT Case Management Progress Note NAME:Roxy Phillip :1950 AGE: 66 y.o. ADMISSION DATE: 12/22/2016 DAYS ADMITTED: LOS: 10 days Todays Date: 01/01/2017 Plan: DC planning to inpt setting. ABBY reviewed EMR for POC and is following for assistance with DC planning. SW discussed pt with neurosurgery team. RESOURCE SPECIALIST TEACHER notes marked improvement in pt's alertness. Peg was not able to be placed yesterday. Plan for peg placement Thursday. Videoswallow scheduled for Thursday. Disucssion of most appropriate level of care with RESOURCE SPECIALIST TEACHER. RESOURCE SPECIALIST TEACHER in agreement with plan for rehab team follow up on Thursday. Interventions ? Support Support: Pt/Family Updates re:POC or DC Plan, Counseling for Adaptation to Illness ABBY met with pt's Frank in room. Frank indicated that he would like for pt to have more aggressive therapies than [facility] offers. ABBY reviewed new plan for rehab team to follow up with most appropriate level of care recommendations on Thursday. Frank in agreement and voiced that he would want to got to IPR at [facility] in [place], [place]. ABBY provided education that this is actually a SNF. Frank indicated that he thought it was a higher level of care than [facility] due to having Rehab in the [...] the care pt has received while at [facility]. He denied further needs at this time. ? Info or Referral ? Discharge Planning Discharge Planning: Inpatient Rehabilitation, Jail Facility ABBY followed up on referral at [facility]. Respiratory Tech confirmed receipt of the referral but noted that admissions staff were out of the office but would call ABBY back. ABBY discussed possible rehab team follow up on Thursday with Yanelis at Rehab. In agreement. ? Medication Needs ? Financial ? Legal ? Other Disposition ? Discharge Preparation Type of Residence: Private residence Patient expects to be discharged to: Jail Facility Was the patient receiving home care services?: No ? Expected Discharge Expected Discharge Date: 01/06/17 ? Discharge Disposition ? [facility] Betsy Peña LMSW Phone: [phone] * Case Mgmt DC Plan - Alison Acosta - 12/31/2016 4:11 PM CDT Request to Send Referral Received request from Betsy Peña [facility] to send referral to the following facility: [facility] [address] [place] [id number] Alison Acosta Hair Weaver For additional assistance please contact [facility] *[phone] * Case Mgmt DC Plan - Betsy Peña - 12/31/2016 3:59 PM CDT Case Management Progress Note NAME:Roxy Phillip :1950 AGE: 66 y.o. ADMISSION DATE: 12/22/2016 DAYS ADMITTED: LOS: 9 days Todays Date: 12/31/2016 Plan: Referral pending at [facility] SNF. ABBY reviewed EMR for POC and is following for assistance with DC planning. ABBY discussed pt with neurosurgery team. Team reports plan for peg tube placement today. Anticipate stability for DC at the end of the week. Interventions ? Support Support: Pt/Family Updates re:POC or DC Plan, Counseling for Adaptation to Illness ABBY met with pt's Frank in [facility] as pt working with INTERSTATE BUS DRIVER. Frank reported that their dtr Soledad has been looking into SNFs for pt and has identified one of interest located in [place], [place]. Frank was unable to remember the name of the facility. Frank inquired into whether Rehab was an option for pt. ABBY educated that presently, the recommendation remains for SNF level of care. Frank verbalized understanding. Frank inquired into transportation to [facility] should this be the place that pt ends up DCing to. ABBY reviewed that ABBY would like to discuss this with PT and other parties to ensure that most appropriate plan is arranged. Plan for continued discussion on transportation for pt tomorrow. Frank in agreement. Frank agreeable to plan of ABBY calling Soledad to find out name of facility (suspect it is [facility] from google search) and send referral accordingly. ABBY phoned Soledad who confirmed that name of facility she is most interested in presently is [facility]. She is also agreeable to referral being sent there. She noted that she is trying to find the best care for pt but is unfamiliar with the facilities in [place]. ABBY provided education on Medicare Jail Compare tool which Soledad indicated she would review this evening. She reported she is agreeable to ABBY follow up tomorrow to see if there are any additional referrals she would like sent. Plan also for ABBY to provide Medicare Jail compare list to Frank as well as the ratings for [facility] ( not on the initial list as it is over 50 miles from [place], [place]). ABBY presented to pt's room and reviewed with Frank the discussion with Soledad. ABYB provided the USP compare list for [place] and information specific to [facility]. Frank was very appreciative. ? Info or Referral ? Discharge Planning Discharge Planning: Jail Facility ABBY discussed pt with Yanelis at Rehab. ABBY discussed pt with PT. Even with pt's progress with therapies, PT still believes SNF is most appropriate for pt. ABBY tasked GLOBAL TECHNICAL WRITER to send referral to [facility] SNF. ? Medication Needs ? Financial ? Legal ? Other Disposition ? Discharge Preparation Type of Residence: Private residence Patient expects to be discharged to: Jail Facility Was the patient receiving home care services?: No ? Expected Discharge Expected Discharge Date: 01/02/17 ? Discharge Disposition ? [facility] Level Care Betsy Peña LMSW Phone: [phone] * Case Mgmt DC Plan - Betsy [...] residence Patient expects to be discharged to: Jail Facility Was the patient receiving home care services?: No ? Expected Discharge Expected Discharge Date: 01/02/17 ? Discharge Disposition ? Next Level Care Betsyelsie Peña LMSW Phone: [phone] * Critical Results - Delaney Lechuga RN - 12/27/2016 3:15 PM CDT Critical result or procedure called (document test and value, and read back): Blood culture drawn 12/26/16 from Left Forearm grew gram + cocci resembling staph Time MD/PRODUCT MANAGEMENT CONSULTANT Notified: 1510 MD/PRODUCT MANAGEMENT CONSULTANT Name: Terry Chin MD/PRODUCT MANAGEMENT CONSULTANT Response/Orders Given: No new orders at this [...] doing well and had just come from [facility] to obtain more necessities for while he is staying at [facility] with pt. Frank reported that his nieces are flying in this weekend and his dtr is coming up from [facility] this afternoon for the remainder of the weekend. Frank endorsed feeling well supported during this time. Denied needs prior to the weekend. ? Info or Referral ? Discharge Planning ? Medication Needs ? Financial ? Legal ? Other Disposition ? Discharge Preparation Type of Residence: Private residence Patient expects to be discharged to: Jail Facility Was the patient receiving home care services?: No ? Expected Discharge Expected Discharge Date: 12/30/16 ? Discharge Disposition ? Next Level Care Betsy Peña [facility] Phone: [phone] * Anesthesia Post Op Day 1 - [...] PRN and Respiratory Meds:calcium gluconate IVPB PRN (Piece Cutter from Rx) AND Ionized Calcium PRN AND [...] different from the original. NEUROSURGERY OPERATIVE REPORT [facility] [address] [place], [place] [address] PATIENT NAME: Roxy Phillip MR#/PT#: [id number] DATE OF OPERATION: 12/25/16 SURGEON: Antwan Guadarrama MD CO-SURGEON: None DOOR TO DOOR SALES REPRESENTATIVE(S): Suman Franco MD PREOPERATIVE DIAGNOSIS: 1. Intraparenchymal hemorrhage of brain (HCC) [I61.9] POSTOPERATIVE DIAGNOSIS: Same. OPERATIVE PROCEDURE: 1. Left frontal burrhole craniotomy for evacuation of ICH 2. Use of neuronavigation for stereotactic implantation of EVD ANESTHESIA: General INDICATIONS FOR OPERATIVE PROCEDURE: Please see full dictated H and P. Briefly, Roxy Phillip is a 66 y.o. female transfer from [facility] with large left frontal parenchymal hemorrhage found [...] padded. Patient's head was placed in the [place] cranial tongs secured the bed with the bed attachment. The head was turned towards the right side in the apparatus for exposure of the left frontal region at the highest point of the exposure. BrainLab reference star was attached to the [place] in the patient's preoperative CT was utilized [...] silk stitch. Patient was removed from the [place] cranial tongs and taken to the ICU [...] had forgotten to bring his medications to [facility] and had not taken any for a couple of days. He began feeling poorly this morning. Per RN report, Frank's medications are being phoned to Pharmacy so he can start taking them again. SW met with Frank in [facility] while pt was receiving cares from staff in preparation for surgery this afternoon. SW offered emotional support to Frank. Frank shared with SW that he had forgotten his medications. SW reviewed need for self-care while at [facility]. SW inquired into Frank's ongoing support system. Frank reported that his dtr is still at [facility] which he finds very helpful. He also [...] [facility] Betsy Peña LMSW Phone: [phone] * Case Mgmt DC Plan - Betsy Peña - 12/23/2016 1:55 PM CDT Formatting [...] Emergency Contact Information Primary Emergency Contact: [place] [address] [facility] Relation: Spouse Secondary Emergency Contact: Soledad Phillip [facility] Relation: Daughter DPOA None. Transportation Does the patient need discharge transport arranged?: No Transportation Name, Phone and Availability #1: Soledad ([phone]) Does the patient use Medicaid Transportation?: No [...] (BCBS) Additional Coverage: RX (Fills medications at [facility] in [place]. Reports medications are affordable.) SW scanned BCBS card and tubed to admitting. ? Source of Income Source Of Income: Other senior care income ? Financial Assistance Needed? No Current/Previous [...] ? Outpatient Therapy PT: No OT: No INTERSTATE BUS DRIVER: No ? SNF/NH SNF: No NH: No [...] Drug Use No Betsy Peña LMSW Phone: [phone] in this encounter Plan of Treatment Not [...] CDT procedure are in the results section. CRANIOTOMY EVACUATION 12/24/2016 Intraparenchymal HEMATOMA supine 12:55 [...] MG/DL Specimen Performing Laboratory MAIN LAB [address] [place] [address] * POC GLUCOSE (01/06/2017 7:35 AM) Component Value Ref Range Glucose, POC 226 (H) 70 - 100 MG/DL Specimen Performing Laboratory MAIN LAB [address] [place] [address] * CBC AND DIFF (01/06/2017 5:54 AM) [...] K/UL Specimen Performing Laboratory Blood MAIN LAB [address] [place] [address] * BASIC METABOLIC PANEL (01/06/2017 5:54 AM) [...] questions. Specimen Performing Laboratory Blood MAIN LAB [address] [place], [place] [id number] * PHOSPHORUS (01/06/2017 5:54 AM) Component Value Ref Range Phosphorus 3.6 2.0 - 4.0 MG/DL Specimen Performing Laboratory Blood MAIN LAB [address] [place], [place] [id number] * MAGNESIUM (01/06/2017 5:54 AM) Component Value Ref Range Magnesium 2.4 1.6 - 2.6 mg/dL Specimen Performing Laboratory Blood MAIN LAB [address] [place], [place] [id number] * IONIZED CALCIUM (01/06/2017 5:54 AM) Component Value Ref Range Ionized Calcium 1.20 1.0 - 1.3 MMOL/L Specimen Performing Laboratory Blood MAIN LAB [address] [place], [place] [id number] * POC GLUCOSE (01/06/2017 2:46 AM) Component Value Ref Range Glucose, POC 194 (H) 70 - 100 MG/DL Specimen Performing Laboratory MAIN LAB [address] [place], [place] [id number] * POC GLUCOSE (01/05/2017 8:30 PM) Component Value Ref Range Glucose, POC 209 (H) 70 - 100 MG/DL Specimen Performing Laboratory MAIN LAB [address] [place], [place] [id number] * POC GLUCOSE (01/05/2017 6:08 PM) Component Value Ref Range Glucose, POC 176 (H) 70 - 100 MG/DL Specimen Performing Laboratory [facility] MAIN [facility] [address] [place] [address] * SWALLOW MOTION SERIES (01/05/2017 2:45 PM) [...] Performing Laboratory Urine [facility] MAIN [facility] [address] [place] [address] Organism Antibiotic Method Susceptibility >100,000 organisms/ml Nitrofurantoin [...] LABEL Specimen Performing Laboratory Urine MAIN LAB [address] [place] [address] * URINALYSIS MICROSCOPIC REFLEX TO CULTURE (01/05/2017 [...] 0 - 5 Specimen Performing Laboratory Urine [facility] LAB [address] [place] [address] * URINALYSIS DIPSTICK REFLEX TO CULTURE (01/05/2017 1:11 PM) Component Value Ref Range Color,UA YELLOW Turbidity,UA 1+ (A) CLEAR-CLEAR Specific [place]-Urine 1.021 1.003 - 1.035 pH,UA 6.0 5.0 [...] result. Specimen Performing Laboratory Urine MAIN LAB [address] [place] [address] * POC GLUCOSE (01/05/2017 12:21 PM) Component Value Ref Range Glucose, POC 319 (H) 70 - 100 MG/DL Specimen Performing Laboratory MAIN LAB [address] [place] [address] * POC GLUCOSE (01/05/2017 8:19 AM) Component Value Ref Range Glucose, POC 170 (H) 70 - 100 MG/DL Specimen Performing Laboratory MAIN LAB [address] [place] [address] * PHOSPHORUS (01/05/2017 5:35 AM) Component Value Ref Range Phosphorus 3.7 2.0 - 4.0 MG/DL Specimen Performing Laboratory Blood MAIN LAB [address] [place] [address] * MAGNESIUM (01/05/2017 5:35 AM) Component Value Ref Range Magnesium 2.6 1.6 - 2.6 mg/dL Specimen Performing Laboratory Blood MAIN LAB [address] [place] [address] * CBC AND DIFF (01/05/2017 5:35 AM) [...] Specimen Performing Laboratory Blood MAIN LAB [address] [place] [address] * BASIC METABOLIC PANEL (01/05/2017 5:35 AM) [...] Pharmacist for questions. Specimen Performing Laboratory Blood [facility] [address] [place] [address] * IONIZED CALCIUM (01/05/2017 4:00 AM) Component Value Ref Range Ionized Calcium 1.20 1.0 - 1.3 MMOL/L Specimen Performing Laboratory Blood [facility] [address] [place] [address] * POC GLUCOSE (01/05/2017 3:43 AM) Component Value Ref Range Glucose, POC 256 (H) 70 - 100 MG/DL Specimen Performing Laboratory [facility] [address] [place] [address] * POC GLUCOSE (01/04/2017 8:23 PM) Component Value Ref Range Glucose, POC 224 (H) 70 - 100 MG/DL Specimen Performing Laboratory [facility] [address] [place] [address] * POC GLUCOSE (01/04/2017 4:35 PM) Component Value Ref Range Glucose, POC 241 (H) 70 - 100 MG/DL Specimen Performing Laboratory [facility] [address] [place] [address] * POC GLUCOSE (01/04/2017 12:44 PM) Component Value Ref Range Glucose, POC 272 (H) 70 - 100 MG/DL Specimen Performing Laboratory [facility] [address] [place] [address] * POC GLUCOSE (01/04/2017 7:55 AM) Component Value Ref Range Glucose, POC 241 (H) 70 - 100 MG/DL Specimen Performing Laboratory [facility] [address] [place] [address] * PHOSPHORUS (01/04/2017 4:52 AM) Component Value Ref Range Phosphorus 3.8 2.0 - 4.0 MG/DL Specimen Performing Laboratory Blood [facility] [address] [place] [address] * MAGNESIUM (01/04/2017 4:52 AM) Component Value Ref Range Magnesium 2.6 1.6 - 2.6 mg/dL Specimen Performing Laboratory Blood MAIN LAB [address] [place] [address] * IONIZED CALCIUM (01/04/2017 4:52 AM) Component Value Ref Range Ionized Calcium 1.20 1.0 - 1.3 MMOL/L Specimen Performing Laboratory Blood MAIN LAB [address] [place] [address] * CBC AND DIFF (01/04/2017 4:52 AM) [...] Specimen Performing Laboratory Blood MAIN LAB [address] [place] [address] * BASIC METABOLIC PANEL (01/04/2017 4:52 AM) [...] Pharmacist for questions. Specimen Performing Laboratory Blood [facility] [address] [place] [address] * POC GLUCOSE (01/04/2017 4:09 AM) Component Value Ref Range Glucose, POC 194 (H) 70 - 100 MG/DL Specimen Performing Laboratory [facility] [address] [place] [address] * POC GLUCOSE (01/03/2017 8:39 PM) Component Value Ref Range Glucose, POC 124 (H) 70 - 100 MG/DL Specimen Performing Laboratory [facility] [address] [place], [place] [id number] * POC GLUCOSE (01/03/2017 4:53 PM) Component Value Ref Range Glucose, POC 142 (H) 70 - 100 MG/DL Specimen Performing Laboratory [facility] [address] [place] [address] * POC GLUCOSE (01/03/2017 12:22 PM) Component Value Ref Range Glucose, POC 139 (H) 70 - 100 MG/DL Specimen Performing Laboratory [facility] [address] [place], [place] [id number] * IONIZED CALCIUM (01/03/2017 9:48 AM) Component Value Ref Range Ionized Calcium 1.18 1.0 - 1.3 MMOL/L Specimen Performing Laboratory [facility] [address] [place], [place] [id number] * PHOSPHORUS (01/03/2017 9:33 AM) Component Value Ref Range Phosphorus 5.0 (H) 2.0 - 4.0 MG/DL Specimen Performing Laboratory Blood [facility] [address] [place], [place] [id number] * MAGNESIUM (01/03/2017 9:33 AM) Component Value Ref Range Magnesium 2.8 (H) 1.6 - 2.6 mg/dL Specimen Performing Laboratory Blood [facility] [address] [place], [place] [id number] * CBC AND DIFF (01/03/2017 9:33 AM) [...] Specimen Performing Laboratory Blood MAIN LAB [address] [place] [address] * BASIC METABOLIC PANEL (01/03/2017 9:33 AM) [...] Specimen Performing Laboratory Blood MAIN LAB [address] [place] [address] * POC GLUCOSE (01/03/2017 8:32 AM) Component Value Ref Range Glucose, POC 133 (H) 70 - 100 MG/DL Specimen Performing Laboratory [facility] [address] [place] [address] * POC GLUCOSE (01/02/2017 9:10 PM) Component Value Ref Range Glucose, POC 116 (H) 70 - 100 MG/DL Specimen Performing Laboratory [facility] [address] [place] [address] * POC GLUCOSE (01/02/2017 4:44 PM) Component Value Ref Range Glucose, POC 137 (H) 70 - 100 MG/DL Specimen Performing Laboratory [facility] [address] [place] [address] * POC GLUCOSE (01/02/2017 11:36 AM) Component Value Ref Range Glucose, POC 197 (H) 70 - 100 MG/DL Specimen Performing Laboratory [facility] [address] [place], [place] [id number] * POC GLUCOSE (01/02/2017 8:53 AM) Component Value Ref Range Glucose, POC 146 (H) 70 - 100 MG/DL Specimen Performing Laboratory [facility] [address] [place], [place] [id number] * IONIZED CALCIUM (01/02/2017 5:00 AM) Component Value Ref Range Ionized Calcium 0.99 (L)Comment: CHECKED 1.0 - 1.3 MMOL/L Specimen Performing Laboratory Blood [facility] LAB [address] [place], [place] [id number] * PHOSPHORUS (01/02/2017 4:59 AM) Component Value Ref Range Phosphorus 4.5 (H) 2.0 - 4.0 MG/DL Specimen Performing Laboratory Blood [place] [id number] * MAGNESIUM (01/02/2017 4:59 AM) Component Value Ref Range Magnesium 2.7 (H) 1.6 - 2.6 mg/dL Specimen Performing Laboratory Blood [facility] LAB [address] [place] [address] * CBC AND DIFF (01/02/2017 4:59 AM) [...] Specimen Performing Laboratory Blood MAIN LAB [address] [place] [address] * BASIC METABOLIC PANEL (01/02/2017 4:59 AM) [...] Specimen Performing Laboratory Blood MAIN LAB [address] [place] [address] * POC GLUCOSE (01/01/2017 8:32 PM) Component Value Ref Range Glucose, POC 182 (H) 70 - 100 MG/DL Specimen Performing Laboratory MAIN LAB [address] [place] [address] * POC GLUCOSE (01/01/2017 5:49 PM) Component Value Ref Range Glucose, POC 221 (H) 70 - 100 MG/DL Specimen Performing Laboratory MAIN LAB [address] [place] [address] * POC GLUCOSE (01/01/2017 12:02 PM) Component Value Ref Range Glucose, POC 189 (H) 70 - 100 MG/DL Specimen Performing Laboratory [facility] [address] [place] [address] 40766 * POC GLUCOSE (01/01/2017 8:06 AM) Component Value Ref Range Glucose, POC 231 (H) 70 - 100 MG/DL Specimen Performing Laboratory [facility] [address] [place] [address] 99893 * PHOSPHORUS (01/01/2017 5:07 AM) Component Value Ref Range Phosphorus 3.5 2.0 - 4.0 MG/DL Specimen Performing Laboratory Blood [facility] [address] [place] [address] 36003 * MAGNESIUM (01/01/2017 5:07 AM) Component Value Ref Range Magnesium 2.6 1.6 - 2.6 mg/dL Specimen Performing Laboratory Blood [facility] [address] [place] [address] 33778 * IONIZED CALCIUM (01/01/2017 5:07 AM) Component Value Ref Range Ionized Calcium 1.15 1.0 - 1.3 MMOL/L Specimen Performing Laboratory Blood [facility] [address] [place], [place] [id number] * CBC AND DIFF (01/01/2017 5:07 AM) [...] - 0.20 K/UL Specimen Performing Laboratory Blood [facility] [address] [place] [address] 95129 * BASIC METABOLIC PANEL (01/01/2017 5:07 AM) [...] Pharmacist for questions. Specimen Performing Laboratory Blood [facility] [address] [place] [address] 13618 * POC GLUCOSE (01/01/2017 4:00 AM) Component Value Ref Range Glucose, POC 191 (H) 70 - 100 MG/DL Specimen Performing Laboratory [facility] [address] [place] [address] 95200 * POC GLUCOSE (12/31/2016 8:29 PM) Component Value Ref Range Glucose, POC 132 (H) 70 - 100 MG/DL Specimen Performing Laboratory [facility] [address] [place] [address] 50245 * POC GLUCOSE (12/31/2016 5:21 PM) Component Value Ref Range Glucose, POC 149 (H) 70 - 100 MG/DL Specimen Performing Laboratory [facility] [address] [place] [address] 91344 * POC GLUCOSE (12/31/2016 1:11 PM) Component Value Ref Range Glucose, POC 162 (H) 70 - 100 MG/DL Specimen Performing Laboratory [facility] [address] [place] [address] 67645 * POC GLUCOSE (12/31/2016 8:53 AM) Component Value Ref Range Glucose, POC 134 (H) 70 - 100 MG/DL Specimen Performing Laboratory [facility] [address] [place] [address] 61818 * PHOSPHORUS (12/31/2016 5:25 AM) Component Value Ref Range Phosphorus 3.5 2.0 - 4.0 MG/DL Specimen Performing Laboratory Blood [facility] [address] [place] [address] 94834 * MAGNESIUM (12/31/2016 5:25 AM) Component Value Ref Range Magnesium 2.3 1.6 - 2.6 mg/dL Specimen Performing Laboratory Blood [facility] [address] [place], [place] [id number] * IONIZED CALCIUM (12/31/2016 5:25 AM) Component Value Ref Range Ionized Calcium 1.12 1.0 - 1.3 MMOL/L Specimen Performing Laboratory Blood [facility] [address] [place], [place] [id number] * CBC AND DIFF (12/31/2016 5:25 AM) [...] K/UL Specimen Performing Laboratory Blood [facility] [address] [place], [place] [id number] * BASIC METABOLIC PANEL (12/31/2016 5:25 AM) [...] Pharmacist for questions. Specimen Performing Laboratory Blood [facility] [address] [place] [address] 75831 * POC GLUCOSE (12/31/2016 4:11 AM) Component Value Ref Range Glucose, POC 121 (H) 70 - 100 MG/DL Specimen Performing Laboratory [facility] [address] [place] [address] 48953 * POC GLUCOSE (12/30/2016 8:41 PM) Component Value Ref Range Glucose, POC 151 (H) 70 - 100 MG/DL Specimen Performing Laboratory [facility] [address] [place] [address] 32877 * POC GLUCOSE (12/30/2016 5:43 PM) Component Value Ref Range Glucose, POC 159 (H) 70 - 100 MG/DL Specimen Performing Laboratory [facility] [address] [place] [address] 47312 * US DOPPLER VENOUS BILATERAL (12/30/2016 1:20 [...] MG/DL Specimen Performing Laboratory [facility] [address] [place] [address] * POC GLUCOSE (12/30/2016 7:51 AM) Component Value Ref Range Glucose, POC 143 (H) 70 - 100 MG/DL Specimen Performing Laboratory [facility] [address] [place] [address] * IONIZED CALCIUM (12/30/2016 3:37 AM) Component Value Ref Range Ionized Calcium 1.01 1.0 - 1.3 MMOL/L Specimen Performing Laboratory Blood [facility] [address] [place] [address] 91688 * PHOSPHORUS (12/30/2016 3:37 AM) Component Value Ref Range Phosphorus 4.3 (H) 2.0 - 4.0 MG/DL Specimen Performing Laboratory Blood [facility] [address] [place] [address] * MAGNESIUM (12/30/2016 3:37 AM) Component Value Ref Range Magnesium 2.2 1.6 - 2.6 mg/dL Specimen Performing Laboratory Blood [facility] [address] [place] [address] * CBC AND DIFF (12/30/2016 3:37 AM) [...] Specimen Performing Laboratory Blood [facility] [address] [place] [address] * BASIC METABOLIC PANEL (12/30/2016 3:37 AM) [...] questions. Specimen Performing Laboratory Blood [facility] [address] [place] [address] 83165 * POC GLUCOSE (12/30/2016 3:27 AM) Component Value Ref Range Glucose, POC 196 (H) 70 - 100 MG/DL Specimen Performing Laboratory [facility] [address] [place] [address] 12765 * POC GLUCOSE (12/29/2016 8:38 PM) Component Value Ref Range Glucose, POC 148 (H) 70 - 100 MG/DL Specimen Performing Laboratory [facility] [address] [place] [address] 22710 * POC GLUCOSE (12/29/2016 5:25 PM) Component Value Ref Range Glucose, POC 165 (H) 70 - 100 MG/DL Specimen Performing Laboratory [facility] [address] [place] [address] 65636 * SODIUM (12/29/2016 4:55 PM) Component Value Ref Range Sodium 142 137 - 147 MMOL/L Specimen Performing Laboratory Blood [facility] [address] [place] [address] 63372 * POC GLUCOSE (12/29/2016 12:04 PM) Component Value Ref Range Glucose, POC 109 (H) 70 - 100 MG/DL Specimen Performing Laboratory [facility] [address] [place] [address] 19114 * IR ARTERIOGRAM NEURO (12/29/2016 11:09 AM) [...] recurrent hemorrhage in the left frontal region. ELECTRICAL SUPERINTENDENT. Laurent DOOR TO DOOR SALES REPRESENTATIVE. 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 Local with Sedation PROCEDURE. Ultrasound [...] insure maintain an air free system. A 5-Bolivian diagnostic catheter was introduced through the sheath. Utilizing a combination of roadmap, guidewire and direct catheter access techniques, a 5 [place]ian diagnostic catheter was used to perform diagnostic [...] recurrent hemorrhage in the left frontal region. ELECTRICAL SUPERINTENDENT. Laurent DOOR TO DOOR SALES REPRESENTATIVE. 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 Local with Sedation PROCEDURE. Ultrasound [...] insure maintain an air free system. A 5-Bolivian diagnostic catheter was introduced through the sheath. Utilizing a combination of roadmap, guidewire and direct catheter access techniques, a 5 [place] diagnostic catheter was used to perform diagnostic [...] 100 MG/DL Specimen Performing Laboratory [facility] [address] [place] [address] 26661 * IONIZED CALCIUM (12/29/2016 4:23 AM) Component Value Ref Range Ionized Calcium 1.11 1.0 - 1.3 MMOL/L Specimen Performing Laboratory Blood [facility] [address] [place] [address] 69485 * PHOSPHORUS (12/29/2016 4:23 AM) Component Value Ref Range Phosphorus 3.5 2.0 - 4.0 MG/DL Specimen Performing Laboratory Blood [facility] [address] [place] [address] 40579 * MAGNESIUM (12/29/2016 4:23 AM) Component Value Ref Range Magnesium 2.2 1.6 - 2.6 mg/dL Specimen Performing Laboratory Blood [facility] [address] [place] [address] 46128 * CBC AND DIFF (12/29/2016 4:23 AM) [...] Specimen Performing Laboratory Blood [facility] [address] [place] [address] * BASIC METABOLIC PANEL (12/29/2016 4:23 AM) [...] questions. Specimen Performing Laboratory Blood [facility] [address] [place] [address] 46702 * POC GLUCOSE (12/29/2016 4:08 AM) Component Value Ref Range Glucose, POC 145 (H) 70 - 100 MG/DL Specimen Performing Laboratory [facility] [address] [place] [address] * SODIUM (12/28/2016 9:53 PM) Component Value Ref Range Sodium 147 137 - 147 MMOL/L Specimen Performing Laboratory Blood [facility] [address] [place] [address] * POC GLUCOSE (12/28/2016 8:30 PM) Component Value Ref Range Glucose, POC 134 (H) 70 - 100 MG/DL Specimen Performing Laboratory [facility] [address] [place] [address] * MRI HEAD WO/W CONTRAST (12/28/2016 7:15 [...] MG/DL Specimen Performing Laboratory [facility] [address] [place] [address] * SODIUM (12/28/2016 4:18 PM) Component Value Ref Range Sodium 152 (H) 137 - 147 MMOL/L Specimen Performing Laboratory Blood [facility] [address] [place] [address] 50119 * MAGNESIUM (12/28/2016 1:09 PM) Component Value Ref Range Magnesium 2.2 1.6 - 2.6 mg/dL Specimen Performing Laboratory Blood [facility] [address] [place] [address] 42717 * POTASSIUM (12/28/2016 1:09 PM) Component Value Ref Range Potassium 4.1 3.5 - 5.1 MMOL/L Specimen Performing Laboratory Blood [facility] [address] [place] [address] 23427 * POC GLUCOSE (12/28/2016 12:22 PM) Component Value Ref Range Glucose, POC 141 (H) 70 - 100 MG/DL Specimen Performing Laboratory [facility] [address] [place] [address] 13805 * CTA NECK WO/W CONTRAST+POST P (12/28/2016 [...] the pharynx. Visualized major branches of the [place] are patent without evidence of [...] the pharynx. Visualized major branches of the [place] are patent without evidence of [...] MMOL/L Specimen Performing Laboratory Blood [facility] [address] [place] [address] 79453 * SODIUM (12/28/2016 9:53 AM) Component Value Ref Range Sodium 142 137 - 147 MMOL/L Specimen Performing Laboratory Blood [facility] [address] [place] [address] 63318 * POC GLUCOSE (12/28/2016 9:04 AM) Component Value Ref Range Glucose, POC 170 (H) 70 - 100 MG/DL Specimen Performing Laboratory [facility] [address] [place] [address] 04700 * POC GLUCOSE (12/28/2016 4:02 AM) Component Value Ref Range Glucose, POC 159 (H) 70 - 100 MG/DL Specimen Performing Laboratory [facility] [address] [place], [place] [id number] * IONIZED CALCIUM (12/28/2016 3:35 AM) Component Value Ref Range Ionized Calcium 1.09 1.0 - 1.3 MMOL/L Specimen Performing Laboratory Blood [facility] [address] [place], [place] [id number] * PHOSPHORUS (12/28/2016 3:35 AM) Component Value Ref Range Phosphorus 3.7 2.0 - 4.0 MG/DL Specimen Performing Laboratory Blood [facility] [address] [place], [place] [id number] * MAGNESIUM (12/28/2016 3:35 AM) Component Value Ref Range Magnesium 1.9 1.6 - 2.6 mg/dL Specimen Performing Laboratory Blood [facility] [address] [place] [address] * CBC AND DIFF (12/28/2016 3:35 AM) [...] K/UL Specimen Performing Laboratory Blood [facility] [address] [place] [address] 21774 * BASIC METABOLIC PANEL (12/28/2016 3:35 AM) [...] questions. Specimen Performing Laboratory Blood [facility] [address] [place] [address] 29547 * SODIUM (12/27/2016 11:04 PM) Component Value Ref Range Sodium 142 137 - 147 MMOL/L Specimen Performing Laboratory Blood [facility] [address] [place] [address] 31701 * PROCALCITONIN (12/27/2016 11:04 PM) Component Value Ref Range Procalcitonin <0.05 <0.10 NG/ML Specimen Performing Laboratory Blood [facility] [address] [place] [address] 92671 * POC GLUCOSE (12/27/2016 9:00 PM) Component Value Ref Range Glucose, POC 151 (H) 70 - 100 MG/DL Specimen Performing Laboratory [facility] [address] [place] [address] * POC GLUCOSE (12/27/2016 5:53 PM) Component Value Ref Range Glucose, POC 135 (H) 70 - 100 MG/DL Specimen Performing Laboratory [facility] [address] [place] [address] * SODIUM (12/27/2016 4:39 PM) Component Value Ref Range Sodium 145 137 - 147 MMOL/L Specimen Performing Laboratory Blood [facility] [address] [place] [address] * PROCALCITONIN (12/27/2016 10:43 AM) Component Value Ref Range Procalcitonin <0.05 <0.10 NG/ML Specimen Performing Laboratory Blood [facility] [address] [place] [address] * SODIUM (12/27/2016 10:43 AM) Component Value Ref Range Sodium 148 (H) 137 - 147 MMOL/L Specimen Performing Laboratory Blood [facility] [address] [place] [address] * CT HEAD WO CONTRAST (12/27/2016 10:12 [...] Performing Laboratory Blood [facility] [address] [place] [address] * PHOSPHORUS (12/27/2016 3:56 AM) Component Value Ref Range Phosphorus 1.6 (L) 2.0 - 4.0 MG/DL Specimen Performing Laboratory Blood [facility] [address] [place] [address] * MAGNESIUM (12/27/2016 3:56 AM) Component Value Ref Range Magnesium 1.9 1.6 - 2.6 mg/dL Specimen Performing Laboratory Blood [facility] [address] [place] [address] 75020 * CBC AND DIFF (12/27/2016 3:56 AM) [...] K/UL Specimen Performing Laboratory Blood [facility] [address] [place] [address] 30241 * BASIC METABOLIC PANEL (12/27/2016 3:56 AM) [...] Specimen Performing Laboratory Blood [facility] [address] [place] [address] 40504 * POTASSIUM (12/26/2016 9:58 PM) Component Value Ref Range Potassium 4.3 3.5 - 5.1 MMOL/L Specimen Performing Laboratory Blood [facility] [address] [place] [address] 96336 * SODIUM (12/26/2016 9:58 PM) Component Value Ref Range Sodium 154 (H) 137 - 147 MMOL/L Specimen Performing Laboratory Blood [facility] [address] [place] [address] 11190 * POTASSIUM (12/26/2016 4:11 PM) Component Value Ref Range Potassium 3.4 (L) 3.5 - 5.1 MMOL/L Specimen Performing Laboratory Blood [facility] [address] [place] [address] 31373 * SODIUM (12/26/2016 4:11 PM) Component Value Ref Range Sodium 156 (H) 137 - 147 MMOL/L Specimen Performing Laboratory Blood [facility] [address] [place] [address] 55238 * CHEST SINGLE VIEW (12/26/2016 2:22 PM) [...] hemidiaphragm with the tip not in the [id number]. Heart size and pulmonary vasculature are within normal limits. No consolidation, pleural effusion, or pneumothorax. ACDF is noted. Partially visualized posterior spinal fixation hardware. Procedure Note Interface, Radiant Results - 12/26/2016 4:44 PM CDT CHEST SINGLE VIEW History: fever. Comparison: Chest radiograph from December 24, 2016. Findings: Enteric tube is in place coursing below the left hemidiaphragm with the tip not in the [id number]. Heart size and pulmonary vasculature are within [...] Specimen Performing Laboratory Urine MAIN [facility] [address] [place] [address] * URINALYSIS MICROSCOPIC REFLEX TO CULTURE (12/26/2016 12:37 PM) Component Value Ref Range WBCs,UA 0-2 0 - 2 /HPF RBCs,UA 2-10 0 - 3 /HPF Comment,UA Urine submitted for reflex culture if criteria are met:WBC>10, positive nitrite and/or >=1+ leukocyte esterase. If quantity is not sufficient, an addendum will follow. MucousUA TRACE Specimen Performing Laboratory Urine [facility] [address] [place] [address] * URINALYSIS DIPSTICK REFLEX TO CULTURE (12/26/2016 12:37 PM) Component Value Ref Range Color,UA YELLOW Turbidity,UA CLEAR CLEAR-CLEAR Specific [place]-Urine 1.017 1.003 - 1.035 pH,UA 8.0 5.0 - 8.0 Protein,UA 1+ (A) NEG-NEG Glucose,UA NEG NEG-NEG Ketones,UA NEG NEG-NEG Bilirubin,UA NEG NEG-NEG Blood,UA 1+ (A) NEG-NEG Urobilinogen,UA NORMAL NORM-NORMAL Nitrite,UA NEG NEG-NEG Leukocytes,UA NEG NEG-NEG Urine Ascorbic Acid, UA NEG NEG-NEG Specimen Performing Laboratory Urine [facility] [address] [place], [place] [id number] * CULTURE-BLOOD W/SENSITIVITY (12/26/2016 12:37 PM) Component Value Ref Range Battery Name BLOOD CULTURE Specimen Description BLOOD LEFT FOREARM Special Requests NONE Culture POSITIVE SMEAR: GRAM POSITIVE COCCI RESEMBLING STAPHYLOCOCCI one bottle only CRITICAL VALUE CALLED TO AND READ BACK BY/TIME/[employer] [place] 12/27/16 1456 TL STAPHYLOCOCCUS, COAGULASE NEGATIVE , probable contamination. Susceptibility performed only by special request. Report Status FINAL 01/01/2017 Specimen Performing Laboratory Blood [facility]IN [facility] [address] [place], [place] [id number] * CULTURE-BLOOD W/SENSITIVITY (12/26/2016 12:37 PM) Component Value Ref Range Battery Name BLOOD CULTURE Specimen Description BLOOD LEFT ANTECUBITAL Special Requests NONE Culture NO GROWTH 5 DAYS Report Status FINAL 01/01/2017 Specimen Performing Laboratory Blood [facility]IN [facility] [address] [place], [place] [id number] * POTASSIUM (12/26/2016 10:30 AM) Component Value Ref Range Potassium 3.4 (L) 3.5 - 5.1 MMOL/L Specimen Performing Laboratory Blood [facility] [address] [place], [place] [id number] * SODIUM (12/26/2016 10:30 AM) Component Value Ref Range Sodium 152 (H) 137 - 147 MMOL/L Specimen Performing Laboratory Blood [facility] [address] [place] [address] 96440 * IONIZED CALCIUM (12/26/2016 4:16 AM) Component Value Ref Range Ionized Calcium 1.07 1.0 - 1.3 MMOL/L Specimen Performing Laboratory Blood [facility] [address] [place] [address] 40310 * PHOSPHORUS (12/26/2016 4:16 AM) Component Value Ref Range Phosphorus 2.6 2.0 - 4.0 MG/DL Specimen Performing Laboratory Blood [facility] [address] [place] [address] 43370 * MAGNESIUM (12/26/2016 4:16 AM) Component Value Ref Range Magnesium 2.2 1.6 - 2.6 mg/dL Specimen Performing Laboratory Blood [facility] [address] [place] [address] * CBC AND DIFF (12/26/2016 4:16 AM) [...] Performing Laboratory Blood [facility] [address] [place] [address] * BASIC METABOLIC PANEL (12/26/2016 4:16 AM) [...] Performing Laboratory Blood [facility] [address] [place] [address] * SODIUM (12/25/2016 10:25 PM) Component Value Ref Range Sodium 151 (H) 137 - 147 MMOL/L Specimen Performing Laboratory Blood [facility] [address] [place] [address] * SODIUM (12/25/2016 4:36 PM) Component Value Ref Range Sodium 151 (H) 137 - 147 MMOL/L Specimen Performing Laboratory Blood [facility] [address] [place] [address] * CT HEAD WO CONTRAST (12/25/2016 2:21 [...] 0.05 NG/ML Specimen Performing Laboratory [facility] [address] [place] [address] 50962 * POTASSIUM (12/25/2016 10:52 AM) Component Value Ref Range Potassium 4.0 3.5 - 5.1 MMOL/L Specimen Performing Laboratory Blood [facility] [address] [place] [address] 06860 * SODIUM (12/25/2016 10:52 AM) Component Value Ref Range Sodium 152 (H) 137 - 147 MMOL/L Specimen Performing Laboratory Blood [facility] [address] [place] [address] 98207 * IONIZED CALCIUM (12/25/2016 3:35 AM) Component Value Ref Range Ionized Calcium 1.09 1.0 - 1.3 MMOL/L Specimen Performing Laboratory Blood [facility] [address] [place] [address] 57662 * PHOSPHORUS (12/25/2016 3:35 AM) Component Value Ref Range Phosphorus 2.4 2.0 - 4.0 MG/DL Specimen Performing Laboratory Blood [facility] [address] [place] [address] 50132 * MAGNESIUM (12/25/2016 3:35 AM) Component Value Ref Range Magnesium 2.2 1.6 - 2.6 mg/dL Specimen Performing Laboratory Blood [facility] [address] [place] [address] * CBC AND DIFF (12/25/2016 3:35 AM) [...] Specimen Performing Laboratory Blood [facility] [address] [place] [address] * BASIC METABOLIC PANEL (12/25/2016 3:35 AM) [...] Performing Laboratory Blood [facility] [address] [place] [address] * SODIUM (12/24/2016 10:00 PM) Component Value Ref Range Sodium 144 137 - 147 MMOL/L Specimen Performing Laboratory Blood [facility] [address] [place] [address] * BLOOD GASES, ARTERIAL (12/24/2016 5:44 PM) Component Value Ref Range pH-Arterial 7.42 7.35 - 7.45 pCO2-Arterial 37 35 - 45 MMHG pO2-Arterial 165 (H) 80 - 100 MMHG Base Deficit-Arterial 0.0 MMOL/L O2 Sat-Arterial 99.6 (H) 95 - 99 % Fumtmpsmosl-FZF-Huh 24.4 21 - 28 MMOL/L Specimen Performing Laboratory Blood, arterial - Blood [facility] [address] [place] [address] * SODIUM (12/24/2016 5:05 PM) Component Value Ref Range Sodium 145 137 - 147 MMOL/L Specimen Performing Laboratory Blood [facility] [address] [place] [address] * CT HEAD WO CONTRAST (12/24/2016 4:33 [...] There is improved intracranial mass effect and tlcz-mq-ltmqe frontal midline shift now measuring 9 mm. [...] There is improved intracranial mass effect and ipdb-mx-fcixx frontal midline shift now measuring 9 mm. [...] at 5:00 PM 12/24/2016 Finalized by Ronnie Hfof M.D. on 12/24/2016 5:12 PM. Dictated by Ronnie Hoff M.D. on 12/24/2016 4:55 PM. * OCCULT BLOOD NON COLON CANCER SCREEN (12/24/2016 2:28 PM) Component Value Ref Range Battery Name OCCULT BLOOD SCREEN Specimen Description FECES Special Requests NONE Occult Blood NEGATIVE Report Status FINAL 12/24/2016 Specimen Performing Laboratory Stool - Feces [facility] [address] [place] [address] * PLAVIX RESISTANCE (PLATELETWORKS) (12/24/2016 1:35 PM) Component Value Ref Range Platelet Inhibition 40 (H) 0 - 15 % Comment: Normal ADP inhibition should be less than 15%. Therapeutic (Plavix and other P2Y 12) levels should be greater than 30%. Specimen Performing Laboratory Blood [facility] [address] [place] [address] * SODIUM (12/24/2016 11:40 AM) Component Value Ref Range Sodium 147 137 - 147 MMOL/L Specimen Performing Laboratory Blood [facility] [address] [place] [address] * CHEST SINGLE VIEW (12/24/2016 4:35 AM) [...] MMOL/L Specimen Performing Laboratory Blood [facility]IN [facility] [address] [place], [place] [id number] * PHOSPHORUS (12/24/2016 4:00 AM) Component Value Ref Range Phosphorus 2.3 2.0 - 4.0 MG/DL Specimen Performing Laboratory Blood [facility] [address] [place], [place] [id number] * MAGNESIUM (12/24/2016 4:00 AM) Component Value Ref Range Magnesium 2.2 1.6 - 2.6 mg/dL Specimen Performing Laboratory Blood [facility] [address] [place], [place] [id number] * CBC AND DIFF (12/24/2016 4:00 AM) [...] K/UL Specimen Performing Laboratory Blood [facility] [address] [place], [place] [id number] * BASIC METABOLIC PANEL (12/24/2016 4:00 AM) [...] Performing Laboratory Blood [facility] [address] [place] [address] * CT HEAD WO CONTRAST (12/24/2016 3:29 [...] significant change in left-sided transalar herniation and awjk-zi-dmylt midline shift, measuring approximately 1.1 cm. There [...] significant change in left-sided transalar herniation and wivj-ea-zdgxk midline shift, measuring approximately 1.1 cm. There [...] Specimen Performing Laboratory Blood [facility] [address] [place] [address] * SODIUM (12/23/2016 9:43 PM) Component Value Ref Range Sodium 142 137 - 147 MMOL/L Specimen Performing Laboratory Blood [facility] [address] [place] [address] * TYPE & CROSSMATCH (12/23/2016 8:56 PM) Component Value Ref Range Units Ordered 2 Crossmatch Expires 12/26/2016 Record Check 2ND TYPE REQUIRED ABO/RH(D) A POS Antibody Screen NEG Specimen Performing Laboratory Blood [facility] [address] [place] [address] * BLOOD GASES, ARTERIAL (12/23/2016 8:00 PM) Component Value Ref Range pH-Arterial 7.46 (H) 7.35 - 7.45 pCO2-Arterial 33 (L) 35 - 45 MMHG pO2-Arterial 75 (L) 80 - 100 MMHG Base Excess-Arterial 0.2 MMOL/L O2 Sat-Arterial 95.9 95 - 99 % Nrzvuaaizkk-DLJ-Fgg 24.6 21 - 28 MMOL/L Specimen Performing Laboratory Blood, arterial - Blood [facility]IN [facility] [address] [place], [place] [id number] * POTASSIUM (12/23/2016 6:14 PM) Component Value Ref Range Potassium 4.4 3.5 - 5.1 MMOL/L Specimen Performing Laboratory Blood [facility] [address] [place] [address] 53[address] * SODIUM (12/23/2016 4:05 PM) Component Value Ref Range Sodium 142 137 - 147 MMOL/L Specimen Performing Laboratory MA[facility] [address] [place], [place] [id number] * PLATELET FUNCTION-PFA (12/23/2016 2:53 PM) Component [...] in this report. Specimen Performing Laboratory Blood [facility] [address] [place] [address] 66479 * LIPID PROFILE (12/23/2016 1:43 PM) Component [...] Specimen Performing Laboratory [facility] [address] [place] [address] * POTASSIUM (12/23/2016 1:43 PM) Component Value Ref Range Potassium 3.8 3.5 - 5.1 MMOL/L Specimen Performing Laboratory Blood [facility] [address] [place] [address] * MAGNESIUM (12/23/2016 1:43 PM) Component Value Ref Range Magnesium 2.4 1.6 - 2.6 mg/dL Specimen Performing Laboratory Blood [facility] [address] [place] [address] * SODIUM (12/23/2016 1:43 PM) Component Value Ref Range Sodium 142 137 - 147 MMOL/L Specimen Performing Laboratory Blood [facility] [address] [place] [address] * CT HEAD WO CONTRAST (12/23/2016 11:10 AM) Specimen Performing Laboratory [facility] RESULTS Impressions 1.No significant change in size of the large left frontal mixed density hemorrhage with interval extension into the left lateral ventricle. 2.Slight decrease in drob-df-lsjce midline shift. 3.Interval increase in size of [...] examination. There is been slight improvement in uxga-uw-kmihz midline shift, now measuring 10 mm compared [...] examination. There is been slight improvement in mngp-wg-lsqco midline shift, now measuring 10 mm compared to 13 mm previously. The basal cisterns are patent. There are no destructive osseous lesions. The perinasal sinuses and mastoid air cells are clear. IMPRESSION 1. No significant change in size of the large left frontal mixed density hemorrhage with interval extension into the left lateral ventricle. 2. Slight decrease in haom-qw-cgnsn midline shift. 3. Interval increase in size [...] MMOL/L Specimen Performing Laboratory Blood MAIN LAB [address] [place], [place] [id number] * POTASSIUM (12/23/2016 8:16 AM) Component Value Ref Range Potassium 3.9 3.5 - 5.1 MMOL/L Specimen Performing Laboratory Blood MAIN LAB [address] [place], [place] [id number] * BLOOD GASES, ARTERIAL (12/23/2016 7:37 AM) Component Value Ref Range pH-Arterial 7.48 (H) 7.35 - 7.45 pCO2-Arterial 33 (L) 35 - 45 MMHG pO2-Arterial 71 (L) 80 - 100 MMHG Base Excess-Arterial 1.3 MMOL/L O2 Sat-Arterial 95.2 95 - 99 % Tcagkqpoixk-PJJ-Cvr 25.5 21 - 28 MMOL/L Specimen Performing Laboratory Blood, arterial - Blood MAIN LAB [address] [place], [place] [id number] * IONIZED CALCIUM (12/23/2016 4:30 AM) Component Value Ref Range Ionized Calcium 1.11 1.0 - 1.3 MMOL/L Specimen Performing Laboratory Blood MAIN LAB [address] [place], [place] [id number] * PHOSPHORUS (12/23/2016 4:30 AM) Component Value Ref Range Phosphorus 3.6 2.0 - 4.0 MG/DL Specimen Performing Laboratory Blood MAIN LAB [address] [place], [place] [id number] * MAGNESIUM (12/23/2016 4:30 AM) Component Value Ref Range Magnesium 1.8 1.6 - 2.6 mg/dL Specimen Performing Laboratory Blood MAIN LAB [address] [place], [place] [id number] * CBC AND DIFF (12/23/2016 4:30 AM) [...] Specimen Performing Laboratory Blood MAIN LAB [address] [place] [address] * BASIC METABOLIC PANEL (12/23/2016 4:30 AM) [...] Specimen Performing Laboratory Blood MAIN LAB [address] [place] [address] * HEMOGLOBIN A1C (12/23/2016 4:30 AM) Component Value Ref Range Hemoglobin A1C 5.2 4.0 - 6.0 % Comment: The ADA recommends that most patients with type 1 and type 2 diabetes maintain an A1c level <7%. Specimen Performing Laboratory Blood MAIN LAB [address] [place] [address] * BASIC METABOLIC PANEL (12/22/2016 11:14 PM) [...] Performing Laboratory Blood [facility] [address] [place] [address] * CT HEAD WO CONTRAST (12/22/2016 7:56 [...] There is continued localized mass effect and zqft-oc-epzvs frontal midline shift and transalar herniation. The [...] There is continued localized mass effect and ampr-uz-ujlmu frontal midline shift and transalar herniation. The [...] an existing cavity. 3.Continued mass effect and vzbo-bk-grubs midline shift, difficult to quantify due to [...] changed. There is continued mass effect and ussw-so-bmrnr midline shift. The degree of midline shift [...] changed. There is continued mass effect and ipci-bn-qxgoa midline shift. The degree of midline shift [...] existing cavity. 3. Continued mass effect and cdyb-si-hcvwc midline shift, difficult to quantify due to [...] Specimen Performing Laboratory Blood MAIN LAB [address] [place] [address] * PTT (APTT) (12/22/2016 1:45 PM) Component Value Ref Range APTT 23.7 (L) 24.0 - 40.0 SEC Specimen Performing Laboratory Blood MAIN LAB [address] [place] [address] * PROTIME INR (PT) (12/22/2016 1:45 PM) Component Value Ref Range INR 1.0 0.8 - 1.2 Specimen Performing Laboratory Blood MAIN LAB [address] [place] [address] * CBC AND DIFF (12/22/2016 1:45 PM) [...] Performing Laboratory Blood [facility] MAIN [facility] [address] [place] [address] * ABDOMEN AP ONLY (12/22/2016 7:08 AM) [...] result. in this encounter Visit Diagnoses Diagnosis Intraparenchymal hemorrhage of brain (HCC) Intracerebral hemorrhage in this encounter Admitting Diagnoses Diagnosis large left front hematoma Hemorrhagic stroke (HCC) Intraparenchymal hemorrhage of brain (HCC) - Hemorrhagic stroke (HCC) Intracerebral hemorrhage Dysphagia - Hemorrhagic stroke (HCC) Dysphagia, unspecified Dysphagia - Hemorrhagic stroke (HCC) Dysphagia, unspecified in this encounter Administered Medications Medication Order MAR Action Action Date Dose Rate Site bacitracin (BACIIM) 50,000 Units in Given 12/24/2016 500 mL Other Ringer's 500 mL irrigation bottle 15:23 CDT INTRA-PROCEDURE MED, Starting Thu12/24/16 at 1523, Until Thu12/24/16 at 1640, Intra-op lidocaine 1%/EPINEPHrine 1:100,000 Given 12/24/2016 1 mL Other injection 14:40 CDT INTRA-PROCEDURE MED, Starting Thu12/24/16 at 1440, Until Thu12/24/16 at 1640, Intra-op thrombin 5,000 unit topical solution Given 12/24/2016 5,000 Units Other INTRA-PROCEDURE MED, Starting Thu12/24/16 15:22 CDT at 1522, Until Thu12/24/16 at 1640, Intra-op in this encounter
--- OUTSIDE RECORDS SUMMARY | 2017-03-03 06:14 | XMS REPORT | Encounter Summary ---
Author Author [facility] Organization [facility] Address Unknown Phone Unavailable Care Team Providers Care Pulmonary Nurse Practitioner Name Role Phone PCP Unavailable Encounter Details Date Type Department Care Team Description 12/23/2016 Prep for Case ADMITTING Nolberto Cody MD [address] [facility]. [address] [place] [address] [place] [address] Social History Tobacco Use Types Packs/Day Years Used Date Never Smoker Smokeless Tobacco: Never Used Alcohol Use Drinks/Week oz/Week Comments No Sex Assigned at Date Recorded Not on file as of this encounter Plan of Treatment Not on fileas of this encounter Visit Diagnoses Not on filein this encounter
--- OUTSIDE RECORDS SUMMARY | 2017-03-03 06:15 | XMS REPORT | Encounter Summary ---
Author Author [facility] Organization [facility] Address Unknown Phone Unavailable Care Team Providers Care Sizing Sprayer Name Role Phone PCP Unavailable Encounter Details Date Type Department Care Team Description 12/22/2016 Procedure [facility] [address] [place] [address] Social History Tobacco Use Types Packs/Day Years Used Date Never Assessed Sex Assigned at Date Recorded Not on file as of this encounter Plan of Treatment Not on fileas of this encounter Visit Diagnoses Not on filein this encounter
--- OUTSIDE RECORDS SUMMARY | 2017-03-03 06:15 | XMS REPORT | Encounter Summary ---
Author Author [facility] Organization [facility] Address Unknown Phone Unavailable Care Team Providers Care Forestry Contractor Name Role Phone PCP Unavailable Encounter Details Date Type Department Care Team Description 12/22/2016 Hospital [facility] [address] [place], [place] [id number] Social History Tobacco Use Types Packs/Day Years [...]
--- OUTSIDE RECORDS SUMMARY | 2017-03-03 06:15 | XMS REPORT | Encounter Summary ---
Author Author [facility] Organization [facility] Address Unknown Phone Unavailable Care Team Providers Care Assurance Analyst Name Role Phone PCP Unavailable Encounter Details Date Type Department Care Team Description 12/22/2016 Procedure [facility] [address] [place] [address] Social History Tobacco Use Types Packs/Day Years Used Date Never Assessed Sex Assigned at Date Recorded Not on file as of this encounter Plan of Treatment Not on fileas of this encounter Visit Diagnoses Not on filein this encounter
== END 2017-03-02 18:15 | disposition home or self-care (01) ==
LOC: EDUNIT# 16:27 → ER 16:29
DX: T85.528A Displacement of other gastrointestinal prosthetic devices, implants and grafts, initial encounter (principal); F32.9 Major depressive disorder, single episode, unspecified; E11.9 Type 2 diabetes mellitus without complications; M81.0 Age-related osteoporosis without current pathological fracture; J45.909 Unspecified asthma, uncomplicated; Z90.89 Acquired absence of other organs; Z90.710 Acquired absence of both cervix and uterus; Z86.73 Personal history of transient ischemic attack (TIA), and cerebral infarction without residual deficits
CPT/HCPCS: 99283

== ENCOUNTER 2017-03-03 18:37 | Emergency (ER) | payer MEDICARE, BC ==
[~2017-03-03] VITALS: Ht 157.5 cm; Wt 63.0 kg
[~2017-03-03 18:37] MED LIST changes: +HYDR-3812 PO
--- OUTSIDE RECORDS SUMMARY | 2017-03-03 18:42 | XMS REPORT | Continuity of Care Document ---
Author Author [facility] Organization [facility] Address Unknown Phone Unavailable Care Team Providers Care Rivet Thrower Name Role Phone [employer] Unavailable Unavailable Problems Medications Allergies, Adverse Reactions, Alerts Immunizations Results Vital Signs Encounters Location Location Details Encounter Type Encounter Number Reason For Visit Attending Provider ADM Date DC Date Status Source INPATIENT [id number] 12/25/2016 Active [facility] RE[facility] [id number] 01/08/2017 Active [facility] Krystyna ZARATE 03/04/2017 Active [facility] Procedures Plan of Care Social History Assessment and Plan Family History Value Date Source Advance Directives Order Name Results Value Date Source
--- OUTSIDE RECORDS SUMMARY | 2017-03-03 18:43 | XMS REPORT | Clinical Summary ---
Author Author [facility] Organization [facility] Address Unknown Phone Unavailable Care Team Providers Care Police Liaison Name Role Phone PCP Unavailable Source Comments Some departments are not documenting in the electronic medical record. If you do not see the information that you expected, contact Release of Information in the Health Information Management department at [phone] for further assistance in locating additional records.[facility] Allergies Active Allergy Reactions Severity Noted Date [...] Overview: Added automatically from request for surgery [id number] Dysphagia 12/22/2016 Overview: Added automatically from request for surgery [id number] Resolved Problems Problem Noted Date Resolved Date [...] Prep for Case Nolberto Cody MD 12/22/2016 [facility] Antwan Guadarrama MD Dysphagia - Encounter 01/06/2017 [...] INFLUENZA VACCINE 12/16/2016 Implants Implanted Type Area Customs Officer Device Expiration Model / Identifier Date Serial / Lot Screw Neuro 1.5x4mm Drill Free - KATHY BRITT [facility] [id number]- Sna IMPLANTS 91 / Implanted: Qty: 4 on 12/24/2016 by Antwan Beckman MD NA Cover Kirit Hole 17mm .3mm Contour Left: KATHY BRITT [facility] [id number] Titanium - Sna Skull IMPLANTS / Implanted: Qty: 1 on 12/24/2016 by Antwan Beckman MD NA Device Closure 70cm 6fr Angio-Seal Right: [facility] [employer] 07/15/2017 [id number] / Vip .035in Vascular - Sn/A Femoral N/A / Implanted: Qty: 1 on 12/29/2016 by Artery [id number] Scott Mancilla MD Procedures Procedure Name Priority [...] Specimen Performing Laboratory [facility] MAIN [facility] [address] [place] [address] * CBC (01/30/2017 7:25 AM) Only the [...] Performing Laboratory Blood [facility] MAIN [facility] [address] [place] [address] * BASIC METABOLIC PANEL (01/30/2017 7:25 AM) [...] Blood [facility] MAIN [facility] [address] [place] [address] * KEPPRA (LEVETIRACETAM) (01/23/2017 7:30 AM) Component Value Ref Range Keppra (Levetiracetam) 8.1 (L) Comment: Reference range: 12.0 to 46.0 Unit: mcg/mL ADDITIONAL INFORMATION This test was developed and its performance characteristics determined by [facility] in a manner consistent with CLIA requirements. This test has not been cleared or approved by the U.S. Food and Drug Administration. [facility] [place], [address], [place] [address] Specimen Performing Laboratory Blood REFERENCE LAB * [...] Specimen Performing Laboratory Blood MAIN LAB [address] [place] [address] * TELEMETRY STRIPS-SCAN (01/09/2017 4:23 PM) Narrative [...] Specimen Performing Laboratory Blood MAIN LAB [address] [place] [address] * PHOSPHORUS (01/06/2017 5:54 AM) Only the most recent of 15 results within the time period is included. Component Value Ref Range Phosphorus 3.6 2.0 - 4.0 MG/DL Specimen Performing Laboratory Blood MAIN LAB [address] [place] [address] * MAGNESIUM (01/06/2017 5:54 AM) Only the most recent of 17 results within the time period is included. Component Value Ref Range Magnesium 2.4 1.6 - 2.6 mg/dL Specimen Performing Laboratory Blood [facility] MAIN [facility] [address] [place] [address] * IONIZED CALCIUM (01/06/2017 5:54 AM) Only the most recent of 15 results within the time period is included. Component Value Ref Range Ionized Calcium 1.20 1.0 - 1.3 MMOL/L Specimen Performing Laboratory Blood [facility] MAIN [facility] [address] [place] [address] * SWALLOW MOTION SERIES (01/05/2017 2:45 PM) [...] Speech Pathology for further description. Approved by Ronine Christiansen M.D. on 01/05/2017 5:23 PM By [...] Specimen Performing Laboratory Urine MAIN LAB [address] [place] [address] * URINALYSIS MICROSCOPIC REFLEX TO CULTURE (01/05/2017 [...] Specimen Performing Laboratory Urine MAIN LAB [address] [place] [address] * URINALYSIS DIPSTICK REFLEX TO CULTURE (01/05/2017 1:11 PM) Only the most recent of 2 results within the time period is included. Component Value Ref Range Color,UA YELLOW Turbidity,UA 1+ (A) CLEAR-CLEAR Specific Arverne-Urine 1.021 1.003 - 1.035 pH,UA 6.0 5.0 [...] Specimen Performing Laboratory Urine MAIN LAB [address] [place] [address] * CULTURE-URINE W/SENSITIVITY (01/05/2017 1:11 PM) Component Value Ref Range Battery Name URINE CULTURE Specimen Description URINE Special Requests NONE Culture >100,000 organisms/ml ENTEROCOCCUS FAECIUM <100,000 organisms/ml ENTEROCOCCUS FAECALIS (A) Report Status FINAL 01/08/2017 Organism ID >100,000 organisms/ml ENTEROCOCCUS FAECIUM Organism ID >100,000 organisms/ml ENTEROCOCCUS FAECIUM Organism ID <100,000 organisms/ml ENTEROCOCCUS FAECALIS Specimen Performing Laboratory Urine MAIN LAB [address] [place] [address] Organism Antibiotic Method Susceptibility >100,000 organisms/ml Nitrofurantoin [...] Blood [facility] MAIN [facility] [address] [place] [address] * IR ARTERIOGRAM NEURO (12/29/2016 11:09 AM) [...] recurrent hemorrhage in the left frontal region. MINE CAR REPAIRER. Laurent BIT SHARPENER. 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 Local with Sedation PROCEDURE. Ultrasound [...] insure maintain an air free system. A 5-[place] diagnostic catheter was introduced through the sheath. Utilizing a combination of roadmap, guidewire and direct catheter access techniques, a 5 [place] diagnostic catheter was used to perform diagnostic [...] recurrent hemorrhage in the left frontal region. MINE CAR REPAIRER. Laurent BIT SHARPENER. 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 Local with Sedation PROCEDURE. Ultrasound [...] insure maintain an air free system. A 5-[place] diagnostic catheter was introduced through the sheath. Utilizing a combination of roadmap, guidewire and direct catheter access techniques, a 5 [place] diagnostic catheter was used to perform diagnostic [...] Performing Laboratory Blood [facility] MAIN [facility] [address] [place] [address] * CTA NECK WO/W CONTRAST+POST P (12/28/2016 [...] the pharynx. Visualized major branches of the [place] are patent without evidence of [...] the pharynx. Visualized major branches of the [place] are patent without evidence of [...] Performing Laboratory Blood [facility] MAIN [facility] [address] [place] [address] * CHEST SINGLE VIEW (12/26/2016 2:22 PM) [...] hemidiaphragm with the tip not in the effay-wc-jnxj. Heart size and pulmonary vasculature are within normal limits. No consolidation, pleural effusion, or pneumothorax. ACDF is noted. Partially visualized posterior spinal fixation hardware. Procedure Note Interface, Radiant Results - 12/26/2016 4:44 PM CDT CHEST SINGLE VIEW History: fever. Comparison: Chest radiograph from December 24, 2016. Findings: Enteric tube is in place coursing below the left hemidiaphragm with the tip not in the azaes-hq-hbrv. Heart size and pulmonary vasculature are within [...] 01/01/2017 Specimen Performing Laboratory Blood MAIN LAB [address] [place], [place] [id number] * TROPONIN-I (12/25/2016 10:52 AM) Component Value Ref Range Troponin-I 0.02 0.0 - 0.05 NG/ML Specimen Performing Laboratory MAIN LAB [address] [place] [address] * BLOOD GASES, ARTERIAL (12/24/2016 5:44 PM) Only the most recent of 3 results within the time period is included. Component Value Ref Range pH-Arterial 7.42 7.35 - 7.45 pCO2-Arterial 37 35 - 45 MMHG pO2-Arterial 165 (H) 80 - 100 MMHG Base Deficit-Arterial 0.0 MMOL/L O2 Sat-Arterial 99.6 (H) 95 - 99 % Foxbityyqrb-HKH-Wzt 24.4 21 - 28 MMOL/L Specimen Performing Laboratory Blood, arterial - Blood MAIN LAB [address] [place] [address] * OCCULT BLOOD NON COLON CANCER SCREEN (12/24/2016 2:28 PM) Component Value Ref Range Battery Name OCCULT BLOOD SCREEN Specimen Description FECES Special Requests NONE Occult Blood NEGATIVE Report Status FINAL 12/24/2016 Specimen Performing Laboratory Stool - Feces MAIN LAB [address] [place] [address] * PLAVIX RESISTANCE (PLATELETWORKS) (12/24/2016 1:35 PM) Component Value Ref Range Platelet Inhibition 40 (H) 0 - 15 % Comment: Normal ADP inhibition should be less than 15%. Therapeutic (Plavix and other P2Y 12) levels should be greater than 30%. Specimen Performing Laboratory Blood MAIN LAB [address] [place] [address] * BLOOD TYPE CONFIRMATION - ORDER ONLY IF REQUESTED BY LAB (12/23/2016 9:57 PM) Component Value Ref Range ABO/RH(D) A POS Specimen Performing Laboratory Blood [facility] [address] [place] [address] * TYPE & CROSSMATCH (12/23/2016 8:56 PM) Component Value Ref Range Units Ordered 2 Crossmatch Expires 12/26/2016 Record Check 2ND TYPE REQUIRED ABO/RH(D) A POS Antibody Screen NEG Specimen Performing Laboratory Blood [facility] [address] [place] [address] * PLATELET FUNCTION-PFA (12/23/2016 2:53 PM) Component [...] report. Specimen Performing Laboratory Blood MAIN LAB [address] [place], [place] [id number] * LIPID PROFILE (12/23/2016 1:43 PM) Component [...] Specimen Performing Laboratory [facility] [address] [place] [address] * TEG WITH KAOLIN (12/23/2016 10:25 AM) [...] Performing Laboratory Blood [facility] [address] [place] [address] * CTA HEAD WO/W CONTR+POST PRO (12/22/2016 [...] There is continued localized mass effect and ylgq-li-vrszt frontal midline shift and transalar herniation. The [...] There is continued localized mass effect and ibiq-kt-lggia frontal midline shift and transalar herniation. The [...] Performing Laboratory Blood [facility] [address] [place] [address] * PROTIME INR (PT) (12/22/2016 1:45 PM) Component Value Ref Range INR 1.0 0.8 - 1.2 Specimen Performing Laboratory Blood [facility] [address] [place] [address] * ABDOMEN AP ONLY (12/22/2016 7:08 AM) [...]
--- OUTSIDE RECORDS SUMMARY | 2017-03-03 18:46 | XMS REPORT | Encounter Summary ---
Author Author [facility] Organization [facility] Address Unknown Phone Unavailable Care Team Providers Care Room Service Waiter/Waitress Name Role Phone PCP Unavailable Encounter Details Date Type Department Care Team Description 01/14/2017 Procedure Pass [facility] [address] [place] [address] Social History Tobacco Use Types Packs/Day Years [...]
--- OUTSIDE RECORDS SUMMARY | 2017-03-03 18:46 | XMS REPORT | Encounter Summary ---
Author Author [facility] Organization [facility] Address Unknown Phone Unavailable Care Team Providers Care Design Checker Name Role Phone PCP Unavailable Encounter Details Date Type Department Care Team Description 01/08/2017 Procedure Pass [facility] [address] [place], [place] [id number] Social History Tobacco Use Types Packs/Day Years [...]
--- OUTSIDE RECORDS SUMMARY | 2017-03-03 18:46 | XMS REPORT | Encounter Summary ---
Author Author [facility] Organization [facility] Address Unknown Phone Unavailable Care Team Providers Care Production Sanitizer Name Role Phone PCP Unavailable Reason for Visit * Auth/Cert Status Reason Specialty Diagnoses / Referred By Referred To Procedures Contact Contact Diagnoses IPH Intraparenchymal hematoma of brain (HCC) Encounter Details Date Type Department Care Team Description 01/06/2017 Hospital [facility] AC[facility] REHAB UNIT Flash Garcia MD Nontraumatic cortical - Encounter [address] hemorrhage of left 01/30/2017 [place] [address] cerebral hemisphere (HCC) [phone] Social History Tobacco Use Types Packs/Day Years [...] stable for discharge. The patient discharged to [facility] facility for ongoing therapies. Follow up instructions including appointments were provided and prescriptions were provided. Patient understands signs to look out for that would require to call a doctor(s) and/or call 911. L [facility] with residual global aphasia, motor apraxia, right hemiparesis, dypshagia and cognitive impairments resulting in impaired mobility/ADLs, gait abnormality and cognition/communication deficit. Patient met overall goal of min A with manual wheelchair at household level by time of rehab discharge. However, due to high burden of care and limited support at home, she discharged to [facility] facility today with ongoing PT/OT/WELCOME WAGON HOST/HOSTESS/RN. Patient knows to follow up with Neurosurgery [...] Limb Shoulder Abduction Elbow Flexion Elbow Extension Counter Weigher Right 3-4 3-4 3-4 3-4 Left 5 [...] limited support at home, she discharged to [facility] facility today with ongoing PT/OT/WELCOME WAGON HOST/HOSTESS/RN. IPH, Left Frontal -Admitted to the [facility] on 12/22/2016with alarge left frontal parenchymal hemorrhage [...] on Zaditor. Normocytic Anemia-Stable, continue to monitor Depression-WEB UI DEVELOPER on Cymbalta 30mg which had been held [...] with bed mobility. Recommendations PT Discharge Recommendations: Shelter Facility Equipment Recommendations: Wheelchair cushion, Wheelchair - Manual, Hospital bed (bmfx-na-xliul wheelchair, silas lift) Comments: Patient is a [...] care and transfer with: Progressing (d/c to [facility] ) Condition at Discharge: Stable Discharge Diagnoses: [...] course Consults: Neurology and Ophthalmology Patient Disposition: Shelter Facility Patient instructions/medications: Activity as Tolerated It [...] or concerns regarding your hospital stay. Call [phone] Discharging attending physician: MADHAVI DUKE [[id number]] Tube Feeding Formula: Isosource 1.5 Schedule: Bolus [...] will be in charge of patient in skilled nursing No Return Appointment 2nd floor Medical Office Building, Neurosurgery Pod 2B Provider FLASH GARCIA V [[id number]] Location Rehab Clinic Appointment date: 03/04/2017 Appointment [...] Post - Op with Antwan Guadarrama MD [facility] - Neurosurgery ([facility]gery) 2nd Floor Pod B [address] [facility] Med Office [facility] [address] Mar 04, 2017 10:00 AM CDT Return Patient with Flash Garcia MD [facility] - Rehabilitation Medicine (--) 2nd Floor Pod B [address] [facility] Med Office [facility] [id number] Pending items needing follow up: Patient knows to follow up with Neurosurgery and PM&R. Family training was completed for mobility, ADLs, tube feeding, medication management. Signed: Marcos Pena MD 02/02/2017 cc: Primary Care Physician: Marylu Ochoa Verified Referring physicians: Marylu Ochoa MD Additional provider(s): in this encounter Discharge Instructions * Rehab Team Photography Manager/Case Management Support/Ongoing Services/DME - Lidya Winn - [...] Income Source Of Income: Other halfway income PCP Marylu Ochoa DME DME at [...] variable assist for mobility DME:commode, hospital bed, dslq-bw-kvdas wheelchair, silas lift * Rehab Team PT [...] and given to spouse to provide to [facility], the SNF that the patient will be transfering to. Valuables returned: Personal Items / Valuables: Clothing, Eyeglasses/Contacts Where Are Valuables Stored?: with patient at discharge. Home medications: none . Functional assessment at discharge complete:yes Report called to ENRIQUE Brown at [facility]. * Madhavi Duke MD [...] stable for discharge. The patient discharged to [facility] facility for ongoing therapies. Follow up instructions including appointments were provided and prescriptions were provided. Patient understands signs to look out for that would require to call a doctor(s) and/or call 911. L [facility] with residual global aphasia, motor apraxia, right hemiparesis, dypshagia and cognitive impairments resulting in impaired mobility/ADLs, gait abnormality and cognition/communication deficit. Patient met overall goal of min A with manual wheelchair at household level by time of rehab discharge. However, due to high burden of care and limited support at home, she discharged to [facility] facility today with ongoing PT/OT/WELCOME WAGON HOST/HOSTESS/RN. Patient knows to follow up with Neurosurgery [...] AM) IP, Left Frontal -Admitted to the [facility] on 12/22/2016with alarge left frontal parenchymal hemorrhage [...] Normocytic Anemia -Stable, continue to monitor Depression -WEB UI DEVELOPER on Cymbalta 30mg which had been held [...] 01/21 without retention Marcos Pena MD Pager [phone] Subjective No events overnight. Pt seen sitting [...] AM) IPH, Left Frontal -Admitted to the [facility] on 12/22/2016with alarge left frontal parenchymal hemorrhage [...] Normocytic Anemia -Stable, continue to monitor Depression -WEB UI DEVELOPER on Cymbalta 30mg which had been held [...] 01/21 without retention Marcos Pena MD Pager [phone] Subjective No events overnight. Pt resting comfortably [...] at next level of care PLAN: Ongoing WELCOME WAGON HOST/HOSTESS services recommended at the next level of [...] in the form of verbal cues and lacq-glgp-wujd assistance. Pt was not able to fold socks together despite maximal cues. Pt participated in card-sorting task. Pt not able to sort cards into colored piles despite WELCOME WAGON HOST/HOSTESS models. Pt required maximal cues to attend to task including holding cards and picking up new cards from card pile. Attempted to have pt complete a basic information form targeting attention and language however pt closed eyes and was not participatory in task. Speech Glass Technologist Goals Will improve communication for basic wants [...] Adequate for discharge Therapist: Betsy Howe MS, L/CCC-WELCOME WAGON HOST/HOSTESS [id number] Date: 01/29/2017 * Estelle Dee RN [...] 2/2 occasions, stated the SOY/ ASPEN with WELCOME WAGON HOST/HOSTESS providing occasional starter prompts. -Object Naming: Pt [...] word card. -Egocentric yes/no questions: correct Speech Glass Technologist Goals Will improve communication for basic wants [...] when clinically indicated: Progressing Therapist: Bharati Ibanez M.S./[facility]-WELCOME WAGON HOST/HOSTESS [phone] Date: 01/28/2017 * Madhavi Duke MD [...] AM) IPH, Left Frontal -Admitted to the [facility] on 12/22/2016with alarge left frontal parenchymal hemorrhage [...] Normocytic Anemia -Stable, continue to monitor Depression -WEB UI DEVELOPER on Cymbalta 30mg which had been held [...] 01/21 without retention Marcos Pena MD Pager [phone] Subjective No events overnight. Pt resting comfortably [...] task independently in 2 instances. Pt required qvec-qgmu-rnzz assistance for additional trials. Pt also required [...] to write additional information despite cues. Speech Glass Technologist Goals Will improve communication for basic wants [...] clinically indicated: Progressing Therapist: Betsy Howe MS, L/CCC-WELCOME WAGON HOST/HOSTESS [id number] Date: 01/27/2017 * Debbi Lyle - 01/27/2017 10:42 AM CDT CLINICAL NUTRITION Clinical Nutrition Follow-Up Summary Nutrition Assessment of Patient: Malnutrition Assessment: Malnutrition present Malnutrition Context: ICD-10 code E43: Chronic illness/Severe malnutrition Estimated Calorie Needs: 9137-1606 (28-30 kcal/kg dry wt 55.4kg [facility] Admit) Estimated Protein Needs: 65-75 (1.2-1.4g/kg dry wt 55.4kg) Oral Diet Order: NPO 3-day EN avg: Intake (calories) Daily Average : 1310 kilocalories (86% of minimum goal) Intake (protein) Daily Average : 72 grams (100% of goal) 66 yo female w/ PMH including dementia, chronic back pain, TIA; transferred to [facility] 12/22 with large left frontal parenchymal hemorrhage [...] exceeding 100% of protein needs at goal ([facility] following for Home EN). Recent 3-day EN [...] Status: Partially met;Ongoing Debbi Lyle RD, LD *9597 * Madhavi Duke MD - 01/27/2017 8:55 [...] AM) IPH, Left Frontal -Admitted to the [facility] on 12/22/2016with alarge left frontal parenchymal hemorrhage [...] Normocytic Anemia -Stable, continue to monitor Depression -WEB UI DEVELOPER on Cymbalta 30mg which had been held [...] 01/21 without retention Marcos Pena MD Pager [phone] Subjective No events overnight. Pt resting comfortably [...] cards. Pt identified 2/4 [employer] cards when WELCOME WAGON HOST/HOSTESS asked pt to show specific cards. Language: Pt was 80% accurate answering simple, egocentric yes/no questions. This was improvement over previous therapy sessions. Pt completed 1/7 one-step commands independently. A model was facilitating in 1 instance. Pt required bbtx-vfrj-ljgl assistance in 5 trials. Dysphagia: Oral care provided utilizing suction throughout w/ toothbrush and toothpaste. Limited participation in oral care this date. Trials of ice chips provided, thin liquids via teaspoon, and thin liquids via cup sip provided. Bolus withdraw, formation, and AP transfer were functional. Mastication time was minimally prolonged w/ ice chips. Swallow initiation was qnvsgf-tx-vcylrn delayed w/ adequate hyolaryngeal elevation as assessed [...] maintain alertness for adequate PO intake. Speech Glass Technologist Goals Will improve communication for basic wants [...] clinically indicated: Progressing Therapist: Betsy Howe MS, L/CCC-WELCOME WAGON HOST/HOSTESS [id number] Date: 01/26/2017 * Madhavi Duke MD [...] AM) IPH, Left Frontal -Admitted to the [facility] on 12/22/2016with alarge left frontal parenchymal hemorrhage [...] Normocytic Anemia -Stable, continue to monitor Depression -WEB UI DEVELOPER on Cymbalta 30mg which had been held [...] 01/21 without retention Marcos Pena MD Pager [phone] Subjective No events overnight. Pt receiving tube [...] Patient participated in supplemental activity with a cmm technician as directed by a rehabilitation therapist. [...] AM) IPH, Left Frontal -Admitted to the [facility] on 12/22/2016with alarge left frontal parenchymal hemorrhage [...] Normocytic Anemia -Stable, continue to monitor Depression -WEB UI DEVELOPER on Cymbalta 30mg which had been held [...] 01/21 without retention Didi Valerio MD Pager [phone] Subjective No events overnight. Pt in wheelchair [...] Patient participated in supplemental activity with a cmm technician as directed by a rehabilitation therapist. [...] placement and subsequent removal. Rehabilitation: Rehab Dx: [facility] Therapy: PT, OT, ST Daily Functional Update: [...] AM) IPH, Left Frontal -Admitted to the [facility] on 12/22/2016with alarge left frontal parenchymal hemorrhage [...] Normocytic Anemia -Stable, continue to monitor Depression -WEB UI DEVELOPER on Cymbalta 30mg which had been held [...] 01/21 without retention Didi Valerio MD Pager [phone] Subjective No events overnight. Pt in bed [...] of picking up playing cards. Pt required ufbo-qalc-daec assistance w/ task. Pt closed her eyes throughout the task and required maximal cues to maintain eye opening and participate w/ therapy tasks. Pt required moderate verbal cues to attend to watching therapy dog play fetch. Pt occasionally demonstrated decreased attention by looking away and/or closing eyes and required WELCOME WAGON HOST/HOSTESS to re-direct focus to therapy dog. Pt required moderate cues to attend to task of brushing hair. Pt initially required rcrj-lktu-rain assistance but was then able to complete [...] prolonged w/ ice chips. Swallow initiation was nusare-lb-ljsmtf delayed w/ adequate hyolaryngeal elevation as assessed via laryngeal palpation. 1 cough appreciated w/ thin liquids via cup. Vocal quality clear throughout trials. Provided pt and pt's w/ education regarding videoswallow or FEES testing when pt appropriate. Speech Glass Technologist Goals Will improve communication for basic wants [...] clinically indicated: Progressing Therapist: Betsy Howe MS, L/CCC-WELCOME WAGON HOST/HOSTESS [id number] Date: 01/23/2017 * Natalie Walden RN [...] NUTRITION Clinical Nutrition Note Received call from [facility] for request to review EN order to finalize process for Medicare coverage in discharging pt 01/28 from [facility]. Previously recommended addition of Prosource pkt [...] hospital bed. -I saw the patient in naoh-jh-ytfz evaluation to assess the patient's mobility needs [...] placement and subsequent removal. Rehabilitation: Rehab Dx: [facility] Therapy: PT, OT, ST Daily Functional Update: [...] AM) IP, Left Frontal -Admitted to the [facility] on 12/22/2016with rolly left frontal parenchymal hemorrhage [...] Normocytic Anemia -Stable, continue to monitor Depression -WEB UI DEVELOPER on Cymbalta 30mg which had been held [...] 01/21 without retention Marcos Pena MD Pager [phone] Subjective No events overnight. Pt in bed [...] not participate in task despite model from WELCOME WAGON HOST/HOSTESS and xbvl-tsnf-jieb assistance. Targeting sustained attention, attempted to color [...] to correct her year despite cues from WELCOME WAGON HOST/HOSTESS. Pt required maximal cues to attend to task of brushing hair. Pt initially required nkrn-gdif-hjsh assistance but was then able to complete task independently for approximately 20 seconds. Speech Glass Technologist Goals Will improve communication for basic wants [...] clinically indicated: Progressing Therapist: Betsy Howe MS, L/CCC-WELCOME WAGON HOST/HOSTESS [id number] Date: 01/22/2017 * Liza Lees, PhD - 01/22/2017 2:27 PM CDT [id number] Pt was seen b/s from for BDAE [...] Ph.D. Neurorehabilitation Psychology Postdoctoral Fellow Pager #: [phone] ATTESTATION: I discussed this session and pt's care with the fellow and agree with her note above. We will continue to follow prn until [facility] d/c. Ambrose Lees, PhD, ABPP * Marcos Pena MD - 01/22/2017 1:42 PM CDT [...] AM) IP, Left Frontal -Admitted to the [facility] on 12/22/2016with alarge left frontal parenchymal hemorrhage [...] Normocytic Anemia -Stable, continue to monitor Depression -WEB UI DEVELOPER on Cymbalta 30mg which had been held [...] 01/21 without retention Marcos Pena MD Pager [phone] Subjective No events overnight. Pt in bed. [...] initiation also observed as pt would watch WELCOME WAGON HOST/HOSTESS complete task but required cues to participate as well. Pt answered simple, egocentric yes/no questions w/ 57% accuracy and moderate cues. Frequent cues required for participation. Pt accurately reported her name and date of . Verbalized her address and phone number when provided initial 2-3 numbers. Speech Fdc Goals Will improve communication for basic wants [...] clinically indicated: Progressing Therapist: Betsy Howe MS, L/CCC-WELCOME WAGON HOST/HOSTESS [id number] Date: 01/21/2017 * Flash Garcia MD [...] AM) IPH, Left Frontal -Admitted to the [facility] on 12/22/2016with alarge left frontal parenchymal hemorrhage [...] Normocytic Anemia -Stable, continue to monitor Depression -WEB UI DEVELOPER on Cymbalta 30mg which had been held [...] 01/21 without retention Marcos Pena MD Pager [phone] Subjective No events overnight. Pt sitting in [...] eyes throughout task and not engaging w/ WELCOME WAGON HOST/HOSTESS despite cues. Dysphagia: Oral care provided utilizing suction throughout. Provided pt w/ toothette. Pt did not demonstrate correct use of toothbrush and required motp-wakq-gioi assistance to brush teeth. Trials of ice chips provided, thin liquids via teaspoon, and thin liquids via cup sip provided. Bolus withdraw, formation, and AP transfer were functional. Mastication time was minimally prolonged w/ ice chips. Swallow initiation was uupltj-qx-jeriyp delayed w/ adequate hyolaryngeal elevation as assessed via laryngeal palpation. No overt s/s aspiration were appreciated. Vocal quality clear throughout trials. Provided pt and pt's w/ education regarding videoswallow or FEES testing when pt appropriate. Speech Glass Technologist Goals Will improve communication for basic wants [...] clinically indicated: Progressing Therapist: Betsy Howe MS, L/CCC-WELCOME WAGON HOST/HOSTESS [id number] Date: 01/20/2017 * Natalie Walden RN [...] AM) IPH, Left Frontal -Admitted to the [facility] on 12/22/2016with alarge left frontal parenchymal hemorrhage [...] some expected evolution. Slight decrease in mild bpmh-vb-gcxqx midline shift with improvement in local mass [...] resolved -Continue current free water flushes Depression -WEB UI DEVELOPER on Cymbalta 30mg which had been held [...] DVT Prophylaxis: Heparin Marcos Pena MD Pager [phone] Subjective No events overnight. Pt resting comfortably [...] E43: Chronic illness/Severe malnutrition Estimated Calorie Needs: 1382-2727 (28-30 kcal/kg dry wt 55.4kg [facility] Admit) Estimated Protein Needs: 65-75 (1.2-1.4g/kg dry [...] dementia, chronic back pain, TIA; transferred to [facility] 12/22 with large left frontal parenchymal hemorrhage [...] 90% kcal and 96% protein needs. Per WELCOME WAGON HOST/HOSTESS, pt with minimal PO intake trials due [...] to task of looking at magazine w/ bbiizmti-bt-ywtqptg cues to sustain attention. Pt required maximal [...] of looking at new family photos. Speech Fdc Goals Will improve communication for basic wants [...] clinically indicated: Progressing Therapist: Betsy Howe MS, L/CCC-WELCOME WAGON HOST/HOSTESS [id number] Date: 01/19/2017 * Paul Smith DO [...] AM) IPH, Left Frontal -Admitted to the [facility] on 12/22/2016with alarge left frontal parenchymal hemorrhage [...] some expected evolution. Slight decrease in mild udix-eo-zhvnr midline shift with improvement in local mass [...] resolved -Continue current free water flushes Depression -WEB UI DEVELOPER on Cymbalta 30mg which had been held [...] DVT Prophylaxis: Heparin Paul Smith DO Pager [phone] Subjective No events overnight. Pt resting comfortably [...] musical entertainment from 2:30 3:30 provided by [employer] vendor Kael Rangel. This activity therapist was [...] AM) IPH, Left Frontal -Admitted to the [facility] on 12/22/2016with alarge left frontal parenchymal hemorrhage [...] some expected evolution. Slight decrease in mild qcrg-ng-odcrx midline shift with improvement in local mass [...] resolved -Continue current free water flushes Depression -WEB UI DEVELOPER on Cymbalta 30mg which had been held [...] DVT Prophylaxis: Heparin Paul Smith DO Pager [phone] Subjective No issues overnight. Pt resting comfortably [...] AM) IPH, Left Frontal -Admitted to the [facility] on 12/22/2016with alarge left frontal parenchymal hemorrhage [...] some expected evolution. Slight decrease in mild afmd-vu-egkms midline shift with improvement in local mass [...] resolved -Continue current free water flushes Depression -WEB UI DEVELOPER on Cymbalta 30mg which had been held [...] DVT Prophylaxis: Heparin Paul Smith DO Pager [phone] Subjective No events overnight. Pt resting comfortably [...] task of looking at everyday objects from [employer] w/ moderate cues to sustain attention. Pt [...] hand to mita and singing intermittently. Speech Glass Technologist Goals Will improve communication for basic wants [...] clinically indicated: Progressing Therapist: Betsy Howe MS, L/CCC-WELCOME WAGON HOST/HOSTESS [id number] Date: 01/16/2017 * Marcos Pena MD [...] Dressing Assist: Total Assist (01/12/2017 8:01 AM) [facility], Left Frontal -Admitted to the [facility] on 12/22/2016with alarge left frontal parenchymal hemorrhage [...] some expected evolution. Slight decrease in mild vcbd-ew-gpdao midline shift with improvement in local mass [...] resolved -Continue current free water flushes Depression -WEB UI DEVELOPER on Cymbalta 30mg which had been held [...] DVT Prophylaxis: Heparin Marcos Pena MD Pager [phone] Subjective No events overnight. Pt resting comfortably [...] & Labs Reviewed. Marcos Pena MD Pager [phone] Associated attestation - Flash Garcia MD - [...] sort cards into piles by color, despite WELCOME WAGON HOST/HOSTESS modeling, pt was not successful sorting by color. Pt did, however, pickle pumper cards, lay them on the table, and fan out cards in her hand as if playing cards. Provided pt w/ paper and pen in attempt to write. Pt however only wrote word "at " despite cues and encouragement to write her name. Dysphagia: Oral care provided utilizing suction throughout. Provided pt w/ toothette. Pt did not demonstrate correct use of toothbrush and required mkmv-ikus-spia assistance to brush teeth. Trials of small ice chips provided. Bolus withdraw, formation, and AP transfer were functional. Mastication time was minimally prolonged. Swallow initiation was mildly delayed w/ decreased hyolaryngeal elevation as assessed via laryngeal palpation. No overt s/s aspiration were appreciated. Speech Glass Technologist Goals Will improve communication for basic wants [...] clinically indicated: Progressing Therapist: Betsy Howe MS, L/CCC-WELCOME WAGON HOST/HOSTESS [id number] Date: 01/15/2017 * Flash Garcia MD [...] AM) IPH, Left Frontal -Admitted to the [facility] on 12/22/2016with alarge left frontal parenchymal hemorrhage [...] some expected evolution. Slight decrease in mild pdug-hv-mrjlp midline shift with improvement in local mass [...] resolved -Continue current free water flushes Depression -WEB UI DEVELOPER on Cymbalta 30mg which had been held [...] DVT Prophylaxis: Heparin Paul Smith DO Pager [phone] Subjective No events overnight. Pt resting comfortably [...] sort cards into piles by color, despite WELCOME WAGON HOST/HOSTESS modeling, pt was not successful sorting by color. Pt did, however, pickle pumper cards, lay them on the table, and fan out cards in her hand as if playing cards. Pt attended to this task for over 10 minutes w/ minimal cues. Pt also attended to task of picking up objects on room table to naming them. Jargon paraphasias noted as pt called a anni a "tickle mob." Speech Fdc Goals Will improve communication for basic wants [...] clinically indicated: Progressing Therapist: Betsy Howe MS, L/CCC-WELCOME WAGON HOST/HOSTESS [id number] Date: 01/14/2017 * Flash Garcia MD [...] AM) IPH, Left Frontal -Admitted to the [facility] on 12/22/2016with alarge left frontal parenchymal hemorrhage [...] some expected evolution. Slight decrease in mild heln-fk-drlrk midline shift with improvement in local mass [...] flushes SCOTT- resolved >Continue to monitor Depression -WEB UI DEVELOPER on Cymbalta 30mg which had been held [...] DVT Prophylaxis: Heparin Paul Smith DO Pager [phone] Subjective No acute events overnight. When seen [...] & Labs Reviewed. Paul Smith DO Pager [phone] * Debbi Lyle - 01/13/2017 2:22 PM [...] dementia, chronic back pain, TIA; transferred to [facility] 12/22 with large left frontal parenchymal hemorrhage [...] Days Status: Met;Ongoing Debbi Lyle RD, LD *[id number] * Flash Garcia MD - 01/13/2017 1:45 [...] AM) IPH, Left Frontal -Admitted to the [facility] on 12/22/2016with alarge left frontal parenchymal hemorrhage [...] some expected evolution. Slight decrease in mild zyhj-on-xihje midline shift with improvement in local mass [...] flushes SCOTT- resolved >Continue to monitor Depression -WEB UI DEVELOPER on Cymbalta 30mg which had been held [...] DVT Prophylaxis: Heparin Paul Smith DO Pager [phone] Subjective No issues overnight. Pt seen in [...] & Labs Reviewed. Paul Smith DO Pager [phone] Betsy Guerrero - 01/13/2017 1:09 PM CDT [...] to name the items w/ fair attention. FCI through task, pt closed eyes and did not continue participating w/ task. After maximal cues provided, pt began attending to task again. Note some incorrect use of objects during task (i.e., holding comb by brush end). In second therapy session, WELCOME WAGON HOST/HOSTESS attempted repositioning pt, sternal rubs, and encouragement but pt continued to keep eyes closed throughout therapy session only intermittently opening eyes. Dysphagia: Pt's alertness level not appropriate for PO trials this date. Speech Glass Technologist Goals Will improve communication for basic wants [...] clinically indicated: Progressing Therapist: Betsy Howe MS, L/CCC-WELCOME WAGON HOST/HOSTESS [id number] Date: 01/13/2017 * Kumar Fong RN [...] AM) IPH, Left Frontal -Admitted to the [facility] on 12/22/2016with alarge left frontal parenchymal hemorrhage [...] some expected evolution. Slight decrease in mild owcj-ob-ynquv midline shift with improvement in local mass [...] flushes SCOTT- resolved >Continue to monitor Depression -WEB UI DEVELOPER on Cymbalta 30mg which had been held [...] DVT Prophylaxis: Heparin Paul Smith DO Pager [phone] Subjective No issues overnight/over the weekend. Pt [...] & Labs Reviewed. Paul Smith DO Pager [phone] * Betsy Howe - 01/12/2017 10:20 AM [...] care or PO trials this date. Speech Glass Technologist Goals Will improve communication for basic wants [...] clinically indicated: Progressing Therapist: Betsy Howe MS, L/CCC-WELCOME WAGON HOST/HOSTESS [id number] Date: 01/12/2017 * John Chirinos MD [...] (01/09/2017 8:00 AM) IPH -Admitted to the [facility] on 12/22/2016with alarge left frontal parenchymal hemorrhage [...] some expected evolution. Slight decrease in mild iwxr-zw-xtszb midline shift with improvement in local mass effect. >Continue keppra 500mg BID Dysphagia -Currently NPO -s/p PEG placement 01/02 -Transitioned to bolus TF's UTI -Urine Cx growing Ecoli Faecium >Continue levaquin Hyperglycemia -Recent A1c 5.2 -MDCF Anemia -Stable, continue to monitor Hypernatremia - improving -Na 149 -> 146 -Continue water flush's to 300ml SCOTT- resolved >Continue to monitor Depression -WEB UI DEVELOPER on Cymbalta 30mg which had been held [...] (01/09/2017 8:00 AM) IPH -Admitted to the [facility] on 12/22/2016with alarge left frontal parenchymal hemorrhage [...] some expected evolution. Slight decrease in mild kvzn-oi-hgqfr midline shift with improvement in local mass effect. >Continue keppra 500mg BID Dysphagia -Currently NPO -s/p PEG placement 01/02 -Transitioned to bolus TF's UTI -Urine Cx growing Ecoli Faecium >Continue levaquin Hyperglycemia -Recent A1c 5.2 -MDCF Anemia -Stable, continue to monitor Hypernatremia - improving -Na 149 -> 146 -Continue water flush's to 300ml SCOTT- resolved >Continue to monitor Depression -WEB UI DEVELOPER on Cymbalta 30mg which had been held [...] DVT Prophylaxis: Heparin John Chirinos MD Pager [phone] Subjective Pt resting in bed. Somnolent and [...] & Labs Reviewed. John Chirinos MD Pager [phone] Associated attestation - Michele Warren MD - [...] language activities. Intermittent fluent responses observed to WELCOME WAGON HOST/HOSTESS questions including "Look at that jacqueline." "Yeah, [...] elevation. No overt s/s aspiration appreciated. Speech Fdc Goals Will improve communication for basic wants [...] clinically indicated: Progressing Therapist: Betsy Howe MS, L/CCC-WELCOME WAGON HOST/HOSTESS [id number] Date: 01/10/2017 * Debbi Lyle - [...] dementia, chronic back pain, TIA; transferred to [facility] 12/22 with large left frontal parenchymal hemorrhage on AC Plavix and ASA for hx TIA 3 mos ago. NPO on room air; to OR for drain placement 12/24. PEG placed . Meets criteria for severe malnutrition in chronic illness and dx previously documented on acute side from wt loss reported WEB UI DEVELOPER and account of low PO intake and [...] model in 1/4 instances and required a sbzc-fdbl-kugd cues in additional trials. Egocentric yes/no: Pt 55% accurate, delayed responses Picture naming: Maximal cues to participate; no responses Occasional responses to WELCOME WAGON HOST/HOSTESS questions/comments observed. Speech emerging to be more fluent though verbalizations are limited. Cognition: Pt attended to task of looking at familiar family pictures w/ fair attention. Speech Glass Technologist Goals Will improve communication for basic wants [...] clinically indicated: Progressing Therapist: Betsy Howe MS, L/CCC-WELCOME WAGON HOST/HOSTESS [id number] Date: 01/09/2017 * Jackie Maradiaga - 01/09/2017 3:37 PM CDT Bench Manager visited patient at bedside following several therapy sessions today. She requested that Bench Manager return at a later time. Bench Manager will re-visit patient at a later date. Rev. Jackie Maradiaga Extension [phone] * Flash Garcia MD - 01/09/2017 11:09 [...] (01/08/2017 8:45 AM) IPH -Admitted to the [facility] on 12/22/2016with alarge left frontal parenchymal hemorrhage [...] some expected evolution. Slight decrease in mild dkue-ph-oheiv midline shift with improvement in local mass effect. >Continue keppra 500mg BID Dysphagia -Currently NPO -s/p PEG placement 01/02 -Transitioned to bolus TF's UTI -Urine Cx growing Ecoli Faecium >Continue levaquin Hyperglycemia -Recent A1c 5.2 -MDCF Anemia -Stable, continue to monitor Hypernatremia - improving -Na 149 -> 146 -Continue water flush's to 300ml SCOTT- resolved >Continue to monitor Depression -WEB UI DEVELOPER on Cymbalta 30mg which had been held [...] DVT Prophylaxis: Heparin Paul Smith DO Pager [phone] head yesterday evening showed regression [...] & Labs Reviewed. Paul Smith DO Pager [phone] * Marylin Portillo RN - 01/08/2017 6:20 [...] accurate Pt w/ occasional appropriate responses to WELCOME WAGON HOST/HOSTESS conversation when looking at family pictures (i.e., "Tell me 'bout it." and "Isn't that something?") Cognition: Pt attended to task of looking at familiar family pictures w/ fair attention. Dysphagia: Pt provided w/ oral care utilizing suction throughout. Thick, dried secretions visualized which coat pt's hard palate. Attempted to remove utilizing toothette but anticipate secretions will require several cleanings to remove. Speech Fdc Goals Will improve communication for basic wants [...] clinically indicated: Progressing Therapist: Betsy Howe MS, L/CCC-WELCOME WAGON HOST/HOSTESS [id number] Date: 01/08/2017 * Flash Garcia MD [...] (01/08/2017 8:45 AM) IPH -Admitted to the [facility] on 12/22/2016with alarge left frontal parenchymal hemorrhage [...] 300ml SCOTT- resolved >Continue to monitor Depression -WEB UI DEVELOPER on Cymbalta 30mg which had been held [...] DVT Prophylaxis: Heparin Paul Smith DO Pager [phone] Subjective No acute events overnight. Pt resting [...] & Labs Reviewed. Paul Smith DO Pager [phone] * Kumar Fong, VANESSA - 01/08/2017 1:00 [...] and TIA who was admitted to the [facility] on 12/22/2016 as a transfer from [facility] with large left frontal parenchymal hemorrhage [...] to Verbalize Understanding, More Instruction Required Speech Fdc Goals Will improve communication for basic wants [...] clinically indicated: Progressing Therapist: Betsy Howe MS, L/[facility]-WELCOME WAGON HOST/HOSTESS [id number] Date: 01/07/2017 * Liza Lees, PhD [...] and TIA who was admitted to the [facility] on 12/22/2016 as atransfer from [facility] with large left frontal parenchymal hemorrhage [...] her 50's. 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. said that pt would want to drive [...] administered the Auditory Comprehension section of the Eclectic Diagnostic Aphasia Examination (BDAE) and pt correctly [...] Arias Psy.D. Neurorehabilitation Psychology Postdoctoral Fellow Pager: [phone] ATTESTATION: I discussed this session and pt's [...] (01/07/2017 8:00 AM) IPH -Admitted to the [facility] on 12/22/2016with alarge left frontal parenchymal hemorrhage [...] bolus SCOTT- resolved >Continue to monitor Depression -WEB UI DEVELOPER on Cymbalta 30mg which had been held [...] DVT Prophylaxis: Heparin Paul Smith DO Pager [phone] Subjective No issues since admission. Pt resting [...] & Labs Reviewed. Paul Smith DO Pager [phone] * Aiden Rock, RT - 01/06/2017 10:32 [...] acuity. Therapist: Aiden Rock, RT Date: 01/06/2017 [place] AC=Airway clearance AM=Aerosolized medication BA=[facility] [place] aerosol DB&C=Deep breathe & cough FEV1=Forced expiratory volume in first second) IC=Inspiratory capacity LE=Lung expansion MDI=Metered dose inhaler Neb=Nebulizer O2=Oxygen Oxim=Oximetry PEFR=Peak expiratory flow rate ASSEMBLER GOLF WOOD HEAD=Rapid Response Team * Kumar Fong RN - 01/06/2017 4:23 PM CDT Patient arrived to room # (2208) via cart accompanied by transport. Patient transferred [...] a 66 y.o. female. : 1950 Insurance: [facility] Date of Admission: 01/06/2017 Hospital Course: . Roxy Stephenss a 66 y.o.female with prior medical history of dementia, chronic back pain, osteoporosis, arthritis and TIA who was admitted to the [facility] on 12/22/2016as a transfer from [facility] with large left frontal parenchymal hemorrhage found [...] the intensity of therapy available at the [facility]. The patient can participate in and can fully benefit from the services offered in the inpatient rehabilitation facility setting including 24 hour rehabilitation nursing, daily oversight from the Social Welfare Administrator, and complex interdisciplinary rehab as noted below. [...] 4. Chronic Back Pain: Patient was taking [place] 10/325mg Q6H PRN prior to admission. Patient [...] 1. IPH: Patient was admitted to the [facility] on 12/22/2016 with a large left frontal [...] supervision upon discharge home. 5. Neurogenic Bladder: instrument technician apprentice to work with the patient and family to receive the proper education needed to have a successful bladder program. Patient will be provided and educated on the use of adaptive equipment, medication and fluid management to start managing a bladder program independently. 6. Neurogenic Bowel: instrument technician apprentice to work with the patient and family [...] RN and resides 45 minutes away. Patientt's upzypdc-bw-bgi and akagty-hv-vei reside in the same town and have [...] stay within an interdisciplinary rehabilitation program with rifle case repairer/psychiatric social worker, centrifugal station operator, neuropsychologist, rehab nursing and PM&R oversight. Rehabilitation Prognosis: Fair to Good; while the patient has some history of ~ mild dementia, suspect she would benefit from continued PT, OT, and WELCOME WAGON HOST/HOSTESS to progress toward discharge home with family [...] resources availability, equipment modifications, bariatric equipment. [place] of Care: Initiate interdisciplinary rehabilitation to improve [...] 66 y.o. female. : 1950 Primary Insurance: [facility] Secondary Insurance: MEDICARE Tertiary Insurance: Financial Class: [facility] Date of Hospital Admission: 12/22/2016 Date [...] a 66 y.o. female admitted to [facility] on (Not on file) [...] would benefit from continued PT, OT, and WELCOME WAGON HOST/HOSTESS to progress toward discharge home with family [...] resources availability, equipment modifications, bariatric equipment. [place] of Care: Initiate interdisciplinary rehabilitation to improve [...] problems and plan: IPH -Admitted to the [facility] on 12/22/2016 with a large left frontal [...] the past 24 hours -Recent A1c 5.2 -[facility] Anemia -Stable, continue to monitor Hypernatremia -Na 149 on admission -Continue to monitor and adjust free water flushes as needed SCOTT- resolved >Continue to monitor Depression -WEB UI DEVELOPER on Cymbalta 30mg which had been held [...] and TIA who was admitted to the [facility] on [facility] with large left frontal parenchymal hemorrhage [...] Laterality Date HX TONSILLECTOMY HYSTERECTOMY ORTHOPEDIC SURGERY WA CRANIECTOMY HMTMA SUPRATENTORIAL INTRACEREBRAL Left 12/24/2016 CRANIOTOMY EVACUATION HEMATOMA supine microscope, brainlab, tube system performed by Antwan Guadarrama MD at [facility] OR/Periop [place] INSERT GASTROSTOMY TUBE PERCUTANEOUS N/A 01/02/2017 INSERTION [...] device. Work/Personal Responsibilities/Hobbies: Patient worked for the [employer]. Home Environment: Home Situation: Lives with Family [...] RN and resides 45 minutes away. Patientt's jexydvs-fa-kevpos qlqbib-kg-vjh reside in the same town and have [...] socks over her toes, pt able to pot puller heel with minimal assist for steadying/balance. [...] Limb Shoulder Abduction Elbow Flexion Elbow Extension Counter Weigher Right 3-4 3-4 3-4 3-4 Left 5 [...] as described above and noted by the healthcare technician are non- epileptic in etiology. in [...] Laterality Date HX TONSILLECTOMY HYSTERECTOMY ORTHOPEDIC SURGERY WA CRANIECTOMY HMTMA SUPRATENTORIAL INTRACEREBRAL Left 12/24/2016 CRANIOTOMY EVACUATION HEMATOMA supine microscope, brainlab, tube system performed by Antwan Guadarrama MD at [facility] OR/[facility]iop [place] INSERT GASTROSTOMY TUBE PERCUTANEOUS N/A 01/02/2017 INSERTION [...] 20,000 Units/ sodium bicarbonate 650 mg(#) PRN (Tube Buffer from Rx) Family History: No known history [...] "glaucoma suspect" history. As they live in [place], [place], patient's prefers to establish care with an enterprise systems manager closer to home. We are happy to see Ms. Phillip if they decide otherwise. Patient seen with Dr. Khan, Attending Physician. Thank you for the consult. We will sign off. If you have any questions do not hesitate to contact us. Christine Melchor MD Ophthalmology PGY-2 Pager: [phone] [facility] [address] [place] [address] I have personally seen and examined the [...] patient. Please page neurology consult team at [phone] with any further questions or concerns. Patient [...] Laterality Date HX TONSILLECTOMY HYSTERECTOMY ORTHOPEDIC SURGERY WA CRANIECTOMY HMTMA SUPRATENTORIAL INTRACEREBRAL Left 12/24/2016 CRANIOTOMY EVACUATION HEMATOMA supine microscope, brainlab, tube system performed by Antwan Guadarrama MD at [facility]iop [place] INSERT GASTROSTOMY TUBE PERCUTANEOUS N/A 01/02/2017 INSERTION [...] radiology. Lorraine Reese MD Psychiatry PGY-2 Pager [phone] Associated attestation - Jenna Hernandez MD - [...] in 3-4 months. Clinic appointment No - [phone]. Thank you for the consult. Neurology will sign off. Please call us at [phone] if you have any questions. Patient seen [...] with swallowing. She was taken to the [facility] and found to have left frontal parenchymal [...] Laterality Date HX TONSILLECTOMY HYSTERECTOMY ORTHOPEDIC SURGERY WA CRANIECTOMY HMTMA SUPRATENTORIAL INTRACEREBRAL Left 12/24/2016 CRANIOTOMY EVACUATION HEMATOMA supine microscope, brainlab, tube system performed by Antwan Guadarrama MD at [facility]iop [place] INSERT GASTROSTOMY TUBE PERCUTANEOUS N/A 01/02/2017 INSERTION [...] 000 Units/ sodium bicarbonate 650 mg(#) PRN (Tube Buffer from Rx) Review of Systems: A 14 [...] MD, MPH Neurology Resident PGY 4 Pager [phone] Associated attestation - Mando Pascual MD - [...] service on . Thanks, Candice Arias PsyD [phone] * Debbi Lyle - 01/06/2017 4:47 PM [...] adjust as needed. Debbi Lyle, RD, LD *1230 in this encounter Miscellaneous Notes * Case Mgmt DC Plan - Lidya Winn - 01/30/2017 12:04 PM CDT Case Management Progress Note NAME:Roxy Phillip :1950 AGE: 66 y.o. ADMISSION DATE: 01/06/2017 DAYS ADMITTED: LOS: 24 days Todays Date: 01/30/2017 Plan Dc to [facility] today 01/30 near 11:30am with and brother transporting. Interventions ? Support Support: Pt/Family Updates re:POC or DC Plan ABBY met with pt, pt's Frank and Frank's brother Jojo to finalize dc plans. Frank verbalized he spoke with Charo of [facility] and feels more comfortable with dc to this facility. Frank had no further questions or concerns. ABBY assisted Antonieta PT and family with pt to car for transport. ? Info or Referral ? Discharge Planning Discharge Planning: Shelter Facility SW printed and placed transfer packet in wallaroo and updated nurse. ABBY faxed DC paperwork to [facility] [phone]. ? Medication Needs ? Financial ? Legal ? Other Disposition ? Expected Discharge Expected Discharge Date: 01/30/17 Expected Discharge Time: 1130 ? Discharge Disposition Disposition: Shelter Facility (SNF) Shelter/Long-Term Care Facility State: [place] SNF/LTCF [place]: Other (specify) Other Shelter/Long-Term Care Facility (Name, Phone, & Fax): [facility] Charo with admissions [phone] F:[phone] Lidya [facility] *[phone] * Case Mgmt DC Plan - Lidya Winn - 01/29/2017 5:00 PM CDT Case Management Progress Note NAME:Roxy Phillip :1950 AGE: 66 y.o. ADMISSION DATE: 01/06/2017 DAYS ADMITTED: LOS: 23 days Todays Date: 01/29/2017 Plan Anticipated dc to [facility] tomorrow 01/30 near 11am with and brother transporting. Interventions ? Support Support: Pt/Family Updates re:POC or DC Plan ABBY met with pt and to discuss acceptance to [facility]. Frank verbalized he would prefer to drive her with his brother's help. PT to work with and pt today on car transfer. SW updated Frank stretcher transport will be $650 if needed. SW spoke with PT and they verbalized car transfer went well. SW met with Frank and he verbalized worry about not being able to stay the night with pt at [facility] and questioned whether pt would be better at dementia SNF. SW explained they can provide him with another SNF list, however ABBY is not familiar with [facility] SNF's. ABBY suggested he call the [...] like for pt. Soledad stated she toured [facility] and feels comfortable with it stating it is updated and the staff seemed very attentive and helpful. Soledad plans to call her dad to help him feel better and think things through. ABBY contacted Charo [phone] with [facility] and she verbalized there is not room for Frank to have a place to sleep, however she will ask if it is okay if he sits with her all night. Charo also verbalized pt's roommate at [facility] has a lot of needs and staff is in and out of their room regularly. Charo verbalized she would call Frank marlon and try to calm him fears. ABBY contacted [facility] and they do not have a bed available. Roosevelt stated they and [facility] are the only two facilities with private rooms and they are currently full. Roosevelt educated there are no dementia units in the area and per the rep's assumption pt would likely not be appropriate for a dementia unit. ABBY contacted [facility] and they do have a private room available and would be able to stay, however he would pay an extra $22 a day for the private room. ABBY met with Frank and he appeared much calmer and relaxed stating he would like pt to go to [facility] and he trusts his dgt on the appropriateness of the facility. ABBY educated there is no place for him to sleep, however they may let him sit there, but he would need to ask. ABBY educated Charo with [facility] plans to call him later this afternoon to discuss this. ABBY also educated Charo reported pt's roommate at [facility] calls nursing staff often and staff frequents the room. Frank verbalized goal for dc tomorrow to [facility]. Frank explained his brother will be here prior to 11am when therapy assists with car transfer. ? Info or Referral ? Discharge Planning Discharge Planning: Shelter Facility ? Medication Needs Medication Needs: Co-Pay Check (ABBY will complete Provig[employer] copay check.) ? Financial ? Legal ? Other Disposition ? Expected Discharge Expected Discharge Date: 01/30/17 Expected Discharge Time: 1100 ? Discharge Disposition Disposition: Shelter Facility (SNF) Shelter/Long-Term Care Facility State: [place] SNF/LTCF [place]: Other (specify) Other Shelter/Long-Term Care Facility (Name, Phone, & Fax): [facility] Charo with admissions [phone] F:[phone] Lidya [facility] *[phone] * Case Mgmt DC Plan - Lidya [...] with pt, pt's Frank and dgt Soledad [phone] on speaker phone. Family explained they discussed [...] or Referral ? Discharge Planning Discharge Planning: Shelter Facility SW sent referrals to [facility], [facility] and [facility] through [employer]. 's first request is [facility]. SW contacted [facility] and they reported they no longer receive allscripts referral. ABBY hard faxed referral to [facility] F:. ABBY tasked EDITOR IN CHIEF NEWSPAPER to check stretcher van quotes to [facility] and [facility]. ABBY canceled hospital bed and mechanical lift order with [facility]. ABBY canceled tube feed order through [facility]. ABBY canceled hh through [facility] . ? Medication Needs ? Financial ? Legal ? Other Disposition ? Expected Discharge Expected Discharge Date: 01/30/17 ? Discharge Disposition Disposition: Shelter Facility (SNF) Lidya Winn LMSW *[phone] * Case Mgmt DC Plan - Lidya [...] hospital bed has been ordered through [facility] and advised they should be in touch [...] ABBY received call from Shama pt's niece [phone]. Shama verbalized she is from [place] and plans to fly in, however she [...] SW received call from pt's dgt Soledad [phone]. ABBY inquired into whether she would be [...] ABBY faxed mechanical lift order to [facility] P: [phone] F:. ABBY spoke with rep at [facility] in regards to hospital bed and she [...] Date: 01/30/17 ? Discharge Disposition [facility] *[phone] * Rehab Team Conference - Madhavi Martinez - 01/27/2017 10:19 AM CDT Formatting of this note may be different from the original. Team Conference Note Date of Admission: 01/06/2017 Date of Team Conference: 01/27/2017 Roxy Phillip is a 66 y.o. female. : 1950 Team Conference Attendees:Madhavi Duke MD, Attending Physician ; Marcos Pena MD, Resident Physician; [facility], Social Work; Liza Lees PhD, ABPP, Neuropsychology; Dionna Holguin PhD; Post Doctoral Fellow, Neuropsychology; Madhavi Martinez, Assistant Boiler Operator; Gabrielle Rodriguez PharmD ; Wilfredo Chatterjee PharmD; Diane Stein RN, Clinical Piece Dye Worker; Stephanie Lobato WELCOME WAGON HOST/HOSTESS; Marylu Currie RN, Rehab Supervisor Color Making; Joan Alcala RN, Nurse Utilities Service Investigator; Debbi Lyle RD LD; Esther Cannon OTR;Yasir [...] Income Source Of Income: Other halfway income PCP Marylu Ochoa DME DME at home: None Home Health Receiving home health: No Plan SNF vs Home with spouse and hired assist;pt is variable assist for ADLs but at times total assist x2 person and variable assist for mobility, Home Health OT/PT/ST DME:commode, hospital bed, rhdn-ys-xmcjp wheelchair, silas lift Rehabilitation Plan Progress At [...] 01/27) Graduation Day , 01/29 Goals Speech Glass Technologist Goals Will improve communication for basic wants [...] / techniques with: Maximum verbal cues Functional [place] Measures Eating FIM: 1 - Total assistance, [...] recognize and remember Associated attestation - Madhavi Duke MD - 01/27/2017 3:37 PM CDT I [...] Antonieta MORA PT, Esther OT and Sophia WELCOME WAGON HOST/HOSTESS met with pt and pt's Frank to [...] with private duty caregiver list for the [facility] and team encouraged he contact providers immediately [...] ABBY faxed hospital bed order to [facility] P: [phone] F:[phone]. ? Medication Needs Medication Needs: Co-Pay Check (ABBY will complete Provigil copay check.) Provigil dc'd from pt's JUL. ABBY spoke with hemodialysis charge nurse and requested he schedule diabetic education for 01/27 if able. ? Financial ? Legal ? Other Disposition ? Expected Discharge Expected Discharge Date: 01/28/17 ? Discharge Disposition Lidya Winn, [facility] *[phone] * Med Student Consult - Suman Gallardo, [...] Laterality Date HX TONSILLECTOMY HYSTERECTOMY ORTHOPEDIC SURGERY [place] CRANIECTOMY HMTMA SUPRATENTORIAL INTRACEREBRAL Left 12/24/2016 CRANIOTOMY EVACUATION HEMATOMA supine microscope, brainlab, tube system performed by Antwan Guadarrama MD at [facility] OR/Periop [place] INSERT GASTROSTOMY TUBE PERCUTANEOUS N/A 01/02/2017 INSERTION [...] 20,000 Units/ sodium bicarbonate 650 mg(#) PRN (Tube Buffer from Rx) Vital Signs: Last Filed in [...] check.) Per request, ABBY sent referral to [facility] for tube feeds. ABBY sent referral to [facility] in [place] through [facility]. [facility] contacted ABBY and verbalized they are able to accept for ongoing RN/PT/OT. ? Financial ? Legal ? Other Disposition ? Expected Discharge Expected Discharge Date: 01/28/17 ? Discharge Disposition Lidya Winn LMSW *[phone] * Rehab Team Conference - Madhavi Martinez - 01/20/2017 10:30 AM CDT Formatting of this note may be different from the original. Team Conference Note Date of Admission: 01/06/2017 Date of Team Conference: 01/20/2017 Roxy Phillip is a 66 y.o. female. : 1950 Team Conference Attendees: Flash Garcia MD, Attending Physician; Marcos Pena MD, Resident Physician; Lidya Winn NANOTECHNOLOGY ENGINEERING TECHNICIAN, Social Work; Liza Lees PhD, ABPP, Neuropsychology; Dionna Holguin PhD; Post Doctoral Fellow, Neuropsychology; Madhavi Martinez, Assistant Boiler Operator; Gabrielle Rodriguez PharmD; Diane Stein RN, Clinical Piece Dye Worker; Stephanie Lobato WELCOME WAGON HOST/HOSTESS; Marylu Currie RN, Rehab Supervisor Color Making; Joan Alcala RN, Nurse Utilities Service Investigator; Debbi Lyle RD LD; Esther Cannon OTR;Yasir Hernandez OTS: Antonieta Suazo PT; Natalie [...] Income Source Of Income: Other halfway income PCP Marylu Ochoa DME DME at [...] able to ambulate x 300 feet with ROLL THREADER OPERATOR x 1 and stairs x 4 with [...] therapies (up/down schedule) Family training Goals Speech Glass Technologist Goals Will improve communication for basic wants [...] / techniques with: Maximum verbal cues Functional [place] Measures Eating FIM: 1 - Total assistance, [...] reports he would like referrals sent to [facility] ? Medication Needs Medication Needs: Co-Pay Check (SW will complete Provigil copay check.) ? Financial ? Legal ? Other Disposition ? Expected Discharge Expected Discharge Date: 01/28/17 ? Discharge Disposition Lidya Winn [facility] *[phone] * Case Mgmt DC Plan - Lidya [...] is open to a SNF list for [facility] and [facility]. SW educated they would drop this [...] and believes he would be helpful at ca if she were to go home. He [...] Date: 01/28/17 ? Discharge Disposition Lidya Winn, [facility] *[phone] * Rehab Team Conference - [...] Physician; Elle Mayfield, Medical Student; Lidya Winn [facility], Social Work; Liza Lees PhD, ABPP, Neuropsychology; Madhavi Martinez, Assistant Boiler Operator; Gabrielle Rodriguez PharmD; Diane Stein RN, Clinical Piece Dye Worker; Soledad Kumar, Grass Farm Laborer; Stephanie Lobato WELCOME WAGON HOST/HOSTESS; Marylu Currie RN, Rehab Supervisor Color Making; Joan Alcala RN, Nurse Utilities Service Investigator; Debbi Lyle RD LD; Antonieta Suazo PT; [...] Income Source Of Income: Other halfway income PCP Marylu CORRAL DME at home: None Home Health Receiving home health: No Plan Inpatient setting vs Home with Assist (pending patient's cognition & progress); Ongoing PT/OT/[facility] Hospital bed, silas (at current state), tub [...] in chair for all therapies. Goals Speech Fdc Goals Will improve communication for basic wants [...] / techniques with: Maximum verbal cues Functional [place] Measures Eating FIM: 1 - Total assistance, [...] living Normocytic anemia Hypernatremia Hospital Course: Roxy Stepehnss a 66 y.o.female with prior medical history of dementia, chronic back pain, osteoporosis, arthritis and TIA who was admitted to the [facility] on 12/22/2016as a transfer from [facility] with large left frontal parenchymal hemorrhage [...] the intensity of therapy available at the [facility]. The patient can participate in and can fully benefit from the services offered in the IRF setting including 24 hour rehabilitation nursing, daily oversight from the Social Welfare Administrator, and complex interdisciplinary rehab as noted below. [...] 4. Chronic Back Pain: Patient was taking [place] 10/325mg Q6H PRN prior to admission. Patient [...] 1. IPH: Patient was admitted to the [facility] on 12/22/2016 with a large left frontal [...] supervision upon discharge home. 5. Neurogenic Bladder: instrument technician apprentice to work with the patient and family to receive the proper education needed to have a successful bladder program. Patient will be provided and educated on the use of adaptive equipment, medication and fluid management to start managing a bladder program independently. 6. Neurogenic Bowel: instrument technician apprentice to work with the patient and family [...] the assistance of health care provider. Functional [place] Measures (FIMS) Current Level of Function Evaluation [...] stay within an interdisciplinary rehabilitation program with rifle case repairer/psychiatric social worker, centrifugal station operator, neuropsychologist, rehab nursing and PM&R oversight. Rehabilitation Prognosis: Fair to Good; while the patient has some history of ~ mild dementia, suspect she would benefit from continued PT, OT, and WELCOME WAGON HOST/HOSTESS to progress toward discharge home with family [...] resources availability, equipment modifications, bariatric equipment. High [place] of Care: Initiate interdisciplinary rehabilitation to improve [...] Emergency Contact: Silvestre Phillip Address: [address] Mobile Relation: Spouse Secondary Emergency Contact: Soledad Phillip [facility] Relation: Daughter DPOA None Transportation Does the patient need discharge transport arranged?: No Transportation Name, Phone and Availability #1: Soledad [phone] Does the patient use Medicaid Transportation?: No [...] Other halfway income ? Financial Assistance Needed? None Current/Previous [...] Name of rehab location/group: Unknown OT: No WELCOME WAGON HOST/HOSTESS: No Pt went to [facility] therapy for therapy about 23 years ago. ? SNF/NH SNF: No NH: No ? IPR IPR: No ? LTACH LTACH: No ? Acute Hospital Stay Acute Hospital Stay: Yes Was patient's stay within the last 30 days?: Yes When did patient receive care?: 12/22/16 until transfer to [facility] Name of hospital: [facility] Psychosocial Needs ? Mental Health Mental Health [...] Suspected Abuse?: No Lidya Winn LMSW *[phone] * Rehab Pre-Admission Screening - Kevin Russ MD - 01/06/2017 2:50 PM CDT Formatting of this note may be different from the original. Physical Medicine & Rehabilitation Pre-Admission Screening Roxy Phillip is a 66 y.o. female. : 1950 MRN# : [id number] Primary Insurance: Medicare Secondary Insurance: BS Financial Class: Medicare Date of Hospital Admission: 12/22/2016 Date of Expected Rehab Admission: 01/06/2017 Precautions: Fall, aspiration Weight bearing Precautions: None Medical Course Hospital Course: Roxy Ospina a 66 y.o.female with prior medical history of dementia, chronic back pain, osteoporosis, arthritis and TIA who was admitted to the [facility] on 12/22/2016as a transfer from [facility] with large left frontal parenchymal hemorrhage [...] 4. Chronic Back Pain: Patient was taking [place] 10/325mg Q6H PRN prior to admission. Patient [...] 1. IPH: Patient was admitted to the [facility] on 12/22/2016 with a large left frontal [...] supervision upon discharge home. 5. Neurogenic Bladder: instrument technician apprentice to work with the patient and family to receive the proper education needed to have a successful bladder program. Patient will be provided and educated on the use of adaptive equipment, medication and fluid management to start managing a bladder program independently. 6. Neurogenic Bowel: instrument technician apprentice to work with the patient and family [...] device. Work/Personal Responsibilities/Hobbies: Patient worked for the [employer] office. Home Environment: Home Situation: Lives with [...] RN and resides 45 minutes away. Patientt's [id number] and dmsdey-ja-zhk reside in the same town and have [...] socks over her toes, pt able to pot puller heel with minimal assist for steadying/balance. [...] stay within an interdisciplinary rehabilitation program with rifle case repairer/psychiatric social worker, centrifugal station operator, neuropsychologist, rehab nursing and PM&R oversight. Rehabilitation Prognosis: Fair to Good; while the patient has some history of ~ mild dementia, suspect she would benefit from continued PT, OT, and WELCOME WAGON HOST/HOSTESS to progress toward discharge home with family [...] resources availability, equipment modifications, bariatric equipment. [place] of Care: Initiate interdisciplinary rehabilitation to improve [...] and TIA who presented via transfer from [facility] with large left frontal parenchymal hemorrhage found [...] deficits and goals with PT, OT, and WELCOME WAGON HOST/HOSTESS and complexity including hypernatremia currently being treated [...] Specimen Performing Laboratory [facility] [address] [place] [address] * BASIC METABOLIC PANEL (01/30/2017 7:25 AM) [...] Pharmacist for questions. Specimen Performing Laboratory Blood [facility] [address] [place], [place] [id number] * CBC (01/30/2017 7:25 AM) Component Value [...] - 11 FL Specimen Performing Laboratory Blood [facility] [address] [place] [address] 88546 * POC GLUCOSE (01/30/2017 2:55 AM) Component Value Ref Range Glucose, POC 87 70 - 100 MG/DL Specimen Performing Laboratory [facility] [address] [place] [address] 30029 * POC GLUCOSE (01/29/2017 9:52 PM) Component Value Ref Range Glucose, POC 111 (H) 70 - 100 MG/DL Specimen Performing Laboratory [facility] [address] [place] [address] 83167 * POC GLUCOSE (01/29/2017 5:22 PM) Component Value Ref Range Glucose, POC 88 70 - 100 MG/DL Specimen Performing Laboratory [facility] [address] [place] [address] 63673 * POC GLUCOSE (01/29/2017 12:35 PM) Component Value Ref Range Glucose, POC 131 (H) 70 - 100 MG/DL Specimen Performing Laboratory [facility] [address] [place] [address] 03161 * POC GLUCOSE (01/29/2017 9:27 AM) Component Value Ref Range Glucose, POC 106 (H) 70 - 100 MG/DL Specimen Performing Laboratory [facility] [address] [place] [address] 32727 * POC GLUCOSE (01/29/2017 2:27 AM) Component Value Ref Range Glucose, POC 107 (H) 70 - 100 MG/DL Specimen Performing Laboratory [facility] [address] [place] [address] 91963 * POC GLUCOSE (01/28/2017 10:02 PM) Component Value Ref Range Glucose, POC 137 (H) 70 - 100 MG/DL Specimen Performing Laboratory [facility] [address] [place], [place] [id number] * POC GLUCOSE (01/28/2017 5:47 PM) Component Value Ref Range Glucose, POC 88 70 - 100 MG/DL Specimen Performing Laboratory [facility] [address] [place], [place] [id number] * POC GLUCOSE (01/28/2017 11:51 AM) Component Value Ref Range Glucose, POC 155 (H) 70 - 100 MG/DL Specimen Performing Laboratory [facility] [address] [place], [place] [id number] * BASIC METABOLIC PANEL (01/28/2017 7:17 AM) [...] Pharmacist for questions. Specimen Performing Laboratory Blood [facility] [address] [place] [address]807 * CBC (01/28/2017 7:17 AM) Component Value [...] - 11 FL Specimen Performing Laboratory Blood [facility] [address] [place] [address] 27536 * POC GLUCOSE (01/28/2017 3:18 AM) Component Value Ref Range Glucose, POC 95 70 - 100 MG/DL Specimen Performing Laboratory [facility] [address] [place] [address] 36606 * POC GLUCOSE (01/27/2017 9:34 PM) Component Value Ref Range Glucose, POC 134 (H) 70 - 100 MG/DL Specimen Performing Laboratory [facility] [address] [place] [address] 25941 * POC GLUCOSE (01/27/2017 12:09 PM) Component Value Ref Range Glucose, POC 130 (H) 70 - 100 MG/DL Specimen Performing Laboratory [facility] [address] [place] [address] 85719 * POC GLUCOSE (01/27/2017 7:53 AM) Component Value Ref Range Glucose, POC 103 (H) 70 - 100 MG/DL Specimen Performing Laboratory [facility] [address] [place] [address] 94770 * POC GLUCOSE (01/26/2017 5:35 PM) Component Value Ref Range Glucose, POC 99 70 - 100 MG/DL Specimen Performing Laboratory [facility] [address] [place] [address] 35037 * POC GLUCOSE (01/26/2017 5:12 PM) Component Value Ref Range Glucose, POC 93 70 - 100 MG/DL Specimen Performing Laboratory [facility] [address] [place] [address] 81841 * POC GLUCOSE (01/26/2017 12:31 PM) Component Value Ref Range Glucose, POC 114 (H) 70 - 100 MG/DL Specimen Performing Laboratory [facility] [address] [place] [address] 87442 * POC GLUCOSE (01/26/2017 12:02 PM) Component Value Ref Range Glucose, POC 133 (H) 70 - 100 MG/DL Specimen Performing Laboratory [facility] [address] [place] [address] 42089 * POC GLUCOSE (01/26/2017 8:02 AM) Component Value Ref Range Glucose, POC 109 (H) 70 - 100 MG/DL Specimen Performing Laboratory [facility] [address] [place] [address] 49016 * BASIC METABOLIC PANEL (01/26/2017 8:00 AM) [...] questions. Specimen Performing Laboratory Blood [facility] [address] [place] [address] 24647 * CBC (01/26/2017 8:00 AM) Component Value [...] - 11 FL Specimen Performing Laboratory Blood [facility] [address] [place] [address] 52418 * POC GLUCOSE (01/26/2017 2:57 AM) Component Value Ref Range Glucose, POC 100 70 - 100 MG/DL Specimen Performing Laboratory [facility] [address] [place] [address] 56827 * POC GLUCOSE (01/25/2017 10:26 PM) Component Value Ref Range Glucose, POC 113 (H) 70 - 100 MG/DL Specimen Performing Laboratory [facility] [address] [place] [address] 73572 * POC GLUCOSE (01/25/2017 5:24 PM) Component Value Ref Range Glucose, POC 78 70 - 100 MG/DL Specimen Performing Laboratory [facility] [address] [place] [address] 09457 * POC GLUCOSE (01/25/2017 12:17 PM) Component Value Ref Range Glucose, POC 132 (H) 70 - 100 MG/DL Specimen Performing Laboratory [facility] [address] [place] [address] 21956 * POC GLUCOSE (01/25/2017 6:54 AM) Component Value Ref Range Glucose, POC 94 70 - 100 MG/DL Specimen Performing Laboratory [facility] [address] [place] [address] 06230 * POC GLUCOSE (01/25/2017 2:41 AM) Component Value Ref Range Glucose, POC 81 70 - 100 MG/DL Specimen Performing Laboratory [facility] [address] [place] [address] 13076 * POC GLUCOSE (01/24/2017 9:38 PM) Component Value Ref Range Glucose, POC 172 (H) 70 - 100 MG/DL Specimen Performing Laboratory [facility] [address] [place] [address] 20103 * POC GLUCOSE (01/24/2017 5:48 PM) Component Value Ref Range Glucose, POC 90 70 - 100 MG/DL Specimen Performing Laboratory [facility] [address] [place] [address] 45515 * POC GLUCOSE (01/24/2017 12:24 PM) Component Value Ref Range Glucose, POC 125 (H) 70 - 100 MG/DL Specimen Performing Laboratory [facility] [address] [place] [address] 68605 * POC GLUCOSE (01/24/2017 6:45 AM) Component Value Ref Range Glucose, POC 106 (H) 70 - 100 MG/DL Specimen Performing Laboratory [facility] [address] [place] [address] 81744 * POC GLUCOSE (01/24/2017 3:01 AM) Component Value Ref Range Glucose, POC 87 70 - 100 MG/DL Specimen Performing Laboratory [facility] [address] [place] [address] 52565 * POC GLUCOSE (01/23/2017 9:24 PM) Component Value Ref Range Glucose, POC 189 (H) 70 - 100 MG/DL Specimen Performing Laboratory [facility] [address] [place] [address] 31338 * POC GLUCOSE (01/23/2017 6:16 PM) Component Value Ref Range Glucose, POC 86 70 - 100 MG/DL Specimen Performing Laboratory [facility] [address] [place] [address] 48775 * POC GLUCOSE (01/23/2017 12:41 PM) Component Value Ref Range Glucose, POC 101 (H) 70 - 100 MG/DL Specimen Performing Laboratory [facility] [address] [place] [address] 88019 * POC GLUCOSE (01/23/2017 8:59 AM) Component Value Ref Range Glucose, POC 118 (H) 70 - 100 MG/DL Specimen Performing Laboratory [facility] [address] [place] [address] 76167 * BASIC METABOLIC PANEL (01/23/2017 7:30 AM) [...] Pharmacist for questions. Specimen Performing Laboratory Blood [facility] [address] [place] [address], [place] [address] * CBC (01/23/2017 7:30 AM) Component Value [...] - 11 FL Specimen Performing Laboratory Blood [facility] [address] [place] [address] 74146 * KEPPRA (LEVETIRACETAM) (01/23/2017 7:30 AM) Component Value Ref Range Keppra (Levetiracetam) 8.1 (L) Comment: Reference range: 12.0 to 46.0 Unit: mcg/mL ADDITIONAL INFORMATION This test was developed and its performance characteristics determined by [facility] in a manner consistent with CLIA requirements. This test has not been cleared or approved by the U.S. Food and Drug Administration. [facility], [address] [place] [address] Specimen Performing Laboratory Blood [facility] * POC GLUCOSE (01/23/2017 7:04 AM) Component Value Ref Range Glucose, POC 109 (H) 70 - 100 MG/DL Specimen Performing Laboratory [facility] [address] [place] [address] 47848 * POC GLUCOSE (01/22/2017 9:13 PM) Component Value Ref Range Glucose, POC 165 (H) 70 - 100 MG/DL Specimen Performing Laboratory [facility] [address] [place] [address] 81287 * POC GLUCOSE (01/22/2017 6:01 PM) Component Value Ref Range Glucose, POC 91 70 - 100 MG/DL Specimen Performing Laboratory [facility] [address] [place] [address] 41663 * POC GLUCOSE (01/22/2017 12:47 PM) Component Value Ref Range Glucose, POC 87 70 - 100 MG/DL Specimen Performing Laboratory [facility] [address] [place] [address] 47186 * POC GLUCOSE (01/22/2017 8:36 AM) Component Value Ref Range Glucose, POC 99 70 - 100 MG/DL Specimen Performing Laboratory [facility] [address] [place] [address] 54177 * POC GLUCOSE (01/22/2017 3:01 AM) Component Value Ref Range Glucose, POC 90 70 - 100 MG/DL Specimen Performing Laboratory [facility] [address] [place] [address] 72267 * POC GLUCOSE (01/21/2017 8:56 PM) Component Value Ref Range Glucose, POC 153 (H) 70 - 100 MG/DL Specimen Performing Laboratory [facility] [address] [place] [address] 39388 * POC GLUCOSE (01/21/2017 5:00 PM) Component Value Ref Range Glucose, POC 120 (H) 70 - 100 MG/DL Specimen Performing Laboratory [facility] [address] [place] [address] 73294 * POC GLUCOSE (01/21/2017 12:59 PM) Component Value Ref Range Glucose, POC 116 (H) 70 - 100 MG/DL Specimen Performing Laboratory [facility] [address] [place] [address] 56240 * POC GLUCOSE (01/21/2017 8:50 AM) Component Value Ref Range Glucose, POC 94 70 - 100 MG/DL Specimen Performing Laboratory [facility] [address] [place], [place] [phone] * BASIC METABOLIC PANEL (01/21/2017 7:00 AM) [...] Pharmacist for questions. Specimen Performing Laboratory Blood [facility] [address] [place] [address] 20438 * CBC (01/21/2017 7:00 AM) Component Value [...] - 11 FL Specimen Performing Laboratory Blood [facility] [address] [place] [address] 72821 * POC GLUCOSE (01/21/2017 6:51 AM) Component Value Ref Range Glucose, POC 87 70 - 100 MG/DL Specimen Performing Laboratory [facility] [address] [place] [address] 08822 * POC GLUCOSE (01/21/2017 3:17 AM) Component Value Ref Range Glucose, POC 90 70 - 100 MG/DL Specimen Performing Laboratory [facility] [address] [place] [address] 70567 * POC GLUCOSE (01/20/2017 5:30 PM) Component Value Ref Range Glucose, POC 73 70 - 100 MG/DL Specimen Performing Laboratory [facility] [address] [place] [address] 36725 * POC GLUCOSE (01/20/2017 12:23 PM) Component Value Ref Range Glucose, POC 125 (H) 70 - 100 MG/DL Specimen Performing Laboratory [facility] [address] [place] [address] 77293 * POC GLUCOSE (01/20/2017 8:06 AM) Component Value Ref Range Glucose, POC 96 70 - 100 MG/DL Specimen Performing Laboratory [facility] [address] [place] [address] 99485 * POC GLUCOSE (01/20/2017 3:13 AM) Component Value Ref Range Glucose, POC 85 70 - 100 MG/DL Specimen Performing Laboratory [facility] [address] [place] [address] 84346 * POC GLUCOSE (01/19/2017 8:39 PM) Component Value Ref Range Glucose, POC 121 (H) 70 - 100 MG/DL Specimen Performing Laboratory [facility] [address] [place] [address] 76856 * POC GLUCOSE (01/19/2017 5:02 PM) Component Value Ref Range Glucose, POC 101 (H) 70 - 100 MG/DL Specimen Performing Laboratory [facility] [address] [place] [address] 03308 * POC GLUCOSE (01/19/2017 12:03 PM) Component Value Ref Range Glucose, POC 198 (H) 70 - 100 MG/DL Specimen Performing Laboratory [facility] [address] [place] [address] 42269 * POC GLUCOSE (01/19/2017 9:08 AM) Component Value Ref Range Glucose, POC 90 70 - 100 MG/DL Specimen Performing Laboratory [facility] [address] [place] [address] 48194 * BASIC METABOLIC PANEL (01/19/2017 7:59 AM) [...] Pharmacist for questions. Specimen Performing Laboratory Blood [facility] [address] [place] [address] 03151 * CBC (01/19/2017 7:59 AM) Component Value [...] - 11 FL Specimen Performing Laboratory Blood [facility] [address] [place] [address] 92001 * POC GLUCOSE (01/19/2017 6:38 AM) Component Value Ref Range Glucose, POC 106 (H) 70 - 100 MG/DL Specimen Performing Laboratory [facility] [address] [place] [address] 17196 * POC GLUCOSE (01/19/2017 3:25 AM) Component Value Ref Range Glucose, POC 81 70 - 100 MG/DL Specimen Performing Laboratory [address] [address] * POC GLUCOSE (01/18/2017 9:08 PM) Component Value Ref Range Glucose, POC 186 (H) 70 - 100 MG/DL Specimen Performing Laboratory [address] [address] * POC GLUCOSE (01/18/2017 5:51 PM) Component Value Ref Range Glucose, POC 90 70 - 100 MG/DL Specimen Performing Laboratory [address] [address] * POC GLUCOSE (01/18/2017 12:25 PM) Component Value Ref Range Glucose, POC 144 (H) 70 - 100 MG/DL Specimen Performing Laboratory [address] [address] * POC GLUCOSE (01/18/2017 12:00 PM) Component Value Ref Range Glucose, POC 106 (H) 70 - 100 MG/DL Specimen Performing Laboratory [facility] [address] [place] [address] 72167 * POC GLUCOSE (01/18/2017 6:42 AM) Component Value Ref Range Glucose, POC 111 (H) 70 - 100 MG/DL Specimen Performing Laboratory [address] [address] * POC GLUCOSE (01/18/2017 3:23 AM) Component Value Ref Range Glucose, POC 82 70 - 100 MG/DL Specimen Performing Laboratory [facility] [address] [place] [address] 48721 * POC GLUCOSE (01/17/2017 9:33 PM) Component Value Ref Range Glucose, POC 198 (H) 70 - 100 MG/DL Specimen Performing Laboratory [facility] [address] [place] [address] 86055 * POC GLUCOSE (01/17/2017 4:57 PM) Component Value Ref Range Glucose, POC 110 (H) 70 - 100 MG/DL Specimen Performing Laboratory [facility] [address] [place] [address] 15726 * POC GLUCOSE (01/17/2017 12:38 PM) Component Value Ref Range Glucose, POC 110 (H) 70 - 100 MG/DL Specimen Performing Laboratory [facility] [address] [place] [address] 78383 * POC GLUCOSE (01/17/2017 12:09 PM) Component Value Ref Range Glucose, POC 176 (H) 70 - 100 MG/DL Specimen Performing Laboratory [address] [address] * POC GLUCOSE (01/17/2017 6:33 AM) Component Value Ref Range Glucose, POC 99 70 - 100 MG/DL Specimen Performing Laboratory [facility] [address] [place] [address] 08648 * POC GLUCOSE (01/17/2017 3:17 AM) Component Value Ref Range Glucose, POC 90 70 - 100 MG/DL Specimen Performing Laboratory [facility] [address] [place] [address] 79724 * POC GLUCOSE (01/16/2017 9:24 PM) Component Value Ref Range Glucose, POC 103 (H) 70 - 100 MG/DL Specimen Performing Laboratory [facility] [address] [place] [address] 23104 * POC GLUCOSE (01/16/2017 4:49 PM) Component Value Ref Range Glucose, POC 88 70 - 100 MG/DL Specimen Performing Laboratory [facility] [address] [place] [address] 48190 * POC GLUCOSE (01/16/2017 12:00 PM) Component Value Ref Range Glucose, POC 120 (H) 70 - 100 MG/DL Specimen Performing Laboratory [facility] [address] [place] [address] 56804 * BASIC METABOLIC PANEL (01/16/2017 8:12 AM) [...] questions. Specimen Performing Laboratory [facility] [address] [place], [place] [id number] * CBC (01/16/2017 8:12 AM) Component Value [...] FL Specimen Performing Laboratory [facility] [address] [place] [address] 48384 * POC GLUCOSE (01/16/2017 3:12 AM) Component Value Ref Range Glucose, POC 104 (H) 70 - 100 MG/DL Specimen Performing Laboratory [facility] [address] [place] [address] 19441 * POC GLUCOSE (01/15/2017 9:21 PM) Component Value Ref Range Glucose, POC 131 (H) 70 - 100 MG/DL Specimen Performing Laboratory [facility] [address] [place] [address] 25254 * POC GLUCOSE (01/15/2017 5:24 PM) Component Value Ref Range Glucose, POC 93 70 - 100 MG/DL Specimen Performing Laboratory [facility] [address] [place] [address] 72095 * POC GLUCOSE (01/15/2017 12:01 PM) Component Value Ref Range Glucose, POC 179 (H) 70 - 100 MG/DL Specimen Performing Laboratory [facility] [address] [place] [address] 42046 * POC GLUCOSE (01/15/2017 7:01 AM) Component Value Ref Range Glucose, POC 113 (H) 70 - 100 MG/DL Specimen Performing Laboratory [facility] [address] [place] [address] 92145 * POC GLUCOSE (01/15/2017 4:00 AM) Component Value Ref Range Glucose, POC 93 70 - 100 MG/DL Specimen Performing Laboratory [facility] [address] [place] [address] 08185 * POC GLUCOSE (01/14/2017 9:24 PM) Component Value Ref Range Glucose, POC 140 (H) 70 - 100 MG/DL Specimen Performing Laboratory [facility] [address] [place] [address] 80259 * POC GLUCOSE (01/14/2017 5:51 PM) Component Value Ref Range Glucose, POC 153 (H) 70 - 100 MG/DL Specimen Performing Laboratory [facility] [address] [place] [address] 18761 * POC GLUCOSE (01/14/2017 12:39 PM) Component Value Ref Range Glucose, POC 253 (H) 70 - 100 MG/DL Specimen Performing Laboratory [facility] [address] [place] [address] * CT HEAD WO CONTRAST (01/14/2017 11:36 [...] questions. Specimen Performing Laboratory [facility] [address] [place] [address] * CBC (01/14/2017 11:05 AM) Component Value [...] FL Specimen Performing Laboratory [facility] [address] [place], [place] [id number] * POC GLUCOSE (01/14/2017 10:43 AM) Component Value Ref Range Glucose, POC 239 (H) 70 - 100 MG/DL Specimen Performing Laboratory [facility] [address] [place], [place] [id number] * BASIC METABOLIC PANEL (01/14/2017 7:09 AM) [...] Pharmacist for questions. Specimen Performing Laboratory Blood [facility] [address] [place] [address] 44552 * CBC (01/14/2017 7:09 AM) Component Value [...] - 11 FL Specimen Performing Laboratory Blood [facility] [address] [place] [address] 30405 * POC GLUCOSE (01/14/2017 6:37 AM) Component Value Ref Range Glucose, POC 132 (H) 70 - 100 MG/DL Specimen Performing Laboratory [facility] [address] [place] [address] 22362 * POC GLUCOSE (01/14/2017 3:27 AM) Component Value Ref Range Glucose, POC 126 (H) 70 - 100 MG/DL Specimen Performing Laboratory [facility] [address] [place] [address] 49895 * POC GLUCOSE (01/13/2017 9:41 PM) Component Value Ref Range Glucose, POC 217 (H) 70 - 100 MG/DL Specimen Performing Laboratory [facility] [address] [place] [address] 74493 * POC GLUCOSE (01/13/2017 3:34 PM) Component Value Ref Range Glucose, POC 170 (H) 70 - 100 MG/DL Specimen Performing Laboratory [facility] [address] [place] [address] 77734 * POC GLUCOSE (01/13/2017 2:54 AM) Component Value Ref Range Glucose, POC 106 (H) 70 - 100 MG/DL Specimen Performing Laboratory [facility] [address] [place] [address] 42481 * POC GLUCOSE (01/12/2017 9:24 PM) Component Value Ref Range Glucose, POC 165 (H) 70 - 100 MG/DL Specimen Performing Laboratory [facility] [address] [place] [address] 95522 * POC GLUCOSE (01/12/2017 4:53 PM) Component Value Ref Range Glucose, POC 161 (H) 70 - 100 MG/DL Specimen Performing Laboratory [facility] [address] [place] [address] 14193 * POC GLUCOSE (01/12/2017 11:54 AM) Component Value Ref Range Glucose, POC 189 (H) 70 - 100 MG/DL Specimen Performing Laboratory [facility] [address] [place] [address] 17111 * BASIC METABOLIC PANEL (01/12/2017 7:03 AM) [...] questions. Specimen Performing Laboratory [facility] [address] [place] [address] 21573 * CBC (01/12/2017 7:03 AM) Component Value [...] - 11 FL Specimen Performing Laboratory Blood [facility] [address] [place] [address] 98617 * POC GLUCOSE (01/12/2017 6:42 AM) Component Value Ref Range Glucose, POC 142 (H) 70 - 100 MG/DL Specimen Performing Laboratory [facility] [address] [place] [address] 91138 * POC GLUCOSE (01/12/2017 4:11 AM) Component Value Ref Range Glucose, POC 153 (H) 70 - 100 MG/DL Specimen Performing Laboratory [facility] [address] [place] [address] 49731 * POC GLUCOSE (01/11/2017 8:56 PM) Component Value Ref Range Glucose, POC 171 (H) 70 - 100 MG/DL Specimen Performing Laboratory [facility] [address] [place] [address] 75892 * POC GLUCOSE (01/11/2017 6:06 PM) Component Value Ref Range Glucose, POC 162 (H) 70 - 100 MG/DL Specimen Performing Laboratory [facility] [address] [place] [address] 37333 * POC GLUCOSE (01/11/2017 11:59 AM) Component Value Ref Range Glucose, POC 176 (H) 70 - 100 MG/DL Specimen Performing Laboratory [facility] [address] [place] [address] 80499 * BASIC METABOLIC PANEL (01/11/2017 7:50 AM) [...] Pharmacist for questions. Specimen Performing Laboratory Blood [facility] [address] [place] [address] * CBC (01/11/2017 7:50 AM) Component Value [...] - 11 FL Specimen Performing Laboratory Blood [facility] [address] [place] [address] * POC GLUCOSE (01/11/2017 6:48 AM) Component Value Ref Range Glucose, POC 152 (H) 70 - 100 MG/DL Specimen Performing Laboratory [facility] [address] [place], [place] [id number] * POC GLUCOSE (01/10/2017 9:27 PM) Component Value Ref Range Glucose, POC 145 (H) 70 - 100 MG/DL Specimen Performing Laboratory [facility] [address] [place], [place] [id number] * POC GLUCOSE (01/10/2017 4:54 PM) Component Value Ref Range Glucose, POC 174 (H) 70 - 100 MG/DL Specimen Performing Laboratory [facility] [address] [place], [place] [id number] * POC GLUCOSE (01/10/2017 12:20 PM) Component Value Ref Range Glucose, POC 186 (H) 70 - 100 MG/DL Specimen Performing Laboratory [facility] [address] [place] [address] * BASIC METABOLIC PANEL (01/10/2017 8:04 AM) [...] Pharmacist for questions. Specimen Performing Laboratory Blood [facility] [address] [place] [address] 84255 * CBC (01/10/2017 8:04 AM) Component Value [...] - 11 FL Specimen Performing Laboratory Blood [facility] [address] [place] [address] 82129 * POC GLUCOSE (01/10/2017 7:02 AM) Component Value Ref Range Glucose, POC 170 (H) 70 - 100 MG/DL Specimen Performing Laboratory [facility] [address] [place] [address] 56419 * POC GLUCOSE (01/10/2017 3:23 AM) Component Value Ref Range Glucose, POC 130 (H) 70 - 100 MG/DL Specimen Performing Laboratory [facility] [address] [place] [address] 57924 * POC GLUCOSE (01/09/2017 9:08 PM) Component Value Ref Range Glucose, POC 151 (H) 70 - 100 MG/DL Specimen Performing Laboratory [facility] [address] [place] [address] 78005 * POC GLUCOSE (01/09/2017 5:08 PM) Component Value Ref Range Glucose, POC 134 (H) 70 - 100 MG/DL Specimen Performing Laboratory [facility] [address] [place] [address] 67175 * POC GLUCOSE (01/09/2017 12:07 PM) Component Value Ref Range Glucose, POC 223 (H) 70 - 100 MG/DL Specimen Performing Laboratory [facility] [address] [place] [address] 51938 * POC GLUCOSE (01/09/2017 7:26 AM) Component Value Ref Range Glucose, POC 123 (H) 70 - 100 MG/DL Specimen Performing Laboratory [facility] [address] [place] [address] 79861 * BASIC METABOLIC PANEL (01/09/2017 7:26 AM) [...] questions. Specimen Performing Laboratory [facility] [address] [place] [address] 08342 * CBC (01/09/2017 7:26 AM) Component Value [...] FL Specimen Performing Laboratory [facility] [address] [place] [address] 19292 * POC GLUCOSE (01/09/2017 4:16 AM) Component Value Ref Range Glucose, POC 126 (H) 70 - 100 MG/DL Specimen Performing Laboratory [facility] [address] [place] [address] * POC GLUCOSE (01/08/2017 9:01 PM) Component Value Ref Range Glucose, POC 226 (H) 70 - 100 MG/DL Specimen Performing Laboratory [facility] [address] [place] [address] * CT HEAD WO CONTRAST (01/08/2017 6:15 [...] hemorrhage is identified. There is persistent mild [id number] midline shift measuring approximately 4 to 5 [...] hemorrhage is identified. There is persistent mild [id number] midline shift measuring approximately 4 to 5 [...] 100 MG/DL Specimen Performing Laboratory [facility] [address] [place] [address] 71927 * POC GLUCOSE (01/08/2017 3:04 PM) Component Value Ref Range Glucose, POC 128 (H) 70 - 100 MG/DL Specimen Performing Laboratory [facility] [address] [place] [address] 90046 * POC GLUCOSE (01/08/2017 11:50 AM) Component Value Ref Range Glucose, POC 334 (H) 70 - 100 MG/DL Specimen Performing Laboratory [facility] [address] [place] [address] 13442 * POC GLUCOSE (01/08/2017 11:49 AM) Component Value Ref Range Glucose, POC 329 (H) 70 - 100 MG/DL Specimen Performing Laboratory [facility] [address] [place] [address] 09412 * POC GLUCOSE (01/08/2017 7:51 AM) Component Value Ref Range Glucose, POC 131 (H) 70 - 100 MG/DL Specimen Performing Laboratory [facility] [address] [place] [address] 20062 * BASIC METABOLIC PANEL (01/08/2017 7:45 AM) [...] Pharmacist for questions. Specimen Performing Laboratory Blood [facility] [address] [place] [address] 18676 * CBC (01/08/2017 7:45 AM) Component Value [...] - 11 FL Specimen Performing Laboratory Blood [facility] [address] [place] [address] 32306 * POC GLUCOSE (01/08/2017 3:40 AM) Component Value Ref Range Glucose, POC 145 (H) 70 - 100 MG/DL Specimen Performing Laboratory [facility] [address] [place], [place] [id number] * POC GLUCOSE (01/07/2017 8:53 PM) Component Value Ref Range Glucose, POC 269 (H) 70 - 100 MG/DL Specimen Performing Laboratory [facility] [address] [place] [address] 06538 * POC GLUCOSE (01/07/2017 6:02 PM) Component Value Ref Range Glucose, POC 133 (H) 70 - 100 MG/DL Specimen Performing Laboratory [facility] [address] [place] [address] 53727 * POC GLUCOSE (01/07/2017 12:08 PM) Component Value Ref Range Glucose, POC 209 (H) 70 - 100 MG/DL Specimen Performing Laboratory [facility] [address] [place] [address] 93721 * POC GLUCOSE (01/07/2017 8:02 AM) Component Value Ref Range Glucose, POC 207 (H) 70 - 100 MG/DL Specimen Performing Laboratory [facility] [address] [place], [place] [id number] * BASIC METABOLIC PANEL (01/07/2017 7:35 AM) [...] questions. Specimen Performing Laboratory [facility] [address] [place] [address] * CBC (01/07/2017 7:35 AM) Component Value [...] FL Specimen Performing Laboratory [facility] [address] [place] [address] 67384 * POC GLUCOSE (01/07/2017 3:55 AM) Component Value Ref Range Glucose, POC 204 (H) 70 - 100 MG/DL Specimen Performing Laboratory [facility] [address] [place] [address] 90144 * POC GLUCOSE (01/06/2017 8:58 PM) Component Value Ref Range Glucose, POC 135 (H) 70 - 100 MG/DL Specimen Performing Laboratory [facility] [address] [place] [address] 25538 * POC GLUCOSE (01/06/2017 5:12 PM) Component Value Ref Range Glucose, POC 149 (H) 70 - 100 MG/DL Specimen Performing Laboratory [facility] [address] [place] [address] 61666 in this encounter Visit Diagnoses Diagnosis Nontraumatic [...] at 1608, Until Thu01/30/17 at 1404, Constipation WA, Do not order suppository for neutropenic and/or [...]
--- OUTSIDE RECORDS SUMMARY | 2017-03-03 18:49 | XMS REPORT | Encounter Summary ---
Author Author [facility] Organization [facility] Address Unknown Phone Unavailable Care Team Providers Care Paste Plant Supervisor Name Role Phone PCP Unavailable Reason for Visit * Auth/Cert Status Reason Specialty Diagnoses / Referred By Referred To Procedures Contact Contact Diagnoses large left front hematoma Hemorrhagic stroke (HCC) Encounter Details Date Type Department Care Team Description 12/22/2016 [facility] NEUROSCIENCE & ENT PRO Antwan Guadarrama MD Dysphagia - Encounter [address] 01/06/2017 [place] [address] [address] [place] [address] [phone] Social History Tobacco Use Types Packs/Day Years [...] for: 66 y.o. female transfer from [facility] with large left frontal parenchymal [...] of 0800 -1700, please call Theresa at [phone]. Otherwise, please call the main hospital number ([phone]) and ask for the neurosurgery resident dealer relationship manager to be paged. BLADDER SCAN BEDSIDE Every 4 hours STRAIGHT CATH Every 4 hours for > 300 ml on bladder scan INSTRUCTIONS, ADDITIONAL CT head without contrast prior to DC from rehab. Please call [phone] when completed. PT EVAL & TREAT PT EVAL & TREAT Report These Signs and Symptoms Call for pain that is uncontrolled with pain medication, numbness or weakness, vision changes, trouble with speech or slurring of speech, or any questions/ concerns. Questions About Your Stay For questions or concerns regarding your hospital stay. Call [phone] Discharging attending physician: ANTWAN GUADARRAMA [[id number]] Tube Feeding Isosource 1.5 45 ml/hr with [...] Post - Op with Antwan Guadarrama MD [facility] Physicians - Neurosurgery (P NeuroSurgery) 2nd Floor Pod [address] [facility] [id number] Pending items needing follow up: None Signed: [...] dysphagia assessment and treatment. Therapist: SUZANNE Perez, CF-COAT ROOM ATTENDANT [phone] Date: 01/06/2017 * Jasmyne Avendaño OT [...] socks over her toes, pt able to hand assembler for puller over heel with minimal assist for steadying/balance. 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 Mckenzie Yamel, PROCESS IMPROVEMENT CONSULTANT [id number] Please call [phone] with any questions. * Kyle Christensen - 01/06/2017 8:54 AM CDT PHYSICAL THERAPY PROGRESS NOTE MOBILITY: Mobility Progressive Mobility Level: Walk laps Distance Walked (feet): 250 ft Level of Assistance: Assist X1 Assistive Device: Hand Held Time Tolerated: 11-30 minutes Activity Limited By: Fatigue SUBJECTIVE: Subjective Significant hospital events: 66 y.o. female PMH TIA, dementia, osteoporosis, arthritis, chronic back pain, admitted to [facility] with ICH on 12/22/16. Mental [...] osteoporosis, arthritis, chronic back pain, admitted to [facility] with ICH on 12/22/16. Large [...] Consist/Presentation* Presentations: Therapist Fed Thin Liquid: Cup Curran Thick Liquid: Cup, straw Education* Persons Educated: Patient Barriers To Learning: Impaired Communication, Decreased Alertness, Cognitive Deficits, Family not present Interventions: Staff Educated Teaching Methods: Verbal Topics: Aphasia, Dysphagia Patient Response: More Instruction Required Goals: Pt will participate in ongoing dysphagia assessment and treatment. 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 IVF 1/ 2NS 500ml bolus, and 150ml free water boluses every 4 hours COAT ROOM ATTENDANT VS this afternoon SW for DC planning -anticipate ready for rehab tomorrow 01/06 Prophylaxis: A)GI: PPI B) Lines: No C) Urinary Catheter: No D) Antibiotic Usage: No E) VTE: Pharmacological prophylaxis; SQ Heparin and Mechanical prophylaxis; Sequential compression device F) Restraints: Patient assessed for need for restraints. Mckenzie Montesinos, PROCESS IMPROVEMENT CONSULTANT [id number] Please call [phone] with any questions. * Kyle Christensen - 01/05/2017 11:35 AM CDT PHYSICAL THERAPY PROGRESS NOTE MOBILITY: Mobility Progressive Mobility Level: Walk in hallway Distance Walked (feet): 120 ft Level of Assistance: Assist X2 Assistive Device: Hand Held Time Tolerated: 0-10 minutes Activity Limited By: Fatigue;Weakness SUBJECTIVE: Subjective Significant hospital events: 66 y.o. female PMH TIA, dementia, osteoporosis, arthritis, chronic back pain, admitted to [facility] with ICH on 12/22/16. Mental [...] E43: Chronic illness/Severe malnutrition Estimated Calorie Needs: 9113-2579 (28-30 kcal/kg dry wt 55.4kg) Estimated Protein [...] dementia, chronic back pain, TIA; transferred to 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) Dementia TIA (transient ischemic attack) Chronic back pain Intraparenchymal hemorrhage of brain (HCC) Added automatically from request for surgery [id number] Keppra LOCK TENDER ASA/Plavix held Q1H neurochecks PT/OT inpatient setting Rehab consulted, follow up early next week, family interested in [facility] PEG placed, TF's restarted at 1800 COAT ROOM ATTENDANT VS Thursday SW for DC planning Prophylaxis: A)GI: PPI B) Lines: No C) Urinary Catheter: No D) Antibiotic Usage: No E) VTE: Pharmacological prophylaxis; SQ Heparin and Mechanical prophylaxis; Sequential compression device F) Restraints: Patient assessed for need for restraints. Abby Hernandez MD Please call [phone] with any questions. Associated attestation - Madhavi Rivera MD - 01/03/2017 12:42 PM CDT Attending Note Patient and imaging reviewed with resident/ BUTTON MACHINE OPERATOR. Patient seen and examined on . I [...] off at this time. Call with questions [id number] Discussed plan of care with Dr. Hankins [...] calcium gluconate IVPB 1 g Intravenous PRN (Development Executive from Rx) hydrALAZINE 10-20 mg Intravenous Q6H PRN HYDROcodone/acetaminophen 1-2 tablet Oral Q4H PRN magnesium sulfate 1 g Intravenous PRN ondansetron 4 mg Intravenous Q6H PRN pancrelipase 20,000 Units/ sodium bicarbonate 650 mg(#) 1 capsule Feeding Tube PRN (Development Executive from Rx) potassium chloride SR 40 mEq [...] PO4 3.5 4.5* Karri Rai DO Pager: [phone] Associated attestation - Jong Hankins MD - [...] fashion. Jong Hankins MD Trauma/Critical Care/General Surgery [phone] * Calvin Lundberg DO - 01/02/2017 6:11 PM CDT ACS PEG usage: ok to use PEG for meds now. Tube feeds ok starting at 1800 on . Tamika 2480 * Alesha Patton, VANESSA - 01/02/2017 4:45 PM CDT Pt. Transferred to OR with transport via cart. VS stable. Ticket to ride provided and report given to CONVEYOR CONSOLE OPERATOR. Gurvinder Mclaughlin - 01/02/2017 3:56 PM CDT SPEECH-LANGUAGE PATHOLOGY NO TREATMENT NOTE The patient was not seen due to: Pt NPO for procedure (PEG placement) later this date. Will f/u 01/05. Therapist: SUZANNE Perez, CF-COAT ROOM ATTENDANT [id number] Date: 01/02/2017 * Jasmyne Avendaño OT [...] osteoporosis, arthritis, chronic back pain, admitted to [facility] with ICH on 12/22/16. Mental [...] calcium gluconate IVPB 1 g Intravenous PRN (Development Executive from Rx) hydrALAZINE 10-20 mg Intravenous Q6H PRN HYDROcodone/acetaminophen 1-2 tablet Oral Q4H PRN magnesium sulfate 1 g Intravenous PRN ondansetron 4 mg Intravenous Q6H PRN pancrelipase 20,000 Units/ sodium bicarbonate 650 mg(#) 1 capsule Feeding Tube PRN (Development Executive from Rx) potassium chloride SR 40 mEq [...] 3.5 3.5 4.5* Karri Rai DO Pager: [phone] * Nicole Miller, RD - 01/01/2017 3:31 PM CDT CLINICAL NUTRITION Clinical Nutrition Follow-Up Summary Nutrition Assessment of Patient: Malnutrition Assessment: Malnutrition present Malnutrition Context: ICD-10 code E43: Chronic illness/Severe malnutrition Estimated Calorie Needs: 7131-5078 (28-30 kcal/kg dry wt 55.4kg) Estimated Protein Needs: 65-75 (1.2-1.4g/kg dry wt 55.4kg) Oral Diet Order: NPO 3 day Average Intake (calories) Daily Average : 838 kilocalories Intake (protein) Daily Average : 38 grams female w/ PMH including dementia, chronic back pain, TIA; transferred to [facility] 12/22 with large left frontal [...] osteoporosis, arthritis, chronic back pain, admitted to [facility] with Left frontal IPH on [...] w/ verbal presentation of the word from COAT ROOM ATTENDANT w/ max cues. VERBAL EXPRESSION Comments*: Pt [...] accuracy w/ max cues. Therapist: SUZANNE Perez, CF-COAT ROOM ATTENDANT [phone] Date: 01/01/2017 * Kyle Christensen - [...] osteoporosis, arthritis, chronic back pain, admitted to [facility] with ICH on 12/22/16 Mental [...] aspiration. Pt inconsistently w/ spontaneous responses to COAT ROOM ATTENDANT questions w/ 1 - to 3-word responses. [...] Corpak. Meds via Corpak. Anticipate need for long-term alternative source of nutrition. Excellent oral care. [...] therapy post acute hospitalization. Therapist: SUZANNE Perez, CF-COAT ROOM ATTENDANT [phone] Date: 01/01/2017 * Elen Styles RN [...] aspiration. Pt rarely w/ spontaneous responses to COAT ROOM ATTENDANT questions w/ 1- or 2-word responses ("yeah", "pretty good"). Unable to elicit voice, cough, or throat clear on command. No family present during session. RECOMMENDATIONS: Remain NPO at this time due to waxing and waning alertness and lethargy w/ continued use of Corpak. Meds via [employer]ak. Anticipate need for long-term alternative source of nutrition. Excellent oral care. [...] therapy post acute hospitalization. Therapist: SUZANNE Perez, CF-COAT ROOM ATTENDANT [phone] Date: 12/31/2016 * Elen Styles RN [...] osteoporosis, arthritis, chronic back pain, admitted to [facility] with ICH on 12/22/16. Mental [...] calcium gluconate IVPB 1 g Intravenous PRN (Development Executive from Rx) hydrALAZINE 10-20 mg Intravenous Q6H PRN HYDROcodone/acetaminophen 1-2 tablet Oral Q4H PRN magnesium sulfate 1 g Intravenous PRN ondansetron 4 mg Intravenous Q6H PRN pancrelipase 20,000 Units/ sodium bicarbonate 650 mg(#) 1 capsule Feeding Tube PRN (Development Executive from Rx) potassium chloride SR 40 mEq [...] -- 4.3* 3.5 Adam Nicholson MD Pager: [phone] * Carrie Pack, OT - 12/31/2016 10:29 [...] osteoporosis, arthritis, chronic back pain, admitted to [facility] with Left frontal IPH on . Patient to OR for hematoma evacuation and EVD placement on 12/24. Precautions: Falls Pain / Complaints: Patient demonstrates no signs of pain Objective Psychosocial Status: Willing and Cooperative to Participate Persons Present: Manager Risk ADL's Where Assessed: Standing at Sink Grooming [...] osteoporosis, arthritis, chronic back pain, admitted to [facility] with ICH on 12/22/16. Mental [...] Light (TABs alarm activated) Comments: Recommend staff air tactical officer perform stand pivot transfer with 2 person [...] osteoporosis, arthritis, chronic back pain, admitted to [facility] with Left frontal IPH on [...] aspiration. Pt rarely w/ spontaneous responses to COAT ROOM ATTENDANT questions w/ 1- or 2-word responses ("yeah", "pretty good"). Unable to elicit voice, cough, or throat clear on command. No family present during session. RECOMMENDATIONS: Remain NPO at this time due to waxing and waning alertness and lethargy w/ continued use of Corpak. Meds via Corpak. Anticipate need for terminal carman alternative source of nutrition. Excellent oral care. [...] therapy post acute hospitalization. Therapist: SUZANNE Perez, CF-COAT ROOM ATTENDANT [phone] Date: 12/30/2016 * Iwona Woo APRN [...] 12/22/2016 Added automatically from request for surgery [id number] Roxy Phillip is a 66 y.o. female [...] - Keppra 500 mg BID - Holding LOCK TENDER Plavix (placed on after TIA)- will discuss [...] Intake/Output Summary (Last 24 hours) at 12/30/16 0771 Last data filed at 12/30/16 0400 Gross per 24 hour Intake 595 ml Output 1196 ml Net -601 ml Stool Occurrence: 1 Physical Exam: Blood pressure 107/45, pulse 76, temperature 36.7 C (98 F), height 154.9 cm (61"), weight 55.2 kg (121 lb 11.1 oz), SpO2 93 %. [place] coma score: E: 4 - Opens eyes [...] radiologic and diagnostic procedures reviewed. Iwona Woo, PROCESS IMPROVEMENT CONSULTANT Date: 12/30/[phone] I spent 40 minutes managing the care [...] <60. No new orders. Passed on to material handler 2nd shift nurse. Will continue to monitor closely. * [...] osteoporosis, arthritis, chronic back pain, admitted to [facility] with ICH on 12/22/16. Mental [...] osteoporosis, arthritis, chronic back pain, admitted to [facility] with Left frontal IPH on [...] Corpak. Meds via Corpak. Anticipate need for long-term alternative source of nutrition. Excellent oral care. [...] therapy post acute hospitalization. Therapist: SUZANNE Perez, CF-COAT ROOM ATTENDANT [phone] Date: 12/29/2016 * Shantal Lopez, SERVANDO - 12/29/2016 2:25 PM CDT CLINICAL NUTRITION Clinical Nutrition Follow-Up Summary Nutrition Assessment of Patient: Malnutrition Assessment: Malnutrition present Malnutrition Context: ICD-10 code E43: Chronic illness/Severe malnutrition Estimated Calorie Needs: 2119-6045 (28-30 kcal/kg dry wt 55.4kg) Estimated Protein [...] dementia, chronic back pain, TIA; transferred to [facility] 12/22 with large left frontal [...] 12/22/2016 Added automatically from request for surgery [id number] ATTESTATION Date of Service: 12/29/2016 I have [...] PO NaCl. Trend sodiums another day. Cont LOCK TENDER ASA and plavix. CV - meeting SBP [...] 0.5% Q4H PRN, calcium gluconate IVPB PRN (Development Executive from Rx) AND Ionized Calcium PRN AND Notify Physician Ongoing, fentaNYL citrate PF Q1H PRN, hydrALAZINE Q6H PRN, HYDROcodone/acetaminophen Q4H PRN, magnesium sulfate PRN AND Magnesium PRN * *AND Notify Physician Ongoing, ondansetron Q6H PRN, pancrelipase 20,000 Units / sodium bicarbonate 650 mg(#) PRN (Development Executive from Rx), potassium chloride SR PRN OR [...] 0423) POC Glucose (Download): (!) 109 (12/29/16 9127) Radiology and Other Diagnostic Procedures Review: Pertinent radiology reviewed. Mary Huntley MD 12/29/2016 Pager: [phone] * Daisy Benitez RN - 12/29/2016 10:18 [...] see patient 1 time Therapist: SUZANNE Perez, CF-COAT ROOM ATTENDANT [phone] Date: 12/29/2016 * Ashia Patterson APRN [...] 12/22/2016 Added automatically from request for surgery [id number] Hospital and ICU course: 12/22: admitted to [...] - Keppra 500 mg BID - Holding LOCK TENDER Plavix (placed on after TIA) - Angio [...] 0.5% Q4H PRN, calcium gluconate IVPB PRN (Development Executive from Rx) AND Ionized Calcium PRN AND Notify Physician Ongoing, fentaNYL citrate PF Q1H PRN, hydrALAZINE Q6H PRN, HYDROcodone/acetaminophen Q4H PRN, magnesium sulfate PRN AND Magnesium PRN * *AND Notify Physician Ongoing, ondansetron Q6H PRN, pancrelipase 20,000 Units / sodium bicarbonate 650 mg(#) PRN (Development Executive from Rx), potassium chloride SR PRN OR [...] of care with consulted teams. Ashia Patterson, PROCESS IMPROVEMENT CONSULTANT Date: 12/29/[phone] * Jaswinder Gaspar MD - 12/29/2016 6:31 [...] (HCC) Added automatically from request for surgery [id number] Nontraumatic cortical hemorrhage of left cerebral hemisphere [...] 147, On 2% @20, PO salt Keppra LOCK TENDER ASA/Plavix held Q1H neurochecks PT/OT inpatient setting (will need rehab consult) ST, NPO SW for DC planning Prophylaxis: A)GI: PPI B) Lines: No C) Urinary Catheter: No D) Antibiotic Usage: No E) VTE: Pharmacological prophylaxis; Contraindication: Bleeding risk; No SQH large ICH with hx of ASA/Plavix and Mechanical prophylaxis; Sequential compression device F) Restraints: Patient assessed for need for restraints. Jaswinder Gaspar MD 0567 Please call [phone] with any questions. * Rommel Cisneros, VANESSA [...] admitted to the NSICU with: Left frontal [facility] Hospital and ICU course: 12/22: admitted to [...] 12/22/2016 Added automatically from request for surgery [id number] 24 hour I/O balance is as follows: Intake/Output Summary (Last 24 hours) at 12/28/16 0840 Last data filed at 12/28/16 0800 Gross per 24 hour Intake 2335 ml Output 1839 ml Net 496 ml __ Subjective: Roxy Phillip is a 66 y.o. female. Overnight Events: No new events noted, sign out obtained from material handler 2nd shift person ( nurse and ICU physician). Patient [...] Meds:acetaminophen Q4H PRN, calcium gluconate IVPB PRN (Development Executive from Rx) AND Ionized Calcium PRN AND Notify Physician Ongoing, fentaNYL citrate PF Q1H PRN, hydrALAZINE Q6H PRN, HYDROcodone/acetaminophen Q4H PRN, magnesium sulfate PRN AND Magnesium PRN AND Notify Physician Ongoing, ondansetron Q6H PRN, pancrelipase 20,000 Units/ sodium bicarbonate 650 mg(#) PRN (Development Executive from Rx), potassium chloride SR PRN OR [...] optimize venous drainage Maintain normothermia, avoid hypoxemia, Nebo appropriate osmotherapy ( i.e mannitol vs Hypertonic [...] (Last 24 hours): Glucose: (!) 175 (12/28/16 5925) POC Glucose (Download): (!) 159 (12/28/16 0402) [...] HAD BM on 12-27-16 Social work and upper caser for discharge planning and placement. Family Meeting and update: yes. Patient is unable to make his or her decisions, family updated during rounds. Goals of therapy: Addressed, Patient is a full code Nurses concerns addressed. 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) Dementia TIA (transient ischemic attack) Chronic back pain EVD catheter withdrawn 12/25/16 Pulled back again this AM (12/27/16), CT head shows new position of catheter and decreased size of IPH Na- 143, On 2% @50, PO salt Keppra LOCK TENDER ASA/Plavix held Q1H neurochecks PT/OT inpatient setting (will need rehab consult) ST, NPO SW for DC planning Prophylaxis: A)GI: PPI B) Lines: No C) Urinary Catheter: No D) Antibiotic Usage: No E) VTE: Pharmacological prophylaxis; Contraindication: Bleeding risk; No SQH large ICH with hx of ASA/Plavix and Mechanical prophylaxis; Sequential compression device F) Restraints: Patient assessed for need for restraints. Phylicia Duenas MD 0844 Please call [phone] with any questions. * Robbie Singh, PROCESS IMPROVEMENT CONSULTANT - 12/28/2016 6:52 AM CDT Formatting of [...] 12/22/2016 Added automatically from request for surgery [id number] Hospital and ICU course: 12/22: admitted to [...] - Keppra 500 mg BID - Holding LOCK TENDER Plavix (placed on after TIA) 12/27 Head [...] Meds:acetaminophen Q4H PRN, calcium gluconate IVPB PRN (Development Executive from Rx) AND Ionized Calcium PRN AND Notify Physician Ongoing, fentaNYL citrate PF Q1H PRN, hydrALAZINE Q6H PRN, HYDROcodone/acetaminophen Q4H PRN, magnesium sulfate PRN AND Magnesium PRN AND Notify Physician Ongoing, ondansetron Q6H PRN, pancrelipase 20,000 Units/ sodium bicarbonate 650 mg(#) PRN (Development Executive from Rx), potassium chloride SR PRN OR [...] (122 lb 9.2 oz), SpO2 97 %. [place] coma score: E: 4 - Opens eyes [...] (Last 24 hours): Glucose: (!) 175 (12/28/16 0338) POC Glucose (Download): (!) 159 (12/28/16 2731) Radiology and Other Diagnostic Procedures Review: all noted I spent 45 minutes managing the care of this patient. Mrs Phillip is critically ill s/p ICH. Cares included: detailed neurologic and systems exam, medication review, laboratory data review and interpretation, electrolyte management, review of available imaging, DVT/PE prophylaxis review, diet review , activity review, and coordination of care with consulted teams. Robbie Singh, PROCESS IMPROVEMENT CONSULTANT Date: 12/28/[phone] * Delaney Lechuga, VANESSA - 12/27/2016 6:30 [...] 12/22/2016 Added automatically from request for surgery [id number] Hospital and ICU course: 12/22: admitted to [...] - Keppra 500 mg BID - Holding LOCK TENDER Plavix (placed on after TIA) 12/27 Head [...] daily BM (last 12/25) Heme: stable -hold LOCK TENDER Plavix and ASA - Hgb 11.0, Plt [...] Meds:acetaminophen Q4H PRN, calcium gluconate IVPB PRN (Development Executive from Rx) AND Ionized Calcium PRN AND Notify Physician Ongoing, fentaNYL citrate PF Q1H PRN, hydrALAZINE Q6H PRN, HYDROcodone/acetaminophen Q4H PRN, magnesium sulfate PRN AND Magnesium PRN AND Notify Physician Ongoing, ondansetron Q6H PRN, pancrelipase 20,000 Units/ sodium bicarbonate 650 mg(#) PRN (Development Executive from Rx), potassium chloride SR PRN OR [...] all noted Myke Hernandez MD Date: 12/27/[phone] Associated attestation - Marcos Herrmann MD - [...] 12/22/2016 Added automatically from request for surgery [id number] 24 hour I/O balance is as follows: Intake/Output Summary (Last 24 hours) at 12/27/16 1239 Last data filed at 12/27/16 1200 Gross per 24 hour Intake 2167 ml Output 2624 ml Net -457 ml __ Subjective: Roxy Phillip is a 66 y.o. female. Overnight Events: No new events noted, sign out obtained from material handler 2nd shift person ( nurse and [facility] physician). Patient examined: yes Objective: I have [...] Meds:acetaminophen Q4H PRN, calcium gluconate IVPB PRN (Development Executive from Rx) AND Ionized Calcium PRN AND Notify Physician Ongoing, fentaNYL citrate PF Q1H PRN, hydrALAZINE Q6H PRN, HYDROcodone/acetaminophen Q4H PRN, magnesium sulfate PRN AND Magnesium PRN AND Notify Physician Ongoing, ondansetron Q6H PRN, pancrelipase 20,000 Units/ sodium bicarbonate 650 mg(#) PRN (Development Executive from Rx), potassium chloride SR PRN OR [...] optimize venous drainage Maintain normothermia, avoid hypoxemia, Nebo appropriate osmotherapy ( i.e mannitol vs Hypertonic [...] (Last 24 hours): Glucose: (!) 184 (12/27/16 8366) Drains: reviewed Prophylaxis Review: Lines: No Urinary [...] aspiration. Monitor for BM Social work and upper caser for discharge planning and placement. Family Meeting and update: yes. Patient is unable to make his or her decisions, family updated during rounds. Goals of therapy: Addressed, Patient is a full code Nurses concerns addressed. 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) Dementia TIA (transient ischemic attack) Chronic back pain EVD catheter withdrawn 12/25/16 Pulled back again this AM (12/27/16), CT head ordered to evaluate new position Na- 149, On 2% @20, PO salt Keppra LOCK TENDER ASA/Plavix held Q1H neurochecks PT/OT inpatient setting (will need rehab consult) ST, NPO SW for DC planning Prophylaxis: A)GI: PPI B) Lines: No C) Urinary Catheter: No D) Antibiotic Usage: No E) VTE: Pharmacological prophylaxis; Contraindication: Bleeding risk; No SQH large ICH with hx of ASA/Plavix and Mechanical prophylaxis; Sequential compression device F) Restraints: Patient assessed for need for restraints. Phylicia Duenas MD [id number] Please call [phone] with any questions. * Gurvinder Galicia - 12/26/2016 2:23 PM CDT SPEECH-LANGUAGE PATHOLOGY NO TREATMENT NOTE Per discussion w/ RN, pt still demonstrating lethargy and reduced arousal and not appropriate for swallow treatment on this date. Do not anticipate changes in swallow function in near future. Will f/u 12/29. Attempted to see patient 1 time Therapist: SUZANNE Perez, CF-COAT ROOM ATTENDANT [phone] Date: 12/26/2016 * Kyle Christensen - [...] osteoporosis, arthritis, chronic back pain, admitted to [facility] with Left frontal IPH on [...] 12/22/2016 Added automatically from request for surgery [id number] Hospital and ICU course: 12/22: admitted to [...] - Per Took 10/325mg Hydrocodone q6 hours LOCK TENDER- Minimize narcotic use - Assess for delirium [...] bowel regimen, ensure daily BM Heme: -hold LOCK TENDER Plavix and ASA - 12/24 Hgb 10.6 [...] Meds:acetaminophen Q4H PRN, calcium gluconate IVPB PRN (Development Executive from Rx) AND Ionized Calcium PRN AND Notify Physician Ongoing, fentaNYL citrate PF Q1H PRN, hydrALAZINE Q6H PRN, HYDROcodone/acetaminophen Q4H PRN, magnesium sulfate PRN AND Magnesium PRN AND Notify Physician Ongoing, ondansetron Q6H PRN, pancrelipase 20,000 Units/ sodium bicarbonate 650 mg(#) PRN (Development Executive from Rx), potassium chloride SR PRN OR [...] care 50 min Inocencio LacKamp Date: 12/26/[phone] * Carrie Lindquist, JAYLA-BUTTON MACHINE OPERATOR - 12/26/2016 7:47 AM CDT Formatting of this note may be different from the original. Neuroscience Critical Care Progress Note [facility] Admission Date: 12/22/2016 LOS: 4 days 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) 2016 Dementia 12/23/2016 TIA (transient ischemic attack) 12/23/2016 Chronic back pain 12/23/2016 Intraparenchymal hemorrhage of brain (HCC) 12/22/2016 Added automatically from request for surgery [id number] Hospital and ICU course: 12/22: admitted to [...] - Keppra 500 mg BID - Holding LOCK TENDER Plavix (placed on after TIA) Sedation/Pain Management: [...] ensure daily BM (last 12/25) Heme: -hold LOCK TENDER Plavix and ASA - Hgb 9.1, Plt [...] PRN and Respiratory Meds:calcium gluconate IVPB PRN (Development Executive from Rx) AND Ionized Calcium PRN AND Notify Physician Ongoing, fentaNYL citrate PF Q1H PRN, hydrALAZINE Q6H PRN, HYDROcodone/acetaminophen Q4H PRN, magnesium sulfate PRN AND Magnesium PRN AND Notify Physician Ongoing, ondansetron Q6H PRN , pancrelipase 20,000 Units/ sodium bicarbonate 650 mg(#) PRN (Development Executive from Rx) , potassium chloride SR PRN [...] (119 lb 14.9 oz), SpO2 100 %. [place] coma score: E: 4 - Opens eyes [...] of care with consulted teams. Carrie Lindquist, PROCESS IMPROVEMENT CONSULTANT-BUTTON MACHINE OPERATOR Date: 12/26/[phone] * Nicole Little RN - 12/25/2016 7:21 [...] 12/22/2016 Added automatically from request for surgery [id number] Hospital and ICU course: 12/22: admitted to [...] - Keppra 500 mg BID - Hold LOCK TENDER Plavix (placed on after TIA) Sedation/Pain Management: Hx of Chronic back pain - Per Took 10/325mg Hydrocodone q6 hours LOCK TENDER- hold for now, use PRNs if needed [...] bowel regimen, ensure daily BM Heme: -hold LOCK TENDER Plavix and ASA - 12/24 Hgb 10.6 [...] PRN and Respiratory Meds:calcium gluconate IVPB PRN (Development Executive from Rx) AND Ionized Calcium PRN AND Notify Physician Ongoing, fentaNYL citrate PF Q1H PRN, hydrALAZINE Q6H PRN, HYDROcodone/acetaminophen Q4H PRN, magnesium sulfate PRN AND Magnesium PRN AND Notify Physician Ongoing, ondansetron Q6H PRN , pancrelipase 20,000 Units/ sodium bicarbonate 650 mg(#) PRN (Development Executive from Rx) , potassium chloride SR PRN [...] Intake/Output Summary (Last 24 hours) at 12/25/16 5638 Last data filed at 12/25/16 1800 Gross per 24 hour Intake 1565 ml Output 1240 ml Net 325 ml Stool Occurrence: 1 Physical Exam: Blood pressure 132/57, pulse 73, temperature 36.7 C (98 F), height 154.9 cm (61"), weight 56.4 kg (124 lb 5.4 oz), SpO2 97 %. [place] coma score: E: 4 - Opens eyes [...] (Last 24 hours): Glucose: (!) 126 (12/25/16 6075) Radiology and Other Diagnostic Procedures Review: all noted Critical care 50 min Inocencio Haddad Date: 12/25/[phone] * Gurvinder Galicia - 12/25/2016 2:23 PM [...] therapy post acute hospitalization. Therapist: SUZANNE Perez, CF-COAT ROOM ATTENDANT [phone] Date: 12/25/2016 * Carrie Pack, OT - 12/25/2016 11:34 AM CDT OCCUPATIONAL THERAPY PROGRESS NOTE Admitting Diagnosis: large left front hematoma Hemorrhagic stroke (HCC) Patient seen x1 this date. Documentation reflects all daily treatment sessions. Subjective Pertinent Dx per Physician: 66 y.o. female PMH TIA, dementia, osteoporosis, arthritis, chronic back pain, admitted to [facility] with Left frontal IPH on [...] Therapist: HENRY James/Bharati [id number] Date: 12/25/2016 * yKle Christensen - 12/25/2016 11:34 AM CDT PHYSICAL THERAPY PROGRESS NOTE MOBILITY: Mobility Progressive Mobility Level: Stand Level of Assistance: Assist X2 Assistive Device: None Time Tolerated: 0-10 minutes Activity Limited By: Lethargy;Mental Status Variability SUBJECTIVE: Subjective Significant hospital events: 66 y.o. female PMH TIA, dementia, osteoporosis, arthritis, chronic back pain, admitted to [facility] with ICH on 12/22/16. 12/24 [...] 12/22/2016 Added automatically from request for surgery [id number] Hospital and ICU course: 12/22: admitted to [...] - Keppra 500 mg BID - Hold LOCK TENDER Plavix (placed on after TIA) Sedation/Pain Management: Hx of Chronic back pain - Per Took 10/325mg Hydrocodone q6 hours LOCK TENDER- hold for now, use PRNs if needed [...] bowel regimen, ensure daily BM Heme: -hold LOCK TENDER Plavix and ASA - 12/24 Hgb 10.6 [...] PRN and Respiratory Meds:calcium gluconate IVPB PRN (Development Executive from Rx) AND Ionized Calcium PRN AND [...] (124 lb 5.4 oz), SpO2 99 %. [place] coma score: E: 4 - Opens eyes [...] consulted teams. Ashia Patterson, JAYLA Date: 12/25/[phone] * Nicole Little RN - 12/24/2016 6:55 [...] 12/22/2016 Added automatically from request for surgery [id number] Miss Phillip is 66y/o female with large [...] watch for hydrocephalus - OT/PT - Hold LOCK TENDER Plavix (placed on after TIA) Sedation/Pain Management: Hx of Chronic back pain - Per Took 10/325mg Hydrocodone q6 hours LOCK TENDER- hold for now, use PRNs if needed [...] bowel regimen, ensure daily BM Heme: hold LOCK TENDER Plavix and ASA - assess for coagulopathy, [...] PRN and Respiratory Meds:calcium gluconate IVPB PRN (Development Executive from Rx) AND Ionized Calcium PRN AND [...] (122 lb 2.2 oz), SpO2 95 %. [place] coma score: E: 4 - Opens eyes [...] care 60 minutes Inocencio Haddad Date: 12/24/[phone] * Gurvinder Galicia - 12/24/2016 10:10 AM CDT SPEECH-LANGUAGE PATHOLOGY NO TREATMENT NOTE Per discussion w/ RN, pt NPO for procedure later this date and remains lethargic w/ decreased arousal. Will f/u 12/25 as pt is appropriate. Therapist: SUZANNE Perez, CF-COAT ROOM ATTENDANT [phone] Date: 12/24/2016 * Angela Benavides APRN [...] (HCC) Added automatically from request for surgery [id number] Nontraumatic cortical hemorrhage of left cerebral hemisphere (HCC) Dementia TIA (transient ischemic attack) Chronic back pain Off label Hilario, consented, pre op complete, marked CT head 12/23 stable, head CT 12/24 for OR planning Na- 144, On 2% @75, goal 145-155 Keppra LOCK TENDER ASA/Plavix held Q1H neurochecks PT/OT inpatient setting (will need rehab consult) ST, NPO SW for DC planning Prophylaxis: A)GI: PPI B) Lines: No C) Urinary Catheter: No D) Antibiotic Usage: No E) VTE: Pharmacological prophylaxis; Contraindication: Bleeding risk; No SQH large ICH with hx of ASA/Plavix and Mechanical prophylaxis; Sequential compression device F) Restraints: Patient assessed for need for restraints. Angela Benavides PROCESS IMPROVEMENT CONSULTANT 1184 Please call [phone] with any questions. * Robbie Singh, PROCESS IMPROVEMENT CONSULTANT - 12/24/2016 7:03 AM CDT Formatting of [...] 12/22/2016 Added automatically from request for surgery [id number] Hospital and ICU course: 12/22: admitted to [...] 500 mg BID - OT/PT - Hold LOCK TENDER Plavix (placed on after TIA) Sedation/Pain Management: Hx of Chronic back pain - Per Took 10/325mg Hydrocodone q6 hours LOCK TENDER- hold for now, use PRNs if needed [...] bowel regimen, ensure daily BM Heme: -hold LOCK TENDER Plavix and ASA - assess for coagulopathy, [...] PRN and Respiratory Meds:calcium gluconate IVPB PRN (Development Executive from Rx) AND Ionized Calcium PRN AND [...] care with consulted teams. Robbie Ambrose Singh, PROCESS IMPROVEMENT CONSULTANT Date: 12/24/[phone] * Brando Izaguirre RN - 12/23/2016 6:49 [...] will request records for this surgery in [facility] and the subsequent surgery in [facility]. It was not clear if [...] watch for hydrocephalus - OT/PT - Hold LOCK TENDER Plavix (placed on after TIA) Sedation/Pain Management: Hx of Chronic back pain - Per Took 10/325mg Hydrocodone q6 hours LOCK TENDER- hold for now, use PRNs if needed [...] bowel regimen, ensure daily BM Heme: hold LOCK TENDER Plavix and ASA - assess for coagulopathy, [...] PRN and Respiratory Meds:calcium gluconate IVPB PRN (Development Executive from Rx) AND Ionized Calcium PRN AND [...] care 70 minutes Inocencio Haddad Date: 12/23/[phone] * Mikie Ravi, RN - 12/23/2016 11:30 [...] arousal. Two attempted swallows were appreciated while COAT ROOM ATTENDANT was providing oral care. Laryngeal elevation appeared [...] osteoporosis, arthritis, chronic back pain, admitted to [facility] with ICH on 12/22/16. This [...] ongoing dysphagia assessment and treatment. Therapist:SUZANNE Perez, CF-COAT ROOM ATTENDANT [phone] Date:12/23/2016 * Kyle Christensen - 12/23/2016 8:30 AM CDT PHYSICAL THERAPY ASSESSMENT MOBILITY: Mobility Progressive Mobility Level: Passive sitting Level of Assistance: Assist X2 Assistive Device: None Time Tolerated: 0-10 minutes Activity Limited By: Mental Status Variability SUBJECTIVE: Subjective Significant hospital events: 66 y.o. female PMH TIA, dementia, osteoporosis, arthritis, chronic back pain, admitted to [facility] with ICH on 12/22/16. Mental [...] ASSESSMENT NOTE Patient Name: Roxy Phillip Room/Bed: [place] [address] Admitting Diagnosis: large left front hematoma Hemorrhagic [...] osteoporosis, arthritis, chronic back pain, admitted to [facility] with Left frontal IPH on [...] Accessibility: Not Accessible Prior Function Level Of [place]: Independent with ADLs and functional transfers;Needed assistance [...] improving. Mary Sultana DO Neurology, PGY-3 Pager [phone] * Robbie Singh, PROCESS IMPROVEMENT CONSULTANT - 12/23/2016 6:27 AM CDT Formatting of this note may be different from the original. Neuroscience Critical Care Progress Note Roxy Smith [facility] Admission Date: 12/22/2016 LOS: 1 day [...] 500 mg BID - OT/PT - Hold LOCK TENDER Plavix (placed on after TIA) Sedation/Pain Management: Hx of Chronic back pain - Per Took 10/325mg Hydrocodone q6 hours LOCK TENDER- hold for now, use PRNs if needed [...] bowel regimen, ensure daily BM Heme: hold LOCK TENDER Plavix and ASA - assess for coagulopathy, [...] PRN and Respiratory Meds:calcium gluconate IVPB PRN (Development Executive from Rx) AND Ionized Calcium PRN AND [...] of care with consulted teams Robbie Singh, PROCESS IMPROVEMENT CONSULTANT Date: 12/23/[phone] * Mikie Ravi, RN - 12/22/2016 6:36 [...] 12/22/2016 [place] AC=Airway clearance AM=Aerosolized medication BA=[place] aerosol DB&C=Deep breathe & cough FEV1=Forced expiratory volume in first second) IC=Inspiratory capacity LE=Lung expansion MDI=Metered dose inhaler Neb=Nebulizer O2=Oxygen Oxim=Oximetry PEFR=Peak expiratory flow rate WEB CONTENT EDITOR=Rapid Response Team * Gurvinder Galicia - 12/22/2016 [...] osteoporosis, arthritis, chronic back pain, admitted to [facility] with ICH on 12/22/16. This [...] existing cavity. 3. Continued mass effect and brhq-fh-[id number] midline shift, difficult to quantify due to patient motion. Therapist: SUZANNE Perez, CF-COAT ROOM ATTENDANT [phone] Date: 12/22/2016 * Mikie Ravi RN [...] encounter H&P Notes * Luz Marina Obrien, MSN,PROCESS IMPROVEMENT CONSULTANT - 12/29/2016 9:55 AM CDT Formatting of [...] 0.5% Q4H PRN, calcium gluconate IVPB PRN (Development Executive from Rx) AND Ionized Calcium PRN AND Notify Physician Ongoing, fentaNYL citrate PF Q1H PRN, hydrALAZINE Q6H PRN, HYDROcodone/acetaminophen Q4H PRN, magnesium sulfate PRN AND Magnesium PRN * *AND Notify Physician Ongoing, ondansetron Q6H PRN, pancrelipase 20,000 Units / sodium bicarbonate 650 mg(#) PRN (Development Executive from Rx), potassium chloride SR PRN OR [...] H&P performed on 12/22/16. Luz Marina Obrien, MSN,PROCESS IMPROVEMENT CONSULTANT Pager [phone] * Marcos Herrmann MD - 12/22/2016 10:51 [...] new events noted, sign out obtained from material handler 2nd shift person ( nurse and NSICU physician). Patient [...] PRN and Respiratory Meds:calcium gluconate IVPB PRN (Development Executive from Rx) AND Ionized Calcium PRN AND [...] optimize venous drainage Maintain normothermia, avoid hypoxemia, Nebo appropriate osmotherapy ( i.e mannitol vs Hypertonic [...] at risk for aspiration. Social work and upper caser for discharge planning and placement. Family Meeting and update: yes. Patient is unable to make his or her decisions, family updated during rounds. Goals of therapy: Addressed, Patient is a full code Nurses concerns addressed. Disposition/Family: Continue ICU care due to # 1 X Marcos Herrmann MD Tool Planer Set Up Operator, Departments of Neurology and Radiology Pager: [phone] Date: 12/22/2016 X * Angela Benavides, PROCESS IMPROVEMENT CONSULTANT - 12/22/2016 2:09 PM CDT Formatting of [...] is a 66 y.o. female transfer from [facility] with large left frontal parenchymal hemorrhage found [...] existing cavity. 3. Continued mass effect and qrog-yf-zwkqy midline shift, difficult to quantify due to patient motion. 12/22 CTA head 1. No cerebral aneurysm or AVM is identified. 2. Stable large anterior left frontal intraparenchymal hematoma with unchanged rightward frontal midline shift and transalar herniation. Angela Benavides, PROCESS IMPROVEMENT CONSULTANT [phone] in this encounter Consult Notes * [...] and therefore needs a PEG tube for terminal carman nutrition. Past Medical History: Diagnosis Date Arthritis Chronic back pain Dementia Osteoporosis TIA (transient ischemic attack) No current facility-administered medications on file prior to encounter. No current outpatient prescriptions on file prior to encounter. Past Surgical History: Procedure Laterality Date HX TONSILLECTOMY HYSTERECTOMY ORTHOPEDIC SURGERY MO CRANIECTOMY HMTMA SUPRATENTORIAL INTRACEREBRAL Left 12/24/2016 CRANIOTOMY [...] 12/30/2016336 Adam Nicholson MD Personal Pager: # [phone] ATTESTATION I personally observed the resident performing [...] : 1950 Primary Insurance: MEDICARE Secondary Insurance: [facility] Tertiary Insurance: Financial Class: Medicare Date of Admission: 12/22/2016 Referring Physician: Antwan Guadarrama MD Reason for Consult: evaluate for Post-Acute Rehab/Placement Precautions: Fall, aspiration Active Problems IPH s/p crani and evacuation Dementia R hemiplegia Global Aphasia Cognitive deficit Impaired ADLs Impaired mobility Assessment & Plan Roxy Phillip is a 66 y.o. female admitted to [facility] on 12/22/2016 with the following issues: [...] removed prior to consideration for admission to [facility]. PT, OT, ST consulted to address deficits as below Impaired gait/mobility: LOCK TENDER pt was independent at community level without assistive device Currently requiring dependent assist for bed mobility. Mechanical lift for transfers. Will benefit from continued work with PT to address mobility deficits Impaired ADL: LOCK TENDER pt was independent Currently requiring total assist [...] hours while supine in bed, pressure relief [id number] in seated position, PRAFOs for pressure relief [...] concerns. Carla Graf MD Rehab Consult Pager: [phone] History of Present Illness Hospital Course: Roxy Phillip is a 66 y.o. female with PMH of dementia and TIA who presented via transfer from [facility] with large left frontal parenchymal hemorrhage found [...] Laterality Date HX TONSILLECTOMY HYSTERECTOMY ORTHOPEDIC SURGERY MO CRANIECTOMY HMTMA SUPRATENTORIAL INTRACEREBRAL Left 12/24/2016 CRANIOTOMY [...] Meds:acetaminophen Q4H PRN, calcium gluconate IVPB PRN (Development Executive from Rx) AND Ionized Calcium PRN AND Notify Physician Ongoing, fentaNYL citrate PF Q1H PRN, hydrALAZINE Q6H PRN, HYDROcodone/acetaminophen Q4H PRN, magnesium sulfate PRN AND Magnesium PRN AND Notify Physician Ongoing, ondansetron Q6H PRN, pancrelipase 20,000 Units/ sodium bicarbonate 650 mg(#) PRN (Development Executive from Rx), potassium chloride SR PRN OR [...] Shower (12/23/2016 3:00 PM) Patient lives in [place], [place] with her in a house with [...] for safety. TABS alarm and lapbelt on. COAT ROOM ATTENDANT COGNITIVE EVALUATION SUMMARY PRAGMATICS: BEHAVIOR: AUDITORY COMPREHENSION: [...] arousal. Two attempted swallows were appreciated while COAT ROOM ATTENDANT was providing oral care. Laryngeal elevation appeared [...] E43: Chronic illness/Severe malnutrition Estimated Calorie Needs: 7577-9424 (28-30 kcal/kg present wt 55.4kg) Estimated Protein Needs: 65-75 (1.2-1.4g/kg present wt 55.4kg) Oral Diet Order: NPO Comment: 66 y.o. female w/ PMH including dementia, chronic back pain, TIA; transferred to [facility] 12/22 with large left frontal [...] reflux, choking and swallowing limiting recent intake LOCK TENDER. Meets criteria for severe malnutrition in chronic [...] deficits with AMS;stroke Signs & Symptoms: NPO, COAT ROOM ATTENDANT findings, orders for EN consult Goals: Initiate nutrition Time Frame: Within [address] * Abhijeet Chin, PROCESS IMPROVEMENT CONSULTANT - 12/22/2016 1:19 PM CDT Associated Order(s): [...] arthritis , chronic back pain, admitted to [facility] with ICH on 12/22/16. Hospital [...] - Electrolyte replacement protocol Prophylaxis Review: A)GI: PPI/P8Pnilbdw B) Lines: No C) Urinary Catheter: Yes; [...] osteoporosis, arthritis, chronic back pain, admitted to [facility] with ICH on 12/22/16. This [...] radiologic and diagnostic procedures reviewed. Abhijeet Chin, PROCESS IMPROVEMENT CONSULTANT Date: 12/22/[phone] I spent 60 minutes managing the care [...] days Todays Date: 01/06/2017 Plan: [facility] at 1530. RN Report# [id number] ABBY reviewed EMR for POC and is following for assistance with DC planning. ABBY discussed pt with neurosurgery team. Team reports stability for DC. Pt's sodium levels improved from yesterday and pt more alert than day prior. ABBY attended Neuro-Rehab huddle where pt was discussed. Per rehab physicians, pt appropriate for IPR level of care. Per [facility] Yanelis, anticipate bed availability for pt today. Interventions ? Support Support: Pt/Family Updates re:POC or DC Plan, Counseling for Adaptation to Illness ABBY met with pt's Frank in room. Pt also present and wearing mitts. ABBY reviewed with Frank that [facility] has said that pt would be appropriate for IPR level of care. Additional education provided to Frank regarding IPR level of care , especially in comparison with SNF level of care. Frank reported that he is 90% certain that he and family would have preference for DC plan to [facility] though he wishes to discuss this with [...] that he plans to go to a [employer] game tomorrow with his nephew for some time away from the hospital. ABBY received phone call from Frank who reported that after discuss with Soledad and his son, all family is in agreement with plan for DC to [facility]. ABBY answered all necessary questions. ABBY provided [...] Rehabilitation ABBY discussed pt with Yanelis at [facility]. ABBY provided update to Yanelis that family has officially decided on DC plan to [facility]. Ilan mattson to picker/puller pt at 1530. RN Report# [id number]. ABBY provided update to primary team and [...] Disposition: Inpatient Rehab Facility (IRF) Inpatient Rehab: [facility] ([phone]) ? [facility] [place]: [phone] * Case Mgmt DC Plan - Mattie [...] of [phone] and unit phone# for report [phone]). Please leave in any functioning IV access for transition to 's IP rehab unit. Ryan, Inpatient Admissions Nurse/Rehab. ([phone]). * Care Plan - Angelica Nova, VANESSA [...] ? Discharge Planning Discharge Planning: Inpatient Rehabilitation, Shelter Facility ABBY let a message for Yanelis at [facility], ABBY requested phone call back. ABBY returned a call from Nena Randolph, to provide update on pt. Tomasa requested to be kept update on pt if pt decides to dc there. Tomasa's contact number is [phone] Update 1318 ABBY received a page from Yanelis at [facility] letting ABBY know Yanelis had paged rehab consult team for f/u. ABBY received a page from [facility] letting ABBY know pt would be reviewed again tomorrow but it was looking as if pt was more appropriate for SNF at this time. ? Medication Needs ? Financial ? Legal ? Other Disposition ? Discharge Preparation Type of Residence: Private residence Patient expects to be discharged to: Shelter Facility Was the patient receiving home care services?: No ? Expected Discharge Expected Discharge Date: 01/06/17 ? Discharge Disposition Izabella Roque [phone] * Care Plan - Shakeel Brito RN [...] Meds:acetaminophen Q4H PRN, calcium gluconate IVPB PRN (Development Executive from Rx) AND Ionized Calcium PRN AND Notify Physician Ongoing, hydrALAZINE Q6H PRN, HYDROcodone/acetaminophen Q4H PRN, magnesium sulfate PRN AND Magnesium PRN AND Notify Physician Ongoing, ondansetron Q6H PRN, pancrelipase 20,000 Units/ sodium bicarbonate 650 mg(#) PRN (Development Executive from Rx), potassium chloride SR PRN OR [...] from the original. [facility] [address] [place], [place] [address]vd. [place], [place] [address] PATIENT NAME: ROXY PHILLIP MR#/PT#: [id number] Page 2 OPERATIVE REPORT DATE OF OPERATION: 01/02/2017 SURGEON: Jong Hankins MD OBSTETRICAL TECH(S): Calvin Lundberg MD PREOPERATIVE DIAGNOSIS: Dysphagia. POSTOPERATIVE [...] and removed completely by the endoscopist. A 24-[place] PEG tube was then secured to the [...] There were no specimens removed. DRAINS: Include 24-[place] percutaneous endoscopic gastrostomy. COMPLICATIONS: None. Jong Hankins MD ATTESTATION I performed this procedure with a resident. Staff name: Jong Hankins MD Date: 01/08/2017 Dictated by: Calvin Lundberg MD / MEDQ /[id number] P cc: - Jong Hankins MD * [...] PACU - stable Jong Hankins MD Pager [phone] * Case Mgmt DC Plan - Betsy Peña - 01/01/2017 4:18 PM CDT Case Management Progress Note NAME:Roxy Phillip :1950 AGE: 66 y.o. ADMISSION DATE: 12/22/2016 DAYS ADMITTED: LOS: 10 days Todays Date: 01/01/2017 Plan: DC planning to inpt setting. ABBY reviewed EMR for POC and is following for assistance with DC planning. ABBY discussed pt with neurosurgery team. PROCESS IMPROVEMENT CONSULTANT notes marked improvement in pt's alertness. Peg was not able to be placed yesterday. Plan for peg placement Thursday. Videoswallow scheduled for Thursday. Disucssion of most appropriate level of care with PROCESS IMPROVEMENT CONSULTANT. PROCESS IMPROVEMENT CONSULTANT in agreement with plan for rehab team follow up on Thursday. Interventions ? Support Support: Pt/Family Updates re:POC or DC Plan, Counseling for Adaptation to Illness ABBY met with pt's Frank in room. Frank indicated that he would like for pt to have more aggressive therapies than [facility] offers. ABBY reviewed new plan for rehab team to follow up with most appropriate level of care recommendations on Thursday. Frank in agreement and voiced that he would want to got to IPR at [facility] in [place], [place]. ABBY provided education that this is actually a SNF. Frank indicated that he thought it was a higher level of care than [facility] due to having Rehab in the name. [...] care pt has received while at [facility]. He denied further needs at this time. ? Info or Referral ? Discharge Planning Discharge Planning: Inpatient Rehabilitation, Shelter Facility ABBY followed up on referral at [facility]. B2B Sales Representative confirmed receipt of the referral but noted that admissions staff were out of the office but would call ABBY back. ABBY discussed possible rehab team follow up on Thursday with Yanelis at Rehab. In agreement. ? Medication Needs ? Financial ? Legal ? Other Disposition ? Discharge Preparation Type of Residence: Private residence Patient expects to be discharged to: Shelter Facility Was the patient receiving home care services?: No ? Expected Discharge Expected Discharge Date: 01/06/17 ? Discharge Disposition ? Next Level Care Betsy Peña LMSW Phone: [phone] * Case Mgmt DC Plan - Alison Acosta - 12/31/2016 4:11 PM CDT Request to Send Referral Received request from Betsy Peña [facility] to send referral to the following facility: [facility] [address] [place] [id number] Alison Acosta Fire Safety Inspector For additional assistance please contact [facility] *[phone] * Case Mgmt DC Plan - Betsy Peña - 12/31/2016 3:59 PM CDT Case Management Progress Note NAME:Roxy Phillip :1950 AGE: 66 y.o. ADMISSION DATE: 12/22/2016 DAYS ADMITTED: LOS: 9 days Todays Date: 12/31/2016 Plan: Referral pending at [facility] SNF. ABBY reviewed EMR for POC and is following for assistance with DC planning. ABBY discussed pt with neurosurgery team. Team reports plan for peg tube placement today. Anticipate stability for DC at the end of the week. Interventions ? Support Support: Pt/Family Updates re:POC or DC Plan, Counseling for Adaptation to Illness ABBY met with pt's Frank in [facility] as pt working with COAT ROOM ATTENDANT. Frank reported that their dtr Soledad has been looking into SNFs for pt and has identified one of interest located in [place], [place]. Frank was unable to remember the name of the facility. Frank inquired into whether Rehab was an option for pt. ABBY educated that presently, the recommendation remains for SNF level of care. Frank verbalized understanding. Frank inquired into transportation to [place] should this be the place that pt ends up DCing to. ABBY reviewed that ABBY would like to discuss this with PT and other parties to ensure that most appropriate plan is arranged. Plan for continued discussion on transportation for pt tomorrow. Frank in agreement. Frank agreeable to plan of ABBY calling Soledad to find out name of facility (suspect it is [facility] from google search) and send referral accordingly. ABBY phoned Soledad who confirmed that name of facility she is most interested in presently is [facility]. She is also agreeable to referral being sent there. She noted that she is trying to find the best care for pt but is unfamiliar with the facilities in [place]. ABBY provided education on Medicare Shelter Compare tool which Soledad indicated she would review this evening. She reported she is agreeable to ABBY follow up tomorrow to see if there are any additional referrals she would like sent. Plan also for ABBY to provide Medicare Shelter compare list to Frank as well as the ratings for [facility] ( not on the initial list as it is over 50 miles from [place], [place]). ABBY presented to pt's room and reviewed with Frank the discussion with Soledad. ABBY provided the prison compare list for [place] and information specific to [facility]. Frank was very appreciative. ? Info or Referral ? Discharge Planning Discharge Planning: Shelter Facility ABBY discussed pt with Yanelis at Rehab. ABBY discussed pt with PT. Even with pt's progress with therapies, PT still believes SNF is most appropriate for pt. ABBY tasked SURVEILLANCE ANALYST to send referral to [facility] SNF. ? Medication Needs ? Financial ? Legal ? Other Disposition ? Discharge Preparation Type of Residence: Private residence Patient expects to be discharged to: Shelter Facility Was the patient receiving home care services?: No ? Expected Discharge Expected Discharge Date: 01/02/17 ? Discharge Disposition ? Next Level Care Betsy Peña LMSW Phone: [phone] * Case Mgmt DC Plan - Betsy [...] residence Patient expects to be discharged to: Shelter Facility Was the patient receiving home care services?: No ? Expected Discharge Expected Discharge Date: 01/02/17 ? Discharge Disposition ? Next Level Care Betsy Peña LMSW Phone: [phone] * Critical Results - Delaney Lechuga RN - 12/27/2016 3:15 PM CDT Critical result or procedure called (document test and value, and read back): Blood culture drawn 12/26/16 from Left Forearm grew gram + cocci resembling staph Time MD/BUTTON MACHINE OPERATOR Notified: [id number] MD/BUTTON MACHINE OPERATOR Name: Terry Chin MD/BUTTON MACHINE OPERATOR Response/Orders Given: No new orders at this time * Case Mgmt DC Plan - Betsy Peña - 12/26/2016 1:55 PM CDT Case Management Progress Note NAME:Roxy Phillip :1950 AGE: 66 y.o. ADMISSION DATE: 12/22/2016 DAYS ADMITTED: LOS: 4 days Todays Date: 12/26/2016 Plan: Anticipate need for inpt setting. ABBY reviewed EMR for POC and is following for assistance with DC planning. BABY discussed pt with neurosurgery team. Pt with EVD and corpak Interventions ? Support Support: Counseling for Adaptation to Illness ABBY met with pt's Frank in room. Pt slept through visit. Also present was Frank's brother. Frank reported that he is doing well and had just come from [facility] to obtain more necessities for while he is staying at [facility] with pt. Frank reported that his nieces are flying in this weekend and his dtr is coming up from [place] this afternoon for the remainder of the weekend. Frank endorsed feeling well supported during this time. Denied needs prior to the weekend. ? Info or Referral ? Discharge Planning ? Medication Needs ? Financial ? Legal ? Other Disposition ? Discharge Preparation Type of Residence: Private residence Patient expects to be discharged to: Shelter Facility Was the patient receiving home care services?: No ? Expected Discharge Expected Discharge Date: 12/30/16 ? Discharge Disposition ? Next Level Care Betsy Peña LMSW Phone: [phone] * Anesthesia Post Op Day 1 - [...] PRN and Respiratory Meds:calcium gluconate IVPB PRN (Development Executive from Rx) AND Ionized Calcium PRN AND [...] OPERATIVE REPORT [facility] [address] [place], [place] [address] PATIENT NAME: Roxy Phillip MR#/PT#: [id number] DATE OF OPERATION: 12/25/16 SURGEON: Antwan Guadarrama MD CO-SURGEON: None OBSTETRICAL TECH(S): Suman Franco MD PREOPERATIVE DIAGNOSIS: 1. Intraparenchymal hemorrhage of brain (HCC) [I61.9] POSTOPERATIVE DIAGNOSIS: Same. OPERATIVE PROCEDURE: 1. Left frontal burrhole craniotomy for evacuation of ICH 2. Use of neuronavigation for stereotactic implantation of EVD ANESTHESIA: General INDICATIONS FOR OPERATIVE PROCEDURE: Please see full dictated H and P. Briefly, Roxy Phillip is a 66 y.o. female transfer from [facility] with large left frontal parenchymal hemorrhage found [...] padded. Patient's head was placed in the Crosby cranial tongs secured the bed with the bed attachment. The head was turned towards the right side in the apparatus for exposure of the left frontal region at the highest point of the exposure. BrainLab reference star was attached to the Crosby in the patient's preoperative CT was utilized [...] silk stitch. Patient was removed from the Crosby cranial tongs and taken to the ICU [...] I performed this procedure with a resident. [facility] Staff name: Antwan Guadarrama MD Date: 01/08/2017 [...] forgotten to bring his medications to [facility] and had not taken any for a [...] reviewed need for self-care while at [facility]. SW inquired into Frank's ongoing support system. Frank reported that his dtr is still at [facility] which he finds very helpful. He also [...] Next Level Care Betsy Peña LMSW Phone: [phone] * Case Mgmt DC Plan - Betsy [...] Contact Information Primary Emergency Contact: [place] [address] [facility] Relation: Spouse Secondary Emergency Contact: KenjiSoledad [facility] Relation: Daughter DPOA None. Transportation Does the patient need discharge transport arranged?: No Transportation Name, Phone and Availability #1: Sol[facility] ([phone]) Does the patient use Medicaid Transportation?: No [...] (BCBS) Additional Coverage: RX (Fills medications at [facility] in [place]. Reports medications are affordable.) SW scanned BCBS card and tubed to admitting. ? Source of Income Source Of Income: Other skilled nursing income ? Financial Assistance Needed? No Current/Previous [...] ? Outpatient Therapy PT: No OT: No COAT ROOM ATTENDANT: No ? SNF/NH SNF: No NH: No [...] Drug Use No Betsy Peña LMSW Phone: [phone] in this encounter Plan of Treatment Not [...] 100 MG/DL Specimen Performing Laboratory MAIN LAB [address] [place] [address] 25215 * POC GLUCOSE (01/06/2017 7:35 AM) Component Value Ref Range Glucose, POC 226 (H) 70 - 100 MG/DL Specimen Performing Laboratory MAIN LAB [address] [place] [address] 84104 * CBC AND DIFF (01/06/2017 5:54 AM) [...] K/UL Specimen Performing Laboratory Blood MAIN LAB [address] [place] [address] 96151 * BASIC METABOLIC PANEL (01/06/2017 5:54 AM) [...] questions. Specimen Performing Laboratory Blood MAIN LAB [address] [place], [place] [id number] * PHOSPHORUS (01/06/2017 5:54 AM) Component Value Ref Range Phosphorus 3.6 2.0 - 4.0 MG/DL Specimen Performing Laboratory Blood MAIN LAB [address] [place] [address] 17642 * MAGNESIUM (01/06/2017 5:54 AM) Component Value Ref Range Magnesium 2.4 1.6 - 2.6 mg/dL Specimen Performing Laboratory Blood MAIN LAB [address] [place] [address] 15943 * IONIZED CALCIUM (01/06/2017 5:54 AM) Component Value Ref Range Ionized Calcium 1.20 1.0 - 1.3 MMOL/L Specimen Performing Laboratory Blood MAIN LAB [address] [place] [address] 21255 * POC GLUCOSE (01/06/2017 2:46 AM) Component Value Ref Range Glucose, POC 194 (H) 70 - 100 MG/DL Specimen Performing Laboratory MAIN LAB [address] [place] [address] 26746 * POC GLUCOSE (01/05/2017 8:30 PM) Component Value Ref Range Glucose, POC 209 (H) 70 - 100 MG/DL Specimen Performing Laboratory MAIN LAB [address] [place] [address] 04597 * POC GLUCOSE (01/05/2017 6:08 PM) Component Value Ref Range Glucose, POC 176 (H) 70 - 100 MG/DL Specimen Performing Laboratory [facility] MAIN [facility] [address] [place] [address] * SWALLOW MOTION SERIES (01/05/2017 2:45 PM) [...] Specimen Performing Laboratory Urine MAIN LAB [address] [place] [address] Organism Antibiotic Method Susceptibility >100,000 organisms/ml Nitrofurantoin [...] INTERPRETATION Susceptible >100,000 organisms/ml Method SHAMEKA (MCG/ML) SHAMKEA (MCG/ML) enterococcus faecium INTERPRETATION INTERPRETATION <100,000 organisms/ml [...] LABEL Specimen Performing Laboratory Urine MAIN LAB [address] [place] [address] 32091 * URINALYSIS MICROSCOPIC REFLEX TO CULTURE (01/05/2017 [...] 0 - 5 Specimen Performing Laboratory Urine [facility] [address] [place] [address] 00097 * URINALYSIS DIPSTICK REFLEX TO CULTURE (01/05/2017 1:11 PM) Component Value Ref Range Color,UA YELLOW Turbidity,UA 1+ (A) CLEAR-CLEAR Specific [place]-Urine 1.021 1.003 - 1.035 pH,UA 6.0 5.0 [...] result. Specimen Performing Laboratory Urine MAIN LAB [address] [place] [address] 06754 * POC GLUCOSE (01/05/2017 12:21 PM) Component Value Ref Range Glucose, POC 319 (H) 70 - 100 MG/DL Specimen Performing Laboratory [facility] [address] [place] [address] 55992 * POC GLUCOSE (01/05/2017 8:19 AM) Component Value Ref Range Glucose, POC 170 (H) 70 - 100 MG/DL Specimen Performing Laboratory [facility]IN [facility] [address] [place] [address] * PHOSPHORUS (01/05/2017 5:35 AM) Component Value Ref Range Phosphorus 3.7 2.0 - 4.0 MG/DL Specimen Performing Laboratory Blood MAIN LAB [address] [place] [address] * MAGNESIUM (01/05/2017 5:35 AM) Component Value Ref Range Magnesium 2.6 1.6 - 2.6 mg/dL Specimen Performing Laboratory Blood MAIN LAB [address] [place] [address] 54573 * CBC AND DIFF (01/05/2017 5:35 AM) [...] Specimen Performing Laboratory Blood MAIN LAB [address] [place] [address] * BASIC METABOLIC PANEL (01/05/2017 5:35 AM) [...] Pharmacist for questions. Specimen Performing Laboratory Blood [facility] [address] [place] [address] 99221 * IONIZED CALCIUM (01/05/2017 4:00 AM) Component Value Ref Range Ionized Calcium 1.20 1.0 - 1.3 MMOL/L Specimen Performing Laboratory Blood [facility] [address] [place] [address] 41707 * POC GLUCOSE (01/05/2017 3:43 AM) Component Value Ref Range Glucose, POC 256 (H) 70 - 100 MG/DL Specimen Performing Laboratory [facility] [address] [place] [address] 40416 * POC GLUCOSE (01/04/2017 8:23 PM) Component Value Ref Range Glucose, POC 224 (H) 70 - 100 MG/DL Specimen Performing Laboratory [facility] [address] [place] [address] 09346 * POC GLUCOSE (01/04/2017 4:35 PM) Component Value Ref Range Glucose, POC 241 (H) 70 - 100 MG/DL Specimen Performing Laboratory [facility] [address] [place] [address] 86230 * POC GLUCOSE (01/04/2017 12:44 PM) Component Value Ref Range Glucose, POC 272 (H) 70 - 100 MG/DL Specimen Performing Laboratory [facility] [address] [place] [address] 71213 * POC GLUCOSE (01/04/2017 7:55 AM) Component Value Ref Range Glucose, POC 241 (H) 70 - 100 MG/DL Specimen Performing Laboratory [facility] [address] [place] [address] 13634 * PHOSPHORUS (01/04/2017 4:52 AM) Component Value Ref Range Phosphorus 3.8 2.0 - 4.0 MG/DL Specimen Performing Laboratory Blood [facility] [address] [place] [address] 57886 * MAGNESIUM (01/04/2017 4:52 AM) Component Value Ref Range Magnesium 2.6 1.6 - 2.6 mg/dL Specimen Performing Laboratory Blood MAIN LAB [address] [place] [address] * IONIZED CALCIUM (01/04/2017 4:52 AM) Component Value Ref Range Ionized Calcium 1.20 1.0 - 1.3 MMOL/L Specimen Performing Laboratory Blood MAIN LAB [address] [place] [address] * CBC AND DIFF (01/04/2017 4:52 AM) [...] Specimen Performing Laboratory Blood MAIN LAB [address] [place] [address] * BASIC METABOLIC PANEL (01/04/2017 4:52 AM) [...] Pharmacist for questions. Specimen Performing Laboratory Blood [facility] [address] [place] [address] 25938 * POC GLUCOSE (01/04/2017 4:09 AM) Component Value Ref Range Glucose, POC 194 (H) 70 - 100 MG/DL Specimen Performing Laboratory [facility] [address] [place] [address] 24396 * POC GLUCOSE (01/03/2017 8:39 PM) Component Value Ref Range Glucose, POC 124 (H) 70 - 100 MG/DL Specimen Performing Laboratory [facility] [address] [place] [address] 62658 * POC GLUCOSE (01/03/2017 4:53 PM) Component Value Ref Range Glucose, POC 142 (H) 70 - 100 MG/DL Specimen Performing Laboratory [facility] [address] [place] [address] 72205 * POC GLUCOSE (01/03/2017 12:22 PM) Component Value Ref Range Glucose, POC 139 (H) 70 - 100 MG/DL Specimen Performing Laboratory [facility] [address] [place] [address] 04062 * IONIZED CALCIUM (01/03/2017 9:48 AM) Component Value Ref Range Ionized Calcium 1.18 1.0 - 1.3 MMOL/L Specimen Performing Laboratory [facility] [address] [place] [address] 33154 * PHOSPHORUS (01/03/2017 9:33 AM) Component Value Ref Range Phosphorus 5.0 (H) 2.0 - 4.0 MG/DL Specimen Performing Laboratory Blood [facility] [address] [place] [address] 36189 * MAGNESIUM (01/03/2017 9:33 AM) Component Value Ref Range Magnesium 2.8 (H) 1.6 - 2.6 mg/dL Specimen Performing Laboratory Blood [facility] [address] [place], [place] [id number] * CBC AND DIFF (01/03/2017 9:33 AM) [...] Performing Laboratory Blood [facility]IN [facility] [address] [place] [address] * BASIC METABOLIC PANEL (01/03/2017 9:33 AM) [...] Performing Laboratory Blood [facility] [address] [place] [address] * POC GLUCOSE (01/03/2017 8:32 AM) Component Value Ref Range Glucose, POC 133 (H) 70 - 100 MG/DL Specimen Performing Laboratory [facility] [address] [place] [address] 81543 * POC GLUCOSE (01/02/2017 9:10 PM) Component Value Ref Range Glucose, POC 116 (H) 70 - 100 MG/DL Specimen Performing Laboratory [facility] [address] [place] [address] 86859 * POC GLUCOSE (01/02/2017 4:44 PM) Component Value Ref Range Glucose, POC 137 (H) 70 - 100 MG/DL Specimen Performing Laboratory [facility] [address] [place] [address] 87935 * POC GLUCOSE (01/02/2017 11:36 AM) Component Value Ref Range Glucose, POC 197 (H) 70 - 100 MG/DL Specimen Performing Laboratory [facility] [address] [place] [address] 51675 * POC GLUCOSE (01/02/2017 8:53 AM) Component Value Ref Range Glucose, POC 146 (H) 70 - 100 MG/DL Specimen Performing Laboratory [facility] [address] [place] [address] 13213 * IONIZED CALCIUM (01/02/2017 5:00 AM) Component Value Ref Range Ionized Calcium 0.99 (L)Comment: CHECKED 1.0 - 1.3 MMOL/L Specimen Performing Laboratory Blood [facility] [address] [place], [place] [id number] * PHOSPHORUS (01/02/2017 4:59 AM) Component Value Ref Range Phosphorus 4.5 (H) 2.0 - 4.0 MG/DL Specimen Performing Laboratory Blood [facility] [address] [place], [place] [address] * MAGNESIUM (01/02/2017 4:59 AM) Component Value Ref Range Magnesium 2.7 (H) 1.6 - 2.6 mg/dL Specimen Performing Laboratory Blood [facility] [address] [place] [address] * CBC AND DIFF (01/02/2017 4:59 AM) [...] Specimen Performing Laboratory Blood MAIN LAB [address] [place] [address] * BASIC METABOLIC PANEL (01/02/2017 4:59 AM) [...] Specimen Performing Laboratory Blood MAIN LAB [address] [place] [address] * POC GLUCOSE (01/01/2017 8:32 PM) Component Value Ref Range Glucose, POC 182 (H) 70 - 100 MG/DL Specimen Performing Laboratory MAIN LAB [address] [place] [address] * POC GLUCOSE (01/01/2017 5:49 PM) Component Value Ref Range Glucose, POC 221 (H) 70 - 100 MG/DL Specimen Performing Laboratory MAIN LAB [address] [place] [address] 57509 * POC GLUCOSE (01/01/2017 12:02 PM) Component Value Ref Range Glucose, POC 189 (H) 70 - 100 MG/DL Specimen Performing Laboratory [facility] [address] [place] [address] 82730 * POC GLUCOSE (01/01/2017 8:06 AM) Component Value Ref Range Glucose, POC 231 (H) 70 - 100 MG/DL Specimen Performing Laboratory MAIN LAB [address] [place] [address]64 * PHOSPHORUS (01/01/2017 5:07 AM) Component Value Ref Range Phosphorus 3.5 2.0 - 4.0 MG/DL Specimen Performing Laboratory Blood [facility] [address] [place] [address] 29761 * MAGNESIUM (01/01/2017 5:07 AM) Component Value Ref Range Magnesium 2.6 1.6 - 2.6 mg/dL Specimen Performing Laboratory Blood [facility] [address] [place] [address] 11038 * IONIZED CALCIUM (01/01/2017 5:07 AM) Component Value Ref Range Ionized Calcium 1.15 1.0 - 1.3 MMOL/L Specimen Performing Laboratory Blood [facility] [address] [place] [address] 99165 * CBC AND DIFF (01/01/2017 5:07 AM) [...] K/UL Specimen Performing Laboratory Blood MAIN LAB [address] [place] [address] 83698 * BASIC METABOLIC PANEL (01/01/2017 5:07 AM) [...] Specimen Performing Laboratory Blood MAIN LAB [address] [place], [place] [id number] * POC GLUCOSE (01/01/2017 4:00 AM) Component Value Ref Range Glucose, POC 191 (H) 70 - 100 MG/DL Specimen Performing Laboratory MAIN LAB [address] [place] [address] 27874 * POC GLUCOSE (12/31/2016 8:29 PM) Component Value Ref Range Glucose, POC 132 (H) 70 - 100 MG/DL Specimen Performing Laboratory MAIN LAB [address] [place] [address] 46979 * POC GLUCOSE (12/31/2016 5:21 PM) Component Value Ref Range Glucose, POC 149 (H) 70 - 100 MG/DL Specimen Performing Laboratory MAIN LAB [address] [place] [address] 27623 * POC GLUCOSE (12/31/2016 1:11 PM) Component Value Ref Range Glucose, POC 162 (H) 70 - 100 MG/DL Specimen Performing Laboratory MAIN LAB [address] [place] [address] 90770 * POC GLUCOSE (12/31/2016 8:53 AM) Component Value Ref Range Glucose, POC 134 (H) 70 - 100 MG/DL Specimen Performing Laboratory [facility] [address] [place] [address] 48727 * PHOSPHORUS (12/31/2016 5:25 AM) Component Value Ref Range Phosphorus 3.5 2.0 - 4.0 MG/DL Specimen Performing Laboratory Blood [facility] [address] [place] [address] 21706 * MAGNESIUM (12/31/2016 5:25 AM) Component Value Ref Range Magnesium 2.3 1.6 - 2.6 mg/dL Specimen Performing Laboratory Blood [facility] [address] [place], [place] [id number] * IONIZED CALCIUM (12/31/2016 5:25 AM) Component Value Ref Range Ionized Calcium 1.12 1.0 - 1.3 MMOL/L Specimen Performing Laboratory Blood [facility] [address] [place], [place] [id number] * CBC AND DIFF (12/31/2016 5:25 AM) [...] Specimen Performing Laboratory Blood [facility] MAIN [facility] [address] [place] [address] 77418 * BASIC METABOLIC PANEL (12/31/2016 5:25 AM) [...] questions. Specimen Performing Laboratory Blood MAIN LAB [address] [place] [address] 34393 * POC GLUCOSE (12/31/2016 4:11 AM) Component Value Ref Range Glucose, POC 121 (H) 70 - 100 MG/DL Specimen Performing Laboratory MAIN LAB [address] [place] [address] 61396 * POC GLUCOSE (12/30/2016 8:41 PM) Component Value Ref Range Glucose, POC 151 (H) 70 - 100 MG/DL Specimen Performing Laboratory MAIN LAB [address] [place] [address] 25131 * POC GLUCOSE (12/30/2016 5:43 PM) Component Value Ref Range Glucose, POC 159 (H) 70 - 100 MG/DL Specimen Performing Laboratory [facility] [address] [place] [address] 29475 * US DOPPLER VENOUS BILATERAL (12/30/2016 1:20 [...] MG/DL Specimen Performing Laboratory MAIN LAB [address] [place] [address] * POC GLUCOSE (12/30/2016 7:51 AM) Component Value Ref Range Glucose, POC 143 (H) 70 - 100 MG/DL Specimen Performing Laboratory [facility] [address] [place] [address] * IONIZED CALCIUM (12/30/2016 3:37 AM) Component Value Ref Range Ionized Calcium 1.01 1.0 - 1.3 MMOL/L Specimen Performing Laboratory Blood MAIN LAB [address] [place] [address] * PHOSPHORUS (12/30/2016 3:37 AM) Component Value Ref Range Phosphorus 4.3 (H) 2.0 - 4.0 MG/DL Specimen Performing Laboratory Blood MAIN LAB [address] [place] [address] * MAGNESIUM (12/30/2016 3:37 AM) Component Value Ref Range Magnesium 2.2 1.6 - 2.6 mg/dL Specimen Performing Laboratory Blood MAIN LAB [address] [place] [id number] * CBC AND DIFF (12/30/2016 3:37 AM) [...] Specimen Performing Laboratory Blood MAIN LAB [address] [place] [address] * BASIC METABOLIC PANEL (12/30/2016 3:37 AM) [...] questions. Specimen Performing Laboratory Blood MAIN LAB [address] [place] [address] 52[address] * POC GLUCOSE (12/30/2016 3:27 AM) Component Value Ref Range Glucose, POC 196 (H) 70 - 100 MG/DL Specimen Performing Laboratory [facility] [address] [place] [address] 060[address] * POC GLUCOSE (12/29/2016 8:38 PM) Component Value Ref Range Glucose, POC 148 (H) 70 - 100 MG/DL Specimen Performing Laboratory MAIN LAB [address] [place] [address] 36556 * POC GLUCOSE (12/29/2016 5:25 PM) Component Value Ref Range Glucose, POC 165 (H) 70 - 100 MG/DL Specimen Performing Laboratory [facility] [address] [place] [address] 21635 * SODIUM (12/29/2016 4:55 PM) Component Value Ref Range Sodium 142 137 - 147 MMOL/L Specimen Performing Laboratory Blood [facility] [address] [place] [address] 62390 * POC GLUCOSE (12/29/2016 12:04 PM) Component Value Ref Range Glucose, POC 109 (H) 70 - 100 MG/DL Specimen Performing Laboratory [facility] [address] [place] [address] 96[address] * IR ARTERIOGRAM NEURO (12/29/2016 11:09 AM) [...] recurrent hemorrhage in the left frontal region. SHELL MOLDER. Laurent OBSTETRICAL TECH. 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 Local with Sedation PROCEDURE. Ultrasound [...] insure maintain an air free system. A 5-Comoran diagnostic catheter was introduced through the sheath. Utilizing a combination of roadmap, guidewire and direct catheter access techniques, a 5 [place] diagnostic catheter was used to perform diagnostic [...] recurrent hemorrhage in the left frontal region. SHELL MOLDER. Laurent OBSTETRICAL TECH. 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 Local with Sedation PROCEDURE. Ultrasound [...] insure maintain an air free system. A 5-Comoran diagnostic catheter was introduced through the sheath. Utilizing a combination of roadmap, guidewire and direct catheter access techniques, a 5 [place] diagnostic catheter was used to perform diagnostic [...] 100 MG/DL Specimen Performing Laboratory MAIN LAB [address] [place] [address] * IONIZED CALCIUM (12/29/2016 4:23 AM) Component Value Ref Range Ionized Calcium 1.11 1.0 - 1.3 MMOL/L Specimen Performing Laboratory Blood MAIN LAB [address] [place] [address] 85173 * PHOSPHORUS (12/29/2016 4:23 AM) Component Value Ref Range Phosphorus 3.5 2.0 - 4.0 MG/DL Specimen Performing Laboratory Blood MAIN LAB [address] [place] [address] * MAGNESIUM (12/29/2016 4:23 AM) Component Value Ref Range Magnesium 2.2 1.6 - 2.6 mg/dL Specimen Performing Laboratory Blood MAIN LAB [address] [place] [address] 97883 * CBC AND DIFF (12/29/2016 4:23 AM) [...] Specimen Performing Laboratory Blood MAIN LAB [address] [place] [address] * BASIC METABOLIC PANEL (12/29/2016 4:23 AM) [...] questions. Specimen Performing Laboratory Blood MAIN LAB [address] [place] [address] 72422 * POC GLUCOSE (12/29/2016 4:08 AM) Component Value Ref Range Glucose, POC 145 (H) 70 - 100 MG/DL Specimen Performing Laboratory MAIN LAB [address] [place] [address] * SODIUM (12/28/2016 9:53 PM) Component Value Ref Range Sodium 147 137 - 147 MMOL/L Specimen Performing Laboratory Blood MAIN LAB [address] [place] [address] * POC GLUCOSE (12/28/2016 8:30 PM) Component Value Ref Range Glucose, POC 134 (H) 70 - 100 MG/DL Specimen Performing Laboratory MAIN LAB [address] [place] [address] 54572 * MRI HEAD WO/W CONTRAST (12/28/2016 7:15 [...] 100 MG/DL Specimen Performing Laboratory MAIN LAB [address] [place] [address] 03433 * SODIUM (12/28/2016 4:18 PM) Component Value Ref Range Sodium 152 (H) 137 - 147 MMOL/L Specimen Performing Laboratory Blood MAIN LAB [address] [place] [address] 51739 * MAGNESIUM (12/28/2016 1:09 PM) Component Value Ref Range Magnesium 2.2 1.6 - 2.6 mg/dL Specimen Performing Laboratory Blood MAIN LAB [address] [place] [address] 59270 * POTASSIUM (12/28/2016 1:09 PM) Component Value Ref Range Potassium 4.1 3.5 - 5.1 MMOL/L Specimen Performing Laboratory Blood MAIN LAB [address] [place] [address] 94727 * POC GLUCOSE (12/28/2016 12:22 PM) Component Value Ref Range Glucose, POC 141 (H) 70 - 100 MG/DL Specimen Performing Laboratory MAIN LAB [address] [place] [address] 87964 * CTA NECK WO/W CONTRAST+POST P (12/28/2016 [...] the pharynx. Visualized major branches of the marshall of Mcpherson are patent without evidence of [...] the pharynx. Visualized major branches of the marshall of [place] are patent without evidence of [...] - 5.1 MMOL/L Specimen Performing Laboratory Blood [facility] [address] [place] [address] 93256 * SODIUM (12/28/2016 9:53 AM) Component Value Ref Range Sodium 142 137 - 147 MMOL/L Specimen Performing Laboratory Blood [facility] [address] [place] [address] 84628 * POC GLUCOSE (12/28/2016 9:04 AM) Component Value Ref Range Glucose, POC 170 (H) 70 - 100 MG/DL Specimen Performing Laboratory [facility] [address] [place] [address] 79071 * POC GLUCOSE (12/28/2016 4:02 AM) Component Value Ref Range Glucose, POC 159 (H) 70 - 100 MG/DL Specimen Performing Laboratory [facility] [address] [place], [place] [id number] * IONIZED CALCIUM (12/28/2016 3:35 AM) Component Value Ref Range Ionized Calcium 1.09 1.0 - 1.3 MMOL/L Specimen Performing Laboratory Blood [facility] [address] [place] [address] 5[address]01 * PHOSPHORUS (12/28/2016 3:35 AM) Component Value Ref Range Phosphorus 3.7 2.0 - 4.0 MG/DL Specimen Performing Laboratory Blood [facility] [address] [place], [place] [id number] * MAGNESIUM (12/28/2016 3:35 AM) Component Value Ref Range Magnesium 1.9 1.6 - 2.6 mg/dL Specimen Performing Laboratory Blood [facility] [address] [place], [place] [id number] * CBC AND DIFF (12/28/2016 3:35 AM) [...] Specimen Performing Laboratory Blood MAIN LAB [address] [place] [address] * BASIC METABOLIC PANEL (12/28/2016 3:35 AM) [...] Specimen Performing Laboratory Blood MAIN LAB [address] [place] [address] * SODIUM (12/27/2016 11:04 PM) Component Value Ref Range Sodium 142 137 - 147 MMOL/L Specimen Performing Laboratory Blood MAIN LAB [address] [place] [address] * PROCALCITONIN (12/27/2016 11:04 PM) Component Value Ref Range Procalcitonin <0.05 <0.10 NG/ML Specimen Performing Laboratory Blood MAIN LAB [address] [place] [address] * POC GLUCOSE (12/27/2016 9:00 PM) Component Value Ref Range Glucose, POC 151 (H) 70 - 100 MG/DL Specimen Performing Laboratory [facility] MAIN LAB [address] [place] [address] * POC GLUCOSE (12/27/2016 5:53 PM) Component Value Ref Range Glucose, POC 135 (H) 70 - 100 MG/DL Specimen Performing Laboratory MAIN LAB [address] [place] [address] * SODIUM (12/27/2016 4:39 PM) Component Value Ref Range Sodium 145 137 - 147 MMOL/L Specimen Performing Laboratory Blood MAIN LAB [address] [place] [address] * PROCALCITONIN (12/27/2016 10:43 AM) Component Value Ref Range Procalcitonin <0.05 <0.10 NG/ML Specimen Performing Laboratory Blood MAIN LAB [address] [place] [address] * SODIUM (12/27/2016 10:43 AM) Component Value Ref Range Sodium 148 (H) 137 - 147 MMOL/L Specimen Performing Laboratory Blood MAIN LAB [address] [place] [address] * CT HEAD WO CONTRAST (12/27/2016 10:12 [...] MMOL/L Specimen Performing Laboratory Blood MAIN LAB [address] [place] [address] 53416 * PHOSPHORUS (12/27/2016 3:56 AM) Component Value Ref Range Phosphorus 1.6 (L) 2.0 - 4.0 MG/DL Specimen Performing Laboratory Blood MAIN LAB [address] [place] [address] 60299 * MAGNESIUM (12/27/2016 3:56 AM) Component Value Ref Range Magnesium 1.9 1.6 - 2.6 mg/dL Specimen Performing Laboratory Blood MAIN LAB [address] [place] [address] 54891 * CBC AND DIFF (12/27/2016 3:56 AM) [...] K/UL Specimen Performing Laboratory Blood MAIN LAB [address] [place] [address] 22477 * BASIC METABOLIC PANEL (12/27/2016 3:56 AM) [...] Specimen Performing Laboratory Blood [facility] MAIN LAB [address] [place] [address] 45768 * POTASSIUM (12/26/2016 9:58 PM) Component Value Ref Range Potassium 4.3 3.5 - 5.1 MMOL/L Specimen Performing Laboratory Blood [facility] MAIN LAB [address] [place] [address] 98983 * SODIUM (12/26/2016 9:58 PM) Component Value Ref Range Sodium 154 (H) 137 - 147 MMOL/L Specimen Performing Laboratory Blood [facility] MAIN LAB [address] [place] [address] 91447 * POTASSIUM (12/26/2016 4:11 PM) Component Value Ref Range Potassium 3.4 (L) 3.5 - 5.1 MMOL/L Specimen Performing Laboratory Blood [facility] MAIN LAB [address] [place] [address] 81118 * SODIUM (12/26/2016 4:11 PM) Component Value Ref Range Sodium 156 (H) 137 - 147 MMOL/L Specimen Performing Laboratory Blood [facility] MAIN LAB [address] [place], [place] [id number] * CHEST SINGLE VIEW (12/26/2016 2:22 PM) [...] hemidiaphragm with the tip not in the zgput-dv-zqit. Heart size and pulmonary vasculature are within normal limits. No consolidation, pleural effusion, or pneumothorax. ACDF is noted. Partially visualized posterior spinal fixation hardware. Procedure Note Interface, Radiant Results - 12/26/2016 4:44 PM CDT CHEST SINGLE VIEW History: fever. Comparison: Chest radiograph from December 24, 2016. Findings: Enteric tube is in place coursing below the left hemidiaphragm with the tip not in the lrrxk-jf-niat. Heart size and pulmonary vasculature are within [...] Specimen Performing Laboratory Urine MAIN LAB [address] [place] [address] * URINALYSIS MICROSCOPIC REFLEX TO CULTURE (12/26/2016 12:37 PM) Component Value Ref Range WBCs,UA 0-2 0 - 2 /HPF RBCs,UA 2-10 0 - 3 /HPF Comment,UA Urine submitted for reflex culture if criteria are met:WBC>10, positive nitrite and/or >=1+ leukocyte esterase. If quantity is not sufficient, an addendum will follow. MucousUA TRACE Specimen Performing Laboratory Urine MAIN LAB [address] [place] [address] * URINALYSIS DIPSTICK REFLEX TO CULTURE (12/26/2016 12:37 PM) Component Value Ref Range Color,UA YELLOW Turbidity,UA CLEAR CLEAR-CLEAR Specific [place]-Urine 1.017 1.003 - 1.035 pH,UA 8.0 5.0 - 8.0 Protein,UA 1+ (A) NEG-NEG Glucose,UA NEG NEG-NEG Ketones,UA NEG NEG-NEG Bilirubin,UA NEG NEG-NEG Blood,UA 1+ (A) NEG-NEG Urobilinogen,UA NORMAL NORM-NORMAL Nitrite,UA NEG NEG-NEG Leukocytes,UA NEG NEG-NEG Urine Ascorbic Acid, UA NEG NEG-NEG Specimen Performing Laboratory Urine MAIN LAB [address] [place] [address] 58742 * CULTURE-BLOOD W/SENSITIVITY (12/26/2016 12:37 PM) Component Value Ref Range Battery Name BLOOD CULTURE Specimen Description BLOOD LEFT FOREARM Special Requests NONE Culture POSITIVE SMEAR: GRAM POSITIVE COCCI RESEMBLING STAPHYLOCOCCI one bottle only CRITICAL VALUE CALLED TO AND READ BACK BY/TIME/[employer] Delaney Vang 12/27/16 1456 TL STAPHYLOCOCCUS, COAGULASE NEGATIVE , probable contamination. Susceptibility performed only by special request. Report Status FINAL 01/01/2017 Specimen Performing Laboratory Blood MAIN LAB [address] [place], [place] [id number] * CULTURE-BLOOD W/SENSITIVITY (12/26/2016 12:37 PM) Component Value Ref Range Battery Name BLOOD CULTURE Specimen Description BLOOD LEFT ANTECUBITAL Special Requests NONE Culture NO GROWTH 5 DAYS Report Status FINAL 01/01/2017 Specimen Performing Laboratory Blood MAIN LAB [address] [place] [address] 426[address] * POTASSIUM (12/26/2016 10:30 AM) Component Value Ref Range Potassium 3.4 (L) 3.5 - 5.1 MMOL/L Specimen Performing Laboratory Blood MAIN LAB [address] [place] [address] 96183 * SODIUM (12/26/2016 10:30 AM) Component Value Ref Range Sodium 152 (H) 137 - 147 MMOL/L Specimen Performing Laboratory Blood MAIN LAB [address] [place] [address] * IONIZED CALCIUM (12/26/2016 4:16 AM) Component Value Ref Range Ionized Calcium 1.07 1.0 - 1.3 MMOL/L Specimen Performing Laboratory Blood MAIN LAB [address] [place] [address] 066[address] * PHOSPHORUS (12/26/2016 4:16 AM) Component Value Ref Range Phosphorus 2.6 2.0 - 4.0 MG/DL Specimen Performing Laboratory Blood MAIN LAB [address] [place] [address]17 * MAGNESIUM (12/26/2016 4:16 AM) Component Value Ref Range Magnesium 2.2 1.6 - 2.6 mg/dL Specimen Performing Laboratory Blood [facility] MAIN LAB [address] [place] [address] * CBC AND DIFF (12/26/2016 4:16 AM) [...] Specimen Performing Laboratory Blood MAIN LAB [address] [place] [address] * BASIC METABOLIC PANEL (12/26/2016 4:16 AM) [...] Performing Laboratory Blood [facility] MAIN LAB [address] [place] [address] * SODIUM (12/25/2016 10:25 PM) Component Value Ref Range Sodium 151 (H) 137 - 147 MMOL/L Specimen Performing Laboratory Blood [facility] MAIN LAB [address] [place] [address] * SODIUM (12/25/2016 4:36 PM) Component Value Ref Range Sodium 151 (H) 137 - 147 MMOL/L Specimen Performing Laboratory Blood [facility] MAIN LAB [address] [place] [address] * CT HEAD WO CONTRAST (12/25/2016 2:21 [...] 0.05 NG/ML Specimen Performing Laboratory MAIN LAB [address] [place] [address] * POTASSIUM (12/25/2016 10:52 AM) Component Value Ref Range Potassium 4.0 3.5 - 5.1 MMOL/L Specimen Performing Laboratory Blood MAIN LAB [address] [place] [address] 35259 * SODIUM (12/25/2016 10:52 AM) Component Value Ref Range Sodium 152 (H) 137 - 147 MMOL/L Specimen Performing Laboratory Blood MAIN LAB [address] [place] [address] 85548 * IONIZED CALCIUM (12/25/2016 3:35 AM) Component Value Ref Range Ionized Calcium 1.09 1.0 - 1.3 MMOL/L Specimen Performing Laboratory Blood MAIN LAB [address] [place] [address] 46367 * PHOSPHORUS (12/25/2016 3:35 AM) Component Value Ref Range Phosphorus 2.4 2.0 - 4.0 MG/DL Specimen Performing Laboratory Blood MAIN LAB [address] [place] [address] 90930 * MAGNESIUM (12/25/2016 3:35 AM) Component Value Ref Range Magnesium 2.2 1.6 - 2.6 mg/dL Specimen Performing Laboratory Blood MAIN LAB [address] [place] [address] * CBC AND DIFF (12/25/2016 3:35 AM) [...] Specimen Performing Laboratory Blood MAIN LAB [address] [place] [address] * BASIC METABOLIC PANEL (12/25/2016 3:35 AM) [...] Performing Laboratory Blood [facility] MAIN LAB [address] [place] [address] * SODIUM (12/24/2016 10:00 PM) Component Value Ref Range Sodium 144 137 - 147 MMOL/L Specimen Performing Laboratory Blood [facility] MAIN LAB [address] [place] [address] * BLOOD GASES, ARTERIAL (12/24/2016 5:44 PM) Component Value Ref Range pH-Arterial 7.42 7.35 - 7.45 pCO2-Arterial 37 35 - 45 MMHG pO2-Arterial 165 (H) 80 - 100 MMHG Base Deficit-Arterial 0.0 MMOL/L O2 Sat-Arterial 99.6 (H) 95 - 99 % Lzxqphorvkh-NQA-Epr 24.4 21 - 28 MMOL/L Specimen Performing Laboratory Blood, arterial - Blood [facility] MAIN LAB [address] [place] [address] * SODIUM (12/24/2016 5:05 PM) Component Value Ref Range Sodium 145 137 - 147 MMOL/L Specimen Performing Laboratory Blood [facility] MAIN LAB [address] [place] [address] * CT HEAD WO CONTRAST (12/24/2016 4:33 [...] There is improved intracranial mass effect and wunp-sp-ggvup frontal midline shift now measuring 9 mm. [...] There is improved intracranial mass effect and gzys-tu-uuqjm frontal midline shift now measuring 9 mm. [...] Laboratory Stool - Feces MAIN LAB [address] [place] [address] * PLAVIX RESISTANCE (PLATELETWORKS) (12/24/2016 1:35 PM) Component Value Ref Range Platelet Inhibition 40 (H) 0 - 15 % Comment: Normal ADP inhibition should be less than 15%. Therapeutic (Plavix and other P2Y 12) levels should be greater than 30%. Specimen Performing Laboratory Blood [facility] MAIN LAB [address] [place] [address] * SODIUM (12/24/2016 11:40 AM) Component Value Ref Range Sodium 147 137 - 147 MMOL/L Specimen Performing Laboratory Blood MAIN LAB [address] [place] [address] * CHEST SINGLE VIEW (12/24/2016 4:35 AM) [...] MMOL/L Specimen Performing Laboratory Blood MAIN LAB [address] [place] [address] * PHOSPHORUS (12/24/2016 4:00 AM) Component Value Ref Range Phosphorus 2.3 2.0 - 4.0 MG/DL Specimen Performing Laboratory Blood MAIN LAB [address] [place], [place] [id number] * MAGNESIUM (12/24/2016 4:00 AM) Component Value Ref Range Magnesium 2.2 1.6 - 2.6 mg/dL Specimen Performing Laboratory Blood MAIN LAB [address] [place] [address] * CBC AND DIFF (12/24/2016 4:00 AM) [...] K/UL Specimen Performing Laboratory Blood MAIN LAB [address] [place] [address] * BASIC METABOLIC PANEL (12/24/2016 4:00 AM) [...] Performing Laboratory Blood [facility] MAIN LAB [address] [place] [address] * CT HEAD WO CONTRAST (12/24/2016 3:29 [...] significant change in left-sided transalar herniation and htog-re-hpdot midline shift, measuring approximately 1.1 cm. There [...] significant change in left-sided transalar herniation and spfg-gk-aoikz midline shift, measuring approximately 1.1 cm. There [...] POS Specimen Performing Laboratory Blood MAIN LAB [address] [place] [address] * SODIUM (12/23/2016 9:43 PM) Component Value Ref Range Sodium 142 137 - 147 MMOL/L Specimen Performing Laboratory Blood MAIN LAB [address] [place] [address] 63245 * TYPE & CROSSMATCH (12/23/2016 8:56 PM) Component Value Ref Range Units Ordered 2 Crossmatch Expires 12/26/2016 Record Check 2ND TYPE REQUIRED ABO/RH(D) A POS Antibody Screen NEG Specimen Performing Laboratory Blood MAIN LAB [address] [place] [address] 8[address]78 * BLOOD GASES, ARTERIAL (12/23/2016 8:00 PM) Component Value Ref Range pH-Arterial 7.46 (H) 7.35 - 7.45 pCO2-Arterial 33 (L) 35 - 45 MMHG pO2-Arterial 75 (L) 80 - 100 MMHG Base Excess-Arterial 0.2 MMOL/L O2 Sat-Arterial 95.9 95 - 99 % Lhanbjyaeqd-QMO-Ppv 24.6 21 - 28 MMOL/L Specimen Performing Laboratory Blood, arterial - Blood [facility] [address] [place], [place] [id number] * POTASSIUM (12/23/2016 6:14 PM) Component Value Ref Range Potassium 4.4 3.5 - 5.1 MMOL/L Specimen Performing Laboratory Blood [facility] [address] [place] [address] * SODIUM (12/23/2016 4:05 PM) Component Value Ref Range Sodium 142 137 - 147 MMOL/L Specimen Performing Laboratory [facility] [address] [place], [place] [id number] * PLATELET FUNCTION-PFA (12/23/2016 2:53 PM) Component [...] in this report. Specimen Performing Laboratory Blood [facility] [address] [place], [place] [id number] * LIPID PROFILE (12/23/2016 1:43 PM) Component [...] Specimen Performing Laboratory [facility] MAIN LAB [address] [place] [address] * POTASSIUM (12/23/2016 1:43 PM) Component Value Ref Range Potassium 3.8 3.5 - 5.1 MMOL/L Specimen Performing Laboratory Blood [facility] MAIN LAB [address] [place] [address] * MAGNESIUM (12/23/2016 1:43 PM) Component Value Ref Range Magnesium 2.4 1.6 - 2.6 mg/dL Specimen Performing Laboratory Blood [facility] MAIN LAB [address] [place] [address] * SODIUM (12/23/2016 1:43 PM) Component Value Ref Range Sodium 142 137 - 147 MMOL/L Specimen Performing Laboratory Blood [facility] MAIN LAB [address] [place] [address] * CT HEAD WO CONTRAST (12/23/2016 11:10 AM) Specimen Performing Laboratory [facility] RAD RESULTS Impressions 1.No significant change in size of the large left frontal mixed density hemorrhage with interval extension into the left lateral ventricle. 2.Slight decrease in neob-fq-lnaoo midline shift. 3.Interval increase in size of [...] examination. There is been slight improvement in awyz-ie-crvcj midline shift, now measuring 10 mm compared [...] examination. There is been slight improvement in yexj-sb-glhzm midline shift, now measuring 10 mm compared to 13 mm previously. The basal cisterns are patent. There are no destructive osseous lesions. The perinasal sinuses and mastoid air cells are clear. IMPRESSION 1. No significant change in size of the large left frontal mixed density hemorrhage with interval extension into the left lateral ventricle. 2. Slight decrease in nnrk-vr-qpsif midline shift. 3. Interval increase in size [...] MMOL/L Specimen Performing Laboratory Blood MAIN LAB [address] [place] [address] * POTASSIUM (12/23/2016 8:16 AM) Component Value Ref Range Potassium 3.9 3.5 - 5.1 MMOL/L Specimen Performing Laboratory Blood MAIN LAB [address] [place] [address] * BLOOD GASES, ARTERIAL (12/23/2016 7:37 AM) Component Value Ref Range pH-Arterial 7.48 (H) 7.35 - 7.45 pCO2-Arterial 33 (L) 35 - 45 MMHG pO2-Arterial 71 (L) 80 - 100 MMHG Base Excess-Arterial 1.3 MMOL/L O2 Sat-Arterial 95.2 95 - 99 % Hpyivzvevck-FOH-Bec 25.5 21 - 28 MMOL/L Specimen Performing Laboratory Blood, arterial - Blood MAIN LAB [address] [place] [address] * IONIZED CALCIUM (12/23/2016 4:30 AM) Component Value Ref Range Ionized Calcium 1.11 1.0 - 1.3 MMOL/L Specimen Performing Laboratory Blood MAIN LAB [address] [place] [address] * PHOSPHORUS (12/23/2016 4:30 AM) Component Value Ref Range Phosphorus 3.6 2.0 - 4.0 MG/DL Specimen Performing Laboratory Blood MAIN LAB [address] [place], [place] [id number] * MAGNESIUM (12/23/2016 4:30 AM) Component Value Ref Range Magnesium 1.8 1.6 - 2.6 mg/dL Specimen Performing Laboratory Blood MAIN LAB [address] [place] [address] * CBC AND DIFF (12/23/2016 4:30 AM) [...] Specimen Performing Laboratory Blood MAIN LAB [address] [place] [address] * BASIC METABOLIC PANEL (12/23/2016 4:30 AM) [...] Specimen Performing Laboratory Blood MAIN LAB [address] [place] [address] * HEMOGLOBIN A1C (12/23/2016 4:30 AM) Component Value Ref Range Hemoglobin A1C 5.2 4.0 - 6.0 % Comment: The ADA recommends that most patients with type 1 and type 2 diabetes maintain an A1c level <7%. Specimen Performing Laboratory Blood MAIN LAB [address] [place] [address] * BASIC METABOLIC PANEL (12/22/2016 11:14 PM) [...] Performing Laboratory Blood [facility] MAIN LAB [address] [place] [address] * CT HEAD WO CONTRAST (12/22/2016 7:56 [...] There is continued localized mass effect and ecgl-nq-djbsp frontal midline shift and transalar herniation. The [...] There is continued localized mass effect and tzys-ou-eighu frontal midline shift and transalar herniation. The [...] an existing cavity. 3.Continued mass effect and kksy-xj-qszym midline shift, difficult to quantify due to [...] changed. There is continued mass effect and dabr-ob-qkxbz midline shift. The degree of midline shift [...] changed. There is continued mass effect and adds-as-ppopc midline shift. The degree of midline shift [...] existing cavity. 3. Continued mass effect and rhpb-rf-ugsag midline shift, difficult to quantify due to [...] questions. Specimen Performing Laboratory Blood MAIN LAB [address] [place] [address] * PTT (APTT) (12/22/2016 1:45 PM) Component Value Ref Range APTT 23.7 (L) 24.0 - 40.0 SEC Specimen Performing Laboratory Blood MAIN LAB [address] [place] [address] 96[address] * PROTIME INR (PT) (12/22/2016 1:45 PM) Component Value Ref Range INR 1.0 0.8 - 1.2 Specimen Performing Laboratory Blood MAIN LAB [address] [place] [address] * CBC AND DIFF (12/22/2016 1:45 PM) [...] Performing Laboratory Blood [facility] MAIN LAB [address] [place] [address] * ABDOMEN AP ONLY (12/22/2016 7:08 AM) [...] 110 mL, Administer over 1 Hours, NEEDED (OUTSOLE CUTTER MACHINE FROM RX), Starting Thu12/22/16 at 1615, Until [...] CDT 60 mL, Intravenous, ONCE, 1 dose, [place] 12/28/16 at 1130, NOTE: This is a [...] Down Unit ONLY Delivers: Sodium 342 mEq/L, mOsm/L. NOTE: This is a HIGH ALERT [...]
--- OUTSIDE RECORDS SUMMARY | 2017-03-03 18:49 | XMS REPORT | Encounter Summary ---
Author Author [facility] Organization [facility] Address Unknown Phone Unavailable Care Team Providers Care [employer] [employer] Name Role Phone PCP Unavailable Encounter Details Date Type Department Care Team Description 01/02/2017 Procedure Pass Main Operating Room [address] [place] [address] Social History Tobacco Use Types [...]
--- OUTSIDE RECORDS SUMMARY | 2017-03-03 18:53 | XMS REPORT | Encounter Summary ---
Author Author [facility] Organization [facility] Address Unknown Phone Unavailable Care Team Providers Care Child Support Officer Name Role Phone PCP Unavailable Reason for Visit * Auth/Cert Status Reason Specialty Diagnoses / Referred By Referred To Procedures Contact Contact Diagnoses large left front hematoma Hemorrhagic stroke (HCC) Encounter Details Date Type Department Care Team Description 01/02/2017 Surgery Main Operating Room Jong Hankins MD INSERT[facility] GASTROSTOMY [address] [place] [address] [address] [place] [address] [phone] Social History Tobacco Use Types Packs/Day Years [...] notable for: 66 y.o. female transfer from [facility] with large left frontal parenchymal [...] of 0800 -1700, please call Theresa at [phone]. Otherwise, please call the main hospital number ([phone]) and ask for the neurosurgery resident solar installation manager to be paged. BLADDER SCAN BEDSIDE Every 4 hours STRAIGHT CATH Every 4 hours for > 300 ml on bladder scan INSTRUCTIONS, ADDITIONAL CT head without contrast prior to DC from rehab. Please call [phone] when completed. PT EVAL & TREAT PT EVAL & TREAT Report These Signs and Symptoms Call for pain that is uncontrolled with pain medication, numbness or weakness, vision changes, trouble with speech or slurring of speech, or any questions/ concerns. Questions About Your Stay For questions or concerns regarding your hospital stay. Call [phone] Discharging attending physician: ANTWAN GUADARRAMA [[id number]] Tube Feeding Isosource 1.5 45 ml/hr with [...] Post - Op with Antwan Guadarrama MD [facility] - Neurosurgery (P NeuroSurgery) 2nd Floor Pod [address] [facility] Med Office [facility] [id number] Pending items needing follow up: None Signed: [...] dysphagia assessment and treatment. Therapist: SUZANNE Perez, CF-SAFETY SITTER [phone] Date: 01/06/2017 * Jasmyne Avendaño OT [...] socks over her toes, pt able to pull worker heel with minimal assist for steadying/balance. 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 Mckenzie Montesinos, INORGANIC CHEMISTRY PROFESSOR 1440 Please call [phone] with any questions. * Kyle Christensen - 01/06/2017 8:54 AM CDT PHYSICAL THERAPY PROGRESS NOTE MOBILITY: Mobility Progressive Mobility Level: Walk laps Distance Walked (feet): 250 ft Level of Assistance: Assist X1 Assistive Device: Hand Held Time Tolerated: 11-30 minutes Activity Limited By: Fatigue SUBJECTIVE: Subjective Significant hospital events: 66 y.o. female PMH TIA, dementia, osteoporosis, arthritis, chronic back pain, [facility]. Mental / Cognitive [...] osteoporosis, arthritis, chronic back pain, [facility] 12/22/16. Large left frontal [...] Consist/Presentation* Presentations: Therapist Fed Thin Liquid: Cup [place] Thick Liquid: Cup, straw Education* Persons Educated: Patient Barriers To Learning: Impaired Communication, Decreased Alertness, Cognitive Deficits, Family not present Interventions: Staff Educated Teaching Methods: Verbal Topics: Aphasia, Dysphagia Patient Response: More Instruction Required Goals: Pt will participate in ongoing dysphagia assessment and treatment. 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 IVF 1/ 2NS 500ml bolus, and 150ml free water boluses every 4 hours SAFETY SITTER VS this afternoon SW for DC planning -anticipate ready for rehab tomorrow 01/06 Prophylaxis: A)GI: PPI B) Lines: No C) Urinary Catheter: No D) Antibiotic Usage: No E) VTE: Pharmacological prophylaxis; SQ Heparin and Mechanical prophylaxis; Sequential compression device F) Restraints: Patient assessed for need for restraints. Mckenzie Montesinos, INORGANIC CHEMISTRY PROFESSOR 6291 Please call [phone] with any questions. * Kyle Christensen - 01/05/2017 11:35 AM CDT PHYSICAL THERAPY PROGRESS NOTE MOBILITY: Mobility Progressive Mobility Level: Walk in hallway Distance Walked (feet): 120 ft Level of Assistance: Assist X2 Assistive Device: Hand Held Time Tolerated: 0-10 minutes Activity Limited By: Fatigue;Weakness SUBJECTIVE: Subjective Significant hospital events: 66 y.o. female PMH TIA, dementia, osteoporosis, arthritis, chronic back pain, [facility] 12[facility]16. 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) Dementia TIA (transient ischemic attack) Chronic back pain Intraparenchymal hemorrhage of brain (HCC) Added automatically from request for surgery [id number] Keppra TREKKING GUIDE ASA/Plavix held Q1H neurochecks PT/OT inpatient setting Rehab consulted, follow up early next week, family interested in [facility] PEG placed, TF's restarted at 1800 SAFETY SITTER VS Thursday SW for DC planning Prophylaxis: A)GI: PPI B) Lines: No C) Urinary Catheter: No D) Antibiotic Usage: No E) VTE: Pharmacological prophylaxis; SQ Heparin and Mechanical prophylaxis; Sequential compression device F) Restraints: Patient assessed for need for restraints. Abby Hernandez MD Please call [phone] with any questions. Associated attestation - Madhavi Rivera MD - 01/03/2017 12:42 PM CDT Attending Note Patient and imaging reviewed with resident/ CASINO ASSISTANT MANAGER. Patient seen and examined on . I [...] off at this time. Call with questions [id number] Discussed plan of care with Dr. Hankins [...] Intake/Output Summary (Last 24 hours) at 01/03/17 0889 Last data filed at 01/03/17 0500 Gross [...] calcium gluconate IVPB 1 g Intravenous PRN (Saute Chef from Rx) hydrALAZINE 10-20 mg Intravenous Q6H PRN HYDROcodone/acetaminophen 1-2 tablet Oral Q4H PRN magnesium sulfate 1 g Intravenous PRN ondansetron 4 mg Intravenous Q6H PRN pancrelipase 20,000 Units/ sodium bicarbonate 650 mg(#) 1 capsule Feeding Tube PRN (Saute Chef from Rx) potassium chloride SR 40 mEq [...] PO4 3.5 4.5* Karri Rai DO Pager: [phone] Associated attestation - Jong Hankins MD - [...] fashion. Jong Hankins MD Trauma/Critical Care/General Surgery [phone] * Calvin Lundberg DO - 01/02/2017 6:11 PM CDT ACS PEG usage: ok to use PEG for meds now. Tube feeds ok starting at 1800 on . Tamika 5144 * Alesha Patton, VANESSA - 01/02/2017 4:45 PM CDT Pt. Transferred to OR with transport via cart. VS stable. Ticket to ride provided and report given to GAS LINE SERVICER. * Gurvinder Galicia - 01/02/2017 3:56 PM CDT SPEECH-LANGUAGE PATHOLOGY NO TREATMENT NOTE The patient was not seen due to: Pt NPO for procedure (PEG placement) later this date. Will f/u 01/05. Therapist: SUZANNE Perez, CF-SAFETY SITTER [phone] Date: 01/02/2017 * Jasmyne Avendaño OT [...] osteoporosis, arthritis, chronic back pain, [facility] 12[facility]16. Mental / Cognitive [...] calcium gluconate IVPB 1 g Intravenous PRN (Saute Chef from Rx) hydrALAZINE 10-20 mg Intravenous Q6H PRN HYDROcodone/acetaminophen 1-2 tablet Oral Q4H PRN magnesium sulfate 1 g Intravenous PRN ondansetron 4 mg Intravenous Q6H PRN pancrelipase 20,000 Units/ sodium bicarbonate 650 mg(#) 1 capsule Feeding Tube PRN (Saute Chef from Rx) potassium chloride SR 40 mEq [...] 3.5 3.5 4.5* Karri Rai DO Pager: [phone] * Nicole Miller, RD - 01/01/2017 3:31 PM CDT CLINICAL NUTRITION Clinical Nutrition Follow-Up Summary Nutrition Assessment of Patient: Malnutrition Assessment: Malnutrition present Malnutrition Context: ICD-10 code E43: Chronic illness/Severe malnutrition Estimated Calorie Needs: 4016-3220 (28-30 kcal/kg dry wt 55.4kg) Estimated Protein Needs: 65-75 (1.2-1.4g/kg dry wt 55.4kg) Oral Diet Order: NPO 3 day Average Intake (calories) Daily Average : 838 kilocalories Intake (protein) Daily Average : 38 grams female w/ PMH including dementia, chronic back pain, TIA; transferred to [facility] 12/22 with large left frontal parenchymal [...] osteoporosis, arthritis, chronic back pain, [facility] with [facility] frontal IPH on . Patient [...] w/ verbal presentation of the word from SAFETY SITTER w/ max cues. VERBAL EXPRESSION Comments*: Pt [...] accuracy w/ max cues. Therapist: SUZANNE Perez, CF-SAFETY SITTER [phone] Date: 01/01/2017 * Kyle Christensen - [...] osteoporosis, arthritis, chronic back pain, [facility] 12[facility]16 Mental / Cognitive [...] aspiration. Pt inconsistently w/ spontaneous responses to SAFETY SITTER questions w/ 1 - to 3-word responses. [...] Corpak. Meds via Corpak. Anticipate need for correction alternative source of nutrition. Excellent oral care. [...] therapy post acute hospitalization. Therapist: SUZANNE Perez, CF-SAFETY SITTER [phone] Date: 01/01/2017 * Elen Styles RN [...] aspiration. Pt rarely w/ spontaneous responses to SAFETY SITTER questions w/ 1- or 2-word responses ("yeah", "pretty good"). Unable to elicit voice, cough, or throat clear on command. No family present during session. RECOMMENDATIONS: Remain NPO at this time due to waxing and waning alertness and lethargy w/ continued use of Corpak. Meds via Corpak. Anticipate need for correction alternative source of nutrition. Excellent oral care. [...] therapy post acute hospitalization. Therapist: SUZANNE Perez, CF-SAFETY SITTER [phone] Date: 12/31/2016 * Elen Styles RN [...] osteoporosis, arthritis, chronic back pain, [facility] 12/[facility]/16. Mental / Cognitive [...] calcium gluconate IVPB 1 g Intravenous PRN (Saute Chef from Rx) hydrALAZINE 10-20 mg Intravenous Q6H PRN HYDROcodone/acetaminophen 1-2 tablet Oral Q4H PRN magnesium sulfate 1 g Intravenous PRN ondansetron 4 mg Intravenous Q6H PRN pancrelipase 20,000 Units/ sodium bicarbonate 650 mg(#) 1 capsule Feeding Tube PRN (Saute Chef from Rx) potassium chloride SR 40 mEq [...] -- 4.3* 3.5 Adam Nicholson MD Pager: [phone] * Carrie Pack, OT - 12/31/2016 10:29 [...] osteoporosis, arthritis, chronic back pain, [facility] with [facility] IPH on . Patient to OR for hematoma evacuation and EVD placement on 12/24. Precautions: Falls Pain / Complaints: Patient demonstrates no signs of pain Objective Psychosocial Status: Willing and Cooperative to Participate Persons Present: Eyelet Operator ADL's Where Assessed: Standing at Sink Grooming [...] osteoporosis, arthritis, chronic back pain, [facility]CH [facility] 12/22/16. Mental / Cognitive [...] Light (TABs alarm activated) Comments: Recommend staff home therapy rn perform stand pivot transfer with 2 person [...] osteoporosis, arthritis, chronic back pain, [facility] with Left frontal IPH on . Patient [...] aspiration. Pt rarely w/ spontaneous responses to SAFETY SITTER questions w/ 1- or 2-word responses ("yeah", "pretty good"). Unable to elicit voice, cough, or throat clear on command. No family present during session. RECOMMENDATIONS: Remain NPO at this time due to waxing and waning alertness and lethargy w/ continued use of Corpak. Meds via Corpak. Anticipate need for correction alternative source of nutrition. Excellent oral care. [...] therapy post acute hospitalization. Therapist: SUZANNE Perez, CF-SAFETY SITTER [phone] Date: 12/30/2016 * Iwona Woo APRN [...] 12/22/2016 Added automatically from request for surgery [id number] Roxy Phillip is a 66 y.o. female [...] - Keppra 500 mg BID - Holding TREKKING GUIDE Plavix (placed on after TIA)- will discuss [...] Intake/Output Summary (Last 24 hours) at 12/30/16 0702 Last data filed at 12/30/16 0400 Gross [...] radiologic and diagnostic procedures reviewed. Iwona Woo, INORGANIC CHEMISTRY PROFESSOR Date: 12/30/[phone] I spent 40 minutes managing the care [...] <60. No new orders. Passed on to security shift manager nurse. Will continue to monitor closely. * [...] osteoporosis, arthritis, chronic back pain, [facility]CH [facility] 12/22/16. Mental / Cognitive [...] osteoporosis, arthritis, chronic back pain, [facility] with [facility] frontal IPH on . Patient [...] Corpak. Meds via Corpak. Anticipate need for watermaster alternative source of nutrition. Excellent oral care. [...] therapy post acute hospitalization. Therapist: SUZANNE Perez, CF-SAFETY SITTER [phone] Date: 12/29/2016 * Shantal Lopez, SERVANDO - 12/29/2016 2:25 PM CDT CLINICAL NUTRITION Clinical Nutrition Follow-Up Summary Nutrition Assessment of Patient: Malnutrition Assessment: Malnutrition present Malnutrition Context: ICD-10 code E43: Chronic illness/Severe malnutrition Estimated Calorie Needs: 8745-9504 (28-30 kcal/kg dry wt 55.4kg) Estimated Protein [...] dementia, chronic back pain, TIA; transferred to [facility] 12/22 with large left frontal parenchymal [...] 12/22/2016 Added automatically from request for surgery [id number] ATTESTATION Date of Service: 12/29/2016 I have [...] PO NaCl. Trend sodiums another day. Cont TREKKING GUIDE ASA and plavix. CV - meeting SBP [...] 0.5% Q4H PRN, calcium gluconate IVPB PRN (Saute Chef from Rx) AND Ionized Calcium PRN AND Notify Physician Ongoing, fentaNYL citrate PF Q1H PRN, hydrALAZINE Q6H PRN, HYDROcodone/acetaminophen Q4H PRN, magnesium sulfate PRN AND Magnesium PRN * *AND Notify Physician Ongoing, ondansetron Q6H PRN, pancrelipase 20,000 Units / sodium bicarbonate 650 mg(#) PRN (Saute Chef from Rx), potassium chloride SR PRN OR [...] 0423) POC Glucose (Download): (!) 109 (12/29/16 0471) Radiology and Other Diagnostic Procedures Review: Pertinent radiology reviewed. Mary Huntley MD 12/29/2016 Pager: [phone] * Daisy Benitez RN - 12/29/2016 10:18 [...] see patient 1 time Therapist: SUZANNE Perez, CF-SAFETY SITTER [phone] Date: 12/29/2016 * Ashia Patterson APRN [...] 12/22/2016 Added automatically from request for surgery [id number] Hospital and ICU course: 12/22: admitted to [...] - Keppra 500 mg BID - Holding TREKKING GUIDE Plavix (placed on after TIA) - Angio [...] 0.5% Q4H PRN, calcium gluconate IVPB PRN (Saute Chef from Rx) AND Ionized Calcium PRN AND Notify Physician Ongoing, fentaNYL citrate PF Q1H PRN, hydrALAZINE Q6H PRN, HYDROcodone/acetaminophen Q4H PRN, magnesium sulfate PRN AND Magnesium PRN * *AND Notify Physician Ongoing, ondansetron Q6H PRN, pancrelipase 20,000 Units / sodium bicarbonate 650 mg(#) PRN (Saute Chef from Rx), potassium chloride SR PRN OR [...] (123 lb 10.9 oz), SpO2 97 %. [place] coma score: E: 4 - Opens eyes [...] of care with consulted teams. Ashia Patterson, INORGANIC CHEMISTRY PROFESSOR Date: 12/29/[phone] * Jaswinder Gaspar MD - 12/29/2016 6:31 [...] (HCC) Added automatically from request for surgery [id number] Nontraumatic cortical hemorrhage of left cerebral hemisphere [...] 147, On 2% @20, PO salt Keppra TREKKING GUIDE ASA/Plavix held Q1H neurochecks PT/OT inpatient setting (will need rehab consult) ST, NPO SW for DC planning Prophylaxis: A)GI: PPI B) Lines: No C) Urinary Catheter: No D) Antibiotic Usage: No E) VTE: Pharmacological prophylaxis; Contraindication: Bleeding risk; No SQH large ICH with hx of ASA/Plavix and Mechanical prophylaxis; Sequential compression device F) Restraints: Patient assessed for need for restraints. Jaswinder Gaspar MD 1365 Please call [phone] with any questions. * Rommel Cisneros, VANESSA [...] admitted to the NSICU with: Left frontal [facility] Hospital and ICU course: 12/22: admitted to [...] 12/22/2016 Added automatically from request for surgery [id number] 24 hour I/O balance is as follows: Intake/Output Summary (Last 24 hours) at 12/28/16 0840 Last data filed at 12/28/16 0800 Gross per 24 hour Intake 2335 ml Output 1839 ml Net 496 ml __ Subjective: Roxy Phillip is a 66 y.o. female. Overnight Events: No new events noted, sign out obtained from security shift manager person ( nurse and ICU physician). Patient [...] Meds:acetaminophen Q4H PRN, calcium gluconate IVPB PRN (Saute Chef from Rx) AND Ionized Calcium PRN AND Notify Physician Ongoing, fentaNYL citrate PF Q1H PRN, hydrALAZINE Q6H PRN, HYDROcodone/acetaminophen Q4H PRN, magnesium sulfate PRN AND Magnesium PRN AND Notify Physician Ongoing, ondansetron Q6H PRN, pancrelipase 20,000 Units/ sodium bicarbonate 650 mg(#) PRN (Saute Chef from Rx), potassium chloride SR PRN OR [...] optimize venous drainage Maintain normothermia, avoid hypoxemia, Chauncey appropriate osmotherapy ( i.e mannitol vs Hypertonic [...] (Last 24 hours): Glucose: (!) 175 (12/28/16 5903) POC Glucose (Download): (!) 159 (12/28/16 8741) Drains: reviewed Prophylaxis Review: Lines: No Urinary [...] HAD BM on 12-27-16 Social work and case packer for discharge planning and placement. Family Meeting and update: yes. Patient is unable to make his or her decisions, family updated during rounds. Goals of therapy: Addressed, Patient is a full code Nurses concerns addressed. 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) Dementia TIA (transient ischemic attack) Chronic back pain EVD catheter withdrawn 12/25/16 Pulled back again this AM (12/27/16), CT head shows new position of catheter and decreased size of IPH Na- 143, On 2% @50, PO salt Keppra TREKKING GUIDE ASA/Plavix held Q1H neurochecks PT/OT inpatient setting (will need rehab consult) ST, NPO SW for DC planning Prophylaxis: A)GI: PPI B) Lines: No C) Urinary Catheter: No D) Antibiotic Usage: No E) VTE: Pharmacological prophylaxis; Contraindication: Bleeding risk; No SQH large ICH with hx of ASA/Plavix and Mechanical prophylaxis; Sequential compression device F) Restraints: Patient assessed for need for restraints. Phylicia Duenas MD 2022 Please call [phone] with any questions. * Robbie Singh, INORGANIC CHEMISTRY PROFESSOR - 12/28/2016 6:52 AM CDT Formatting of [...] 12/22/2016 Added automatically from request for surgery [id number] Hospital and ICU course: 12/22: admitted to [...] - Keppra 500 mg BID - Holding TREKKING GUIDE Plavix (placed on after TIA) 12/27 Head [...] Meds:acetaminophen Q4H PRN, calcium gluconate IVPB PRN (Saute Chef from Rx) AND Ionized Calcium PRN AND Notify Physician Ongoing, fentaNYL citrate PF Q1H PRN, hydrALAZINE Q6H PRN, HYDROcodone/acetaminophen Q4H PRN, magnesium sulfate PRN AND Magnesium PRN AND Notify Physician Ongoing, ondansetron Q6H PRN, pancrelipase 20,000 Units/ sodium bicarbonate 650 mg(#) PRN (Saute Chef from Rx), potassium chloride SR PRN OR [...] (122 lb 9.2 oz), SpO2 97 %. [place] coma score: E: 4 - Opens eyes [...] (Last 24 hours): Glucose: (!) 175 (12/28/16 0854) POC Glucose (Download): (!) 159 (12/28/16 2482) Radiology and Other Diagnostic Procedures Review: all noted I spent 45 minutes managing the care of this patient. Mrs Phillip is critically ill s/p ICH. Cares included: detailed neurologic and systems exam, medication review, laboratory data review and interpretation, electrolyte management, review of available imaging, DVT/PE prophylaxis review, diet review , activity review, and coordination of care with consulted teams. Robbie Singh, INORGANIC CHEMISTRY PROFESSOR Date: 12/28/[phone] * Delaney Lechuga RN - 12/27/2016 6:30 [...] 12/22/2016 Added automatically from request for surgery [id number] Hospital and ICU course: 12/22: admitted to [...] - Keppra 500 mg BID - Holding TREKKING GUIDE Plavix (placed on after TIA) 12/27 Head [...] daily BM (last 12/25) Heme: stable -hold TREKKING GUIDE Plavix and ASA - Hgb 11.0, Plt [...] Meds:acetaminophen Q4H PRN, calcium gluconate IVPB PRN (Saute Chef from Rx) AND Ionized Calcium PRN AND Notify Physician Ongoing, fentaNYL citrate PF Q1H PRN, hydrALAZINE Q6H PRN, HYDROcodone/acetaminophen Q4H PRN, magnesium sulfate PRN AND Magnesium PRN AND Notify Physician Ongoing, ondansetron Q6H PRN, pancrelipase 20,000 Units/ sodium bicarbonate 650 mg(#) PRN (Saute Chef from Rx), potassium chloride SR PRN OR [...] (121 lb 0.5 oz), SpO2 97 %. [place] coma score: E: 4 - Opens eyes [...] all noted Myke Hernandez MD Date: 12/27/[phone] Associated attestation - Marcos Herrmann MD - [...] 12/22/2016 Added automatically from request for surgery [id number] 24 hour I/O balance is as follows: Intake/Output Summary (Last 24 hours) at 12/27/16 1239 Last data filed at 12/27/16 1200 Gross per 24 hour Intake 2167 ml Output 2624 ml Net -457 ml __ Subjective: Roxy Phillip is a 66 y.o. female. Overnight Events: No new events noted, sign out obtained from security shift manager person ( nurse and [facility] [...] Meds:acetaminophen Q4H PRN, calcium gluconate IVPB PRN (Saute Chef from Rx) AND Ionized Calcium PRN AND Notify Physician Ongoing, fentaNYL citrate PF Q1H PRN, hydrALAZINE Q6H PRN, HYDROcodone/acetaminophen Q4H PRN, magnesium sulfate PRN AND Magnesium PRN AND Notify Physician Ongoing, ondansetron Q6H PRN, pancrelipase 20,000 Units/ sodium bicarbonate 650 mg(#) PRN (Saute Chef from Rx), potassium chloride SR PRN OR [...] optimize venous drainage Maintain normothermia, avoid hypoxemia, Chauncey appropriate osmotherapy ( i.e mannitol vs Hypertonic [...] (Last 24 hours): Glucose: (!) 184 (12/27/16 6416) Drains: reviewed Prophylaxis Review: Lines: No Urinary [...] aspiration. Monitor for BM Social work and case packer for discharge planning and placement. Family Meeting and update: yes. Patient is unable to make his or her decisions, family updated during rounds. Goals of therapy: Addressed, Patient is a full code Nurses concerns addressed. 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) Dementia TIA (transient ischemic attack) Chronic back pain EVD catheter withdrawn 12/25/16 Pulled back again this AM (12/27/16), CT head ordered to evaluate new position Na- 149, On 2% @20, PO salt Keppra TREKKING GUIDE ASA/Plavix held Q1H neurochecks PT/OT inpatient setting (will need rehab consult) ST, NPO SW for DC planning Prophylaxis: A)GI: PPI B) Lines: No C) Urinary Catheter: No D) Antibiotic Usage: No E) VTE: Pharmacological prophylaxis; Contraindication: Bleeding risk; No SQH large ICH with hx of ASA/Plavix and Mechanical prophylaxis; Sequential compression device F) Restraints: Patient assessed for need for restraints. Phylicia Duenas MD 6752 Please call [phone] with any questions. * Gurvinder Galicia - 12/26/2016 2:23 PM CDT SPEECH-LANGUAGE PATHOLOGY NO TREATMENT NOTE Per discussion w/ RN, pt still demonstrating lethargy and reduced arousal and not appropriate for swallow treatment on this date. Do not anticipate changes in swallow function in near future. Will f/u 12/29. Attempted to see patient 1 time Therapist: SUZANNE Perez, CF-SAFETY SITTER [phone] Date: 12/26/2016 * Kyle Christensen - [...] osteoporosis, arthritis, chronic back pain, [facility] on . Patient [...] 12/22/2016 Added automatically from request for surgery [id number] Hospital and ICU course: 12/22: admitted to [...] - Per Took 10/325mg Hydrocodone q6 hours TREKKING GUIDE- Minimize narcotic use - Assess for delirium [...] bowel regimen, ensure daily BM Heme: -hold TREKKING GUIDE Plavix and ASA - 12/24 Hgb 10.6 [...] Meds:acetaminophen Q4H PRN, calcium gluconate IVPB PRN (Saute Chef from Rx) AND Ionized Calcium PRN AND Notify Physician Ongoing, fentaNYL citrate PF Q1H PRN, hydrALAZINE Q6H PRN, HYDROcodone/acetaminophen Q4H PRN, magnesium sulfate PRN AND Magnesium PRN AND Notify Physician Ongoing, ondansetron Q6H PRN, pancrelipase 20,000 Units/ sodium bicarbonate 650 mg(#) PRN (Saute Chef from Rx), potassium chloride SR PRN OR [...] (119 lb 14.9 oz), SpO2 94 %. [place] coma score: E: 4 - Opens eyes [...] care 50 min Inocencio LacKamp Date: 12/26/[phone] * Carrie Lindquist, INORGANIC CHEMISTRY PROFESSOR-CASINO ASSISTANT MANAGER - 12/26/2016 7:47 AM CDT Formatting of [...] 12/22/2016 Added automatically from request for surgery [id number] Hospital and ICU course: 12/22: admitted to [...] - Keppra 500 mg BID - Holding TREKKING GUIDE Plavix (placed on after TIA) Sedation/Pain Management: [...] ensure daily BM (last 12/25) Heme: -hold TREKKING GUIDE Plavix and ASA - Hgb 9.1, Plt [...] PRN and Respiratory Meds:calcium gluconate IVPB PRN (Saute Chef from Rx) AND Ionized Calcium PRN AND Notify Physician Ongoing, fentaNYL citrate PF Q1H PRN, hydrALAZINE Q6H PRN, HYDROcodone/acetaminophen Q4H PRN, magnesium sulfate PRN AND Magnesium PRN AND Notify Physician Ongoing, ondansetron Q6H PRN , pancrelipase 20,000 Units/ sodium bicarbonate 650 mg(#) PRN (Saute Chef from Rx) , potassium chloride SR PRN [...] of care with consulted teams. Carrie Lindquist, INORGANIC CHEMISTRY PROFESSOR-CASINO ASSISTANT MANAGER Date: 12/26/[phone] * Nicole Little RN - 12/25/2016 7:21 [...] 12/22/2016 Added automatically from request for surgery [id number] Hospital and ICU course: 12/22: admitted to [...] - Keppra 500 mg BID - Hold TREKKING GUIDE Plavix (placed on after TIA) Sedation/Pain Management: Hx of Chronic back pain - Per Took 10/325mg Hydrocodone q6 hours TREKKING GUIDE- hold for now, use PRNs if needed [...] bowel regimen, ensure daily BM Heme: -hold TREKKING GUIDE Plavix and ASA - 12/24 Hgb 10.6 [...] PRN and Respiratory Meds:calcium gluconate IVPB PRN (Saute Chef from Rx) AND Ionized Calcium PRN AND Notify Physician Ongoing, fentaNYL citrate PF Q1H PRN, hydrALAZINE Q6H PRN, HYDROcodone/acetaminophen Q4H PRN, magnesium sulfate PRN AND Magnesium PRN AND Notify Physician Ongoing, ondansetron Q6H PRN , pancrelipase 20,000 Units/ sodium bicarbonate 650 mg(#) PRN (Saute Chef from Rx) , potassium chloride SR PRN [...] Intake/Output Summary (Last 24 hours) at 12/25/16 8898 Last data filed at 12/25/16 1800 Gross [...] (Last 24 hours): Glucose: (!) 126 (12/25/16 5133) Radiology and Other Diagnostic Procedures Review: all noted Critical care 50 min Inocencio Haddad Date: 12/25/[phone] * Gurvinder Galicia - 12/25/2016 2:23 PM [...] therapy post acute hospitalization. Therapist: SUZANNE Perez, CF-SAFETY SITTER [phone] Date: 12/25/2016 * Carrie Pack, OT - 12/25/2016 11:34 AM CDT OCCUPATIONAL THERAPY PROGRESS NOTE Admitting Diagnosis: large left front hematoma Hemorrhagic stroke (HCC) Patient seen x1 this date. Documentation reflects all daily treatment sessions. Subjective Pertinent Dx per Physician: 66 y.o. female PMH TIA, dementia, osteoporosis, arthritis, chronic back pain, [facility] on . Patient [...] osteoporosis, arthritis, chronic back pain, [facility] with ICH on 12/22/16. 12/24 CRANIOTOMY EVACUATION [...] 12/22/2016 Added automatically from request for surgery [id number] Hospital and ICU course: 12/22: admitted to [...] - Keppra 500 mg BID - Hold TREKKING GUIDE Plavix (placed on after TIA) Sedation/Pain Management: Hx of Chronic back pain - Per Took 10/325mg Hydrocodone q6 hours TREKKING GUIDE- hold for now, use PRNs if needed [...] bowel regimen, ensure daily BM Heme: -hold TREKKING GUIDE Plavix and ASA - 12/24 Hgb 10.6 [...] PRN and Respiratory Meds:calcium gluconate IVPB PRN (Saute Chef from Rx) AND Ionized Calcium PRN AND [...] consulted teams. Ashia Patterson, JAYLA Date: 12/25/[phone] * Nicole Little RN - 12/24/2016 6:55 [...] 12/22/2016 Added automatically from request for surgery [id number] Miss Phillip is 66y/o female with large [...] watch for hydrocephalus - OT/PT - Hold TREKKING GUIDE Plavix (placed on after TIA) Sedation/Pain Management: Hx of Chronic back pain - Per Took 10/325mg Hydrocodone q6 hours TREKKING GUIDE- hold for now, use PRNs if needed [...] bowel regimen, ensure daily BM Heme: hold TREKKING GUIDE Plavix and ASA - assess for coagulopathy, [...] PRN and Respiratory Meds:calcium gluconate IVPB PRN (Saute Chef from Rx) AND Ionized Calcium PRN AND [...] care 60 minutes Inocencio LacKamp Date: 12/24/[phone] * Gurvinder Galicia - 12/24/2016 10:10 AM CDT SPEECH-LANGUAGE PATHOLOGY NO TREATMENT NOTE Per discussion w/ RN, pt NPO for procedure later this date and remains lethargic w/ decreased arousal. Will f/u 12/25 as pt is appropriate. Therapist: SUZANNE Perez, CF-SAFETY SITTER [phone] Date: 12/24/2016 * Angela Benavides APRN [...] (HCC) Added automatically from request for surgery [id number] Nontraumatic cortical hemorrhage of left cerebral hemisphere (HCC) Dementia TIA (transient ischemic attack) Chronic back pain Off label Hilario, consented, pre op complete, marked CT head 12/23 stable, head CT 12/24 for OR planning Na- 144, On 2% @75, goal 145-155 Keppra TREKKING GUIDE ASA/Plavix held Q1H neurochecks PT/OT inpatient setting (will need rehab consult) ST, NPO SW for DC planning Prophylaxis: A)GI: PPI B) Lines: No C) Urinary Catheter: No D) Antibiotic Usage: No E) VTE: Pharmacological prophylaxis; Contraindication: Bleeding risk; No SQH large ICH with hx of ASA/Plavix and Mechanical prophylaxis; Sequential compression device F) Restraints: Patient assessed for need for restraints. Angela Soliselsie INORGANIC CHEMISTRY PROFESSOR [phone] Please call [phone] with any questions. * Robbie Singh, INORGANIC CHEMISTRY PROFESSOR - 12/24/2016 7:03 AM CDT Formatting of [...] 12/22/2016 Added automatically from request for surgery [id number] Hospital and ICU course: 12/22: admitted to [...] 500 mg BID - OT/PT - Hold TREKKING GUIDE Plavix (placed on after TIA) Sedation/Pain Management: Hx of Chronic back pain - Per Took 10/325mg Hydrocodone q6 hours TREKKING GUIDE- hold for now, use PRNs if needed [...] bowel regimen, ensure daily BM Heme: -hold TREKKING GUIDE Plavix and ASA - assess for coagulopathy, [...] PRN and Respiratory Meds:calcium gluconate IVPB PRN (Saute Chef from Rx) AND Ionized Calcium PRN AND [...] (122 lb 2.2 oz), SpO2 99 %. [place] coma score: E: 4 - Opens eyes [...] care with consulted teams. Robbie Boggs Francisco, INORGANIC CHEMISTRY PROFESSOR Date: 12/24/[phone] * Brando Izaguirre RN - 12/23/2016 6:49 [...] will request records for this surgery in [facility] and the subsequent surgery in [facility]. It was not clear [...] watch for hydrocephalus - OT/PT - Hold TREKKING GUIDE Plavix (placed on after TIA) Sedation/Pain Management: Hx of Chronic back pain - Per Took 10/325mg Hydrocodone q6 hours TREKKING GUIDE- hold for now, use PRNs if needed [...] bowel regimen, ensure daily BM Heme: hold TREKKING GUIDE Plavix and ASA - assess for coagulopathy, [...] PRN and Respiratory Meds:calcium gluconate IVPB PRN (Saute Chef from Rx) AND Ionized Calcium PRN AND [...] care 70 minutes Inocencio Haddad Date: 12/23/[phone] * Mikie Ravi RN - 12/23/2016 11:30 [...] arousal. Two attempted swallows were appreciated while SAFETY SITTER was providing oral care. Laryngeal elevation appeared [...] osteoporosis, arthritis, chronic back pain, [facility] 12[facility]16. This morning her [...] ongoing dysphagia assessment and treatment. Therapist:SUZANNE Perez, CF-SAFETY SITTER [phone] Date:12/23/2016 * Kyle Christensen - 12/23/2016 8:30 AM CDT PHYSICAL THERAPY ASSESSMENT MOBILITY: Mobility Progressive Mobility Level: Passive sitting Level of Assistance: Assist X2 Assistive Device: None Time Tolerated: 0-10 minutes Activity Limited By: Mental Status Variability SUBJECTIVE: Subjective Significant hospital events: 66 y.o. female PMH TIA, dementia, osteoporosis, arthritis, chronic back pain, [facility] with [facility]CH on 12/22/16. Mental / Cognitive [...] ASSESSMENT NOTE Patient Name: Roxy Phillip Room/Bed: [place] [address] Admitting Diagnosis: large left front hematoma Hemorrhagic [...] osteoporosis, arthritis, chronic back pain, [facility] with Left frontal IPH on . Precautions: [...] Accessibility: Not Accessible Prior Function Level Of [place]: Independent with ADLs and functional transfers;Needed assistance [...] improving. Mary Sultana DO Neurology, PGY-3 Pager [phone] * Robbie Singh, INORGANIC CHEMISTRY PROFESSOR - 12/23/2016 6:27 AM CDT Formatting of this note may be different from the original. Neuroscience Critical Care [facility] Date: 12/22/2016 LOS: 1 [...] 500 mg BID - OT/PT - Hold TREKKING GUIDE Plavix (placed on after TIA) Sedation/Pain Management: Hx of Chronic back pain - Per Took 10/325mg Hydrocodone q6 hours TREKKING GUIDE- hold for now, use PRNs if needed [...] bowel regimen, ensure daily BM Heme: hold TREKKING GUIDE Plavix and ASA - assess for coagulopathy, [...] PRN and Respiratory Meds:calcium gluconate IVPB PRN (Saute Chef from Rx) AND Ionized Calcium PRN AND [...] of care with consulted teams Robbie Singh, INORGANIC CHEMISTRY PROFESSOR Date: 12/23/[phone] * Mikie Ravi, RN - 12/22/2016 6:36 [...] 12/22/2016 [place] AC=Airway clearance AM=Aerosolized medication BA=Logan aerosol DB&C=Deep breathe & cough FEV1=Forced expiratory volume in first second) IC=Inspiratory capacity LE=Lung expansion MDI=Metered dose inhaler Neb=Nebulizer O2=Oxygen Oxim=Oximetry PEFR=Peak expiratory flow rate ROTARY FURNACE OPERATOR=Rapid Response Team * Gurvinder Galicia - 12/22/2016 [...] osteoporosis, arthritis, chronic back pain, [facility]CH on 12/22/16. This morning her [...] existing cavity. 3. Continued mass effect and nyrx-yw-lygbt midline shift, difficult to quantify due to patient motion. Therapist: SUZANNE Perez, CF-SAFETY SITTER [phone] Date: 12/22/2016 * Mikie Ravi RN [...] encounter H&P Notes * Luz Marina Obrien, MSN,INORGANIC CHEMISTRY PROFESSOR - 12/29/2016 9:55 AM CDT Formatting of [...] 0.5% Q4H PRN, calcium gluconate IVPB PRN (Saute Chef from Rx) AND Ionized Calcium PRN AND Notify Physician Ongoing, fentaNYL citrate PF Q1H PRN, hydrALAZINE Q6H PRN, HYDROcodone/acetaminophen Q4H PRN, magnesium sulfate PRN AND Magnesium PRN * *AND Notify Physician Ongoing, ondansetron Q6H PRN, pancrelipase 20,000 Units / sodium bicarbonate 650 mg(#) PRN (Saute Chef from Rx), potassium chloride SR PRN OR [...] H&P performed on 12/22/16. Luz Marina Obrien, MSN,INORGANIC CHEMISTRY PROFESSOR Pager [phone] * Marcos Herrmann MD - 12/22/2016 10:51 [...] new events noted, sign out obtained from security shift manager person ( nurse and NSICU physician). Patient [...] PRN and Respiratory Meds:calcium gluconate IVPB PRN (Saute Chef from Rx) AND Ionized Calcium PRN AND [...] optimize venous drainage Maintain normothermia, avoid hypoxemia, Chauncey appropriate osmotherapy ( i.e mannitol vs Hypertonic [...] at risk for aspiration. Social work and case packer for discharge planning and placement. Family Meeting and update: yes. Patient is unable to make his or her decisions, family updated during rounds. Goals of therapy: Addressed, Patient is a full code Nurses concerns addressed. Disposition/Family: Continue ICU care due to # 1 X Marcos Herrmann MD Ironing Worker, Departments of Neurology and Radiology Pager: [phone] Date: 12/22/2016 X * Ruma Benavidesen, INORGANIC CHEMISTRY PROFESSOR - 12/22/2016 2:09 PM CDT Formatting of [...] is a 66 y.o. female transfer from [facility] with large left frontal parenchymal [...] existing cavity. 3. Continued mass effect and skhj-ro-izane midline shift, difficult to quantify due to patient motion. 12/22 CTA head 1. No cerebral aneurysm or AVM is identified. 2. Stable large anterior left frontal intraparenchymal hematoma with unchanged rightward frontal midline shift and transalar herniation. Angela Benavides, INORGANIC CHEMISTRY PROFESSOR [phone] in this encounter Consult Notes * [...] and therefore needs a PEG tube for watermaster nutrition. Past Medical History: Diagnosis Date Arthritis Chronic back pain Dementia Osteoporosis TIA (transient ischemic attack) No current facility-administered medications on file prior to encounter. No current outpatient prescriptions on file prior to encounter. Past Surgical History: Procedure Laterality Date HX TONSILLECTOMY HYSTERECTOMY ORTHOPEDIC SURGERY NM CRANIECTOMY HMTMA SUPRATENTORIAL INTRACEREBRAL Left 12/24/2016 CRANIOTOMY [...] 12/30/2016336 Adam Nicholson MD Personal Pager: # [phone] ATTESTATION I personally observed the resident performing [...] : 1950 Primary Insurance: MEDICARE Secondary Insurance: [facility] Tertiary Insurance: Financial Class: Medicare Date of Admission: 12/22/2016 Referring Physician: Antwan Guadarrama MD Reason for Consult: evaluate for Post-Acute Rehab/Placement Precautions: Fall, aspiration Active Problems IPH s/p crani and evacuation Dementia R hemiplegia Global Aphasia Cognitive deficit Impaired ADLs Impaired mobility Assessment & Plan Roxy Phillip is a 66 y.o. female admitted to [facility] on 12/22/2016 with the following issues: IPH [...] removed prior to consideration for admission to [facility]. PT, OT, ST consulted to address deficits as below Impaired gait/mobility: TREKKING GUIDE pt was independent at community level without assistive device Currently requiring dependent assist for bed mobility. Mechanical lift for transfers. Will benefit from continued work with PT to address mobility deficits Impaired ADL: TREKKING GUIDE pt was independent Currently requiring total assist [...] hours while supine in bed, pressure relief [id number] in seated position, PRAFOs for pressure relief [...] concerns. Carla Graf MD Rehab Consult Pager: [phone] History of Present Illness Hospital Course: Roxy Phillip is a 66 y.o. female with PMH of dementia and TIA who presented via transfer from [facility] with large left frontal parenchymal [...] Laterality Date HX TONSILLECTOMY HYSTERECTOMY ORTHOPEDIC SURGERY NM CRANIECTOMY HMTMA SUPRATENTORIAL INTRACEREBRAL Left 12/24/2016 CRANIOTOMY [...] Meds:acetaminophen Q4H PRN, calcium gluconate IVPB PRN (Saute Chef from Rx) AND Ionized Calcium PRN AND Notify Physician Ongoing, fentaNYL citrate PF Q1H PRN, hydrALAZINE Q6H PRN, HYDROcodone/acetaminophen Q4H PRN, magnesium sulfate PRN AND Magnesium PRN AND Notify Physician Ongoing, ondansetron Q6H PRN, pancrelipase 20,000 Units/ sodium bicarbonate 650 mg(#) PRN (Saute Chef from Rx), potassium chloride SR PRN OR [...] Shower (12/23/2016 3:00 PM) Patient lives in [place], [place] with her in a house with [...] for safety. TABS alarm and lapbelt on. SAFETY SITTER COGNITIVE EVALUATION SUMMARY PRAGMATICS: BEHAVIOR: AUDITORY COMPREHENSION: [...] arousal. Two attempted swallows were appreciated while SAFETY SITTER was providing oral care. Laryngeal elevation appeared [...] E43: Chronic illness/Severe malnutrition Estimated Calorie Needs: 5747-4836 (28-30 kcal/kg present wt 55.4kg) Estimated Protein Needs: 65-75 (1.2-1.4g/kg present wt 55.4kg) Oral Diet Order: NPO Comment: 66 y.o. female w/ PMH including dementia, chronic back pain, TIA; transferred to [facility] 12/22 with large left frontal parenchymal [...] reflux, choking and swallowing limiting recent intake TREKKING GUIDE. Meets criteria for severe malnutrition in chronic [...] deficits with AMS;stroke Signs & Symptoms: NPO, SAFETY SITTER findings, orders for EN consult Goals: Initiate nutrition Time Frame: Within [address] * Abhijeet Chin, INORGANIC CHEMISTRY PROFESSOR - 12/22/2016 1:19 PM CDT Associated Order(s): [...] arthritis , chronic back pain, [facility] 12[facility]16. Hospital and ICU [...] - Electrolyte replacement protocol Prophylaxis Review: A)GI: PPI/[id number] B) Lines: No C) Urinary Catheter: Yes; [...] osteoporosis, arthritis, chronic back pain, [facility] 12/22/16. This morning her [...] weight 56.1 kg (123 lb 10.9 oz). [place] coma score: E: 4 - Opens eyes [...] radiologic and diagnostic procedures reviewed. Abhijeet Chin, INORGANIC CHEMISTRY PROFESSOR Date: 12/22/[phone] I spent 60 minutes managing the care [...] via stretcher van at 1530. RN Report# [id number] ABBY reviewed EMR for POC and is [...] level of care. Additional education provided to Frnak regarding IPR level of care , especially in comparison with SNF level of care. Frank reported that he is 90% certain that he and family would have preference for DC plan to [facility] though he wishes to discuss this [...] that he plans to go to a [employer] game tomorrow with his nephew for some time away from the hospital. ABBY received phone call from Frank who reported that after discuss with Soledad and his son, all family is in agreement with plan for DC to [facility]. ABBY answered all necessary questions. ABBY [...] Rehabilitation ABBY discussed pt with Yanelis at [facility]. ABBY provided update to Yanelis that family has officially decided on DC plan to [facility]. Ilan mattson to pickle solution maker pt at 1530. RN Report# [id number]. ABBY provided update to primary team and [...] Disposition: Inpatient Rehab Facility (IRF) Inpatient Rehab: [facility] Rehab ([phone]) ? Next Level Care Betsy Peña LMSW [...] RN back with final determination on placement. [phone] - Per Betsy (ABBY), patient's family would [...] IP rehab unit. Ryan, Inpatient Admissions Nurse/Rehab. ([phone] or [phone]). * Care Plan - Angelica Nova, VANESSA [...] ? Discharge Planning Discharge Planning: Inpatient Rehabilitation, Nursing Home Facility ABBY let a message for Yanelis at [facility], ABBY requested phone call back. ABBY returned a call from Nena Randolph, to provide update on pt. Tomasa requested to be kept update on pt if pt decides to dc there. Tomasa's contact number is [phone] Update 1521 ABBY received a page from Yanelis at [facility] letting ABBY know Yanelis had paged rehab consult team for f/u. ABBY received a page from [facility] letting ABBY know pt would be reviewed again tomorrow but it was looking as if pt was more appropriate for SNF at this time. ? Medication Needs ? Financial ? Legal ? Other Disposition ? Discharge Preparation Type of Residence: Private residence Patient expects to be discharged to: Nursing Home Facility Was the patient receiving home care services?: No ? Expected Discharge Expected Discharge Date: 01/06/17 ? Discharge Disposition Izabella Roque [phone] * Care Plan - Shakeel Brito RN [...] Meds:acetaminophen Q4H PRN, calcium gluconate IVPB PRN (Saute Chef from Rx) AND Ionized Calcium PRN AND Notify Physician Ongoing, hydrALAZINE Q6H PRN, HYDROcodone/acetaminophen Q4H PRN, magnesium sulfate PRN AND Magnesium PRN AND Notify Physician Ongoing, ondansetron Q6H PRN, pancrelipase 20,000 Units/ sodium bicarbonate 650 mg(#) PRN (Saute Chef from Rx), potassium chloride SR PRN OR [...] note may be different from the original. [address] [place], [place] [address] PATIENT NAME: ROXY PHILLIP MR#/PT#: [id number] Page 2 OPERATIVE REPORT DATE OF OPERATION: 01/02/2017 SURGEON: Jong Hankins MD MATERIAL EXPEDITER(S): Calvin Lundberg MD PREOPERATIVE DIAGNOSIS: Dysphagia. POSTOPERATIVE [...] and removed completely by the endoscopist. A 24-Greenlandic PEG tube was then secured to the [...] There were no specimens removed. DRAINS: Include 24-Greenlandic percutaneous endoscopic gastrostomy. COMPLICATIONS: None. Jong Hankins MD ATTESTATION I performed this procedure with a resident. Staff name: Jong Hankins MD Date: 01/08/2017 Dictated by: Calvin Lundberg MD / MEDQ /[id number] P cc: - Jong Hankins MD * [...] PACU - stable Jong Hankins MD Pager [phone] * Case Mgmt DC Plan - Mariana Betsy - 01/01/2017 4:18 PM CDT Case Management Progress Note NAME:Roxy Phillip :1950 AGE: 66 y.o. ADMISSION DATE: 12/22/2016 DAYS ADMITTED: LOS: 10 days Todays Date: 01/01/2017 Plan: DC planning to inpt setting. ABBY reviewed EMR for POC and is following for assistance with DC planning. ABBY discussed pt with neurosurgery team. INORGANIC CHEMISTRY PROFESSOR notes marked improvement in pt's alertness. Peg was not able to be placed yesterday. Plan for peg placement Thursday. Videoswallow scheduled for Thursday. Disucssion of most appropriate level of care with INORGANIC CHEMISTRY PROFESSOR. INORGANIC CHEMISTRY PROFESSOR in agreement with plan for rehab team follow up on Thursday. Interventions ? Support Support: Pt/Family Updates re:POC or DC Plan, Counseling for Adaptation to Illness ABBY met with pt's Frank in room. Frank indicated that he would like for pt to have more aggressive therapies than [facility] offers. ABBY reviewed new plan for rehab team to follow up with most appropriate level of care recommendations on Thursday. Frank in agreement and voiced that he would want to got to IPR at [facility] in [place], [place]. ABBY provided education that this is actually a SNF. Frank indicated that he thought it was a higher level of care than [facility] due to having Rehab in [...] ? Discharge Planning Discharge Planning: Inpatient Rehabilitation, Nursing Home Facility ABBY followed up on referral at [facility]. Game Design Instructor confirmed receipt of the referral but noted that admissions staff were out of the office but would call SW back. ABBY discussed possible rehab team follow up on Thursday with Yanelis at Rehab. In agreement. ? Medication Needs ? Financial ? Legal ? Other Disposition ? Discharge Preparation Type of Residence: Private residence Patient expects to be discharged to: Nursing Home Facility Was the patient receiving home care services?: No ? Expected Discharge Expected Discharge Date: 01/06/17 ? Discharge Disposition ? Next Level Care Betsy Peña LMSW Phone: [phone] * Case Mgmt DC Plan - Alison Acosta - 12/31/2016 4:11 PM CDT Request to Send Referral Received request from Betsy Peña [facility] to send referral to the following facility: [facility] [address] [place] [id number] Alison Acosta Dental Office Manager For additional assistance please contact [facility] *[phone] * Case Mgmt DC Plan - Betsy Peña - 12/31/2016 3:59 PM CDT Case Management Progress Note NAME:Roxy Phillip :1950 AGE: 66 y.o. ADMISSION DATE: 12/22/2016 DAYS ADMITTED: LOS: 9 days Todays Date: 12/31/2016 Plan: Referral pending at [facility] SNF. ABBY reviewed EMR for POC and is following for assistance with DC planning. ABBY discussed pt with neurosurgery team. Team reports plan for peg tube placement today. Anticipate stability for DC at the end of the week. Interventions ? Support Support: Pt/Family Updates re:POC or DC Plan, Counseling for Adaptation to Illness ABBY met with pt's Frank in [facility] as pt working with SAFETY SITTER. Frank reported that their dtr Soledad has been looking into SNFs for pt and has identified one of interest located in [place], [place]. Frank was unable to remember the name of the facility. Frank inquired into whether Rehab was an option for pt. ABBY educated that presently, the recommendation remains for SNF level of care. Frank verbalized understanding. Frank inquired into transportation to [place] should this be the place that pt ends up DCing to. ABBY reviewed that ABBY would like to discuss this with PT and other parties to ensure that most appropriate plan is arranged. Plan for continued discussion on transportation for pt tomorrow. Frank in agreement. Frank agreeable to plan of ABBY calling Soledad to find out name of facility (suspect it is [facility] from google search) and send referral accordingly. ABBY phoned Soledad who confirmed that name of facility she is most interested in presently is [facility]. She is also agreeable to referral being sent there. She noted that she is trying to find the best care for pt but is unfamiliar with the facilities in [place]. ABBY provided education on Medicare Nursing Home Compare tool which Soledad indicated she would review this evening. She reported she is agreeable to ABBY follow up tomorrow to see if there are any additional referrals she would like sent. Plan also for ABBY to provide Medicare Nursing Home compare list to Frank as well as the ratings for [facility] ( not on the initial list as it is over 50 miles from [place], [place]). ABBY presented to pt's room and reviewed with Frakn the discussion with Soledad. ABBY provided the [facility] compare list for [place] and information specific to [facility]. Frank was very appreciative. ? Info or Referral ? Discharge Planning Discharge Planning: Nursing Home Facility ABBY discussed pt with Yanelis at Rehab. ABBY discussed pt with PT. Even with pt's progress with therapies, PT still believes SNF is most appropriate for pt. ABBY tasked PROJECT PRODUCT MANAGER to send referral to [facility] SNF. ? Medication Needs ? Financial ? Legal ? Other Disposition ? Discharge Preparation Type of Residence: Private residence Patient expects to be discharged to: Nursing Home Facility Was the patient receiving home care services?: No ? Expected Discharge Expected Discharge Date: 01/02/17 ? Discharge Disposition ? Next Level Care Betsy Peña LMSW Phone: [phone] * Case Mgmt DC Plan - Betsy [...] residence Patient expects to be discharged to: Nursing Home Facility Was the patient receiving home care services?: No ? Expected Discharge Expected Discharge Date: 01/02/17 ? Discharge Disposition ? Next Level Care Betsy Peña LMSW Phone: [phone] * Critical Results - Delaney Lechuga RN - 12/27/2016 3:15 PM CDT Critical result or procedure called (document test and value, and read back): Blood culture drawn 12/26/16 from Left Forearm grew gram + cocci resembling staph Time MD/CASINO ASSISTANT MANAGER Notified: 1510 MD/CASINO ASSISTANT MANAGER Name: Terry Chin MD/CASINO ASSISTANT MANAGER Response/Orders Given: No new orders at this [...] doing well and had just come from [facility] to obtain more necessities for while he is staying at [facility] with pt. Frank reported that his nieces are flying in this weekend and his dtr is coming up from [facility] [facility] this afternoon for the remainder of the weekend. Frank endorsed feeling well supported during this time. Denied needs prior to the weekend. ? Info or Referral ? Discharge Planning ? Medication Needs ? Financial ? Legal ? Other Disposition ? Discharge Preparation Type of Residence: Private residence Patient expects to be discharged to: Nursing Home Facility Was the patient receiving home care services?: No ? Expected Discharge Expected Discharge Date: 12/30/16 ? Discharge Disposition ? Next Level Care Betsy Peña LMSW Phone: [phone] * Anesthesia Post Op Day 1 - [...] PRN and Respiratory Meds:calcium gluconate IVPB PRN (Saute Chef from Rx) AND Ionized Calcium PRN AND [...] different from the original. NEUROSURGERY OPERATIVE REPORT [facility] [address] [place], [place] [address] PATIENT NAME: Roxy Phillip MR#/PT#: [id number] DATE OF OPERATION: 12/25/16 SURGEON: Antwan Guadarrama MD CO-SURGEON: None MATERIAL EXPEDITER(S): Suman Franco MD PREOPERATIVE DIAGNOSIS: 1. Intraparenchymal hemorrhage of brain (HCC) [I61.9] POSTOPERATIVE DIAGNOSIS: Same. OPERATIVE PROCEDURE: 1. Left frontal burrhole craniotomy for evacuation of ICH 2. Use of neuronavigation for stereotactic implantation of EVD ANESTHESIA: General INDICATIONS FOR OPERATIVE PROCEDURE: Please see full dictated H and P. Briefly, Roxy Phillip is a 66 y.o. female transfer from [facility] with large left frontal parenchymal [...] padded. Patient's head was placed in the [place] cranial tongs secured the bed with the bed attachment. The head was turned towards the right side in the apparatus for exposure of the left frontal region at the highest point of the exposure. BrainLab reference star was attached to the [place] in the patient's preoperative CT was utilized [...] silk stitch. Patient was removed from the [place] cranial tongs and taken to the ICU [...] I performed this procedure with a resident. [facility] Staff name: Antwan Guadarrama MD Date: 01/08/2017 [...] Next Level Care Betsy Peña LMSW Phone: [phone] * Case Mgmt DC Plan - VelvetCesia [...] Emergency Contact Information Primary Emergency Contact: [place] [address] [facility] Relation: Spouse Secondary Emergency Contact: [facility]ed[facility] Relation: Daughter DPOA None. Transportation Does the patient need discharge transport arranged?: No Transportation Name, Phone and Availability #1: Soledad ([phone]) Does the patient use Medicaid Transportation?: No [...] (Fills medications at [facility] in [place]. Reports medications are affordable.) SW scanned BCBS card and tubed to admitting. ? Source of Income Source Of Income: Other longterm income ? Financial Assistance Needed? No Current/Previous [...] ? Outpatient Therapy PT: No OT: No SAFETY SITTER: No ? SNF/NH SNF: No NH: No [...] Drug Use No Betsy Peña LMSW Phone: [phone] in this encounter Plan of Treatment Not [...] MG/DL Specimen Performing Laboratory MAIN LAB [address] [place] [address] * POC GLUCOSE (01/06/2017 7:35 AM) Component Value Ref Range Glucose, POC 226 (H) 70 - 100 MG/DL Specimen Performing Laboratory MAIN LAB [address] [place] [address] * CBC AND DIFF (01/06/2017 5:54 AM) [...] K/UL Specimen Performing Laboratory Blood MAIN LAB [address] [place] [address] * BASIC METABOLIC PANEL (01/06/2017 5:54 AM) [...] Specimen Performing Laboratory Blood MAIN LAB [address] [place] [address] * PHOSPHORUS (01/06/2017 5:54 AM) Component Value Ref Range Phosphorus 3.6 2.0 - 4.0 MG/DL Specimen Performing Laboratory Blood MAIN LAB [address] [place], [place] [id number] * MAGNESIUM (01/06/2017 5:54 AM) Component Value Ref Range Magnesium 2.4 1.6 - 2.6 mg/dL Specimen Performing Laboratory Blood [facility] [address] [place] [address] * IONIZED CALCIUM (01/06/2017 5:54 AM) Component Value Ref Range Ionized Calcium 1.20 1.0 - 1.3 MMOL/L Specimen Performing Laboratory Blood [facility] [address] [place], [place] [id number] * POC GLUCOSE (01/06/2017 2:46 AM) Component Value Ref Range Glucose, POC 194 (H) 70 - 100 MG/DL Specimen Performing Laboratory MAIN LAB [address] [place] [address]22 * POC GLUCOSE (01/05/2017 8:30 PM) Component Value Ref Range Glucose, POC 209 (H) 70 - 100 MG/DL Specimen Performing Laboratory MAIN LAB [address] [place], [place] [id number] * POC GLUCOSE (01/05/2017 6:08 PM) Component Value Ref Range Glucose, POC 176 (H) 70 - 100 MG/DL Specimen Performing Laboratory MAIN LAB [address] [place] [address] * SWALLOW MOTION SERIES (01/05/2017 2:45 PM) [...] Performing Laboratory Urine [facility] MAIN LAB [address] [place] [address] Organism Antibiotic Method Susceptibility >100,000 organisms/ml Nitrofurantoin SAXENA MITCHELL INTERMEDIATE: enterococcus faecium Intermediate >100,000 organisms/ml Method SAXENA MITCHELL SAXENA MICTHELL enterococcus faecium >100,000 organisms/ml Ampicillin SHAMEKA (MCG/ML) [...] LABEL Specimen Performing Laboratory Urine MAIN LAB [address] [place] [address] * URINALYSIS MICROSCOPIC REFLEX TO CULTURE (01/05/2017 [...] 0 - 5 Specimen Performing Laboratory Urine [facility] [address] [place] [address] * URINALYSIS DIPSTICK REFLEX TO CULTURE (01/05/2017 1:11 PM) Component Value Ref Range Color,UA YELLOW Turbidity,UA 1+ (A) CLEAR-CLEAR Specific [place]-Urine 1.021 1.003 - 1.035 pH,UA 6.0 5.0 [...] result. Specimen Performing Laboratory Urine MAIN LAB [address] [place] [address] 63634 * POC GLUCOSE (01/05/2017 12:21 PM) Component Value Ref Range Glucose, POC 319 (H) 70 - 100 MG/DL Specimen Performing Laboratory MAIN LAB [address] [place] [address] 67145 * POC GLUCOSE (01/05/2017 8:19 AM) Component Value Ref Range Glucose, POC 170 (H) 70 - 100 MG/DL Specimen Performing Laboratory MAIN LAB [address] [place] [address]01 * PHOSPHORUS (01/05/2017 5:35 AM) Component Value Ref Range Phosphorus 3.7 2.0 - 4.0 MG/DL Specimen Performing Laboratory Blood MAIN LAB [address] [place] [address] * MAGNESIUM (01/05/2017 5:35 AM) Component Value Ref Range Magnesium 2.6 1.6 - 2.6 mg/dL Specimen Performing Laboratory Blood MAIN LAB [address] [place] [address] * CBC AND DIFF (01/05/2017 5:35 AM) [...] Specimen Performing Laboratory Blood MAIN LAB [address] [place] [address] * BASIC METABOLIC PANEL (01/05/2017 5:35 AM) [...] questions. Specimen Performing Laboratory Blood MAIN LAB [address] [place] [address] * IONIZED CALCIUM (01/05/2017 4:00 AM) Component Value Ref Range Ionized Calcium 1.20 1.0 - 1.3 MMOL/L Specimen Performing Laboratory Blood [facility] [address] [place] [address] 18683 * POC GLUCOSE (01/05/2017 3:43 AM) Component Value Ref Range Glucose, POC 256 (H) 70 - 100 MG/DL Specimen Performing Laboratory [facility] [address] [place] [address] * POC GLUCOSE (01/04/2017 8:23 PM) Component Value Ref Range Glucose, POC 224 (H) 70 - 100 MG/DL Specimen Performing Laboratory [facility] [address] [place], [place] [id number] * POC GLUCOSE (01/04/2017 4:35 PM) Component Value Ref Range Glucose, POC 241 (H) 70 - 100 MG/DL Specimen Performing Laboratory [facility] [address] [place] [address] * POC GLUCOSE (01/04/2017 12:44 PM) Component Value Ref Range Glucose, POC 272 (H) 70 - 100 MG/DL Specimen Performing Laboratory [facility] [address] [place] [address] * POC GLUCOSE (01/04/2017 7:55 AM) Component Value Ref Range Glucose, POC 241 (H) 70 - 100 MG/DL Specimen Performing Laboratory [facility] [address] [place] [address] * PHOSPHORUS (01/04/2017 4:52 AM) Component Value Ref Range Phosphorus 3.8 2.0 - 4.0 MG/DL Specimen Performing Laboratory Blood [facility] [address] [place] [address] * MAGNESIUM (01/04/2017 4:52 AM) Component Value Ref Range Magnesium 2.6 1.6 - 2.6 mg/dL Specimen Performing Laboratory Blood [facility] MAIN LAB [address] [place] [address] * IONIZED CALCIUM (01/04/2017 4:52 AM) Component Value Ref Range Ionized Calcium 1.20 1.0 - 1.3 MMOL/L Specimen Performing Laboratory Blood MAIN LAB [address] [place] [address] * CBC AND DIFF (01/04/2017 4:52 AM) [...] Specimen Performing Laboratory Blood MAIN LAB [address] [place] [address] * BASIC METABOLIC PANEL (01/04/2017 4:52 AM) [...] Pharmacist for questions. Specimen Performing Laboratory Blood [facility] [address] [place] [address] * POC GLUCOSE (01/04/2017 4:09 AM) Component Value Ref Range Glucose, POC 194 (H) 70 - 100 MG/DL Specimen Performing Laboratory [facility] [address] [place] [address] 28577 * POC GLUCOSE (01/03/2017 8:39 PM) Component Value Ref Range Glucose, POC 124 (H) 70 - 100 MG/DL Specimen Performing Laboratory [facility] [address] [place] [address]12 * POC GLUCOSE (01/03/2017 4:53 PM) Component Value Ref Range Glucose, POC 142 (H) 70 - 100 MG/DL Specimen Performing Laboratory [facility] [address] [place] [address] * POC GLUCOSE (01/03/2017 12:22 PM) Component Value Ref Range Glucose, POC 139 (H) 70 - 100 MG/DL Specimen Performing Laboratory [facility] [address] [place] [address] * IONIZED CALCIUM (01/03/2017 9:48 AM) Component Value Ref Range Ionized Calcium 1.18 1.0 - 1.3 MMOL/L Specimen Performing Laboratory [facility] [address] [place] [address] * PHOSPHORUS (01/03/2017 9:33 AM) Component Value Ref Range Phosphorus 5.0 (H) 2.0 - 4.0 MG/DL Specimen Performing Laboratory Blood [facility] [address] [place] [address] * MAGNESIUM (01/03/2017 9:33 AM) Component Value Ref Range Magnesium 2.8 (H) 1.6 - 2.6 mg/dL Specimen Performing Laboratory Blood [facility] [address] [place], [place] [phone] * CBC AND DIFF (01/03/2017 9:33 AM) [...] Specimen Performing Laboratory Blood MAIN LAB [address] [place] [address] * BASIC METABOLIC PANEL (01/03/2017 9:33 AM) [...] Specimen Performing Laboratory Blood MAIN LAB [address] [place] [address] * POC GLUCOSE (01/03/2017 8:32 AM) Component Value Ref Range Glucose, POC 133 (H) 70 - 100 MG/DL Specimen Performing Laboratory [facility] MAIN LAB [address] [place] [address]67 * POC GLUCOSE (01/02/2017 9:10 PM) Component Value Ref Range Glucose, POC 116 (H) 70 - 100 MG/DL Specimen Performing Laboratory [facility] [address] [place] [address]87 * POC GLUCOSE (01/02/2017 4:44 PM) Component Value Ref Range Glucose, POC 137 (H) 70 - 100 MG/DL Specimen Performing Laboratory [facility] [address] [place] [address]99 * POC GLUCOSE (01/02/2017 11:36 AM) Component Value Ref Range Glucose, POC 197 (H) 70 - 100 MG/DL Specimen Performing Laboratory [facility] [address] [place] [address] 48786 * POC GLUCOSE (01/02/2017 8:53 AM) Component Value Ref Range Glucose, POC 146 (H) 70 - 100 MG/DL Specimen Performing Laboratory [facility] [address] [place] [address] * IONIZED CALCIUM (01/02/2017 5:00 AM) Component Value Ref Range Ionized Calcium 0.99 (L)Comment: CHECKED 1.0 - 1.3 MMOL/L Specimen Performing Laboratory Blood [facility] [address] [place] [address] * PHOSPHORUS (01/02/2017 4:59 AM) Component Value Ref Range Phosphorus 4.5 (H) 2.0 - 4.0 MG/DL Specimen Performing Laboratory Blood [facility] [address] [place], [place] [phone] * MAGNESIUM (01/02/2017 4:59 AM) Component Value Ref Range Magnesium 2.7 (H) 1.6 - 2.6 mg/dL Specimen Performing Laboratory Blood [facility] [address] [place], [place] [phone] * CBC AND DIFF (01/02/2017 4:59 AM) [...] K/UL Specimen Performing Laboratory Blood MAIN LAB [address] [place] [address] * BASIC METABOLIC PANEL (01/02/2017 4:59 AM) [...] Specimen Performing Laboratory Blood MAIN LAB [address] [place] [address] * POC GLUCOSE (01/01/2017 8:32 PM) Component Value Ref Range Glucose, POC 182 (H) 70 - 100 MG/DL Specimen Performing Laboratory MAIN LAB [address] [place] [address] * POC GLUCOSE (01/01/2017 5:49 PM) Component Value Ref Range Glucose, POC 221 (H) 70 - 100 MG/DL Specimen Performing Laboratory MAIN LAB [address] [place] [address] * POC GLUCOSE (01/01/2017 12:02 PM) Component Value Ref Range Glucose, POC 189 (H) 70 - 100 MG/DL Specimen Performing Laboratory MAIN LAB [address] [place] [address] 09150 * POC GLUCOSE (01/01/2017 8:06 AM) Component Value Ref Range Glucose, POC 231 (H) 70 - 100 MG/DL Specimen Performing Laboratory MAIN LAB [address] [place] [address] 32453 * PHOSPHORUS (01/01/2017 5:07 AM) Component Value Ref Range Phosphorus 3.5 2.0 - 4.0 MG/DL Specimen Performing Laboratory Blood MAIN LAB [address] [place] [address] 41823 * MAGNESIUM (01/01/2017 5:07 AM) Component Value Ref Range Magnesium 2.6 1.6 - 2.6 mg/dL Specimen Performing Laboratory Blood MAIN LAB [address] [place] [address] 86864 * IONIZED CALCIUM (01/01/2017 5:07 AM) Component Value Ref Range Ionized Calcium 1.15 1.0 - 1.3 MMOL/L Specimen Performing Laboratory Blood MAIN LAB [address] [place] [address] 70595 * CBC AND DIFF (01/01/2017 5:07 AM) [...] K/UL Specimen Performing Laboratory Blood MAIN LAB [address] [place] [address] 15333 * BASIC METABOLIC PANEL (01/01/2017 5:07 AM) [...] questions. Specimen Performing Laboratory Blood MAIN LAB [address] [place] [address] 17398 * POC GLUCOSE (01/01/2017 4:00 AM) Component Value Ref Range Glucose, POC 191 (H) 70 - 100 MG/DL Specimen Performing Laboratory [facility] [address] [place] [address] 72232 * POC GLUCOSE (12/31/2016 8:29 PM) Component Value Ref Range Glucose, POC 132 (H) 70 - 100 MG/DL Specimen Performing Laboratory MAIN LAB [address] [place] [address] 59070 * POC GLUCOSE (12/31/2016 5:21 PM) Component Value Ref Range Glucose, POC 149 (H) 70 - 100 MG/DL Specimen Performing Laboratory MAIN LAB [address] [place] [address] 60690 * POC GLUCOSE (12/31/2016 1:11 PM) Component Value Ref Range Glucose, POC 162 (H) 70 - 100 MG/DL Specimen Performing Laboratory MAIN LAB [address] [place] [address] 86464 * POC GLUCOSE (12/31/2016 8:53 AM) Component Value Ref Range Glucose, POC 134 (H) 70 - 100 MG/DL Specimen Performing Laboratory MAIN LAB [address] [place] [address] 12772 * PHOSPHORUS (12/31/2016 5:25 AM) Component Value Ref Range Phosphorus 3.5 2.0 - 4.0 MG/DL Specimen Performing Laboratory Blood MAIN LAB [address] [place] [address] 05404 * MAGNESIUM (12/31/2016 5:25 AM) Component Value Ref Range Magnesium 2.3 1.6 - 2.6 mg/dL Specimen Performing Laboratory Blood MAIN LAB [address] [place] [address] 80670 * IONIZED CALCIUM (12/31/2016 5:25 AM) Component Value Ref Range Ionized Calcium 1.12 1.0 - 1.3 MMOL/L Specimen Performing Laboratory Blood MAIN LAB [address] [place] [address] 64584 * CBC AND DIFF (12/31/2016 5:25 AM) [...] K/UL Specimen Performing Laboratory Blood MAIN LAB [address] [place] [address] 09515 * BASIC METABOLIC PANEL (12/31/2016 5:25 AM) [...] questions. Specimen Performing Laboratory Blood MAIN LAB [address] [place] [address] 65495 * POC GLUCOSE (12/31/2016 4:11 AM) Component Value Ref Range Glucose, POC 121 (H) 70 - 100 MG/DL Specimen Performing Laboratory MAIN LAB [address] [place] [address] 46831 * POC GLUCOSE (12/30/2016 8:41 PM) Component Value Ref Range Glucose, POC 151 (H) 70 - 100 MG/DL Specimen Performing Laboratory MAIN LAB [address] [place] [address] 16709 * POC GLUCOSE (12/30/2016 5:43 PM) Component Value Ref Range Glucose, POC 159 (H) 70 - 100 MG/DL Specimen Performing Laboratory MAIN LAB [address] [place] [address] 67533 * US DOPPLER VENOUS BILATERAL (12/30/2016 1:20 [...] MG/DL Specimen Performing Laboratory MAIN LAB [address] [place] [address] * POC GLUCOSE (12/30/2016 7:51 AM) Component Value Ref Range Glucose, POC 143 (H) 70 - 100 MG/DL Specimen Performing Laboratory MAIN LAB [address] [place] [address] * IONIZED CALCIUM (12/30/2016 3:37 AM) Component Value Ref Range Ionized Calcium 1.01 1.0 - 1.3 MMOL/L Specimen Performing Laboratory Blood MAIN LAB [address] [place] [address] * PHOSPHORUS (12/30/2016 3:37 AM) Component Value Ref Range Phosphorus 4.3 (H) 2.0 - 4.0 MG/DL Specimen Performing Laboratory Blood MAIN LAB [address] [place] [address] * MAGNESIUM (12/30/2016 3:37 AM) Component Value Ref Range Magnesium 2.2 1.6 - 2.6 mg/dL Specimen Performing Laboratory Blood MAIN LAB [address] [place] [address] * CBC AND DIFF (12/30/2016 3:37 AM) [...] Specimen Performing Laboratory Blood MAIN LAB [address] [place] [address] * BASIC METABOLIC PANEL (12/30/2016 3:37 AM) [...] questions. Specimen Performing Laboratory Blood MAIN LAB [address] [place] [address] 17272 * POC GLUCOSE (12/30/2016 3:27 AM) Component Value Ref Range Glucose, POC 196 (H) 70 - 100 MG/DL Specimen Performing Laboratory MAIN LAB [address] [place] [address] 70504 * POC GLUCOSE (12/29/2016 8:38 PM) Component Value Ref Range Glucose, POC 148 (H) 70 - 100 MG/DL Specimen Performing Laboratory MAIN LAB [address] [place] [address] 38403 * POC GLUCOSE (12/29/2016 5:25 PM) Component Value Ref Range Glucose, POC 165 (H) 70 - 100 MG/DL Specimen Performing Laboratory MAIN LAB [address] [place] [address] 96991 * SODIUM (12/29/2016 4:55 PM) Component Value Ref Range Sodium 142 137 - 147 MMOL/L Specimen Performing Laboratory Blood MAIN LAB [address] [place] [address] 43351 * POC GLUCOSE (12/29/2016 12:04 PM) Component Value Ref Range Glucose, POC 109 (H) 70 - 100 MG/DL Specimen Performing Laboratory MAIN LAB [address] [place] [address]169 * IR ARTERIOGRAM NEURO (12/29/2016 11:09 AM) [...] recurrent hemorrhage in the left frontal region. TRANSLATOR. Laurent MATERIAL EXPEDITER. 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 Local with Sedation PROCEDURE. Ultrasound [...] insure maintain an air free system. A 5-Greenlandic diagnostic catheter was introduced through the sheath. Utilizing a combination of roadmap, guidewire and direct catheter access techniques, a 5 Green[place]ic diagnostic catheter was used to perform diagnostic [...] recurrent hemorrhage in the left frontal region. TRANSLATOR. Laurent MATERIAL EXPEDITER. 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 Local with Sedation PROCEDURE. Ultrasound [...] insure maintain an air free system. A 5-Greenlandic diagnostic catheter was introduced through the sheath. Utilizing a combination of roadmap, guidewire and direct catheter access techniques, a 5 Green[place]ic diagnostic catheter was used to perform diagnostic [...] 100 MG/DL Specimen Performing Laboratory MAIN LAB [address] [place], [place] [id number] * IONIZED CALCIUM (12/29/2016 4:23 AM) Component Value Ref Range Ionized Calcium 1.11 1.0 - 1.3 MMOL/L Specimen Performing Laboratory Blood MAIN LAB [address] [place], [place] [phone] * PHOSPHORUS (12/29/2016 4:23 AM) Component Value Ref Range Phosphorus 3.5 2.0 - 4.0 MG/DL Specimen Performing Laboratory Blood MAIN LAB [address] [place], [place] [id number] * MAGNESIUM (12/29/2016 4:23 AM) Component Value Ref Range Magnesium 2.2 1.6 - 2.6 mg/dL Specimen Performing Laboratory Blood MAIN LAB [address] [place] [address] * CBC AND DIFF (12/29/2016 4:23 AM) [...] K/UL Specimen Performing Laboratory Blood MAIN LAB [address] [place] [address] * BASIC METABOLIC PANEL (12/29/2016 4:23 AM) [...] questions. Specimen Performing Laboratory Blood MAIN LAB [address] [place], [place] [id number] * POC GLUCOSE (12/29/2016 4:08 AM) Component Value Ref Range Glucose, POC 145 (H) 70 - 100 MG/DL Specimen Performing Laboratory MAIN LAB [address] [place] [address] * SODIUM (12/28/2016 9:53 PM) Component Value Ref Range Sodium 147 137 - 147 MMOL/L Specimen Performing Laboratory Blood MAIN LAB [address] [place] [address] 97[address] * POC GLUCOSE (12/28/2016 8:30 PM) Component Value Ref Range Glucose, POC 134 (H) 70 - 100 MG/DL Specimen Performing Laboratory MAIN LAB [address] [place], [place] [id number] * MRI HEAD WO/W CONTRAST (12/28/2016 7:15 [...] 100 MG/DL Specimen Performing Laboratory MAIN LAB [address] [place] [address] * SODIUM (12/28/2016 4:18 PM) Component Value Ref Range Sodium 152 (H) 137 - 147 MMOL/L Specimen Performing Laboratory Blood MAIN LAB [address] [place] [address] 5[address] * MAGNESIUM (12/28/2016 1:09 PM) Component Value Ref Range Magnesium 2.2 1.6 - 2.6 mg/dL Specimen Performing Laboratory Blood MAIN LAB [address] [place] [address] 68[address] * POTASSIUM (12/28/2016 1:09 PM) Component Value Ref Range Potassium 4.1 3.5 - 5.1 MMOL/L Specimen Performing Laboratory Blood MAIN LAB [address] [place] [address] * POC GLUCOSE (12/28/2016 12:22 PM) Component Value Ref Range Glucose, POC 141 (H) 70 - 100 MG/DL Specimen Performing Laboratory MAIN LAB [address] [place] [address] 44008 * CTA NECK WO/W CONTRAST+POST P (12/28/2016 [...] the pharynx. Visualized major branches of the jackson of Mcpherson are patent without evidence of [...] the pharynx. Visualized major branches of the jackson of Mcpherson are patent without evidence of [...] - 5.1 MMOL/L Specimen Performing Laboratory Blood [facility] [address] [place] [address] 48088 * SODIUM (12/28/2016 9:53 AM) Component Value Ref Range Sodium 142 137 - 147 MMOL/L Specimen Performing Laboratory Blood [facility] [address] [place] [address] * POC GLUCOSE (12/28/2016 9:04 AM) Component Value Ref Range Glucose, POC 170 (H) 70 - 100 MG/DL Specimen Performing Laboratory [facility] [address] [place] [address] * POC GLUCOSE (12/28/2016 4:02 AM) Component Value Ref Range Glucose, POC 159 (H) 70 - 100 MG/DL Specimen Performing Laboratory [facility] [address] [place], [place] [id number] * IONIZED CALCIUM (12/28/2016 3:35 AM) Component Value Ref Range Ionized Calcium 1.09 1.0 - 1.3 MMOL/L Specimen Performing Laboratory Blood [facility] [address] [place], [place] [id number] * PHOSPHORUS (12/28/2016 3:35 AM) Component Value Ref Range Phosphorus 3.7 2.0 - 4.0 MG/DL Specimen Performing Laboratory Blood [facility] [address] [place], [place] [id number] * MAGNESIUM (12/28/2016 3:35 AM) Component Value Ref Range Magnesium 1.9 1.6 - 2.6 mg/dL Specimen Performing Laboratory Blood [facility] [address] [place], [place] [id number] * CBC AND DIFF (12/28/2016 3:35 AM) [...] K/UL Specimen Performing Laboratory Blood MAIN LAB [address] [place] [address] * BASIC METABOLIC PANEL (12/28/2016 3:35 AM) [...] questions. Specimen Performing Laboratory Blood MAIN LAB [address] [place] [address] 92514 * SODIUM (12/27/2016 11:04 PM) Component Value Ref Range Sodium 142 137 - 147 MMOL/L Specimen Performing Laboratory Blood MAIN LAB [address] [place] [address] * PROCALCITONIN (12/27/2016 11:04 PM) Component Value Ref Range Procalcitonin <0.05 <0.10 NG/ML Specimen Performing Laboratory Blood MAIN LAB [address] [place] [address] 31809 * POC GLUCOSE (12/27/2016 9:00 PM) Component Value Ref Range Glucose, POC 151 (H) 70 - 100 MG/DL Specimen Performing Laboratory MAIN LAB [address] [place] [address] 564[address] * POC GLUCOSE (12/27/2016 5:53 PM) Component Value Ref Range Glucose, POC 135 (H) 70 - 100 MG/DL Specimen Performing Laboratory [facility] [address] [place] [address] * SODIUM (12/27/2016 4:39 PM) Component Value Ref Range Sodium 145 137 - 147 MMOL/L Specimen Performing Laboratory Blood [facility] [address] [place] [address] * PROCALCITONIN (12/27/2016 10:43 AM) Component Value Ref Range Procalcitonin <0.05 <0.10 NG/ML Specimen Performing Laboratory Blood [facility] [address] [place] [address] * SODIUM (12/27/2016 10:43 AM) Component Value Ref Range Sodium 148 (H) 137 - 147 MMOL/L Specimen Performing Laboratory Blood MAIN LAB [address] [place] [address] * CT HEAD WO CONTRAST (12/27/2016 10:12 [...] Performing Laboratory Blood [facility] [address] [place] [address] * PHOSPHORUS (12/27/2016 3:56 AM) Component Value Ref Range Phosphorus 1.6 (L) 2.0 - 4.0 MG/DL Specimen Performing Laboratory Blood MAIN LAB [address] [place] [address] * MAGNESIUM (12/27/2016 3:56 AM) Component Value Ref Range Magnesium 1.9 1.6 - 2.6 mg/dL Specimen Performing Laboratory Blood MAIN LAB [address] [place] [address] * CBC AND DIFF (12/27/2016 3:56 AM) [...] Specimen Performing Laboratory Blood MAIN [facility] [address] [place] [address] * BASIC METABOLIC PANEL (12/27/2016 3:56 AM) [...] Performing Laboratory Blood [facility] [address] [place] [address] * POTASSIUM (12/26/2016 9:58 PM) Component Value Ref Range Potassium 4.3 3.5 - 5.1 MMOL/L Specimen Performing Laboratory Blood [facility] [address] [place] [address] 40726 * SODIUM (12/26/2016 9:58 PM) Component Value Ref Range Sodium 154 (H) 137 - 147 MMOL/L Specimen Performing Laboratory Blood [facility] [address] [place] [address] * POTASSIUM (12/26/2016 4:11 PM) Component Value Ref Range Potassium 3.4 (L) 3.5 - 5.1 MMOL/L Specimen Performing Laboratory Blood [facility] [address] [place] [address] 76139 * SODIUM (12/26/2016 4:11 PM) Component Value Ref Range Sodium 156 (H) 137 - 147 MMOL/L Specimen Performing Laboratory Blood [facility] [address] [place] [address] 16953 * CHEST SINGLE VIEW (12/26/2016 2:22 PM) [...] hemidiaphragm with the tip not in the zzdxe-op-bcmb. Heart size and pulmonary vasculature are within normal limits. No consolidation, pleural effusion, or pneumothorax. ACDF is noted. Partially visualized posterior spinal fixation hardware. Procedure Note Interface, Radiant Results - 12/26/2016 4:44 PM CDT CHEST SINGLE VIEW History: fever. Comparison: Chest radiograph from December 24, 2016. Findings: Enteric tube is in place coursing below the left hemidiaphragm with the tip not in the xurcr-fa-ngha. Heart size and pulmonary vasculature are within [...] Specimen Performing Laboratory Urine MAIN LAB [address] [place] [address] * URINALYSIS MICROSCOPIC REFLEX TO CULTURE (12/26/2016 12:37 PM) Component Value Ref Range WBCs,UA 0-2 0 - 2 /HPF RBCs,UA 2-10 0 - 3 /HPF Comment,UA Urine submitted for reflex culture if criteria are met:WBC>10, positive nitrite and/or >=1+ leukocyte esterase. If quantity is not sufficient, an addendum will follow. MucousUA TRACE Specimen Performing Laboratory Urine MAIN LAB [address] [place] [address] * URINALYSIS DIPSTICK REFLEX TO CULTURE (12/26/2016 12:37 PM) Component Value Ref Range Color,UA YELLOW Turbidity,UA CLEAR CLEAR-CLEAR Specific [place]-Urine 1.017 1.003 - 1.035 pH,UA 8.0 5.0 - 8.0 Protein,UA 1+ (A) NEG-NEG Glucose,UA NEG NEG-NEG Ketones,UA NEG NEG-NEG Bilirubin,UA NEG NEG-NEG Blood,UA 1+ (A) NEG-NEG Urobilinogen,UA NORMAL NORM-NORMAL Nitrite,UA NEG NEG-NEG Leukocytes,UA NEG NEG-NEG Urine Ascorbic Acid, UA NEG NEG-NEG Specimen Performing Laboratory Urine MAIN LAB [address] [place] [address] 9[address]49 * CULTURE-BLOOD W/SENSITIVITY (12/26/2016 12:37 PM) Component [...] 01/01/2017 Specimen Performing Laboratory Blood MAIN LAB [address] [place] [address] * CULTURE-BLOOD W/SENSITIVITY (12/26/2016 12:37 PM) Component Value Ref Range Battery Name BLOOD CULTURE Specimen Description BLOOD LEFT ANTECUBITAL Special Requests NONE Culture NO GROWTH 5 DAYS Report Status FINAL 01/01/2017 Specimen Performing Laboratory Blood [facility] [address] [place] [address] * POTASSIUM (12/26/2016 10:30 AM) Component Value Ref Range Potassium 3.4 (L) 3.5 - 5.1 MMOL/L Specimen Performing Laboratory Blood MAIN LAB [address] [place] [address] 63670 * SODIUM (12/26/2016 10:30 AM) Component Value Ref Range Sodium 152 (H) 137 - 147 MMOL/L Specimen Performing Laboratory Blood MAIN LAB [address] [place] [address] * IONIZED CALCIUM (12/26/2016 4:16 AM) Component Value Ref Range Ionized Calcium 1.07 1.0 - 1.3 MMOL/L Specimen Performing Laboratory Blood MAIN LAB [address] [place] [address] 269[address] * PHOSPHORUS (12/26/2016 4:16 AM) Component Value Ref Range Phosphorus 2.6 2.0 - 4.0 MG/DL Specimen Performing Laboratory Blood MAIN LAB [address] [place] [address] * MAGNESIUM (12/26/2016 4:16 AM) Component Value Ref Range Magnesium 2.2 1.6 - 2.6 mg/dL Specimen Performing Laboratory Blood MAIN LAB [address] [place], [place] [phone] * CBC AND DIFF (12/26/2016 4:16 AM) [...] Specimen Performing Laboratory Blood MAIN LAB [address] [place] [address] * BASIC METABOLIC PANEL (12/26/2016 4:16 AM) [...] Specimen Performing Laboratory Blood MAIN LAB [address] [place] [address] * SODIUM (12/25/2016 10:25 PM) Component Value Ref Range Sodium 151 (H) 137 - 147 MMOL/L Specimen Performing Laboratory Blood [facility] [address] [place] [address] * SODIUM (12/25/2016 4:36 PM) Component Value Ref Range Sodium 151 (H) 137 - 147 MMOL/L Specimen Performing Laboratory Blood [facility] [address] [place] [address] * CT HEAD WO CONTRAST (12/25/2016 2:21 [...] 0.05 NG/ML Specimen Performing Laboratory MAIN LAB [address] [place] [address] 9[address]46 * POTASSIUM (12/25/2016 10:52 AM) Component Value Ref Range Potassium 4.0 3.5 - 5.1 MMOL/L Specimen Performing Laboratory Blood [facility] [address] [place] [address] 52369 * SODIUM (12/25/2016 10:52 AM) Component Value Ref Range Sodium 152 (H) 137 - 147 MMOL/L Specimen Performing Laboratory Blood MAIN LAB [address] [place] [address] 38557 * IONIZED CALCIUM (12/25/2016 3:35 AM) Component Value Ref Range Ionized Calcium 1.09 1.0 - 1.3 MMOL/L Specimen Performing Laboratory Blood MAIN LAB [address] [place] [address] 39[address] * PHOSPHORUS (12/25/2016 3:35 AM) Component Value Ref Range Phosphorus 2.4 2.0 - 4.0 MG/DL Specimen Performing Laboratory Blood MAIN LAB [address] [place] [address] 91160 * MAGNESIUM (12/25/2016 3:35 AM) Component Value Ref Range Magnesium 2.2 1.6 - 2.6 mg/dL Specimen Performing Laboratory Blood MAIN LAB [address] [place] [address] * CBC AND DIFF (12/25/2016 3:35 AM) [...] Performing Laboratory Blood [facility]IN [facility] [address] [place] [address] * BASIC METABOLIC PANEL (12/25/2016 3:35 AM) [...] Performing Laboratory Blood [facility] [address] [place] [address] * SODIUM (12/24/2016 10:00 PM) Component Value Ref Range Sodium 144 137 - 147 MMOL/L Specimen Performing Laboratory Blood [facility] [address] [place] [address] * BLOOD GASES, ARTERIAL (12/24/2016 5:44 PM) Component Value Ref Range pH-Arterial 7.42 7.35 - 7.45 pCO2-Arterial 37 35 - 45 MMHG pO2-Arterial 165 (H) 80 - 100 MMHG Base Deficit-Arterial 0.0 MMOL/L O2 Sat-Arterial 99.6 (H) 95 - 99 % Gnftrawprou-IAN-Nfp 24.4 21 - 28 MMOL/L Specimen Performing Laboratory Blood, arterial - Blood [facility] [address] [place] [address] * SODIUM (12/24/2016 5:05 PM) Component Value Ref Range Sodium 145 137 - 147 MMOL/L Specimen Performing Laboratory Blood [facility] [address] [place] [address] * CT HEAD WO CONTRAST (12/24/2016 4:33 [...] There is improved intracranial mass effect and gvqh-mq-mzxbb frontal midline shift now measuring 9 mm. [...] There is improved intracranial mass effect and vduj-cx-mlzzn frontal midline shift now measuring 9 mm. [...] Stool - Feces [facility] [address] [place] [address] * PLAVIX RESISTANCE (PLATELETWORKS) (12/24/2016 1:35 PM) Component Value Ref Range Platelet Inhibition 40 (H) 0 - 15 % Comment: Normal ADP inhibition should be less than 15%. Therapeutic (Plavix and other P2Y 12) levels should be greater than 30%. Specimen Performing Laboratory Blood [facility] [address] [place] [address] * SODIUM (12/24/2016 11:40 AM) Component Value Ref Range Sodium 147 137 - 147 MMOL/L Specimen Performing Laboratory Blood [facility]IN [facility] [address] [place] [address] * CHEST SINGLE VIEW (12/24/2016 4:35 AM) [...] MMOL/L Specimen Performing Laboratory Blood MAIN LAB [address] [place] [address] 0[address]22 * PHOSPHORUS (12/24/2016 4:00 AM) Component Value Ref Range Phosphorus 2.3 2.0 - 4.0 MG/DL Specimen Performing Laboratory Blood MAIN LAB [address] [place] [address] 90514 * MAGNESIUM (12/24/2016 4:00 AM) Component Value Ref Range Magnesium 2.2 1.6 - 2.6 mg/dL Specimen Performing Laboratory Blood MAIN LAB [address] [place] [address] * CBC AND DIFF (12/24/2016 4:00 AM) [...] K/UL Specimen Performing Laboratory Blood MAIN LAB [address] [place] [address] 9[address]59 * BASIC METABOLIC PANEL (12/24/2016 4:00 AM) [...] Performing Laboratory Blood [facility] [address] [place] [address] * CT HEAD WO CONTRAST (12/24/2016 3:29 [...] significant change in left-sided transalar herniation and czzc-na-fqyws midline shift, measuring approximately 1.1 cm. There [...] significant change in left-sided transalar herniation and ukej-hz-jmfuc midline shift, measuring approximately 1.1 cm. There [...] Specimen Performing Laboratory Blood MAIN LAB [address] [place] [address] * SODIUM (12/23/2016 9:43 PM) Component Value Ref Range Sodium 142 137 - 147 MMOL/L Specimen Performing Laboratory Blood MAIN LAB [address] [place] [address] * TYPE & CROSSMATCH (12/23/2016 8:56 PM) Component Value Ref Range Units Ordered 2 Crossmatch Expires 12/26/2016 Record Check 2ND TYPE REQUIRED ABO/RH(D) A POS Antibody Screen NEG Specimen Performing Laboratory Blood MAIN LAB [address] [place] [address] * BLOOD GASES, ARTERIAL (12/23/2016 8:00 PM) Component Value Ref Range pH-Arterial 7.46 (H) 7.35 - 7.45 pCO2-Arterial 33 (L) 35 - 45 MMHG pO2-Arterial 75 (L) 80 - 100 MMHG Base Excess-Arterial 0.2 MMOL/L O2 Sat-Arterial 95.9 95 - 99 % Pxxknlsjeft-NCP-Tbv 24.6 21 - 28 MMOL/L Specimen Performing Laboratory Blood, arterial - Blood MAIN LAB [address] [place] [address] 11480 * POTASSIUM (12/23/2016 6:14 PM) Component Value Ref Range Potassium 4.4 3.5 - 5.1 MMOL/L Specimen Performing Laboratory Blood MAIN LAB [address] [place] [address] 56523 * SODIUM (12/23/2016 4:05 PM) Component Value Ref Range Sodium 142 137 - 147 MMOL/L Specimen Performing Laboratory MAIN LAB [address] [place] [address]150 * PLATELET FUNCTION-PFA (12/23/2016 2:53 PM) Component [...] in this report. Specimen Performing Laboratory Blood [facility] [address] [place] [address] * LIPID PROFILE (12/23/2016 1:43 PM) Component [...] Specimen Performing Laboratory [facility] [address] [place] [address] * POTASSIUM (12/23/2016 1:43 PM) Component Value Ref Range Potassium 3.8 3.5 - 5.1 MMOL/L Specimen Performing Laboratory Blood [facility] [address] [place] [address] * MAGNESIUM (12/23/2016 1:43 PM) Component Value Ref Range Magnesium 2.4 1.6 - 2.6 mg/dL Specimen Performing Laboratory Blood [facility] [address] [place] [address] * SODIUM (12/23/2016 1:43 PM) Component Value Ref Range Sodium 142 137 - 147 MMOL/L Specimen Performing Laboratory Blood [facility] [address] [place] [address] * CT HEAD WO CONTRAST (12/23/2016 11:10 AM) Specimen Performing Laboratory [facility] RAD RESULTS Impressions 1.No significant change in size of the large left frontal mixed density hemorrhage with interval extension into the left lateral ventricle. 2.Slight decrease in mrnd-kl-jrhmt midline shift. 3.Interval increase in size of [...] examination. There is been slight improvement in qxgu-mr-hzlwh midline shift, now measuring 10 mm compared [...] examination. There is been slight improvement in alph-zh-bmmvz midline shift, now measuring 10 mm compared to 13 mm previously. The basal cisterns are patent. There are no destructive osseous lesions. The perinasal sinuses and mastoid air cells are clear. IMPRESSION 1. No significant change in size of the large left frontal mixed density hemorrhage with interval extension into the left lateral ventricle. 2. Slight decrease in ngsj-kk-lafex midline shift. 3. Interval increase in size [...] MMOL/L Specimen Performing Laboratory Blood MAIN LAB [address] [place], [place] [id number] * POTASSIUM (12/23/2016 8:16 AM) Component Value Ref Range Potassium 3.9 3.5 - 5.1 MMOL/L Specimen Performing Laboratory Blood MAIN LAB [address] [place] [address]58 * BLOOD GASES, ARTERIAL (12/23/2016 7:37 AM) Component Value Ref Range pH-Arterial 7.48 (H) 7.35 - 7.45 pCO2-Arterial 33 (L) 35 - 45 MMHG pO2-Arterial 71 (L) 80 - 100 MMHG Base Excess-Arterial 1.3 MMOL/L O2 Sat-Arterial 95.2 95 - 99 % Xoymqjnsrfb-QRI-Rle 25.5 21 - 28 MMOL/L Specimen Performing Laboratory Blood, arterial - Blood MAIN LAB [address] [place] [address] * IONIZED CALCIUM (12/23/2016 4:30 AM) Component Value Ref Range Ionized Calcium 1.11 1.0 - 1.3 MMOL/L Specimen Performing Laboratory Blood MAIN LAB [address] [place] [address]807 * PHOSPHORUS (12/23/2016 4:30 AM) Component Value Ref Range Phosphorus 3.6 2.0 - 4.0 MG/DL Specimen Performing Laboratory Blood MAIN LAB [address] [place] [address] 27084 * MAGNESIUM (12/23/2016 4:30 AM) Component Value Ref Range Magnesium 1.8 1.6 - 2.6 mg/dL Specimen Performing Laboratory Blood MAIN LAB [address] [place], [place] [id number] * CBC AND DIFF (12/23/2016 4:30 AM) [...] Specimen Performing Laboratory Blood MAIN LAB [address] [place] [address] * BASIC METABOLIC PANEL (12/23/2016 4:30 AM) [...] Specimen Performing Laboratory Blood MAIN LAB [address] [place] [address] * HEMOGLOBIN A1C (12/23/2016 4:30 AM) Component Value Ref Range Hemoglobin A1C 5.2 4.0 - 6.0 % Comment: The ADA recommends that most patients with type 1 and type 2 diabetes maintain an A1c level <7%. Specimen Performing Laboratory Blood MAIN LAB [address] [place] [address] * BASIC METABOLIC PANEL (12/22/2016 11:14 PM) [...] Performing Laboratory Blood [facility]IN [facility] [address] [place] [address] * CT HEAD WO CONTRAST (12/22/2016 7:56 [...] There is continued localized mass effect and vtrs-rx-kyqsn frontal midline shift and transalar herniation. The [...] There is continued localized mass effect and gskp-tj-gysmw frontal midline shift and transalar herniation. The [...] an existing cavity. 3.Continued mass effect and asih-jt-iyytg midline shift, difficult to quantify due to [...] changed. There is continued mass effect and jywq-so-yrcve midline shift. The degree of midline shift [...] changed. There is continued mass effect and hxfi-cb-rhyyc midline shift. The degree of midline shift [...] existing cavity. 3. Continued mass effect and zlpg-cw-mlhof midline shift, difficult to quantify due to [...] questions. Specimen Performing Laboratory Blood MAIN LAB [address] [place] [address] * PTT (APTT) (12/22/2016 1:45 PM) Component Value Ref Range APTT 23.7 (L) 24.0 - 40.0 SEC Specimen Performing Laboratory Blood MAIN LAB [address] [place] [address] * PROTIME INR (PT) (12/22/2016 1:45 PM) Component Value Ref Range INR 1.0 0.8 - 1.2 Specimen Performing Laboratory Blood MAIN LAB [address] [place] [address] * CBC AND DIFF (12/22/2016 1:45 PM) [...] Blood [facility] MAIN [facility] [address] [place] [address] * ABDOMEN AP ONLY (12/22/2016 7:08 AM) [...]
--- OUTSIDE RECORDS SUMMARY | 2017-03-03 18:53 | XMS REPORT | Encounter Summary ---
Author Author [facility] Organization [facility] Address Unknown Phone Unavailable Care Team Providers Care Ornamental Metal Erector Apprentice Name Role Phone PCP Unavailable Reason for Visit * Auth/Cert Status Reason Specialty Diagnoses / Referred By Referred To Procedures Contact Contact Diagnoses large left front hematoma Hemorrhagic stroke (HCC) Encounter Details Date Type Department Care Team Description 01/02/2017 Anesthesia Main Operating Room Ash Reis SRNA [address] [place] [address] Social History Tobacco Use Types Packs/Day Years [...]
--- OUTSIDE RECORDS SUMMARY | 2017-03-03 18:53 | XMS REPORT | Encounter Summary ---
Author Author [facility] Organization [facility] Address Unknown Phone Unavailable Care Team Providers Care Dairy Manufacturing Technologist Name Role Phone PCP Unavailable Encounter Details Date Type Department Care Team Description 12/28/2016 Procedure Pass [facility] [address] [place] [address] Social History Tobacco Use Types [...]
--- OUTSIDE RECORDS SUMMARY | 2017-03-03 18:53 | XMS REPORT | Encounter Summary ---
Author Author [facility] Organization [facility] Address Unknown Phone Unavailable Care Team Providers Care Cloth Shrinking Supervisor Name Role Phone PCP Unavailable Encounter Details Date Type Department Care Team Description 12/25/2016 Procedure Pass [facility] [address] [place] [address] Social History Tobacco Use Types [...]
--- OUTSIDE RECORDS SUMMARY | 2017-03-03 18:53 | XMS REPORT | Encounter Summary ---
Author Author [facility] Organization [facility] Address Unknown Phone Unavailable Care Team Providers Care Machine Cage Maker Name Role Phone PCP Unavailable Reason for Visit * Auth/Cert Status Reason Specialty Diagnoses / Referred By Referred To Procedures Contact Contact Diagnoses large left front hematoma Hemorrhagic stroke (HCC) Encounter Details Date Type Department Care Team Description 12/31/2016 Anesthesia Main Operating Room [facility] Salguero [facility] [address] [facility] [address] [place] [address] MS [address] [place], [place] [id number] Social History Tobacco Use Types Packs/Day Years [...]
--- OUTSIDE RECORDS SUMMARY | 2017-03-03 18:53 | XMS REPORT | Encounter Summary ---
Author Author [facility] Organization [facility] Address Unknown Phone Unavailable Care Team Providers Care Community Case Manager Name Role Phone PCP Unavailable Encounter Details Date Type Department Care Team Description 12/31/2016 Procedure Pass Main Operating Room [address] [place] [address] Social History Tobacco Use Types [...]
--- OUTSIDE RECORDS SUMMARY | 2017-03-03 18:53 | XMS REPORT | Encounter Summary ---
Author Author [facility] Organization [facility] Address Unknown Phone Unavailable Care Team Providers Care Teacher Visually Impaired Name Role Phone PCP Unavailable Encounter Details Date Type Department Care Team Description 12/28/2016 Procedure Pass [facility] [address] [place] [address] Social History Tobacco Use Types [...]
--- OUTSIDE RECORDS SUMMARY | 2017-03-03 18:53 | XMS REPORT | Encounter Summary ---
Author Author [facility] Organization [facility] Address Unknown Phone Unavailable Care Team Providers Care Manager Stylist Name Role Phone PCP Unavailable Encounter Details Date Type Department Care Team Description 12/27/2016 Procedure Pass [facility] [address] [place] [address] Social History Tobacco Use Types [...]
--- OUTSIDE RECORDS SUMMARY | 2017-03-03 18:54 | XMS REPORT | Encounter Summary ---
Author Author [facility] Organization [facility] Address Unknown Phone Unavailable Care Team Providers Care Fire Lieutenant Name Role Phone PCP Unavailable Encounter Details Date Type Department Care Team Description 12/24/2016 Procedure [facility] [address] [place] [address] Social History Tobacco Use Types [...]
--- OUTSIDE RECORDS SUMMARY | 2017-03-03 18:54 | XMS REPORT | Encounter Summary ---
Author Author [facility] Organization [facility] Address Unknown Phone Unavailable Care Team Providers Care City Councilman Name Role Phone PCP Unavailable Reason for Visit * Auth/Cert Status Reason Specialty Diagnoses / Referred By Referred To Procedures Contact Contact Diagnoses large left front hematoma Hemorrhagic stroke (HCC) Encounter Details Date Type Department Care Team Description 12/24/2016 Anesthesia Main Operating Room Abby Onofre, [facility] [address] [place] [address] Social History Tobacco Use Types Packs/Day Years [...]
--- OUTSIDE RECORDS SUMMARY | 2017-03-03 18:54 | XMS REPORT | Encounter Summary ---
Author Author [facility] Organization [facility] Address Unknown Phone Unavailable Care Team Providers Care Clinical Program Consultant Name Role Phone PCP Unavailable Encounter Details Date Type Department Care Team Description 12/24/2016 Procedure Pass Main Operating Room [address] [place] [address] Social History Tobacco Use Types [...]
--- NOTE | 2017-03-03 18:57 | ED GI ---
General Chief Complaint: Catheter/Drain/Tube Problems Stated Complaint: PULLED TUBE OUT Source of Information: Patient Exam Limitations: No Limitations History of Present Illness Time Seen By Provider: 18:55 Initial Comments To ER with reports of having pulled out her PEG tube. She did this yesterday as well. She has a displaced because of dysphagia following intracranial hemorrhage with surgical treatment at in December of this year. She does still use this PEG tube and she has some persistent choking and swallowing difficulties. Unsure how she pulled it out today. Has been out for a few hours. Timing/Duration: 1-3 Hours Activities at Onset: None Allergies and Home Medications Allergies Coded Allergies: Penicillins (Unverified Allergy, Unknown, HIVES, 12/21/15) THROAT SWELLS Uncoded Allergies: PAULINO INHIBITOR 2 (Allergy, Unknown, HIVES, 12/21/15) THROAT SWELLS Home Medications Aspirin 81 Mg Tablet., #30 (Reported) Clopidogrel Bisulfate 75 Mg Tablet, 75 MG PO DAILY, #30 Prescribed by: ADRIANA TRIPP on 08/04/16 1221 Donepezil HCl 5 Mg Tablet, 5 MG PO DAILY, (Reported) Duloxetine HCl 30 Mg Capsule.dr, 30 MG PO DAILY, (Reported) Hydrocodone/Acetaminophen 1 Each Tablet, 1 EACH PO Q4H PRN for PAIN, #14 Ref 0 Prescribed by: REN BRITT on 03/02/17 1819 Memantine HCl 28 Mg Cap.spr.24, 28 MG PO DAILY, (Reported) Review of Systems Constitutional: no symptoms reported EENTM: No Symptoms Reported Respiratory: No Symptoms Reported Cardiovascular: No Symptoms Reported Gastrointestinal: See HPI Genitourinary: No Symptoms Reported Musculoskeletal: no symptoms reported Skin: no symptoms reported Psychiatric/Neurological: No Symptoms Reported Endocrine: No Symptoms Reported Past Zmzoswc-Uesrld-Nxkonz Hx Patient Social History Alcohol Use: Denies Use Recreational Drug Use: No Smoking Status: Never a Smoker 2nd Hand Smoke Exposure: No Recent Foreign Travel: No Contact w/Someone Who Travel: No Recent Hopitalizations: No Immunizations Up To Date Tetanus Booster (TDap): More than 5yrs Date of Influenza Vaccine: Feb 16, 2012 Seasonal Allergies Seasonal Allergies: Yes Surgeries History of Surgeries: Yes ("spinal cage", GTUBE PLACEMENT, CRANIOTOMY, ) Surgeries: Hysterectomy, Orthopedic, Tonsillectomy Respiratory History of Respiratory Disorde: Yes Respiratory Disorders: Asthma Cardiovascular History of Cardiac Disorders: No Neurological History of Neurological Disord: Yes ("mini stroke" FOUND ON MRI 3-4 months ago per ) Neurological Disorders: Dementia, Stroke Reproductive System Hx Reproductive Disorders: No Genitourinary History of Genitourinary Disor: No Gastrointestinal History of Gastrointestinal Di: No Musculoskeletal History of Musculoskeletal Dis: Yes Musculoskeletal Disorders: Osteoporosis, Arthritis, Chronic Back Pain, Fractures Endocrine History of Endocrine Disorders: Yes (WAS ON MEDICATIONS FOR DIABETES, BUT NOT ANY LONGER) Endocrine Disorders: Diabetes, Non-Insulin dep HEENT History of HEENT Disorders: No Cancer History of Cancer: No Psychosocial History of Psychiatric Problem: Yes Behavioral Health Disorders: Depression Integumentary History of Skin or Integumenta: No Blood Transfusions History of Blood Disorders: No Family Medical History Significant Family History: No Pertinent Family Hx Physical Exam Vital Signs VS - Last 72 Hours, by Label 03/03/17 18:53 Temp 96.9 Pulse 70 Resp 16 B/P (MAP) 122/74 Pulse Ox 98 O2 Delivery Room Air Capillary Refill : General Appearance: WD/WN, no apparent distress HEENT: PERRL/EOMI, normal ENT inspection Neck: non-tender, full range of motion Respiratory: no respiratory distress, no accessory muscle use Gastrointestinal: normal bowel sounds, soft, other (stoma with minimal active bleeding left upper abdomen.) Progress/Results/Core Measures Results/Orders My Orders Orders - BOUCHRA TONG APRN Peg Tube Check (03/03/17 19:44) Vital Signs/I&O Vital Sign - Last 12Hours 03/03/17 18:53 Temp 96.9 Pulse 70 Resp 16 B/P (MAP) 122/74 Pulse Ox 98 O2 Delivery Room Air Departure Communication (Admissions) Family Conversation After dilating the stoma with urethral sounds I was finally able to get the 14 [place]uv[place] PEG tube back in place.. I then confirmed this with PEG tube check x- ray. Progress Notes NAME: SARAH POE MED REC#: [id number] PT STATUS: REG ER : 1950 PHYSICIAN: BOUCHRA TONG APRN ADMIT DATE: 03/03/17/ER Draft Date of Exam:03/03/17 PEG TUBE CHECK Clinical indication: PEG tube check. Exam: X-ray of the abdomen, 2 KUB views and lateral view of the abdomen. Comparison: None. Findings: PEG tube is seen overlying the gastric body region. There is injection of Gastrografin through the PEG tube with contrast filling the stomach and extending through the duodenum and proximal jejunum. There is no evidence of gross contrast leakage on the given images. There is no intra-abdominal free air. There is a moderate amount of stool in the rectosigmoid region. Posterior fusion hardware is seen at the L1-L5 levels. Laminectomy changes are also seen. There is degenerative disease of the lumbar spine. There is retrolisthesis of L2 on L3. Impression: Contrast injection through the PEG tube which is in good position. Is no gross contrast leakage or free air seen on this exam. Dictated on workstation # [id number] Dict: 03/03/172006 Trans: 03/03/172014 [facility] [id number] Interpreted by: ADRIANO ABRAHAM MD Electronically signed by: Impression Impression: Primary Impression: PEG tube malfunction Disposition: 01 HOME, SELF-CARE Condition: Stable Departure-Patient Inst. Decision time for Depature: 20:19 Referrals: ZULEYMA VAUGHAN MD (PCP/Family) Primary Care Physician Patient Instructions: How to Care for Your PEG Tube Add. Discharge Instructions: All discharge instructions reviewed with patient and/or family. Voiced understanding. BOUCHRA TONG APRN Mar 03, 2017 18:57
--- OUTSIDE RECORDS SUMMARY | 2017-03-03 18:57 | XMS REPORT | Encounter Summary ---
[facility] Address Unknown Phone Unavailable Care Team Providers Care Egg Separator Name Role Phone PCP Unavailable Reason for Visit * Auth/Cert Status Reason Specialty Diagnoses / Referred By Referred To Procedures Contact Contact Diagnoses large left front hematoma Hemorrhagic stroke (HCC) Encounter Details Date Type Department Care Team Description 12/24/2016 Surgery Main Operating Room Antwan Guadarrama MD CRANIOTOMY EVACUATION [address] [place] [address] [address], brainlab, [place] [address] tube system [phone] Social History Tobacco Use Types Packs/Day Years [...] notable for: 66 y.o. female transfer from [facility] with large left frontal parenchymal [...] of 0800 -1700, please call Theresa at [phone]. Otherwise, please call the main hospital number ([phone]) and ask for the neurosurgery resident comfort station supervisor to be paged. BLADDER SCAN BEDSIDE Every 4 hours STRAIGHT CATH Every 4 hours for > 300 ml on bladder scan INSTRUCTIONS, ADDITIONAL CT head without contrast prior to DC from rehab. Please call [phone] when completed. PT EVAL & TREAT PT EVAL & TREAT Report These Signs and Symptoms Call for pain that is uncontrolled with pain medication, numbness or weakness, vision changes, trouble with speech or slurring of speech, or any questions/ concerns. Questions About Your Stay For questions or concerns regarding your hospital stay. Call [phone] Discharging attending physician: ANTWAN GUADARRAMA [[id number]] Tube Feeding Isosource 1.5 45 ml/hr with [...] Post - Op with Antwan Guadarrama MD [facility] - Neurosurgery (P NeuroSurgery) 2nd Floor Pod B [address] [facility] Med Office [facility] [id number] Pending items needing follow up: None Signed: [...] ride printed and placed outside room. * Guvrinder Galicia - 01/06/2017 1:37 PM CDT SPEECH-LANGUAGE [...] dysphagia assessment and treatment. 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 Mckenzie Yamel, FINANCIAL ASSISTANCE ADVISOR 0020 Please call [phone] with any questions. * Kyle Christensen - 01/06/2017 8:54 AM CDT PHYSICAL THERAPY PROGRESS NOTE MOBILITY: Mobility Progressive Mobility Level: Walk laps Distance Walked (feet): 250 ft Level of Assistance: Assist X1 Assistive Device: Hand Held Time Tolerated: 11-30 minutes Activity Limited By: Fatigue SUBJECTIVE: Subjective Significant hospital events: 66 y.o. female PMH TIA, dementia, osteoporosis, arthritis, chronic back pain, admitted to [facility] with ICH on 12/22/16. Mental / [...] osteoporosis, arthritis, chronic back pain, admitted to [facility] with ICH on 8/7/17. Large left frontal [...] Consist/Presentation* Presentations: Therapist Fed Thin Liquid: Cup [facility] [facility] Thick Liquid: Cup, straw Education* Persons Educated: Patient Barriers To Learning: Impaired Communication, Decreased Alertness, Cognitive Deficits, Family not present Interventions: Staff Educated Teaching Methods: Verbal Topics: Aphasia, Dysphagia Patient Response: More Instruction Required Goals: Pt will participate in ongoing dysphagia assessment and treatment. 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 IVF 1/ 2NS 500ml bolus, and 150ml free water boluses every 4 hours REGULATORY AFFAIRS SPEC VS this afternoon SW for DC planning -anticipate ready for rehab tomorrow 01/06 Prophylaxis: A)GI: PPI B) Lines: No C) Urinary Catheter: No D) Antibiotic Usage: No E) VTE: Pharmacological prophylaxis; SQ Heparin and Mechanical prophylaxis; Sequential compression device F) Restraints: Patient assessed for need for restraints. Mckenzie Montesinos, FINANCIAL ASSISTANCE ADVISOR 1948 Please call [phone] with any questions. * FerminKyle - 01/05/2017 11:35 AM CDT PHYSICAL THERAPY PROGRESS NOTE MOBILITY: Mobility Progressive Mobility Level: Walk in hallway Distance Walked (feet): 120 ft Level of Assistance: Assist X2 Assistive Device: Hand Held Time Tolerated: 0-10 minutes Activity Limited By: Fatigue;Weakness SUBJECTIVE: Subjective Significant hospital events: 66 y.o. female PMH TIA, dementia, osteoporosis, arthritis, chronic back pain, admitted to [facility] with ICH on 12/22/16. 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) Dementia TIA (transient ischemic attack) Chronic back pain Intraparenchymal hemorrhage of brain (HCC) Added automatically from request for surgery [id number] Keppra DEBT COUNSELOR ASA/Plavix held Q1H neurochecks PT/OT inpatient setting Rehab consulted, follow up early next week, family interested in [facility] PEG placed, TF's restarted at 1800 REGULATORY AFFAIRS SPEC VS Thursday SW for DC planning Prophylaxis: A)GI: PPI B) Lines: No C) Urinary Catheter: No D) Antibiotic Usage: No E) VTE: Pharmacological prophylaxis; SQ Heparin and Mechanical prophylaxis; Sequential compression device F) Restraints: Patient assessed for need for restraints. Abby Hernandez MD Please call [phone] with any questions. Associated attestation - Madhavi Rivera MD - 01/03/2017 12:42 PM CDT Attending Note Patient and imaging reviewed with resident/ STONECUTTER ASSISTANT. Patient seen and examined on . I [...] off at this time. Call with questions [phone] Discussed plan of care with Dr. Hankins [...] calcium gluconate IVPB 1 g Intravenous PRN (Radiator Tester from Rx) hydrALAZINE 10-20 mg Intravenous Q6H PRN HYDROcodone/acetaminophen 1-2 tablet Oral Q4H PRN magnesium sulfate 1 g Intravenous PRN ondansetron 4 mg Intravenous Q6H PRN pancrelipase 20,000 Units/ sodium bicarbonate 650 mg(#) 1 capsule Feeding Tube PRN (Radiator Tester from Rx) potassium chloride SR 40 mEq [...] PO4 3.5 4.5* Karri Rai DO Pager: [phone] Associated attestation - Jong Hankins MD - [...] fashion. Jong Hankins MD Trauma/Critical Care/General Surgery [phone] * Calvin Lundberg DO - 01/02/2017 6:11 PM CDT ACS PEG usage: ok to use PEG for meds now. Tube feeds ok starting at 1800 on . Tamika 0533 * Alesha Patton, VANESSA - 01/02/2017 4:45 PM CDT Pt. Transferred to OR with transport via cart. VS stable. Ticket to ride provided and report given to DIKE SUPERVISOR. Gurvinder Mclaughlin - 01/02/2017 3:56 PM CDT SPEECH-LANGUAGE PATHOLOGY NO TREATMENT NOTE The patient was not seen due to: Pt NPO for procedure (PEG placement) later this date. Will f/u 01/05. Therapist: SUZANNE Perez, CF-REGULATORY AFFAIRS SPEC [id number] Date: 01/02/2017 * Jasmyne Avendaño OT [...] osteoporosis, arthritis, chronic back pain, admitted to [facility] with ICH on 12/22/16. Mental / [...] calcium gluconate IVPB 1 g Intravenous PRN (Radiator Tester from Rx) hydrALAZINE 10-20 mg Intravenous Q6H PRN HYDROcodone/acetaminophen 1-2 tablet Oral Q4H PRN magnesium sulfate 1 g Intravenous PRN ondansetron 4 mg Intravenous Q6H PRN pancrelipase 20,000 Units/ sodium bicarbonate 650 mg(#) 1 capsule Feeding Tube PRN (Radiator Tester from Rx) potassium chloride SR 40 mEq [...] 3.5 3.5 4.5* Karri Rai DO Pager: [phone] * Nicole Miller, RD - 01/01/2017 3:31 PM CDT CLINICAL NUTRITION Clinical Nutrition Follow-Up Summary Nutrition Assessment of Patient: Malnutrition Assessment: Malnutrition present Malnutrition Context: ICD-10 code E43: Chronic illness/Severe malnutrition Estimated Calorie Needs: 7416-9592 (28-30 kcal/kg dry wt 55.4kg) Estimated Protein Needs: 65-75 (1.2-1.4g/kg dry wt 55.4kg) Oral Diet Order: NPO 3 day Average Intake (calories) Daily Average : 838 kilocalories Intake (protein) Daily Average : 38 grams female w/ PMH including dementia, chronic back pain, TIA; transferred to [facility] 12/22 with large left frontal parenchymal hemorrhage [...] osteoporosis, arthritis, chronic back pain, admitted to [facility] with Left frontal IPH on . [...] w/ verbal presentation of the word from REGULATORY AFFAIRS SPEC w/ max cues. VERBAL EXPRESSION Comments*: Pt [...] accuracy w/ max cues. Therapist: SUZANNE Perez, CF-REGULATORY AFFAIRS SPEC [id number] Date: 01/01/2017 * Kyle Christensen - [...] osteoporosis, arthritis, chronic back pain, admitted to [facility] with ICH on 12/22/16 Mental / [...] aspiration. Pt inconsistently w/ spontaneous responses to REGULATORY AFFAIRS SPEC questions w/ 1 - to 3-word responses. [...] Corpak. Meds via Corpak. Anticipate need for intermediate alternative source of nutrition. Excellent oral care. [...] therapy post acute hospitalization. Therapist: SUZANNE Perez, CF-REGULATORY AFFAIRS SPEC [id number] Date: 01/01/2017 * Elen Styles RN [...] aspiration. Pt rarely w/ spontaneous responses to REGULATORY AFFAIRS SPEC questions w/ 1- or 2-word responses ("yeah", "pretty good"). Unable to elicit voice, cough, or throat clear on command. No family present during session. RECOMMENDATIONS: Remain NPO at this time due to waxing and waning alertness and lethargy w/ continued use of Corpak. Meds via Corpak. Anticipate need for moth exterminator alternative source of nutrition. Excellent oral care. [...] therapy post acute hospitalization. Therapist: SUZANNE Perez, CF-REGULATORY AFFAIRS SPEC [id number] Date: 12/31/2016 * Elen Styles RN [...] osteoporosis, arthritis, chronic back pain, admitted to [facility] with ICH on 12/22/16. Mental / [...] calcium gluconate IVPB 1 g Intravenous PRN (Radiator Tester from Rx) hydrALAZINE 10-20 mg Intravenous Q6H PRN HYDROcodone/acetaminophen 1-2 tablet Oral Q4H PRN magnesium sulfate 1 g Intravenous PRN ondansetron 4 mg Intravenous Q6H PRN pancrelipase 20,000 Units/ sodium bicarbonate 650 mg(#) 1 capsule Feeding Tube PRN (Radiator Tester from Rx) potassium chloride SR 40 mEq Oral PRN Or potassium chloride 40 mEq Per NG tube PRN Or potassium chloride 10 mEq Intravenous PRN Current Infusions: Glucose Monitoring: FSBS (Manual): (!) 134 (12/31/1654) Glucose: (!) 130 (12/31/16 0525) POC Glucose (Download): (!) 134 (12/31/1699) Recent Laboratory Studies: Recent Labs 12/28/16 1309 [...] -- 4.3* 3.5 Adam Nicholson MD Pager: [phone] * Carrie Pack, OT - 12/31/2016 10:29 [...] osteoporosis, arthritis, chronic back pain, admitted to [facility] with Left frontal IPH on . Patient to OR for hematoma evacuation and EVD placement on 12/24. Precautions: Falls Pain / Complaints: Patient demonstrates no signs of pain Objective Psychosocial Status: Willing and Cooperative to Participate Persons Present: Addictions Counselor Assistant ADL's Where Assessed: Standing at Sink [...] osteoporosis, arthritis, chronic back pain, admitted to [facility] with ICH on 12/22/16. Mental / [...] Light (TABs alarm activated) Comments: Recommend staff readiness officer perform stand pivot transfer with 2 [...] osteoporosis, arthritis, chronic back pain, admitted to [facility] with Left frontal IPH on . [...] aspiration. Pt rarely w/ spontaneous responses to REGULATORY AFFAIRS SPEC questions w/ 1- or 2-word responses ("yeah", "pretty good"). Unable to elicit voice, cough, or throat clear on command. No family present during session. RECOMMENDATIONS: Remain NPO at this time due to waxing and waning alertness and lethargy w/ continued use of Corpak. Meds via Corpak. Anticipate need for intermediate alternative source of nutrition. Excellent oral care. [...] therapy post acute hospitalization. Therapist: SUZANNE Perez, CF-REGULATORY AFFAIRS SPEC [id number] Date: 12/30/2016 * Iwona Woo APRN [...] 12/22/2016 Added automatically from request for surgery [id number] Roxy Phillip is a 66 y.o. female [...] - Keppra 500 mg BID - Holding DEBT COUNSELOR Plavix (placed on after TIA)- will discuss [...] Intake/Output Summary (Last 24 hours) at 12/30/16 0799 Last data filed at 12/30/16 0400 Gross [...] radiologic and diagnostic procedures reviewed. Iwona Woo, FINANCIAL ASSISTANCE ADVISOR Date: 12/30/[phone] I spent 40 minutes managing the care [...] <60. No new orders. Passed on to night shift supervisor nurse. Will continue to monitor [...] osteoporosis, arthritis, chronic back pain, admitted to [facility] with ICH on 12/22/16. Mental / [...] osteoporosis, arthritis, chronic back pain, admitted to [facility] with Left frontal IPH on . [...] Corpak. Meds via Corpak. Anticipate need for moth exterminator alternative source of nutrition. Excellent oral care. [...] therapy post acute hospitalization. Therapist: SUZANNE Perez, CF-REGULATORY AFFAIRS SPEC [id number] Date: 12/29/2016 * Shantal Lopez, SERVANDO - 12/29/2016 2:25 PM CDT CLINICAL NUTRITION Clinical Nutrition Follow-Up Summary Nutrition Assessment of Patient: Malnutrition Assessment: Malnutrition present Malnutrition Context: ICD-10 code E43: Chronic illness/Severe malnutrition Estimated Calorie Needs: 7441-4405 (28-30 kcal/kg dry wt 55.4kg) Estimated Protein [...] dementia, chronic back pain, TIA; transferred to [facility] 12/22 with large left frontal parenchymal hemorrhage [...] 12/22/2016 Added automatically from request for surgery [id number] ATTESTATION Date of Service: 12/29/2016 I have [...] PO NaCl. Trend sodiums another day. Cont DEBT COUNSELOR ASA and plavix. CV - meeting SBP [...] 0.5% Q4H PRN, calcium gluconate IVPB PRN (Radiator Tester from Rx) AND Ionized Calcium PRN AND Notify Physician Ongoing, fentaNYL citrate PF Q1H PRN, hydrALAZINE Q6H PRN, HYDROcodone/acetaminophen Q4H PRN, magnesium sulfate PRN AND Magnesium PRN * *AND Notify Physician Ongoing, ondansetron Q6H PRN, pancrelipase 20,000 Units / sodium bicarbonate 650 mg(#) PRN (Radiator Tester from Rx), potassium chloride SR PRN OR [...] 0423) POC Glucose (Download): (!) 109 (12/29/16 0870) Radiology and Other Diagnostic Procedures Review: Pertinent radiology reviewed. Mary Huntley MD 12/29/2016 Pager: [phone] * Daisy Benitez RN - 12/29/2016 10:18 [...] see patient 1 time Therapist: SUZANNE Perez, CF-REGULATORY AFFAIRS SPEC [id number] Date: 12/29/2016 * Ashia Patterson APRN [...] 12/22/2016 Added automatically from request for surgery [id number] Hospital and ICU course: 12/22: admitted to [...] - Keppra 500 mg BID - Holding DEBT COUNSELOR Plavix (placed on after TIA) - Angio [...] 0.5% Q4H PRN, calcium gluconate IVPB PRN (Radiator Tester from Rx) AND Ionized Calcium PRN AND Notify Physician Ongoing, fentaNYL citrate PF Q1H PRN, hydrALAZINE Q6H PRN, HYDROcodone/acetaminophen Q4H PRN, magnesium sulfate PRN AND Magnesium PRN * *AND Notify Physician Ongoing, ondansetron Q6H PRN, pancrelipase 20,000 Units / sodium bicarbonate 650 mg(#) PRN (Radiator Tester from Rx), potassium chloride SR PRN OR [...] of care with consulted teams. Ashia Patterson, FINANCIAL ASSISTANCE ADVISOR Date: 12/29/[phone] * Jaswinder Gaspar MD - 12/29/2016 6:31 [...] (HCC) Added automatically from request for surgery [id number] Nontraumatic cortical hemorrhage of left cerebral hemisphere [...] 147, On 2% @20, PO salt Keppra DEBT COUNSELOR ASA/Plavix held Q1H neurochecks PT/OT inpatient setting (will need rehab consult) ST, NPO SW for DC planning Prophylaxis: A)GI: PPI B) Lines: No C) Urinary Catheter: No D) Antibiotic Usage: No E) VTE: Pharmacological prophylaxis; Contraindication: Bleeding risk; No SQH large ICH with hx of ASA/Plavix and Mechanical prophylaxis; Sequential compression device F) Restraints: Patient assessed for need for restraints. Jaswinder Gaspar MD 7590 Please call [phone] with any questions. * Rommel Cisneros RN [...] 12/22/2016 Added automatically from request for surgery [id number] 24 hour I/O balance is as follows: Intake/Output Summary (Last 24 hours) at 12/28/16 0840 Last data filed at 12/28/16 0800 Gross per 24 hour Intake 2335 ml Output 1839 ml Net 496 ml __ Subjective: Roxy Phillip is a 66 y.o. female. Overnight Events: No new events noted, sign out obtained from night shift supervisor person ( nurse and ICU [...] Meds:acetaminophen Q4H PRN, calcium gluconate IVPB PRN (Radiator Tester from Rx) AND Ionized Calcium PRN AND Notify Physician Ongoing, fentaNYL citrate PF Q1H PRN, hydrALAZINE Q6H PRN, HYDROcodone/acetaminophen Q4H PRN, magnesium sulfate PRN AND Magnesium PRN AND Notify Physician Ongoing, ondansetron Q6H PRN, pancrelipase 20,000 Units/ sodium bicarbonate 650 mg(#) PRN (Radiator Tester from Rx), potassium chloride SR PRN OR [...] optimize venous drainage Maintain normothermia, avoid hypoxemia, Dougherty appropriate osmotherapy ( i.e mannitol vs Hypertonic [...] HAD BM on 12-27-16 Social work and director case management for discharge planning and placement. Family Meeting and update: yes. Patient is unable to make his or her decisions, family updated during rounds. Goals of therapy: Addressed, Patient is a full code Nurses concerns addressed. 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) Dementia TIA (transient ischemic attack) Chronic back pain EVD catheter withdrawn 12/25/16 Pulled back again this AM (12/27/16), CT head shows new position of catheter and decreased size of IPH Na- 143, On 2% @50, PO salt Keppra DEBT COUNSELOR ASA/Plavix held Q1H neurochecks PT/OT inpatient setting (will need rehab consult) ST, NPO SW for DC planning Prophylaxis: A)GI: PPI B) Lines: No C) Urinary Catheter: No D) Antibiotic Usage: No E) VTE: Pharmacological prophylaxis; Contraindication: Bleeding risk; No SQH large ICH with hx of ASA/Plavix and Mechanical prophylaxis; Sequential compression device F) Restraints: Patient assessed for need for restraints. Phylicia Duenas MD 3594 Please call [phone] with any questions. * Robbie Singh, FINANCIAL ASSISTANCE ADVISOR - 12/28/2016 6:52 AM CDT Formatting of [...] 12/22/2016 Added automatically from request for surgery [id number] Hospital and ICU course: 12/22: admitted to [...] - Keppra 500 mg BID - Holding DEBT COUNSELOR Plavix (placed on after TIA) 12/27 Head [...] Meds:acetaminophen Q4H PRN, calcium gluconate IVPB PRN (Radiator Tester from Rx) AND Ionized Calcium PRN AND Notify Physician Ongoing, fentaNYL citrate PF Q1H PRN, hydrALAZINE Q6H PRN, HYDROcodone/acetaminophen Q4H PRN, magnesium sulfate PRN AND Magnesium PRN AND Notify Physician Ongoing, ondansetron Q6H PRN, pancrelipase 20,000 Units/ sodium bicarbonate 650 mg(#) PRN (Radiator Tester from Rx), potassium chloride SR PRN OR [...] (122 lb 9.2 oz), SpO2 97 %. [place] coma score: E: 4 - Opens eyes [...] 0335) POC Glucose (Download): (!) 159 (12/28/16 3186) Radiology and Other Diagnostic Procedures Review: all noted I spent 45 minutes managing the care of this patient. Mrs Phillip is critically ill s/p ICH. Cares included: detailed neurologic and systems exam, medication review, laboratory data review and interpretation, electrolyte management, review of available imaging, DVT/PE prophylaxis review, diet review , activity review, and coordination of care with consulted teams. Robbie Singh, FINANCIAL ASSISTANCE ADVISOR Date: 12/28/[phone] * Delaney Lechuga RN - 12/27/2016 6:30 [...] 12/22/2016 Added automatically from request for surgery [id number] Hospital and ICU course: 12/22: admitted to [...] - Keppra 500 mg BID - Holding DEBT COUNSELOR Plavix (placed on after TIA) 12/27 Head [...] daily BM (last 12/25) Heme: stable -hold DEBT COUNSELOR Plavix and ASA - Hgb 11.0, Plt [...] Meds:acetaminophen Q4H PRN, calcium gluconate IVPB PRN (Radiator Tester from Rx) AND Ionized Calcium PRN AND Notify Physician Ongoing, fentaNYL citrate PF Q1H PRN, hydrALAZINE Q6H PRN, HYDROcodone/acetaminophen Q4H PRN, magnesium sulfate PRN AND Magnesium PRN AND Notify Physician Ongoing, ondansetron Q6H PRN, pancrelipase 20,000 Units/ sodium bicarbonate 650 mg(#) PRN (Radiator Tester from Rx), potassium chloride SR PRN OR [...] (Last 24 hours): Glucose: (!) 184 (12/27/16 6862) Radiology and Other Diagnostic Procedures Review: all noted Myke Hernandez MD Date: 12/27/[phone] Associated attestation - Marcos Herrmann MD - [...] back pain 12/23/2016 Intraparenchymal hemorrhage of brain ([facility]) 12/22/2016 Added automatically from request for surgery [id number] 24 hour I/O balance is as follows: Intake/Output Summary (Last 24 hours) at 12/27/16 1239 Last data filed at 12/27/16 1200 Gross per 24 hour Intake 2167 ml Output 2624 ml Net -457 ml __ Subjective: Roxy Phillip is a 66 y.o. female. Overnight Events: No new events noted, sign out obtained from night shift supervisor person ( nurse and [facility] physician). Patient examined: yes Objective: I have [...] Meds:acetaminophen Q4H PRN, calcium gluconate IVPB PRN (Radiator Tester from Rx) AND Ionized Calcium PRN AND Notify Physician Ongoing, fentaNYL citrate PF Q1H PRN, hydrALAZINE Q6H PRN, HYDROcodone/acetaminophen Q4H PRN, magnesium sulfate PRN AND Magnesium PRN AND Notify Physician Ongoing, ondansetron Q6H PRN, pancrelipase 20,000 Units/ sodium bicarbonate 650 mg(#) PRN (Radiator Tester from Rx), potassium chloride SR PRN OR [...] optimize venous drainage Maintain normothermia, avoid hypoxemia, Dougherty appropriate osmotherapy ( i.e mannitol vs Hypertonic [...] (Last 24 hours): Glucose: (!) 184 (12/27/16 9746) Drains: reviewed Prophylaxis Review: Lines: No Urinary [...] aspiration. Monitor for BM Social work and director case management for discharge planning and placement. Family Meeting and update: yes. Patient is unable to make his or her decisions, family updated during rounds. Goals of therapy: Addressed, Patient is a full code Nurses concerns addressed. 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) Dementia TIA (transient ischemic attack) Chronic back pain EVD catheter withdrawn 12/25/16 Pulled back again this AM (12/27/16), CT head ordered to evaluate new position Na- 149, On 2% @20, PO salt Keppra DEBT COUNSELOR ASA/Plavix held Q1H neurochecks PT/OT inpatient setting (will need rehab consult) ST, NPO SW for DC planning Prophylaxis: A)GI: PPI B) Lines: No C) Urinary Catheter: No D) Antibiotic Usage: No E) VTE: Pharmacological prophylaxis; Contraindication: Bleeding risk; No SQH large ICH with hx of ASA/Plavix and Mechanical prophylaxis; Sequential compression device F) Restraints: Patient assessed for need for restraints. Phylicia Duenas MD [id number] Please call [phone] with any questions. * Gurvinder Galicia - 12/26/2016 2:23 PM CDT SPEECH-LANGUAGE PATHOLOGY NO TREATMENT NOTE Per discussion w/ RN, pt still demonstrating lethargy and reduced arousal and not appropriate for swallow treatment on this date. Do not anticipate changes in swallow function in near future. Will f/u 12/29. Attempted to see patient 1 time Therapist: SUZANNE Perez, CF-REGULATORY AFFAIRS SPEC [id number] Date: 12/26/2016 * Kyle Christensen - [...] osteoporosis, arthritis, chronic back pain, admitted to [facility] with Left frontal IPH on . [...] 12/22/2016 Added automatically from request for surgery [id number] Hospital and ICU course: 12/22: admitted to [...] - Per Took 10/325mg Hydrocodone q6 hours DEBT COUNSELOR- Minimize narcotic use - Assess for delirium [...] bowel regimen, ensure daily BM Heme: -hold DEBT COUNSELOR Plavix and ASA - 12/24 Hgb 10.6 [...] Meds:acetaminophen Q4H PRN, calcium gluconate IVPB PRN (Radiator Tester from Rx) AND Ionized Calcium PRN AND Notify Physician Ongoing, fentaNYL citrate PF Q1H PRN, hydrALAZINE Q6H PRN, HYDROcodone/acetaminophen Q4H PRN, magnesium sulfate PRN AND Magnesium PRN AND Notify Physician Ongoing, ondansetron Q6H PRN, pancrelipase 20,000 Units/ sodium bicarbonate 650 mg(#) PRN (Radiator Tester from Rx), potassium chloride SR PRN OR [...] (119 lb 14.9 oz), SpO2 94 %. Ardmore coma score: E: 4 - Opens eyes [...] care 50 min Inocencio LacKmark Date: 12/26/[phone] * Carrie Lindquist, JAYLA-STONECUTTER ASSISTANT - 12/26/2016 7:47 AM CDT Formatting of this note may be different from the original. Neuroscience Critical Care Progress Note Roxy Sarah 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) 2016 Dementia 12/23/2016 TIA (transient ischemic attack) 12/23/2016 Chronic back pain 12/23/2016 Intraparenchymal hemorrhage of brain (HCC) 12/22/2016 Added automatically from request for surgery [id number] Hospital and ICU course: 12/22: admitted to [...] - Keppra 500 mg BID - Holding DEBT COUNSELOR Plavix (placed on after TIA) Sedation/Pain Management: [...] ensure daily BM (last 12/25) Heme: -hold DEBT COUNSELOR Plavix and ASA - Hgb 9.1, Plt [...] PRN and Respiratory Meds:calcium gluconate IVPB PRN (Radiator Tester from Rx) AND Ionized Calcium PRN AND Notify Physician Ongoing, fentaNYL citrate PF Q1H PRN, hydrALAZINE Q6H PRN, HYDROcodone/acetaminophen Q4H PRN, magnesium sulfate PRN AND Magnesium PRN AND Notify Physician Ongoing, ondansetron Q6H PRN , pancrelipase 20,000 Units/ sodium bicarbonate 650 mg(#) PRN (Radiator Tester from Rx) , potassium chloride SR PRN [...] of care with consulted teams. Carrie Lindquist, FINANCIAL ASSISTANCE ADVISOR-STONECUTTER ASSISTANT Date: 12/26/[phone] * Nicole Little RN - 12/25/2016 7:21 [...] 12/22/2016 Added automatically from request for surgery [id number] Hospital and ICU course: 12/22: admitted to [...] - Keppra 500 mg BID - Hold DEBT COUNSELOR Plavix (placed on after TIA) Sedation/Pain Management: Hx of Chronic back pain - Per Took 10/325mg Hydrocodone q6 hours DEBT COUNSELOR- hold for now, use PRNs if needed [...] bowel regimen, ensure daily BM Heme: -hold DEBT COUNSELOR Plavix and ASA - 12/24 Hgb 10.6 [...] PRN and Respiratory Meds:calcium gluconate IVPB PRN (Radiator Tester from Rx) AND Ionized Calcium PRN AND Notify Physician Ongoing, fentaNYL citrate PF Q1H PRN, hydrALAZINE Q6H PRN, HYDROcodone/acetaminophen Q4H PRN, magnesium sulfate PRN AND Magnesium PRN AND Notify Physician Ongoing, ondansetron Q6H PRN , pancrelipase 20,000 Units/ sodium bicarbonate 650 mg(#) PRN (Radiator Tester from Rx) , potassium chloride SR PRN [...] (124 lb 5.4 oz), SpO2 97 %. Ardmore coma score: E: 4 - Opens eyes [...] (Last 24 hours): Glucose: (!) 126 (12/25/16 7225) Radiology and Other Diagnostic Procedures Review: all noted Critical care 50 min Inocencio Haddad Date: 12/25/[phone] * Gurvinder Galicia - 12/25/2016 2:23 PM [...] therapy post acute hospitalization. Therapist: SUZANNE Perez, CF-REGULATORY AFFAIRS SPEC [id number] Date: 12/25/2016 * Carrie Pack, OT - 12/25/2016 11:34 AM CDT OCCUPATIONAL THERAPY PROGRESS NOTE Admitting Diagnosis: large left front hematoma Hemorrhagic stroke (HCC) Patient seen x1 this date. Documentation reflects all daily treatment sessions. Subjective Pertinent Dx per Physician: 66 y.o. female PMH TIA, dementia, osteoporosis, arthritis, chronic back pain, admitted to [facility] with Left frontal IPH on . [...] osteoporosis, arthritis, chronic back pain, admitted to [facility] with ICH on 12/22/16. 12/24 CRANIOTOMY [...] 12/22/2016 Added automatically from request for surgery [id number] Hospital and ICU course: 12/22: admitted to [...] - Keppra 500 mg BID - Hold DEBT COUNSELOR Plavix (placed on after TIA) Sedation/Pain Management: Hx of Chronic back pain - Per Took 10/325mg Hydrocodone q6 hours DEBT COUNSELOR- hold for now, use PRNs if needed [...] bowel regimen, ensure daily BM Heme: -hold DEBT COUNSELOR Plavix and ASA - 12/24 Hgb 10.6 [...] PRN and Respiratory Meds:calcium gluconate IVPB PRN (Radiator Tester from Rx) AND Ionized Calcium PRN AND [...] (124 lb 5.4 oz), SpO2 99 %. Ardmore coma score: E: 4 - Opens eyes [...] consulted teams. Ashia Patterson APRN Date: 12/25/[phone] * Nicole Little RN - 12/24/2016 6:55 [...] and provide OT intervention as indicated. Therapist: HENRY James/Bharati [id number] Date: 12/24/2016 * Inocencio Haddad [...] 12/22/2016 Added automatically from request for surgery [id number] Miss Phillip is 66y/o female with large [...] watch for hydrocephalus - OT/PT - Hold DEBT COUNSELOR Plavix (placed on after TIA) Sedation/Pain Management: Hx of Chronic back pain - Per Took 10/325mg Hydrocodone q6 hours DEBT COUNSELOR- hold for now, use PRNs if needed [...] bowel regimen, ensure daily BM Heme: hold DEBT COUNSELOR Plavix and ASA - assess for coagulopathy, [...] PRN and Respiratory Meds:calcium gluconate IVPB PRN (Radiator Tester from Rx) AND Ionized Calcium PRN AND [...] care 60 minutes Inocencio Haddad Date: 12/24/[phone] * Gurvinder Galicia - 12/24/2016 10:10 AM CDT SPEECH-LANGUAGE PATHOLOGY NO TREATMENT NOTE Per discussion w/ RN, pt NPO for procedure later this date and remains lethargic w/ decreased arousal. Will f/u 12/25 as pt is appropriate. 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 (HCC) Dementia TIA (transient ischemic attack) Chronic back pain Off label Hilario, consented, pre op complete, marked CT head 12/23 stable, head CT 12/24 for OR planning Na- 144, On 2% @75, goal 145-155 Keppra DEBT COUNSELOR ASA/Plavix held Q1H neurochecks PT/OT inpatient setting (will need rehab consult) ST, NPO SW for DC planning Prophylaxis: A)GI: PPI B) Lines: No C) Urinary Catheter: No D) Antibiotic Usage: No E) VTE: Pharmacological prophylaxis; Contraindication: Bleeding risk; No SQH large ICH with hx of ASA/Plavix and Mechanical prophylaxis; Sequential compression device F) Restraints: Patient assessed for need for restraints. Angela Benavides FINANCIAL ASSISTANCE ADVISOR 1183 Please call [phone] with any questions. * Robbie Singh, FINANCIAL ASSISTANCE ADVISOR - 12/24/2016 7:03 AM CDT Formatting of [...] 12/22/2016 Added automatically from request for surgery [id number] Hospital and ICU course: 12/22: admitted to [...] 500 mg BID - OT/PT - Hold DEBT COUNSELOR Plavix (placed on after TIA) Sedation/Pain Management: Hx of Chronic back pain - Per Took 10/325mg Hydrocodone q6 hours DEBT COUNSELOR- hold for now, use PRNs if needed [...] bowel regimen, ensure daily BM Heme: -hold DEBT COUNSELOR Plavix and ASA - assess for coagulopathy, [...] PRN and Respiratory Meds:calcium gluconate IVPB PRN (Radiator Tester from Rx) AND Ionized Calcium PRN AND [...] of care with consulted teams. Robbie Singh, FINANCIAL ASSISTANCE ADVISOR Date: 12/24/[phone] * Brando Izaguirre RN - 12/23/2016 6:49 [...] will request records for this surgery in [facility] and the subsequent surgery in [facility]. It was not clear if the [...] watch for hydrocephalus - OT/PT - Hold DEBT COUNSELOR Plavix (placed on after TIA) Sedation/Pain Management: Hx of Chronic back pain - Per Took 10/325mg Hydrocodone q6 hours DEBT COUNSELOR- hold for now, use PRNs if needed [...] bowel regimen, ensure daily BM Heme: hold DEBT COUNSELOR Plavix and ASA - assess for coagulopathy, [...] PRN and Respiratory Meds:calcium gluconate IVPB PRN (Radiator Tester from Rx) AND Ionized Calcium PRN AND [...] (125 lb 14.1 oz), SpO2 95 %. Ardmore coma score: E: 4 - Opens eyes [...] care 70 minutes Inocencio Haddad Date: 12/23/[phone] * Mikie Ravi RN - 12/23/2016 11:30 [...] arousal. Two attempted swallows were appreciated while REGULATORY AFFAIRS SPEC was providing oral care. Laryngeal elevation appeared [...] osteoporosis, arthritis, chronic back pain, admitted to [facility] with ICH on 12/22/16. This morning [...] MECH EXAM Oral Mech WFL*: No Oral [facility] Exam Summary*: Pt unable to follow any [...] ongoing dysphagia assessment and treatment. Therapist:SUZANNE Perez, CF-REGULATORY AFFAIRS SPEC [id number] Date:12/23/2016 * Kyle Christensen - 12/23/2016 8:30 AM CDT PHYSICAL THERAPY ASSESSMENT MOBILITY: Mobility Progressive Mobility Level: Passive sitting Level of Assistance: Assist X2 Assistive Device: None Time Tolerated: 0-10 minutes Activity Limited By: Mental Status Variability SUBJECTIVE: Subjective Significant hospital events: 66 y.o. female PMH TIA, dementia, osteoporosis, arthritis, chronic back pain, admitted to [facility] with ICH on 12/22/16. Mental / [...] ASSESSMENT NOTE Patient Name: Roxy Phillip Room/Bed: [facility] Admitting Diagnosis: large left front [...] osteoporosis, arthritis, chronic back pain, admitted to [facility] with Left frontal IPH on . [...] Accessibility: Not Accessible Prior Function Level Of [place]: Independent with ADLs and functional transfers;Needed assistance [...] improving. Mary Sultana DO Neurology, PGY-3 Pager [phone] * Robbie Singh, FINANCIAL ASSISTANCE ADVISOR - 12/23/2016 6:27 AM CDT Formatting of this note may be different from the original. Neuroscience Critical Care Progress Note Roxy Smith [facility] Admission Date: 12/22/2016 LOS: 1 day ASSESSMENT/PLAN [...] 500 mg BID - OT/PT - Hold DEBT COUNSELOR Plavix (placed on after TIA) Sedation/Pain Management: Hx of Chronic back pain - Per Took 10/325mg Hydrocodone q6 hours DEBT COUNSELOR- hold for now, use PRNs if needed [...] bowel regimen, ensure daily BM Heme: hold DEBT COUNSELOR Plavix and ASA - assess for coagulopathy, [...] PRN and Respiratory Meds:calcium gluconate IVPB PRN (Radiator Tester from Rx) AND Ionized Calcium PRN AND [...] (125 lb 14.1 oz), SpO2 95 %. Ardmore coma score: E: 4 - Opens eyes [...] of care with consulted teams Robbie Singh, FINANCIAL ASSISTANCE ADVISOR Date: 12/23/[phone] * Mikie Ravi, RN - 12/22/2016 6:36 [...] 12/22/2016 [place] AC=Airway clearance AM=Aerosolized medication BA=[place] aerosol DB&C=Deep breathe & cough FEV1=Forced expiratory volume in first second) IC=Inspiratory capacity LE=Lung expansion MDI=Metered dose inhaler Neb=Nebulizer O2=Oxygen Oxim=Oximetry PEFR=Peak expiratory flow rate OPERATIONS COORDINATOR=Rapid Response Team * Gurvinder Galicia - 12/22/2016 [...] osteoporosis, arthritis, chronic back pain, admitted to [facility] with ICH on 12/22/16. This morning [...] existing cavity. 3. Continued mass effect and [id number] midline shift, difficult to quantify due to patient motion. Therapist: SUZANNE Perez, CF-REGULATORY AFFAIRS SPEC [id number] Date: 12/22/2016 * Mikie Ravi RN [...] encounter H&P Notes * Luz Marina Obrien, MSN,FINANCIAL ASSISTANCE ADVISOR - 12/29/2016 9:55 AM CDT Formatting of [...] 0.5% Q4H PRN, calcium gluconate IVPB PRN (Radiator Tester from Rx) AND Ionized Calcium PRN AND Notify Physician Ongoing, fentaNYL citrate PF Q1H PRN, hydrALAZINE Q6H PRN, HYDROcodone/acetaminophen Q4H PRN, magnesium sulfate PRN AND Magnesium PRN * *AND Notify Physician Ongoing, ondansetron Q6H PRN, pancrelipase 20,000 Units / sodium bicarbonate 650 mg(#) PRN (Radiator Tester from Rx), potassium chloride SR PRN OR [...] H&P performed on 12/22/16. Luz Marina Obrien, MSN,FINANCIAL ASSISTANCE ADVISOR Pager [phone] * Marcos Herrmann MD - 12/22/2016 10:51 [...] new events noted, sign out obtained from night shift supervisor person ( nurse and ICU [...] PRN and Respiratory Meds:calcium gluconate IVPB PRN (Radiator Tester from Rx) AND Ionized Calcium PRN AND [...] optimize venous drainage Maintain normothermia, avoid hypoxemia, Dougherty appropriate osmotherapy ( i.e mannitol vs Hypertonic [...] at risk for aspiration. Social work and director case management for discharge planning and placement. Family Meeting and update: yes. Patient is unable to make his or her decisions, family updated during rounds. Goals of therapy: Addressed, Patient is a full code Nurses concerns addressed. Disposition/Family: Continue ICU care due to # 1 X Marcos Herrmann MD Tools And Parts Attendant, Departments of Neurology and Radiology Pager: [phone] Date: 12/22/2016 X * Angela Benavides, FINANCIAL ASSISTANCE ADVISOR - 12/22/2016 2:09 PM CDT Formatting of [...] is a 66 y.o. female transfer from [facility] with large left frontal parenchymal [...] existing cavity. 3. Continued mass effect and [id number] midline shift, difficult to quantify due to patient motion. 12/22 CTA head 1. No cerebral aneurysm or AVM is identified. 2. Stable large anterior left frontal intraparenchymal hematoma with unchanged rightward frontal midline shift and transalar herniation. Angela Benavides, FINANCIAL ASSISTANCE ADVISOR [phone] in this encounter Consult Notes * Elne Hernandez MD - 12/30/2016 12:57 PM CDT Formatting of this note may be different from the original. Acute Care Surgery Consult 12/30/2016 Patient: Roxy Phillip Admission Date: 12/22/2016, LOS: 8 days Admission Diagnosis: Intraparenchymal hemorrhage of brain (HCC) [I61.9] Date of Service: December 30, 2016 Reason for Consult: PEG tube placement Referring Provider: Antwan Guadarraam MD Attending Surgeon: Elen Hernandez MD Consult [...] and therefore needs a PEG tube for intermediate nutrition. Past Medical History: Diagnosis Date Arthritis Chronic back pain Dementia Osteoporosis TIA (transient ischemic attack) No current facility-administered medications on file prior to encounter. No current outpatient prescriptions on file prior to encounter. Past Surgical History: Procedure Laterality Date HX TONSILLECTOMY HYSTERECTOMY ORTHOPEDIC SURGERY [facility] CRANIECTOMY HMTMA SUPRATENTORIAL INTRACEREBRAL Left 12/24/2016 CRANIOTOMY [...] 12/30/2016336 Adam Nicholson MD Personal Pager: # [phone] ATTESTATION I personally observed the resident performing [...] a 66 y.o. female admitted to [facility] on 12/22/2016 with the following [...] removed prior to consideration for admission to [facility]. PT, OT, ST consulted to address deficits as below Impaired gait/mobility: DEBT COUNSELOR pt was independent at community level without assistive device Currently requiring dependent assist for bed mobility. Mechanical lift for transfers. Will benefit from continued work with PT to address mobility deficits Impaired ADL: DEBT COUNSELOR pt was independent Currently requiring total assist [...] hours while supine in bed, pressure relief [id number] in seated position, PRAFOs for pressure relief [...] concerns. Carla Graf MD Rehab Consult Pager: [phone] History of Present Illness Hospital Course: Roxy Phillip is a 66 y.o. female with PMH of dementia and TIA who presented via transfer from [facility] with large left frontal parenchymal [...] Laterality Date HX TONSILLECTOMY HYSTERECTOMY ORTHOPEDIC SURGERY VA CRANIECTOMY HMTMA SUPRATENTORIAL INTRACEREBRAL Left 12/24/2016 CRANIOTOMY EVACUATION HEMATOMA supine microscope, brainlab, tube system performed by Antwan Gudaarrama MD at Main OR/Periop Social History Social [...] Meds:acetaminophen Q4H PRN, calcium gluconate IVPB PRN (Radiator Tester from Rx) AND Ionized Calcium PRN AND Notify Physician Ongoing, fentaNYL citrate PF Q1H PRN, hydrALAZINE Q6H PRN, HYDROcodone/acetaminophen Q4H PRN, magnesium sulfate PRN AND Magnesium PRN AND Notify Physician Ongoing, ondansetron Q6H PRN, pancrelipase 20,000 Units/ sodium bicarbonate 650 mg(#) PRN (Radiator Tester from Rx), potassium chloride SR PRN OR [...] Shower (12/23/2016 3:00 PM) Patient lives in [place], [place] with her in a house with [...] for safety. TABS alarm and lapbelt on. REGULATORY AFFAIRS SPEC COGNITIVE EVALUATION SUMMARY PRAGMATICS: BEHAVIOR: AUDITORY COMPREHENSION: [...] arousal. Two attempted swallows were appreciated while REGULATORY AFFAIRS SPEC was providing oral care. Laryngeal elevation appeared [...] E43: Chronic illness/Severe malnutrition Estimated Calorie Needs: 0676-6749 (28-30 kcal/kg present wt 55.4kg) Estimated Protein Needs: 65-75 (1.2-1.4g/kg present wt 55.4kg) Oral Diet Order: NPO Comment: 66 y.o. female w/ PMH including dementia, chronic back pain, TIA; transferred to [facility] 12/22 with large left frontal parenchymal hemorrhage [...] reflux, choking and swallowing limiting recent intake DEBT COUNSELOR. Meets criteria for severe malnutrition in chronic [...] deficits with AMS;stroke Signs & Symptoms: NPO, REGULATORY AFFAIRS SPEC findings, orders for EN consult Goals: Initiate [...] arthritis , chronic back pain, admitted to [facility] with ICH on 12/22/16. Hospital and [...] - Electrolyte replacement protocol Prophylaxis Review: A)GI: PPI/S8Pariaag B) Lines: No C) Urinary Catheter: Yes; [...] osteoporosis, arthritis, chronic back pain, admitted to [facility] with ICH on 12/22/16. This morning [...] radiologic and diagnostic procedures reviewed. Abhijeet Chin, FINANCIAL ASSISTANCE ADVISOR Date: 12/22/[phone] I spent 60 minutes managing the care [...] days Todays Date: 01/06/2017 Plan: DC to [facility] via stretcher van at 1530. RN Report# [id number] ABBY reviewed EMR for POC and is [...] wearing mitts. ABBY reviewed with Frank that [facility] has said that pt would be appropriate for IPR level of care. Additional education provided to Frank regarding IPR level of care , especially in comparison with SNF level of care. Frank reported that he is 90% certain that he and family would have preference for DC plan to [facility] though he wishes to discuss [...] that he plans to go to a [employer] game tomorrow with his nephew for some time away from the hospital. ABBY received phone call from Frank who reported that after discuss with Soledad and his son, all family is in agreement with plan for DC to [facility]. ABBY answered all necessary questions. ABBY provided [...] Rehabilitation ABBY discussed pt with Yanelis at [facility]. ABBY provided update to Yanelis that family has officially decided on DC plan to [facility]. Ilan mattson to brain picker pt at 1530. RN Report# [id number]. ABBY provided update to primary team and [...] Disposition: Inpatient Rehab Facility (IRF) Inpatient Rehab: [facility] ([phone]) ? [facility] Betsy Peña LMSW Phone: [phone] * Case Mgmt DC Plan - Mattie [...] RN back with final determination on placement. [id number] - Per Betsy (ABBY), patient's family would [...] IP rehab unit. Ryan, Inpatient Admissions Nurse/Rehab. ([id number] or [phone]). * Care Plan - Angelica Nova, VANESSA [...] ? Discharge Planning Discharge Planning: Inpatient Rehabilitation, [facility] ABBY let a message for Yanelis at [facility], ABBY requested phone call back. ABBY returned a call from Nena Randolph, to provide update on pt. Tomasa requested to be kept update on pt if pt decides to dc there. Tomasa's contact number is [phone] Update 8247 ABBY received a page from Yanelis at [facility] letting ABBY know Yanelis had paged rehab consult team for f/u. ABBY received a page from [facility] letting ABBY know pt would be reviewed again tomorrow but it was looking as if pt was more appropriate for SNF at this time. ? Medication Needs ? Financial ? Legal ? Other Disposition ? Discharge Preparation Type of Residence: Private residence Patient expects to be discharged to: [facility] Was the patient receiving home care services?: No ? Expected Discharge Expected Discharge Date: 01/06/17 ? Discharge Disposition Izabella Roqeu [phone] * Care Plan - Shakeel Brito RN [...] Meds:acetaminophen Q4H PRN, calcium gluconate IVPB PRN (Radiator Tester from Rx) AND Ionized Calcium PRN AND Notify Physician Ongoing, hydrALAZINE Q6H PRN, HYDROcodone/acetaminophen Q4H PRN, magnesium sulfate PRN AND Magnesium PRN AND Notify Physician Ongoing, ondansetron Q6H PRN, pancrelipase 20,000 Units/ sodium bicarbonate 650 mg(#) PRN (Radiator Tester from Rx), potassium chloride SR PRN OR [...] note may be different from the original. [facility] [address] [place], [place] [address] PATIENT NAME: ROXY PHILLIP MR#/PT#: [id number] Page 2 OPERATIVE REPORT DATE OF OPERATION: 01/02/2017 SURGEON: Jong Hankins MD JOB ANALYSIS MANAGER(S): Calvin Lundberg MD PREOPERATIVE DIAGNOSIS: Dysphagia. POSTOPERATIVE [...] and removed completely by the endoscopist. A 24-Cambodian PEG tube was then secured to the [...] There were no specimens removed. DRAINS: Include 24-Cambodian percutaneous endoscopic gastrostomy. COMPLICATIONS: None. Jong Hankins MD ATTESTATION I performed this procedure with a resident. Staff name: Jong Hankins MD Date: 01/08/2017 Dictated by: Calvin Lundberg MD / MED /[id number] P cc: - Jong Hankins MD * [...] PACU - stable Jong Hankins MD Pager [phone] * Case Mgmt DC Plan - Betsy Peña - 01/01/2017 4:18 PM CDT Case Management Progress Note NAME:Roxy Phillip :1950 AGE: 66 y.o. ADMISSION DATE: 12/22/2016 DAYS ADMITTED: LOS: 10 days Todays Date: 01/01/2017 Plan: DC planning to inpt setting. ABBY reviewed EMR for POC and is following for assistance with DC planning. SW discussed pt with neurosurgery team. FINANCIAL ASSISTANCE ADVISOR notes marked improvement in pt's alertness. Peg was not able to be placed yesterday. Plan for peg placement Thursday. Videoswallow scheduled for Thursday. Disucssion of most appropriate level of care with FINANCIAL ASSISTANCE ADVISOR. FINANCIAL ASSISTANCE ADVISOR in agreement with plan for rehab team follow up on Thursday. Interventions ? Support Support: Pt/Family Updates re:POC or DC Plan, Counseling for Adaptation to Illness ABBY met with pt's Frank in room. Frank indicated that he would like for pt to have more aggressive therapies than [facility] offers. ABBY reviewed new plan for rehab team to follow up with most appropriate level of care recommendations on Thursday. Frank in agreement and voiced that he would want to got to IPR at [facility] in [place], [place]. ABBY provided education that this is actually a SNF. Frank indicated that he thought it was a higher level of care than [facility] due to having Rehab in the name. [...] pt has received while at [facility]. He denied further needs at this time. ? Info or Referral ? Discharge Planning Discharge Planning: Inpatient Rehabilitation, [facility] ABBY followed up on referral at [facility]. Automobile Radio Repairer confirmed receipt of the referral but noted that admissions staff were out of the office but would call ABBY back. ABBY discussed possible rehab team follow up on Thursday with Yanelis at Rehab. In agreement. ? Medication Needs ? Financial ? Legal ? Other Disposition ? Discharge Preparation Type of Residence: Private residence Patient expects to be discharged to: [facility] Facility Was the patient receiving home care services?: No ? Expected Discharge Expected Discharge Date: 01/06/17 ? Discharge Disposition ? Next Level Care Betsy Peña LMSW Phone: [phone] * Case Mgmt DC Plan - Alison Acosta - 12/31/2016 4:11 PM CDT Request to Send Referral Received request from Betsy Peña [facility] to send referral to the following facility: [facility] [address] [place] [id number] Alison Acosta Manager Lvn For additional assistance please contact [facility] *[phone] * Case Mgmt DC Plan - Betsy Peña - 12/31/2016 3:59 PM CDT Case Management Progress Note NAME:Roxy Phillip :1950 AGE: 66 y.o. ADMISSION DATE: 12/22/2016 DAYS ADMITTED: LOS: 9 days Todays Date: 12/31/2016 Plan: Referral pending at [facility] SNF. ABBY reviewed EMR for POC and is following for assistance with DC planning. ABBY discussed pt with neurosurgery team. Team reports plan for peg tube placement today. Anticipate stability for DC at the end of the week. Interventions ? Support Support: Pt/Family Updates re:POC or DC Plan, Counseling for Adaptation to Illness ABBY met with pt's Frank in [facility] as pt working with [facility]. Frank reported that their dtr Soledad has been looking into SNFs for pt and has identified one of interest located in [place], [place]. Frank was unable to remember the name of the facility. Frank inquired into whether Rehab was an option for pt. ABBY educated that presently, the recommendation remains for SNF level of care. Frank verbalized understanding. Frank inquired into transportation to [place] should this be the place that pt ends up DCing to. ABBY reviewed that ABBY would like to discuss this with PT and other parties to ensure that most appropriate plan is arranged. Plan for continued discussion on transportation for pt tomorrow. Frank in agreement. Frank agreeable to plan of ABBY calling Sol[facility] to find out name of facility (suspect it is [facility] from google search) and send referral accordingly. ABBY phoned Soledad who confirmed that name of facility she is most interested in presently is [facility]. She is also agreeable to referral being sent there. She noted that she is trying to find the best care for pt but is unfamiliar with the facilities in [place]. ABBY provided education on Medicare Fpc Compare tool which Soledad indicated she would review this evening. She reported she is agreeable to ABBY follow up tomorrow to see if there are any additional referrals she would like sent. Plan also for ABBY to provide Medicare Fpc compare list to Frank as well as the ratings for [facility] ( not on the initial list as it is over 50 miles from [place], [place]). ABBY presented to pt's room and reviewed with Frank the discussion with Soledad. ABBY provided the care home compare list for [place] and information specific to [facility]. Frank was very appreciative. ? Info or Referral ? Discharge Planning Discharge Planning: [facility] Facility ABBY discussed pt with Yanelis at Rehab. ABBY discussed pt with PT. Even with pt's progress with therapies, PT still believes SNF is most appropriate for pt. ABBY tasked PELT DROPPER to send referral to [facility] SNF. ? Medication Needs ? Financial ? Legal ? Other Disposition ? Discharge Preparation Type of Residence: Private residence Patient expects to be discharged to: [facility] Facility Was the patient receiving home care services?: No ? Expected Discharge Expected Discharge Date: 01/02/17 ? Discharge Disposition ? Next Level Care Betsy Peña LMSW Phone: [phone] * Case Mgmt DC Plan - Betsy [...] residence Patient expects to be discharged to: [facility] Facility Was the patient receiving home care services?: No ? Expected Discharge Expected Discharge Date: 01/02/17 ? Discharge Disposition ? Next Level Care Betsyelsie Peña LMSW Phone: [phone] * Critical Results - Delaney Lechuga RN - 12/27/2016 3:15 PM CDT Critical result or procedure called (document test and value, and read back): Blood culture drawn 12/26/16 from Left Forearm grew gram + cocci resembling staph Time MD/STONECUTTER ASSISTANT Notified: 1510 MD/STONECUTTER ASSISTANT Name: Terry Chin MD/STONECUTTER ASSISTANT Response/Orders Given: No new orders at this [...] doing well and had just come from [facility] to obtain more necessities for while he is staying at [facility] with pt. Frank reported that his nieces are flying in this weekend and his dtr is coming up from [employer] this afternoon for the remainder of the weekend. Frank endorsed feeling well supported during this time. Denied needs prior to the weekend. ? Info or Referral ? Discharge Planning ? Medication Needs ? Financial ? Legal ? Other Disposition ? Discharge Preparation Type of Residence: Private residence Patient expects to be discharged to: [facility] Facility Was the patient receiving home care services?: No ? Expected Discharge Expected Discharge Date: 12/30/16 ? Discharge Disposition ? Next Level Care Betsy Peña [facility] Phone: [phone] * Anesthesia Post Op Day 1 - Yanley Lindsey SRNA - 12/25/2016 10:36 AM CDT [...] PRN and Respiratory Meds:calcium gluconate IVPB PRN (Radiator Tester from Rx) AND Ionized Calcium PRN AND [...] different from the original. NEUROSURGERY OPERATIVE REPORT [facility] [address] [place], [place] [address] PATIENT NAME: Roxy Phillip MR#/PT#: [id number] DATE OF OPERATION: 12/25/16 SURGEON: Antwan Guadarrama MD CO-SURGEON: None JOB ANALYSIS MANAGER(S): Suman Franco MD PREOPERATIVE DIAGNOSIS: 1. Intraparenchymal hemorrhage of brain (HCC) [I61.9] POSTOPERATIVE DIAGNOSIS: Same. OPERATIVE PROCEDURE: 1. Left frontal burrhole craniotomy for evacuation of ICH 2. Use of neuronavigation for stereotactic implantation of EVD ANESTHESIA: General INDICATIONS FOR OPERATIVE PROCEDURE: Please see full dictated H and P. Briefly, Roxy Phillip is a 66 y.o. female transfer from [facility] with large left frontal parenchymal [...] padded. Patient's head was placed in the [place] cranial tongs secured the bed with the bed attachment. The head was turned towards the right side in the apparatus for exposure of the left frontal region at the highest point of the exposure. BrainLab reference star was attached to the [place] in the patient's preoperative CT was utilized [...] silk stitch. Patient was removed from the [place] cranial tongs and taken to the ICU [...] I performed this procedure with a resident. [facility] Staff name: Antwan Guadarrama MD [...] to bring his medications to [facility] and had not taken any for a couple of days. He began feeling poorly this morning. Per RN report, Frank's medications are being phoned to Pharmacy so he can start taking them again. SW met with Frank in [facility] while pt was receiving cares from staff in preparation for surgery this afternoon. SW offered emotional support to Frank. Frank shared with SW that he had forgotten his medications. SW reviewed need for self-care while at [facility]. SW inquired into Frank's ongoing support system. Frank reported that his dtr is still at [facility] which he finds very helpful. He also [...] Next Level Care Betsy Peña LMSW Phone: [phone] * Case Mgmt DC Plan - Betsy [...] Emergency Contact Information Primary Emergency Contact: [place] [address] [facility] Relation: Spouse Secondary Emergency Contact: Soledad [facility] Relation: Daughter DPOA None. Transportation Does the patient need discharge transport arranged?: No Transportation Name, Phone and Availability #1: Soledad ([phone]) Does the patient use Medicaid Transportation?: No [...] (BCBS) Additional Coverage: RX (Fills medications at [facility] in [place]. Reports medications are affordable.) SW scanned BCBS card and tubed to admitting. ? Source of Income Source Of Income: Other snf income ? Financial Assistance Needed? No Current/Previous [...] ? Outpatient Therapy PT: No OT: No REGULATORY AFFAIRS SPEC: No ? SNF/NH SNF: No NH: No [...] Drug Use No Betsy Peña LMSW Phone: [phone] in this encounter Plan of Treatment Not [...] MG/DL Specimen Performing Laboratory MAIN LAB [address] [place] [address] * POC GLUCOSE (01/06/2017 7:35 AM) Component Value Ref Range Glucose, POC 226 (H) 70 - 100 MG/DL Specimen Performing Laboratory MAIN LAB [address] [place] [address] * CBC AND DIFF (01/06/2017 5:54 AM) [...] K/UL Specimen Performing Laboratory Blood MAIN LAB [address] [place] [address] * BASIC METABOLIC PANEL (01/06/2017 5:54 AM) [...] questions. Specimen Performing Laboratory Blood MAIN LAB [address] [place], [place] [id number] * PHOSPHORUS (01/06/2017 5:54 AM) Component Value Ref Range Phosphorus 3.6 2.0 - 4.0 MG/DL Specimen Performing Laboratory Blood MAIN LAB [address] [place], [place] [id number] * MAGNESIUM (01/06/2017 5:54 AM) Component Value Ref Range Magnesium 2.4 1.6 - 2.6 mg/dL Specimen Performing Laboratory Blood MAIN LAB [address] [place], [place] [id number] * IONIZED CALCIUM (01/06/2017 5:54 AM) Component Value Ref Range Ionized Calcium 1.20 1.0 - 1.3 MMOL/L Specimen Performing Laboratory Blood MAIN LAB [address] [place], [place] [id number] * POC GLUCOSE (01/06/2017 2:46 AM) Component Value Ref Range Glucose, POC 194 (H) 70 - 100 MG/DL Specimen Performing Laboratory MAIN LAB [address] [place], [place] [id number] * POC GLUCOSE (01/05/2017 8:30 PM) Component Value Ref Range Glucose, POC 209 (H) 70 - 100 MG/DL Specimen Performing Laboratory MAIN LAB [address] [place], [place] [id number] * POC GLUCOSE (01/05/2017 6:08 PM) Component Value Ref Range Glucose, POC 176 (H) 70 - 100 MG/DL Specimen Performing Laboratory [facility] MAIN [facility] [address] [place] [address] * SWALLOW MOTION SERIES (01/05/2017 2:45 PM) [...] Performing Laboratory Urine [facility] MAIN [facility] [address] [place] [address] Organism Antibiotic Method Susceptibility >100,000 organisms/ml Nitrofurantoin [...] LABEL Specimen Performing Laboratory Urine MAIN LAB [address] [place] [address] * URINALYSIS MICROSCOPIC REFLEX TO CULTURE (01/05/2017 [...] 0 - 5 Specimen Performing Laboratory Urine [facility] [address] [place] [address] * URINALYSIS DIPSTICK REFLEX TO CULTURE (01/05/2017 1:11 PM) Component Value Ref Range Color,UA YELLOW Turbidity,UA 1+ (A) CLEAR-CLEAR Specific [place]-Urine 1.021 1.003 - 1.035 pH,UA 6.0 5.0 [...] result. Specimen Performing Laboratory Urine MAIN LAB [address] [place] [address] * POC GLUCOSE (01/05/2017 12:21 PM) Component Value Ref Range Glucose, POC 319 (H) 70 - 100 MG/DL Specimen Performing Laboratory MAIN LAB [address] [place] [address] * POC GLUCOSE (01/05/2017 8:19 AM) Component Value Ref Range Glucose, POC 170 (H) 70 - 100 MG/DL Specimen Performing Laboratory MAIN LAB [address] [place] [address] * PHOSPHORUS (01/05/2017 5:35 AM) Component Value Ref Range Phosphorus 3.7 2.0 - 4.0 MG/DL Specimen Performing Laboratory Blood MAIN LAB [address] [place] [address] * MAGNESIUM (01/05/2017 5:35 AM) Component Value Ref Range Magnesium 2.6 1.6 - 2.6 mg/dL Specimen Performing Laboratory Blood MAIN LAB [address] [place] [address] * CBC AND DIFF (01/05/2017 5:35 AM) [...] Specimen Performing Laboratory Blood MAIN LAB [address] [place] [address] * BASIC METABOLIC PANEL (01/05/2017 5:35 AM) [...] Pharmacist for questions. Specimen Performing Laboratory Blood [facility] [address] [place] [address] * IONIZED CALCIUM (01/05/2017 4:00 AM) Component Value Ref Range Ionized Calcium 1.20 1.0 - 1.3 MMOL/L Specimen Performing Laboratory Blood [facility] [address] [place] [address] * POC GLUCOSE (01/05/2017 3:43 AM) Component Value Ref Range Glucose, POC 256 (H) 70 - 100 MG/DL Specimen Performing Laboratory [facility] [address] [place] [address] * POC GLUCOSE (01/04/2017 8:23 PM) Component Value Ref Range Glucose, POC 224 (H) 70 - 100 MG/DL Specimen Performing Laboratory [facility] [address] [place] [address] * POC GLUCOSE (01/04/2017 4:35 PM) Component Value Ref Range Glucose, POC 241 (H) 70 - 100 MG/DL Specimen Performing Laboratory [facility] [address] [place] [address] * POC GLUCOSE (01/04/2017 12:44 PM) Component Value Ref Range Glucose, POC 272 (H) 70 - 100 MG/DL Specimen Performing Laboratory [facility] [address] [place] [address] * POC GLUCOSE (01/04/2017 7:55 AM) Component Value Ref Range Glucose, POC 241 (H) 70 - 100 MG/DL Specimen Performing Laboratory [facility] [address] [place] [address] * PHOSPHORUS (01/04/2017 4:52 AM) Component Value Ref Range Phosphorus 3.8 2.0 - 4.0 MG/DL Specimen Performing Laboratory Blood [facility] [address] [place] [address] * MAGNESIUM (01/04/2017 4:52 AM) Component Value Ref Range Magnesium 2.6 1.6 - 2.6 mg/dL Specimen Performing Laboratory Blood MAIN LAB [address] [place] [address] * IONIZED CALCIUM (01/04/2017 4:52 AM) Component Value Ref Range Ionized Calcium 1.20 1.0 - 1.3 MMOL/L Specimen Performing Laboratory Blood MAIN LAB [address] [place] [address] * CBC AND DIFF (01/04/2017 4:52 AM) [...] Specimen Performing Laboratory Blood MAIN LAB [address] [place] [address] * BASIC METABOLIC PANEL (01/04/2017 4:52 AM) [...] Pharmacist for questions. Specimen Performing Laboratory Blood [facility] [address] [place] [address] * POC GLUCOSE (01/04/2017 4:09 AM) Component Value Ref Range Glucose, POC 194 (H) 70 - 100 MG/DL Specimen Performing Laboratory [facility] [address] [place] [address] * POC GLUCOSE (01/03/2017 8:39 PM) Component Value Ref Range Glucose, POC 124 (H) 70 - 100 MG/DL Specimen Performing Laboratory [facility] [address] [place], [place] [id number] * POC GLUCOSE (01/03/2017 4:53 PM) Component Value Ref Range Glucose, POC 142 (H) 70 - 100 MG/DL Specimen Performing Laboratory [facility] [address] [place] [address] * POC GLUCOSE (01/03/2017 12:22 PM) Component Value Ref Range Glucose, POC 139 (H) 70 - 100 MG/DL Specimen Performing Laboratory [facility] [address] [place], [place] [id number] * IONIZED CALCIUM (01/03/2017 9:48 AM) Component Value Ref Range Ionized Calcium 1.18 1.0 - 1.3 MMOL/L Specimen Performing Laboratory [facility] [address] [place], [place] [id number] * PHOSPHORUS (01/03/2017 9:33 AM) Component Value Ref Range Phosphorus 5.0 (H) 2.0 - 4.0 MG/DL Specimen Performing Laboratory Blood [facility] [address] [place], [place] [id number] * MAGNESIUM (01/03/2017 9:33 AM) Component Value Ref Range Magnesium 2.8 (H) 1.6 - 2.6 mg/dL Specimen Performing Laboratory Blood [facility] [address] [place], [place] [id number] * CBC AND DIFF (01/03/2017 9:33 AM) [...] Specimen Performing Laboratory Blood MAIN LAB [address] [place] [address] * BASIC METABOLIC PANEL (01/03/2017 9:33 AM) [...] Specimen Performing Laboratory Blood MAIN LAB [address] [place] [address] * POC GLUCOSE (01/03/2017 8:32 AM) Component Value Ref Range Glucose, POC 133 (H) 70 - 100 MG/DL Specimen Performing Laboratory [facility] [address] [place] [address] * POC GLUCOSE (01/02/2017 9:10 PM) Component Value Ref Range Glucose, POC 116 (H) 70 - 100 MG/DL Specimen Performing Laboratory [facility] [address] [place] [address] * POC GLUCOSE (01/02/2017 4:44 PM) Component Value Ref Range Glucose, POC 137 (H) 70 - 100 MG/DL Specimen Performing Laboratory [facility] [address] [place] [address] * POC GLUCOSE (01/02/2017 11:36 AM) Component Value Ref Range Glucose, POC 197 (H) 70 - 100 MG/DL Specimen Performing Laboratory [facility] [address] [place], [place] [id number] * POC GLUCOSE (01/02/2017 8:53 AM) Component Value Ref Range Glucose, POC 146 (H) 70 - 100 MG/DL Specimen Performing Laboratory [facility] [address] [place], [place] [id number] * IONIZED CALCIUM (01/02/2017 5:00 AM) Component Value Ref Range Ionized Calcium 0.99 (L)Comment: CHECKED 1.0 - 1.3 MMOL/L Specimen Performing Laboratory Blood [facility] [address] [place], [place] [id number] * PHOSPHORUS (01/02/2017 4:59 AM) Component Value Ref Range Phosphorus 4.5 (H) 2.0 - 4.0 MG/DL Specimen Performing Laboratory Blood [place] [id number] * MAGNESIUM (01/02/2017 4:59 AM) Component Value Ref Range Magnesium 2.7 (H) 1.6 - 2.6 mg/dL Specimen Performing Laboratory Blood [facility] [address] [place] [address] * CBC AND DIFF (01/02/2017 4:59 AM) [...] Specimen Performing Laboratory Blood MAIN LAB [address] [place] [address] * BASIC METABOLIC PANEL (01/02/2017 4:59 AM) [...] Specimen Performing Laboratory Blood MAIN LAB [address] [place] [address] * POC GLUCOSE (01/01/2017 8:32 PM) Component Value Ref Range Glucose, POC 182 (H) 70 - 100 MG/DL Specimen Performing Laboratory MAIN LAB [address] [place] [address] * POC GLUCOSE (01/01/2017 5:49 PM) Component Value Ref Range Glucose, POC 221 (H) 70 - 100 MG/DL Specimen Performing Laboratory MAIN LAB [address] [place] [address] * POC GLUCOSE (01/01/2017 12:02 PM) Component Value Ref Range Glucose, POC 189 (H) 70 - 100 MG/DL Specimen Performing Laboratory [facility] [address] [place] [address] * POC GLUCOSE (01/01/2017 8:06 AM) Component Value Ref Range Glucose, POC 231 (H) 70 - 100 MG/DL Specimen Performing Laboratory [facility] [address] [place] [address] * PHOSPHORUS (01/01/2017 5:07 AM) Component Value Ref Range Phosphorus 3.5 2.0 - 4.0 MG/DL Specimen Performing Laboratory Blood [facility] [address] [place] [address] * MAGNESIUM (01/01/2017 5:07 AM) Component Value Ref Range Magnesium 2.6 1.6 - 2.6 mg/dL Specimen Performing Laboratory Blood [facility] [address] [place] [address]87 * IONIZED CALCIUM (01/01/2017 5:07 AM) Component Value Ref Range Ionized Calcium 1.15 1.0 - 1.3 MMOL/L Specimen Performing Laboratory Blood [facility] [address] [place], [place] [id number] * CBC AND DIFF (01/01/2017 5:07 AM) [...] - 0.20 K/UL Specimen Performing Laboratory Blood [facility] [address] [place] [address] * BASIC METABOLIC PANEL (01/01/2017 5:07 AM) [...] Pharmacist for questions. Specimen Performing Laboratory Blood [facility] [address] [place] [address] * POC GLUCOSE (01/01/2017 4:00 AM) Component Value Ref Range Glucose, POC 191 (H) 70 - 100 MG/DL Specimen Performing Laboratory [facility] [address] [place] [address] * POC GLUCOSE (12/31/2016 8:29 PM) Component Value Ref Range Glucose, POC 132 (H) 70 - 100 MG/DL Specimen Performing Laboratory MAIN LAB [address] [place] [address] * POC GLUCOSE (12/31/2016 5:21 PM) Component Value Ref Range Glucose, POC 149 (H) 70 - 100 MG/DL Specimen Performing Laboratory [facility] [address] [place] [address] * POC GLUCOSE (12/31/2016 1:11 PM) Component Value Ref Range Glucose, POC 162 (H) 70 - 100 MG/DL Specimen Performing Laboratory MAIN LAB [address] [place] [address] * POC GLUCOSE (12/31/2016 8:53 AM) Component Value Ref Range Glucose, POC 134 (H) 70 - 100 MG/DL Specimen Performing Laboratory MAIN LAB [address] [place] [address] * PHOSPHORUS (12/31/2016 5:25 AM) Component Value Ref Range Phosphorus 3.5 2.0 - 4.0 MG/DL Specimen Performing Laboratory Blood MAIN LAB [address] [place] [address] * MAGNESIUM (12/31/2016 5:25 AM) Component Value Ref Range Magnesium 2.3 1.6 - 2.6 mg/dL Specimen Performing Laboratory Blood MAIN LAB [address] [place], [place] [id number] * IONIZED CALCIUM (12/31/2016 5:25 AM) Component Value Ref Range Ionized Calcium 1.12 1.0 - 1.3 MMOL/L Specimen Performing Laboratory Blood MAIN LAB [address] [place], [place] [id number] * CBC AND DIFF (12/31/2016 5:25 AM) [...] K/UL Specimen Performing Laboratory Blood MAIN LAB [address] [place], [place] [id number] * BASIC METABOLIC PANEL (12/31/2016 5:25 AM) [...] Pharmacist for questions. Specimen Performing Laboratory Blood [facility] [address] [place] [address] * POC GLUCOSE (12/31/2016 4:11 AM) Component Value Ref Range Glucose, POC 121 (H) 70 - 100 MG/DL Specimen Performing Laboratory [facility] [address] [place] [address] 80780 * POC GLUCOSE (12/30/2016 8:41 PM) Component Value Ref Range Glucose, POC 151 (H) 70 - 100 MG/DL Specimen Performing Laboratory [facility] [address] [place] [address] * POC GLUCOSE (12/30/2016 5:43 PM) Component Value Ref Range Glucose, POC 159 (H) 70 - 100 MG/DL Specimen Performing Laboratory [facility] [address] [place] [address] * US DOPPLER VENOUS BILATERAL (12/30/2016 1:20 [...] MG/DL Specimen Performing Laboratory MAIN LAB [address] [place] [address] * POC GLUCOSE (12/30/2016 7:51 AM) Component Value Ref Range Glucose, POC 143 (H) 70 - 100 MG/DL Specimen Performing Laboratory MAIN LAB [address] [place] [address] * IONIZED CALCIUM (12/30/2016 3:37 AM) Component Value Ref Range Ionized Calcium 1.01 1.0 - 1.3 MMOL/L Specimen Performing Laboratory Blood MAIN LAB [address] [place] [address] * PHOSPHORUS (12/30/2016 3:37 AM) Component Value Ref Range Phosphorus 4.3 (H) 2.0 - 4.0 MG/DL Specimen Performing Laboratory Blood MAIN LAB [address] [place] [address] * MAGNESIUM (12/30/2016 3:37 AM) Component Value Ref Range Magnesium 2.2 1.6 - 2.6 mg/dL Specimen Performing Laboratory Blood MAIN LAB [address] [place] [address] * CBC AND DIFF (12/30/2016 3:37 AM) [...] Specimen Performing Laboratory Blood MAIN LAB [address] [place] [address] * BASIC METABOLIC PANEL (12/30/2016 3:37 AM) [...] questions. Specimen Performing Laboratory Blood MAIN LAB [address] [place] [address] * POC GLUCOSE (12/30/2016 3:27 AM) Component Value Ref Range Glucose, POC 196 (H) 70 - 100 MG/DL Specimen Performing Laboratory [facility] [address] [place] [address] 11874 * POC GLUCOSE (12/29/2016 8:38 PM) Component Value Ref Range Glucose, POC 148 (H) 70 - 100 MG/DL Specimen Performing Laboratory MAIN LAB [address] [place] [address] 22356 * POC GLUCOSE (12/29/2016 5:25 PM) Component Value Ref Range Glucose, POC 165 (H) 70 - 100 MG/DL Specimen Performing Laboratory MAIN LAB [address] [place] [address] 6[address] * SODIUM (12/29/2016 4:55 PM) Component Value Ref Range Sodium 142 137 - 147 MMOL/L Specimen Performing Laboratory Blood [facility] [address] [place] [address] * POC GLUCOSE (12/29/2016 12:04 PM) Component Value Ref Range Glucose, POC 109 (H) 70 - 100 MG/DL Specimen Performing Laboratory [facility] [address] [place] [address] * IR ARTERIOGRAM NEURO (12/29/2016 11:09 AM) [...] recurrent hemorrhage in the left frontal region. SQUADRON WORKER. Laurent JOB ANALYSIS MANAGER. 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 Local with Sedation PROCEDURE. Ultrasound [...] insure maintain an air free system. A 5-Cambodian diagnostic catheter was introduced through the sheath. Utilizing a combination of roadmap, guidewire and direct catheter access techniques, a 5 Cambodian diagnostic catheter was used to perform diagnostic [...] recurrent hemorrhage in the left frontal region. SQUADRON WORKER. Laurent JOB ANALYSIS MANAGER. 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 Local with Sedation PROCEDURE. Ultrasound [...] insure maintain an air free system. A 5-Cambodian diagnostic catheter was introduced through the sheath. Utilizing a combination of roadmap, guidewire and direct catheter access techniques, a 5 [place]ian diagnostic catheter was used to perform diagnostic [...] 100 MG/DL Specimen Performing Laboratory MAIN LAB [address] [place] [address] * IONIZED CALCIUM (12/29/2016 4:23 AM) Component Value Ref Range Ionized Calcium 1.11 1.0 - 1.3 MMOL/L Specimen Performing Laboratory Blood MAIN LAB [address] [place] [address] * PHOSPHORUS (12/29/2016 4:23 AM) Component Value Ref Range Phosphorus 3.5 2.0 - 4.0 MG/DL Specimen Performing Laboratory Blood MAIN LAB [address] [place] [address] * MAGNESIUM (12/29/2016 4:23 AM) Component Value Ref Range Magnesium 2.2 1.6 - 2.6 mg/dL Specimen Performing Laboratory Blood MAIN LAB [address] [place] [address] * CBC AND DIFF (12/29/2016 4:23 AM) [...] Specimen Performing Laboratory Blood MAIN LAB [address] [place] [address] * BASIC METABOLIC PANEL (12/29/2016 4:23 AM) [...] questions. Specimen Performing Laboratory Blood MAIN LAB [address] [place] [address] * POC GLUCOSE (12/29/2016 4:08 AM) Component Value Ref Range Glucose, POC 145 (H) 70 - 100 MG/DL Specimen Performing Laboratory MAIN LAB [address] [place] [address] * SODIUM (12/28/2016 9:53 PM) Component Value Ref Range Sodium 147 137 - 147 MMOL/L Specimen Performing Laboratory Blood MAIN LAB [address] [place] [address] * POC GLUCOSE (12/28/2016 8:30 PM) Component Value Ref Range Glucose, POC 134 (H) 70 - 100 MG/DL Specimen Performing Laboratory MAIN LAB [address] [place] [address] * MRI HEAD WO/W CONTRAST (12/28/2016 7:15 [...] MG/DL Specimen Performing Laboratory MAIN LAB [address] [place] [address] * SODIUM (12/28/2016 4:18 PM) Component Value Ref Range Sodium 152 (H) 137 - 147 MMOL/L Specimen Performing Laboratory Blood MAIN LAB [address] [place] [address] * MAGNESIUM (12/28/2016 1:09 PM) Component Value Ref Range Magnesium 2.2 1.6 - 2.6 mg/dL Specimen Performing Laboratory Blood MAIN LAB [address] [place] [address] * POTASSIUM (12/28/2016 1:09 PM) Component Value Ref Range Potassium 4.1 3.5 - 5.1 MMOL/L Specimen Performing Laboratory Blood MAIN LAB [address] [place] [address] * POC GLUCOSE (12/28/2016 12:22 PM) Component Value Ref Range Glucose, POC 141 (H) 70 - 100 MG/DL Specimen Performing Laboratory MAIN LAB [address] [place] [address] * CTA NECK WO/W CONTRAST+POST P (12/28/2016 [...] the pharynx. Visualized major branches of the [place] of [place] are patent without evidence of [...] the pharynx. Visualized major branches of the [place] are patent without evidence of [...] MMOL/L Specimen Performing Laboratory Blood MAIN LAB [address] [place] [address] * SODIUM (12/28/2016 9:53 AM) Component Value Ref Range Sodium 142 137 - 147 MMOL/L Specimen Performing Laboratory Blood [facility] [address] [place] [address] * POC GLUCOSE (12/28/2016 9:04 AM) Component Value Ref Range Glucose, POC 170 (H) 70 - 100 MG/DL Specimen Performing Laboratory [facility] [address] [place] [address] * POC GLUCOSE (12/28/2016 4:02 AM) Component Value Ref Range Glucose, POC 159 (H) 70 - 100 MG/DL Specimen Performing Laboratory [facility] [address] [place], [place] [id number] * IONIZED CALCIUM (12/28/2016 3:35 AM) Component Value Ref Range Ionized Calcium 1.09 1.0 - 1.3 MMOL/L Specimen Performing Laboratory Blood [facility] [address] [place], [place] [id number] * PHOSPHORUS (12/28/2016 3:35 AM) Component Value Ref Range Phosphorus 3.7 2.0 - 4.0 MG/DL Specimen Performing Laboratory Blood [facility] [address] [place], [place] [id number] * MAGNESIUM (12/28/2016 3:35 AM) Component Value Ref Range Magnesium 1.9 1.6 - 2.6 mg/dL Specimen Performing Laboratory Blood [facility] [address] [place] [address] * CBC AND DIFF (12/28/2016 3:35 AM) [...] K/UL Specimen Performing Laboratory Blood MAIN LAB [address] [place] [address] * BASIC METABOLIC PANEL (12/28/2016 3:35 AM) [...] questions. Specimen Performing Laboratory Blood MAIN LAB [address] [place] [address] * SODIUM (12/27/2016 11:04 PM) Component Value Ref Range Sodium 142 137 - 147 MMOL/L Specimen Performing Laboratory Blood MAIN LAB [address] [place] [address] * PROCALCITONIN (12/27/2016 11:04 PM) Component Value Ref Range Procalcitonin <0.05 <0.10 NG/ML Specimen Performing Laboratory Blood MAIN LAB [address] [place] [address] * POC GLUCOSE (12/27/2016 9:00 PM) Component Value Ref Range Glucose, POC 151 (H) 70 - 100 MG/DL Specimen Performing Laboratory MAIN LAB [address] [place] [address] * POC GLUCOSE (12/27/2016 5:53 PM) Component Value Ref Range Glucose, POC 135 (H) 70 - 100 MG/DL Specimen Performing Laboratory [facility] MAIN [facility] [address] [place] [address] * SODIUM (12/27/2016 4:39 PM) Component Value Ref Range Sodium 145 137 - 147 MMOL/L Specimen Performing Laboratory Blood [facility] MAIN [facility] [address] [place] [address] * PROCALCITONIN (12/27/2016 10:43 AM) Component Value Ref Range Procalcitonin <0.05 <0.10 NG/ML Specimen Performing Laboratory Blood [facility]IN [facility] [address] [place] [address] * SODIUM (12/27/2016 10:43 AM) Component Value Ref Range Sodium 148 (H) 137 - 147 MMOL/L Specimen Performing Laboratory Blood [facility] MAIN [facility] [address] [place] [address] * CT HEAD WO CONTRAST (12/27/2016 10:12 [...] Performing Laboratory Blood [facility]IN [facility] [address] [place] [address] * PHOSPHORUS (12/27/2016 3:56 AM) Component Value Ref Range Phosphorus 1.6 (L) 2.0 - 4.0 MG/DL Specimen Performing Laboratory Blood MAIN LAB [address] [place] [address] * MAGNESIUM (12/27/2016 3:56 AM) Component Value Ref Range Magnesium 1.9 1.6 - 2.6 mg/dL Specimen Performing Laboratory Blood MAIN LAB [address] [place] [address] * CBC AND DIFF (12/27/2016 3:56 AM) [...] K/UL Specimen Performing Laboratory Blood MAIN LAB [address] [place] [address] * BASIC METABOLIC PANEL (12/27/2016 3:56 AM) [...] Specimen Performing Laboratory Blood [facility]IN [facility] [address] [place] [address] * POTASSIUM (12/26/2016 9:58 PM) Component Value Ref Range Potassium 4.3 3.5 - 5.1 MMOL/L Specimen Performing Laboratory Blood [facility] MAIN [facility] [address] [place] [address] * SODIUM (12/26/2016 9:58 PM) Component Value Ref Range Sodium 154 (H) 137 - 147 MMOL/L Specimen Performing Laboratory Blood [facility]IN [facility] [address] [place] [address] * POTASSIUM (12/26/2016 4:11 PM) Component Value Ref Range Potassium 3.4 (L) 3.5 - 5.1 MMOL/L Specimen Performing Laboratory Blood [facility]IN [facility] [address] [place] [address] * SODIUM (12/26/2016 4:11 PM) Component Value Ref Range Sodium 156 (H) 137 - 147 MMOL/L Specimen Performing Laboratory Blood [facility]IN [facility] [address] [place] [address] * CHEST SINGLE VIEW (12/26/2016 2:22 PM) [...] hemidiaphragm with the tip not in the xzkxb-ec-aood. Heart size and pulmonary vasculature are within normal limits. No consolidation, pleural effusion, or pneumothorax. ACDF is noted. Partially visualized posterior spinal fixation hardware. Procedure Note Interface, Radiant Results - 12/26/2016 4:44 PM CDT CHEST SINGLE VIEW History: fever. Comparison: Chest radiograph from December 24, 2016. Findings: Enteric tube is in place coursing below the left hemidiaphragm with the tip not in the qpzrk-hr-afru. Heart size and pulmonary vasculature are within [...] Specimen Performing Laboratory Urine MAIN LAB [address] [place] [address] * URINALYSIS MICROSCOPIC REFLEX TO CULTURE (12/26/2016 12:37 PM) Component Value Ref Range WBCs,UA 0-2 0 - 2 /HPF RBCs,UA 2-10 0 - 3 /HPF Comment,UA Urine submitted for reflex culture if criteria are met:WBC>10, positive nitrite and/or >=1+ leukocyte esterase. If quantity is not sufficient, an addendum will follow. MucousUA TRACE Specimen Performing Laboratory Urine MAIN LAB [address] [place] [address] * URINALYSIS DIPSTICK REFLEX TO CULTURE (12/26/2016 12:37 PM) Component Value Ref Range Color,UA YELLOW Turbidity,UA CLEAR CLEAR-CLEAR Specific [place]-Urine 1.017 1.003 - 1.035 pH,UA 8.0 5.0 - 8.0 Protein,UA 1+ (A) NEG-NEG Glucose,UA NEG NEG-NEG Ketones,UA NEG NEG-NEG Bilirubin,UA NEG NEG-NEG Blood,UA 1+ (A) NEG-NEG Urobilinogen,UA NORMAL NORM-NORMAL Nitrite,UA NEG NEG-NEG Leukocytes,UA NEG NEG-NEG Urine Ascorbic Acid, UA NEG NEG-NEG Specimen Performing Laboratory Urine MAIN LAB [address] [place], [place] [id number] * CULTURE-BLOOD W/SENSITIVITY (12/26/2016 12:37 PM) Component Value Ref Range Battery Name BLOOD CULTURE Specimen Description BLOOD LEFT FOREARM Special Requests NONE Culture POSITIVE SMEAR: GRAM POSITIVE COCCI RESEMBLING STAPHYLOCOCCI one bottle only CRITICAL VALUE CALLED TO AND READ BACK BY/TIME/[employer] [place] Ciera 12/27/16 1456 TL STAPHYLOCOCCUS, COAGULASE NEGATIVE , probable contamination. Susceptibility performed only by special request. Report Status FINAL 01/01/2017 Specimen Performing Laboratory Blood MAIN LAB [address] [place], [place] [id number] * CULTURE-BLOOD W/SENSITIVITY (12/26/2016 12:37 PM) Component Value Ref Range Battery Name BLOOD CULTURE Specimen Description BLOOD LEFT ANTECUBITAL Special Requests NONE Culture NO GROWTH 5 DAYS Report Status FINAL 01/01/2017 Specimen Performing Laboratory Blood MAIN LAB [address] [place], [place] [id number] * POTASSIUM (12/26/2016 10:30 AM) Component Value Ref Range Potassium 3.4 (L) 3.5 - 5.1 MMOL/L Specimen Performing Laboratory Blood MAIN LAB [address] [place], [place] [id number] * SODIUM (12/26/2016 10:30 AM) Component Value Ref Range Sodium 152 (H) 137 - 147 MMOL/L Specimen Performing Laboratory Blood MAIN LAB [address] [place] [address] * IONIZED CALCIUM (12/26/2016 4:16 AM) Component Value Ref Range Ionized Calcium 1.07 1.0 - 1.3 MMOL/L Specimen Performing Laboratory Blood MAIN LAB [address] [place] [address] * PHOSPHORUS (12/26/2016 4:16 AM) Component Value Ref Range Phosphorus 2.6 2.0 - 4.0 MG/DL Specimen Performing Laboratory Blood MAIN LAB [address] [place] [address] 95[address] * MAGNESIUM (12/26/2016 4:16 AM) Component Value Ref Range Magnesium 2.2 1.6 - 2.6 mg/dL Specimen Performing Laboratory Blood MAIN LAB [address] [place] [address] * CBC AND DIFF (12/26/2016 4:16 AM) [...] Performing Laboratory Blood [facility]IN [facility] [address] [place] [address] * BASIC METABOLIC PANEL (12/26/2016 4:16 AM) [...] Performing Laboratory Blood [facility] MAIN [facility] [address] [place] [address] * SODIUM (12/25/2016 10:25 PM) Component Value Ref Range Sodium 151 (H) 137 - 147 MMOL/L Specimen Performing Laboratory Blood [facility]IN [facility] [address] [place] [address] * SODIUM (12/25/2016 4:36 PM) Component Value Ref Range Sodium 151 (H) 137 - 147 MMOL/L Specimen Performing Laboratory Blood [facility]IN [facility] [address] [place] [address] * CT HEAD WO CONTRAST (12/25/2016 2:21 [...] 0.05 NG/ML Specimen Performing Laboratory MAIN LAB [address] [place] [address] * POTASSIUM (12/25/2016 10:52 AM) Component Value Ref Range Potassium 4.0 3.5 - 5.1 MMOL/L Specimen Performing Laboratory Blood MAIN LAB [address] [place] [address] * SODIUM (12/25/2016 10:52 AM) Component Value Ref Range Sodium 152 (H) 137 - 147 MMOL/L Specimen Performing Laboratory Blood MAIN LAB [address] [place] [address] * IONIZED CALCIUM (12/25/2016 3:35 AM) Component Value Ref Range Ionized Calcium 1.09 1.0 - 1.3 MMOL/L Specimen Performing Laboratory Blood MAIN LAB [address] [place] [address]51 * PHOSPHORUS (12/25/2016 3:35 AM) Component Value Ref Range Phosphorus 2.4 2.0 - 4.0 MG/DL Specimen Performing Laboratory Blood MAIN LAB [address] [place] [address] 29121 * MAGNESIUM (12/25/2016 3:35 AM) Component Value Ref Range Magnesium 2.2 1.6 - 2.6 mg/dL Specimen Performing Laboratory Blood MAIN LAB [address] [place] [address] * CBC AND DIFF (12/25/2016 3:35 AM) [...] Specimen Performing Laboratory Blood MAIN LAB [address] [place] [address] * BASIC METABOLIC PANEL (12/25/2016 3:35 AM) [...] Performing Laboratory Blood [facility]IN [facility] [address] [place] [address] * SODIUM (12/24/2016 10:00 PM) Component Value Ref Range Sodium 144 137 - 147 MMOL/L Specimen Performing Laboratory Blood [facility] MAIN [facility] [address] [place] [address] * BLOOD GASES, ARTERIAL (12/24/2016 5:44 PM) Component Value Ref Range pH-Arterial 7.42 7.35 - 7.45 pCO2-Arterial 37 35 - 45 MMHG pO2-Arterial 165 (H) 80 - 100 MMHG Base Deficit-Arterial 0.0 MMOL/L O2 Sat-Arterial 99.6 (H) 95 - 99 % Dnblzzeslig-LPV-Tmi 24.4 21 - 28 MMOL/L Specimen Performing Laboratory Blood, arterial - Blood [facility] MAIN [facility] [address] [place] [address] * SODIUM (12/24/2016 5:05 PM) Component Value Ref Range Sodium 145 137 - 147 MMOL/L Specimen Performing Laboratory Blood [facility] MAIN [facility] [address] [place] [address] * CT HEAD WO CONTRAST (12/24/2016 4:33 [...] There is improved intracranial mass effect and afif-hk-msqvr frontal midline shift now measuring 9 mm. [...] There is improved intracranial mass effect and frfk-jl-tydys frontal midline shift now measuring 9 mm. [...] Stool - Feces [facility] MAIN LAB [address] [place] [address] * PLAVIX RESISTANCE (PLATELETWORKS) (12/24/2016 1:35 PM) Component Value Ref Range Platelet Inhibition 40 (H) 0 - 15 % Comment: Normal ADP inhibition should be less than 15%. Therapeutic (Plavix and other P2Y 12) levels should be greater than 30%. Specimen Performing Laboratory Blood [facility] MAIN [facility] [address] [place] [address] * SODIUM (12/24/2016 11:40 AM) Component Value Ref Range Sodium 147 137 - 147 MMOL/L Specimen Performing Laboratory Blood [facility]IN [facility] [address] [place] [address] * CHEST SINGLE VIEW (12/24/2016 4:35 AM) [...] MMOL/L Specimen Performing Laboratory Blood MAIN LAB [address] [place], [place] [id number] * PHOSPHORUS (12/24/2016 4:00 AM) Component Value Ref Range Phosphorus 2.3 2.0 - 4.0 MG/DL Specimen Performing Laboratory Blood MAIN LAB [address] [place], [place] [id number] * MAGNESIUM (12/24/2016 4:00 AM) Component Value Ref Range Magnesium 2.2 1.6 - 2.6 mg/dL Specimen Performing Laboratory Blood MAIN LAB [address] [place], [place] [id number] * CBC AND DIFF (12/24/2016 4:00 AM) [...] K/UL Specimen Performing Laboratory Blood MAIN LAB [address] [place], [place] [id number] * BASIC METABOLIC PANEL (12/24/2016 4:00 AM) [...] Performing Laboratory Blood [facility]IN [facility] [address] [place] [address] * CT HEAD WO CONTRAST (12/24/2016 3:29 [...] significant change in left-sided transalar herniation and mfih-yr-pzqin midline shift, measuring approximately 1.1 cm. There [...] significant change in left-sided transalar herniation and cibx-ft-ctqvm midline shift, measuring approximately 1.1 cm. There [...] Specimen Performing Laboratory Blood MAIN LAB [address] [place] [address] * SODIUM (12/23/2016 9:43 PM) Component Value Ref Range Sodium 142 137 - 147 MMOL/L Specimen Performing Laboratory Blood MAIN LAB [address] [place] [address] * TYPE & CROSSMATCH (12/23/2016 8:56 PM) Component Value Ref Range Units Ordered 2 Crossmatch Expires 12/26/2016 Record Check 2ND TYPE REQUIRED ABO/RH(D) A POS Antibody Screen NEG Specimen Performing Laboratory Blood MAIN LAB [address] [place] [address] * BLOOD GASES, ARTERIAL (12/23/2016 8:00 PM) Component Value Ref Range pH-Arterial 7.46 (H) 7.35 - 7.45 pCO2-Arterial 33 (L) 35 - 45 MMHG pO2-Arterial 75 (L) 80 - 100 MMHG Base Excess-Arterial 0.2 MMOL/L O2 Sat-Arterial 95.9 95 - 99 % Iaangfhbjxw-CDH-Sqy 24.6 21 - 28 MMOL/L Specimen Performing Laboratory Blood, arterial - Blood MAIN LAB [address] [place], [place] [id number] * POTASSIUM (12/23/2016 6:14 PM) Component Value Ref Range Potassium 4.4 3.5 - 5.1 MMOL/L Specimen Performing Laboratory Blood MAIN LAB [address] [place] [address] * SODIUM (12/23/2016 4:05 PM) Component Value Ref Range Sodium 142 137 - 147 MMOL/L Specimen Performing Laboratory MAIN LAB [address] [place], [place] [id number] * PLATELET FUNCTION-PFA (12/23/2016 2:53 PM) Component [...] in this report. Specimen Performing Laboratory Blood [facility] [address] [place] [address] * LIPID PROFILE (12/23/2016 1:43 PM) Component [...] Specimen Performing Laboratory [facility] [address] [place] [address] * POTASSIUM (12/23/2016 1:43 PM) Component Value Ref Range Potassium 3.8 3.5 - 5.1 MMOL/L Specimen Performing Laboratory Blood [facility]IN [facility] [address] [place] [address] * MAGNESIUM (12/23/2016 1:43 PM) Component Value Ref Range Magnesium 2.4 1.6 - 2.6 mg/dL Specimen Performing Laboratory Blood [facility]IN [facility] [address] [place] [address] * SODIUM (12/23/2016 1:43 PM) Component Value Ref Range Sodium 142 137 - 147 MMOL/L Specimen Performing Laboratory Blood [facility]IN [facility] [address] [place] [address] * CT HEAD WO CONTRAST (12/23/2016 11:10 AM) Specimen Performing Laboratory [facility] RAD RESULTS Impressions 1.No significant change in size of the large left frontal mixed density hemorrhage with interval extension into the left lateral ventricle. 2.Slight decrease in bpal-af-hfixd midline shift. 3.Interval increase in size of [...] examination. There is been slight improvement in xxwt-bl-vddaw midline shift, now measuring 10 mm compared [...] examination. There is been slight improvement in piqq-wm-hrffq midline shift, now measuring 10 mm compared to 13 mm previously. The basal cisterns are patent. There are no destructive osseous lesions. The perinasal sinuses and mastoid air cells are clear. IMPRESSION 1. No significant change in size of the large left frontal mixed density hemorrhage with interval extension into the left lateral ventricle. 2. Slight decrease in ykuj-ui-lzbri midline shift. 3. Interval increase in size [...] MMOL/L Specimen Performing Laboratory Blood MAIN LAB [address] [place], [place] [id number] * POTASSIUM (12/23/2016 8:16 AM) Component Value Ref Range Potassium 3.9 3.5 - 5.1 MMOL/L Specimen Performing Laboratory Blood MAIN LAB [address] [place], [place] [id number] * BLOOD GASES, ARTERIAL (12/23/2016 7:37 AM) Component Value Ref Range pH-Arterial 7.48 (H) 7.35 - 7.45 pCO2-Arterial 33 (L) 35 - 45 MMHG pO2-Arterial 71 (L) 80 - 100 MMHG Base Excess-Arterial 1.3 MMOL/L O2 Sat-Arterial 95.2 95 - 99 % Ikcyuswufrw-YIJ-Bnk 25.5 21 - 28 MMOL/L Specimen Performing Laboratory Blood, arterial - Blood MAIN LAB [address] [place], [place] [id number] * IONIZED CALCIUM (12/23/2016 4:30 AM) Component Value Ref Range Ionized Calcium 1.11 1.0 - 1.3 MMOL/L Specimen Performing Laboratory Blood MAIN LAB [address] [place], [place] [id number] * PHOSPHORUS (12/23/2016 4:30 AM) Component Value Ref Range Phosphorus 3.6 2.0 - 4.0 MG/DL Specimen Performing Laboratory Blood MAIN LAB [address] [place], [place] [id number] * MAGNESIUM (12/23/2016 4:30 AM) Component Value Ref Range Magnesium 1.8 1.6 - 2.6 mg/dL Specimen Performing Laboratory Blood MAIN LAB [address] [place], [place] [id number] * CBC AND DIFF (12/23/2016 4:30 AM) [...] Specimen Performing Laboratory Blood MAIN LAB [address] [place] [address] * BASIC METABOLIC PANEL (12/23/2016 4:30 AM) [...] Specimen Performing Laboratory Blood MAIN LAB [address] [place] [address] * HEMOGLOBIN A1C (12/23/2016 4:30 AM) Component Value Ref Range Hemoglobin A1C 5.2 4.0 - 6.0 % Comment: The ADA recommends that most patients with type 1 and type 2 diabetes maintain an A1c level <7%. Specimen Performing Laboratory Blood MAIN LAB [address] [place] [address] * BASIC METABOLIC PANEL (12/22/2016 11:14 PM) [...] Performing Laboratory Blood [facility]IN [facility] [address] [place] [address] * CT HEAD WO CONTRAST (12/22/2016 7:56 [...] There is continued localized mass effect and gxdk-vi-dheyd frontal midline shift and transalar herniation. The [...] There is continued localized mass effect and kzpl-jz-teglh frontal midline shift and transalar herniation. The [...] an existing cavity. 3.Continued mass effect and sjjo-hi-lyjdk midline shift, difficult to quantify due to [...] changed. There is continued mass effect and ibiq-dx-olgrz midline shift. The degree of midline shift [...] changed. There is continued mass effect and ghpr-xi-rzqta midline shift. The degree of midline shift [...] existing cavity. 3. Continued mass effect and smsx-tj-jpsmz midline shift, difficult to quantify due to [...] Specimen Performing Laboratory Blood MAIN LAB [address] [place] [address] * PTT (APTT) (12/22/2016 1:45 PM) Component Value Ref Range APTT 23.7 (L) 24.0 - 40.0 SEC Specimen Performing Laboratory Blood MAIN LAB [address] [place] [address] * PROTIME INR (PT) (12/22/2016 1:45 PM) Component Value Ref Range INR 1.0 0.8 - 1.2 Specimen Performing Laboratory Blood MAIN LAB [address] [place] [address] * CBC AND DIFF (12/22/2016 1:45 PM) [...] Performing Laboratory Blood [facility]IN [facility] [address] [place] [address] * ABDOMEN AP ONLY (12/22/2016 7:08 AM) [...]
--- OUTSIDE RECORDS SUMMARY | 2017-03-03 18:57 | XMS REPORT | Encounter Summary ---
Author Author [facility] Organization [facility] Address Unknown Phone Unavailable Care Team Providers Care Hot Packer Name Role Phone PCP Unavailable Encounter Details Date Type Department Care Team Description 12/22/2016 Procedure [facility] [address] [place] [address] Social History Tobacco Use Types Packs/Day Years Used Date Never Assessed Sex Assigned at Date Recorded Not on file as of this encounter Plan of Treatment Not on fileas of this encounter Visit Diagnoses Not on filein this encounter
--- OUTSIDE RECORDS SUMMARY | 2017-03-03 18:57 | XMS REPORT | Encounter Summary ---
Author Author [facility] Organization [facility] Address Unknown Phone Unavailable Care Team Providers Care Automation Clerk Name Role Phone PCP Unavailable Encounter Details Date Type Department Care Team Description 12/22/2016 Procedure [facility] [address] [place] [address] Social History Tobacco Use Types Packs/Day Years Used Date Never Smoker Smokeless Tobacco: Never Used Alcohol Use Drinks/Week oz/Week Comments No Sex Assigned at Date Recorded Not on file as of this encounter Plan of Treatment Not on fileas of this encounter Visit Diagnoses Not on filein this encounter
--- OUTSIDE RECORDS SUMMARY | 2017-03-03 18:57 | XMS REPORT | Encounter Summary ---
Author Author [facility] Organization [facility] Address Unknown Phone Unavailable Care Team Providers Care Instrumentation Manager Name Role Phone PCP Unavailable Encounter Details Date Type Department Care Team Description 12/23/2016 Procedure [facility] [address] [place] [address] Social History Tobacco Use Types Packs/Day Years Used Date Never Smoker Smokeless Tobacco: Never Used Alcohol Use Drinks/Week oz/Week Comments No Sex Assigned at Date Recorded Not on file as of this encounter Plan of Treatment Not on fileas of this encounter Visit Diagnoses Not on filein this encounter
--- OUTSIDE RECORDS SUMMARY | 2017-03-03 18:57 | XMS REPORT | Encounter Summary ---
Author Author [facility] Organization [facility] Address Unknown Phone Unavailable Care Team Providers Care [employer] Resource Teacher Name Role Phone PCP Unavailable Encounter Details Date Type Department Care Team Description 12/23/2016 Prep for Case ADMITTING Nolberto Cody MD [address] [facility]. [address] [place] [address] [place] [address] Social History Tobacco Use Types Packs/Day Years Used Date Never Smoker Smokeless Tobacco: Never Used Alcohol Use Drinks/Week oz/Week Comments No Sex Assigned at Date Recorded Not on file as of this encounter Plan of Treatment Not on fileas of this encounter Visit Diagnoses Not on filein this encounter
--- OUTSIDE RECORDS SUMMARY | 2017-03-03 18:58 | XMS REPORT | Encounter Summary ---
Author Author [facility] Organization [facility] Address Unknown Phone Unavailable Care Team Providers Care Rfp Writer Name Role Phone PCP Unavailable Encounter Details Date Type Department Care Team Description 12/22/2016 Hospital [facility] [address] [place], [place] [id number] Social History Tobacco Use Types Packs/Day Years [...]
--- OUTSIDE RECORDS SUMMARY | 2017-03-03 18:58 | XMS REPORT | Encounter Summary ---
Author Author [facility] Organization [facility] Address Unknown Phone Unavailable Care Team Providers Care Front Desk Assistant Name Role Phone PCP Unavailable Encounter Details Date Type Department Care Team Description 12/22/2016 Procedure [facility] [address] [place] [address] Social History Tobacco Use Types Packs/Day Years Used Date Never Assessed Sex Assigned at Date Recorded Not on file as of this encounter Plan of Treatment Not on fileas of this encounter Visit Diagnoses Not on filein this encounter
--- OUTSIDE RECORDS SUMMARY | 2017-03-03 18:58 | XMS REPORT | Encounter Summary ---
Author Author [facility] Organization [facility] Address Unknown Phone Unavailable Care Team Providers Care Cardiology Clinical Consultant Name Role Phone PCP Unavailable Encounter Details Date Type Department Care Team Description 12/22/2016 Procedure [facility] [address] [place] [address] Social History Tobacco Use Types Packs/Day Years Used Date Never Assessed Sex Assigned at Date Recorded Not on file as of this encounter Plan of Treatment Not on fileas of this encounter Visit Diagnoses Not on filein this encounter
--- OUTSIDE RECORDS SUMMARY | 2017-03-03 18:58 | XMS REPORT | Encounter Summary ---
Author Author [facility] Organization [facility] Address Unknown Phone Unavailable Care Team Providers Care Ramp Service Agent Name Role Phone PCP Unavailable Encounter Details Date Type Department Care Team Description 12/22/2016 Hospital [facility] Radiology [address] [place], [place] [id number] Social History Tobacco Use Types Packs/Day Years [...]
--- NOTE | 2017-03-03 20:16 | Diagnostic Imaging Report ---
Clinical indication: PEG tube check. Exam: X-ray of the abdomen, 2 KUB views and lateral view of the abdomen. Comparison: None. Findings: PEG tube is seen overlying the gastric body region. There is injection of Gastrografin through the PEG tube with contrast filling the stomach and extending through the duodenum and proximal jejunum. There is no evidence of gross contrast leakage on the given images. There is no intra-abdominal free air. There is a moderate amount of stool in the rectosigmoid region. Posterior fusion hardware is seen at the L1-L5 levels. Laminectomy changes are also seen. There is degenerative disease of the lumbar spine. There is retrolisthesis of L2 on L3. Impression: Contrast injection through the PEG tube which is in good position. Is no gross contrast leakage or free air seen on this exam. Dictated by: Dictated on workstation # [id number]
[2017-03-03 20:25] VITALS: BP 122/74
== END 2017-03-03 20:25 | disposition home or self-care (01) ==
LOC: EDUNIT# 18:37 → ER 18:38
DX: K94.23 Gastrostomy malfunction (principal)
CPT/HCPCS: 49465; 99281

== ENCOUNTER 2017-06-27 09:24 | Emergency (ER) | payer MEDICARE, BC ==
[~2017-06-27] VITALS: Ht 165.1 cm; Wt 49.9 kg
[~2017-06-27 09:24] MED LIST changes: +ACHD5005 PO; -HYDR-3812 PO
[2017-06-27] MEDS ORDERED: NS IV 1000 ML 1,000 ML IV ONE (09:32)
[2017-06-27 09:51] LABS: BILIRUBIN,URINE NEGATIVE (NEGATIVE); CLARITY,URINE SLIGHTLY CLOUDY; COLOR,URINE YELLOW; GLUCOSE, URINE (UA) NEGATIVE (NEGATIVE); KETONES,URINE NEGATIVE (NEGATIVE); LEUKOCYTE ESTERASE ,URINE 1+ (NEGATIVE); NITRITE,URINE NEGATIVE (NEGATIVE); PH,URINE 6 (5-9); PROTEIN,URINE 2+ (NEGATIVE); UROBILINOGEN,URINE NORMAL (NORMAL)
[2017-06-27 09:54] LABS: BASOPHILS % (AUTO) 0 % (0-10); EOSINOPHILS % (AUTO) 0 % (0-10); HEMATOCRIT 35 % (35-52); HEMOGLOBIN 11.8 G/DL (11.5-16.0); LYMPHOCYTES # (AUTO) 1.2 X 10^3 (1.0-4.0); LYMPHOCYTES % (AUTO) 23 % (12-44); MEAN CORPUSCULAR HEMOGLOBIN 31 PG (25-34); MEAN CORPUSCULAR HGB CONC 34 G/DL (32-36); MEAN CORPUSCULAR VOLUME 92 FL (80-99); MEAN PLATELET VOLUME 11.2 FL (7.4-10.4); MONOCYTES # (AUTO) 0.5 X 10^3 (0.0-1.0); MONOCYTES % (AUTO) 9 % (0-12); NEUTROPHILS # (AUTO) 3.5 X 10^3 (1.8-7.8); NEUTROPHILS % (AUTO) 67 % (42-75); PLATELET COUNT 142 10^3/uL (130-400); RED BLOOD COUNT 3.76 10^6/uL (4.35-5.85); RED CELL DISTRIBUTION WIDTH 14.7 % (10.0-14.5); WHITE BLOOD COUNT 5.2 10^3/uL (4.3-11.0)
--- NOTE | 2017-06-27 10:04 | ED General ---
General Chief Complaint: Neurological Problems Stated Complaint: FALL Nursing Triage Note: PT TO ED 8 PER EMS FOR C/O WEAKNESS. PER EMS, CALLED TO PTS HOME FOR FALL, REPORTS PT HAS BEEN "SICK" FOR SEVERAL DAYS, ON ABX CURRENTLY. WERE ANTICIPATING PT REFUSAL WHEN PT BECAME PALE, DIAPHORETIC, ET HAD NEAR SYNCOPAL EPISODE. PT PRESENTLY AWAKE, A/OX3, ANSWERS ALL QUESTIONS APPROPRIATELY. NO DISTRESS OR DISCOMFORT NOTED. PT WAS INCONTINENT OF URINE BENEFITS CONSULTANT. Nursing Sepsis Screen: No Definite Risk Source of Information: Patient Exam Limitations: No Limitations History of Present Illness Date Seen by Provider: Jun 27, 2017 Time Seen by Provider: 09:28 Initial Comments Here with report of feeling well the last several days. Called to the house after she was noted by to be weekend had a fall. Patient doesn't remember this for sure doesn't remember hitting her head. Denies any head pain currently. Patient initially was given a refused EMS transport but then had a near syncopal episode again on standing so relented for transport. Initial blood pressures in the 90s systolic per EMS and this did improve after IV fluids. Patient was incontinent of urine. States feeling a little better now but very cold. Denies upper respiratory symptoms currently but apparently is on azithromycin. is here and reports that the patient is on the antibiotic because she's had cough recently. Also is on Robitussin-DM. Has been reports that she has had increased amount of urination over the past couple of days and was incontinent this morning. Reports that she did have a fall this morning and this was not witnessed. She apparently fell flat on the floor. He is not sure if she hit her head. Patient does have history of stroke with bleeding. Does have some mild residual left-sided deficit although this is markedly improved. She is not on blood thinners currently. Timing/Duration: 2-3 Days, Getting Worse Severity: Moderate Associated Systoms: Cough, No Fever/Chills, No Nausea/Vomiting, Shortness of Air, Weakness Allergies and Home Medications Allergies Coded Allergies: Penicillins (Unverified Allergy, Unknown, HIVES, 12/21/15) THROAT SWELLS Uncoded Allergies: PAULINO INHIBITOR 2 (Allergy, Unknown, HIVES, 12/21/15) THROAT SWELLS Home Medications Aspirin 81 Mg Tablet., #30 (Reported) Clopidogrel Bisulfate 75 Mg Tablet, 75 MG PO DAILY, #30 Prescribed by: ADRIANA TRIPP on 08/04/16 1221 Donepezil HCl 5 Mg Tablet, 5 MG PO DAILY, (Reported) Duloxetine HCl 30 Mg Capsule.dr, 30 MG PO DAILY, (Reported) Hydrocodone Bit/Acetaminophen 1 Each Tablet, 1 EACH PO Q4H PRN for PAIN, #14 Ref 0 Prescribed by: REN BRITT on 03/02/17 1819 Memantine HCl 28 Mg Cap.spr.24, 28 MG PO DAILY, (Reported) Constitutional: see HPI, No chills, No fever, weakness EENTM: nose congestion, No throat pain Respiratory: cough, No short of breath Cardiovascular: No chest pain, syncope Gastrointestinal: No abdominal pain, No nausea, No vomiting Genitourinary: No dysuria, frequency, incontinence Musculoskeletal: no symptoms reported Skin: no symptoms reported All Other Systems Reviewed Negative Unless Noted: Yes Past Usltwab-Agnukh-Zrdsjc Hx Patient Social History Alcohol Use: Denies Use Recreational Drug Use: No Smoking Status: Never a Smoker 2nd Hand Smoke Exposure: No Recent Foreign Travel: No Contact w/Someone Who Travel: No Recent Infectious Disease Expo: No Recent Hopitalizations: No Physical Abuse: No Sexual Abuse: No Mistreated: No Fear: No Immunizations Up To Date Tetanus Booster (TDap): More than 5yrs Date of Influenza Vaccine: Feb 16, 2012 Seasonal Allergies Seasonal Allergies: Yes Surgeries History of Surgeries: Yes ("spinal cage" and gastrostomy tube placement) Surgeries: Hysterectomy, Orthopedic, Tonsillectomy Respiratory History of Respiratory Disorde: Yes Respiratory Disorders: Asthma Cardiovascular History of Cardiac Disorders: No Neurological History of Neurological Disord: Yes ("mini stroke" FOUND ON MRI 3-4 months ago per ) Neurological Disorders: Dementia, Stroke Reproductive System Hx Reproductive Disorders: No Genitourinary History of Genitourinary Disor: No Gastrointestinal History of Gastrointestinal Di: No Musculoskeletal History of Musculoskeletal Dis: Yes Musculoskeletal Disorders: Osteoporosis, Arthritis, Chronic Back Pain, Fractures Endocrine History of Endocrine Disorders: Yes (WAS ON MEDICATIONS FOR DIABETES, BUT NOT ANY LONGER) Endocrine Disorders: Diabetes, Non-Insulin dep HEENT History of HEENT Disorders: No Cancer History of Cancer: No Psychosocial History of Psychiatric Problem: Yes Behavioral Health Disorders: Depression Suicide Risk Score: 0 Integumentary History of Skin or Integumenta: No Blood Transfusions History of Blood Disorders: No Reviewed Nursing Assessment Reviewed/Agree w Nursing PMH: Yes Family Medical History Significant Family History: No Pertinent Family Hx Physical Exam-Suspected Sepsis Physical Exam Vital Signs Vital Signs - First Documented 06/27/17 09:34 Temp 97.3 Pulse 84 Resp 16 B/P (MAP) 118/57 (77) Pulse Ox 98 O2 Delivery Room Air Capillary Refill : Less Than 3 Seconds Blood Pressure Mean: 77 General Appearance: No Apparent Distress, WD/WN HEENT: PERRL/EOMI, Pharynx Normal Neck: Non Tender, Supple Respiratory: Lungs Clear, Normal Breath Sounds Cardiovascular: Regular Rate, Rhythm, No Murmur Gastrointestinal: Non Tender, Soft Back: Normal Inspection, No CVA Tenderness, No Vertebral Tenderness Extremity: Normal Range of Motion, Non Tender Neurologic/Psychiatric: Alert, Oriented x3 Skin: normal color, warm/dry Focused Exam Evaluation Lactate Level Laboratory Tests 06/27/17 09:38: Lactic Acid Level 0.96 Lactic Acid Level Laboratory Tests Test 06/27/17 09:38 Lactic Acid Level 0.96 MMOL/L (0.50-2.00) Progress/Results/Core Measures Suspected Sepsis Recent Fever Within 48 Hours: No Infection Criteria Present: None New/Unexplained Altered Menta: No Sepsis Screen: No Definite Risk Sepsis Diagnosis: SIRS Temperature:97.3 Pulse: 84 Respiratory Rate: 16 Laboratory Tests 06/27/17 09:38: White Blood Count 5.2 Blood Pressure 118 /57 Mean: 77 Laboratory Tests 06/27/17 09:38: Lactic Acid Level 0.96 Laboratory Tests 06/27/17 09:38: Creatinine 0.79, INR Comment 1.1, Platelet Count 142, Total Bilirubin 0.4 Results/Orders Lab Results Laboratory Tests Test 06/27/17 09:38 06/27/17 12:13 Range/Units White Blood Count 5.2 4.3-11.0 10^3/uL Red Blood Count 3.76 L 4.35-5.85 10^6/uL Hemoglobin 11.8 11.5-16.0 G/DL Hematocrit 35 35-52 % Mean Corpuscular Volume 92 80-99 FL Mean Corpuscular Hemoglobin 31 25-34 PG Mean Corpuscular Hemoglobin Concent 34 32-36 G/DL Red Cell Distribution Width 14.7 H 10.0-14.5 % Platelet Count 142 130-400 10^3/uL Mean Platelet Volume 11.2 H 7.4-10.4 FL Neutrophils (%) (Auto) 67 42-75 % Lymphocytes (%) (Auto) 23 12-44 % Monocytes (%) (Auto) 9 0-12 % Eosinophils (%) (Auto) 0 0-10 % Basophils (%) (Auto) 0 0-10 % Neutrophils # (Auto) 3.5 1.8-7.8 X 10^3 Lymphocytes # (Auto) 1.2 1.0-4.0 X 10^3 Monocytes # (Auto) 0.5 0.0-1.0 X 10^3 Eosinophils # (Auto) 0.0 0.0-0.3 10^3/uL Basophils # (Auto) 0.0 0.0-0.1 10^3/uL Prothrombin Time 14.3 12.2-14.7 SEC INR Comment 1.1 0.8-1.4 Activated Partial Thromboplast Time 25 24-35 SEC Urine Color YELLOW Urine Clarity SLIGHTLY CLOUDY Urine pH 6 5-9 Urine Specific [place] 1.020 1.016-1.022 Urine Protein 2+ H NEGATIVE Urine Glucose (UA) NEGATIVE NEGATIVE Urine Ketones NEGATIVE NEGATIVE Urine Nitrite NEGATIVE NEGATIVE Urine Bilirubin NEGATIVE NEGATIVE Urine Urobilinogen NORMAL NORMAL MG/DL Urine Leukocyte Esterase 1+ H NEGATIVE Urine RBC (Auto) 1+ H NEGATIVE Urine RBC RARE /HPF Urine WBC RARE /HPF Urine Squamous Epithelial Cells NONE /HPF Urine Crystals NONE /LPF Urine Bacteria NEGATIVE /HPF Urine Casts NONE /LPF Urine Mucus SMALL H /LPF Urine Culture Indicated NO Sodium Level 142 135-145 MMOL/L Potassium Level 4.0 3.6-5.0 MMOL/L Chloride Level 112 H 98-107 MMOL/L Carbon Dioxide Level 22 21-32 MMOL/L Anion Gap 8 5-14 MMOL/L Blood Urea Nitrogen 13 7-18 MG/DL Creatinine 0.79 0.60-1.30 MG/DL Estimat Glomerular Filtration Rate > 60 BUN/Creatinine Ratio 16 Glucose Level 139 H 70-105 MG/DL Lactic Acid Level 0.96 0.50-2.00 MMOL/L Calcium Level 7.8 L 8.5-10.1 MG/DL Total Bilirubin 0.4 0.1-1.0 MG/DL Aspartate Amino Transf (AST/SGOT) 25 5-34 U/L Alanine Aminotransferase (ALT/SGPT) 20 0-55 U/L Alkaline Phosphatase 56 40-136 U/L Total Protein 5.3 L 6.4-8.2 GM/DL Albumin 3.4 3.2-4.5 GM/DL My Orders Orders - SANTA BARNES MD Cbc With Automated Diff (06/27/17:32) Comprehensive Metabolic Panel (06/27/17:32) Lactic Acid Analyzer (06/27/17:32) Blood Culture (06/27/17:32) Sputum Culture (06/27/17:32) Ua Culture If Indicated (06/27/17:32) Protime With Inr (06/27/17:32) Partial Thromboplastin Time (06/27/17:32) Chest 1 View, Ap/Pa Only (06/27/17:32) O2 (06/27/17:32) Vital Signs Adult Sepsis Patie Q1H (06/27/17:32) Remove Rings In Anticipation O (06/27/17:32) Ns Iv 1000 Ml (Sodium Chloride 0.9%) (06/27/17:32) Ct Head Wo (06/27/17 10:11) Ekg Tracing (06/27/17 10:11) Ionized Calcium (06/27/17 11:59) Medications Given in ED Current Medications Medications Dose Ordered Sig/Marie Route Start Time Stop Time Status Last Admin Dose Admin Sodium Chloride 1,000 ml @ 0 mls/hr Q0M ONCE IV 06/27/17 09:32 06/27/17 09:34 DC 06/27/17 09:57 1,000 MLS/HR Vital Signs/I&O Vital Sign - Last 12Hours 06/27/17:34 Temp 97.3 Pulse 84 Resp 16 B/P (MAP) 118/57 (77) Pulse Ox 98 O2 Delivery Room Air Capillary Refill : Less Than 3 Seconds Blood Pressure Mean: 77 Progress Note : Progress Note Seen and evaluated. Septic workup initiated. We will get CT scan of the head do to history of fall and previous history of bleeding stroke. Patient did receive 1 L of normal saline IV bolus by EMS and we will give second liter of normal saline IV bolus. Monitor patient. 1200: Overall much improved. Calcium was noted to be low and we will get ionized calcium. This may just be related to diuretic effect from her cough medicine that we will evaluate for significant low calcium level. Monitor patient. 1230: Apparently the ionized calcium is a send out. Patient is sitting upright and doing better. We will discharge her home and call if there is worsening. Copy of chart to Dr. Ochoa as well. Discharged home with return precautions. Patient and family verbalize understanding instructions and agreement with plan. ECG Initial ECG Impression Date: Jun 27, 2017 Initial ECG Impression Time: 10:14 Initial ECG Rate: 91 Initial ECG Rhythm: Normal Sinus Comment Sinus rhythm with normal axis. No evidence of ST elevation AR. Similar to . Interpreted by me. Diagnostic Imaging Diagonstic Imaging: Xray Plain Films/CT/US/NM/MRI: chest [facility] [place] [place] NAME: [facility] REC#: [id number] PT STATUS: REG ER : 1950 PHYSICIAN: SANTA BARNES MD ADMIT DATE: 06/27/17/ER Draft Date of Exam:06/27/17 CHEST 1 VIEW, AP/PA ONLY Portable chest is compared with the prior examination from 12/22/2016. INDICATION: Weakness. FINDINGS: Chronic interstitial changes are present within the lungs. There is no focal infiltrate or effusion. There is no pneumothorax. Heart size and mediastinal subtle contours are appropriate without evidence of failure. Prior operative changes involving the cervical spine and lumbar spine are noted as well as previous lumbar kyphoplasty. IMPRESSION: No radiographic evidence of an acute cardiopulmonary process. Dictated on workstation # [id number] Dict: 06/27/17 1050 Trans: 06/27/17 1104 [id number] Interpreted by: JERRY RESENDEZ MD Electronically signed by: Diagonstic Imaging: CT Plain Films/CT/US/NM/MRI: chest Comments [facility] [place] NAME: [facility] REC#: [id number] PT STATUS: REG ER : 1950 PHYSICIAN: SANTA BARNES MD ADMIT DATE: 06/27/17/ER Draft Date of Exam:06/27/17 CT HEAD WO PROCEDURE: CT head without contrast. TECHNIQUE: Multiple contiguous axial images were obtained through the brain without the use of intravenous contrast. INDICATION: Weakness. Fall. Syncope. COMPARISON: CT head without contrast 12/22/2016. 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 No new intracranial hemorrhage, mass effect or extra-axial fluid collection. No CT evidence of acute infarction. Increasing size of the ventricular system with no obstruction identified. For example, the maximum width of the third ventricle measures up to 1.4 cm today, previously 0.5 cm. Osseous structures are intact. The visualized paranasal sinuses and mastoids are clear. IMPRESSION: 1. Increasing size of the ventricular system without obstruction identified. No evidence of subependymal flow of CSF. 2. No intracranial hemorrhage. No CT evidence of acute infarction. Dictated on workstation # [id number] Dict: 06/27/17 1049 Trans: 06/27/17 1056 [facility] [place] [id number] Interpreted by: GLENDA REY MD Electronically signed by: Departure Impression Impression: Primary Impression: Dehydration Additional Impression: Near syncope Disposition: 01 HOME, SELF-CARE Condition: Improved Departure-Patient Inst. Decision time for Depature: 12:41 Referrals: ZULEYMA OCHOA MD (PCP/Family) Primary Care Physician Patient Instructions: Dehydration, Adult (DC), Syncope (Fainting) (DC) Add. Discharge Instructions: All discharge instructions reviewed with patient and/or family. Voiced understanding. Continue home medications as directed but do not take the cough medicine. Follow-up with Dr. Ochoa on Thursday. If you're calcium level was too low we will call you for return. Return for weakness, vomiting, breathing problems, chest pain or other concerns as needed. You may add calcium to you diet through milk, cheese and orange juice fortified with calcium. Copy Copies To 1: ZULEYMA OCHOA MD, TIMOTHY D MD Jun 27, 2017 10:04
[2017-06-27 10:07] LABS: INR 1.1 (0.8-1.4); PROTHROMBIN TIME PATIENT 14.3 SEC (12.2-14.7)
[2017-06-27 10:08] LABS: RBC,URINE RARE /HPF; WBC,URINE RARE /HPF
[2017-06-27 10:09] LABS: BACTERIA,URINE NEGATIVE /HPF
--- NOTE | 2017-06-27 10:56 | Diagnostic Imaging Report ---
PROCEDURE: CT head without contrast. TECHNIQUE: Multiple contiguous axial images were obtained through the brain without the use of intravenous contrast. INDICATION: Weakness. Fall. Syncope. COMPARISON: CT head without contrast 12/22/2016. 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 No new intracranial hemorrhage, mass effect or extra-axial fluid collection. No CT evidence of acute infarction. Increasing size of the ventricular system with no obstruction identified. For example, the maximum width of the third ventricle measures up to 1.4 cm today, previously 0.5 cm. Osseous structures are intact. The visualized paranasal sinuses and mastoids are clear. IMPRESSION: 1. Increasing size of the ventricular system without obstruction identified. No evidence of subependymal flow of CSF. 2. No intracranial hemorrhage. No CT evidence of acute infarction. Dictated by: Dictated on workstation # [id number]
--- NOTE | 2017-06-27 11:04 | Diagnostic Imaging Report ---
Portable chest is compared with the prior examination from 12/22/2016. INDICATION: Weakness. FINDINGS: Chronic interstitial changes are present within the lungs. There is no focal infiltrate or effusion. There is no pneumothorax. Heart size and mediastinal subtle contours are appropriate without evidence of failure. Prior operative changes involving the cervical spine and lumbar spine are noted as well as previous lumbar kyphoplasty. IMPRESSION: No radiographic evidence of an acute cardiopulmonary process. Dictated by: Dictated on workstation # [id number]
[2017-06-27 11:33] LABS: ALANINE AMINOTRANSFERASE 20 U/L (0-55); ALBUMIN 3.4 GM/DL (3.2-4.5); ALKALINE PHOSPHATASE 56 U/L (40-136); BILIRUBIN,TOTAL 0.4 MG/DL (0.1-1.0); BUN/CREATININE RATIO 16; CALCIUM 7.8 MG/DL (8.5-10.1); CARBON DIOXIDE 22 MMOL/L (21-32); CHLORIDE 112 MMOL/L (98-107); CREATININE SERUM 0.79 MG/DL (0.60-1.30); GFR ESTIMATED > 60; GLUCOSE 139 MG/DL (70-105); SODIUM 142 MMOL/L (135-145); TOTAL PROTEIN 5.3 GM/DL (6.4-8.2)
[2017-06-27 12:50] VITALS: BP 109/63
--- OUTSIDE RECORDS SUMMARY | 2017-06-28 11:09 | XMS REPORT | Continuity of Care Document ---
Author Author [employer] Organization [facility] Address Unknown Phone Unavailable Care Team Providers Care Display Associate Name Role Phone [employer] Unavailable Unavailable Problems Medications Allergies, Adverse Reactions, Alerts Immunizations Results Vital Signs Encounters Location Location Details Encounter Type Encounter Number Reason For Visit Attending Provider ADM Date DC Date Status Source INPATIENT [id number] 12/25/2016 Active [facility] [id number] 01/08/2017 Active [facility] Krystyna ZARATE 03/04/2017 Active [facility] Procedures Plan of Care Social History Assessment and Plan Family History Advance Directives Functional Status
--- OUTSIDE RECORDS SUMMARY | 2017-06-28 11:09 | XMS REPORT | Clinical Summary ---
Author Author [facility] Organization [facility] Address Unknown Phone Unavailable Care Team Providers Care Superintendent Horticulture Name Role Phone Marylu Ochoa MD PCP Source Comments Some departments are not documenting in the electronic medical record. If you do not see the information that you expected, contact Release of Information in the Health Information Management department at [phone] for further assistance in locating additional records.[facility] Allergies Active Allergy Reactions Severity Noted Date Comments Artichoke VOMITING Low 12/24/2016 Celecoxib HIVES Medium 12/24/2016 Penicillins UNKNOWN High 12/22/2016 Tomato SEE COMMENTS High 1950 Throat swelling Current Medications Prescription Sig. Disp. Refills Start [...] Problem Noted Date Apraxia, late effect of cardiovascular disease 01/12/2017 Aphasia 01/07/2017 Hemiparesis of right dominant [...] Overview: Added automatically from request for surgery [id number] Dysphagia 12/22/2016 Overview: Added automatically from request for surgery [id number] Resolved Problems Problem Noted Date Resolved Date Hypernatremia 01/07/2017 01/12/2017 Social History Tobacco Use Types Packs/Day Years [...] INFLUENZA VACCINE 12/16/2016 Implants Implanted Type Area Rubber Mixer Device Expiration Model / Identifier Date Serial / Lot Screw Neuro 1.5x4mm Drill Free - [id number] BRITT [facility] [id number]- Sna IMPLANTS 91 / Implanted: Qty: 4 on 12/24/2016 by SCOTTY / Antwan Guadarrama MD NA Cover Alpha Hole 17mm .3mm Contour Left: KATHY BRITT [facility] [id number] Titanium - Sna Skull IMPLANTS / Implanted: Qty: 1 on 12/24/2016 by SCOTTY / Antwan Guadarrama MD NA Device Closure 70cm 6fr Angio-Seal Right: [facility] 07/15/2017 [id number] / Vip .035in Vascular - Sn/A Femoral N/A / Implanted: Qty: 1 on 12/29/2016 by Artery [id number] Scott Mancilla MD Results Not on filefrom Last 3 Months
--- OUTSIDE RECORDS SUMMARY | 2017-06-28 11:12 | XMS REPORT | CCD ---
Author Author Marylu Ochoa Organization Marylu Ochoa MD, [facility] Address [address] [place] [address] Phone Care Team Providers Care Agricultural Research Technician Name Role Phone PP Unavailable CCM Unavailable Summary Purpose Interface Exchange Insurance Providers Payer name Policy type / Coverage type Covered green party ID Effective Begin Date Effective End Date WPS Medicare Part B Medicare Part B [id number] [address] [facility] Medicare Part B [id number] 2015 Unknown Family history Mother Diagnosis Age At Onset Arthritis Unknown Diabetes Unknown Hypertension Unknown Hyperlipidemia Unknown Brother Diagnosis Age At Onset Asthma Unknown Cancer Unknown Heart Attack Unknown Brother Diagnosis Age At Onset No Family Disease Entered N/A Brother Diagnosis Age At Onset No Family Disease Entered N/A Father Diagnosis Age At Onset Arthritis Unknown Cancer Unknown Social History Social History Element Codes Description Effective Dates Marital status Unknown 10/16/2014 Number of children Unknown 2 10/16/2014 Employment Unknown Retired 10/16/[address]: 755397848 Never smoker 10/16/[address]: 342016729 Never drinks alcohol 10/16/2014 Allergies, Adverse Reactions, Alerts Allergies, Adverse Reactions, Alerts data not found Past Medical History Illness Codes Condition Status Onset Date Resolved Date Encounter for immunization ICD-9: V04.81 ICD-10: Z23 Active 03/25/2015 Unknown Essential (primary) hypertension ICD-9: 401.1 ICD-10: I10 Active 09/08/2016 Unknown Generalized anxiety disorder ICD-9: 300.00 ICD-10: F41.1 Active 03/18/2017 Unknown Major depressive disorder, recurrent, moderate ICD-9: 296.32 ICD-10: F33.1 Active 09/08/2016 Unknown 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 ICD-10: G45.8 Active 08/11/2016 Unknown Dysuria ICD-9: 788.1 ICD-10: R30.0 Active 03/17/2017 Unknown Localization-related (focal) (partial) symptomatic epilepsy and epileptic syndromes with simple partial seizures, not intractable, without status epilepticus ICD-9: 345.50 ICD-10: G40.109 Active 03/09/2017 Unknown Underweight ICD-9: 783.22 ICD-10: R63.6 Active 03/09/2017 Unknown Chronic pain syndrome ICD-9: 338.4 ICD-10: G89.4 Active 02/03/2016 Unknown Major depressive disorder, recurrent, mild ICD-9: 296.31 ICD-10: F33.0 Active 01/06/2016 Unknown Mixed hyperlipidemia ICD-9: 272.4 ICD-10: E78.2 Active 12/16/2015 Unknown Low back pain ICD-9: 724.2 ICD-10: M54.5 Active 08/15/2015 Unknown Other sleep apnea ICD- 9: 327.29 ICD-10: G47.39 Active 09/08/2016 Unknown Personal history of transient ischemic attack (TIA), and cerebral infarction without residual deficits ICD-9: V12.54 ICD-10: Z86.73 Active 09/08/2016 Unknown Mild cognitive impairment, so stated ICD-9: 331.83 ICD-10: G31.84 Active 02/03/2016 Unknown Headache ICD-9: 784.0 ICD-10: R51 Active 12/16/2015 Unknown Encounter for general adult medical examination with abnormal findings ICD-9: V70.0 ICD-10: Z00.01 Active 07/05/2015 Unknown Polyneuropathy, unspecified ICD-9: 356.9 ICD-10: G62.9 Active 10/15/2014 Unknown Unspecified inflammatory spondylopathy, sacral and sacrococcygeal region ICD-9: 720.9 ICD-10: M46.98 Active 06/06/2015 Unknown Other fatigue ICD-9: 780.79 ICD-10: R53.83 Active 04/30/2015 Unknown Plantar fascial fibromatosis ICD-9: 728.71 ICD-10: M72.2 Active 03/25/2015 Unknown Hyperlipidemia Unknown Active 01/30/2015 Unknown ALLERGIC RHINITIS ICD- 9: 477.9 Active 01/29/2015 Unknown Chronic pain syndrome ICD-9: 338.4 Active 10/15/2014 Unknown Hyperlipidemia ICD-9: 272.4 Active 01/29/2015 Unknown Elevated blood sugar ICD-9: 790.29 Active 01/25/2015 Unknown Depression Unknown Active 10/16/2014 Unknown Hypertension Unknown Active 10/16/2014 Unknown Osteoarthritis Unknown Active 10/16/2014 Unknown DEPRESSIVE DISORDER NEC ICD-9: 311 Active 10/15/2014 Unknown ESOPHAGEAL REFLUX ICD- 9: 530.81 Active 10/15/2014 Unknown OSTEOARTH NOS-UNSPEC ICD-9: 715.90 Active 10/15/2014 Unknown Peripheral neuropathy ICD-9: 356.9 Active 10/15/2014 Unknown Problems Condition Codes Effective Dates Condition Status Encounter for immunization ICD-9: V04.81 ICD-10: Z23 03/25/2015 Active Essential (primary) hypertension ICD-9: 401.1 ICD-10: I10 09/08/2016 Active Generalized anxiety disorder ICD-9: 300.00 ICD-10: F41.1 03/18/2017 Active Major depressive disorder, recurrent, moderate ICD-9: 296.32 ICD-10: F33.1 09/08/2016 Active 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 ICD-10: G45.8 08/11/2016 Active Dysuria ICD-9: 788.1 ICD-10: R30.0 03/17/2017 Active Localization-related (focal) (partial) symptomatic epilepsy and epileptic syndromes with simple partial seizures, not intractable, without status epilepticus ICD-9: 345.50 ICD-10: G40.109 03/09/2017 Active Underweight ICD-9: 783.22 ICD-10: R63.6 03/09/2017 Active Chronic pain syndrome ICD-9: 338.4 ICD-10: G89.4 02/03/2016 Active Major depressive disorder, recurrent, mild ICD-9: 296.31 ICD-10: F33.0 01/06/2016 Active Mixed hyperlipidemia ICD-9: 272.4 ICD-10: E78.2 12/16/2015 Active Low back pain ICD-9: 724.2 ICD-10: M54.5 08/15/2015 Active Other sleep apnea ICD- 9: 327.29 ICD-10: G47.39 09/08/2016 Active Personal history of transient ischemic attack (TIA), and cerebral infarction without residual deficits ICD-9: V12.54 ICD-10: Z86.73 09/08/2016 Active Mild cognitive impairment, so stated ICD-9: 331.83 ICD-10: G31.84 02/03/2016 Active Headache ICD-9: 784.0 ICD-10: R51 12/16/2015 Active Encounter for general adult medical examination with abnormal findings ICD-9: V70.0 ICD-10: Z00.01 07/05/2015 Active Polyneuropathy, unspecified ICD-9: 356.9 ICD-10: G62.9 10/15/2014 Active Unspecified inflammatory spondylopathy, sacral and sacrococcygeal region ICD-9: 720.9 ICD-10: M46.98 06/06/2015 Active Other fatigue ICD-9: 780.79 ICD-10: R53.83 04/30/2015 Active Plantar fascial fibromatosis ICD-9: 728.71 ICD-10: M72.2 03/25/2015 Active Hyperlipidemia Unknown 01/30/2015 Active ALLERGIC RHINITIS ICD- 9: 477.9 01/29/2015 Active Chronic pain syndrome ICD-9: 338.4 10/15/2014 Active Hyperlipidemia ICD-9: 272.4 01/29/2015 Active Elevated blood sugar ICD-9: 790.29 01/25/2015 Active Depression Unknown 10/16/2014 Active Hypertension Unknown 10/16/2014 Active Osteoarthritis Unknown 10/16/2014 Active DEPRESSIVE DISORDER NEC ICD-9: 311 10/15/2014 Active ESOPHAGEAL REFLUX ICD- 9: 530.81 10/15/2014 Active OSTEOARTH NOS-UNSPEC ICD-9: 715.90 10/15/2014 Active Peripheral neuropathy ICD-9: 356.9 10/15/2014 Active Medications Medication Codes Instructions Start Date Stop Date Status Fill Instructions Zithromax Z-Myles 250 mg tablet RxNorm: 849198 1 Tablet(s) PO UD 06/25/2017 No Stop Date Active hydrocodone 10 mg-acetaminophen 325 mg tablet RxNorm: 902096 1 Tablet(s) PO Q6 as needed 06/17/2017 07/16/2017 Active Aricept 10 mg tablet RxNorm: 695007 1 Tablet(s) PO daily 201608/05/2017 Active Namenda XR 28 mg capsule sprinkle,extended release RxNorm: 084843 1 Capsule(s) PO daily 05/08/2017 05/02/2018 Active hydrocodone 10 mg-acetaminophen 325 mg tablet RxNorm: 039523 1 Tablet(s) PO Q6 as needed 05/05/2017 06/03/2017 Inactive hydrocodone 10 mg-acetaminophen 325 mg tablet RxNorm: 646606 1 Tablet(s) PO Q6 as needed 04/06/2017 05/04/2017 Inactive diazepam 2 mg tablet RxNorm: 796214 1/2 - 1 Tablet(s) PO BID as needed 03/18/2017 No Stop Date Active Cymbalta 30 mg capsule,delayed release RxNorm: 131670 1 Capsule(s) PO daily 03/09/2017 10/04/2017 Active levetiracetam 500 mg tablet RxNorm: 344538 1 Tablet(s) PO BID 03/09/2017 08/05/2017 Active pt to finish out supply of liquid then start on tablets pantoprazole 40 mg tablet,delayed release RxNorm: 264301 1 Tablet(s) PO daily 03/09/2017 07/06/2017 Active Aricept 5 mg tablet RxNorm: 021802 1 Tablet(s) PO daily 201605/07/2017 Inactive hydrocodone 10 mg-acetaminophen 325 mg tablet RxNorm: 240786 1 Tablet(s) PO Q6 as needed 12/04/2016 03/08/2017 Inactive hydrocodone 10 mg-acetaminophen 325 mg tablet RxNorm: 827606 1 Tablet(s) PO Q6 as needed 11/06/2016 12/03/2016 Inactive hydrocodone 10 mg-acetaminophen 325 mg tablet RxNorm: 948964 1 Tablet(s) PO Q6 as needed 10/08/2016 11/05/2016 Inactive Voltaren 1 % topical gel RxNorm: 320988 4 Gram(s) TOP TID as needed for pain as needed 09/25/2016 09/19/2017 Active hydrocodone 10 mg-acetaminophen 325 mg tablet RxNorm: 615715 1 Tablet(s) PO Q6 as needed 09/09/2016 10/07/2016 Inactive Voltaren 1 % topical gel RxNorm: 863409 1 Application TOP TID 09/08/2016 09/24/2016 Inactive Aricept 5 mg tablet RxNorm: 520977 1 Tablet(s) PO daily 201612/06/2016 Inactive Cymbalta 30 mg capsule,delayed release RxNorm: 658432 1 Capsule(s) PO daily 09/08/2016 12/06/2016 Inactive losartan 50 mg tablet RxNorm: 945099 1 Tablet(s) PO daily 201610/07/2016 Inactive clopidogrel 75 mg tablet RxNorm: 273565 75 MG PO DAILY 2016 No Stop Date Active hydrocodone 10 mg-acetaminophen 325 mg tablet RxNorm: 102242 1 Tablet(s) PO Q6 as needed 08/15/2016 09/08/2016 Inactive hydrocodone 10 mg-acetaminophen 325 mg tablet RxNorm: 083279 1 Tablet(s) PO Q6 as needed 07/18/2016 08/14/2016 Inactive Cymbalta 30 mg capsule,delayed release RxNorm: 476986 1 Capsule(s) PO daily 07/03/2016 09/07/2016 Inactive Aricept 5 mg tablet RxNorm: 504948 1 Tablet(s) PO daily 201608/01/2016 Inactive Namenda XR 28 mg capsule sprinkle,extended release RxNorm: 941155 1 Capsule(s) PO daily 07/03/2016 05/07/2017 Inactive diazepam 5 mg tablet RxNorm: 066598 Tablet(s) PO daily as needed TAKE 1/2 TO 1 TABLET BY MOUTH DAILY NEEDED FOR ANXIETY 06/25/2016 03/08/2017 Inactive hydrocodone 10 mg-acetaminophen 325 mg tablet RxNorm: 326743 1 Tablet(s) PO Q6 as needed 06/19/2016 07/17/2016 Inactive Namenda XR 28 mg capsule sprinkle,extended release RxNorm: 789010 1 Capsule(s) PO daily 06/19/2016 07/02/2016 Inactive gabapentin 100 mg capsule RxNorm: 670923 1 Capsule(s) PO TID 03/08/2017 Inactive hydrocodone 10 mg-acetaminophen 325 mg tablet RxNorm: 930439 1 Tablet(s) PO Q6 as needed 05/27/2016 06/18/2016 Inactive diazepam 5 mg tablet RxNorm: 681680 Tablet(s) TAKE 1/2 TO 1 TABLET BY MOUTH DAILY NEEDED FOR ANXIETY 05/15/20162016 Inactive hydrocodone 10 mg-acetaminophen 325 mg tablet RxNorm: 123238 1 Tablet(s) PO Q6 as needed 04/29/2016 05/26/2016 Inactive omeprazole 40 mg capsule,delayed release RxNorm: 442995 Capsule(s) 1 CAPSULE(S) PO DAILY 04/28/2016 03/08/2017 Inactive diazepam 5 mg tablet RxNorm: 988468 Tablet(s) TAKE 1/2 TO 1 TABLET BY MOUTH DAILY NEEDED FOR ANXIETY 04/14/20162015 Inactive hydrocodone 10 mg-acetaminophen 325 mg tablet RxNorm: 491877 1 Tablet(s) PO Q6 as needed 04/01/2016 04/28/2016 Inactive Namenda XR 28 mg capsule sprinkle,extended release RxNorm: 162225 1 Capsule(s) PO daily 03/13/2016 06/18/2016 Inactive Namenda XR 28 mg capsule sprinkle,extended release RxNorm: 663133 1 Capsule(s) PO daily 03/12/2016 03/12/2016 Inactive diazepam 5 mg tablet RxNorm: 966853 Tablet(s) TAKE 1/2 TO 1 TABLET BY MOUTH DAILY NEEDED FOR ANXIETY 02/25/20162015 Inactive Namenda XR 28 mg capsule sprinkle,extended release RxNorm: 714281 1 Capsule(s) PO daily 02/04/2016 03/11/2016 Inactive hydrocodone 10 mg-acetaminophen 325 mg tablet RxNorm: 057899 1 Tablet(s) PO Q6 as needed 02/04/2016 03/04/2016 Inactive omeprazole 40 mg capsule,delayed release RxNorm: 687637 1 CAPSULE(S) PO DAILY 01/23/2016 04/27/2016 Inactive [SAVINGS FOR NON-COVERED DRUGS -- BIN:[id number], PCN: ASPROD1, Group: XXXXX, ID# [id number], Questions: . THIS IS NOT INSURANCE.] sertraline 50 mg tablet RxNorm: 903627 TAKE 1 1/2 TABLET BY MOUTH ONCE DAILY 01/10/2016 03/08/2017 Inactive hydrocodone 10 mg-acetaminophen 325 mg tablet RxNorm: 564112 1 Tablet(s) PO Q6 as needed 01/07/2016 02/03/2016 Inactive diazepam 5 mg tablet RxNorm: 541181 Tablet(s) TAKE 1/2 TO 1 TABLET BY MOUTH DAILY NEEDED FOR ANXIETY 12/17/20152015 Inactive hydrocodone 10 mg-acetaminophen 325 mg tablet RxNorm: 470406 1 Tablet(s) PO Q6 as needed 12/10/2015 01/06/2016 Inactive gabapentin 100 mg capsule RxNorm: 576757 1 Capsule(s) PO TID 03/11/2016 Inactive gabapentin 100 mg capsule RxNorm: 638551 1 Capsule(s) PO TID 11/12/2015 Inactive hydrocodone 10 mg-acetaminophen 325 mg tablet RxNorm: 861739 1 Tablet(s) PO Q6 as needed 11/12/2015 12/09/2015 Inactive hydrocodone 10 mg-acetaminophen 325 mg tablet RxNorm: 137180 1 Tablet(s) PO Q6 as needed 10/16/2015 11/11/2015 Inactive hydrocodone 10 mg-acetaminophen 325 mg tablet RxNorm: 960045 1 Tablet(s) PO Q6 as needed 09/17/2015 10/15/2015 Inactive hydrocodone 10 mg-acetaminophen 325 mg tablet RxNorm: 564150 1 Tablet(s) PO Q6 as needed 08/16/2015 09/16/2015 Inactive diazepam 5 mg tablet RxNorm: 132477 Tablet(s) TAKE 1/2 TO 1 TABLET BY MOUTH DAILY NEEDED FOR ANXIETY 07/30/20152015 Inactive diazepam 5 mg tablet RxNorm: 375838 Tablet(s) TAKE 1/2 TO 1 TABLET BY MOUTH DAILY NEEDED FOR ANXIETY 07/27/20152015 Inactive hydrocodone 10 mg-acetaminophen 325 mg tablet RxNorm: 201937 1 Tablet(s) PO Q6 as needed 07/19/2015 08/15/2015 Inactive omeprazole 40 mg capsule,delayed release RxNorm: 652513 1 CAPSULE(S) PO DAILY 07/19/2015 01/14/2016 Inactive [SAVINGS FOR NON-COVERED DRUGS -- BIN:[id number], PCN: ASPROD1, Group: XXXXX, ID# [id number], Questions: . THIS IS NOT INSURANCE.] hydrocodone 10 mg-acetaminophen 325 mg tablet RxNorm: 451627 1 Tablet(s) PO Q6 as needed 06/20/2015 07/18/2015 Inactive baclofen 10 mg tablet RxNorm: 580434 1 Tablet(s) PO TID 201506/07/2015 Inactive baclofen 10 mg tablet RxNorm: 796938 1 Tablet(s) PO TID 201507/07/2015 Inactive diazepam 5 mg tablet RxNorm: 916566 TAKE 1/2 TO 1 TABLET BY MOUTH DAILY NEEDED FOR ANXIETY 05/29/2015 07/26/2015 Inactive sertraline 50 mg tablet RxNorm: 815520 1.5 Tablet(s) PO daily 05/02/2015 10/28/2015 Inactive sertraline 50 mg tablet RxNorm: 004630 1.5 Tablet(s) PO daily 05/01/2015 05/01/2015 Inactive patient to call when needed diazepam 5 mg tablet RxNorm: 013843 1/2-1 Tablet(s) PO QDAY PRN 05/01/2015 05/29/2015 Inactive hydrocodone 10 mg-acetaminophen 325 mg tablet RxNorm: 964454 1 Tablet(s) PO Q6 as needed 04/23/2015 06/19/2015 Inactive hydrocodone 10 mg-acetaminophen 325 mg tablet RxNorm: 684783 1 Tablet(s) PO Q6 as needed 03/26/2015 04/22/2015 Inactive hydrocodone 10 mg-acetaminophen 325 mg tablet RxNorm: 729211 1 Tablet(s) PO Q6 as needed 02/26/2015 03/25/2015 Inactive Lyrica 50 mg capsule RxNorm: 208397 1 Capsule(s) PO TID 201402/03/2016 Inactive Lyrica 50 mg capsule RxNorm: 768352 1 Capsule(s) PO TID 201402/05/2015 Inactive Fish Oil [place] 3-6-9 300 mg-1,000 mg capsule,delayed release RxNorm: 1 Capsule(s) PO BID 01/30/2015 08/10/2016 Inactive diazepam 5 mg tablet RxNorm: 569539 1 Tablet(s) PO Q8 as needed 01/30/2015 04/30/2015 Inactive hydrocodone 10 mg-acetaminophen 325 mg tablet RxNorm: 174164 1 Tablet(s) PO Q6 as needed 01/19/2015 02/25/2015 Inactive sertraline 50 mg tablet RxNorm: 636630 1 Tablet(s) PO daily 04/30/2015 Inactive hydrocodone 10 mg-acetaminophen 325 mg tablet RxNorm: 084757 1 Tablet(s) PO Q6 as needed 12/12/2014 01/18/2015 Inactive hydrocodone 10 mg-acetaminophen 325 mg tablet RxNorm: 023649 1 Tablet(s) PO Q6 as needed 11/09/2014 12/11/2014 Inactive diazepam 5 mg tablet RxNorm: 655357 1 Tablet(s) PO Q8 as needed 11/01/2014 01/29/2015 Inactive omeprazole 40 mg capsule,delayed release RxNorm: 459479 1 Capsule(s) PO daily 10/02/2014 04/30/2015 Inactive [SAVINGS FOR NON-COVERED DRUGS -- BIN:635167, PCN: ASPROD1, Group: XXXXX, ID# [id number], Questions: . THIS IS NOT INSURANCE.] omeprazole 40 mg capsule,delayed release RxNorm: 534444 1 Capsule(s) PO daily 10/02/2014 10/01/2014 Inactive atorvastatin 40 mg tablet RxNorm: 430336 1 Tablet(s) PO daily No Start Date Active Vitamin D3 oral RxNorm : 2418 oral No Start Date Active diclofenac sodium 75 mg tablet,delayed release RxNorm: 052375 2 Tablet(s) PO daily No Start Date 04/30/2015 Inactive diazepam 5 mg tablet RxNorm: 184017 1 Tablet(s) PO TID No Start Date 10/31/2014 Inactive Multi Vitamin oral RxNorm: oral No Start Date 03/08/2017 Inactive Flonase nasal RxNorm: 72938 nasal No Start Date 03/08/2017 Inactive gabapentin 100 mg tablet RxNorm: 979715 1 Tablet(s) PO TID No Start Date 02/06/2015 Inactive hydrocodone 10 mg-acetaminophen 325 mg tablet RxNorm: 175807 1 Tablet(s) PO QID No Start Date 11/08/2014 Inactive Zithromax Z-Myles 250 mg tablet RxNorm: 645791 1 Tablet(s) PO UD No Start Date 06/24/2017 Inactive clopidogrel 75 mg tablet RxNorm: 871343 1 Tablet(s) PO daily No Start Date 09/03/2016 Inactive sertraline 50 mg tablet RxNorm: 484114 1 Tablet(s) PO daily No Start Date 01/04/2015 Inactive Medication Administered No Medication Administered data Immunizations Vaccine Codes Date Status Influenza CVX: 141 03/18/2017 completed Influenza CVX: 141 06/16/2016 completed Influenza CVX: 141 03/26/2015 completed Influenza CVX: 141 02/15/2014 completed Assessments Condition Codes Effective Dates Encounter for immunization ICD-10: Z23 ICD-9: V04.81 03/18/2017 Essential (primary) hypertension ICD-10: I10 ICD-9: 401.1 03/18/2017 Major depressive disorder, recurrent, moderate ICD-10: F33.1 ICD-9: 296.32 03/18/2017 Generalized anxiety disorder ICD-10: F41.1 ICD-9: 300.00 03/18/2017 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 ICD-9: 435.2 03/18/2017 Dysuria ICD-10: R30.0 ICD-9: 788.1 03/17/2017 Underweight ICD-10: R63.6 ICD-9: 783.22 03/09/2017 Localization-related (focal) (partial) symptomatic epilepsy and epileptic syndromes with simple partial seizures, not intractable, without status epilepticus ICD-10: G40.109 ICD-9: 345.50 03/09/2017 Chronic pain syndrome ICD-10: G89.4 ICD-9: 338.4 12/09/2016 Mixed hyperlipidemia ICD-10: E78.2 ICD-9: 272.4 12/09/2016 Major depressive disorder, recurrent, mild ICD-10: F33.0 ICD-9: 296.31 12/09/2016 Personal history of transient ischemic attack (TIA), and cerebral infarction without residual deficits ICD-10: Z86.73 ICD-9: V12.54 09/08/2016 Low back pain ICD-10: M54.5 ICD-9: 724.2 09/08/2016 Other sleep apnea ICD-10: G47.39 ICD-9: 327.29 09/08/2016 Mild cognitive impairment, so stated ICD-10: G31.84 ICD-9: 331.83 07/03/2016 Headache ICD-10: R51 ICD-9: 784.0 12/17/2015 Encounter for general adult medical examination with abnormal findings ICD-10: Z00.01 ICD-9: V70.0 07/06/2015 Polyneuropathy, unspecified ICD-10: G62.9 ICD-9: 356.9 06/07/2015 Unspecified inflammatory spondylopathy, sacral and sacrococcygeal region ICD-10: M46.98 ICD-9: 720.9 06/07/2015 Other fatigue ICD-10: R53.83 ICD-9: 780.79 05/01/2015 Plantar 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 ICD-9: 728.71 03/26/2015 Chronic pain syndrome ICD-9: 338.4 2014 Hyperlipidemia ICD-9: 272.4 01/30/2015 ALLERGIC RHINITIS ICD-9: 477.9 2014 Elevated blood sugar ICD-9: 790.29 2014 Peripheral neuropathy ICD-9: 356.9 2014 ESOPHAGEAL REFLUX ICD-9: 530.81 2014 OSTEOARTH NOS-UNSPEC ICD-9: 715.90 2014 DEPRESSIVE DISORDER NEC ICD-9: 311 2014 Reason For Visit Reason For Visit Effective Dates Notes medication follow up 03/18/2017 Hospital Follow Up 03/09/2017 low back pain 12/09/2016 abnormal bleeding and bruising 09/08/2016 Hospital Follow Up 08/11/2016 back pain 07/03/2016 back pain 06/19/2016 back pain 02/04/2016 back pain 01/07/2016 back pain 12/17/2015 back pain 10/16/2015 back pain 08/16/2015 Annual Medicare Wellness Exam 07/06/2015 fatigue 06/07/2015 fatigue 05/01/2015 foot pain 03/26/2015 foot pain 03/13/2015 right back pain 01/30/2015 back pain 10/16/2014 Results Observation Observation Code Item Item Code Result Date Cbc With Differential Ord2 WBC 6.06 K/ul 03/09/2017 Cbc With Differential Ord2 RBC 4.45 M/ul 03/09/2017 Cbc With Differential Ord2 HGB 14.1 g/dl 03/09/2017 Cbc With Differential Ord2 HCT 41.6 % 03/09/2017 Cbc With Differential Ord2 Neut% 63.0 % 03/09/2017 Cbc With Differential Ord2 Lymph% 29.4 % 03/09/2017 Cbc With Differential Ord2 MCV 93.5 fl 03/09/2017 Cbc With Differential Ord2 Darke% 6.1 % 03/09/2017 Cbc With Differential Ord2 MCH 31.7 pg 03/09/2017 Cbc With Differential Ord2 Eos% 1.2 % 03/09/2017 Cbc With Differential Ord2 MCHC 33.9 pg 03/09/2017 Cbc With Differential Ord2 PLT 224 K/ul 03/09/2017 Cbc With Differential Ord2 Baso% 0.3 % 03/09/2017 Cbc With Differential Ord2 RDW 13.6 % 03/09/2017 Cbc With Differential Ord2 Neut ABS# 3.82 K/ul 03/09/2017 Cbc With Differential Ord2 Lymph ABS# 1.78 K/ul 03/09/2017 Cbc With Differential Ord2 Darke ABS# 0.4 K/ul 03/09/2017 Cbc With Differential Ord2 Eos ABS# 0.1 K/ul 03/09/2017 Cbc With Differential Ord2 Baso ABS# 0.0 K/ul 03/09/2017 Tsh Ord6 hTSH II 0.87 uIU/mL 03/09/2017 %Hba1C Ddb568 % HbA1c 61992-5 4.9 % 03/09/2017 %Hba1C Ryk738 Gluc Ave 94 mg/dL 03/09/2017 Comp Metabolic Mux143 NA 141 mEq/L 03/09/2017 Comp Metabolic Kou435 K 3.8 mEq/L 03/09/2017 Comp Metabolic Wai191 CL 105 mEq/L 03/09/2017 Comp Metabolic Leg048 CO2 29.0 mEq/L 03/09/2017 Comp Metabolic Stm551 ANION GAP 11 03/09/2017 Comp Metabolic Vkd286 GLUCOSE 98 mg/dL 03/09/2017 Comp Metabolic Gha028 Creat 0.7 mg/dL 03/09/2017 Comp Metabolic Nnp117 eGFR 93 ml/min/1.73m2 03/09/2017 Comp Metabolic Vrb811 BUN 11 mg/dL 03/09/2017 Comp Metabolic Pxt137 B/C Ratio 16.4 Ratio 03/09/2017 Comp Metabolic Nkg226 CALCIUM 9.5 mg/dL 03/09/2017 Comp Metabolic Beh528 ALK PHOS 90 U/L 03/09/2017 Comp Metabolic Uvq271 AST(SGOT) 21 U/L 03/09/2017 Comp Metabolic Swz544 ALT(SGPT) 15 U/L 03/09/2017 Comp Metabolic Byg139 BILI T 0.6 mg/dL 03/09/2017 Comp Metabolic Ekw927 ALBUMIN 4.5 g/dL 03/09/2017 Comp Metabolic Pic875 TPRO 6.4 g/dL 03/09/2017 Comp Metabolic Blo043 GLOB 1.9 g/dL 03/09/2017 Comp Metabolic Ldj981 A/G Ratio 2.3 Ratio 03/09/2017 Comp Metabolic Kvh116 Osmo 281 mOsmo 03/09/2017 Comp Metabolic Kcj461 NA 142 mEq/L 09/03/2016 Comp Metabolic Isj958 K 3.9 mEq/L 09/03/2016 Comp Metabolic Ydz115 CL 107 mEq/L 09/03/2016 Comp Metabolic Qgf775 CO2 26.0 mEq/L 09/03/2016 Comp Metabolic Vkb685 ANION GAP 13 09/03/2016 Comp Metabolic Gia951 GLUCOSE 107 mg/dL 09/03/2016 Comp Metabolic Lim021 Creat 0.7 mg/dL 09/03/2016 Comp Metabolic Mdj452 eGFR 85 ml/min/1.73m2 09/03/2016 Comp Metabolic Edo891 BUN 16 mg/dL 09/03/2016 Comp Metabolic Cih201 B/C Ratio 21.9 Ratio 09/03/2016 Comp Metabolic Diz260 CALCIUM 8.8 mg/dL 09/03/2016 Comp Metabolic Nfv471 ALK PHOS 51 U/L 09/03/2016 Comp Metabolic Wvf839 AST(SGOT) 24 U/L 09/03/2016 Comp Metabolic Znk548 ALT(SGPT) 20 U/L 09/03/2016 Comp Metabolic Vvf165 BILI T 0.7 mg/dL 09/03/2016 Comp Metabolic Tjk252 ALBUMIN 4.1 g/dL 09/03/2016 Comp Metabolic Vqm165 TPRO 6.1 g/dL 09/03/2016 Comp Metabolic Rqw353 GLOB 2.0 g/dL 09/03/2016 Comp Metabolic Wgw733 A/G Ratio 2.1 Ratio 09/03/2016 Comp Metabolic Pmt000 Osmo 285 mOsmo 09/03/2016 Cbc With Differential Ord2 WBC 6.16 K/ul 09/03/2016 Cbc With Differential Ord2 RBC 4.32 M/ul 09/03/2016 Cbc With Differential Ord2 HGB 13.1 g/dl 09/03/2016 Cbc With Differential Ord2 HCT 38.8 % 09/03/2016 Cbc With Differential Ord2 Neut% 66.8 % 09/03/2016 Cbc With Differential Ord2 MCV 89.8 fl 09/03/2016 Cbc With Differential Ord2 Lymph% 24.8 % 09/03/2016 Cbc With Differential Ord2 MCH 30.3 pg 09/03/2016 Cbc With Differential Ord2 Darke% 6.5 % 09/03/2016 Cbc With Differential Ord2 Eos% 1.3 % 09/03/2016 Cbc With Differential Ord2 MCHC 33.8 pg 09/03/2016 Cbc With Differential Ord2 Baso% 0.6 % 09/03/2016 Cbc With Differential Ord2 PLT 217 K/ul 09/03/2016 Cbc With Differential Ord2 RDW 15.3 % 09/03/2016 Cbc With Differential Ord2 Neut ABS# 4.11 K/ul 09/03/2016 Cbc With Differential Ord2 Lymph ABS# 1.53 K/ul 09/03/2016 Cbc With Differential Ord2 Darke ABS# 0.4 K/ul 09/03/2016 Cbc With Differential Ord2 Eos ABS# 0.1 K/ul 09/03/2016 Cbc With Differential Ord2 Baso ABS# 0.0 K/ul 09/03/2016 Lipid Ord30 CHOL 118 mg/dL 09/03/2016 Lipid Ord30 HDL 44.0 mg/dl 09/03/2016 Lipid Ord30 TRIG 93 mg/dL 09/03/2016 Lipid Ord30 LDL 55 mg/dL 09/03/2016 Lipid Ord30 C/HDL 2.7 Ratio 09/03/2016 Metabolic Ord15 NA 141 mEq/L 12/21/2015 Metabolic Ord15 K 4.0 mEq/L 12/21/2015 Metabolic Ord15 CL 105 mEq/L 12/21/2015 Metabolic Ord15 CO2 30.0 mEq/L 12/21/2015 Metabolic Ord15 GLUCOSE 112 mg/dL 12/21/2015 Metabolic Ord15 BUN 13 mg/dL 12/21/2015 Metabolic Ord15 Creat 0.8 mg/dL 12/21/2015 Metabolic Ord15 B/C Ratio 15.9 Ratio 12/21/2015 Metabolic Ord15 eGFR 74 ml/min/1.73m2 12/21/2015 Metabolic Ord15 Osmo 282 mOsmo 12/21/2015 Metabolic Ord15 ANION GAP 10 12/21/2015 Metabolic Ord15 CALCIUM 9.1 mg/dL 12/21/2015 Comp Metabolic Hfj881 NA 138 mEq/L 07/06/2015 Comp Metabolic Urt109 K 3.9 mEq/L 07/06/2015 Comp Metabolic Ook128 CL 103 mEq/L 07/06/2015 Comp Metabolic Lwy522 CO2 28.0 mEq/L 07/06/2015 Comp Metabolic Qjp472 ANION GAP 11 07/06/2015 Comp Metabolic Lix679 GLUCOSE 114 mg/dL 07/06/2015 Comp Metabolic Lcp327 Creat 0.7 mg/dL 07/06/2015 Comp Metabolic Xpi503 eGFR 97 ml/min/1.73m2 07/06/2015 Comp Metabolic Zlr354 BUN 11 mg/dL 07/06/2015 Comp Metabolic Ook572 B/C Ratio 16.9 Ratio 07/06/2015 Comp Metabolic Yoz665 CALCIUM 9.1 mg/dL 07/06/2015 Comp Metabolic Ayt209 ALK PHOS 57 U/L 07/06/2015 Comp Metabolic Lbe084 AST(SGOT) 26 U/L 07/06/2015 Comp Metabolic Zvs924 ALT(SGPT) 17 U/L 07/06/2015 Comp Metabolic Qte583 BILI T 0.6 mg/dL 07/06/2015 Comp Metabolic Pqw194 ALBUMIN 4.6 g/dL 07/06/2015 Comp Metabolic Eby314 TPRO 6.7 g/dL 07/06/2015 Comp Metabolic Pmy174 GLOB 2.1 g/dL 07/06/2015 Comp Metabolic Zok877 A/G Ratio 2.2 Ratio 07/06/2015 Comp Metabolic Aze916 Osmo 276 mOsmo 07/06/2015 Lipid Ord30 CHOL 228 mg/dL 07/06/2015 Lipid Ord30 HDL 48.0 mg/dl 07/06/2015 Lipid Ord30 TRIG 176 mg/dL 07/06/2015 Lipid Ord30 LDL 145 mg/dL 07/06/2015 Lipid Ord30 C/HDL 4.8 Ratio 07/06/2015 Tsh Ord6 hTSH II 0.74 uIU/mL 05/01/2015 Comp Metabolic Pyh211 NA 141 mEq/L 05/01/2015 Comp Metabolic Hgu298 K 4.0 mEq/L 05/01/2015 Comp Metabolic Kcl960 CL 106 mEq/L 05/01/2015 Comp Metabolic Yvb695 CO2 26.0 mEq/L 05/01/2015 Comp Metabolic Swx325 ANION GAP 13 05/01/2015 Comp Metabolic Fym786 GLUCOSE 124 mg/dL 05/01/2015 Comp Metabolic Tyh662 Creat 0.8 mg/dL 05/01/2015 Comp Metabolic Lkv733 eGFR 79 ml/min/1.73m2 05/01/2015 Comp Metabolic Col807 BUN 13 mg/dL 05/01/2015 Comp Metabolic Ujp262 B/C Ratio 16.7 Ratio 05/01/2015 Comp Metabolic Uxy373 CALCIUM 9.3 mg/dL 05/01/2015 Comp Metabolic Kjm104 ALK PHOS 54 U/L 05/01/2015 Comp Metabolic Pzb049 AST(SGOT) 21 U/L 05/01/2015 Comp Metabolic Kuj370 ALT(SGPT) 14 U/L 05/01/2015 Comp Metabolic Xho650 BILI T 0.5 mg/dL 05/01/2015 Comp Metabolic Ltx987 ALBUMIN 4.5 g/dL 05/01/2015 Comp Metabolic Vzr510 TPRO 6.4 g/dL 05/01/2015 Comp Metabolic Rig023 GLOB 1.9 g/dL 05/01/2015 Comp Metabolic Imh583 A/G Ratio 2.4 Ratio 05/01/2015 Comp Metabolic Ebv854 Osmo 283 mOsmo 05/01/2015 Cbc With Differential Ord2 WBC 7.1 K/uL 05/01/2015 Cbc With Differential Ord2 LYM 2.3 K/uL 05/01/2015 Cbc With Differential Ord2 LYM% 32.2 % 05/01/2015 Cbc With Differential Ord2 NEUT/GRAN 4.5 K/uL 05/01/2015 Cbc With Differential Ord2 NEUT/GRAN % 62.9 % 05/01/2015 Cbc With Differential Ord2 MID 0.3 K/uL 05/01/2015 Cbc With Differential Ord2 MID% 4.9 % 05/01/2015 Cbc With Differential Ord2 RBC 4.55 M/uL 05/01/2015 Cbc With Differential Ord2 HGB 13.1 g/dL 05/01/2015 Cbc With Differential Ord2 HCT 41.1 % 05/01/2015 Cbc With Differential Ord2 MCV 90 fL 05/01/2015 Cbc With Differential Ord2 MCH 29 pg 05/01/2015 Cbc With Differential Ord2 MCHC 32 g/dL 05/01/2015 Cbc With Differential Ord2 PLT 224 K/uL 05/01/2015 Cbc With Differential Ord2 RDW 16.8 % 05/01/2015 %Hba1C Pvw274 % HbA1c 51231-9 5.4 % 01/29/2015 %Hba1C Wzt469 Gluc Ave 108 mg/dL 01/29/2015 Lipid Ord30 CHOL 221 mg/dL 01/26/2015 Lipid Ord30 HDL 37.0 mg/dl 01/26/2015 Lipid Ord30 TRIG 274 mg/dL 01/26/2015 Lipid Ord30 LDL 129 mg/dL 01/26/2015 Lipid Ord30 C/HDL 6.0 Ratio 01/26/2015 Tsh Ord6 hTSH II 0.85 uIU/mL 01/26/2015 Comp Metabolic Yut118 NA 137 mEq/L 01/26/2015 Comp Metabolic Nwy226 K 4.0 mEq/L 01/26/2015 Comp Metabolic Utr684 CL 104 mEq/L 01/26/2015 Comp Metabolic Fpu489 CO2 27.0 mEq/L 01/26/2015 Comp Metabolic Kru768 ANION GAP 10 01/26/2015 Comp Metabolic Iit218 GLUCOSE 131 mg/dL 01/26/2015 Comp Metabolic Eno079 Creat 0.8 mg/dL 01/26/2015 Comp Metabolic Dow197 eGFR 77 ml/min/1.73m2 01/26/2015 Comp Metabolic Kwl859 BUN 16 mg/dL 01/26/2015 Comp Metabolic Naq257 B/C Ratio 20.0 Ratio 01/26/2015 Comp Metabolic Pxu607 CALCIUM 9.1 mg/dL 01/26/2015 Comp Metabolic Cjo230 ALK PHOS 66 U/L 01/26/2015 Comp Metabolic Ndx068 AST(SGOT) 24 U/L 01/26/2015 Comp Metabolic Hca320 ALT(SGPT) 20 U/L 01/26/2015 Comp Metabolic Ymu566 BILI T 0.4 mg/dL 01/26/2015 Comp Metabolic Ygw667 ALBUMIN 4.2 g/dL 01/26/2015 Comp Metabolic Ira389 TPRO 6.4 g/dL 01/26/2015 Comp Metabolic Xjz692 GLOB 2.2 g/dL 01/26/2015 Comp Metabolic Lub621 A/G Ratio 1.9 Ratio 01/26/2015 Comp Metabolic Cyf237 Osmo 277 mOsmo 01/26/2015 Cbc With Differential Ord2 WBC 5.7 K/uL 01/26/2015 Cbc With Differential Ord2 LYM 2.0 K/uL 01/26/2015 Cbc With Differential Ord2 LYM% 34.3 % 01/26/2015 Cbc With Differential Ord2 NEUT/GRAN 3.4 K/uL 01/26/2015 Cbc With Differential Ord2 NEUT/GRAN % 59.0 % 01/26/2015 Cbc With Differential Ord2 MID 0.4 K/uL 01/26/2015 Cbc With Differential Ord2 MID% 6.7 % 01/26/2015 Cbc With Differential Ord2 RBC 4.50 M/uL 01/26/2015 Cbc With Differential Ord2 HGB 13.1 g/dL 01/26/2015 Cbc With Differential Ord2 HCT 39.5 % 01/26/2015 Cbc With Differential Ord2 MCV 88 fL 01/26/2015 Cbc With Differential Ord2 MCH 29 pg 01/26/2015 Cbc With Differential Ord2 MCHC 33 g/dL 01/26/2015 Cbc With Differential Ord2 PLT 215 K/uL 01/26/2015 Cbc With Differential Ord2 RDW 15.5 % 01/26/2015 B12 Ded796 B12 669.00 pg/ml 01/26/2015 Review of Systems System Result Effective Dates Constitutional recent illness 03/18/2017 Constitutional No chills 03/18/2017 Constitutional No diaphoresis 03/18/2017 Constitutional fatigue 03/18/2017 Constitutional No fever 03/18/2017 Eyes No eye pain 03/18/2017 Eyes No vision change 03/18/2017 Ears/Nose/Throat/Neck No dizziness 2016 Ears/Nose/Throat/Neck No headache 2016 Cardiovascular No chest pain/pressure 05/2016 Cardiovascular No dyspnea 03/18/2017 Cardiovascular fatigue 03/18/2017 Respiratory No chest congestion 2016 Respiratory No cough 03/18/2017 Gastrointestinal No abdominal pain 2016 Gastrointestinal No constipation 2016 Gastrointestinal No diarrhea 03/18/2017 Gastrointestinal No nausea 03/18/2017 Gastrointestinal No vomiting 03/18/2017 Genitourinary/Nephrology No dysuria 03/18 Neurologic No alteration of consciousness 03/18/2017 Neurologic No dizziness 03/18/2017 Neurologic memory loss 03/18/2017 Neurologic weakness 03/18/2017 Psychiatric anxiety 03/18/2017 Psychiatric depression 03/18/2017 Endocrine diabetes mellitus type 2 2016 Dermatologic No rash 03/18/2017 Constitutional recent illness 03/09/2017 Constitutional No night sweats 2016 Constitutional No chills 03/09/2017 Constitutional No diaphoresis 03/09/2017 Constitutional fatigue 03/09/2017 Constitutional No fever 03/09/2017 Constitutional No insomnia 03/09/2017 Constitutional No malaise 03/09/2017 Constitutional weight loss 03/09/2017 Eyes No eye pain 03/09/2017 Eyes No vision change 03/09/2017 Ears/Nose/Throat/Neck No dizziness 2016 Ears/Nose/Throat/Neck No headache 2016 Cardiovascular No chest pain/pressure Cardiovascular No dyspnea 03/09/2017 Respiratory No chest congestion 2016 Respiratory No chest tightness 2016 Respiratory No cigarette smoking 2016 Respiratory No cough 03/09/2017 Gastrointestinal No abdominal pain 2016 Gastrointestinal No constipation 2016 Gastrointestinal No diarrhea 03/09/2017 Gastrointestinal No nausea 03/09/2017 Gastrointestinal No vomiting 03/09/2017 Genitourinary/Nephrology No dysuria 03/09 Genitourinary/Nephrology No polyuria Musculoskeletal No stiffness 03/09/2017 Musculoskeletal No swelling 03/09/2017 Musculoskeletal No back pain 03/09/2017 Dermatologic No rash 03/09/2017 Dermatologic No sores 03/09/2017 Neurologic No alteration of consciousness 03/09/2017 Neurologic No dizziness 03/09/2017 Neurologic memory loss 03/09/2017 Psychiatric No anxiety 03/09/2017 Psychiatric depression 03/09/2017 Cardiovascular fatigue 03/09/2017 Musculoskeletal No arthralgia(s) 2016 Neurologic weakness 03/09/2017 Endocrine diabetes mellitus type 2 2016 Constitutional No recent illness 2016 Constitutional No anorexia 12/09/2016 Constitutional No night sweats 2016 Constitutional No chills 12/09/2016 Constitutional No diaphoresis 12/09/2016 Constitutional No fatigue 12/09/2016 Constitutional No fever 12/09/2016 Constitutional No insomnia 12/09/2016 Constitutional No malaise 12/09/2016 Eyes No eye discharge 12/09/2016 Eyes No eye erythema 12/09/2016 Ears/Nose/Throat/Neck No dizziness 2016 Ears/Nose/Throat/Neck No headache 2016 Cardiovascular No chest pain/pressure Respiratory No chest tightness 2016 Respiratory No cigarette smoking 2016 Respiratory No cough 12/09/2016 Respiratory No dyspnea 12/09/2016 Respiratory No pedal edema 12/09/2016 Respiratory No snoring 12/09/2016 Respiratory No wheezing 12/09/2016 Gastrointestinal No constipation 2016 Gastrointestinal No diarrhea 12/09/2016 Genitourinary/Nephrology No dysuria 12/09 Musculoskeletal back pain 12/09/2016 Musculoskeletal No joint complaint 2016 Musculoskeletal No muscle weakness 2016 Dermatologic No rash 12/09/2016 Dermatologic No sores 12/09/2016 Neurologic No alteration of consciousness 12/09/2016 Neurologic memory loss 12/09/2016 Psychiatric No anxiety 12/09/2016 Psychiatric No depression 12/09/2016 Constitutional No recent illness 2016 Constitutional No anorexia 09/08/2016 Constitutional No night sweats 2016 Constitutional No chills 09/08/2016 Constitutional No diaphoresis 09/08/2016 Constitutional No fatigue 09/08/2016 Constitutional No fever 09/08/2016 Constitutional No insomnia 09/08/2016 Constitutional No malaise 09/08/2016 Constitutional No weight loss 09/08/2016 Constitutional No weight gain 09/08/2016 Constitutional No obesity 09/08/2016 Eyes No eye pain 09/08/2016 Eyes No vision change 09/08/2016 Ears/Nose/Throat/Neck No dizziness 2016 Ears/Nose/Throat/Neck No headache 2016 Cardiovascular No chest pain/pressure Cardiovascular No dyspnea 09/08/2016 Respiratory No chest congestion 2016 Respiratory No chest tightness 2016 Respiratory No cigarette smoking 2016 Respiratory No cough 09/08/2016 Gastrointestinal No diarrhea 09/08/2016 Gastrointestinal No constipation 2016 Gastrointestinal No abdominal pain 2016 Gastrointestinal No nausea 09/08/2016 Gastrointestinal No vomiting 09/08/2016 Genitourinary/Nephrology No dysuria 09/08 Genitourinary/Nephrology No anuria/oliguria 09/08/2016 Genitourinary/Nephrology No polyuria Musculoskeletal stiffness 09/08/2016 Musculoskeletal swelling 09/08/2016 Musculoskeletal arthralgia(s) 09/08/2016 Musculoskeletal back pain 09/08/2016 Dermatologic No rash 09/08/2016 Dermatologic No sores 09/08/2016 Neurologic No alteration of consciousness 09/08/2016 Neurologic No dizziness 09/08/2016 Psychiatric No anxiety 09/08/2016 Psychiatric No depression 09/08/2016 Neurologic memory loss 09/08/2016 Constitutional No recent illness 2016 Constitutional No anorexia 08/11/2016 Constitutional No night sweats 2016 Constitutional No chills 08/11/2016 Constitutional No diaphoresis 08/11/2016 Constitutional No fatigue 08/11/2016 Constitutional No fever 08/11/2016 Constitutional No insomnia 08/11/2016 Constitutional No malaise 08/11/2016 Eyes No eye discharge 08/11/2016 Eyes No eye erythema 08/11/2016 Ears/Nose/Throat/Neck No dizziness 2016 Ears/Nose/Throat/Neck No headache 2016 Cardiovascular No chest pain/pressure Gastrointestinal No constipation 2016 Gastrointestinal No diarrhea 08/11/2016 Genitourinary/Nephrology No dysuria 08/11 Musculoskeletal back pain 08/11/2016 Musculoskeletal No joint complaint 2016 Musculoskeletal No muscle weakness 2016 Dermatologic No rash 08/11/2016 Dermatologic No sores 08/11/2016 Neurologic No alteration of consciousness 08/11/2016 Neurologic memory loss 08/11/2016 Psychiatric No anxiety 08/11/2016 Psychiatric No depression 08/11/2016 Respiratory No chest tightness 2016 Respiratory No cigarette smoking 2016 Respiratory No cough 08/11/2016 Respiratory No dyspnea 08/11/2016 Respiratory No pedal edema 08/11/2016 Respiratory No snoring 08/11/2016 Respiratory No wheezing 08/11/2016 Constitutional No recent illness 2016 Constitutional No chills 07/03/2016 Constitutional No diaphoresis 07/03/2016 Constitutional No fever 07/03/2016 Eyes No vision change 07/03/2016 Cardiovascular No chest pain/pressure Cardiovascular No dyspnea 07/03/2016 Respiratory No chest congestion 2016 Respiratory No cough 07/03/2016 Gastrointestinal No abdominal pain 2016 Gastrointestinal No constipation 2016 Gastrointestinal No diarrhea 07/03/2016 Gastrointestinal No nausea 07/03/2016 Gastrointestinal No vomiting 07/03/2016 Dermatologic No rash 07/03/2016 Dermatologic No sores 07/03/2016 Neurologic No alteration of consciousness 07/03/2016 Eyes No eye erythema 07/03/2016 Ears/Nose/Throat/Neck No nasal discharge 07/03/2016 Ears/Nose/Throat/Neck No nasal allergies 07/03/2016 Respiratory No dyspnea 07/03/2016 Musculoskeletal back pain 07/03/2016 Neurologic memory loss 07/03/2016 Constitutional No recent illness 2016 Constitutional No anorexia 06/19/2016 Constitutional No night sweats 2016 Constitutional No chills 06/19/2016 Constitutional No diaphoresis 06/19/2016 Constitutional No fatigue 06/19/2016 Constitutional No fever 06/19/2016 Constitutional No insomnia 06/19/2016 Constitutional No malaise 06/19/2016 Constitutional No weight loss 06/19/2016 Constitutional No weight gain 06/19/2016 Constitutional No obesity 06/19/2016 Eyes No eye pain 06/19/2016 Eyes No vision change 06/19/2016 Ears/Nose/Throat/Neck No dizziness 2016 Ears/Nose/Throat/Neck No headache 2016 Cardiovascular No chest pain/pressure 06/2016 Cardiovascular No dyspnea 06/19/2016 Cardiovascular No exercise intolerance Respiratory No chest congestion 2016 Respiratory No cigarette smoking 2016 Respiratory No chest tightness 2016 Respiratory No cough 06/19/2016 Gastrointestinal No abdominal pain 2016 Gastrointestinal No constipation 2016 Gastrointestinal No diarrhea 06/19/2016 Gastrointestinal No nausea 06/19/2016 Gastrointestinal No vomiting 06/19/2016 Genitourinary/Nephrology No anuria/oliguria 06/19/2016 Genitourinary/Nephrology No dysuria 06/19 Genitourinary/Nephrology No flank pain Musculoskeletal No stiffness 06/19/2016 Musculoskeletal No swelling 06/19/2016 Musculoskeletal No arthralgia(s) 2016 Musculoskeletal No bone fracture 2016 Musculoskeletal No back pain 06/19/2016 Musculoskeletal No bone pain 06/19/2016 Dermatologic No rash 06/19/2016 Dermatologic No sores 06/19/2016 Neurologic No dizziness 06/19/2016 Neurologic No alteration of consciousness 06/19/2016 Neurologic No hearing loss 06/19/2016 Psychiatric No anxiety 06/19/2016 Psychiatric No depression 06/19/2016 Hematologic/Lymphatic No abnormal ecchymoses 06/19/2016 Hematologic/Lymphatic No abnormal bleeding and bruising 06/19/2016 Constitutional No recent illness 2015 Constitutional No anorexia 02/04/2016 Constitutional No night sweats 2015 Constitutional No chills 02/04/2016 Constitutional No diaphoresis 02/04/2016 Constitutional No fatigue 02/04/2016 Constitutional No fever 02/04/2016 Constitutional No insomnia 02/04/2016 Constitutional No malaise 02/04/2016 Constitutional No weight loss 02/04/2016 Constitutional No weight gain 02/04/2016 Constitutional No obesity 02/04/2016 Eyes No eye discharge 02/04/2016 Eyes No eye erythema 02/04/2016 Ears/Nose/Throat/Neck No dizziness 2015 Ears/Nose/Throat/Neck No headache 2015 Cardiovascular No chest pain/pressure Gastrointestinal No constipation 2015 Gastrointestinal No diarrhea 02/04/2016 Genitourinary/Nephrology No dysuria 02/03 Musculoskeletal back pain 02/04/2016 Musculoskeletal No joint complaint 2015 Musculoskeletal No muscle weakness 2015 Dermatologic No rash 02/04/2016 Dermatologic No sores 02/04/2016 Neurologic No alteration of consciousness 02/04/2016 Neurologic memory loss 02/04/2016 Constitutional No recent illness 2015 Constitutional No anorexia 01/07/2016 Constitutional No night sweats 2015 Constitutional No chills 01/07/2016 Constitutional No diaphoresis 01/07/2016 Constitutional No fatigue 01/07/2016 Constitutional No fever 01/07/2016 Constitutional No insomnia 01/07/2016 Constitutional No malaise 01/07/2016 Constitutional No weight loss 01/07/2016 Constitutional No weight gain 01/07/2016 Constitutional No obesity 01/07/2016 Eyes No eye discharge 01/07/2016 Eyes No eye erythema 01/07/2016 Ears/Nose/Throat/Neck No dizziness 2015 Ears/Nose/Throat/Neck No headache 2015 Cardiovascular No chest pain/pressure Gastrointestinal No constipation 2015 Gastrointestinal No diarrhea 01/07/2016 Genitourinary/Nephrology No dysuria 01/06 Musculoskeletal back pain 01/07/2016 Musculoskeletal No joint complaint 2015 Musculoskeletal No muscle weakness 2015 Dermatologic No rash 01/07/2016 Dermatologic No sores 01/07/2016 Neurologic No alteration of consciousness 01/07/2016 Neurologic memory loss 01/07/2016 Constitutional No recent illness 2015 Constitutional No anorexia 12/17/2015 Constitutional No night sweats 2015 Constitutional No chills 12/17/2015 Constitutional No diaphoresis 12/17/2015 Constitutional No fatigue 12/17/2015 Constitutional No fever 12/17/2015 Constitutional No insomnia 12/17/2015 Constitutional No malaise 12/17/2015 Constitutional No weight loss 12/17/2015 Constitutional No weight gain 12/17/2015 Constitutional No obesity 12/17/2015 Cardiovascular No chest pain/pressure 05/2015 Gastrointestinal No constipation 2015 Gastrointestinal No diarrhea 12/17/2015 Genitourinary/Nephrology No dysuria 12/16 Musculoskeletal back pain 12/17/2015 Musculoskeletal No joint complaint 2015 Musculoskeletal No muscle weakness 2015 Dermatologic No rash 12/17/2015 Dermatologic No sores 12/17/2015 Eyes No eye erythema 12/17/2015 Eyes No eye discharge 12/17/2015 Ears/Nose/Throat/Neck No dizziness 2015 Ears/Nose/Throat/Neck No headache 2015 Constitutional No recent illness 2015 Constitutional No anorexia 10/16/2015 Constitutional No night sweats 2015 Constitutional No chills 10/16/2015 Constitutional No diaphoresis 10/16/2015 Constitutional No fatigue 10/16/2015 Constitutional No fever 10/16/2015 Constitutional No insomnia 10/16/2015 Constitutional No malaise 10/16/2015 Constitutional No weight loss 10/16/2015 Constitutional No weight gain 10/16/2015 Constitutional No obesity 10/16/2015 Cardiovascular No chest pain/pressure Gastrointestinal No constipation 2015 Gastrointestinal No diarrhea 10/16/2015 Genitourinary/Nephrology No dysuria 10/15 Musculoskeletal back pain 10/16/2015 Musculoskeletal No joint complaint 2015 Musculoskeletal No muscle weakness 2015 Musculoskeletal myalgias 10/16/2015 Dermatologic No rash 10/16/2015 Dermatologic No sores 10/16/2015 Constitutional No recent illness 2015 Constitutional No anorexia 08/16/2015 Constitutional No night sweats 2015 Constitutional No chills 08/16/2015 Constitutional No diaphoresis 08/16/2015 Constitutional No fatigue 08/16/2015 Constitutional No fever 08/16/2015 Constitutional No insomnia 08/16/2015 Constitutional No malaise 08/16/2015 Constitutional No weight loss 08/16/2015 Constitutional No weight gain 08/16/2015 Constitutional No obesity 08/16/2015 Cardiovascular No chest pain/pressure Musculoskeletal back pain 08/16/2015 Musculoskeletal No joint complaint 2015 Musculoskeletal No muscle weakness 2015 Musculoskeletal myalgias 08/16/2015 Gastrointestinal No constipation 2015 Gastrointestinal No diarrhea 08/16/2015 Genitourinary/Nephrology No dysuria 08/15 Dermatologic No rash 08/16/2015 Dermatologic No sores 08/16/2015 Constitutional No recent illness 2015 Constitutional No malaise 07/06/2015 Constitutional No insomnia 07/06/2015 Ears/Nose/Throat/Neck nasal allergies Ears/Nose/Throat/Neck No nasal discharge 07/06/2015 Ears/Nose/Throat/Neck No headache 2015 Ears/Nose/Throat/Neck No dizziness 2015 Cardiovascular No chest pain/pressure Cardiovascular No dyspnea 07/06/2015 Cardiovascular No edema 07/06/2015 Constitutional No anorexia 07/06/2015 Constitutional No night sweats 2015 Constitutional No chills 07/06/2015 Constitutional No diaphoresis 07/06/2015 Constitutional fatigue 07/06/2015 Constitutional No fever 07/06/2015 Eyes No eye discharge 07/06/2015 Eyes No eye erythema 07/06/2015 Ears/Nose/Throat/Neck No otalgia 2015 Cardiovascular No near-syncope/dizziness 07/06/2015 Respiratory No productive sputum 2015 Respiratory No chest congestion 2015 Respiratory No cough 07/06/2015 Gastrointestinal No abdominal pain 2015 Gastrointestinal No constipation 2015 Gastrointestinal No diarrhea 07/06/2015 Gastrointestinal No nausea 07/06/2015 Gastrointestinal No vomiting 07/06/2015 Genitourinary/Nephrology No dysuria 07/06 Dermatologic No rash 07/06/2015 Dermatologic No sores 07/06/2015 Neurologic No alteration of consciousness 07/06/2015 Psychiatric depression 07/06/2015 Musculoskeletal back pain 07/06/2015 Constitutional No recent illness 2015 Constitutional No anorexia 06/07/2015 Constitutional No night sweats 2015 Constitutional No chills 06/07/2015 Constitutional No diaphoresis 06/07/2015 Constitutional fatigue 06/07/2015 Constitutional No fever 06/07/2015 Constitutional No insomnia 06/07/2015 Constitutional No malaise 06/07/2015 Eyes No eye discharge 06/07/2015 Eyes No eye erythema 06/07/2015 Ears/Nose/Throat/Neck headache 2015 Ears/Nose/Throat/Neck No otalgia 2015 Cardiovascular No chest pain/pressure Cardiovascular No dyspnea 06/07/2015 Respiratory No productive sputum 2015 Respiratory No cough 06/07/2015 Gastrointestinal No abdominal pain 2015 Gastrointestinal No constipation 2015 Gastrointestinal No diarrhea 06/07/2015 Genitourinary/Nephrology No dysuria 06/07 Musculoskeletal back pain 06/07/2015 Dermatologic No rash 06/07/2015 Dermatologic No sores 06/07/2015 Neurologic No alteration of consciousness 06/07/2015 Psychiatric depression 06/07/2015 Ears/Nose/Throat/Neck No dizziness 2015 Cardiovascular No near-syncope/dizziness 06/07/2015 Cardiovascular No palpitations 2015 Respiratory No chest congestion 2015 Gastrointestinal No nausea 06/07/2015 Gastrointestinal No vomiting 06/07/2015 Constitutional No recent illness 2014 Constitutional No anorexia 05/01/2015 Constitutional No night sweats 2014 Constitutional No chills 05/01/2015 Constitutional No diaphoresis 05/01/2015 Constitutional fatigue 05/01/2015 Constitutional No fever 05/01/2015 Constitutional No insomnia 05/01/2015 Constitutional No malaise 05/01/2015 Constitutional No weight loss 05/01/2015 Constitutional No weight gain 05/01/2015 Eyes No eye discharge 05/01/2015 Eyes No eye erythema 05/01/2015 Ears/Nose/Throat/Neck headache 2014 Ears/Nose/Throat/Neck No otalgia 2014 Cardiovascular No chest pain/pressure Cardiovascular No dyspnea 05/01/2015 Respiratory No productive sputum 2014 Respiratory No cough 05/01/2015 Gastrointestinal No abdominal pain 2014 Gastrointestinal No constipation 2014 Gastrointestinal No diarrhea 05/01/2015 Genitourinary/Nephrology No dysuria 05/01 Musculoskeletal back pain 05/01/2015 Dermatologic No sores 05/01/2015 Dermatologic No rash 05/01/2015 Neurologic No alteration of consciousness 05/01/2015 Psychiatric depression 05/01/2015 Constitutional No recent illness 2014 Constitutional No anorexia 03/26/2015 Constitutional No night sweats 2014 Constitutional No chills 03/26/2015 Constitutional No diaphoresis 03/26/2015 Constitutional fatigue 03/26/2015 Constitutional No fever 03/26/2015 Constitutional No insomnia 03/26/2015 Constitutional No malaise 03/26/2015 Constitutional No weight loss 03/26/2015 Constitutional No weight gain 03/26/2015 Musculoskeletal joint complaint 2014 Dermatologic No rash 03/26/2015 Dermatologic No sores 03/26/2015 Neurologic No alteration of consciousness 03/26/2015 Constitutional No recent illness 2014 Constitutional No anorexia 03/13/2015 Constitutional No night sweats 2014 Constitutional No chills 03/13/2015 Constitutional No diaphoresis 03/13/2015 Constitutional fatigue 03/13/2015 Constitutional No fever 03/13/2015 Constitutional No insomnia 03/13/2015 Constitutional No malaise 03/13/2015 Constitutional No weight loss 03/13/2015 Constitutional No weight gain 03/13/2015 Musculoskeletal joint complaint 2014 Dermatologic No rash 03/13/2015 Dermatologic No sores 03/13/2015 Neurologic No alteration of consciousness 03/13/2015 Constitutional No recent illness 2014 Constitutional No chills 01/30/2015 Constitutional No fatigue 01/30/2015 Constitutional No fever 01/30/2015 Ears/Nose/Throat/Neck No dizziness 2014 Ears/Nose/Throat/Neck No headache 2014 Cardiovascular No chest pain/pressure Cardiovascular No near-syncope/dizziness 01/30/2015 Cardiovascular No palpitations 2014 Respiratory No chest congestion 2014 Respiratory No cough 01/30/2015 Gastrointestinal No abdominal pain 2014 Gastrointestinal No constipation 2014 Gastrointestinal No diarrhea 01/30/2015 Gastrointestinal No nausea 01/30/2015 Gastrointestinal No vomiting 01/30/2015 Genitourinary/Nephrology No dysuria 01/30 Neurologic No alteration of consciousness 01/30/2015 Constitutional No anorexia 01/30/2015 Constitutional No night sweats 2014 Constitutional No diaphoresis 01/30/2015 Constitutional No insomnia 01/30/2015 Constitutional No malaise 01/30/2015 Constitutional No weight loss 01/30/2015 Constitutional No weight gain 01/30/2015 Eyes No eye discharge 01/30/2015 Eyes No eye erythema 01/30/2015 Ears/Nose/Throat/Neck nasal allergies Ears/Nose/Throat/Neck nasal discharge Musculoskeletal joint complaint 2014 Musculoskeletal back pain 01/30/2015 Dermatologic No rash 01/30/2015 Constitutional No chills 10/16/2014 Constitutional No fatigue 10/16/2014 Constitutional No fever 10/16/2014 Constitutional No recent illness 2014 Ears/Nose/Throat/Neck No dizziness 2014 Ears/Nose/Throat/Neck No headache 2014 Cardiovascular No chest pain/pressure 05/2014 Cardiovascular No near-syncope/dizziness 10/16/2014 Cardiovascular No palpitations 2014 Respiratory No chest congestion 2014 Respiratory No cough 10/16/2014 Gastrointestinal No abdominal pain 2014 Gastrointestinal No constipation 2014 Gastrointestinal No diarrhea 10/16/2014 Gastrointestinal No nausea 10/16/2014 Gastrointestinal No vomiting 10/16/2014 Genitourinary/Nephrology No dysuria 10/16 Neurologic No alteration of consciousness 10/16/2014 Physical Exam Exam Name System Name Item Name Status Result Effective Dates Notes Full Exam - General 1995 Eyes conjunctiva /eyelids Overall: conjunctiva clear 03/18/2017 None Full Exam - General 1994 Eyes conjunctiva /eyelids Overall: cornea clear 03/18/2017 None Full Exam - General 1994 Eyes conjunctiva /eyelids Overall: eyelids normal 03/18/2017 None Full Exam - General 1994 Eyes pupils and irises Overall: pupils equal, round, reactive to light and accomodation 03/18/2017 None Full Exam - General 1994 Ears/Nose/Throat otoscopic exam Overall: external auditory canals clear 03/18/2017 None Full Exam - General 1994 Ears/Nose/Throat otoscopic exam Overall: tympanic membranes clear 03/18/2017 None Full Exam - General 1994 Ears/Nose/Throat lips/teeth/gingiva Overall: benign lips 03/18/2017 None Full Exam - General 1994 Ears/Nose/Throat lips/teeth/gingiva Lips: dry 03/18/2017 None Full Exam - General 1994 Ears/Nose/Throat lips/teeth/gingiva Teeth: missing teeth 03/18/2017 None Full Exam - General 1994 Ears/Nose/Throat oral cavity/pharynx/larynx Overall: oral mucosa clear 03/18/2017 None Full Exam - General 1994 Respiratory auscultation Overall: breath sounds clear bilaterally 03/18/2017 None Full Exam - General 1994 Respiratory respiratory effort/rhythm Overall: no retractions 03/18/2017 None Full Exam - General 1994 Respiratory respiratory effort/rhythm Overall: normal rate 03/18/2017 None Full Exam - General 1994 Cardiovascular auscultation of heart Overall: regular rate 03/18/2017 None Full Exam - General 1994 Cardiovascular auscultation of heart Overall: normal heart sounds 03/18/2017 None Full Exam - General 1994 Lymphatic neck nodes Overall: anterior cervical chain benign 03/18/2017 None Full Exam - General 1994 Lymphatic neck nodes Overall: posterior cervical chain benign 03/18/2017 None Full Exam - General 1994 Musculoskeletal gait and station Overall: normal gait 03/18/2017 None Full Exam - General 1994 Musculoskeletal gait and station Overall: normal station 03/18/2017 None Full Exam - General 1994 Musculoskeletal head and neck Overall: head atraumatic 03/18/2017 None Full Exam - General 1994 Neurologic motor Overall: normal bulk, tone 03/18/2017 None Full Exam - General 1994 Psychiatric orientation/consciousness Overall: oriented to person, place and time 03/18/2017 None Full Exam - General 1994 Psychiatric mood and affect Overall: normal mood and affect 03/18/2017 None Full Exam - General 1994 Psychiatric appearance Overall: well-groomed, good eye contact 03/18/2017 None Full Exam - General 1994 Psychiatric speech Overall: normal quality, no aphasia 03/18/2017 None Full Exam - General 1994 Constitutional general appearance Overall: well developed 03/18/2017 None Full Exam - General 1994 Constitutional general appearance Overall: well nourished 03/18/2017 None Full Exam - General 1994 Constitutional general appearance Evidence of Distress: agitated 03/18/2017 None Full Exam - General 1994 Constitutional general appearance Evidence of Distress: anxious 03/18/2017 None Full Exam - General 1994 Psychiatric speech Rate of production: slow 03/18/2017 None Full Exam - General 1994 Constitutional general appearance Development: well developed 03/09/2017 None Full Exam - General 1994 Constitutional general appearance Development: appears stated age 1003/09/2017 None Full Exam - General 1994 Eyes conjunctiva /eyelids Overall: conjunctiva clear 03/09/2017 None Full Exam - General 1994 Eyes conjunctiva /eyelids Overall: cornea clear 03/09/2017 None Full Exam - General 1994 Eyes conjunctiva /eyelids Overall: eyelids normal 03/09/2017 None Full Exam - General 1994 Eyes pupils and irises Overall: pupils equal, round, reactive to light and accomodation 03/09/2017 None Full Exam - General 1994 Ears/Nose/Throat otoscopic exam Overall: external auditory canals clear 03/09/2017 None Full Exam - General 1994 Ears/Nose/Throat otoscopic exam Overall: tympanic membranes clear 03/09/2017 None Full Exam - General 1994 Ears/Nose/Throat lips/teeth/gingiva Overall: benign lips 03/09/2017 None Full Exam - General 1994 Ears/Nose/Throat lips/teeth/gingiva Lips: dry 03/09/2017 None Full Exam - General 1994 Ears/Nose/Throat lips/teeth/gingiva Teeth: missing teeth 03/09/2017 None Full Exam - General 1994 Ears/Nose/Throat oral cavity/pharynx/larynx Overall: oral mucosa clear 03/09/2017 None Full Exam - General 1994 Respiratory auscultation Overall: breath sounds clear bilaterally 03/09/2017 None Full Exam - General 1994 Respiratory respiratory effort/rhythm Overall: no retractions 03/09/2017 None Full Exam - General 1994 Respiratory respiratory effort/rhythm Overall: normal rate 03/09/2017 None Full Exam - General 1994 Cardiovascular auscultation of heart Overall: regular rate 03/09/2017 None Full Exam - General 1994 Cardiovascular auscultation of heart Overall: normal heart sounds 03/09/2017 None Full Exam - General 1994 Abdomen abdominal exam Overall: no tenderness 03/09/2017 None Full Exam - General 1994 Abdomen abdominal exam Overall: normal bowel sounds 03/09/2017 None Full Exam - General 1994 Lymphatic neck nodes Overall: anterior cervical chain benign 03/09/2017 None Full Exam - General 1994 Lymphatic neck nodes Overall: posterior cervical chain benign 03/09/2017 None Full Exam - General 1994 Musculoskeletal gait and station Overall: normal gait 03/09/2017 None Full Exam - General 1994 Musculoskeletal gait and station Overall: normal station 03/09/2017 None Full Exam - General 1994 Musculoskeletal head and neck Overall: head atraumatic 03/09/2017 None Full Exam - General 1994 Musculoskeletal head and neck Overall: cervical spine benign 03/09/2017 None Full Exam - General 1994 Integument inspection of skin Overall: few scattered moles, no gross abnormalities 03/09/2017 None Full Exam - General 1994 Neurologic mental status Overall: alert 03/09/2017 None Full Exam - General 1994 Neurologic mental status Overall: oriented 03/09/2017 None Full Exam - General 1994 Neurologic motor Overall: normal bulk, tone 03/09/2017 None Full Exam - General 1994 Psychiatric orientation/consciousness Overall: oriented to person, place and time 03/09/2017 None Full Exam - General 1994 Psychiatric mood and affect Overall: normal mood and affect 03/09/2017 None Full Exam - General 1994 Psychiatric appearance Overall: well-groomed, good eye contact 03/09/2017 None Full Exam - General 1994 Psychiatric speech Overall: normal quality, no aphasia 03/09/2017 None Full Exam - General 1994 Abdomen abdominal exam Epigastric: non-tender to palpation 03/09/2017 small peg-tube opening with granulation tissue present, no erythema, no induration Full Exam - General 1994 Constitutional general appearance Development: well developed 12/09/2016 None Full Exam - General 1994 Constitutional general appearance Development: appears stated age 0712/09/2016 None Full Exam - General 1994 Constitutional general appearance Hygiene/Attention to Grooming: good hygiene 12/09/2016 None Full Exam - General 1994 Eyes conjunctiva /eyelids Overall: conjunctiva clear 12/09/2016 None Full Exam - General 1994 Eyes conjunctiva /eyelids Overall: cornea clear 12/09/2016 None Full Exam - General 1994 Eyes conjunctiva /eyelids Overall: eyelids normal 12/09/2016 None Full Exam - General 1994 Eyes pupils and irises Overall: pupils equal, round, reactive to light and accomodation 12/09/2016 None Full Exam - General 1994 Ears/Nose/Throat otoscopic exam Overall: external auditory canals clear 12/09/2016 None Full Exam - General 1994 Ears/Nose/Throat otoscopic exam Overall: tympanic membranes clear 12/09/2016 None Full Exam - General 1994 Ears/Nose/Throat lips/teeth/gingiva Overall: benign lips 12/09/2016 None Full Exam - General 1994 Ears/Nose/Throat lips/teeth/gingiva Overall: normal dentition 12/09/2016 None Full Exam - General 1994 Ears/Nose/Throat oral cavity/pharynx/larynx Overall: oral mucosa clear 12/09/2016 None Full Exam - General 1994 Ears/Nose/Throat oral cavity/pharynx/larynx Overall: oropharyngeal mucosa clear 12/09/2016 None Full Exam - General 1994 Ears/Nose/Throat oral cavity/pharynx/larynx Overall: hypopharynx benign 12/09/2016 None Full Exam - General 1994 Ears/Nose/Throat oral cavity/pharynx/larynx Overall: no masses 12/09/2016 None Full Exam - General 1994 Respiratory auscultation Overall: breath sounds clear bilaterally 12/09/2016 None Full Exam - General 1994 Respiratory respiratory effort/rhythm Overall: no retractions 12/09/2016 None Full Exam - General 1994 Respiratory respiratory effort/rhythm Overall: normal rate 12/09/2016 None Full Exam - General 1994 Cardiovascular extremities Overall: no clubbing 12/09/2016 None Full Exam - General 1994 Cardiovascular auscultation of heart Overall: regular rate 12/09/2016 None Full Exam - General 1994 Cardiovascular auscultation of heart Overall: normal heart sounds 12/09/2016 None Full Exam - General 1994 Abdomen abdominal exam Overall: no tenderness 12/09/2016 None Full Exam - General 1994 Abdomen abdominal exam Overall: normal bowel sounds 12/09/2016 None Full Exam - General 1994 Lymphatic neck nodes Overall: anterior cervical chain benign 12/09/2016 None Full Exam - General 1994 Lymphatic neck nodes Overall: posterior cervical chain benign 12/09/2016 None Full Exam - General 1994 Musculoskeletal gait and station Overall: normal gait 12/09/2016 None Full Exam - General 1994 Musculoskeletal gait and station Overall: normal station 12/09/2016 None Full Exam - General 1994 Integument inspection of skin Overall: few scattered moles, no gross abnormalities 12/09/2016 None Full Exam - General 1994 Neurologic deep tendon reflexes Overall: deep tendon reflexes intact 12/09/2016 None Full Exam - General 1994 Neurologic mental status Level of alertness: alert 12/09/2016 None Full Exam - General 1994 Neurologic mental status Orientation: What is the year/season/date/day/month (5): 12/09/2016 None Full Exam - General 1994 Neurologic mental status Orientation: Where are we - state/country/town/hospital/floor (5): 12/09/2016 None Full Exam - General 1994 Neurologic mental status Attention/calculation: _ Serial 7's or "world" spelled backward (5): 12/09/2016 None Full Exam - General 1994 Neurologic mental status Recall: Recall of objects mentioned above after 5 min. (3): 0 12/09/2016 None Full Exam - General 1994 Neurologic cranial nerves Overall: crainial nerves 2 - 12 grossly intact 12/09/2016 None Full Exam - General 1994 Psychiatric orientation/consciousness Overall: oriented to person, place and time 12/09/2016 None Full Exam - General 1994 Psychiatric mood and affect Overall: normal mood and affect 12/09/2016 None Full Exam - General 1994 Constitutional general appearance Development: well developed 09/08/2016 None Full Exam - General 1994 Constitutional general appearance Development: appears stated age 0409/08/2016 None Full Exam - General 1994 Eyes conjunctiva /eyelids Overall: cornea clear 09/08/2016 None Full Exam - General 1994 Eyes conjunctiva /eyelids Overall: conjunctiva clear 09/08/2016 None Full Exam - General 1994 Eyes conjunctiva /eyelids Overall: eyelids normal 09/08/2016 None Full Exam - General 1994 Eyes pupils and irises Overall: pupils equal, round, reactive to light and accomodation 09/08/2016 None Full Exam - General 1994 Ears/Nose/Throat otoscopic exam Overall: external auditory canals clear 09/08/2016 None Full Exam - General 1994 Ears/Nose/Throat otoscopic exam Overall: tympanic membranes clear 09/08/2016 None Full Exam - General 1994 Ears/Nose/Throat oral cavity/pharynx/larynx Overall: oral mucosa clear 09/08/2016 None Full Exam - General 1994 Ears/Nose/Throat lips/teeth/gingiva Overall: benign lips 09/08/2016 None Full Exam - General 1994 Ears/Nose/Throat lips/teeth/gingiva Teeth: missing teeth 09/08/2016 None Full Exam - General 1994 Ears/Nose/Throat lips/teeth/gingiva Lips: dry 09/08/2016 None Full Exam - General 1994 Neck thyroid Overall: normal size None Full Exam - General 1994 Neck thyroid Overall: normal consistency 09/08/2016 None Full Exam - General 1994 Neck inspection of neck Overall: normal size 09/08/2016 None Full Exam - General 1994 Neck inspection of neck Overall: normal appearance 09/08/2016 None Full Exam - General 1994 Neck inspection of neck Overall: no masses 09/08/2016 None Full Exam - General 1994 Respiratory auscultation Overall: breath sounds clear bilaterally 09/08/2016 None Full Exam - General 1994 Respiratory respiratory effort/rhythm Overall: no retractions 09/08/2016 None Full Exam - General 1994 Respiratory respiratory effort/rhythm Overall: normal rate 09/08/2016 None Full Exam - General 1994 Cardiovascular auscultation of heart Overall: regular rate 09/08/2016 None Full Exam - General 1994 Cardiovascular auscultation of heart Overall: normal heart sounds 09/08/2016 None Full Exam - General 1994 Abdomen abdominal exam Overall: no tenderness 09/08/2016 None Full Exam - General 1994 Abdomen abdominal exam Overall: normal bowel sounds 09/08/2016 None Full Exam - General 1994 Lymphatic neck nodes Overall: anterior cervical chain benign 09/08/2016 None Full Exam - General 1994 Lymphatic neck nodes Overall: posterior cervical chain benign 09/08/2016 None Full Exam - General 1994 Musculoskeletal gait and station Overall: normal gait 09/08/2016 None Full Exam - General 1994 Musculoskeletal gait and station Overall: normal station 09/08/2016 None Full Exam - General 1994 Musculoskeletal head and neck Overall: head atraumatic 09/08/2016 None Full Exam - General 1994 Musculoskeletal head and neck Overall: cervical spine benign 09/08/2016 None Full Exam - General 1994 Integument inspection of skin Overall: few scattered moles, no gross abnormalities 09/08/2016 None Full Exam - General 1994 Neurologic mental status Overall: alert 09/08/2016 None Full Exam - General 1994 Neurologic mental status Overall: oriented 09/08/2016 None Full Exam - General 1994 Neurologic motor Overall: normal bulk, tone 09/08/2016 None Full Exam - General 1994 Psychiatric orientation/consciousness Overall: oriented to person, place and time 09/08/2016 None Full Exam - General 1994 Psychiatric mood and affect Overall: normal mood and affect 09/08/2016 None Full Exam - General 1994 Psychiatric appearance Overall: well-groomed, good eye contact 09/08/2016 None Full Exam - General 1994 Psychiatric speech Overall: normal quality, no aphasia 09/08/2016 None Full Exam - General 1994 Constitutional general appearance Development: well developed 08/11/2016 None Full Exam - General 1994 Constitutional general appearance Development: appears stated age 0308/11/2016 None Full Exam - General 1994 Constitutional general appearance Hygiene/Attention to Grooming: good hygiene 08/11/2016 None Full Exam - General 1994 Eyes conjunctiva /eyelids Overall: conjunctiva clear 08/11/2016 None Full Exam - General 1994 Eyes conjunctiva /eyelids Overall: cornea clear 08/11/2016 None Full Exam - General 1994 Eyes conjunctiva /eyelids Overall: eyelids normal 08/11/2016 None Full Exam - General 1994 Eyes pupils and irises Overall: pupils equal, round, reactive to light and accomodation 08/11/2016 None Full Exam - General 1994 Ears/Nose/Throat otoscopic exam Overall: external auditory canals clear 08/11/2016 None Full Exam - General 1994 Ears/Nose/Throat otoscopic exam Overall: tympanic membranes clear 08/11/2016 None Full Exam - General 1994 Ears/Nose/Throat lips/teeth/gingiva Overall: benign lips 08/11/2016 None Full Exam - General 1994 Ears/Nose/Throat lips/teeth/gingiva Overall: normal dentition 08/11/2016 None Full Exam - General 1994 Ears/Nose/Throat oral cavity/pharynx/larynx Overall: oral mucosa clear 08/11/2016 None Full Exam - General 1994 Ears/Nose/Throat oral cavity/pharynx/larynx Overall: oropharyngeal mucosa clear 08/11/2016 None Full Exam - General 1994 Ears/Nose/Throat oral cavity/pharynx/larynx Overall: hypopharynx benign 08/11/2016 None Full Exam - General 1994 Ears/Nose/Throat oral cavity/pharynx/larynx Overall: no masses 08/11/2016 None Full Exam - General 1994 Respiratory auscultation Overall: breath sounds clear bilaterally 08/11/2016 None Full Exam - General 1994 Respiratory respiratory effort/rhythm Overall: no retractions 08/11/2016 None Full Exam - General 1994 Respiratory respiratory effort/rhythm Overall: normal rate 08/11/2016 None Full Exam - General 1994 Cardiovascular extremities Overall: no clubbing 08/11/2016 None Full Exam - General 1994 Cardiovascular auscultation of heart Overall: regular rate 08/11/2016 None Full Exam - General 1994 Cardiovascular auscultation of heart Overall: normal heart sounds 08/11/2016 None Full Exam - General 1994 Abdomen abdominal exam Overall: no tenderness 08/11/2016 None Full Exam - General 1994 Abdomen abdominal exam Overall: normal bowel sounds 08/11/2016 None Full Exam - General 1994 Lymphatic neck nodes Overall: anterior cervical chain benign 08/11/2016 None Full Exam - General 1994 Lymphatic neck nodes Overall: posterior cervical chain benign 08/11/2016 None Full Exam - General 1994 Musculoskeletal gait and station Overall: normal gait 08/11/2016 None Full Exam - General 1994 Musculoskeletal gait and station Overall: normal station 08/11/2016 None Full Exam - General 1994 Integument inspection of skin Overall: few scattered moles, no gross abnormalities 08/11/2016 None Full Exam - General 1994 Neurologic deep tendon reflexes Overall: deep tendon reflexes intact 08/11/2016 None Full Exam - General 1994 Neurologic mental status Level of alertness: alert 08/11/2016 None Full Exam - General 1994 Neurologic mental status Orientation: What is the year/season/date/day/month (5): 5 08/11/2016 None Full Exam - General 1994 Neurologic mental status Orientation: Where are we - state/country/town/hospital/floor (5): 5 08/11/2016 None Full Exam - General 1994 Neurologic mental status Attention/calculation: _ Serial 7's or "world" spelled backward (5): 5 08/11/2016 None Full Exam - General 1994 Neurologic mental status Recall: Recall of objects mentioned above after 5 min. (3): 0 08/11/2016 None Full Exam - General 1994 Neurologic cranial nerves Overall: crainial nerves 2 - 12 grossly intact 08/11/2016 None Full Exam - General 1994 Psychiatric orientation/consciousness Overall: oriented to person, place and time 08/11/2016 None Full Exam - General 1994 Psychiatric mood and affect Overall: normal mood and affect 08/11/2016 None Full Exam - General 1994 Constitutional general appearance Hygiene/Attention to Grooming: good hygiene 07/03/2016 None Full Exam - General 1994 Eyes conjunctiva /eyelids Overall: conjunctiva clear 07/03/2016 None Full Exam - General 1994 Eyes conjunctiva /eyelids Overall: eyelids normal 07/03/2016 None Full Exam - General 1994 Eyes pupils and irises Overall: pupils equal, round, reactive to light and accomodation 07/03/2016 None Full Exam - General 1994 Ears/Nose/Throat otoscopic exam Overall: external auditory canals clear 07/03/2016 None Full Exam - General 1994 Ears/Nose/Throat otoscopic exam Overall: tympanic membranes clear 07/03/2016 None Full Exam - General 1994 Ears/Nose/Throat lips/teeth/gingiva Overall: benign lips 07/03/2016 None Full Exam - General 1994 Ears/Nose/Throat oral cavity/pharynx/larynx Overall: oral mucosa clear 07/03/2016 None Full Exam - General 1994 Ears/Nose/Throat oral cavity/pharynx/larynx Overall: oropharyngeal mucosa clear 07/03/2016 None Full Exam - General 1994 Ears/Nose/Throat oral cavity/pharynx/larynx Overall: no masses 07/03/2016 None Full Exam - General 1994 Respiratory auscultation Overall: breath sounds clear bilaterally 07/03/2016 None Full Exam - General 1994 Respiratory respiratory effort/rhythm Overall: no retractions 07/03/2016 None Full Exam - General 1994 Respiratory respiratory effort/rhythm Overall: normal rate 07/03/2016 None Full Exam - General 1994 Cardiovascular extremities Overall: no clubbing 07/03/2016 None Full Exam - General 1994 Cardiovascular auscultation of heart Overall: regular rate 07/03/2016 None Full Exam - General 1994 Cardiovascular auscultation of heart Overall: normal heart sounds 07/03/2016 None Full Exam - General 1994 Abdomen abdominal exam Overall: no tenderness 07/03/2016 None Full Exam - General 1994 Abdomen abdominal exam Overall: normal bowel sounds 07/03/2016 None Full Exam - General 1994 Musculoskeletal spine, ribs and pelvis Spine: tender @ cervical spine 07/03/2016 None Full Exam - General 1994 Musculoskeletal spine, ribs and pelvis Spine: tender @ thoracic spine 07/03/2016 None Full Exam - General 1994 Musculoskeletal spine, ribs and pelvis Spine: tender @ lumbar spine 07/03/2016 None Full Exam - General 1994 Musculoskeletal gait and station Overall: normal gait 07/03/2016 None Full Exam - General 1994 Musculoskeletal gait and station Overall: normal station 07/03/2016 None Full Exam - General 1994 Integument inspection of skin Overall: few scattered moles, no gross abnormalities 07/03/2016 None Full Exam - General 1994 Neurologic mental status Level of alertness: alert 07/03/2016 None Full Exam - General 1994 Neurologic cranial nerves Overall: crainial nerves 2 - 12 grossly intact 07/03/2016 None Full Exam - General 1994 Psychiatric orientation/consciousness Overall: oriented to person, place and time 07/03/2016 None Full Exam - General 1994 Psychiatric mood and affect Overall: normal mood and affect 07/03/2016 None Full Exam - General 1994 Constitutional general appearance Overall: well developed 07/03/2016 None Full Exam - General 1994 Constitutional general appearance Overall: in no acute distress 07/03/2016 None Full Exam - General 1994 Constitutional general appearance Overall: well nourished 07/03/2016 None Full Exam - General 1994 Psychiatric appearance Overall: well-groomed, good eye contact 07/03/2016 None Full Exam - General 1994 Constitutional general appearance Development: well developed 06/19/2016 None Full Exam - General 1994 Constitutional general appearance Development: appears stated age 0206/19/2016 None Full Exam - General 1994 Constitutional general appearance Hygiene/Attention to Grooming: good hygiene 06/19/2016 None Full Exam - General 1994 Eyes conjunctiva /eyelids Overall: conjunctiva clear 06/19/2016 None Full Exam - General 1994 Eyes conjunctiva /eyelids Overall: cornea clear 06/19/2016 None Full Exam - General 1994 Eyes conjunctiva /eyelids Overall: eyelids normal 06/19/2016 None Full Exam - General 1994 Eyes pupils and irises Overall: pupils equal, round, reactive to light and accomodation 06/19/2016 None Full Exam - General 1994 Ears/Nose/Throat otoscopic exam Overall: external auditory canals clear 06/19/2016 None Full Exam - General 1994 Ears/Nose/Throat otoscopic exam Overall: tympanic membranes clear 06/19/2016 None Full Exam - General 1994 Ears/Nose/Throat lips/teeth/gingiva Overall: benign lips 06/19/2016 None Full Exam - General 1994 Ears/Nose/Throat lips/teeth/gingiva Overall: normal dentition 06/19/2016 None Full Exam - General 1994 Ears/Nose/Throat oral cavity/pharynx/larynx Overall: oral mucosa clear 06/19/2016 None Full Exam - General 1994 Ears/Nose/Throat oral cavity/pharynx/larynx Overall: oropharyngeal mucosa clear 06/19/2016 None Full Exam - General 1994 Ears/Nose/Throat oral cavity/pharynx/larynx Overall: hypopharynx benign 06/19/2016 None Full Exam - General 1994 Ears/Nose/Throat oral cavity/pharynx/larynx Overall: no masses 06/19/2016 None Full Exam - General 1994 Respiratory auscultation Overall: breath sounds clear bilaterally 06/19/2016 None Full Exam - General 1994 Respiratory respiratory effort/rhythm Overall: no retractions 06/19/2016 None Full Exam - General 1994 Respiratory respiratory effort/rhythm Overall: normal rate 06/19/2016 None Full Exam - General 1994 Cardiovascular extremities Overall: no clubbing 06/19/2016 None Full Exam - General 1994 Cardiovascular auscultation of heart Overall: regular rate 06/19/2016 None Full Exam - General 1994 Cardiovascular auscultation of heart Overall: normal heart sounds 06/19/2016 None Full Exam - General 1994 Abdomen abdominal exam Overall: no tenderness 06/19/2016 None Full Exam - General 1994 Abdomen abdominal exam Overall: normal bowel sounds 06/19/2016 None Full Exam - General 1994 Lymphatic neck nodes Overall: anterior cervical chain benign 06/19/2016 None Full Exam - General 1994 Lymphatic neck nodes Overall: posterior cervical chain benign 06/19/2016 None Full Exam - General 1994 Musculoskeletal spine, ribs and pelvis Spine: tender @ cervical spine 06/19/2016 None Full Exam - General 1994 Musculoskeletal spine, ribs and pelvis Spine: tender @ thoracic spine 06/19/2016 None Full Exam - General 1994 Musculoskeletal spine, ribs and pelvis Spine: tender @ lumbar spine 06/19/2016 None Full Exam - General 1994 Musculoskeletal gait and station Overall: normal gait 06/19/2016 None Full Exam - General 1994 Musculoskeletal gait and station Overall: normal station 06/19/2016 None Full Exam - General 1994 Integument inspection of skin Overall: few scattered moles, no gross abnormalities 06/19/2016 None Full Exam - General 1994 Neurologic deep tendon reflexes Overall: deep tendon reflexes intact 06/19/2016 None Full Exam - General 1994 Neurologic mental status Level of alertness: alert 06/19/2016 None Full Exam - General 1994 Neurologic cranial nerves Overall: crainial nerves 2 - 12 grossly intact 06/19/2016 None Full Exam - General 1994 Psychiatric orientation/consciousness Overall: oriented to person, place and time 06/19/2016 None Full Exam - General 1994 Psychiatric mood and affect Overall: normal mood and affect 06/19/2016 None Full Exam - General 1994 Constitutional general appearance Development: well developed 02/04/2016 None Full Exam - General 1994 Constitutional general appearance Development: appears stated age 0902/04/2016 None Full Exam - General 1994 Constitutional general appearance Hygiene/Attention to Grooming: good hygiene 02/04/2016 None Full Exam - General 1994 Eyes conjunctiva /eyelids Overall: conjunctiva clear 02/04/2016 None Full Exam - General 1994 Eyes conjunctiva /eyelids Overall: cornea clear 02/04/2016 None Full Exam - General 1994 Eyes conjunctiva /eyelids Overall: eyelids normal 02/04/2016 None Full Exam - General 1994 Eyes pupils and irises Overall: pupils equal, round, reactive to light and accomodation 02/04/2016 None Full Exam - General 1994 Ears/Nose/Throat otoscopic exam Overall: external auditory canals clear 02/04/2016 None Full Exam - General 1994 Ears/Nose/Throat otoscopic exam Overall: tympanic membranes clear 02/04/2016 None Full Exam - General 1994 Ears/Nose/Throat lips/teeth/gingiva Overall: benign lips 02/04/2016 None Full Exam - General 1994 Ears/Nose/Throat lips/teeth/gingiva Overall: normal dentition 02/04/2016 None Full Exam - General 1994 Ears/Nose/Throat oral cavity/pharynx/larynx Overall: oral mucosa clear 02/04/2016 None Full Exam - General 1994 Ears/Nose/Throat oral cavity/pharynx/larynx Overall: oropharyngeal mucosa clear 02/04/2016 None Full Exam - General 1994 Ears/Nose/Throat oral cavity/pharynx/larynx Overall: hypopharynx benign 02/04/2016 None Full Exam - General 1994 Ears/Nose/Throat oral cavity/pharynx/larynx Overall: no masses 02/04/2016 None Full Exam - General 1994 Respiratory auscultation Overall: breath sounds clear bilaterally 02/04/2016 None Full Exam - General 1994 Respiratory respiratory effort/rhythm Overall: no retractions 02/04/2016 None Full Exam - General 1994 Respiratory respiratory effort/rhythm Overall: normal rate 02/04/2016 None Full Exam - General 1994 Cardiovascular extremities Overall: no clubbing 02/04/2016 None Full Exam - General 1994 Cardiovascular auscultation of heart Overall: regular rate 02/04/2016 None Full Exam - General 1994 Cardiovascular auscultation of heart Overall: normal heart sounds 02/04/2016 None Full Exam - General 1994 Abdomen abdominal exam Overall: no tenderness 02/04/2016 None Full Exam - General 1994 Abdomen abdominal exam Overall: normal bowel sounds 02/04/2016 None Full Exam - General 1994 Lymphatic neck nodes Overall: anterior cervical chain benign 02/04/2016 None Full Exam - General 1994 Lymphatic neck nodes Overall: posterior cervical chain benign 02/04/2016 None Full Exam - General 1994 Musculoskeletal spine, ribs and pelvis Spine: tender @ cervical spine 02/04/2016 None Full Exam - General 1994 Musculoskeletal spine, ribs and pelvis Spine: tender @ thoracic spine 02/04/2016 None Full Exam - General 1994 Musculoskeletal spine, ribs and pelvis Spine: tender @ lumbar spine 02/04/2016 None Full Exam - General 1994 Musculoskeletal gait and station Overall: normal gait 02/04/2016 None Full Exam - General 1994 Musculoskeletal gait and station Overall: normal station 02/04/2016 None Full Exam - General 1994 Integument inspection of skin Overall: few scattered moles, no gross abnormalities 02/04/2016 None Full Exam - General 1994 Neurologic deep tendon reflexes Overall: deep tendon reflexes intact 02/04/2016 None Full Exam - General 1994 Neurologic mental status Level of alertness: alert 02/04/2016 None Full Exam - General 1994 Neurologic mental status Orientation: What is the year/season/date/day/month (5): 5 02/04/2016 None Full Exam - General 1994 Neurologic mental status Orientation: Where are we - state/country/town/hospital/floor (5): 5 02/04/2016 None Full Exam - General 1994 Neurologic mental status Attention/calculation: _ Serial 7's or "world" spelled backward (5): 5 02/04/2016 None Full Exam - General 1994 Neurologic mental status Recall: Recall of objects mentioned above after 5 min. (3): 0 02/04/2016 None Full Exam - General 1994 Neurologic cranial nerves Overall: crainial nerves 2 - 12 grossly intact 02/04/2016 None Full Exam - General 1994 Psychiatric orientation/consciousness Overall: oriented to person, place and time 02/04/2016 None Full Exam - General 1994 Psychiatric mood and affect Overall: normal mood and affect 02/04/2016 None Full Exam - General 1994 Constitutional general appearance Development: well developed 01/07/2016 None Full Exam - General 1994 Constitutional general appearance Development: appears stated age 0801/07/2016 None Full Exam - General 1994 Constitutional general appearance Hygiene/Attention to Grooming: good hygiene 01/07/2016 None Full Exam - General 1994 Eyes conjunctiva /eyelids Overall: conjunctiva clear 01/07/2016 None Full Exam - General 1994 Eyes conjunctiva /eyelids Overall: cornea clear 01/07/2016 None Full Exam - General 1994 Eyes conjunctiva /eyelids Overall: eyelids normal 01/07/2016 None Full Exam - General 1994 Eyes pupils and irises Overall: pupils equal, round, reactive to light and accomodation 01/07/2016 None Full Exam - General 1994 Ears/Nose/Throat otoscopic exam Overall: external auditory canals clear 01/07/2016 None Full Exam - General 1994 Ears/Nose/Throat otoscopic exam Overall: tympanic membranes clear 01/07/2016 None Full Exam - General 1994 Ears/Nose/Throat lips/teeth/gingiva Overall: benign lips 01/07/2016 None Full Exam - General 1994 Ears/Nose/Throat lips/teeth/gingiva Overall: normal dentition 01/07/2016 None Full Exam - General 1994 Ears/Nose/Throat oral cavity/pharynx/larynx Overall: oral mucosa clear 01/07/2016 None Full Exam - General 1994 Ears/Nose/Throat oral cavity/pharynx/larynx Overall: oropharyngeal mucosa clear 01/07/2016 None Full Exam - General 1994 Ears/Nose/Throat oral cavity/pharynx/larynx Overall: hypopharynx benign 01/07/2016 None Full Exam - General 1994 Ears/Nose/Throat oral cavity/pharynx/larynx Overall: no masses 01/07/2016 None Full Exam - General 1994 Respiratory auscultation Overall: breath sounds clear bilaterally 01/07/2016 None Full Exam - General 1994 Respiratory respiratory effort/rhythm Overall: no retractions 01/07/2016 None Full Exam - General 1994 Respiratory respiratory effort/rhythm Overall: normal rate 01/07/2016 None Full Exam - General 1994 Cardiovascular extremities Overall: no clubbing 01/07/2016 None Full Exam - General 1994 Cardiovascular auscultation of heart Overall: regular rate 01/07/2016 None Full Exam - General 1994 Cardiovascular auscultation of heart Overall: normal heart sounds 01/07/2016 None Full Exam - General 1994 Abdomen abdominal exam Overall: no tenderness 01/07/2016 None Full Exam - General 1994 Abdomen abdominal exam Overall: normal bowel sounds 01/07/2016 None Full Exam - General 1994 Lymphatic neck nodes Overall: anterior cervical chain benign 01/07/2016 None Full Exam - General 1994 Lymphatic neck nodes Overall: posterior cervical chain benign 01/07/2016 None Full Exam - General 1994 Musculoskeletal spine, ribs and pelvis Spine: tender @ cervical spine 01/07/2016 None Full Exam - General 1994 Musculoskeletal spine, ribs and pelvis Spine: tender @ thoracic spine 01/07/2016 None Full Exam - General 1994 Musculoskeletal spine, ribs and pelvis Spine: tender @ lumbar spine 01/07/2016 None Full Exam - General 1994 Musculoskeletal gait and station Overall: normal gait 01/07/2016 None Full Exam - General 1994 Musculoskeletal gait and station Overall: normal station 01/07/2016 None Full Exam - General 1994 Integument inspection of skin Overall: few scattered moles, no gross abnormalities 01/07/2016 None Full Exam - General 1994 Neurologic deep tendon reflexes Overall: deep tendon reflexes intact 01/07/2016 None Full Exam - General 1994 Neurologic cranial nerves Overall: crainial nerves 2 - 12 grossly intact 01/07/2016 None Full Exam - General 1994 Psychiatric orientation/consciousness Overall: oriented to person, place and time 01/07/2016 None Full Exam - General 1994 Psychiatric mood and affect Overall: normal mood and affect 01/07/2016 None Full Exam - General 1994 Neurologic mental status Level of alertness: alert 01/07/2016 None Full Exam - General 1994 Neurologic mental status Orientation: What is the year/season/date/day/month (5): 01/07/2016 None Full Exam - General 1994 Neurologic mental status Orientation: Where are we - state/country/town/hospital/floor (5): 01/07/2016 None Full Exam - General 1994 Neurologic mental status Attention/calculation: _ Serial 7's or "world" spelled backward (5): 01/07/2016 None Full Exam - General 1994 Neurologic mental status Recall: Recall of objects mentioned above after 5 min. (3): 0 01/07/2016 None Full Exam - General 1994 Constitutional general appearance Development: well developed 12/17/2015 None Full Exam - General 1994 Constitutional general appearance Development: appears stated age 0812/17/2015 None Full Exam - General 1994 Constitutional general appearance Hygiene/Attention to Grooming: good hygiene 12/17/2015 None Full Exam - General 1994 Eyes conjunctiva /eyelids Overall: conjunctiva clear 12/17/2015 None Full Exam - General 1994 Eyes conjunctiva /eyelids Overall: cornea clear 12/17/2015 None Full Exam - General 1994 Eyes conjunctiva /eyelids Overall: eyelids normal 12/17/2015 None Full Exam - General 1994 Eyes pupils and irises Overall: pupils equal, round, reactive to light and accomodation 12/17/2015 None Full Exam - General 1994 Ears/Nose/Throat otoscopic exam Overall: external auditory canals clear 12/17/2015 None Full Exam - General 1994 Ears/Nose/Throat otoscopic exam Overall: tympanic membranes clear 12/17/2015 None Full Exam - General 1994 Ears/Nose/Throat lips/teeth/gingiva Overall: benign lips 12/17/2015 None Full Exam - General 1994 Ears/Nose/Throat lips/teeth/gingiva Overall: normal dentition 12/17/2015 None Full Exam - General 1994 Ears/Nose/Throat oral cavity/pharynx/larynx Overall: oral mucosa clear 12/17/2015 None Full Exam - General 1994 Ears/Nose/Throat oral cavity/pharynx/larynx Overall: oropharyngeal mucosa clear 12/17/2015 None Full Exam - General 1994 Ears/Nose/Throat oral cavity/pharynx/larynx Overall: hypopharynx benign 12/17/2015 None Full Exam - General 1994 Ears/Nose/Throat oral cavity/pharynx/larynx Overall: no masses 12/17/2015 None Full Exam - General 1994 Respiratory auscultation Overall: breath sounds clear bilaterally 12/17/2015 None Full Exam - General 1994 Respiratory respiratory effort/rhythm Overall: no retractions 12/17/2015 None Full Exam - General 1994 Respiratory respiratory effort/rhythm Overall: normal rate 12/17/2015 None Full Exam - General 1994 Cardiovascular extremities Overall: no clubbing 12/17/2015 None Full Exam - General 1994 Cardiovascular auscultation of heart Overall: regular rate 12/17/2015 None Full Exam - General 1994 Cardiovascular auscultation of heart Overall: normal heart sounds 12/17/2015 None Full Exam - General 1994 Abdomen abdominal exam Overall: no tenderness 12/17/2015 None Full Exam - General 1994 Abdomen abdominal exam Overall: normal bowel sounds 12/17/2015 None Full Exam - General 1994 Lymphatic neck nodes Overall: anterior cervical chain benign 12/17/2015 None Full Exam - General 1994 Lymphatic neck nodes Overall: posterior cervical chain benign 12/17/2015 None Full Exam - General 1994 Musculoskeletal spine, ribs and pelvis Spine: tender @ cervical spine 12/17/2015 None Full Exam - General 1994 Musculoskeletal spine, ribs and pelvis Spine: tender @ lumbar spine 12/17/2015 None Full Exam - General 1994 Musculoskeletal gait and station Overall: normal gait 12/17/2015 None Full Exam - General 1994 Musculoskeletal gait and station Overall: normal station 12/17/2015 None Full Exam - General 1994 Integument inspection of skin Overall: few scattered moles, no gross abnormalities 12/17/2015 None Full Exam - General 1994 Neurologic deep tendon reflexes Overall: deep tendon reflexes intact 12/17/2015 None Full Exam - General 1994 Neurologic cranial nerves Overall: crainial nerves 2 - 12 grossly intact 12/17/2015 None Full Exam - General 1994 Psychiatric orientation/consciousness Overall: oriented to person, place and time 12/17/2015 None Full Exam - General 1994 Psychiatric mood and affect Overall: normal mood and affect 12/17/2015 None Full Exam - General 1994 Musculoskeletal spine, ribs and pelvis Spine: tender @ thoracic spine 12/17/2015 None Full Exam - General 1994 Constitutional general appearance Development: well developed 10/16/2015 None Full Exam - General 1994 Constitutional general appearance Development: appears stated age 0510/16/2015 None Full Exam - General 1994 Constitutional general appearance Hygiene/Attention to Grooming: good hygiene 10/16/2015 None Full Exam - General 1994 Eyes conjunctiva /eyelids Overall: conjunctiva clear 10/16/2015 None Full Exam - General 1994 Eyes conjunctiva /eyelids Overall: cornea clear 10/16/2015 None Full Exam - General 1994 Eyes conjunctiva /eyelids Overall: eyelids normal 10/16/2015 None Full Exam - General 1994 Eyes pupils and irises Overall: pupils equal, round, reactive to light and accomodation 10/16/2015 None Full Exam - General 1994 Ears/Nose/Throat otoscopic exam Overall: external auditory canals clear 10/16/2015 None Full Exam - General 1994 Ears/Nose/Throat otoscopic exam Overall: tympanic membranes clear 10/16/2015 None Full Exam - General 1994 Ears/Nose/Throat lips/teeth/gingiva Overall: benign lips 10/16/2015 None Full Exam - General 1994 Ears/Nose/Throat lips/teeth/gingiva Overall: normal dentition 10/16/2015 None Full Exam - General 1994 Ears/Nose/Throat oral cavity/pharynx/larynx Overall: oral mucosa clear 10/16/2015 None Full Exam - General 1994 Ears/Nose/Throat oral cavity/pharynx/larynx Overall: oropharyngeal mucosa clear 10/16/2015 None Full Exam - General 1994 Ears/Nose/Throat oral cavity/pharynx/larynx Overall: hypopharynx benign 10/16/2015 None Full Exam - General 1994 Ears/Nose/Throat oral cavity/pharynx/larynx Overall: no masses 10/16/2015 None Full Exam - General 1994 Respiratory auscultation Overall: breath sounds clear bilaterally 10/16/2015 None Full Exam - General 1994 Respiratory respiratory effort/rhythm Overall: no retractions 10/16/2015 None Full Exam - General 1994 Respiratory respiratory effort/rhythm Overall: normal rate 10/16/2015 None Full Exam - General 1994 Cardiovascular extremities Overall: no clubbing 10/16/2015 None Full Exam - General 1994 Cardiovascular auscultation of heart Overall: regular rate 10/16/2015 None Full Exam - General 1994 Cardiovascular auscultation of heart Overall: normal heart sounds 10/16/2015 None Full Exam - General 1994 Abdomen abdominal exam Overall: no tenderness 10/16/2015 None Full Exam - General 1994 Abdomen abdominal exam Overall: normal bowel sounds 10/16/2015 None Full Exam - General 1994 Lymphatic neck nodes Overall: anterior cervical chain benign 10/16/2015 None Full Exam - General 1994 Lymphatic neck nodes Overall: posterior cervical chain benign 10/16/2015 None Full Exam - General 1994 Musculoskeletal spine, ribs and pelvis Spine: tender @ cervical spine 10/16/2015 None Full Exam - General 1994 Musculoskeletal spine, ribs and pelvis Spine: tender @ lumbar spine 10/16/2015 None Full Exam - General 1994 Musculoskeletal gait and station Overall: normal gait 10/16/2015 None Full Exam - General 1994 Musculoskeletal gait and station Overall: normal station 10/16/2015 None Full Exam - General 1994 Integument inspection of skin Overall: few scattered moles, no gross abnormalities 10/16/2015 None Full Exam - General 1994 Neurologic deep tendon reflexes Overall: deep tendon reflexes intact 10/16/2015 None Full Exam - General 1994 Neurologic cranial nerves Overall: crainial nerves 2 - 12 grossly intact 10/16/2015 None Full Exam - General 1994 Psychiatric orientation/consciousness Overall: oriented to person, place and time 10/16/2015 None Full Exam - General 1994 Psychiatric mood and affect Overall: normal mood and affect 10/16/2015 None Full Exam - General 1994 Constitutional general appearance Development: well developed 08/16/2015 None Full Exam - General 1994 Constitutional general appearance Development: appears stated age 0308/16/2015 None Full Exam - General 1994 Constitutional general appearance Hygiene/Attention to Grooming: good hygiene 08/16/2015 None Full Exam - General 1994 Eyes conjunctiva /eyelids Overall: conjunctiva clear 08/16/2015 None Full Exam - General 1994 Eyes conjunctiva /eyelids Overall: cornea clear 08/16/2015 None Full Exam - General 1994 Eyes conjunctiva /eyelids Overall: eyelids normal 08/16/2015 None Full Exam - General 1994 Eyes pupils and irises Overall: pupils equal, round, reactive to light and accomodation 08/16/2015 None Full Exam - General 1994 Ears/Nose/Throat otoscopic exam Overall: external auditory canals clear 08/16/2015 None Full Exam - General 1994 Ears/Nose/Throat otoscopic exam Overall: tympanic membranes clear 08/16/2015 None Full Exam - General 1994 Ears/Nose/Throat lips/teeth/gingiva Overall: benign lips 08/16/2015 None Full Exam - General 1994 Ears/Nose/Throat lips/teeth/gingiva Overall: normal dentition 08/16/2015 None Full Exam - General 1994 Ears/Nose/Throat oral cavity/pharynx/larynx Overall: oral mucosa clear 08/16/2015 None Full Exam - General 1994 Ears/Nose/Throat oral cavity/pharynx/larynx Overall: oropharyngeal mucosa clear 08/16/2015 None Full Exam - General 1994 Ears/Nose/Throat oral cavity/pharynx/larynx Overall: hypopharynx benign 08/16/2015 None Full Exam - General 1994 Ears/Nose/Throat oral cavity/pharynx/larynx Overall: no masses 08/16/2015 None Full Exam - General 1994 Respiratory auscultation Overall: breath sounds clear bilaterally 08/16/2015 None Full Exam - General 1994 Respiratory respiratory effort/rhythm Overall: no retractions 08/16/2015 None Full Exam - General 1994 Respiratory respiratory effort/rhythm Overall: normal rate 08/16/2015 None Full Exam - General 1994 Cardiovascular extremities Overall: no clubbing 08/16/2015 None Full Exam - General 1994 Cardiovascular auscultation of heart Overall: regular rate 08/16/2015 None Full Exam - General 1994 Cardiovascular auscultation of heart Overall: normal heart sounds 08/16/2015 None Full Exam - General 1994 Abdomen abdominal exam Overall: no tenderness 08/16/2015 None Full Exam - General 1994 Abdomen abdominal exam Overall: normal bowel sounds 08/16/2015 None Full Exam - General 1994 Lymphatic neck nodes Overall: anterior cervical chain benign 08/16/2015 None Full Exam - General 1994 Lymphatic neck nodes Overall: posterior cervical chain benign 08/16/2015 None Full Exam - General 1994 Integument inspection of skin Overall: few scattered moles, no gross abnormalities 08/16/2015 None Full Exam - General 1994 Neurologic deep tendon reflexes Overall: deep tendon reflexes intact 08/16/2015 None Full Exam - General 1994 Neurologic cranial nerves Overall: crainial nerves 2 - 12 grossly intact 08/16/2015 None Full Exam - General 1994 Psychiatric orientation/consciousness Overall: oriented to person, place and time 08/16/2015 None Full Exam - General 1994 Psychiatric mood and affect Overall: normal mood and affect 08/16/2015 None Full Exam - General 1994 Musculoskeletal gait and station Overall: normal gait 08/16/2015 None Full Exam - General 1994 Musculoskeletal gait and station Overall: normal station 08/16/2015 None Full Exam - General 1994 Musculoskeletal spine, ribs and pelvis Spine: tender @ lumbar spine 08/16/2015 None Full Exam - General 1994 Musculoskeletal spine, ribs and pelvis Spine: tender @ cervical spine 08/16/2015 None Full Exam - General 1994 Constitutional general appearance Development: well developed 07/06/2015 None Full Exam - General 1994 Constitutional general appearance Development: appears stated age 0207/06/2015 None Full Exam - General 1994 Constitutional general appearance Hygiene/Attention to Grooming: good hygiene 07/06/2015 None Full Exam - General 1994 Eyes conjunctiva /eyelids Overall: conjunctiva clear 07/06/2015 None Full Exam - General 1994 Eyes conjunctiva /eyelids Overall: cornea clear 07/06/2015 None Full Exam - General 1994 Eyes conjunctiva /eyelids Overall: eyelids normal 07/06/2015 None Full Exam - General 1994 Eyes pupils and irises Overall: pupils equal, round, reactive to light and accomodation 07/06/2015 None Full Exam - General 1994 Ears/Nose/Throat otoscopic exam Overall: external auditory canals clear 07/06/2015 None Full Exam - General 1994 Ears/Nose/Throat otoscopic exam Overall: tympanic membranes clear 07/06/2015 None Full Exam - General 1994 Ears/Nose/Throat lips/teeth/gingiva Overall: benign lips 07/06/2015 None Full Exam - General 1994 Ears/Nose/Throat lips/teeth/gingiva Overall: normal dentition 07/06/2015 None Full Exam - General 1994 Ears/Nose/Throat oral cavity/pharynx/larynx Overall: oral mucosa clear 07/06/2015 None Full Exam - General 1994 Ears/Nose/Throat oral cavity/pharynx/larynx Overall: oropharyngeal mucosa clear 07/06/2015 None Full Exam - General 1994 Ears/Nose/Throat oral cavity/pharynx/larynx Overall: hypopharynx benign 07/06/2015 None Full Exam - General 1994 Ears/Nose/Throat oral cavity/pharynx/larynx Overall: no masses 07/06/2015 None Full Exam - General 1994 Respiratory auscultation Overall: breath sounds clear bilaterally 07/06/2015 None Full Exam - General 1994 Respiratory respiratory effort/rhythm Overall: no retractions 07/06/2015 None Full Exam - General 1994 Respiratory respiratory effort/rhythm Overall: normal rate 07/06/2015 None Full Exam - General 1994 Cardiovascular extremities Overall: no clubbing 07/06/2015 None Full Exam - General 1994 Cardiovascular auscultation of heart Overall: regular rate 07/06/2015 None Full Exam - General 1994 Cardiovascular auscultation of heart Overall: normal heart sounds 07/06/2015 None Full Exam - General 1994 Abdomen abdominal exam Overall: no tenderness 07/06/2015 None Full Exam - General 1994 Abdomen abdominal exam Overall: normal bowel sounds 07/06/2015 None Full Exam - General 1994 Lymphatic neck nodes Overall: anterior cervical chain benign 07/06/2015 None Full Exam - General 1994 Lymphatic neck nodes Overall: posterior cervical chain benign 07/06/2015 None Full Exam - General 1994 Integument inspection of skin Overall: few scattered moles, no gross abnormalities 07/06/2015 None Full Exam - General 1994 Neurologic deep tendon reflexes Overall: deep tendon reflexes intact 07/06/2015 None Full Exam - General 1994 Neurologic cranial nerves Overall: crainial nerves 2 - 12 grossly intact 07/06/2015 None Full Exam - General 1994 Psychiatric orientation/consciousness Overall: oriented to person, place and time 07/06/2015 None Full Exam - General 1994 Psychiatric mood and affect Overall: normal mood and affect 07/06/2015 None Full Exam - General 1994 Constitutional general appearance Development: well developed 06/07/2015 None Full Exam - General 1994 Constitutional general appearance Development: appears stated age 0106/07/2015 None Full Exam - General 1994 Constitutional general appearance Hygiene/Attention to Grooming: good hygiene 06/07/2015 None Full Exam - General 1994 Eyes conjunctiva /eyelids Overall: conjunctiva clear 06/07/2015 None Full Exam - General 1994 Eyes conjunctiva /eyelids Overall: cornea clear 06/07/2015 None Full Exam - General 1994 Eyes conjunctiva /eyelids Overall: eyelids normal 06/07/2015 None Full Exam - General 1994 Eyes pupils and irises Overall: pupils equal, round, reactive to light and accomodation 06/07/2015 None Full Exam - General 1994 Ears/Nose/Throat otoscopic exam Overall: external auditory canals clear 06/07/2015 None Full Exam - General 1994 Ears/Nose/Throat otoscopic exam Overall: tympanic membranes clear 06/07/2015 None Full Exam - General 1994 Ears/Nose/Throat lips/teeth/gingiva Overall: benign lips 06/07/2015 None Full Exam - General 1994 Ears/Nose/Throat lips/teeth/gingiva Overall: normal dentition 06/07/2015 None Full Exam - General 1994 Ears/Nose/Throat oral cavity/pharynx/larynx Overall: oral mucosa clear 06/07/2015 None Full Exam - General 1994 Ears/Nose/Throat oral cavity/pharynx/larynx Overall: oropharyngeal mucosa clear 06/07/2015 None Full Exam - General 1994 Ears/Nose/Throat oral cavity/pharynx/larynx Overall: hypopharynx benign 06/07/2015 None Full Exam - General 1994 Ears/Nose/Throat oral cavity/pharynx/larynx Overall: no masses 06/07/2015 None Full Exam - General 1994 Respiratory auscultation Overall: breath sounds clear bilaterally 06/07/2015 None Full Exam - General 1994 Respiratory respiratory effort/rhythm Overall: no retractions 06/07/2015 None Full Exam - General 1994 Respiratory respiratory effort/rhythm Overall: normal rate 06/07/2015 None Full Exam - General 1994 Cardiovascular extremities Overall: no clubbing 06/07/2015 None Full Exam - General 1994 Cardiovascular auscultation of heart Overall: regular rate 06/07/2015 None Full Exam - General 1994 Cardiovascular auscultation of heart Overall: normal heart sounds 06/07/2015 None Full Exam - General 1994 Abdomen abdominal exam Overall: no tenderness 06/07/2015 None Full Exam - General 1994 Abdomen abdominal exam Overall: normal bowel sounds 06/07/2015 None Full Exam - General 1994 Integument inspection of skin Overall: few scattered moles, no gross abnormalities 06/07/2015 None Full Exam - General 1994 Neurologic deep tendon reflexes Overall: deep tendon reflexes intact 06/07/2015 None Full Exam - General 1994 Neurologic cranial nerves Overall: crainial nerves 2 - 12 grossly intact 06/07/2015 None Full Exam - General 1994 Psychiatric orientation/consciousness Overall: oriented to person, place and time 06/07/2015 None Full Exam - General 1994 Psychiatric mood and affect Overall: normal mood and affect 06/07/2015 None Full Exam - General 1994 Lymphatic neck nodes Overall: anterior cervical chain benign 06/07/2015 None Full Exam - General 1994 Lymphatic neck nodes Overall: posterior cervical chain benign 06/07/2015 None Full Exam - General 1994 Constitutional general appearance Development: well developed 05/01/2015 None Full Exam - General 1994 Constitutional general appearance Development: appears stated age 1205/01/2015 None Full Exam - General 1994 Constitutional general appearance Hygiene/Attention to Grooming: good hygiene 05/01/2015 None Full Exam - General 1994 Eyes conjunctiva /eyelids Overall: conjunctiva clear 05/01/2015 None Full Exam - General 1994 Eyes conjunctiva /eyelids Overall: cornea clear 05/01/2015 None Full Exam - General 1994 Eyes conjunctiva /eyelids Overall: eyelids normal 05/01/2015 None Full Exam - General 1994 Eyes pupils and irises Overall: pupils equal, round, reactive to light and accomodation 05/01/2015 None Full Exam - General 1994 Ears/Nose/Throat otoscopic exam Overall: external auditory canals clear 05/01/2015 None Full Exam - General 1994 Ears/Nose/Throat otoscopic exam Overall: tympanic membranes clear 05/01/2015 None Full Exam - General 1994 Ears/Nose/Throat lips/teeth/gingiva Overall: benign lips 05/01/2015 None Full Exam - General 1994 Ears/Nose/Throat lips/teeth/gingiva Overall: normal dentition 05/01/2015 None Full Exam - General 1994 Ears/Nose/Throat oral cavity/pharynx/larynx Overall: oral mucosa clear 05/01/2015 None Full Exam - General 1994 Ears/Nose/Throat oral cavity/pharynx/larynx Overall: oropharyngeal mucosa clear 05/01/2015 None Full Exam - General 1994 Ears/Nose/Throat oral cavity/pharynx/larynx Overall: hypopharynx benign 05/01/2015 None Full Exam - General 1994 Ears/Nose/Throat oral cavity/pharynx/larynx Overall: no masses 05/01/2015 None Full Exam - General 1994 Respiratory auscultation Overall: breath sounds clear bilaterally 05/01/2015 None Full Exam - General 1994 Respiratory respiratory effort/rhythm Overall: no retractions 05/01/2015 None Full Exam - General 1994 Respiratory respiratory effort/rhythm Overall: normal rate 05/01/2015 None Full Exam - General 1994 Cardiovascular extremities Overall: no clubbing 05/01/2015 None Full Exam - General 1994 Cardiovascular auscultation of heart Overall: regular rate 05/01/2015 None Full Exam - General 1994 Cardiovascular auscultation of heart Overall: normal heart sounds 05/01/2015 None Full Exam - General 1994 Abdomen abdominal exam Overall: no tenderness 05/01/2015 None Full Exam - General 1994 Abdomen abdominal exam Overall: normal bowel sounds 05/01/2015 None Full Exam - General 1994 Integument inspection of skin Overall: few scattered moles, no gross abnormalities 05/01/2015 None Full Exam - General 1994 Neurologic deep tendon reflexes Overall: deep tendon reflexes intact 05/01/2015 None Full Exam - General 1994 Neurologic cranial nerves Overall: crainial nerves 2 - 12 grossly intact 05/01/2015 None Full Exam - General 1994 Psychiatric orientation/consciousness Overall: oriented to person, place and time 05/01/2015 None Full Exam - General 1994 Psychiatric mood and affect Overall: normal mood and affect 05/01/2015 None Full Exam - Orthopedics Constitutional general appearance Overall: well nourished 03/26/2015 None Full Exam - Orthopedics Constitutional general appearance Overall: well developed 03/26/2015 None Full Exam - Orthopedics Constitutional general appearance Overall: in no acute distress 03/26/2015 None Full Exam - Orthopedics Constitutional general appearance Overall: normal body habitus 03/26/2015 None Full Exam - Orthopedics Constitutional general appearance Overall: no deformities 03/26/2015 None Full Exam - Orthopedics Constitutional general appearance Overall: well groomed 03/26/2015 None Full Exam - Orthopedics Constitutional general appearance Overall: no assistive devices 03/26/2015 None Full Exam - Orthopedics Constitutional general appearance Overall: atraumatic 03/26/2015 None Full Exam - Orthopedics Respiratory auscultation Overall: breath sounds clear bilaterally 03/26/2015 None Full Exam - Orthopedics Respiratory respiratory effort/rhythm Overall: no retractions 03/26/2015 None Full Exam - Orthopedics Respiratory respiratory effort/rhythm Overall: normal rate 03/26/2015 None Full Exam - Orthopedics Cardiovascular examination of vasculature Overall: no clubbing, cyanosis, edema 03/26/2015 None Full Exam - Orthopedics MS: right lower extremity insp & palp - RLE Overall: normal appearance of leg 03/26/2015 None Full Exam - Orthopedics MS: right lower extremity insp & palp - RLE [place]earfoot: tenderness of Plantar fascial ligament origin 03/26/2015 None Full Exam - Orthopedics Neurological sensation Overall: intact to light touch 03/26/2015 None Full Exam - Orthopedics Psychiatric orientation/consciousness Overall: oriented to person, place and time 03/26/2015 None Full Exam - Orthopedics MS: right lower extremity insp & palp - RLE [place]foot: tenderness of Plantar fascial ligament origin 03/13/2015 None Full Exam - Orthopedics MS: right lower extremity insp & palp - RLE Overall: normal appearance of leg 03/13/2015 None Full Exam - Orthopedics Respiratory auscultation Overall: breath sounds clear bilaterally 03/13/2015 None Full Exam - Orthopedics Respiratory respiratory effort/rhythm Overall: no retractions 03/13/2015 None Full Exam - Orthopedics Respiratory respiratory effort/rhythm Overall: normal rate 03/13/2015 None Full Exam - Orthopedics Cardiovascular examination of vasculature Overall: no clubbing, cyanosis, edema 03/13/2015 None Full Exam - Orthopedics Psychiatric orientation/consciousness Overall: oriented to person, place and time 03/13/2015 None Full Exam - Orthopedics Neurological sensation Overall: intact to light touch 03/13/2015 None Full Exam - Orthopedics Constitutional general appearance Overall: well nourished 03/13/2015 None Full Exam - Orthopedics Constitutional general appearance Overall: well developed 03/13/2015 None Full Exam - Orthopedics Constitutional general appearance Overall: in no acute distress 03/13/2015 None Full Exam - Orthopedics Constitutional general appearance Overall: normal body habitus 03/13/2015 None Full Exam - Orthopedics Constitutional general appearance Overall: no deformities 03/13/2015 None Full Exam - Orthopedics Constitutional general appearance Overall: well groomed 03/13/2015 None Full Exam - Orthopedics Constitutional general appearance Overall: no assistive devices 03/13/2015 None Full Exam - Orthopedics Constitutional general appearance Overall: atraumatic 03/13/2015 None Full Exam - General 1994 Constitutional general appearance Development: well developed 01/30/2015 None Full Exam - General 1994 Constitutional general appearance Development: appears stated age 0901/30/2015 None Full Exam - General 1994 Constitutional general appearance Hygiene/Attention to Grooming: good hygiene 01/30/2015 None Full Exam - General 1994 Eyes conjunctiva /eyelids Overall: conjunctiva clear 01/30/2015 None Full Exam - General 1994 Eyes conjunctiva /eyelids Overall: cornea clear 01/30/2015 None Full Exam - General 1994 Eyes conjunctiva /eyelids Overall: eyelids normal 01/30/2015 None Full Exam - General 1994 Eyes pupils and irises Overall: pupils equal, round, reactive to light and accomodation 01/30/2015 None Full Exam - General 1994 Ears/Nose/Throat otoscopic exam Overall: external auditory canals clear 01/30/2015 None Full Exam - General 1994 Ears/Nose/Throat otoscopic exam Overall: tympanic membranes clear 01/30/2015 None Full Exam - General 1994 Ears/Nose/Throat lips/teeth/gingiva Overall: benign lips 01/30/2015 None Full Exam - General 1994 Ears/Nose/Throat lips/teeth/gingiva Overall: normal dentition 01/30/2015 None Full Exam - General 1994 Ears/Nose/Throat oral cavity/pharynx/larynx Overall: oral mucosa clear 01/30/2015 None Full Exam - General 1994 Ears/Nose/Throat oral cavity/pharynx/larynx Overall: oropharyngeal mucosa clear 01/30/2015 None Full Exam - General 1994 Ears/Nose/Throat oral cavity/pharynx/larynx Overall: hypopharynx benign 01/30/2015 None Full Exam - General 1994 Ears/Nose/Throat oral cavity/pharynx/larynx Overall: no masses 01/30/2015 None Full Exam - General 1994 Respiratory auscultation Overall: breath sounds clear bilaterally 01/30/2015 None Full Exam - General 1994 Respiratory respiratory effort/rhythm Overall: no retractions 01/30/2015 None Full Exam - General 1994 Respiratory respiratory effort/rhythm Overall: normal rate 01/30/2015 None Full Exam - General 1994 Cardiovascular extremities Overall: no clubbing 01/30/2015 None Full Exam - General 1994 Cardiovascular auscultation of heart Overall: regular rate 01/30/2015 None Full Exam - General 1994 Cardiovascular auscultation of heart Overall: normal heart sounds 01/30/2015 None Full Exam - General 1994 Abdomen abdominal exam Overall: no tenderness 01/30/2015 None Full Exam - General 1994 Abdomen abdominal exam Overall: normal bowel sounds 01/30/2015 None Full Exam - General 1994 Integument inspection of skin Overall: few scattered moles, no gross abnormalities 01/30/2015 None Full Exam - General 1994 Neurologic deep tendon reflexes Overall: deep tendon reflexes intact 01/30/2015 None Full Exam - General 1994 Neurologic cranial nerves Overall: crainial nerves 2 - 12 grossly intact 01/30/2015 None Full Exam - General 1994 Psychiatric orientation/consciousness Overall: oriented to person, place and time 01/30/2015 None Full Exam - General 1994 Psychiatric mood and affect Overall: normal mood and affect 01/30/2015 None Full Exam - General 1994 Constitutional general appearance Development: appears stated age 0610/16/2014 None Full Exam - General 1994 Constitutional general appearance Development: well developed 10/16/2014 None Full Exam - General 1994 Constitutional general appearance Hygiene/Attention to Grooming: good hygiene 10/16/2014 None Full Exam - General 1994 Eyes conjunctiva /eyelids Overall: conjunctiva clear 10/16/2014 None Full Exam - General 1994 Eyes conjunctiva /eyelids Overall: cornea clear 10/16/2014 None Full Exam - General 1994 Eyes conjunctiva /eyelids Overall: eyelids normal 10/16/2014 None Full Exam - General 1994 Eyes pupils and irises Overall: pupils equal, round, reactive to light and accomodation 10/16/2014 None Full Exam - General 1994 Ears/Nose/Throat otoscopic exam Overall: external auditory canals clear 10/16/2014 None Full Exam - General 1994 Ears/Nose/Throat otoscopic exam Overall: tympanic membranes clear 10/16/2014 None Full Exam - General 1994 Ears/Nose/Throat lips/teeth/gingiva Overall: benign lips 10/16/2014 None Full Exam - General 1994 Ears/Nose/Throat lips/teeth/gingiva Overall: normal dentition 10/16/2014 None Full Exam - General 1994 Ears/Nose/Throat oral cavity/pharynx/larynx Overall: hypopharynx benign 10/16/2014 None Full Exam - General 1994 Ears/Nose/Throat oral cavity/pharynx/larynx Overall: no masses 10/16/2014 None Full Exam - General 1994 Ears/Nose/Throat oral cavity/pharynx/larynx Overall: oral mucosa clear 10/16/2014 None Full Exam - General 1994 Ears/Nose/Throat oral cavity/pharynx/larynx Overall: oropharyngeal mucosa clear 10/16/2014 None Full Exam - General 1994 Respiratory auscultation Overall: breath sounds clear bilaterally 10/16/2014 None Full Exam - General 1994 Respiratory respiratory effort/rhythm Overall: no retractions 10/16/2014 None Full Exam - General 1994 Respiratory respiratory effort/rhythm Overall: normal rate 10/16/2014 None Full Exam - General 1994 Cardiovascular extremities Overall: no clubbing 10/16/2014 None Full Exam - General 1994 Cardiovascular auscultation of heart Overall: normal heart sounds 10/16/2014 None Full Exam - General 1994 Cardiovascular auscultation of heart Overall: regular rate 10/16/2014 None Full Exam - General 1994 Abdomen abdominal exam Overall: no tenderness 10/16/2014 None Full Exam - General 1994 Abdomen abdominal exam Overall: normal bowel sounds 10/16/2014 None Full Exam - General 1994 Integument inspection of skin Overall: few scattered moles, no gross abnormalities 10/16/2014 None Full Exam - General 1994 Neurologic deep tendon reflexes Overall: deep tendon reflexes intact 10/16/2014 None Full Exam - General 1994 Neurologic cranial nerves Overall: crainial nerves 2 - 12 grossly intact 10/16/2014 None Full Exam - General 1994 Psychiatric orientation/consciousness Overall: oriented to person, place and time 10/16/2014 None Full Exam - General 1994 Psychiatric mood and affect Overall: normal mood and affect 10/16/2014 None Procedures Procedure Codes Date ADMIN INFLUENZA VIRUS VAC CPT-4: G0008 03/18/2017 FLU VACC PRSV FREE INC ANTIG CPT-4: 26175 03/18/2017 INITIAL PREVENTIVE EXAM CPT-4: G0402 07/06/2015 IIV4 FLU VACC NO PRESERV ID Formatting Model/CDA Sections, Assigned to SNOMED CT: [id number] CPT-4: 09848Acmxzpt 03/26/2015 IMMUNIZATION ADMIN CPT -4: 72580 03/26/2015 Vital Signs Date Vital 03/18/2017 Blood Pressure 1: 140/72 Code : 8480-6 BMI: 21.5 Code : 83171-9 Heart Rate 1 : 64 bpm Height: 5'1" SpO2: 96% Weight: 114 lbs 03/09/2017 Blood Pressure 1: 120/72 Code : 8480-6 BMI: 21.5 Code : 04562-1 Heart Rate 1 : 75 bpm Height: 5'1" SpO2: 97% Weight: 114 lbs 12/09/2016 Blood Pressure 1: 130/76 Code : 8480-6 BMI: 23.8 Code : 14468-3 Heart Rate 1 : 68 bpm Height: 5'1" SpO2: 98% Weight: 126 lbs 09/08/2016 Blood Pressure 1: 162/80 Code : 8480-6 Blood Pressure 2: 145/90 Code: 8480-6 BMI: 24.7 Code: 11630-8 Heart Rate 1: 77 bpm Height: 5'1" SpO2: 97% Weight: 130 lbs 8 oz 08/11/2016 Blood Pressure 1: 130/80 Code : 8480-6 BMI: 25.9 Code : 01293-4 Heart Rate 1 : 62 bpm Height: 5'1" SpO2: 97% Weight: 137 lbs 07/03/2016 Blood Pressure 1: 134/74 Code : 8480-6 BMI: 26.8 Code : 18254-9 Heart Rate 1 : 74 bpm Height: 5'1" SpO2: 97% Weight: 142 lbs 06/19/2016 Blood Pressure 1: 118/66 Code : 8480-6 Heart Rate 1: 72 bpm SpO2: 96% Weight: 142 lbs 02/04/2016 Blood Pressure 1: 130/80 Code : 8480-6 BMI: 27.2 Code : 90458-0 Heart Rate 1 : 76 bpm Height: 5'1" SpO2: 96% Weight: 144 lbs 01/07/2016 Blood Pressure 1: 136/64 Code : 8480-6 BMI: 27.6 Code : 03961-3 Heart Rate 1 : 73 bpm Height: 5'1" SpO2: 987% Weight: 146 lbs 12/17/2015 Blood Pressure 1: 128/86 Code : 8480-6 BMI: 27.0 Code : 31240-0 Heart Rate 1 : 59 bpm Height: 5'1" SpO2: 96% Weight: 143 lbs 10/16/2015 Blood Pressure 1: 122/78 Code : 8480-6 BMI: 25.7 Code : 77024-9 Heart Rate 1 : 71 bpm Height: 5'1" SpO2: 96% Weight: 136 lbs 08/16/2015 Blood Pressure 1: 138/88 Code : 8480-6 BMI: 27.0 Code : 21146-9 Heart Rate 1 : 75 bpm Height: 5'1" SpO2: 98% Weight: 143 lbs 07/06/2015 Blood Pressure 1: 120/72 Code : 8480-6 BMI: 26.5 Code : 35288-3 Heart Rate 1 : 72 bpm Height: 5'1" SpO2: 96% Weight: 140 lbs 06/07/2015 Blood Pressure 1: 152/86 Code : 8480-6 BMI: 26.1 Code : 35859-2 Heart Rate 1 : 88 bpm Height: 5'1" SpO2: 97% Weight: 138 lbs 05/01/2015 Blood Pressure 1: 120/80 Code : 8480-6 BMI: 27.0 Code : 85538-5 Heart Rate 1 : 82 bpm Height: 5'1" SpO2: 98% Temperature: 36.7 (C) / 98.0 (F) Weight: 143 lbs 03/26/2015 Blood Pressure 1: 140/80 Code : 8480-6 BMI: 28.0 Code : 23838-9 Heart Rate 1 : 69 bpm Height: 5'1" SpO2: 96% Weight: 148 lbs 03/13/2015 Blood Pressure 1: 128/70 Code : 8480-6 BMI: 28.2 Code : 07500-8 Heart Rate 1 : 76 bpm Height: 5'1" Weight: 149 lbs 01/30/2015 Blood Pressure 1: 142/68 Code : 8480-6 BMI: 28.7 Code : 27556-6 Heart Rate 1 : 86 bpm Height: 5'1" SpO2: 96% Weight: 152 lbs 10/16/2014 Blood Pressure 1: 160/88 Code : 8480-6 BMI: 28.2 Code : 96534-7 Heart Rate 1 : 66 bpm Height: 5'1" Weight: 149 lbs Functional Status No Functional Status data History of Present Illness Symptom Name Status Result Effective Date Notes medication follow up Location oral intake 03/18/2017 None Hospital Follow Up _ Other: brain bleed 03/09/2017 None low back pain Location on the left 12/09/2016 None low back pain Quality chronic 12/09/2016 None low back pain Onset and Resolution ongoing 12/09/2016 None low back pain Limitation on Activities allows weight bearing activity 12/09/2016 None low back pain Limitation on Activities moderately limits activities 12/09/2016 None low back pain Pertinent Findings female 12/09/2016 None low back pain Pertinent Findings Denies bowel disturbance 12/09/2016 None low back pain Pertinent Findings pain with movement 12/09/2016 None abnormal bleeding and bruising Quality acute 09/08/2016 None abnormal bleeding and bruising Onset and Resolution ongoing 09/08/2016 None abnormal bleeding and bruising Severity mild 09/08/2016 None abnormal bleeding and bruising Significant Medications antiplatelet agent 09/08/2016 (plavix) low back pain Location on the left 09/08/2016 None low back pain Quality chronic 09/08/2016 None low back pain Onset and Resolution ongoing 09/08/2016 None low back pain Limitation on Activities allows weight bearing activity 09/08/2016 None low back pain Limitation on Activities moderately limits activities 09/08/2016 None Hospital Follow Up _ Other: stroke-like symptoms- slurred speech, memory loss 08/11/2016 None Hospital Follow Up Quality acute 08/11/2016 None Hospital Follow Up Onset of Symptom 1 weeks ago 08/11/2016 None Hospital Follow Up Onset and Resolution resolved 08/11/2016 None back pain Location diffusely 07/03/2016 None back pain Quality aching 07/03/2016 None back pain Onset and Resolution ongoing 07/03/2016 None back pain Location thoracic spine 06/19/2016 None back pain Location lumbar spine 06/19/2016 None back pain Quality chronic 06/19/2016 None back pain Onset and Resolution ongoing 06/19/2016 None back pain Limitation on Activities moderately limits activities 06/19/2016 None back pain Frequency of Episodes increasing 06/19/2016 None back pain Frequency of Episodes on and off 06/19/2016 None back pain Triggers no known associated factors 06/19/2016 None back pain Significant Medical Conditions spinal stenosis 06/19/2016 None back pain Alleviating Factors rest 06/19/2016 None back pain Alleviating Factors medication 06/19/2016 None back pain Initial treatment medication 06/19/2016 None back pain Severity moderate 06/19/2016 None back pain Pertinent Findings Denies cervical fracture 06/19/2016 None back pain Pertinent Findings Denies extremity numbness 06/19/2016 None back pain Pertinent Findings Denies extremity weakness 06/19/2016 None back pain Pertinent Findings Denies sleep disturbance 06/19/2016 None medication follow up Additional Comments medication use 06/19/2016 hydrocodone, diazepam medication follow up Location oral intake 06/19/2016 None medication follow up side effect pain 06/19/2016 None medication follow up Triggers injury 06/19/2016 None medication follow up Significant Past Medical History injury 06/19/2016 None medication follow up Significant Past Medical History Other: 3 spinal surgeries 06/19/2016 None medication follow up Triggers pain 06/19/2016 None back pain Location thoracic spine 02/04/2016 None back pain Location lumbar spine 02/04/2016 None back pain Quality chronic 02/04/2016 None back pain Onset and Resolution ongoing 02/04/2016 None back pain Limitation on Activities moderately limits activities 02/04/2016 None back pain Frequency of Episodes increasing 02/04/2016 None back pain Frequency of Episodes on and off 02/04/2016 None back pain Triggers no known associated factors 02/04/2016 None back pain Significant Medical Conditions spinal stenosis 02/04/2016 None back pain Alleviating Factors rest 02/04/2016 None back pain Alleviating Factors medication 02/04/2016 None back pain Initial treatment medication 02/04/2016 None back pain Severity moderate 02/04/2016 None back pain Pertinent Findings Denies cervical fracture 02/04/2016 None back pain Pertinent Findings Denies extremity numbness 02/04/2016 None back pain Pertinent Findings Denies extremity weakness 02/04/2016 None back pain Pertinent Findings Denies sleep disturbance 02/04/2016 None back pain Location thoracic spine 01/07/2016 None back pain Location lumbar spine 01/07/2016 None back pain Quality chronic 01/07/2016 None back pain Onset and Resolution ongoing 01/07/2016 None back pain Limitation on Activities moderately limits activities 01/07/2016 None back pain Frequency of Episodes increasing 01/07/2016 None back pain Frequency of Episodes on and off 01/07/2016 None back pain Triggers no known associated factors 01/07/2016 None back pain Significant Medical Conditions spinal stenosis 01/07/2016 None back pain Alleviating Factors rest 01/07/2016 None back pain Alleviating Factors medication 01/07/2016 None back pain Initial treatment medication 01/07/2016 None back pain Severity moderate 01/07/2016 None back pain Pertinent Findings Denies cervical fracture 01/07/2016 None back pain Pertinent Findings Denies extremity numbness 01/07/2016 None back pain Pertinent Findings Denies extremity weakness 01/07/2016 None back pain Pertinent Findings Denies sleep disturbance 01/07/2016 None back pain Location lumbar spine 12/17/2015 None back pain Quality chronic 12/17/2015 None back pain Onset and Resolution ongoing 12/17/2015 None back pain Limitation on Activities moderately limits activities 12/17/2015 None back pain Frequency of Episodes increasing 12/17/2015 None back pain Frequency of Episodes on and off 12/17/2015 None back pain Triggers no known associated factors 12/17/2015 None back pain Significant Medical Conditions spinal stenosis 12/17/2015 None back pain Alleviating Factors rest 12/17/2015 None back pain Alleviating Factors medication 12/17/2015 None back pain Initial treatment medication 12/17/2015 None back pain Severity moderate 12/17/2015 None back pain Pertinent Findings Denies cervical fracture 12/17/2015 None back pain Pertinent Findings Denies extremity numbness 12/17/2015 None back pain Pertinent Findings Denies extremity weakness 12/17/2015 None back pain Pertinent Findings Denies sleep disturbance 12/17/2015 None back pain Location thoracic spine 12/17/2015 None back pain Location lumbar spine 10/16/2015 None back pain Quality chronic 10/16/2015 None back pain Onset and Resolution ongoing 10/16/2015 None back pain Limitation on Activities moderately limits activities 10/16/2015 None back pain Frequency of Episodes increasing 10/16/2015 None back pain Frequency of Episodes on and off 10/16/2015 None back pain Triggers no known associated factors 10/16/2015 None back pain Significant Medical Conditions spinal stenosis 10/16/2015 None back pain Initial treatment medication 10/16/2015 None back pain Severity moderate 10/16/2015 None back pain Alleviating Factors rest 10/16/2015 None back pain Alleviating Factors medication 10/16/2015 None back pain Pertinent Findings Denies cervical fracture 10/16/2015 None back pain Pertinent Findings Denies extremity numbness 10/16/2015 None back pain Pertinent Findings Denies extremity weakness 10/16/2015 None back pain Pertinent Findings Denies sleep disturbance 10/16/2015 None fatigue Onset and Resolution ongoing 08/16/2015 None fatigue Onset of Symptom _ years ago 08/16/2015 None fatigue Limitation on Activities moderately limits activities 08/16/2015 None fatigue Timing of Episodes in the afternoon 08/16/2015 None fatigue Timing of Episodes in the evening 08/16/2015 None fatigue Triggers no known associated factors 08/16/2015 None fatigue Pertinent Findings back pain 08/16/2015 None fatigue Pertinent Findings Denies depressed mood 08/16/2015 None fatigue Pertinent Findings Denies dizziness 08/16/2015 little fatigue Pertinent Findings Denies insomnia 08/16/2015 None depression Quality stable 08/16/2015 None depression Onset and Resolution ongoing 08/16/2015 None depression Limitation on Activities moderately limits activities 08/16/2015 None depression Pertinent Findings Denies anxiety 08/16/2015 None back pain Location lumbar spine 08/16/2015 None back pain Onset and Resolution ongoing 08/16/2015 None back pain Quality chronic 08/16/2015 None back pain Limitation on Activities moderately limits activities 08/16/2015 None back pain Frequency of Episodes increasing 08/16/2015 None back pain Frequency of Episodes on and off 08/16/2015 None back pain Triggers no known associated factors 08/16/2015 None back pain Significant Medical Conditions spinal stenosis 08/16/2015 None back pain Initial treatment medication 08/16/2015 None back pain Severity moderate 08/16/2015 None Annual Medicare Wellness Exam Alcohol Use does not drink any alcohol 07/06/2015 None Annual Medicare Wellness Exam Aspirin Use no 07/06/2015 None Annual Medicare Wellness Exam Blood Glucose (self reported) don't know 07/06/2015 None Annual Medicare Wellness Exam Blood Pressure (self reported ) don't know 07/06/2015 None Annual Medicare Wellness Exam Cholesterol (self reported) don't know 07/06/2015 None Annual Medicare Wellness Exam Depression (last 6 months) some of the time 07/06/2015 None Annual Medicare Wellness Exam Depression or Hopelessness some of the time 07/06/2015 None Annual Medicare Wellness Exam Describe Your Health fair 07/06/2015 None Annual Medicare Wellness Exam Exercise Habits does not exercise 07/06/2015 None Annual Medicare Wellness Exam Handling Stress usually yobany effectively 07/06/2015 None Annual Medicare Wellness Exam Hemaglobin A-1C (self reported ) don't know 07/06/2015 None Annual Medicare Wellness Exam Hours of Sleep 10 07/06/2015 None Annual Medicare Wellness Exam Interaction with Friends yes 07/06/2015 None Annual Medicare Wellness Exam Interests & Pleasure some of the time 07/06/2015 None Annual Medicare Wellness Exam Life Satisfaction satisfied 07/06/2015 None Annual Medicare Wellness Exam Motor Vehicle Safety always fastens seat belt: y 07/06/2015 None Annual Medicare Wellness Exam Motor Vehicle Safety drives after drinking: n 07/06/2015 None Annual Medicare Wellness Exam Motor Vehicle Safety rides with someone who has been drinking: n 2015 None Annual Medicare Wellness Exam Nutrition servings of fried food / high fat foods per day: 0 2015 None Annual Medicare Wellness Exam Nutrition servings of high fiber / whole grain per day: 2 07/06/2015 None Annual Medicare Wellness Exam Nutrition servings of vegetables / fruit per day: 2 07/06/2015 None Annual Medicare Wellness Exam Social & Emotional Support always 07/06/2015 None Annual Medicare Wellness Exam Stress some of the time 07/06/2015 None Annual Medicare Wellness Exam Sun Exposure protects skin when outdoors: y 07/06/2015 None fatigue Limitation on Activities moderately limits activities 06/07/2015 None fatigue Timing of Episodes in the afternoon 06/07/2015 None fatigue Timing of Episodes in the evening 06/07/2015 None fatigue Triggers no known associated factors 06/07/2015 None fatigue Pertinent Findings back pain 06/07/2015 None fatigue Pertinent Findings Denies depressed mood 06/07/2015 None fatigue Pertinent Findings Denies dizziness 06/07/2015 little fatigue Pertinent Findings Denies insomnia 06/07/2015 None fatigue Onset and Resolution ongoing 06/07/2015 None depression Onset and Resolution ongoing 06/07/2015 None depression Limitation on Activities moderately limits activities 06/07/2015 None depression Pertinent Findings Denies anxiety 06/07/2015 None fatigue Onset of Symptom _ years ago 06/07/2015 None depression Quality stable 06/07/2015 None back pain Location lumbar spine 06/07/2015 None back pain Onset and Resolution ongoing 06/07/2015 None fatigue Onset of Symptom 6 months ago 05/01/2015 None fatigue Limitation on Activities moderately limits activities 05/01/2015 None fatigue Pertinent Findings back pain 05/01/2015 None fatigue Pertinent Findings Denies depressed mood 05/01/2015 None fatigue Pertinent Findings dizziness 05/01/2015 little fatigue Pertinent Findings Denies insomnia 05/01/2015 None depression Quality worsening 05/01/2015 None depression Onset and Resolution ongoing 05/01/2015 None depression Limitation on Activities moderately limits activities 05/01/2015 None depression Pertinent Findings Denies anxiety 05/01/2015 None depression Pertinent Findings depressed mood 05/01/2015 None fatigue Frequency of Episodes increasing 05/01/2015 None fatigue Timing of Episodes in the afternoon 05/01/2015 None fatigue Timing of Episodes in the evening 05/01/2015 None fatigue Triggers no known associated factors 05/01/2015 None fatigue Onset and Resolution ongoing 05/01/2015 None foot pain Location on the right 03/26/2015 None foot pain Quality dull pain 03/26/2015 None foot pain Quality stable 03/26/2015 None foot pain Onset and Resolution gradual in onset 03/26/2015 None foot pain Onset of Symptom _ months ago 03/26/2015 None foot pain Frequency of Episodes daily 03/26/2015 None foot pain Pertinent Findings limping 03/26/2015 None foot pain Limitation on Activities allows weight bearing activity 03/26/2015 None foot pain Severity mild 03/26/2015 None foot pain Alleviating Factors non weight bearing 03/26/2015 None foot pain Exacerbating Factors walking 03/26/2015 None foot pain Location on the right 03/13/2015 None foot pain Quality chronic 03/13/2015 None foot pain Onset and Resolution sudden in onset 03/13/2015 None foot pain Onset of Symptom 2 weeks ago 03/13/2015 None foot pain Mechanism of injury unknown 03/13/2015 None foot pain Pertinent Findings Denies bruising 03/13/2015 None foot pain Pertinent Findings limping 03/13/2015 None foot pain Pertinent Findings pain with movement 03/13/2015 None foot pain Pertinent Findings Denies swelling 03/13/2015 None foot pain Limitation on Activities restricts weight bearing activity 03/13/2015 None foot pain Severity moderate 03/13/2015 None back pain Location lumbar-sacral spine 01/30/2015 None back pain Location Cervical spine 01/30/2015 None back pain Quality chronic 01/30/2015 None back pain Onset and Resolution ongoing 01/30/2015 None back pain Onset of Symptom _ years ago 01/30/2015 None back pain Limitation on Activities moderately limits activities 01/30/2015 None back pain Frequency of Episodes unchanged 01/30/2015 None back pain Triggers activity 01/30/2015 None back pain Exacerbating Factors activity 01/30/2015 None back pain Initial treatment medication 01/30/2015 several surgery back pain Severity moderate 01/30/2015 None back pain Sports Participation not significant 01/30/2015 None back pain Pertinent Findings Denies fever 01/30/2015 None back pain Radiating down left leg 01/30/2015 None back pain Quality chronic 10/16/2014 None back pain Location lumbar-sacral spine 10/16/2014 None back pain Onset and Resolution worse during the day 10/16/2014 None back pain Radiating down left leg 10/16/2014 None arthritis Frequency of Episodes daily 10/16/2014 None arthritis Pertinent Findings Denies stiffness 10/16/2014 None depression Frequency of Episodes monthly 10/16/2014 when her health problems increase Advance Directives No Advance Directive data Encounters Encounter Performer Location Codes Date EST. 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 PATIENT, LEVEL IV Diagnosis: Mixed hyperlipidemia[ICD10: E78.2] Diagnosis: Chronic pain syndrome[ICD10: G89.4] Diagnosis: Major depressive disorder, recurrent, mild[ICD10: F33.0] [facility] CPT-4: 18076 12/09/2016 ([id number]) 50700 EST. 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 PATIENT, LEVEL III Diagnosis: Chronic pain syndrome[ICD10: G89.4] Diagnosis: Low back pain[ICD10: M54.5] Diagnosis: Major depressive disorder, recurrent, mild[ICD10: F33.0] Diagnosis: Mild cognitive impairment, so stated[ICD10: G31.84] Angelica Ochoa MD, [facility] CPT-4: 17205 07/03/2016 ([id number]) 87480 EST. PATIENT, LEVEL III Diagnosis: Chronic pain syndrome[ICD10: G89.4] Donna Ochoa MD, [facility] CPT-4: 29600 06/19/2016 ([id number]) 40484 EST. PATIENT, LEVEL IV Diagnosis: Chronic pain syndrome[ICD10: G89.4] Diagnosis: Mild cognitive impairment, so stated[ICD10: G31.84] Donna Ochoa MD, [facility] CPT-4: 42431 02/04/2016 ([id number]) 03033 EST. PATIENT, LEVEL IV Diagnosis: Chronic pain syndrome[ICD10: G89.4] Diagnosis: Mild cognitive impairment, so stated[ICD10: G31.84] Diagnosis: Major depressive disorder, recurrent, mild[ICD10: F33.0] Donna Ochoa MD , [facility] CPT-4: 82232 01/07/2016 ([id number]) 59068 EST. PATIENT, LEVEL IV Diagnosis: Chronic pain syndrome[ICD10: G89.4] Diagnosis: Headache[ICD10: R51] Diagnosis: Major depressive disorder, recurrent, mild[ICD10: F33.0] Diagnosis: Mixed hyperlipidemia[ICD10: E78.2] Donna Ochoa MD, [facility] CPT-4: 66299 12/17/2015 ([id number]) 29557 EST. PATIENT, LEVEL III Diagnosis: Chronic pain syndrome[ICD10: G89.4] Diagnosis: Major depressive disorder, recurrent, mild[ICD10: F33.0] Donna Ochoa MD , [facility] CPT-4: 95363 10/16/2015 ([id number]) 44816 EST. PATIENT, LEVEL III Diagnosis: Low back pain[ICD10: M54.5] Donna Ochoa MD, [facility] CPT-4: 49954 08/16/2015 ([id number]) 23395 EST. 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 PATIENT, LEVEL IV Diagnosis: Major depressive disorder, recurrent, mild[ICD10: F33.0] Diagnosis: Chronic pain syndrome[ICD10: G89.4] Diagnosis: Other fatigue[ICD10: R53.83] Donna Ochoa MD, [facility] CPT-4: 14368 05/01/2015 ([id number]) 89102 EST. PATIENT, LEVEL II Diagnosis: Plantar fascial fibromatosis[ICD10: M72.2] Donna Ochoa MD, [facility] CPT-4: 35775 03/26/2015 ([id number]) 63645 EST. PATIENT, LEVEL III Diagnosis: Plantar fascial fibromatosis[ICD10: M72.2] Donna Ochoa MD, [facility] CPT-4: 11486 03/13/2015 ([id number]) 28595 EST. PATIENT, LEVEL III Diagnosis: Hyperlipidemia[ICD9: 272.4] Diagnosis: ALLERGIC RHINITIS[ICD9: 477.9] Diagnosis: Chronic pain syndrome[ICD9: 338.4] [facility] CPT-4: 43862 01/30/2015 ([id number]) OFFICE VISIT, NEW - LEVEL 4 Diagnosis: ESOPHAGEAL REFLUX[ICD9: 530.81] Diagnosis: Peripheral neuropathy[ICD9: 356.9] Diagnosis: Chronic pain syndrome[ICD9: 338.4] Diagnosis: OSTEOARTH NOS-UNSPEC[ICD9: 715.90] Diagnosis: DEPRESSIVE DISORDER NEC[ICD9: 311] [facility] CPT-4: 70003 10/16/2014 Plan of Care Planned Activity Notes Codes Status Date Referral: External, Ordering Provider Referral Initiated 05/27/2017 Care Plan: Referral Order SNOMED-CT : [id number] Pending 04/20/2017 Patient Education: Patient Medication Summary Completed 03/18/2017 Appointment: Lab Draw 03/17/2017 Patient Education: Patient Medication Summary Completed 03/17/2017 Appointment: [phone] [facility] [place] [place] ([place] min) Complex 03/09/2017 Patient Education: Patient Medication Summary Completed 03/09/2017 Appointment: [phone] [facility] [phone] [place] (30 min) Complex 03/06/2017 Appointment: [facility] [phone] [facility] [place] [place] (15 min) Moderate 01/08/2017 Patient Education: Patient Medication Summary Completed 12/09/2016 Appointment: [facility] [phone] [facility] [place] [place] (15 min) Moderate 11/11/2016 Appointment: Angelica [place] [facility] [phone] [facility] [place] [place] [place] ([place] min) Complex 10/09/2016 Appointment: Marylu Ochoa WPtel: [phone] [facility] [place] (15 min) Moderate 09/08/2016 Patient Education: Patient Medication Summary Completed 09/08/2016 Appointment: Angelica [place] [facility]el[facility] [phone] [facility] [place] [place] [place] ([place] min) Complex 08/19/2016 Appointment: [facility]lu [facility]cho[facility] [phone] [facility] [place] [place] (15 min) Moderate 08/11/2016 Patient Education: Patient Medication Summary Completed 08/11/2016 Appointment: Angelica [place] [facility]Ptel: [phone] [facility] [place] [place] [place] ([place] min) Complex 07/03/2016 Patient Education: Patient Medication Summary Completed 07/03/2016 Care Plan: Referral Order SNOMED-CT : [id number] Pending 07/03/2016 Appointment: Donna Walden WPtel: [phone] [phone] [place] (30 min) Complex 06/19/2016 Patient Education: Patient Medication Summary Completed 06/19/2016 Appointment: Donna Walden [facility]el: [phone] [facility] [place] [phone] [place] ([place] min) Complex 06/05/2016 Appointment: Donna Walden [facility]Ptel: [phone] [facility] [place] [phone] [place] ([place] min) Complex 02/04/2016 Patient Education: Patient Medication Summary Completed 02/04/2016 Appointment: Donna Walden WPtel: [phone] [facility] [place] [phone] [place] ([place] min) Complex 01/14/2016 Appointment: Donna Walden [facility]Ptel: [phone] [facility] [place] [phone] [place] (15 min) Moderate 01/07/2016 Patient Education: Patient Medication Summary Completed 01/07/2016 Patient Education: Patient Medication Summary Completed 12/17/2015 Appointment: Donna Walden WPtel: [facility] [place] [phone] (30 min) Complex 12/13/2015 Appointment: Donna Walden WPtel: [phone] (30 min) Complex 10/16/2015 Patient Education: Patient Medication Summary Completed 10/16/2015 Patient Education: Patient Medication Summary Completed 08/16/2015 Patient Education: Patient Medication Summary Completed 07/06/2015 Appointment: Marylu Ochoa WPtel: [facility] [place] (15 min) Moderate 06/07/2015 Patient Education: Patient Medication Summary Completed 06/07/2015 Appointment: (15 min) Moderate 05/01/2015 Patient Education: Patient Medication Summary Completed 05/01/2015 Appointment: (30 min) Complex 03/26/2015 Patient Education: Patient Medication Summary Completed 03/26/2015 Appointment: (30 min) Complex 03/13/2015 Patient Education: Patient Medication Summary Completed 03/13/2015 Patient Education: Plantar Fasciitis Completed 03/13/2015 Appointment: (15 min) Moderate 02/01/2015 Appointment: (30 min) Complex 01/30/2015 Patient Education: Patient Medication Summary Completed 01/30/2015 Patient Education: Patient Medication Summary Completed 01/26/2015 Appointment: Marylu Ochoa WPtel: [facility] [place] (S[place] New Patient 10/16/2014 Patient Education: Patient Medication Summary Completed 10/16/2014 Patient Education: Hypertension Completed 10/16/2014 Referral: Betsy Samuels Referral Initiated Referral: External, Ordering Provider Referral Relationship Instructions No Instructions
--- OUTSIDE RECORDS SUMMARY | 2017-06-28 11:16 | XMS REPORT | CCD ---
Author Author Marylu Ochoa Organization Marylu Ochoa MD, [facility] Address [address] [place] [address] Phone Care Team Providers Care Consulting Property Manager Name Role Phone PP Unavailable CCM Unavailable Summary Purpose Interface Exchange Insurance Providers Payer name Policy type / Coverage type Covered libertarian ID Effective Begin Date Effective End Date WPS Medicare Part B Medicare Part B [id number] 2015 Unknown [facility] Medicare Part B [id number] 2015 Unknown Family history Mother Diagnosis Age [...] Unknown Retired 10/16/[address]: 323795605 Never smoker 10/16/[address]: 682079551 Never drinks alcohol 10/16/2014 Allergies, Adverse Reactions, [...] Start Date Stop Date Status Fill Instructions hydrocodone 10 mg-acetaminophen 325 mg tablet RxNorm: 344196 1 Tablet(s) PO Q6 as needed 06/17/2017 07/16/2017 Active Aricept 10 mg tablet RxNorm: 264131 1 Tablet(s) PO daily 201608/05/2017 Active Namenda XR 28 mg capsule sprinkle,extended release RxNorm: 064159 1 Capsule(s) PO daily 05/08/2017 05/02/2018 Active hydrocodone 10 mg-acetaminophen 325 mg tablet RxNorm: 992541 1 Tablet(s) PO Q6 as needed 05/05/2017 06/03/2017 Inactive hydrocodone 10 mg-acetaminophen 325 mg tablet RxNorm: 091124 1 Tablet(s) PO Q6 as needed 04/06/2017 05/04/2017 Inactive diazepam 2 mg tablet RxNorm: 573570 1/2 - 1 Tablet(s) PO BID as needed 03/18/2017 No Stop Date Active Cymbalta 30 mg capsule,delayed release RxNorm: 480097 1 Capsule(s) PO daily 03/09/2017 10/04/2017 Active levetiracetam 500 mg tablet RxNorm: 457529 1 Tablet(s) PO BID 03/09/2017 08/05/2017 Active pt to finish out supply of liquid then start on tablets pantoprazole 40 mg tablet,delayed release RxNorm: 555884 1 Tablet(s) PO daily 03/09/2017 07/06/2017 Active Aricept 5 mg tablet RxNorm: 749578 1 Tablet(s) PO daily 201605/07/2017 Inactive hydrocodone 10 mg-acetaminophen 325 mg tablet RxNorm: 892973 1 Tablet(s) PO Q6 as needed 12/04/2016 03/08/2017 Inactive hydrocodone 10 mg-acetaminophen 325 mg tablet RxNorm: 329849 1 Tablet(s) PO Q6 as needed 11/06/2016 12/03/2016 Inactive hydrocodone 10 mg-acetaminophen 325 mg tablet RxNorm: 466754 1 Tablet(s) PO Q6 as needed 10/08/2016 11/05/2016 Inactive Voltaren 1 % topical gel RxNorm: 642660 4 Gram(s) TOP TID as needed for pain as needed 09/25/2016 09/19/2017 Active hydrocodone 10 mg-acetaminophen 325 mg tablet RxNorm: 407468 1 Tablet(s) PO Q6 as needed 09/09/2016 10/07/2016 Inactive Voltaren 1 % topical gel RxNorm: 915108 1 Application TOP TID 09/08/2016 09/24/2016 Inactive Aricept 5 mg tablet RxNorm: 603905 1 Tablet(s) PO daily 201612/06/2016 Inactive Cymbalta 30 mg capsule,delayed release RxNorm: 047893 1 Capsule(s) PO daily 09/08/2016 12/06/2016 Inactive losartan 50 mg tablet RxNorm: 951209 1 Tablet(s) PO daily 201610/07/2016 Inactive clopidogrel 75 mg tablet RxNorm: 296531 75 MG PO DAILY 2016 No Stop Date Active hydrocodone 10 mg-acetaminophen 325 mg tablet RxNorm: 805991 1 Tablet(s) PO Q6 as needed 08/15/2016 09/08/2016 Inactive hydrocodone 10 mg-acetaminophen 325 mg tablet RxNorm: 156898 1 Tablet(s) PO Q6 as needed 07/18/2016 08/14/2016 Inactive Cymbalta 30 mg capsule,delayed release RxNorm: 440694 1 Capsule(s) PO daily 07/03/2016 09/07/2016 Inactive Aricept 5 mg tablet RxNorm: 758464 1 Tablet(s) PO daily 201608/01/2016 Inactive Namenda XR 28 mg capsule sprinkle,extended release RxNorm: 364271 1 Capsule(s) PO daily 07/03/2016 05/07/2017 Inactive diazepam 5 mg tablet RxNorm: 283584 Tablet(s) PO daily as needed TAKE 1/2 TO 1 TABLET BY MOUTH DAILY NEEDED FOR ANXIETY 06/25/2016 03/08/2017 Inactive hydrocodone 10 mg-acetaminophen 325 mg tablet RxNorm: 636096 1 Tablet(s) PO Q6 as needed 06/19/2016 07/17/2016 Inactive Namenda XR 28 mg capsule sprinkle,extended release RxNorm: 233803 1 Capsule(s) PO daily 06/19/2016 07/02/2016 Inactive gabapentin 100 mg capsule RxNorm: 157574 1 Capsule(s) PO TID 03/08/2017 Inactive hydrocodone 10 mg-acetaminophen 325 mg tablet RxNorm: 815292 1 Tablet(s) PO Q6 as needed 05/27/2016 06/18/2016 Inactive diazepam 5 mg tablet RxNorm: 404969 Tablet(s) TAKE 1/2 TO 1 TABLET BY MOUTH DAILY NEEDED FOR ANXIETY 05/15/20162016 Inactive hydrocodone 10 mg-acetaminophen 325 mg tablet RxNorm: 497329 1 Tablet(s) PO Q6 as needed 04/29/2016 05/26/2016 Inactive omeprazole 40 mg capsule,delayed release RxNorm: 728393 Capsule(s) 1 CAPSULE(S) PO DAILY 04/28/2016 03/08/2017 Inactive diazepam 5 mg tablet RxNorm: 409679 Tablet(s) TAKE 1/2 TO 1 TABLET BY MOUTH DAILY NEEDED FOR ANXIETY 04/14/20162015 Inactive hydrocodone 10 mg-acetaminophen 325 mg tablet RxNorm: 747975 1 Tablet(s) PO Q6 as needed 04/01/2016 04/28/2016 Inactive Namenda XR 28 mg capsule sprinkle,extended release RxNorm: 578878 1 Capsule(s) PO daily 03/13/2016 06/18/2016 Inactive Namenda XR 28 mg capsule sprinkle,extended release RxNorm: 048966 1 Capsule(s) PO daily 03/12/2016 03/12/2016 Inactive diazepam 5 mg tablet RxNorm: 330324 Tablet(s) TAKE 1/2 TO 1 TABLET BY MOUTH DAILY NEEDED FOR ANXIETY 02/25/20162015 Inactive Namenda XR 28 mg capsule sprinkle,extended release RxNorm: 036366 1 Capsule(s) PO daily 02/04/2016 03/11/2016 Inactive hydrocodone 10 mg-acetaminophen 325 mg tablet RxNorm: 106363 1 Tablet(s) PO Q6 as needed 02/04/2016 03/04/2016 Inactive omeprazole 40 mg capsule,delayed release RxNorm: 961461 1 CAPSULE(S) PO DAILY 01/23/2016 04/27/2016 Inactive [SAVINGS FOR NON-COVERED DRUGS -- BIN:[id number], PCN: ASPROD1, Group: XXXXX, ID# XXXXXXX, Questions: . THIS IS NOT INSURANCE.] sertraline 50 mg tablet RxNorm: 737854 TAKE 1 1/2 TABLET BY MOUTH ONCE DAILY 01/10/2016 03/08/2017 Inactive hydrocodone 10 mg-acetaminophen 325 mg tablet RxNorm: 174253 1 Tablet(s) PO Q6 as needed 01/07/2016 02/03/2016 Inactive diazepam 5 mg tablet RxNorm: 808395 Tablet(s) TAKE 1/2 TO 1 TABLET BY MOUTH DAILY NEEDED FOR ANXIETY 12/17/20152015 Inactive hydrocodone 10 mg-acetaminophen 325 mg tablet RxNorm: 953242 1 Tablet(s) PO Q6 as needed 12/10/2015 01/06/2016 Inactive gabapentin 100 mg capsule RxNorm: 201606 1 Capsule(s) PO TID 03/11/2016 Inactive gabapentin 100 mg capsule RxNorm: 475791 1 Capsule(s) PO TID 11/12/2015 Inactive hydrocodone 10 mg-acetaminophen 325 mg tablet RxNorm: 048247 1 Tablet(s) PO Q6 as needed 11/12/2015 12/09/2015 Inactive hydrocodone 10 mg-acetaminophen 325 mg tablet RxNorm: 611007 1 Tablet(s) PO Q6 as needed 10/16/2015 11/11/2015 Inactive hydrocodone 10 mg-acetaminophen 325 mg tablet RxNorm: 429113 1 Tablet(s) PO Q6 as needed 09/17/2015 10/15/2015 Inactive hydrocodone 10 mg-acetaminophen 325 mg tablet RxNorm: 021120 1 Tablet(s) PO Q6 as needed 08/16/2015 09/16/2015 Inactive diazepam 5 mg tablet RxNorm: 189510 Tablet(s) TAKE 1/2 TO 1 TABLET BY MOUTH DAILY NEEDED FOR ANXIETY 07/30/20152015 Inactive diazepam 5 mg tablet RxNorm: 967812 Tablet(s) TAKE 1/2 TO 1 TABLET BY MOUTH DAILY NEEDED FOR ANXIETY 07/27/20152015 Inactive hydrocodone 10 mg-acetaminophen 325 mg tablet RxNorm: 405072 1 Tablet(s) PO Q6 as needed 07/19/2015 08/15/2015 Inactive omeprazole 40 mg capsule,delayed release RxNorm: 364991 1 CAPSULE(S) PO DAILY 07/19/2015 01/14/2016 Inactive [SAVINGS FOR NON-COVERED DRUGS -- BIN:[id number], PCN: ASPROD1, Group: XXXXX, ID# XXXXXXX, Questions: . THIS IS NOT INSURANCE.] hydrocodone 10 mg-acetaminophen 325 mg tablet RxNorm: 780647 1 Tablet(s) PO Q6 as needed 06/20/2015 07/18/2015 Inactive baclofen 10 mg tablet RxNorm: 396976 1 Tablet(s) PO TID 201506/07/2015 Inactive baclofen 10 mg tablet RxNorm: 578297 1 Tablet(s) PO TID 201507/07/2015 Inactive diazepam 5 mg tablet RxNorm: 625441 TAKE 1/2 TO 1 TABLET BY MOUTH DAILY NEEDED FOR ANXIETY 05/29/2015 07/26/2015 Inactive sertraline 50 mg tablet RxNorm: 630537 1.5 Tablet(s) PO daily 05/02/2015 10/28/2015 Inactive sertraline 50 mg tablet RxNorm: 258596 1.5 Tablet(s) PO daily 05/01/2015 05/01/2015 Inactive patient to call when needed diazepam 5 mg tablet RxNorm: 796450 1/2-1 Tablet(s) PO QDAY PRN 05/01/2015 05/29/2015 Inactive hydrocodone 10 mg-acetaminophen 325 mg tablet RxNorm: 050084 1 Tablet(s) PO Q6 as needed 04/23/2015 06/19/2015 Inactive hydrocodone 10 mg-acetaminophen 325 mg tablet RxNorm: 937427 1 Tablet(s) PO Q6 as needed 03/26/2015 04/22/2015 Inactive hydrocodone 10 mg-acetaminophen 325 mg tablet RxNorm: 131468 1 Tablet(s) PO Q6 as needed 02/26/2015 03/25/2015 Inactive Lyrica 50 mg capsule RxNorm: 527778 1 Capsule(s) PO TID 201402/03/2016 Inactive Lyrica 50 mg capsule RxNorm: 488563 1 Capsule(s) PO TID 201402/05/2015 Inactive Fish Oil Hayes 3-6-9 300 mg-1,000 mg capsule,delayed release RxNorm: 1 Capsule(s) PO BID 01/30/2015 08/10/2016 Inactive diazepam 5 mg tablet RxNorm: 106872 1 Tablet(s) PO Q8 as needed 01/30/2015 04/30/2015 Inactive hydrocodone 10 mg-acetaminophen 325 mg tablet RxNorm: 592784 1 Tablet(s) PO Q6 as needed 01/19/2015 02/25/2015 Inactive sertraline 50 mg tablet RxNorm: 432007 1 Tablet(s) PO daily 04/30/2015 Inactive hydrocodone 10 mg-acetaminophen 325 mg tablet RxNorm: 294732 1 Tablet(s) PO Q6 as needed 12/12/2014 01/18/2015 Inactive hydrocodone 10 mg-acetaminophen 325 mg tablet RxNorm: 149804 1 Tablet(s) PO Q6 as needed 11/09/2014 12/11/2014 Inactive diazepam 5 mg tablet RxNorm: 715274 1 Tablet(s) PO Q8 as needed 11/01/2014 01/29/2015 Inactive omeprazole 40 mg capsule,delayed release RxNorm: 583458 1 Capsule(s) PO daily 10/02/2014 04/30/2015 Inactive [SAVINGS FOR NON-COVERED DRUGS -- BIN:[id number], PCN: ASPROD1, Group: XXXXX, ID# [id number], Questions: . THIS IS NOT INSURANCE.] omeprazole 40 mg capsule,delayed release RxNorm: 292513 1 Capsule(s) PO daily 10/02/2014 10/01/2014 Inactive atorvastatin 40 mg tablet RxNorm: 519790 1 Tablet(s) PO daily No Start Date Active Vitamin D3 oral RxNorm : 2418 oral No Start Date Active diclofenac sodium 75 mg tablet,delayed release RxNorm: 446028 2 Tablet(s) PO daily No Start Date 04/30/2015 Inactive diazepam 5 mg tablet RxNorm: 829666 1 Tablet(s) PO TID No Start Date 10/31/2014 Inactive Multi Vitamin oral RxNorm: oral No Start Date 03/08/2017 Inactive Flonase nasal RxNorm: 52188 nasal No Start Date 03/08/2017 Inactive gabapentin 100 mg tablet RxNorm: 965845 1 Tablet(s) PO TID No Start Date 02/06/2015 Inactive hydrocodone 10 mg-acetaminophen 325 mg tablet RxNorm: 729732 1 Tablet(s) PO QID No Start Date 11/08/2014 Inactive clopidogrel 75 mg tablet RxNorm: 072921 1 Tablet(s) PO daily No Start Date 09/03/2016 Inactive sertraline 50 mg tablet RxNorm: 165033 1 Tablet(s) PO daily No Start Date [...] 14.1 g/dl 03/09/2017 Cbc With Differential Ord2 Neut% 63.0 % 03/09/2017 Cbc With Differential Ord2 HCT 41.6 % 03/09/2017 Cbc With Differential Ord2 MCV 93.5 fl 03/09/2017 Cbc With Differential Ord2 Lymph% 29.4 % 03/09/2017 Cbc With Differential Ord2 MCH 31.7 pg 03/09/2017 Cbc With Differential Ord2 Crowley% 6.1 % 03/09/2017 Cbc With Differential Ord2 Eos% 1.2 % 03/09/2017 Cbc With Differential Ord2 MCHC 33.9 pg 03/09/2017 Cbc With Differential Ord2 Baso% 0.3 % 03/09/2017 Cbc With Differential Ord2 PLT 224 K/ul 03/09/2017 Cbc With Differential Ord2 Neut ABS# 3.82 K/ul 03/09/2017 Cbc With Differential Ord2 RDW 13.6 % 03/09/2017 Cbc With Differential Ord2 Lymph ABS# 1.78 K/ul 03/09/2017 Cbc With Differential Ord2 Crowley ABS# 0.4 K/ul 03/09/2017 Cbc With Differential Ord2 Eos ABS# 0.1 K/ul 03/09/2017 Cbc With Differential Ord2 Baso ABS# 0.0 K/ul 03/09/2017 Tsh Ord6 hTSH II 0.87 uIU/mL 03/09/2017 %Hba1C Pdw112 % HbA1c 77209-2 4.9 % 03/09/2017 %Hba1C Uxp628 Gluc Ave 94 mg/dL 03/09/2017 Comp Metabolic Pps437 NA 141 mEq/L 03/09/2017 Comp Metabolic Rbf216 K 3.8 mEq/L 03/09/2017 Comp Metabolic Swk275 CL 105 mEq/L 03/09/2017 Comp Metabolic Snn178 CO2 29.0 mEq/L 03/09/2017 Comp Metabolic Xht328 ANION GAP 11 03/09/2017 Comp Metabolic Yfj261 GLUCOSE 98 mg/dL 03/09/2017 Comp Metabolic Qjf691 Creat 0.7 mg/dL 03/09/2017 Comp Metabolic Oug855 eGFR 93 ml/min/1.73m2 03/09/2017 Comp Metabolic Giz070 BUN 11 mg/dL 03/09/2017 Comp Metabolic Xpm846 B/C Ratio 16.4 Ratio 03/09/2017 Comp Metabolic Fwk535 CALCIUM 9.5 mg/dL 03/09/2017 Comp Metabolic Kaq027 ALK PHOS 90 U/L 03/09/2017 Comp Metabolic Jvf382 AST(SGOT) 21 U/L 03/09/2017 Comp Metabolic Bzb177 ALT(SGPT) 15 U/L 03/09/2017 Comp Metabolic Lzd024 BILI T 0.6 mg/dL 03/09/2017 Comp Metabolic Ydp253 ALBUMIN 4.5 g/dL 03/09/2017 Comp Metabolic Lmu518 TPRO 6.4 g/dL 03/09/2017 Comp Metabolic Tgk697 GLOB 1.9 g/dL 03/09/2017 Comp Metabolic Lpo142 A/G Ratio 2.3 Ratio 03/09/2017 Comp Metabolic Hmc629 Osmo 281 mOsmo 03/09/2017 Comp Metabolic Jxh107 NA 142 mEq/L 09/03/2016 Comp Metabolic Ffl154 K 3.9 mEq/L 09/03/2016 Comp Metabolic Erz477 CL 107 mEq/L 09/03/2016 Comp Metabolic Rpt618 CO2 26.0 mEq/L 09/03/2016 Comp Metabolic Yas515 ANION GAP 13 09/03/2016 Comp Metabolic Mjm298 GLUCOSE 107 mg/dL 09/03/2016 Comp Metabolic Qws302 Creat 0.7 mg/dL 09/03/2016 Comp Metabolic Iep414 eGFR 85 ml/min/1.73m2 09/03/2016 Comp Metabolic Xmv759 BUN 16 mg/dL 09/03/2016 Comp Metabolic Jhf393 B/C Ratio 21.9 Ratio 09/03/2016 Comp Metabolic Vbe403 CALCIUM 8.8 mg/dL 09/03/2016 Comp Metabolic Wgk803 ALK PHOS 51 U/L 09/03/2016 Comp Metabolic Nga064 AST(SGOT) 24 U/L 09/03/2016 Comp Metabolic Azj335 ALT(SGPT) 20 U/L 09/03/2016 Comp Metabolic Pkf489 BILI T 0.7 mg/dL 09/03/2016 Comp Metabolic Nwb900 ALBUMIN 4.1 g/dL 09/03/2016 Comp Metabolic Fby017 TPRO 6.1 g/dL 09/03/2016 Comp Metabolic Sbx149 GLOB 2.0 g/dL 09/03/2016 Comp Metabolic Pcr716 A/G Ratio 2.1 Ratio 09/03/2016 Comp Metabolic Ekp129 Osmo 285 mOsmo 09/03/2016 Cbc With Differential [...] 30.3 pg 09/03/2016 Cbc With Differential Ord2 Crowley% 6.5 % 09/03/2016 Cbc With Differential Ord2 [...] 1.53 K/ul 09/03/2016 Cbc With Differential Ord2 Crowley ABS# 0.4 K/ul 09/03/2016 Cbc With Differential [...] Ord15 CALCIUM 9.1 mg/dL 12/21/2015 Comp Metabolic Weg031 NA 138 mEq/L 07/06/2015 Comp Metabolic Anz574 K 3.9 mEq/L 07/06/2015 Comp Metabolic Igp094 CL 103 mEq/L 07/06/2015 Comp Metabolic Vwr931 CO2 28.0 mEq/L 07/06/2015 Comp Metabolic Sau051 ANION GAP 11 07/06/2015 Comp Metabolic Wzv798 GLUCOSE 114 mg/dL 07/06/2015 Comp Metabolic Bap691 Creat 0.7 mg/dL 07/06/2015 Comp Metabolic Yau960 eGFR 97 ml/min/1.73m2 07/06/2015 Comp Metabolic Wsv139 BUN 11 mg/dL 07/06/2015 Comp Metabolic Ptq158 B/C Ratio 16.9 Ratio 07/06/2015 Comp Metabolic Eqs304 CALCIUM 9.1 mg/dL 07/06/2015 Comp Metabolic Kbo850 ALK PHOS 57 U/L 07/06/2015 Comp Metabolic Tfx415 AST(SGOT) 26 U/L 07/06/2015 Comp Metabolic Mnr529 ALT(SGPT) 17 U/L 07/06/2015 Comp Metabolic Mbj005 BILI T 0.6 mg/dL 07/06/2015 Comp Metabolic Kow320 ALBUMIN 4.6 g/dL 07/06/2015 Comp Metabolic Wax110 TPRO 6.7 g/dL 07/06/2015 Comp Metabolic Hkk587 GLOB 2.1 g/dL 07/06/2015 Comp Metabolic Hpa952 A/G Ratio 2.2 Ratio 07/06/2015 Comp Metabolic Sce472 Osmo 276 mOsmo 07/06/2015 Lipid Ord30 CHOL 228 mg/dL 07/06/2015 Lipid Ord30 HDL 48.0 mg/dl 07/06/2015 Lipid Ord30 TRIG 176 mg/dL 07/06/2015 Lipid Ord30 LDL 145 mg/dL 07/06/2015 Lipid Ord30 C/HDL 4.8 Ratio 07/06/2015 Tsh Ord6 hTSH II 0.74 uIU/mL 05/01/2015 Comp Metabolic Qsx132 NA 141 mEq/L 05/01/2015 Comp Metabolic Oea601 K 4.0 mEq/L 05/01/2015 Comp Metabolic Rti827 CL 106 mEq/L 05/01/2015 Comp Metabolic Egb101 CO2 26.0 mEq/L 05/01/2015 Comp Metabolic Rtc213 ANION GAP 13 05/01/2015 Comp Metabolic Iev072 GLUCOSE 124 mg/dL 05/01/2015 Comp Metabolic Unc701 Creat 0.8 mg/dL 05/01/2015 Comp Metabolic Oxb850 eGFR 79 ml/min/1.73m2 05/01/2015 Comp Metabolic Aew918 BUN 13 mg/dL 05/01/2015 Comp Metabolic Iks074 B/C Ratio 16.7 Ratio 05/01/2015 Comp Metabolic Wzy655 CALCIUM 9.3 mg/dL 05/01/2015 Comp Metabolic Fhp821 ALK PHOS 54 U/L 05/01/2015 Comp Metabolic Bdw940 AST(SGOT) 21 U/L 05/01/2015 Comp Metabolic Ihd811 ALT(SGPT) 14 U/L 05/01/2015 Comp Metabolic Vpn259 BILI T 0.5 mg/dL 05/01/2015 Comp Metabolic Lzr357 ALBUMIN 4.5 g/dL 05/01/2015 Comp Metabolic Xrm621 TPRO 6.4 g/dL 05/01/2015 Comp Metabolic Zuo357 GLOB 1.9 g/dL 05/01/2015 Comp Metabolic Cvd818 A/G Ratio 2.4 Ratio 05/01/2015 Comp Metabolic Fwr981 Osmo 283 mOsmo 05/01/2015 Cbc With Differential [...] Differential Ord2 RDW 16.8 % 05/01/2015 %Hba1C Eya660 % HbA1c 90286-8 5.4 % 01/29/2015 %Hba1C Slp325 Gluc Ave 108 mg/dL 01/29/2015 Lipid Ord30 CHOL 221 mg/dL 01/26/2015 Lipid Ord30 HDL 37.0 mg/dl 01/26/2015 Lipid Ord30 TRIG 274 mg/dL 01/26/2015 Lipid Ord30 LDL 129 mg/dL 01/26/2015 Lipid Ord30 C/HDL 6.0 Ratio 01/26/2015 Tsh Ord6 hTSH II 0.85 uIU/mL 01/26/2015 Comp Metabolic Onl881 NA 137 mEq/L 01/26/2015 Comp Metabolic Lwv247 K 4.0 mEq/L 01/26/2015 Comp Metabolic Ets410 CL 104 mEq/L 01/26/2015 Comp Metabolic Cmw492 CO2 27.0 mEq/L 01/26/2015 Comp Metabolic Nxr020 ANION GAP 10 01/26/2015 Comp Metabolic Cho648 GLUCOSE 131 mg/dL 01/26/2015 Comp Metabolic Ieb662 Creat 0.8 mg/dL 01/26/2015 Comp Metabolic Jii412 eGFR 77 ml/min/1.73m2 01/26/2015 Comp Metabolic Plw126 BUN 16 mg/dL 01/26/2015 Comp Metabolic Yya927 B/C Ratio 20.0 Ratio 01/26/2015 Comp Metabolic Ttg104 CALCIUM 9.1 mg/dL 01/26/2015 Comp Metabolic Nnv844 ALK PHOS 66 U/L 01/26/2015 Comp Metabolic Zgx678 AST(SGOT) 24 U/L 01/26/2015 Comp Metabolic Kdb526 ALT(SGPT) 20 U/L 01/26/2015 Comp Metabolic Uqn724 BILI T 0.4 mg/dL 01/26/2015 Comp Metabolic Jfm320 ALBUMIN 4.2 g/dL 01/26/2015 Comp Metabolic Iiq377 TPRO 6.4 g/dL 01/26/2015 Comp Metabolic Iyz404 GLOB 2.2 g/dL 01/26/2015 Comp Metabolic Wqm168 A/G Ratio 1.9 Ratio 01/26/2015 Comp Metabolic Jkc350 Osmo 277 mOsmo 01/26/2015 Cbc With Differential [...] Differential Ord2 RDW 15.5 % 01/26/2015 B12 Djs781 B12 669.00 pg/ml 01/26/2015 Review of Systems [...] Effective Dates Notes Full Exam - General 1994 Eyes conjunctiva /eyelids Overall: conjunctiva clear 03/18/2017 [...] lips 06/19/2016 None Full Exam - General 1995 Ears/Nose/Throat lips/teeth/gingiva Overall: normal dentition 06/19/2016 None Full Exam - General 1995 Ears/Nose/Throat oral cavity/pharynx/larynx Overall: oral mucosa clear 06/19/2016 None Full Exam - General 1995 Ears/Nose/Throat oral cavity/pharynx/larynx Overall: oropharyngeal mucosa clear [...] Where are we - state/country/town/hospital/floor (5): 5 01/07/2016 None Full Exam - General 1994 Neurologic mental status Attention/calculation: _ Serial 7's or "world" spelled backward (5): 5 01/07/2016 None Full Exam - General 1994 [...] well groomed 03/13/2015 None Full Exam - Orthopedic Constitutional general appearance Overall: no assistive devices 03/13/2015 None Full Exam - Orthopedic Constitutional general appearance Overall: atraumatic 03/13/2015 None [...] FLU VACC PRSV FREE INC ANTIG CPT-4: 61263 03/18/2017 INITIAL PREVENTIVE EXAM CPT-4: G0402 07/06/2015 IIV4 FLU VACC NO PRESERV ID Formatting Model/CDA Sections, Assigned to SNOMED CT: [id number] CPT-4: 68822Nvetgja 03/26/2015 IMMUNIZATION ADMIN CPT -4: 03526 03/26/2015 Vital Signs Date Vital 03/18/2017 Blood Pressure 1: 140/72 Code : 8480-6 BMI: 21.5 Code : 11664-0 Heart Rate 1 : 64 bpm Height: 5'1" SpO2: 96% Weight: 114 lbs 03/09/2017 Blood Pressure 1: 120/72 Code : 8480-6 BMI: 21.5 Code : 66210-1 Heart Rate 1 : 75 bpm Height: 5'1" SpO2: 97% Weight: 114 lbs 12/09/2016 Blood Pressure 1: 130/76 Code : 8480-6 BMI: 23.8 Code : 15340-8 Heart Rate 1 : 68 bpm Height: 5'1" SpO2: 98% Weight: 126 lbs 09/08/2016 Blood Pressure 1: 162/80 Code : 8480-6 Blood Pressure 2: 145/90 Code: 8480-6 BMI: 24.7 Code: 88870-7 Heart Rate 1: 77 bpm Height: 5'1" SpO2: 97% Weight: 130 lbs 8 oz 08/11/2016 Blood Pressure 1: 130/80 Code : 8480-6 BMI: 25.9 Code : 95151-8 Heart Rate 1 : 62 bpm Height: 5'1" SpO2: 97% Weight: 137 lbs 07/03/2016 Blood Pressure 1: 134/74 Code : 8480-6 BMI: 26.8 Code : 59535-9 Heart Rate 1 : 74 bpm Height: 5'1" SpO2: 97% Weight: 142 lbs 06/19/2016 Blood Pressure 1: 118/66 Code : 8480-6 Heart Rate 1: 72 bpm SpO2: 96% Weight: 142 lbs 02/04/2016 Blood Pressure 1: 130/80 Code : 8480-6 BMI: 27.2 Code : 30425-6 Heart Rate 1 : 76 bpm Height: 5'1" SpO2: 96% Weight: 144 lbs 01/07/2016 Blood Pressure 1: 136/64 Code : 8480-6 BMI: 27.6 Code : 24199-9 Heart Rate 1 : 73 bpm Height: 5'1" SpO2: 987% Weight: 146 lbs 12/17/2015 Blood Pressure 1: 128/86 Code : 8480-6 BMI: 27.0 Code : 22941-7 Heart Rate 1 : 59 bpm Height: 5'1" SpO2: 96% Weight: 143 lbs 10/16/2015 Blood Pressure 1: 122/78 Code : 8480-6 BMI: 25.7 Code : 37385-1 Heart Rate 1 : 71 bpm Height: 5'1" SpO2: 96% Weight: 136 lbs 08/16/2015 Blood Pressure 1: 138/88 Code : 8480-6 BMI: 27.0 Code : 48732-9 Heart Rate 1 : 75 bpm Height: 5'1" SpO2: 98% Weight: 143 lbs 07/06/2015 Blood Pressure 1: 120/72 Code : 8480-6 BMI: 26.5 Code : 89953-0 Heart Rate 1 : 72 bpm Height: 5'1" SpO2: 96% Weight: 140 lbs 06/07/2015 Blood Pressure 1: 152/86 Code : 8480-6 BMI: 26.1 Code : 17177-9 Heart Rate 1 : 88 bpm Height: 5'1" SpO2: 97% Weight: 138 lbs 05/01/2015 Blood Pressure 1: 120/80 Code : 8480-6 BMI: 27.0 Code : 28478-4 Heart Rate 1 : 82 bpm Height: 5'1" SpO2: 98% Temperature: 36.7 (C) / 98.0 (F) Weight: 143 lbs 03/26/2015 Blood Pressure 1: 140/80 Code : 8480-6 BMI: 28.0 Code : 98944-4 Heart Rate 1 : 69 bpm Height: 5'1" SpO2: 96% Weight: 148 lbs 03/13/2015 Blood Pressure 1: 128/70 Code : 8480-6 BMI: 28.2 Code : 49496-3 Heart Rate 1 : 76 bpm Height: 5'1" Weight: 149 lbs 01/30/2015 Blood Pressure 1: 142/68 Code : 8480-6 BMI: 28.7 Code : 43128-5 Heart Rate 1 : 86 bpm Height: 5'1" SpO2: 96% Weight: 152 lbs 10/16/2014 Blood Pressure 1: 160/88 Code : 8480-6 BMI: 28.2 Code : 39199-0 Heart Rate 1 : 66 bpm Height: [...] Essential (primary) hypertension[ICD10: I10] Angelica Ochoa MD, [facility] CPT-4: 24586 03/18/2017 [id number]) [id number] EST. PATIENT, LEVEL IV Diagnosis: Essential (primary) hypertension[ICD10: I10] Diagnosis: Major depressive disorder, recurrent, moderate[ICD10: F33.1] Diagnosis: Underweight[ICD10: R63.6] Diagnosis: Localization-related (focal) (partial) symptomatic epilepsy and epileptic syndromes with simple partial seizures, not intractable, without status epilepticus[ICD10: G40.109] Marylu Ochoa MD, [facility] CPT-4: 00059 03/09/2017 ([id number]) 20070 EST. PATIENT, LEVEL IV Diagnosis: Mixed hyperlipidemia[ICD10: E78.2] Diagnosis: Chronic pain syndrome[ICD10: G89.4] Diagnosis: Major depressive disorder, recurrent, mild[ICD10: F33.0] [facility] CPT-4: 28421 12/09/2016 ([id number]) [id number] EST. 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 PATIENT, LEVEL III Diagnosis: Chronic pain syndrome[ICD10: G89.4] Diagnosis: Low back pain[ICD10: M54.5] Diagnosis: Major depressive disorder, recurrent, mild[ICD10: F33.0] Diagnosis: Mild cognitive impairment, so stated[ICD10: G31.84] Angelica Ochoa MD, [facility] CPT-4: 26078 07/03/2016 ([id number]) 81263 EST. PATIENT, LEVEL III Diagnosis: Chronic pain syndrome[ICD10: G89.4] Donna Ochoa MD, [facility] CPT-4: 42247 06/19/2016 ([id number]) 94866 EST. PATIENT, LEVEL IV Diagnosis: Chronic pain syndrome[ICD10: G89.4] Diagnosis: Mild cognitive impairment, so stated[ICD10: G31.84] Donna Ochoa MD, [facility] CPT-4: 74993 02/04/2016 ([id number]) 29264 EST. PATIENT, LEVEL IV Diagnosis: Chronic pain syndrome[ICD10: G89.4] Diagnosis: Mild cognitive impairment, so stated[ICD10: G31.84] Diagnosis: Major depressive disorder, recurrent, mild[ICD10: F33.0] Donna Ochoa MD , [facility] CPT-4: 61531 01/07/2016 ([id number]) 68356 EST. PATIENT, LEVEL IV Diagnosis: Chronic pain syndrome[ICD10: G89.4] Diagnosis: Headache[ICD10: R51] Diagnosis: Major depressive disorder, recurrent, mild[ICD10: F33.0] Diagnosis: Mixed hyperlipidemia[ICD10: E78.2] Donna Ochoa MD, [facility] CPT-4: 99628 12/17/2015 ([id number]) 73037 EST. PATIENT, LEVEL III Diagnosis: Chronic pain syndrome[ICD10: G89.4] Diagnosis: Major depressive disorder, recurrent, mild[ICD10: F33.0] Donna Ochoa MD , [facility] CPT-4: 27372 10/16/2015 ([id number]) 59027 EST. PATIENT, LEVEL III Diagnosis: Low back pain[ICD10: M54.5] Donna Ochoa MD, [facility] CPT-4: 55026 08/16/2015 ([id number]) 37224 EST. 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 PATIENT, LEVEL IV Diagnosis: Major depressive disorder, recurrent, mild[ICD10: F33.0] Diagnosis: Chronic pain syndrome[ICD10: G89.4] Diagnosis: Other fatigue[ICD10: R53.83] Donna Ochoa MD, [facility] CPT-4: 85672 05/01/2015 ([id number]) 09329 EST. PATIENT, LEVEL II Diagnosis: Plantar fascial fibromatosis[ICD10: M72.2] Donna Ochoa MD, [facility] CPT-4: 42181 03/26/2015 ([id number]) 19922 EST. PATIENT, LEVEL III Diagnosis: Plantar fascial fibromatosis[ICD10: M72.2] Donna Ochoa MD, [facility] CPT-4: 80710 03/13/2015 ([id number]) 23359 EST. PATIENT, LEVEL III Diagnosis: Hyperlipidemia[ICD9: 272.4] Diagnosis: ALLERGIC RHINITIS[ICD9: 477.9] Diagnosis: Chronic pain syndrome[ICD9: 338.4] Donna Ochoa MD, [facility] CPT-4: 03163 01/30/2015 ([id number]) OFFICE VISIT, NEW - LEVEL 4 Diagnosis: ESOPHAGEAL REFLUX[ICD9: 530.81] Diagnosis: Peripheral neuropathy[ICD9: 356.9] Diagnosis: Chronic pain syndrome[ICD9: 338.4] Diagnosis: OSTEOARTH NOS-UNSPEC[ICD9: 715.90] Diagnosis: DEPRESSIVE DISORDER NEC[ICD9: 311] [facility] CPT-4: 58028 10/16/2014 Plan of Care Planned Activity Notes Codes Status Date Referral: External, Ordering Provider Referral Initiated 05/27/2017 Care Plan: Referral Order SNOMED-CT : [id number] Pending 04/20/2017 Visit Plan: Anxiety - the patient has uncontrolled anxiety and will benefit from an SSRI on a daily basis to attempt control of the symptoms of anxiety (tachycardia, overwhelming sensations, stress, insomnia, etc ). I also believe that the patient will benefit from very low dose of prn benzodiazepine. Pt is aware of the risks and benefits of treatment with the above medications. Depression - uncontrolled - Pt has been counseled about the diagnosis of depression, the potential causes, and risks associated with the diagnosis. The pt denies suicidal ideation, or plans. The patient has been counseled about treatment options, and understands the risks associated with treatment of depression, as well as the risks associated with NOT treating the depression. I believe the pt will benefit from medical intervention and an antidepressant has been appropriately prescribed for this patient. CVA - pt doing follow up with specialist and is needing to find a neurologist closer to home - will refer - pt or is to notify clinic with any acute changes, questions, or concern. 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 The patient is to check blood pressure readings as an outpatient and either fax, call, or email the readings to the office next week for practitioner to review. The pt is to call for acute concerns. 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 Pt's instructed that once the liquid Keppra is gone, then start on the keppra 500mg twice daily. Depression - restart cymbalta 30mg daily. Esophageal Reflux - the patient has been counseled against excessive intake of caffeine, spicy foods, peppermint, and cinnamon - all of which can exacerbate esophageal reflux. The patient is to take medications as prescribed and call the office if the symptoms are not improving. Pt to start on pantoprazole 40mg daily x 3 months. Underweight - drink ENSURE or BOOST - one bottle twice daily. Hypertension - well controlled - continue with current medications, continue with no added salt diet. Pt has been encouraged to exercise daily. The pt has been advised to call the office if there are any acute concerns about change in blood pressure readings at home. 03/09/2017 Appointment: Marylu Ochoa WPtel: [phone] [facility] (30 min) Complex 03/09/2017 Patient Education: Patient Medication Summary Completed 03/09/2017 [facility]ointment: [id number] [place] (30 min) Complex 03/06/2017 Appointment: [facility]el[facility] (15 min) Moderate 01/08/2017 Visit Plan: Hyperlipidemia - pt has been counseled about appropriate diet, exercise, and need for low fat food choices. I have discussed the need for the patient to take medications as prescribed. If the patient has negative side effects from the medication, they are to CALL the office and not abruptly discontinue the medication without discussion with a practitioner in the office. We will check labs in 3-6 months for follow up on the patient's chronic medical problem and to assure normal liver response to medications. Chronic Pain Syndrome - pt has chronic pain - has been maintained on current medications, has not sought out other medications, only uses PRN pain medications as directed, and understands the consequences of over-medication. Chronic Depression and anxiety - the pt has symptoms of chronic anxiety and depression that have been fairly well controlled since the last office visit. The pt has expected periods of exacerbation with abatement of the symptoms with change in situational exposure. No change in current medications. 12/09/2016 Patient Education: Patient Medication Summary Completed 12/09/2016 Appointment: GabrielaJabariy [facility]Ptel[phone] [facility] (15 min) Moderate 11/11/2016 Appointment: Bereket Angelica [facility]Ptel[facility] [facility] ([facility] min) Complex 10/09/2016 Visit Plan: Hypertension - uncontrolled - the patient's medications have been modified as documented in the visit note. The patient has been counseled to cut back on salt in diet for a no added salt diet, low fat diet, start an exercise program with low weight bearing exercises and higher aerobic activity for heart health. The patient is to check blood pressure readings as an outpatient and either fax, call, or email the readings to the office next week for practitioner to review. The pt is to call for acute concerns. Add 50 mg Losartan daily for hypertension Chronic Depression and anxiety - the pt has symptoms of chronic anxiety and depression that have been fairly well controlled since the last office visit. The pt has expected periods of exacerbation with abatement of the symptoms with change in situational exposure. No change in current medications. Refill Cymbalta OA - Voltaren gel for low back pain Memory loss - 90 day supply of Aricept through [facility], refill namenda 09/08/2016 Visit Plan: Hypertension - uncontrolled - the patient's medications have been modified as documented in the visit note. The patient has been counseled to cut back on salt in diet for a no added salt diet, low fat diet, start an exercise program with low weight bearing exercises and higher aerobic activity for heart health. The patient is to check blood pressure readings as an outpatient and either fax, call, or email the readings to the office next week for practitioner to review. The pt is to call for acute concerns. Add 50 mg Losartan daily for hypertension Chronic Depression and anxiety - the pt has symptoms of chronic anxiety and depression that have been fairly well controlled since the last office visit. The pt has expected periods of exacerbation with abatement of the symptoms with change in situational exposure. No change in current medications. Refill Cymbalta OA - Voltaren gel for low back pain Memory loss - 90 day supply of Aricept through [facility], refjuan pérez Suspected sleep disordered breathing with episodes of nocturnal fits of not breathing correctly - pt advised of need for an overnight oxygen study to be done to see if there is nocturnal hypoxemia contributing to her memory loss, htn. 09/08/2016 Appointment: Marylu Ochoa WPtel: [facility] (15 min) Moderate 09/08/2016 Patient Education: Patient Medication Summary Completed 09/08/2016 Appointment: Angelica Cuba WPtel: [address] [facility] (30 min) Complex 08/19/2016 Visit Plan: Hyperlipidemia - pt has been counseled about appropriate diet, exercise, and need for low fat food choices. I have discussed the need for the patient to take medications as prescribed. If the patient has negative side effects from the medication, they are to CALL the office and not abruptly discontinue the medication without discussion with a practitioner in the office. We will check labs in 3-6 months for follow up on the patient's chronic medical problem and to assure normal liver response to medications. TIA - continue with plavix 08/11/2016 Appointment: Marylu Ochoa WPtel: [phone] [facility] (15 min) Moderate 08/11/2016 Patient Education: Patient Medication Summary Completed 08/11/2016 Visit Plan: Chronic Pain Syndrome - pt has chronic pain - has been maintained on current medications, has not sought out other medications , only uses PRN pain medications as directed, and understands the consequences of over-medication. Chronic Depression and anxiety - the pt has symptoms of chronic anxiety and depression that have been fairly well controlled since the last office visit. The pt has expected periods of exacerbation with abatement of the symptoms with change in situational exposure. No change in current medications. Cognitive impairment - Pt and are concerned memory loss is worsening - will add RX - pt is to notify clinic with any questions or concerns. 07/03/2016 Appointment: Angelica Cuba WPtel: [phone] [facility] (30 min) Complex 07/03/2016 Patient Education: Patient Medication Summary Completed 07/03/2016 Care Plan: Referral Order SNOMED-CT : [id number] Pending 07/03/2016 Visit Plan: Chronic Pain Syndrome - pt has chronic pain - has been maintained on current medications, has not sought out other medications , only uses PRN pain medications as directed, and understands the consequences of over-medication. 06/19/2016 Appointment: Donna Walden WPtel: [facility] [address] (30 min) Complex 06/19/2016 Patient Education: Patient Medication Summary Completed 06/19/2016 Appointment: Donna Walden WPtel: [facility] [address] (30 min) Complex 06/05/2016 Visit Plan: Chronic Pain Syndrome - pt has chronic pain - has been maintained on current medications, has not sought out other medications , only uses PRN pain medications as directed, and understands the consequences of over-medication. Mild cognitive impairment-discussed with Dr Arnulfo tam 02/04/2016 Appointment: Donna Walden WPtel: [address] [facility] [place] [address] (30 min) Complex 02/04/2016 Patient Education: Patient Medication Summary Completed 02/04/2016 Appointment: Donna Walden WPtel: [facility] [address] (30 min) Complex 01/14/2016 Visit Plan: Chronic Depression and anxiety - the pt has symptoms of chronic anxiety and depression that have been fairly well controlled since the last office visit. The pt has expected periods of exacerbation with abatement of the symptoms with change in situational exposure. No change in current medications. Chronic Pain Syndrome - pt has chronic pain - has been maintained on current medications, has not sought out other medications, only uses PRN pain medications as directed, and understands the consequences of over-medication. Mild Cognitive Impairment - discussed with pt and family the diagnosis, pt is not yet in category of dementia, but is in danger of approaching that level of memory loss. Treatment modalities have been discussed and pt is considering different treatment options. We will follow up with treatment at next office visit after review of testing. 01/07/2016 Appointment: Donna Walden WPtel: [facility] [address] (15 min) Moderate 01/07/2016 Patient Education: Patient Medication Summary Completed 01/07/2016 Visit Plan: Chronic Pain Syndrome - pt has chronic pain - has been maintained on current medications, has not sought out other medications , only uses PRN pain medications as directed, and understands the consequences of over-medication. Headaches-memory loss-schedule MRI brain Hyperlipidemia- check fasting labs Pjwownikaj-[id number]-xa change in medications at this time 12/17/2015 Patient Education: Patient Medication Summary Completed 12/17/2015 Appointment: Donna Walden WPtel: [facility] [address] (30 min) Complex 12/13/2015 Visit Plan: Chronic Pain Syndrome - pt has chronic pain - has been maintained on current medications, has not sought out other medications , only uses PRN pain medications as directed, and understands the consequences of over-medication. Chronic Depression and anxiety - the pt has symptoms of chronic anxiety and depression that have been fairly well controlled since the last office visit. The pt has expected periods of exacerbation with abatement of the symptoms with change in situational exposure. No change in current medications. 10/16/2015 Appointment: Donna Walden WPtel: [facility] [address] (30 min) Complex 10/16/2015 Patient Education: Patient Medication Summary Completed 10/16/2015 Visit Plan: Chronic Back pain - the patient was counseled to always first attempt to use modalities other than pain medication for alleviation of the muscle spasms and pain. The patient was also encouraged to continue with back exercises as previously directed. Pt is to use pain medication as directed. If pain medications are used inappropriately or early refills are requested, the patient understands that is a breech of trust/ contract and could result in the patient's termination from this medical practice. 08/16/2015 Patient Education: Patient Medication Summary Completed 08/16/2015 Visit Plan: Welcome to Medicare Exam - today we discussed the patients past history, immunizations, preventative exams/evaluations - colonoscopy, fecal occult blood testing, routine labs for renal function, glucose, cholesterol, osteoporosis evaluations, cardiovascular testing and cancer screenings. We have also discussed mental health and the signs/symptoms of depression. The patient was advised of home safety evaluations and the need to make sure that as the aging process continues, we need to be aware of different ways to make the home a safer place to reside. The patient has also been counseled that exercise is necessary - and of utmost importance as we age to help decrease fall risk and to maintain independece in the home. 07/06/2015 Patient Education: Patient Medication Summary Completed 07/06/2015 Visit Plan: Chronic Pain Syndrome - pt has chronic pain - has been maintained on current medications, has not sought out other medications , only uses PRN pain medications as directed, and understands the consequences of over-medication. Chronic Depression and anxiety - the pt has symptoms of chronic anxiety and depression that have been fairly well controlled since the last office visit. The pt has expected periods of exacerbation with abatement of the symptoms with change in situational exposure. No change in current medications. Arthritis- occasionally uncontrolled symptoms- recommend pt to take antiinflammatory as directed for pain control. Use tylenol for break through pain symptoms. 06/07/2015 Appointment: Marylu Ochoa WPtel: [address] [place], [place] [id number] (15 min) Moderate 06/07/2015 Patient Education: Patient Medication Summary Completed 06/07/2015 Visit Plan: Chronic Pain Syndrome - pt has chronic pain - has been maintained on current medications, has not sought out other medications , only uses PRN pain medications as directed, and understands the consequences of over-medication. Chronic Depression and anxiety - the pt has symptoms of chronic anxiety and depression that have been fairly well controlled since the last office visit. The pt has expected periods of exacerbation with abatement of the symptoms with change in situational exposure. No change in current medications. Fatigue-check labs 05/01/2015 Appointment: (15 min) Moderate 05/01/2015 Patient Education: Patient Medication Summary Completed 05/01/2015 Visit Plan: Plantar fasciitis- pt was educated that this is an inflammatory process, need to stretch the foot and reduce inflammation by using a frozen bottle of water or a tennis ball on the bottom of the foot at least three times a day until the pain is improved. Recommend supportive shoes - discussed inserts and referral to rn document improvement-patient wants to wait but will let us know if she wants to see Dr Roger. 03/26/2015 Appointment: (30 min) Complex 03/26/2015 Patient Education: Patient Medication Summary Completed 03/26/2015 Visit Plan: Plantar fasciitis- pt was educated that this is an inflammatory process, need to stretch the foot and reduce inflammation by using a frozen bottle of water or a tennis ball on the bottom of the foot at least three times a day until the pain is improved. 03/13/2015 Appointment: (30 min) Complex 03/13/2015 Patient Education: Patient Medication Summary Completed 03/13/2015 Patient Education: Plantar Fasciitis Completed 03/13/2015 Appointment: (15 min) Moderate 02/01/2015 Visit Plan: Hyperlipidemia - pt has been counseled about appropriate diet, exercise, and need for low fat food choices. I have discussed the need for the patient to take medications as prescribed. If the patient has negative side effects from the medication, they are to CALL the office and not abruptly discontinue the medication without discussion with a practitioner in the office. We will check labs in 3-6 months for follow up on the patient's chronic medical problem and to assure normal liver response to medications. Allergies - chronic - recommended pt to use allergy medication as prescribed. Pt has been counseled as to the appropriate use of the medication. Pt to call if allergy symptoms are not controlled with the medication. If using nasal spray , instructions as follows: Nasal spray- use twice daily, one spray per nostril twice daily, after 30 minutes, rinse out nose with saline spray.. Use opposite hand per nostril to spray in the nasal steroid allergy spray. 01/30/2015 Appointment: (30 min) Complex 01/30/2015 Patient Education: Patient Medication Summary Completed 01/30/2015 Patient Education: Patient Medication Summary Completed 01/26/2015 Visit Plan: Esophageal Reflux - the patient has been counseled against excessive intake of caffeine, spicy foods, peppermint, and cinnamon - all of which can exacerbate esophageal reflux. The patient is to take medications as prescribed and call the office if the symptoms are not improving. Chronic Pain Syndrome - pt has chronic pain - has been maintained on current medications, has not sought out other medications, only uses PRN pain medications as directed, and understands the consequences of over-medication. Chronic Depression and anxiety - the pt has symptoms of chronic anxiety and depression that have been fairly well controlled since the last office visit. The pt has expected periods of exacerbation with abatement of the symptoms with change in situational exposure. No change in current medications. Arthritis- occasionally uncontrolled symptoms- recommend pt to take antiinflammatory as directed for pain control. Use tylenol for break through pain symptoms. 10/16/2014 Appointment: Marylu Ochoa WPtel: [facility] [facility] [place] (S) New Patient 10/16/2014 Patient Education: Patient Medication Summary Completed 10/16/2014 Patient Education: Hypertension Completed 10/16/2014 Referral: Betsy Samuels Referral Initiated Referral: External, Ordering Provider Referral Relationship Instructions Comment . Plantar fasciitis- pt was educated that this is an inflammatory process, need to stretch the foot and reduce inflammation by using a frozen bottle of water or a tennis ball on the bottom of the foot at least three times a day until the pain is improved. Influenza vaccine today in the office . Plantar fasciitis- pt was educated that this is an inflammatory process, need to stretch the foot and reduce inflammation by using a frozen bottle of water or a tennis ball on the bottom of the foot at least three times a day until the pain is improved. Recommend supportive shoes -discussed inserts and referral to rn document improvement-patient wants to wait but will let us know if she wants to see Dr Roger. . Hyperlipidemia - pt has been counseled about appropriate diet, exercise, and need for low fat food choices. I have discussed the need for the patient to take medications as prescribed. If the patient has negative side effects from the medication, they are to CALL the office and not abruptly discontinue the medication without discussion with a practitioner in the office. We will check labs in 3-6 months for follow up on the patient's chronic medical problem and to assure normal liver response to medications. TIA - continue with plavix . Welcome to Medicare Exam - today we discussed the patients past history, immunizations, preventative exams/evaluations - colonoscopy, fecal occult blood testing, routine labs for renal function, glucose, cholesterol, osteoporosis evaluations, cardiovascular testing and cancer screenings. We have also discussed mental health and the signs/symptoms of depression. The patient was advised of home safety evaluations and the need to make sure that as the aging process continues, we need to be aware of different ways to make the home a safer place to reside. The patient has also been counseled that exercise is necessary - and of utmost importance as we age to help decrease fall risk and to maintain independece in the home. restart cymbalta 30mg daily once the liquid Keppra is gone, then start on the keppra 500mg twice daily start on pantoprazole 40mg daily x 3 months drink ENSURE or BOOST - one bottle twice daily. . 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 Pt's instructed that once the liquid Keppra is gone, then start on the keppra 500mg twice daily. Depression - restart cymbalta 30mg daily. Esophageal Reflux - the patient has been counseled against excessive intake of caffeine, spicy foods, peppermint, and cinnamon - all of which can exacerbate esophageal reflux. The patient is to take medications as prescribed and call the office if the symptoms are not improving. Pt to start on pantoprazole 40mg daily x 3 months. Underweight - drink ENSURE or BOOST - one bottle twice daily. Hypertension - well controlled - continue with current medications, continue with no added salt diet. Pt has been encouraged to exercise daily. The pt has been advised to call the office if there are any acute concerns about change in blood pressure readings at home. INCREASE SERTRALINE TO 1.5 TABLETS DAILY . Chronic Pain Syndrome - pt has chronic pain - has been maintained on current medications, has not sought out other medications, only uses PRN pain medications as directed, and understands the consequences of over-medication. Chronic Depression and anxiety - the pt has symptoms of chronic anxiety and depression that have been fairly well controlled since the last office visit. The pt has expected periods of exacerbation with abatement of the symptoms with change in situational exposure. No change in current medications. Fatigue-check labs . Chronic Pain Syndrome - pt has chronic pain - has been maintained on current medications, has not sought out other medications, only uses PRN pain medications as directed, and understands the consequences of over- medication. Chronic Depression and anxiety - the pt has symptoms of chronic anxiety and depression that have been fairly well controlled since the last office visit. The pt has expected periods of exacerbation with abatement of the symptoms with change in situational exposure. No change in current medications. MRI brain Memory testing with f/u appt . Chronic Pain Syndrome - pt has chronic pain - has been maintained on current medications, has not sought out other medications, only uses PRN pain medications as directed, and understands the consequences of over-medication. Headaches-memory loss-schedule MRI brain Hyperlipidemia-check fasting labs [id number] change in medications at this time call back to the office to let us know if you are still taking the losartan . Hyperlipidemia - pt has been counseled about appropriate diet, exercise, and need for low fat food choices. I have discussed the need for the patient to take medications as prescribed. If the patient has negative side effects from the medication, they are to CALL the office and not abruptly discontinue the medication without discussion with a practitioner in the office. We will check labs in 3-6 months for follow up on the patient's chronic medical problem and to assure normal liver response to medications. Chronic Pain Syndrome - pt has chronic pain - has been maintained on current medications, has not sought out other medications, only uses PRN pain medications as directed, and understands the consequences of over-medication. Chronic Depression and anxiety - the pt has symptoms of chronic anxiety and depression that have been fairly well controlled since the last office visit. The pt has expected periods of exacerbation with abatement of the symptoms with change in situational exposure. No change in current medications. . Esophageal Reflux - the patient has been counseled against excessive intake of caffeine, spicy foods, peppermint, and cinnamon - all of which can exacerbate esophageal reflux. The patient is to take medications as prescribed and call the office if the symptoms are not improving. Chronic Pain Syndrome - pt has chronic pain - has been maintained on current medications, has not sought out other medications, only uses PRN pain medications as directed, and understands the consequences of over-medication. Chronic Depression and anxiety - the pt has symptoms of chronic anxiety and depression that have been fairly well controlled since the last office visit. The pt has expected periods of exacerbation with abatement of the symptoms with change in situational exposure. No change in current medications. Arthritis- occasionally uncontrolled symptoms- recommend pt to take antiinflammatory as directed for pain control. Use tylenol for break through pain symptoms. mammogram order - given to patient - she is to schedule in [place] . Chronic Pain Syndrome - pt has chronic pain - has been maintained on current medications, has not sought out other medications, only uses PRN pain medications as directed, and understands the consequences of over-medication. Chronic Depression and anxiety - the pt has symptoms of chronic anxiety and depression that have been fairly well controlled since the last office visit. The pt has expected periods of exacerbation with abatement of the symptoms with change in situational exposure. No change in current medications. Arthritis- occasionally uncontrolled symptoms- recommend pt to take antiinflammatory as directed for pain control. Use tylenol for break through pain symptoms. Refill Cymbalta Voltaren gel for low back pain 90 day supply of Aricept through [facility] Add 50 mg Losartan daily for hypertension . Hypertension - uncontrolled - the patient's medications have been modified as documented in the visit note. The patient has been counseled to cut back on salt in diet for a no added salt diet, low fat diet, start an exercise program with low weight bearing exercises and higher aerobic activity for heart health. The patient is to check blood pressure readings as an outpatient and either fax , call, or email the readings to the office next week for practitioner to review. The pt is to call for acute concerns. Add 50 mg Losartan daily for hypertension Chronic Depression and anxiety - the pt has symptoms of chronic anxiety and depression that have been fairly well controlled since the last office visit. The pt has expected periods of exacerbation with abatement of the symptoms with change in situational exposure. No change in current medications. Refill Cymbalta OA - Voltaren gel for low back pain Memory loss - 90 day supply of Aricept through [facility], refill namenda Refill Cymbalta Voltaren gel for low back pain 90 day supply of Aricept through [facility] Add 50 mg Losartan daily for hypertension . Hypertension - uncontrolled - the patient's medications have been modified as documented in the visit note. The patient has been counseled to cut back on salt in diet for a no added salt diet, low fat diet, start an exercise program with low weight bearing exercises and higher aerobic activity for heart health. The patient is to check blood pressure readings as an outpatient and either fax , call, or email the readings to the office next week for practitioner to review. The pt is to call for acute concerns. Add 50 mg Losartan daily for hypertension Chronic Depression and anxiety - the pt has symptoms of chronic anxiety and depression that have been fairly well controlled since the last office visit. The pt has expected periods of exacerbation with abatement of the symptoms with change in situational exposure. No change in current medications. Refill Cymbalta OA - Voltaren gel for low back pain Memory loss - 90 day supply of Aricept through [facility], refill namenda Suspected sleep disordered breathing with episodes of nocturnal fits of not breathing correctly - pt advised of need for an overnight oxygen study to be done to see if there is nocturnal hypoxemia contributing to her memory loss, htn. FISH OIL 1000MG TWICE DAILY . Hyperlipidemia - pt has been counseled about appropriate diet, exercise, and need for low fat food choices. I have discussed the need for the patient to take medications as prescribed. If the patient has negative side effects from the medication, they are to CALL the office and not abruptly discontinue the medication without discussion with a practitioner in the office. We will check labs in 3-6 months for follow up on the patient's chronic medical problem and to assure normal liver response to medications. Allergies - chronic - recommended pt to use allergy medication as prescribed. Pt has been counseled as to the appropriate use of the medication. Pt to call if allergy symptoms are not controlled with the medication. If using nasal spray, instructions as follows: Nasal spray- use twice daily, one spray per nostril twice daily, after 30 minutes, rinse out nose with saline spray.. Use opposite hand per nostril to spray in the nasal steroid allergy spray. Start Cymbalta (duloxetine) 30mg daily and take 1/2 pill of the sertraline for 1 week, then stop the sertraline and continue the Cymbalta only. After 2 weeks on the Cymbalta we will add Aricept 5mg every night for 1 month, then increase to 10mg every night. Then we will switch to Namzaric ( combination pill of both namenda and Aricept) I will refer to Dr. Samuels. . Chronic Pain Syndrome - pt has chronic pain - has been maintained on current medications, has not sought out other medications , only uses PRN pain medications as directed, and understands the consequences of over-medication. Chronic Depression and anxiety - the pt has symptoms of chronic anxiety and depression that have been fairly well controlled since the last office visit. The pt has expected periods of exacerbation with abatement of the symptoms with change in situational exposure. No change in current medications. Cognitive impairment - Pt and are concerned memory loss is worsening - will add RX - pt is to notify clinic with any questions or concerns. Diazepam 2mg 1/2 to 1 tab twice a day as needed for agitation flu shot today will check b12 level and do b12 shot with next appointment if needed. Will make her a follow up appointment with Dr. Vo Will see about referring her to Dr. Dexter grullon [place] (neurologist) . Anxiety - the patient has uncontrolled anxiety and will benefit from an SSRI on a daily basis to attempt control of the symptoms of anxiety (tachycardia, overwhelming sensations, stress, insomnia, etc). I also believe that the patient will benefit from very low dose of prn benzodiazepine. Pt is aware of the risks and benefits of treatment with the above medications. Depression - uncontrolled - Pt has been counseled about the diagnosis of depression, the potential causes, and risks associated with the diagnosis. The pt denies suicidal ideation, or plans. The patient has been counseled about treatment options, and understands the risks associated with treatment of depression, as well as the risks associated with NOT treating the depression. I believe the pt will benefit from medical intervention and an antidepressant has been appropriately prescribed for this patient. CVA - pt doing follow up with specialist and is needing to find a neurologist closer to home - will refer - pt or is to notify clinic with any acute changes, questions, or concern. 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 The patient is to check blood pressure readings as an outpatient and either fax , call, or email the readings to the office next week for practitioner to review. The pt is to call for acute concerns. . Chronic Depression and anxiety - the pt has symptoms of chronic anxiety and depression that have been fairly well controlled since the last office visit. The pt has expected periods of exacerbation with abatement of the symptoms with change in situational exposure. No change in current medications. Chronic Pain Syndrome - pt has chronic pain - has been maintained on current medications, has not sought out other medications, only uses PRN pain medications as directed, and understands the consequences of over-medication. Mild Cognitive Impairment - discussed with pt and family the diagnosis, pt is not yet in category of dementia, but is in danger of approaching that level of memory loss. Treatment modalities have been discussed and pt is considering different treatment options. We will follow up with treatment at next office visit after review of testing. ALEVE 2 TABS TWICE DAILY WITH FOOD PHYSICAL THERAPY HEAT . Chronic Back pain - the patient was counseled to always first attempt to use modalities other than pain medication for alleviation of the muscle spasms and pain. The patient was also encouraged to continue with back exercises as previously directed. Pt is to use pain medication as directed. If pain medications are used inappropriately or early refills are requested, the patient understands that is a breech of trust/contract and could result in the patient's termination from this medical practice. Judson starter pack . Chronic Pain Syndrome - pt has chronic pain - has been maintained on current medications, has not sought out other medications, only uses PRN pain medications as directed, and understands the consequences of over-medication. Mild cognitive impairment-discussed with Dr Ochoa-Judson starter pack . Chronic Pain Syndrome - pt has chronic pain - has been maintained on current medications, has not sought out other medications, only uses PRN pain medications as directed, and understands the consequences of over- medication.
--- OUTSIDE RECORDS SUMMARY | 2017-06-28 11:17 | XMS REPORT | Continuity of Care Document ---
Author Author [facility] Organization [facility] Address Unknown Phone Unavailable Allergies Active Description Code Type Severity Reaction Onset Reported/Identified Relationship to Patient Clinical Status Yes PAULINO INHIBITOR 2 PAULINO INHIBITOR 2 Unknown HIVES 12/21/2015 Yes Penicillins [id number] Drug Allergy Unknown HIVES 12/21/2015 Medications There is no data. Problems Date Dx Coded Attending Type Code Diagnosis Diagnosed By 07/23/2009 Ot 562.10 DIVERTICULOSIS COLON (W/O MENT OF HEMORR 07/23/2009 Ot V76.51 SCREEN MAL NEOP-COLON 03/18/2012 Ot 724.4 LUMBOSACRAL NEURITIS NOS 03/18/2012 Ot V57.1 PHYSICAL THERAPY NEC 06/15/2012 Ot 722.10 LUMBAR DISC DISPLACEMENT 06/15/2012 Ot 733.00 OSTEOPOROSIS NOS 06/15/2012 Ot 733.13 PATHOLOGIC FRACTURE, VERTEBRAE 09/20/2012 CORNELIO RAMIREZ Ot 724.2 LUMBAGO 09/20/2012 CORNELIO ARMIREZ Ot 726.5 ENTHESOPATHY OF HIP 09/20/2012 CORNELIO RAMIREZ Ot V57.1 PHYSICAL THERAPY NEC 09/23/2012 ADRIANA TRIPP DO Ot 780.2 SYNCOPE AND COLLAPSE 09/23/2012 ADRIANA TRIPP DO Ot 786.59 CHEST PAIN NEC 02/14/2013 DARELL COURTNEY Ot 724.2 LUMBAGO 02/14/2013 DARELL COURTNEY Ot V45.4 ARTHRODESIS STATUS 02/14/2013 DARELL COURTNEY Ot V57.1 PHYSICAL THERAPY NEC 04/06/2014 SCOTTIE LEONARD MD Ot 780.2 05/01/2014 TREMAYNE ROMAN Ot 721.1 05/08/2014 SCOTTIE LEONARD MD Ot 780.2 06/21/2014 SCOTTIE LEONARD MD Ot 780.2 SYNCOPE AND COLLAPSE 07/10/2014 Ot 724.4 07/10/2014 Ot 724.02 07/10/2014 Ot 722.10 07/10/2014 Ot V72.63 07/10/2014 Ot V74.8 07/10/2014 DARELL OTRIZ MD Ot 722.10 07/10/2014 DARELL ORTIZ MD Ot 724.02 07/10/2014 HORACIO ELIZABETH, SCOTTIE Boggs Ot 724.5 07/10/2014 HORACIO ELIZABETH, SCOTTIE Boggs Ot 737.30 07/10/2014 HORACIO ELIZABETH, SCOTTIE Boggs Ot 780.2 07/10/2014 TREMAYNE ROMAN A Ot 721.1 07/10/2014 SCOTTIE LEONARD MD Ot 780.2 09/07/2014 Ot 724.4 09/07/2014 Ot 724.02 09/07/2014 Ot 722.10 09/07/2014 Ot V72.63 09/07/2014 Ot V74.8 09/07/2014 DARELL ORTIZ MD Ot 722.10 09/07/2014 DARELL ORTIZ MD Ot 724.02 09/07/2014 HORACIO ELIZABETH, SCOTTIE Boggs Ot 724.5 09/07/2014 HORACIO ELIZABETH, SCOTTIE Boggs Ot 737.30 09/07/2014 SCOTTIE LEONARD MD Ot 780.2 09/07/2014 TREMAYNE ROMAN A Ot 721.1 09/07/2014 SCOTTIE LEONARD MD Ot 780.2 12/20/2014 JASBIR OSBORN Ot 721.1 12/20/2014 JASBIR OSBORN Ot 733.00 12/20/2014 JASBIR OSBORN Ot V49.81 03/14/2015 ALEXUS ELIZABETH, ZULEYMA Freeman Ot M79.671 03/22/2015 ZULEYMA VAUGHAN MD Ot M79.671 05/27/2015 Ot 724.4 05/27/2015 Ot 724.02 05/27/2015 Ot 722.10 05/27/2015 Ot V72.63 05/27/2015 Ot V74.8 05/27/2015 DARELL ORTIZ MD Ot 722.10 05/27/2015 DARELL ORTIZ MD Ot 724.02 05/27/2015 SCOTTIE LEONARD MD Ot 724.5 05/27/2015 HORACIO ELIZABETH, SCOTTIE Boggs Ot 737.30 05/27/2015 SCOTTIE LEONARD MD Ot 780.2 05/27/2015 TREMAYNE ROMAN Ot 721.1 05/27/2015 SCOTTIE LEONARD MD Ot 780.2 05/27/2015 JASBIR OSBORN Ot 721.1 05/27/2015 JASBIR OSBORN Ot 733.00 05/27/2015 JASBIR OSBORN Ot V49.81 05/27/2015 ZULEYMA VAUGHAN MD Ot M79.671 09/05/2015 Ot 724.4 LUMBOSACRAL NEURITIS NOS 09/05/2015 Ot 724.02 SPINAL STENOSIS, LUMBAR REG, W/OUT NEURO 09/05/2015 Ot 722.10 LUMBAR DISC DISPLACEMENT 09/05/2015 Ot V72.63 PRE- PROCEDURAL LABORATORY EXAMINATION 09/05/2015 Ot V74.8 SCREEN- BACTERIAL DIS NEC 09/05/2015 DIANA ELIZABETH, DARELL Queen Ot 722.10 LUMBAR DISC DISPLACEMENT 09/05/2015 DARELL ORTIZ MD Ot 724.02 SPINAL STENOSIS, LUMBAR REG, W/OUT NEURO 09/05/2015 HORACIO ELIZABETH, SCOTTIE Boggs Ot 724.5 BACKACHE NOS 09/05/2015 SCOTTIE LEONARD MD Ot 737.30 IDIOPATHIC SCOLIOSIS 09/05/2015 SCOTTIE LEONARD MD Ot 780.2 SYNCOPE AND COLLAPSE 09/05/2015 TREMAYEN ROMAN Ot 721.1 CERV SPONDYL W MYELOPATH 09/05/2015 SCOTTIE LEONARD MD Ot 780.2 SYNCOPE AND COLLAPSE 09/05/2015 JASBIR OSBORN Ot 721.1 CERV SPONDYL W MYELOPATH 09/05/2015 JASBIR OSBORN Ot 733.00 OSTEOPOROSIS NOS 09/05/2015 JASBIR OSBORN Ot V49.81 ASYMPT POSTMENOPAUSAL STATUS (AGE-RELATE 09/05/2015 ZULEYMA VAUGHAN MD Ot M79.671 PAIN IN RIGHT FOOT 09/10/2015 Ot 724.4 LUMBOSACRAL NEURITIS NOS 09/10/2015 Ot 724.02 SPINAL STENOSIS, LUMBAR REG, W/OUT NEURO 09/10/2015 Ot 722.10 LUMBAR DISC DISPLACEMENT 09/10/2015 Ot V72.63 PRE- PROCEDURAL LABORATORY EXAMINATION 09/10/2015 Ot V74.8 SCREEN- BACTERIAL DIS NEC 09/10/2015 DARELL ORTIZ MD Ot 722.10 LUMBAR DISC DISPLACEMENT 09/10/2015 DARELL ORTIZ MD Ot 724.02 SPINAL STENOSIS, LUMBAR REG, W/OUT NEURO 09/10/2015 SCOTTIE LEONARD MD Ot 724.5 BACKACHE NOS 09/10/2015 SCOTTIE LEONARD MD Ot 737.30 IDIOPATHIC SCOLIOSIS 09/10/2015 SCOTTIE LEONARD MD Ot 780.2 SYNCOPE AND COLLAPSE 09/10/2015 TREMAYNE ROMAN Ot 721.1 CERV SPONDYL W MYELOPATH 09/10/2015 SCOTTIE LEONARD MD Ot 780.2 SYNCOPE AND COLLAPSE 09/10/2015 JASBIR OSBORN Ot 721.1 CERV SPONDYL W MYELOPATH 09/10/2015 JASBIR OSBORN Ot 733.00 OSTEOPOROSIS NOS 09/10/2015 JASBIR OSBORN Ot V49.81 ASYMPT POSTMENOPAUSAL STATUS (AGE-RELATE 09/10/2015 ALEXUS ELIZABETH, ZULEYMA A Ot M79.671 PAIN IN RIGHT FOOT 09/10/2015 JYOTI ELIZABETH, CRISTY Starr Ot M53.3 SACROCOCCYGEAL DISORDERS, NOT ELSEWHERE 09/10/2015 CRISTY MONTES MD Ot Z79.899 OTHER HALF-WAY (CURRENT) DRUG THERAPY 09/17/2015 Ot 724.4 LUMBOSACRAL NEURITIS NOS 09/17/2015 Ot 724.02 SPINAL STENOSIS, LUMBAR REG, W/OUT NEURO 09/17/2015 Ot 722.10 LUMBAR DISC DISPLACEMENT 09/17/2015 Ot V72.63 PRE- PROCEDURAL LABORATORY EXAMINATION 09/17/2015 Ot V74.8 SCREEN- BACTERIAL DIS NEC 09/17/2015 DARELL ORTIZ MD Ot 722.10 LUMBAR DISC DISPLACEMENT 09/17/2015 DARELL ORTIZ MD Ot 724.02 SPINAL STENOSIS, LUMBAR REG, W/OUT NEURO 09/17/2015 SCOTTIE LEONARD MD Ot 724.5 BACKACHE NOS 09/17/2015 SCOTTIE LEONARD MD Ot 737.30 IDIOPATHIC SCOLIOSIS 09/17/2015 SCOTTIE LEONARD MD Ot 780.2 SYNCOPE AND COLLAPSE 09/17/2015 TREMAYNE ROMAN Ot 721.1 CERV SPONDYL W MYELOPATH 09/17/2015 SCOTTIE LEONARD MD Ot 780.2 SYNCOPE AND COLLAPSE 09/17/2015 JASBIR OSBORN Ot 721.1 CERV SPONDYL W MYELOPATH 09/17/2015 JASBIR OSBORN Ot 733.00 OSTEOPOROSIS NOS 09/17/2015 JASBIR OSBORN Ot V49.81 ASYMPT POSTMENOPAUSAL STATUS (AGE-RELATE 09/17/2015 ALEXUS ELIZABETH, ZULEYMA Freeman Ot M79.671 PAIN IN RIGHT FOOT 09/18/2015 JYOTI ELIZABETH, CRISTY Starr Ot M53.3 SACROCOCCYGEAL DISORDERS, NOT ELSEWHERE 09/18/2015 CRISTY MONTES MD Ot Z79.899 OTHER HALF-WAY (CURRENT) DRUG THERAPY 12/21/2015 SCOTTIE LEONARD MD Ot 780.2 SYNCOPE AND COLLAPSE 12/24/2015 TRACE CUEVAS Ot R41.3 OTHER AMNESIA 12/24/2015 TRACE CUEVAS Ot R51 HEADACHE 01/02/2016 Ot 724.4 LUMBOSACRAL NEURITIS NOS 01/02/2016 Ot 724.02 SPINAL STENOSIS, LUMBAR REG, W/OUT NEURO 01/02/2016 Ot 722.10 LUMBAR DISC DISPLACEMENT 01/02/2016 Ot V72.63 PRE- PROCEDURAL LABORATORY EXAMINATION 01/02/2016 Ot V74.8 SCREEN- BACTERIAL DIS NEC 01/02/2016 DARELL ORTIZ MD Ot 722.10 LUMBAR DISC DISPLACEMENT 01/02/2016 DARELL ORTIZ MD Ot 724.02 SPINAL STENOSIS, LUMBAR REG, W/OUT NEURO 01/02/2016 SCOTTIE LEONARD MD Ot 724.5 BACKACHE NOS 01/02/2016 SCOTTIE LEONARD MD Ot 737.30 IDIOPATHIC SCOLIOSIS 01/02/2016 SCOTTIE LEONARD MD Ot 780.2 SYNCOPE AND COLLAPSE 01/02/2016 TREMAYNE ROMAN Ot 721.1 CERV SPONDYL W MYELOPATH 01/02/2016 SCOTTIE LEONARD MD Ot 780.2 SYNCOPE AND COLLAPSE 01/02/2016 JASBIR OSBORN Ot 721.1 CERV SPONDYL W MYELOPATH 01/02/2016 JASBIR OSBORN Ot 733.00 OSTEOPOROSIS NOS 01/02/2016 JASBIR OSBORN Ot V49.81 ASYMPT POSTMENOPAUSAL STATUS (AGE-RELATE 01/02/2016 ALEXUS ELIZABETH, ZULEYMA Freeman Ot M79.671 PAIN IN RIGHT FOOT 01/02/2016 TRACE CUEVAS DOPE WORKER Ot R41.3 OTHER AMNESIA 01/02/2016 MASON TRACE M DOPE WORKER Ot R51 HEADACHE 01/09/2016 Ot 724.4 LUMBOSACRAL NEURITIS NOS 01/09/2016 Ot 724.02 SPINAL STENOSIS, LUMBAR REG, W/OUT NEURO 01/09/2016 Ot 722.10 LUMBAR DISC DISPLACEMENT 01/09/2016 Ot V72.63 PRE- PROCEDURAL LABORATORY EXAMINATION 01/09/2016 Ot V74.8 SCREEN- BACTERIAL DIS NEC 01/09/2016 DIANA ELIZABETH, DARELL Queen Ot 722.10 LUMBAR DISC DISPLACEMENT 01/09/2016 DARELL ORTIZ MD Ot 724.02 SPINAL STENOSIS, LUMBAR REG, W/OUT NEURO 01/09/2016 HORACIO ELIZABETH, SCOTTIE Boggs Ot 724.5 BACKACHE NOS 01/09/2016 SCOTTIE LEONARD MD Ot 737.30 IDIOPATHIC SCOLIOSIS 01/09/2016 SCOTTIE LEONARD MD Ot 780.2 SYNCOPE AND COLLAPSE 01/09/2016 TREMAYNE ROMAN Ot 721.1 CERV SPONDYL W MYELOPATH 01/09/2016 SCOTTIE LEONARD MD Ot 780.2 SYNCOPE AND COLLAPSE 01/09/2016 JASBIR OSBORN Ot 721.1 CERV SPONDYL W MYELOPATH 01/09/2016 JASBIR OSBORN Ot 733.00 OSTEOPOROSIS NOS 01/09/2016 JASBIR OSBORN Ot V49.81 ASYMPT POSTMENOPAUSAL STATUS (AGE-RELATE 01/09/2016 ZULEYMA VAUGHAN MD Ot M79.671 PAIN IN RIGHT FOOT 01/09/2016 TRACE CUEVASP Ot R41.3 OTHER AMNESIA 01/09/2016 TRACE CUEVAS DOPE WORKER Ot R51 HEADACHE 01/09/2016 BLANCA PICKENS APRN Ot 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 01/10/2016 Ot 724.4 LUMBOSACRAL NEURITIS NOS 01/10/2016 Ot 724.02 SPINAL STENOSIS, LUMBAR REG, W/OUT NEURO 01/10/2016 Ot 722.10 LUMBAR DISC DISPLACEMENT 01/10/2016 Ot V72.63 PRE- PROCEDURAL LABORATORY EXAMINATION 01/10/2016 Ot V74.8 SCREEN- BACTERIAL DIS NEC 01/10/2016 DIANA ELIZABETH, DARELL Queen Ot 722.10 LUMBAR DISC DISPLACEMENT 01/10/2016 DIANA ELIZABETH, DARELL Queen Ot 724.02 SPINAL STENOSIS, LUMBAR REG, W/OUT NEURO 01/10/2016 HORACIO ELIZABETH, SCOTTIE Boggs Ot 724.5 BACKACHE NOS 01/10/2016 HORACIO ELIZABETH, SCOTTIE Boggs Ot 737.30 IDIOPATHIC SCOLIOSIS 01/10/2016 HORACIO ELIZABETH, SCOTTIE Boggs Ot 780.2 SYNCOPE AND COLLAPSE 01/10/2016 TREMAYNE ROMAN Ot 721.1 CERV SPONDYL W MYELOPATH 01/10/2016 HORACIO ELIZABETH, CSOTTIE Boggs Ot 780.2 SYNCOPE AND COLLAPSE 01/10/2016 JASBIR OSBORN Ot 721.1 CERV SPONDYL W MYELOPATH 01/10/2016 JASBIR OSBORN Ot 733.00 OSTEOPOROSIS NOS 01/10/2016 JASBIR OSBORN Ot V49.81 ASYMPT POSTMENOPAUSAL STATUS (AGE-RELATE 01/10/2016 ALEXUS ELIZABETH, ZULEYMA Freeman Ot M79.671 PAIN IN RIGHT FOOT 01/10/2016 TRACE CUEVAS DOPE WORKER Ot R41.3 OTHER AMNESIA 01/10/2016 TRACE CUEVAS DOPE WORKER Ot R51 HEADACHE 01/10/2016 BLANCA PICKENS ASSISTANT SPA DIRECTOR Ot 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 01/10/2016 BLANCA PICKENS ASSISTANT SPA DIRECTOR Ot 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 01/11/2016 TRACE CUEVAS DOPE WORKER Ot R41.3 OTHER AMNESIA 01/11/2016 TRACE CUEVAS DOPE WORKER Ot R51 HEADACHE 01/17/2016 TRACE CUEVAS DOPE WORKER Ot R41.3 OTHER AMNESIA 01/17/2016 TRACE CUEVAS DOPE WORKER Ot R51 HEADACHE 01/22/2016 Ot 724.4 LUMBOSACRAL NEURITIS NOS 01/22/2016 Ot 724.02 SPINAL STENOSIS, LUMBAR REG, W/OUT NEURO 01/22/2016 Ot 722.10 LUMBAR DISC DISPLACEMENT 01/22/2016 Ot V72.63 PRE- PROCEDURAL LABORATORY EXAMINATION 01/22/2016 Ot V74.8 SCREEN- BACTERIAL DIS NEC 01/22/2016 DIANA ELIZABETH, DARELL Queen Ot 722.10 LUMBAR DISC DISPLACEMENT 01/22/2016 DIANA ELIZABETH, DARELL Queen Ot 724.02 SPINAL STENOSIS, LUMBAR REG, W/OUT NEURO 01/22/2016 HORACIO ELIZABETH, SCOTTIE Boggs Ot 724.5 BACKACHE NOS 01/22/2016 HORACIO ELIZABETH, SCOTTIE Boggs Ot 737.30 IDIOPATHIC SCOLIOSIS 01/22/2016 HORACIO ELIZABETH, SCOTTIE Boggs Ot 780.2 SYNCOPE AND COLLAPSE 01/22/2016 TREMAYNE ROMAN Ot 721.1 CERV SPONDYL W MYELOPATH 01/22/2016 SCOTTIE LEONARD MD Ot 780.2 SYNCOPE AND COLLAPSE 01/22/2016 JASBIR OSBORN Ot 721.1 CERV SPONDYL W MYELOPATH 01/22/2016 JASBIR OSBORN Ot 733.00 OSTEOPOROSIS NOS 01/22/2016 MARIE MART, JASBIR Queen Ot V49.81 ASYMPT POSTMENOPAUSAL STATUS (AGE-RELATE 01/22/2016 ALEXUS ELIZABETH, ZULEYMA Freeman Ot M79.671 PAIN IN RIGHT FOOT 01/22/2016 TRACE CUEVAS DOPE WORKER Ot R41.3 OTHER AMNESIA 01/22/2016 TRACE CUEVAS DOPE WORKER Ot R51 HEADACHE 01/22/2016 BLANCA PICKENS APRN Ot 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 01/30/2016 BLANCA PICKENS APRN Ot 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 02/01/2016 MAYUR ELIZABETH FACC, LUIS FERNANDO FACP CCDS Ot R06.02 SHORTNESS OF BREATH 02/01/2016 MAYUR ELIZABETH FACC, LUIS FERNANDO FACP CCDS Ot R06.02 SHORTNESS OF BREATH 02/04/2016 MAYUR ELIZABETH FACC, ALI FACP CCDS Ot R06.02 SHORTNESS OF BREATH 02/06/2016 BLANCA PICKENS APRN Ot 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 02/22/2016 MAYUR ELIZABETH FACC, LUIS FERNANDO FACP CCDS Ot E78.0 PURE HYPERCHOLESTEROLEMIA 02/22/2016 MAYUR ELIZABETH FACC, ALI FACP CCDS Ot I10 ESSENTIAL (PRIMARY) HYPERTENSION 02/22/2016 MAYUR ELIZABETH FACC, ALI FACP CCDS Ot 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 02/22/2016 MAYUR ELIZABETH [facility], ALI FACP CCDS Ot R06.02 SHORTNESS OF BREATH 02/22/2016 MAYUR ELIZABETH [facility], ALI FACP CCDS Ot R73.01 IMPAIRED FASTING GLUCOSE 03/12/2016 MAYUR ELIZABETH [facility], ALI FACP CCDS Ot E78.0 PURE HYPERCHOLESTEROLEMIA 03/12/2016 MAYUR ELIZABETH [facility], ALI FACP CCDS Ot I10 ESSENTIAL (PRIMARY) HYPERTENSION 03/12/2016 MAYUR ELIZABETH [facility], ALI FACP CCDS Ot 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 03/12/2016 MAYUR ELIZABETH [facility], ALI FACP CCDS Ot R06.02 SHORTNESS OF BREATH 03/12/2016 MAYUR ELIZABETH [facility], ALI FACP CCDS Ot R73.01 IMPAIRED FASTING GLUCOSE 07/15/2016 BLANCA PICKENS ASSISTANT SPA DIRECTOR Ot M54.5 LOW BACK PAIN 07/15/2016 BLANCA PICKENS ASSISTANT SPA DIRECTOR Ot Z98.1 ARTHRODESIS STATUS 07/17/2016 BLANCA PICKENS APRN Ot M54.5 LOW BACK PAIN 07/17/2016 BLANCA PICKENS ASSISTANT SPA DIRECTOR Ot Z98.1 ARTHRODESIS STATUS 08/04/2016 QASIM VELASCO ADRIANA K Ot E11.9 TYPE 2 DIABETES MELLITUS WITHOUT COMPLIC 08/04/2016 DIANE TRIPP DOA K Ot F03.90 UNSPECIFIED DEMENTIA WITHOUT BEHAVIORAL 08/04/2016 DIANE TRIPP DOA K Ot G45.9 TRANSIENT CEREBRAL ISCHEMIC ATTACK, UNSP 08/04/2016 DIANE TRIPP DOA K Ot R47.81 SLURRED SPEECH 08/04/2016 DIANE TRIPP DOA K Ot Z79.82 HALF-WAY (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 ASPIRIN 08/04/2016 DIANE TRIPP DOA K Ot Z79.899 OTHER KETTLE GIRL (CURRENT) DRUG THERAPY 08/05/2016 BLANCA PICKENS ASSISTANT SPA DIRECTOR Ot M54.5 LOW BACK PAIN 08/05/2016 BLANCA PICKENS ASSISTANT SPA DIRECTOR Ot Z98.1 ARTHRODESIS STATUS 08/13/2016 BLANCA PICKENS ASSISTANT SPA DIRECTOR Ot M54.5 LOW BACK PAIN 08/13/2016 BLANCA PICKENS ASSISTANT SPA DIRECTOR Ot Z98.1 ARTHRODESIS STATUS 08/20/2016 ZULEYMA VAUGHAN MD Ot I10 ESSENTIAL (PRIMARY) HYPERTENSION 08/20/2016 ALEXUS MD, ZULEYMA A Ot Z86.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 (TIA), AND CEREB INFRC W 09/17/2016 ZULEYMA VAUGHAN MD Ot I10 ESSENTIAL (PRIMARY) HYPERTENSION 09/17/2016 ZULEYMA VAUGHAN MD Ot Z86.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 (TIA), AND CEREB INFRC W 10/03/2016 ZULEYMA VAUGHAN MD Ot I10 ESSENTIAL (PRIMARY) HYPERTENSION 10/03/2016 ZULEYMA VAUGHAN MD Ot Z86.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 (TIA), AND CEREB INFRC W 12/22/2016 SANTA BARNES MD, Ot E11.9 TYPE 2 DIABETES MELLITUS WITHOUT COMPLIC 12/22/2016 SANTA BARNES MD, Ot F03.90 UNSPECIFIED DEMENTIA WITHOUT BEHAVIORAL 12/22/2016 SANTA BARNES MD, Ot F32.9 MAJOR DEPRESSIVE DISORDER, SINGLE EPISOD 12/22/2016 SANTA BARNES MD, Ot I62.9 NONTRAUMATIC INTRACRANIAL HEMORRHAGE, UN 12/22/2016 SANTA BARNES MD, Ot J45.909 UNSPECIFIED ASTHMA, UNCOMPLICATED 12/22/2016 SANTA BARNES MD, Ot M81.0 AGE-RELATED OSTEOPOROSIS W/O CURRENT PAT 12/22/2016 SANTA BARNES MD, Ot R29.898 OTH SYMPTOMS AND SIGNS INVOLVING THE MUS 12/22/2016 SANTA BARNES MD Ot Z79.82 KETTLE GIRL (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 ASPIRIN 12/22/2016 SANTA BARNES MD, Ot Z86.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 (TIA), AND CEREB INFRC W 12/22/2016 SANTA BARNES MD Ot Z90.710 ACQUIRED ABSENCE OF BOTH CERVIX AND UTER 12/22/2016 SANTA BARNES MD Ot Z90.89 ACQUIRED ABSENCE OF OTHER ORGANS 12/24/2016 SANTA BARNES MD, Ot E11.9 TYPE 2 DIABETES MELLITUS WITHOUT COMPLIC 12/24/2016 SANTA BARNES MD Ot F03.90 UNSPECIFIED DEMENTIA WITHOUT BEHAVIORAL 12/24/2016 SANTA BARNES MD, Ot F32.9 MAJOR DEPRESSIVE DISORDER, SINGLE EPISOD 12/24/2016 SANTA BARNES MD Ot I62.9 NONTRAUMATIC INTRACRANIAL HEMORRHAGE, UN 12/24/2016 SANTA BARNES MD, Ot J45.909 UNSPECIFIED ASTHMA, UNCOMPLICATED 12/24/2016 SANTA BARNES MD, Ot M81.0 AGE-RELATED OSTEOPOROSIS W/O CURRENT PAT 12/24/2016 SANTA BARNES MD, Ot R29.898 OTH SYMPTOMS AND SIGNS INVOLVING THE MUS 12/24/2016 SANTA BARNES MD, Ot Z79.82 HALF-WAY (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 ASPIRIN 12/24/2016 SANTA BARNES MD, Ot Z86.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 (TIA), AND CEREB INFRC W 12/24/2016 SANTA BARNES MD, Ot Z90.710 ACQUIRED ABSENCE OF BOTH CERVIX AND UTER 12/24/2016 SANTA BARNES MD, Ot Z90.89 ACQUIRED ABSENCE OF OTHER ORGANS 12/28/2016 SANTA BARNES MD Ot E11.9 TYPE 2 DIABETES MELLITUS WITHOUT COMPLIC 12/28/2016 SANTA BARNES MD, Ot F03.90 UNSPECIFIED DEMENTIA WITHOUT BEHAVIORAL 12/28/2016 SANTA BARNES MD, Ot F32.9 MAJOR DEPRESSIVE DISORDER, SINGLE EPISOD 12/28/2016 SANTA BARNES MD, Ot I62.9 NONTRAUMATIC INTRACRANIAL HEMORRHAGE, UN 12/28/2016 SANTA BARNES MD, Ot J45.909 UNSPECIFIED ASTHMA, UNCOMPLICATED 12/28/2016 SANTA BARNES MD, Ot M81.0 AGE-RELATED OSTEOPOROSIS W/O CURRENT PAT 12/28/2016 SANTA BARNES MD, Ot R29.898 OTH SYMPTOMS AND SIGNS INVOLVING THE MUS 12/28/2016 SANTA BARNES MD, Ot Z79.82 HALF-WAY (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 ASPIRIN 12/28/2016 SANTA BARNES MD, Ot Z86.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 (TIA), AND CEREB INFRC W 12/28/2016 SANTA ABRNES MD Ot Z90.710 ACQUIRED ABSENCE OF BOTH CERVIX AND UTER 12/28/2016 SANTA BARNES MD Ot Z90.89 ACQUIRED ABSENCE OF OTHER ORGANS 03/02/2017 REN CASTRO Ot E11.9 TYPE 2 DIABETES MELLITUS WITHOUT COMPLIC 03/02/2017 REN CASTRO Ot F03.90 UNSPECIFIED DEMENTIA WITHOUT BEHAVIORAL 03/02/2017 REN CASTRO Ot F32.9 MAJOR DEPRESSIVE DISORDER, SINGLE EPISOD 03/02/2017 REN CASTRO Ot J45.909 UNSPECIFIED ASTHMA, UNCOMPLICATED 03/02/2017 REN CASTRO Ot M81.0 AGE-RELATED OSTEOPOROSIS W/O CURRENT PAT 03/02/2017 REN CASTRO Ot 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 03/02/2017 REN CASTRO Ot Z79.01 HALF-WAY (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 ANTICOAGULANT 03/02/2017 REN CASTRO Ot Z86.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 (TIA), AND CEREB INFRC W 03/02/2017 REN CASTRO Ot Z90.710 ACQUIRED ABSENCE OF BOTH CERVIX AND UTER 03/02/2017 REN CASTRO Ot Z90.89 ACQUIRED ABSENCE OF OTHER ORGANS 03/03/2017 BOUCHRA TONG APRN Ot K94.23 GASTROSTOMY MALFUNCTION 03/04/2017 REN CASTRO Ot E11.9 TYPE 2 DIABETES MELLITUS WITHOUT COMPLIC 03/04/2017 REN CASTRO Ot F32.9 MAJOR DEPRESSIVE DISORDER, SINGLE EPISOD 03/04/2017 REN CASTRO Ot J45.909 UNSPECIFIED ASTHMA, UNCOMPLICATED 03/04/2017 REN CASTRO Ot M81.0 AGE-RELATED OSTEOPOROSIS W/O CURRENT PAT 03/04/2017 REN ACSTRO Ot 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 03/04/2017 REN CASTRO Ot Z86.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 (TIA), AND CEREB INFRC W 03/04/2017 REN CASTRO Ot Z90.710 ACQUIRED ABSENCE OF BOTH CERVIX AND UTER 03/04/2017 REN CASTRO Ot Z90.89 ACQUIRED ABSENCE OF OTHER ORGANS 03/09/2017 SANTA BARNES MD Ot E11.9 TYPE 2 DIABETES MELLITUS WITHOUT COMPLIC 03/09/2017 SANTA BARNES MD Ot F03.90 UNSPECIFIED DEMENTIA WITHOUT BEHAVIORAL 03/09/2017 SANTA BARNES MD Ot F32.9 MAJOR DEPRESSIVE DISORDER, SINGLE EPISOD 03/09/2017 SANTA BARNES MD Ot I62.9 NONTRAUMATIC INTRACRANIAL HEMORRHAGE, UN 03/09/2017 SANTA BARNES MD, Ot J45.909 UNSPECIFIED ASTHMA, UNCOMPLICATED 03/09/2017 SANTA BARNES MD, Ot M81.0 AGE-RELATED OSTEOPOROSIS W/O CURRENT PAT 03/09/2017 SANTA BARNES MD Ot R29.898 OTH SYMPTOMS AND SIGNS INVOLVING THE MUS 03/09/2017 SANTA BARNES MD Ot Z79.82 KETTLE GIRL (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 ASPIRIN 03/09/2017 SANTA BARNES MD Ot Z86.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 (TIA), AND CEREB INFRC W 03/09/2017 SANTA BARNES MD Ot Z90.710 ACQUIRED ABSENCE OF BOTH CERVIX AND UTER 03/09/2017 SANTA BARNES MD Ot Z90.89 ACQUIRED ABSENCE OF OTHER ORGANS 03/17/2017 REN CASTRO Ot E11.9 TYPE 2 DIABETES MELLITUS WITHOUT COMPLIC 03/17/2017 REN CASTRO Ot F03.90 UNSPECIFIED DEMENTIA WITHOUT BEHAVIORAL 03/17/2017 REN CASTRO Ot F32.9 MAJOR DEPRESSIVE DISORDER, SINGLE EPISOD 03/17/2017 REN CASTRO Ot J45.909 UNSPECIFIED ASTHMA, UNCOMPLICATED 03/17/2017 REN CASTRO Ot M81.0 AGE-RELATED OSTEOPOROSIS W/O CURRENT PAT 03/17/2017 REN CASTRO Ot 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 03/17/2017 REN CASTRO Ot Z79.01 HALF-WAY (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 ANTICOAGULANT 03/17/2017 REN CASTRO Ot Z86.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 (TIA), AND CEREB INFRC W 03/17/2017 REN CASTRO Ot Z90.710 ACQUIRED ABSENCE OF BOTH CERVIX AND UTER 03/17/2017 REN CASTRO Ot Z90.89 ACQUIRED ABSENCE OF OTHER ORGANS 06/10/2017 Ot 724.4 LUMBOSACRAL NEURITIS NOS 06/10/2017 Ot 724.02 SPINAL STENOSIS, LUMBAR REG, W/OUT NEURO 06/10/2017 Ot 722.10 LUMBAR DISC DISPLACEMENT 06/10/2017 Ot V72.63 PRE- PROCEDURAL LABORATORY EXAMINATION 06/10/2017 Ot V74.8 SCREEN- BACTERIAL DIS NEC 06/10/2017 DIANA ELIZABETH, DARELL Queen Ot 722.10 LUMBAR DISC DISPLACEMENT 06/10/2017 DIANA ELIZABETH, DARELL Queen Ot 724.02 SPINAL STENOSIS, LUMBAR REG, W/OUT NEURO 06/10/2017 HORACIO ELIZABETH, SCOTTIE Boggs Ot 724.5 BACKACHE NOS 06/10/2017 HORACIO ELIZABETH, SCOTTIE Boggs Ot 737.30 IDIOPATHIC SCOLIOSIS 06/10/2017 HORACIO ELIZABETH, SCOTTIE Boggs Ot 780.2 SYNCOPE AND COLLAPSE 06/10/2017 FAZAL PA, TREMAYNE Freeman Ot 721.1 CERV SPONDYL W MYELOPATH 06/10/2017 HORACIO ELIZABETH, SCOTTIE Boggs Ot 780.2 SYNCOPE AND COLLAPSE 06/10/2017 MARIE MART, JASBIR Queen Ot 721.1 CERV SPONDYL W MYELOPATH 06/10/2017 MARIE MART, JASBIR Queen Ot 733.00 OSTEOPOROSIS NOS 06/10/2017 MARIE MART, JASBIR Queen Ot V49.81 ASYMPT POSTMENOPAUSAL STATUS (AGE-RELATE 06/10/2017 ALEXUS ELIZABETH, ZULEYMA Freeman Ot M79.671 PAIN IN RIGHT FOOT 06/10/2017 TRACE CUEVAS DOPE WORKER Ot R41.3 OTHER AMNESIA 06/10/2017 TRACE CUEVAS DOPE WORKER Ot R51 HEADACHE 06/10/2017 BLANCA PICKENS APRN Ot 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 06/10/2017 MAYUR ELIZABETH FACSarah, ALI FACP CCDS Ot E78.0 PURE HYPERCHOLESTEROLEMIA 06/10/2017 MAYUR ELIZABETH FACC, ALI FACP CCDS Ot I10 ESSENTIAL (PRIMARY) HYPERTENSION 06/10/2017 MAYUR ELIZABETH FACC, ALI FACP CCDS Ot 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 06/10/2017 MAYUR ELIZABETH FACC, ALI FACP CCDS Ot R06.02 SHORTNESS OF BREATH 06/10/2017 MAYUR ELIZABETH FACC, ALI FACP CCDS Ot R73.01 IMPAIRED FASTING GLUCOSE 06/10/2017 BLANCA PICKENS ASSISTANT SPA DIRECTOR Ot M54.5 LOW BACK PAIN 06/10/2017 BLANCA PICKENS ASSISTANT SPA DIRECTOR Ot Z98.1 ARTHRODESIS STATUS 06/10/2017 ZULEYMA VAUGHAN MD Ot I10 ESSENTIAL (PRIMARY) HYPERTENSION 06/10/2017 ALEXUS ELIZABETH, ZULEYMA Freeman Ot Z86.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 (TIA), AND CEREB INFRC W Procedures Code Description Performed By Performed On 80.51 EXCISION INTERVERT DISC 06/14/2012 81.66 PERCUTANEOUS VERTEBRAL AUGMENTATION 06/14/2012 Results Test Result Range Complete blood count (CBC) with automated white blood cell (WBC) differential - 08/04/16 10:46 Blood leukocytes automated count (number/volume) 6.2 10*3/uL 4.3-11.0 Blood erythrocytes automated count (number/volume) 4.39 10*6/uL 4.35-5.85 Venous blood hemoglobin measurement (mass/volume) 13.2 g/dL 11.5-16.0 Blood hematocrit (volume fraction) 38 % 35-52 Automated erythrocyte mean corpuscular volume 88 [foz_us] 80-99 Automated erythrocyte mean corpuscular hemoglobin (mass per erythrocyte) 30 pg 25-34 Automated erythrocyte mean corpuscular hemoglobin concentration measurement ( mass/volume) 34 g/dL 32-36 Automated erythrocyte distribution width ratio 14.9 % 10.0-14.5 Automated blood platelet count (count/volume) 213 10*3/uL 130-400 Automated blood platelet mean volume measurement 9.8 [foz_us] 7.4-10.4 Automated blood neutrophils/100 leukocytes 62 % 42-75 Automated blood lymphocytes/100 leukocytes 29 % 12-44 Blood monocytes/100 leukocytes 7 % 0-12 Automated blood eosinophils/100 leukocytes 1 % 0-10 Automated blood basophils/100 leukocytes 1 % 0-10 Blood neutrophils automated count (number/volume) 3.8 10*3 1.8-7.8 Blood lymphocytes automated count (number/volume) 1.8 10*3 1.0-4.0 Blood monocytes automated count (number/volume) 0.5 10*3 0.0-1.0 Automated eosinophil count 0.1 10*3/uL 0.0-0.3 Automated blood basophil count (count/volume) 0.0 10*3/uL 0.0-0.1 PT panel in platelet poor plasma by coagulation assay - 08/04/16 10:46 Prothrombin time (PT) in platelet poor plasma by coagulation assay 12.3 s 12.2-14.7 INR in platelet poor plasma or blood by coagulation assay 0.9 0.8-1.4 Activated partial thromboplastin time (aPTT) in platelet poor plasma bycoagulation assay - 08/04/16 10:46 Activated partial thromboplastin time (aPTT) in platelet poor plasma bycoagulation assay 29 s 24-35 Comprehensive metabolic panel - 08/04/16 10:46 Serum or plasma sodium measurement (moles/volume) 146 mmol/L 135-145 Serum or plasma potassium measurement (moles/volume) 3.9 mmol/L 3.6-5.0 Serum or plasma chloride measurement (moles/volume) 111 mmol/L 98-107 Carbon dioxide 25 mmol/L 21-32 Serum or plasma anion gap determination (moles/volume) 10 mmol/L 5-14 Serum or plasma urea nitrogen measurement (mass/volume) 15 mg/dL 7-18 Serum or plasma creatinine measurement (mass/volume) 0.87 mg/dL 0.60-1.30 Serum or plasma urea nitrogen/creatinine mass ratio 17 NRG Serum or plasma creatinine measurement with calculation of estimated glomerular filtration rate > NRG Serum or plasma glucose measurement (mass/volume) 101 mg/dL 70-105 Serum or plasma calcium measurement (mass/volume) 8.9 mg/dL 8.5-10.1 Serum or plasma total bilirubin measurement (mass/volume) 0.3 mg/dL 0.1-1.0 Serum or plasma alkaline phosphatase measurement (enzymatic activity/volume) 55 U/L 40-136 Serum or plasma aspartate aminotransferase measurement (enzymatic activity/ volume) 26 U/L 5-34 Serum or plasma alanine aminotransferase measurement (enzymatic activity/volume ) 18 U/L 0-55 Serum or plasma protein measurement (mass/volume) 6.4 g/dL 6.4-8.2 Serum or plasma albumin measurement (mass/volume) 4.2 g/dL 3.2-4.5 Magnesium - 08/04/16 10:46 Magnesium 2.1 mg/dL 1.8-2.4 Serum or plasma troponin i.cardiac measurement (mass/volume) - 08/04/16 10:46 Serum or plasma troponin i.cardiac measurement (mass/volume) < ng/ mL <0.30 Myoglobin, serum - 08/04/16 10:46 Myoglobin, serum 31.0 ng/mL 10.0-92.0 Complete blood count (CBC) with automated white blood cell (WBC) differential - 12/22/16 10:33 Blood leukocytes automated count (number/volume) 14.6 10*3/uL 4.3-11.0 Blood erythrocytes automated count (number/volume) 4.15 10*6/uL 4.35-5.85 Venous blood hemoglobin measurement (mass/volume) 12.6 g/dL 11.5-16.0 Blood hematocrit (volume fraction) 37 % 35-52 Automated erythrocyte mean corpuscular volume 90 [foz_us] 80-99 Automated erythrocyte mean corpuscular hemoglobin (mass per erythrocyte) 30 pg 25-34 Automated erythrocyte mean corpuscular hemoglobin concentration measurement ( mass/volume) 34 g/dL 32-36 Automated erythrocyte distribution width ratio 14.9 % 10.0-14.5 Automated blood platelet count (count/volume) 235 10*3/uL 130-400 Automated blood platelet mean volume measurement 10.0 [foz_us] 7.4-10.4 Automated blood neutrophils/100 leukocytes 92 % 42-75 Automated blood lymphocytes/100 leukocytes 5 % 12-44 Blood monocytes/100 leukocytes 3 % 0-12 Automated blood eosinophils/100 leukocytes 0 % 0-10 Automated blood basophils/100 leukocytes 0 % 0-10 Blood neutrophils automated count (number/volume) 13.4 10*3 1.8-7.8 Blood lymphocytes automated count (number/volume) 0.7 10*3 1.0-4.0 Blood monocytes automated count (number/volume) 0.5 10*3 0.0-1.0 Automated eosinophil count 0.0 10*3/uL 0.0-0.3 Automated blood basophil count (count/volume) 0.0 10*3/uL 0.0-0.1 PT panel in platelet poor plasma by coagulation assay - 12/22/16 10:33 Prothrombin time (PT) in platelet poor plasma by coagulation assay 12.0 s 12.2-14.7 INR in platelet poor plasma or blood by coagulation assay 0.9 0.8-1.4 Activated partial thromboplastin time (aPTT) in platelet poor plasma bycoagulation assay - 12/22/16 10:33 Activated partial thromboplastin time (aPTT) in platelet poor plasma bycoagulation assay 22 s 24-35 Fibrin D-dimer FEU measurement in platelet poor plasma (mass/volume) - 10:33 Fibrin D-dimer FEU measurement in platelet poor plasma (mass/volume) 0.40 ug/mL 0.00-0.49 Comprehensive metabolic panel - 12/22/16 10:33 Serum or plasma sodium measurement (moles/volume) 141 mmol/L 135-145 Serum or plasma potassium measurement (moles/volume) 3.8 mmol/L 3.6-5.0 Serum or plasma chloride measurement (moles/volume) 106 mmol/L 98-107 Carbon dioxide 22 mmol/L 21-32 Serum or plasma anion gap determination (moles/volume) 13 mmol/L 5-14 Serum or plasma urea nitrogen measurement (mass/volume) 12 mg/dL 7-18 Serum or plasma creatinine measurement (mass/volume) 0.80 mg/dL 0.60-1.30 Serum or plasma urea nitrogen/creatinine mass ratio 15 NRG Serum or plasma creatinine measurement with calculation of estimated glomerular filtration rate > NRG Serum or plasma glucose measurement (mass/volume) 165 mg/dL 70-105 Serum or plasma calcium measurement (mass/volume) 9.6 mg/dL 8.5-10.1 Serum or plasma total bilirubin measurement (mass/volume) 0.9 mg/dL 0.1-1.0 Serum or plasma alkaline phosphatase measurement (enzymatic activity/volume) 67 U/L 40-136 Serum or plasma aspartate aminotransferase measurement (enzymatic activity/ volume) 26 U/L 5-34 Serum or plasma alanine aminotransferase measurement (enzymatic activity/volume ) 20 U/L 0-55 Serum or plasma protein measurement (mass/volume) 6.8 g/dL 6.4-8.2 Serum or plasma albumin measurement (mass/volume) 4.4 g/dL 3.2-4.5 Blood manual differential performed detection - 12/22/16 10:33 Blood monocytes/100 leukocytes 6 % NRG Manual blood segmented neutrophils/100 leukocytes 85 % NRG Blood band neutrophils/100 leukocytes 4 % NRG Manual blood lymphocytes/100 leukocytes 5 % NRG Manual eosinophils/100 leukocytes in nose 0 % NRG Manual blood basophils/100 leukocytes 0 % NRG Blood anisocytosis detection by light microscopy SLIGHT NRG Blood ovalocytes detection by light microscopy SLIGHT NRG Serum or plasma troponin i.cardiac measurement (mass/volume) - 12/22/16 10:33 Serum or plasma troponin i.cardiac measurement (mass/volume) < ng/ mL <0.30 Complete urinalysis with reflex to culture - 12/22/16 11:00 Urine color determination YELLOW NRG Urine clarity determination SLIGHTLY CLOUDY NRG Urine pH measurement by test strip 7 5-9 Specific gravity of urine by test strip 1.010 1.016- 1.022 Urine protein assay by test strip, semi-quantitative NEGATIVE NEGATIVE Urine glucose detection by automated test strip NEGATIVE NEGATIVE Erythrocytes detection in urine sediment by light microscopy NEGATIVE NEGATIVE Urine ketones detection by automated test strip NEGATIVE NEGATIVE Urine nitrite detection by test strip NEGATIVE NEGATIVE Urine total bilirubin detection by test strip NEGATIVE NEGATIVE Urine urobilinogen measurement by automated test strip (mass/volume) NORMAL NORMAL Urine leukocyte esterase detection by dipstick NEGATIVE NEGATIVE Automated urine sediment erythrocyte count by microscopy (number/high power field) NONE NRG Automated urine sediment leukocyte count by microscopy (number/high power field ) NONE NRG Bacteria detection in urine sediment by light microscopy NEGATIVE NRG Squamous epithelial cells detection in urine sediment by light microscopy RARE NRG Crystals detection in urine sediment by light microscopy NONE NRG Casts detection in urine sediment by light microscopy NONE NRG Mucus detection in urine sediment by light microscopy NEGATIVE NRG Complete urinalysis with reflex to culture NO NRG Complete blood count (CBC) with automated white blood cell (WBC) differential - 06/27/17 09:38 Blood leukocytes automated count (number/volume) 5.2 10*3/uL 4.3-11.0 Blood erythrocytes automated count (number/volume) 3.76 10*6/uL 4.35-5.85 Venous blood hemoglobin measurement (mass/volume) 11.8 g/dL 11.5-16.0 Blood hematocrit (volume fraction) 35 % 35-52 Automated erythrocyte mean corpuscular volume 92 [foz_us] 80-99 Automated erythrocyte mean corpuscular hemoglobin (mass per erythrocyte) 31 pg 25-34 Automated erythrocyte mean corpuscular hemoglobin concentration measurement ( mass/volume) 34 g/dL 32-36 Automated erythrocyte distribution width ratio 14.7 % 10.0-14.5 Automated blood platelet count (count/volume) 142 10*3/uL 130-400 Automated blood platelet mean volume measurement 11.2 [foz_us] 7.4-10.4 Automated blood neutrophils/100 leukocytes 67 % 42-75 Automated blood lymphocytes/100 leukocytes 23 % 12-44 Blood monocytes/100 leukocytes 9 % 0-12 Automated blood eosinophils/100 leukocytes 0 % 0-10 Automated blood basophils/100 leukocytes 0 % 0-10 Blood neutrophils automated count (number/volume) 3.5 10*3 1.8-7.8 Blood lymphocytes automated count (number/volume) 1.2 10*3 1.0-4.0 Blood monocytes automated count (number/volume) 0.5 10*3 0.0-1.0 Automated eosinophil count 0.0 10*3/uL 0.0-0.3 Automated blood basophil count (count/volume) 0.0 10*3/uL 0.0-0.1 PT panel in platelet poor plasma by coagulation assay - 06/27/17 09:38 Prothrombin time (PT) in platelet poor plasma by coagulation assay 14.3 s 12.2-14.7 INR in platelet poor plasma or blood by coagulation assay 1.1 0.8-1.4 Activated partial thromboplastin time (aPTT) in platelet poor plasma bycoagulation assay - 06/27/17 09:38 Activated partial thromboplastin time (aPTT) in platelet poor plasma bycoagulation assay 25 s 24-35 Complete urinalysis with reflex to culture - 06/27/17 09:38 Urine color determination YELLOW NRG Urine clarity determination SLIGHTLY CLOUDY NRG Urine pH measurement by test strip 6 5-9 Specific gravity of urine by test strip 1.020 1.016- 1.022 Urine protein assay by test strip, semi-quantitative 2+ NEGATIVE Urine glucose detection by automated test strip NEGATIVE NEGATIVE Erythrocytes detection in urine sediment by light microscopy 1+ NEGATIVE Urine ketones detection by automated test strip NEGATIVE NEGATIVE Urine nitrite detection by test strip NEGATIVE NEGATIVE Urine total bilirubin detection by test strip NEGATIVE NEGATIVE Urine urobilinogen measurement by automated test strip (mass/volume) NORMAL NORMAL Urine leukocyte esterase detection by dipstick 1+ NEGATIVE Automated urine sediment erythrocyte count by microscopy (number/high power field) RARE NRG Automated urine sediment leukocyte count by microscopy (number/high power field ) RARE NRG Bacteria detection in urine sediment by light microscopy NEGATIVE NRG Squamous epithelial cells detection in urine sediment by light microscopy NONE NRG Crystals detection in urine sediment by light microscopy NONE NRG Casts detection in urine sediment by light microscopy NONE NRG Mucus detection in urine sediment by light microscopy SMALL NRG Complete urinalysis with reflex to culture NO NRG Blood lactic acid measurement (moles/volume) - 06/27/17 09:38 Blood lactic acid measurement (moles/volume) 0.96 mmol/L 0.50-2.00 Comprehensive metabolic panel - 06/27/17 09:38 Serum or plasma sodium measurement (moles/volume) 142 mmol/L 135-145 Serum or plasma potassium measurement (moles/volume) 4.0 mmol/L 3.6-5.0 Serum or plasma chloride measurement (moles/volume) 112 mmol/L 98-107 Carbon dioxide 22 mmol/L 21-32 Serum or plasma anion gap determination (moles/volume) 8 mmol/L 5-14 Serum or plasma urea nitrogen measurement (mass/volume) 13 mg/dL 7-18 Serum or plasma creatinine measurement (mass/volume) 0.79 mg/dL 0.60-1.30 Serum or plasma urea nitrogen/creatinine mass ratio 16 NRG Serum or plasma creatinine measurement with calculation of estimated glomerular filtration rate > NRG Serum or plasma glucose measurement (mass/volume) 139 mg/dL 70-105 Serum or plasma calcium measurement (mass/volume) 7.8 mg/dL 8.5-10.1 Serum or plasma total bilirubin measurement (mass/volume) 0.4 mg/dL 0.1-1.0 Serum or plasma alkaline phosphatase measurement (enzymatic activity/volume) 56 U/L 40-136 Serum or plasma aspartate aminotransferase measurement (enzymatic activity/ volume) 25 U/L 5-34 Serum or plasma alanine aminotransferase measurement (enzymatic activity/volume ) 20 U/L 0-55 Serum or plasma protein measurement (mass/volume) 5.3 g/dL 6.4-8.2 Serum or plasma albumin measurement (mass/volume) 3.4 g/dL 3.2-4.5 Encounters ACCT No. Visit Date/Time Discharge Status Pt. Type Provider Facility Loc./Unit Complaint [id number] 03/03/2017 18:38:00 03/03/2017 20:25:00 DIS Emergency BOUCHRA TONG APRN [facility] ER PULLED TUBE OUT [id number] 03/02/2017 16:29:00 03/02/2017 18:15:00 DIS Emergency REN CASTRO [facility] ER FEEDING TUBE ISSUES [id number] 12/22/2016 10:22:00 12/22/2016 11:40:00 DIS Emergency SANTA BARNES MD [facility] ER STROKE SYMPTOMS [id number] 08/19/2016 12:16:00 08/19/2016 23:59:59 CLS Outpatient ZULEYMA VAUGHAN MD [facility] CARD HX OF STROKE,HTN [id number] 08/04/2016 10:29:00 08/04/2016 12:27:00 DIS Emergency ADRIANA TRIPP DO [facility] ER STROKE [id number] 07/12/2016 13:02:00 07/12/2016 23:59:59 CLS Outpatient BLANCA PICKENS APRN [facility] RAD LOW BACK PAIN [id number] 02/01/2016 11:49:00 02/01/2016 23:59:59 CLS Outpatient MAYUR ELIZABETH FACC, LUIS FERNANDO POP CCDS [facility] CARD SOB,CVA,HTN, IFG [id number] 01/09/2016 14:01:00 01/09/2016 23:59:59 CLS Outpatient BLANCA PICKENS APRN [facility] RAD HX OF STROKE-I63.8 [id number] 12/21/2015 14:04:00 12/21/2015 23:59:59 CLS Outpatient TRACE CUEVAS [facility] RAD MEMORY LOSS, HEADACHES [id number] 09/10/2015 13:20:00 09/10/2015 14:07:00 DIS Outpatient CRISTY MONTES MD [facility] CARD SACROCOCCYGEAL DISORDER [id number] 03/10/2015 13:50:00 03/10/2015 23:59:59 CLS Outpatient ZULEYMA VAUGHAN MD [facility] RAD R HEEL PAIN [id number] 12/07/2014 11:24:00 12/07/2014 23:59:59 CLS Outpatient JASBIR OSBORN [facility] RAD OSTEOPOROSIS [id number] 06/22/2014 09:30:00 06/22/2014 23:59:59 CLS Preadmit SCOTTIE LEONARD MD [facility] CARD NEAR SYNCOPE [id number] 03/23/2014 09:30:00 06/21/2014 00:01:00 DIS Outpatient SCOTTIE LEONARD MD [facility] CARD NEAR SYNCOPE [id number] 04/10/2014 14:42:00 04/10/2014 23:59:59 CLS Outpatient TREMAYNE ROMAN [facility] RAD NECK PAIN [id number] 03/22/2014 14:25:00 03/22/2014 23:59:59 CLS Outpatient SCOTTIE LEONARD MD [facility] LAB SYNCOPE [id number] 01/26/2014 13:40:00 01/26/2014 23:59:59 CLS Outpatient SCOTTIE LEONARD MD [facility] RAD BACK PAIN [id number] 11/09/2013 17:53:00 11/09/2013 23:59:59 CLS Outpatient SCOTTIE LEONARD MD [facility] RAD BACK PAIN [id number] 01/26/2013 13:00:00 02/14/2013 14:15:00 DIS Outpatient DARELL COURTNEY [facility] REHAB L1-L5 PSF [id number] 10/29/2012 09:47:00 10/29/2012 23:59:59 CLS Outpatient DARELL ORTIZ MD [facility] RAD LUMBAR STENOSIS [id number] 09/22/2012 20:20:00 09/23/2012 00:49:00 DIS Emergency QASIM DOADRIANA [facility] ER CHEST/L ARM DISCOMFORT [id number] 09/06/2012 07:48:00 09/20/2012 10:03:00 DIS Outpatient CORNELIO RAMIREZ [facility] REHAB R HIP BURSITIS;LOW BACK PAIN [id number] 09/14/2012 14:16:00 09/14/2012 23:59:59 CLS Outpatient DARELL ORTIZ MD [facility] RAD LUMBAR STENOSIS [id number] 06/27/2017 09:59:00 Document Registration [id number] 06/14/2012 10:22:00 Document Registration [id number] 06/11/2012 12:59:00 Document Registration [id number] 05/31/2012 14:56:00 Document Registration [id number] 05/12/2012 14:25:00 Document Registration [id number] 03/04/2012 13:32:00 Document Registration [id number] 07/23/2009 06:38:00 Document Registration
== END 2017-06-27 12:50 | disposition home or self-care (01) ==
LOC: EDUNIT# 09:28 → ER 09:29
DX: E86.0 Dehydration (principal); R55 Syncope and collapse; F32.9 Major depressive disorder, single episode, unspecified; E11.9 Type 2 diabetes mellitus without complications; M81.0 Age-related osteoporosis without current pathological fracture; F03.90 Unspecified dementia, unspecified severity, without behavioral disturbance, psychotic disturbance, mood disturbance, and anxiety; J45.909 Unspecified asthma, uncomplicated; Z90.89 Acquired absence of other organs; Z86.73 Personal history of transient ischemic attack (TIA), and cerebral infarction without residual deficits; Z90.710 Acquired absence of both cervix and uterus; Z79.82 Long term (current) use of aspirin; Z88.0 Allergy status to penicillin; Z88.8 Allergy status to other drugs, medicaments and biological substances
CPT/HCPCS: 36415; 70450; 71045; 80053; 81000; 82330; 83605; 85025; 85610; 85730; 87040; 93005; 96360

== ENCOUNTER 2017-10-16 21:07 | Emergency (ER) | payer MEDICARE, BC ==
[~2017-10-16] VITALS: Ht 154.9 cm; Wt 50.8 kg
[2017-10-16] MEDS ORDERED: FAMOTIDINE 20 MG (PEPCID) TABLET PO STA (21:31)
[2017-10-16] MEDS ORDERED: DEXAMETHASONE PF 10 MG/ML (DECADRON) VIAL IM STA (21:31)
--- NOTE | 2017-10-16 21:34 | ED General ---
General Chief Complaint: Allergic Reaction Stated Complaint: FACE SWELLING Source of Information: Patient Exam Limitations: No Limitations (LELA SOTO STUDENT) History of Present Illness Date Seen by Provider: Oct 16, 2017 Time Seen by Provider: 21:29 Initial Comments Patient to ER with complaints of right sided facial swelling after eating at [facility]. Patient reports having history of allergies to tomatoes and tonight she did eat a hamburger with ketchup on it. She has not had a reaction to tomatoes or tomato-based products in quite some time. The right cervical face is flushed at this time, her did give her 25 mg diphenhydramine prior to arrival. Timing/Duration: 1/2 Hour Modifying Factors: improves with Medication Associated Systoms: Denies Symptoms; No Shortness of Air (LELA SOTO ) Modifying Factors: worse with Eating Associated Systoms: No Cough, No Fever/Chills, No Nausea/Vomiting (SANTA BARNES MD) Allergies and Home Medications Allergies Coded Allergies: Penicillins (Unverified Allergy, Unknown, HIVES, 12/21/15) THROAT SWELLS Uncoded Allergies: PAULINO INHIBITOR 2 (Allergy, Unknown, HIVES, 12/21/15) THROAT SWELLS Home Medications Clopidogrel Bisulfate 75 Mg Tablet, 75 MG PO DAILY Prescribed by: ADRIANA TRIPP on 08/04/16 1221 Donepezil HCl 5 Mg Tablet, 5 MG PO DAILY, (Reported) Duloxetine HCl 30 Mg Capsule.dr, 30 MG PO DAILY, (Reported) Hydrocodone Bit/Acetaminophen 1 Each Tablet, 1 EACH PO Q4H PRN for PAIN Prescribed by: REN BRITT on 03/02/17 1819 Memantine HCl 28 Mg Cap.spr.24, 28 MG PO DAILY, (Reported) Patient Home Medication List Home Medication List Reviewed: Yes (LELA SOTO STUDENT) Home Medication List Reviewed: Yes (SANTA BARNES MD) Review of Systems Constitutional: see HPI, other (facial swelling) EENTM: see HPI, throat swelling (throat discomfort) Respiratory: no symptoms reported, see HPI Cardiovascular: no symptoms reported, see HPI Gastrointestinal: see HPI Genitourinary: see HPI Musculoskeletal: see HPI Skin: see HPI Psychiatric/Neurological: No Symptoms Reported, See HPI Hematologic/Lymphatic: See HPI Immunological/Allergic: see HPI, food allergy (LELA SOTO STUDENT) Respiratory: No short of breath, No wheezing Cardiovascular: No chest pain, No palpitations Gastrointestinal: No abdominal pain, No nausea, No vomiting Skin: change in color (SANTA BARNES MD) All Other Systems Reviewed Negative Unless Noted: Yes (SANTA BARNES MD) Past Saeezpm-Gnhxwj-Qyeorh Hx Past Med/Social Hx: Reviewed Nursing Past Med/Soc Hx (LELA SOTO) Past Med/Social Hx: Reviewed Nursing Past Med/Soc Hx (SANTA BARNES MD) Patient Social History 2nd Hand Smoke Exposure: No Recent Foreign Travel: No Contact w/Someone Who Travel: No Recent Hopitalizations: No (LELA SOTO) Immunizations Up To Date Tetanus Booster (TDap): More than 5yrs Date of Influenza Vaccine: Feb 16, 2012 (LELA SOTO) Seasonal Allergies Seasonal Allergies: Yes (LELA SOTO) Past Medical History Surgeries: Yes ("spinal cage" and gastrostomy tube placement) Hysterectomy, Orthopedic, Tonsillectomy Respiratory: Yes Asthma Cardiac: No Neurological: Yes ("mini stroke" FOUND ON MRI 3-4 months ago per ) Dementia, Stroke Reproductive Disorders: No Genitourinary: No Gastrointestinal: No Musculoskeletal: Yes Osteoporosis, Arthritis, Chronic Back Pain, Fractures Endocrine: Yes (WAS ON MEDICATIONS FOR DIABETES, BUT NOT ANY LONGER) Diabetes, Non-Insulin dep HEENT: No Cancer: No Psychosocial: Yes Depression Integumentary: No Blood Disorders: No (LELA SOTO) Family Medical History Reviewed Nursing Family Hx (LELA SOTO) Reviewed Nursing Family Hx (SANTA BARNES MD) No Pertinent Family Hx (LELA SOTO) Physical Exam Vital Signs Vital Signs - First Documented 10/16/17 21:19 Temp 97.1 Pulse 69 Resp 20 B/P (MAP) 129/68 (88) Pulse Ox 96 O2 Delivery Room Air (SANTA BARNES MD) Vital Signs Capillary Refill : (LELA SOTO STUDENT) General Appearance: No Apparent Distress, WD/WN Eyes: Bilateral Eye Normal Inspection, Bilateral Eye PERRL HEENT: PERRL/EOMI, TMs Normal, Normal ENT Inspection, Pharynx Normal Neck: Full Range of Motion, Normal Inspection, Non Tender, Supple Respiratory: Chest Non Tender, Lungs Clear, Normal Breath Sounds, No Accessory Muscle Use, No Respiratory Distress Cardiovascular: Regular Rate, Rhythm, No Edema, No Gallop, No JVD, No Murmur, Normal Peripheral Pulses Gastrointestinal: Normal Bowel Sounds, No Organomegaly, No Pulsatile Mass, Non Tender, Soft Back: Normal Inspection, No CVA Tenderness, No Vertebral Tenderness Extremity: Normal Capillary Refill, Normal Inspection, Normal Range of Motion, Non Tender, No Calf Tenderness Neurologic/Psychiatric: Alert, Oriented x3, Normal Mood/Affect Skin: Normal Color, Warm/Dry, Other (the patient has facial flushing to the right side of her face that is improving.) (LELA SOTO STUDENT) HEENT: Normal ENT Inspection, Pharynx Normal Respiratory: Lungs Clear, Normal Breath Sounds Cardiovascular: Regular Rate, Rhythm, No Murmur Gastrointestinal: Non Tender, Soft (SANTA BARNES MD) Progress/Results/Core Measures Suspected Sepsis SIRS Temperature: Pulse: Respiratory Rate: Blood Pressure / Mean: (LELA SOTO STUDENT) Results/Orders My Orders Orders - SANTA BARNES MD Famotidine Tablet (Pepcid Tablet) (10/16/17 21:31) Dexamethasone Pf Injection (Decadron Pf (10/16/17 21:31) Dexamethasone Injection (Decadron Inject (10/16/17 21:39) (SANTA BARNES MD) Medications Given in ED Current Medications Medications Dose Ordered Sig/Marie Route Start Time Stop Time Status Last Admin Dose Admin Dexamethasone Sodium Phosphate 10 mg STK-MED ONCE .ROUTE 10/16/17 21:39 10/16/17 21:40 DC 10/16/17 21:41 10 MG (SANTA BARNES MD) Vital Signs/I&O 10/16/17 21:19 Temp 97.1 Pulse 69 Resp 20 B/P (MAP) 129/68 (88) Pulse Ox 96 O2 Delivery Room Air (SANTA BARNES MD) Vital Signs/I&O Capillary Refill : (LELA SOTO STUDENT) Progress Note : Time: 22:08 Progress Note The patient verbalizes that she is feeling much better at this time and the swelling sensation in her throat is gone. She is currently drinking a sprite with out difficulty. The facial flushing is gone at this time. (LELA SOTO STUDENT) Progress Note : Progress Note I have seen and evaluated the patient with Lela Soto APRN and agree with above except as indicated. I have directed the plan of care.. Patient here with right-sided facial swelling and redness after eating ketchup. She hasn't had this problem in a while. She used to have EpiPen but has not had that recently. did use Benadryl cream to the area and gave 25 mg of Benadryl by mouth. She is doing better now. Denies breathing problems or abdominal problems. Has had history of anaphylaxis in the past. Pepcid 20 mg by mouth and Decadron 10 mg IM ordered. Monitor patient. 2230: Patient has resolution of symptoms. Discharged home with return precautions. Patient verbalized understanding instructions and agreement with plan. We did prescribe EpiPen in case she has anaphylaxis event. (SANTA BARNES MD) Departure Impression Primary Impression: Allergic reaction to food Qualified Codes: T78.1XXA - Other adverse food reactions, not elsewhere classified, initial encounter Disposition: 01 HOME, SELF-CARE Condition: Stable/Unchanged Departure-Patient Inst. Decision time for Depature: 22:16 (LELA SOTO STUDENT) Referrals: ZULEYMA VAUGHAN MD (PCP/Family) Primary Care Physician Patient Instructions: Food Allergy Add. Discharge Instructions: Take medication as directed, use the EpiPen if you have another allergic reaction involving the airway. Follow up with your Dr. within 1 week for recheck. Return back to the emergency room for any shortness of breath, chest pain, or allergic reactions unresolved by medication or if you should use your EpiPen or any other concerns as needed. All discharge instructions reviewed with patient and/or family. Voiced understanding. Scripts Epinephrine (Epinephrine) 0.3 Mg/0.3 Ml Auto.injct 0.3 MG IJ ONCE, #1 APPLIC Prov: SANTA BARNES MD 10/16/17 Copy Copies To 1: ZULEYMA VAUGHAN MD, TRAVIS STUDENT Oct 16, 2017 21:34 SANTA BARNES MD Oct 16, 2017 22:34
[2017-10-16] MEDS ORDERED: DEXAMETHASONE 10 MG/ML (DECADRON) 1 ML VIAL ONE (21:39)
[2017-10-16] MEDS ORDERED: EPIN0.3A3 IJ (22:35)
[2017-10-16 22:45] VITALS: BP 129/68
== END 2017-10-16 22:45 | disposition home or self-care (01) ==
LOC: EDUNIT# 21:07 → ER 21:09
DX: T78.1XXA Other adverse food reactions, not elsewhere classified, initial encounter (principal); R22.0 Localized swelling, mass and lump, head; J45.909 Unspecified asthma, uncomplicated; F03.90 Unspecified dementia, unspecified severity, without behavioral disturbance, psychotic disturbance, mood disturbance, and anxiety; M81.0 Age-related osteoporosis without current pathological fracture; E11.9 Type 2 diabetes mellitus without complications; F32.9 Major depressive disorder, single episode, unspecified; Z91.14 Patient's other noncompliance with medication regimen; Z88.0 Allergy status to penicillin; Z88.8 Allergy status to other drugs, medicaments and biological substances; Z86.73 Personal history of transient ischemic attack (TIA), and cerebral infarction without residual deficits; Z91.018 Allergy to other foods; Z79.02 Long term (current) use of antithrombotics/antiplatelets; Z98.84 Bariatric surgery status; Z90.710 Acquired absence of both cervix and uterus; Z90.89 Acquired absence of other organs
CPT/HCPCS: 96372; 99284

== ENCOUNTER 2018-09-20 05:07 | Observation (INO) | payer MEDICARE, BC ==
[~2018-09-20] VITALS: Ht 154.9 cm; Wt 59.0 kg
[~2018-09-20 05:07] MED LIST changes: +EPIN0.3P18 IJ
--- NOTE | 2018-09-20 05:08 | NUR ---
TO CT WITH KAT CINTRON AND VANESSA HOWELL AND [employer]ESSA [employer]LEX[employer].
--- OUTSIDE RECORDS SUMMARY | 2018-09-20 05:13 | XMS REPORT | Clinical Summary ---
Author Author [facility] Organization [facility] Address Unknown Phone Unavailable Care Team Providers Care Director Quality Systems Name Role Phone Marylu Ochoa MD PCP Source Comments Some departments are not documenting in the electronic medical record. If you do not see the information that you expected, contact Release of Information in the Health Information Management department at [phone] for further assistance in locating additional records.[facility] Allergies Comments Active Allergy Reactions Severity Noted Date [place] VOMITING Low 12/24/2016 Celecoxib HIVES Medium 12/24/2016 Penicillins UNKNOWN High 12/22/2016 Throat swelling Tomato SEE COMMENTS High 1950 Medications End Date Status Medication Sig Dispensed Refills Start Date Active aspirin EC 81 mg tablet Take 81 mg by 0 mouth daily. Take with food. Active acetaminophen (TYLENOL) Take 20.3 mL 240 mL 0 160 mg/5 mL oral solution by mouth 7 every 4 hours as needed. Max of 4,000 mg of acetaminophen in 24 hours. Active senna/docusate 10 mL by PEG 0 (SENOKOT-S) 8.8/50 mg /10 Tube route 7 mL solution twice daily. Active clopiDOGrel (PLAVIX) 75 Take 1 tablet 90 tablet 3 mg tablet by mouth 7 daily. Will reevaluate continuation of this medication at your follow up appointment Active levETIRAcetam (KEPPRA) Take 7.5 mL 473 mL 1 100 mg/mL oral solution by mouth 7 twice daily. Active donepezil (ARICEPT) 5 mg Take 1 tablet 90 tablet 3 tablet per feeding 7 tube daily. Active heparin (porcine) PF Inject 0.5 mL 0 5,000units/0.5mL under the 7 injection syringe skin every 8 hours. Active loratadine (CLARITIN) 10 Take 1 tablet 90 tablet 3 mg tablet via feeding 7 tube daily. Active melatonin 5 mg tab 1 tablet by 0 Per G Tube 7 route at bedtime daily. Active carboxymethylcellulose Apply 1 drop 0 (REFRESH PLUS) 0.5 % dpet to both eyes 7 four times daily as needed. Active ketotifen(+) (ZADITOR) Apply 1 drop 0 0.025 % (0.035 %) to both eyes 7 ophthalmic solution twice daily. 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 12/23/2016 Dementia 12/23/2016 TIA (transient ischemic attack) 12/23/2016 Chronic back pain 12/23/2016 Intraparenchymal hemorrhage of brain 12/22/2016 Overview: Added automatically from request for surgery [id number] Dysphagia 12/22/2016 Overview: Added automatically from request for surgery [id number] Resolved Problems Problem Noted Date Resolved Date Hypernatremia 01/07/2017 01/12/2017 Social History Date Tobacco Use Types Packs/Day Years Used Never Smoker Smokeless Tobacco: Never Used Alcohol Use Drinks/Week oz/Week Comments No Sex Assigned at Date Recorded Not on file Industry Job Start Date Occupation Not on file Not on file Not on file Travel End Travel History Travel Start No recent travel history available. Last Filed Vital Signs Time Taken Vital Sign Reading 01/30/2017 3:41 AM CDT Blood Pressure 99/41 01/30/2017 3:41 AM CDT Pulse 73 01/30/2017 5:55 AM CDT Temperature 36.5 C (97.7 F) - Respiratory Rate - 01/30/2017 3:41 AM CDT Oxygen Saturation 100% - Inhaled Oxygen - Concentration 01/26/2017 1:27 PM CDT Weight 55 kg (121 lb 4.1 oz) 01/06/2017 4:19 PM CDT Height 152.4 cm (5') 01/06/2017 4:19 PM CDT Body Mass Index 23.68 Plan of Treatment Health Maintenance Due Date Last Done Comments HEPATITIS C SCREENING 1950 PHYSICAL (COMPREHENSIVE) 1957 EXAM DTAP/TDAP VACCINES (1 - 1968 Tdap) BREAST CANCER SCREENING 1990 COLORECTAL CANCER 2000 SCREENING SHINGLES RECOMBINANT 2000 VACCINE (1 of 2) OSTEOPOROSIS 2015 SCREENING/MONITORING PNEUMONIA (PCV13/PPSV23) 2015 VACCINES (1 of 2 - PCV13) INFLUENZA VACCINE 02/15/2019 02/23/2001, 04/15/2000, 03/11/1999, Additional history exists Implants Device Identifier Shelf Expiration Date Model / Serial / Lot Implanted Type Area Manufactur er [id number] / NA / NA Screw Neuro 1.5x4mm Drill Free - [employer] BALWINDER Sna CMF Implanted: Qty: 4 on 12/24/2016 by IMPLANTS Antwan Guadarrama MD [id number] / NA / NA Cover Myra Hole 17mm .3mm Contour Left: Skull KATHY BRITT Titanium - Sna CMF Implanted: Qty: 1 on 12/24/2016 by Antwan Muñiz MD 07/15/2017 [id number] / N/A / [id number] Device Closure 70cm 6fr Angio-Seal Right: Femoral ST NIKOLAS Vip .035in Vascular - Sn/A Artery MED Implanted: Qty: 1 on 12/29/2016 by Scott Mancilla MD Results Not on filefrom Last 3 Months Insurance Type Payer Benefit Subscriber ID Effective Phone Address Plan / Dates Group PPO BCBS GRIS BCBS GRIS xxxxxxxxx [id number] FED EMP resent PROGRAM Medicare MEDICARE MEDICARE xxxxxxxxxx [id number] PART A AND resent B Advance Directives Patient has advance care planning documents, and code status on file. For more information, please contact: [facility] [address] [place] [address] Date Inactivated Comments Code Status Date Activated 01/30/2017 2:09 PM Full Code 01/06/2017 4:08 PM Provider has discussed Code Status No, more discussion w/Patient or Family? needed 01/06/2017 4:08 PM Full Code 12/22/2016 12:57 PM Provider has discussed Code Status No, more discussion w/Patient or Family? needed
--- OUTSIDE RECORDS SUMMARY | 2018-09-20 05:16 | XMS REPORT | CCD ---
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 Handlers Supervisor Name Role Phone PP Unavailable CCM Unavailable Summary Purpose Interface Exchange Insurance Providers Payer name Policy type / Coverage type Covered alliance party ID Effective Begin Date Effective End Date WPS Medicare Part B Medicare Part B [id number] 2015 Unknown [facility] Medicare Part B [id number] 2015 Unknown Family history Mother Diagnosis Age [...] Unknown Retired 10/16/[address]: 395790564 Never smoker 10/16/[address]: 952969150 Never drinks alcohol 10/16/2014 Allergies, Adverse Reactions, Alerts Allergies, Adverse Reactions, Alerts data not found Past Medical History Illness Codes Condition Status Onset Date Resolved Date Essential (primary) hypertension ICD-9: 401.1 ICD-10: I10 Active 09/08/2016 Unknown Low back pain ICD-9: 724.2 ICD-10: M54.5 Active 08/15/2015 Unknown Major depressive disorder, recurrent, moderate ICD-9: 296.32 ICD-10: F33.1 Active 09/08/2016 Unknown Other sleep apnea ICD- 9: 327.29 ICD-10: G47.39 Active 09/08/2016 Unknown Personal history of transient ischemic attack (TIA), and cerebral infarction without residual deficits ICD-9: V12.54 ICD-10: Z86.73 Active 09/08/2016 Unknown Chronic pain syndrome ICD-9: 338.4 ICD-10: G89.4 Active 02/03/2016 Unknown Major depressive disorder, recurrent, mild ICD-9: 296.31 ICD-10: F33.0 Active 01/06/2016 Unknown Mixed hyperlipidemia ICD-9: 272.4 ICD-10: E78.2 Active 12/16/2015 Unknown 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 ICD-10: 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 Active 08/11/2016 Unknown Mild cognitive impairment, so stated ICD-9: [...] ICD-9: 728.71 ICD-10: M72.2 Active 03/25/2015 Unknown VACCIN FOR INFLUENZA ICD-9: V04.81 ICD-10: Z23 Active 03/25/2015 Unknown Hyperlipidemia Unknown Active 01/30/2015 [...] Problems Condition Codes Effective Dates Condition Status Essential (primary) hypertension ICD-9: 401.1 ICD-10: I10 09/08/2016 Active Low back pain ICD-9: 724.2 ICD-10: M54.5 08/15/2015 Active Major depressive disorder, recurrent, moderate ICD-9: 296.32 ICD-10: F33.1 09/08/2016 Active Other sleep apnea ICD- 9: 327.29 ICD-10: G47.39 09/08/2016 Active Personal history of transient ischemic attack (TIA), and cerebral infarction without residual deficits ICD-9: V12.54 ICD-10: Z86.73 09/08/2016 Active Chronic pain syndrome ICD-9: 338.4 ICD-10: G89.4 02/03/2016 Active Major depressive disorder, recurrent, mild ICD-9: 296.31 ICD-10: F33.0 01/06/2016 Active Mixed hyperlipidemia ICD-9: 272.4 ICD-10: E78.2 12/16/2015 Active 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 ICD-10: G45.8 08/11/2016 Active Mild cognitive impairment, so stated ICD-9: [...] fibromatosis ICD-9: 728.71 ICD-10: M72.2 03/25/2015 Active VACCIN FOR INFLUENZA ICD-9: V04.81 ICD-10: Z23 03/25/2015 Active Hyperlipidemia Unknown 01/30/2015 Active ALLERGIC [...] hydrocodone 10 mg-acetaminophen 325 mg tablet RxNorm: 480525 1 Tablet(s) PO Q6 as needed 11/06/2016 12/05/2016 Active hydrocodone 10 mg-acetaminophen 325 mg tablet RxNorm: 364139 1 Tablet(s) PO Q6 as needed 10/08/2016 11/05/2016 Inactive Voltaren 1 % topical gel RxNorm: 189169 4 Gram(s) TOP TID as needed for pain as needed 09/25/2016 09/19/2017 Active hydrocodone 10 mg-acetaminophen 325 mg tablet RxNorm: 301921 1 Tablet(s) PO Q6 as needed 09/09/2016 10/07/2016 Inactive Aricept 5 mg tablet RxNorm: 619886 1 Tablet(s) PO daily 201612/06/2016 Active Cymbalta 30 mg capsule,delayed release RxNorm: 745678 1 Capsule(s) PO daily 09/08/2016 12/06/2016 Active Voltaren 1 % topical gel RxNorm: 679815 1 Application TOP TID 09/08/2016 09/24/2016 Inactive losartan 50 mg tablet RxNorm: 391003 1 Tablet(s) PO daily 201610/07/2016 Inactive clopidogrel 75 mg tablet RxNorm: 024931 75 MG PO DAILY 2016 No Stop Date Active hydrocodone 10 mg-acetaminophen 325 mg tablet RxNorm: 374190 1 Tablet(s) PO Q6 as needed 08/15/2016 09/08/2016 Inactive hydrocodone 10 mg-acetaminophen 325 mg tablet RxNorm: 628419 1 Tablet(s) PO Q6 as needed 07/18/2016 08/14/2016 Inactive Namenda XR 28 mg capsule sprinkle,extended release RxNorm: 018571 1 Capsule(s) PO daily 07/03/2016 06/27/2017 Active Cymbalta 30 mg capsule,delayed release RxNorm: 105927 1 Capsule(s) PO daily 07/03/2016 09/07/2016 Inactive Aricept 5 mg tablet RxNorm: 860185 1 Tablet(s) PO daily 201608/01/2016 Inactive diazepam 5 mg tablet RxNorm: 201839 Tablet(s) PO daily as needed TAKE 1/2 TO 1 TABLET BY MOUTH DAILY NEEDED FOR ANXIETY 06/25/2016 08/23/2016 Inactive hydrocodone 10 mg-acetaminophen 325 mg tablet RxNorm: 959847 1 Tablet(s) PO Q6 as needed 06/19/2016 07/17/2016 Inactive Namenda XR 28 mg capsule sprinkle,extended release RxNorm: 925476 1 Capsule(s) PO daily 06/19/2016 07/02/2016 Inactive gabapentin 100 mg capsule RxNorm: 775996 1 Capsule(s) PO TID 09/29/2016 Inactive hydrocodone 10 mg-acetaminophen 325 mg tablet RxNorm: 838743 1 Tablet(s) PO Q6 as needed 05/27/2016 06/18/2016 Inactive diazepam 5 mg tablet RxNorm: 823168 Tablet(s) TAKE 1/2 TO 1 TABLET BY MOUTH DAILY NEEDED FOR ANXIETY 05/15/20162016 Inactive hydrocodone 10 mg-acetaminophen 325 mg tablet RxNorm: 143633 1 Tablet(s) PO Q6 as needed 04/29/2016 05/26/2016 Inactive omeprazole 40 mg capsule,delayed release RxNorm: 923549 Capsule(s) 1 CAPSULE(S) PO DAILY 04/28/2016 01/22/2017 Active diazepam 5 mg tablet RxNorm: 805509 Tablet(s) TAKE 1/2 TO 1 TABLET BY MOUTH DAILY NEEDED FOR ANXIETY 04/14/20162015 Inactive hydrocodone 10 mg-acetaminophen 325 mg tablet RxNorm: 801800 1 Tablet(s) PO Q6 as needed 04/01/2016 04/28/2016 Inactive Namenda XR 28 mg capsule sprinkle,extended release RxNorm: 232306 1 Capsule(s) PO daily 03/13/2016 06/18/2016 Inactive Namenda XR 28 mg capsule sprinkle,extended release RxNorm: 781127 1 Capsule(s) PO daily 03/12/2016 03/12/2016 Inactive diazepam 5 mg tablet RxNorm: 192634 Tablet(s) TAKE 1/2 TO 1 TABLET BY MOUTH DAILY NEEDED FOR ANXIETY 02/25/20162015 Inactive Namenda XR 28 mg capsule sprinkle,extended release RxNorm: 400129 1 Capsule(s) PO daily 02/04/2016 03/11/2016 Inactive hydrocodone 10 mg-acetaminophen 325 mg tablet RxNorm: 162418 1 Tablet(s) PO Q6 as needed 02/04/2016 03/04/2016 Inactive omeprazole 40 mg capsule,delayed release RxNorm: 923351 1 CAPSULE(S) PO DAILY 01/23/2016 04/27/2016 Inactive [SAVINGS FOR NON-COVERED DRUGS -- BIN:[id number], PCN: ASPROD1, Group: XXXXX, ID# XXXXXXX, Questions: . THIS IS NOT INSURANCE.] sertraline 50 mg tablet RxNorm: 484218 TAKE 1 1/2 TABLET BY MOUTH ONCE DAILY 01/10/2016 07/07/2016 Inactive hydrocodone 10 mg-acetaminophen 325 mg tablet RxNorm: 144836 1 Tablet(s) PO Q6 as needed 01/07/2016 02/03/2016 Inactive diazepam 5 mg tablet RxNorm: 239892 Tablet(s) TAKE 1/2 TO 1 TABLET BY MOUTH DAILY NEEDED FOR ANXIETY 12/17/20152015 Inactive hydrocodone 10 mg-acetaminophen 325 mg tablet RxNorm: 572629 1 Tablet(s) PO Q6 as needed 12/10/2015 01/06/2016 Inactive gabapentin 100 mg capsule RxNorm: 601276 1 Capsule(s) PO TID 03/11/2016 Inactive gabapentin 100 mg capsule RxNorm: 255239 1 Capsule(s) PO TID 11/12/2015 Inactive hydrocodone 10 mg-acetaminophen 325 mg tablet RxNorm: 741635 1 Tablet(s) PO Q6 as needed 11/12/2015 12/09/2015 Inactive hydrocodone 10 mg-acetaminophen 325 mg tablet RxNorm: 219977 1 Tablet(s) PO Q6 as needed 10/16/2015 11/11/2015 Inactive hydrocodone 10 mg-acetaminophen 325 mg tablet RxNorm: 363021 1 Tablet(s) PO Q6 as needed 09/17/2015 10/15/2015 Inactive hydrocodone 10 mg-acetaminophen 325 mg tablet RxNorm: 967733 1 Tablet(s) PO Q6 as needed 08/16/2015 09/16/2015 Inactive diazepam 5 mg tablet RxNorm: 757586 Tablet(s) TAKE 1/2 TO 1 TABLET BY MOUTH DAILY NEEDED FOR ANXIETY 07/30/20152015 Inactive diazepam 5 mg tablet RxNorm: 682682 Tablet(s) TAKE 1/2 TO 1 TABLET BY MOUTH DAILY NEEDED FOR ANXIETY 07/27/20152015 Inactive hydrocodone 10 mg-acetaminophen 325 mg tablet RxNorm: 613101 1 Tablet(s) PO Q6 as needed 07/19/2015 08/15/2015 Inactive omeprazole 40 mg capsule,delayed release RxNorm: 761850 1 CAPSULE(S) PO DAILY 07/19/2015 01/14/2016 Inactive [SAVINGS FOR NON-COVERED DRUGS -- BIN:[id number], PCN: ASPROD1, Group: XXXXX, ID# [id number], Questions: . THIS IS NOT INSURANCE.] hydrocodone 10 mg-acetaminophen 325 mg tablet RxNorm: 795196 1 Tablet(s) PO Q6 as needed 06/20/2015 07/18/2015 Inactive baclofen 10 mg tablet RxNorm: 444526 1 Tablet(s) PO TID 201506/07/2015 Inactive baclofen 10 mg tablet RxNorm: 650258 1 Tablet(s) PO TID 201507/07/2015 Inactive diazepam 5 mg tablet RxNorm: 824965 TAKE 1/2 TO 1 TABLET BY MOUTH DAILY NEEDED FOR ANXIETY 05/29/2015 07/26/2015 Inactive sertraline 50 mg tablet RxNorm: 388596 1.5 Tablet(s) PO daily 05/02/2015 10/28/2015 Inactive sertraline 50 mg tablet RxNorm: 027300 1.5 Tablet(s) PO daily 05/01/2015 05/01/2015 Inactive patient to call when needed diazepam 5 mg tablet RxNorm: 236989 1/2-1 Tablet(s) PO QDAY PRN 05/01/2015 05/29/2015 Inactive hydrocodone 10 mg-acetaminophen 325 mg tablet RxNorm: 239090 1 Tablet(s) PO Q6 as needed 04/23/2015 06/19/2015 Inactive hydrocodone 10 mg-acetaminophen 325 mg tablet RxNorm: 695855 1 Tablet(s) PO Q6 as needed 03/26/2015 04/22/2015 Inactive hydrocodone 10 mg-acetaminophen 325 mg tablet RxNorm: 920547 1 Tablet(s) PO Q6 as needed 02/26/2015 03/25/2015 Inactive Lyrica 50 mg capsule RxNorm: 364594 1 Capsule(s) PO TID 201402/03/2016 Inactive Lyrica 50 mg capsule RxNorm: 477478 1 Capsule(s) PO TID 201402/05/2015 Inactive Fish Oil [place] 3-6-9 300 mg-1,000 mg capsule,delayed release RxNorm: 1 Capsule(s) PO BID 01/30/2015 08/10/2016 Inactive diazepam 5 mg tablet RxNorm: 367798 1 Tablet(s) PO Q8 as needed 01/30/2015 04/30/2015 Inactive hydrocodone 10 mg-acetaminophen 325 mg tablet RxNorm: 128726 1 Tablet(s) PO Q6 as needed 01/19/2015 02/25/2015 Inactive sertraline 50 mg tablet RxNorm: 569388 1 Tablet(s) PO daily 04/30/2015 Inactive hydrocodone 10 mg-acetaminophen 325 mg tablet RxNorm: 557033 1 Tablet(s) PO Q6 as needed 12/12/2014 01/18/2015 Inactive hydrocodone 10 mg-acetaminophen 325 mg tablet RxNorm: 993342 1 Tablet(s) PO Q6 as needed 11/09/2014 12/11/2014 Inactive diazepam 5 mg tablet RxNorm: 869034 1 Tablet(s) PO Q8 as needed 11/01/2014 01/29/2015 Inactive omeprazole 40 mg capsule,delayed release RxNorm: 177512 1 Capsule(s) PO daily 10/02/2014 04/30/2015 Inactive [SAVINGS FOR NON-COVERED DRUGS -- BIN:[id number], PCN: ASPROD1, Group: XXXXX, ID# [id number], Questions: . THIS IS NOT INSURANCE.] omeprazole 40 mg capsule,delayed release RxNorm: 635610 1 Capsule(s) PO daily 10/02/2014 10/01/2014 Inactive Multi Vitamin oral RxNorm: oral No Start Date Active Flonase nasal RxNorm: 07039 nasal No Start Date Active atorvastatin 40 mg tablet RxNorm: 893446 1 Tablet(s) PO daily No Start Date Active Vitamin D3 oral RxNorm : 2418 oral No Start Date Active diclofenac sodium 75 mg tablet,delayed release RxNorm: 071340 2 Tablet(s) PO daily No Start Date 04/30/2015 Inactive diazepam 5 mg tablet RxNorm: 725081 1 Tablet(s) PO TID No Start Date 10/31/2014 Inactive gabapentin 100 mg tablet RxNorm: 187155 1 Tablet(s) PO TID No Start Date 02/06/2015 Inactive hydrocodone 10 mg-acetaminophen 325 mg tablet RxNorm: 181983 1 Tablet(s) PO QID No Start Date 11/08/2014 Inactive clopidogrel 75 mg tablet RxNorm: 520243 1 Tablet(s) PO daily No Start Date 09/03/2016 Inactive sertraline 50 mg tablet RxNorm: 138337 1 Tablet(s) PO daily No Start Date 01/04/2015 Inactive Medication Administered No Medication Administered data Immunizations Vaccine Codes Date Status Influenza CVX: 141 06/16/2016 completed Influenza CVX: 141 03/26/2015 completed Influenza CVX: 141 02/15/2014 completed Assessments Condition Codes Effective Dates Essential (primary) hypertension ICD-10: I10 ICD-9: 401.1 09/08/2016 Personal history of transient ischemic attack (TIA), and cerebral infarction without residual deficits ICD-10: Z86.73 ICD-9: V12.54 09/08/2016 Low back pain ICD-10: M54.5 ICD-9: 724.2 09/08/2016 Other sleep apnea ICD-10: G47.39 ICD-9: 327.29 09/08/2016 Major depressive disorder, recurrent, moderate ICD-10: F33.1 ICD-9: 296.32 09/08/2016 Mixed hyperlipidemia ICD-10: E78.2 ICD-9: 272.4 08/11/2016 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 ICD-9: 435.2 08/11/2016 Chronic pain syndrome ICD-10: G89.4 ICD-9: 338.4 07/03/2016 Major depressive disorder, recurrent, mild ICD-10: F33.0 ICD-9: 296.31 07/03/2016 Mild cognitive impairment, so stated ICD-10: G31.84 [...] 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 ICD-9: 728.71 03/26/2015 VACCIN FOR INFLUENZA ICD-10: Z23 ICD-9: V04.81 03/26/2015 Chronic pain syndrome ICD-9: 338.4 2014 Hyperlipidemia ICD-9: 272.4 01/30/2015 ALLERGIC RHINITIS ICD-9: 477.9 2014 Elevated blood sugar ICD-9: 790.29 2014 Peripheral neuropathy ICD-9: 356.9 2014 ESOPHAGEAL REFLUX ICD-9: 530.81 2014 OSTEOARTH NOS-UNSPEC ICD-9: 715.90 2014 DEPRESSIVE DISORDER NEC ICD-9: 311 2014 Reason For Visit Reason For Visit Effective Dates Notes abnormal bleeding and bruising 09/08/2016 Hospital Follow Up 08/11/2016 back pain 07/03/2016 back pain 06/19/2016 back pain 02/04/2016 back pain 01/07/2016 back pain 12/17/2015 back pain 10/16/2015 back pain 08/16/2015 Annual Medicare Wellness Exam 07/06/2015 fatigue 06/07/2015 fatigue 05/01/2015 foot pain 03/26/2015 foot pain 03/13/2015 right back pain 01/30/2015 back pain 10/16/2014 Results Observation Observation Code Item Item Code Result Date Comp Metabolic Dde667 NA 142 mEq/L 09/03/2016 Comp Metabolic Sby345 K 3.9 mEq/L 09/03/2016 Comp Metabolic Xeb016 CL 107 mEq/L 09/03/2016 Comp Metabolic Bpc614 CO2 26.0 mEq/L 09/03/2016 Comp Metabolic Mzs802 ANION GAP 13 09/03/2016 Comp Metabolic Nzb523 GLUCOSE 107 mg/dL 09/03/2016 Comp Metabolic Bbi156 Creat 0.7 mg/dL 09/03/2016 Comp Metabolic Hfc987 eGFR 85 ml/min/1.73m2 09/03/2016 Comp Metabolic Vga525 BUN 16 mg/dL 09/03/2016 Comp Metabolic Ukn846 B/C Ratio 21.9 Ratio 09/03/2016 Comp Metabolic Pbx460 CALCIUM 8.8 mg/dL 09/03/2016 Comp Metabolic Klz782 ALK PHOS 51 U/L 09/03/2016 Comp Metabolic Cab648 AST(SGOT) 24 U/L 09/03/2016 Comp Metabolic Zje719 ALT(SGPT) 20 U/L 09/03/2016 Comp Metabolic Kle323 BILI T 0.7 mg/dL 09/03/2016 Comp Metabolic Kij735 ALBUMIN 4.1 g/dL 09/03/2016 Comp Metabolic Uie424 TPRO 6.1 g/dL 09/03/2016 Comp Metabolic Ewt537 GLOB 2.0 g/dL 09/03/2016 Comp Metabolic Nlk801 A/G Ratio 2.1 Ratio 09/03/2016 Comp Metabolic Kuq522 Osmo 285 mOsmo 09/03/2016 Cbc With Differential [...] 30.3 pg 09/03/2016 Cbc With Differential Ord2 [place]% 6.5 % 09/03/2016 Cbc With Differential Ord2 [...] 1.53 K/ul 09/03/2016 Cbc With Differential Ord2 [place] ABS# 0.4 K/ul 09/03/2016 Cbc With Differential [...] Ord15 CALCIUM 9.1 mg/dL 12/21/2015 Comp Metabolic Hil753 NA 138 mEq/L 07/06/2015 Comp Metabolic Nji022 K 3.9 mEq/L 07/06/2015 Comp Metabolic Fxj832 CL 103 mEq/L 07/06/2015 Comp Metabolic Ied283 CO2 28.0 mEq/L 07/06/2015 Comp Metabolic Agq397 ANION GAP 11 07/06/2015 Comp Metabolic Kzl811 GLUCOSE 114 mg/dL 07/06/2015 Comp Metabolic Gnq375 Creat 0.7 mg/dL 07/06/2015 Comp Metabolic Hnn974 eGFR 97 ml/min/1.73m2 07/06/2015 Comp Metabolic Kxy314 BUN 11 mg/dL 07/06/2015 Comp Metabolic Fvc704 B/C Ratio 16.9 Ratio 07/06/2015 Comp Metabolic Mko096 CALCIUM 9.1 mg/dL 07/06/2015 Comp Metabolic Rcc280 ALK PHOS 57 U/L 07/06/2015 Comp Metabolic Kxu378 AST(SGOT) 26 U/L 07/06/2015 Comp Metabolic Jfa759 ALT(SGPT) 17 U/L 07/06/2015 Comp Metabolic Teu351 BILI T 0.6 mg/dL 07/06/2015 Comp Metabolic Nla659 ALBUMIN 4.6 g/dL 07/06/2015 Comp Metabolic Xdx386 TPRO 6.7 g/dL 07/06/2015 Comp Metabolic Yda715 GLOB 2.1 g/dL 07/06/2015 Comp Metabolic Jwt808 A/G Ratio 2.2 Ratio 07/06/2015 Comp Metabolic Quf539 Osmo 276 mOsmo 07/06/2015 Lipid Ord30 CHOL 228 mg/dL 07/06/2015 Lipid Ord30 HDL 48.0 mg/dl 07/06/2015 Lipid Ord30 TRIG 176 mg/dL 07/06/2015 Lipid Ord30 LDL 145 mg/dL 07/06/2015 Lipid Ord30 C/HDL 4.8 Ratio 07/06/2015 Tsh Ord6 hTSH II 0.74 uIU/mL 05/01/2015 Comp Metabolic Gbj718 NA 141 mEq/L 05/01/2015 Comp Metabolic Fsr734 K 4.0 mEq/L 05/01/2015 Comp Metabolic Pip862 CL 106 mEq/L 05/01/2015 Comp Metabolic Fez802 CO2 26.0 mEq/L 05/01/2015 Comp Metabolic Vtd386 ANION GAP 13 05/01/2015 Comp Metabolic Ufn761 GLUCOSE 124 mg/dL 05/01/2015 Comp Metabolic Pdq207 Creat 0.8 mg/dL 05/01/2015 Comp Metabolic Fvi618 eGFR 79 ml/min/1.73m2 05/01/2015 Comp Metabolic Bhs911 BUN 13 mg/dL 05/01/2015 Comp Metabolic Zxm217 B/C Ratio 16.7 Ratio 05/01/2015 Comp Metabolic Cbe255 CALCIUM 9.3 mg/dL 05/01/2015 Comp Metabolic Yxj437 ALK PHOS 54 U/L 05/01/2015 Comp Metabolic Tha553 AST(SGOT) 21 U/L 05/01/2015 Comp Metabolic Vtg432 ALT(SGPT) 14 U/L 05/01/2015 Comp Metabolic Kan825 BILI T 0.5 mg/dL 05/01/2015 Comp Metabolic Apl013 ALBUMIN 4.5 g/dL 05/01/2015 Comp Metabolic Pyi155 TPRO 6.4 g/dL 05/01/2015 Comp Metabolic Jnl207 GLOB 1.9 g/dL 05/01/2015 Comp Metabolic Ixx266 A/G Ratio 2.4 Ratio 05/01/2015 Comp Metabolic Evd729 Osmo 283 mOsmo 05/01/2015 Cbc With Differential [...] Differential Ord2 RDW 16.8 % 05/01/2015 %Hba1C Yhb802 % HbA1c 17043-6 5.4 % 01/29/2015 %Hba1C Tlc724 Gluc Ave 108 mg/dL 01/29/2015 Lipid Ord30 CHOL 221 mg/dL 01/26/2015 Lipid Ord30 HDL 37.0 mg/dl 01/26/2015 Lipid Ord30 TRIG 274 mg/dL 01/26/2015 Lipid Ord30 LDL 129 mg/dL 01/26/2015 Lipid Ord30 C/HDL 6.0 Ratio 01/26/2015 Tsh Ord6 hTSH II 0.85 uIU/mL 01/26/2015 Comp Metabolic Fdf555 NA 137 mEq/L 01/26/2015 Comp Metabolic Ykm142 K 4.0 mEq/L 01/26/2015 Comp Metabolic Tlu291 CL 104 mEq/L 01/26/2015 Comp Metabolic Pzl664 CO2 27.0 mEq/L 01/26/2015 Comp Metabolic Ppz581 ANION GAP 10 01/26/2015 Comp Metabolic Gyw618 GLUCOSE 131 mg/dL 01/26/2015 Comp Metabolic Ayv245 Creat 0.8 mg/dL 01/26/2015 Comp Metabolic Smz378 eGFR 77 ml/min/1.73m2 01/26/2015 Comp Metabolic Itp355 BUN 16 mg/dL 01/26/2015 Comp Metabolic Juc241 B/C Ratio 20.0 Ratio 01/26/2015 Comp Metabolic Fkl431 CALCIUM 9.1 mg/dL 01/26/2015 Comp Metabolic Jgl958 ALK PHOS 66 U/L 01/26/2015 Comp Metabolic Xsi622 AST(SGOT) 24 U/L 01/26/2015 Comp Metabolic Sng072 ALT(SGPT) 20 U/L 01/26/2015 Comp Metabolic Vmb662 BILI T 0.4 mg/dL 01/26/2015 Comp Metabolic Fcm820 ALBUMIN 4.2 g/dL 01/26/2015 Comp Metabolic Vaq136 TPRO 6.4 g/dL 01/26/2015 Comp Metabolic Vkt336 GLOB 2.2 g/dL 01/26/2015 Comp Metabolic Dkz897 A/G Ratio 1.9 Ratio 01/26/2015 Comp Metabolic Lgh520 Osmo 277 mOsmo 01/26/2015 Cbc With Differential [...] Differential Ord2 RDW 15.5 % 01/26/2015 B12 Dag272 B12 669.00 pg/ml 01/26/2015 Review of Systems System Result Effective Dates Constitutional No recent illness 2016 Constitutional No [...] Dates Notes Full Exam - General 1994 Constitutional general [...] clear 08/11/2016 None Full Exam - General 1995 Ears/Nose/Throat lips/teeth/gingiva Overall: benign lips 08/11/2016 None Full Exam - General 1994 Ears/Nose/Throat lips/teeth/gingiva Overall: normal dentition 08/11/2016 None Full Exam - General 1995 Ears/Nose/Throat oral cavity/pharynx/larynx Overall: oral mucosa clear 08/11/2016 None Full Exam - General 1994 Ears/Nose/Throat oral cavity/pharynx/larynx Overall: oropharyngeal mucosa clear 08/11/2016 None Full Exam - General 1995 Ears/Nose/Throat oral cavity/pharynx/larynx Overall: hypopharynx benign 08/11/2016 [...] Exam - General 1995 Ears/Nose/Throat lips/teeth/gingiva Overall: benign lips 06/19/2016 None Full Exam - General 1995 Ears/Nose/Throat lips/teeth/gingiva Overall: normal dentition 06/19/2016 None Full Exam - General 1994 Ears/Nose/Throat oral cavity/pharynx/larynx Overall: oral mucosa clear 06/19/2016 None Full Exam - General 1994 Ears/Nose/Throat oral cavity/pharynx/larynx Overall: oropharyngeal mucosa clear 06/19/2016 None Full Exam - General 1995 Ears/Nose/Throat oral cavity/pharynx/larynx Overall: hypopharynx benign 06/19/2016 [...] benign 06/19/2016 None Full Exam - General 1995 Musculoskeletal spine, ribs and pelvis Spine: tender [...] Orientation: What is the year/season/date/day/month (5): 5 01/07/2016 None Full Exam - [...] affect 10/16/2014 None Procedures Procedure Codes Date INITIAL PREVENTIVE EXAM CPT-4: [id number] IIV4 FLU VACC NO PRESERV ID Formatting Model/CDA Sections, Assigned to SNOMED CT: [id number] CPT-4: 07496Snjhght 03/26/2015 IMMUNIZATION ADMIN CPT-4: 99725Oprsylo 01/2015 Vital Signs Date Vital 09/08/2016 Blood Pressure 1: 162/80 Code : 8480-6 Blood Pressure 2: 145/90 Code: 8480-6 BMI: 24.7 Code: 84115-0 Heart Rate 1: 77 bpm Height: 5'1" SpO2: 97% Weight: 130 lbs 8 oz 08/11/2016 Blood Pressure 1: 130/80 Code : 8480-6 BMI: 25.9 Code : 66842-4 Heart Rate 1 : 62 bpm Height: 5'1" SpO2: 97% Weight: 137 lbs 07/03/2016 Blood Pressure 1: 134/74 Code : 8480-6 BMI: 26.8 Code : 99245-1 Heart Rate 1 : 74 bpm Height: 5'1" SpO2: 97% Weight: 142 lbs 06/19/2016 Blood Pressure 1: 118/66 Code : 8480-6 Heart Rate 1: 72 bpm SpO2: 96% Weight: 142 lbs 02/04/2016 Blood Pressure 1: 130/80 Code : 8480-6 BMI: 27.2 Code : 06881-6 Heart Rate 1 : 76 bpm Height: 5'1" SpO2: 96% Weight: 144 lbs 01/07/2016 Blood Pressure 1: 136/64 Code : 8480-6 BMI: 27.6 Code : 02475-5 Heart Rate 1 : 73 bpm Height: 5'1" SpO2: 987% Weight: 146 lbs 12/17/2015 Blood Pressure 1: 128/86 Code : 8480-6 BMI: 27.0 Code : 02741-0 Heart Rate 1 : 59 bpm Height: 5'1" SpO2: 96% Weight: 143 lbs 10/16/2015 Blood Pressure 1: 122/78 Code : 8480-6 BMI: 25.7 Code : 68467-3 Heart Rate 1 : 71 bpm Height: 5'1" SpO2: 96% Weight: 136 lbs 08/16/2015 Blood Pressure 1: 138/88 Code : 8480-6 BMI: 27.0 Code : 61382-6 Heart Rate 1 : 75 bpm Height: 5'1" SpO2: 98% Weight: 143 lbs 07/06/2015 Blood Pressure 1: 120/72 Code : 8480-6 BMI: 26.5 Code : 33692-1 Heart Rate 1 : 72 bpm Height: 5'1" SpO2: 96% Weight: 140 lbs 06/07/2015 Blood Pressure 1: 152/86 Code : 8480-6 BMI: 26.1 Code : 90743-9 Heart Rate 1 : 88 bpm Height: 5'1" SpO2: 97% Weight: 138 lbs 05/01/2015 Blood Pressure 1: 120/80 Code : 8480-6 BMI: 27.0 Code : 18161-6 Heart Rate 1 : 82 bpm Height: 5'1" SpO2: 98% Temperature: 36.7 (C) / 98.0 (F) Weight: 143 lbs 03/26/2015 Blood Pressure 1: 140/80 Code : 8480-6 BMI: 28.0 Code : 87914-1 Heart Rate 1 : 69 bpm Height: 5'1" SpO2: 96% Weight: 148 lbs 03/13/2015 Blood Pressure 1: 128/70 Code : 8480-6 BMI: 28.2 Code : 16619-1 Heart Rate 1 : 76 bpm Height: 5'1" Weight: 149 lbs 01/30/2015 Blood Pressure 1: 142/68 Code : 8480-6 BMI: 28.7 Code : 10592-5 Heart Rate 1 : 86 bpm Height: 5'1" SpO2: 96% Weight: 152 lbs 10/16/2014 Blood Pressure 1: 160/88 Code : 8480-6 BMI: 28.2 Code : 04883-7 Heart Rate 1 : 66 bpm Height: 5'1" Weight: 149 lbs Functional Status No Functional Status data History of Present Illness Symptom Name Status Result Effective Date Notes abnormal bleeding and bruising Quality acute 09/08/2016 [...] data Encounters Encounter Performer Location Codes Date ) 66601 EST. PATIENT, LEVEL IV Diagnosis: Essential (primary) hypertension[ICD10: I10] Diagnosis: Low back pain[ICD10: M54.5] Diagnosis: Personal history of transient ischemic attack (TIA), and cerebral infarction without residual deficits[ICD10: Z86.73] Diagnosis: Major depressive disorder, recurrent, moderate[ICD10: F33.1] Diagnosis: Other sleep apnea[ICD10: G47.39] Marylu Ochoa MD, [facility] CPT-4: 47764 09/08/2016 ([id number]) 39103 EST. PATIENT, LEVEL IV Diagnosis: Mixed hyperlipidemia[ICD10: E78.2] Diagnosis: Other transient cerebral ischemic attacks and related syndromes[ICD10 : G45.8] Marylu Ochoa MD, [facility] CPT-4: 23473 2016 94608 EST. PATIENT, LEVEL III Diagnosis: Chronic pain syndrome[ICD10: G89.4] Diagnosis: Low back pain[ICD10: M54.5] Diagnosis: Major depressive disorder, recurrent, mild[ICD10: F33.0] Diagnosis: Mild cognitive impairment, so stated[ICD10: G31.84] Angelica Ochoa MD, [facility] CPT-4: 88431 07/03/2016 ([id number]) [id number] EST. PATIENT, LEVEL III Diagnosis: Chronic pain syndrome[ICD10: G89.4] Donna Ochoa MD, [facility] CPT-4: 09810 06/19/2016 ([id number]) [id number] EST. PATIENT, LEVEL IV Diagnosis: Chronic pain syndrome[ICD10: G89.4] Diagnosis: Mild cognitive impairment, so stated[ICD10: G31.84] Donna Ochoa MD, [facility] CPT-4: 76118 02/04/2016 ([id number]) [id number] EST. PATIENT, LEVEL IV Diagnosis: Chronic pain syndrome[ICD10: G89.4] Diagnosis: Mild cognitive impairment, so stated[ICD10: G31.84] Diagnosis: Major depressive disorder, recurrent, mild[ICD10: F33.0] Donna Ochoa MD , [facility] CPT-4: 49854 01/07/2016 ([id number]) 69921 EST. PATIENT, LEVEL IV Diagnosis: Chronic pain syndrome[ICD10: G89.4] Diagnosis: Headache[ICD10: R51] Diagnosis: Major depressive disorder, recurrent, mild[ICD10: F33.0] Diagnosis: Mixed hyperlipidemia[ICD10: E78.2] Donna Ochoa MD, [facility] CPT-4: 79747 12/17/2015 ([id number]) 78503 EST. PATIENT, LEVEL III Diagnosis: Chronic pain syndrome[ICD10: G89.4] Diagnosis: Major depressive disorder, recurrent, mild[ICD10: F33.0] Donna Ochoa MD [facility] CPT-4: 23121 10/16/2015 ([id number]) 28203 EST. PATIENT, LEVEL III Diagnosis: Low back pain[ICD10: M54.5] Donna Ochoa MD [facility] CPT-4: 68238 08/16/2015 ([id number]) 48201 EST. 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 PATIENT, LEVEL IV Diagnosis: Major depressive disorder, recurrent, mild[ICD10: F33.0] Diagnosis: Chronic pain syndrome[ICD10: G89.4] Diagnosis: Other fatigue[ICD10: R53.83] Donna Ochoa MD [facility] CPT-4: 36770 05/01/2015 ([id number]) 33429 EST. PATIENT, LEVEL II Diagnosis: Plantar fascial fibromatosis[ICD10: M72.2] Donna Ochoa MD, [facility] CPT-4: 40248 03/26/2015 ([id number]) 74687 EST. PATIENT, LEVEL III Diagnosis: Plantar fascial fibromatosis[ICD10: M72.2] Donna Ochoa MD, [facility] CPT-4: 03957 03/13/2015 ([id number]) 42624 EST. PATIENT, LEVEL III Diagnosis: Hyperlipidemia[ICD9: 272.4] Diagnosis: ALLERGIC RHINITIS[ICD9: 477.9] Diagnosis: Chronic pain syndrome[ICD9: 338.4] Donna Ochoa MD, [facility] CPT-4: 96965 01/30/2015 ([id number]) OFFICE VISIT, NEW - LEVEL 4 Diagnosis: ESOPHAGEAL REFLUX[ICD9: 530.81] Diagnosis: Peripheral neuropathy[ICD9: 356.9] Diagnosis: Chronic pain syndrome[ICD9: 338.4] Diagnosis: OSTEOARTH NOS-UNSPEC[ICD9: 715.90] Diagnosis: DEPRESSIVE DISORDER NEC[ICD9: 311] Marylu Ochoa MD, [facility] CPT-4: 23533 10/16/2014 Plan of Care Planned Activity Notes Codes Status Date Appointment: Angelica Cuba WPtel: [address] [place], [place] [id number] (30 min) Complex 10/09/2016 Visit Plan: Hypertension [...] the office next week for practitioner to review.The pt is to call for acute concerns.Add 50 mg Losartan daily for hypertensionChronic Depression and anxiety - the pt has symptoms of chronic anxiety and depression that have been fairly well controlled since the last office visit. The pt has expected periods of exacerbation with abatement of the symptoms with change in situational exposure. No change in current medications. Refill CymbaltaOA - Voltaren gel for low back painMemory loss - 90 day supply of Aricept through [facility], refill namenda 09/08/2016 Visit Plan: Hypertension - [...] the office next week for practitioner to review.The pt is to call for acute concerns.Add 50 mg Losartan daily for hypertensionChronic Depression and anxiety - the pt has symptoms of chronic anxiety and depression that have been fairly well controlled since the last office visit. The pt has expected periods of exacerbation with abatement of the symptoms with change in situational exposure. No change in current medications. Refill CymbaltaOA - Voltaren gel for low back painMemory loss - 90 day supply of Aricept through [employer], refill namendaSuspected sleep disordered breathing with episodes of nocturnal fits of not breathing correctly - pt advised of need for an overnight oxygen study to be done to see if there is nocturnal hypoxemia contributing to her memory loss, htn. 09/08/2016 Appointment: Marylu Ochoa WPtel: [facility] (15 min) Moderate 09/08/2016 Patient Education: Patient Medication Summary Completed 09/08/2016 Appointment: Angelica Cuba WPtel: [phone] (30 min) Complex 08/19/2016 Visit Plan: Hyperlipidemia [...] and to assure normal liver response to medications.TIA - continue with plavix 08/11/2016 Appointment: Marylu Ochoa WPtel: [facility] (15 min) Moderate 08/11/2016 Patient Education: Patient Medication Summary Completed 08/11/2016 Visit Plan: Chronic Pain Syndrome - pt has chronic pain - has been maintained on current medications, has not sought out other medications, only uses PRN pain medications as directed, and understands the consequences of over- medication.Chronic Depression and anxiety - the pt has symptoms of chronic anxiety and depression that have been fairly well controlled since the last office visit. The pt has expected periods of exacerbation with abatement of the symptoms with change in situational exposure. No change in current medications.Cognitive impairment - Pt and are concerned memory loss is worsening - will add RX - pt is to notify clinic with any questions or concerns. 07/03/2016 Appointment: Angelica Cuba WPtel: [facility] [place] (30 min) Complex 07/03/2016 Patient Education: Patient Medication Summary Completed 07/03/2016 Care Plan: Referral Order SNOMED-CT : [id number] Pending 07/03/2016 Visit Plan: Chronic Pain Syndrome - pt has chronic pain - has been maintained on current medications, has not sought out other medications, only uses PRN pain medications as directed, and understands the consequences of over- medication. 06/19/2016 Appointment: Donna Walden WPtel: [phone] [place] (30 min) Complex 06/19/2016 Patient Education: Patient Medication Summary Completed 06/19/2016 Appointment: Donna Walden WPtel: [phone] [place] (30 min) Complex 06/05/2016 Visit Plan: Chronic Pain Syndrome - pt has chronic pain - has been maintained on current medications, has not sought out other medications, only uses PRN pain medications as directed, and understands the consequences of over- medication.Mild cognitive impairment-discussed with Dr Ochoa-Judson wilsoner pack 02/04/2016 Appointment: Donna Walden WPtel: [phone] [place] (30 min) Complex 02/04/2016 Patient Education: Patient Medication Summary Completed 02/04/2016 Appointment: Donna Walden WPtel: [facility] [place] [id number] (30 min) Complex 01/14/2016 Visit Plan: Chronic Depression and anxiety - the pt has symptoms of chronic anxiety and depression that have been fairly well controlled since the last office visit. The pt has expected periods of exacerbation with abatement of the symptoms with change in situational exposure. No change in current medications.Chronic Pain Syndrome - pt has chronic pain - has been maintained on current medications, has not sought out other medications, only uses PRN pain medications as directed, and understands the consequences of over- medication.Mild Cognitive Impairment - discussed with pt and family the diagnosis, pt is not yet in category of dementia, but is in danger of approaching that level of memory loss. Treatment modalities have been discussed and pt is considering different treatment options. We will follow up with treatment at next office visit after review of testing. 01/07/2016 Appointment: Donna Walden WPtel: [address] [place], [place] [id number] [place] [address] (15 min) Moderate 01/07/2016 Patient Education: Patient Medication Summary Completed 01/07/2016 Visit Plan: Chronic Pain Syndrome - pt has chronic pain - has been maintained on current medications, has not sought out other medications, only uses PRN pain medications as directed, and understands the consequences of over- medication.Headaches-memory loss-schedule MRI brainHyperlipidemia-check fasting labs Nojlpmssre-sxfuqo-ch change in medications at this time 12/17/2015 Patient Education: Patient Medication Summary Completed 12/17/2015 Appointment: Donna Walden WPtel: [address] [place], [place] [id number] (30 min) Complex 12/13/2015 Visit Plan: Chronic Pain Syndrome - pt has chronic pain - has been maintained on current medications, has not sought out other medications, only uses PRN pain medications as directed, and understands the consequences of over- medication.Chronic Depression and anxiety - the pt has symptoms of chronic anxiety and depression that have been fairly well controlled since the last office visit. The pt has expected periods of exacerbation with abatement of the symptoms with change in situational exposure. No change in current medications. 10/16/2015 Appointment: Donna Walden WPtel: [phone] (30 min) Complex 10/16/2015 Patient Education: Patient [...] directed, and understands the consequences of over- medication.Chronic Depression and anxiety - the pt has symptoms of chronic anxiety and depression that have been fairly well controlled since the last office visit. The pt has expected periods of exacerbation with abatement of the symptoms with change in situational exposure. No change in current medications.Arthritis- occasionally uncontrolled symptoms- recommend pt to take antiinflammatory as directed for pain control.Use tylenol for break through pain symptoms. 06/07/2015 Appointment: [facility]el[phone] (15 min) Moderate 06/07/2015 Patient Education: Patient Medication Summary Completed 06/07/2015 Visit Plan: Chronic Pain Syndrome - pt has chronic pain - has been maintained on current medications, has not sought out other medications, only uses PRN pain medications as directed, and understands the consequences of over- medication.Chronic Depression and anxiety - the pt has symptoms of chronic anxiety and depression that have been fairly well controlled since the last office visit. The pt has expected periods of exacerbation with abatement of the symptoms with change in situational exposure. No change in current medications.Fatigue-check labs 05/01/2015 Appointment: (15 min) Moderate 05/01/2015 [...] supportive shoes -discussed inserts and referral to manufacturing plant manager-patient wants to wait but will let us [...] and to assure normal liver response to medications.Allergies - chronic - recommended pt to use allergy medication as prescribed. Pt has been counseled as to the appropriate use of the medication. Pt to call if allergy symptoms are not controlled with the medication.If using nasal spray, instructions as follows: Nasal [...] - all of which can exacerbate esophageal reflux.The patient is to take medications as prescribed and call the office if the symptoms are not improving.Chronic Pain Syndrome - pt has chronic pain - has been maintained on current medications, has not sought out other medications, only uses PRN pain medications as directed , and understands the consequences of over-medication.Chronic Depression and anxiety - the pt has symptoms of chronic anxiety and depression that have been fairly well controlled since the last office visit. The pt has expected periods of exacerbation with abatement of the symptoms with change in situational exposure. No change in current medications.Arthritis- occasionally uncontrolled symptoms- recommend pt to take antiinflammatory as directed for pain control.Use tylenol for break through pain symptoms. 10/16/2014 Appointment: Marylu Ochoa WPtel: [address] [place], [place] [id number] [place] (S) New Patient 10/16/2014 Patient Education: Patient Medication Summary Completed 10/16/2014 Patient Education: Hypertension Completed 10/16/2014 Referral: Betsy Samuels Referral Initiated Instructions Comment . Plantar fasciitis- pt was [...] supportive shoes -discussed inserts and referral to manufacturing plant manager-patient wants to wait but will let us [...] and to maintain independece in the home. INCREASE SERTRALINE TO 1.5 TABLETS DAILY [...] Headaches-memory loss-schedule MRI brain Hyperlipidemia-check fasting labs Ipvhdxrhje-tmhweg-mn change in medications at this time . Esophageal Reflux - the patient has [...] patient - she is to schedule in [place] . Chronic Pain Syndrome - pt has [...] 90 day supply of Aricept through [facility] Add 50 mg Losartan daily for hypertension [...] 90 day supply of Aricept through [facility] Add 50 mg Losartan daily for hypertension [...] of Aricept through [facility], refill namenda Suspected sleep disordered breathing with [...] notify clinic with any questions or concerns. . Chronic Depression and anxiety - [...] patient's termination from this medical practice. Judson tam . Chronic Pain Syndrome - pt has chronic pain - has been maintained on current medications, has not sought out other medications, only uses PRN pain medications as directed, and understands the consequences of over-medication. Mild cognitive impairment-discussed with Dr Ochoa-Judson tam . Chronic Pain Syndrome - pt has chronic pain - has been maintained on current medications, has not sought out other medications, only uses PRN pain medications as directed, and understands the consequences of over- medication.
--- NOTE | 2018-09-20 05:18 | NUR ---
RETURN FROM CT.
--- OUTSIDE RECORDS SUMMARY | 2018-09-20 05:18 | XMS REPORT | CCD ---
Author Author Marylu Ochoa Organization Marylu Ochoa MD, [facility] Address [address] [place] [address] Phone Care Team Providers Care Film Reader Name Role Phone PP Unavailable CCM Unavailable Summary Purpose Interface Exchange Insurance Providers Payer name Policy type / Coverage type Covered republican ID Effective Begin Date Effective End Date WPS Medicare Part B Medicare Part B [id number] 2015 Unknown [facility] Medicare Part B [id number] 2015 Unknown Family history Mother Diagnosis Age [...] Unknown Retired 10/16/[address]: 059375914 Never smoker 10/16/[address]: 093038845 Never drinks alcohol 10/16/2014 Allergies, Adverse Reactions, Alerts Substance Reaction Codes Entered Date Inactivated Date Status Penicillin Unknown 10/16/2014 No Inactive Date Active Past Medical History Illness Codes Condition Status Onset Date Resolved Date Other allergic rhinitis ICD-9: 477.8 ICD-10: J30.89 Active 12/29/2017 Unknown Dementia in other diseases classified elsewhere without behavioral disturbance ICD-9: 294.10 ICD-10: F02.80 Active 10/28/2017 Unknown Encounter for immunization ICD-9: V04.81 ICD-10: Z23 Active 03/25/2015 Unknown Generalized anxiety disorder ICD-9: 300.00 ICD-10: F41.1 Active 03/18/2017 Unknown Major depressive disorder, recurrent, mild ICD-9: 296.31 ICD-10: F33.0 Active 01/06/2016 Unknown Other insomnia ICD-9: 327.09 ICD-10: G47.09 Active 02/22/2018 Unknown Allergy to other foods ICD-9: V15.05 ICD-10: Z91.018 Active 10/28/2017 Unknown Pain in unspecified joint ICD-9: 719.40 ICD-10: M25.50 Active 11/03/2017 Unknown Essential (primary) hypertension ICD-9: 401.1 ICD-10: I10 Active 09/08/2016 Unknown Major depressive disorder, recurrent, moderate ICD-9: [...] ICD-9: 338.4 ICD-10: G89.4 Active 02/03/2016 Unknown Mixed hyperlipidemia ICD-9: 272.4 ICD-10: E78.2 [...] Problems Condition Codes Effective Dates Condition Status Other allergic rhinitis ICD-9: 477.8 ICD-10: J30.89 12/29/2017 Active Dementia in other diseases classified elsewhere without behavioral disturbance ICD-9: 294.10 ICD-10: F02.80 10/28/2017 Active Encounter for immunization ICD-9: V04.81 ICD-10: Z23 03/25/2015 Active Generalized anxiety disorder ICD-9: 300.00 ICD-10: F41.1 03/18/2017 Active Major depressive disorder, recurrent, mild ICD-9: 296.31 ICD-10: F33.0 01/06/2016 Active Other insomnia ICD-9: 327.09 ICD-10: G47.09 02/22/2018 Active Allergy to other foods ICD-9: V15.05 ICD-10: Z91.018 10/28/2017 Active Pain in unspecified joint ICD-9: 719.40 ICD-10: M25.50 11/03/2017 Active Essential (primary) hypertension ICD-9: 401.1 ICD-10: I10 09/08/2016 Active Major depressive disorder, recurrent, moderate ICD-9: [...] syndrome ICD-9: 338.4 ICD-10: G89.4 02/03/2016 Active Mixed hyperlipidemia ICD-9: 272.4 ICD-10: E78.2 [...] hydrocodone 10 mg-acetaminophen 325 mg tablet RxNorm: 559644 1 Tablet(s) PO Q6 as needed 07/29/2018 08/27/2018 Inactive levocetirizine 5 mg tablet RxNorm: 400776 1 Tablet(s) PO QHS 08/27/2018 Inactive hydrocodone 10 mg-acetaminophen 325 mg tablet RxNorm: 233915 1 Tablet(s) PO Q6 as needed 07/07/2018 07/28/2018 Inactive hydrocodone 10 mg-acetaminophen 325 mg tablet RxNorm: 983526 1 Tablet(s) PO Q6 as needed 06/08/2018 07/06/2018 Inactive Cymbalta 30 mg capsule,delayed release RxNorm: 990647 1 CAPSULE(S) PO DAILY 05/07/2018 11/02/2018 Active hydrocodone 10 mg-acetaminophen 325 mg tablet RxNorm: 878877 1 Tablet(s) PO Q6 as needed may fill on 03-27-18 04/28/201802/2019 Inactive diazepam 5 mg tablet RxNorm: 238686 1/2 Tablet(s) PO QHS as needed 04/13/2018 06/11/2018 Inactive hydrocodone 10 mg-acetaminophen 325 mg tablet RxNorm: 690432 1 Tablet(s) PO Q6 as needed may fill on 03-27-18 03/22/201808/2017 Inactive Aricept 10 mg tablet RxNorm: 169600 1 TABLET(S) PO DAILY 201707/12/2018 Inactive hydrocodone 10 mg-acetaminophen 325 mg tablet RxNorm: 128400 1 Tablet(s) PO Q6 as needed 02/26/2018 03/21/2018 Inactive diazepam 5 mg tablet RxNorm: 033866 1/2 Tablet(s) PO QHS as needed 02/22/2018 03/22/2018 Inactive hydrocodone 10 mg-acetaminophen 325 mg tablet RxNorm: 282108 1 Tablet(s) PO Q6 as needed 02/05/2018 02/25/2018 Inactive levetiracetam 500 mg tablet RxNorm: 054638 1 TABLET(S) PO BID 01/07/2018 04/06/2018 Inactive pt to finish out supply of liquid then start on tablets hydrocodone 10 mg-acetaminophen 325 mg tablet RxNorm: 037526 1 Tablet(s) PO Q6 as needed 12/29/2017 01/27/2018 Inactive hydrocodone 10 mg-acetaminophen 325 mg tablet RxNorm: 740861 1 Tablet(s) PO Q6 as needed 12/10/2017 12/28/2017 Inactive Zyrtec 10 mg tablet RxNorm: 1039584 1 Tablet(s) PO QAM for allergies 10/28/2017 05/25/2018 Inactive Zantac 75 mg tablet RxNorm: 908179 1 Tablet(s) PO BID 201702/24/2018 Inactive Aricept 10 mg tablet RxNorm: 325971 1 TABLET(S) PO DAILY 201702/23/2018 Inactive Cymbalta 30 mg capsule,delayed release RxNorm: 108812 1 Capsule(s) PO daily 10/22/2017 05/06/2018 Inactive hydrocodone 10 mg-acetaminophen 325 mg tablet RxNorm: 056152 1 Tablet(s) PO Q6 as needed 10/20/2017 11/18/2017 Inactive Voltaren 1 % topical gel RxNorm: 018679 4 Gram(s) TOP TID as needed for pain as needed 09/23/2017 09/17/2018 Active levetiracetam 500 mg tablet RxNorm: 849492 1 TABLET(S) PO BID 09/21/2017 10/20/2017 Inactive pt to finish out supply of liquid then start on tablets hydrocodone 10 mg-acetaminophen 325 mg tablet RxNorm: 862255 1 Tablet(s) PO Q6 as needed 08/27/2017 09/25/2017 Inactive Aricept 10 mg tablet RxNorm: 735470 1 Tablet(s) PO daily 201709/16/2017 Inactive Aricept 10 mg tablet RxNorm: 146228 1 Tablet(s) PO daily 201708/17/2017 Inactive hydrocodone 10 mg-acetaminophen 325 mg tablet RxNorm: 293963 1 Tablet(s) PO Q6 as needed 07/28/2017 08/26/2017 Inactive Zithromax Z-Myles 250 mg tablet RxNorm: 391896 1 Tablet(s) PO UD 06/25/2017 09/20/2017 Inactive hydrocodone 10 mg-acetaminophen 325 mg tablet RxNorm: 347318 1 Tablet(s) PO Q6 as needed 06/17/2017 07/16/2017 Inactive Namenda XR 28 mg capsule sprinkle,extended release RxNorm: 014237 1 Capsule(s) PO daily 05/08/2017 05/02/2018 Inactive Aricept 10 mg tablet RxNorm: 098070 1 Tablet(s) PO daily 201608/05/2017 Inactive hydrocodone 10 mg-acetaminophen 325 mg tablet RxNorm: 841409 1 Tablet(s) PO Q6 as needed 05/05/2017 06/03/2017 Inactive hydrocodone 10 mg-acetaminophen 325 mg tablet RxNorm: 325789 1 Tablet(s) PO Q6 as needed 04/06/2017 05/04/2017 Inactive diazepam 2 mg tablet RxNorm: 632983 1/2 - 1 Tablet(s) PO BID as needed 03/18/2017 09/20/2017 Inactive Cymbalta 30 mg capsule,delayed release RxNorm: 930793 1 Capsule(s) PO daily 03/09/2017 10/04/2017 Inactive levetiracetam 500 mg tablet RxNorm: 962101 1 Tablet(s) PO BID 03/09/2017 08/05/2017 Inactive pt to finish out supply of liquid then start on tablets Aricept 5 mg tablet RxNorm: 758364 1 Tablet(s) PO daily 201605/07/2017 Inactive pantoprazole 40 mg tablet,delayed release RxNorm: 133865 1 Tablet(s) PO daily 03/09/2017 07/06/2017 Inactive hydrocodone 10 mg-acetaminophen 325 mg tablet RxNorm: 442732 1 Tablet(s) PO Q6 as needed 12/04/2016 03/08/2017 Inactive hydrocodone 10 mg-acetaminophen 325 mg tablet RxNorm: 710711 1 Tablet(s) PO Q6 as needed 11/06/2016 12/03/2016 Inactive hydrocodone 10 mg-acetaminophen 325 mg tablet RxNorm: 410881 1 Tablet(s) PO Q6 as needed 10/08/2016 11/05/2016 Inactive Voltaren 1 % topical gel RxNorm: 608390 4 Gram(s) TOP TID as needed for pain as needed 09/25/2016 09/19/2017 Inactive hydrocodone 10 mg-acetaminophen 325 mg tablet RxNorm: 793607 1 Tablet(s) PO Q6 as needed 09/09/2016 10/07/2016 Inactive Voltaren 1 % topical gel RxNorm: 431297 1 Application TOP TID 09/08/2016 09/24/2016 Inactive Aricept 5 mg tablet RxNorm: 087537 1 Tablet(s) PO daily 201612/06/2016 Inactive Cymbalta 30 mg capsule,delayed release RxNorm: 612593 1 Capsule(s) PO daily 09/08/2016 12/06/2016 Inactive losartan 50 mg tablet RxNorm: 168028 1 Tablet(s) PO daily 201610/07/2016 Inactive clopidogrel 75 mg tablet RxNorm: 313904 75 MG PO DAILY 201609/20/2017 Inactive hydrocodone 10 mg-acetaminophen 325 mg tablet RxNorm: 964999 1 Tablet(s) PO Q6 as needed 08/15/2016 09/08/2016 Inactive hydrocodone 10 mg-acetaminophen 325 mg tablet RxNorm: 562764 1 Tablet(s) PO Q6 as needed 07/18/2016 08/14/2016 Inactive Cymbalta 30 mg capsule,delayed release RxNorm: 246888 1 Capsule(s) PO daily 07/03/2016 09/07/2016 Inactive Aricept 5 mg tablet RxNorm: 208931 1 Tablet(s) PO daily 201608/01/2016 Inactive Namenda XR 28 mg capsule sprinkle,extended release RxNorm: 874117 1 Capsule(s) PO daily 07/03/2016 05/07/2017 Inactive diazepam 5 mg tablet RxNorm: 673993 Tablet(s) PO daily as needed TAKE 1/2 TO 1 TABLET BY MOUTH DAILY NEEDED FOR ANXIETY 06/25/2016 03/06/2017 Inactive hydrocodone 10 mg-acetaminophen 325 mg tablet RxNorm: 732218 1 Tablet(s) PO Q6 as needed 06/19/2016 07/17/2016 Inactive Namenda XR 28 mg capsule sprinkle,extended release RxNorm: 153581 1 Capsule(s) PO daily 06/19/2016 07/02/2016 Inactive gabapentin 100 mg capsule RxNorm: 231818 1 Capsule(s) PO TID 03/08/2017 Inactive hydrocodone 10 mg-acetaminophen 325 mg tablet RxNorm: 441465 1 Tablet(s) PO Q6 as needed 05/27/2016 06/18/2016 Inactive diazepam 5 mg tablet RxNorm: 923023 Tablet(s) TAKE 1/2 TO 1 TABLET BY MOUTH DAILY NEEDED FOR ANXIETY 05/15/20162016 Inactive hydrocodone 10 mg-acetaminophen 325 mg tablet RxNorm: 571324 1 Tablet(s) PO Q6 as needed 04/29/2016 05/26/2016 Inactive omeprazole 40 mg capsule,delayed release RxNorm: 227132 Capsule(s) 1 CAPSULE(S) PO DAILY 04/28/2016 03/08/2017 Inactive diazepam 5 mg tablet RxNorm: 643344 Tablet(s) TAKE 1/2 TO 1 TABLET BY MOUTH DAILY NEEDED FOR ANXIETY 04/14/20162017 Inactive hydrocodone 10 mg-acetaminophen 325 mg tablet RxNorm: 018080 1 Tablet(s) PO Q6 as needed 04/01/2016 04/28/2016 Inactive Namenda XR 28 mg capsule sprinkle,extended release RxNorm: 218392 1 Capsule(s) PO daily 03/13/2016 06/18/2016 Inactive Namenda XR 28 mg capsule sprinkle,extended release RxNorm: 966319 1 Capsule(s) PO daily 03/12/2016 03/12/2016 Inactive diazepam 5 mg tablet RxNorm: 966673 Tablet(s) TAKE 1/2 TO 1 TABLET BY MOUTH DAILY NEEDED FOR ANXIETY 02/25/20162017 Inactive Namenda XR 28 mg capsule sprinkle,extended release RxNorm: 176269 1 Capsule(s) PO daily 02/04/2016 03/11/2016 Inactive hydrocodone 10 mg-acetaminophen 325 mg tablet RxNorm: 045416 1 Tablet(s) PO Q6 as needed 02/04/2016 03/04/2016 Inactive omeprazole 40 mg capsule,delayed release RxNorm: 149673 1 CAPSULE(S) PO DAILY 01/23/2016 04/27/2016 Inactive [SAVINGS FOR NON-COVERED DRUGS -- BIN:[id number], PCN: [id number], Group: [id number], ID# [id number], Questions: . THIS IS NOT INSURANCE.] sertraline 50 mg tablet RxNorm: 486478 TAKE 1 1/2 TABLET BY MOUTH ONCE DAILY 01/10/2016 03/08/2017 Inactive hydrocodone 10 mg-acetaminophen 325 mg tablet RxNorm: 222561 1 Tablet(s) PO Q6 as needed 01/07/2016 02/03/2016 Inactive diazepam 5 mg tablet RxNorm: 409006 Tablet(s) TAKE 1/2 TO 1 TABLET BY MOUTH DAILY NEEDED FOR ANXIETY 12/17/20152017 Inactive hydrocodone 10 mg-acetaminophen 325 mg tablet RxNorm: 816200 1 Tablet(s) PO Q6 as needed 12/10/2015 01/06/2016 Inactive gabapentin 100 mg capsule RxNorm: 849406 1 Capsule(s) PO TID 03/11/2016 Inactive gabapentin 100 mg capsule RxNorm: 396773 1 Capsule(s) PO TID 11/12/2015 Inactive hydrocodone 10 mg-acetaminophen 325 mg tablet RxNorm: 041706 1 Tablet(s) PO Q6 as needed 11/12/2015 12/09/2015 Inactive hydrocodone 10 mg-acetaminophen 325 mg tablet RxNorm: 988113 1 Tablet(s) PO Q6 as needed 10/16/2015 11/11/2015 Inactive hydrocodone 10 mg-acetaminophen 325 mg tablet RxNorm: 706297 1 Tablet(s) PO Q6 as needed 09/17/2015 10/15/2015 Inactive hydrocodone 10 mg-acetaminophen 325 mg tablet RxNorm: 030403 1 Tablet(s) PO Q6 as needed 08/16/2015 09/16/2015 Inactive diazepam 5 mg tablet RxNorm: 827975 Tablet(s) TAKE 1/2 TO 1 TABLET BY MOUTH DAILY NEEDED FOR ANXIETY 07/30/20152015 Inactive diazepam 5 mg tablet RxNorm: 272397 Tablet(s) TAKE 1/2 TO 1 TABLET BY MOUTH DAILY NEEDED FOR ANXIETY 07/27/20152015 Inactive hydrocodone 10 mg-acetaminophen 325 mg tablet RxNorm: 546605 1 Tablet(s) PO Q6 as needed 07/19/2015 08/15/2015 Inactive omeprazole 40 mg capsule,delayed release RxNorm: 731866 1 CAPSULE(S) PO DAILY 07/19/2015 01/14/2016 Inactive [SAVINGS FOR NON-COVERED DRUGS -- BIN:[id number], PCN: [id number], Group: XXXXX, ID# [id number], Questions: . THIS IS NOT INSURANCE.] hydrocodone 10 mg-acetaminophen 325 mg tablet RxNorm: 491587 1 Tablet(s) PO Q6 as needed 06/20/2015 07/18/2015 Inactive baclofen 10 mg tablet RxNorm: 383665 1 Tablet(s) PO TID 201506/07/2015 Inactive baclofen 10 mg tablet RxNorm: 560999 1 Tablet(s) PO TID 201507/07/2015 Inactive diazepam 5 mg tablet RxNorm: 603019 TAKE 1/2 TO 1 TABLET BY MOUTH DAILY NEEDED FOR ANXIETY 05/29/2015 04/12/2018 Inactive sertraline 50 mg tablet RxNorm: 896551 1.5 Tablet(s) PO daily 05/02/2015 10/28/2015 Inactive sertraline 50 mg tablet RxNorm: 108579 1.5 Tablet(s) PO daily 05/01/2015 05/01/2015 Inactive patient to call when needed diazepam 5 mg tablet RxNorm: 694418 1/2-1 Tablet(s) PO QDAY PRN 05/01/2015 05/29/2015 Inactive hydrocodone 10 mg-acetaminophen 325 mg tablet RxNorm: 018121 1 Tablet(s) PO Q6 as needed 04/23/2015 06/19/2015 Inactive hydrocodone 10 mg-acetaminophen 325 mg tablet RxNorm: 120661 1 Tablet(s) PO Q6 as needed 03/26/2015 04/22/2015 Inactive hydrocodone 10 mg-acetaminophen 325 mg tablet RxNorm: 451271 1 Tablet(s) PO Q6 as needed 02/26/2015 03/25/2015 Inactive Lyrica 50 mg capsule RxNorm: 582137 1 Capsule(s) PO TID 201402/03/2016 Inactive Lyrica 50 mg capsule RxNorm: 565434 1 Capsule(s) PO TID 201402/05/2015 Inactive Fish Oil [place] 3-6-9 300 mg-1,000 mg capsule,delayed release RxNorm: 1 Capsule(s) PO BID 01/30/2015 08/10/2016 Inactive diazepam 5 mg tablet RxNorm: 381345 1 Tablet(s) PO Q8 as needed 01/30/2015 04/30/2015 Inactive hydrocodone 10 mg-acetaminophen 325 mg tablet RxNorm: 956627 1 Tablet(s) PO Q6 as needed 01/19/2015 02/25/2015 Inactive sertraline 50 mg tablet RxNorm: 490127 1 Tablet(s) PO daily 04/30/2015 Inactive hydrocodone 10 mg-acetaminophen 325 mg tablet RxNorm: 655060 1 Tablet(s) PO Q6 as needed 12/12/2014 01/18/2015 Inactive hydrocodone 10 mg-acetaminophen 325 mg tablet RxNorm: 794236 1 Tablet(s) PO Q6 as needed 11/09/2014 12/11/2014 Inactive diazepam 5 mg tablet RxNorm: 359392 1 Tablet(s) PO Q8 as needed 11/01/2014 01/29/2015 Inactive omeprazole 40 mg capsule,delayed release RxNorm: 20020626 1 Capsule(s) PO daily 10/02/2014 04/30/2015 Inactive [SAVINGS FOR NON-COVERED DRUGS -- BIN:[id number], PCN: ASPROD1, Group: XXXXX, ID# [id number], Questions: . THIS IS NOT INSURANCE.] omeprazole 40 mg capsule,delayed release RxNorm: 20020626 1 Capsule(s) PO daily 10/02/2014 10/01/2014 Inactive melatonin 3 mg tablet RxNorm: 043360 1 Tablet(s) PO QHS No Start Date Active Vitamin D3 oral RxNorm : 2418 oral No Start Date Active diclofenac sodium 75 mg tablet,delayed release RxNorm: 264766 2 Tablet(s) PO daily No Start Date 04/30/2015 Inactive diazepam 5 mg tablet RxNorm: 303867 1 Tablet(s) PO TID No Start Date 10/31/2014 Inactive Multi Vitamin oral RxNorm: oral No Start Date 03/08/2017 Inactive Flonase nasal RxNorm: 64613 nasal No Start Date 03/08/2017 Inactive gabapentin 100 mg tablet RxNorm: 290654 1 Tablet(s) PO TID No Start Date 02/06/2015 Inactive hydrocodone 10 mg-acetaminophen 325 mg tablet RxNorm: 607617 1 Tablet(s) PO QID No Start Date 11/08/2014 Inactive Zithromax Z-Myles 250 mg tablet RxNorm: 982840 1 Tablet(s) PO UD No Start Date 06/24/2017 Inactive clopidogrel 75 mg tablet RxNorm: 553959 1 Tablet(s) PO daily No Start Date 09/03/2016 Inactive atorvastatin 40 mg tablet RxNorm: 379626 1 Tablet(s) PO daily No Start Date 09/20/2017 Inactive sertraline 50 mg tablet RxNorm: 084118 1 Tablet(s) PO daily No Start Date 01/04/2015 Inactive Medication Administered No Medication Administered data Immunizations Vaccine Codes Date Status Influenza CVX: 141 02/22/2018 completed Influenza CVX: 141 03/18/2017 completed Influenza CVX: 141 06/16/2016 completed Influenza CVX: 141 03/26/2015 completed Influenza CVX: 141 02/15/2014 completed Assessments Condition Codes Effective Dates Other allergic rhinitis ICD-10: J30.89 ICD-9: 477.8 09/01/2018 Major depressive disorder, recurrent, mild ICD-10: F33.0 ICD-9: 296.31 05/05/2018 Generalized anxiety disorder ICD-10: F41.1 ICD-9: 300.00 05/05/2018 Dementia in other diseases classified elsewhere without behavioral disturbance ICD-10: F02.80 ICD-9: 294.10 05/05/2018 Other insomnia ICD-10: G47.09 ICD-9: 327.09 02/22/2018 Encounter for immunization ICD-10: Z23 ICD-9: V04.81 02/22/2018 Pain in unspecified joint ICD-10: M25.50 ICD-9: 719.40 11/03/2017 Allergy to other foods ICD-10: Z91.018 ICD-9: V15.05 10/28/2017 Essential (primary) hypertension ICD-10: I10 ICD-9: 401.1 09/23/2017 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 ICD-9: 435.2 09/23/2017 Major depressive disorder, recurrent, moderate ICD-10: F33.1 ICD-9: 296.32 09/23/2017 Dysuria ICD-10: R30.0 ICD-9: 788.1 03/17/2017 Underweight ICD-10: R63.6 ICD-9: 783.22 03/09/2017 Localization-related (focal) (partial) symptomatic epilepsy and epileptic syndromes with simple partial seizures, not intractable, without status epilepticus ICD-10: G40.109 ICD-9: 345.50 03/09/2017 Chronic pain syndrome ICD-10: G89.4 ICD-9: 338.4 12/09/2016 Mixed hyperlipidemia ICD-10: E78.2 ICD-9: 272.4 12/09/2016 Personal history of transient ischemic attack [...] Visit Effective Dates Notes medication follow up 09/01/2018 medication follow up 07/29/2018 medication follow up 05/05/2018 insomnia 02/22/2018 food allergy 12/29/2017 food allergy 10/28/2017 medication follow up 09/23/2017 medication follow up 03/18/2017 Hospital Follow Up [...] Item Item Code Result Date Comp Metabolic Qrh934 NA 141 mEq/L 05/06/2018 Comp Metabolic Udc378 K 4.0 mEq/L 05/06/2018 Comp Metabolic Akk797 CL 105 mEq/L 05/06/2018 Comp Metabolic Mpd939 CO2 29.0 mEq/L 05/06/2018 Comp Metabolic Dve457 ANION GAP 11 05/06/2018 Comp Metabolic Fqp918 GLUCOSE 103 mg/dL 05/06/2018 Comp Metabolic Pwb128 Creat 0.8 mg/dL 05/06/2018 Comp Metabolic Eak323 eGFR 80 ml/min/1.73m2 05/06/2018 Comp Metabolic Ptq087 BUN 23 mg/dL 05/06/2018 Comp Metabolic Hdp181 B/C Ratio 30.3 Ratio 05/06/2018 Comp Metabolic Dhk924 CALCIUM 9.2 mg/dL 05/06/2018 Comp Metabolic Fkc066 ALK PHOS 65 U/L 05/06/2018 Comp Metabolic Hoz340 AST(SGOT) 18 U/L 05/06/2018 Comp Metabolic Zhf102 ALT(SGPT) 15 U/L 05/06/2018 Comp Metabolic Nek772 BILI T 0.5 mg/dL 05/06/2018 Comp Metabolic Xcf025 ALBUMIN 4.4 g/dL 05/06/2018 Comp Metabolic Opp808 TPRO 6.4 g/dL 05/06/2018 Comp Metabolic Uyz632 GLOB 2.0 g/dL 05/06/2018 Comp Metabolic Rcw058 A/G Ratio 2.2 Ratio 05/06/2018 Comp Metabolic Mcm006 Osmo 285 mOsmo 05/06/2018 Cbc With Differential Ord2 WBC 9.24 K/ul 05/05/2018 Cbc With Differential Ord2 RBC 4.22 M/ul 05/05/2018 Cbc With Differential Ord2 HGB 13.1 g/dl 05/05/2018 Cbc With Differential Ord2 HCT 39.1 % 05/05/2018 Cbc With Differential Ord2 Neut% 62.6 % 05/05/2018 Cbc With Differential Ord2 MCV 92.7 fl 05/05/2018 Cbc With Differential Ord2 Lymph% 28.1 % 05/05/2018 Cbc With Differential Ord2 MCH 31.0 pg 05/05/2018 Cbc With Differential Ord2 [place]% 7.4 % 05/05/2018 Cbc With Differential Ord2 MCHC 33.5 pg 05/05/2018 Cbc With Differential Ord2 Eos% 1.5 % 05/05/2018 Cbc With Differential Ord2 PLT 243 K/ul 05/05/2018 Cbc With Differential Ord2 Baso% 0.4 % 05/05/2018 Cbc With Differential Ord2 RDW 15.4 % 05/05/2018 Cbc With Differential Ord2 Neut ABS# 5.78 K/ul 05/05/2018 Cbc With Differential Ord2 Lymph ABS# 2.60 K/ul 05/05/2018 Cbc With Differential Ord2 [place] ABS# 0.7 K/ul 05/05/2018 Cbc With Differential Ord2 Eos ABS# 0.1 K/ul 05/05/2018 Cbc With Differential Ord2 Baso ABS# 0.0 K/ul 05/05/2018 C-Reactive Protein Qnt Crqnt CRP 0.1 mg/dl 11/04/2017 Sed Rate Ord21 ESR 2 mm/hr 11/04/2017 Comp Metabolic Zsl635 NA 143 mEq/L 08/28/2017 Comp Metabolic Pes366 K 4.2 mEq/L 08/28/2017 Comp Metabolic Hjt708 CL 108 mEq/L 08/28/2017 Comp Metabolic Khl279 CO2 28.0 mEq/L 08/28/2017 Comp Metabolic Vwj505 ANION GAP 11 08/28/2017 Comp Metabolic Ixc830 GLUCOSE 89 mg/dL 08/28/2017 Comp Metabolic Cmt230 Creat 0.8 mg/dL 08/28/2017 Comp Metabolic Axw212 eGFR 78 ml/min/1.73m2 08/28/2017 Comp Metabolic Oke963 BUN 19 mg/dL 08/28/2017 Comp Metabolic Isu570 B/C Ratio 24.4 Ratio 08/28/2017 Comp Metabolic Wdv045 CALCIUM 8.4 mg/dL 08/28/2017 Comp Metabolic Ple851 ALK PHOS 52 U/L 08/28/2017 Comp Metabolic Dzc894 AST(SGOT) 20 U/L 08/28/2017 Comp Metabolic Uat056 ALT(SGPT) 14 U/L 08/28/2017 Comp Metabolic Bqy733 BILI T 0.5 mg/dL 08/28/2017 Comp Metabolic Bvs898 ALBUMIN 4.0 g/dL 08/28/2017 Comp Metabolic Edk264 TPRO 5.9 g/dL 08/28/2017 Comp Metabolic Bod685 GLOB 1.9 g/dL 08/28/2017 Comp Metabolic Its450 A/G Ratio 2.1 Ratio 08/28/2017 Comp Metabolic Qol886 Osmo 287 mOsmo 08/28/2017 Cbc With Differential Ord2 WBC 7.49 K/ul 08/28/2017 Cbc With Differential Ord2 RBC 4.04 M/ul 08/28/2017 Cbc With Differential Ord2 HGB 12.5 g/dl 08/28/2017 Cbc With Differential Ord2 HCT 37.8 % 08/28/2017 Cbc With Differential Ord2 Neut% 62.3 % 08/28/2017 Cbc With Differential Ord2 MCV 93.6 fl 08/28/2017 Cbc With Differential Ord2 Lymph% 30.4 % 08/28/2017 Cbc With Differential Ord2 MCH 30.9 pg 08/28/2017 Cbc With Differential Ord2 [place]% 5.9 % 08/28/2017 Cbc With Differential Ord2 MCHC 33.1 pg 08/28/2017 Cbc With Differential Ord2 Eos% 0.9 % 08/28/2017 Cbc With Differential Ord2 PLT 190 K/ul 08/28/2017 Cbc With Differential Ord2 Baso% 0.5 % 08/28/2017 Cbc With Differential Ord2 RDW 15.4 % 08/28/2017 Cbc With Differential Ord2 Neut ABS# 4.66 K/ul 08/28/2017 Cbc With Differential Ord2 Lymph ABS# 2.28 K/ul 08/28/2017 Cbc With Differential Ord2 [place] ABS# 0.4 K/ul 08/28/2017 Cbc With Differential Ord2 Eos ABS# 0.1 K/ul 08/28/2017 Cbc With Differential Ord2 Baso ABS# 0.0 K/ul 08/28/2017 Lipid Ord30 CHOL 152 mg/dL 08/28/2017 Lipid Ord30 HDL 53.0 mg/dl 08/28/2017 Lipid Ord30 TRIG 102 mg/dL 08/28/2017 Lipid Ord30 LDL 79 mg/dL 08/28/2017 Lipid Ord30 C/HDL 2.9 Ratio 08/28/2017 Tsh Ord6 TSH (3rd IS) 1.13 uIU/mL 08/28/2017 Cbc With Differential Ord2 WBC 6.06 K/ul 03/09/2017 Cbc With Differential Ord2 RBC 4.45 M/ul 03/09/2017 Cbc With Differential Ord2 HGB 14.1 g/dl 03/09/2017 Cbc With Differential Ord2 HCT 41.6 % 03/09/2017 Cbc With Differential Ord2 Neut% 63.0 % 03/09/2017 Cbc With Differential Ord2 MCV 93.5 fl 03/09/2017 Cbc With Differential Ord2 Lymph% 29.4 % 03/09/2017 Cbc With Differential Ord2 MCH 31.7 pg 03/09/2017 Cbc With Differential Ord2 [place]% 6.1 % 03/09/2017 Cbc With Differential Ord2 MCHC 33.9 pg 03/09/2017 Cbc With Differential Ord2 Eos% 1.2 % 03/09/2017 Cbc With Differential Ord2 PLT 224 K/ul 03/09/2017 Cbc With Differential Ord2 Baso% 0.3 % 03/09/2017 Cbc With Differential Ord2 RDW 13.6 % 03/09/2017 Cbc With Differential Ord2 Neut ABS# 3.82 K/ul 03/09/2017 Cbc With Differential Ord2 Lymph ABS# 1.78 K/ul 03/09/2017 Cbc With Differential Ord2 [place] ABS# 0.4 K/ul 03/09/2017 Cbc With Differential Ord2 Eos ABS# 0.1 K/ul 03/09/2017 Cbc With Differential Ord2 Baso ABS# 0.0 K/ul 03/09/2017 Tsh Ord6 hTSH II 0.87 uIU/mL 03/09/2017 %Hba1C Rvg969 % HbA1c 55413-6 4.9 % 03/09/2017 %Hba1C Oym069 Gluc Ave 94 mg/dL 03/09/2017 Comp Metabolic Stu133 NA 141 mEq/L 03/09/2017 Comp Metabolic Lnj937 K 3.8 mEq/L 03/09/2017 Comp Metabolic Fxm650 CL 105 mEq/L 03/09/2017 Comp Metabolic Bab925 CO2 29.0 mEq/L 03/09/2017 Comp Metabolic Hmg181 ANION GAP 11 03/09/2017 Comp Metabolic Tte041 GLUCOSE 98 mg/dL 03/09/2017 Comp Metabolic Fqs937 Creat 0.7 mg/dL 03/09/2017 Comp Metabolic Pid711 eGFR 93 ml/min/1.73m2 03/09/2017 Comp Metabolic Bqj414 BUN 11 mg/dL 03/09/2017 Comp Metabolic Tga162 B/C Ratio 16.4 Ratio 03/09/2017 Comp Metabolic Qbz668 CALCIUM 9.5 mg/dL 03/09/2017 Comp Metabolic Wwq125 ALK PHOS 90 U/L 03/09/2017 Comp Metabolic Bne750 AST(SGOT) 21 U/L 03/09/2017 Comp Metabolic Xsc529 ALT(SGPT) 15 U/L 03/09/2017 Comp Metabolic Lmi291 BILI T 0.6 mg/dL 03/09/2017 Comp Metabolic Hya786 ALBUMIN 4.5 g/dL 03/09/2017 Comp Metabolic You560 TPRO 6.4 g/dL 03/09/2017 Comp Metabolic Lsi020 GLOB 1.9 g/dL 03/09/2017 Comp Metabolic Kex624 A/G Ratio 2.3 Ratio 03/09/2017 Comp Metabolic Nhe972 Osmo 281 mOsmo 03/09/2017 Comp Metabolic Wls103 NA 142 mEq/L 09/03/2016 Comp Metabolic Woa008 K 3.9 mEq/L 09/03/2016 Comp Metabolic Beo086 CL 107 mEq/L 09/03/2016 Comp Metabolic Qar579 CO2 26.0 mEq/L 09/03/2016 Comp Metabolic Eck107 ANION GAP 13 09/03/2016 Comp Metabolic Yhk428 GLUCOSE 107 mg/dL 09/03/2016 Comp Metabolic Zil192 Creat 0.7 mg/dL 09/03/2016 Comp Metabolic Xpp935 eGFR 85 ml/min/1.73m2 09/03/2016 Comp Metabolic Lsl611 BUN 16 mg/dL 09/03/2016 Comp Metabolic Efn799 B/C Ratio 21.9 Ratio 09/03/2016 Comp Metabolic Map949 CALCIUM 8.8 mg/dL 09/03/2016 Comp Metabolic Sym091 ALK PHOS 51 U/L 09/03/2016 Comp Metabolic Nnr201 AST(SGOT) 24 U/L 09/03/2016 Comp Metabolic Dwd996 ALT(SGPT) 20 U/L 09/03/2016 Comp Metabolic Ftr666 BILI T 0.7 mg/dL 09/03/2016 Comp Metabolic Fbf498 ALBUMIN 4.1 g/dL 09/03/2016 Comp Metabolic Xdl412 TPRO 6.1 g/dL 09/03/2016 Comp Metabolic Llw589 GLOB 2.0 g/dL 09/03/2016 Comp Metabolic Wzx999 A/G Ratio 2.1 Ratio 09/03/2016 Comp Metabolic Pbt412 Osmo 285 mOsmo 09/03/2016 Cbc With Differential [...] 30.3 pg 09/03/2016 Cbc With Differential Ord2 [place]% 6.5 % 09/03/2016 Cbc With Differential Ord2 MCHC 33.8 pg 09/03/2016 Cbc With Differential Ord2 Eos% 1.3 % 09/03/2016 Cbc With Differential Ord2 PLT 217 K/ul 09/03/2016 Cbc With Differential Ord2 Baso% 0.6 % 09/03/2016 Cbc With Differential Ord2 RDW 15.3 % 09/03/2016 Cbc With Differential Ord2 Neut ABS# 4.11 K/ul 09/03/2016 Cbc With Differential Ord2 Lymph ABS# 1.53 K/ul 09/03/2016 Cbc With Differential Ord2 [place] ABS# 0.4 K/ul 09/03/2016 Cbc With Differential [...] Ord15 CALCIUM 9.1 mg/dL 12/21/2015 Comp Metabolic Qzt504 NA 138 mEq/L 07/06/2015 Comp Metabolic Ydj675 K 3.9 mEq/L 07/06/2015 Comp Metabolic Kfj646 CL 103 mEq/L 07/06/2015 Comp Metabolic Yoj272 CO2 28.0 mEq/L 07/06/2015 Comp Metabolic Est723 ANION GAP 11 07/06/2015 Comp Metabolic Rpi566 GLUCOSE 114 mg/dL 07/06/2015 Comp Metabolic Pup754 Creat 0.7 mg/dL 07/06/2015 Comp Metabolic Ohd899 eGFR 97 ml/min/1.73m2 07/06/2015 Comp Metabolic Dhp333 BUN 11 mg/dL 07/06/2015 Comp Metabolic Kts928 B/C Ratio 16.9 Ratio 07/06/2015 Comp Metabolic Guu329 CALCIUM 9.1 mg/dL 07/06/2015 Comp Metabolic Jgh403 ALK PHOS 57 U/L 07/06/2015 Comp Metabolic Bjm042 AST(SGOT) 26 U/L 07/06/2015 Comp Metabolic Wuk854 ALT(SGPT) 17 U/L 07/06/2015 Comp Metabolic Pbu423 BILI T 0.6 mg/dL 07/06/2015 Comp Metabolic Pam751 ALBUMIN 4.6 g/dL 07/06/2015 Comp Metabolic Ajo507 TPRO 6.7 g/dL 07/06/2015 Comp Metabolic Mxc689 GLOB 2.1 g/dL 07/06/2015 Comp Metabolic Nrk146 A/G Ratio 2.2 Ratio 07/06/2015 Comp Metabolic Rvr522 Osmo 276 mOsmo 07/06/2015 Lipid Ord30 CHOL 228 mg/dL 07/06/2015 Lipid Ord30 HDL 48.0 mg/dl 07/06/2015 Lipid Ord30 TRIG 176 mg/dL 07/06/2015 Lipid Ord30 LDL 145 mg/dL 07/06/2015 Lipid Ord30 C/HDL 4.8 Ratio 07/06/2015 Tsh Ord6 hTSH II 0.74 uIU/mL 05/01/2015 Comp Metabolic Ocu085 NA 141 mEq/L 05/01/2015 Comp Metabolic Rtj235 K 4.0 mEq/L 05/01/2015 Comp Metabolic Zuu757 CL 106 mEq/L 05/01/2015 Comp Metabolic Zmw454 CO2 26.0 mEq/L 05/01/2015 Comp Metabolic Mfv731 ANION GAP 13 05/01/2015 Comp Metabolic Mmd311 GLUCOSE 124 mg/dL 05/01/2015 Comp Metabolic Ijd791 Creat 0.8 mg/dL 05/01/2015 Comp Metabolic Jzs585 eGFR 79 ml/min/1.73m2 05/01/2015 Comp Metabolic Vou963 BUN 13 mg/dL 05/01/2015 Comp Metabolic Nfl778 B/C Ratio 16.7 Ratio 05/01/2015 Comp Metabolic Ipx216 CALCIUM 9.3 mg/dL 05/01/2015 Comp Metabolic Ork618 ALK PHOS 54 U/L 05/01/2015 Comp Metabolic Xpx348 AST(SGOT) 21 U/L 05/01/2015 Comp Metabolic Lan860 ALT(SGPT) 14 U/L 05/01/2015 Comp Metabolic Zqh649 BILI T 0.5 mg/dL 05/01/2015 Comp Metabolic Jbf567 ALBUMIN 4.5 g/dL 05/01/2015 Comp Metabolic Ocf623 TPRO 6.4 g/dL 05/01/2015 Comp Metabolic Mmd325 GLOB 1.9 g/dL 05/01/2015 Comp Metabolic Lcl833 A/G Ratio 2.4 Ratio 05/01/2015 Comp Metabolic Prx226 Osmo 283 mOsmo 05/01/2015 Cbc With Differential [...] Differential Ord2 RDW 16.8 % 05/01/2015 %Hba1C Yet609 % HbA1c 93615-9 5.4 % 01/29/2015 %Hba1C Yec440 Gluc Ave 108 mg/dL 01/29/2015 Lipid Ord30 CHOL 221 mg/dL 01/26/2015 Lipid Ord30 HDL 37.0 mg/dl 01/26/2015 Lipid Ord30 TRIG 274 mg/dL 01/26/2015 Lipid Ord30 LDL 129 mg/dL 01/26/2015 Lipid Ord30 C/HDL 6.0 Ratio 01/26/2015 Tsh Ord6 hTSH II 0.85 uIU/mL 01/26/2015 Comp Metabolic Gkh397 NA 137 mEq/L 01/26/2015 Comp Metabolic Ixw486 K 4.0 mEq/L 01/26/2015 Comp Metabolic Nhu809 CL 104 mEq/L 01/26/2015 Comp Metabolic Wkn525 CO2 27.0 mEq/L 01/26/2015 Comp Metabolic Exu669 ANION GAP 10 01/26/2015 Comp Metabolic Eya052 GLUCOSE 131 mg/dL 01/26/2015 Comp Metabolic Nhg055 Creat 0.8 mg/dL 01/26/2015 Comp Metabolic Aod367 eGFR 77 ml/min/1.73m2 01/26/2015 Comp Metabolic Sfc808 BUN 16 mg/dL 01/26/2015 Comp Metabolic Lgu174 B/C Ratio 20.0 Ratio 01/26/2015 Comp Metabolic Jrt277 CALCIUM 9.1 mg/dL 01/26/2015 Comp Metabolic Zux918 ALK PHOS 66 U/L 01/26/2015 Comp Metabolic Bbj459 AST(SGOT) 24 U/L 01/26/2015 Comp Metabolic Tfw619 ALT(SGPT) 20 U/L 01/26/2015 Comp Metabolic Tjj140 BILI T 0.4 mg/dL 01/26/2015 Comp Metabolic Pmv270 ALBUMIN 4.2 g/dL 01/26/2015 Comp Metabolic Cde866 TPRO 6.4 g/dL 01/26/2015 Comp Metabolic Rdp180 GLOB 2.2 g/dL 01/26/2015 Comp Metabolic Jbn660 A/G Ratio 1.9 Ratio 01/26/2015 Comp Metabolic Apq083 Osmo 277 mOsmo 01/26/2015 Cbc With Differential [...] Differential Ord2 RDW 15.5 % 01/26/2015 B12 Mdu360 B12 669.00 pg/ml 01/26/2015 Review of Systems System Result Effective Dates Constitutional No recent illness 2018 Constitutional No chills 09/01/2018 Constitutional No diaphoresis 09/01/2018 Constitutional No fever 09/01/2018 Eyes No eye erythema 09/01/2018 Ears/Nose/Throat/Neck nasal allergies Ears/Nose/Throat/Neck nasal discharge Ears/Nose/Throat/Neck postnasal drip Ears/Nose/Throat/Neck No sinus congestion 09/01/2018 Ears/Nose/Throat/Neck No sore throat Cardiovascular No chest pain/pressure Cardiovascular No dyspnea 09/01/2018 Respiratory No chest congestion 2018 Respiratory No cough 09/01/2018 Gastrointestinal No abdominal pain 2018 Neurologic No alteration of consciousness 09/01/2018 Neurologic memory loss 09/01/2018 Constitutional No recent illness 2018 Constitutional No chills 07/29/2018 Constitutional No diaphoresis 07/29/2018 Constitutional No fever 07/29/2018 Eyes No eye erythema 07/29/2018 Ears/Nose/Throat/Neck nasal allergies Ears/Nose/Throat/Neck nasal discharge Ears/Nose/Throat/Neck No sinus congestion 07/29/2018 Ears/Nose/Throat/Neck postnasal drip Ears/Nose/Throat/Neck No sore throat Cardiovascular No chest pain/pressure Cardiovascular No dyspnea 07/29/2018 Respiratory No cough 07/29/2018 Respiratory No chest congestion 2018 Gastrointestinal No abdominal pain 2018 Neurologic No alteration of consciousness 07/29/2018 Neurologic memory loss 07/29/2018 Constitutional No recent illness 2017 Constitutional No chills 05/05/2018 Constitutional No diaphoresis 05/05/2018 Constitutional No fever 05/05/2018 Constitutional insomnia 05/05/2018 Eyes No eye erythema 05/05/2018 Ears/Nose/Throat/Neck No nasal discharge 05/05/2018 Cardiovascular No chest pain/pressure Respiratory No cough 05/05/2018 Gastrointestinal No abdominal pain 2017 Dermatologic No rash 05/05/2018 Neurologic No alteration of consciousness 05/05/2018 Neurologic memory loss 05/05/2018 Psychiatric anxiety 05/05/2018 Psychiatric depression 05/05/2018 Psychiatric No suicidality 05/05/2018 Constitutional No recent illness 2017 Constitutional No chills 02/22/2018 Constitutional No diaphoresis 02/22/2018 Constitutional No fever 02/22/2018 Eyes No eye erythema 02/22/2018 Ears/Nose/Throat/Neck No nasal discharge 02/22/2018 Cardiovascular No chest pain/pressure 12/2017 Respiratory No cough 02/22/2018 Gastrointestinal No abdominal pain 2017 Dermatologic No rash 02/22/2018 Neurologic No alteration of consciousness 02/22/2018 Neurologic memory loss 02/22/2018 Constitutional insomnia 02/22/2018 Constitutional recent illness 12/29/2017 Constitutional No chills 12/29/2017 Constitutional No diaphoresis 12/29/2017 Constitutional fatigue 12/29/2017 Constitutional No fever 12/29/2017 Eyes No eye pain 12/29/2017 Eyes No vision change 12/29/2017 Cardiovascular No chest pain/pressure Cardiovascular No dyspnea 12/29/2017 Cardiovascular fatigue 12/29/2017 Respiratory No chest congestion 2017 Respiratory No cough 12/29/2017 Gastrointestinal No abdominal pain 2017 Gastrointestinal No constipation 2017 Gastrointestinal No diarrhea 12/29/2017 Gastrointestinal No nausea 12/29/2017 Gastrointestinal No vomiting 12/29/2017 Genitourinary/Nephrology No dysuria 12/29 Dermatologic No rash 12/29/2017 Neurologic No alteration of consciousness 12/29/2017 Neurologic memory loss 12/29/2017 Neurologic weakness 12/29/2017 Psychiatric anxiety 12/29/2017 Psychiatric depression 12/29/2017 Ears/Nose/Throat/Neck nasal discharge Ears/Nose/Throat/Neck nasal allergies Constitutional recent illness 10/28/2017 Constitutional No chills 10/28/2017 Constitutional No diaphoresis 10/28/2017 Constitutional fatigue 10/28/2017 Constitutional No fever 10/28/2017 Eyes No eye pain 10/28/2017 Eyes No vision change 10/28/2017 Ears/Nose/Throat/Neck No dizziness 2017 Ears/Nose/Throat/Neck No headache 2017 Cardiovascular No chest pain/pressure Cardiovascular No dyspnea 10/28/2017 Cardiovascular fatigue 10/28/2017 Respiratory No chest congestion 2017 Respiratory No cough 10/28/2017 Gastrointestinal No abdominal pain 2017 Gastrointestinal No constipation 2017 Gastrointestinal No diarrhea 10/28/2017 Gastrointestinal No nausea 10/28/2017 Gastrointestinal No vomiting 10/28/2017 Genitourinary/Nephrology No dysuria 10/28 Dermatologic No rash 10/28/2017 Neurologic No alteration of consciousness 10/28/2017 Neurologic No dizziness 10/28/2017 Neurologic memory loss 10/28/2017 Neurologic weakness 10/28/2017 Psychiatric anxiety 10/28/2017 Psychiatric depression 10/28/2017 Endocrine diabetes mellitus type 2 2017 Constitutional weight loss 10/28/2017 Allergy/Immunology food allergy 2017 Constitutional recent illness 09/23/2017 Constitutional No chills 09/23/2017 Constitutional No diaphoresis 09/23/2017 Constitutional fatigue 09/23/2017 Constitutional No fever 09/23/2017 Eyes No eye pain 09/23/2017 Eyes No vision change 09/23/2017 Ears/Nose/Throat/Neck No dizziness 2017 Ears/Nose/Throat/Neck No headache 2017 Cardiovascular No chest pain/pressure 01/2018 Cardiovascular No dyspnea 09/23/2017 Cardiovascular fatigue 09/23/2017 Respiratory No chest congestion 2017 Respiratory No cough 09/23/2017 Gastrointestinal No abdominal pain 2017 Gastrointestinal No constipation 2017 Gastrointestinal No diarrhea 09/23/2017 Gastrointestinal No nausea 09/23/2017 Gastrointestinal No vomiting 09/23/2017 Genitourinary/Nephrology No dysuria 09/23 Dermatologic No rash 09/23/2017 Neurologic No alteration of consciousness 09/23/2017 Neurologic No dizziness 09/23/2017 Neurologic memory loss 09/23/2017 Neurologic weakness 09/23/2017 Psychiatric anxiety 09/23/2017 Psychiatric depression 09/23/2017 Endocrine diabetes mellitus type 2 2017 Constitutional recent illness 03/18/2017 Constitutional No chills [...] Result Effective Dates Notes Full Exam - ENT Constitutional general appearance Overall: well nourished 09/01/2018 None Full Exam - ENT Constitutional general appearance Overall: well developed 09/01/2018 None Full Exam - ENT Constitutional general appearance Overall: in no acute distress 09/01/2018 None Full Exam - ENT Ears/Nose/Throat otoscopic exam Overall: external auditory canals normal 09/01/2018 None Full Exam - ENT Ears/Nose/Throat otoscopic exam Overall: tympanic membranes normal 09/01/2018 None Full Exam - ENT Ears/Nose/Throat lips/ teeth/gingiva Overall: benign lips 09/01/2018 None Full Exam - ENT Ears/Nose/Throat oropharynx Overall: oral mucosa clear 09/01/2018 None Full Exam - ENT Ears/Nose/Throat oropharynx Posterior Pharynx: clear post nasal drainage 09/01/2018 None Full Exam - ENT Respiratory inspection Overall: no retractions 09/01/2018 None Full Exam - ENT Respiratory inspection Overall: normal rate None Full Exam - ENT Respiratory auscultation Overall: breath sounds clear bilaterally 09/01/2018 None Full Exam - ENT Respiratory auscultation Diffuse: diminished None Full Exam - ENT Cardiovascular auscultation of heart Overall: regular rate 09/01/2018 None Full Exam - ENT Cardiovascular auscultation of heart Overall: normal heart sounds 09/01/2018 None Full Exam - ENT Musculoskeletal head and neck Overall: head atraumatic 09/01/2018 None Full Exam - ENT Neurologic mood and affect Overall: normal mood 09/01/2018 None Full Exam - ENT Neurologic mood and affect Overall: normal affect 09/01/2018 None Full Exam - ENT Neurologic orientation Person: oriented to person 09/01/2018 None Full Exam - ENT Neurologic orientation Place: oriented to place 09/01/2018 None Full Exam - ENT Neurologic orientation Time: not oriented to time 09/01/2018 None Full Exam - ENT Constitutional general appearance Overall: well nourished 07/29/2018 None Full Exam - ENT Constitutional general appearance Overall: well developed 07/29/2018 None Full Exam - ENT Constitutional general appearance Overall: in no acute distress 07/29/2018 None Full Exam - ENT Ears/Nose/Throat otoscopic exam Overall: tympanic membranes normal 07/29/2018 None Full Exam - ENT Ears/Nose/Throat otoscopic exam Overall: external auditory canals normal 07/29/2018 None Full Exam - ENT Ears/Nose/Throat lips/ teeth/gingiva Overall: benign lips 07/29/2018 None Full Exam - ENT Ears/Nose/Throat oropharynx Overall: oral mucosa clear 07/29/2018 None Full Exam - ENT Ears/Nose/Throat oropharynx Posterior Pharynx: clear post nasal drainage 07/29/2018 None Full Exam - ENT Respiratory auscultation Overall: breath sounds clear bilaterally 07/29/2018 None Full Exam - ENT Respiratory auscultation Diffuse: diminished None Full Exam - ENT Respiratory inspection Overall: normal rate None Full Exam - ENT Respiratory inspection Overall: no retractions 07/29/2018 None Full Exam - ENT Cardiovascular auscultation of heart Overall: normal heart sounds 07/29/2018 None Full Exam - ENT Cardiovascular auscultation of heart Overall: regular rate 07/29/2018 None Full Exam - ENT Musculoskeletal head and neck Overall: head atraumatic 07/29/2018 None Full Exam - ENT Neurologic mood and affect Overall: normal affect 07/29/2018 None Full Exam - ENT Neurologic mood and affect Overall: normal mood 07/29/2018 None Full Exam - ENT Neurologic orientation Person: oriented to person 07/29/2018 None Full Exam - ENT Neurologic orientation Place: oriented to place 07/29/2018 None Full Exam - ENT Neurologic orientation Time: not oriented to time 07/29/2018 None Full Exam - General 1994 Constitutional general appearance Overall: well developed 05/05/2018 None Full Exam - General 1994 Constitutional general appearance Overall: in no acute distress 05/05/2018 None Full Exam - General 1994 Constitutional general appearance Overall: well nourished 05/05/2018 None Full Exam - General 1994 Eyes conjunctiva /eyelids Overall: conjunctiva clear 05/05/2018 None Full Exam - General 1994 Eyes conjunctiva /eyelids Overall: cornea clear 05/05/2018 None Full Exam - General 1994 Eyes conjunctiva /eyelids Overall: eyelids normal 05/05/2018 None Full Exam - General 1994 Ears/Nose/Throat lips/teeth/gingiva Overall: benign lips 05/05/2018 None Full Exam - General 1994 Ears/Nose/Throat oral cavity/pharynx/larynx Overall: oral mucosa clear 05/05/2018 None Full Exam - General 1994 Respiratory auscultation Overall: breath sounds clear bilaterally 05/05/2018 None Full Exam - General 1994 Respiratory respiratory effort/rhythm Overall: no retractions 05/05/2018 None Full Exam - General 1994 Respiratory respiratory effort/rhythm Overall: normal rate 05/05/2018 None Full Exam - General 1994 Cardiovascular auscultation of heart Overall: regular rate 05/05/2018 None Full Exam - General 1994 Cardiovascular auscultation of heart Overall: normal heart sounds 05/05/2018 None Full Exam - General 1994 Musculoskeletal gait and station Overall: normal gait 05/05/2018 None Full Exam - General 1994 Musculoskeletal gait and station Overall: normal station 05/05/2018 None Full Exam - General 1994 Musculoskeletal head and neck Overall: head atraumatic 05/05/2018 None Full Exam - General 1994 Neurologic cranial nerves Overall: crainial nerves 2 - 12 grossly intact 05/05/2018 None Full Exam - General 1994 Psychiatric orientation/consciousness Oriented to person: yes 05/05/2018 None Full Exam - General 1994 Psychiatric orientation/consciousness Oriented to place: no 05/05/2018 None Full Exam - General 1994 Psychiatric orientation/consciousness Oriented to time: no 05/05/2018 None Full Exam - General 1994 Psychiatric orientation/consciousness Level of consciousness: alert 05/05/2018 None Full Exam - General 1994 Psychiatric mood and affect Overall: normal mood and affect 05/05/2018 None Full Exam - General 1994 Constitutional general appearance Overall: well developed 02/22/2018 None Full Exam - General 1994 Constitutional general appearance Overall: in no acute distress 02/22/2018 None Full Exam - General 1994 Constitutional general appearance Overall: well nourished 02/22/2018 None Full Exam - General 1994 Eyes conjunctiva /eyelids Overall: conjunctiva clear 02/22/2018 None Full Exam - General 1994 Eyes conjunctiva /eyelids Overall: cornea clear 02/22/2018 None Full Exam - General 1994 Eyes conjunctiva /eyelids Overall: eyelids normal 02/22/2018 None Full Exam - General 1994 Ears/Nose/Throat lips/teeth/gingiva Overall: benign lips 02/22/2018 None Full Exam - General 1994 Ears/Nose/Throat oral cavity/pharynx/larynx Overall: oral mucosa clear 02/22/2018 None Full Exam - General 1994 Respiratory respiratory effort/rhythm Overall: normal rate 02/22/2018 None Full Exam - General 1994 Respiratory respiratory effort/rhythm Overall: no retractions 02/22/2018 None Full Exam - General 1994 Respiratory auscultation Overall: breath sounds clear bilaterally 02/22/2018 None Full Exam - General 1994 Cardiovascular auscultation of heart Overall: regular rate 02/22/2018 None Full Exam - General 1994 Cardiovascular auscultation of heart Overall: normal heart sounds 02/22/2018 None Full Exam - General 1994 Musculoskeletal head and neck Overall: head atraumatic 02/22/2018 None Full Exam - General 1994 Musculoskeletal gait and station Overall: normal station 02/22/2018 None Full Exam - General 1994 Musculoskeletal gait and station Overall: normal gait 02/22/2018 None Full Exam - General 1994 Neurologic cranial nerves Overall: crainial nerves 2 - 12 grossly intact 02/22/2018 None Full Exam - General 1994 Psychiatric orientation/consciousness Oriented to person: yes 02/22/2018 None Full Exam - General 1994 Psychiatric orientation/consciousness Oriented to place: no 02/22/2018 None Full Exam - General 1994 Psychiatric orientation/consciousness Oriented to time: no 02/22/2018 None Full Exam - General 1994 Psychiatric orientation/consciousness Level of consciousness: alert 02/22/2018 None Full Exam - General 1994 Psychiatric mood and affect Overall: normal mood and affect 02/22/2018 None Full Exam - General 1994 Constitutional general appearance Overall: well developed 12/29/2017 None Full Exam - General 1994 Constitutional general appearance Overall: in no acute distress 12/29/2017 None Full Exam - General 1994 Constitutional general appearance Overall: well nourished 12/29/2017 None Full Exam - General 1994 Eyes conjunctiva /eyelids Overall: conjunctiva clear 12/29/2017 None Full Exam - General 1994 Eyes conjunctiva /eyelids Overall: cornea clear 12/29/2017 None Full Exam - General 1994 Eyes conjunctiva /eyelids Overall: eyelids normal 12/29/2017 None Full Exam - General 1994 Eyes pupils and irises Overall: pupils equal, round, reactive to light and accomodation 12/29/2017 None Full Exam - General 1994 Ears/Nose/Throat otoscopic exam Overall: external auditory canals clear 12/29/2017 None Full Exam - General 1994 Ears/Nose/Throat otoscopic exam Overall: tympanic membranes clear 12/29/2017 None Full Exam - General 1994 Ears/Nose/Throat lips/teeth/gingiva Overall: benign lips 12/29/2017 None Full Exam - General 1994 Ears/Nose/Throat oral cavity/pharynx/larynx Overall: oral mucosa clear 12/29/2017 None Full Exam - General 1994 Respiratory auscultation Overall: breath sounds clear bilaterally 12/29/2017 None Full Exam - General 1994 Respiratory respiratory effort/rhythm Overall: no retractions 12/29/2017 None Full Exam - General 1994 Respiratory respiratory effort/rhythm Overall: normal rate 12/29/2017 None Full Exam - General 1994 Cardiovascular auscultation of heart Overall: regular rate 12/29/2017 None Full Exam - General 1994 Cardiovascular auscultation of heart Overall: normal heart sounds 12/29/2017 None Full Exam - General 1994 Lymphatic neck nodes Overall: anterior cervical chain benign 12/29/2017 None Full Exam - General 1994 Lymphatic neck nodes Overall: posterior cervical chain benign 12/29/2017 None Full Exam - General 1994 Musculoskeletal gait and station Overall: normal gait 12/29/2017 None Full Exam - General 1994 Musculoskeletal gait and station Overall: normal station 12/29/2017 None Full Exam - General 1994 Musculoskeletal head and neck Overall: head atraumatic 12/29/2017 None Full Exam - General 1994 Neurologic motor Overall: normal bulk, tone 12/29/2017 None Full Exam - General 1994 Psychiatric orientation/consciousness Oriented to person: yes 12/29/2017 None Full Exam - General 1994 Psychiatric orientation/consciousness Oriented to place: yes 12/29/2017 None Full Exam - General 1994 Psychiatric mood and affect Overall: normal mood and affect 12/29/2017 None Full Exam - General 1994 Psychiatric appearance Overall: well-groomed, good eye contact 12/29/2017 None Full Exam - General 1994 Psychiatric speech Overall: normal quality, no aphasia 12/29/2017 None Full Exam - General 1994 Psychiatric speech Rate of production: slow 12/29/2017 None Full Exam - General 1994 Constitutional general appearance Overall: well developed 10/28/2017 None Full Exam - General 1994 Constitutional general appearance Overall: in no acute distress 10/28/2017 None Full Exam - General 1994 Constitutional general appearance Overall: well nourished 10/28/2017 None Full Exam - General 1994 Eyes conjunctiva /eyelids Overall: conjunctiva clear 10/28/2017 None Full Exam - General 1994 Eyes conjunctiva /eyelids Overall: cornea clear 10/28/2017 None Full Exam - General 1994 Eyes conjunctiva /eyelids Overall: eyelids normal 10/28/2017 None Full Exam - General 1994 Eyes pupils and irises Overall: pupils equal, round, reactive to light and accomodation 10/28/2017 None Full Exam - General 1994 Ears/Nose/Throat otoscopic exam Overall: external auditory canals clear 10/28/2017 None Full Exam - General 1994 Ears/Nose/Throat otoscopic exam Overall: tympanic membranes clear 10/28/2017 None Full Exam - General 1994 Ears/Nose/Throat lips/teeth/gingiva Overall: benign lips 10/28/2017 None Full Exam - General 1994 Ears/Nose/Throat oral cavity/pharynx/larynx Overall: oral mucosa clear 10/28/2017 None Full Exam - General 1994 Respiratory auscultation Overall: breath sounds clear bilaterally 10/28/2017 None Full Exam - General 1994 Respiratory respiratory effort/rhythm Overall: no retractions 10/28/2017 None Full Exam - General 1994 Respiratory respiratory effort/rhythm Overall: normal rate 10/28/2017 None Full Exam - General 1994 Cardiovascular auscultation of heart Overall: regular rate 10/28/2017 None Full Exam - General 1994 Cardiovascular auscultation of heart Overall: normal heart sounds 10/28/2017 None Full Exam - General 1994 Lymphatic neck nodes Overall: anterior cervical chain benign 10/28/2017 None Full Exam - General 1994 Lymphatic neck nodes Overall: posterior cervical chain benign 10/28/2017 None Full Exam - General 1994 Musculoskeletal gait and station Overall: normal gait 10/28/2017 None Full Exam - General 1994 Musculoskeletal gait and station Overall: normal station 10/28/2017 None Full Exam - General 1994 Musculoskeletal head and neck Overall: head atraumatic 10/28/2017 None Full Exam - General 1994 Neurologic motor Overall: normal bulk, tone 10/28/2017 None Full Exam - General 1994 Psychiatric orientation/consciousness Oriented to person: yes 10/28/2017 None Full Exam - General 1994 Psychiatric orientation/consciousness Oriented to place: yes 10/28/2017 None Full Exam - General 1994 Psychiatric mood and affect Overall: normal mood and affect 10/28/2017 None Full Exam - General 1994 Psychiatric appearance Overall: well-groomed, good eye contact 10/28/2017 None Full Exam - General 1994 Psychiatric speech Overall: normal quality, no aphasia 10/28/2017 None Full Exam - General 1994 Psychiatric speech Rate of production: slow 10/28/2017 None Full Exam - General 1994 Constitutional general appearance Overall: well developed 09/23/2017 None Full Exam - General 1994 Constitutional general appearance Overall: well nourished 09/23/2017 None Full Exam - General 1994 Eyes conjunctiva /eyelids Overall: conjunctiva clear 09/23/2017 None Full Exam - General 1994 Eyes conjunctiva /eyelids Overall: cornea clear 09/23/2017 None Full Exam - General 1994 Eyes conjunctiva /eyelids Overall: eyelids normal 09/23/2017 None Full Exam - General 1994 Eyes pupils and irises Overall: pupils equal, round, reactive to light and accomodation 09/23/2017 None Full Exam - General 1994 Ears/Nose/Throat otoscopic exam Overall: external auditory canals clear 09/23/2017 None Full Exam - General 1994 Ears/Nose/Throat otoscopic exam Overall: tympanic membranes clear 09/23/2017 None Full Exam - General 1994 Ears/Nose/Throat lips/teeth/gingiva Overall: benign lips 09/23/2017 None Full Exam - General 1994 Ears/Nose/Throat oral cavity/pharynx/larynx Overall: oral mucosa clear 09/23/2017 None Full Exam - General 1994 Respiratory auscultation Overall: breath sounds clear bilaterally 09/23/2017 None Full Exam - General 1994 Respiratory respiratory effort/rhythm Overall: no retractions 09/23/2017 None Full Exam - General 1994 Respiratory respiratory effort/rhythm Overall: normal rate 09/23/2017 None Full Exam - General 1994 Cardiovascular auscultation of heart Overall: regular rate 09/23/2017 None Full Exam - General 1994 Cardiovascular auscultation of heart Overall: normal heart sounds 09/23/2017 None Full Exam - General 1994 Lymphatic neck nodes Overall: anterior cervical chain benign 09/23/2017 None Full Exam - General 1994 Lymphatic neck nodes Overall: posterior cervical chain benign 09/23/2017 None Full Exam - General 1994 Musculoskeletal gait and station Overall: normal gait 09/23/2017 None Full Exam - General 1994 Musculoskeletal gait and station Overall: normal station 09/23/2017 None Full Exam - General 1994 Musculoskeletal head and neck Overall: head atraumatic 09/23/2017 None Full Exam - General 1994 Neurologic motor Overall: normal bulk, tone 09/23/2017 None Full Exam - General 1994 Psychiatric mood and affect Overall: normal mood and affect 09/23/2017 None Full Exam - General 1994 Psychiatric appearance Overall: well-groomed, good eye contact 09/23/2017 None Full Exam - General 1994 Psychiatric speech Overall: normal quality, no aphasia 09/23/2017 None Full Exam - General 1994 Psychiatric speech Rate of production: slow 09/23/2017 None Full Exam - General 1994 Constitutional general appearance Overall: in no acute distress 09/23/2017 None Full Exam - General 1994 Psychiatric orientation/consciousness Oriented to person: yes 09/23/2017 None Full Exam - General 1994 Psychiatric orientation/consciousness Oriented to place: yes 09/23/2017 None Full Exam - General 1994 Eyes [...] clear 03/18/2017 None Full Exam - General 1995 Ears/Nose/Throat lips/teeth/gingiva Overall: benign lips 03/18/2017 None [...] Orientation: What is the year/season/date/day/month (5): 5 12/09/2016 None Full Exam - General 1994 Neurologic mental status Orientation: Where are we - state/country/town/hospital/floor (5): 5 12/09/2016 None Full Exam - General 1994 [...] atraumatic 03/13/2015 None Full Exam - General 1995 Constitutional general appearance Development: well developed 01/30/2015 [...] Date ADMIN INFLUENZA VIRUS VAC CPT-4: G0008 02/22/2018 FLU VAC NO PRSV 4 BLANCA 3 YRS+ CPT-4: 33129 02/22/2018 ADMIN INFLUENZA VIRUS VAC CPT-4: G0008 03/18/2017 FLU VACC PRSV FREE INC ANTIG CPT-4: 95377 03/18/2017 INITIAL PREVENTIVE EXAM CPT-4: G0402 07/06/2015 IIV4 FLU VACC NO PRESERV ID Formatting Model/CDA Sections, Assigned to SNOMED CT: [id number] CPT-4: [id number] 03/26/2015 IMMUNIZATION ADMIN CPT -4: 42155 03/26/2015 Vital Signs Date Vital 09/01/2018 Blood Pressure 1: 140/72 Code : 8480-6 BMI: 29.1 Code : 45519-9 Heart Rate 1 : 65 bpm Height: 5'1" SpO2: 99% Weight: 154 lbs 07/29/2018 Blood Pressure 1: 120/68 Code : 8480-6 BMI: 28.5 Code : 89997-7 Heart Rate 1 : 75 bpm Height: 5'1" SpO2: 98% Weight: 151 lbs 05/05/2018 Blood Pressure 1: 120/80 Code : 8480-6 BMI: 29.1 Code : 80890-4 Heart Rate 1 : 76 bpm Height: 5'1" SpO2: 97% Weight: 154 lbs 02/22/2018 Blood Pressure 1: 140/70 Code : 8480-6 BMI: 26.3 Code : 71495-7 Heart Rate 1 : 60 bpm Height: 5'1" SpO2: 97% Weight: 139 lbs 12/29/2017 Blood Pressure 1: 110/58 Code : 8480-6 BMI: 23.8 Code : 15543-8 Heart Rate 1 : 56 bpm Height: 5'1" SpO2: 98% Weight: 126 lbs 10/28/2017 Blood Pressure 1: 96/68 Code : 8480-6 BMI: 21.7 Code : 22938-8 Heart Rate 1 : 68 bpm Height: 5'1" SpO2: 98% Weight: 115 lbs 09/23/2017 Blood Pressure 1: 134/72 Code : 8480-6 BMI: 22.5 Code : 16102-0 Heart Rate 1 : 72 bpm Height: 5'1" SpO2: 97% Weight: 119 lbs 03/18/2017 Blood Pressure 1: 140/72 Code : 8480-6 BMI: 21.5 Code : 99624-9 Heart Rate 1 : 64 bpm Height: 5'1" SpO2: 96% Weight: 114 lbs 03/09/2017 Blood Pressure 1: 120/72 Code : 8480-6 BMI: 21.5 Code : 95211-9 Heart Rate 1 : 75 bpm Height: 5'1" SpO2: 97% Weight: 114 lbs 12/09/2016 Blood Pressure 1: 130/76 Code : 8480-6 BMI: 23.8 Code : 05380-5 Heart Rate 1 : 68 bpm Height: 5'1" SpO2: 98% Weight: 126 lbs 09/08/2016 Blood Pressure 1: 162/80 Code : 8480-6 Blood Pressure 2: 145/90 Code: 8480-6 BMI: 24.7 Code: 11400-9 Heart Rate 1: 77 bpm Height: 5'1" SpO2: 97% Weight: 130 lbs 8 oz 08/11/2016 Blood Pressure 1: 130/80 Code : 8480-6 BMI: 25.9 Code : 38778-4 Heart Rate 1 : 62 bpm Height: 5'1" SpO2: 97% Weight: 137 lbs 07/03/2016 Blood Pressure 1: 134/74 Code : 8480-6 BMI: 26.8 Code : 86195-9 Heart Rate 1 : 74 bpm Height: 5'1" SpO2: 97% Weight: 142 lbs 06/19/2016 Blood Pressure 1: 118/66 Code : 8480-6 Heart Rate 1: 72 bpm SpO2: 96% Weight: 142 lbs 02/04/2016 Blood Pressure 1: 130/80 Code : 8480-6 BMI: 27.2 Code : 35009-8 Heart Rate 1 : 76 bpm Height: 5'1" SpO2: 96% Weight: 144 lbs 01/07/2016 Blood Pressure 1: 136/64 Code : 8480-6 BMI: 27.6 Code : 67816-4 Heart Rate 1 : 73 bpm Height: 5'1" SpO2: 987% Weight: 146 lbs 12/17/2015 Blood Pressure 1: 128/86 Code : 8480-6 BMI: 27.0 Code : 46549-3 Heart Rate 1 : 59 bpm Height: 5'1" SpO2: 96% Weight: 143 lbs 10/16/2015 Blood Pressure 1: 122/78 Code : 8480-6 BMI: 25.7 Code : 51365-4 Heart Rate 1 : 71 bpm Height: 5'1" SpO2: 96% Weight: 136 lbs 08/16/2015 Blood Pressure 1: 138/88 Code : 8480-6 BMI: 27.0 Code : 09971-8 Heart Rate 1 : 75 bpm Height: 5'1" SpO2: 98% Weight: 143 lbs 07/06/2015 Blood Pressure 1: 120/72 Code : 8480-6 BMI: 26.5 Code : 48597-6 Heart Rate 1 : 72 bpm Height: 5'1" SpO2: 96% Weight: 140 lbs 06/07/2015 Blood Pressure 1: 152/86 Code : 8480-6 BMI: 26.1 Code : 35012-8 Heart Rate 1 : 88 bpm Height: 5'1" SpO2: 97% Weight: 138 lbs 05/01/2015 Blood Pressure 1: 120/80 Code : 8480-6 BMI: 27.0 Code : 28650-5 Heart Rate 1 : 82 bpm Height: 5'1" SpO2: 98% Temperature: 36.7 (C) / 98.0 (F) Weight: 143 lbs 03/26/2015 Blood Pressure 1: 140/80 Code : 8480-6 BMI: 28.0 Code : 91029-6 Heart Rate 1 : 69 bpm Height: 5'1" SpO2: 96% Weight: 148 lbs 03/13/2015 Blood Pressure 1: 128/70 Code : 8480-6 BMI: 28.2 Code : 62860-5 Heart Rate 1 : 76 bpm Height: 5'1" Weight: 149 lbs 01/30/2015 Blood Pressure 1: 142/68 Code : 8480-6 BMI: 28.7 Code : 88569-8 Heart Rate 1 : 86 bpm Height: 5'1" SpO2: 96% Weight: 152 lbs 10/16/2014 Blood Pressure 1: 160/88 Code : 8480-6 BMI: 28.2 Code : 85228-5 Heart Rate 1 : 66 bpm Height: 5'1" Weight: 149 lbs Functional Status No Functional Status data History of Present Illness Symptom Name Status Result Effective Date Notes Location oral intake 09/01/2018 None Quality chronic 09/01 None Quality disrupted sleep 09/01/2018 None Onset and Resolution ongoing 09/01/2018 None Location oral intake 07/29/2018 None Quality chronic 07/29 None Additional Comments medication use 05/05/2018 None Location oral intake 05/05/2018 None Quality chronic 05/05 None insomnia Quality difficulty falling asleep 02/22/2018 None insomnia Quality constant 02/22/2018 None insomnia Onset of Symptom 1 months ago 02/22/2018 None food allergy Quality acute 12/29/2017 None food allergy Onset and Resolution sudden in onset 12/29/2017 None food allergy Onset of Symptom 1 months ago 12/29/2017 None food allergy Triggers no known associated factors 12/29/2017 None food allergy Pertinent Findings tongue angioedema 12/29/2017 None nasal allergies Location in both nares 12/29/2017 None nasal allergies Onset and Resolution sudden in onset 12/29/2017 None nasal allergies Onset of Symptom 1 months ago 12/29/2017 None nasal allergies Triggers no known associated factors 12/29/2017 None hypertension Quality constant 12/29/2017 None hypertension Onset of Symptom during adulthood 12/29/2017 None food allergy Quality acute 10/28/2017 None food allergy Onset and Resolution sudden in onset 10/28/2017 None food allergy Onset of Symptom 1 months ago 10/28/2017 None food allergy Triggers no known associated factors 10/28/2017 None food allergy Pertinent Findings tongue angioedema 10/28/2017 None nasal allergies Location in both nares 10/28/2017 None nasal allergies Onset and Resolution sudden in onset 10/28/2017 None nasal allergies Onset of Symptom 1 months ago 10/28/2017 None nasal allergies Triggers no known associated factors 10/28/2017 None medication follow up Location oral intake 09/23/2017 None medication follow up Significant Past Medical History dementia 09/23/2017 None medication follow up Location oral intake 03/18/2017 [...] Codes Date EST. PATIENT, LEVEL III Diagnosis: Other allergic rhinitis[ICD10: J30.89] Angelica Ochoa MD, [facility] CPT-4: 23914 09/01/2018 02321 EST. PATIENT, LEVEL III Diagnosis: Other allergic rhinitis[ICD10: J30.89] [facility] CPT-4: 82369 07/29/2018 55528 EST. PATIENT, LEVEL III Diagnosis: Dementia in other diseases classified elsewhere without behavioral disturbance[ICD10: F02.80] Diagnosis: Major depressive disorder, recurrent, mild[ICD10: F33.0] Diagnosis: Generalized anxiety disorder[ICD10: F41.1] Angelica Ochoa MD, [facility] CPT-4: 63714 05/05/2018 40260 EST. PATIENT, LEVEL III Diagnosis: Other insomnia[ICD10: G47.09] Diagnosis: Dementia in other diseases classified elsewhere without behavioral disturbance[ICD10: F02.80] Diagnosis: Encounter for immunization[ICD10: Z23] Angelica Ochoa MD, [facility] CPT-4: 30215 02/22/2018 14113 EST. PATIENT, LEVEL IV Diagnosis: Dementia in other diseases classified elsewhere without behavioral disturbance[ICD10: F02.80] Diagnosis: Major depressive disorder, recurrent, mild[ICD10: F33.0] Diagnosis: Other allergic rhinitis[ICD10: J30.89] Angelica Ochoa MD, [facility] CPT-4: 39674 12/29/2017 ([id number]) 08756 EST. PATIENT, LEVEL IV Diagnosis: Dementia in other diseases classified elsewhere without behavioral disturbance[ICD10: F02.80] Diagnosis: Major depressive disorder, recurrent, mild[ICD10: F33.0] Diagnosis: Allergy to other foods[ICD10: Z91.018] Marylu Ochoa MD, [facility] CPT-4: 92436 10/28/2017 45208 EST. 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 PATIENT, LEVEL IV Diagnosis: Essential (primary) hypertension[ICD10: I10] Diagnosis: Major depressive disorder, recurrent, moderate[ICD10: F33.1] Diagnosis: Underweight[ICD10: R63.6] Diagnosis: Localization-related (focal) (partial) symptomatic epilepsy and epileptic syndromes with simple partial seizures, not intractable, without status epilepticus[ICD10: G40.109] Marylu Ochoa MD, [facility] CPT-4: 29987 03/09/2017 ([id number]) 80898 EST. PATIENT, LEVEL IV Diagnosis: Mixed hyperlipidemia[ICD10: E78.2] Diagnosis: Chronic pain syndrome[ICD10: G89.4] Diagnosis: Major depressive disorder, recurrent, mild[ICD10: F33.0] Marylu Ochoa MD, [facility] CPT-4: 06034 12/09/2016 ([id number]) 73426 EST. PATIENT, LEVEL IV Diagnosis: Essential (primary) hypertension[ICD10: I10] Diagnosis: Low back pain[ICD10: M54.5] Diagnosis: Personal history of transient ischemic attack (TIA), and cerebral infarction without residual deficits[ICD10: Z86.73] Diagnosis: Major depressive disorder, recurrent, moderate[ICD10: F33.1] Diagnosis: Other sleep apnea[ICD10: G47.39] Marylu Ochoa MD, [facility] CPT-4: 67351 09/08/2016 ([id number]) 32910 EST. PATIENT, LEVEL IV Diagnosis: Mixed hyperlipidemia[ICD10: E78.2] Diagnosis: Other transient cerebral ischemic attacks and related syndromes[ICD10 : G45.8] Marylu Ochoa MD, [facility] CPT-4: 43601 2016 94921 EST. PATIENT, LEVEL III Diagnosis: Chronic pain syndrome[ICD10: G89.4] Diagnosis: Low back pain[ICD10: M54.5] Diagnosis: Major depressive disorder, recurrent, mild[ICD10: F33.0] Diagnosis: Mild cognitive impairment, so stated[ICD10: G31.84] Angelica Ochoa MD, [facility] CPT-4: 66903 07/03/2016 ([id number]) 04636 EST. PATIENT, LEVEL III Diagnosis: Chronic pain syndrome[ICD10: G89.4] Donna Ochoa MD, [facility] CPT-4: 00050 06/19/2016 ([id number]) 87685 EST. PATIENT, LEVEL IV Diagnosis: Chronic pain syndrome[ICD10: G89.4] Diagnosis: Mild cognitive impairment, so stated[ICD10: G31.84] Donna Ochoa MD, [facility] CPT-4: 98103 02/04/2016 ([id number]) 80022 EST. PATIENT, LEVEL IV Diagnosis: Chronic pain syndrome[ICD10: G89.4] Diagnosis: Mild cognitive impairment, so stated[ICD10: G31.84] Diagnosis: Major depressive disorder, recurrent, mild[ICD10: F33.0] Donna Ochoa MD , [facility] CPT-4: 27959 01/07/2016 ([id number]) 45006 EST. PATIENT, LEVEL IV Diagnosis: Chronic pain syndrome[ICD10: G89.4] Diagnosis: Headache[ICD10: R51] Diagnosis: Major depressive disorder, recurrent, mild[ICD10: F33.0] Diagnosis: Mixed hyperlipidemia[ICD10: E78.2] Donna Ochoa MD, [facility] CPT-4: 16092 12/17/2015 ([id number]) 05003 EST. PATIENT, LEVEL III Diagnosis: Chronic pain syndrome[ICD10: G89.4] Diagnosis: Major depressive disorder, recurrent, mild[ICD10: F33.0] Donna Ochoa MD , [facility] CPT-4: 16337 10/16/2015 ([id number]) 58908 EST. PATIENT, LEVEL III Diagnosis: Low back pain[ICD10: M54.5] Donna Ochoa MD, [facility] CPT-4: 63547 08/16/2015 ([id number]) 03623 EST. 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 PATIENT, LEVEL IV Diagnosis: Major depressive disorder, recurrent, mild[ICD10: F33.0] Diagnosis: Chronic pain syndrome[ICD10: G89.4] Diagnosis: Other fatigue[ICD10: R53.83] Donna Ochoa MD, [facility] CPT-4: 32803 05/01/2015 ([id number]) 16238 EST. PATIENT, LEVEL II Diagnosis: Plantar fascial fibromatosis[ICD10: M72.2] Donna Ochoa MD, [facility] CPT-4: 14793 03/26/2015 ([id number]) 78284 EST. PATIENT, LEVEL III Diagnosis: Plantar fascial fibromatosis[ICD10: M72.2] Donna Ochoa MD, [facility] CPT-4: 19183 03/13/2015 ([id number]) 20039 EST. PATIENT, LEVEL III Diagnosis: Hyperlipidemia[ICD9: 272.4] Diagnosis: ALLERGIC RHINITIS[ICD9: 477.9] Diagnosis: Chronic pain syndrome[ICD9: 338.4] Donna Ochoa MD, [facility] CPT-4: 26888 01/30/2015 ([id number]) OFFICE VISIT, NEW - LEVEL 4 Diagnosis: ESOPHAGEAL REFLUX[ICD9: 530.81] Diagnosis: Peripheral neuropathy[ICD9: 356.9] Diagnosis: Chronic pain syndrome[ICD9: 338.4] Diagnosis: OSTEOARTH NOS-UNSPEC[ICD9: 715.90] Diagnosis: DEPRESSIVE DISORDER NEC[ICD9: 311] Marylu Ochoa MD, [facility] CPT-4: 79831 10/16/2014 Plan of Care Planned Activity Notes Codes Status Date Visit Plan: Allergies - chronic - recommended pt to [...] spray in the nasal steroid allergy spray. 09/01/2018 Patient Education: Patient Medication Summary Completed 09/01/2018 Visit Plan: Allergies - chronic - recommended pt to [...] spray in the nasal steroid allergy spray. 07/29/2018 Appointment: Angelica [place] WPtel: [facility] (30 min) Complex 07/29/2018 Patient Education: Patient Medication Summary Completed 07/29/2018 Visit Plan: Anxiety - the patient has uncontrolled anxiety and will benefit from an SSRI on a daily basis to attempt control of the symptoms of anxiety (tachycardia, overwhelming sensations, stress, insomnia, etc ). Pt is aware of the risks and [...] has been appropriately prescribed for this patient. Dementia - Pt with slowly progressive pattern. I have discussed with pt and family the prognosis of this disease state and the need for the family to anticipate further decline with behavior changes. Continue with current plan of treatment. 05/05/2018 Appointment: Angelica Cuba WPtel: [address] [place], [place] [phone] (30 min) Complex 05/05/2018 Patient Education: Patient Medication Summary Completed 05/05/2018 Patient Education: Depression Completed 05/05/2018 Appointment: Angelica Cuba WPtel: [facility] (15 min) Moderate 03/24/2018 Visit Plan: Insomnia - Pt has been advised to increase the light in the house during the day, and start dimming the lights during the evening hours. Pt has been advised to cut out caffeine after 5pm. Daytime napping worsens night time insomnia. Dementia - Pt with slowly progressive pattern. I have discussed with pt and family the prognosis of this disease state and the need for the family to anticipate further decline with behavior changes. Continue with current plan of treatment. 02/22/2018 Appointment: Angelica Cuba WPtel: [facility] (15 min) Moderate 02/22/2018 Appointment: Angelica Cuba WPtel: [facility] (15 min) Moderate 02/22/2018 Patient Education: Patient Medication Summary Completed 02/22/2018 Appointment: Angelica Cuba WPtel: [facility]6 [facility] (15 min) Moderate 02/18/2018 Visit Plan: Dementia - Pt with slowly progressive pattern. I have discussed with pt and family the prognosis of this disease state and the need for the family to anticipate further decline with behavior changes. Continue with current plan of treatment. Notify clinic if Dr. Renteria makes any changes Chronic Depression and anxiety - the pt has symptoms of chronic anxiety and depression that have been fairly well controlled since the last office visit. The pt has expected periods of exacerbation with abatement of the symptoms with change in situational exposure. No change in current medications. Allergies - chronic - recommended pt to use allergy medication as prescribed. Pt has been counseled as to the appropriate use of the medication. Pt to call if allergy symptoms are not controlled with the medication. 12/29/2017 Patient Education: Patient Medication Summary Completed 12/29/2017 Appointment: Angelica Cuba WPtel: [address] [place], [place] [id number] (15 min) Moderate 12/23/2017 Patient Education: Patient Medication Summary Completed 11/03/2017 Visit Plan: Dementia - progressive illness - the pt is to continue with adalgisa - she was taken off of the namenda by the neurologist due to symptoms of diarrhea. Food allergy and seasonal allergies - instructed as follows: have Roxy start on zantac 75mg twice daily - this is an acid reducing medication, but it also helps to decrease the histamine response that she is having to the foods. I also want you to start on the flonase that she has at home - use it twice daily. stop the adalgisa start on zyrtec instead of adalgisa. 10/28/2017 Appointment: Marylu Ochoa WPtel: [facility] (15 min) Moderate 10/28/2017 Patient Education: Patient Medication Summary Completed 10/28/2017 Visit Plan: Chronic Depression and anxiety - the pt has symptoms of chronic anxiety and depression that have been fairly well controlled since the last office visit. The pt has expected periods of exacerbation with abatement of the symptoms with change in situational exposure. No change in current medications. CVA - defer to neurology Hypertension - pt is to make a follow up appointment with her automotive service porter - The patient has been counseled to [...] pt is to call for acute concerns. 09/23/2017 Appointment: Angelica Cuba WPtel: [facility] (30 min) Complex 09/23/2017 Patient Education: Patient Medication Summary Completed 09/23/2017 Appointment: Mraylu Ochoa WPtel: [facility] (15 min) Moderate 08/26/2017 Appointment: Angelica Cuba WPtel: [facility] (30 min) Complex 06/30/2017 Referral: External, Ordering Provider Referral Initiated 05/27/2017 Care Plan: Referral Order SNOMED-CT : [id number] Pending 04/20/2017 Visit Plan: Anxiety - the [...] make a follow up appointment with her automotive service porter - The patient has been counseled to [...] home. 03/09/2017 Appointment: [facility] [phone] [facility] (30 min) Complex 03/09/2017 Patient Education: Patient Medication Summary Completed 03/09/2017 Appointment: Donna Walden [facility]el[facility] [address] [phone] (30 min) Complex 03/06/2017 Appointment: Marylu Ochoa WPtel: [facility]5 [facility] (15 min) Moderate 01/08/2017 Visit Plan: Hyperlipidemia [...] Summary Completed 12/09/2016 Appointment: Marylu Ochoa WPtel: [address] [place], [place] [phone] (15 min) Moderate 11/11/2016 Appointment: Angelica Cuba WPtel: [address] [place], [place] [phone] (30 min) Complex 10/09/2016 Visit Plan: Hypertension [...] of Aricept through [facility], refill namenda 09/08/2016 Visit Plan: Hypertension - [...] loss, htn. 09/08/2016 Appointment: Marylu Ochoa WPtel: [facility]5 [facility] (15 min) Moderate 09/08/2016 Patient Education: Patient Medication Summary Completed 09/08/2016 Appointment: Angelica Cuba WPtel: [facility] (30 min) Complex 08/19/2016 Visit Plan: Hyperlipidemia [...] with plavix 08/11/2016 Appointment: Marylu Ochoa WPtel: [facility] (15 min) Moderate 08/11/2016 Patient Education: Patient [...] or concerns. 07/03/2016 Appointment: Angelica Cuba WPtel: [phone] (30 min) Complex 07/03/2016 Patient Education: Patient Medication Summary Completed 07/03/2016 Care Plan: Referral Order SNOMED-CT : [id number] Pending 07/03/2016 Visit Plan: Chronic Pain Syndrome - pt has chronic pain - has been maintained on current medications, has not sought out other medications , only uses PRN pain medications as directed, and understands the consequences of over-medication. 06/19/2016 Appointment: Donna Walden WPtel: [phone] (30 min) Complex 06/19/2016 Patient Education: Patient Medication Summary Completed 06/19/2016 Appointment: Donna Walden [facility]Ptel[phone] (30 min) Complex 06/05/2016 Visit Plan: Chronic Pain Syndrome - pt has chronic pain - has been maintained on current medications, has not sought out other medications , only uses PRN pain medications as directed, and understands the consequences of over-medication. Mild cognitive impairment-discussed with Dr Ochoa- Judson starter pack 02/04/2016 Appointment: Donna Walden WPtel: [id number] [place] [address] (30 min) Complex 02/04/2016 Patient Education: Patient Medication Summary Completed 02/04/2016 Appointment: Donna Walden WPtel: [id number] [place] [address] (30 min) Complex 01/14/2016 Visit Plan: Chronic [...] of testing. 01/07/2016 Appointment: Donna Walden WPtel: [address] [place], [place] [id number] [place] [address] (15 min) Moderate 01/07/2016 Patient Education: Patient Medication Summary Completed 01/07/2016 Visit Plan: Chronic Pain Syndrome - pt has chronic pain - has been maintained on current medications, has not sought out other medications , only uses PRN pain medications as directed, and understands the consequences of over-medication. Headaches-memory loss-schedule MRI brain Hyperlipidemia- check fasting labs [id number] change in medications at this time 12/17/2015 Patient Education: Patient Medication Summary Completed 12/17/2015 Appointment: Donna Walden WPtel: [phone] (30 min) Complex 12/13/2015 Visit Plan: Chronic [...] No change in current medications. 10/16/2015 Appointment: Win Donan [facility]el[facility] [phone] (30 min) Complex 10/16/2015 Patient Education: Patient [...] pain symptoms. 06/07/2015 [phone] (15 min) Moderate 06/07/2015 Patient Education: Patient [...] shoes - discussed inserts and referral to global sales executive-patient wants to wait but will let us [...] pain symptoms. 10/16/2014 Appointment: [phone] [place] New Patient 10/16/2014 Patient Education: Patient Medication Summary Completed 10/16/2014 Patient Education: Hypertension Completed 10/16/2014 Referral: Betsy Samuels Referral Initiated Referral: External, Ordering Provider Referral Relationship Instructions Comment . Chronic Depression and anxiety - the pt has symptoms of chronic anxiety and depression that have been fairly well controlled since the last office visit. The pt has expected periods of exacerbation with abatement of the symptoms with change in situational exposure. No change in current medications. 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 . Plantar fasciitis- pt was educated that [...] supportive shoes -discussed inserts and referral to global sales executive-patient wants to wait but will let us [...] and to maintain independece in the home. . Allergies - chronic - recommended pt to [...] spray in the nasal steroid allergy spray. restart cymbalta 30mg daily once the liquid [...] change in blood pressure readings at home. Zaditor eye drops Flonase nasal spray - twice a day for allergies . Allergies - chronic - recommended pt to [...] spray in the nasal steroid allergy spray. INCREASE SERTRALINE TO 1.5 TABLETS DAILY . [...] Headaches-memory loss-schedule MRI brain Hyperlipidemia-check fasting labs Smjipmlryf-[id number] change in medications at this time call [...] Use tylenol for break through pain symptoms. . Dementia - Pt with slowly progressive pattern. I have discussed with pt and family the prognosis of this disease state and the need for the family to anticipate further decline with behavior changes. Continue with current plan of treatment. Notify clinic if Dr. Renteria makes any changes Chronic Depression and anxiety - the pt has symptoms of chronic anxiety and depression that have been fairly well controlled since the last office visit. The pt has expected periods of exacerbation with abatement of the symptoms with change in situational exposure. No change in current medications. Allergies - chronic - recommended pt to use allergy medication as prescribed. Pt has been counseled as to the appropriate use of the medication. Pt to call if allergy symptoms are not controlled with the medication. mammogram order - given to patient - she is to schedule in [place] . Chronic Pain Syndrome - pt has [...] 90 day supply of Aricept through [facility] Add 50 mg Losartan daily for hypertension [...] 90 day supply of Aricept through [facility], refill namenda Refill Cymbalta Voltaren gel for low back pain 90 day supply of Aricept through [facility] Add 50 mg Losartan daily for hypertension [...] notify clinic with any questions or concerns. i want to have Roxy start on zantac 75mg twice daily - this is an acid reducing medication, but it also helps to decrease the histamine response that she is having to the foods. I also want you to start on the flonase that she has at home - use it twice daily. stop the adalgisa start on zyrtec instead of adalgisa . Dementia - progressive illness - the pt is to continue with adalgisa - she was taken off of the namenda by the neurologist due to symptoms of diarrhea. Food allergy and seasonal allergies - instructed as follows: have Roxy start on zantac 75mg twice daily - this is an acid reducing medication, but it also helps to decrease the histamine response that she is having to the foods. I also want you to start on the flonase that she has at home - use it twice daily. stop the adalgisa start on zyrtec instead of adalgisa. Diazepam 2mg 1/2 to 1 tab twice a day as needed for agitation flu shot today will check b12 level and do b12 shot with next appointment if needed. Will make her a follow up appointment with Dr. Vo Will see about referring her to Dr. Dexter Buckley (neurologist) . Anxiety - the patient has [...] make a follow up appointment with her automotive service porter - The patient has been counseled to [...] pt is to call for acute concerns. turn the lights down in the evening try lavender lotion in the evening decrease fluid intake after 7PM In the morning wake up and stay up regardless of the time you fell asleep - see if we can reset your sleep schedule. Insomnia - Pt has been advised to increase the light in the house during the day, and start dimming the lights during the evening hours. Pt has been advised to cut out caffeine after 5pm. Daytime napping worsens night time insomnia. Dementia - Pt with slowly progressive pattern. I have discussed with pt and family the prognosis of this disease state and the need for the family to anticipate further decline with behavior changes. Continue with current plan of treatment. . Chronic Depression and anxiety - the [...] the patient's termination from this medical practice. restart cymbalta 30mg daily after 1 week of taking the cymbalta then add on the aricept 5mg daily, continue the namenda 10mg daily after 1 month will change your aricept and namenda to a combination pill namzaric let me know if you are having any other questions or concerns. . Anxiety - the patient has uncontrolled anxiety and will benefit from an SSRI on a daily basis to attempt control of the symptoms of anxiety (tachycardia, overwhelming sensations, stress, insomnia, etc). Pt is aware of the risks and [...] has been appropriately prescribed for this patient. Dementia - Pt with slowly progressive pattern. I have discussed with pt and family the prognosis of this disease state and the need for the family to anticipate further decline with behavior changes. Continue with current plan of treatment. Judson starter pack . Chronic Pain Syndrome [...]
--- OUTSIDE RECORDS SUMMARY | 2018-09-20 05:22 | XMS REPORT | CCD ---
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 Role Phone PP Unavailable CCM Unavailable Summary Purpose Interface Exchange Insurance Providers Payer name Policy type / Coverage type Covered democrat ID Effective Begin Date Effective End Date WPS Medicare Part B Medicare Part B [id number] 2015 Unknown [facility] Medicare Part B [id number] 2015 Unknown Family history Mother Diagnosis Age [...] Unknown Retired 10/16/[address]: 942243005 Never smoker 10/16/[address]: 418539809 Never drinks alcohol 10/16/2014 Allergies, Adverse Reactions, [...] hydrocodone 10 mg-acetaminophen 325 mg tablet RxNorm: 985381 1 Tablet(s) PO Q6 as needed 07/29/2018 08/27/2018 Inactive levocetirizine 5 mg tablet RxNorm: 900269 1 Tablet(s) PO QHS 08/27/2018 Inactive hydrocodone 10 mg-acetaminophen 325 mg tablet RxNorm: 071795 1 Tablet(s) PO Q6 as needed 07/07/2018 07/28/2018 Inactive hydrocodone 10 mg-acetaminophen 325 mg tablet RxNorm: 514713 1 Tablet(s) PO Q6 as needed 06/08/2018 07/06/2018 Inactive Cymbalta 30 mg capsule,delayed release RxNorm: 720470 1 CAPSULE(S) PO DAILY 05/07/2018 11/02/2018 Active hydrocodone 10 mg-acetaminophen 325 mg tablet RxNorm: 075919 1 Tablet(s) PO Q6 as needed may fill on 03-27-18 04/28/201802/2019 Inactive diazepam 5 mg tablet RxNorm: 272149 1/2 Tablet(s) PO QHS as needed 04/13/2018 06/11/2018 Inactive hydrocodone 10 mg-acetaminophen 325 mg tablet RxNorm: 029069 1 Tablet(s) PO Q6 as needed may fill on 03-27-18 03/22/201808/2017 Inactive Aricept 10 mg tablet RxNorm: 957155 1 TABLET(S) PO DAILY 201707/12/2018 Inactive hydrocodone 10 mg-acetaminophen 325 mg tablet RxNorm: 686608 1 Tablet(s) PO Q6 as needed 02/26/2018 03/21/2018 Inactive diazepam 5 mg tablet RxNorm: 999365 1/2 Tablet(s) PO QHS as needed 02/22/2018 03/22/2018 Inactive hydrocodone 10 mg-acetaminophen 325 mg tablet RxNorm: 937716 1 Tablet(s) PO Q6 as needed 02/05/2018 02/25/2018 Inactive levetiracetam 500 mg tablet RxNorm: 036769 1 TABLET(S) PO BID 01/07/2018 04/06/2018 Inactive pt to finish out supply of liquid then start on tablets hydrocodone 10 mg-acetaminophen 325 mg tablet RxNorm: 968605 1 Tablet(s) PO Q6 as needed 12/29/2017 01/27/2018 Inactive hydrocodone 10 mg-acetaminophen 325 mg tablet RxNorm: 719895 1 Tablet(s) PO Q6 as needed 12/10/2017 12/28/2017 Inactive Zyrtec 10 mg tablet RxNorm: 2967025 1 Tablet(s) PO QAM for allergies 10/28/2017 05/25/2018 Inactive Zantac 75 mg tablet RxNorm: 773216 1 Tablet(s) PO BID 201702/24/2018 Inactive Aricept 10 mg tablet RxNorm: 766376 1 TABLET(S) PO DAILY 201702/23/2018 Inactive Cymbalta 30 mg capsule,delayed release RxNorm: 030986 1 Capsule(s) PO daily 10/22/2017 05/06/2018 Inactive hydrocodone 10 mg-acetaminophen 325 mg tablet RxNorm: 274827 1 Tablet(s) PO Q6 as needed 10/20/2017 11/18/2017 Inactive Voltaren 1 % topical gel RxNorm: 059508 4 Gram(s) TOP TID as needed for pain as needed 09/23/2017 09/17/2018 Active levetiracetam 500 mg tablet RxNorm: 944394 1 TABLET(S) PO BID 09/21/2017 10/20/2017 Inactive pt to finish out supply of liquid then start on tablets hydrocodone 10 mg-acetaminophen 325 mg tablet RxNorm: 595424 1 Tablet(s) PO Q6 as needed 08/27/2017 09/25/2017 Inactive Aricept 10 mg tablet RxNorm: 861945 1 Tablet(s) PO daily 201709/16/2017 Inactive Aricept 10 mg tablet RxNorm: 461369 1 Tablet(s) PO daily 201708/17/2017 Inactive hydrocodone 10 mg-acetaminophen 325 mg tablet RxNorm: 929860 1 Tablet(s) PO Q6 as needed 07/28/2017 08/26/2017 Inactive Zithromax Z-Myles 250 mg tablet RxNorm: 394531 1 Tablet(s) PO UD 06/25/2017 09/20/2017 Inactive hydrocodone 10 mg-acetaminophen 325 mg tablet RxNorm: 370351 1 Tablet(s) PO Q6 as needed 06/17/2017 07/16/2017 Inactive Namenda XR 28 mg capsule sprinkle,extended release RxNorm: 231378 1 Capsule(s) PO daily 05/08/2017 05/02/2018 Inactive Aricept 10 mg tablet RxNorm: 100014 1 Tablet(s) PO daily 201608/05/2017 Inactive hydrocodone 10 mg-acetaminophen 325 mg tablet RxNorm: 456670 1 Tablet(s) PO Q6 as needed 05/05/2017 06/03/2017 Inactive hydrocodone 10 mg-acetaminophen 325 mg tablet RxNorm: 236154 1 Tablet(s) PO Q6 as needed 04/06/2017 05/04/2017 Inactive diazepam 2 mg tablet RxNorm: 552886 1/2 - 1 Tablet(s) PO BID as needed 03/18/2017 09/20/2017 Inactive Cymbalta 30 mg capsule,delayed release RxNorm: 301164 1 Capsule(s) PO daily 03/09/2017 10/04/2017 Inactive levetiracetam 500 mg tablet RxNorm: 675026 1 Tablet(s) PO BID 03/09/2017 08/05/2017 Inactive pt to finish out supply of liquid then start on tablets Aricept 5 mg tablet RxNorm: 574451 1 Tablet(s) PO daily 201605/07/2017 Inactive pantoprazole 40 mg tablet,delayed release RxNorm: 026109 1 Tablet(s) PO daily 03/09/2017 07/06/2017 Inactive hydrocodone 10 mg-acetaminophen 325 mg tablet RxNorm: 379044 1 Tablet(s) PO Q6 as needed 12/04/2016 03/08/2017 Inactive hydrocodone 10 mg-acetaminophen 325 mg tablet RxNorm: 251089 1 Tablet(s) PO Q6 as needed 11/06/2016 12/03/2016 Inactive hydrocodone 10 mg-acetaminophen 325 mg tablet RxNorm: 638877 1 Tablet(s) PO Q6 as needed 10/08/2016 11/05/2016 Inactive Voltaren 1 % topical gel RxNorm: 090610 4 Gram(s) TOP TID as needed for pain as needed 09/25/2016 09/19/2017 Inactive hydrocodone 10 mg-acetaminophen 325 mg tablet RxNorm: 846881 1 Tablet(s) PO Q6 as needed 09/09/2016 10/07/2016 Inactive Voltaren 1 % topical gel RxNorm: 209272 1 Application TOP TID 09/08/2016 09/24/2016 Inactive Aricept 5 mg tablet RxNorm: 343187 1 Tablet(s) PO daily 201612/06/2016 Inactive Cymbalta 30 mg capsule,delayed release RxNorm: 701627 1 Capsule(s) PO daily 09/08/2016 12/06/2016 Inactive losartan 50 mg tablet RxNorm: 828735 1 Tablet(s) PO daily 201610/07/2016 Inactive clopidogrel 75 mg tablet RxNorm: 997872 75 MG PO DAILY 201609/20/2017 Inactive hydrocodone 10 mg-acetaminophen 325 mg tablet RxNorm: 134568 1 Tablet(s) PO Q6 as needed 08/15/2016 09/08/2016 Inactive hydrocodone 10 mg-acetaminophen 325 mg tablet RxNorm: 909932 1 Tablet(s) PO Q6 as needed 07/18/2016 08/14/2016 Inactive Cymbalta 30 mg capsule,delayed release RxNorm: 662263 1 Capsule(s) PO daily 07/03/2016 09/07/2016 Inactive Aricept 5 mg tablet RxNorm: 641556 1 Tablet(s) PO daily 201608/01/2016 Inactive Namenda XR 28 mg capsule sprinkle,extended release RxNorm: 711296 1 Capsule(s) PO daily 07/03/2016 05/07/2017 Inactive diazepam 5 mg tablet RxNorm: 809994 Tablet(s) PO daily as needed TAKE 1/2 TO 1 TABLET BY MOUTH DAILY NEEDED FOR ANXIETY 06/25/2016 03/06/2017 Inactive hydrocodone 10 mg-acetaminophen 325 mg tablet RxNorm: 110501 1 Tablet(s) PO Q6 as needed 06/19/2016 07/17/2016 Inactive Namenda XR 28 mg capsule sprinkle,extended release RxNorm: 468829 1 Capsule(s) PO daily 06/19/2016 07/02/2016 Inactive gabapentin 100 mg capsule RxNorm: 755283 1 Capsule(s) PO TID 03/08/2017 Inactive hydrocodone 10 mg-acetaminophen 325 mg tablet RxNorm: 495390 1 Tablet(s) PO Q6 as needed 05/27/2016 06/18/2016 Inactive diazepam 5 mg tablet RxNorm: 346402 Tablet(s) TAKE 1/2 TO 1 TABLET BY MOUTH DAILY NEEDED FOR ANXIETY 05/15/20162016 Inactive hydrocodone 10 mg-acetaminophen 325 mg tablet RxNorm: 667246 1 Tablet(s) PO Q6 as needed 04/29/2016 05/26/2016 Inactive omeprazole 40 mg capsule,delayed release RxNorm: 196114 Capsule(s) 1 CAPSULE(S) PO DAILY 04/28/2016 03/08/2017 Inactive diazepam 5 mg tablet RxNorm: 265633 Tablet(s) TAKE 1/2 TO 1 TABLET BY MOUTH DAILY NEEDED FOR ANXIETY 04/14/20162017 Inactive hydrocodone 10 mg-acetaminophen 325 mg tablet RxNorm: 937948 1 Tablet(s) PO Q6 as needed 04/01/2016 04/28/2016 Inactive Namenda XR 28 mg capsule sprinkle,extended release RxNorm: 290025 1 Capsule(s) PO daily 03/13/2016 06/18/2016 Inactive Namenda XR 28 mg capsule sprinkle,extended release RxNorm: 488553 1 Capsule(s) PO daily 03/12/2016 03/12/2016 Inactive diazepam 5 mg tablet RxNorm: 425818 Tablet(s) TAKE 1/2 TO 1 TABLET BY MOUTH DAILY NEEDED FOR ANXIETY 02/25/20162017 Inactive Namenda XR 28 mg capsule sprinkle,extended release RxNorm: 606527 1 Capsule(s) PO daily 02/04/2016 03/11/2016 Inactive hydrocodone 10 mg-acetaminophen 325 mg tablet RxNorm: 467501 1 Tablet(s) PO Q6 as needed 02/04/2016 03/04/2016 Inactive omeprazole 40 mg capsule,delayed release RxNorm: 999727 1 CAPSULE(S) PO DAILY 01/23/2016 04/27/2016 Inactive [SAVINGS FOR NON-COVERED DRUGS -- BIN:[id number], PCN: [id number], Group: XXXXX, ID# [id number], Questions: . THIS IS NOT INSURANCE.] sertraline 50 mg tablet RxNorm: 162679 TAKE 1 1/2 TABLET BY MOUTH ONCE DAILY 01/10/2016 03/08/2017 Inactive hydrocodone 10 mg-acetaminophen 325 mg tablet RxNorm: 308975 1 Tablet(s) PO Q6 as needed 01/07/2016 02/03/2016 Inactive diazepam 5 mg tablet RxNorm: 426779 Tablet(s) TAKE 1/2 TO 1 TABLET BY MOUTH DAILY NEEDED FOR ANXIETY 12/17/20152017 Inactive hydrocodone 10 mg-acetaminophen 325 mg tablet RxNorm: 823762 1 Tablet(s) PO Q6 as needed 12/10/2015 01/06/2016 Inactive gabapentin 100 mg capsule RxNorm: 875709 1 Capsule(s) PO TID 03/11/2016 Inactive gabapentin 100 mg capsule RxNorm: 163503 1 Capsule(s) PO TID 11/12/2015 Inactive hydrocodone 10 mg-acetaminophen 325 mg tablet RxNorm: 087505 1 Tablet(s) PO Q6 as needed 11/12/2015 12/09/2015 Inactive hydrocodone 10 mg-acetaminophen 325 mg tablet RxNorm: 836154 1 Tablet(s) PO Q6 as needed 10/16/2015 11/11/2015 Inactive hydrocodone 10 mg-acetaminophen 325 mg tablet RxNorm: 205652 1 Tablet(s) PO Q6 as needed 09/17/2015 10/15/2015 Inactive hydrocodone 10 mg-acetaminophen 325 mg tablet RxNorm: 887244 1 Tablet(s) PO Q6 as needed 08/16/2015 09/16/2015 Inactive diazepam 5 mg tablet RxNorm: 245008 Tablet(s) TAKE 1/2 TO 1 TABLET BY MOUTH DAILY NEEDED FOR ANXIETY 07/30/20152015 Inactive diazepam 5 mg tablet RxNorm: 083991 Tablet(s) TAKE 1/2 TO 1 TABLET BY MOUTH DAILY NEEDED FOR ANXIETY 07/27/20152015 Inactive hydrocodone 10 mg-acetaminophen 325 mg tablet RxNorm: 834938 1 Tablet(s) PO Q6 as needed 07/19/2015 08/15/2015 Inactive omeprazole 40 mg capsule,delayed release RxNorm: 439971 1 CAPSULE(S) PO DAILY 07/19/2015 01/14/2016 Inactive [SAVINGS FOR NON-COVERED DRUGS -- BIN:[id number], PCN: [id number], Group: XXXXX, ID# [id number], Questions: . THIS IS NOT INSURANCE.] hydrocodone 10 mg-acetaminophen 325 mg tablet RxNorm: 336064 1 Tablet(s) PO Q6 as needed 06/20/2015 07/18/2015 Inactive baclofen 10 mg tablet RxNorm: 949547 1 Tablet(s) PO TID 201506/07/2015 Inactive baclofen 10 mg tablet RxNorm: 614287 1 Tablet(s) PO TID 201507/07/2015 Inactive diazepam 5 mg tablet RxNorm: 686110 TAKE 1/2 TO 1 TABLET BY MOUTH DAILY NEEDED FOR ANXIETY 05/29/2015 04/12/2018 Inactive sertraline 50 mg tablet RxNorm: 284073 1.5 Tablet(s) PO daily 05/02/2015 10/28/2015 Inactive sertraline 50 mg tablet RxNorm: 615293 1.5 Tablet(s) PO daily 05/01/2015 05/01/2015 Inactive patient to call when needed diazepam 5 mg tablet RxNorm: 328595 1/2-1 Tablet(s) PO QDAY PRN 05/01/2015 05/29/2015 Inactive hydrocodone 10 mg-acetaminophen 325 mg tablet RxNorm: 401417 1 Tablet(s) PO Q6 as needed 04/23/2015 06/19/2015 Inactive hydrocodone 10 mg-acetaminophen 325 mg tablet RxNorm: 897066 1 Tablet(s) PO Q6 as needed 03/26/2015 04/22/2015 Inactive hydrocodone 10 mg-acetaminophen 325 mg tablet RxNorm: 628361 1 Tablet(s) PO Q6 as needed 02/26/2015 03/25/2015 Inactive Lyrica 50 mg capsule RxNorm: 994320 1 Capsule(s) PO TID 201402/03/2016 Inactive Lyrica 50 mg capsule RxNorm: 872022 1 Capsule(s) PO TID 201402/05/2015 Inactive Fish Oil [place] 3-6-9 300 mg-1,000 mg capsule,delayed release RxNorm: 1 Capsule(s) PO BID 01/30/2015 08/10/2016 Inactive diazepam 5 mg tablet RxNorm: 173406 1 Tablet(s) PO Q8 as needed 01/30/2015 04/30/2015 Inactive hydrocodone 10 mg-acetaminophen 325 mg tablet RxNorm: 934880 1 Tablet(s) PO Q6 as needed 01/19/2015 02/25/2015 Inactive sertraline 50 mg tablet RxNorm: 782098 1 Tablet(s) PO daily 04/30/2015 Inactive hydrocodone 10 mg-acetaminophen 325 mg tablet RxNorm: 751432 1 Tablet(s) PO Q6 as needed 12/12/2014 01/18/2015 Inactive hydrocodone 10 mg-acetaminophen 325 mg tablet RxNorm: 348542 1 Tablet(s) PO Q6 as needed 11/09/2014 12/11/2014 Inactive diazepam 5 mg tablet RxNorm: 688070 1 Tablet(s) PO Q8 as needed 11/01/2014 01/29/2015 Inactive omeprazole 40 mg capsule,delayed release RxNorm: 20020626 1 Capsule(s) PO daily 10/02/2014 04/30/2015 Inactive [SAVINGS FOR NON-COVERED DRUGS -- BIN:[id number], PCN: ASPROD1, Group: XXXXX, ID# [id number], Questions: . THIS IS NOT INSURANCE.] omeprazole 40 mg capsule,delayed release RxNorm: 20020626 1 Capsule(s) PO daily 10/02/2014 10/01/2014 Inactive melatonin 3 mg tablet RxNorm: 075452 1 Tablet(s) PO QHS No Start Date Active Vitamin D3 oral RxNorm : 2418 oral No Start Date Active diclofenac sodium 75 mg tablet,delayed release RxNorm: 969680 2 Tablet(s) PO daily No Start Date 04/30/2015 Inactive diazepam 5 mg tablet RxNorm: 705143 1 Tablet(s) PO TID No Start Date 10/31/2014 Inactive Multi Vitamin oral RxNorm: oral No Start Date 03/08/2017 Inactive Flonase nasal RxNorm: 56274 nasal No Start Date 03/08/2017 Inactive gabapentin 100 mg tablet RxNorm: 353160 1 Tablet(s) PO TID No Start Date 02/06/2015 Inactive hydrocodone 10 mg-acetaminophen 325 mg tablet RxNorm: 062833 1 Tablet(s) PO QID No Start Date 11/08/2014 Inactive Zithromax Z-Myles 250 mg tablet RxNorm: 046905 1 Tablet(s) PO UD No Start Date 06/24/2017 Inactive clopidogrel 75 mg tablet RxNorm: 428287 1 Tablet(s) PO daily No Start Date 09/03/2016 Inactive atorvastatin 40 mg tablet RxNorm: 132594 1 Tablet(s) PO daily No Start Date 09/20/2017 Inactive sertraline 50 mg tablet RxNorm: 080027 1 Tablet(s) PO daily No Start Date [...] Item Item Code Result Date Comp Metabolic Yhx664 NA 141 mEq/L 05/06/2018 Comp Metabolic Ztn667 K 4.0 mEq/L 05/06/2018 Comp Metabolic Qqw884 CL 105 mEq/L 05/06/2018 Comp Metabolic Tpp854 CO2 29.0 mEq/L 05/06/2018 Comp Metabolic Nei502 ANION GAP 11 05/06/2018 Comp Metabolic Xow255 GLUCOSE 103 mg/dL 05/06/2018 Comp Metabolic Psf436 Creat 0.8 mg/dL 05/06/2018 Comp Metabolic Pec789 eGFR 80 ml/min/1.73m2 05/06/2018 Comp Metabolic Ozv191 BUN 23 mg/dL 05/06/2018 Comp Metabolic Zfv079 B/C Ratio 30.3 Ratio 05/06/2018 Comp Metabolic Fyi015 CALCIUM 9.2 mg/dL 05/06/2018 Comp Metabolic Vie447 ALK PHOS 65 U/L 05/06/2018 Comp Metabolic Ggb692 AST(SGOT) 18 U/L 05/06/2018 Comp Metabolic Eui497 ALT(SGPT) 15 U/L 05/06/2018 Comp Metabolic Ebk865 BILI T 0.5 mg/dL 05/06/2018 Comp Metabolic Xqv019 ALBUMIN 4.4 g/dL 05/06/2018 Comp Metabolic Cvr925 TPRO 6.4 g/dL 05/06/2018 Comp Metabolic Lst284 GLOB 2.0 g/dL 05/06/2018 Comp Metabolic Fac625 A/G Ratio 2.2 Ratio 05/06/2018 Comp Metabolic Jlw569 Osmo 285 mOsmo 05/06/2018 Cbc With Differential [...] 31.0 pg 05/05/2018 Cbc With Differential Ord2 [place]% 7.4 % 05/05/2018 Cbc With Differential Ord2 [...] 2.60 K/ul 05/05/2018 Cbc With Differential Ord2 [place] ABS# 0.7 K/ul 05/05/2018 Cbc With Differential Ord2 Eos ABS# 0.1 K/ul 05/05/2018 Cbc With Differential Ord2 Baso ABS# 0.0 K/ul 05/05/2018 C-Reactive Protein Qnt Crqnt CRP 0.1 mg/dl 11/04/2017 Sed Rate Ord21 ESR 2 mm/hr 11/04/2017 Comp Metabolic Fkb604 NA 143 mEq/L 08/28/2017 Comp Metabolic Dbl373 K 4.2 mEq/L 08/28/2017 Comp Metabolic Qki592 CL 108 mEq/L 08/28/2017 Comp Metabolic Rju025 CO2 28.0 mEq/L 08/28/2017 Comp Metabolic Hii557 ANION GAP 11 08/28/2017 Comp Metabolic Uji201 GLUCOSE 89 mg/dL 08/28/2017 Comp Metabolic Pnx804 Creat 0.8 mg/dL 08/28/2017 Comp Metabolic Fyv636 eGFR 78 ml/min/1.73m2 08/28/2017 Comp Metabolic Ehx364 BUN 19 mg/dL 08/28/2017 Comp Metabolic Xvd131 B/C Ratio 24.4 Ratio 08/28/2017 Comp Metabolic Qcj162 CALCIUM 8.4 mg/dL 08/28/2017 Comp Metabolic Gju431 ALK PHOS 52 U/L 08/28/2017 Comp Metabolic Eqt586 AST(SGOT) 20 U/L 08/28/2017 Comp Metabolic Qzh518 ALT(SGPT) 14 U/L 08/28/2017 Comp Metabolic Iyr774 BILI T 0.5 mg/dL 08/28/2017 Comp Metabolic Rlb241 ALBUMIN 4.0 g/dL 08/28/2017 Comp Metabolic Jsu353 TPRO 5.9 g/dL 08/28/2017 Comp Metabolic Hff273 GLOB 1.9 g/dL 08/28/2017 Comp Metabolic Joq840 A/G Ratio 2.1 Ratio 08/28/2017 Comp Metabolic Yps232 Osmo 287 mOsmo 08/28/2017 Cbc With Differential [...] 30.9 pg 08/28/2017 Cbc With Differential Ord2 [place]% 5.9 % 08/28/2017 Cbc With Differential Ord2 [...] 2.28 K/ul 08/28/2017 Cbc With Differential Ord2 [place] ABS# 0.4 K/ul 08/28/2017 Cbc With Differential [...] 31.7 pg 03/09/2017 Cbc With Differential Ord2 [place]% 6.1 % 03/09/2017 Cbc With Differential Ord2 [...] 1.78 K/ul 03/09/2017 Cbc With Differential Ord2 [place] ABS# 0.4 K/ul 03/09/2017 Cbc With Differential Ord2 Eos ABS# 0.1 K/ul 03/09/2017 Cbc With Differential Ord2 Baso ABS# 0.0 K/ul 03/09/2017 Tsh Ord6 hTSH II 0.87 uIU/mL 03/09/2017 %Hba1C Vqv472 % HbA1c 34564-8 4.9 % 03/09/2017 %Hba1C Smu502 Gluc Ave 94 mg/dL 03/09/2017 Comp Metabolic Igk110 NA 141 mEq/L 03/09/2017 Comp Metabolic Lpo718 K 3.8 mEq/L 03/09/2017 Comp Metabolic Yrr626 CL 105 mEq/L 03/09/2017 Comp Metabolic Sal795 CO2 29.0 mEq/L 03/09/2017 Comp Metabolic Hop395 ANION GAP 11 03/09/2017 Comp Metabolic Xga459 GLUCOSE 98 mg/dL 03/09/2017 Comp Metabolic Iyq062 Creat 0.7 mg/dL 03/09/2017 Comp Metabolic Zfj071 eGFR 93 ml/min/1.73m2 03/09/2017 Comp Metabolic Epx122 BUN 11 mg/dL 03/09/2017 Comp Metabolic Zke620 B/C Ratio 16.4 Ratio 03/09/2017 Comp Metabolic Jzl531 CALCIUM 9.5 mg/dL 03/09/2017 Comp Metabolic Wtb942 ALK PHOS 90 U/L 03/09/2017 Comp Metabolic Jkd298 AST(SGOT) 21 U/L 03/09/2017 Comp Metabolic Dfs673 ALT(SGPT) 15 U/L 03/09/2017 Comp Metabolic Dvi232 BILI T 0.6 mg/dL 03/09/2017 Comp Metabolic Ysk598 ALBUMIN 4.5 g/dL 03/09/2017 Comp Metabolic Kaj528 TPRO 6.4 g/dL 03/09/2017 Comp Metabolic Jtq561 GLOB 1.9 g/dL 03/09/2017 Comp Metabolic Snw492 A/G Ratio 2.3 Ratio 03/09/2017 Comp Metabolic Vuf837 Osmo 281 mOsmo 03/09/2017 Comp Metabolic Ucr795 NA 142 mEq/L 09/03/2016 Comp Metabolic Vjx152 K 3.9 mEq/L 09/03/2016 Comp Metabolic Mqa547 CL 107 mEq/L 09/03/2016 Comp Metabolic Daj696 CO2 26.0 mEq/L 09/03/2016 Comp Metabolic Gaz102 ANION GAP 13 09/03/2016 Comp Metabolic Uiv149 GLUCOSE 107 mg/dL 09/03/2016 Comp Metabolic Vfo536 Creat 0.7 mg/dL 09/03/2016 Comp Metabolic Zzx743 eGFR 85 ml/min/1.73m2 09/03/2016 Comp Metabolic Kqg616 BUN 16 mg/dL 09/03/2016 Comp Metabolic Ihh249 B/C Ratio 21.9 Ratio 09/03/2016 Comp Metabolic Ood743 CALCIUM 8.8 mg/dL 09/03/2016 Comp Metabolic Qko569 ALK PHOS 51 U/L 09/03/2016 Comp Metabolic Ejt435 AST(SGOT) 24 U/L 09/03/2016 Comp Metabolic Ywr567 ALT(SGPT) 20 U/L 09/03/2016 Comp Metabolic Fbq192 BILI T 0.7 mg/dL 09/03/2016 Comp Metabolic Psv349 ALBUMIN 4.1 g/dL 09/03/2016 Comp Metabolic Tki399 TPRO 6.1 g/dL 09/03/2016 Comp Metabolic Wbc694 GLOB 2.0 g/dL 09/03/2016 Comp Metabolic Dmy030 A/G Ratio 2.1 Ratio 09/03/2016 Comp Metabolic Xvm322 Osmo 285 mOsmo 09/03/2016 Cbc With Differential [...] 30.3 pg 09/03/2016 Cbc With Differential Ord2 [place]% 6.5 % 09/03/2016 Cbc With Differential Ord2 [...] 1.53 K/ul 09/03/2016 Cbc With Differential Ord2 [place] ABS# 0.4 K/ul 09/03/2016 Cbc With Differential [...] Ord15 CALCIUM 9.1 mg/dL 12/21/2015 Comp Metabolic Qvy885 NA 138 mEq/L 07/06/2015 Comp Metabolic Ray340 K 3.9 mEq/L 07/06/2015 Comp Metabolic Crh750 CL 103 mEq/L 07/06/2015 Comp Metabolic Pch772 CO2 28.0 mEq/L 07/06/2015 Comp Metabolic Rck266 ANION GAP 11 07/06/2015 Comp Metabolic Wxr297 GLUCOSE 114 mg/dL 07/06/2015 Comp Metabolic Ajq418 Creat 0.7 mg/dL 07/06/2015 Comp Metabolic Bdq177 eGFR 97 ml/min/1.73m2 07/06/2015 Comp Metabolic Snn357 BUN 11 mg/dL 07/06/2015 Comp Metabolic Uno093 B/C Ratio 16.9 Ratio 07/06/2015 Comp Metabolic Iyr159 CALCIUM 9.1 mg/dL 07/06/2015 Comp Metabolic Lha057 ALK PHOS 57 U/L 07/06/2015 Comp Metabolic Ygb088 AST(SGOT) 26 U/L 07/06/2015 Comp Metabolic Lqc450 ALT(SGPT) 17 U/L 07/06/2015 Comp Metabolic Sax683 BILI T 0.6 mg/dL 07/06/2015 Comp Metabolic Ecm984 ALBUMIN 4.6 g/dL 07/06/2015 Comp Metabolic Zao410 TPRO 6.7 g/dL 07/06/2015 Comp Metabolic Sys664 GLOB 2.1 g/dL 07/06/2015 Comp Metabolic Pop805 A/G Ratio 2.2 Ratio 07/06/2015 Comp Metabolic Ehk710 Osmo 276 mOsmo 07/06/2015 Lipid Ord30 CHOL 228 mg/dL 07/06/2015 Lipid Ord30 HDL 48.0 mg/dl 07/06/2015 Lipid Ord30 TRIG 176 mg/dL 07/06/2015 Lipid Ord30 LDL 145 mg/dL 07/06/2015 Lipid Ord30 C/HDL 4.8 Ratio 07/06/2015 Tsh Ord6 hTSH II 0.74 uIU/mL 05/01/2015 Comp Metabolic Khd819 NA 141 mEq/L 05/01/2015 Comp Metabolic Qma072 K 4.0 mEq/L 05/01/2015 Comp Metabolic Vof006 CL 106 mEq/L 05/01/2015 Comp Metabolic Nhs338 CO2 26.0 mEq/L 05/01/2015 Comp Metabolic Kxb378 ANION GAP 13 05/01/2015 Comp Metabolic Wko585 GLUCOSE 124 mg/dL 05/01/2015 Comp Metabolic Lus411 Creat 0.8 mg/dL 05/01/2015 Comp Metabolic Uqj429 eGFR 79 ml/min/1.73m2 05/01/2015 Comp Metabolic Oht674 BUN 13 mg/dL 05/01/2015 Comp Metabolic Uka917 B/C Ratio 16.7 Ratio 05/01/2015 Comp Metabolic Rll796 CALCIUM 9.3 mg/dL 05/01/2015 Comp Metabolic Lmk685 ALK PHOS 54 U/L 05/01/2015 Comp Metabolic Fmh445 AST(SGOT) 21 U/L 05/01/2015 Comp Metabolic Vnq888 ALT(SGPT) 14 U/L 05/01/2015 Comp Metabolic Gos688 BILI T 0.5 mg/dL 05/01/2015 Comp Metabolic Iek281 ALBUMIN 4.5 g/dL 05/01/2015 Comp Metabolic Gng229 TPRO 6.4 g/dL 05/01/2015 Comp Metabolic Mgi810 GLOB 1.9 g/dL 05/01/2015 Comp Metabolic Azg862 A/G Ratio 2.4 Ratio 05/01/2015 Comp Metabolic Xox333 Osmo 283 mOsmo 05/01/2015 Cbc With Differential [...] Differential Ord2 RDW 16.8 % 05/01/2015 %Hba1C Ewz682 % HbA1c 08995-7 5.4 % 01/29/2015 %Hba1C Hkc504 Gluc Ave 108 mg/dL 01/29/2015 Lipid Ord30 CHOL 221 mg/dL 01/26/2015 Lipid Ord30 HDL 37.0 mg/dl 01/26/2015 Lipid Ord30 TRIG 274 mg/dL 01/26/2015 Lipid Ord30 LDL 129 mg/dL 01/26/2015 Lipid Ord30 C/HDL 6.0 Ratio 01/26/2015 Tsh Ord6 hTSH II 0.85 uIU/mL 01/26/2015 Comp Metabolic Qkt629 NA 137 mEq/L 01/26/2015 Comp Metabolic Vkr054 K 4.0 mEq/L 01/26/2015 Comp Metabolic Yzs556 CL 104 mEq/L 01/26/2015 Comp Metabolic Jxp612 CO2 27.0 mEq/L 01/26/2015 Comp Metabolic Lji306 ANION GAP 10 01/26/2015 Comp Metabolic Gyh096 GLUCOSE 131 mg/dL 01/26/2015 Comp Metabolic Ypq847 Creat 0.8 mg/dL 01/26/2015 Comp Metabolic Sjd675 eGFR 77 ml/min/1.73m2 01/26/2015 Comp Metabolic Iey414 BUN 16 mg/dL 01/26/2015 Comp Metabolic Job557 B/C Ratio 20.0 Ratio 01/26/2015 Comp Metabolic Nmx078 CALCIUM 9.1 mg/dL 01/26/2015 Comp Metabolic Blo780 ALK PHOS 66 U/L 01/26/2015 Comp Metabolic Awz711 AST(SGOT) 24 U/L 01/26/2015 Comp Metabolic Cze284 ALT(SGPT) 20 U/L 01/26/2015 Comp Metabolic Sib610 BILI T 0.4 mg/dL 01/26/2015 Comp Metabolic Xbu527 ALBUMIN 4.2 g/dL 01/26/2015 Comp Metabolic Ycf149 TPRO 6.4 g/dL 01/26/2015 Comp Metabolic Pei984 GLOB 2.2 g/dL 01/26/2015 Comp Metabolic Xom646 A/G Ratio 1.9 Ratio 01/26/2015 Comp Metabolic Dvo288 Osmo 277 mOsmo 01/26/2015 Cbc With Differential [...] Differential Ord2 RDW 15.5 % 01/26/2015 B12 Eym761 B12 669.00 pg/ml 01/26/2015 Review of Systems [...] NO PRSV 4 BLANCA 3 YRS+ CPT-4: 31185 02/22/2018 ADMIN INFLUENZA VIRUS VAC CPT-4: G0008 03/18/2017 FLU VACC PRSV FREE INC ANTIG CPT-4: 07435 03/18/2017 INITIAL PREVENTIVE EXAM CPT-4: G0402 07/06/2015 IIV4 FLU VACC NO PRESERV ID Formatting Model/CDA Sections, Assigned to SNOMED CT: [id number] CPT-4: 04729Gwqdjiw 03/26/2015 IMMUNIZATION ADMIN CPT -4: 78895 03/26/2015 Vital Signs Date Vital 09/01/2018 Blood Pressure 1: 140/72 Code : 8480-6 BMI: 29.1 Code : 64687-5 Heart Rate 1 : 65 bpm Height: 5'1" SpO2: 99% Weight: 154 lbs 07/29/2018 Blood Pressure 1: 120/68 Code : 8480-6 BMI: 28.5 Code : 72286-4 Heart Rate 1 : 75 bpm Height: 5'1" SpO2: 98% Weight: 151 lbs 05/05/2018 Blood Pressure 1: 120/80 Code : 8480-6 BMI: 29.1 Code : 93778-8 Heart Rate 1 : 76 bpm Height: 5'1" SpO2: 97% Weight: 154 lbs 02/22/2018 Blood Pressure 1: 140/70 Code : 8480-6 BMI: 26.3 Code : 55783-9 Heart Rate 1 : 60 bpm Height: 5'1" SpO2: 97% Weight: 139 lbs 12/29/2017 Blood Pressure 1: 110/58 Code : 8480-6 BMI: 23.8 Code : 69822-5 Heart Rate 1 : 56 bpm Height: 5'1" SpO2: 98% Weight: 126 lbs 10/28/2017 Blood Pressure 1: 96/68 Code : 8480-6 BMI: 21.7 Code : 32678-0 Heart Rate 1 : 68 bpm Height: 5'1" SpO2: 98% Weight: 115 lbs 09/23/2017 Blood Pressure 1: 134/72 Code : 8480-6 BMI: 22.5 Code : 47676-1 Heart Rate 1 : 72 bpm Height: 5'1" SpO2: 97% Weight: 119 lbs 03/18/2017 Blood Pressure 1: 140/72 Code : 8480-6 BMI: 21.5 Code : 48672-9 Heart Rate 1 : 64 bpm Height: 5'1" SpO2: 96% Weight: 114 lbs 03/09/2017 Blood Pressure 1: 120/72 Code : 8480-6 BMI: 21.5 Code : 49098-4 Heart Rate 1 : 75 bpm Height: 5'1" SpO2: 97% Weight: 114 lbs 12/09/2016 Blood Pressure 1: 130/76 Code : 8480-6 BMI: 23.8 Code : 47951-7 Heart Rate 1 : 68 bpm Height: 5'1" SpO2: 98% Weight: 126 lbs 09/08/2016 Blood Pressure 1: 162/80 Code : 8480-6 Blood Pressure 2: 145/90 Code: 8480-6 BMI: 24.7 Code: 44556-8 Heart Rate 1: 77 bpm Height: 5'1" SpO2: 97% Weight: 130 lbs 8 oz 08/11/2016 Blood Pressure 1: 130/80 Code : 8480-6 BMI: 25.9 Code : 81512-9 Heart Rate 1 : 62 bpm Height: 5'1" SpO2: 97% Weight: 137 lbs 07/03/2016 Blood Pressure 1: 134/74 Code : 8480-6 BMI: 26.8 Code : 17655-4 Heart Rate 1 : 74 bpm Height: 5'1" SpO2: 97% Weight: 142 lbs 06/19/2016 Blood Pressure 1: 118/66 Code : 8480-6 Heart Rate 1: 72 bpm SpO2: 96% Weight: 142 lbs 02/04/2016 Blood Pressure 1: 130/80 Code : 8480-6 BMI: 27.2 Code : 36850-8 Heart Rate 1 : 76 bpm Height: 5'1" SpO2: 96% Weight: 144 lbs 01/07/2016 Blood Pressure 1: 136/64 Code : 8480-6 BMI: 27.6 Code : 62939-4 Heart Rate 1 : 73 bpm Height: 5'1" SpO2: 987% Weight: 146 lbs 12/17/2015 Blood Pressure 1: 128/86 Code : 8480-6 BMI: 27.0 Code : 04291-5 Heart Rate 1 : 59 bpm Height: 5'1" SpO2: 96% Weight: 143 lbs 10/16/2015 Blood Pressure 1: 122/78 Code : 8480-6 BMI: 25.7 Code : 37021-4 Heart Rate 1 : 71 bpm Height: 5'1" SpO2: 96% Weight: 136 lbs 08/16/2015 Blood Pressure 1: 138/88 Code : 8480-6 BMI: 27.0 Code : 52755-1 Heart Rate 1 : 75 bpm Height: 5'1" SpO2: 98% Weight: 143 lbs 07/06/2015 Blood Pressure 1: 120/72 Code : 8480-6 BMI: 26.5 Code : 20009-9 Heart Rate 1 : 72 bpm Height: 5'1" SpO2: 96% Weight: 140 lbs 06/07/2015 Blood Pressure 1: 152/86 Code : 8480-6 BMI: 26.1 Code : 20143-7 Heart Rate 1 : 88 bpm Height: 5'1" SpO2: 97% Weight: 138 lbs 05/01/2015 Blood Pressure 1: 120/80 Code : 8480-6 BMI: 27.0 Code : 15180-4 Heart Rate 1 : 82 bpm Height: 5'1" SpO2: 98% Temperature: 36.7 (C) / 98.0 (F) Weight: 143 lbs 03/26/2015 Blood Pressure 1: 140/80 Code : 8480-6 BMI: 28.0 Code : 78093-6 Heart Rate 1 : 69 bpm Height: 5'1" SpO2: 96% Weight: 148 lbs 03/13/2015 Blood Pressure 1: 128/70 Code : 8480-6 BMI: 28.2 Code : 73372-2 Heart Rate 1 : 76 bpm Height: 5'1" Weight: 149 lbs 01/30/2015 Blood Pressure 1: 142/68 Code : 8480-6 BMI: 28.7 Code : 11139-8 Heart Rate 1 : 86 bpm Height: 5'1" SpO2: 96% Weight: 152 lbs 10/16/2014 Blood Pressure 1: 160/88 Code : 8480-6 BMI: 28.2 Code : 25783-5 Heart Rate 1 : 66 bpm Height: [...] Other allergic rhinitis[ICD10: J30.89] Angelica Ochoa MD, [facility] CPT-4: 95370 09/01/2018 34110 EST. PATIENT, LEVEL III Diagnosis: Other allergic rhinitis[ICD10: J30.89] [facility] CPT-4: 46382 07/29/2018 76332 EST. PATIENT, LEVEL III Diagnosis: Dementia in other diseases classified elsewhere without behavioral disturbance[ICD10: F02.80] Diagnosis: Major depressive disorder, recurrent, mild[ICD10: F33.0] Diagnosis: Generalized anxiety disorder[ICD10: F41.1] Angelica Ochoa MD, [facility] CPT-4: 70147 05/05/2018 44645 EST. PATIENT, LEVEL III Diagnosis: Other insomnia[ICD10: G47.09] Diagnosis: Dementia in other diseases classified elsewhere without behavioral disturbance[ICD10: F02.80] Diagnosis: Encounter for immunization[ICD10: Z23] Angelica Ochoa MD, [facility] CPT-4: 92770 02/22/2018 34970 EST. PATIENT, LEVEL IV Diagnosis: Dementia in other diseases classified elsewhere without behavioral disturbance[ICD10: F02.80] Diagnosis: Major depressive disorder, recurrent, mild[ICD10: F33.0] Diagnosis: Other allergic rhinitis[ICD10: J30.89] Angelica Ochoa MD, [facility] CPT-4: 14279 12/29/2017 ([id number]) 70887 EST. PATIENT, LEVEL IV Diagnosis: Dementia in other diseases classified elsewhere without behavioral disturbance[ICD10: F02.80] Diagnosis: Major depressive disorder, recurrent, mild[ICD10: F33.0] Diagnosis: Allergy to other foods[ICD10: Z91.018] Marylu Ochoa MD, [facility] CPT-4: 06822 10/28/2017 33632 EST. 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 PATIENT, LEVEL IV Diagnosis: Essential (primary) hypertension[ICD10: I10] Diagnosis: Major depressive disorder, recurrent, moderate[ICD10: F33.1] Diagnosis: Underweight[ICD10: R63.6] Diagnosis: Localization-related (focal) (partial) symptomatic epilepsy and epileptic syndromes with simple partial seizures, not intractable, without status epilepticus[ICD10: G40.109] Marylu Ochoa MD, [facility] CPT-4: 48491 03/09/2017 ([id number]) 57863 EST. PATIENT, LEVEL IV Diagnosis: Mixed hyperlipidemia[ICD10: E78.2] Diagnosis: Chronic pain syndrome[ICD10: G89.4] Diagnosis: Major depressive disorder, recurrent, mild[ICD10: F33.0] Marylu Ochoa MD, [facility] CPT-4: 50245 12/09/2016 ([id number]) 03918 EST. PATIENT, LEVEL IV Diagnosis: Essential (primary) hypertension[ICD10: I10] Diagnosis: Low back pain[ICD10: M54.5] Diagnosis: Personal history of transient ischemic attack (TIA), and cerebral infarction without residual deficits[ICD10: Z86.73] Diagnosis: Major depressive disorder, recurrent, moderate[ICD10: F33.1] Diagnosis: Other sleep apnea[ICD10: G47.39] Marylu Ochoa MD, [facility] CPT-4: 40973 09/08/2016 ([id number]) 95253 EST. PATIENT, LEVEL IV Diagnosis: Mixed hyperlipidemia[ICD10: E78.2] Diagnosis: Other transient cerebral ischemic attacks and related syndromes[ICD10 : G45.8] Marylu Ochoa MD, [facility] CPT-4: 68583 2016 26585 EST. PATIENT, LEVEL III Diagnosis: Chronic pain syndrome[ICD10: G89.4] Diagnosis: Low back pain[ICD10: M54.5] Diagnosis: Major depressive disorder, recurrent, mild[ICD10: F33.0] Diagnosis: Mild cognitive impairment, so stated[ICD10: G31.84] Angelica Ochoa MD, [facility] CPT-4: 10997 07/03/2016 ([id number]) 24349 EST. PATIENT, LEVEL III Diagnosis: Chronic pain syndrome[ICD10: G89.4] Donna Ochoa MD, [facility] CPT-4: 65757 06/19/2016 ([id number]) 84791 EST. PATIENT, LEVEL IV Diagnosis: Chronic pain syndrome[ICD10: G89.4] Diagnosis: Mild cognitive impairment, so stated[ICD10: G31.84] Donna Ochoa MD, [facility] CPT-4: 82892 02/04/2016 ([id number]) 49822 EST. PATIENT, LEVEL IV Diagnosis: Chronic pain syndrome[ICD10: G89.4] Diagnosis: Mild cognitive impairment, so stated[ICD10: G31.84] Diagnosis: Major depressive disorder, recurrent, mild[ICD10: F33.0] Donna Ochoa MD , [facility] CPT-4: 02455 01/07/2016 ([id number]) 31558 EST. PATIENT, LEVEL IV Diagnosis: Chronic pain syndrome[ICD10: G89.4] Diagnosis: Headache[ICD10: R51] Diagnosis: Major depressive disorder, recurrent, mild[ICD10: F33.0] Diagnosis: Mixed hyperlipidemia[ICD10: E78.2] Donna Ochoa MD, [facility] CPT-4: 87035 12/17/2015 ([id number]) 70619 EST. PATIENT, LEVEL III Diagnosis: Chronic pain syndrome[ICD10: G89.4] Diagnosis: Major depressive disorder, recurrent, mild[ICD10: F33.0] Donna Ohcoa MD , [facility] CPT-4: 90411 10/16/2015 ([id number]) 13085 EST. PATIENT, LEVEL III Diagnosis: Low back pain[ICD10: M54.5] Donna Ochoa MD, [facility] CPT-4: 22731 08/16/2015 ([id number]) 81420 EST. 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 PATIENT, LEVEL IV Diagnosis: Major depressive disorder, recurrent, mild[ICD10: F33.0] Diagnosis: Chronic pain syndrome[ICD10: G89.4] Diagnosis: Other fatigue[ICD10: R53.83] Donna Ochoa MD, [facility] CPT-4: 68264 05/01/2015 ([id number]) 53407 EST. PATIENT, LEVEL II Diagnosis: Plantar fascial fibromatosis[ICD10: M72.2] Donna Ochoa MD, [facility] CPT-4: 23561 03/26/2015 ([id number]) 69042 EST. PATIENT, LEVEL III Diagnosis: Plantar fascial fibromatosis[ICD10: M72.2] Donna Ochoa MD, [facility] CPT-4: 24524 03/13/2015 ([id number]) 09248 EST. PATIENT, LEVEL III Diagnosis: Hyperlipidemia[ICD9: 272.4] Diagnosis: ALLERGIC RHINITIS[ICD9: 477.9] Diagnosis: Chronic pain syndrome[ICD9: 338.4] Donna Ochoa MD, [facility] CPT-4: 06633 01/30/2015 ([id number]) OFFICE VISIT, NEW - LEVEL 4 Diagnosis: ESOPHAGEAL REFLUX[ICD9: 530.81] Diagnosis: Peripheral neuropathy[ICD9: 356.9] Diagnosis: Chronic pain syndrome[ICD9: 338.4] Diagnosis: OSTEOARTH NOS-UNSPEC[ICD9: 715.90] Diagnosis: DEPRESSIVE DISORDER NEC[ICD9: 311] Marylu Ochoa MD, [facility] CPT-4: 14930 10/16/2014 Plan of Care Planned Activity Notes [...] allergy spray. 07/29/2018 Appointment: Angelica [place] [facility]Ptel: [facility] (30 min) Complex 07/29/2018 Patient Education: Patient [...] of treatment. 05/05/2018 Appointment: Angelica Cuba WPtel: [address] [place], [place] [phone] (30 min) Complex 05/05/2018 Patient Education: Patient Medication Summary Completed 05/05/2018 Patient Education: Depression Completed 05/05/2018 Appointment: Angelica Cuba WPtel: [facility] (15 min) Moderate 03/24/2018 Visit Plan: Insomnia [...] of treatment. 02/22/2018 Appointment: Angelica Cuba WPtel: [facility] (15 min) Moderate 02/22/2018 Appointment: Angelica Cuba WPtel: [facility] (15 min) Moderate 02/22/2018 Patient Education: Patient Medication Summary Completed 02/22/2018 Appointment: Angelica Cuba WPtel: [facility] (15 min) Moderate 02/18/2018 Visit Plan: Dementia [...] Summary Completed 12/29/2017 Appointment: Angelica Cuba WPtel: [address] [place], [place] [phone] (15 min) Moderate 12/23/2017 Patient Education: [...] of adalgisa. 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 09/23/2017 Appointment: Angelica Cuba WPtel: [facility] (30 min) Complex 09/23/2017 Patient Education: Patient Medication Summary Completed 09/23/2017 Appointment: Marylu Ochoa WPtel: [facility] (15 min) Moderate 08/26/2017 Appointment: Angelica Cuba WPtel: [facility] (30 min) Complex 06/30/2017 Referral: External, Ordering Provider Referral Initiated 05/27/2017 Care Plan: Referral Order SNOMED-CT : [id number] Pending 04/20/2017 Visit Plan: Anxiety - the [...] 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 03/09/2017 Appointment: Marylu Ochoa [facility]Ptel[facility] [phone] [facility] (30 min) Complex 03/09/2017 Patient Education: Patient Medication Summary Completed 03/09/2017 Appointment: Donna Walden WPtel: [address] [phone] (30 min) Complex 03/06/2017 Appointment: Marylu Ochoa WPtel: [facility] (15 min) Moderate 01/08/2017 Visit Plan: Hyperlipidemia [...] Summary Completed 12/09/2016 Appointment: Marylu Ochoa WPtel: [address] [place], [place] [phone] (15 min) Moderate 11/11/2016 Appointment: Angelica Cuba WPtel: [address] [place], [place] [phone] (30 min) Complex 10/09/2016 Visit Plan: Hypertension [...] loss, htn. 09/08/2016 Appointment: Marylu Ochoa WPtel: [facility] (15 min) Moderate 09/08/2016 Patient Education: Patient Medication Summary Completed 09/08/2016 Appointment: Angelica Cuba WPtel: [facility] (30 min) Complex 08/19/2016 Visit Plan: Hyperlipidemia [...] with plavix 08/11/2016 Appointment: Marylu Ochoa WPtel: [facility] (15 min) Moderate 08/11/2016 [...] or concerns. 07/03/2016 Appointment: Angelica Cuba WPtel: [facility] (30 min) Complex 07/03/2016 Patient Education: Patient Medication Summary Completed 07/03/2016 Care Plan: Referral Order SNOMED-CT : [id number] Pending 07/03/2016 Visit Plan: Chronic Pain Syndrome - pt has chronic pain - has been maintained on current medications, has not sought out other medications , only uses PRN pain medications as directed, and understands the consequences of over-medication. 06/19/2016 Appointment: Donna Walden WPtel: [phone] (30 min) Complex 06/19/2016 Patient Education: Patient Medication Summary Completed 06/19/2016 Appointment: Donna Walden WPtel: [phone] (30 min) Complex 06/05/2016 Visit Plan: Chronic Pain Syndrome - pt has chronic pain - has been maintained on current medications, has not sought out other medications , only uses PRN pain medications as directed, and understands the consequences of over-medication. Mild cognitive impairment-discussed with Dr Ochoa- Judson starter pack 02/04/2016 Appointment: Donna Walden WPtel: [facility] [place] [address] (30 min) Complex 02/04/2016 Patient Education: Patient Medication Summary Completed 02/04/2016 Appointment: Donna Walden WPtel: [facility] [place] [address] (30 min) Complex 01/14/2016 Visit Plan: Chronic [...] of testing. 01/07/2016 Appointment: Donna Walden WPtel: [address] [place], [place] [phone] [place] [address] (15 min) Moderate 01/07/2016 Patient Education: Patient Medication Summary Completed 01/07/2016 Visit Plan: Chronic Pain Syndrome - pt has chronic pain - has been maintained on current medications, has not sought out other medications , only uses PRN pain medications as directed, and understands the consequences of over-medication. Headaches-memory loss-schedule MRI brain Hyperlipidemia- check fasting labs [id number]-[id number] change in medications at this time 12/17/2015 Patient Education: Patient Medication Summary Completed 12/17/2015 Appointment: Donna Walden WPtel: [phone] (30 min) Complex 12/13/2015 Visit Plan: [...] change in current medications. 10/16/2015 Appointment: Win Donna WPtel: [address] [phone] (30 min) Complex 10/16/2015 Patient Education: Patient [...] symptoms. 06/07/2015 Appointment: [facility]lu [facility]Ptel: [facility] [facility] (15 min) Moderate 06/07/2015 [...] shoes - discussed inserts and referral to car cleaning supervisor-patient wants to wait but will let us [...] symptoms. 10/16/2014 Appointment: Marylu Ochoa [facility]Ptel: [phone] [facility] [place] New Patient 10/16/2014 Patient Education: Patient Medication Summary Completed 10/16/2014 Patient Education: Hypertension Completed 10/16/2014 Referral: Betsy Samuels Referral Initiated Referral: External, Ordering Provider Referral Relationship Instructions Comment . Allergies - chronic - recommended pt [...] spray in the nasal steroid allergy spray. Zaditor eye drops Flonase nasal spray - [...] spray in the nasal steroid allergy spray. . Dementia - Pt with slowly progressive [...] symptoms are not controlled with the medication. Refill Cymbalta Voltaren gel for low back pain 90 day supply of Aricept through [facility] Add 50 mg Losartan daily for hypertension [...] - 90 day supply of Aricept through [facility], refill namenda FISH OIL 1000MG TWICE DAILY . Hyperlipidemia [...] spray in the nasal steroid allergy spray. turn the lights down in the evening [...] changes. Continue with current plan of treatment. restart cymbalta 30mg daily after 1 week [...] changes. Continue with current plan of treatment. Diazepam 2mg 1/2 to 1 tab twice a day as needed for agitation flu shot today will check b12 level and do b12 shot with next appointment if needed. Will make her a follow up appointment with Dr. Vo Will see about referring her to Dr. Dexter grullon [place] (neurologist) . 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 i want to have Roxy start [...] adalgisa start on zyrtec instead of adalgisa. Start Cymbalta (duloxetine) 30mg daily and take [...] notify clinic with any questions or concerns. Refill Cymbalta Voltaren gel for low back pain 90 day supply of Aricept through [facility] Add 50 mg Losartan daily for hypertension [...] - 90 day supply of Aricept through [facility], refill namenda Suspected sleep disordered breathing with episodes of nocturnal fits of not breathing correctly - pt advised of need for an overnight oxygen study to be done to see if there is nocturnal hypoxemia contributing to her memory loss, htn. mammogram order - given to patient - she is to schedule in [place] . Chronic Pain Syndrome - pt has [...] tylenol for break through pain symptoms. . Esophageal Reflux - the patient has [...] Use tylenol for break through pain symptoms. call back to the office to let [...] Headaches-memory loss-schedule MRI brain Hyperlipidemia-check fasting labs Sflkvubkdy-[id number]-rr change in medications at this time . Chronic Pain Syndrome - pt has [...] situational exposure. No change in current medications. INCREASE SERTRALINE TO 1.5 TABLETS DAILY . [...] No change in current medications. Fatigue-check labs restart cymbalta 30mg daily once the liquid [...] change in blood pressure readings at home. . Welcome to Medicare Exam - today [...] to maintain independece in the home. . Hyperlipidemia - pt has been counseled [...] to medications. TIA - continue with plavix Influenza vaccine today in the office . Plantar fasciitis- pt was educated that this is an inflammatory process, need to stretch the foot and reduce inflammation by using a frozen bottle of water or a tennis ball on the bottom of the foot at least three times a day until the pain is improved. Recommend supportive shoes -discussed inserts and referral to car cleaning supervisor-patient wants to wait but will let us know if she wants to see Dr Roger. . Plantar fasciitis- pt was educated that this is an inflammatory process, need to stretch the foot and reduce inflammation by using a frozen bottle of water or a tennis ball on the bottom of the foot at least three times a day until the pain is improved. . 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 . Chronic Pain Syndrome - pt has chronic pain - has been maintained on current medications, has not sought out other medications, only uses PRN pain medications as directed, and understands the consequences of over- medication. Namenda starter pack . Chronic Pain Syndrome - pt has chronic pain - has been maintained on current medications, has not sought out other medications, only uses PRN pain medications as directed, and understands the consequences of over-medication. Mild cognitive impairment-discussed with Dr Ochoa-Namenda starter pack ALEVE 2 TABS TWICE DAILY WITH FOOD [...] the patient's termination from this medical practice. . Chronic Depression and anxiety - the [...]
--- OUTSIDE RECORDS SUMMARY | 2018-09-20 05:25 | XMS REPORT | CCD ---
Author Author Marylu Ochoa Organization Marylu Ochoa MD, [facility] Address [address] [place] [address] Phone Care Team Providers Care Welt Rougher Name Role Phone PP Unavailable CCM Unavailable Summary Purpose Interface Exchange Insurance Providers Payer name Policy type / Coverage type Covered constitution party ID Effective Begin Date Effective End Date WPS Medicare Part B Medicare Part B [id number] 2015 Unknown [facility] Medicare Part B [id number] 2015 Unknown Family history Mother Diagnosis Age [...] Unknown Retired 10/16/[address]: 400397982 Never smoker 10/16/[address]: 308193995 Never drinks alcohol 10/16/2014 Allergies, Adverse Reactions, [...] Start Date Stop Date Status Fill Instructions levocetirizine 5 mg tablet RxNorm: 095233 1 Tablet(s) PO QHS 08/27/2018 Active hydrocodone 10 mg-acetaminophen 325 mg tablet RxNorm: 541903 1 Tablet(s) PO Q6 as needed 07/29/2018 08/27/2018 Active hydrocodone 10 mg-acetaminophen 325 mg tablet RxNorm: 661048 1 Tablet(s) PO Q6 as needed 07/07/2018 07/28/2018 Inactive hydrocodone 10 mg-acetaminophen 325 mg tablet RxNorm: 823165 1 Tablet(s) PO Q6 as needed 06/08/2018 07/06/2018 Inactive Cymbalta 30 mg capsule,delayed release RxNorm: 249908 1 CAPSULE(S) PO DAILY 05/07/2018 11/02/2018 Active hydrocodone 10 mg-acetaminophen 325 mg tablet RxNorm: 952448 1 Tablet(s) PO Q6 as needed may fill on 03-27-18 04/28/201802/2019 Inactive diazepam 5 mg tablet RxNorm: 349982 1/2 Tablet(s) PO QHS as needed 04/13/2018 06/11/2018 Inactive hydrocodone 10 mg-acetaminophen 325 mg tablet RxNorm: 308341 1 Tablet(s) PO Q6 as needed may fill on 03-27-18 03/22/201808/2017 Inactive Aricept 10 mg tablet RxNorm: 145764 1 TABLET(S) PO DAILY 201707/12/2018 Inactive hydrocodone 10 mg-acetaminophen 325 mg tablet RxNorm: 004568 1 Tablet(s) PO Q6 as needed 02/26/2018 03/21/2018 Inactive diazepam 5 mg tablet RxNorm: 980954 1/2 Tablet(s) PO QHS as needed 02/22/2018 03/22/2018 Inactive hydrocodone 10 mg-acetaminophen 325 mg tablet RxNorm: 335097 1 Tablet(s) PO Q6 as needed 02/05/2018 02/25/2018 Inactive levetiracetam 500 mg tablet RxNorm: 790325 1 TABLET(S) PO BID 01/07/2018 04/06/2018 Inactive pt to finish out supply of liquid then start on tablets hydrocodone 10 mg-acetaminophen 325 mg tablet RxNorm: 468830 1 Tablet(s) PO Q6 as needed 12/29/2017 01/27/2018 Inactive hydrocodone 10 mg-acetaminophen 325 mg tablet RxNorm: 032937 1 Tablet(s) PO Q6 as needed 12/10/2017 12/28/2017 Inactive Zyrtec 10 mg tablet RxNorm: 2687237 1 Tablet(s) PO QAM for allergies 10/28/2017 05/25/2018 Inactive Zantac 75 mg tablet RxNorm: 412587 1 Tablet(s) PO BID 201702/24/2018 Inactive Aricept 10 mg tablet RxNorm: 791667 1 TABLET(S) PO DAILY 201702/23/2018 Inactive Cymbalta 30 mg capsule,delayed release RxNorm: 585598 1 Capsule(s) PO daily 10/22/2017 05/06/2018 Inactive hydrocodone 10 mg-acetaminophen 325 mg tablet RxNorm: 879680 1 Tablet(s) PO Q6 as needed 10/20/2017 11/18/2017 Inactive Voltaren 1 % topical gel RxNorm: 664187 4 Gram(s) TOP TID as needed for pain as needed 09/23/2017 09/17/2018 Active levetiracetam 500 mg tablet RxNorm: 818231 1 TABLET(S) PO BID 09/21/2017 10/20/2017 Inactive pt to finish out supply of liquid then start on tablets hydrocodone 10 mg-acetaminophen 325 mg tablet RxNorm: 371230 1 Tablet(s) PO Q6 as needed 08/27/2017 09/25/2017 Inactive Aricept 10 mg tablet RxNorm: 576832 1 Tablet(s) PO daily 201709/16/2017 Inactive Aricept 10 mg tablet RxNorm: 662917 1 Tablet(s) PO daily 201708/17/2017 Inactive hydrocodone 10 mg-acetaminophen 325 mg tablet RxNorm: 179495 1 Tablet(s) PO Q6 as needed 07/28/2017 08/26/2017 Inactive Zithromax Z-Myles 250 mg tablet RxNorm: 272597 1 Tablet(s) PO UD 06/25/2017 09/20/2017 Inactive hydrocodone 10 mg-acetaminophen 325 mg tablet RxNorm: 277647 1 Tablet(s) PO Q6 as needed 06/17/2017 07/16/2017 Inactive Namenda XR 28 mg capsule sprinkle,extended release RxNorm: 556688 1 Capsule(s) PO daily 05/08/2017 05/02/2018 Inactive Aricept 10 mg tablet RxNorm: 421050 1 Tablet(s) PO daily 201608/05/2017 Inactive hydrocodone 10 mg-acetaminophen 325 mg tablet RxNorm: 707649 1 Tablet(s) PO Q6 as needed 05/05/2017 06/03/2017 Inactive hydrocodone 10 mg-acetaminophen 325 mg tablet RxNorm: 990842 1 Tablet(s) PO Q6 as needed 04/06/2017 05/04/2017 Inactive diazepam 2 mg tablet RxNorm: 170612 1/2 - 1 Tablet(s) PO BID as needed 03/18/2017 09/20/2017 Inactive Cymbalta 30 mg capsule,delayed release RxNorm: 283887 1 Capsule(s) PO daily 03/09/2017 10/04/2017 Inactive levetiracetam 500 mg tablet RxNorm: 071773 1 Tablet(s) PO BID 03/09/2017 08/05/2017 Inactive pt to finish out supply of liquid then start on tablets Aricept 5 mg tablet RxNorm: 340500 1 Tablet(s) PO daily 201605/07/2017 Inactive pantoprazole 40 mg tablet,delayed release RxNorm: 963966 1 Tablet(s) PO daily 03/09/2017 07/06/2017 Inactive hydrocodone 10 mg-acetaminophen 325 mg tablet RxNorm: 043860 1 Tablet(s) PO Q6 as needed 12/04/2016 03/08/2017 Inactive hydrocodone 10 mg-acetaminophen 325 mg tablet RxNorm: 189253 1 Tablet(s) PO Q6 as needed 11/06/2016 12/03/2016 Inactive hydrocodone 10 mg-acetaminophen 325 mg tablet RxNorm: 228598 1 Tablet(s) PO Q6 as needed 10/08/2016 11/05/2016 Inactive Voltaren 1 % topical gel RxNorm: 469696 4 Gram(s) TOP TID as needed for pain as needed 09/25/2016 09/19/2017 Inactive hydrocodone 10 mg-acetaminophen 325 mg tablet RxNorm: 091492 1 Tablet(s) PO Q6 as needed 09/09/2016 10/07/2016 Inactive Voltaren 1 % topical gel RxNorm: 173753 1 Application TOP TID 09/08/2016 09/24/2016 Inactive Aricept 5 mg tablet RxNorm: 690335 1 Tablet(s) PO daily 201612/06/2016 Inactive Cymbalta 30 mg capsule,delayed release RxNorm: 978624 1 Capsule(s) PO daily 09/08/2016 12/06/2016 Inactive losartan 50 mg tablet RxNorm: 821198 1 Tablet(s) PO daily 201610/07/2016 Inactive clopidogrel 75 mg tablet RxNorm: 980994 75 MG PO DAILY 201609/20/2017 Inactive hydrocodone 10 mg-acetaminophen 325 mg tablet RxNorm: 694707 1 Tablet(s) PO Q6 as needed 08/15/2016 09/08/2016 Inactive hydrocodone 10 mg-acetaminophen 325 mg tablet RxNorm: 374148 1 Tablet(s) PO Q6 as needed 07/18/2016 08/14/2016 Inactive Cymbalta 30 mg capsule,delayed release RxNorm: 572486 1 Capsule(s) PO daily 07/03/2016 09/07/2016 Inactive Aricept 5 mg tablet RxNorm: 978524 1 Tablet(s) PO daily 201608/01/2016 Inactive Namenda XR 28 mg capsule sprinkle,extended release RxNorm: 277379 1 Capsule(s) PO daily 07/03/2016 05/07/2017 Inactive diazepam 5 mg tablet RxNorm: 029532 Tablet(s) PO daily as needed TAKE 1/2 TO 1 TABLET BY MOUTH DAILY NEEDED FOR ANXIETY 06/25/2016 03/06/2017 Inactive hydrocodone 10 mg-acetaminophen 325 mg tablet RxNorm: 877333 1 Tablet(s) PO Q6 as needed 06/19/2016 07/17/2016 Inactive Namenda XR 28 mg capsule sprinkle,extended release RxNorm: 442840 1 Capsule(s) PO daily 06/19/2016 07/02/2016 Inactive gabapentin 100 mg capsule RxNorm: 928800 1 Capsule(s) PO TID 03/08/2017 Inactive hydrocodone 10 mg-acetaminophen 325 mg tablet RxNorm: 270272 1 Tablet(s) PO Q6 as needed 05/27/2016 06/18/2016 Inactive diazepam 5 mg tablet RxNorm: 405536 Tablet(s) TAKE 1/2 TO 1 TABLET BY MOUTH DAILY NEEDED FOR ANXIETY 05/15/20162016 Inactive hydrocodone 10 mg-acetaminophen 325 mg tablet RxNorm: 206487 1 Tablet(s) PO Q6 as needed 04/29/2016 05/26/2016 Inactive omeprazole 40 mg capsule,delayed release RxNorm: 845920 Capsule(s) 1 CAPSULE(S) PO DAILY 04/28/2016 03/08/2017 Inactive diazepam 5 mg tablet RxNorm: 580989 Tablet(s) TAKE 1/2 TO 1 TABLET BY MOUTH DAILY NEEDED FOR ANXIETY 04/14/20162017 Inactive hydrocodone 10 mg-acetaminophen 325 mg tablet RxNorm: 871465 1 Tablet(s) PO Q6 as needed 04/01/2016 04/28/2016 Inactive Namenda XR 28 mg capsule sprinkle,extended release RxNorm: 822636 1 Capsule(s) PO daily 03/13/2016 06/18/2016 Inactive Namenda XR 28 mg capsule sprinkle,extended release RxNorm: 205985 1 Capsule(s) PO daily 03/12/2016 03/12/2016 Inactive diazepam 5 mg tablet RxNorm: 965983 Tablet(s) TAKE 1/2 TO 1 TABLET BY MOUTH DAILY NEEDED FOR ANXIETY 02/25/20162017 Inactive Namenda XR 28 mg capsule sprinkle,extended release RxNorm: 089289 1 Capsule(s) PO daily 02/04/2016 03/11/2016 Inactive hydrocodone 10 mg-acetaminophen 325 mg tablet RxNorm: 291688 1 Tablet(s) PO Q6 as needed 02/04/2016 03/04/2016 Inactive omeprazole 40 mg capsule,delayed release RxNorm: 525076 1 CAPSULE(S) PO DAILY 01/23/2016 04/27/2016 Inactive [SAVINGS FOR NON-COVERED DRUGS -- BIN:[id number], PCN: [id number], Group: XXXXX, ID# [id number], Questions: . THIS IS NOT INSURANCE.] sertraline 50 mg tablet RxNorm: 221827 TAKE 1 1/2 TABLET BY MOUTH ONCE DAILY 01/10/2016 03/08/2017 Inactive hydrocodone 10 mg-acetaminophen 325 mg tablet RxNorm: 915836 1 Tablet(s) PO Q6 as needed 01/07/2016 02/03/2016 Inactive diazepam 5 mg tablet RxNorm: 310879 Tablet(s) TAKE 1/2 TO 1 TABLET BY MOUTH DAILY NEEDED FOR ANXIETY 12/17/20152017 Inactive hydrocodone 10 mg-acetaminophen 325 mg tablet RxNorm: 229677 1 Tablet(s) PO Q6 as needed 12/10/2015 01/06/2016 Inactive gabapentin 100 mg capsule RxNorm: 404887 1 Capsule(s) PO TID 03/11/2016 Inactive gabapentin 100 mg capsule RxNorm: 285216 1 Capsule(s) PO TID 11/12/2015 Inactive hydrocodone 10 mg-acetaminophen 325 mg tablet RxNorm: 436752 1 Tablet(s) PO Q6 as needed 11/12/2015 12/09/2015 Inactive hydrocodone 10 mg-acetaminophen 325 mg tablet RxNorm: 950232 1 Tablet(s) PO Q6 as needed 10/16/2015 11/11/2015 Inactive hydrocodone 10 mg-acetaminophen 325 mg tablet RxNorm: 317022 1 Tablet(s) PO Q6 as needed 09/17/2015 10/15/2015 Inactive hydrocodone 10 mg-acetaminophen 325 mg tablet RxNorm: 389569 1 Tablet(s) PO Q6 as needed 08/16/2015 09/16/2015 Inactive diazepam 5 mg tablet RxNorm: 851054 Tablet(s) TAKE 1/2 TO 1 TABLET BY MOUTH DAILY NEEDED FOR ANXIETY 07/30/20152015 Inactive diazepam 5 mg tablet RxNorm: 316163 Tablet(s) TAKE 1/2 TO 1 TABLET BY MOUTH DAILY NEEDED FOR ANXIETY 07/27/20152015 Inactive hydrocodone 10 mg-acetaminophen 325 mg tablet RxNorm: 766150 1 Tablet(s) PO Q6 as needed 07/19/2015 08/15/2015 Inactive omeprazole 40 mg capsule,delayed release RxNorm: 458250 1 CAPSULE(S) PO DAILY 07/19/2015 01/14/2016 Inactive [SAVINGS FOR NON-COVERED DRUGS -- BIN:[id number], PCN: [id number], Group: XXXXX, ID# [id number], Questions: . THIS IS NOT INSURANCE.] hydrocodone 10 mg-acetaminophen 325 mg tablet RxNorm: 720171 1 Tablet(s) PO Q6 as needed 06/20/2015 07/18/2015 Inactive baclofen 10 mg tablet RxNorm: 987069 1 Tablet(s) PO TID 201506/07/2015 Inactive baclofen 10 mg tablet RxNorm: 663390 1 Tablet(s) PO TID 201507/07/2015 Inactive diazepam 5 mg tablet RxNorm: 894637 TAKE 1/2 TO 1 TABLET BY MOUTH DAILY NEEDED FOR ANXIETY 05/29/2015 04/12/2018 Inactive sertraline 50 mg tablet RxNorm: 566274 1.5 Tablet(s) PO daily 05/02/2015 10/28/2015 Inactive sertraline 50 mg tablet RxNorm: 401678 1.5 Tablet(s) PO daily 05/01/2015 05/01/2015 Inactive patient to call when needed diazepam 5 mg tablet RxNorm: 020719 1/2-1 Tablet(s) PO QDAY PRN 05/01/2015 05/29/2015 Inactive hydrocodone 10 mg-acetaminophen 325 mg tablet RxNorm: 437427 1 Tablet(s) PO Q6 as needed 04/23/2015 06/19/2015 Inactive hydrocodone 10 mg-acetaminophen 325 mg tablet RxNorm: 562473 1 Tablet(s) PO Q6 as needed 03/26/2015 04/22/2015 Inactive hydrocodone 10 mg-acetaminophen 325 mg tablet RxNorm: 288443 1 Tablet(s) PO Q6 as needed 02/26/2015 03/25/2015 Inactive Lyrica 50 mg capsule RxNorm: 180137 1 Capsule(s) PO TID 201402/03/2016 Inactive Lyrica 50 mg capsule RxNorm: 882045 1 Capsule(s) PO TID 201402/05/2015 Inactive Fish Oil [place] 3-6-9 300 mg-1,000 mg capsule,delayed release RxNorm: 1 Capsule(s) PO BID 01/30/2015 08/10/2016 Inactive diazepam 5 mg tablet RxNorm: 855358 1 Tablet(s) PO Q8 as needed 01/30/2015 04/30/2015 Inactive hydrocodone 10 mg-acetaminophen 325 mg tablet RxNorm: 808996 1 Tablet(s) PO Q6 as needed 01/19/2015 02/25/2015 Inactive sertraline 50 mg tablet RxNorm: 526912 1 Tablet(s) PO daily 04/30/2015 Inactive hydrocodone 10 mg-acetaminophen 325 mg tablet RxNorm: 753809 1 Tablet(s) PO Q6 as needed 12/12/2014 01/18/2015 Inactive hydrocodone 10 mg-acetaminophen 325 mg tablet RxNorm: 192498 1 Tablet(s) PO Q6 as needed 11/09/2014 12/11/2014 Inactive diazepam 5 mg tablet RxNorm: 847090 1 Tablet(s) PO Q8 as needed 11/01/2014 01/29/2015 Inactive omeprazole 40 mg capsule,delayed release RxNorm: 20020626 1 Capsule(s) PO daily 10/02/2014 04/30/2015 Inactive [SAVINGS FOR NON-COVERED DRUGS -- BIN:[id number], PCN: ASPROD1, Group: XXXXX, ID# [id number], Questions: . THIS IS NOT INSURANCE.] omeprazole 40 mg capsule,delayed release RxNorm: 20020626 1 Capsule(s) PO daily 10/02/2014 10/01/2014 Inactive melatonin 3 mg tablet RxNorm: 031864 1 Tablet(s) PO QHS No Start Date Active Vitamin D3 oral RxNorm : 2418 oral No Start Date Active diclofenac sodium 75 mg tablet,delayed release RxNorm: 466577 2 Tablet(s) PO daily No Start Date 04/30/2015 Inactive diazepam 5 mg tablet RxNorm: 586725 1 Tablet(s) PO TID No Start Date 10/31/2014 Inactive Multi Vitamin oral RxNorm: oral No Start Date 03/08/2017 Inactive Flonase nasal RxNorm: 17654 nasal No Start Date 03/08/2017 Inactive gabapentin 100 mg tablet RxNorm: 593492 1 Tablet(s) PO TID No Start Date 02/06/2015 Inactive hydrocodone 10 mg-acetaminophen 325 mg tablet RxNorm: 593323 1 Tablet(s) PO QID No Start Date 11/08/2014 Inactive Zithromax Z-Myles 250 mg tablet RxNorm: 385914 1 Tablet(s) PO UD No Start Date 06/24/2017 Inactive clopidogrel 75 mg tablet RxNorm: 302640 1 Tablet(s) PO daily No Start Date 09/03/2016 Inactive atorvastatin 40 mg tablet RxNorm: 972813 1 Tablet(s) PO daily No Start Date 09/20/2017 Inactive sertraline 50 mg tablet RxNorm: 320225 1 Tablet(s) PO daily No Start Date 01/04/2015 Inactive Medication Administered No Medication Administered data Immunizations Vaccine Codes Date Status Influenza CVX: 141 02/22/2018 completed Influenza CVX: 141 03/18/2017 completed Influenza CVX: 141 06/16/2016 completed Influenza CVX: 141 03/26/2015 completed Influenza CVX: 141 02/15/2014 completed Assessments Condition Codes Effective Dates Other allergic rhinitis ICD-10: J30.89 ICD-9: 477.8 07/29/2018 Major depressive disorder, recurrent, mild ICD-10: F33.0 [...] Visit Effective Dates Notes medication follow up 07/29/2018 medication follow up [...] Item Item Code Result Date Comp Metabolic Ols303 NA 141 mEq/L 05/06/2018 Comp Metabolic Nfk267 K 4.0 mEq/L 05/06/2018 Comp Metabolic Iuv032 CL 105 mEq/L 05/06/2018 Comp Metabolic Zke405 CO2 29.0 mEq/L 05/06/2018 Comp Metabolic Tcc082 ANION GAP 11 05/06/2018 Comp Metabolic Uxn575 GLUCOSE 103 mg/dL 05/06/2018 Comp Metabolic Cay068 Creat 0.8 mg/dL 05/06/2018 Comp Metabolic Kln780 eGFR 80 ml/min/1.73m2 05/06/2018 Comp Metabolic Jnv104 BUN 23 mg/dL 05/06/2018 Comp Metabolic Fgs975 B/C Ratio 30.3 Ratio 05/06/2018 Comp Metabolic Omc652 CALCIUM 9.2 mg/dL 05/06/2018 Comp Metabolic Jry526 ALK PHOS 65 U/L 05/06/2018 Comp Metabolic Ula049 AST(SGOT) 18 U/L 05/06/2018 Comp Metabolic Isa729 ALT(SGPT) 15 U/L 05/06/2018 Comp Metabolic Niw497 BILI T 0.5 mg/dL 05/06/2018 Comp Metabolic Vhg010 ALBUMIN 4.4 g/dL 05/06/2018 Comp Metabolic Zty789 TPRO 6.4 g/dL 05/06/2018 Comp Metabolic Jbt701 GLOB 2.0 g/dL 05/06/2018 Comp Metabolic Xds143 A/G Ratio 2.2 Ratio 05/06/2018 Comp Metabolic Ipe203 Osmo 285 mOsmo 05/06/2018 Cbc With Differential [...] 31.0 pg 05/05/2018 Cbc With Differential Ord2 Eagle% 7.4 % 05/05/2018 Cbc With Differential Ord2 [...] 2.60 K/ul 05/05/2018 Cbc With Differential Ord2 Eagle ABS# 0.7 K/ul 05/05/2018 Cbc With Differential Ord2 Eos ABS# 0.1 K/ul 05/05/2018 Cbc With Differential Ord2 Baso ABS# 0.0 K/ul 05/05/2018 C-Reactive Protein Qnt Crqnt CRP 0.1 mg/dl 11/04/2017 Sed Rate Ord21 ESR 2 mm/hr 11/04/2017 Comp Metabolic Uii971 NA 143 mEq/L 08/28/2017 Comp Metabolic Izw478 K 4.2 mEq/L 08/28/2017 Comp Metabolic Sob299 CL 108 mEq/L 08/28/2017 Comp Metabolic Hgy572 CO2 28.0 mEq/L 08/28/2017 Comp Metabolic Ewb815 ANION GAP 11 08/28/2017 Comp Metabolic Qqc902 GLUCOSE 89 mg/dL 08/28/2017 Comp Metabolic Jyz954 Creat 0.8 mg/dL 08/28/2017 Comp Metabolic Sge954 eGFR 78 ml/min/1.73m2 08/28/2017 Comp Metabolic Qkq512 BUN 19 mg/dL 08/28/2017 Comp Metabolic Zdg777 B/C Ratio 24.4 Ratio 08/28/2017 Comp Metabolic Jbt643 CALCIUM 8.4 mg/dL 08/28/2017 Comp Metabolic Hzk241 ALK PHOS 52 U/L 08/28/2017 Comp Metabolic Ttl043 AST(SGOT) 20 U/L 08/28/2017 Comp Metabolic Hna797 ALT(SGPT) 14 U/L 08/28/2017 Comp Metabolic Fzi642 BILI T 0.5 mg/dL 08/28/2017 Comp Metabolic Ajz857 ALBUMIN 4.0 g/dL 08/28/2017 Comp Metabolic Ohf591 TPRO 5.9 g/dL 08/28/2017 Comp Metabolic Ycc837 GLOB 1.9 g/dL 08/28/2017 Comp Metabolic Vmp047 A/G Ratio 2.1 Ratio 08/28/2017 Comp Metabolic Axd982 Osmo 287 mOsmo 08/28/2017 Cbc With Differential [...] 30.9 pg 08/28/2017 Cbc With Differential Ord2 [place]% 5.9 % 08/28/2017 Cbc With Differential Ord2 [...] 2.28 K/ul 08/28/2017 Cbc With Differential Ord2 [place] ABS# 0.4 K/ul 08/28/2017 Cbc With Differential [...] 31.7 pg 03/09/2017 Cbc With Differential Ord2 [place]% 6.1 % 03/09/2017 Cbc With Differential Ord2 [...] 1.78 K/ul 03/09/2017 Cbc With Differential Ord2 [place] ABS# 0.4 K/ul 03/09/2017 Cbc With Differential Ord2 Eos ABS# 0.1 K/ul 03/09/2017 Cbc With Differential Ord2 Baso ABS# 0.0 K/ul 03/09/2017 Tsh Ord6 hTSH II 0.87 uIU/mL 03/09/2017 %Hba1C Iub179 % HbA1c 57760-4 4.9 % 03/09/2017 %Hba1C Tkd656 Gluc Ave 94 mg/dL 03/09/2017 Comp Metabolic Myh486 NA 141 mEq/L 03/09/2017 Comp Metabolic Utf709 K 3.8 mEq/L 03/09/2017 Comp Metabolic Bpo961 CL 105 mEq/L 03/09/2017 Comp Metabolic Pxp391 CO2 29.0 mEq/L 03/09/2017 Comp Metabolic Egs323 ANION GAP 11 03/09/2017 Comp Metabolic Yxx309 GLUCOSE 98 mg/dL 03/09/2017 Comp Metabolic Hhe453 Creat 0.7 mg/dL 03/09/2017 Comp Metabolic Yfm705 eGFR 93 ml/min/1.73m2 03/09/2017 Comp Metabolic Zjs574 BUN 11 mg/dL 03/09/2017 Comp Metabolic Ltd229 B/C Ratio 16.4 Ratio 03/09/2017 Comp Metabolic Zgw052 CALCIUM 9.5 mg/dL 03/09/2017 Comp Metabolic Srr552 ALK PHOS 90 U/L 03/09/2017 Comp Metabolic Ntm484 AST(SGOT) 21 U/L 03/09/2017 Comp Metabolic Dfu760 ALT(SGPT) 15 U/L 03/09/2017 Comp Metabolic Wih204 BILI T 0.6 mg/dL 03/09/2017 Comp Metabolic Snj491 ALBUMIN 4.5 g/dL 03/09/2017 Comp Metabolic Cpf141 TPRO 6.4 g/dL 03/09/2017 Comp Metabolic Cru090 GLOB 1.9 g/dL 03/09/2017 Comp Metabolic Ofz394 A/G Ratio 2.3 Ratio 03/09/2017 Comp Metabolic Ntb470 Osmo 281 mOsmo 03/09/2017 Comp Metabolic Vaw009 NA 142 mEq/L 09/03/2016 Comp Metabolic Yvp768 K 3.9 mEq/L 09/03/2016 Comp Metabolic Yhe009 CL 107 mEq/L 09/03/2016 Comp Metabolic Ytb975 CO2 26.0 mEq/L 09/03/2016 Comp Metabolic Rai941 ANION GAP 13 09/03/2016 Comp Metabolic Kqd118 GLUCOSE 107 mg/dL 09/03/2016 Comp Metabolic Gvl588 Creat 0.7 mg/dL 09/03/2016 Comp Metabolic Nty475 eGFR 85 ml/min/1.73m2 09/03/2016 Comp Metabolic Aij331 BUN 16 mg/dL 09/03/2016 Comp Metabolic Yuv464 B/C Ratio 21.9 Ratio 09/03/2016 Comp Metabolic Awa212 CALCIUM 8.8 mg/dL 09/03/2016 Comp Metabolic Mgl613 ALK PHOS 51 U/L 09/03/2016 Comp Metabolic Ihp223 AST(SGOT) 24 U/L 09/03/2016 Comp Metabolic Yku515 ALT(SGPT) 20 U/L 09/03/2016 Comp Metabolic Lgd895 BILI T 0.7 mg/dL 09/03/2016 Comp Metabolic Rxf201 ALBUMIN 4.1 g/dL 09/03/2016 Comp Metabolic Tcq083 TPRO 6.1 g/dL 09/03/2016 Comp Metabolic Ddm685 GLOB 2.0 g/dL 09/03/2016 Comp Metabolic Ksx177 A/G Ratio 2.1 Ratio 09/03/2016 Comp Metabolic Kkm450 Osmo 285 mOsmo 09/03/2016 Cbc With Differential [...] 30.3 pg 09/03/2016 Cbc With Differential Ord2 [place]% 6.5 % 09/03/2016 Cbc With Differential Ord2 [...] 1.53 K/ul 09/03/2016 Cbc With Differential Ord2 [place] ABS# 0.4 K/ul 09/03/2016 Cbc With Differential [...] Ord15 CALCIUM 9.1 mg/dL 12/21/2015 Comp Metabolic Ziy995 NA 138 mEq/L 07/06/2015 Comp Metabolic Hss777 K 3.9 mEq/L 07/06/2015 Comp Metabolic Ppg118 CL 103 mEq/L 07/06/2015 Comp Metabolic Hgg162 CO2 28.0 mEq/L 07/06/2015 Comp Metabolic Zlj705 ANION GAP 11 07/06/2015 Comp Metabolic Umq303 GLUCOSE 114 mg/dL 07/06/2015 Comp Metabolic Qdo213 Creat 0.7 mg/dL 07/06/2015 Comp Metabolic Qpp576 eGFR 97 ml/min/1.73m2 07/06/2015 Comp Metabolic Bke380 BUN 11 mg/dL 07/06/2015 Comp Metabolic Rbh394 B/C Ratio 16.9 Ratio 07/06/2015 Comp Metabolic Xob718 CALCIUM 9.1 mg/dL 07/06/2015 Comp Metabolic Tjd283 ALK PHOS 57 U/L 07/06/2015 Comp Metabolic Itl344 AST(SGOT) 26 U/L 07/06/2015 Comp Metabolic Xpo605 ALT(SGPT) 17 U/L 07/06/2015 Comp Metabolic Jxk249 BILI T 0.6 mg/dL 07/06/2015 Comp Metabolic Les060 ALBUMIN 4.6 g/dL 07/06/2015 Comp Metabolic Ses413 TPRO 6.7 g/dL 07/06/2015 Comp Metabolic Qmt164 GLOB 2.1 g/dL 07/06/2015 Comp Metabolic Sef208 A/G Ratio 2.2 Ratio 07/06/2015 Comp Metabolic Sqi760 Osmo 276 mOsmo 07/06/2015 Lipid Ord30 CHOL 228 mg/dL 07/06/2015 Lipid Ord30 HDL 48.0 mg/dl 07/06/2015 Lipid Ord30 TRIG 176 mg/dL 07/06/2015 Lipid Ord30 LDL 145 mg/dL 07/06/2015 Lipid Ord30 C/HDL 4.8 Ratio 07/06/2015 Tsh Ord6 hTSH II 0.74 uIU/mL 05/01/2015 Comp Metabolic Vxj423 NA 141 mEq/L 05/01/2015 Comp Metabolic Fjc034 K 4.0 mEq/L 05/01/2015 Comp Metabolic Rur734 CL 106 mEq/L 05/01/2015 Comp Metabolic Ujr171 CO2 26.0 mEq/L 05/01/2015 Comp Metabolic Cml668 ANION GAP 13 05/01/2015 Comp Metabolic Eci049 GLUCOSE 124 mg/dL 05/01/2015 Comp Metabolic Ktv751 Creat 0.8 mg/dL 05/01/2015 Comp Metabolic Njg892 eGFR 79 ml/min/1.73m2 05/01/2015 Comp Metabolic Gxv010 BUN 13 mg/dL 05/01/2015 Comp Metabolic Lre094 B/C Ratio 16.7 Ratio 05/01/2015 Comp Metabolic Ohz074 CALCIUM 9.3 mg/dL 05/01/2015 Comp Metabolic Fdk682 ALK PHOS 54 U/L 05/01/2015 Comp Metabolic Jbw474 AST(SGOT) 21 U/L 05/01/2015 Comp Metabolic Wuh695 ALT(SGPT) 14 U/L 05/01/2015 Comp Metabolic Rsg629 BILI T 0.5 mg/dL 05/01/2015 Comp Metabolic Kri159 ALBUMIN 4.5 g/dL 05/01/2015 Comp Metabolic Gxp960 TPRO 6.4 g/dL 05/01/2015 Comp Metabolic Upb969 GLOB 1.9 g/dL 05/01/2015 Comp Metabolic Qie535 A/G Ratio 2.4 Ratio 05/01/2015 Comp Metabolic Wtv418 Osmo 283 mOsmo 05/01/2015 Cbc With Differential [...] Differential Ord2 RDW 16.8 % 05/01/2015 %Hba1C Uzp817 % HbA1c 26521-3 5.4 % 01/29/2015 %Hba1C Sqk793 Gluc Ave 108 mg/dL 01/29/2015 Lipid Ord30 CHOL 221 mg/dL 01/26/2015 Lipid Ord30 HDL 37.0 mg/dl 01/26/2015 Lipid Ord30 TRIG 274 mg/dL 01/26/2015 Lipid Ord30 LDL 129 mg/dL 01/26/2015 Lipid Ord30 C/HDL 6.0 Ratio 01/26/2015 Tsh Ord6 hTSH II 0.85 uIU/mL 01/26/2015 Comp Metabolic Rjb001 NA 137 mEq/L 01/26/2015 Comp Metabolic Dma362 K 4.0 mEq/L 01/26/2015 Comp Metabolic Lva008 CL 104 mEq/L 01/26/2015 Comp Metabolic Lcj973 CO2 27.0 mEq/L 01/26/2015 Comp Metabolic Qxp688 ANION GAP 10 01/26/2015 Comp Metabolic Dnk768 GLUCOSE 131 mg/dL 01/26/2015 Comp Metabolic Sfo433 Creat 0.8 mg/dL 01/26/2015 Comp Metabolic Yfg136 eGFR 77 ml/min/1.73m2 01/26/2015 Comp Metabolic Vrf960 BUN 16 mg/dL 01/26/2015 Comp Metabolic Gjj875 B/C Ratio 20.0 Ratio 01/26/2015 Comp Metabolic Ukw079 CALCIUM 9.1 mg/dL 01/26/2015 Comp Metabolic Uvc651 ALK PHOS 66 U/L 01/26/2015 Comp Metabolic Jzy864 AST(SGOT) 24 U/L 01/26/2015 Comp Metabolic Vlp604 ALT(SGPT) 20 U/L 01/26/2015 Comp Metabolic Ppl496 BILI T 0.4 mg/dL 01/26/2015 Comp Metabolic Wej513 ALBUMIN 4.2 g/dL 01/26/2015 Comp Metabolic Gqg006 TPRO 6.4 g/dL 01/26/2015 Comp Metabolic Jry112 GLOB 2.2 g/dL 01/26/2015 Comp Metabolic Rmb382 A/G Ratio 1.9 Ratio 01/26/2015 Comp Metabolic Udj257 Osmo 277 mOsmo 01/26/2015 Cbc With Differential [...] Differential Ord2 RDW 15.5 % 01/26/2015 B12 Lss654 B12 669.00 pg/ml 01/26/2015 Review of Systems [...] nourished 02/22/2018 None Full Exam - General 1995 Eyes conjunctiva /eyelids Overall: conjunctiva clear 02/22/2018 [...] status Orientation: What is the year/season/date/day/month (5): 02/04/2016 None Full Exam - General 1994 Neurologic mental status Orientation: Where are we - state/country/town/hospital/floor (5): 02/04/2016 None Full Exam - General 1994 Neurologic mental status Attention/calculation: _ Serial 7's or "world" spelled backward (5): 02/04/2016 None Full Exam - General 1994 [...] NO PRSV 4 BLANCA 3 YRS+ CPT-4: 45167 02/22/2018 ADMIN INFLUENZA VIRUS VAC CPT-4: G0008 03/18/2017 FLU VACC PRSV FREE INC ANTIG CPT-4: 08805 03/18/2017 INITIAL PREVENTIVE EXAM CPT-4: G0402 07/06/2015 IIV4 FLU VACC NO PRESERV ID Formatting Model/CDA Sections, Assigned to SNOMED CT: [id number] CPT-4: [id number] 03/26/2015 IMMUNIZATION ADMIN CPT -4: 47898 03/26/2015 Vital Signs Date Vital 07/29/2018 Blood Pressure 1: 120/68 Code : 8480-6 BMI: 28.5 Code : 93653-6 Heart Rate 1 : 75 bpm Height: 5'1" SpO2: 98% Weight: 151 lbs 05/05/2018 Blood Pressure 1: 120/80 Code : 8480-6 BMI: 29.1 Code : 37182-9 Heart Rate 1 : 76 bpm Height: 5'1" SpO2: 97% Weight: 154 lbs 02/22/2018 Blood Pressure 1: 140/70 Code : 8480-6 BMI: 26.3 Code : 61316-3 Heart Rate 1 : 60 bpm Height: 5'1" SpO2: 97% Weight: 139 lbs 12/29/2017 Blood Pressure 1: 110/58 Code : 8480-6 BMI: 23.8 Code : 85601-5 Heart Rate 1 : 56 bpm Height: 5'1" SpO2: 98% Weight: 126 lbs 10/28/2017 Blood Pressure 1: 96/68 Code : 8480-6 BMI: 21.7 Code : 13614-7 Heart Rate 1 : 68 bpm Height: 5'1" SpO2: 98% Weight: 115 lbs 09/23/2017 Blood Pressure 1: 134/72 Code : 8480-6 BMI: 22.5 Code : 84158-0 Heart Rate 1 : 72 bpm Height: 5'1" SpO2: 97% Weight: 119 lbs 03/18/2017 Blood Pressure 1: 140/72 Code : 8480-6 BMI: 21.5 Code : 95578-4 Heart Rate 1 : 64 bpm Height: 5'1" SpO2: 96% Weight: 114 lbs 03/09/2017 Blood Pressure 1: 120/72 Code : 8480-6 BMI: 21.5 Code : 54874-4 Heart Rate 1 : 75 bpm Height: 5'1" SpO2: 97% Weight: 114 lbs 12/09/2016 Blood Pressure 1: 130/76 Code : 8480-6 BMI: 23.8 Code : 27929-2 Heart Rate 1 : 68 bpm Height: 5'1" SpO2: 98% Weight: 126 lbs 09/08/2016 Blood Pressure 1: 162/80 Code : 8480-6 Blood Pressure 2: 145/90 Code: 8480-6 BMI: 24.7 Code: 27444-0 Heart Rate 1: 77 bpm Height: 5'1" SpO2: 97% Weight: 130 lbs 8 oz 08/11/2016 Blood Pressure 1: 130/80 Code : 8480-6 BMI: 25.9 Code : 67933-3 Heart Rate 1 : 62 bpm Height: 5'1" SpO2: 97% Weight: 137 lbs 07/03/2016 Blood Pressure 1: 134/74 Code : 8480-6 BMI: 26.8 Code : 86483-1 Heart Rate 1 : 74 bpm Height: 5'1" SpO2: 97% Weight: 142 lbs 06/19/2016 Blood Pressure 1: 118/66 Code : 8480-6 Heart Rate 1: 72 bpm SpO2: 96% Weight: 142 lbs 02/04/2016 Blood Pressure 1: 130/80 Code : 8480-6 BMI: 27.2 Code : 39841-4 Heart Rate 1 : 76 bpm Height: 5'1" SpO2: 96% Weight: 144 lbs 01/07/2016 Blood Pressure 1: 136/64 Code : 8480-6 BMI: 27.6 Code : 73661-8 Heart Rate 1 : 73 bpm Height: 5'1" SpO2: 987% Weight: 146 lbs 12/17/2015 Blood Pressure 1: 128/86 Code : 8480-6 BMI: 27.0 Code : 44280-0 Heart Rate 1 : 59 bpm Height: 5'1" SpO2: 96% Weight: 143 lbs 10/16/2015 Blood Pressure 1: 122/78 Code : 8480-6 BMI: 25.7 Code : 90511-2 Heart Rate 1 : 71 bpm Height: 5'1" SpO2: 96% Weight: 136 lbs 08/16/2015 Blood Pressure 1: 138/88 Code : 8480-6 BMI: 27.0 Code : 70913-3 Heart Rate 1 : 75 bpm Height: 5'1" SpO2: 98% Weight: 143 lbs 07/06/2015 Blood Pressure 1: 120/72 Code : 8480-6 BMI: 26.5 Code : 93395-2 Heart Rate 1 : 72 bpm Height: 5'1" SpO2: 96% Weight: 140 lbs 06/07/2015 Blood Pressure 1: 152/86 Code : 8480-6 BMI: 26.1 Code : 28706-2 Heart Rate 1 : 88 bpm Height: 5'1" SpO2: 97% Weight: 138 lbs 05/01/2015 Blood Pressure 1: 120/80 Code : 8480-6 BMI: 27.0 Code : 79795-9 Heart Rate 1 : 82 bpm Height: 5'1" SpO2: 98% Temperature: 36.7 (C) / 98.0 (F) Weight: 143 lbs 03/26/2015 Blood Pressure 1: 140/80 Code : 8480-6 BMI: 28.0 Code : 98116-6 Heart Rate 1 : 69 bpm Height: 5'1" SpO2: 96% Weight: 148 lbs 03/13/2015 Blood Pressure 1: 128/70 Code : 8480-6 BMI: 28.2 Code : 48249-2 Heart Rate 1 : 76 bpm Height: 5'1" Weight: 149 lbs 01/30/2015 Blood Pressure 1: 142/68 Code : 8480-6 BMI: 28.7 Code : 53819-4 Heart Rate 1 : 86 bpm Height: 5'1" SpO2: 96% Weight: 152 lbs 10/16/2014 Blood Pressure 1: 160/88 Code : 8480-6 BMI: 28.2 Code : 04738-3 Heart Rate 1 : 66 bpm Height: 5'1" Weight: 149 lbs Functional Status No Functional Status data History of Present Illness Symptom Name Status Result Effective Date Notes Location oral intake 07/29/2018 None Quality chronic [...] data Encounters Encounter Performer Location Codes Date 98114 EST. PATIENT, LEVEL III Diagnosis: Other allergic rhinitis[ICD10: J30.89] Angelica Ochoa MD, [facility] CPT-4: 90295 07/29/2018 02659 EST. PATIENT, LEVEL III Diagnosis: Dementia in other diseases classified elsewhere without behavioral disturbance[ICD10: F02.80] Diagnosis: Major depressive disorder, recurrent, mild[ICD10: F33.0] Diagnosis: Generalized anxiety disorder[ICD10: F41.1] Angelica Ochoa MD, [facility] CPT-4: 03575 05/05/2018 92109 EST. PATIENT, LEVEL III Diagnosis: Other insomnia[ICD10: G47.09] Diagnosis: Dementia in other diseases classified elsewhere without behavioral disturbance[ICD10: F02.80] Diagnosis: Encounter for immunization[ICD10: Z23] Angelica Ochoa MD, [facility] CPT-4: 86405 02/22/2018 84253 EST. PATIENT, LEVEL IV Diagnosis: Dementia in other diseases classified elsewhere without behavioral disturbance[ICD10: F02.80] Diagnosis: Major depressive disorder, recurrent, mild[ICD10: F33.0] Diagnosis: Other allergic rhinitis[ICD10: J30.89] Angelica Ochoa MD, [facility] CPT-4: 50811 12/29/2017 ([id number]) 40974 EST. PATIENT, LEVEL IV Diagnosis: Dementia in other diseases classified elsewhere without behavioral disturbance[ICD10: F02.80] Diagnosis: Major depressive disorder, recurrent, mild[ICD10: F33.0] Diagnosis: Allergy to other foods[ICD10: Z91.018] Marylu Ochoa MD, [facility] CPT-4: 58322 10/28/2017 06700 EST. 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 PATIENT, LEVEL IV Diagnosis: Essential (primary) hypertension[ICD10: I10] Diagnosis: Major depressive disorder, recurrent, moderate[ICD10: F33.1] Diagnosis: Underweight[ICD10: R63.6] Diagnosis: Localization-related (focal) (partial) symptomatic epilepsy and epileptic syndromes with simple partial seizures, not intractable, without status epilepticus[ICD10: G40.109] Marylu Ochoa MD, [facility] CPT-4: 53123 03/09/2017 ([id number]) 26141 EST. PATIENT, LEVEL IV Diagnosis: Mixed hyperlipidemia[ICD10: E78.2] Diagnosis: Chronic pain syndrome[ICD10: G89.4] Diagnosis: Major depressive disorder, recurrent, mild[ICD10: F33.0] Marylu Ochoa MD, [facility] CPT-4: 08081 12/09/2016 [id number] 05861 EST. PATIENT, LEVEL IV Diagnosis: Essential (primary) hypertension[ICD10: I10] Diagnosis: Low back pain[ICD10: M54.5] Diagnosis: Personal history of transient ischemic attack (TIA), and cerebral infarction without residual deficits[ICD10: Z86.73] Diagnosis: Major depressive disorder, recurrent, moderate[ICD10: F33.1] Diagnosis: Other sleep apnea[ICD10: G47.39] Marylu Ochoa MD, [facility] CPT-4: 77613 09/08/2016 ([id number]) 08172 EST. PATIENT, LEVEL IV Diagnosis: Mixed hyperlipidemia[ICD10: E78.2] Diagnosis: Other transient cerebral ischemic attacks and related syndromes[ICD10 : G45.8] Marylu Ochoa MD, [facility] CPT-4: 07461 2016 17454 EST. PATIENT, LEVEL III Diagnosis: Chronic pain syndrome[ICD10: G89.4] Diagnosis: Low back pain[ICD10: M54.5] Diagnosis: Major depressive disorder, recurrent, mild[ICD10: F33.0] Diagnosis: Mild cognitive impairment, so stated[ICD10: G31.84] Angelica Ochoa MD, [facility] CPT-4: 54150 07/03/2016 ([id number]) 55896 EST. PATIENT, LEVEL III Diagnosis: Chronic pain syndrome[ICD10: G89.4] Donna Ochoa MD, [facility] CPT-4: 11691 06/19/2016 ([id number]) 15586 EST. PATIENT, LEVEL IV Diagnosis: Chronic pain syndrome[ICD10: G89.4] Diagnosis: Mild cognitive impairment, so stated[ICD10: G31.84] Donna Ochoa MD, [facility] CPT-4: 35211 02/04/2016 ([id number]) 65295 EST. PATIENT, LEVEL IV Diagnosis: Chronic pain syndrome[ICD10: G89.4] Diagnosis: Mild cognitive impairment, so stated[ICD10: G31.84] Diagnosis: Major depressive disorder, recurrent, mild[ICD10: F33.0] Donna Ochoa MD , [facility] CPT-4: 41834 01/07/2016 ([id number]) 60620 EST. PATIENT, LEVEL IV Diagnosis: Chronic pain syndrome[ICD10: G89.4] Diagnosis: Headache[ICD10: R51] Diagnosis: Major depressive disorder, recurrent, mild[ICD10: F33.0] Diagnosis: Mixed hyperlipidemia[ICD10: E78.2] Donna Ochoa MD, [facility] CPT-4: 13546 12/17/2015 ([id number]) 40499 EST. PATIENT, LEVEL III Diagnosis: Chronic pain syndrome[ICD10: G89.4] Diagnosis: Major depressive disorder, recurrent, mild[ICD10: F33.0] Donna Ochoa MD , [facility] CPT-4: 11053 10/16/2015 ([id number]) 85892 EST. PATIENT, LEVEL III Diagnosis: Low back pain[ICD10: M54.5] Donna Ochoa MD, [facility] CPT-4: 20179 08/16/2015 ([id number]) 78585 EST. 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 PATIENT, LEVEL IV Diagnosis: Major depressive disorder, recurrent, mild[ICD10: F33.0] Diagnosis: Chronic pain syndrome[ICD10: G89.4] Diagnosis: Other fatigue[ICD10: R53.83] Donna Ochoa MD, [facility] CPT-4: 26515 05/01/2015 ([id number]) 07194 EST. PATIENT, LEVEL II Diagnosis: Plantar fascial fibromatosis[ICD10: M72.2] Donna Ochoa MD, [facility] CPT-4: 57368 03/26/2015 ([id number]) 67226 EST. PATIENT, LEVEL III Diagnosis: Plantar fascial fibromatosis[ICD10: M72.2] Donna Ochoa MD, [facility] CPT-4: 47515 03/13/2015 ([id number]) 87301 EST. PATIENT, LEVEL III Diagnosis: Hyperlipidemia[ICD9: 272.4] Diagnosis: ALLERGIC RHINITIS[ICD9: 477.9] Diagnosis: Chronic pain syndrome[ICD9: 338.4] Donna Ochoa MD, [facility] CPT-4: 34061 01/30/2015 ([id number]) OFFICE VISIT, NEW - LEVEL 4 Diagnosis: ESOPHAGEAL REFLUX[ICD9: 530.81] Diagnosis: Peripheral neuropathy[ICD9: 356.9] Diagnosis: Chronic pain syndrome[ICD9: 338.4] Diagnosis: OSTEOARTH NOS-UNSPEC[ICD9: 715.90] Diagnosis: DEPRESSIVE DISORDER NEC[ICD9: 311] [facility] CPT-4: 74186 10/16/2014 Plan of Care Planned Activity Notes [...] allergy spray. 07/29/2018 Appointment: Angelica Cuba WPtel: [phone] [facility] (30 min) Complex 07/29/2018 Patient Education: Patient [...] of treatment. 05/05/2018 Appointment: [phone] ([facility] 05/05/2018 Patient Education: Patient Medication Summary Completed 05/05/2018 Patient Education: Depression Completed 05/05/2018 Appointment: Angel[facility] Cbua [facility]Ptel[phone] (15 min) Moderate 03/24/2018 Visit Plan: Insomnia [...] of treatment. 02/22/2018 Appointment: Angel[facility] Cuba [facility]el[phone] (15 min) Moderate 02/22/2018 Appointment: Angelica Cuba WPtel: [phone] [facility] (15 min) Moderate 02/22/2018 Patient Education: Patient Medication Summary Completed 02/22/2018 Appointment: Angelica Cuba WPtel[phone] [place] (15 min) Moderate 02/18/2018 Visit Plan: Dementia [...] Summary Completed 12/29/2017 Appointment: Angelica Cuba WPtel: [phone] [place] (15 min) Moderate 12/23/2017 Patient Education: Patient [...] of adalgisa. 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 09/23/2017 Appointment: Angelica Cuba WPtel: [facility] (30 min) Complex 09/23/2017 Patient Education: Patient Medication Summary Completed 09/23/2017 [facility]ment[facility] [phone] 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 03/09/2017 Appointment: Marylu Ochoa WPtel: [phone] [facility] (30 min) Complex 03/09/2017 Patient Education: Patient Medication Summary Completed 03/09/2017 Appointment: Donna Walden WPtel: [phone] [phone] [place] (30 min) Complex 03/06/2017 Appointment: Marylu Ochoa WPtel: [phone] [facility]66[facility] (15 min) Moderate 01/08/2017 Visit Plan: Hyperlipidemia [...] Summary Completed 12/09/2016 Appointment: Marylu Ochoa WPtel: [phone] [facility] [place] (15 min) Moderate 11/11/2016 Appointment: Angelica Cuba WPtel: [phone] [facility] [place] (30 min) Complex 10/09/2016 Visit Plan: Hypertension [...] contributing to her memory loss, htn. 09/08/2016 Visit Plan: Hypertension - uncontrolled - [...] Aricept through [facility], refill namenda 09/08/2016 Appointment: Marylu Ochoa WPtel: [facility] (15 min) Moderate 09/08/2016 Patient Education: Patient Medication Summary Completed 09/08/2016 Appointment: Angelica Cuba WPtel: [facility]9 [facility] (30 min) Complex 08/19/2016 Visit Plan: Hyperlipidemia [...] plavix 08/11/2016 Appointment: Marylu Ochoa WPtel: [phone] (15 min) Moderate 08/11/2016 Patient Education: Patient [...] or concerns. 07/03/2016 Appointment: Angelica Cuba WPtel: [facility]0 [facility] (30 min) Complex 07/03/2016 Patient Education: Patient Medication Summary Completed 07/03/2016 Care Plan: Referral Order SNOMED-CT : [id number] Pending 07/03/2016 Visit Plan: Chronic Pain Syndrome - pt has chronic pain - has been maintained on current medications, has not sought out other medications , only uses PRN pain medications as directed, and understands the consequences of over-medication. 06/19/2016 Appointment: Donna Walden WPtel: [phone] [phone] (30 min) Complex 06/19/2016 Patient Education: Patient Medication Summary Completed 06/19/2016 Appointment: Donna Walden WPtel: [phone] [phone] (30 min) Complex 06/05/2016 Visit Plan: Chronic Pain Syndrome - pt has chronic pain - has been maintained on current medications, has not sought out other medications , only uses PRN pain medications as directed, and understands the consequences of over-medication. Mild cognitive impairment-discussed with Dr Arnulfo tam 02/04/2016 Appointment: Donna Walden WPtel: [phone] [phone] (30 min) Complex 02/04/2016 Patient Education: Patient Medication Summary Completed 02/04/2016 Appointment: Donna Walden WPtel: [phone] [phone] (30 min) Complex 01/14/2016 Visit Plan: Chronic [...] of testing. 01/07/2016 Appointment: Donna Walden WPtel: [phone] [phone] (15 min) Moderate 01/07/2016 Patient Education: Patient Medication Summary Completed 01/07/2016 Visit Plan: Chronic Pain Syndrome - pt has chronic pain - has been maintained on current medications, has not sought out other medications , only uses PRN pain medications as directed, and understands the consequences of over-medication. Headaches-memory loss-schedule MRI brain Hyperlipidemia- check fasting labs Vridqohhlx-lzmwrm-kd change in medications at this time 12/17/2015 Patient Education: Patient Medication Summary Completed 12/17/2015 Appointment: Donna Walden WPtel: [phone] [phone] (30 min) Complex 12/13/2015 Visit Plan: [...] current medications. 10/16/2015 Appointment: Donna Walden WPtel: [phone] (30 min) Complex 10/16/2015 Patient Education: Patient [...] pain symptoms. 06/07/2015 Appointment: Marylu Ochoa WPtel: [address] [place], [place] [address] (15 min) Moderate 06/07/2015 Patient Education: Patient [...] shoes - discussed inserts and referral to [employer] gr[employer]-patient wants to wait but will let us [...] for break through pain symptoms. 10/16/2014 Appointment: GabrielaMarylu WPtel: 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 . Allergies - chronic - recommended pt [...] spray in the nasal steroid allergy spray. mammogram order - given to patient - she is to schedule in [place] . Chronic Pain Syndrome - pt has [...] tylenol for break through pain symptoms. . Chronic Pain Syndrome - pt has [...] cognitive impairment-discussed with Dr Ochoa-Namenda starter pack restart cymbalta 30mg daily after 1 week [...] changes. Continue with current plan of treatment. ALEVE 2 TABS TWICE DAILY WITH FOOD [...] next office visit after review of testing. 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 FISH OIL 1000MG TWICE DAILY . Hyperlipidemia [...] spray in the nasal steroid allergy spray. Refill Cymbalta Voltaren gel for low back pain 90 day supply of Aricept through [facility] Add 50 mg Losartan daily for hypertension [...] hypoxemia contributing to her memory loss, htn. Refill Cymbalta Voltaren gel for low back pain 90 day supply of Aricept through [facility] Add 50 mg Losartan daily for hypertension [...] - 90 day supply of Aricept through [facility], refill namenda . Dementia - Pt with slowly progressive [...] symptoms are not controlled with the medication. . Esophageal Reflux - the patient has [...] Headaches-memory loss-schedule MRI brain Hyperlipidemia-check fasting labs Lqfwjbmzmt-vlhkgi-zz change in medications at this time . [...] supportive shoes -discussed inserts and referral to [employer]-patient wants to wait but will let us [...]
--- OUTSIDE RECORDS SUMMARY | 2018-09-20 05:28 | XMS REPORT | CCD ---
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 Name Role Phone PP Unavailable CCM Unavailable Summary Purpose Interface Exchange Insurance Providers Payer name Policy type / Coverage type Covered libertarian ID Effective Begin Date Effective End Date WPS Medicare Part B Medicare Part B [id number] 2015 Unknown [facility] Medicare Part B [id number] 2015 Unknown Family history Mother Diagnosis Age [...] Unknown Retired 10/16/[address]: 389450350 Never smoker 10/16/[address]: 297659760 Never drinks alcohol 10/16/2014 Allergies, Adverse Reactions, [...] Fill Instructions levocetirizine 5 mg tablet RxNorm: 269087 1 Tablet(s) PO QHS 08/27/2018 Active hydrocodone 10 mg-acetaminophen 325 mg tablet RxNorm: 026608 1 Tablet(s) PO Q6 as needed 07/29/2018 08/27/2018 Active hydrocodone 10 mg-acetaminophen 325 mg tablet RxNorm: 356042 1 Tablet(s) PO Q6 as needed 07/07/2018 07/28/2018 Inactive hydrocodone 10 mg-acetaminophen 325 mg tablet RxNorm: 433063 1 Tablet(s) PO Q6 as needed 06/08/2018 07/06/2018 Inactive Cymbalta 30 mg capsule,delayed release RxNorm: 531337 1 CAPSULE(S) PO DAILY 05/07/2018 11/02/2018 Active hydrocodone 10 mg-acetaminophen 325 mg tablet RxNorm: 818038 1 Tablet(s) PO Q6 as needed may fill on 03-27-18 04/28/201802/2019 Inactive diazepam 5 mg tablet RxNorm: 028077 1/2 Tablet(s) PO QHS as needed 04/13/2018 06/11/2018 Inactive hydrocodone 10 mg-acetaminophen 325 mg tablet RxNorm: 936289 1 Tablet(s) PO Q6 as needed may fill on 03-27-18 03/22/201808/2017 Inactive Aricept 10 mg tablet RxNorm: 380854 1 TABLET(S) PO DAILY 201707/12/2018 Inactive hydrocodone 10 mg-acetaminophen 325 mg tablet RxNorm: 212400 1 Tablet(s) PO Q6 as needed 02/26/2018 03/21/2018 Inactive diazepam 5 mg tablet RxNorm: 393875 1/2 Tablet(s) PO QHS as needed 02/22/2018 03/22/2018 Inactive hydrocodone 10 mg-acetaminophen 325 mg tablet RxNorm: 006271 1 Tablet(s) PO Q6 as needed 02/05/2018 02/25/2018 Inactive levetiracetam 500 mg tablet RxNorm: 349254 1 TABLET(S) PO BID 01/07/2018 04/06/2018 Inactive pt to finish out supply of liquid then start on tablets hydrocodone 10 mg-acetaminophen 325 mg tablet RxNorm: 364448 1 Tablet(s) PO Q6 as needed 12/29/2017 01/27/2018 Inactive hydrocodone 10 mg-acetaminophen 325 mg tablet RxNorm: 525148 1 Tablet(s) PO Q6 as needed 12/10/2017 12/28/2017 Inactive Zyrtec 10 mg tablet RxNorm: 2949528 1 Tablet(s) PO QAM for allergies 10/28/2017 05/25/2018 Inactive Zantac 75 mg tablet RxNorm: 970176 1 Tablet(s) PO BID 201702/24/2018 Inactive Aricept 10 mg tablet RxNorm: 218833 1 TABLET(S) PO DAILY 201702/23/2018 Inactive Cymbalta 30 mg capsule,delayed release RxNorm: 378231 1 Capsule(s) PO daily 10/22/2017 05/06/2018 Inactive hydrocodone 10 mg-acetaminophen 325 mg tablet RxNorm: 825283 1 Tablet(s) PO Q6 as needed 10/20/2017 11/18/2017 Inactive Voltaren 1 % topical gel RxNorm: 105738 4 Gram(s) TOP TID as needed for pain as needed 09/23/2017 09/17/2018 Active levetiracetam 500 mg tablet RxNorm: 624945 1 TABLET(S) PO BID 09/21/2017 10/20/2017 Inactive pt to finish out supply of liquid then start on tablets hydrocodone 10 mg-acetaminophen 325 mg tablet RxNorm: 194743 1 Tablet(s) PO Q6 as needed 08/27/2017 09/25/2017 Inactive Aricept 10 mg tablet RxNorm: 799981 1 Tablet(s) PO daily 201709/16/2017 Inactive Aricept 10 mg tablet RxNorm: 194153 1 Tablet(s) PO daily 201708/17/2017 Inactive hydrocodone 10 mg-acetaminophen 325 mg tablet RxNorm: 746359 1 Tablet(s) PO Q6 as needed 07/28/2017 08/26/2017 Inactive Zithromax Z-Myles 250 mg tablet RxNorm: 083571 1 Tablet(s) PO UD 06/25/2017 09/20/2017 Inactive hydrocodone 10 mg-acetaminophen 325 mg tablet RxNorm: 541741 1 Tablet(s) PO Q6 as needed 06/17/2017 07/16/2017 Inactive Namenda XR 28 mg capsule sprinkle,extended release RxNorm: 459690 1 Capsule(s) PO daily 05/08/2017 05/02/2018 Inactive Aricept 10 mg tablet RxNorm: 404736 1 Tablet(s) PO daily 201608/05/2017 Inactive hydrocodone 10 mg-acetaminophen 325 mg tablet RxNorm: 264192 1 Tablet(s) PO Q6 as needed 05/05/2017 06/03/2017 Inactive hydrocodone 10 mg-acetaminophen 325 mg tablet RxNorm: 780369 1 Tablet(s) PO Q6 as needed 04/06/2017 05/04/2017 Inactive diazepam 2 mg tablet RxNorm: 445950 1/2 - 1 Tablet(s) PO BID as needed 03/18/2017 09/20/2017 Inactive Cymbalta 30 mg capsule,delayed release RxNorm: 892656 1 Capsule(s) PO daily 03/09/2017 10/04/2017 Inactive levetiracetam 500 mg tablet RxNorm: 284270 1 Tablet(s) PO BID 03/09/2017 08/05/2017 Inactive pt to finish out supply of liquid then start on tablets Aricept 5 mg tablet RxNorm: 572894 1 Tablet(s) PO daily 201605/07/2017 Inactive pantoprazole 40 mg tablet,delayed release RxNorm: 302255 1 Tablet(s) PO daily 03/09/2017 07/06/2017 Inactive hydrocodone 10 mg-acetaminophen 325 mg tablet RxNorm: 204545 1 Tablet(s) PO Q6 as needed 12/04/2016 03/08/2017 Inactive hydrocodone 10 mg-acetaminophen 325 mg tablet RxNorm: 926438 1 Tablet(s) PO Q6 as needed 11/06/2016 12/03/2016 Inactive hydrocodone 10 mg-acetaminophen 325 mg tablet RxNorm: 114378 1 Tablet(s) PO Q6 as needed 10/08/2016 11/05/2016 Inactive Voltaren 1 % topical gel RxNorm: 769887 4 Gram(s) TOP TID as needed for pain as needed 09/25/2016 09/19/2017 Inactive hydrocodone 10 mg-acetaminophen 325 mg tablet RxNorm: 617125 1 Tablet(s) PO Q6 as needed 09/09/2016 10/07/2016 Inactive Voltaren 1 % topical gel RxNorm: 054978 1 Application TOP TID 09/08/2016 09/24/2016 Inactive Aricept 5 mg tablet RxNorm: 570954 1 Tablet(s) PO daily 201612/06/2016 Inactive Cymbalta 30 mg capsule,delayed release RxNorm: 868596 1 Capsule(s) PO daily 09/08/2016 12/06/2016 Inactive losartan 50 mg tablet RxNorm: 602334 1 Tablet(s) PO daily 201610/07/2016 Inactive clopidogrel 75 mg tablet RxNorm: 455268 75 MG PO DAILY 201609/20/2017 Inactive hydrocodone 10 mg-acetaminophen 325 mg tablet RxNorm: 832945 1 Tablet(s) PO Q6 as needed 08/15/2016 09/08/2016 Inactive hydrocodone 10 mg-acetaminophen 325 mg tablet RxNorm: 044673 1 Tablet(s) PO Q6 as needed 07/18/2016 08/14/2016 Inactive Cymbalta 30 mg capsule,delayed release RxNorm: 542573 1 Capsule(s) PO daily 07/03/2016 09/07/2016 Inactive Aricept 5 mg tablet RxNorm: 164760 1 Tablet(s) PO daily 201608/01/2016 Inactive Namenda XR 28 mg capsule sprinkle,extended release RxNorm: 647026 1 Capsule(s) PO daily 07/03/2016 05/07/2017 Inactive diazepam 5 mg tablet RxNorm: 375063 Tablet(s) PO daily as needed TAKE 1/2 TO 1 TABLET BY MOUTH DAILY NEEDED FOR ANXIETY 06/25/2016 03/06/2017 Inactive hydrocodone 10 mg-acetaminophen 325 mg tablet RxNorm: 268432 1 Tablet(s) PO Q6 as needed 06/19/2016 07/17/2016 Inactive Namenda XR 28 mg capsule sprinkle,extended release RxNorm: 034106 1 Capsule(s) PO daily 06/19/2016 07/02/2016 Inactive gabapentin 100 mg capsule RxNorm: 235961 1 Capsule(s) PO TID 03/08/2017 Inactive hydrocodone 10 mg-acetaminophen 325 mg tablet RxNorm: 679288 1 Tablet(s) PO Q6 as needed 05/27/2016 06/18/2016 Inactive diazepam 5 mg tablet RxNorm: 143991 Tablet(s) TAKE 1/2 TO 1 TABLET BY MOUTH DAILY NEEDED FOR ANXIETY 05/15/20162016 Inactive hydrocodone 10 mg-acetaminophen 325 mg tablet RxNorm: 880698 1 Tablet(s) PO Q6 as needed 04/29/2016 05/26/2016 Inactive omeprazole 40 mg capsule,delayed release RxNorm: 287372 Capsule(s) 1 CAPSULE(S) PO DAILY 04/28/2016 03/08/2017 Inactive diazepam 5 mg tablet RxNorm: 936229 Tablet(s) TAKE 1/2 TO 1 TABLET BY MOUTH DAILY NEEDED FOR ANXIETY 04/14/20162017 Inactive hydrocodone 10 mg-acetaminophen 325 mg tablet RxNorm: 569144 1 Tablet(s) PO Q6 as needed 04/01/2016 04/28/2016 Inactive Namenda XR 28 mg capsule sprinkle,extended release RxNorm: 206959 1 Capsule(s) PO daily 03/13/2016 06/18/2016 Inactive Namenda XR 28 mg capsule sprinkle,extended release RxNorm: 457488 1 Capsule(s) PO daily 03/12/2016 03/12/2016 Inactive diazepam 5 mg tablet RxNorm: 486346 Tablet(s) TAKE 1/2 TO 1 TABLET BY MOUTH DAILY NEEDED FOR ANXIETY 02/25/20162017 Inactive Namenda XR 28 mg capsule sprinkle,extended release RxNorm: 318777 1 Capsule(s) PO daily 02/04/2016 03/11/2016 Inactive hydrocodone 10 mg-acetaminophen 325 mg tablet RxNorm: 491536 1 Tablet(s) PO Q6 as needed 02/04/2016 03/04/2016 Inactive omeprazole 40 mg capsule,delayed release RxNorm: 039869 1 CAPSULE(S) PO DAILY 01/23/2016 04/27/2016 Inactive [SAVINGS FOR NON-COVERED DRUGS -- BIN:[id number], PCN: [id number], Group: XXXXX, ID# [id number], Questions: . THIS IS NOT INSURANCE.] sertraline 50 mg tablet RxNorm: 840547 TAKE 1 1/2 TABLET BY MOUTH ONCE DAILY 01/10/2016 03/08/2017 Inactive hydrocodone 10 mg-acetaminophen 325 mg tablet RxNorm: 638427 1 Tablet(s) PO Q6 as needed 01/07/2016 02/03/2016 Inactive diazepam 5 mg tablet RxNorm: 074025 Tablet(s) TAKE 1/2 TO 1 TABLET BY MOUTH DAILY NEEDED FOR ANXIETY 12/17/20152017 Inactive hydrocodone 10 mg-acetaminophen 325 mg tablet RxNorm: 041424 1 Tablet(s) PO Q6 as needed 12/10/2015 01/06/2016 Inactive gabapentin 100 mg capsule RxNorm: 890849 1 Capsule(s) PO TID 03/11/2016 Inactive gabapentin 100 mg capsule RxNorm: 457755 1 Capsule(s) PO TID 11/12/2015 Inactive hydrocodone 10 mg-acetaminophen 325 mg tablet RxNorm: 345383 1 Tablet(s) PO Q6 as needed 11/12/2015 12/09/2015 Inactive hydrocodone 10 mg-acetaminophen 325 mg tablet RxNorm: 131700 1 Tablet(s) PO Q6 as needed 10/16/2015 11/11/2015 Inactive hydrocodone 10 mg-acetaminophen 325 mg tablet RxNorm: 065024 1 Tablet(s) PO Q6 as needed 09/17/2015 10/15/2015 Inactive hydrocodone 10 mg-acetaminophen 325 mg tablet RxNorm: 264895 1 Tablet(s) PO Q6 as needed 08/16/2015 09/16/2015 Inactive diazepam 5 mg tablet RxNorm: 367416 Tablet(s) TAKE 1/2 TO 1 TABLET BY MOUTH DAILY NEEDED FOR ANXIETY 07/30/20152015 Inactive diazepam 5 mg tablet RxNorm: 920918 Tablet(s) TAKE 1/2 TO 1 TABLET BY MOUTH DAILY NEEDED FOR ANXIETY 07/27/20152015 Inactive hydrocodone 10 mg-acetaminophen 325 mg tablet RxNorm: 106870 1 Tablet(s) PO Q6 as needed 07/19/2015 08/15/2015 Inactive omeprazole 40 mg capsule,delayed release RxNorm: 287300 1 CAPSULE(S) PO DAILY 07/19/2015 01/14/2016 Inactive [SAVINGS FOR NON-COVERED DRUGS -- BIN:[id number], PCN: [id number], Group: XXXXX, ID# [id number], Questions: . THIS IS NOT INSURANCE.] hydrocodone 10 mg-acetaminophen 325 mg tablet RxNorm: 980449 1 Tablet(s) PO Q6 as needed 06/20/2015 07/18/2015 Inactive baclofen 10 mg tablet RxNorm: 323572 1 Tablet(s) PO TID 201506/07/2015 Inactive baclofen 10 mg tablet RxNorm: 994697 1 Tablet(s) PO TID 201507/07/2015 Inactive diazepam 5 mg tablet RxNorm: 410089 TAKE 1/2 TO 1 TABLET BY MOUTH DAILY NEEDED FOR ANXIETY 05/29/2015 04/12/2018 Inactive sertraline 50 mg tablet RxNorm: 711939 1.5 Tablet(s) PO daily 05/02/2015 10/28/2015 Inactive sertraline 50 mg tablet RxNorm: 222519 1.5 Tablet(s) PO daily 05/01/2015 05/01/2015 Inactive patient to call when needed diazepam 5 mg tablet RxNorm: 892318 1/2-1 Tablet(s) PO QDAY PRN 05/01/2015 05/29/2015 Inactive hydrocodone 10 mg-acetaminophen 325 mg tablet RxNorm: 918959 1 Tablet(s) PO Q6 as needed 04/23/2015 06/19/2015 Inactive hydrocodone 10 mg-acetaminophen 325 mg tablet RxNorm: 336095 1 Tablet(s) PO Q6 as needed 03/26/2015 04/22/2015 Inactive hydrocodone 10 mg-acetaminophen 325 mg tablet RxNorm: 841039 1 Tablet(s) PO Q6 as needed 02/26/2015 03/25/2015 Inactive Lyrica 50 mg capsule RxNorm: 261930 1 Capsule(s) PO TID 201402/03/2016 Inactive Lyrica 50 mg capsule RxNorm: 925447 1 Capsule(s) PO TID 201402/05/2015 Inactive Fish Oil [place] 3-6-9 300 mg-1,000 mg capsule,delayed release RxNorm: 1 Capsule(s) PO BID 01/30/2015 08/10/2016 Inactive diazepam 5 mg tablet RxNorm: 841493 1 Tablet(s) PO Q8 as needed 01/30/2015 04/30/2015 Inactive hydrocodone 10 mg-acetaminophen 325 mg tablet RxNorm: 097681 1 Tablet(s) PO Q6 as needed 01/19/2015 02/25/2015 Inactive sertraline 50 mg tablet RxNorm: 095300 1 Tablet(s) PO daily 04/30/2015 Inactive hydrocodone 10 mg-acetaminophen 325 mg tablet RxNorm: 929854 1 Tablet(s) PO Q6 as needed 12/12/2014 01/18/2015 Inactive hydrocodone 10 mg-acetaminophen 325 mg tablet RxNorm: 081167 1 Tablet(s) PO Q6 as needed 11/09/2014 12/11/2014 Inactive diazepam 5 mg tablet RxNorm: 366743 1 Tablet(s) PO Q8 as needed 11/01/2014 01/29/2015 Inactive omeprazole 40 mg capsule,delayed release RxNorm: 20020626 1 Capsule(s) PO daily 10/02/2014 04/30/2015 Inactive [SAVINGS FOR NON-COVERED DRUGS -- BIN:[id number], PCN: ASPROD1, Group: XXXXX, ID# [id number], Questions: . THIS IS NOT INSURANCE.] omeprazole 40 mg capsule,delayed release RxNorm: 20020626 1 Capsule(s) PO daily 10/02/2014 10/01/2014 Inactive melatonin 3 mg tablet RxNorm: 883897 1 Tablet(s) PO QHS No Start Date Active Vitamin D3 oral RxNorm : 2418 oral No Start Date Active diclofenac sodium 75 mg tablet,delayed release RxNorm: 713370 2 Tablet(s) PO daily No Start Date 04/30/2015 Inactive diazepam 5 mg tablet RxNorm: 477559 1 Tablet(s) PO TID No Start Date 10/31/2014 Inactive Multi Vitamin oral RxNorm: oral No Start Date 03/08/2017 Inactive Flonase nasal RxNorm: 61941 nasal No Start Date 03/08/2017 Inactive gabapentin 100 mg tablet RxNorm: 598957 1 Tablet(s) PO TID No Start Date 02/06/2015 Inactive hydrocodone 10 mg-acetaminophen 325 mg tablet RxNorm: 927215 1 Tablet(s) PO QID No Start Date 11/08/2014 Inactive Zithromax Z-Myles 250 mg tablet RxNorm: 535498 1 Tablet(s) PO UD No Start Date 06/24/2017 Inactive clopidogrel 75 mg tablet RxNorm: 342909 1 Tablet(s) PO daily No Start Date 09/03/2016 Inactive atorvastatin 40 mg tablet RxNorm: 700392 1 Tablet(s) PO daily No Start Date 09/20/2017 Inactive sertraline 50 mg tablet RxNorm: 805355 1 Tablet(s) PO daily No Start Date [...] Item Item Code Result Date Comp Metabolic Yad922 NA 141 mEq/L 05/06/2018 Comp Metabolic Djj204 K 4.0 mEq/L 05/06/2018 Comp Metabolic Jxs545 CL 105 mEq/L 05/06/2018 Comp Metabolic Frc575 CO2 29.0 mEq/L 05/06/2018 Comp Metabolic Krj329 ANION GAP 11 05/06/2018 Comp Metabolic Wwy783 GLUCOSE 103 mg/dL 05/06/2018 Comp Metabolic Krt307 Creat 0.8 mg/dL 05/06/2018 Comp Metabolic Tro126 eGFR 80 ml/min/1.73m2 05/06/2018 Comp Metabolic Vih550 BUN 23 mg/dL 05/06/2018 Comp Metabolic Nky738 B/C Ratio 30.3 Ratio 05/06/2018 Comp Metabolic Mab003 CALCIUM 9.2 mg/dL 05/06/2018 Comp Metabolic Qxr686 ALK PHOS 65 U/L 05/06/2018 Comp Metabolic Plo761 AST(SGOT) 18 U/L 05/06/2018 Comp Metabolic Xsr070 ALT(SGPT) 15 U/L 05/06/2018 Comp Metabolic Czp105 BILI T 0.5 mg/dL 05/06/2018 Comp Metabolic Nqr063 ALBUMIN 4.4 g/dL 05/06/2018 Comp Metabolic Xjk245 TPRO 6.4 g/dL 05/06/2018 Comp Metabolic Apx532 GLOB 2.0 g/dL 05/06/2018 Comp Metabolic Fok277 A/G Ratio 2.2 Ratio 05/06/2018 Comp Metabolic Wiz087 Osmo 285 mOsmo 05/06/2018 Cbc With Differential [...] 31.0 pg 05/05/2018 Cbc With Differential Ord2 [place]% 7.4 % 05/05/2018 Cbc With Differential Ord2 [...] 2.60 K/ul 05/05/2018 Cbc With Differential Ord2 [place] ABS# 0.7 K/ul 05/05/2018 Cbc With Differential Ord2 Eos ABS# 0.1 K/ul 05/05/2018 Cbc With Differential Ord2 Baso ABS# 0.0 K/ul 05/05/2018 C-Reactive Protein Qnt Crqnt CRP 0.1 mg/dl 11/04/2017 Sed Rate Ord21 ESR 2 mm/hr 11/04/2017 Comp Metabolic Cyt895 NA 143 mEq/L 08/28/2017 Comp Metabolic Zeq973 K 4.2 mEq/L 08/28/2017 Comp Metabolic Aoq687 CL 108 mEq/L 08/28/2017 Comp Metabolic Sgm114 CO2 28.0 mEq/L 08/28/2017 Comp Metabolic Bjy958 ANION GAP 11 08/28/2017 Comp Metabolic Twt638 GLUCOSE 89 mg/dL 08/28/2017 Comp Metabolic Uqd186 Creat 0.8 mg/dL 08/28/2017 Comp Metabolic Hzx043 eGFR 78 ml/min/1.73m2 08/28/2017 Comp Metabolic Lpe895 BUN 19 mg/dL 08/28/2017 Comp Metabolic Ubu843 B/C Ratio 24.4 Ratio 08/28/2017 Comp Metabolic Ogc723 CALCIUM 8.4 mg/dL 08/28/2017 Comp Metabolic Plj965 ALK PHOS 52 U/L 08/28/2017 Comp Metabolic Wim194 AST(SGOT) 20 U/L 08/28/2017 Comp Metabolic Sim817 ALT(SGPT) 14 U/L 08/28/2017 Comp Metabolic Mqq030 BILI T 0.5 mg/dL 08/28/2017 Comp Metabolic Nnp498 ALBUMIN 4.0 g/dL 08/28/2017 Comp Metabolic Ats562 TPRO 5.9 g/dL 08/28/2017 Comp Metabolic Fam095 GLOB 1.9 g/dL 08/28/2017 Comp Metabolic Fka985 A/G Ratio 2.1 Ratio 08/28/2017 Comp Metabolic Xlu632 Osmo 287 mOsmo 08/28/2017 Cbc With Differential [...] 30.9 pg 08/28/2017 Cbc With Differential Ord2 [place]% 5.9 % 08/28/2017 Cbc With Differential Ord2 [...] 2.28 K/ul 08/28/2017 Cbc With Differential Ord2 [place] ABS# 0.4 K/ul 08/28/2017 Cbc With Differential [...] 31.7 pg 03/09/2017 Cbc With Differential Ord2 [place]% 6.1 % 03/09/2017 Cbc With Differential Ord2 [...] 1.78 K/ul 03/09/2017 Cbc With Differential Ord2 [place] ABS# 0.4 K/ul 03/09/2017 Cbc With Differential Ord2 Eos ABS# 0.1 K/ul 03/09/2017 Cbc With Differential Ord2 Baso ABS# 0.0 K/ul 03/09/2017 Tsh Ord6 hTSH II 0.87 uIU/mL 03/09/2017 %Hba1C Mfo160 % HbA1c 35523-4 4.9 % 03/09/2017 %Hba1C Arj877 Gluc Ave 94 mg/dL 03/09/2017 Comp Metabolic Aoi808 NA 141 mEq/L 03/09/2017 Comp Metabolic Agn163 K 3.8 mEq/L 03/09/2017 Comp Metabolic Czo824 CL 105 mEq/L 03/09/2017 Comp Metabolic Ror247 CO2 29.0 mEq/L 03/09/2017 Comp Metabolic Ddh613 ANION GAP 11 03/09/2017 Comp Metabolic Xvi171 GLUCOSE 98 mg/dL 03/09/2017 Comp Metabolic Gcb821 Creat 0.7 mg/dL 03/09/2017 Comp Metabolic Mzx487 eGFR 93 ml/min/1.73m2 03/09/2017 Comp Metabolic Nfo967 BUN 11 mg/dL 03/09/2017 Comp Metabolic Jft369 B/C Ratio 16.4 Ratio 03/09/2017 Comp Metabolic Afj423 CALCIUM 9.5 mg/dL 03/09/2017 Comp Metabolic Svb648 ALK PHOS 90 U/L 03/09/2017 Comp Metabolic Pki403 AST(SGOT) 21 U/L 03/09/2017 Comp Metabolic Kid600 ALT(SGPT) 15 U/L 03/09/2017 Comp Metabolic Epk469 BILI T 0.6 mg/dL 03/09/2017 Comp Metabolic Hix327 ALBUMIN 4.5 g/dL 03/09/2017 Comp Metabolic Efm001 TPRO 6.4 g/dL 03/09/2017 Comp Metabolic Yzw030 GLOB 1.9 g/dL 03/09/2017 Comp Metabolic Lwi893 A/G Ratio 2.3 Ratio 03/09/2017 Comp Metabolic Nsp395 Osmo 281 mOsmo 03/09/2017 Comp Metabolic Irs183 NA 142 mEq/L 09/03/2016 Comp Metabolic Trl116 K 3.9 mEq/L 09/03/2016 Comp Metabolic Ovh094 CL 107 mEq/L 09/03/2016 Comp Metabolic Rcy631 CO2 26.0 mEq/L 09/03/2016 Comp Metabolic Mef617 ANION GAP 13 09/03/2016 Comp Metabolic Lic076 GLUCOSE 107 mg/dL 09/03/2016 Comp Metabolic Hvz514 Creat 0.7 mg/dL 09/03/2016 Comp Metabolic Tht828 eGFR 85 ml/min/1.73m2 09/03/2016 Comp Metabolic Zgm682 BUN 16 mg/dL 09/03/2016 Comp Metabolic Yei898 B/C Ratio 21.9 Ratio 09/03/2016 Comp Metabolic Ulg078 CALCIUM 8.8 mg/dL 09/03/2016 Comp Metabolic Arl826 ALK PHOS 51 U/L 09/03/2016 Comp Metabolic Yvv689 AST(SGOT) 24 U/L 09/03/2016 Comp Metabolic Tko862 ALT(SGPT) 20 U/L 09/03/2016 Comp Metabolic Kwc174 BILI T 0.7 mg/dL 09/03/2016 Comp Metabolic Jsi405 ALBUMIN 4.1 g/dL 09/03/2016 Comp Metabolic Kua160 TPRO 6.1 g/dL 09/03/2016 Comp Metabolic Ity221 GLOB 2.0 g/dL 09/03/2016 Comp Metabolic Efy379 A/G Ratio 2.1 Ratio 09/03/2016 Comp Metabolic Bjd461 Osmo 285 mOsmo 09/03/2016 Cbc With Differential [...] 30.3 pg 09/03/2016 Cbc With Differential Ord2 [place]% 6.5 % 09/03/2016 Cbc With Differential Ord2 [...] 1.53 K/ul 09/03/2016 Cbc With Differential Ord2 [place] ABS# 0.4 K/ul 09/03/2016 Cbc With Differential [...] Ord15 CALCIUM 9.1 mg/dL 12/21/2015 Comp Metabolic Fua611 NA 138 mEq/L 07/06/2015 Comp Metabolic Eht863 K 3.9 mEq/L 07/06/2015 Comp Metabolic Vbe637 CL 103 mEq/L 07/06/2015 Comp Metabolic Xuz711 CO2 28.0 mEq/L 07/06/2015 Comp Metabolic Wkn707 ANION GAP 11 07/06/2015 Comp Metabolic Qwm160 GLUCOSE 114 mg/dL 07/06/2015 Comp Metabolic Csb876 Creat 0.7 mg/dL 07/06/2015 Comp Metabolic Arl139 eGFR 97 ml/min/1.73m2 07/06/2015 Comp Metabolic Pck807 BUN 11 mg/dL 07/06/2015 Comp Metabolic Jpi598 B/C Ratio 16.9 Ratio 07/06/2015 Comp Metabolic Aet192 CALCIUM 9.1 mg/dL 07/06/2015 Comp Metabolic Wax656 ALK PHOS 57 U/L 07/06/2015 Comp Metabolic Ujy193 AST(SGOT) 26 U/L 07/06/2015 Comp Metabolic Cgy101 ALT(SGPT) 17 U/L 07/06/2015 Comp Metabolic Xbk947 BILI T 0.6 mg/dL 07/06/2015 Comp Metabolic Hus659 ALBUMIN 4.6 g/dL 07/06/2015 Comp Metabolic Okr839 TPRO 6.7 g/dL 07/06/2015 Comp Metabolic Vtz649 GLOB 2.1 g/dL 07/06/2015 Comp Metabolic Hjo037 A/G Ratio 2.2 Ratio 07/06/2015 Comp Metabolic Tsl375 Osmo 276 mOsmo 07/06/2015 Lipid Ord30 CHOL 228 mg/dL 07/06/2015 Lipid Ord30 HDL 48.0 mg/dl 07/06/2015 Lipid Ord30 TRIG 176 mg/dL 07/06/2015 Lipid Ord30 LDL 145 mg/dL 07/06/2015 Lipid Ord30 C/HDL 4.8 Ratio 07/06/2015 Tsh Ord6 hTSH II 0.74 uIU/mL 05/01/2015 Comp Metabolic Oig408 NA 141 mEq/L 05/01/2015 Comp Metabolic Kqy241 K 4.0 mEq/L 05/01/2015 Comp Metabolic Odr712 CL 106 mEq/L 05/01/2015 Comp Metabolic Ujl893 CO2 26.0 mEq/L 05/01/2015 Comp Metabolic Nil701 ANION GAP 13 05/01/2015 Comp Metabolic Tmd240 GLUCOSE 124 mg/dL 05/01/2015 Comp Metabolic Whc883 Creat 0.8 mg/dL 05/01/2015 Comp Metabolic Ueg805 eGFR 79 ml/min/1.73m2 05/01/2015 Comp Metabolic Ppg074 BUN 13 mg/dL 05/01/2015 Comp Metabolic Dso313 B/C Ratio 16.7 Ratio 05/01/2015 Comp Metabolic Hhv722 CALCIUM 9.3 mg/dL 05/01/2015 Comp Metabolic Iia629 ALK PHOS 54 U/L 05/01/2015 Comp Metabolic Uyg423 AST(SGOT) 21 U/L 05/01/2015 Comp Metabolic Thj941 ALT(SGPT) 14 U/L 05/01/2015 Comp Metabolic Pkx754 BILI T 0.5 mg/dL 05/01/2015 Comp Metabolic Xrs072 ALBUMIN 4.5 g/dL 05/01/2015 Comp Metabolic Ajx194 TPRO 6.4 g/dL 05/01/2015 Comp Metabolic Wzn092 GLOB 1.9 g/dL 05/01/2015 Comp Metabolic Zgn590 A/G Ratio 2.4 Ratio 05/01/2015 Comp Metabolic Zfc216 Osmo 283 mOsmo 05/01/2015 Cbc With Differential [...] Differential Ord2 RDW 16.8 % 05/01/2015 %Hba1C Nts753 % HbA1c 25438-0 5.4 % 01/29/2015 %Hba1C Drs420 Gluc Ave 108 mg/dL 01/29/2015 Lipid Ord30 CHOL 221 mg/dL 01/26/2015 Lipid Ord30 HDL 37.0 mg/dl 01/26/2015 Lipid Ord30 TRIG 274 mg/dL 01/26/2015 Lipid Ord30 LDL 129 mg/dL 01/26/2015 Lipid Ord30 C/HDL 6.0 Ratio 01/26/2015 Tsh Ord6 hTSH II 0.85 uIU/mL 01/26/2015 Comp Metabolic Mfi400 NA 137 mEq/L 01/26/2015 Comp Metabolic Iwy159 K 4.0 mEq/L 01/26/2015 Comp Metabolic Qjs498 CL 104 mEq/L 01/26/2015 Comp Metabolic Hmi468 CO2 27.0 mEq/L 01/26/2015 Comp Metabolic Iwc758 ANION GAP 10 01/26/2015 Comp Metabolic Oav327 GLUCOSE 131 mg/dL 01/26/2015 Comp Metabolic Ywr135 Creat 0.8 mg/dL 01/26/2015 Comp Metabolic Ddi009 eGFR 77 ml/min/1.73m2 01/26/2015 Comp Metabolic Bbi252 BUN 16 mg/dL 01/26/2015 Comp Metabolic Opc819 B/C Ratio 20.0 Ratio 01/26/2015 Comp Metabolic Qzr597 CALCIUM 9.1 mg/dL 01/26/2015 Comp Metabolic Doa304 ALK PHOS 66 U/L 01/26/2015 Comp Metabolic Ixk886 AST(SGOT) 24 U/L 01/26/2015 Comp Metabolic Hto253 ALT(SGPT) 20 U/L 01/26/2015 Comp Metabolic Mti388 BILI T 0.4 mg/dL 01/26/2015 Comp Metabolic Nbn068 ALBUMIN 4.2 g/dL 01/26/2015 Comp Metabolic Wqw350 TPRO 6.4 g/dL 01/26/2015 Comp Metabolic Msg869 GLOB 2.2 g/dL 01/26/2015 Comp Metabolic Ezz311 A/G Ratio 1.9 Ratio 01/26/2015 Comp Metabolic Qyg466 Osmo 277 mOsmo 01/26/2015 Cbc With Differential [...] Differential Ord2 RDW 15.5 % 01/26/2015 B12 Pqp989 B12 669.00 pg/ml 01/26/2015 Review of Systems [...] NO PRSV 4 BLANCA 3 YRS+ CPT-4: 60429 02/22/2018 ADMIN INFLUENZA VIRUS VAC CPT-4: G0008 03/18/2017 FLU VACC PRSV FREE INC ANTIG CPT-4: 67567 03/18/2017 INITIAL PREVENTIVE EXAM CPT-4: G0402 07/06/2015 IIV4 FLU VACC NO PRESERV ID Formatting Model/CDA Sections, Assigned to SNOMED CT: [id number] CPT-4: 50967Yfaovmx 03/26/2015 IMMUNIZATION ADMIN CPT -4: 11229 03/26/2015 Vital Signs Date Vital 07/29/2018 Blood Pressure 1: 120/68 Code : 8480-6 BMI: 28.5 Code : 79605-1 Heart Rate 1 : 75 bpm Height: 5'1" SpO2: 98% Weight: 151 lbs 05/05/2018 Blood Pressure 1: 120/80 Code : 8480-6 BMI: 29.1 Code : 00654-4 Heart Rate 1 : 76 bpm Height: 5'1" SpO2: 97% Weight: 154 lbs 02/22/2018 Blood Pressure 1: 140/70 Code : 8480-6 BMI: 26.3 Code : 09155-5 Heart Rate 1 : 60 bpm Height: 5'1" SpO2: 97% Weight: 139 lbs 12/29/2017 Blood Pressure 1: 110/58 Code : 8480-6 BMI: 23.8 Code : 21648-2 Heart Rate 1 : 56 bpm Height: 5'1" SpO2: 98% Weight: 126 lbs 10/28/2017 Blood Pressure 1: 96/68 Code : 8480-6 BMI: 21.7 Code : 28716-5 Heart Rate 1 : 68 bpm Height: 5'1" SpO2: 98% Weight: 115 lbs 09/23/2017 Blood Pressure 1: 134/72 Code : 8480-6 BMI: 22.5 Code : 41217-2 Heart Rate 1 : 72 bpm Height: 5'1" SpO2: 97% Weight: 119 lbs 03/18/2017 Blood Pressure 1: 140/72 Code : 8480-6 BMI: 21.5 Code : 50765-4 Heart Rate 1 : 64 bpm Height: 5'1" SpO2: 96% Weight: 114 lbs 03/09/2017 Blood Pressure 1: 120/72 Code : 8480-6 BMI: 21.5 Code : 46885-6 Heart Rate 1 : 75 bpm Height: 5'1" SpO2: 97% Weight: 114 lbs 12/09/2016 Blood Pressure 1: 130/76 Code : 8480-6 BMI: 23.8 Code : 91269-3 Heart Rate 1 : 68 bpm Height: 5'1" SpO2: 98% Weight: 126 lbs 09/08/2016 Blood Pressure 1: 162/80 Code : 8480-6 Blood Pressure 2: 145/90 Code: 8480-6 BMI: 24.7 Code: 06411-5 Heart Rate 1: 77 bpm Height: 5'1" SpO2: 97% Weight: 130 lbs 8 oz 08/11/2016 Blood Pressure 1: 130/80 Code : 8480-6 BMI: 25.9 Code : 82166-6 Heart Rate 1 : 62 bpm Height: 5'1" SpO2: 97% Weight: 137 lbs 07/03/2016 Blood Pressure 1: 134/74 Code : 8480-6 BMI: 26.8 Code : 63367-4 Heart Rate 1 : 74 bpm Height: 5'1" SpO2: 97% Weight: 142 lbs 06/19/2016 Blood Pressure 1: 118/66 Code : 8480-6 Heart Rate 1: 72 bpm SpO2: 96% Weight: 142 lbs 02/04/2016 Blood Pressure 1: 130/80 Code : 8480-6 BMI: 27.2 Code : 37553-9 Heart Rate 1 : 76 bpm Height: 5'1" SpO2: 96% Weight: 144 lbs 01/07/2016 Blood Pressure 1: 136/64 Code : 8480-6 BMI: 27.6 Code : 38936-7 Heart Rate 1 : 73 bpm Height: 5'1" SpO2: 987% Weight: 146 lbs 12/17/2015 Blood Pressure 1: 128/86 Code : 8480-6 BMI: 27.0 Code : 33940-6 Heart Rate 1 : 59 bpm Height: 5'1" SpO2: 96% Weight: 143 lbs 10/16/2015 Blood Pressure 1: 122/78 Code : 8480-6 BMI: 25.7 Code : 27308-6 Heart Rate 1 : 71 bpm Height: 5'1" SpO2: 96% Weight: 136 lbs 08/16/2015 Blood Pressure 1: 138/88 Code : 8480-6 BMI: 27.0 Code : 48610-7 Heart Rate 1 : 75 bpm Height: 5'1" SpO2: 98% Weight: 143 lbs 07/06/2015 Blood Pressure 1: 120/72 Code : 8480-6 BMI: 26.5 Code : 24171-4 Heart Rate 1 : 72 bpm Height: 5'1" SpO2: 96% Weight: 140 lbs 06/07/2015 Blood Pressure 1: 152/86 Code : 8480-6 BMI: 26.1 Code : 68016-6 Heart Rate 1 : 88 bpm Height: 5'1" SpO2: 97% Weight: 138 lbs 05/01/2015 Blood Pressure 1: 120/80 Code : 8480-6 BMI: 27.0 Code : 56294-6 Heart Rate 1 : 82 bpm Height: 5'1" SpO2: 98% Temperature: 36.7 (C) / 98.0 (F) Weight: 143 lbs 03/26/2015 Blood Pressure 1: 140/80 Code : 8480-6 BMI: 28.0 Code : 87539-8 Heart Rate 1 : 69 bpm Height: 5'1" SpO2: 96% Weight: 148 lbs 03/13/2015 Blood Pressure 1: 128/70 Code : 8480-6 BMI: 28.2 Code : 43174-2 Heart Rate 1 : 76 bpm Height: 5'1" Weight: 149 lbs 01/30/2015 Blood Pressure 1: 142/68 Code : 8480-6 BMI: 28.7 Code : 93747-2 Heart Rate 1 : 86 bpm Height: 5'1" SpO2: 96% Weight: 152 lbs 10/16/2014 Blood Pressure 1: 160/88 Code : 8480-6 BMI: 28.2 Code : 69417-6 Heart Rate 1 : 66 bpm Height: [...] data Encounters Encounter Performer Location Codes Date 29050 EST. PATIENT, LEVEL III Diagnosis: Other allergic rhinitis[ICD10: J30.89] Angelica Ochoa MD, [facility] CPT-4: 11978 07/29/2018 07529 EST. PATIENT, LEVEL III Diagnosis: Dementia in other diseases classified elsewhere without behavioral disturbance[ICD10: F02.80] Diagnosis: Major depressive disorder, recurrent, mild[ICD10: F33.0] Diagnosis: Generalized anxiety disorder[ICD10: F41.1] Angelica Ochoa MD, [facility] CPT-4: 64232 05/05/2018 17160 EST. PATIENT, LEVEL III Diagnosis: Other insomnia[ICD10: G47.09] Diagnosis: Dementia in other diseases classified elsewhere without behavioral disturbance[ICD10: F02.80] Diagnosis: Encounter for immunization[ICD10: Z23] Angelica Ochoa MD, [facility] CPT-4: 74151 02/22/2018 02911 EST. PATIENT, LEVEL IV Diagnosis: Dementia in other diseases classified elsewhere without behavioral disturbance[ICD10: F02.80] Diagnosis: Major depressive disorder, recurrent, mild[ICD10: F33.0] Diagnosis: Other allergic rhinitis[ICD10: J30.89] Angelica Ochoa MD, [facility] CPT-4: 78752 12/29/2017 ([id number]) 22742 EST. PATIENT, LEVEL IV Diagnosis: Dementia in other diseases classified elsewhere without behavioral disturbance[ICD10: F02.80] Diagnosis: Major depressive disorder, recurrent, mild[ICD10: F33.0] Diagnosis: Allergy to other foods[ICD10: Z91.018] Marylu Ochoa MD, [facility] CPT-4: 18086 10/28/2017 31930 EST. 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 PATIENT, LEVEL IV Diagnosis: Essential (primary) hypertension[ICD10: I10] Diagnosis: Major depressive disorder, recurrent, moderate[ICD10: F33.1] Diagnosis: Underweight[ICD10: R63.6] Diagnosis: Localization-related (focal) (partial) symptomatic epilepsy and epileptic syndromes with simple partial seizures, not intractable, without status epilepticus[ICD10: G40.109] Marylu Ochoa MD, [facility] CPT-4: 15009 03/09/2017 ([id number]) 45421 EST. PATIENT, LEVEL IV Diagnosis: Mixed hyperlipidemia[ICD10: E78.2] Diagnosis: Chronic pain syndrome[ICD10: G89.4] Diagnosis: Major depressive disorder, recurrent, mild[ICD10: F33.0] Marylu Ochoa MD, [facility] CPT-4: 85616 12/09/2016 53581 20672 EST. PATIENT, LEVEL IV Diagnosis: Essential (primary) hypertension[ICD10: I10] Diagnosis: Low back pain[ICD10: M54.5] Diagnosis: Personal history of transient ischemic attack (TIA), and cerebral infarction without residual deficits[ICD10: Z86.73] Diagnosis: Major depressive disorder, recurrent, moderate[ICD10: F33.1] Diagnosis: Other sleep apnea[ICD10: G47.39] Marylu Ochao MD, [facility] CPT-4: 13154 09/08/2016 ([id number]) 61475 EST. PATIENT, LEVEL IV Diagnosis: Mixed hyperlipidemia[ICD10: E78.2] Diagnosis: Other transient cerebral ischemic attacks and related syndromes[ICD10 : G45.8] Marylu Ochoa MD, [facility] CPT-4: 27506 2016 46812 EST. PATIENT, LEVEL III Diagnosis: Chronic pain syndrome[ICD10: G89.4] Diagnosis: Low back pain[ICD10: M54.5] Diagnosis: Major depressive disorder, recurrent, mild[ICD10: F33.0] Diagnosis: Mild cognitive impairment, so stated[ICD10: G31.84] Angelica Ochoa MD, [facility] CPT-4: 20206 07/03/2016 ([id number]) 78889 EST. PATIENT, LEVEL III Diagnosis: Chronic pain syndrome[ICD10: G89.4] Donna Ochoa MD, [facility] CPT-4: 92115 06/19/2016 ([id number]) 75468 EST. PATIENT, LEVEL IV Diagnosis: Chronic pain syndrome[ICD10: G89.4] Diagnosis: Mild cognitive impairment, so stated[ICD10: G31.84] Donna Ochoa MD, [facility] CPT-4: 83730 02/04/2016 ([id number]) 71086 EST. PATIENT, LEVEL IV Diagnosis: Chronic pain syndrome[ICD10: G89.4] Diagnosis: Mild cognitive impairment, so stated[ICD10: G31.84] Diagnosis: Major depressive disorder, recurrent, mild[ICD10: F33.0] Donna Ochoa MD , [facility] CPT-4: 99366 01/07/2016 ([id number]) 24171 EST. PATIENT, LEVEL IV Diagnosis: Chronic pain syndrome[ICD10: G89.4] Diagnosis: Headache[ICD10: R51] Diagnosis: Major depressive disorder, recurrent, mild[ICD10: F33.0] Diagnosis: Mixed hyperlipidemia[ICD10: E78.2] Donna Ochoa MD, [facility] CPT-4: 88911 12/17/2015 ([id number]) 23155 EST. PATIENT, LEVEL III Diagnosis: Chronic pain syndrome[ICD10: G89.4] Diagnosis: Major depressive disorder, recurrent, mild[ICD10: F33.0] Donna Ochoa MD , [facility] CPT-4: 27003 10/16/2015 ([id number]) 03428 EST. PATIENT, LEVEL III Diagnosis: Low back pain[ICD10: M54.5] Donna Ochoa MD, [facility] CPT-4: 25118 08/16/2015 ([id number]) 25058 EST. 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 PATIENT, LEVEL IV Diagnosis: Major depressive disorder, recurrent, mild[ICD10: F33.0] Diagnosis: Chronic pain syndrome[ICD10: G89.4] Diagnosis: Other fatigue[ICD10: R53.83] Donna Ochoa MD, [facility] CPT-4: 88629 05/01/2015 ([id number]) 07245 EST. PATIENT, LEVEL II Diagnosis: Plantar fascial fibromatosis[ICD10: M72.2] Donna Ochoa MD, [facility] CPT-4: 24384 03/26/2015 ([id number]) 20306 EST. PATIENT, LEVEL III Diagnosis: Plantar fascial fibromatosis[ICD10: M72.2] Donna Ochoa MD, [facility] CPT-4: 72935 03/13/2015 ([id number]) 22714 EST. PATIENT, LEVEL III Diagnosis: Hyperlipidemia[ICD9: 272.4] Diagnosis: ALLERGIC RHINITIS[ICD9: 477.9] Diagnosis: Chronic pain syndrome[ICD9: 338.4] Donna Ochoa MD, [facility] CPT-4: 85679 01/30/2015 ([id number]) OFFICE VISIT, NEW - LEVEL 4 Diagnosis: ESOPHAGEAL REFLUX[ICD9: 530.81] Diagnosis: Peripheral neuropathy[ICD9: 356.9] Diagnosis: Chronic pain syndrome[ICD9: 338.4] Diagnosis: OSTEOARTH NOS-UNSPEC[ICD9: 715.90] Diagnosis: DEPRESSIVE DISORDER NEC[ICD9: 311] [facility] CPT-4: 20969 10/16/2014 Plan of Care Planned Activity Notes [...] spray. 07/29/2018 Appointment: Angelica Cuba WPtel: [phone] [phone] (30 min) Complex 07/29/2018 Patient Education: Patient [...] treatment. 05/05/2018 [phone] [facility] 05/05/2018 Patient Education: Patient Medication Summary Completed 05/05/2018 Patient Education: Depression Completed 05/05/2018 Appointment: [facility] [place] [phone] (15 min) Moderate 03/24/2018 Visit Plan: [...] of treatment. 02/22/2018 Appointment: [facility] [place] [phone] ([facility] min) Moderate 02/22/2018 Appointment: Angelica Cuba WPtel: [phone] [phone] (15 min) Moderate 02/22/2018 Patient Education: Patient Medication Summary Completed 02/22/2018 Appointment: [facility] [place] [phone] [place] (15 min) Moderate 02/18/2018 Visit Plan: [...] Summary Completed 12/29/2017 Appointment: [facility] [place] [phone] [place] (15 min) Moderate 12/23/2017 Patient Education: [...] of adalgisa. 10/28/2017 Appointment: Marylu Ochoa WPtel: [address] [place], [place] [phone] (15 min) Moderate 10/28/2017 Patient Education: Patient [...] make a follow up appointment with her analytical technician - The patient has been counseled to [...] acute concerns. 09/23/2017 Appointment: Angelica Cuba WPtel: [facility] ([facility] min) Complex 09/23/2017 Patient Education: Patient Medication Summary Completed 09/23/2017 [facility]ment[phone] ([facility]) Moderate 08/26/2017 Appointment: [facility] [place] [phone] ([facility] min) Complex 06/30/2017 Referral: External, Ordering Provider Referral Initiated 05/27/2017 Care Plan: Referral Order SNOMED-CT : [id number] Pending 04/20/2017 Visit Plan: Anxiety - the [...] make a follow up appointment with her analytical technician - The patient has been counseled to [...] at home. 03/09/2017 Appointment: Marylu Ochoa WPtel: [phone] [facility] (30 min) Complex 03/09/2017 Patient Education: Patient Medication Summary Completed 03/09/2017 Appointment: Donna Walden WPtel: [phone] [phone] [place] (30 min) Complex 03/06/2017 Appointment: Marylu Ochoa WPtel: [phone] [facility] (15 min) Moderate 01/08/2017 Visit [...] Summary Completed 12/09/2016 Appointment: Marylu Ochoa WPtel: [phone] [facility] [place] (15 min) Moderate 11/11/2016 Appointment: Angelica Cuba WPtel: [phone] [facility] [place] (30 min) Complex 10/09/2016 Visit Plan: [...] loss, htn. 09/08/2016 Appointment: Mary[facility]cho[facility] WPtel[facility] (15 min) Moderate 09/08/2016 Patient Education: Patient Medication Summary Completed 09/08/2016 Appointment: Angelica Cuba WPtel: [facility] (30 min) Complex 08/19/2016 Visit Plan: [...] plavix 08/11/2016 Appointment: Marylu Ochoa WPtel: [phone] (15 min) Moderate 08/11/2016 Patient Education: [...] or concerns. 07/03/2016 Appointment: Angelica Cuba WPtel: [facility] (30 min) Complex 07/03/2016 Patient Education: Patient Medication Summary Completed 07/03/2016 Care Plan: Referral Order SNOMED-CT : [id number] Pending 07/03/2016 Visit Plan: Chronic Pain Syndrome - pt has chronic pain - has been maintained on current medications, has not sought out other medications , only uses PRN pain medications as directed, and understands the consequences of over-medication. 06/19/2016 Appointment: Donna Walden WPtel: [phone] [phone] (30 min) Complex 06/19/2016 Patient Education: Patient Medication Summary Completed 06/19/2016 Appointment: Donna Walden WPtel: [phone] [phone] (30 min) Complex 06/05/2016 Visit Plan: Chronic Pain Syndrome - pt has chronic pain - has been maintained on current medications, has not sought out other medications , only uses PRN pain medications as directed, and understands the consequences of over-medication. Mild cognitive impairment-discussed with Dr Arnulfo tam 02/04/2016 Appointment: Donna Walden WPtel: [phone] [phone] (30 min) Complex 02/04/2016 Patient Education: Patient Medication Summary Completed 02/04/2016 Appointment: Donna Walden WPtel: [phone] [phone] (30 min) Complex 01/14/2016 Visit Plan: Chronic [...] testing. 01/07/2016 Appointment: Donna Walden WPtel: [phone] [phone] (15 min) Moderate 01/07/2016 Patient Education: Patient Medication Summary Completed 01/07/2016 Visit Plan: Chronic Pain Syndrome - pt has chronic pain - has been maintained on current medications, has not sought out other medications , only uses PRN pain medications as directed, and understands the consequences of over-medication. Headaches-memory loss-schedule MRI brain Hyperlipidemia- check fasting labs Vqmeeczwoj-qmbuii-bi change in medications at this time 12/17/2015 Patient Education: Patient Medication Summary Completed 12/17/2015 Appointment: Donna Walden WPtel: [phone] [phone] (30 min) Complex 12/13/2015 Visit Plan: Chronic [...] current medications. 10/16/2015 Appointment: [facility]el[phone] (30 min) Complex 10/16/2015 Patient Education: [...] pain symptoms. 06/07/2015 Appointment: Marylu Ochoa WPtel: [address] [place] [address] (15 min) Moderate 06/07/2015 Patient Education: Patient [...] shoes - discussed inserts and referral to go cart mechanic-patient wants to wait but will let us [...] pain symptoms. 10/16/2014 Appointment: Marylu [facility]choa WPtel: [facility] [place] ([place] New Patient 10/16/2014 Patient Education: [...] make a follow up appointment with her analytical technician - The patient has been counseled to [...] supportive shoes -discussed inserts and referral to go cart mechanic-patient wants to wait but will let us [...] Headaches-memory loss-schedule MRI brain Hyperlipidemia-check fasting labs Rdhvzhsxwa-gsftbi-ef change in medications at this time call [...] patient - she is to schedule in [place] . Chronic Pain Syndrome - pt has [...] 90 day supply of Aricept through [facility] Add 50 mg Losartan daily for hypertension [...] 90 day supply of Aricept through [facility] Add 50 mg Losartan daily for hypertension [...] about referring her to Dr. Dexter grullon [place] (neurologist) . Anxiety - the patient has [...] make a follow up appointment with her analytical technician - The patient has been counseled to [...] cognitive impairment-discussed with Dr Ochoa-Namenda starter pack . Chronic Pain Syndrome - pt has chronic pain - has been maintained on current medications, has not sought out other medications, only uses PRN pain medications as directed, and understands the consequences of over- medication.
--- OUTSIDE RECORDS SUMMARY | 2018-09-20 05:31 | XMS REPORT | CCD ---
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 [employer] Name Role Phone PP Unavailable CCM Unavailable Summary Purpose Interface Exchange Insurance Providers Payer name Policy type / Coverage type Covered libertarian ID Effective Begin Date Effective End Date WPS Medicare Part B Medicare Part B [id number] 2015 Unknown [facility] Medicare Part B [id number] 2015 Unknown Family history Mother Diagnosis Age [...] Unknown Retired 10/16/[address]: 034455300 Never smoker 10/16/[address]: 518885633 Never drinks alcohol 10/16/2014 Allergies, Adverse Reactions, Alerts Substance Reaction Codes Entered Date Inactivated Date Status Penicillin Unknown 10/16/2014 No Inactive Date Active Past Medical History Illness Codes Condition Status Onset Date Resolved Date Dementia in other diseases classified elsewhere without behavioral disturbance ICD-9: 294.10 ICD-10: F02.80 Active 10/28/2017 Unknown Encounter for immunization ICD-9: V04.81 ICD-10: Z23 Active 03/25/2015 Unknown Generalized anxiety disorder ICD-9: 300.00 ICD-10: F41.1 Active 03/18/2017 Unknown Major depressive disorder, recurrent, mild ICD-9: 296.31 ICD-10: F33.0 Active 01/06/2016 Unknown Other allergic rhinitis ICD-9: 477.8 ICD-10: J30.89 Active 12/29/2017 Unknown Other insomnia ICD-9: 327.09 ICD-10: G47.09 [...] Problems Condition Codes Effective Dates Condition Status Dementia in other diseases classified elsewhere without behavioral disturbance ICD-9: 294.10 ICD-10: F02.80 10/28/2017 Active Encounter for immunization ICD-9: V04.81 ICD-10: Z23 03/25/2015 Active Generalized anxiety disorder ICD-9: 300.00 ICD-10: F41.1 03/18/2017 Active Major depressive disorder, recurrent, mild ICD-9: 296.31 ICD-10: F33.0 01/06/2016 Active Other allergic rhinitis ICD-9: 477.8 ICD-10: J30.89 12/29/2017 Active Other insomnia ICD-9: 327.09 ICD-10: G47.09 [...] hydrocodone 10 mg-acetaminophen 325 mg tablet RxNorm: 725382 1 Tablet(s) PO Q6 as needed 07/29/2018 08/27/2018 Active hydrocodone 10 mg-acetaminophen 325 mg tablet RxNorm: 971818 1 Tablet(s) PO Q6 as needed 07/07/2018 07/28/2018 Inactive hydrocodone 10 mg-acetaminophen 325 mg tablet RxNorm: 521034 1 Tablet(s) PO Q6 as needed 06/08/2018 07/06/2018 Inactive Cymbalta 30 mg capsule,delayed release RxNorm: 807244 1 CAPSULE(S) PO DAILY 05/07/2018 11/02/2018 Active hydrocodone 10 mg-acetaminophen 325 mg tablet RxNorm: 986336 1 Tablet(s) PO Q6 as needed may fill on 03-27-18 04/28/201802/2019 Inactive diazepam 5 mg tablet RxNorm: 675251 1/2 Tablet(s) PO QHS as needed 04/13/2018 06/11/2018 Inactive hydrocodone 10 mg-acetaminophen 325 mg tablet RxNorm: 829219 1 Tablet(s) PO Q6 as needed may fill on 03-27-18 03/22/201808/2017 Inactive Aricept 10 mg tablet RxNorm: 804311 1 TABLET(S) PO DAILY 201707/12/2018 Inactive hydrocodone 10 mg-acetaminophen 325 mg tablet RxNorm: 986605 1 Tablet(s) PO Q6 as needed 02/26/2018 03/21/2018 Inactive diazepam 5 mg tablet RxNorm: 175569 1/2 Tablet(s) PO QHS as needed 02/22/2018 03/22/2018 Inactive hydrocodone 10 mg-acetaminophen 325 mg tablet RxNorm: 847494 1 Tablet(s) PO Q6 as needed 02/05/2018 02/25/2018 Inactive levetiracetam 500 mg tablet RxNorm: 984801 1 TABLET(S) PO BID 01/07/2018 04/06/2018 Inactive pt to finish out supply of liquid then start on tablets hydrocodone 10 mg-acetaminophen 325 mg tablet RxNorm: 536015 1 Tablet(s) PO Q6 as needed 12/29/2017 01/27/2018 Inactive hydrocodone 10 mg-acetaminophen 325 mg tablet RxNorm: 246160 1 Tablet(s) PO Q6 as needed 12/10/2017 12/28/2017 Inactive Zyrtec 10 mg tablet RxNorm: 6235554 1 Tablet(s) PO QAM for allergies 10/28/2017 05/25/2018 Inactive Zantac 75 mg tablet RxNorm: 599969 1 Tablet(s) PO BID 201702/24/2018 Inactive Aricept 10 mg tablet RxNorm: 191691 1 TABLET(S) PO DAILY 201702/23/2018 Inactive Cymbalta 30 mg capsule,delayed release RxNorm: 567958 1 Capsule(s) PO daily 10/22/2017 05/06/2018 Inactive hydrocodone 10 mg-acetaminophen 325 mg tablet RxNorm: 593315 1 Tablet(s) PO Q6 as needed 10/20/2017 11/18/2017 Inactive Voltaren 1 % topical gel RxNorm: 115604 4 Gram(s) TOP TID as needed for pain as needed 09/23/2017 09/17/2018 Active levetiracetam 500 mg tablet RxNorm: 885972 1 TABLET(S) PO BID 09/21/2017 10/20/2017 Inactive pt to finish out supply of liquid then start on tablets hydrocodone 10 mg-acetaminophen 325 mg tablet RxNorm: 603552 1 Tablet(s) PO Q6 as needed 08/27/2017 09/25/2017 Inactive Aricept 10 mg tablet RxNorm: 055926 1 Tablet(s) PO daily 201709/16/2017 Inactive Aricept 10 mg tablet RxNorm: 186566 1 Tablet(s) PO daily 201708/17/2017 Inactive hydrocodone 10 mg-acetaminophen 325 mg tablet RxNorm: 920819 1 Tablet(s) PO Q6 as needed 07/28/2017 08/26/2017 Inactive Zithromax Z-Myles 250 mg tablet RxNorm: 414663 1 Tablet(s) PO UD 06/25/2017 09/20/2017 Inactive hydrocodone 10 mg-acetaminophen 325 mg tablet RxNorm: 423236 1 Tablet(s) PO Q6 as needed 06/17/2017 07/16/2017 Inactive Namenda XR 28 mg capsule sprinkle,extended release RxNorm: 107028 1 Capsule(s) PO daily 05/08/2017 05/02/2018 Inactive Aricept 10 mg tablet RxNorm: 517080 1 Tablet(s) PO daily 201608/05/2017 Inactive hydrocodone 10 mg-acetaminophen 325 mg tablet RxNorm: 241924 1 Tablet(s) PO Q6 as needed 05/05/2017 06/03/2017 Inactive hydrocodone 10 mg-acetaminophen 325 mg tablet RxNorm: 033624 1 Tablet(s) PO Q6 as needed 04/06/2017 05/04/2017 Inactive diazepam 2 mg tablet RxNorm: 582153 1/2 - 1 Tablet(s) PO BID as needed 03/18/2017 09/20/2017 Inactive Cymbalta 30 mg capsule,delayed release RxNorm: 916106 1 Capsule(s) PO daily 03/09/2017 10/04/2017 Inactive levetiracetam 500 mg tablet RxNorm: 353057 1 Tablet(s) PO BID 03/09/2017 08/05/2017 Inactive pt to finish out supply of liquid then start on tablets Aricept 5 mg tablet RxNorm: 545002 1 Tablet(s) PO daily 201605/07/2017 Inactive pantoprazole 40 mg tablet,delayed release RxNorm: 364709 1 Tablet(s) PO daily 03/09/2017 07/06/2017 Inactive hydrocodone 10 mg-acetaminophen 325 mg tablet RxNorm: 059913 1 Tablet(s) PO Q6 as needed 12/04/2016 03/08/2017 Inactive hydrocodone 10 mg-acetaminophen 325 mg tablet RxNorm: 464317 1 Tablet(s) PO Q6 as needed 11/06/2016 12/03/2016 Inactive hydrocodone 10 mg-acetaminophen 325 mg tablet RxNorm: 052577 1 Tablet(s) PO Q6 as needed 10/08/2016 11/05/2016 Inactive Voltaren 1 % topical gel RxNorm: 486649 4 Gram(s) TOP TID as needed for pain as needed 09/25/2016 09/19/2017 Inactive hydrocodone 10 mg-acetaminophen 325 mg tablet RxNorm: 263556 1 Tablet(s) PO Q6 as needed 09/09/2016 10/07/2016 Inactive Voltaren 1 % topical gel RxNorm: 120185 1 Application TOP TID 09/08/2016 09/24/2016 Inactive Aricept 5 mg tablet RxNorm: 323336 1 Tablet(s) PO daily 201612/06/2016 Inactive Cymbalta 30 mg capsule,delayed release RxNorm: 056176 1 Capsule(s) PO daily 09/08/2016 12/06/2016 Inactive losartan 50 mg tablet RxNorm: 708801 1 Tablet(s) PO daily 201610/07/2016 Inactive clopidogrel 75 mg tablet RxNorm: 015030 75 MG PO DAILY 201609/20/2017 Inactive hydrocodone 10 mg-acetaminophen 325 mg tablet RxNorm: 894708 1 Tablet(s) PO Q6 as needed 08/15/2016 09/08/2016 Inactive hydrocodone 10 mg-acetaminophen 325 mg tablet RxNorm: 568330 1 Tablet(s) PO Q6 as needed 07/18/2016 08/14/2016 Inactive Cymbalta 30 mg capsule,delayed release RxNorm: 127147 1 Capsule(s) PO daily 07/03/2016 09/07/2016 Inactive Aricept 5 mg tablet RxNorm: 461702 1 Tablet(s) PO daily 201608/01/2016 Inactive Namenda XR 28 mg capsule sprinkle,extended release RxNorm: 554682 1 Capsule(s) PO daily 07/03/2016 05/07/2017 Inactive diazepam 5 mg tablet RxNorm: 413155 Tablet(s) PO daily as needed TAKE 1/2 TO 1 TABLET BY MOUTH DAILY NEEDED FOR ANXIETY 06/25/2016 03/06/2017 Inactive hydrocodone 10 mg-acetaminophen 325 mg tablet RxNorm: 981430 1 Tablet(s) PO Q6 as needed 06/19/2016 07/17/2016 Inactive Namenda XR 28 mg capsule sprinkle,extended release RxNorm: 488278 1 Capsule(s) PO daily 06/19/2016 07/02/2016 Inactive gabapentin 100 mg capsule RxNorm: 487906 1 Capsule(s) PO TID 03/08/2017 Inactive hydrocodone 10 mg-acetaminophen 325 mg tablet RxNorm: 253251 1 Tablet(s) PO Q6 as needed 05/27/2016 06/18/2016 Inactive diazepam 5 mg tablet RxNorm: 529528 Tablet(s) TAKE 1/2 TO 1 TABLET BY MOUTH DAILY NEEDED FOR ANXIETY 05/15/20162016 Inactive hydrocodone 10 mg-acetaminophen 325 mg tablet RxNorm: 126708 1 Tablet(s) PO Q6 as needed 04/29/2016 05/26/2016 Inactive omeprazole 40 mg capsule,delayed release RxNorm: 377398 Capsule(s) 1 CAPSULE(S) PO DAILY 04/28/2016 03/08/2017 Inactive diazepam 5 mg tablet RxNorm: 541768 Tablet(s) TAKE 1/2 TO 1 TABLET BY MOUTH DAILY NEEDED FOR ANXIETY 04/14/20162017 Inactive hydrocodone 10 mg-acetaminophen 325 mg tablet RxNorm: 830649 1 Tablet(s) PO Q6 as needed 04/01/2016 04/28/2016 Inactive Namenda XR 28 mg capsule sprinkle,extended release RxNorm: 954748 1 Capsule(s) PO daily 03/13/2016 06/18/2016 Inactive Namenda XR 28 mg capsule sprinkle,extended release RxNorm: 580841 1 Capsule(s) PO daily 03/12/2016 03/12/2016 Inactive diazepam 5 mg tablet RxNorm: 091712 Tablet(s) TAKE 1/2 TO 1 TABLET BY MOUTH DAILY NEEDED FOR ANXIETY 02/25/20162017 Inactive Namenda XR 28 mg capsule sprinkle,extended release RxNorm: 645904 1 Capsule(s) PO daily 02/04/2016 03/11/2016 Inactive hydrocodone 10 mg-acetaminophen 325 mg tablet RxNorm: 703241 1 Tablet(s) PO Q6 as needed 02/04/2016 03/04/2016 Inactive omeprazole 40 mg capsule,delayed release RxNorm: 125005 1 CAPSULE(S) PO DAILY 01/23/2016 04/27/2016 Inactive [SAVINGS FOR NON-COVERED DRUGS -- BIN:[id number], PCN: [id number], Group: XXXXX, ID# [id number], Questions: . THIS IS NOT INSURANCE.] sertraline 50 mg tablet RxNorm: 440895 TAKE 1 1/2 TABLET BY MOUTH ONCE DAILY 01/10/2016 03/08/2017 Inactive hydrocodone 10 mg-acetaminophen 325 mg tablet RxNorm: 302711 1 Tablet(s) PO Q6 as needed 01/07/2016 02/03/2016 Inactive diazepam 5 mg tablet RxNorm: 173607 Tablet(s) TAKE 1/2 TO 1 TABLET BY MOUTH DAILY NEEDED FOR ANXIETY 12/17/20152017 Inactive hydrocodone 10 mg-acetaminophen 325 mg tablet RxNorm: 817184 1 Tablet(s) PO Q6 as needed 12/10/2015 01/06/2016 Inactive gabapentin 100 mg capsule RxNorm: 460990 1 Capsule(s) PO TID 03/11/2016 Inactive gabapentin 100 mg capsule RxNorm: 605817 1 Capsule(s) PO TID 11/12/2015 Inactive hydrocodone 10 mg-acetaminophen 325 mg tablet RxNorm: 491170 1 Tablet(s) PO Q6 as needed 11/12/2015 12/09/2015 Inactive hydrocodone 10 mg-acetaminophen 325 mg tablet RxNorm: 327147 1 Tablet(s) PO Q6 as needed 10/16/2015 11/11/2015 Inactive hydrocodone 10 mg-acetaminophen 325 mg tablet RxNorm: 458502 1 Tablet(s) PO Q6 as needed 09/17/2015 10/15/2015 Inactive hydrocodone 10 mg-acetaminophen 325 mg tablet RxNorm: 152603 1 Tablet(s) PO Q6 as needed 08/16/2015 09/16/2015 Inactive diazepam 5 mg tablet RxNorm: 725614 Tablet(s) TAKE 1/2 TO 1 TABLET BY MOUTH DAILY NEEDED FOR ANXIETY 07/30/20152015 Inactive diazepam 5 mg tablet RxNorm: 543185 Tablet(s) TAKE 1/2 TO 1 TABLET BY MOUTH DAILY NEEDED FOR ANXIETY 07/27/20152015 Inactive hydrocodone 10 mg-acetaminophen 325 mg tablet RxNorm: 648611 1 Tablet(s) PO Q6 as needed 07/19/2015 08/15/2015 Inactive omeprazole 40 mg capsule,delayed release RxNorm: 052565 1 CAPSULE(S) PO DAILY 07/19/2015 01/14/2016 Inactive [SAVINGS FOR NON-COVERED DRUGS -- BIN:[id number], PCN: [id number], Group: XXXXX, ID# [id number], Questions: . THIS IS NOT INSURANCE.] hydrocodone 10 mg-acetaminophen 325 mg tablet RxNorm: 921175 1 Tablet(s) PO Q6 as needed 06/20/2015 07/18/2015 Inactive baclofen 10 mg tablet RxNorm: 488282 1 Tablet(s) PO TID 201506/07/2015 Inactive baclofen 10 mg tablet RxNorm: 495696 1 Tablet(s) PO TID 201507/07/2015 Inactive diazepam 5 mg tablet RxNorm: 358800 TAKE 1/2 TO 1 TABLET BY MOUTH DAILY NEEDED FOR ANXIETY 05/29/2015 04/12/2018 Inactive sertraline 50 mg tablet RxNorm: 281472 1.5 Tablet(s) PO daily 05/02/2015 10/28/2015 Inactive sertraline 50 mg tablet RxNorm: 622835 1.5 Tablet(s) PO daily 05/01/2015 05/01/2015 Inactive patient to call when needed diazepam 5 mg tablet RxNorm: 412761 1/2-1 Tablet(s) PO QDAY PRN 05/01/2015 05/29/2015 Inactive hydrocodone 10 mg-acetaminophen 325 mg tablet RxNorm: 899125 1 Tablet(s) PO Q6 as needed 04/23/2015 06/19/2015 Inactive hydrocodone 10 mg-acetaminophen 325 mg tablet RxNorm: 971944 1 Tablet(s) PO Q6 as needed 03/26/2015 04/22/2015 Inactive hydrocodone 10 mg-acetaminophen 325 mg tablet RxNorm: 131548 1 Tablet(s) PO Q6 as needed 02/26/2015 03/25/2015 Inactive Lyrica 50 mg capsule RxNorm: 075777 1 Capsule(s) PO TID 201402/03/2016 Inactive Lyrica 50 mg capsule RxNorm: 718948 1 Capsule(s) PO TID 201402/05/2015 Inactive Fish Oil [place] 3-6-9 300 mg-1,000 mg capsule,delayed release RxNorm: 1 Capsule(s) PO BID 01/30/2015 08/10/2016 Inactive diazepam 5 mg tablet RxNorm: 104121 1 Tablet(s) PO Q8 as needed 01/30/2015 04/30/2015 Inactive hydrocodone 10 mg-acetaminophen 325 mg tablet RxNorm: 368324 1 Tablet(s) PO Q6 as needed 01/19/2015 02/25/2015 Inactive sertraline 50 mg tablet RxNorm: 799573 1 Tablet(s) PO daily 04/30/2015 Inactive hydrocodone 10 mg-acetaminophen 325 mg tablet RxNorm: 154585 1 Tablet(s) PO Q6 as needed 12/12/2014 01/18/2015 Inactive hydrocodone 10 mg-acetaminophen 325 mg tablet RxNorm: 077344 1 Tablet(s) PO Q6 as needed 11/09/2014 12/11/2014 Inactive diazepam 5 mg tablet RxNorm: 907095 1 Tablet(s) PO Q8 as needed 11/01/2014 01/29/2015 Inactive omeprazole 40 mg capsule,delayed release RxNorm: 436359 1 Capsule(s) PO daily 10/02/2014 04/30/2015 Inactive [SAVINGS FOR NON-COVERED DRUGS -- BIN:[id number], PCN: ASPROD1, Group: XXXXX, ID# [id number], Questions: . THIS IS NOT INSURANCE.] omeprazole 40 mg capsule,delayed release RxNorm: 733742 1 Capsule(s) PO daily 10/02/2014 10/01/2014 Inactive melatonin 3 mg tablet RxNorm: 779662 1 Tablet(s) PO QHS No Start Date Active Vitamin D3 oral RxNorm : 2418 oral No Start Date Active diclofenac sodium 75 mg tablet,delayed release RxNorm: 896831 2 Tablet(s) PO daily No Start Date 04/30/2015 Inactive diazepam 5 mg tablet RxNorm: 347255 1 Tablet(s) PO TID No Start Date 10/31/2014 Inactive Multi Vitamin oral RxNorm: oral No Start Date 03/08/2017 Inactive Flonase nasal RxNorm: 92616 nasal No Start Date 03/08/2017 Inactive gabapentin 100 mg tablet RxNorm: 315784 1 Tablet(s) PO TID No Start Date 02/06/2015 Inactive hydrocodone 10 mg-acetaminophen 325 mg tablet RxNorm: 645525 1 Tablet(s) PO QID No Start Date 11/08/2014 Inactive Zithromax Z-Myles 250 mg tablet RxNorm: 790380 1 Tablet(s) PO UD No Start Date 06/24/2017 Inactive clopidogrel 75 mg tablet RxNorm: 104019 1 Tablet(s) PO daily No Start Date 09/03/2016 Inactive atorvastatin 40 mg tablet RxNorm: 119974 1 Tablet(s) PO daily No Start Date 09/20/2017 Inactive sertraline 50 mg tablet RxNorm: 673237 1 Tablet(s) PO daily No Start Date 01/04/2015 Inactive Medication Administered No Medication Administered data Immunizations Vaccine Codes Date Status Influenza CVX: 141 02/22/2018 completed Influenza CVX: 141 03/18/2017 completed Influenza CVX: 141 06/16/2016 completed Influenza CVX: 141 03/26/2015 completed Influenza CVX: 141 02/15/2014 completed Assessments Condition Codes Effective Dates Major depressive disorder, recurrent, mild ICD-10: F33.0 ICD-9: 296.31 05/05/2018 Generalized anxiety disorder ICD-10: F41.1 ICD-9: 300.00 05/05/2018 Dementia in other diseases classified elsewhere without behavioral disturbance ICD-10: F02.80 ICD-9: 294.10 05/05/2018 Other insomnia ICD-10: G47.09 ICD-9: 327.09 02/22/2018 Encounter for immunization ICD-10: Z23 ICD-9: V04.81 02/22/2018 Other allergic rhinitis ICD-10: J30.89 ICD-9: 477.8 12/29/2017 Pain in unspecified joint ICD-10: M25.50 ICD-9: [...] Visit Effective Dates Notes medication follow up 05/05/2018 insomnia 02/22/2018 food [...] Item Item Code Result Date Comp Metabolic Xlj662 NA 141 mEq/L 05/06/2018 Comp Metabolic Pjb785 K 4.0 mEq/L 05/06/2018 Comp Metabolic Zqg926 CL 105 mEq/L 05/06/2018 Comp Metabolic Nhb374 CO2 29.0 mEq/L 05/06/2018 Comp Metabolic Llc401 ANION GAP 11 05/06/2018 Comp Metabolic Cmf189 GLUCOSE 103 mg/dL 05/06/2018 Comp Metabolic Okh868 Creat 0.8 mg/dL 05/06/2018 Comp Metabolic Ljo500 eGFR 80 ml/min/1.73m2 05/06/2018 Comp Metabolic Ktf932 BUN 23 mg/dL 05/06/2018 Comp Metabolic Apf990 B/C Ratio 30.3 Ratio 05/06/2018 Comp Metabolic Jdo919 CALCIUM 9.2 mg/dL 05/06/2018 Comp Metabolic Zah419 ALK PHOS 65 U/L 05/06/2018 Comp Metabolic Zaj701 AST(SGOT) 18 U/L 05/06/2018 Comp Metabolic Dhr413 ALT(SGPT) 15 U/L 05/06/2018 Comp Metabolic Vot164 BILI T 0.5 mg/dL 05/06/2018 Comp Metabolic Nky185 ALBUMIN 4.4 g/dL 05/06/2018 Comp Metabolic Nzw551 TPRO 6.4 g/dL 05/06/2018 Comp Metabolic Vcn907 GLOB 2.0 g/dL 05/06/2018 Comp Metabolic Ddo654 A/G Ratio 2.2 Ratio 05/06/2018 Comp Metabolic Vxl408 Osmo 285 mOsmo 05/06/2018 Cbc With Differential [...] 31.0 pg 05/05/2018 Cbc With Differential Ord2 Nance% 7.4 % 05/05/2018 Cbc With Differential Ord2 [...] 2.60 K/ul 05/05/2018 Cbc With Differential Ord2 Nance ABS# 0.7 K/ul 05/05/2018 Cbc With Differential Ord2 Eos ABS# 0.1 K/ul 05/05/2018 Cbc With Differential Ord2 Baso ABS# 0.0 K/ul 05/05/2018 C-Reactive Protein Qnt Crqnt CRP 0.1 mg/dl 11/04/2017 Sed Rate Ord21 ESR 2 mm/hr 11/04/2017 Comp Metabolic Lur406 NA 143 mEq/L 08/28/2017 Comp Metabolic Ntj705 K 4.2 mEq/L 08/28/2017 Comp Metabolic Sjp138 CL 108 mEq/L 08/28/2017 Comp Metabolic Xay021 CO2 28.0 mEq/L 08/28/2017 Comp Metabolic Wry729 ANION GAP 11 08/28/2017 Comp Metabolic Qta851 GLUCOSE 89 mg/dL 08/28/2017 Comp Metabolic Hfg624 Creat 0.8 mg/dL 08/28/2017 Comp Metabolic Gzf971 eGFR 78 ml/min/1.73m2 08/28/2017 Comp Metabolic Qis052 BUN 19 mg/dL 08/28/2017 Comp Metabolic Lig693 B/C Ratio 24.4 Ratio 08/28/2017 Comp Metabolic Wtz581 CALCIUM 8.4 mg/dL 08/28/2017 Comp Metabolic Dvv925 ALK PHOS 52 U/L 08/28/2017 Comp Metabolic Jev132 AST(SGOT) 20 U/L 08/28/2017 Comp Metabolic Def534 ALT(SGPT) 14 U/L 08/28/2017 Comp Metabolic Ouk016 BILI T 0.5 mg/dL 08/28/2017 Comp Metabolic Mvx536 ALBUMIN 4.0 g/dL 08/28/2017 Comp Metabolic Gwy206 TPRO 5.9 g/dL 08/28/2017 Comp Metabolic Uvq482 GLOB 1.9 g/dL 08/28/2017 Comp Metabolic Ddm004 A/G Ratio 2.1 Ratio 08/28/2017 Comp Metabolic Yyd532 Osmo 287 mOsmo 08/28/2017 Cbc With Differential [...] 30.9 pg 08/28/2017 Cbc With Differential Ord2 Nance% 5.9 % 08/28/2017 Cbc With Differential Ord2 [...] 2.28 K/ul 08/28/2017 Cbc With Differential Ord2 Nance ABS# 0.4 K/ul 08/28/2017 Cbc With Differential [...] 31.7 pg 03/09/2017 Cbc With Differential Ord2 Nance% 6.1 % 03/09/2017 Cbc With Differential Ord2 [...] 1.78 K/ul 03/09/2017 Cbc With Differential Ord2 Nance ABS# 0.4 K/ul 03/09/2017 Cbc With Differential Ord2 Eos ABS# 0.1 K/ul 03/09/2017 Cbc With Differential Ord2 Baso ABS# 0.0 K/ul 03/09/2017 Tsh Ord6 hTSH II 0.87 uIU/mL 03/09/2017 %Hba1C Hnp132 % HbA1c 71436-3 4.9 % 03/09/2017 %Hba1C Ipl778 Gluc Ave 94 mg/dL 03/09/2017 Comp Metabolic Srn314 NA 141 mEq/L 03/09/2017 Comp Metabolic Bvo668 K 3.8 mEq/L 03/09/2017 Comp Metabolic Yng459 CL 105 mEq/L 03/09/2017 Comp Metabolic Uro886 CO2 29.0 mEq/L 03/09/2017 Comp Metabolic Mwi702 ANION GAP 11 03/09/2017 Comp Metabolic Jdx362 GLUCOSE 98 mg/dL 03/09/2017 Comp Metabolic Upc785 Creat 0.7 mg/dL 03/09/2017 Comp Metabolic Sru023 eGFR 93 ml/min/1.73m2 03/09/2017 Comp Metabolic Ffs707 BUN 11 mg/dL 03/09/2017 Comp Metabolic Dwt507 B/C Ratio 16.4 Ratio 03/09/2017 Comp Metabolic Rci090 CALCIUM 9.5 mg/dL 03/09/2017 Comp Metabolic Xqp061 ALK PHOS 90 U/L 03/09/2017 Comp Metabolic Zup719 AST(SGOT) 21 U/L 03/09/2017 Comp Metabolic Xqq745 ALT(SGPT) 15 U/L 03/09/2017 Comp Metabolic Szl784 BILI T 0.6 mg/dL 03/09/2017 Comp Metabolic Ymo994 ALBUMIN 4.5 g/dL 03/09/2017 Comp Metabolic Frc819 TPRO 6.4 g/dL 03/09/2017 Comp Metabolic Xjg825 GLOB 1.9 g/dL 03/09/2017 Comp Metabolic Cpw366 A/G Ratio 2.3 Ratio 03/09/2017 Comp Metabolic Bar835 Osmo 281 mOsmo 03/09/2017 Comp Metabolic Ctu318 NA 142 mEq/L 09/03/2016 Comp Metabolic Zih860 K 3.9 mEq/L 09/03/2016 Comp Metabolic Uyp228 CL 107 mEq/L 09/03/2016 Comp Metabolic Hul045 CO2 26.0 mEq/L 09/03/2016 Comp Metabolic Ush543 ANION GAP 13 09/03/2016 Comp Metabolic Xyy812 GLUCOSE 107 mg/dL 09/03/2016 Comp Metabolic Fzi104 Creat 0.7 mg/dL 09/03/2016 Comp Metabolic Gvc612 eGFR 85 ml/min/1.73m2 09/03/2016 Comp Metabolic Mgz907 BUN 16 mg/dL 09/03/2016 Comp Metabolic Dui761 B/C Ratio 21.9 Ratio 09/03/2016 Comp Metabolic Zdy551 CALCIUM 8.8 mg/dL 09/03/2016 Comp Metabolic Lhj088 ALK PHOS 51 U/L 09/03/2016 Comp Metabolic Tke495 AST(SGOT) 24 U/L 09/03/2016 Comp Metabolic Ynu531 ALT(SGPT) 20 U/L 09/03/2016 Comp Metabolic Ygb022 BILI T 0.7 mg/dL 09/03/2016 Comp Metabolic Peo743 ALBUMIN 4.1 g/dL 09/03/2016 Comp Metabolic Gkw599 TPRO 6.1 g/dL 09/03/2016 Comp Metabolic Jdf808 GLOB 2.0 g/dL 09/03/2016 Comp Metabolic Yeo246 A/G Ratio 2.1 Ratio 09/03/2016 Comp Metabolic Mci076 Osmo 285 mOsmo 09/03/2016 Cbc With Differential [...] 30.3 pg 09/03/2016 Cbc With Differential Ord2 Nance% 6.5 % 09/03/2016 Cbc With Differential Ord2 [...] 1.53 K/ul 09/03/2016 Cbc With Differential Ord2 Nance ABS# 0.4 K/ul 09/03/2016 Cbc With Differential [...] Ord15 CALCIUM 9.1 mg/dL 12/21/2015 Comp Metabolic Dbe799 NA 138 mEq/L 07/06/2015 Comp Metabolic Ywi305 K 3.9 mEq/L 07/06/2015 Comp Metabolic Sma345 CL 103 mEq/L 07/06/2015 Comp Metabolic Trz276 CO2 28.0 mEq/L 07/06/2015 Comp Metabolic Wbo697 ANION GAP 11 07/06/2015 Comp Metabolic Mhw561 GLUCOSE 114 mg/dL 07/06/2015 Comp Metabolic Sln961 Creat 0.7 mg/dL 07/06/2015 Comp Metabolic Yvj003 eGFR 97 ml/min/1.73m2 07/06/2015 Comp Metabolic Hzi848 BUN 11 mg/dL 07/06/2015 Comp Metabolic Hvp688 B/C Ratio 16.9 Ratio 07/06/2015 Comp Metabolic Mzf753 CALCIUM 9.1 mg/dL 07/06/2015 Comp Metabolic Ajq911 ALK PHOS 57 U/L 07/06/2015 Comp Metabolic Tps010 AST(SGOT) 26 U/L 07/06/2015 Comp Metabolic Vou579 ALT(SGPT) 17 U/L 07/06/2015 Comp Metabolic Lfh277 BILI T 0.6 mg/dL 07/06/2015 Comp Metabolic Gmw601 ALBUMIN 4.6 g/dL 07/06/2015 Comp Metabolic Xtc180 TPRO 6.7 g/dL 07/06/2015 Comp Metabolic Xta557 GLOB 2.1 g/dL 07/06/2015 Comp Metabolic Uyu982 A/G Ratio 2.2 Ratio 07/06/2015 Comp Metabolic Dli435 Osmo 276 mOsmo 07/06/2015 Lipid Ord30 CHOL 228 mg/dL 07/06/2015 Lipid Ord30 HDL 48.0 mg/dl 07/06/2015 Lipid Ord30 TRIG 176 mg/dL 07/06/2015 Lipid Ord30 LDL 145 mg/dL 07/06/2015 Lipid Ord30 C/HDL 4.8 Ratio 07/06/2015 Tsh Ord6 hTSH II 0.74 uIU/mL 05/01/2015 Comp Metabolic Jjx350 NA 141 mEq/L 05/01/2015 Comp Metabolic Myz731 K 4.0 mEq/L 05/01/2015 Comp Metabolic Qdy194 CL 106 mEq/L 05/01/2015 Comp Metabolic Amr539 CO2 26.0 mEq/L 05/01/2015 Comp Metabolic Dgf397 ANION GAP 13 05/01/2015 Comp Metabolic Uol382 GLUCOSE 124 mg/dL 05/01/2015 Comp Metabolic Gvb552 Creat 0.8 mg/dL 05/01/2015 Comp Metabolic Slc318 eGFR 79 ml/min/1.73m2 05/01/2015 Comp Metabolic Ufn843 BUN 13 mg/dL 05/01/2015 Comp Metabolic Fyz997 B/C Ratio 16.7 Ratio 05/01/2015 Comp Metabolic Yfh886 CALCIUM 9.3 mg/dL 05/01/2015 Comp Metabolic Aid518 ALK PHOS 54 U/L 05/01/2015 Comp Metabolic Spu293 AST(SGOT) 21 U/L 05/01/2015 Comp Metabolic Qip202 ALT(SGPT) 14 U/L 05/01/2015 Comp Metabolic Xyt877 BILI T 0.5 mg/dL 05/01/2015 Comp Metabolic Ibc816 ALBUMIN 4.5 g/dL 05/01/2015 Comp Metabolic Syz740 TPRO 6.4 g/dL 05/01/2015 Comp Metabolic Lrz523 GLOB 1.9 g/dL 05/01/2015 Comp Metabolic Fpz778 A/G Ratio 2.4 Ratio 05/01/2015 Comp Metabolic Jul703 Osmo 283 mOsmo 05/01/2015 Cbc With Differential [...] Differential Ord2 RDW 16.8 % 05/01/2015 %Hba1C Cnp566 % HbA1c 63382-4 5.4 % 01/29/2015 %Hba1C Tcd540 Gluc Ave 108 mg/dL 01/29/2015 Lipid Ord30 CHOL 221 mg/dL 01/26/2015 Lipid Ord30 HDL 37.0 mg/dl 01/26/2015 Lipid Ord30 TRIG 274 mg/dL 01/26/2015 Lipid Ord30 LDL 129 mg/dL 01/26/2015 Lipid Ord30 C/HDL 6.0 Ratio 01/26/2015 Tsh Ord6 hTSH II 0.85 uIU/mL 01/26/2015 Comp Metabolic Bva609 NA 137 mEq/L 01/26/2015 Comp Metabolic Ign664 K 4.0 mEq/L 01/26/2015 Comp Metabolic Hfr067 CL 104 mEq/L 01/26/2015 Comp Metabolic Ifx755 CO2 27.0 mEq/L 01/26/2015 Comp Metabolic Lxy807 ANION GAP 10 01/26/2015 Comp Metabolic Jmq498 GLUCOSE 131 mg/dL 01/26/2015 Comp Metabolic Faw640 Creat 0.8 mg/dL 01/26/2015 Comp Metabolic Vtg215 eGFR 77 ml/min/1.73m2 01/26/2015 Comp Metabolic Ptg829 BUN 16 mg/dL 01/26/2015 Comp Metabolic Vxx383 B/C Ratio 20.0 Ratio 01/26/2015 Comp Metabolic Npk792 CALCIUM 9.1 mg/dL 01/26/2015 Comp Metabolic Usj007 ALK PHOS 66 U/L 01/26/2015 Comp Metabolic Qbj339 AST(SGOT) 24 U/L 01/26/2015 Comp Metabolic Mgq517 ALT(SGPT) 20 U/L 01/26/2015 Comp Metabolic Yhu087 BILI T 0.4 mg/dL 01/26/2015 Comp Metabolic Dym717 ALBUMIN 4.2 g/dL 01/26/2015 Comp Metabolic Qbb157 TPRO 6.4 g/dL 01/26/2015 Comp Metabolic Zch199 GLOB 2.2 g/dL 01/26/2015 Comp Metabolic Wvw759 A/G Ratio 1.9 Ratio 01/26/2015 Comp Metabolic Zwm507 Osmo 277 mOsmo 01/26/2015 Cbc With Differential [...] Differential Ord2 RDW 15.5 % 01/26/2015 B12 Wmw711 B12 669.00 pg/ml 01/26/2015 Review of Systems System Result Effective Dates Constitutional No recent illness 2017 Constitutional No [...] clear 12/29/2017 None Full Exam - General 1995 Ears/Nose/Throat lips/teeth/gingiva Overall: benign lips 12/29/2017 None [...] slow 10/28/2017 None Full Exam - General 1995 Constitutional general appearance Overall: well developed 09/23/2017 None Full Exam - General 1995 Constitutional general appearance Overall: well nourished 09/23/2017 None Full Exam - General 1995 Eyes conjunctiva /eyelids Overall: conjunctiva clear 09/23/2017 None Full Exam - General 1995 Eyes conjunctiva /eyelids Overall: cornea clear 09/23/2017 [...] time 05/01/2015 None Full Exam - General 1995 Psychiatric mood and affect Overall: normal mood [...] NO PRSV 4 BLANCA 3 YRS+ CPT-4: 20710 02/22/2018 ADMIN INFLUENZA VIRUS VAC CPT-4: G0008 03/18/2017 FLU VACC PRSV FREE INC ANTIG CPT-4: 93018 03/18/2017 INITIAL PREVENTIVE EXAM CPT-4: G0402 07/06/2015 IIV4 FLU VACC NO PRESERV ID Formatting Model/CDA Sections, Assigned to SNOMED CT: 29966479 CPT-4: 95088Ikwtebh 03/26/2015 IMMUNIZATION ADMIN CPT -4: 31870 03/26/2015 Vital Signs Date Vital 05/05/2018 Blood Pressure 1: 120/80 Code : 8480-6 BMI: 29.1 Code : 61846-9 Heart Rate 1 : 76 bpm Height: 5'1" SpO2: 97% Weight: 154 lbs 02/22/2018 Blood Pressure 1: 140/70 Code : 8480-6 BMI: 26.3 Code : 67214-5 Heart Rate 1 : 60 bpm Height: 5'1" SpO2: 97% Weight: 139 lbs 12/29/2017 Blood Pressure 1: 110/58 Code : 8480-6 BMI: 23.8 Code : 56864-9 Heart Rate 1 : 56 bpm Height: 5'1" SpO2: 98% Weight: 126 lbs 10/28/2017 Blood Pressure 1: 96/68 Code : 8480-6 BMI: 21.7 Code : 90589-9 Heart Rate 1 : 68 bpm Height: 5'1" SpO2: 98% Weight: 115 lbs 09/23/2017 Blood Pressure 1: 134/72 Code : 8480-6 BMI: 22.5 Code : 27662-2 Heart Rate 1 : 72 bpm Height: 5'1" SpO2: 97% Weight: 119 lbs 03/18/2017 Blood Pressure 1: 140/72 Code : 8480-6 BMI: 21.5 Code : 51554-0 Heart Rate 1 : 64 bpm Height: 5'1" SpO2: 96% Weight: 114 lbs 03/09/2017 Blood Pressure 1: 120/72 Code : 8480-6 BMI: 21.5 Code : 34874-1 Heart Rate 1 : 75 bpm Height: 5'1" SpO2: 97% Weight: 114 lbs 12/09/2016 Blood Pressure 1: 130/76 Code : 8480-6 BMI: 23.8 Code : 89644-3 Heart Rate 1 : 68 bpm Height: 5'1" SpO2: 98% Weight: 126 lbs 09/08/2016 Blood Pressure 1: 162/80 Code : 8480-6 Blood Pressure 2: 145/90 Code: 8480-6 BMI: 24.7 Code: 71376-8 Heart Rate 1: 77 bpm Height: 5'1" SpO2: 97% Weight: 130 lbs 8 oz 08/11/2016 Blood Pressure 1: 130/80 Code : 8480-6 BMI: 25.9 Code : 66212-6 Heart Rate 1 : 62 bpm Height: 5'1" SpO2: 97% Weight: 137 lbs 07/03/2016 Blood Pressure 1: 134/74 Code : 8480-6 BMI: 26.8 Code : 97994-6 Heart Rate 1 : 74 bpm Height: 5'1" SpO2: 97% Weight: 142 lbs 06/19/2016 Blood Pressure 1: 118/66 Code : 8480-6 Heart Rate 1: 72 bpm SpO2: 96% Weight: 142 lbs 02/04/2016 Blood Pressure 1: 130/80 Code : 8480-6 BMI: 27.2 Code : 01529-2 Heart Rate 1 : 76 bpm Height: 5'1" SpO2: 96% Weight: 144 lbs 01/07/2016 Blood Pressure 1: 136/64 Code : 8480-6 BMI: 27.6 Code : 14241-7 Heart Rate 1 : 73 bpm Height: 5'1" SpO2: 987% Weight: 146 lbs 12/17/2015 Blood Pressure 1: 128/86 Code : 8480-6 BMI: 27.0 Code : 88519-5 Heart Rate 1 : 59 bpm Height: 5'1" SpO2: 96% Weight: 143 lbs 10/16/2015 Blood Pressure 1: 122/78 Code : 8480-6 BMI: 25.7 Code : 27155-0 Heart Rate 1 : 71 bpm Height: 5'1" SpO2: 96% Weight: 136 lbs 08/16/2015 Blood Pressure 1: 138/88 Code : 8480-6 BMI: 27.0 Code : 00572-8 Heart Rate 1 : 75 bpm Height: 5'1" SpO2: 98% Weight: 143 lbs 07/06/2015 Blood Pressure 1: 120/72 Code : 8480-6 BMI: 26.5 Code : 56903-7 Heart Rate 1 : 72 bpm Height: 5'1" SpO2: 96% Weight: 140 lbs 06/07/2015 Blood Pressure 1: 152/86 Code : 8480-6 BMI: 26.1 Code : 08756-9 Heart Rate 1 : 88 bpm Height: 5'1" SpO2: 97% Weight: 138 lbs 05/01/2015 Blood Pressure 1: 120/80 Code : 8480-6 BMI: 27.0 Code : 87098-6 Heart Rate 1 : 82 bpm Height: 5'1" SpO2: 98% Temperature: 36.7 (C) / 98.0 (F) Weight: 143 lbs 03/26/2015 Blood Pressure 1: 140/80 Code : 8480-6 BMI: 28.0 Code : 27977-0 Heart Rate 1 : 69 bpm Height: 5'1" SpO2: 96% Weight: 148 lbs 03/13/2015 Blood Pressure 1: 128/70 Code : 8480-6 BMI: 28.2 Code : 68899-6 Heart Rate 1 : 76 bpm Height: 5'1" Weight: 149 lbs 01/30/2015 Blood Pressure 1: 142/68 Code : 8480-6 BMI: 28.7 Code : 13459-2 Heart Rate 1 : 86 bpm Height: 5'1" SpO2: 96% Weight: 152 lbs 10/16/2014 Blood Pressure 1: 160/88 Code : 8480-6 BMI: 28.2 Code : 69062-0 Heart Rate 1 : 66 bpm Height: 5'1" Weight: 149 lbs Functional Status No Functional Status data History of Present Illness Symptom Name Status Result Effective Date Notes Additional Comments medication use 05/05/2018 None Location [...] data Encounters Encounter Performer Location Codes Date 10684 EST. PATIENT, LEVEL III Diagnosis: Dementia in other diseases classified elsewhere without behavioral disturbance[ICD10: F02.80] Diagnosis: Major depressive disorder, recurrent, mild[ICD10: F33.0] Diagnosis: Generalized anxiety disorder[ICD10: F41.1] Angelica Ochoa MD, [facility] CPT-4: 74628 05/05/2018 [id number] EST. PATIENT, LEVEL III Diagnosis: Other insomnia[ICD10: G47.09] Diagnosis: Dementia in other diseases classified elsewhere without behavioral disturbance[ICD10: F02.80] Diagnosis: Encounter for immunization[ICD10: Z23] Angelica Ochoa MD, [facility] CPT-4: 49379 02/22/2018 59618 EST. PATIENT, LEVEL IV Diagnosis: Dementia in other diseases classified elsewhere without behavioral disturbance[ICD10: F02.80] Diagnosis: Major depressive disorder, recurrent, mild[ICD10: F33.0] Diagnosis: Other allergic rhinitis[ICD10: J30.89] Angelica Ochoa MD, [facility] CPT-4: 43762 12/29/2017 ([id number]) 03791 EST. PATIENT, LEVEL IV Diagnosis: Dementia in other diseases classified elsewhere without behavioral disturbance[ICD10: F02.80] Diagnosis: Major depressive disorder, recurrent, mild[ICD10: F33.0] Diagnosis: Allergy to other foods[ICD10: Z91.018] Marylu Ochoa MD, [facility] CPT-4: 00692 10/28/2017 99107 EST. 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 PATIENT, LEVEL IV Diagnosis: Essential (primary) hypertension[ICD10: I10] Diagnosis: Major depressive disorder, recurrent, moderate[ICD10: F33.1] Diagnosis: Underweight[ICD10: R63.6] Diagnosis: Localization-related (focal) (partial) symptomatic epilepsy and epileptic syndromes with simple partial seizures, not intractable, without status epilepticus[ICD10: G40.109] Marylu Ochoa MD, [facility] CPT-4: 69343 03/09/2017 ([id number]) 97406 EST. PATIENT, LEVEL IV Diagnosis: Mixed hyperlipidemia[ICD10: E78.2] Diagnosis: Chronic pain syndrome[ICD10: G89.4] Diagnosis: Major depressive disorder, recurrent, mild[ICD10: F33.0] Marylu Ochoa MD, [facility] CPT-4: 05824 12/09/2016 ([id number]) 70492 EST. PATIENT, LEVEL IV Diagnosis: Essential (primary) hypertension[ICD10: I10] Diagnosis: Low back pain[ICD10: M54.5] Diagnosis: Personal history of transient ischemic attack (TIA), and cerebral infarction without residual deficits[ICD10: Z86.73] Diagnosis: Major depressive disorder, recurrent, moderate[ICD10: F33.1] Diagnosis: Other sleep apnea[ICD10: G47.39] Marylu Ochoa MD, [facility] CPT-4: 15855 09/08/2016 ([id number]) 51495 EST. 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 PATIENT, LEVEL III Diagnosis: Chronic pain syndrome[ICD10: G89.4] Diagnosis: Low back pain[ICD10: M54.5] Diagnosis: Major depressive disorder, recurrent, mild[ICD10: F33.0] Diagnosis: Mild cognitive impairment, so stated[ICD10: G31.84] Angelica Ochoa MD, [facility] CPT-4: 82749 07/03/2016 ([id number]) 24585 EST. PATIENT, LEVEL III Diagnosis: Chronic pain syndrome[ICD10: G89.4] Donna Ochoa MD, [facility] CPT-4: 97738 06/19/2016 ([id number]) 37815 EST. PATIENT, LEVEL IV Diagnosis: Chronic pain syndrome[ICD10: G89.4] Diagnosis: Mild cognitive impairment, so stated[ICD10: G31.84] Donna Ochoa MD [facility] CPT-4: 31603 02/04/2016 ([id number]) 85900 EST. PATIENT, LEVEL IV Diagnosis: Chronic pain syndrome[ICD10: G89.4] Diagnosis: Mild cognitive impairment, so stated[ICD10: G31.84] Diagnosis: Major depressive disorder, recurrent, mild[ICD10: F33.0] Donna Ochoa MD , [facility] CPT-4: 59568 01/07/2016 ([id number]) 81078 EST. PATIENT, LEVEL IV Diagnosis: Chronic pain syndrome[ICD10: G89.4] Diagnosis: Headache[ICD10: R51] Diagnosis: Major depressive disorder, recurrent, mild[ICD10: F33.0] Diagnosis: Mixed hyperlipidemia[ICD10: E78.2] Donna Ochoa MD, [facility] CPT-4: 53268 12/17/2015 ([id number]) 59067 EST. PATIENT, LEVEL III Diagnosis: Chronic pain syndrome[ICD10: G89.4] Diagnosis: Major depressive disorder, recurrent, mild[ICD10: F33.0] Donna Ochoa MD [facility] CPT-4: 04797 10/16/2015 ([id number]) 36597 EST. PATIENT, LEVEL III Diagnosis: Low back pain[ICD10: M54.5] Donna Ochoa MD, [facility] CPT-4: 00919 08/16/2015 ([id number]) 28882 EST. 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 PATIENT, LEVEL IV Diagnosis: Major depressive disorder, recurrent, mild[ICD10: F33.0] Diagnosis: Chronic pain syndrome[ICD10: G89.4] Diagnosis: Other fatigue[ICD10: R53.83] Donna Ochoa MD, [facility] CPT-4: 10500 05/01/2015 ([id number]) 50356 EST. PATIENT, LEVEL II Diagnosis: Plantar fascial fibromatosis[ICD10: M72.2] Donna Ochoa MD, [facility] CPT-4: 46142 03/26/2015 ([id number]) 87598 EST. PATIENT, LEVEL III Diagnosis: Plantar fascial fibromatosis[ICD10: M72.2] Donna Ochoa MD, [facility] CPT-4: 75623 03/13/2015 ([id number]) 85522 EST. PATIENT, LEVEL III Diagnosis: Hyperlipidemia[ICD9: 272.4] Diagnosis: ALLERGIC RHINITIS[ICD9: 477.9] Diagnosis: Chronic pain syndrome[ICD9: 338.4] Donna Ochoa MD, [facility] CPT-4: 92486 01/30/2015 ([id number]) OFFICE VISIT, NEW - LEVEL 4 Diagnosis: ESOPHAGEAL REFLUX[ICD9: 530.81] Diagnosis: Peripheral neuropathy[ICD9: 356.9] Diagnosis: Chronic pain syndrome[ICD9: 338.4] Diagnosis: OSTEOARTH NOS-UNSPEC[ICD9: 715.90] Diagnosis: DEPRESSIVE DISORDER NEC[ICD9: 311] Marylu Ochoa MD, [facility] CPT-4: 43585 10/16/2014 Plan of Care Planned Activity Notes Codes Status Date Visit Plan: Anxiety - the patient has [...] treatment. 05/05/2018 Appointment: [facility] [place] [phone] ([facility] Complex 05/05/2018 Patient Education: Patient Medication Summary Completed 05/05/2018 Patient Education: Depression Completed 05/05/2018 Appointment: Angel[facility] [place] [phone] (15 min) Moderate 03/24/2018 Visit Plan: Insomnia [...] of treatment. 02/22/2018 Appointment: Angel[facility] [place] [phone] (15 min) Moderate 02/22/2018 Appointment: Angel[facility] [place] [phone] (15 min) Moderate 02/22/2018 Patient Education: Patient Medication Summary Completed 02/22/2018 Appointment: Angel[facility] [place] [phone] (15 min) Moderate 02/18/2018 Visit Plan: Dementia [...] Completed 12/29/2017 Appointment: Angelica Cuba WPtel: [phone] [facility] (15 min) Moderate 12/23/2017 Patient Education: Patient [...] of adalgisa. 10/28/2017 Appointment: Marylu Ochoa WPtel: [phone] [facility] (15 min) Moderate 10/28/2017 Patient Education: Patient [...] make a follow up appointment with her television tube inspector - The patient has been counseled to [...] acute concerns. 09/23/2017 Appointment: Angelica Cuba WPtel: [phone] [facility] (30 min) Complex 09/23/2017 Patient Education: Patient Medication Summary Completed 09/23/2017 [facility]ment: [phone] ([facility] min) Moderate 08/26/2017 Appointment: Angel[facility] [place] [facility]el[phone] ([place] min) Complex 06/30/2017 Referral: External, Ordering Provider Referral Initiated 05/27/2017 Care Plan: Referral Order SNOMED-CT : [id number] Pending 04/20/2017 Visit Plan: Anxiety - the [...] make a follow up appointment with her television tube inspector - The patient has been counseled to [...] home. 03/09/2017 Appointment: Marylu Ochoa WPtel: [phone] [facility] (30 min) Complex 03/09/2017 Patient Education: Patient Medication Summary Completed 03/09/2017 Appointment: Donna Walden [facility]el[phone] [phone] [place] (30 min) Complex 03/06/2017 Appointment: [phone] ([facility] min) Moderate 01/08/2017 Visit Plan: Hyperlipidemia [...] Education: Patient Medication Summary Completed 12/09/2016 Appointment: J[phone] ([facility] min) Moderate 11/11/2016 Appointment: Bereket Angelica [facility]Ptel[phone] ([place] min) Complex 10/09/2016 Visit Plan: Hypertension [...] - 90 day supply of Aricept through [facility], refill namenda 09/08/2016 Visit Plan: Hypertension [...] - 90 day supply of Aricept through [facility], refill namejamilaa Suspected sleep disordered breathing with episodes of nocturnal fits of not breathing correctly - pt advised of need for an overnight oxygen study to be done to see if there is nocturnal hypoxemia contributing to her memory loss, htn. 09/08/2016 Appointment: Marylu Ochoa WPtel: [phone] [facility] (15 min) Moderate 09/08/2016 Patient Education: Patient Medication Summary Completed 09/08/2016 Appointment: Angelica Cuba WPtel: [phone] [facility] (30 min) Complex 08/19/2016 Visit Plan: Hyperlipidemia [...] plavix 08/11/2016 Appointment: Marylu Ochoa WPtel: [phone] [facility] (15 min) Moderate 08/11/2016 Patient Education: [...] concerns. 07/03/2016 Appointment: Angelica Cuba WPtel: [phone] [facility] (30 min) Complex 07/03/2016 Patient Education: Patient Medication Summary Completed 07/03/2016 Care Plan: Referral Order SNOMED-CT : [id number] Pending 07/03/2016 Visit Plan: Chronic Pain Syndrome - pt has chronic pain - has been maintained on current medications, has not sought out other medications , only uses PRN pain medications as directed, and understands the consequences of over-medication. 06/19/2016 Appointment: Donna Walden WPtel: [phone] (30 min) Complex 06/19/2016 Patient Education: Patient Medication Summary Completed 06/19/2016 Appointment: Donna Walden WPtel: [facility] [address] (30 min) Complex 06/05/2016 Visit Plan: Chronic Pain Syndrome - pt has chronic pain - has been maintained on current medications, has not sought out other medications , only uses PRN pain medications as directed, and understands the consequences of over-medication. Mild cognitive impairment-discussed with Dr Arnulfo tam 02/04/2016 Appointment: Donna Walden WPtel: [phone] [facility] [place] [address] (30 min) Complex 02/04/2016 Patient Education: Patient Medication Summary Completed 02/04/2016 Appointment: Donna Walden WPtel: [facility] [address] (30 min) Complex 01/14/2016 Visit Plan: [...] of testing. 01/07/2016 Appointment: Donna Walden WPtel: [facility] [address] (15 min) Moderate 01/07/2016 Patient Education: Patient Medication Summary Completed 01/07/2016 Visit Plan: Chronic Pain Syndrome - pt has chronic pain - has been maintained on current medications, has not sought out other medications , only uses PRN pain medications as directed, and understands the consequences of over-medication. Headaches-memory loss-schedule MRI brain Hyperlipidemia- check fasting labs Inegtacdet-caoizn-vu change in medications at this time 12/17/2015 Patient Education: Patient Medication Summary Completed 12/17/2015 Appointment: Donna Walden WPtel: [facility] [address] (30 min) Complex 12/13/2015 Visit Plan: [...] current medications. 10/16/2015 Appointment: Donna Walden WPtel: [facility] [address] (30 min) Complex 10/16/2015 Patient Education: [...] pain symptoms. 06/07/2015 Appointment: Marylu Ochoa WPtel: [address] [place], [place] [address] (15 min) Moderate 06/07/2015 Patient Education: Patient [...] shoes - discussed inserts and referral to grab operator-patient wants to wait but will let us [...] pain symptoms. 10/16/2014 Appointment: [facility]el: [phone] [place] ([place] New Patient 10/16/2014 Patient Education: [...] make a follow up appointment with her television tube inspector - The patient has been counseled to [...] supportive shoes -discussed inserts and referral to grab operator-patient wants to wait but will let us [...] Headaches-memory loss-schedule MRI brain Hyperlipidemia-check fasting labs Tecukrvyvv-hsuoia-nf change in medications at this time call [...] patient - she is to schedule in [place] . Chronic Pain Syndrome - pt has [...] 90 day supply of Aricept through [facility] Add 50 mg Losartan daily for hypertension [...] 90 day supply of Aricept through [facility] Add 50 mg Losartan daily for hypertension [...] about referring her to Dr. Dexter grullon Buckley (neurologist) . Anxiety - the patient [...] make a follow up appointment with her television tube inspector - The patient has been counseled to [...]
--- OUTSIDE RECORDS SUMMARY | 2018-09-20 05:35 | XMS REPORT | CCD ---
Author Author Marylu Ochoa Organization Marylu Ochoa MD, [facility] Address [address] [place] [address] Phone Care Team Providers Care Computer Network Specialist Name Role Phone PP Unavailable CCM Unavailable Summary Purpose Interface Exchange Insurance Providers Payer name Policy type / Coverage type Covered alliance party ID Effective Begin Date Effective End Date WPS Medicare Part B Medicare Part B [id number] 2015 Unknown [facility] Medicare Part B [id number] 2015 Unknown Family history Mother Diagnosis Age [...] Unknown Retired 10/16/[address]: 310591331 Never smoker 10/16/[address]: 497859643 Never drinks alcohol 10/16/2014 Allergies, Adverse Reactions, [...] hydrocodone 10 mg-acetaminophen 325 mg tablet RxNorm: 123034 1 Tablet(s) PO Q6 as needed 07/07/2018 08/05/2018 Active hydrocodone 10 mg-acetaminophen 325 mg tablet RxNorm: 973757 1 Tablet(s) PO Q6 as needed 06/08/2018 07/06/2018 Inactive Cymbalta 30 mg capsule,delayed release RxNorm: 312069 1 CAPSULE(S) PO DAILY 05/07/2018 11/02/2018 Active hydrocodone 10 mg-acetaminophen 325 mg tablet RxNorm: 479616 1 Tablet(s) PO Q6 as needed may fill on 03-27-18 04/28/201802/2019 Inactive diazepam 5 mg tablet RxNorm: 328377 1/2 Tablet(s) PO QHS as needed 04/13/2018 06/11/2018 Inactive hydrocodone 10 mg-acetaminophen 325 mg tablet RxNorm: 489875 1 Tablet(s) PO Q6 as needed may fill on 03-27-18 03/22/201808/2017 Inactive Aricept 10 mg tablet RxNorm: 546967 1 TABLET(S) PO DAILY 201707/12/2018 Active hydrocodone 10 mg-acetaminophen 325 mg tablet RxNorm: 267118 1 Tablet(s) PO Q6 as needed 02/26/2018 03/21/2018 Inactive diazepam 5 mg tablet RxNorm: 381106 1/2 Tablet(s) PO QHS as needed 02/22/2018 03/22/2018 Inactive hydrocodone 10 mg-acetaminophen 325 mg tablet RxNorm: 783913 1 Tablet(s) PO Q6 as needed 02/05/2018 02/25/2018 Inactive levetiracetam 500 mg tablet RxNorm: 907054 1 TABLET(S) PO BID 01/07/2018 04/06/2018 Inactive pt to finish out supply of liquid then start on tablets hydrocodone 10 mg-acetaminophen 325 mg tablet RxNorm: 054616 1 Tablet(s) PO Q6 as needed 12/29/2017 01/27/2018 Inactive hydrocodone 10 mg-acetaminophen 325 mg tablet RxNorm: 242710 1 Tablet(s) PO Q6 as needed 12/10/2017 12/28/2017 Inactive Zyrtec 10 mg tablet RxNorm: 9953864 1 Tablet(s) PO QAM for allergies 10/28/2017 05/25/2018 Inactive Zantac 75 mg tablet RxNorm: 098166 1 Tablet(s) PO BID 201702/24/2018 Inactive Aricept 10 mg tablet RxNorm: 057049 1 TABLET(S) PO DAILY 201702/23/2018 Inactive Cymbalta 30 mg capsule,delayed release RxNorm: 828252 1 Capsule(s) PO daily 10/22/2017 05/06/2018 Inactive hydrocodone 10 mg-acetaminophen 325 mg tablet RxNorm: 903450 1 Tablet(s) PO Q6 as needed 10/20/2017 11/18/2017 Inactive Voltaren 1 % topical gel RxNorm: 162991 4 Gram(s) TOP TID as needed for pain as needed 09/23/2017 09/17/2018 Active levetiracetam 500 mg tablet RxNorm: 948810 1 TABLET(S) PO BID 09/21/2017 10/20/2017 Inactive pt to finish out supply of liquid then start on tablets hydrocodone 10 mg-acetaminophen 325 mg tablet RxNorm: 773817 1 Tablet(s) PO Q6 as needed 08/27/2017 09/25/2017 Inactive Aricept 10 mg tablet RxNorm: 658552 1 Tablet(s) PO daily 201709/16/2017 Inactive Aricept 10 mg tablet RxNorm: 542262 1 Tablet(s) PO daily 201708/17/2017 Inactive hydrocodone 10 mg-acetaminophen 325 mg tablet RxNorm: 937217 1 Tablet(s) PO Q6 as needed 07/28/2017 08/26/2017 Inactive Zithromax Z-Myles 250 mg tablet RxNorm: 721435 1 Tablet(s) PO UD 06/25/2017 09/20/2017 Inactive hydrocodone 10 mg-acetaminophen 325 mg tablet RxNorm: 403411 1 Tablet(s) PO Q6 as needed 06/17/2017 07/16/2017 Inactive Namenda XR 28 mg capsule sprinkle,extended release RxNorm: 789044 1 Capsule(s) PO daily 05/08/2017 05/02/2018 Inactive Aricept 10 mg tablet RxNorm: 679589 1 Tablet(s) PO daily 201608/05/2017 Inactive hydrocodone 10 mg-acetaminophen 325 mg tablet RxNorm: 625249 1 Tablet(s) PO Q6 as needed 05/05/2017 06/03/2017 Inactive hydrocodone 10 mg-acetaminophen 325 mg tablet RxNorm: 263113 1 Tablet(s) PO Q6 as needed 04/06/2017 05/04/2017 Inactive diazepam 2 mg tablet RxNorm: 921994 1/2 - 1 Tablet(s) PO BID as needed 03/18/2017 09/20/2017 Inactive Cymbalta 30 mg capsule,delayed release RxNorm: 287218 1 Capsule(s) PO daily 03/09/2017 10/04/2017 Inactive levetiracetam 500 mg tablet RxNorm: 673281 1 Tablet(s) PO BID 03/09/2017 08/05/2017 Inactive pt to finish out supply of liquid then start on tablets Aricept 5 mg tablet RxNorm: 617563 1 Tablet(s) PO daily 201605/07/2017 Inactive pantoprazole 40 mg tablet,delayed release RxNorm: 948468 1 Tablet(s) PO daily 03/09/2017 07/06/2017 Inactive hydrocodone 10 mg-acetaminophen 325 mg tablet RxNorm: 605376 1 Tablet(s) PO Q6 as needed 12/04/2016 03/08/2017 Inactive hydrocodone 10 mg-acetaminophen 325 mg tablet RxNorm: 416376 1 Tablet(s) PO Q6 as needed 11/06/2016 12/03/2016 Inactive hydrocodone 10 mg-acetaminophen 325 mg tablet RxNorm: 661658 1 Tablet(s) PO Q6 as needed 10/08/2016 11/05/2016 Inactive Voltaren 1 % topical gel RxNorm: 348993 4 Gram(s) TOP TID as needed for pain as needed 09/25/2016 09/19/2017 Inactive hydrocodone 10 mg-acetaminophen 325 mg tablet RxNorm: 272917 1 Tablet(s) PO Q6 as needed 09/09/2016 10/07/2016 Inactive Voltaren 1 % topical gel RxNorm: 010262 1 Application TOP TID 09/08/2016 09/24/2016 Inactive Aricept 5 mg tablet RxNorm: 797619 1 Tablet(s) PO daily 201612/06/2016 Inactive Cymbalta 30 mg capsule,delayed release RxNorm: 209437 1 Capsule(s) PO daily 09/08/2016 12/06/2016 Inactive losartan 50 mg tablet RxNorm: 247510 1 Tablet(s) PO daily 201610/07/2016 Inactive clopidogrel 75 mg tablet RxNorm: 706167 75 MG PO DAILY 201609/20/2017 Inactive hydrocodone 10 mg-acetaminophen 325 mg tablet RxNorm: 634814 1 Tablet(s) PO Q6 as needed 08/15/2016 09/08/2016 Inactive hydrocodone 10 mg-acetaminophen 325 mg tablet RxNorm: 552471 1 Tablet(s) PO Q6 as needed 07/18/2016 08/14/2016 Inactive Cymbalta 30 mg capsule,delayed release RxNorm: 866735 1 Capsule(s) PO daily 07/03/2016 09/07/2016 Inactive Aricept 5 mg tablet RxNorm: 195546 1 Tablet(s) PO daily 201608/01/2016 Inactive Namenda XR 28 mg capsule sprinkle,extended release RxNorm: 716532 1 Capsule(s) PO daily 07/03/2016 05/07/2017 Inactive diazepam 5 mg tablet RxNorm: 591141 Tablet(s) PO daily as needed TAKE 1/2 TO 1 TABLET BY MOUTH DAILY NEEDED FOR ANXIETY 06/25/2016 03/06/2017 Inactive hydrocodone 10 mg-acetaminophen 325 mg tablet RxNorm: 024659 1 Tablet(s) PO Q6 as needed 06/19/2016 07/17/2016 Inactive Namenda XR 28 mg capsule sprinkle,extended release RxNorm: 909829 1 Capsule(s) PO daily 06/19/2016 07/02/2016 Inactive gabapentin 100 mg capsule RxNorm: 346001 1 Capsule(s) PO TID 03/08/2017 Inactive hydrocodone 10 mg-acetaminophen 325 mg tablet RxNorm: 665348 1 Tablet(s) PO Q6 as needed 05/27/2016 06/18/2016 Inactive diazepam 5 mg tablet RxNorm: 251886 Tablet(s) TAKE 1/2 TO 1 TABLET BY MOUTH DAILY NEEDED FOR ANXIETY 05/15/20162016 Inactive hydrocodone 10 mg-acetaminophen 325 mg tablet RxNorm: 441020 1 Tablet(s) PO Q6 as needed 04/29/2016 05/26/2016 Inactive omeprazole 40 mg capsule,delayed release RxNorm: 439791 Capsule(s) 1 CAPSULE(S) PO DAILY 04/28/2016 03/08/2017 Inactive diazepam 5 mg tablet RxNorm: 084916 Tablet(s) TAKE 1/2 TO 1 TABLET BY MOUTH DAILY NEEDED FOR ANXIETY 04/14/20162017 Inactive hydrocodone 10 mg-acetaminophen 325 mg tablet RxNorm: 303065 1 Tablet(s) PO Q6 as needed 04/01/2016 04/28/2016 Inactive Namenda XR 28 mg capsule sprinkle,extended release RxNorm: 688561 1 Capsule(s) PO daily 03/13/2016 06/18/2016 Inactive Namenda XR 28 mg capsule sprinkle,extended release RxNorm: 282553 1 Capsule(s) PO daily 03/12/2016 03/12/2016 Inactive diazepam 5 mg tablet RxNorm: 046679 Tablet(s) TAKE 1/2 TO 1 TABLET BY MOUTH DAILY NEEDED FOR ANXIETY 02/25/20162017 Inactive Namenda XR 28 mg capsule sprinkle,extended release RxNorm: 630398 1 Capsule(s) PO daily 02/04/2016 03/11/2016 Inactive hydrocodone 10 mg-acetaminophen 325 mg tablet RxNorm: 852761 1 Tablet(s) PO Q6 as needed 02/04/2016 03/04/2016 Inactive omeprazole 40 mg capsule,delayed release RxNorm: 634779 1 CAPSULE(S) PO DAILY 01/23/2016 04/27/2016 Inactive [SAVINGS FOR NON-COVERED DRUGS -- BIN:[id number], PCN: [id number], Group: XXXXX, ID# XXXXXXX, Questions: . THIS IS NOT INSURANCE.] sertraline 50 mg tablet RxNorm: 132409 TAKE 1 1/2 TABLET BY MOUTH ONCE DAILY 01/10/2016 03/08/2017 Inactive hydrocodone 10 mg-acetaminophen 325 mg tablet RxNorm: 263035 1 Tablet(s) PO Q6 as needed 01/07/2016 02/03/2016 Inactive diazepam 5 mg tablet RxNorm: 434580 Tablet(s) TAKE 1/2 TO 1 TABLET BY MOUTH DAILY NEEDED FOR ANXIETY 12/17/20152017 Inactive hydrocodone 10 mg-acetaminophen 325 mg tablet RxNorm: 796198 1 Tablet(s) PO Q6 as needed 12/10/2015 01/06/2016 Inactive gabapentin 100 mg capsule RxNorm: 993174 1 Capsule(s) PO TID 03/11/2016 Inactive gabapentin 100 mg capsule RxNorm: 819225 1 Capsule(s) PO TID 11/12/2015 Inactive hydrocodone 10 mg-acetaminophen 325 mg tablet RxNorm: 562495 1 Tablet(s) PO Q6 as needed 11/12/2015 12/09/2015 Inactive hydrocodone 10 mg-acetaminophen 325 mg tablet RxNorm: 748944 1 Tablet(s) PO Q6 as needed 10/16/2015 11/11/2015 Inactive hydrocodone 10 mg-acetaminophen 325 mg tablet RxNorm: 728154 1 Tablet(s) PO Q6 as needed 09/17/2015 10/15/2015 Inactive hydrocodone 10 mg-acetaminophen 325 mg tablet RxNorm: 264409 1 Tablet(s) PO Q6 as needed 08/16/2015 09/16/2015 Inactive diazepam 5 mg tablet RxNorm: 140965 Tablet(s) TAKE 1/2 TO 1 TABLET BY MOUTH DAILY NEEDED FOR ANXIETY 07/30/20152015 Inactive diazepam 5 mg tablet RxNorm: 449204 Tablet(s) TAKE 1/2 TO 1 TABLET BY MOUTH DAILY NEEDED FOR ANXIETY 07/27/20152015 Inactive hydrocodone 10 mg-acetaminophen 325 mg tablet RxNorm: 408920 1 Tablet(s) PO Q6 as needed 07/19/2015 08/15/2015 Inactive omeprazole 40 mg capsule,delayed release RxNorm: 975113 1 CAPSULE(S) PO DAILY 07/19/2015 01/14/2016 Inactive [SAVINGS FOR NON-COVERED DRUGS -- BIN:[id number], PCN: [id number], Group: XXXXX, ID# [id number], Questions: . THIS IS NOT INSURANCE.] hydrocodone 10 mg-acetaminophen 325 mg tablet RxNorm: 269055 1 Tablet(s) PO Q6 as needed 06/20/2015 07/18/2015 Inactive baclofen 10 mg tablet RxNorm: 411334 1 Tablet(s) PO TID 201506/07/2015 Inactive baclofen 10 mg tablet RxNorm: 162917 1 Tablet(s) PO TID 201507/07/2015 Inactive diazepam 5 mg tablet RxNorm: 352357 TAKE 1/2 TO 1 TABLET BY MOUTH DAILY NEEDED FOR ANXIETY 05/29/2015 04/12/2018 Inactive sertraline 50 mg tablet RxNorm: 168825 1.5 Tablet(s) PO daily 05/02/2015 10/28/2015 Inactive sertraline 50 mg tablet RxNorm: 306042 1.5 Tablet(s) PO daily 05/01/2015 05/01/2015 Inactive patient to call when needed diazepam 5 mg tablet RxNorm: 643228 1/2-1 Tablet(s) PO QDAY PRN 05/01/2015 05/29/2015 Inactive hydrocodone 10 mg-acetaminophen 325 mg tablet RxNorm: 275054 1 Tablet(s) PO Q6 as needed 04/23/2015 06/19/2015 Inactive hydrocodone 10 mg-acetaminophen 325 mg tablet RxNorm: 333562 1 Tablet(s) PO Q6 as needed 03/26/2015 04/22/2015 Inactive hydrocodone 10 mg-acetaminophen 325 mg tablet RxNorm: 092533 1 Tablet(s) PO Q6 as needed 02/26/2015 03/25/2015 Inactive Lyrica 50 mg capsule RxNorm: 514688 1 Capsule(s) PO TID 201402/03/2016 Inactive Lyrica 50 mg capsule RxNorm: 517773 1 Capsule(s) PO TID 201402/05/2015 Inactive Fish Oil [place] 3-6-9 300 mg-1,000 mg capsule,delayed release RxNorm: 1 Capsule(s) PO BID 01/30/2015 08/10/2016 Inactive diazepam 5 mg tablet RxNorm: 399951 1 Tablet(s) PO Q8 as needed 01/30/2015 04/30/2015 Inactive hydrocodone 10 mg-acetaminophen 325 mg tablet RxNorm: 415314 1 Tablet(s) PO Q6 as needed 01/19/2015 02/25/2015 Inactive sertraline 50 mg tablet RxNorm: 956292 1 Tablet(s) PO daily 04/30/2015 Inactive hydrocodone 10 mg-acetaminophen 325 mg tablet RxNorm: 071159 1 Tablet(s) PO Q6 as needed 12/12/2014 01/18/2015 Inactive hydrocodone 10 mg-acetaminophen 325 mg tablet RxNorm: 434427 1 Tablet(s) PO Q6 as needed 11/09/2014 12/11/2014 Inactive diazepam 5 mg tablet RxNorm: 073371 1 Tablet(s) PO Q8 as needed 11/01/2014 01/29/2015 Inactive omeprazole 40 mg capsule,delayed release RxNorm: 20020626 1 Capsule(s) PO daily 10/02/2014 04/30/2015 Inactive [SAVINGS FOR NON-COVERED DRUGS -- BIN:199500, PCN: ASPROD1, Group: XXXXX, ID# [id number], Questions: . THIS IS NOT INSURANCE.] omeprazole 40 mg capsule,delayed release RxNorm: 938189 1 Capsule(s) PO daily 10/02/2014 10/01/2014 Inactive melatonin 3 mg tablet RxNorm: 508884 1 Tablet(s) PO QHS No Start Date Active Vitamin D3 oral RxNorm : 2418 oral No Start Date Active diclofenac sodium 75 mg tablet,delayed release RxNorm: 238923 2 Tablet(s) PO daily No Start Date 04/30/2015 Inactive diazepam 5 mg tablet RxNorm: 140922 1 Tablet(s) PO TID No Start Date 10/31/2014 Inactive Multi Vitamin oral RxNorm: oral No Start Date 03/08/2017 Inactive Flonase nasal RxNorm: 88467 nasal No Start Date 03/08/2017 Inactive gabapentin 100 mg tablet RxNorm: 695761 1 Tablet(s) PO TID No Start Date 02/06/2015 Inactive hydrocodone 10 mg-acetaminophen 325 mg tablet RxNorm: 415636 1 Tablet(s) PO QID No Start Date 11/08/2014 Inactive Zithromax Z-Myles 250 mg tablet RxNorm: 603219 1 Tablet(s) PO UD No Start Date 06/24/2017 Inactive clopidogrel 75 mg tablet RxNorm: 440415 1 Tablet(s) PO daily No Start Date 09/03/2016 Inactive atorvastatin 40 mg tablet RxNorm: 676194 1 Tablet(s) PO daily No Start Date 09/20/2017 Inactive sertraline 50 mg tablet RxNorm: 004485 1 Tablet(s) PO daily No Start Date [...] 09/23/2017 Dysuria ICD-10: R30.0 ICD-9: 788.1 03/17/2017 Localization-related (focal) (partial) symptomatic epilepsy and epileptic syndromes with simple partial seizures, not intractable, without status epilepticus ICD-10: G40.109 ICD-9: 345.50 03/09/2017 Underweight ICD-10: R63.6 ICD-9: 783.22 03/09/2017 Chronic pain syndrome ICD-10: G89.4 ICD-9: [...] 2014 Elevated blood sugar ICD-9: 790.29 2014 ESOPHAGEAL REFLUX ICD-9: 530.81 2014 OSTEOARTH NOS-UNSPEC ICD-9: 715.90 2014 DEPRESSIVE DISORDER NEC ICD-9: 311 2014 Peripheral neuropathy ICD-9: 356.9 2014 Reason For Visit Reason For Visit [...] Item Item Code Result Date Comp Metabolic Roe589 NA 141 mEq/L 05/06/2018 Comp Metabolic Aiy454 K 4.0 mEq/L 05/06/2018 Comp Metabolic Qek048 CL 105 mEq/L 05/06/2018 Comp Metabolic Yhm570 CO2 29.0 mEq/L 05/06/2018 Comp Metabolic Ibg383 ANION GAP 11 05/06/2018 Comp Metabolic Dkp276 GLUCOSE 103 mg/dL 05/06/2018 Comp Metabolic Lkx548 Creat 0.8 mg/dL 05/06/2018 Comp Metabolic Hxb014 eGFR 80 ml/min/1.73m2 05/06/2018 Comp Metabolic Seg279 BUN 23 mg/dL 05/06/2018 Comp Metabolic Sft625 B/C Ratio 30.3 Ratio 05/06/2018 Comp Metabolic Rrr577 CALCIUM 9.2 mg/dL 05/06/2018 Comp Metabolic Ggv318 ALK PHOS 65 U/L 05/06/2018 Comp Metabolic Bju294 AST(SGOT) 18 U/L 05/06/2018 Comp Metabolic Jvc795 ALT(SGPT) 15 U/L 05/06/2018 Comp Metabolic Tcl270 BILI T 0.5 mg/dL 05/06/2018 Comp Metabolic Vbb506 ALBUMIN 4.4 g/dL 05/06/2018 Comp Metabolic Oqt244 TPRO 6.4 g/dL 05/06/2018 Comp Metabolic Wjd777 GLOB 2.0 g/dL 05/06/2018 Comp Metabolic Qkj234 A/G Ratio 2.2 Ratio 05/06/2018 Comp Metabolic Zmp539 Osmo 285 mOsmo 05/06/2018 Cbc With Differential [...] 31.0 pg 05/05/2018 Cbc With Differential Ord2 [place]% 7.4 % 05/05/2018 Cbc With Differential Ord2 [...] 2.60 K/ul 05/05/2018 Cbc With Differential Ord2 [place] ABS# 0.7 K/ul 05/05/2018 Cbc With Differential Ord2 Eos ABS# 0.1 K/ul 05/05/2018 Cbc With Differential Ord2 Baso ABS# 0.0 K/ul 05/05/2018 C-Reactive Protein Qnt Crqnt CRP 0.1 mg/dl 11/04/2017 Sed Rate Ord21 ESR 2 mm/hr 11/04/2017 Tsh Ord6 TSH (3rd IS) 1.13 uIU/mL 08/28/2017 Cbc With Differential Ord2 WBC 7.49 [...] 30.9 pg 08/28/2017 Cbc With Differential Ord2 [place]% 5.9 % 08/28/2017 Cbc With Differential Ord2 Eos% 0.9 % 08/28/2017 Cbc With Differential Ord2 MCHC 33.1 pg 08/28/2017 Cbc With Differential Ord2 PLT 190 K/ul 08/28/2017 Cbc With Differential Ord2 Baso% 0.5 % 08/28/2017 Cbc With Differential Ord2 Neut ABS# 4.66 K/ul 08/28/2017 Cbc With Differential Ord2 RDW 15.4 % 08/28/2017 Cbc With Differential Ord2 Lymph ABS# 2.28 K/ul 08/28/2017 Cbc With Differential Ord2 [place] ABS# 0.4 K/ul 08/28/2017 Cbc With Differential Ord2 Eos ABS# 0.1 K/ul 08/28/2017 Cbc With Differential Ord2 Baso ABS# 0.0 K/ul 08/28/2017 Comp Metabolic Xpl337 NA 143 mEq/L 08/28/2017 Comp Metabolic Rps402 K 4.2 mEq/L 08/28/2017 Comp Metabolic Dai990 CL 108 mEq/L 08/28/2017 Comp Metabolic Wrg331 CO2 28.0 mEq/L 08/28/2017 Comp Metabolic Swp975 ANION GAP 11 08/28/2017 Comp Metabolic Wam849 GLUCOSE 89 mg/dL 08/28/2017 Comp Metabolic Dpp331 Creat 0.8 mg/dL 08/28/2017 Comp Metabolic Efi926 eGFR 78 ml/min/1.73m2 08/28/2017 Comp Metabolic Clf602 BUN 19 mg/dL 08/28/2017 Comp Metabolic Jvv470 B/C Ratio 24.4 Ratio 08/28/2017 Comp Metabolic Ykw103 CALCIUM 8.4 mg/dL 08/28/2017 Comp Metabolic Kni415 ALK PHOS 52 U/L 08/28/2017 Comp Metabolic Iwo078 AST(SGOT) 20 U/L 08/28/2017 Comp Metabolic Zkm015 ALT(SGPT) 14 U/L 08/28/2017 Comp Metabolic Zmx730 BILI T 0.5 mg/dL 08/28/2017 Comp Metabolic Cws747 ALBUMIN 4.0 g/dL 08/28/2017 Comp Metabolic Dfb174 TPRO 5.9 g/dL 08/28/2017 Comp Metabolic Gsm917 GLOB 1.9 g/dL 08/28/2017 Comp Metabolic Xmq658 A/G Ratio 2.1 Ratio 08/28/2017 Comp Metabolic Hti815 Osmo 287 mOsmo 08/28/2017 Lipid Ord30 CHOL 152 mg/dL 08/28/2017 Lipid Ord30 HDL 53.0 mg/dl 08/28/2017 Lipid Ord30 TRIG 102 mg/dL 08/28/2017 Lipid Ord30 LDL 79 mg/dL 08/28/2017 Lipid Ord30 C/HDL 2.9 Ratio 08/28/2017 Cbc With Differential Ord2 WBC 6.06 [...] 31.7 pg 03/09/2017 Cbc With Differential Ord2 [place]% 6.1 % 03/09/2017 Cbc With Differential Ord2 [...] 1.78 K/ul 03/09/2017 Cbc With Differential Ord2 [place] ABS# 0.4 K/ul 03/09/2017 Cbc With Differential Ord2 Eos ABS# 0.1 K/ul 03/09/2017 Cbc With Differential Ord2 Baso ABS# 0.0 K/ul 03/09/2017 Tsh Ord6 hTSH II 0.87 uIU/mL 03/09/2017 %Hba1C Yov035 % HbA1c 71443-8 4.9 % 03/09/2017 %Hba1C Cjc727 Gluc Ave 94 mg/dL 03/09/2017 Comp Metabolic Kbj252 NA 141 mEq/L 03/09/2017 Comp Metabolic Shj133 K 3.8 mEq/L 03/09/2017 Comp Metabolic Emq278 CL 105 mEq/L 03/09/2017 Comp Metabolic Ifm621 CO2 29.0 mEq/L 03/09/2017 Comp Metabolic Bhm950 ANION GAP 11 03/09/2017 Comp Metabolic Rhy319 GLUCOSE 98 mg/dL 03/09/2017 Comp Metabolic Hor505 Creat 0.7 mg/dL 03/09/2017 Comp Metabolic Yxf288 eGFR 93 ml/min/1.73m2 03/09/2017 Comp Metabolic Zps080 BUN 11 mg/dL 03/09/2017 Comp Metabolic Wdo649 B/C Ratio 16.4 Ratio 03/09/2017 Comp Metabolic Rjj197 CALCIUM 9.5 mg/dL 03/09/2017 Comp Metabolic Hym986 ALK PHOS 90 U/L 03/09/2017 Comp Metabolic Udq266 AST(SGOT) 21 U/L 03/09/2017 Comp Metabolic Ltl705 ALT(SGPT) 15 U/L 03/09/2017 Comp Metabolic Psr307 BILI T 0.6 mg/dL 03/09/2017 Comp Metabolic Koz056 ALBUMIN 4.5 g/dL 03/09/2017 Comp Metabolic Fej789 TPRO 6.4 g/dL 03/09/2017 Comp Metabolic Sao596 GLOB 1.9 g/dL 03/09/2017 Comp Metabolic Vya956 A/G Ratio 2.3 Ratio 03/09/2017 Comp Metabolic Ipy459 Osmo 281 mOsmo 03/09/2017 Lipid Ord30 CHOL 118 mg/dL 09/03/2016 Lipid Ord30 HDL 44.0 mg/dl 09/03/2016 Lipid Ord30 TRIG 93 mg/dL 09/03/2016 Lipid Ord30 LDL 55 mg/dL 09/03/2016 Lipid Ord30 C/HDL 2.7 Ratio 09/03/2016 Comp Metabolic Mwj577 NA 142 mEq/L 09/03/2016 Comp Metabolic Wsq466 K 3.9 mEq/L 09/03/2016 Comp Metabolic Wgf495 CL 107 mEq/L 09/03/2016 Comp Metabolic Hra251 CO2 26.0 mEq/L 09/03/2016 Comp Metabolic Wcm823 ANION GAP 13 09/03/2016 Comp Metabolic Ftd561 GLUCOSE 107 mg/dL 09/03/2016 Comp Metabolic Dzk064 Creat 0.7 mg/dL 09/03/2016 Comp Metabolic Cdk941 eGFR 85 ml/min/1.73m2 09/03/2016 Comp Metabolic Qbu690 BUN 16 mg/dL 09/03/2016 Comp Metabolic Xxx622 B/C Ratio 21.9 Ratio 09/03/2016 Comp Metabolic Mwc697 CALCIUM 8.8 mg/dL 09/03/2016 Comp Metabolic Frw184 ALK PHOS 51 U/L 09/03/2016 Comp Metabolic Mwn353 AST(SGOT) 24 U/L 09/03/2016 Comp Metabolic Kne419 ALT(SGPT) 20 U/L 09/03/2016 Comp Metabolic Ayz315 BILI T 0.7 mg/dL 09/03/2016 Comp Metabolic Yds415 ALBUMIN 4.1 g/dL 09/03/2016 Comp Metabolic Gaw113 TPRO 6.1 g/dL 09/03/2016 Comp Metabolic Unt046 GLOB 2.0 g/dL 09/03/2016 Comp Metabolic Fhd688 A/G Ratio 2.1 Ratio 09/03/2016 Comp Metabolic Irm579 Osmo 285 mOsmo 09/03/2016 Cbc With Differential [...] 24.8 % 09/03/2016 Cbc With Differential Ord2 [place]% 6.5 % 09/03/2016 Cbc With Differential Ord2 MCH 30.3 pg 09/03/2016 Cbc With Differential Ord2 Eos% 1.3 % 09/03/2016 Cbc With Differential Ord2 MCHC 33.8 pg 09/03/2016 Cbc With Differential Ord2 PLT 217 K/ul 09/03/2016 Cbc With Differential Ord2 Baso% 0.6 % 09/03/2016 Cbc With Differential Ord2 RDW 15.3 % 09/03/2016 Cbc With Differential Ord2 Neut ABS# 4.11 K/ul 09/03/2016 Cbc With Differential Ord2 Lymph ABS# 1.53 K/ul 09/03/2016 Cbc With Differential Ord2 [place] ABS# 0.4 K/ul 09/03/2016 Cbc With Differential Ord2 Eos ABS# 0.1 K/ul 09/03/2016 Cbc With Differential Ord2 Baso ABS# 0.0 K/ul 09/03/2016 Metabolic Ord15 NA 141 mEq/L 12/21/2015 [...] Ord15 CALCIUM 9.1 mg/dL 12/21/2015 Comp Metabolic Qqe579 NA 138 mEq/L 07/06/2015 Comp Metabolic Fgc868 K 3.9 mEq/L 07/06/2015 Comp Metabolic Qoh141 CL 103 mEq/L 07/06/2015 Comp Metabolic Riv378 CO2 28.0 mEq/L 07/06/2015 Comp Metabolic Yep596 ANION GAP 11 07/06/2015 Comp Metabolic Qnl522 GLUCOSE 114 mg/dL 07/06/2015 Comp Metabolic Ddw067 Creat 0.7 mg/dL 07/06/2015 Comp Metabolic Ilj868 eGFR 97 ml/min/1.73m2 07/06/2015 Comp Metabolic Hwk340 BUN 11 mg/dL 07/06/2015 Comp Metabolic Ngh751 B/C Ratio 16.9 Ratio 07/06/2015 Comp Metabolic Bje020 CALCIUM 9.1 mg/dL 07/06/2015 Comp Metabolic Xxd134 ALK PHOS 57 U/L 07/06/2015 Comp Metabolic Auo619 AST(SGOT) 26 U/L 07/06/2015 Comp Metabolic Rlx172 ALT(SGPT) 17 U/L 07/06/2015 Comp Metabolic Sfl595 BILI T 0.6 mg/dL 07/06/2015 Comp Metabolic Ejk185 ALBUMIN 4.6 g/dL 07/06/2015 Comp Metabolic Mhk515 TPRO 6.7 g/dL 07/06/2015 Comp Metabolic Igm147 GLOB 2.1 g/dL 07/06/2015 Comp Metabolic Nsq169 A/G Ratio 2.2 Ratio 07/06/2015 Comp Metabolic Zmp136 Osmo 276 mOsmo 07/06/2015 Lipid Ord30 CHOL 228 mg/dL 07/06/2015 Lipid Ord30 HDL 48.0 mg/dl 07/06/2015 Lipid Ord30 TRIG 176 mg/dL 07/06/2015 Lipid Ord30 LDL 145 mg/dL 07/06/2015 Lipid Ord30 C/HDL 4.8 Ratio 07/06/2015 Comp Metabolic Ljl677 NA 141 mEq/L 05/01/2015 Comp Metabolic Pux406 K 4.0 mEq/L 05/01/2015 Comp Metabolic Dax824 CL 106 mEq/L 05/01/2015 Comp Metabolic Hze619 CO2 26.0 mEq/L 05/01/2015 Comp Metabolic Hws478 ANION GAP 13 05/01/2015 Comp Metabolic Ugv491 GLUCOSE 124 mg/dL 05/01/2015 Comp Metabolic Iwr309 Creat 0.8 mg/dL 05/01/2015 Comp Metabolic Fjt332 eGFR 79 ml/min/1.73m2 05/01/2015 Comp Metabolic Ynn826 BUN 13 mg/dL 05/01/2015 Comp Metabolic Etb410 B/C Ratio 16.7 Ratio 05/01/2015 Comp Metabolic Lqa028 CALCIUM 9.3 mg/dL 05/01/2015 Comp Metabolic Ecp771 ALK PHOS 54 U/L 05/01/2015 Comp Metabolic Ijz927 AST(SGOT) 21 U/L 05/01/2015 Comp Metabolic Rrh032 ALT(SGPT) 14 U/L 05/01/2015 Comp Metabolic Jev340 BILI T 0.5 mg/dL 05/01/2015 Comp Metabolic Bwg963 ALBUMIN 4.5 g/dL 05/01/2015 Comp Metabolic Iem393 TPRO 6.4 g/dL 05/01/2015 Comp Metabolic Iqk894 GLOB 1.9 g/dL 05/01/2015 Comp Metabolic Fph411 A/G Ratio 2.4 Ratio 05/01/2015 Comp Metabolic Lue656 Osmo 283 mOsmo 05/01/2015 Tsh Ord6 hTSH II 0.74 uIU/mL 05/01/2015 Cbc With Differential Ord2 WBC 7.1 [...] Differential Ord2 RDW 16.8 % 05/01/2015 %Hba1C Ypm491 % HbA1c 99633-6 5.4 % 01/29/2015 %Hba1C Wda920 Gluc Ave 108 mg/dL 01/29/2015 Cbc With Differential Ord2 WBC 5.7 K/uL [...] With Differential Ord2 RDW 15.5 % 01/26/2015 Tsh Ord6 hTSH II 0.85 uIU/mL 01/26/2015 Lipid Ord30 CHOL 221 mg/dL 01/26/2015 Lipid Ord30 HDL 37.0 mg/dl 01/26/2015 Lipid Ord30 TRIG 274 mg/dL 01/26/2015 Lipid Ord30 LDL 129 mg/dL 01/26/2015 Lipid Ord30 C/HDL 6.0 Ratio 01/26/2015 B12 Iws076 B12 669.00 pg/ml 01/26/2015 Comp Metabolic Ffe496 NA 137 mEq/L 01/26/2015 Comp Metabolic Gfj865 K 4.0 mEq/L 01/26/2015 Comp Metabolic Dqy412 CL 104 mEq/L 01/26/2015 Comp Metabolic Kog631 CO2 27.0 mEq/L 01/26/2015 Comp Metabolic Hwj439 ANION GAP 10 01/26/2015 Comp Metabolic Owq018 GLUCOSE 131 mg/dL 01/26/2015 Comp Metabolic Zak071 Creat 0.8 mg/dL 01/26/2015 Comp Metabolic Ers830 eGFR 77 ml/min/1.73m2 01/26/2015 Comp Metabolic Plx783 BUN 16 mg/dL 01/26/2015 Comp Metabolic Suy546 B/C Ratio 20.0 Ratio 01/26/2015 Comp Metabolic Ygc402 CALCIUM 9.1 mg/dL 01/26/2015 Comp Metabolic Zyo848 ALK PHOS 66 U/L 01/26/2015 Comp Metabolic Ryq030 AST(SGOT) 24 U/L 01/26/2015 Comp Metabolic Kdo001 ALT(SGPT) 20 U/L 01/26/2015 Comp Metabolic Xgh976 BILI T 0.4 mg/dL 01/26/2015 Comp Metabolic Pqi092 ALBUMIN 4.2 g/dL 01/26/2015 Comp Metabolic Rjm418 TPRO 6.4 g/dL 01/26/2015 Comp Metabolic Saj301 GLOB 2.2 g/dL 01/26/2015 Comp Metabolic Axi341 A/G Ratio 1.9 Ratio 01/26/2015 Comp Metabolic Oxf811 Osmo 277 mOsmo 01/26/2015 Review of Systems System Result Effective [...] 7's or "world" spelled backward (5): 5 12/09/2016 None Full Exam - [...] status Orientation: What is the year/season/date/day/month (5): 08/11/2016 None Full Exam - General 1994 Neurologic mental status Orientation: Where are we - state/country/town/hospital/floor (5): 08/11/2016 None Full Exam - General 1994 Neurologic mental status Attention/calculation: _ Serial 7's or "world" spelled backward (5): 08/11/2016 None Full Exam - General 1994 [...] NO PRSV 4 BLANCA 3 YRS+ CPT-4: 98108 02/22/2018 ADMIN INFLUENZA VIRUS VAC CPT-4: G0008 03/18/2017 FLU VACC PRSV FREE INC ANTIG CPT-4: 97025 03/18/2017 INITIAL PREVENTIVE EXAM CPT-4: G0402 07/06/2015 IIV4 FLU VACC NO PRESERV ID Formatting Model/CDA Sections, Assigned to SNOMED CT: [id number] CPT-4: 96877Fkibfsn 03/26/2015 IMMUNIZATION ADMIN CPT -4: 34467 03/26/2015 Vital Signs Date Vital 05/05/2018 Blood Pressure 1: 120/80 Code : 8480-6 BMI: 29.1 Code : 65292-6 Heart Rate 1 : 76 bpm Height: 5'1" SpO2: 97% Weight: 154 lbs 02/22/2018 Blood Pressure 1: 140/70 Code : 8480-6 BMI: 26.3 Code : 89071-9 Heart Rate 1 : 60 bpm Height: 5'1" SpO2: 97% Weight: 139 lbs 12/29/2017 Blood Pressure 1: 110/58 Code : 8480-6 BMI: 23.8 Code : 19883-3 Heart Rate 1 : 56 bpm Height: 5'1" SpO2: 98% Weight: 126 lbs 10/28/2017 Blood Pressure 1: 96/68 Code : 8480-6 BMI: 21.7 Code : 46400-9 Heart Rate 1 : 68 bpm Height: 5'1" SpO2: 98% Weight: 115 lbs 09/23/2017 Blood Pressure 1: 134/72 Code : 8480-6 BMI: 22.5 Code : 64604-5 Heart Rate 1 : 72 bpm Height: 5'1" SpO2: 97% Weight: 119 lbs 03/18/2017 Blood Pressure 1: 140/72 Code : 8480-6 BMI: 21.5 Code : 76177-1 Heart Rate 1 : 64 bpm Height: 5'1" SpO2: 96% Weight: 114 lbs 03/09/2017 Blood Pressure 1: 120/72 Code : 8480-6 BMI: 21.5 Code : 31595-6 Heart Rate 1 : 75 bpm Height: 5'1" SpO2: 97% Weight: 114 lbs 12/09/2016 Blood Pressure 1: 130/76 Code : 8480-6 BMI: 23.8 Code : 43746-5 Heart Rate 1 : 68 bpm Height: 5'1" SpO2: 98% Weight: 126 lbs 09/08/2016 Blood Pressure 1: 162/80 Code : 8480-6 Blood Pressure 2: 145/90 Code: 8480-6 BMI: 24.7 Code: 34223-0 Heart Rate 1: 77 bpm Height: 5'1" SpO2: 97% Weight: 130 lbs 8 oz 08/11/2016 Blood Pressure 1: 130/80 Code : 8480-6 BMI: 25.9 Code : 58586-5 Heart Rate 1 : 62 bpm Height: 5'1" SpO2: 97% Weight: 137 lbs 07/03/2016 Blood Pressure 1: 134/74 Code : 8480-6 BMI: 26.8 Code : 35965-7 Heart Rate 1 : 74 bpm Height: 5'1" SpO2: 97% Weight: 142 lbs 06/19/2016 Blood Pressure 1: 118/66 Code : 8480-6 Heart Rate 1: 72 bpm SpO2: 96% Weight: 142 lbs 02/04/2016 Blood Pressure 1: 130/80 Code : 8480-6 BMI: 27.2 Code : 74341-0 Heart Rate 1 : 76 bpm Height: 5'1" SpO2: 96% Weight: 144 lbs 01/07/2016 Blood Pressure 1: 136/64 Code : 8480-6 BMI: 27.6 Code : 38095-1 Heart Rate 1 : 73 bpm Height: 5'1" SpO2: 987% Weight: 146 lbs 12/17/2015 Blood Pressure 1: 128/86 Code : 8480-6 BMI: 27.0 Code : 51207-4 Heart Rate 1 : 59 bpm Height: 5'1" SpO2: 96% Weight: 143 lbs 10/16/2015 Blood Pressure 1: 122/78 Code : 8480-6 BMI: 25.7 Code : 69319-4 Heart Rate 1 : 71 bpm Height: 5'1" SpO2: 96% Weight: 136 lbs 08/16/2015 Blood Pressure 1: 138/88 Code : 8480-6 BMI: 27.0 Code : 79588-5 Heart Rate 1 : 75 bpm Height: 5'1" SpO2: 98% Weight: 143 lbs 07/06/2015 Blood Pressure 1: 120/72 Code : 8480-6 BMI: 26.5 Code : 75403-7 Heart Rate 1 : 72 bpm Height: 5'1" SpO2: 96% Weight: 140 lbs 06/07/2015 Blood Pressure 1: 152/86 Code : 8480-6 BMI: 26.1 Code : 74305-3 Heart Rate 1 : 88 bpm Height: 5'1" SpO2: 97% Weight: 138 lbs 05/01/2015 Blood Pressure 1: 120/80 Code : 8480-6 BMI: 27.0 Code : 39555-4 Heart Rate 1 : 82 bpm Height: 5'1" SpO2: 98% Temperature: 36.7 (C) / 98.0 (F) Weight: 143 lbs 03/26/2015 Blood Pressure 1: 140/80 Code : 8480-6 BMI: 28.0 Code : 53042-6 Heart Rate 1 : 69 bpm Height: 5'1" SpO2: 96% Weight: 148 lbs 03/13/2015 Blood Pressure 1: 128/70 Code : 8480-6 BMI: 28.2 Code : 93367-6 Heart Rate 1 : 76 bpm Height: 5'1" Weight: 149 lbs 01/30/2015 Blood Pressure 1: 142/68 Code : 8480-6 BMI: 28.7 Code : 18236-4 Heart Rate 1 : 86 bpm Height: 5'1" SpO2: 96% Weight: 152 lbs 10/16/2014 Blood Pressure 1: 160/88 Code : 8480-6 BMI: 28.2 Code : 62116-3 Heart Rate 1 : 66 bpm Height: [...] data Encounters Encounter Performer Location Codes Date 91948 EST. PATIENT, LEVEL III Diagnosis: Dementia in other diseases classified elsewhere without behavioral disturbance[ICD10: F02.80] Diagnosis: Major depressive disorder, recurrent, mild[ICD10: F33.0] Diagnosis: Generalized anxiety disorder[ICD10: F41.1] [facility] CPT-4: 17417 05/05/2018 10784 EST. PATIENT, LEVEL III Diagnosis: Other insomnia[ICD10: G47.09] Diagnosis: Dementia in other diseases classified elsewhere without behavioral disturbance[ICD10: F02.80] Diagnosis: Encounter for immunization[ICD10: Z23] Angelica Ochoa MD, [facility] CPT-4: 79825 02/22/2018 [id number] EST. PATIENT, LEVEL IV Diagnosis: Dementia in other diseases classified elsewhere without behavioral disturbance[ICD10: F02.80] Diagnosis: Major depressive disorder, recurrent, mild[ICD10: F33.0] Diagnosis: Other allergic rhinitis[ICD10: J30.89] Angelica Ochoa MD, [facility] CPT-4: 49094 12/29/2017 ([id number]) 92129 EST. PATIENT, LEVEL IV Diagnosis: Dementia in other diseases classified elsewhere without behavioral disturbance[ICD10: F02.80] Diagnosis: Major depressive disorder, recurrent, mild[ICD10: F33.0] Diagnosis: Allergy to other foods[ICD10: Z91.018] Marylu Ochoa MD, [facility] CPT-4: 03298 10/28/2017 43650 EST. 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 PATIENT, LEVEL IV Diagnosis: Essential (primary) hypertension[ICD10: I10] Diagnosis: Major depressive disorder, recurrent, moderate[ICD10: F33.1] Diagnosis: Underweight[ICD10: R63.6] Diagnosis: Localization-related (focal) (partial) symptomatic epilepsy and epileptic syndromes with simple partial seizures, not intractable, without status epilepticus[ICD10: G40.109] Marylu Ochoa MD, [facility] CPT-4: 83069 03/09/2017 ([id number]) 40509 EST. PATIENT, LEVEL IV Diagnosis: Mixed hyperlipidemia[ICD10: E78.2] Diagnosis: Chronic pain syndrome[ICD10: G89.4] Diagnosis: Major depressive disorder, recurrent, mild[ICD10: F33.0] Marylu Ochoa MD, [facility] CPT-4: 92665 12/09/2016 ([id number]) 73537 EST. PATIENT, LEVEL IV Diagnosis: Essential (primary) hypertension[ICD10: I10] Diagnosis: Low back pain[ICD10: M54.5] Diagnosis: Personal history of transient ischemic attack (TIA), and cerebral infarction without residual deficits[ICD10: Z86.73] Diagnosis: Major depressive disorder, recurrent, moderate[ICD10: F33.1] Diagnosis: Other sleep apnea[ICD10: G47.39] Marylu Ochoa MD, [facility] CPT-4: 73468 09/08/2016 ([id number]) 08683 EST. PATIENT, LEVEL IV Diagnosis: Mixed hyperlipidemia[ICD10: E78.2] Diagnosis: Other transient cerebral ischemic attacks and related syndromes[ICD10 : G45.8] Marylu Ochoa MD, [facility] CPT-4: 96141 2016 93266 EST. PATIENT, LEVEL III Diagnosis: Chronic pain syndrome[ICD10: G89.4] Diagnosis: Low back pain[ICD10: M54.5] Diagnosis: Major depressive disorder, recurrent, mild[ICD10: F33.0] Diagnosis: Mild cognitive impairment, so stated[ICD10: G31.84] Angelica Ochoa MD, [facility] CPT-4: 96958 07/03/2016 ([id number]) 33052 EST. PATIENT, LEVEL III Diagnosis: Chronic pain syndrome[ICD10: G89.4] Donna Ochoa MD, [facility] CPT-4: 37076 06/19/2016 ([id number]) 03125 EST. PATIENT, LEVEL IV Diagnosis: Chronic pain syndrome[ICD10: G89.4] Diagnosis: Mild cognitive impairment, so stated[ICD10: G31.84] Donna Ochoa MD, [facility] CPT-4: 84496 02/04/2016 ([id number]) 59155 EST. PATIENT, LEVEL IV Diagnosis: Chronic pain syndrome[ICD10: G89.4] Diagnosis: Mild cognitive impairment, so stated[ICD10: G31.84] Diagnosis: Major depressive disorder, recurrent, mild[ICD10: F33.0] Donna Ochoa MD , [facility] CPT-4: 93981 01/07/2016 ([id number]) 83051 EST. PATIENT, LEVEL IV Diagnosis: Chronic pain syndrome[ICD10: G89.4] Diagnosis: Headache[ICD10: R51] Diagnosis: Major depressive disorder, recurrent, mild[ICD10: F33.0] Diagnosis: Mixed hyperlipidemia[ICD10: E78.2] Donna Ochoa MD, [facility] CPT-4: 17606 12/17/2015 ([id number]) 89534 EST. PATIENT, LEVEL III Diagnosis: Chronic pain syndrome[ICD10: G89.4] Diagnosis: Major depressive disorder, recurrent, mild[ICD10: F33.0] Donna Ochoa MD , [facility] CPT-4: 24863 10/16/2015 ([id number]) 64736 EST. PATIENT, LEVEL III Diagnosis: Low back pain[ICD10: M54.5] Donna Ochoa MD, [facility] CPT-4: 31980 08/16/2015 ([id number]) 48377 EST. 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 PATIENT, LEVEL IV Diagnosis: Major depressive disorder, recurrent, mild[ICD10: F33.0] Diagnosis: Chronic pain syndrome[ICD10: G89.4] Diagnosis: Other fatigue[ICD10: R53.83] Donna Ochoa MD, [facility] CPT-4: 11933 05/01/2015 ([id number]) 87364 EST. PATIENT, LEVEL II Diagnosis: Plantar fascial fibromatosis[ICD10: M72.2] Donna Ochoa MD, [facility] CPT-4: 84385 03/26/2015 ([id number]) 91497 EST. PATIENT, LEVEL III Diagnosis: Plantar fascial fibromatosis[ICD10: M72.2] Donna Ochoa MD, [facility] CPT-4: 31776 03/13/2015 ([id number]) 00548 EST. PATIENT, LEVEL III Diagnosis: Hyperlipidemia[ICD9: 272.4] Diagnosis: ALLERGIC RHINITIS[ICD9: 477.9] Diagnosis: Chronic pain syndrome[ICD9: 338.4] Donna Ochoa MD, [facility] CPT-4: 62106 01/30/2015 ([id number]) OFFICE VISIT, NEW - LEVEL 4 Diagnosis: ESOPHAGEAL REFLUX[ICD9: 530.81] Diagnosis: Peripheral neuropathy[ICD9: 356.9] Diagnosis: Chronic pain syndrome[ICD9: 338.4] Diagnosis: OSTEOARTH NOS-UNSPEC[ICD9: 715.90] Diagnosis: DEPRESSIVE DISORDER NEC[ICD9: 311] Marylu Ochoa MD, [facility] CPT-4: 93335 10/16/2014 Plan of Care Planned Activity Notes [...] treatment. 05/05/2018 [phone] ([facility] Complex 05/05/2018 Patient Education: Patient Medication Summary Completed 05/05/2018 Patient Education: Depression Completed 05/05/2018 Appointment: Angelica Cuba WPtel: [facility] (15 min) Moderate 03/24/2018 Visit Plan: Insomnia [...] current plan of treatment. 02/22/2018 Appointment: Angelica uCba WPtel[facility] ([facility] min) Moderate 02/22/2018 Appointment: Angelica Cuba WPtel[facility] ([facility] min) Moderate 02/22/2018 Patient Education: Patient Medication Summary Completed 02/22/2018 Appointment: Angelica Cuba WPtel: [facility] (15 min) Moderate 02/18/2018 Visit Plan: Dementia [...] Summary Completed 12/29/2017 Appointment: Angel[facility] [place] WPtel[facility] [place] (15 min) Moderate 12/23/2017 Patient [...] adalgisa. 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 03/09/2017 Appointment: Marylu Ochoa WPtel: [phone] [facility] (30 min) Complex 03/09/2017 Patient Education: Patient Medication Summary Completed 03/09/2017 Appointment: Donna Walden WPtel: [phone] [phone] [place] (30 min) Complex 03/06/2017 Appointment: [phone] (15 min) Moderate 01/08/2017 Visit [...] Completed 12/09/2016 Appointment: [phone] (15 min) Moderate 11/11/2016 [facility]ment: [facility] [place] [phone] ([facility] min) Complex 10/09/2016 Visit Plan: [...] - 90 day supply of Aricept through [employer], refill namenda Suspected sleep disordered breathing with [...] - 90 day supply of Aricept through [facility], refill namejamilaa 09/08/2016 Appointment: Marylu Ochoa WPtel: [facility] (15 min) Moderate 09/08/2016 Patient Education: Patient Medication Summary Completed 09/08/2016 Appointment: Angelica Cuba WPtel: [facility] (30 min) Complex 08/19/2016 Visit Plan: [...] plavix 08/11/2016 Appointment: Marylu Ochoa WPtel: [facility] (15 min) Moderate 08/11/2016 Patient Education: Patient [...] concerns. 07/03/2016 Appointment: Angelica Cuba WPtel: [facility] (30 min) Complex 07/03/2016 Patient Education: Patient Medication Summary Completed 07/03/2016 Care Plan: Referral Order SNOMED-CT : [id number] Pending 07/03/2016 Visit Plan: Chronic Pain Syndrome - pt has chronic pain - has been maintained on current medications, has not sought out other medications , only uses PRN pain medications as directed, and understands the consequences of over-medication. 06/19/2016 Appointment: Donna Walden WPtel: [facility] [address] (30 min) Complex 06/19/2016 Patient Education: Patient Medication Summary Completed 06/19/2016 Appointment: Donna Walden WPtel: [facility] [place] [address] [place] (30 min) Complex 06/05/2016 Visit Plan: Chronic Pain Syndrome - pt has chronic pain - has been maintained on current medications, has not sought out other medications , only uses PRN pain medications as directed, and understands the consequences of over-medication. Mild cognitive impairment-discussed with Dr Arnulfo tam 02/04/2016 Appointment: Donna Walden WPtel: [facility] [address] (30 min) Complex 02/04/2016 Patient Education: Patient Medication Summary Completed 02/04/2016 Appointment: Donna Walden WPtel: [facility] [place] [address] [place] (30 min) Complex 01/14/2016 Visit Plan: Chronic [...] testing. 01/07/2016 Appointment: Donna Walden WPtel: [facility] [place] [address] (15 min) Moderate 01/07/2016 Patient Education: Patient Medication Summary Completed 01/07/2016 Visit Plan: Chronic Pain Syndrome - pt has chronic pain - has been maintained on current medications, has not sought out other medications , only uses PRN pain medications as directed, and understands the consequences of over-medication. Headaches-memory loss-schedule MRI brain Hyperlipidemia- check fasting labs Kihmdeokoe-mrkrpk-mv change in medications at this time 12/17/2015 Patient Education: Patient Medication Summary Completed 12/17/2015 Appointment: Donna Walden WPtel: [facility] [address] (30 min) Complex 12/13/2015 Visit Plan: [...] medications. 10/16/2015 Appointment: Donna Walden WPtel: [facility] [address] (30 min) Complex 10/16/2015 Patient Education: [...] symptoms. 06/07/2015 Appointment: Marylu Ochoa WPtel: [address] [place], [place] [address] (15 min) Moderate 06/07/2015 Patient Education: Patient [...] shoes - discussed inserts and referral to family therapist-patient wants to wait but will let us [...] pain symptoms. 10/16/2014 Appointment: Marylu Ochoa WPtel: [facility] [place] ([place] New Patient 10/16/2014 Patient Education: Patient Medication Summary Completed 10/16/2014 Patient Education: Hypertension Completed 10/16/2014 Referral: Betsy Samuels Referral Initiated Referral: External, Ordering Provider Referral Relationship Instructions Comment turn the lights down in the evening [...] about referring her to Dr. Dexter grullon Tracy (neurologist) . 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 FISH OIL 1000MG TWICE DAILY . Hyperlipidemia [...] pain 90 day supply of Aricept through [facility] Add 50 mg Losartan daily for hypertension [...] - 90 day supply of Aricept through [facility], refill namenda Suspected sleep disordered breathing with episodes of nocturnal fits of not breathing correctly - pt advised of need for an overnight oxygen study to be done to see if there is nocturnal hypoxemia contributing to her memory loss, htn. mammogram order - given to patient - she is to schedule in [place] . Chronic Pain Syndrome - pt has [...] Use tylenol for break through pain symptoms. MRI brain Memory testing with f/u appt . Chronic Pain Syndrome - pt has chronic pain - has been maintained on current medications, has not sought out other medications, only uses PRN pain medications as directed, and understands the consequences of over-medication. Headaches-memory loss-schedule MRI brain Hyperlipidemia-check fasting labs Ofjjzcacvd-mnzkfu-ao change in medications at this time . 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 Continue with current plan of treatment. Start Cymbalta (duloxetine) 30mg daily and take [...] notify clinic with any questions or concerns. Namenda starter pack . Chronic Pain Syndrome - pt has chronic pain - has been maintained on current medications, has not sought out other medications, only uses PRN pain medications as directed, and understands the consequences of over-medication. Mild cognitive impairment-discussed with Dr Ochoa-Namenda starter pack Refill Cymbalta Voltaren gel for low back pain 90 day supply of Aricept through [facility] Add 50 mg Losartan daily for hypertension [...] of Aricept through [facility], refill namenda . Chronic Pain Syndrome - pt has chronic pain - has been maintained on current medications, has not sought out other medications, only uses PRN pain medications as directed, and understands the consequences of over- medication. call back to the office to let [...]
--- OUTSIDE RECORDS SUMMARY | 2018-09-20 05:38 | XMS REPORT | CCD ---
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 Bomb Name Role Phone PP Unavailable CCM Unavailable Summary Purpose Interface Exchange Insurance Providers Payer name Policy type / Coverage type Covered green party ID Effective Begin Date Effective End Date WPS Medicare Part B Medicare Part B [id number] 2015 Unknown [facility] Medicare Part B [id number] 2015 Unknown Family history Mother Diagnosis Age [...] Unknown Retired 10/16/[address]: 001136920 Never smoker 10/16/[address]: 003269186 Never drinks alcohol 10/16/2014 Allergies, Adverse Reactions, [...] hydrocodone 10 mg-acetaminophen 325 mg tablet RxNorm: 431795 1 Tablet(s) PO Q6 as needed 06/08/2018 07/07/2018 Active Cymbalta 30 mg capsule,delayed release RxNorm: 453743 1 CAPSULE(S) PO DAILY 05/07/2018 11/02/2018 Active hydrocodone 10 mg-acetaminophen 325 mg tablet RxNorm: 746628 1 Tablet(s) PO Q6 as needed may fill on 03-27-18 04/28/201802/2019 Inactive diazepam 5 mg tablet RxNorm: 393198 1/2 Tablet(s) PO QHS as needed 04/13/2018 06/11/2018 Active hydrocodone 10 mg-acetaminophen 325 mg tablet RxNorm: 068995 1 Tablet(s) PO Q6 as needed may fill on 03-27-18 03/22/201808/2017 Inactive Aricept 10 mg tablet RxNorm: 435600 1 TABLET(S) PO DAILY 201707/12/2018 Active hydrocodone 10 mg-acetaminophen 325 mg tablet RxNorm: 943779 1 Tablet(s) PO Q6 as needed 02/26/2018 03/21/2018 Inactive diazepam 5 mg tablet RxNorm: 410642 1/2 Tablet(s) PO QHS as needed 02/22/2018 03/22/2018 Inactive hydrocodone 10 mg-acetaminophen 325 mg tablet RxNorm: 872282 1 Tablet(s) PO Q6 as needed 02/05/2018 02/25/2018 Inactive levetiracetam 500 mg tablet RxNorm: 610775 1 TABLET(S) PO BID 01/07/2018 04/06/2018 Inactive pt to finish out supply of liquid then start on tablets hydrocodone 10 mg-acetaminophen 325 mg tablet RxNorm: 814185 1 Tablet(s) PO Q6 as needed 12/29/2017 01/27/2018 Inactive hydrocodone 10 mg-acetaminophen 325 mg tablet RxNorm: 571480 1 Tablet(s) PO Q6 as needed 12/10/2017 12/28/2017 Inactive Zyrtec 10 mg tablet RxNorm: 9721435 1 Tablet(s) PO QAM for allergies 10/28/2017 05/25/2018 Inactive Zantac 75 mg tablet RxNorm: 277100 1 Tablet(s) PO BID 201702/24/2018 Inactive Aricept 10 mg tablet RxNorm: 506779 1 TABLET(S) PO DAILY 201702/23/2018 Inactive Cymbalta 30 mg capsule,delayed release RxNorm: 245757 1 Capsule(s) PO daily 10/22/2017 05/06/2018 Inactive hydrocodone 10 mg-acetaminophen 325 mg tablet RxNorm: 505978 1 Tablet(s) PO Q6 as needed 10/20/2017 11/18/2017 Inactive Voltaren 1 % topical gel RxNorm: 145628 4 Gram(s) TOP TID as needed for pain as needed 09/23/2017 09/17/2018 Active levetiracetam 500 mg tablet RxNorm: 557136 1 TABLET(S) PO BID 09/21/2017 10/20/2017 Inactive pt to finish out supply of liquid then start on tablets hydrocodone 10 mg-acetaminophen 325 mg tablet RxNorm: 567444 1 Tablet(s) PO Q6 as needed 08/27/2017 09/25/2017 Inactive Aricept 10 mg tablet RxNorm: 650155 1 Tablet(s) PO daily 201709/16/2017 Inactive Aricept 10 mg tablet RxNorm: 685459 1 Tablet(s) PO daily 201708/17/2017 Inactive hydrocodone 10 mg-acetaminophen 325 mg tablet RxNorm: 415736 1 Tablet(s) PO Q6 as needed 07/28/2017 08/26/2017 Inactive Zithromax Z-Myles 250 mg tablet RxNorm: 875886 1 Tablet(s) PO UD 06/25/2017 09/20/2017 Inactive hydrocodone 10 mg-acetaminophen 325 mg tablet RxNorm: 721762 1 Tablet(s) PO Q6 as needed 06/17/2017 07/16/2017 Inactive Namenda XR 28 mg capsule sprinkle,extended release RxNorm: 786127 1 Capsule(s) PO daily 05/08/2017 05/02/2018 Inactive Aricept 10 mg tablet RxNorm: 117656 1 Tablet(s) PO daily 201608/05/2017 Inactive hydrocodone 10 mg-acetaminophen 325 mg tablet RxNorm: 485117 1 Tablet(s) PO Q6 as needed 05/05/2017 06/03/2017 Inactive hydrocodone 10 mg-acetaminophen 325 mg tablet RxNorm: 943452 1 Tablet(s) PO Q6 as needed 04/06/2017 05/04/2017 Inactive diazepam 2 mg tablet RxNorm: 439212 1/2 - 1 Tablet(s) PO BID as needed 03/18/2017 09/20/2017 Inactive Cymbalta 30 mg capsule,delayed release RxNorm: 792232 1 Capsule(s) PO daily 03/09/2017 10/04/2017 Inactive levetiracetam 500 mg tablet RxNorm: 984099 1 Tablet(s) PO BID 03/09/2017 08/05/2017 Inactive pt to finish out supply of liquid then start on tablets Aricept 5 mg tablet RxNorm: 469881 1 Tablet(s) PO daily 201605/07/2017 Inactive pantoprazole 40 mg tablet,delayed release RxNorm: 075327 1 Tablet(s) PO daily 03/09/2017 07/06/2017 Inactive hydrocodone 10 mg-acetaminophen 325 mg tablet RxNorm: 060726 1 Tablet(s) PO Q6 as needed 12/04/2016 03/08/2017 Inactive hydrocodone 10 mg-acetaminophen 325 mg tablet RxNorm: 677705 1 Tablet(s) PO Q6 as needed 11/06/2016 12/03/2016 Inactive hydrocodone 10 mg-acetaminophen 325 mg tablet RxNorm: 159602 1 Tablet(s) PO Q6 as needed 10/08/2016 11/05/2016 Inactive Voltaren 1 % topical gel RxNorm: 301789 4 Gram(s) TOP TID as needed for pain as needed 09/25/2016 09/19/2017 Inactive hydrocodone 10 mg-acetaminophen 325 mg tablet RxNorm: 667878 1 Tablet(s) PO Q6 as needed 09/09/2016 10/07/2016 Inactive Voltaren 1 % topical gel RxNorm: 366245 1 Application TOP TID 09/08/2016 09/24/2016 Inactive Aricept 5 mg tablet RxNorm: 938658 1 Tablet(s) PO daily 201612/06/2016 Inactive Cymbalta 30 mg capsule,delayed release RxNorm: 719123 1 Capsule(s) PO daily 09/08/2016 12/06/2016 Inactive losartan 50 mg tablet RxNorm: 692145 1 Tablet(s) PO daily 201610/07/2016 Inactive clopidogrel 75 mg tablet RxNorm: 046019 75 MG PO DAILY 201609/20/2017 Inactive hydrocodone 10 mg-acetaminophen 325 mg tablet RxNorm: 606331 1 Tablet(s) PO Q6 as needed 08/15/2016 09/08/2016 Inactive hydrocodone 10 mg-acetaminophen 325 mg tablet RxNorm: 747508 1 Tablet(s) PO Q6 as needed 07/18/2016 08/14/2016 Inactive Cymbalta 30 mg capsule,delayed release RxNorm: 897674 1 Capsule(s) PO daily 07/03/2016 09/07/2016 Inactive Aricept 5 mg tablet RxNorm: 626601 1 Tablet(s) PO daily 201608/01/2016 Inactive Namenda XR 28 mg capsule sprinkle,extended release RxNorm: 660679 1 Capsule(s) PO daily 07/03/2016 05/07/2017 Inactive diazepam 5 mg tablet RxNorm: 464451 Tablet(s) PO daily as needed TAKE 1/2 TO 1 TABLET BY MOUTH DAILY NEEDED FOR ANXIETY 06/25/2016 03/06/2017 Inactive hydrocodone 10 mg-acetaminophen 325 mg tablet RxNorm: 001365 1 Tablet(s) PO Q6 as needed 06/19/2016 07/17/2016 Inactive Namenda XR 28 mg capsule sprinkle,extended release RxNorm: 294879 1 Capsule(s) PO daily 06/19/2016 07/02/2016 Inactive gabapentin 100 mg capsule RxNorm: 522080 1 Capsule(s) PO TID 03/08/2017 Inactive hydrocodone 10 mg-acetaminophen 325 mg tablet RxNorm: 920106 1 Tablet(s) PO Q6 as needed 05/27/2016 06/18/2016 Inactive diazepam 5 mg tablet RxNorm: 374426 Tablet(s) TAKE 1/2 TO 1 TABLET BY MOUTH DAILY NEEDED FOR ANXIETY 05/15/20162016 Inactive hydrocodone 10 mg-acetaminophen 325 mg tablet RxNorm: 973982 1 Tablet(s) PO Q6 as needed 04/29/2016 05/26/2016 Inactive omeprazole 40 mg capsule,delayed release RxNorm: 893678 Capsule(s) 1 CAPSULE(S) PO DAILY 04/28/2016 03/08/2017 Inactive diazepam 5 mg tablet RxNorm: 276575 Tablet(s) TAKE 1/2 TO 1 TABLET BY MOUTH DAILY NEEDED FOR ANXIETY 04/14/20162017 Inactive hydrocodone 10 mg-acetaminophen 325 mg tablet RxNorm: 177988 1 Tablet(s) PO Q6 as needed 04/01/2016 04/28/2016 Inactive Namenda XR 28 mg capsule sprinkle,extended release RxNorm: 250182 1 Capsule(s) PO daily 03/13/2016 06/18/2016 Inactive Namenda XR 28 mg capsule sprinkle,extended release RxNorm: 153825 1 Capsule(s) PO daily 03/12/2016 03/12/2016 Inactive diazepam 5 mg tablet RxNorm: 575066 Tablet(s) TAKE 1/2 TO 1 TABLET BY MOUTH DAILY NEEDED FOR ANXIETY 02/25/20162017 Inactive Namenda XR 28 mg capsule sprinkle,extended release RxNorm: 466507 1 Capsule(s) PO daily 02/04/2016 03/11/2016 Inactive hydrocodone 10 mg-acetaminophen 325 mg tablet RxNorm: 646516 1 Tablet(s) PO Q6 as needed 02/04/2016 03/04/2016 Inactive omeprazole 40 mg capsule,delayed release RxNorm: 065486 1 CAPSULE(S) PO DAILY 01/23/2016 04/27/2016 Inactive [SAVINGS FOR NON-COVERED DRUGS -- BIN:[id number], PCN: [id number], Group: XXXXX, ID# XXXXXXX, Questions: . THIS IS NOT INSURANCE.] sertraline 50 mg tablet RxNorm: 319285 TAKE 1 1/2 TABLET BY MOUTH ONCE DAILY 01/10/2016 03/08/2017 Inactive hydrocodone 10 mg-acetaminophen 325 mg tablet RxNorm: 221626 1 Tablet(s) PO Q6 as needed 01/07/2016 02/03/2016 Inactive diazepam 5 mg tablet RxNorm: 457695 Tablet(s) TAKE 1/2 TO 1 TABLET BY MOUTH DAILY NEEDED FOR ANXIETY 12/17/20152017 Inactive hydrocodone 10 mg-acetaminophen 325 mg tablet RxNorm: 292095 1 Tablet(s) PO Q6 as needed 12/10/2015 01/06/2016 Inactive gabapentin 100 mg capsule RxNorm: 842131 1 Capsule(s) PO TID 03/11/2016 Inactive gabapentin 100 mg capsule RxNorm: 467394 1 Capsule(s) PO TID 11/12/2015 Inactive hydrocodone 10 mg-acetaminophen 325 mg tablet RxNorm: 214082 1 Tablet(s) PO Q6 as needed 11/12/2015 12/09/2015 Inactive hydrocodone 10 mg-acetaminophen 325 mg tablet RxNorm: 455289 1 Tablet(s) PO Q6 as needed 10/16/2015 11/11/2015 Inactive hydrocodone 10 mg-acetaminophen 325 mg tablet RxNorm: 257984 1 Tablet(s) PO Q6 as needed 09/17/2015 10/15/2015 Inactive hydrocodone 10 mg-acetaminophen 325 mg tablet RxNorm: 777402 1 Tablet(s) PO Q6 as needed 08/16/2015 09/16/2015 Inactive diazepam 5 mg tablet RxNorm: 738734 Tablet(s) TAKE 1/2 TO 1 TABLET BY MOUTH DAILY NEEDED FOR ANXIETY 07/30/20152015 Inactive diazepam 5 mg tablet RxNorm: 136598 Tablet(s) TAKE 1/2 TO 1 TABLET BY MOUTH DAILY NEEDED FOR ANXIETY 07/27/20152015 Inactive hydrocodone 10 mg-acetaminophen 325 mg tablet RxNorm: 416168 1 Tablet(s) PO Q6 as needed 07/19/2015 08/15/2015 Inactive omeprazole 40 mg capsule,delayed release RxNorm: 477396 1 CAPSULE(S) PO DAILY 07/19/2015 01/14/2016 Inactive [SAVINGS FOR NON-COVERED DRUGS -- BIN:[id number], PCN: [id number], Group: XXXXX, ID# [id number], Questions: . THIS IS NOT INSURANCE.] hydrocodone 10 mg-acetaminophen 325 mg tablet RxNorm: 880468 1 Tablet(s) PO Q6 as needed 06/20/2015 07/18/2015 Inactive baclofen 10 mg tablet RxNorm: 339638 1 Tablet(s) PO TID 201506/07/2015 Inactive baclofen 10 mg tablet RxNorm: 596820 1 Tablet(s) PO TID 201507/07/2015 Inactive diazepam 5 mg tablet RxNorm: 117602 TAKE 1/2 TO 1 TABLET BY MOUTH DAILY NEEDED FOR ANXIETY 05/29/2015 04/12/2018 Inactive sertraline 50 mg tablet RxNorm: 481935 1.5 Tablet(s) PO daily 05/02/2015 10/28/2015 Inactive sertraline 50 mg tablet RxNorm: 149544 1.5 Tablet(s) PO daily 05/01/2015 05/01/2015 Inactive patient to call when needed diazepam 5 mg tablet RxNorm: 472713 1/2-1 Tablet(s) PO QDAY PRN 05/01/2015 05/29/2015 Inactive hydrocodone 10 mg-acetaminophen 325 mg tablet RxNorm: 616485 1 Tablet(s) PO Q6 as needed 04/23/2015 06/19/2015 Inactive hydrocodone 10 mg-acetaminophen 325 mg tablet RxNorm: 992906 1 Tablet(s) PO Q6 as needed 03/26/2015 04/22/2015 Inactive hydrocodone 10 mg-acetaminophen 325 mg tablet RxNorm: 511638 1 Tablet(s) PO Q6 as needed 02/26/2015 03/25/2015 Inactive Lyrica 50 mg capsule RxNorm: 498261 1 Capsule(s) PO TID 201402/03/2016 Inactive Lyrica 50 mg capsule RxNorm: 966268 1 Capsule(s) PO TID 201402/05/2015 Inactive Fish Oil [place] 3-6-9 300 mg-1,000 mg capsule,delayed release RxNorm: 1 Capsule(s) PO BID 01/30/2015 08/10/2016 Inactive diazepam 5 mg tablet RxNorm: 351107 1 Tablet(s) PO Q8 as needed 01/30/2015 04/30/2015 Inactive hydrocodone 10 mg-acetaminophen 325 mg tablet RxNorm: 138767 1 Tablet(s) PO Q6 as needed 01/19/2015 02/25/2015 Inactive sertraline 50 mg tablet RxNorm: 363363 1 Tablet(s) PO daily 04/30/2015 Inactive hydrocodone 10 mg-acetaminophen 325 mg tablet RxNorm: 487012 1 Tablet(s) PO Q6 as needed 12/12/2014 01/18/2015 Inactive hydrocodone 10 mg-acetaminophen 325 mg tablet RxNorm: 158053 1 Tablet(s) PO Q6 as needed 11/09/2014 12/11/2014 Inactive diazepam 5 mg tablet RxNorm: 728061 1 Tablet(s) PO Q8 as needed 11/01/2014 01/29/2015 Inactive omeprazole 40 mg capsule,delayed release RxNorm: 181050 1 Capsule(s) PO daily 10/02/2014 04/30/2015 Inactive [SAVINGS FOR NON-COVERED DRUGS -- BIN:135207, PCN: ASPROD1, Group: XXXXX, ID# [id number], Questions: . THIS IS NOT INSURANCE.] omeprazole 40 mg capsule,delayed release RxNorm: 054190 1 Capsule(s) PO daily 10/02/2014 10/01/2014 Inactive melatonin 3 mg tablet RxNorm: 199161 1 Tablet(s) PO QHS No Start Date Active Vitamin D3 oral RxNorm : 2418 oral No Start Date Active diclofenac sodium 75 mg tablet,delayed release RxNorm: 382160 2 Tablet(s) PO daily No Start Date 04/30/2015 Inactive diazepam 5 mg tablet RxNorm: 317866 1 Tablet(s) PO TID No Start Date 10/31/2014 Inactive Multi Vitamin oral RxNorm: oral No Start Date 03/08/2017 Inactive Flonase nasal RxNorm: 85086 nasal No Start Date 03/08/2017 Inactive gabapentin 100 mg tablet RxNorm: 421357 1 Tablet(s) PO TID No Start Date 02/06/2015 Inactive hydrocodone 10 mg-acetaminophen 325 mg tablet RxNorm: 520968 1 Tablet(s) PO QID No Start Date 11/08/2014 Inactive Zithromax Z-Myles 250 mg tablet RxNorm: 505178 1 Tablet(s) PO UD No Start Date 06/24/2017 Inactive clopidogrel 75 mg tablet RxNorm: 424533 1 Tablet(s) PO daily No Start Date 09/03/2016 Inactive atorvastatin 40 mg tablet RxNorm: 543098 1 Tablet(s) PO daily No Start Date 09/20/2017 Inactive sertraline 50 mg tablet RxNorm: 234343 1 Tablet(s) PO daily No Start Date 01/04/2015 Inactive Medication Administered No Medication Administered data Immunizations Vaccine Codes Date Status Influenza CVX: 141 02/22/2018 completed Influenza CVX: 141 03/18/2017 completed Influenza CVX: 141 06/16/2016 completed Influenza CVX: 141 03/26/2015 completed Influenza CVX: 141 02/15/2014 completed Assessments Condition Codes Effective Dates Generalized anxiety disorder ICD-10: F41.1 ICD-9: 300.00 05/05/2018 Dementia in other diseases classified elsewhere without behavioral disturbance ICD-10: F02.80 ICD-9: 294.10 05/05/2018 Major depressive disorder, recurrent, mild ICD-10: F33.0 ICD-9: 296.31 05/05/2018 Other insomnia ICD-10: G47.09 ICD-9: 327.09 [...] 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 ICD-9: 728.71 03/26/2015 Hyperlipidemia ICD-9: 272.4 01/30/2015 ALLERGIC RHINITIS ICD-9: 477.9 2014 Chronic pain syndrome ICD-9: 338.4 2014 Elevated blood sugar ICD-9: 790.29 2014 Peripheral neuropathy ICD-9: 356.9 2014 OSTEOARTH NOS-UNSPEC ICD-9: 715.90 2014 DEPRESSIVE DISORDER NEC ICD-9: 311 2014 ESOPHAGEAL REFLUX ICD-9: 530.81 2014 Reason For Visit Reason For Visit [...] Item Item Code Result Date Comp Metabolic Cjc686 NA 141 mEq/L 05/06/2018 Comp Metabolic Bwv977 K 4.0 mEq/L 05/06/2018 Comp Metabolic Ydn029 CL 105 mEq/L 05/06/2018 Comp Metabolic Iks416 CO2 29.0 mEq/L 05/06/2018 Comp Metabolic Ymw928 ANION GAP 11 05/06/2018 Comp Metabolic Pqs125 GLUCOSE 103 mg/dL 05/06/2018 Comp Metabolic Dsu623 Creat 0.8 mg/dL 05/06/2018 Comp Metabolic Fze645 eGFR 80 ml/min/1.73m2 05/06/2018 Comp Metabolic Fsq327 BUN 23 mg/dL 05/06/2018 Comp Metabolic Qkl892 B/C Ratio 30.3 Ratio 05/06/2018 Comp Metabolic Qhy390 CALCIUM 9.2 mg/dL 05/06/2018 Comp Metabolic Tmp088 ALK PHOS 65 U/L 05/06/2018 Comp Metabolic Cqd321 AST(SGOT) 18 U/L 05/06/2018 Comp Metabolic Uio115 ALT(SGPT) 15 U/L 05/06/2018 Comp Metabolic Jaz272 BILI T 0.5 mg/dL 05/06/2018 Comp Metabolic Gqo192 ALBUMIN 4.4 g/dL 05/06/2018 Comp Metabolic Zop075 TPRO 6.4 g/dL 05/06/2018 Comp Metabolic Dgs432 GLOB 2.0 g/dL 05/06/2018 Comp Metabolic Eby969 A/G Ratio 2.2 Ratio 05/06/2018 Comp Metabolic Jtw836 Osmo 285 mOsmo 05/06/2018 Cbc With Differential [...] 31.0 pg 05/05/2018 Cbc With Differential Ord2 [place]% 7.4 % 05/05/2018 Cbc With Differential Ord2 [...] 2.60 K/ul 05/05/2018 Cbc With Differential Ord2 [place] ABS# 0.7 K/ul 05/05/2018 Cbc With Differential Ord2 Eos ABS# 0.1 K/ul 05/05/2018 Cbc With Differential Ord2 Baso ABS# 0.0 K/ul 05/05/2018 Sed Rate Ord21 ESR 2 mm/hr 11/04/2017 C-Reactive Protein Qnt Crqnt CRP 0.1 mg/dl 11/04/2017 Comp Metabolic Vsy102 NA 143 mEq/L 08/28/2017 Comp Metabolic Scc538 K 4.2 mEq/L 08/28/2017 Comp Metabolic Fxi294 CL 108 mEq/L 08/28/2017 Comp Metabolic Wyo676 CO2 28.0 mEq/L 08/28/2017 Comp Metabolic Rht347 ANION GAP 11 08/28/2017 Comp Metabolic Avq908 GLUCOSE 89 mg/dL 08/28/2017 Comp Metabolic Dbo702 Creat 0.8 mg/dL 08/28/2017 Comp Metabolic Wkj106 eGFR 78 ml/min/1.73m2 08/28/2017 Comp Metabolic Xfs730 BUN 19 mg/dL 08/28/2017 Comp Metabolic Xqw151 B/C Ratio 24.4 Ratio 08/28/2017 Comp Metabolic Ewh563 CALCIUM 8.4 mg/dL 08/28/2017 Comp Metabolic Cuv515 ALK PHOS 52 U/L 08/28/2017 Comp Metabolic Dbj060 AST(SGOT) 20 U/L 08/28/2017 Comp Metabolic Nbe400 ALT(SGPT) 14 U/L 08/28/2017 Comp Metabolic Aee333 BILI T 0.5 mg/dL 08/28/2017 Comp Metabolic Kfy515 ALBUMIN 4.0 g/dL 08/28/2017 Comp Metabolic Vgw204 TPRO 5.9 g/dL 08/28/2017 Comp Metabolic Tew823 GLOB 1.9 g/dL 08/28/2017 Comp Metabolic Rxm221 A/G Ratio 2.1 Ratio 08/28/2017 Comp Metabolic Lgn165 Osmo 287 mOsmo 08/28/2017 Cbc With Differential [...] 30.9 pg 08/28/2017 Cbc With Differential Ord2 [place]% 5.9 % 08/28/2017 Cbc With Differential Ord2 MCHC 33.1 pg 08/28/2017 Cbc With Differential Ord2 Eos% 0.9 % 08/28/2017 Cbc With Differential Ord2 Baso% 0.5 % 08/28/2017 Cbc With Differential Ord2 PLT 190 K/ul 08/28/2017 Cbc With Differential Ord2 Neut ABS# 4.66 K/ul 08/28/2017 Cbc With Differential Ord2 RDW 15.4 % 08/28/2017 Cbc With Differential Ord2 Lymph ABS# 2.28 K/ul 08/28/2017 Cbc With Differential Ord2 [place] ABS# 0.4 K/ul 08/28/2017 Cbc With Differential [...] 93.5 fl 03/09/2017 Cbc With Differential Ord2 [place]% 6.1 % 03/09/2017 Cbc With Differential Ord2 MCH 31.7 pg 03/09/2017 Cbc With Differential Ord2 MCHC 33.9 pg 03/09/2017 Cbc With Differential Ord2 Eos% 1.2 % 03/09/2017 Cbc With Differential Ord2 Baso% 0.3 % 03/09/2017 Cbc With Differential Ord2 PLT 224 K/ul 03/09/2017 Cbc With Differential Ord2 RDW 13.6 % 03/09/2017 Cbc With Differential Ord2 Neut ABS# 3.82 K/ul 03/09/2017 Cbc With Differential Ord2 Lymph ABS# 1.78 K/ul 03/09/2017 Cbc With Differential Ord2 [place] ABS# 0.4 K/ul 03/09/2017 Cbc With Differential Ord2 Eos ABS# 0.1 K/ul 03/09/2017 Cbc With Differential Ord2 Baso ABS# 0.0 K/ul 03/09/2017 Tsh Ord6 hTSH II 0.87 uIU/mL 03/09/2017 %Hba1C Lnz941 % HbA1c 19615-2 4.9 % 03/09/2017 %Hba1C Gcq502 Gluc Ave 94 mg/dL 03/09/2017 Comp Metabolic Mdj957 NA 141 mEq/L 03/09/2017 Comp Metabolic Yta163 K 3.8 mEq/L 03/09/2017 Comp Metabolic Gfk749 CL 105 mEq/L 03/09/2017 Comp Metabolic Mmz497 CO2 29.0 mEq/L 03/09/2017 Comp Metabolic Bee226 ANION GAP 11 03/09/2017 Comp Metabolic Rfj971 GLUCOSE 98 mg/dL 03/09/2017 Comp Metabolic Gxi377 Creat 0.7 mg/dL 03/09/2017 Comp Metabolic Bhh963 eGFR 93 ml/min/1.73m2 03/09/2017 Comp Metabolic Tfe872 BUN 11 mg/dL 03/09/2017 Comp Metabolic Yli938 B/C Ratio 16.4 Ratio 03/09/2017 Comp Metabolic Jxu974 CALCIUM 9.5 mg/dL 03/09/2017 Comp Metabolic Zlk183 ALK PHOS 90 U/L 03/09/2017 Comp Metabolic Znu000 AST(SGOT) 21 U/L 03/09/2017 Comp Metabolic Qou586 ALT(SGPT) 15 U/L 03/09/2017 Comp Metabolic Bcy242 BILI T 0.6 mg/dL 03/09/2017 Comp Metabolic Xkj201 ALBUMIN 4.5 g/dL 03/09/2017 Comp Metabolic Xgq555 TPRO 6.4 g/dL 03/09/2017 Comp Metabolic Ynj879 GLOB 1.9 g/dL 03/09/2017 Comp Metabolic Qgn824 A/G Ratio 2.3 Ratio 03/09/2017 Comp Metabolic Izz984 Osmo 281 mOsmo 03/09/2017 Comp Metabolic Jwx957 NA 142 mEq/L 09/03/2016 Comp Metabolic Zrp956 K 3.9 mEq/L 09/03/2016 Comp Metabolic Lmb345 CL 107 mEq/L 09/03/2016 Comp Metabolic Miz081 CO2 26.0 mEq/L 09/03/2016 Comp Metabolic Uoz526 ANION GAP 13 09/03/2016 Comp Metabolic Lrh266 GLUCOSE 107 mg/dL 09/03/2016 Comp Metabolic Bcl919 Creat 0.7 mg/dL 09/03/2016 Comp Metabolic Pqj984 eGFR 85 ml/min/1.73m2 09/03/2016 Comp Metabolic Ept784 BUN 16 mg/dL 09/03/2016 Comp Metabolic Ldu488 B/C Ratio 21.9 Ratio 09/03/2016 Comp Metabolic Ccy599 CALCIUM 8.8 mg/dL 09/03/2016 Comp Metabolic Myo114 ALK PHOS 51 U/L 09/03/2016 Comp Metabolic Exa976 AST(SGOT) 24 U/L 09/03/2016 Comp Metabolic Kbr163 ALT(SGPT) 20 U/L 09/03/2016 Comp Metabolic Tkt613 BILI T 0.7 mg/dL 09/03/2016 Comp Metabolic Hsw475 ALBUMIN 4.1 g/dL 09/03/2016 Comp Metabolic Ble402 TPRO 6.1 g/dL 09/03/2016 Comp Metabolic Ftu898 GLOB 2.0 g/dL 09/03/2016 Comp Metabolic Hxn302 A/G Ratio 2.1 Ratio 09/03/2016 Comp Metabolic Qdz624 Osmo 285 mOsmo 09/03/2016 Cbc With Differential Ord2 WBC 6.16 K/ul 09/03/2016 Cbc With Differential Ord2 RBC 4.32 M/ul 09/03/2016 Cbc With Differential Ord2 HGB 13.1 g/dl 09/03/2016 Cbc With Differential Ord2 Neut% 66.8 % 09/03/2016 Cbc With Differential Ord2 HCT 38.8 % 09/03/2016 Cbc With Differential Ord2 Lymph% 24.8 % 09/03/2016 Cbc With Differential Ord2 MCV 89.8 fl 09/03/2016 Cbc With Differential Ord2 MCH 30.3 pg 09/03/2016 Cbc With Differential Ord2 [place]% 6.5 % 09/03/2016 Cbc With Differential Ord2 [...] 1.53 K/ul 09/03/2016 Cbc With Differential Ord2 [place] ABS# 0.4 K/ul 09/03/2016 Cbc With Differential [...] Ord15 CALCIUM 9.1 mg/dL 12/21/2015 Comp Metabolic Ken267 NA 138 mEq/L 07/06/2015 Comp Metabolic Fjg685 K 3.9 mEq/L 07/06/2015 Comp Metabolic Kwm566 CL 103 mEq/L 07/06/2015 Comp Metabolic Lwc984 CO2 28.0 mEq/L 07/06/2015 Comp Metabolic Rmi567 ANION GAP 11 07/06/2015 Comp Metabolic Bxo125 GLUCOSE 114 mg/dL 07/06/2015 Comp Metabolic Iym948 Creat 0.7 mg/dL 07/06/2015 Comp Metabolic Hfw178 eGFR 97 ml/min/1.73m2 07/06/2015 Comp Metabolic Srb269 BUN 11 mg/dL 07/06/2015 Comp Metabolic Haz146 B/C Ratio 16.9 Ratio 07/06/2015 Comp Metabolic Mlf280 CALCIUM 9.1 mg/dL 07/06/2015 Comp Metabolic Peh321 ALK PHOS 57 U/L 07/06/2015 Comp Metabolic Egv768 AST(SGOT) 26 U/L 07/06/2015 Comp Metabolic Vgr246 ALT(SGPT) 17 U/L 07/06/2015 Comp Metabolic Gbr300 BILI T 0.6 mg/dL 07/06/2015 Comp Metabolic Msu401 ALBUMIN 4.6 g/dL 07/06/2015 Comp Metabolic Djm829 TPRO 6.7 g/dL 07/06/2015 Comp Metabolic Okp662 GLOB 2.1 g/dL 07/06/2015 Comp Metabolic Ybz873 A/G Ratio 2.2 Ratio 07/06/2015 Comp Metabolic Ncv591 Osmo 276 mOsmo 07/06/2015 Lipid Ord30 CHOL 228 mg/dL 07/06/2015 Lipid Ord30 HDL 48.0 mg/dl 07/06/2015 Lipid Ord30 TRIG 176 mg/dL 07/06/2015 Lipid Ord30 LDL 145 mg/dL 07/06/2015 Lipid Ord30 C/HDL 4.8 Ratio 07/06/2015 Cbc With Differential Ord2 WBC 7.1 K/uL [...] With Differential Ord2 RDW 16.8 % 05/01/2015 Comp Metabolic Zyr888 NA 141 mEq/L 05/01/2015 Comp Metabolic Usi401 K 4.0 mEq/L 05/01/2015 Comp Metabolic Joe309 CL 106 mEq/L 05/01/2015 Comp Metabolic Dxd920 CO2 26.0 mEq/L 05/01/2015 Comp Metabolic Nzt855 ANION GAP 13 05/01/2015 Comp Metabolic Gln626 GLUCOSE 124 mg/dL 05/01/2015 Comp Metabolic Cpt584 Creat 0.8 mg/dL 05/01/2015 Comp Metabolic Lia505 eGFR 79 ml/min/1.73m2 05/01/2015 Comp Metabolic Ril021 BUN 13 mg/dL 05/01/2015 Comp Metabolic Cxb736 B/C Ratio 16.7 Ratio 05/01/2015 Comp Metabolic Bdc860 CALCIUM 9.3 mg/dL 05/01/2015 Comp Metabolic Qlw123 ALK PHOS 54 U/L 05/01/2015 Comp Metabolic Pfs157 AST(SGOT) 21 U/L 05/01/2015 Comp Metabolic Dqa184 ALT(SGPT) 14 U/L 05/01/2015 Comp Metabolic Lvq003 BILI T 0.5 mg/dL 05/01/2015 Comp Metabolic Hgd218 ALBUMIN 4.5 g/dL 05/01/2015 Comp Metabolic Edh102 TPRO 6.4 g/dL 05/01/2015 Comp Metabolic Cvo185 GLOB 1.9 g/dL 05/01/2015 Comp Metabolic Xyc831 A/G Ratio 2.4 Ratio 05/01/2015 Comp Metabolic Gjb746 Osmo 283 mOsmo 05/01/2015 Tsh Ord6 hTSH II 0.74 uIU/mL 05/01/2015 %Hba1C Pzz537 % HbA1c 48803-9 5.4 % 01/29/2015 %Hba1C Emc706 Gluc Ave 108 mg/dL 01/29/2015 Cbc With [...] Differential Ord2 RDW 15.5 % 01/26/2015 B12 Glp585 B12 669.00 pg/ml 01/26/2015 Comp Metabolic Msp829 NA 137 mEq/L 01/26/2015 Comp Metabolic Iit612 K 4.0 mEq/L 01/26/2015 Comp Metabolic Hpa712 CL 104 mEq/L 01/26/2015 Comp Metabolic Xuo937 CO2 27.0 mEq/L 01/26/2015 Comp Metabolic Sav165 ANION GAP 10 01/26/2015 Comp Metabolic Uzh315 GLUCOSE 131 mg/dL 01/26/2015 Comp Metabolic Cck946 Creat 0.8 mg/dL 01/26/2015 Comp Metabolic Uch730 eGFR 77 ml/min/1.73m2 01/26/2015 Comp Metabolic Cns971 BUN 16 mg/dL 01/26/2015 Comp Metabolic Ftw664 B/C Ratio 20.0 Ratio 01/26/2015 Comp Metabolic Rfx909 CALCIUM 9.1 mg/dL 01/26/2015 Comp Metabolic Ctn059 ALK PHOS 66 U/L 01/26/2015 Comp Metabolic Xgt601 AST(SGOT) 24 U/L 01/26/2015 Comp Metabolic Kuu047 ALT(SGPT) 20 U/L 01/26/2015 Comp Metabolic Cum901 BILI T 0.4 mg/dL 01/26/2015 Comp Metabolic Imo924 ALBUMIN 4.2 g/dL 01/26/2015 Comp Metabolic Wpy925 TPRO 6.4 g/dL 01/26/2015 Comp Metabolic Rtf710 GLOB 2.2 g/dL 01/26/2015 Comp Metabolic Hkz854 A/G Ratio 1.9 Ratio 01/26/2015 Comp Metabolic Ydz051 Osmo 277 mOsmo 01/26/2015 Tsh Ord6 hTSH II 0.85 uIU/mL 01/26/2015 Lipid Ord30 CHOL 221 mg/dL 01/26/2015 Lipid Ord30 HDL 37.0 mg/dl 01/26/2015 Lipid Ord30 TRIG 274 mg/dL 01/26/2015 Lipid Ord30 LDL 129 mg/dL 01/26/2015 Lipid Ord30 C/HDL 6.0 Ratio 01/26/2015 Review of Systems System Result Effective [...] clear 01/30/2015 None Full Exam - General 1995 Ears/Nose/Throat [...] NO PRSV 4 BLANCA 3 YRS+ CPT-4: 85327 02/22/2018 ADMIN INFLUENZA VIRUS VAC CPT-4: G0008 03/18/2017 FLU VACC PRSV FREE INC ANTIG CPT-4: 49080 03/18/2017 INITIAL PREVENTIVE EXAM CPT-4: G0402 07/06/2015 IIV4 FLU VACC NO PRESERV ID Formatting Model/CDA Sections, Assigned to SNOMED CT: 57470503 CPT-4: 20266Vlhfgyz 03/26/2015 IMMUNIZATION ADMIN CPT -4: 84262 03/26/2015 Vital Signs Date Vital 05/05/2018 Blood Pressure 1: 120/80 Code : 8480-6 BMI: 29.1 Code : 59059-1 Heart Rate 1 : 76 bpm Height: 5'1" SpO2: 97% Weight: 154 lbs 02/22/2018 Blood Pressure 1: 140/70 Code : 8480-6 BMI: 26.3 Code : 70609-2 Heart Rate 1 : 60 bpm Height: 5'1" SpO2: 97% Weight: 139 lbs 12/29/2017 Blood Pressure 1: 110/58 Code : 8480-6 BMI: 23.8 Code : 76844-5 Heart Rate 1 : 56 bpm Height: 5'1" SpO2: 98% Weight: 126 lbs 10/28/2017 Blood Pressure 1: 96/68 Code : 8480-6 BMI: 21.7 Code : 84798-3 Heart Rate 1 : 68 bpm Height: 5'1" SpO2: 98% Weight: 115 lbs 09/23/2017 Blood Pressure 1: 134/72 Code : 8480-6 BMI: 22.5 Code : 00010-5 Heart Rate 1 : 72 bpm Height: 5'1" SpO2: 97% Weight: 119 lbs 03/18/2017 Blood Pressure 1: 140/72 Code : 8480-6 BMI: 21.5 Code : 61204-1 Heart Rate 1 : 64 bpm Height: 5'1" SpO2: 96% Weight: 114 lbs 03/09/2017 Blood Pressure 1: 120/72 Code : 8480-6 BMI: 21.5 Code : 99902-8 Heart Rate 1 : 75 bpm Height: 5'1" SpO2: 97% Weight: 114 lbs 12/09/2016 Blood Pressure 1: 130/76 Code : 8480-6 BMI: 23.8 Code : 24169-7 Heart Rate 1 : 68 bpm Height: 5'1" SpO2: 98% Weight: 126 lbs 09/08/2016 Blood Pressure 1: 162/80 Code : 8480-6 Blood Pressure 2: 145/90 Code: 8480-6 BMI: 24.7 Code: 48733-3 Heart Rate 1: 77 bpm Height: 5'1" SpO2: 97% Weight: 130 lbs 8 oz 08/11/2016 Blood Pressure 1: 130/80 Code : 8480-6 BMI: 25.9 Code : 62333-8 Heart Rate 1 : 62 bpm Height: 5'1" SpO2: 97% Weight: 137 lbs 07/03/2016 Blood Pressure 1: 134/74 Code : 8480-6 BMI: 26.8 Code : 13546-1 Heart Rate 1 : 74 bpm Height: 5'1" SpO2: 97% Weight: 142 lbs 06/19/2016 Blood Pressure 1: 118/66 Code : 8480-6 Heart Rate 1: 72 bpm SpO2: 96% Weight: 142 lbs 02/04/2016 Blood Pressure 1: 130/80 Code : 8480-6 BMI: 27.2 Code : 01621-6 Heart Rate 1 : 76 bpm Height: 5'1" SpO2: 96% Weight: 144 lbs 01/07/2016 Blood Pressure 1: 136/64 Code : 8480-6 BMI: 27.6 Code : 54539-3 Heart Rate 1 : 73 bpm Height: 5'1" SpO2: 987% Weight: 146 lbs 12/17/2015 Blood Pressure 1: 128/86 Code : 8480-6 BMI: 27.0 Code : 15255-8 Heart Rate 1 : 59 bpm Height: 5'1" SpO2: 96% Weight: 143 lbs 10/16/2015 Blood Pressure 1: 122/78 Code : 8480-6 BMI: 25.7 Code : 51676-8 Heart Rate 1 : 71 bpm Height: 5'1" SpO2: 96% Weight: 136 lbs 08/16/2015 Blood Pressure 1: 138/88 Code : 8480-6 BMI: 27.0 Code : 33717-1 Heart Rate 1 : 75 bpm Height: 5'1" SpO2: 98% Weight: 143 lbs 07/06/2015 Blood Pressure 1: 120/72 Code : 8480-6 BMI: 26.5 Code : 74719-7 Heart Rate 1 : 72 bpm Height: 5'1" SpO2: 96% Weight: 140 lbs 06/07/2015 Blood Pressure 1: 152/86 Code : 8480-6 BMI: 26.1 Code : 87203-8 Heart Rate 1 : 88 bpm Height: 5'1" SpO2: 97% Weight: 138 lbs 05/01/2015 Blood Pressure 1: 120/80 Code : 8480-6 BMI: 27.0 Code : 80575-7 Heart Rate 1 : 82 bpm Height: 5'1" SpO2: 98% Temperature: 36.7 (C) / 98.0 (F) Weight: 143 lbs 03/26/2015 Blood Pressure 1: 140/80 Code : 8480-6 BMI: 28.0 Code : 97758-8 Heart Rate 1 : 69 bpm Height: 5'1" SpO2: 96% Weight: 148 lbs 03/13/2015 Blood Pressure 1: 128/70 Code : 8480-6 BMI: 28.2 Code : 05779-5 Heart Rate 1 : 76 bpm Height: 5'1" Weight: 149 lbs 01/30/2015 Blood Pressure 1: 142/68 Code : 8480-6 BMI: 28.7 Code : 42920-3 Heart Rate 1 : 86 bpm Height: 5'1" SpO2: 96% Weight: 152 lbs 10/16/2014 Blood Pressure 1: 160/88 Code : 8480-6 BMI: 28.2 Code : 17413-6 Heart Rate 1 : 66 bpm Height: [...] data Encounters Encounter Performer Location Codes Date 75673 EST. PATIENT, LEVEL III Diagnosis: Dementia in other diseases classified elsewhere without behavioral disturbance[ICD10: F02.80] Diagnosis: Major depressive disorder, recurrent, mild[ICD10: F33.0] Diagnosis: Generalized anxiety disorder[ICD10: F41.1] [facility] CPT-4: 03854 05/05/2018 19125 EST. PATIENT, LEVEL III Diagnosis: Other insomnia[ICD10: G47.09] Diagnosis: Dementia in other diseases classified elsewhere without behavioral disturbance[ICD10: F02.80] Diagnosis: Encounter for immunization[ICD10: Z23] Angelica Ochoa MD, [facility] CPT-4: 18864 02/22/2018 32387 EST. PATIENT, LEVEL IV Diagnosis: Dementia in other diseases classified elsewhere without behavioral disturbance[ICD10: F02.80] Diagnosis: Major depressive disorder, recurrent, mild[ICD10: F33.0] Diagnosis: Other allergic rhinitis[ICD10: J30.89] Angelica Ochoa MD, [facility] CPT-4: 50610 12/29/2017 ([id number]) 00692 EST. PATIENT, LEVEL IV Diagnosis: Dementia in other diseases classified elsewhere without behavioral disturbance[ICD10: F02.80] Diagnosis: Major depressive disorder, recurrent, mild[ICD10: F33.0] Diagnosis: Allergy to other foods[ICD10: Z91.018] Marylu Ochoa MD, [facility] CPT-4: 03075 10/28/2017 04886 EST. 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 PATIENT, LEVEL IV Diagnosis: Essential (primary) hypertension[ICD10: I10] Diagnosis: Major depressive disorder, recurrent, moderate[ICD10: F33.1] Diagnosis: Underweight[ICD10: R63.6] Diagnosis: Localization-related (focal) (partial) symptomatic epilepsy and epileptic syndromes with simple partial seizures, not intractable, without status epilepticus[ICD10: G40.109] Marylu Ochoa MD, [facility] CPT-4: 74790 03/09/2017 ([id number]) 77509 EST. PATIENT, LEVEL IV Diagnosis: Mixed hyperlipidemia[ICD10: E78.2] Diagnosis: Chronic pain syndrome[ICD10: G89.4] Diagnosis: Major depressive disorder, recurrent, mild[ICD10: F33.0] Marylu Ochoa MD, [facility] CPT-4: 84238 12/09/2016 ([id number]) 32633 EST. PATIENT, LEVEL IV Diagnosis: Essential (primary) hypertension[ICD10: I10] Diagnosis: Low back pain[ICD10: M54.5] Diagnosis: Personal history of transient ischemic attack (TIA), and cerebral infarction without residual deficits[ICD10: Z86.73] Diagnosis: Major depressive disorder, recurrent, moderate[ICD10: F33.1] Diagnosis: Other sleep apnea[ICD10: G47.39] Marylu Ochoa MD, [facility] CPT-4: 78155 09/08/2016 ([id number]) 46984 EST. PATIENT, LEVEL IV Diagnosis: Mixed hyperlipidemia[ICD10: E78.2] Diagnosis: Other transient cerebral ischemic attacks and related syndromes[ICD10 : G45.8] Marylu Ochoa MD, [facility] CPT-4: 41463 2016 13066 EST. PATIENT, LEVEL III Diagnosis: Chronic pain syndrome[ICD10: G89.4] Diagnosis: Low back pain[ICD10: M54.5] Diagnosis: Major depressive disorder, recurrent, mild[ICD10: F33.0] Diagnosis: Mild cognitive impairment, so stated[ICD10: G31.84] Angelica Ochoa MD, [facility] CPT-4: 77031 07/03/2016 ([id number]) 00440 EST. PATIENT, LEVEL III Diagnosis: Chronic pain syndrome[ICD10: G89.4] Donna Ochoa MD, [facility] CPT-4: 54216 06/19/2016 ([id number]) 83852 EST. PATIENT, LEVEL IV Diagnosis: Chronic pain syndrome[ICD10: G89.4] Diagnosis: Mild cognitive impairment, so stated[ICD10: G31.84] Donna Ochoa MD, [facility] CPT-4: 39190 02/04/2016 ([id number]) 37527 EST. PATIENT, LEVEL IV Diagnosis: Chronic pain syndrome[ICD10: G89.4] Diagnosis: Mild cognitive impairment, so stated[ICD10: G31.84] Diagnosis: Major depressive disorder, recurrent, mild[ICD10: F33.0] Donna Ochoa MD , [facility] CPT-4: 72624 01/07/2016 ([id number]) 19152 EST. PATIENT, LEVEL IV Diagnosis: Chronic pain syndrome[ICD10: G89.4] Diagnosis: Headache[ICD10: R51] Diagnosis: Major depressive disorder, recurrent, mild[ICD10: F33.0] Diagnosis: Mixed hyperlipidemia[ICD10: E78.2] Donna Ochoa MD, [facility] CPT-4: 95461 12/17/2015 ([id number]) 59536 EST. PATIENT, LEVEL III Diagnosis: Chronic pain syndrome[ICD10: G89.4] Diagnosis: Major depressive disorder, recurrent, mild[ICD10: F33.0] Donna Ochoa MD , [facility] CPT-4: 91979 10/16/2015 ([id number]) 09161 EST. PATIENT, LEVEL III Diagnosis: Low back pain[ICD10: M54.5] Donna Ochoa MD, [facility] CPT-4: 11765 08/16/2015 ([id number]) 92033 EST. 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 PATIENT, LEVEL IV Diagnosis: Major depressive disorder, recurrent, mild[ICD10: F33.0] Diagnosis: Chronic pain syndrome[ICD10: G89.4] Diagnosis: Other fatigue[ICD10: R53.83] Donna Ochoa MD, [facility] CPT-4: 16553 05/01/2015 ([id number]) 44293 EST. PATIENT, LEVEL II Diagnosis: Plantar fascial fibromatosis[ICD10: M72.2] Donna Ochoa MD, [facility] CPT-4: 04445 03/26/2015 ([id number]) [id number] EST. PATIENT, LEVEL III Diagnosis: Plantar fascial fibromatosis[ICD10: M72.2] Donna Ochoa MD, [facility] CPT-4: 76513 03/13/2015 ([id number] 70309 EST. PATIENT, LEVEL III Diagnosis: Hyperlipidemia[ICD9: 272.4] Diagnosis: ALLERGIC RHINITIS[ICD9: 477.9] Diagnosis: Chronic pain syndrome[ICD9: 338.4] Donna Ochoa MD, [facility] CPT-4: 43793 01/30/2015 ([id number]) OFFICE VISIT, NEW - LEVEL 4 Diagnosis: ESOPHAGEAL REFLUX[ICD9: 530.81] Diagnosis: Peripheral neuropathy[ICD9: 356.9] Diagnosis: Chronic pain syndrome[ICD9: 338.4] Diagnosis: OSTEOARTH NOS-UNSPEC[ICD9: 715.90] Diagnosis: DEPRESSIVE DISORDER NEC[ICD9: 311] Marylu Ochoa MD, [facility] CPT-4: 57286 10/16/2014 Plan of Care Planned Activity Notes [...] of treatment. 05/05/2018 Appointment: Angelica Cuba WPtel: [address] [place], [place] [address] (30 min) Complex 05/05/2018 Patient Education: Patient Medication Summary Completed 05/05/2018 Patient Education: Depression Completed 05/05/2018 Appointment: Angelica Cuba WPtel: [address] [place], [place] [phone] (15 min) Moderate 03/24/2018 Visit Plan: Insomnia [...] of treatment. 02/22/2018 Appointment: Angelica Cuba WPtel: [address] [place], [place] [phone] (15 min) Moderate 02/22/2018 Appointment: Angelica Cuba WPtel: [address] [place], [place] [phone] (15 min) Moderate 02/22/2018 Patient Education: Patient Medication Summary Completed 02/22/2018 Appointment: Angelica Cuba WPtel: [address] [place], [place] [phone] (15 min) Moderate 02/18/2018 Visit Plan: Dementia [...] Summary Completed 12/29/2017 App[facility]ment[phone] [facility] [place] (15 min) Moderate 12/23/2017 Patient Education: [...] of adalgisa. 10/28/2017 Appointment: Marylu Ochoa WPtel: [facility] (15 min) Moderate 10/28/2017 Patient Education: [...] make a follow up appointment with her service manager - The patient has been counseled to [...] acute concerns. 09/23/2017 Appointment: Angelica Cuba WPtel: [facility] [place] (30 min) Complex 09/23/2017 Patient Education: Patient Medication Summary Completed 09/23/2017 Appointment: [facility]el[facility] ([facility] min) Moderate 08/26/2017 Appointment: Angelica Cuba [facility]Ptel[facility] (30 min) Complex 06/30/2017 Referral: External, Ordering Provider Referral Initiated 05/27/2017 Care Plan: Referral Order SNOMED-CT : [id number] Pending 04/20/2017 Visit Plan: Anxiety - the [...] make a follow up appointment with her service manager - The patient has been counseled to [...] at home. 03/09/2017 Appointment: Marylu Ochoa WPtel: [phone] [facility] (30 min) Complex 03/09/2017 Patient Education: Patient Medication Summary Completed 03/09/2017 Appointment: Donna Walden WPtel: [phone] [phone] [place] (30 min) Complex 03/06/2017 Appointment: Marylu Ochoa WPtel: [phone] [facility] (15 min) Moderate 01/08/2017 Visit Plan: Hyperlipidemia [...] Completed 12/09/2016 Appointment: Marylu Ochoa WPtel: [phone] [facility] (15 min) Moderate 11/11/2016 Appointment: [facility] [place] [facility]el[phone] [facility] (30 min) Complex 10/09/2016 Visit Plan: Hypertension [...] refill namenda 09/08/2016 Appointment: Marylu Ochoa WPtel: [facility] (15 min) Moderate 09/08/2016 Patient Education: Patient Medication Summary Completed 09/08/2016 Appointment: Angelica Cuba WPtel: [facility] (30 min) Complex 08/19/2016 Visit Plan: Hyperlipidemia [...] with plavix 08/11/2016 Appointment: Marylu Ochoa WPtel: [facility] (15 min) Moderate 08/11/2016 Patient Education: Patient [...] or concerns. 07/03/2016 Appointment: Angelica Cuba WPtel: [facility] (30 min) Complex 07/03/2016 Patient Education: Patient Medication Summary Completed 07/03/2016 Care Plan: Referral Order SNOMED-CT : [id number] Pending 07/03/2016 Visit Plan: Chronic Pain Syndrome - pt has chronic pain - has been maintained on current medications, has not sought out other medications , only uses PRN pain medications as directed, and understands the consequences of over-medication. 06/19/2016 Appointment: Donna Walden WPtel: [phone] [facility] (30 min) Complex 06/19/2016 Patient Education: Patient Medication Summary Completed 06/19/2016 Appointment: Donna Walden WPtel: [phone] [phone] (30 min) Complex 06/05/2016 Visit Plan: Chronic Pain Syndrome - pt has chronic pain - has been maintained on current medications, has not sought out other medications , only uses PRN pain medications as directed, and understands the consequences of over-medication. Mild cognitive impairment-discussed with Dr Arnulfo tam 02/04/2016 Appointment: Donna Walden WPtel: [phone] [facility] (30 min) Complex 02/04/2016 Patient Education: Patient Medication Summary Completed 02/04/2016 Appointment: Donna Walden WPtel: [phone] [phone] [place] (30 min) Complex 01/14/2016 Visit Plan: [...] of testing. 01/07/2016 Appointment: Donna Walden WPtel: [phone] [phone] (15 min) Moderate 01/07/2016 Patient Education: Patient Medication Summary Completed 01/07/2016 Visit Plan: Chronic Pain Syndrome - pt has chronic pain - has been maintained on current medications, has not sought out other medications , only uses PRN pain medications as directed, and understands the consequences of over-medication. Headaches-memory loss-schedule MRI brain Hyperlipidemia- check fasting labs Cpoickbgrx-fadxtr-cz change in medications at this time 12/17/2015 Patient Education: Patient Medication Summary Completed 12/17/2015 Appointment: Donna Walden WPtel: [facility] [place] [address] (30 min) Complex 12/13/2015 Visit Plan: Chronic [...] current medications. 10/16/2015 Appointment: [phone] [phone] (30 min) Complex 10/16/2015 Patient Education: Patient [...] pain symptoms. 06/07/2015 Appointment: Marylu Ochoa WPtel: [address] [place], [place] [address] (15 min) Moderate 06/07/2015 Patient Education: Patient [...] shoes - discussed inserts and referral to medical billing assistant-patient wants to wait but will let us [...] for break through pain symptoms. 10/16/2014 Appointment: Gabri[facility]lu [facility]el[phone] [facility] [place] ([place] New Patient 10/16/2014 [...] about referring her to Dr. Dexter grullon Barco (neurologist) . Anxiety - the patient has [...] make a follow up appointment with her service manager - The patient has been counseled to [...] 90 day supply of Aricept through [facility] Add 50 mg Losartan daily for hypertension [...] patient - she is to schedule in [place] . Chronic Pain Syndrome - pt has [...] Headaches-memory loss-schedule MRI brain Hyperlipidemia-check fasting labs Huwurzedme-zarrav-oa change in medications at this time . [...] situational exposure. No change in current medications. restart cymbalta 30mg daily once the liquid [...] and to maintain independece in the home. Influenza vaccine today in the office . Plantar fasciitis- pt was educated that this is an inflammatory process, need to stretch the foot and reduce inflammation by using a frozen bottle of water or a tennis ball on the bottom of the foot at least three times a day until the pain is improved. Recommend supportive shoes -discussed inserts and referral to medical billing assistant-patient wants to wait but will let us [...] changes. Continue with current plan of treatment. Namenda starter pack . Chronic Pain Syndrome [...] and understands the consequences of over- medication. Refill Cymbalta Voltaren gel for low back pain 90 day supply of Aricept through [facility] Add 50 mg Losartan daily for hypertension [...] - 90 day supply of Aricept through [facility], refill namenda INCREASE SERTRALINE TO 1.5 TABLETS DAILY . [...] change in current medications. Fatigue-check labs . Hyperlipidemia - pt has been counseled [...] medications. TIA - continue with plavix . Chronic Depression and anxiety - the [...] make a follow up appointment with her service manager - The patient has been counseled to [...]
[2018-09-20 05:39] LABS: BASOPHILS # (AUTO) 0.1 10^3/uL (0.0-0.1); BASOPHILS % (AUTO) 1 % (0-10); EOSINOPHILS # (AUTO) 0.2 10^3/uL (0.0-0.3); EOSINOPHILS % (AUTO) 2 % (0-10); HEMATOCRIT 39 % (35-52); LYMPHOCYTES # (AUTO) 5.5 X 10^3 (1.0-4.0); LYMPHOCYTES % (AUTO) 50 % (12-44); MEAN CORPUSCULAR HEMOGLOBIN 30 PG (25-34); MEAN CORPUSCULAR HGB CONC 33 G/DL (32-36); MEAN CORPUSCULAR VOLUME 91 FL (80-99); MEAN PLATELET VOLUME 10.8 FL (7.4-10.4); MONOCYTES # (AUTO) 0.8 X 10^3 (0.0-1.0); MONOCYTES % (AUTO) 7 % (0-12); NEUTROPHILS # (AUTO) 4.5 X 10^3 (1.8-7.8); NEUTROPHILS % (AUTO) 41 % (42-75); PLATELET COUNT 236 10^3/uL (130-400); RED CELL DISTRIBUTION WIDTH 15.4 % (10.0-14.5); WHITE BLOOD COUNT 11.1 10^3/uL (4.3-11.0)
--- OUTSIDE RECORDS SUMMARY | 2018-09-20 05:42 | XMS REPORT | CCD ---
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 Name Role Phone PP Unavailable CCM Unavailable Summary Purpose Interface Exchange Insurance Providers Payer name Policy type / Coverage type Covered democrat ID Effective Begin Date Effective End Date WPS Medicare Part B Medicare Part B [id number] 2015 Unknown [facility] Medicare Part B [id number] 2015 Unknown Family history Mother Diagnosis Age [...] Unknown Retired 10/16/[address]: 079290502 Never smoker 10/16/[address]: 653779133 Never drinks alcohol 10/16/2014 Allergies, Adverse Reactions, [...] Start Date Stop Date Status Fill Instructions Cymbalta 30 mg capsule,delayed release RxNorm: 794817 1 CAPSULE(S) PO DAILY 05/07/2018 11/02/2018 Active hydrocodone 10 mg-acetaminophen 325 mg tablet RxNorm: 763508 1 Tablet(s) PO Q6 as needed may fill on 03-27-18 04/28/201802/2019 Active diazepam 5 mg tablet RxNorm: 495256 1/2 Tablet(s) PO QHS as needed 04/13/2018 06/11/2018 Active hydrocodone 10 mg-acetaminophen 325 mg tablet RxNorm: 694343 1 Tablet(s) PO Q6 as needed may fill on 03-27-18 03/22/201808/2017 Inactive Aricept 10 mg tablet RxNorm: 485025 1 TABLET(S) PO DAILY 201707/12/2018 Active hydrocodone 10 mg-acetaminophen 325 mg tablet RxNorm: 819798 1 Tablet(s) PO Q6 as needed 02/26/2018 03/21/2018 Inactive diazepam 5 mg tablet RxNorm: 691164 1/2 Tablet(s) PO QHS as needed 02/22/2018 03/22/2018 Inactive hydrocodone 10 mg-acetaminophen 325 mg tablet RxNorm: 968482 1 Tablet(s) PO Q6 as needed 02/05/2018 02/25/2018 Inactive levetiracetam 500 mg tablet RxNorm: 683041 1 TABLET(S) PO BID 01/07/2018 04/06/2018 Inactive pt to finish out supply of liquid then start on tablets hydrocodone 10 mg-acetaminophen 325 mg tablet RxNorm: 967667 1 Tablet(s) PO Q6 as needed 12/29/2017 01/27/2018 Inactive hydrocodone 10 mg-acetaminophen 325 mg tablet RxNorm: 029222 1 Tablet(s) PO Q6 as needed 12/10/2017 12/28/2017 Inactive Zyrtec 10 mg tablet RxNorm: 5799557 1 Tablet(s) PO QAM for allergies 10/28/2017 05/25/2018 Active Zantac 75 mg tablet RxNorm: 060902 1 Tablet(s) PO BID 201702/24/2018 Inactive Aricept 10 mg tablet RxNorm: 693614 1 TABLET(S) PO DAILY 201702/23/2018 Inactive Cymbalta 30 mg capsule,delayed release RxNorm: 102661 1 Capsule(s) PO daily 10/22/2017 05/06/2018 Inactive hydrocodone 10 mg-acetaminophen 325 mg tablet RxNorm: 174354 1 Tablet(s) PO Q6 as needed 10/20/2017 11/18/2017 Inactive Voltaren 1 % topical gel RxNorm: 580827 4 Gram(s) TOP TID as needed for pain as needed 09/23/2017 09/17/2018 Active levetiracetam 500 mg tablet RxNorm: 031243 1 TABLET(S) PO BID 09/21/2017 10/20/2017 Inactive pt to finish out supply of liquid then start on tablets hydrocodone 10 mg-acetaminophen 325 mg tablet RxNorm: 537715 1 Tablet(s) PO Q6 as needed 08/27/2017 09/25/2017 Inactive Aricept 10 mg tablet RxNorm: 719893 1 Tablet(s) PO daily 201709/16/2017 Inactive Aricept 10 mg tablet RxNorm: 111238 1 Tablet(s) PO daily 201708/17/2017 Inactive hydrocodone 10 mg-acetaminophen 325 mg tablet RxNorm: 866742 1 Tablet(s) PO Q6 as needed 07/28/2017 08/26/2017 Inactive Zithromax Z-Myles 250 mg tablet RxNorm: 051117 1 Tablet(s) PO UD 06/25/2017 09/20/2017 Inactive hydrocodone 10 mg-acetaminophen 325 mg tablet RxNorm: 855923 1 Tablet(s) PO Q6 as needed 06/17/2017 07/16/2017 Inactive Namenda XR 28 mg capsule sprinkle,extended release RxNorm: 941396 1 Capsule(s) PO daily 05/08/2017 05/02/2018 Inactive Aricept 10 mg tablet RxNorm: 819025 1 Tablet(s) PO daily 201608/05/2017 Inactive hydrocodone 10 mg-acetaminophen 325 mg tablet RxNorm: 953634 1 Tablet(s) PO Q6 as needed 05/05/2017 06/03/2017 Inactive hydrocodone 10 mg-acetaminophen 325 mg tablet RxNorm: 798867 1 Tablet(s) PO Q6 as needed 04/06/2017 05/04/2017 Inactive diazepam 2 mg tablet RxNorm: 545559 1/2 - 1 Tablet(s) PO BID as needed 03/18/2017 09/20/2017 Inactive Cymbalta 30 mg capsule,delayed release RxNorm: 119715 1 Capsule(s) PO daily 03/09/2017 10/04/2017 Inactive levetiracetam 500 mg tablet RxNorm: 773807 1 Tablet(s) PO BID 03/09/2017 08/05/2017 Inactive pt to finish out supply of liquid then start on tablets Aricept 5 mg tablet RxNorm: 320783 1 Tablet(s) PO daily 201605/07/2017 Inactive pantoprazole 40 mg tablet,delayed release RxNorm: 334198 1 Tablet(s) PO daily 03/09/2017 07/06/2017 Inactive hydrocodone 10 mg-acetaminophen 325 mg tablet RxNorm: 775040 1 Tablet(s) PO Q6 as needed 12/04/2016 03/08/2017 Inactive hydrocodone 10 mg-acetaminophen 325 mg tablet RxNorm: 674096 1 Tablet(s) PO Q6 as needed 11/06/2016 12/03/2016 Inactive hydrocodone 10 mg-acetaminophen 325 mg tablet RxNorm: 125847 1 Tablet(s) PO Q6 as needed 10/08/2016 11/05/2016 Inactive Voltaren 1 % topical gel RxNorm: 758644 4 Gram(s) TOP TID as needed for pain as needed 09/25/2016 09/19/2017 Inactive hydrocodone 10 mg-acetaminophen 325 mg tablet RxNorm: 371272 1 Tablet(s) PO Q6 as needed 09/09/2016 10/07/2016 Inactive Voltaren 1 % topical gel RxNorm: 443870 1 Application TOP TID 09/08/2016 09/24/2016 Inactive Aricept 5 mg tablet RxNorm: 101668 1 Tablet(s) PO daily 201612/06/2016 Inactive Cymbalta 30 mg capsule,delayed release RxNorm: 811082 1 Capsule(s) PO daily 09/08/2016 12/06/2016 Inactive losartan 50 mg tablet RxNorm: 278801 1 Tablet(s) PO daily 201610/07/2016 Inactive clopidogrel 75 mg tablet RxNorm: 005326 75 MG PO DAILY 201609/20/2017 Inactive hydrocodone 10 mg-acetaminophen 325 mg tablet RxNorm: 005037 1 Tablet(s) PO Q6 as needed 08/15/2016 09/08/2016 Inactive hydrocodone 10 mg-acetaminophen 325 mg tablet RxNorm: 887545 1 Tablet(s) PO Q6 as needed 07/18/2016 08/14/2016 Inactive Cymbalta 30 mg capsule,delayed release RxNorm: 843139 1 Capsule(s) PO daily 07/03/2016 09/07/2016 Inactive Aricept 5 mg tablet RxNorm: 267567 1 Tablet(s) PO daily 201608/01/2016 Inactive Namenda XR 28 mg capsule sprinkle,extended release RxNorm: 761605 1 Capsule(s) PO daily 07/03/2016 05/07/2017 Inactive diazepam 5 mg tablet RxNorm: 622469 Tablet(s) PO daily as needed TAKE 1/2 TO 1 TABLET BY MOUTH DAILY NEEDED FOR ANXIETY 06/25/2016 03/06/2017 Inactive hydrocodone 10 mg-acetaminophen 325 mg tablet RxNorm: 385514 1 Tablet(s) PO Q6 as needed 06/19/2016 07/17/2016 Inactive Namenda XR 28 mg capsule sprinkle,extended release RxNorm: 262092 1 Capsule(s) PO daily 06/19/2016 07/02/2016 Inactive gabapentin 100 mg capsule RxNorm: 712430 1 Capsule(s) PO TID 03/08/2017 Inactive hydrocodone 10 mg-acetaminophen 325 mg tablet RxNorm: 591834 1 Tablet(s) PO Q6 as needed 05/27/2016 06/18/2016 Inactive diazepam 5 mg tablet RxNorm: 565027 Tablet(s) TAKE 1/2 TO 1 TABLET BY MOUTH DAILY NEEDED FOR ANXIETY 05/15/20162016 Inactive hydrocodone 10 mg-acetaminophen 325 mg tablet RxNorm: 289157 1 Tablet(s) PO Q6 as needed 04/29/2016 05/26/2016 Inactive omeprazole 40 mg capsule,delayed release RxNorm: 726441 Capsule(s) 1 CAPSULE(S) PO DAILY 04/28/2016 03/08/2017 Inactive diazepam 5 mg tablet RxNorm: 591441 Tablet(s) TAKE 1/2 TO 1 TABLET BY MOUTH DAILY NEEDED FOR ANXIETY 04/14/20162017 Inactive hydrocodone 10 mg-acetaminophen 325 mg tablet RxNorm: 815775 1 Tablet(s) PO Q6 as needed 04/01/2016 04/28/2016 Inactive Namenda XR 28 mg capsule sprinkle,extended release RxNorm: 807123 1 Capsule(s) PO daily 03/13/2016 06/18/2016 Inactive Namenda XR 28 mg capsule sprinkle,extended release RxNorm: 432423 1 Capsule(s) PO daily 03/12/2016 03/12/2016 Inactive diazepam 5 mg tablet RxNorm: 068909 Tablet(s) TAKE 1/2 TO 1 TABLET BY MOUTH DAILY NEEDED FOR ANXIETY 02/25/20162017 Inactive Namenda XR 28 mg capsule sprinkle,extended release RxNorm: 766187 1 Capsule(s) PO daily 02/04/2016 03/11/2016 Inactive hydrocodone 10 mg-acetaminophen 325 mg tablet RxNorm: 317227 1 Tablet(s) PO Q6 as needed 02/04/2016 03/04/2016 Inactive omeprazole 40 mg capsule,delayed release RxNorm: 756677 1 CAPSULE(S) PO DAILY 01/23/2016 04/27/2016 Inactive [SAVINGS FOR NON-COVERED DRUGS -- BIN:[id number], PCN: [id number], Group: XXXXX, ID# [id number], Questions: . THIS IS NOT INSURANCE.] sertraline 50 mg tablet RxNorm: 837375 TAKE 1 1/2 TABLET BY MOUTH ONCE DAILY 01/10/2016 03/08/2017 Inactive hydrocodone 10 mg-acetaminophen 325 mg tablet RxNorm: 820206 1 Tablet(s) PO Q6 as needed 01/07/2016 02/03/2016 Inactive diazepam 5 mg tablet RxNorm: 104372 Tablet(s) TAKE 1/2 TO 1 TABLET BY MOUTH DAILY NEEDED FOR ANXIETY 12/17/20152017 Inactive hydrocodone 10 mg-acetaminophen 325 mg tablet RxNorm: 748972 1 Tablet(s) PO Q6 as needed 12/10/2015 01/06/2016 Inactive gabapentin 100 mg capsule RxNorm: 551345 1 Capsule(s) PO TID 03/11/2016 Inactive gabapentin 100 mg capsule RxNorm: 141139 1 Capsule(s) PO TID 11/12/2015 Inactive hydrocodone 10 mg-acetaminophen 325 mg tablet RxNorm: 673444 1 Tablet(s) PO Q6 as needed 11/12/2015 12/09/2015 Inactive hydrocodone 10 mg-acetaminophen 325 mg tablet RxNorm: 145382 1 Tablet(s) PO Q6 as needed 10/16/2015 11/11/2015 Inactive hydrocodone 10 mg-acetaminophen 325 mg tablet RxNorm: 837506 1 Tablet(s) PO Q6 as needed 09/17/2015 10/15/2015 Inactive hydrocodone 10 mg-acetaminophen 325 mg tablet RxNorm: 055361 1 Tablet(s) PO Q6 as needed 08/16/2015 09/16/2015 Inactive diazepam 5 mg tablet RxNorm: 980843 Tablet(s) TAKE 1/2 TO 1 TABLET BY MOUTH DAILY NEEDED FOR ANXIETY 07/30/20152015 Inactive diazepam 5 mg tablet RxNorm: 443769 Tablet(s) TAKE 1/2 TO 1 TABLET BY MOUTH DAILY NEEDED FOR ANXIETY 07/27/20152015 Inactive hydrocodone 10 mg-acetaminophen 325 mg tablet RxNorm: 006251 1 Tablet(s) PO Q6 as needed 07/19/2015 08/15/2015 Inactive omeprazole 40 mg capsule,delayed release RxNorm: 799395 1 CAPSULE(S) PO DAILY 07/19/2015 01/14/2016 Inactive [SAVINGS FOR NON-COVERED DRUGS -- BIN:[id number], PCN: [id number], Group: XXXXX, ID# [id number], Questions: . THIS IS NOT INSURANCE.] hydrocodone 10 mg-acetaminophen 325 mg tablet RxNorm: 383706 1 Tablet(s) PO Q6 as needed 06/20/2015 07/18/2015 Inactive baclofen 10 mg tablet RxNorm: 663117 1 Tablet(s) PO TID 201506/07/2015 Inactive baclofen 10 mg tablet RxNorm: 463108 1 Tablet(s) PO TID 201507/07/2015 Inactive diazepam 5 mg tablet RxNorm: 966265 TAKE 1/2 TO 1 TABLET BY MOUTH DAILY NEEDED FOR ANXIETY 05/29/2015 04/12/2018 Inactive sertraline 50 mg tablet RxNorm: 339888 1.5 Tablet(s) PO daily 05/02/2015 10/28/2015 Inactive sertraline 50 mg tablet RxNorm: 233188 1.5 Tablet(s) PO daily 05/01/2015 05/01/2015 Inactive patient to call when needed diazepam 5 mg tablet RxNorm: 236058 1/2-1 Tablet(s) PO QDAY PRN 05/01/2015 05/29/2015 Inactive hydrocodone 10 mg-acetaminophen 325 mg tablet RxNorm: 424965 1 Tablet(s) PO Q6 as needed 04/23/2015 06/19/2015 Inactive hydrocodone 10 mg-acetaminophen 325 mg tablet RxNorm: 252527 1 Tablet(s) PO Q6 as needed 03/26/2015 04/22/2015 Inactive hydrocodone 10 mg-acetaminophen 325 mg tablet RxNorm: 660476 1 Tablet(s) PO Q6 as needed 02/26/2015 03/25/2015 Inactive Lyrica 50 mg capsule RxNorm: 086792 1 Capsule(s) PO TID 201402/03/2016 Inactive Lyrica 50 mg capsule RxNorm: 822222 1 Capsule(s) PO TID 201402/05/2015 Inactive Fish Oil [place]uring 3-6-9 300 mg-1,000 mg capsule,delayed release RxNorm: 1 Capsule(s) PO BID 01/30/2015 08/10/2016 Inactive diazepam 5 mg tablet RxNorm: 522659 1 Tablet(s) PO Q8 as needed 01/30/2015 04/30/2015 Inactive hydrocodone 10 mg-acetaminophen 325 mg tablet RxNorm: 819784 1 Tablet(s) PO Q6 as needed 01/19/2015 02/25/2015 Inactive sertraline 50 mg tablet RxNorm: 631448 1 Tablet(s) PO daily 04/30/2015 Inactive hydrocodone 10 mg-acetaminophen 325 mg tablet RxNorm: 024082 1 Tablet(s) PO Q6 as needed 12/12/2014 01/18/2015 Inactive hydrocodone 10 mg-acetaminophen 325 mg tablet RxNorm: 169681 1 Tablet(s) PO Q6 as needed 11/09/2014 12/11/2014 Inactive diazepam 5 mg tablet RxNorm: 391172 1 Tablet(s) PO Q8 as needed 11/01/2014 01/29/2015 Inactive omeprazole 40 mg capsule,delayed release RxNorm: 291331 1 Capsule(s) PO daily 10/02/2014 04/30/2015 Inactive [SAVINGS FOR NON-COVERED DRUGS -- BIN:[id number], PCN: ASPROD1, Group: XXXXX, ID# [id number], Questions: . THIS IS NOT INSURANCE.] omeprazole 40 mg capsule,delayed release RxNorm: 194916 1 Capsule(s) PO daily 10/02/2014 10/01/2014 Inactive melatonin 3 mg tablet RxNorm: 182070 1 Tablet(s) PO QHS No Start Date Active Vitamin D3 oral RxNorm : 2418 oral No Start Date Active diclofenac sodium 75 mg tablet,delayed release RxNorm: 206788 2 Tablet(s) PO daily No Start Date 04/30/2015 Inactive diazepam 5 mg tablet RxNorm: 421394 1 Tablet(s) PO TID No Start Date 10/31/2014 Inactive Multi Vitamin oral RxNorm: oral No Start Date 03/08/2017 Inactive Flonase nasal RxNorm: 31223 nasal No Start Date 03/08/2017 Inactive gabapentin 100 mg tablet RxNorm: 447812 1 Tablet(s) PO TID No Start Date 02/06/2015 Inactive hydrocodone 10 mg-acetaminophen 325 mg tablet RxNorm: 821291 1 Tablet(s) PO QID No Start Date 11/08/2014 Inactive Zithromax Z-Myles 250 mg tablet RxNorm: 790259 1 Tablet(s) PO UD No Start Date 06/24/2017 Inactive clopidogrel 75 mg tablet RxNorm: 157063 1 Tablet(s) PO daily No Start Date 09/03/2016 Inactive atorvastatin 40 mg tablet RxNorm: 679216 1 Tablet(s) PO daily No Start Date 09/20/2017 Inactive sertraline 50 mg tablet RxNorm: 474673 1 Tablet(s) PO daily No Start Date [...] Item Item Code Result Date Comp Metabolic Fwb124 NA 141 mEq/L 05/06/2018 Comp Metabolic Opb705 K 4.0 mEq/L 05/06/2018 Comp Metabolic Jwl212 CL 105 mEq/L 05/06/2018 Comp Metabolic Jsn388 CO2 29.0 mEq/L 05/06/2018 Comp Metabolic Dov528 ANION GAP 11 05/06/2018 Comp Metabolic Diw070 GLUCOSE 103 mg/dL 05/06/2018 Comp Metabolic Hbq529 Creat 0.8 mg/dL 05/06/2018 Comp Metabolic Qsd377 eGFR 80 ml/min/1.73m2 05/06/2018 Comp Metabolic Syk540 BUN 23 mg/dL 05/06/2018 Comp Metabolic Ruj496 B/C Ratio 30.3 Ratio 05/06/2018 Comp Metabolic Cfe620 CALCIUM 9.2 mg/dL 05/06/2018 Comp Metabolic Bqx394 ALK PHOS 65 U/L 05/06/2018 Comp Metabolic Lmr805 AST(SGOT) 18 U/L 05/06/2018 Comp Metabolic Tyu847 ALT(SGPT) 15 U/L 05/06/2018 Comp Metabolic Tbf920 BILI T 0.5 mg/dL 05/06/2018 Comp Metabolic Cbm097 ALBUMIN 4.4 g/dL 05/06/2018 Comp Metabolic Fea779 TPRO 6.4 g/dL 05/06/2018 Comp Metabolic Zvc570 GLOB 2.0 g/dL 05/06/2018 Comp Metabolic Cmb169 A/G Ratio 2.2 Ratio 05/06/2018 Comp Metabolic Faq725 Osmo 285 mOsmo 05/06/2018 Cbc With Differential Ord2 WBC 9.24 K/ul 05/05/2018 Cbc With Differential Ord2 RBC 4.22 M/ul 05/05/2018 Cbc With Differential Ord2 HGB 13.1 g/dl 05/05/2018 Cbc With Differential Ord2 Neut% 62.6 % 05/05/2018 Cbc With Differential Ord2 HCT 39.1 % 05/05/2018 Cbc With Differential Ord2 Lymph% 28.1 % 05/05/2018 Cbc With Differential Ord2 MCV 92.7 fl 05/05/2018 Cbc With Differential Ord2 MCH 31.0 pg 05/05/2018 Cbc With Differential Ord2 [place]% 7.4 % 05/05/2018 Cbc With Differential Ord2 Eos% 1.5 % 05/05/2018 Cbc With Differential Ord2 MCHC 33.5 pg 05/05/2018 Cbc With Differential Ord2 PLT 243 K/ul 05/05/2018 Cbc With Differential Ord2 Baso% 0.4 % 05/05/2018 Cbc With Differential Ord2 RDW 15.4 % 05/05/2018 Cbc With Differential Ord2 Neut ABS# 5.78 K/ul 05/05/2018 Cbc With Differential Ord2 Lymph ABS# 2.60 K/ul 05/05/2018 Cbc With Differential Ord2 [place] ABS# 0.7 K/ul 05/05/2018 Cbc With Differential Ord2 Eos ABS# 0.1 K/ul 05/05/2018 Cbc With Differential Ord2 Baso ABS# 0.0 K/ul 05/05/2018 C-Reactive Protein Qnt Crqnt CRP 0.1 mg/dl 11/04/2017 Sed Rate Ord21 ESR 2 mm/hr 11/04/2017 Comp Metabolic Ukh383 NA 143 mEq/L 08/28/2017 Comp Metabolic Hho925 K 4.2 mEq/L 08/28/2017 Comp Metabolic Qts419 CL 108 mEq/L 08/28/2017 Comp Metabolic Vqn679 CO2 28.0 mEq/L 08/28/2017 Comp Metabolic Zfx387 ANION GAP 11 08/28/2017 Comp Metabolic Yqw445 GLUCOSE 89 mg/dL 08/28/2017 Comp Metabolic Jsg665 Creat 0.8 mg/dL 08/28/2017 Comp Metabolic Oti819 eGFR 78 ml/min/1.73m2 08/28/2017 Comp Metabolic Ebt892 BUN 19 mg/dL 08/28/2017 Comp Metabolic Eyb640 B/C Ratio 24.4 Ratio 08/28/2017 Comp Metabolic Oqj464 CALCIUM 8.4 mg/dL 08/28/2017 Comp Metabolic Sth598 ALK PHOS 52 U/L 08/28/2017 Comp Metabolic Psb224 AST(SGOT) 20 U/L 08/28/2017 Comp Metabolic Qrj225 ALT(SGPT) 14 U/L 08/28/2017 Comp Metabolic Koh320 BILI T 0.5 mg/dL 08/28/2017 Comp Metabolic Czc399 ALBUMIN 4.0 g/dL 08/28/2017 Comp Metabolic Udv013 TPRO 5.9 g/dL 08/28/2017 Comp Metabolic Iek935 GLOB 1.9 g/dL 08/28/2017 Comp Metabolic Yow831 A/G Ratio 2.1 Ratio 08/28/2017 Comp Metabolic Uxg768 Osmo 287 mOsmo 08/28/2017 Cbc With Differential Ord2 WBC 7.49 K/ul 08/28/2017 Cbc With Differential Ord2 RBC 4.04 M/ul 08/28/2017 Cbc With Differential Ord2 HGB 12.5 g/dl 08/28/2017 Cbc With Differential Ord2 Neut% 62.3 % 08/28/2017 Cbc With Differential Ord2 HCT 37.8 % 08/28/2017 Cbc With Differential Ord2 MCV 93.6 fl 08/28/2017 Cbc With Differential Ord2 Lymph% 30.4 % 08/28/2017 Cbc With Differential Ord2 MCH 30.9 pg 08/28/2017 Cbc With Differential Ord2 [place]% 5.9 % 08/28/2017 Cbc With Differential Ord2 Eos% 0.9 % 08/28/2017 Cbc With Differential Ord2 MCHC 33.1 pg 08/28/2017 Cbc With Differential Ord2 Baso% 0.5 % 08/28/2017 Cbc With Differential Ord2 PLT 190 K/ul 08/28/2017 Cbc With Differential Ord2 Neut ABS# 4.66 K/ul 08/28/2017 Cbc With Differential Ord2 RDW 15.4 % 08/28/2017 Cbc With Differential Ord2 Lymph ABS# 2.28 K/ul 08/28/2017 Cbc With Differential Ord2 [place] ABS# 0.4 K/ul 08/28/2017 Cbc With Differential [...] 31.7 pg 03/09/2017 Cbc With Differential Ord2 [place]% 6.1 % 03/09/2017 Cbc With Differential Ord2 MCHC 33.9 pg 03/09/2017 Cbc With Differential Ord2 Eos% 1.2 % 03/09/2017 Cbc With Differential Ord2 PLT 224 K/ul 03/09/2017 Cbc With Differential Ord2 Baso% 0.3 % 03/09/2017 Cbc With Differential Ord2 Neut ABS# 3.82 K/ul 03/09/2017 Cbc With Differential Ord2 RDW 13.6 % 03/09/2017 Cbc With Differential Ord2 Lymph ABS# 1.78 K/ul 03/09/2017 Cbc With Differential Ord2 [place] ABS# 0.4 K/ul 03/09/2017 Cbc With Differential Ord2 Eos ABS# 0.1 K/ul 03/09/2017 Cbc With Differential Ord2 Baso ABS# 0.0 K/ul 03/09/2017 Tsh Ord6 hTSH II 0.87 uIU/mL 03/09/2017 %Hba1C Myu569 % HbA1c 50555-0 4.9 % 03/09/2017 %Hba1C Hnr132 Gluc Ave 94 mg/dL 03/09/2017 Comp Metabolic Igb342 NA 141 mEq/L 03/09/2017 Comp Metabolic Skd241 K 3.8 mEq/L 03/09/2017 Comp Metabolic Jao616 CL 105 mEq/L 03/09/2017 Comp Metabolic Yjk143 CO2 29.0 mEq/L 03/09/2017 Comp Metabolic Vtk255 ANION GAP 11 03/09/2017 Comp Metabolic Cfz698 GLUCOSE 98 mg/dL 03/09/2017 Comp Metabolic Geu155 Creat 0.7 mg/dL 03/09/2017 Comp Metabolic Yia066 eGFR 93 ml/min/1.73m2 03/09/2017 Comp Metabolic Ybb142 BUN 11 mg/dL 03/09/2017 Comp Metabolic Ibt532 B/C Ratio 16.4 Ratio 03/09/2017 Comp Metabolic Kfi413 CALCIUM 9.5 mg/dL 03/09/2017 Comp Metabolic Uru109 ALK PHOS 90 U/L 03/09/2017 Comp Metabolic Dxm968 AST(SGOT) 21 U/L 03/09/2017 Comp Metabolic Zqr342 ALT(SGPT) 15 U/L 03/09/2017 Comp Metabolic Gre450 BILI T 0.6 mg/dL 03/09/2017 Comp Metabolic Ssv591 ALBUMIN 4.5 g/dL 03/09/2017 Comp Metabolic Qer914 TPRO 6.4 g/dL 03/09/2017 Comp Metabolic Zah490 GLOB 1.9 g/dL 03/09/2017 Comp Metabolic Rof500 A/G Ratio 2.3 Ratio 03/09/2017 Comp Metabolic Zih074 Osmo 281 mOsmo 03/09/2017 Comp Metabolic Qal852 NA 142 mEq/L 09/03/2016 Comp Metabolic Jxe402 K 3.9 mEq/L 09/03/2016 Comp Metabolic Lny595 CL 107 mEq/L 09/03/2016 Comp Metabolic Ank450 CO2 26.0 mEq/L 09/03/2016 Comp Metabolic Klg335 ANION GAP 13 09/03/2016 Comp Metabolic Dvb208 GLUCOSE 107 mg/dL 09/03/2016 Comp Metabolic Bxb188 Creat 0.7 mg/dL 09/03/2016 Comp Metabolic Wew470 eGFR 85 ml/min/1.73m2 09/03/2016 Comp Metabolic Zzo185 BUN 16 mg/dL 09/03/2016 Comp Metabolic Mih412 B/C Ratio 21.9 Ratio 09/03/2016 Comp Metabolic Rja232 CALCIUM 8.8 mg/dL 09/03/2016 Comp Metabolic Sfz116 ALK PHOS 51 U/L 09/03/2016 Comp Metabolic Ove324 AST(SGOT) 24 U/L 09/03/2016 Comp Metabolic Ptt721 ALT(SGPT) 20 U/L 09/03/2016 Comp Metabolic Wfi825 BILI T 0.7 mg/dL 09/03/2016 Comp Metabolic Fqk921 ALBUMIN 4.1 g/dL 09/03/2016 Comp Metabolic Lna997 TPRO 6.1 g/dL 09/03/2016 Comp Metabolic Xpj430 GLOB 2.0 g/dL 09/03/2016 Comp Metabolic Ibh768 A/G Ratio 2.1 Ratio 09/03/2016 Comp Metabolic Nji539 Osmo 285 mOsmo 09/03/2016 Cbc With Differential [...] 30.3 pg 09/03/2016 Cbc With Differential Ord2 [place]% 6.5 % 09/03/2016 Cbc With Differential Ord2 Eos% 1.3 % 09/03/2016 Cbc With Differential Ord2 MCHC 33.8 pg 09/03/2016 Cbc With Differential Ord2 Baso% 0.6 % 09/03/2016 Cbc With Differential Ord2 PLT 217 K/ul 09/03/2016 Cbc With Differential Ord2 Neut ABS# 4.11 K/ul 09/03/2016 Cbc With Differential Ord2 RDW 15.3 % 09/03/2016 Cbc With Differential Ord2 Lymph ABS# 1.53 K/ul 09/03/2016 Cbc With Differential Ord2 [place] ABS# 0.4 K/ul 09/03/2016 Cbc With Differential [...] Ord15 CALCIUM 9.1 mg/dL 12/21/2015 Comp Metabolic Ajp578 NA 138 mEq/L 07/06/2015 Comp Metabolic Jsh703 K 3.9 mEq/L 07/06/2015 Comp Metabolic Vrm805 CL 103 mEq/L 07/06/2015 Comp Metabolic Iuo573 CO2 28.0 mEq/L 07/06/2015 Comp Metabolic Nip200 ANION GAP 11 07/06/2015 Comp Metabolic Hph196 GLUCOSE 114 mg/dL 07/06/2015 Comp Metabolic Qho370 Creat 0.7 mg/dL 07/06/2015 Comp Metabolic Qgm019 eGFR 97 ml/min/1.73m2 07/06/2015 Comp Metabolic Nxg009 BUN 11 mg/dL 07/06/2015 Comp Metabolic Wht784 B/C Ratio 16.9 Ratio 07/06/2015 Comp Metabolic Vwl687 CALCIUM 9.1 mg/dL 07/06/2015 Comp Metabolic Ugm880 ALK PHOS 57 U/L 07/06/2015 Comp Metabolic Ytl405 AST(SGOT) 26 U/L 07/06/2015 Comp Metabolic Mpg946 ALT(SGPT) 17 U/L 07/06/2015 Comp Metabolic Sju018 BILI T 0.6 mg/dL 07/06/2015 Comp Metabolic Olu216 ALBUMIN 4.6 g/dL 07/06/2015 Comp Metabolic Xie767 TPRO 6.7 g/dL 07/06/2015 Comp Metabolic Zjr855 GLOB 2.1 g/dL 07/06/2015 Comp Metabolic Vsk032 A/G Ratio 2.2 Ratio 07/06/2015 Comp Metabolic Ozu452 Osmo 276 mOsmo 07/06/2015 Lipid Ord30 CHOL 228 mg/dL 07/06/2015 Lipid Ord30 HDL 48.0 mg/dl 07/06/2015 Lipid Ord30 TRIG 176 mg/dL 07/06/2015 Lipid Ord30 LDL 145 mg/dL 07/06/2015 Lipid Ord30 C/HDL 4.8 Ratio 07/06/2015 Tsh Ord6 hTSH II 0.74 uIU/mL 05/01/2015 Comp Metabolic Zql935 NA 141 mEq/L 05/01/2015 Comp Metabolic Yhz218 K 4.0 mEq/L 05/01/2015 Comp Metabolic Blj969 CL 106 mEq/L 05/01/2015 Comp Metabolic Sdi616 CO2 26.0 mEq/L 05/01/2015 Comp Metabolic Ftm999 ANION GAP 13 05/01/2015 Comp Metabolic Ueh826 GLUCOSE 124 mg/dL 05/01/2015 Comp Metabolic Tpk630 Creat 0.8 mg/dL 05/01/2015 Comp Metabolic Dyf799 eGFR 79 ml/min/1.73m2 05/01/2015 Comp Metabolic Tvj354 BUN 13 mg/dL 05/01/2015 Comp Metabolic Mrc697 B/C Ratio 16.7 Ratio 05/01/2015 Comp Metabolic Lid523 CALCIUM 9.3 mg/dL 05/01/2015 Comp Metabolic Qom197 ALK PHOS 54 U/L 05/01/2015 Comp Metabolic Rkc514 AST(SGOT) 21 U/L 05/01/2015 Comp Metabolic Esr326 ALT(SGPT) 14 U/L 05/01/2015 Comp Metabolic Fnx673 BILI T 0.5 mg/dL 05/01/2015 Comp Metabolic Nwr284 ALBUMIN 4.5 g/dL 05/01/2015 Comp Metabolic Opf575 TPRO 6.4 g/dL 05/01/2015 Comp Metabolic Oln766 GLOB 1.9 g/dL 05/01/2015 Comp Metabolic Iyk741 A/G Ratio 2.4 Ratio 05/01/2015 Comp Metabolic Ipt508 Osmo 283 mOsmo 05/01/2015 Cbc With Differential [...] Differential Ord2 RDW 16.8 % 05/01/2015 %Hba1C Hrh826 % HbA1c 35564-5 5.4 % 01/29/2015 %Hba1C Qif263 Gluc Ave 108 mg/dL 01/29/2015 Lipid Ord30 CHOL 221 mg/dL 01/26/2015 Lipid Ord30 HDL 37.0 mg/dl 01/26/2015 Lipid Ord30 TRIG 274 mg/dL 01/26/2015 Lipid Ord30 LDL 129 mg/dL 01/26/2015 Lipid Ord30 C/HDL 6.0 Ratio 01/26/2015 Tsh Ord6 hTSH II 0.85 uIU/mL 01/26/2015 Comp Metabolic Hjm028 NA 137 mEq/L 01/26/2015 Comp Metabolic Ato100 K 4.0 mEq/L 01/26/2015 Comp Metabolic Ege296 CL 104 mEq/L 01/26/2015 Comp Metabolic Zbj401 CO2 27.0 mEq/L 01/26/2015 Comp Metabolic Bpt582 ANION GAP 10 01/26/2015 Comp Metabolic Cmp462 GLUCOSE 131 mg/dL 01/26/2015 Comp Metabolic Qhu562 Creat 0.8 mg/dL 01/26/2015 Comp Metabolic Eyr795 eGFR 77 ml/min/1.73m2 01/26/2015 Comp Metabolic Qur868 BUN 16 mg/dL 01/26/2015 Comp Metabolic Ahp682 B/C Ratio 20.0 Ratio 01/26/2015 Comp Metabolic Sve523 CALCIUM 9.1 mg/dL 01/26/2015 Comp Metabolic Gms666 ALK PHOS 66 U/L 01/26/2015 Comp Metabolic Qfy667 AST(SGOT) 24 U/L 01/26/2015 Comp Metabolic Jrn161 ALT(SGPT) 20 U/L 01/26/2015 Comp Metabolic Xig068 BILI T 0.4 mg/dL 01/26/2015 Comp Metabolic Lxw700 ALBUMIN 4.2 g/dL 01/26/2015 Comp Metabolic Dom138 TPRO 6.4 g/dL 01/26/2015 Comp Metabolic Ofw583 GLOB 2.2 g/dL 01/26/2015 Comp Metabolic Ecn770 A/G Ratio 1.9 Ratio 01/26/2015 Comp Metabolic Lux985 Osmo 277 mOsmo 01/26/2015 Cbc With Differential [...] Differential Ord2 RDW 15.5 % 01/26/2015 B12 Cao544 B12 669.00 pg/ml 01/26/2015 Review of Systems [...] clear 10/28/2017 None Full Exam - General 1995 Ears/Nose/Throat lips/teeth/gingiva Overall: benign lips 10/28/2017 None [...] yes 09/23/2017 None Full Exam - General 1995 [...] benign 01/30/2015 None Full Exam - General 1995 Ears/Nose/Throat oral cavity/pharynx/larynx Overall: no masses 01/30/2015 [...] NO PRSV 4 BLANCA 3 YRS+ CPT-4: 04633 02/22/2018 ADMIN INFLUENZA VIRUS VAC CPT-4: G0008 03/18/2017 FLU VACC PRSV FREE INC ANTIG CPT-4: 63984 03/18/2017 INITIAL PREVENTIVE EXAM CPT-4: G0402 07/06/2015 IIV4 FLU VACC NO PRESERV ID Formatting Model/CDA Sections, Assigned to SNOMED CT: [id number] CPT-4: 01675Wfpqtca 03/26/2015 IMMUNIZATION ADMIN CPT -4: 08929 03/26/2015 Vital Signs Date Vital 05/05/2018 Blood Pressure 1: 120/80 Code : 8480-6 BMI: 29.1 Code : 71578-7 Heart Rate 1 : 76 bpm Height: 5'1" SpO2: 97% Weight: 154 lbs 02/22/2018 Blood Pressure 1: 140/70 Code : 8480-6 BMI: 26.3 Code : 31961-6 Heart Rate 1 : 60 bpm Height: 5'1" SpO2: 97% Weight: 139 lbs 12/29/2017 Blood Pressure 1: 110/58 Code : 8480-6 BMI: 23.8 Code : 27691-6 Heart Rate 1 : 56 bpm Height: 5'1" SpO2: 98% Weight: 126 lbs 10/28/2017 Blood Pressure 1: 96/68 Code : 8480-6 BMI: 21.7 Code : 73690-0 Heart Rate 1 : 68 bpm Height: 5'1" SpO2: 98% Weight: 115 lbs 09/23/2017 Blood Pressure 1: 134/72 Code : 8480-6 BMI: 22.5 Code : 91726-4 Heart Rate 1 : 72 bpm Height: 5'1" SpO2: 97% Weight: 119 lbs 03/18/2017 Blood Pressure 1: 140/72 Code : 8480-6 BMI: 21.5 Code : 50799-2 Heart Rate 1 : 64 bpm Height: 5'1" SpO2: 96% Weight: 114 lbs 03/09/2017 Blood Pressure 1: 120/72 Code : 8480-6 BMI: 21.5 Code : 85364-7 Heart Rate 1 : 75 bpm Height: 5'1" SpO2: 97% Weight: 114 lbs 12/09/2016 Blood Pressure 1: 130/76 Code : 8480-6 BMI: 23.8 Code : 93723-1 Heart Rate 1 : 68 bpm Height: 5'1" SpO2: 98% Weight: 126 lbs 09/08/2016 Blood Pressure 1: 162/80 Code : 8480-6 Blood Pressure 2: 145/90 Code: 8480-6 BMI: 24.7 Code: 28950-9 Heart Rate 1: 77 bpm Height: 5'1" SpO2: 97% Weight: 130 lbs 8 oz 08/11/2016 Blood Pressure 1: 130/80 Code : 8480-6 BMI: 25.9 Code : 28601-4 Heart Rate 1 : 62 bpm Height: 5'1" SpO2: 97% Weight: 137 lbs 07/03/2016 Blood Pressure 1: 134/74 Code : 8480-6 BMI: 26.8 Code : 94625-2 Heart Rate 1 : 74 bpm Height: 5'1" SpO2: 97% Weight: 142 lbs 06/19/2016 Blood Pressure 1: 118/66 Code : 8480-6 Heart Rate 1: 72 bpm SpO2: 96% Weight: 142 lbs 02/04/2016 Blood Pressure 1: 130/80 Code : 8480-6 BMI: 27.2 Code : 50248-5 Heart Rate 1 : 76 bpm Height: 5'1" SpO2: 96% Weight: 144 lbs 01/07/2016 Blood Pressure 1: 136/64 Code : 8480-6 BMI: 27.6 Code : 76829-1 Heart Rate 1 : 73 bpm Height: 5'1" SpO2: 987% Weight: 146 lbs 12/17/2015 Blood Pressure 1: 128/86 Code : 8480-6 BMI: 27.0 Code : 92269-6 Heart Rate 1 : 59 bpm Height: 5'1" SpO2: 96% Weight: 143 lbs 10/16/2015 Blood Pressure 1: 122/78 Code : 8480-6 BMI: 25.7 Code : 34924-8 Heart Rate 1 : 71 bpm Height: 5'1" SpO2: 96% Weight: 136 lbs 08/16/2015 Blood Pressure 1: 138/88 Code : 8480-6 BMI: 27.0 Code : 72513-4 Heart Rate 1 : 75 bpm Height: 5'1" SpO2: 98% Weight: 143 lbs 07/06/2015 Blood Pressure 1: 120/72 Code : 8480-6 BMI: 26.5 Code : 70524-3 Heart Rate 1 : 72 bpm Height: 5'1" SpO2: 96% Weight: 140 lbs 06/07/2015 Blood Pressure 1: 152/86 Code : 8480-6 BMI: 26.1 Code : 53846-4 Heart Rate 1 : 88 bpm Height: 5'1" SpO2: 97% Weight: 138 lbs 05/01/2015 Blood Pressure 1: 120/80 Code : 8480-6 BMI: 27.0 Code : 67371-7 Heart Rate 1 : 82 bpm Height: 5'1" SpO2: 98% Temperature: 36.7 (C) / 98.0 (F) Weight: 143 lbs 03/26/2015 Blood Pressure 1: 140/80 Code : 8480-6 BMI: 28.0 Code : 54376-7 Heart Rate 1 : 69 bpm Height: 5'1" SpO2: 96% Weight: 148 lbs 03/13/2015 Blood Pressure 1: 128/70 Code : 8480-6 BMI: 28.2 Code : 33731-2 Heart Rate 1 : 76 bpm Height: 5'1" Weight: 149 lbs 01/30/2015 Blood Pressure 1: 142/68 Code : 8480-6 BMI: 28.7 Code : 89731-6 Heart Rate 1 : 86 bpm Height: 5'1" SpO2: 96% Weight: 152 lbs 10/16/2014 Blood Pressure 1: 160/88 Code : 8480-6 BMI: 28.2 Code : 79967-1 Heart Rate 1 : 66 bpm Height: [...] Codes Date EST. PATIENT, LEVEL III Diagnosis: Dementia in other diseases classified elsewhere without behavioral disturbance[ICD10: F02.80] Diagnosis: Major depressive disorder, recurrent, mild[ICD10: F33.0] Diagnosis: Generalized anxiety disorder[ICD10: F41.1] [facility] CPT-4: 30017 05/05/2018 40186 EST. PATIENT, LEVEL III Diagnosis: Other insomnia[ICD10: G47.09] Diagnosis: Dementia in other diseases classified elsewhere without behavioral disturbance[ICD10: F02.80] Diagnosis: Encounter for immunization[ICD10: Z23] [facility] CPT-4: 22544 02/22/2018 [id number] EST. PATIENT, LEVEL IV Diagnosis: Dementia in other diseases classified elsewhere without behavioral disturbance[ICD10: F02.80] Diagnosis: Major depressive disorder, recurrent, mild[ICD10: F33.0] Diagnosis: Other allergic rhinitis[ICD10: J30.89] Angelica Ochoa MD, [facility] CPT-4: 88285 12/29/2017 ([id number]) 34840 EST. PATIENT, LEVEL IV Diagnosis: Dementia in other diseases classified elsewhere without behavioral disturbance[ICD10: F02.80] Diagnosis: Major depressive disorder, recurrent, mild[ICD10: F33.0] Diagnosis: Allergy to other foods[ICD10: Z91.018] Marylu Ochoa MD, [facility] CPT-4: 14700 10/28/2017 72381 EST. 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 PATIENT, LEVEL IV Diagnosis: Essential (primary) hypertension[ICD10: I10] Diagnosis: Major depressive disorder, recurrent, moderate[ICD10: F33.1] Diagnosis: Underweight[ICD10: R63.6] Diagnosis: Localization-related (focal) (partial) symptomatic epilepsy and epileptic syndromes with simple partial seizures, not intractable, without status epilepticus[ICD10: G40.109] Marylu Ochoa MD, [facility] CPT-4: 32317 03/09/2017 ([id number]) 26175 EST. PATIENT, LEVEL IV Diagnosis: Mixed hyperlipidemia[ICD10: E78.2] Diagnosis: Chronic pain syndrome[ICD10: G89.4] Diagnosis: Major depressive disorder, recurrent, mild[ICD10: F33.0] Marylu Ochoa MD, [facility] CPT-4: 16157 12/09/2016 ([id number]) 67204 EST. 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 PATIENT, LEVEL III Diagnosis: Chronic pain syndrome[ICD10: G89.4] Diagnosis: Low back pain[ICD10: M54.5] Diagnosis: Major depressive disorder, recurrent, mild[ICD10: F33.0] Diagnosis: Mild cognitive impairment, so stated[ICD10: G31.84] Angelica Ochoa MD, [facility] CPT-4: 35919 07/03/2016 ([id number]) 22464 EST. PATIENT, LEVEL III Diagnosis: Chronic pain syndrome[ICD10: G89.4] Donna Ochoa MD, [facility] CPT-4: 32937 06/19/2016 ([id number]) 38292 EST. PATIENT, LEVEL IV Diagnosis: Chronic pain syndrome[ICD10: G89.4] Diagnosis: Mild cognitive impairment, so stated[ICD10: G31.84] Donna Ochoa MD, [facility] CPT-4: 47483 02/04/2016 ([id number]) 61250 EST. PATIENT, LEVEL IV Diagnosis: Chronic pain syndrome[ICD10: G89.4] Diagnosis: Mild cognitive impairment, so stated[ICD10: G31.84] Diagnosis: Major depressive disorder, recurrent, mild[ICD10: F33.0] Donna Ochoa MD , [facility] CPT-4: 88316 01/07/2016 ([id number]) 46648 EST. PATIENT, LEVEL IV Diagnosis: Chronic pain syndrome[ICD10: G89.4] Diagnosis: Headache[ICD10: R51] Diagnosis: Major depressive disorder, recurrent, mild[ICD10: F33.0] Diagnosis: Mixed hyperlipidemia[ICD10: E78.2] Donna Ochoa MD, [facility] CPT-4: 32064 12/17/2015 ([id number]) 59278 EST. PATIENT, LEVEL III Diagnosis: Chronic pain syndrome[ICD10: G89.4] Diagnosis: Major depressive disorder, recurrent, mild[ICD10: F33.0] Donna Ochoa MD , [facility] CPT-4: 59288 10/16/2015 ([id number]) 66843 EST. PATIENT, LEVEL III Diagnosis: Low back pain[ICD10: M54.5] Donna Ochoa MD, [facility] CPT-4: 31835 08/16/2015 ([id number]) 15156 EST. 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 PATIENT, LEVEL IV Diagnosis: Major depressive disorder, recurrent, mild[ICD10: F33.0] Diagnosis: Chronic pain syndrome[ICD10: G89.4] Diagnosis: Other fatigue[ICD10: R53.83] Donna Ochoa MD, [facility] CPT-4: 62398 05/01/2015 ([id number]) 98258 EST. PATIENT, LEVEL II Diagnosis: Plantar fascial fibromatosis[ICD10: M72.2] Donna Ochoa MD, [facility] CPT-4: 81284 03/26/2015 ([id number]) 91519 EST. PATIENT, LEVEL III Diagnosis: Plantar fascial fibromatosis[ICD10: M72.2] Donna Ochoa MD, [facility] CPT-4: 51326 03/13/2015 ([id number]) 68913 EST. PATIENT, LEVEL III Diagnosis: Hyperlipidemia[ICD9: 272.4] Diagnosis: ALLERGIC RHINITIS[ICD9: 477.9] Diagnosis: Chronic pain syndrome[ICD9: 338.4] Donna Ochoa MD, [facility] CPT-4: 02767 01/30/2015 ([id number]) OFFICE VISIT, NEW - LEVEL 4 Diagnosis: ESOPHAGEAL REFLUX[ICD9: 530.81] Diagnosis: Peripheral neuropathy[ICD9: 356.9] Diagnosis: Chronic pain syndrome[ICD9: 338.4] Diagnosis: OSTEOARTH NOS-UNSPEC[ICD9: 715.90] Diagnosis: DEPRESSIVE DISORDER NEC[ICD9: 311] Marylu Ochoa MD, [facility] CPT-4: 89464 10/16/2014 Plan of Care Planned Activity Notes [...] of treatment. 05/05/2018 Appointment: Angelica Cuba WPtel: [address] [place], [place] [address] (30 min) Complex 05/05/2018 Patient Education: Patient Medication Summary Completed 05/05/2018 Patient Education: Depression Completed 05/05/2018 [facility] [phone] [facility] [place] (15 min) Moderate 03/24/2018 Visit Plan: Insomnia [...] treatment. 02/22/2018 Appointment: [facility] [phone] [facility] [place] (15 min) Moderate 02/22/2018 Appointment: Angelica Cuba WPtel: [phone] [facility] [place] (15 min) Moderate 02/22/2018 Patient Education: Patient Medication Summary Completed 02/22/2018 Appointment: [facility] [place] [facility]el[facility] [phone] [facility] [place] (15 min) Moderate 02/18/2018 Visit [...] Summary Completed 12/29/2017 Appointment: [facility] [place] [facility]el[facility] [phone] [facility] [place] (15 min) Moderate 12/23/2017 Patient [...] of adalgisa. 10/28/2017 Appointment: Marylu Ochoa WPtel: [facility] (15 min) Moderate 10/28/2017 Patient Education: [...] make a follow up appointment with her paramedic supervisor - The patient has been counseled to [...] acute concerns. 09/23/2017 Appointment: Angelica Cuba WPtel: [facility] (30 min) Complex 09/23/2017 Patient Education: Patient Medication Summary Completed 09/23/2017 [phone] [facility] ([facility] min) Moderate 08/26/2017 Appointment: Angelica Cuba WPtel: [phone] [facility] [place] (30 min) Complex 06/30/2017 Referral: External, Ordering Provider Referral Initiated 05/27/2017 Care Plan: Referral Order SNOMED-CT : [id number] Pending 04/20/2017 Visit Plan: Anxiety - the [...] make a follow up appointment with her paramedic supervisor - The patient has been counseled to [...] at home. 03/09/2017 Appointment: Marylu Ochoa WPtel: [phone] [facility] (30 min) Complex 03/09/2017 Patient Education: Patient Medication Summary Completed 03/09/2017 Appointment: Donna Walden WPtel: [phone] [phone] [place] (30 min) Complex 03/06/2017 Appointment: Marylu Ochoa WPtel: [phone] [facility] [place] (15 min) Moderate 01/08/2017 Visit Plan: Hyperlipidemia [...] Summary Completed 12/09/2016 Appointment: Marylu Ochoa WPtel: [phone] [facility] [place] (15 min) Moderate 11/11/2016 Appointment: Angelica Cuba WPtel: [phone] [facility] [place] (30 min) Complex 10/09/2016 Visit [...] refill namenda 09/08/2016 Appointment: Marylu Ochoa WPtel: [address] [place], [place] [address] (15 min) Moderate 09/08/2016 Patient Education: Patient Medication Summary Completed 09/08/2016 Appointment: Angelica Cuba WPtel: [facility] (30 min) Complex 08/19/2016 Visit Plan: [...] with plavix 08/11/2016 Appointment: Marylu Ochoa WPtel: [facility] (15 min) Moderate 08/11/2016 Patient Education: [...] or concerns. 07/03/2016 Appointment: Angelica Cuba WPtel: [facility]2 [facility] (30 min) Complex 07/03/2016 Patient Education: Patient Medication Summary Completed 07/03/2016 Care Plan: Referral Order SNOMED-CT : [id number] Pending 07/03/2016 Visit Plan: Chronic Pain Syndrome - pt has chronic pain - has been maintained on current medications, has not sought out other medications , only uses PRN pain medications as directed, and understands the consequences of over-medication. 06/19/2016 Appointment: Donna Walden WPtel: [facility]6 [phone] (30 min) Complex 06/19/2016 Patient Education: Patient Medication Summary Completed 06/19/2016 Appointment: Donna Walden WPtel: [phone] [phone] (30 min) Complex 06/05/2016 Visit Plan: Chronic Pain Syndrome - pt has chronic pain - has been maintained on current medications, has not sought out other medications , only uses PRN pain medications as directed, and understands the consequences of over-medication. Mild cognitive impairment-discussed with Dr Arnulfo tam 02/04/2016 Appointment: Donna Walden WPtel: [phone] [phone] (30 min) Complex 02/04/2016 Patient Education: Patient Medication Summary Completed 02/04/2016 Appointment: Donna Walden WPtel: [phone] [phone] (30 min) Complex 01/14/2016 Visit Plan: [...] testing. 01/07/2016 Appointment: Donna Walden WPtel: [phone] [phone] (15 min) Moderate 01/07/2016 Patient Education: Patient Medication Summary Completed 01/07/2016 Visit Plan: Chronic Pain Syndrome - pt has chronic pain - has been maintained on current medications, has not sought out other medications , only uses PRN pain medications as directed, and understands the consequences of over-medication. Headaches-memory loss-schedule MRI brain Hyperlipidemia- check fasting labs Mwyvsybdhx-egtzgh-xq change in medications at this time 12/17/2015 Patient Education: Patient Medication Summary Completed 12/17/2015 Appointment: Donna Walden WPtel: [phone] [phone] (30 min) Complex 12/13/2015 Visit Plan: [...] change in current medications. 10/16/2015 Appointment: Donna Waledn WPtel: [phone] [phone] (30 min) Complex 10/16/2015 Patient Education: [...] pain symptoms. 06/07/2015 Appointment: Marylu Ochoa WPtel: [facility] (15 min) Moderate [...] shoes - discussed inserts and referral to business administrator-patient wants to wait but will let us [...] changes. Continue with current plan of treatment. Refill Cymbalta Voltaren gel for low back pain 90 day supply of Aricept through [facility] Add 50 mg Losartan daily for hypertension [...] pain 90 day supply of Aricept through [facility] Add 50 mg Losartan daily for hypertension [...] Aricept through [facility], refill namenda restart cymbalta 30mg daily after 1 week [...] changes. Continue with current plan of treatment. mammogram order - given to patient - she is to schedule in [place] . Chronic Pain Syndrome - pt has [...] Headaches-memory loss-schedule MRI brain Hyperlipidemia-check fasting labs Ppujpgargu-fbxydl-wc change in medications at this time . [...] supportive shoes -discussed inserts and referral to business administrator-patient wants to wait but will let us [...] make a follow up appointment with her paramedic supervisor - The patient has been counseled to [...] next office visit after review of testing. Diazepam 2mg 1/2 to 1 tab twice a day as needed for agitation flu shot today will check b12 level and do b12 shot with next appointment if needed. Will make her a follow up appointment with Dr. Vo Will see about referring her to Dr. Renteria in [place] (neurologist) . Anxiety - the patient has [...] make a follow up appointment with her paramedic supervisor - The patient has been counseled to [...] spray in the nasal steroid allergy spray. ALEVE 2 TABS TWICE DAILY WITH FOOD [...] the patient's termination from this medical practice. Namenda starter pack . Chronic Pain Syndrome [...]
--- NOTE | 2018-09-20 05:46 | ED Neurological Problem ---
General Chief Complaint: Neuro-Stroke Like Symptoms Stated Complaint: POSSIBLE STROKE Source: patient, family, EMS Exam Limitations: no limitations History of Present Illness Date Seen by Provider: September 20, 2018 Time Seen by Provider: 05:08 Initial Comments The patient presents to ER by EMS from home with chief complaint for her that she was woke from sleep streaked out in pain and then rolled over and had a seizure. EMS states when they got there she was postictal and not really answering any questions about coming here she would at least answer her name but still not following commands. She was alert and looking around the room. She repeats words the examiner says does not appear to have any slurred speech but does not volunteer any answers. She has a history of a hemorrhagic stroke about a year 2 ago. Allergies and Home Medications Allergies Coded Allergies: Penicillins (Unverified Allergy, Unknown, HIVES, 12/21/15) THROAT SWELLS Uncoded Allergies: PAULINO INHIBITOR 2 (Allergy, Unknown, HIVES, 12/21/15) THROAT SWELLS Home Medications Clopidogrel Bisulfate 75 Mg Tablet, 75 MG PO DAILY Prescribed by: ADRIANA TRIPP on 08/04/16 1221 Donepezil HCl 5 Mg Tablet, 5 MG PO DAILY, (Reported) Duloxetine HCl 30 Mg Capsule.dr, 30 MG PO DAILY, (Reported) Epinephrine 0.3 Mg/0.3 Ml Auto.injct, 0.3 MG IJ ONCE Prescribed by: SANTA BARNES on 10/16/17 2235 Hydrocodone Bit/Acetaminophen 1 Each Tablet, 1 EACH PO Q4H PRN for PAIN Prescribed by: REN BRITT on 03/02/17 1819 Memantine HCl 28 Mg Cap.spr.24, 28 MG PO DAILY, (Reported) Patient Home Medication List Home Medication List Reviewed: Yes Review of Systems Review of Systems Constitutional: see HPI (history of present illness per her who is in bed with her); No chills, No diaphoresis, No fever Eyes: Denies Blindness, Denies Blurred Vision Respiratory: No cough, No short of breath Cardiovascular: No chest pain, No syncope Gastrointestinal: No abdominal pain, No constipation, No diarrhea, No vomiting Genitourinary: No discharge, No dysuria Past Awjctcx-Uoffjw-Cncjnd Hx Patient Social History Alcohol Use: Denies Use Recreational Drug Use: No Smoking Status: Never a Smoker 2nd Hand Smoke Exposure: No Recent Hopitalizations: No Immunizations Up To Date Tetanus Booster (TDap): More than 5yrs Date of Influenza Vaccine: Feb 16, 2012 Seasonal Allergies Seasonal Allergies: Yes Past Medical History Surgeries: Yes ("spinal cage" and gastrostomy tube placement) Hysterectomy, Orthopedic, Tonsillectomy Respiratory: Yes Asthma Cardiac: No Neurological: Yes ("mini stroke" FOUND ON MRI 3-4 months ago per ) Dementia, Stroke Reproductive Disorders: No Genitourinary: No Gastrointestinal: No Musculoskeletal: Yes Osteoporosis, Arthritis, Chronic Back Pain, Fractures Endocrine: Yes (WAS ON MEDICATIONS FOR DIABETES, BUT NOT ANY LONGER) Diabetes, Non-Insulin dep HEENT: No Cancer: No Psychosocial: Yes Depression Integumentary: No Blood Disorders: No Family Medical History No Pertinent Family Hx Physical Exam Vital Signs Vital Signs - First Documented 09/20/18 05:07 Temp 98.1 Pulse 85 Resp 18 B/P (MAP) 123/64 (83) Capillary Refill : Height, Weight, BMI Height: 5'1.00" Weight: 112lbs. 0oz. 50.443803pc; 25.9 BMI Method:Stated General Appearance: WD/WN, no apparent distress HEENT: PERRL/EOMI, normal ENT inspection (tongue without evidence of significant injury), TMs normal, pharynx normal, other (scant amount of dried blood on her lip.) Neck: full range of motion, normal inspection Respiratory: lungs clear, normal breath sounds, no respiratory distress, no accessory muscle use Cardiovascular: normal peripheral pulses, regular rate, rhythm Peripheral Pulses: 2+ Radial Pulses (R), 2+ Radial Pulses (L) Gastrointestinal: normal bowel sounds, non tender, soft Neurologic/Psychiatric: alert, other (flat affect) Crainal Nerves: normal hearing, PERRL; No abnormal eye position Coordination/Gait: normal finger to nose (heel to santo normal bilaterally) Motor/Sensory: no motor deficit, no sensory deficit, no pronator drift Skin: normal color, warm/dry Stroke Onset of Symptoms Date of Onset of Symptoms: September 20, 2018 Time of Symptom Onset: 04:30 Onset of Symptoms: Yes Symptoms onset unknown: No NIH Stroke Scale Assessment Select: Initial Level of Consciousness: 0=Alert (0), Level of Consciousness- Questions: 2=Answer neither question (2), LOC Commands: 0=Performs both tasks (0 ), Gaze: Normal (0), Visual Nix: 0=No visual loss (0), Facial Movement ( Facial Paresis): 0=Normal symmetrical mnt (0), Motor Function-Arms Right: 0=No drift (0), Motor Function-Arms Left: 0=No drift (0), Motor Function-Legs Right: 0=No drift (0), Motor Function-Legs Left: 0=No drift (0), Limb Ataxia: 0=Absent (0), Sensory: 0=Normal:no loss (0), Best Language: 2=Severe aphasia (2), Dysarthria: 0=Normal (0), Extinction & Inattention: 0=No abnormality (0), Total : 4 Stroke Thrombolytic Exclusion Age 18 or Over: No Acute intenal hemorrhage: No History of CVA: Yes Uncontrolled Coagulation Defec: No Intracranial Hemorrhage: No Severe Hypertension: No GI or Bleed: No Subarachnoid Hemorrhage: No Intracranial Neoplasm/Aneurysm: No Oral Anticoagulants: No Surgery or Trauma: No Puncture of Non-Compressible V: No Recent CPR: No Diabetic Hemorrhagic Retinopat: No Organ Biopsy: No Recent Obstetric Delivery: No Glucose: No (151) Significant Hepatic Dysfunctio: No NIH Stoke Scale >22: No Bacterial Endocarditis: No Pericarditis: No Improving Symptoms: No Platelets: No TPA Contraindication: No IV - TPa Received IV - TPa Procedure Performed?: No Progress/Results/Core Measures Results/Orders Lab Results Laboratory Tests Test 09/20/18 05:05 09/20/18 05:50 Range/Units White Blood Count 11.1 H 4.3-11.0 10^3/uL Red Blood Count 4.31 L 4.35-5.85 10^6/uL Hemoglobin 13.0 11.5-16.0 G/DL Hematocrit 39 35-52 % Mean Corpuscular Volume 91 80-99 FL Mean Corpuscular Hemoglobin 30 25-34 PG Mean Corpuscular Hemoglobin Concent 33 32-36 G/DL Red Cell Distribution Width 15.4 H 10.0-14.5 % Platelet Count 236 130-400 10^3/uL Mean Platelet Volume 10.8 H 7.4-10.4 FL Neutrophils (%) (Auto) 41 L 42-75 % Lymphocytes (%) (Auto) 50 H 12-44 % Monocytes (%) (Auto) 7 0-12 % Eosinophils (%) (Auto) 2 0-10 % Basophils (%) (Auto) 1 0-10 % Neutrophils # (Auto) 4.5 1.8-7.8 X 10^3 Lymphocytes # (Auto) 5.5 H 1.0-4.0 X 10^3 Monocytes # (Auto) 0.8 0.0-1.0 X 10^3 Eosinophils # (Auto) 0.2 0.0-0.3 10^3/uL Basophils # (Auto) 0.1 0.0-0.1 10^3/uL Prothrombin Time 12.8 12.2-14.7 SEC INR Comment 0.9 0.8-1.4 Activated Partial Thromboplast Time 28 24-35 SEC D-Dimer 1.21 H 0.00-0.49 UG/ML Sodium Level 143 135-145 MMOL/L Potassium Level 4.0 3.6-5.0 MMOL/L Chloride Level 110 H 98-107 MMOL/L Carbon Dioxide Level 15 L 21-32 MMOL/L Anion Gap 18 H 5-14 MMOL/L Blood Urea Nitrogen 13 7-18 MG/DL Creatinine 0.99 0.60-1.30 MG/DL Estimat Glomerular Filtration Rate 56 BUN/Creatinine Ratio 13 Glucose Level 157 H 70-105 MG/DL Calcium Level 9.4 8.5-10.1 MG/DL Corrected Calcium 9.3 8.5-10.1 MG/DL Total Bilirubin 0.4 0.1-1.0 MG/DL Aspartate Amino Transf (AST/SGOT) 29 5-34 U/L Alanine Aminotransferase (ALT/SGPT) 26 0-55 U/L Alkaline Phosphatase 78 40-136 U/L Troponin I < 0.028 <0.028 NG/ML Total Protein 6.6 6.4-8.2 GM/DL Albumin 4.1 3.2-4.5 GM/DL Urine Color YELLOW Urine Clarity CLEAR Urine pH 5 5-9 Urine Specific [place] 1.020 1.016-1.022 Urine Protein 1+ H NEGATIVE Urine Glucose (UA) NEGATIVE NEGATIVE Urine Ketones 1+ H NEGATIVE Urine Nitrite NEGATIVE NEGATIVE Urine Bilirubin NEGATIVE NEGATIVE Urine Urobilinogen NORMAL NORMAL MG/DL Urine Leukocyte Esterase NEGATIVE NEGATIVE Urine RBC (Auto) NEGATIVE NEGATIVE Urine RBC NONE /HPF Urine WBC NONE /HPF Urine Squamous Epithelial Cells 0-2 /HPF Urine Crystals NONE /LPF Urine Bacteria NEGATIVE /HPF Urine Casts NONE /LPF Urine Mucus NEGATIVE /LPF Urine Culture Indicated NO My Orders Orders - NIKHIL SOARES Ct Head Wo-R/O Stroke (09/20/18 ) Cbc With Automated Diff (09/20/18 05:30) Protime With Inr (09/20/18 05:30) Partial Thromboplastin Time (09/20/18 05:30) Comprehensive Metabolic Panel (09/20/18 05:30) Fibrin Degradation Products (09/20/18 05:30) Troponin I (09/20/18 05:30) Ua Culture If Indicated (09/20/18 05:30) Chest 1 View, Ap/Pa Only (09/20/18 05:30) Ekg Tracing (09/20/18 05:30) Nothing By Mouth (09/20/18 Breakfast) Accucheck Stat ONCE (09/20/18 05:30) Ed Iv/Invasive Line Start (09/20/18 05:30) Ed Iv/Invasive Line Start (09/20/18 05:30) Vital Signs Stroke Patient Q15M (09/20/18 05:30) O2 (09/20/18 05:30) Intake & Output 06,14,22 (09/20/18 05:30) Monitor-Rhythm Ecg Trace Only (09/20/18 05:30) Dysphagia Screening Tool (09/20/18 05:30) Lipid Panel (09/21/18 06:00) Catheter(Urinary) Insert & Ass 03,15 (09/20/18 05:39) Levetiracetam Injection (Keppra Injectio (09/20/18 06:45) Vital Signs/I&O 09/20/18 05:07 Temp 98.1 Pulse 85 Resp 18 B/P (MAP) 123/64 (83) Progress Progress Note : Time: 05:59 Progress Note Seems like she's had a seizure and is postictal. She's having rapid recovery with her initial NIH being 4 and she's already down to a 2. She still having some problems naming objects but her aphasia went from severe to mild after the CT scan. No evidence of hemorrhage. We'll discuss with [facility]. We will get some labs, urine etc. look for possible infectious source that might have triggered a seizure. Patient has a known brain injury. Initial ECG Impression Date: September 20, 2018 Initial ECG Impression Time: :19 Initial ECG Rate: 84 Initial ECG Rhythm: Normal Sinus Initial ECG Intervals: Normal Initial ECG Impression: Normal, Nonspecific Changes Comment No ST elevation or depression. Diagnostic Imaging Diagonstic Imaging: Xray Plain Films/CT/US/NM/MRI: chest (1v) Comments Poor inspiratory effort. No acute cardiopulmonary process noted. [facility] [place] NAME: SARAH POE [facility] REC#: [id number] PT STATUS: REG ER : 1950 PHYSICIAN: NIKHIL SOARES MD ADMIT DATE: 09/20/18/ER Draft Date of Exam:09/20/18 CHEST 1 VIEW, AP/PA ONLY INDICATION: Shortness of breath. COMPARISON: 06/27/2017. FINDINGS: Single view of the chest demonstrates clear lungs bilaterally. The heart is normal. There is no pneumothorax. Osseous structures are normal. IMPRESSION: Negative chest. Dictated on workstation # [id number] Dict: 09/20/18 0635 Trans: 09/20/18 0656 [id number] Interpreted by: NICOLASA LAUGHLIN Electronically signed by: Reviewed: Reviewed by Me Diagonstic Imaging: CT (head without contrast) Plain Films/CT/US/NM/MRI: head Comments Compared to June 2017 CT of the head. Unchanged encephalomalacia in the left frontal lobe with some calcifications. No acute hemorrhage, hydrocephalus or mass effect. NAME: SARAH POE [facility] REC#: [id number] PT STATUS: REG ER : 1950 PHYSICIAN: NIKHIL SOARES MD ADMIT DATE: 09/20/18/ER Draft Date of Exam:09/20/18 CT HEAD WO-R/O STROKE PROCEDURE: CT head wo r/o stroke. TECHNIQUE: Multiple contiguous axial images were obtained through the brain without the use of intravenous contrast. Auto Exposure Controls were utilized during the CT exam to meet ALARA standards for radiation dose reduction. INDICATION: Confusion, stroke COMPARISON: 06/27/2017 FINDINGS: Stable area of encephalomalacia seen in the left frontal parietal lobe. There is no new focus of acute ischemia or hemorrhage. Ventricular size is stable. There is no extra-axial fluid collection. No shift identified. The bony calvarium, visualized paranasal sinuses and mastoids are unchanged. Impression: No acute intracranial abnormality. Agree with preliminary report. Dictated on workstation # [id number] Dict: 09/20/18 0655 Trans: 09/20/18 0658 [facility] [id number] Interpreted by: NICOLASA LAUGHLIN Electronically signed by: Reviewed: Reviewed by Me Consults : Consults Notes Dr. Cristobal Gonsalez, [facility] stroke neurologist recommends that as long as she continues to improve he would not recommend MRI or further advanced imaging. He would however with her history of brain injury that correlates with the side of her symptoms and her repeat seizures recommend that she restart some AEDs. Departure Communication (Admissions) Time/Spoke to Admitting Phy: 07:15 Discussed case lab imaging EKG and discussion with neurology with Dr. Ochoa, primary care and she agrees to observe the patient with neurochecks on the floor. Impression Primary Impression: Seizure disorder as sequela of cerebrovascular accident Additional Impression: Post-ictal aphasia Disposition: ADMITTED INPATIENT Condition: Stable Admissions Decision to Admit Reason: Admit from ER (General) Decision to Admit/Date: September 20, 2018 Time/Decision to Admit Time: 06:10 Departure-Patient Inst. Referrals: ZULEYMA OCHOA MD (PCP/Family) Primary Care Physician NIKHIL SOARES September 20, 2018 05:46
--- OUTSIDE RECORDS SUMMARY | 2018-09-20 05:46 | XMS REPORT | CCD ---
Author Author aMrylu Ochoa Organization Marylu Ochoa MD, [facility] Address [address] [place] [address] Phone Care Team Providers Care Community Engagement Representative Name Role Phone PP Unavailable CCM Unavailable Summary Purpose Interface Exchange Insurance Providers Payer name Policy type / Coverage type Covered libertarian ID Effective Begin Date Effective End Date WPS Medicare Part B Medicare Part B [id number] 2015 Unknown [facility] Medicare Part B [id number] 2015 Unknown Family history Mother Diagnosis Age [...] Unknown Retired 10/16/[address]: 051383005 Never smoker 10/16/[address]: 041448265 Never drinks alcohol 10/16/2014 Allergies, Adverse Reactions, Alerts Substance Reaction Codes Entered Date Inactivated Date Status Penicillin Unknown 10/16/2014 No Inactive Date Active Past Medical History Illness Codes Condition Status Onset Date Resolved Date Dementia in other diseases classified elsewhere without behavioral disturbance ICD-9: 294.10 ICD-10: F02.80 Active 10/28/2017 Unknown Encounter for immunization ICD-9: V04.81 ICD-10: Z23 Active 03/25/2015 Unknown Other insomnia ICD-9: 327.09 ICD-10: G47.09 Active 02/22/2018 Unknown Allergy to other foods ICD-9: V15.05 ICD-10: Z91.018 Active 10/28/2017 Unknown Major depressive disorder, recurrent, mild ICD-9: 296.31 ICD-10: F33.0 Active 01/06/2016 Unknown Other allergic rhinitis ICD-9: 477.8 ICD-10: J30.89 Active 12/29/2017 Unknown Pain in unspecified joint ICD-9: 719.40 [...] immunization ICD-9: V04.81 ICD-10: Z23 03/25/2015 Active Other insomnia ICD-9: 327.09 ICD-10: G47.09 02/22/2018 Active Allergy to other foods ICD-9: V15.05 ICD-10: Z91.018 10/28/2017 Active Major depressive disorder, recurrent, mild ICD-9: 296.31 ICD-10: F33.0 01/06/2016 Active Other allergic rhinitis ICD-9: 477.8 ICD-10: J30.89 12/29/2017 Active Pain in unspecified joint ICD-9: 719.40 [...] Instructions Cymbalta 30 mg capsule,delayed release RxNorm: 713612 1 CAPSULE(S) PO DAILY 05/07/2018 11/02/2018 Active hydrocodone 10 mg-acetaminophen 325 mg tablet RxNorm: 706705 1 Tablet(s) PO Q6 as needed may fill on 03-27-18 04/28/201802/2019 Active diazepam 5 mg tablet RxNorm: 027349 1/2 Tablet(s) PO QHS as needed 04/13/2018 06/11/2018 Active hydrocodone 10 mg-acetaminophen 325 mg tablet RxNorm: 180593 1 Tablet(s) PO Q6 as needed may fill on 03-27-18 03/22/201808/2017 Inactive Aricept 10 mg tablet RxNorm: 978135 1 TABLET(S) PO DAILY 201707/12/2018 Active hydrocodone 10 mg-acetaminophen 325 mg tablet RxNorm: 641029 1 Tablet(s) PO Q6 as needed 02/26/2018 03/21/2018 Inactive diazepam 5 mg tablet RxNorm: 947167 1/2 Tablet(s) PO QHS as needed 02/22/2018 03/22/2018 Inactive hydrocodone 10 mg-acetaminophen 325 mg tablet RxNorm: 091244 1 Tablet(s) PO Q6 as needed 02/05/2018 02/25/2018 Inactive levetiracetam 500 mg tablet RxNorm: 016798 1 TABLET(S) PO BID 01/07/2018 04/06/2018 Inactive pt to finish out supply of liquid then start on tablets hydrocodone 10 mg-acetaminophen 325 mg tablet RxNorm: 889869 1 Tablet(s) PO Q6 as needed 12/29/2017 01/27/2018 Inactive hydrocodone 10 mg-acetaminophen 325 mg tablet RxNorm: 817567 1 Tablet(s) PO Q6 as needed 12/10/2017 12/28/2017 Inactive Zyrtec 10 mg tablet RxNorm: 7479033 1 Tablet(s) PO QAM for allergies 10/28/2017 05/25/2018 Active Zantac 75 mg tablet RxNorm: 576345 1 Tablet(s) PO BID 201702/24/2018 Inactive Aricept 10 mg tablet RxNorm: 809502 1 TABLET(S) PO DAILY 201702/23/2018 Inactive Cymbalta 30 mg capsule,delayed release RxNorm: 550789 1 Capsule(s) PO daily 10/22/2017 05/06/2018 Inactive hydrocodone 10 mg-acetaminophen 325 mg tablet RxNorm: 964771 1 Tablet(s) PO Q6 as needed 10/20/2017 11/18/2017 Inactive Voltaren 1 % topical gel RxNorm: 693790 4 Gram(s) TOP TID as needed for pain as needed 09/23/2017 09/17/2018 Active levetiracetam 500 mg tablet RxNorm: 346196 1 TABLET(S) PO BID 09/21/2017 10/20/2017 Inactive pt to finish out supply of liquid then start on tablets hydrocodone 10 mg-acetaminophen 325 mg tablet RxNorm: 918238 1 Tablet(s) PO Q6 as needed 08/27/2017 09/25/2017 Inactive Aricept 10 mg tablet RxNorm: 101445 1 Tablet(s) PO daily 201709/16/2017 Inactive Aricept 10 mg tablet RxNorm: 163542 1 Tablet(s) PO daily 201708/17/2017 Inactive hydrocodone 10 mg-acetaminophen 325 mg tablet RxNorm: 581249 1 Tablet(s) PO Q6 as needed 07/28/2017 08/26/2017 Inactive Zithromax Z-Myles 250 mg tablet RxNorm: 029039 1 Tablet(s) PO UD 06/25/2017 09/20/2017 Inactive hydrocodone 10 mg-acetaminophen 325 mg tablet RxNorm: 539411 1 Tablet(s) PO Q6 as needed 06/17/2017 07/16/2017 Inactive Namenda XR 28 mg capsule sprinkle,extended release RxNorm: 359806 1 Capsule(s) PO daily 05/08/2017 05/02/2018 Inactive Aricept 10 mg tablet RxNorm: 943793 1 Tablet(s) PO daily 201608/05/2017 Inactive hydrocodone 10 mg-acetaminophen 325 mg tablet RxNorm: 039612 1 Tablet(s) PO Q6 as needed 05/05/2017 06/03/2017 Inactive hydrocodone 10 mg-acetaminophen 325 mg tablet RxNorm: 197458 1 Tablet(s) PO Q6 as needed 04/06/2017 05/04/2017 Inactive diazepam 2 mg tablet RxNorm: 244693 1/2 - 1 Tablet(s) PO BID as needed 03/18/2017 09/20/2017 Inactive Cymbalta 30 mg capsule,delayed release RxNorm: 442017 1 Capsule(s) PO daily 03/09/2017 10/04/2017 Inactive levetiracetam 500 mg tablet RxNorm: 657922 1 Tablet(s) PO BID 03/09/2017 08/05/2017 Inactive pt to finish out supply of liquid then start on tablets Aricept 5 mg tablet RxNorm: 881589 1 Tablet(s) PO daily 201605/07/2017 Inactive pantoprazole 40 mg tablet,delayed release RxNorm: 704135 1 Tablet(s) PO daily 03/09/2017 07/06/2017 Inactive hydrocodone 10 mg-acetaminophen 325 mg tablet RxNorm: 758607 1 Tablet(s) PO Q6 as needed 12/04/2016 03/08/2017 Inactive hydrocodone 10 mg-acetaminophen 325 mg tablet RxNorm: 713941 1 Tablet(s) PO Q6 as needed 11/06/2016 12/03/2016 Inactive hydrocodone 10 mg-acetaminophen 325 mg tablet RxNorm: 351661 1 Tablet(s) PO Q6 as needed 10/08/2016 11/05/2016 Inactive Voltaren 1 % topical gel RxNorm: 946041 4 Gram(s) TOP TID as needed for pain as needed 09/25/2016 09/19/2017 Inactive hydrocodone 10 mg-acetaminophen 325 mg tablet RxNorm: 714067 1 Tablet(s) PO Q6 as needed 09/09/2016 10/07/2016 Inactive Voltaren 1 % topical gel RxNorm: 642843 1 Application TOP TID 09/08/2016 09/24/2016 Inactive Aricept 5 mg tablet RxNorm: 188751 1 Tablet(s) PO daily 201612/06/2016 Inactive Cymbalta 30 mg capsule,delayed release RxNorm: 836376 1 Capsule(s) PO daily 09/08/2016 12/06/2016 Inactive losartan 50 mg tablet RxNorm: 103969 1 Tablet(s) PO daily 201610/07/2016 Inactive clopidogrel 75 mg tablet RxNorm: 093169 75 MG PO DAILY 201609/20/2017 Inactive hydrocodone 10 mg-acetaminophen 325 mg tablet RxNorm: 406159 1 Tablet(s) PO Q6 as needed 08/15/2016 09/08/2016 Inactive hydrocodone 10 mg-acetaminophen 325 mg tablet RxNorm: 428334 1 Tablet(s) PO Q6 as needed 07/18/2016 08/14/2016 Inactive Cymbalta 30 mg capsule,delayed release RxNorm: 685965 1 Capsule(s) PO daily 07/03/2016 09/07/2016 Inactive Aricept 5 mg tablet RxNorm: 581807 1 Tablet(s) PO daily 201608/01/2016 Inactive Namenda XR 28 mg capsule sprinkle,extended release RxNorm: 742622 1 Capsule(s) PO daily 07/03/2016 05/07/2017 Inactive diazepam 5 mg tablet RxNorm: 763814 Tablet(s) PO daily as needed TAKE 1/2 TO 1 TABLET BY MOUTH DAILY NEEDED FOR ANXIETY 06/25/2016 03/06/2017 Inactive hydrocodone 10 mg-acetaminophen 325 mg tablet RxNorm: 511876 1 Tablet(s) PO Q6 as needed 06/19/2016 07/17/2016 Inactive Namenda XR 28 mg capsule sprinkle,extended release RxNorm: 107845 1 Capsule(s) PO daily 06/19/2016 07/02/2016 Inactive gabapentin 100 mg capsule RxNorm: 749027 1 Capsule(s) PO TID 03/08/2017 Inactive hydrocodone 10 mg-acetaminophen 325 mg tablet RxNorm: 909574 1 Tablet(s) PO Q6 as needed 05/27/2016 06/18/2016 Inactive diazepam 5 mg tablet RxNorm: 195735 Tablet(s) TAKE 1/2 TO 1 TABLET BY MOUTH DAILY NEEDED FOR ANXIETY 05/15/20162016 Inactive hydrocodone 10 mg-acetaminophen 325 mg tablet RxNorm: 074314 1 Tablet(s) PO Q6 as needed 04/29/2016 05/26/2016 Inactive omeprazole 40 mg capsule,delayed release RxNorm: 214507 Capsule(s) 1 CAPSULE(S) PO DAILY 04/28/2016 03/08/2017 Inactive diazepam 5 mg tablet RxNorm: 164228 Tablet(s) TAKE 1/2 TO 1 TABLET BY MOUTH DAILY NEEDED FOR ANXIETY 04/14/20162017 Inactive hydrocodone 10 mg-acetaminophen 325 mg tablet RxNorm: 194486 1 Tablet(s) PO Q6 as needed 04/01/2016 04/28/2016 Inactive Namenda XR 28 mg capsule sprinkle,extended release RxNorm: 577817 1 Capsule(s) PO daily 03/13/2016 06/18/2016 Inactive Namenda XR 28 mg capsule sprinkle,extended release RxNorm: 125378 1 Capsule(s) PO daily 03/12/2016 03/12/2016 Inactive diazepam 5 mg tablet RxNorm: 496672 Tablet(s) TAKE 1/2 TO 1 TABLET BY MOUTH DAILY NEEDED FOR ANXIETY 02/25/20162017 Inactive Namenda XR 28 mg capsule sprinkle,extended release RxNorm: 123729 1 Capsule(s) PO daily 02/04/2016 03/11/2016 Inactive hydrocodone 10 mg-acetaminophen 325 mg tablet RxNorm: 543885 1 Tablet(s) PO Q6 as needed 02/04/2016 03/04/2016 Inactive omeprazole 40 mg capsule,delayed release RxNorm: 700358 1 CAPSULE(S) PO DAILY 01/23/2016 04/27/2016 Inactive [SAVINGS FOR NON-COVERED DRUGS -- BIN:[id number], PCN: [id number], Group: XXXXX, ID# [id number], Questions: . THIS IS NOT INSURANCE.] sertraline 50 mg tablet RxNorm: 990302 TAKE 1 1/2 TABLET BY MOUTH ONCE DAILY 01/10/2016 03/08/2017 Inactive hydrocodone 10 mg-acetaminophen 325 mg tablet RxNorm: 393954 1 Tablet(s) PO Q6 as needed 01/07/2016 02/03/2016 Inactive diazepam 5 mg tablet RxNorm: 500206 Tablet(s) TAKE 1/2 TO 1 TABLET BY MOUTH DAILY NEEDED FOR ANXIETY 12/17/20152017 Inactive hydrocodone 10 mg-acetaminophen 325 mg tablet RxNorm: 821596 1 Tablet(s) PO Q6 as needed 12/10/2015 01/06/2016 Inactive gabapentin 100 mg capsule RxNorm: 704975 1 Capsule(s) PO TID 03/11/2016 Inactive gabapentin 100 mg capsule RxNorm: 064373 1 Capsule(s) PO TID 11/12/2015 Inactive hydrocodone 10 mg-acetaminophen 325 mg tablet RxNorm: 316251 1 Tablet(s) PO Q6 as needed 11/12/2015 12/09/2015 Inactive hydrocodone 10 mg-acetaminophen 325 mg tablet RxNorm: 471146 1 Tablet(s) PO Q6 as needed 10/16/2015 11/11/2015 Inactive hydrocodone 10 mg-acetaminophen 325 mg tablet RxNorm: 200289 1 Tablet(s) PO Q6 as needed 09/17/2015 10/15/2015 Inactive hydrocodone 10 mg-acetaminophen 325 mg tablet RxNorm: 330479 1 Tablet(s) PO Q6 as needed 08/16/2015 09/16/2015 Inactive diazepam 5 mg tablet RxNorm: 081010 Tablet(s) TAKE 1/2 TO 1 TABLET BY MOUTH DAILY NEEDED FOR ANXIETY 07/30/20152015 Inactive diazepam 5 mg tablet RxNorm: 774657 Tablet(s) TAKE 1/2 TO 1 TABLET BY MOUTH DAILY NEEDED FOR ANXIETY 07/27/20152015 Inactive hydrocodone 10 mg-acetaminophen 325 mg tablet RxNorm: 937645 1 Tablet(s) PO Q6 as needed 07/19/2015 08/15/2015 Inactive omeprazole 40 mg capsule,delayed release RxNorm: 006401 1 CAPSULE(S) PO DAILY 07/19/2015 01/14/2016 Inactive [SAVINGS FOR NON-COVERED DRUGS -- BIN:[id number], PCN: [id number], Group: XXXXX, ID# [id number], Questions: . THIS IS NOT INSURANCE.] hydrocodone 10 mg-acetaminophen 325 mg tablet RxNorm: 654755 1 Tablet(s) PO Q6 as needed 06/20/2015 07/18/2015 Inactive baclofen 10 mg tablet RxNorm: 486718 1 Tablet(s) PO TID 201506/07/2015 Inactive baclofen 10 mg tablet RxNorm: 503366 1 Tablet(s) PO TID 201507/07/2015 Inactive diazepam 5 mg tablet RxNorm: 557746 TAKE 1/2 TO 1 TABLET BY MOUTH DAILY NEEDED FOR ANXIETY 05/29/2015 04/12/2018 Inactive sertraline 50 mg tablet RxNorm: 961135 1.5 Tablet(s) PO daily 05/02/2015 10/28/2015 Inactive sertraline 50 mg tablet RxNorm: 954760 1.5 Tablet(s) PO daily 05/01/2015 05/01/2015 Inactive patient to call when needed diazepam 5 mg tablet RxNorm: 186871 1/2-1 Tablet(s) PO QDAY PRN 05/01/2015 05/29/2015 Inactive hydrocodone 10 mg-acetaminophen 325 mg tablet RxNorm: 053336 1 Tablet(s) PO Q6 as needed 04/23/2015 06/19/2015 Inactive hydrocodone 10 mg-acetaminophen 325 mg tablet RxNorm: 216260 1 Tablet(s) PO Q6 as needed 03/26/2015 04/22/2015 Inactive hydrocodone 10 mg-acetaminophen 325 mg tablet RxNorm: 184063 1 Tablet(s) PO Q6 as needed 02/26/2015 03/25/2015 Inactive Lyrica 50 mg capsule RxNorm: 454807 1 Capsule(s) PO TID 201402/03/2016 Inactive Lyrica 50 mg capsule RxNorm: 315473 1 Capsule(s) PO TID 201402/05/2015 Inactive Fish Oil [place] 3-6-9 300 mg-1,000 mg capsule,delayed release RxNorm: 1 Capsule(s) PO BID 01/30/2015 08/10/2016 Inactive diazepam 5 mg tablet RxNorm: 566674 1 Tablet(s) PO Q8 as needed 01/30/2015 04/30/2015 Inactive hydrocodone 10 mg-acetaminophen 325 mg tablet RxNorm: 527606 1 Tablet(s) PO Q6 as needed 01/19/2015 02/25/2015 Inactive sertraline 50 mg tablet RxNorm: 864792 1 Tablet(s) PO daily 04/30/2015 Inactive hydrocodone 10 mg-acetaminophen 325 mg tablet RxNorm: 403908 1 Tablet(s) PO Q6 as needed 12/12/2014 01/18/2015 Inactive hydrocodone 10 mg-acetaminophen 325 mg tablet RxNorm: 564919 1 Tablet(s) PO Q6 as needed 11/09/2014 12/11/2014 Inactive diazepam 5 mg tablet RxNorm: 170333 1 Tablet(s) PO Q8 as needed 11/01/2014 01/29/2015 Inactive omeprazole 40 mg capsule,delayed release RxNorm: 667472 1 Capsule(s) PO daily 10/02/2014 04/30/2015 Inactive [SAVINGS FOR NON-COVERED DRUGS -- BIN:[id number], PCN: ASPROD1, Group: XXXXX, ID# [id number], Questions: . THIS IS NOT INSURANCE.] omeprazole 40 mg capsule,delayed release RxNorm: 993318 1 Capsule(s) PO daily 10/02/2014 10/01/2014 Inactive melatonin 3 mg tablet RxNorm: 103190 1 Tablet(s) PO QHS No Start Date Active Vitamin D3 oral RxNorm : 2418 oral No Start Date Active diclofenac sodium 75 mg tablet,delayed release RxNorm: 821342 2 Tablet(s) PO daily No Start Date 04/30/2015 Inactive diazepam 5 mg tablet RxNorm: 040478 1 Tablet(s) PO TID No Start Date 10/31/2014 Inactive Multi Vitamin oral RxNorm: oral No Start Date 03/08/2017 Inactive Flonase nasal RxNorm: 92628 nasal No Start Date 03/08/2017 Inactive gabapentin 100 mg tablet RxNorm: 778444 1 Tablet(s) PO TID No Start Date 02/06/2015 Inactive hydrocodone 10 mg-acetaminophen 325 mg tablet RxNorm: 203357 1 Tablet(s) PO QID No Start Date 11/08/2014 Inactive Zithromax Z-Myles 250 mg tablet RxNorm: 390480 1 Tablet(s) PO UD No Start Date 06/24/2017 Inactive clopidogrel 75 mg tablet RxNorm: 325854 1 Tablet(s) PO daily No Start Date 09/03/2016 Inactive atorvastatin 40 mg tablet RxNorm: 396302 1 Tablet(s) PO daily No Start Date 09/20/2017 Inactive sertraline 50 mg tablet RxNorm: 515328 1 Tablet(s) PO daily No Start Date 01/04/2015 Inactive Medication Administered No Medication Administered data Immunizations Vaccine Codes Date Status Influenza CVX: 141 02/22/2018 completed Influenza CVX: 141 03/18/2017 completed Influenza CVX: 141 06/16/2016 completed Influenza CVX: 141 03/26/2015 completed Influenza CVX: 141 02/15/2014 completed Assessments Condition Codes Effective Dates Other insomnia ICD-10: G47.09 ICD-9: 327.09 02/22/2018 Encounter for immunization ICD-10: Z23 ICD-9: V04.81 02/22/2018 Dementia in other diseases classified elsewhere without behavioral disturbance ICD-10: F02.80 ICD-9: 294.10 02/22/2018 Other allergic rhinitis ICD-10: J30.89 ICD-9: 477.8 12/29/2017 Major depressive disorder, recurrent, mild ICD-10: F33.0 ICD-9: 296.31 12/29/2017 Pain in unspecified joint ICD-10: M25.50 ICD-9: 719.40 11/03/2017 Allergy to other foods ICD-10: Z91.018 ICD-9: V15.05 10/28/2017 Essential (primary) hypertension ICD-10: I10 ICD-9: 401.1 09/23/2017 Generalized anxiety disorder ICD-10: F41.1 ICD-9: 300.00 09/23/2017 Other transient cerebral ischemic attacks and [...] Visit Reason For Visit Effective Dates Notes insomnia 02/22/2018 food allergy 12/29/2017 food allergy [...] Observation Code Item Item Code Result Date C-Reactive Protein Qnt Crqnt CRP 0.1 mg/dl 11/04/2017 Sed Rate Ord21 ESR 2 mm/hr 11/04/2017 Comp Metabolic Wza370 NA 143 mEq/L 08/28/2017 Comp Metabolic Puv350 K 4.2 mEq/L 08/28/2017 Comp Metabolic Cdc582 CL 108 mEq/L 08/28/2017 Comp Metabolic Csw482 CO2 28.0 mEq/L 08/28/2017 Comp Metabolic Cec060 ANION GAP 11 08/28/2017 Comp Metabolic Hya390 GLUCOSE 89 mg/dL 08/28/2017 Comp Metabolic Ofv879 Creat 0.8 mg/dL 08/28/2017 Comp Metabolic Jqc642 eGFR 78 ml/min/1.73m2 08/28/2017 Comp Metabolic Txw135 BUN 19 mg/dL 08/28/2017 Comp Metabolic Rmv165 B/C Ratio 24.4 Ratio 08/28/2017 Comp Metabolic Wle396 CALCIUM 8.4 mg/dL 08/28/2017 Comp Metabolic Xaw124 ALK PHOS 52 U/L 08/28/2017 Comp Metabolic Cce344 AST(SGOT) 20 U/L 08/28/2017 Comp Metabolic Ahb972 ALT(SGPT) 14 U/L 08/28/2017 Comp Metabolic Qgl951 BILI T 0.5 mg/dL 08/28/2017 Comp Metabolic Nlt632 ALBUMIN 4.0 g/dL 08/28/2017 Comp Metabolic Xvf050 TPRO 5.9 g/dL 08/28/2017 Comp Metabolic Grr891 GLOB 1.9 g/dL 08/28/2017 Comp Metabolic Zhe595 A/G Ratio 2.1 Ratio 08/28/2017 Comp Metabolic Dya280 Osmo 287 mOsmo 08/28/2017 Cbc With Differential [...] 30.9 pg 08/28/2017 Cbc With Differential Ord2 [place]% 5.9 % 08/28/2017 Cbc With Differential Ord2 [...] 2.28 K/ul 08/28/2017 Cbc With Differential Ord2 [place] ABS# 0.4 K/ul 08/28/2017 Cbc With Differential [...] 31.7 pg 03/09/2017 Cbc With Differential Ord2 [place]% 6.1 % 03/09/2017 Cbc With Differential Ord2 [...] 1.78 K/ul 03/09/2017 Cbc With Differential Ord2 [place] ABS# 0.4 K/ul 03/09/2017 Cbc With Differential Ord2 Eos ABS# 0.1 K/ul 03/09/2017 Cbc With Differential Ord2 Baso ABS# 0.0 K/ul 03/09/2017 Tsh Ord6 hTSH II 0.87 uIU/mL 03/09/2017 %Hba1C Ypy932 % HbA1c 30017-8 4.9 % 03/09/2017 %Hba1C Cqy972 Gluc Ave 94 mg/dL 03/09/2017 Comp Metabolic Aqp252 NA 141 mEq/L 03/09/2017 Comp Metabolic Rnp981 K 3.8 mEq/L 03/09/2017 Comp Metabolic Vjv012 CL 105 mEq/L 03/09/2017 Comp Metabolic Scy463 CO2 29.0 mEq/L 03/09/2017 Comp Metabolic Kpe128 ANION GAP 11 03/09/2017 Comp Metabolic Zvt632 GLUCOSE 98 mg/dL 03/09/2017 Comp Metabolic Xri068 Creat 0.7 mg/dL 03/09/2017 Comp Metabolic Lah693 eGFR 93 ml/min/1.73m2 03/09/2017 Comp Metabolic Dix108 BUN 11 mg/dL 03/09/2017 Comp Metabolic Pjr407 B/C Ratio 16.4 Ratio 03/09/2017 Comp Metabolic Bzj739 CALCIUM 9.5 mg/dL 03/09/2017 Comp Metabolic Crn275 ALK PHOS 90 U/L 03/09/2017 Comp Metabolic Hth050 AST(SGOT) 21 U/L 03/09/2017 Comp Metabolic Eod751 ALT(SGPT) 15 U/L 03/09/2017 Comp Metabolic Zmb542 BILI T 0.6 mg/dL 03/09/2017 Comp Metabolic Edv816 ALBUMIN 4.5 g/dL 03/09/2017 Comp Metabolic Hdb538 TPRO 6.4 g/dL 03/09/2017 Comp Metabolic Msj193 GLOB 1.9 g/dL 03/09/2017 Comp Metabolic Xzb415 A/G Ratio 2.3 Ratio 03/09/2017 Comp Metabolic Hzm738 Osmo 281 mOsmo 03/09/2017 Comp Metabolic Enb818 NA 142 mEq/L 09/03/2016 Comp Metabolic Rxu451 K 3.9 mEq/L 09/03/2016 Comp Metabolic Mdq818 CL 107 mEq/L 09/03/2016 Comp Metabolic Otu285 CO2 26.0 mEq/L 09/03/2016 Comp Metabolic Spb031 ANION GAP 13 09/03/2016 Comp Metabolic Nlp025 GLUCOSE 107 mg/dL 09/03/2016 Comp Metabolic Hdy003 Creat 0.7 mg/dL 09/03/2016 Comp Metabolic Clw588 eGFR 85 ml/min/1.73m2 09/03/2016 Comp Metabolic Yap949 BUN 16 mg/dL 09/03/2016 Comp Metabolic Grb030 B/C Ratio 21.9 Ratio 09/03/2016 Comp Metabolic Xnk142 CALCIUM 8.8 mg/dL 09/03/2016 Comp Metabolic Ddq819 ALK PHOS 51 U/L 09/03/2016 Comp Metabolic Qey440 AST(SGOT) 24 U/L 09/03/2016 Comp Metabolic Kar420 ALT(SGPT) 20 U/L 09/03/2016 Comp Metabolic Hkr321 BILI T 0.7 mg/dL 09/03/2016 Comp Metabolic Rii342 ALBUMIN 4.1 g/dL 09/03/2016 Comp Metabolic Kjy688 TPRO 6.1 g/dL 09/03/2016 Comp Metabolic Xgz114 GLOB 2.0 g/dL 09/03/2016 Comp Metabolic Sdc797 A/G Ratio 2.1 Ratio 09/03/2016 Comp Metabolic Prr544 Osmo 285 mOsmo 09/03/2016 Cbc With Differential [...] 30.3 pg 09/03/2016 Cbc With Differential Ord2 [place]% 6.5 % 09/03/2016 Cbc With Differential Ord2 [...] 1.53 K/ul 09/03/2016 Cbc With Differential Ord2 [place] ABS# 0.4 K/ul 09/03/2016 Cbc With Differential [...] Ord15 CALCIUM 9.1 mg/dL 12/21/2015 Comp Metabolic Qcq796 NA 138 mEq/L 07/06/2015 Comp Metabolic Duq356 K 3.9 mEq/L 07/06/2015 Comp Metabolic Csn024 CL 103 mEq/L 07/06/2015 Comp Metabolic Fhs921 CO2 28.0 mEq/L 07/06/2015 Comp Metabolic Eqk588 ANION GAP 11 07/06/2015 Comp Metabolic Znf643 GLUCOSE 114 mg/dL 07/06/2015 Comp Metabolic Egj547 Creat 0.7 mg/dL 07/06/2015 Comp Metabolic Ydb597 eGFR 97 ml/min/1.73m2 07/06/2015 Comp Metabolic Pvs962 BUN 11 mg/dL 07/06/2015 Comp Metabolic Hqb785 B/C Ratio 16.9 Ratio 07/06/2015 Comp Metabolic Cng511 CALCIUM 9.1 mg/dL 07/06/2015 Comp Metabolic Kli712 ALK PHOS 57 U/L 07/06/2015 Comp Metabolic Ikf960 AST(SGOT) 26 U/L 07/06/2015 Comp Metabolic Dig152 ALT(SGPT) 17 U/L 07/06/2015 Comp Metabolic Mri030 BILI T 0.6 mg/dL 07/06/2015 Comp Metabolic Nxg576 ALBUMIN 4.6 g/dL 07/06/2015 Comp Metabolic Xid222 TPRO 6.7 g/dL 07/06/2015 Comp Metabolic Onv936 GLOB 2.1 g/dL 07/06/2015 Comp Metabolic Oit854 A/G Ratio 2.2 Ratio 07/06/2015 Comp Metabolic Xdm108 Osmo 276 mOsmo 07/06/2015 Lipid Ord30 CHOL 228 mg/dL 07/06/2015 Lipid Ord30 HDL 48.0 mg/dl 07/06/2015 Lipid Ord30 TRIG 176 mg/dL 07/06/2015 Lipid Ord30 LDL 145 mg/dL 07/06/2015 Lipid Ord30 C/HDL 4.8 Ratio 07/06/2015 Tsh Ord6 hTSH II 0.74 uIU/mL 05/01/2015 Comp Metabolic Zpl283 NA 141 mEq/L 05/01/2015 Comp Metabolic Bnv458 K 4.0 mEq/L 05/01/2015 Comp Metabolic Goy649 CL 106 mEq/L 05/01/2015 Comp Metabolic Dsg547 CO2 26.0 mEq/L 05/01/2015 Comp Metabolic Tga668 ANION GAP 13 05/01/2015 Comp Metabolic Iwv830 GLUCOSE 124 mg/dL 05/01/2015 Comp Metabolic Zqa563 Creat 0.8 mg/dL 05/01/2015 Comp Metabolic Pqk892 eGFR 79 ml/min/1.73m2 05/01/2015 Comp Metabolic Glx902 BUN 13 mg/dL 05/01/2015 Comp Metabolic Axm309 B/C Ratio 16.7 Ratio 05/01/2015 Comp Metabolic Auc805 CALCIUM 9.3 mg/dL 05/01/2015 Comp Metabolic Neb447 ALK PHOS 54 U/L 05/01/2015 Comp Metabolic Cfb695 AST(SGOT) 21 U/L 05/01/2015 Comp Metabolic Vkh910 ALT(SGPT) 14 U/L 05/01/2015 Comp Metabolic Hzh392 BILI T 0.5 mg/dL 05/01/2015 Comp Metabolic Ipd513 ALBUMIN 4.5 g/dL 05/01/2015 Comp Metabolic Zdz893 TPRO 6.4 g/dL 05/01/2015 Comp Metabolic Fec275 GLOB 1.9 g/dL 05/01/2015 Comp Metabolic Kqv004 A/G Ratio 2.4 Ratio 05/01/2015 Comp Metabolic Das636 Osmo 283 mOsmo 05/01/2015 Cbc With Differential [...] Differential Ord2 RDW 16.8 % 05/01/2015 %Hba1C Atx165 % HbA1c 30699-1 5.4 % 01/29/2015 %Hba1C Juv125 Gluc Ave 108 mg/dL 01/29/2015 Lipid Ord30 CHOL 221 mg/dL 01/26/2015 Lipid Ord30 HDL 37.0 mg/dl 01/26/2015 Lipid Ord30 TRIG 274 mg/dL 01/26/2015 Lipid Ord30 LDL 129 mg/dL 01/26/2015 Lipid Ord30 C/HDL 6.0 Ratio 01/26/2015 Tsh Ord6 hTSH II 0.85 uIU/mL 01/26/2015 Comp Metabolic Jxb762 NA 137 mEq/L 01/26/2015 Comp Metabolic Buw290 K 4.0 mEq/L 01/26/2015 Comp Metabolic Neg548 CL 104 mEq/L 01/26/2015 Comp Metabolic Nkv760 CO2 27.0 mEq/L 01/26/2015 Comp Metabolic Zrs796 ANION GAP 10 01/26/2015 Comp Metabolic Rze560 GLUCOSE 131 mg/dL 01/26/2015 Comp Metabolic Pgc919 Creat 0.8 mg/dL 01/26/2015 Comp Metabolic Xts237 eGFR 77 ml/min/1.73m2 01/26/2015 Comp Metabolic Czb282 BUN 16 mg/dL 01/26/2015 Comp Metabolic Qme879 B/C Ratio 20.0 Ratio 01/26/2015 Comp Metabolic Qzl251 CALCIUM 9.1 mg/dL 01/26/2015 Comp Metabolic Roc548 ALK PHOS 66 U/L 01/26/2015 Comp Metabolic Xso195 AST(SGOT) 24 U/L 01/26/2015 Comp Metabolic Cwq767 ALT(SGPT) 20 U/L 01/26/2015 Comp Metabolic Qkt165 BILI T 0.4 mg/dL 01/26/2015 Comp Metabolic Kot207 ALBUMIN 4.2 g/dL 01/26/2015 Comp Metabolic Gnc833 TPRO 6.4 g/dL 01/26/2015 Comp Metabolic Jky981 GLOB 2.2 g/dL 01/26/2015 Comp Metabolic Vil566 A/G Ratio 1.9 Ratio 01/26/2015 Comp Metabolic Kas359 Osmo 277 mOsmo 01/26/2015 Cbc With Differential [...] Differential Ord2 RDW 15.5 % 01/26/2015 B12 Vvj986 B12 669.00 pg/ml 01/26/2015 Review of Systems [...] normal 02/22/2018 None Full Exam - General 1995 Ears/Nose/Throat lips/teeth/gingiva Overall: benign lips 02/22/2018 None [...] NO PRSV 4 BLANCA 3 YRS+ CPT-4: 44337 02/22/2018 ADMIN INFLUENZA VIRUS VAC CPT-4: G0008 03/18/2017 FLU VACC PRSV FREE INC ANTIG CPT-4: 09638 03/18/2017 INITIAL PREVENTIVE EXAM CPT-4: G0402 07/06/2015 IIV4 FLU VACC NO PRESERV ID Formatting Model/CDA Sections, Assigned to SNOMED CT: [id number] CPT-4: 93962Tgmtvlp 03/26/2015 IMMUNIZATION ADMIN CPT -4: 42959 03/26/2015 Vital Signs Date Vital 02/22/2018 Blood Pressure 1: 140/70 Code : 8480-6 BMI: 26.3 Code : 01353-0 Heart Rate 1 : 60 bpm Height: 5'1" SpO2: 97% Weight: 139 lbs 12/29/2017 Blood Pressure 1: 110/58 Code : 8480-6 BMI: 23.8 Code : 22273-3 Heart Rate 1 : 56 bpm Height: 5'1" SpO2: 98% Weight: 126 lbs 10/28/2017 Blood Pressure 1: 96/68 Code : 8480-6 BMI: 21.7 Code : 54495-4 Heart Rate 1 : 68 bpm Height: 5'1" SpO2: 98% Weight: 115 lbs 09/23/2017 Blood Pressure 1: 134/72 Code : 8480-6 BMI: 22.5 Code : 20506-0 Heart Rate 1 : 72 bpm Height: 5'1" SpO2: 97% Weight: 119 lbs 03/18/2017 Blood Pressure 1: 140/72 Code : 8480-6 BMI: 21.5 Code : 64680-1 Heart Rate 1 : 64 bpm Height: 5'1" SpO2: 96% Weight: 114 lbs 03/09/2017 Blood Pressure 1: 120/72 Code : 8480-6 BMI: 21.5 Code : 99893-8 Heart Rate 1 : 75 bpm Height: 5'1" SpO2: 97% Weight: 114 lbs 12/09/2016 Blood Pressure 1: 130/76 Code : 8480-6 BMI: 23.8 Code : 96005-4 Heart Rate 1 : 68 bpm Height: 5'1" SpO2: 98% Weight: 126 lbs 09/08/2016 Blood Pressure 1: 162/80 Code : 8480-6 Blood Pressure 2: 145/90 Code: 8480-6 BMI: 24.7 Code: 63714-7 Heart Rate 1: 77 bpm Height: 5'1" SpO2: 97% Weight: 130 lbs 8 oz 08/11/2016 Blood Pressure 1: 130/80 Code : 8480-6 BMI: 25.9 Code : 48741-7 Heart Rate 1 : 62 bpm Height: 5'1" SpO2: 97% Weight: 137 lbs 07/03/2016 Blood Pressure 1: 134/74 Code : 8480-6 BMI: 26.8 Code : 75409-6 Heart Rate 1 : 74 bpm Height: 5'1" SpO2: 97% Weight: 142 lbs 06/19/2016 Blood Pressure 1: 118/66 Code : 8480-6 Heart Rate 1: 72 bpm SpO2: 96% Weight: 142 lbs 02/04/2016 Blood Pressure 1: 130/80 Code : 8480-6 BMI: 27.2 Code : 44238-1 Heart Rate 1 : 76 bpm Height: 5'1" SpO2: 96% Weight: 144 lbs 01/07/2016 Blood Pressure 1: 136/64 Code : 8480-6 BMI: 27.6 Code : 27365-6 Heart Rate 1 : 73 bpm Height: 5'1" SpO2: 987% Weight: 146 lbs 12/17/2015 Blood Pressure 1: 128/86 Code : 8480-6 BMI: 27.0 Code : 34211-8 Heart Rate 1 : 59 bpm Height: 5'1" SpO2: 96% Weight: 143 lbs 10/16/2015 Blood Pressure 1: 122/78 Code : 8480-6 BMI: 25.7 Code : 19562-8 Heart Rate 1 : 71 bpm Height: 5'1" SpO2: 96% Weight: 136 lbs 08/16/2015 Blood Pressure 1: 138/88 Code : 8480-6 BMI: 27.0 Code : 95998-2 Heart Rate 1 : 75 bpm Height: 5'1" SpO2: 98% Weight: 143 lbs 07/06/2015 Blood Pressure 1: 120/72 Code : 8480-6 BMI: 26.5 Code : 00922-0 Heart Rate 1 : 72 bpm Height: 5'1" SpO2: 96% Weight: 140 lbs 06/07/2015 Blood Pressure 1: 152/86 Code : 8480-6 BMI: 26.1 Code : 54302-2 Heart Rate 1 : 88 bpm Height: 5'1" SpO2: 97% Weight: 138 lbs 05/01/2015 Blood Pressure 1: 120/80 Code : 8480-6 BMI: 27.0 Code : 77894-3 Heart Rate 1 : 82 bpm Height: 5'1" SpO2: 98% Temperature: 36.7 (C) / 98.0 (F) Weight: 143 lbs 03/26/2015 Blood Pressure 1: 140/80 Code : 8480-6 BMI: 28.0 Code : 54971-9 Heart Rate 1 : 69 bpm Height: 5'1" SpO2: 96% Weight: 148 lbs 03/13/2015 Blood Pressure 1: 128/70 Code : 8480-6 BMI: 28.2 Code : 09871-7 Heart Rate 1 : 76 bpm Height: 5'1" Weight: 149 lbs 01/30/2015 Blood Pressure 1: 142/68 Code : 8480-6 BMI: 28.7 Code : 97091-8 Heart Rate 1 : 86 bpm Height: 5'1" SpO2: 96% Weight: 152 lbs 10/16/2014 Blood Pressure 1: 160/88 Code : 8480-6 BMI: 28.2 Code : 25246-8 Heart Rate 1 : 66 bpm Height: 5'1" Weight: 149 lbs Functional Status No Functional Status data History of Present Illness Symptom Name Status Result Effective Date Notes insomnia Quality difficulty falling asleep 02/22/2018 None [...] data Encounters Encounter Performer Location Codes Date 55658 EST. PATIENT, LEVEL III Diagnosis: Other insomnia[ICD10: G47.09] Diagnosis: Dementia in other diseases classified elsewhere without behavioral disturbance[ICD10: F02.80] Diagnosis: Encounter for immunization[ICD10: Z23] Angelica Ochoa MD, [facility] CPT-4: 83647 02/22/2018 46870 EST. PATIENT, LEVEL IV Diagnosis: Dementia in other diseases classified elsewhere without behavioral disturbance[ICD10: F02.80] Diagnosis: Major depressive disorder, recurrent, mild[ICD10: F33.0] Diagnosis: Other allergic rhinitis[ICD10: J30.89] Angelica Ochoa MD, [facility] CPT-4: 11200 12/29/2017 ([id number]) 23221 EST. PATIENT, LEVEL IV Diagnosis: Dementia in other diseases classified elsewhere without behavioral disturbance[ICD10: F02.80] Diagnosis: Major depressive disorder, recurrent, mild[ICD10: F33.0] Diagnosis: Allergy to other foods[ICD10: Z91.018] Marylu Ochoa MD, [facility] CPT-4: 19368 10/28/2017 33274 EST. 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 PATIENT, LEVEL IV Diagnosis: Essential (primary) hypertension[ICD10: I10] Diagnosis: Major depressive disorder, recurrent, moderate[ICD10: F33.1] Diagnosis: Underweight[ICD10: R63.6] Diagnosis: Localization-related (focal) (partial) symptomatic epilepsy and epileptic syndromes with simple partial seizures, not intractable, without status epilepticus[ICD10: G40.109] Maryul Ochoa MD, [facility] CPT-4: 58428 03/09/2017 ([id number]) 36896 EST. PATIENT, LEVEL IV Diagnosis: Mixed hyperlipidemia[ICD10: E78.2] Diagnosis: Chronic pain syndrome[ICD10: G89.4] Diagnosis: Major depressive disorder, recurrent, mild[ICD10: F33.0] Marylu Ochoa MD, [facility] CPT-4: 68811 12/09/2016 ([id number]) 66891 EST. PATIENT, LEVEL IV Diagnosis: Essential (primary) hypertension[ICD10: I10] Diagnosis: Low back pain[ICD10: M54.5] Diagnosis: Personal history of transient ischemic attack (TIA), and cerebral infarction without residual deficits[ICD10: Z86.73] Diagnosis: Major depressive disorder, recurrent, moderate[ICD10: F33.1] Diagnosis: Other sleep apnea[ICD10: G47.39] Marylu Ochoa MD, [facility] CPT-4: 64235 09/08/2016 ([id number]) 20659 EST. 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 PATIENT, LEVEL III Diagnosis: Chronic pain syndrome[ICD10: G89.4] Diagnosis: Low back pain[ICD10: M54.5] Diagnosis: Major depressive disorder, recurrent, mild[ICD10: F33.0] Diagnosis: Mild cognitive impairment, so stated[ICD10: G31.84] Angelica Ochoa MD, [facility] CPT-4: 80281 07/03/2016 ([id number]) 70774 EST. PATIENT, LEVEL III Diagnosis: Chronic pain syndrome[ICD10: G89.4] Donna Ochoa MD, [facility] CPT-4: 41793 06/19/2016 ([id number]) 77991 EST. PATIENT, LEVEL IV Diagnosis: Chronic pain syndrome[ICD10: G89.4] Diagnosis: Mild cognitive impairment, so stated[ICD10: G31.84] Donna Ochoa MD, [facility] CPT-4: 14975 02/04/2016 ([id number]) 42603 EST. PATIENT, LEVEL IV Diagnosis: Chronic pain syndrome[ICD10: G89.4] Diagnosis: Mild cognitive impairment, so stated[ICD10: G31.84] Diagnosis: Major depressive disorder, recurrent, mild[ICD10: F33.0] Donna Ochoa MD , [facility] CPT-4: 26119 01/07/2016 ([id number]) 13356 EST. PATIENT, LEVEL IV Diagnosis: Chronic pain syndrome[ICD10: G89.4] Diagnosis: Headache[ICD10: R51] Diagnosis: Major depressive disorder, recurrent, mild[ICD10: F33.0] Diagnosis: Mixed hyperlipidemia[ICD10: E78.2] Donna Ochoa MD, [facility] CPT-4: 52045 12/17/2015 ([id number]) 07558 EST. PATIENT, LEVEL III Diagnosis: Chronic pain syndrome[ICD10: G89.4] Diagnosis: Major depressive disorder, recurrent, mild[ICD10: F33.0] Donna Ochoa MD , [facility] CPT-4: 74179 10/16/2015 ([id number]) 52688 EST. PATIENT, LEVEL III Diagnosis: Low back pain[ICD10: M54.5] Donna Ochoa MD, [facility] CPT-4: 85466 08/16/2015 ([id number]) 05095 EST. 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 PATIENT, LEVEL IV Diagnosis: Major depressive disorder, recurrent, mild[ICD10: F33.0] Diagnosis: Chronic pain syndrome[ICD10: G89.4] Diagnosis: Other fatigue[ICD10: R53.83] Donna Ochoa MD, [facility] CPT-4: 65659 05/01/2015 ([id number]) 96939 EST. PATIENT, LEVEL II Diagnosis: Plantar fascial fibromatosis[ICD10: M72.2] Donna Ochoa MD, [facility] CPT-4: 84767 03/26/2015 ([id number]) 72754 EST. PATIENT, LEVEL III Diagnosis: Plantar fascial fibromatosis[ICD10: M72.2] Donna Ochoa MD, [facility] CPT-4: 34334 03/13/2015 ([id number]) 21846 EST. PATIENT, LEVEL III Diagnosis: Hyperlipidemia[ICD9: 272.4] Diagnosis: ALLERGIC RHINITIS[ICD9: 477.9] Diagnosis: Chronic pain syndrome[ICD9: 338.4] Donna Ochoa MD, [facility] CPT-4: 84589 01/30/2015 ([id number]) OFFICE VISIT, NEW - LEVEL 4 Diagnosis: ESOPHAGEAL REFLUX[ICD9: 530.81] Diagnosis: Peripheral neuropathy[ICD9: 356.9] Diagnosis: Chronic pain syndrome[ICD9: 338.4] Diagnosis: OSTEOARTH NOS-UNSPEC[ICD9: 715.90] Diagnosis: DEPRESSIVE DISORDER NEC[ICD9: 311] Marylu Ochoa MD, [facility] CPT-4: 89163 10/16/2014 Plan of Care Planned Activity Notes Codes Status Date Appointment: Angelica [place] [facility]el[facility] (30 min) Complex 05/05/2018 Appointment: Angelica [place] WPtel: [facility] (15 min) Moderate 03/24/2018 Visit Plan: [...] of treatment. 02/22/2018 Appointment: Angelica Cuba WPtel: [facility] (15 min) Moderate 02/22/2018 Appointment: Angelica Cuba WPtel: [facility] (15 min) Moderate 02/22/2018 Patient Education: Patient Medication Summary Completed 02/22/2018 Appointment: Angelica Cuba WPtel: [address] [place], [place] [id number] (15 min) Moderate 02/18/2018 Visit Plan: Dementia [...] Summary Completed 12/29/2017 Appointment: Angelica Cuba WPtel: [address] [place], [place] [id number] (15 min) Moderate 12/23/2017 Patient Education: Patient [...] of adalgisa. 10/28/2017 Appointment: Marylu Ochoa WPtel: 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 09/23/2017 Appointment: Angelica Cuba WPtel: [facility] (30 min) Complex 09/23/2017 Patient Education: Patient Medication Summary Completed 09/23/2017 Appointment: [facility]el[facility] [phone] [facility] (15 min) Moderate 08/26/2017 Appointment: Angelica [place] WPtel: 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 03/09/2017 Appointment: Marylu [facility]el[facility] [phone] [facility] (30 min) [facility] 03/09/2017 Patient Education: Patient Medication Summary Completed 03/09/2017 Appointment: Donna [place] [facility]el[facility] [phone] [phone] (30 min) Complex 03/06/2017 Appointment: Marylu Ochoa WPtel: [facility] (15 min) Moderate 01/08/2017 Visit Plan: Hyperlipidemia [...] Summary Completed 12/09/2016 Appointment: Marylu Ochoa WPtel: [address] [place], [place] [address] (15 min) Moderate 11/11/2016 Appointment: Angelica Cuba WPtel: [facility] (30 min) Complex 10/09/2016 Visit Plan: Hypertension [...] loss, htn. 09/08/2016 Appointment: Marylu Ochoa WPtel: [facility] (15 min) Moderate 09/08/2016 Patient Education: Patient Medication Summary Completed 09/08/2016 Appointment: Angel[facility] [place] [facility] [phone] [facility] (30 min) Complex 08/19/2016 Visit Plan: [...] with plavix 08/11/2016 Appointment: Marylu Ochoa WPtel: [facility] (15 min) Moderate 08/11/2016 Patient [...] or concerns. 07/03/2016 Appointment: Angelica Cuba WPtel: [facility] (30 min) Complex 07/03/2016 Patient Education: Patient Medication Summary Completed 07/03/2016 Care Plan: Referral Order SNOMED-CT : [id number] Pending 07/03/2016 Visit Plan: Chronic Pain Syndrome - pt has chronic pain - has been maintained on current medications, has not sought out other medications , only uses PRN pain medications as directed, and understands the consequences of over-medication. 06/19/2016 Appointment: Donna [place] WPtel: [phone] (30 min) Complex 06/19/2016 Patient Education: Patient Medication Summary Completed 06/19/2016 Appointment: Donna [place] WPtel: [facility] (30 min) Complex 06/05/2016 Visit Plan: Chronic Pain Syndrome - pt has chronic pain - has been maintained on current medications, has not sought out other medications , only uses PRN pain medications as directed, and understands the consequences of over-medication. Mild cognitive impairment-discussed with Dr Ochoa- Jermana starter pack 02/04/2016 Appointment: Donna [place] WPtel: [facility] [place] [address] (30 min) Complex 02/04/2016 Patient Education: Patient Medication Summary Completed 02/04/2016 Appointment: Donna [place] WPtel: [facility] [place] [address] (30 min) Complex 01/14/2016 Visit Plan: Chronic [...] of testing. 01/07/2016 Appointment: Donna Walden WPtel: [facility] [place] [address] (15 min) Moderate 01/07/2016 Patient Education: Patient Medication Summary Completed 01/07/2016 Visit Plan: Chronic Pain Syndrome - pt has chronic pain - has been maintained on current medications, has not sought out other medications , only uses PRN pain medications as directed, and understands the consequences of over-medication. Headaches-memory loss-schedule MRI brain Hyperlipidemia- check fasting labs Oqqdijmfoj-iaraqk-cg change in medications at this time 12/17/2015 Patient Education: Patient Medication Summary Completed 12/17/2015 Appointment: Donna [place] WPtel: [phone] (30 min) Complex 12/13/2015 Visit Plan: [...] current medications. 10/16/2015 Appointment: Donna [place] WPtel: [phone] (30 min) Complex 10/16/2015 Patient Education: [...] symptoms. 06/07/2015 Appointment: [facility]Ptel[phone] [facility] (15 min) Moderate 06/07/2015 Patient [...] shoes - discussed inserts and referral to roofing foreman-patient wants to wait but will let us [...] symptoms. 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 restart cymbalta 30mg daily once the liquid [...] to medications. TIA - continue with plavix ALEVE 2 TABS TWICE DAILY WITH FOOD [...] next office visit after review of testing. i want to have Roxy start on [...] 90 day supply of Aricept through [facility] Add 50 mg Losartan daily for hypertension [...] - 90 day supply of Aricept through [facility], refill namenda mammogram order - given to patient - she is to schedule in [place] . Chronic Pain Syndrome - pt has [...] Headaches-memory loss-schedule MRI brain Hyperlipidemia-check fasting labs Ezktuurqmc-gxzvsx-jr change in medications at this time INCREASE SERTRALINE TO 1.5 TABLETS DAILY . [...] No change in current medications. Fatigue-check labs Influenza vaccine today in the office . Plantar fasciitis- pt was educated that this is an inflammatory process, need to stretch the foot and reduce inflammation by using a frozen bottle of water or a tennis ball on the bottom of the foot at least three times a day until the pain is improved. Recommend supportive shoes -discussed inserts and referral to roofing foreman-patient wants to wait but will let us know if she wants to see Dr Roger. Namenda starter pack . Chronic Pain Syndrome - pt has chronic pain - has been maintained on current medications, has not sought out other medications, only uses PRN pain medications as directed, and understands the consequences of over-medication. Mild cognitive impairment-discussed with Dr Ochoa-Judson starter pack turn the lights down in the evening [...] about referring her to Dr. Dexter grullon [place] (neurologist) . 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 Start Cymbalta (duloxetine) 30mg daily and take [...] with any questions or concerns. . Chronic Pain Syndrome - pt [...] No change in current medications. Refill Cymbalta Voltaren gel for low back pain 90 day supply of Aricept through [facility] Add 50 mg Losartan daily for hypertension [...] - 90 day supply of Aricept through [facility], refill namenda Suspected sleep disordered breathing with episodes of nocturnal fits of not breathing correctly - pt advised of need for an overnight oxygen study to be done to see if there is nocturnal hypoxemia contributing to her memory loss, htn. . Chronic Pain Syndrome - pt has chronic pain - has been maintained on current medications, has not sought out other medications, only uses PRN pain medications as directed, and understands the consequences of over- medication.
[2018-09-20 05:50] LABS: FIBRIN DEGRADATION PRODUCTS 1.21 UG/ML (0.00-0.49); INR 0.9 (0.8-1.4); PROTHROMBIN TIME PATIENT 12.8 SEC (12.2-14.7)
--- OUTSIDE RECORDS SUMMARY | 2018-09-20 05:50 | XMS REPORT | CCD ---
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 Name Role Phone PP Unavailable CCM Unavailable Summary Purpose Interface Exchange Insurance Providers Payer name Policy type / Coverage type Covered democrat ID Effective Begin Date Effective End Date WPS Medicare Part B Medicare Part B [id number] 2015 Unknown [facility] Medicare Part B [id number] 2015 Unknown Family history Mother Diagnosis Age [...] Unknown Retired 10/16/[address]: 086790723 Never smoker 10/16/[address]: 554000245 Never drinks alcohol 10/16/2014 Allergies, Adverse Reactions, [...] hydrocodone 10 mg-acetaminophen 325 mg tablet RxNorm: 721591 1 Tablet(s) PO Q6 as needed may fill on 03-27-18 04/28/201802/2019 Active diazepam 5 mg tablet RxNorm: 865246 1/2 Tablet(s) PO QHS as needed 04/13/2018 06/11/2018 Active hydrocodone 10 mg-acetaminophen 325 mg tablet RxNorm: 480488 1 Tablet(s) PO Q6 as needed may fill on 03-27-18 03/22/201808/2017 Inactive Aricept 10 mg tablet RxNorm: 621342 1 TABLET(S) PO DAILY 201707/12/2018 Active hydrocodone 10 mg-acetaminophen 325 mg tablet RxNorm: 802576 1 Tablet(s) PO Q6 as needed 02/26/2018 03/21/2018 Inactive diazepam 5 mg tablet RxNorm: 671816 1/2 Tablet(s) PO QHS as needed 02/22/2018 03/22/2018 Inactive hydrocodone 10 mg-acetaminophen 325 mg tablet RxNorm: 390450 1 Tablet(s) PO Q6 as needed 02/05/2018 02/25/2018 Inactive levetiracetam 500 mg tablet RxNorm: 320725 1 TABLET(S) PO BID 01/07/2018 04/06/2018 Inactive pt to finish out supply of liquid then start on tablets hydrocodone 10 mg-acetaminophen 325 mg tablet RxNorm: 080681 1 Tablet(s) PO Q6 as needed 12/29/2017 01/27/2018 Inactive hydrocodone 10 mg-acetaminophen 325 mg tablet RxNorm: 924403 1 Tablet(s) PO Q6 as needed 12/10/2017 12/28/2017 Inactive Zyrtec 10 mg tablet RxNorm: 6275560 1 Tablet(s) PO QAM for allergies 10/28/2017 05/25/2018 Active Zantac 75 mg tablet RxNorm: 755815 1 Tablet(s) PO BID 201702/24/2018 Inactive Aricept 10 mg tablet RxNorm: 300339 1 TABLET(S) PO DAILY 201702/23/2018 Inactive Cymbalta 30 mg capsule,delayed release RxNorm: 175368 1 Capsule(s) PO daily 10/22/2017 05/19/2018 Active hydrocodone 10 mg-acetaminophen 325 mg tablet RxNorm: 365898 1 Tablet(s) PO Q6 as needed 10/20/2017 11/18/2017 Inactive Voltaren 1 % topical gel RxNorm: 814614 4 Gram(s) TOP TID as needed for pain as needed 09/23/2017 09/17/2018 Active levetiracetam 500 mg tablet RxNorm: 473817 1 TABLET(S) PO BID 09/21/2017 10/20/2017 Inactive pt to finish out supply of liquid then start on tablets hydrocodone 10 mg-acetaminophen 325 mg tablet RxNorm: 168899 1 Tablet(s) PO Q6 as needed 08/27/2017 09/25/2017 Inactive Aricept 10 mg tablet RxNorm: 171041 1 Tablet(s) PO daily 201709/16/2017 Inactive Aricept 10 mg tablet RxNorm: 246322 1 Tablet(s) PO daily 201708/17/2017 Inactive hydrocodone 10 mg-acetaminophen 325 mg tablet RxNorm: 941906 1 Tablet(s) PO Q6 as needed 07/28/2017 08/26/2017 Inactive Zithromax Z-Myles 250 mg tablet RxNorm: 797074 1 Tablet(s) PO UD 06/25/2017 09/20/2017 Inactive hydrocodone 10 mg-acetaminophen 325 mg tablet RxNorm: 422607 1 Tablet(s) PO Q6 as needed 06/17/2017 07/16/2017 Inactive Namenda XR 28 mg capsule sprinkle,extended release RxNorm: 649634 1 Capsule(s) PO daily 05/08/2017 05/02/2018 Active Aricept 10 mg tablet RxNorm: 125963 1 Tablet(s) PO daily 201608/05/2017 Inactive hydrocodone 10 mg-acetaminophen 325 mg tablet RxNorm: 308709 1 Tablet(s) PO Q6 as needed 05/05/2017 06/03/2017 Inactive hydrocodone 10 mg-acetaminophen 325 mg tablet RxNorm: 146571 1 Tablet(s) PO Q6 as needed 04/06/2017 05/04/2017 Inactive diazepam 2 mg tablet RxNorm: 009653 1/2 - 1 Tablet(s) PO BID as needed 03/18/2017 09/20/2017 Inactive Cymbalta 30 mg capsule,delayed release RxNorm: 601531 1 Capsule(s) PO daily 03/09/2017 10/04/2017 Inactive levetiracetam 500 mg tablet RxNorm: 672158 1 Tablet(s) PO BID 03/09/2017 08/05/2017 Inactive pt to finish out supply of liquid then start on tablets Aricept 5 mg tablet RxNorm: 313299 1 Tablet(s) PO daily 201605/07/2017 Inactive pantoprazole 40 mg tablet,delayed release RxNorm: 061649 1 Tablet(s) PO daily 03/09/2017 07/06/2017 Inactive hydrocodone 10 mg-acetaminophen 325 mg tablet RxNorm: 675080 1 Tablet(s) PO Q6 as needed 12/04/2016 03/08/2017 Inactive hydrocodone 10 mg-acetaminophen 325 mg tablet RxNorm: 208327 1 Tablet(s) PO Q6 as needed 11/06/2016 12/03/2016 Inactive hydrocodone 10 mg-acetaminophen 325 mg tablet RxNorm: 492690 1 Tablet(s) PO Q6 as needed 10/08/2016 11/05/2016 Inactive Voltaren 1 % topical gel RxNorm: 320412 4 Gram(s) TOP TID as needed for pain as needed 09/25/2016 09/19/2017 Inactive hydrocodone 10 mg-acetaminophen 325 mg tablet RxNorm: 803084 1 Tablet(s) PO Q6 as needed 09/09/2016 10/07/2016 Inactive Voltaren 1 % topical gel RxNorm: 921567 1 Application TOP TID 09/08/2016 09/24/2016 Inactive Aricept 5 mg tablet RxNorm: 958801 1 Tablet(s) PO daily 201612/06/2016 Inactive Cymbalta 30 mg capsule,delayed release RxNorm: 592287 1 Capsule(s) PO daily 09/08/2016 12/06/2016 Inactive losartan 50 mg tablet RxNorm: 276779 1 Tablet(s) PO daily 201610/07/2016 Inactive clopidogrel 75 mg tablet RxNorm: 131426 75 MG PO DAILY 201609/20/2017 Inactive hydrocodone 10 mg-acetaminophen 325 mg tablet RxNorm: 667490 1 Tablet(s) PO Q6 as needed 08/15/2016 09/08/2016 Inactive hydrocodone 10 mg-acetaminophen 325 mg tablet RxNorm: 374582 1 Tablet(s) PO Q6 as needed 07/18/2016 08/14/2016 Inactive Cymbalta 30 mg capsule,delayed release RxNorm: 999077 1 Capsule(s) PO daily 07/03/2016 09/07/2016 Inactive Aricept 5 mg tablet RxNorm: 367085 1 Tablet(s) PO daily 201608/01/2016 Inactive Namenda XR 28 mg capsule sprinkle,extended release RxNorm: 250880 1 Capsule(s) PO daily 07/03/2016 05/07/2017 Inactive diazepam 5 mg tablet RxNorm: 319464 Tablet(s) PO daily as needed TAKE 1/2 TO 1 TABLET BY MOUTH DAILY NEEDED FOR ANXIETY 06/25/2016 03/06/2017 Inactive hydrocodone 10 mg-acetaminophen 325 mg tablet RxNorm: 541160 1 Tablet(s) PO Q6 as needed 06/19/2016 07/17/2016 Inactive Namenda XR 28 mg capsule sprinkle,extended release RxNorm: 890369 1 Capsule(s) PO daily 06/19/2016 07/02/2016 Inactive gabapentin 100 mg capsule RxNorm: 913054 1 Capsule(s) PO TID 03/08/2017 Inactive hydrocodone 10 mg-acetaminophen 325 mg tablet RxNorm: 708215 1 Tablet(s) PO Q6 as needed 05/27/2016 06/18/2016 Inactive diazepam 5 mg tablet RxNorm: 049803 Tablet(s) TAKE 1/2 TO 1 TABLET BY MOUTH DAILY NEEDED FOR ANXIETY 05/15/20162016 Inactive hydrocodone 10 mg-acetaminophen 325 mg tablet RxNorm: 786944 1 Tablet(s) PO Q6 as needed 04/29/2016 05/26/2016 Inactive omeprazole 40 mg capsule,delayed release RxNorm: 440033 Capsule(s) 1 CAPSULE(S) PO DAILY 04/28/2016 03/08/2017 Inactive diazepam 5 mg tablet RxNorm: 121121 Tablet(s) TAKE 1/2 TO 1 TABLET BY MOUTH DAILY NEEDED FOR ANXIETY 04/14/20162017 Inactive hydrocodone 10 mg-acetaminophen 325 mg tablet RxNorm: 448371 1 Tablet(s) PO Q6 as needed 04/01/2016 04/28/2016 Inactive Namenda XR 28 mg capsule sprinkle,extended release RxNorm: 143267 1 Capsule(s) PO daily 03/13/2016 06/18/2016 Inactive Namenda XR 28 mg capsule sprinkle,extended release RxNorm: 472929 1 Capsule(s) PO daily 03/12/2016 03/12/2016 Inactive diazepam 5 mg tablet RxNorm: 018628 Tablet(s) TAKE 1/2 TO 1 TABLET BY MOUTH DAILY NEEDED FOR ANXIETY 02/25/20162017 Inactive Namenda XR 28 mg capsule sprinkle,extended release RxNorm: 390503 1 Capsule(s) PO daily 02/04/2016 03/11/2016 Inactive hydrocodone 10 mg-acetaminophen 325 mg tablet RxNorm: 767247 1 Tablet(s) PO Q6 as needed 02/04/2016 03/04/2016 Inactive omeprazole 40 mg capsule,delayed release RxNorm: 528853 1 CAPSULE(S) PO DAILY 01/23/2016 04/27/2016 Inactive [SAVINGS FOR NON-COVERED DRUGS -- BIN:[id number], PCN: ASPROD1, Group: XXXXX, ID# XXXXXXX, Questions: . THIS IS NOT INSURANCE.] sertraline 50 mg tablet RxNorm: 777617 TAKE 1 1/2 TABLET BY MOUTH ONCE DAILY 01/10/2016 03/08/2017 Inactive hydrocodone 10 mg-acetaminophen 325 mg tablet RxNorm: 103927 1 Tablet(s) PO Q6 as needed 01/07/2016 02/03/2016 Inactive diazepam 5 mg tablet RxNorm: 886920 Tablet(s) TAKE 1/2 TO 1 TABLET BY MOUTH DAILY NEEDED FOR ANXIETY 12/17/20152017 Inactive hydrocodone 10 mg-acetaminophen 325 mg tablet RxNorm: 693879 1 Tablet(s) PO Q6 as needed 12/10/2015 01/06/2016 Inactive gabapentin 100 mg capsule RxNorm: 774505 1 Capsule(s) PO TID 03/11/2016 Inactive gabapentin 100 mg capsule RxNorm: 143926 1 Capsule(s) PO TID 11/12/2015 Inactive hydrocodone 10 mg-acetaminophen 325 mg tablet RxNorm: 322831 1 Tablet(s) PO Q6 as needed 11/12/2015 12/09/2015 Inactive hydrocodone 10 mg-acetaminophen 325 mg tablet RxNorm: 089839 1 Tablet(s) PO Q6 as needed 10/16/2015 11/11/2015 Inactive hydrocodone 10 mg-acetaminophen 325 mg tablet RxNorm: 024903 1 Tablet(s) PO Q6 as needed 09/17/2015 10/15/2015 Inactive hydrocodone 10 mg-acetaminophen 325 mg tablet RxNorm: 060984 1 Tablet(s) PO Q6 as needed 08/16/2015 09/16/2015 Inactive diazepam 5 mg tablet RxNorm: 480634 Tablet(s) TAKE 1/2 TO 1 TABLET BY MOUTH DAILY NEEDED FOR ANXIETY 07/30/20152015 Inactive diazepam 5 mg tablet RxNorm: 046073 Tablet(s) TAKE 1/2 TO 1 TABLET BY MOUTH DAILY NEEDED FOR ANXIETY 07/27/20152015 Inactive hydrocodone 10 mg-acetaminophen 325 mg tablet RxNorm: 562872 1 Tablet(s) PO Q6 as needed 07/19/2015 08/15/2015 Inactive omeprazole 40 mg capsule,delayed release RxNorm: 943086 1 CAPSULE(S) PO DAILY 07/19/2015 01/14/2016 Inactive [SAVINGS FOR NON-COVERED DRUGS -- BIN:[id number], PCN: ASPROD1, Group: XXXXX, ID# XXXXXXX, Questions: . THIS IS NOT INSURANCE.] hydrocodone 10 mg-acetaminophen 325 mg tablet RxNorm: 347980 1 Tablet(s) PO Q6 as needed 06/20/2015 07/18/2015 Inactive baclofen 10 mg tablet RxNorm: 052639 1 Tablet(s) PO TID 201506/07/2015 Inactive baclofen 10 mg tablet RxNorm: 654991 1 Tablet(s) PO TID 201507/07/2015 Inactive diazepam 5 mg tablet RxNorm: 131066 TAKE 1/2 TO 1 TABLET BY MOUTH DAILY NEEDED FOR ANXIETY 05/29/2015 04/12/2018 Inactive sertraline 50 mg tablet RxNorm: 259503 1.5 Tablet(s) PO daily 05/02/2015 10/28/2015 Inactive sertraline 50 mg tablet RxNorm: 453143 1.5 Tablet(s) PO daily 05/01/2015 05/01/2015 Inactive patient to call when needed diazepam 5 mg tablet RxNorm: 004811 1/2-1 Tablet(s) PO QDAY PRN 05/01/2015 05/29/2015 Inactive hydrocodone 10 mg-acetaminophen 325 mg tablet RxNorm: 802377 1 Tablet(s) PO Q6 as needed 04/23/2015 06/19/2015 Inactive hydrocodone 10 mg-acetaminophen 325 mg tablet RxNorm: 404302 1 Tablet(s) PO Q6 as needed 03/26/2015 04/22/2015 Inactive hydrocodone 10 mg-acetaminophen 325 mg tablet RxNorm: 381604 1 Tablet(s) PO Q6 as needed 02/26/2015 03/25/2015 Inactive Lyrica 50 mg capsule RxNorm: 136320 1 Capsule(s) PO TID 201402/03/2016 Inactive Lyrica 50 mg capsule RxNorm: 522022 1 Capsule(s) PO TID 201402/05/2015 Inactive Fish Oil [place] 3-6-9 300 mg-1,000 mg capsule,delayed release RxNorm: 1 Capsule(s) PO BID 01/30/2015 08/10/2016 Inactive diazepam 5 mg tablet RxNorm: 001732 1 Tablet(s) PO Q8 as needed 01/30/2015 04/30/2015 Inactive hydrocodone 10 mg-acetaminophen 325 mg tablet RxNorm: 230674 1 Tablet(s) PO Q6 as needed 01/19/2015 02/25/2015 Inactive sertraline 50 mg tablet RxNorm: 382514 1 Tablet(s) PO daily 04/30/2015 Inactive hydrocodone 10 mg-acetaminophen 325 mg tablet RxNorm: 579951 1 Tablet(s) PO Q6 as needed 12/12/2014 01/18/2015 Inactive hydrocodone 10 mg-acetaminophen 325 mg tablet RxNorm: 928708 1 Tablet(s) PO Q6 as needed 11/09/2014 12/11/2014 Inactive diazepam 5 mg tablet RxNorm: 072445 1 Tablet(s) PO Q8 as needed 11/01/2014 01/29/2015 Inactive omeprazole 40 mg capsule,delayed release RxNorm: 835032 1 Capsule(s) PO daily 10/02/2014 04/30/2015 Inactive [SAVINGS FOR NON-COVERED DRUGS -- BIN:047255, PCN: ASPROD1, Group: XXXXX, ID# [id number], Questions: . THIS IS NOT INSURANCE.] omeprazole 40 mg capsule,delayed release RxNorm: 695677 1 Capsule(s) PO daily 10/02/2014 10/01/2014 Inactive melatonin 3 mg tablet RxNorm: 139938 1 Tablet(s) PO QHS No Start Date Active Vitamin D3 oral RxNorm : 2418 oral No Start Date Active diclofenac sodium 75 mg tablet,delayed release RxNorm: 395633 2 Tablet(s) PO daily No Start Date 04/30/2015 Inactive diazepam 5 mg tablet RxNorm: 475994 1 Tablet(s) PO TID No Start Date 10/31/2014 Inactive Multi Vitamin oral RxNorm: oral No Start Date 03/08/2017 Inactive Flonase nasal RxNorm: 50181 nasal No Start Date 03/08/2017 Inactive gabapentin 100 mg tablet RxNorm: 787971 1 Tablet(s) PO TID No Start Date 02/06/2015 Inactive hydrocodone 10 mg-acetaminophen 325 mg tablet RxNorm: 852114 1 Tablet(s) PO QID No Start Date 11/08/2014 Inactive Zithromax Z-Myles 250 mg tablet RxNorm: 675097 1 Tablet(s) PO UD No Start Date 06/24/2017 Inactive clopidogrel 75 mg tablet RxNorm: 495673 1 Tablet(s) PO daily No Start Date 09/03/2016 Inactive atorvastatin 40 mg tablet RxNorm: 851597 1 Tablet(s) PO daily No Start Date 09/20/2017 Inactive sertraline 50 mg tablet RxNorm: 708393 1 Tablet(s) PO daily No Start Date 01/04/2015 Inactive Medication Administered No Medication Administered data Immunizations Vaccine Codes Date Status Influenza CVX: 141 02/22/2018 completed Influenza CVX: 141 03/18/2017 completed Influenza CVX: 141 06/16/2016 completed Influenza CVX: 141 03/26/2015 completed Influenza CVX: 141 02/15/2014 completed Assessments Condition Codes Effective Dates Other insomnia ICD-10: G47.09 ICD-9: 327.09 02/22/2018 Dementia in other diseases classified elsewhere without behavioral disturbance ICD-10: F02.80 ICD-9: 294.10 02/22/2018 Encounter for immunization ICD-10: Z23 ICD-9: [...] Ord21 ESR 2 mm/hr 11/04/2017 Comp Metabolic Lzy580 NA 143 mEq/L 08/28/2017 Comp Metabolic Qjl110 K 4.2 mEq/L 08/28/2017 Comp Metabolic Crq089 CL 108 mEq/L 08/28/2017 Comp Metabolic Qfq272 CO2 28.0 mEq/L 08/28/2017 Comp Metabolic Ibg384 ANION GAP 11 08/28/2017 Comp Metabolic Jrd764 GLUCOSE 89 mg/dL 08/28/2017 Comp Metabolic Kki062 Creat 0.8 mg/dL 08/28/2017 Comp Metabolic Jiy449 eGFR 78 ml/min/1.73m2 08/28/2017 Comp Metabolic Oko132 BUN 19 mg/dL 08/28/2017 Comp Metabolic Dny926 B/C Ratio 24.4 Ratio 08/28/2017 Comp Metabolic Qyv024 CALCIUM 8.4 mg/dL 08/28/2017 Comp Metabolic Huq958 ALK PHOS 52 U/L 08/28/2017 Comp Metabolic Clb971 AST(SGOT) 20 U/L 08/28/2017 Comp Metabolic Ijf382 ALT(SGPT) 14 U/L 08/28/2017 Comp Metabolic Pzp705 BILI T 0.5 mg/dL 08/28/2017 Comp Metabolic Icg601 ALBUMIN 4.0 g/dL 08/28/2017 Comp Metabolic Doa549 TPRO 5.9 g/dL 08/28/2017 Comp Metabolic Rhg509 GLOB 1.9 g/dL 08/28/2017 Comp Metabolic Pka388 A/G Ratio 2.1 Ratio 08/28/2017 Comp Metabolic Law832 Osmo 287 mOsmo 08/28/2017 Cbc With Differential [...] 30.9 pg 08/28/2017 Cbc With Differential Ord2 [place]% 5.9 % 08/28/2017 Cbc With Differential Ord2 [...] 2.28 K/ul 08/28/2017 Cbc With Differential Ord2 [place] ABS# 0.4 K/ul 08/28/2017 Cbc With Differential [...] 31.7 pg 03/09/2017 Cbc With Differential Ord2 [place]% 6.1 % 03/09/2017 Cbc With Differential Ord2 [...] 1.78 K/ul 03/09/2017 Cbc With Differential Ord2 [place] ABS# 0.4 K/ul 03/09/2017 Cbc With Differential Ord2 Eos ABS# 0.1 K/ul 03/09/2017 Cbc With Differential Ord2 Baso ABS# 0.0 K/ul 03/09/2017 Tsh Ord6 hTSH II 0.87 uIU/mL 03/09/2017 %Hba1C Bej554 % HbA1c 37987-0 4.9 % 03/09/2017 %Hba1C Roy634 Gluc Ave 94 mg/dL 03/09/2017 Comp Metabolic Zez946 NA 141 mEq/L 03/09/2017 Comp Metabolic Aia564 K 3.8 mEq/L 03/09/2017 Comp Metabolic Ytt523 CL 105 mEq/L 03/09/2017 Comp Metabolic Njb562 CO2 29.0 mEq/L 03/09/2017 Comp Metabolic Xgd934 ANION GAP 11 03/09/2017 Comp Metabolic Lap833 GLUCOSE 98 mg/dL 03/09/2017 Comp Metabolic Phu541 Creat 0.7 mg/dL 03/09/2017 Comp Metabolic Ujq868 eGFR 93 ml/min/1.73m2 03/09/2017 Comp Metabolic Vni067 BUN 11 mg/dL 03/09/2017 Comp Metabolic Sti528 B/C Ratio 16.4 Ratio 03/09/2017 Comp Metabolic Xjx679 CALCIUM 9.5 mg/dL 03/09/2017 Comp Metabolic Tmw181 ALK PHOS 90 U/L 03/09/2017 Comp Metabolic Irn519 AST(SGOT) 21 U/L 03/09/2017 Comp Metabolic Xdk683 ALT(SGPT) 15 U/L 03/09/2017 Comp Metabolic Nyr850 BILI T 0.6 mg/dL 03/09/2017 Comp Metabolic Vtu634 ALBUMIN 4.5 g/dL 03/09/2017 Comp Metabolic Buz803 TPRO 6.4 g/dL 03/09/2017 Comp Metabolic Vdu060 GLOB 1.9 g/dL 03/09/2017 Comp Metabolic Tjn387 A/G Ratio 2.3 Ratio 03/09/2017 Comp Metabolic Yiw982 Osmo 281 mOsmo 03/09/2017 Comp Metabolic Abu296 NA 142 mEq/L 09/03/2016 Comp Metabolic Lbf729 K 3.9 mEq/L 09/03/2016 Comp Metabolic Mgq763 CL 107 mEq/L 09/03/2016 Comp Metabolic Nfr088 CO2 26.0 mEq/L 09/03/2016 Comp Metabolic Flt224 ANION GAP 13 09/03/2016 Comp Metabolic Usx055 GLUCOSE 107 mg/dL 09/03/2016 Comp Metabolic Xmk485 Creat 0.7 mg/dL 09/03/2016 Comp Metabolic Pvz413 eGFR 85 ml/min/1.73m2 09/03/2016 Comp Metabolic Omi163 BUN 16 mg/dL 09/03/2016 Comp Metabolic Nla686 B/C Ratio 21.9 Ratio 09/03/2016 Comp Metabolic Bli396 CALCIUM 8.8 mg/dL 09/03/2016 Comp Metabolic Jhy338 ALK PHOS 51 U/L 09/03/2016 Comp Metabolic Vwx880 AST(SGOT) 24 U/L 09/03/2016 Comp Metabolic Tit958 ALT(SGPT) 20 U/L 09/03/2016 Comp Metabolic Fql694 BILI T 0.7 mg/dL 09/03/2016 Comp Metabolic Xyv408 ALBUMIN 4.1 g/dL 09/03/2016 Comp Metabolic Zlb860 TPRO 6.1 g/dL 09/03/2016 Comp Metabolic Uua785 GLOB 2.0 g/dL 09/03/2016 Comp Metabolic Rve183 A/G Ratio 2.1 Ratio 09/03/2016 Comp Metabolic Tcc736 Osmo 285 mOsmo 09/03/2016 Cbc With Differential [...] 30.3 pg 09/03/2016 Cbc With Differential Ord2 [place]% 6.5 % 09/03/2016 Cbc With Differential Ord2 Eos% 1.3 % 09/03/2016 Cbc With Differential Ord2 MCHC 33.8 pg 09/03/2016 Cbc With Differential Ord2 PLT 217 K/ul 09/03/2016 Cbc With Differential Ord2 Baso% 0.6 % 09/03/2016 Cbc With Differential Ord2 Neut ABS# 4.11 K/ul 09/03/2016 Cbc With Differential Ord2 RDW 15.3 % 09/03/2016 Cbc With Differential Ord2 Lymph ABS# 1.53 K/ul 09/03/2016 Cbc With Differential Ord2 [place] ABS# 0.4 K/ul 09/03/2016 Cbc With Differential [...] Ord15 CALCIUM 9.1 mg/dL 12/21/2015 Comp Metabolic Ajl166 NA 138 mEq/L 07/06/2015 Comp Metabolic Oal636 K 3.9 mEq/L 07/06/2015 Comp Metabolic Iqq506 CL 103 mEq/L 07/06/2015 Comp Metabolic Bef366 CO2 28.0 mEq/L 07/06/2015 Comp Metabolic Vyd155 ANION GAP 11 07/06/2015 Comp Metabolic Cig254 GLUCOSE 114 mg/dL 07/06/2015 Comp Metabolic Weg679 Creat 0.7 mg/dL 07/06/2015 Comp Metabolic Qhp547 eGFR 97 ml/min/1.73m2 07/06/2015 Comp Metabolic Kmo946 BUN 11 mg/dL 07/06/2015 Comp Metabolic Eua611 B/C Ratio 16.9 Ratio 07/06/2015 Comp Metabolic Isu909 CALCIUM 9.1 mg/dL 07/06/2015 Comp Metabolic Ayc648 ALK PHOS 57 U/L 07/06/2015 Comp Metabolic Ycd274 AST(SGOT) 26 U/L 07/06/2015 Comp Metabolic Efq801 ALT(SGPT) 17 U/L 07/06/2015 Comp Metabolic Kog129 BILI T 0.6 mg/dL 07/06/2015 Comp Metabolic Tbe730 ALBUMIN 4.6 g/dL 07/06/2015 Comp Metabolic Ahu152 TPRO 6.7 g/dL 07/06/2015 Comp Metabolic Swh142 GLOB 2.1 g/dL 07/06/2015 Comp Metabolic Jjd360 A/G Ratio 2.2 Ratio 07/06/2015 Comp Metabolic Qpf932 Osmo 276 mOsmo 07/06/2015 Lipid Ord30 CHOL 228 mg/dL 07/06/2015 Lipid Ord30 HDL 48.0 mg/dl 07/06/2015 Lipid Ord30 TRIG 176 mg/dL 07/06/2015 Lipid Ord30 LDL 145 mg/dL 07/06/2015 Lipid Ord30 C/HDL 4.8 Ratio 07/06/2015 Tsh Ord6 hTSH II 0.74 uIU/mL 05/01/2015 Comp Metabolic Lfc572 NA 141 mEq/L 05/01/2015 Comp Metabolic Nxu404 K 4.0 mEq/L 05/01/2015 Comp Metabolic Qhc383 CL 106 mEq/L 05/01/2015 Comp Metabolic Pls737 CO2 26.0 mEq/L 05/01/2015 Comp Metabolic Use932 ANION GAP 13 05/01/2015 Comp Metabolic Zpq682 GLUCOSE 124 mg/dL 05/01/2015 Comp Metabolic Ibv985 Creat 0.8 mg/dL 05/01/2015 Comp Metabolic Sod164 eGFR 79 ml/min/1.73m2 05/01/2015 Comp Metabolic Mdh191 BUN 13 mg/dL 05/01/2015 Comp Metabolic Wmp226 B/C Ratio 16.7 Ratio 05/01/2015 Comp Metabolic Ywj989 CALCIUM 9.3 mg/dL 05/01/2015 Comp Metabolic Fqv694 ALK PHOS 54 U/L 05/01/2015 Comp Metabolic Jka102 AST(SGOT) 21 U/L 05/01/2015 Comp Metabolic Yhq160 ALT(SGPT) 14 U/L 05/01/2015 Comp Metabolic Tyy003 BILI T 0.5 mg/dL 05/01/2015 Comp Metabolic Lyp080 ALBUMIN 4.5 g/dL 05/01/2015 Comp Metabolic Wrf462 TPRO 6.4 g/dL 05/01/2015 Comp Metabolic Zyi846 GLOB 1.9 g/dL 05/01/2015 Comp Metabolic Mzj163 A/G Ratio 2.4 Ratio 05/01/2015 Comp Metabolic Xim533 Osmo 283 mOsmo 05/01/2015 Cbc With Differential [...] Differential Ord2 RDW 16.8 % 05/01/2015 %Hba1C Sth052 % HbA1c 47646-0 5.4 % 01/29/2015 %Hba1C Xwj111 Gluc Ave 108 mg/dL 01/29/2015 Lipid Ord30 CHOL 221 mg/dL 01/26/2015 Lipid Ord30 HDL 37.0 mg/dl 01/26/2015 Lipid Ord30 TRIG 274 mg/dL 01/26/2015 Lipid Ord30 LDL 129 mg/dL 01/26/2015 Lipid Ord30 C/HDL 6.0 Ratio 01/26/2015 Tsh Ord6 hTSH II 0.85 uIU/mL 01/26/2015 Comp Metabolic Qbv374 NA 137 mEq/L 01/26/2015 Comp Metabolic Ruo050 K 4.0 mEq/L 01/26/2015 Comp Metabolic Lqa910 CL 104 mEq/L 01/26/2015 Comp Metabolic Dwx994 CO2 27.0 mEq/L 01/26/2015 Comp Metabolic Fyi994 ANION GAP 10 01/26/2015 Comp Metabolic Dkr742 GLUCOSE 131 mg/dL 01/26/2015 Comp Metabolic Mux929 Creat 0.8 mg/dL 01/26/2015 Comp Metabolic Wad165 eGFR 77 ml/min/1.73m2 01/26/2015 Comp Metabolic Hxi737 BUN 16 mg/dL 01/26/2015 Comp Metabolic Xtm855 B/C Ratio 20.0 Ratio 01/26/2015 Comp Metabolic Tch672 CALCIUM 9.1 mg/dL 01/26/2015 Comp Metabolic Qyb003 ALK PHOS 66 U/L 01/26/2015 Comp Metabolic Bcs725 AST(SGOT) 24 U/L 01/26/2015 Comp Metabolic Juh460 ALT(SGPT) 20 U/L 01/26/2015 Comp Metabolic Ebx339 BILI T 0.4 mg/dL 01/26/2015 Comp Metabolic Ejb812 ALBUMIN 4.2 g/dL 01/26/2015 Comp Metabolic Obg966 TPRO 6.4 g/dL 01/26/2015 Comp Metabolic Rkg695 GLOB 2.2 g/dL 01/26/2015 Comp Metabolic Diq274 A/G Ratio 1.9 Ratio 01/26/2015 Comp Metabolic Dfs588 Osmo 277 mOsmo 01/26/2015 Cbc With Differential [...] Differential Ord2 RDW 15.5 % 01/26/2015 B12 Ysg574 B12 669.00 pg/ml 01/26/2015 Review of Systems [...] accomodation 06/19/2016 None Full Exam - General 1995 Ears/Nose/Throat otoscopic exam Overall: external auditory canals clear 06/19/2016 None Full Exam - General 1995 Ears/Nose/Throat otoscopic exam Overall: tympanic membranes clear [...] NO PRSV 4 BLANCA 3 YRS+ CPT-4: 37950 02/22/2018 ADMIN INFLUENZA VIRUS VAC CPT-4: G0008 03/18/2017 FLU VACC PRSV FREE INC ANTIG CPT-4: 17154 03/18/2017 INITIAL PREVENTIVE EXAM CPT-4: G0402 07/06/2015 IIV4 FLU VACC NO PRESERV ID Formatting Model/CDA Sections, Assigned to SNOMED CT: [id number] CPT-4: 59000Mrmxsae 03/26/2015 IMMUNIZATION ADMIN CPT -4: 54919 03/26/2015 Vital Signs Date Vital 02/22/2018 Blood Pressure 1: 140/70 Code : 8480-6 BMI: 26.3 Code : 20062-2 Heart Rate 1 : 60 bpm Height: 5'1" SpO2: 97% Weight: 139 lbs 12/29/2017 Blood Pressure 1: 110/58 Code : 8480-6 BMI: 23.8 Code : 61190-7 Heart Rate 1 : 56 bpm Height: 5'1" SpO2: 98% Weight: 126 lbs 10/28/2017 Blood Pressure 1: 96/68 Code : 8480-6 BMI: 21.7 Code : 86338-9 Heart Rate 1 : 68 bpm Height: 5'1" SpO2: 98% Weight: 115 lbs 09/23/2017 Blood Pressure 1: 134/72 Code : 8480-6 BMI: 22.5 Code : 26895-3 Heart Rate 1 : 72 bpm Height: 5'1" SpO2: 97% Weight: 119 lbs 03/18/2017 Blood Pressure 1: 140/72 Code : 8480-6 BMI: 21.5 Code : 04931-6 Heart Rate 1 : 64 bpm Height: 5'1" SpO2: 96% Weight: 114 lbs 03/09/2017 Blood Pressure 1: 120/72 Code : 8480-6 BMI: 21.5 Code : 14525-2 Heart Rate 1 : 75 bpm Height: 5'1" SpO2: 97% Weight: 114 lbs 12/09/2016 Blood Pressure 1: 130/76 Code : 8480-6 BMI: 23.8 Code : 07989-8 Heart Rate 1 : 68 bpm Height: 5'1" SpO2: 98% Weight: 126 lbs 09/08/2016 Blood Pressure 1: 162/80 Code : 8480-6 Blood Pressure 2: 145/90 Code: 8480-6 BMI: 24.7 Code: 02609-9 Heart Rate 1: 77 bpm Height: 5'1" SpO2: 97% Weight: 130 lbs 8 oz 08/11/2016 Blood Pressure 1: 130/80 Code : 8480-6 BMI: 25.9 Code : 80794-3 Heart Rate 1 : 62 bpm Height: 5'1" SpO2: 97% Weight: 137 lbs 07/03/2016 Blood Pressure 1: 134/74 Code : 8480-6 BMI: 26.8 Code : 80583-3 Heart Rate 1 : 74 bpm Height: 5'1" SpO2: 97% Weight: 142 lbs 06/19/2016 Blood Pressure 1: 118/66 Code : 8480-6 Heart Rate 1: 72 bpm SpO2: 96% Weight: 142 lbs 02/04/2016 Blood Pressure 1: 130/80 Code : 8480-6 BMI: 27.2 Code : 05953-3 Heart Rate 1 : 76 bpm Height: 5'1" SpO2: 96% Weight: 144 lbs 01/07/2016 Blood Pressure 1: 136/64 Code : 8480-6 BMI: 27.6 Code : 62111-0 Heart Rate 1 : 73 bpm Height: 5'1" SpO2: 987% Weight: 146 lbs 12/17/2015 Blood Pressure 1: 128/86 Code : 8480-6 BMI: 27.0 Code : 99021-5 Heart Rate 1 : 59 bpm Height: 5'1" SpO2: 96% Weight: 143 lbs 10/16/2015 Blood Pressure 1: 122/78 Code : 8480-6 BMI: 25.7 Code : 31338-0 Heart Rate 1 : 71 bpm Height: 5'1" SpO2: 96% Weight: 136 lbs 08/16/2015 Blood Pressure 1: 138/88 Code : 8480-6 BMI: 27.0 Code : 23436-2 Heart Rate 1 : 75 bpm Height: 5'1" SpO2: 98% Weight: 143 lbs 07/06/2015 Blood Pressure 1: 120/72 Code : 8480-6 BMI: 26.5 Code : 62704-0 Heart Rate 1 : 72 bpm Height: 5'1" SpO2: 96% Weight: 140 lbs 06/07/2015 Blood Pressure 1: 152/86 Code : 8480-6 BMI: 26.1 Code : 81695-7 Heart Rate 1 : 88 bpm Height: 5'1" SpO2: 97% Weight: 138 lbs 05/01/2015 Blood Pressure 1: 120/80 Code : 8480-6 BMI: 27.0 Code : 40662-5 Heart Rate 1 : 82 bpm Height: 5'1" SpO2: 98% Temperature: 36.7 (C) / 98.0 (F) Weight: 143 lbs 03/26/2015 Blood Pressure 1: 140/80 Code : 8480-6 BMI: 28.0 Code : 52175-1 Heart Rate 1 : 69 bpm Height: 5'1" SpO2: 96% Weight: 148 lbs 03/13/2015 Blood Pressure 1: 128/70 Code : 8480-6 BMI: 28.2 Code : 88820-6 Heart Rate 1 : 76 bpm Height: 5'1" Weight: 149 lbs 01/30/2015 Blood Pressure 1: 142/68 Code : 8480-6 BMI: 28.7 Code : 75758-5 Heart Rate 1 : 86 bpm Height: 5'1" SpO2: 96% Weight: 152 lbs 10/16/2014 Blood Pressure 1: 160/88 Code : 8480-6 BMI: 28.2 Code : 37486-0 Heart Rate 1 : 66 bpm Height: [...] data Encounters Encounter Performer Location Codes Date 50753 EST. PATIENT, LEVEL III Diagnosis: Other insomnia[ICD10: G47.09] Diagnosis: Dementia in other diseases classified elsewhere without behavioral disturbance[ICD10: F02.80] Diagnosis: Encounter for immunization[ICD10: Z23] [facility] CPT-4: 55931 02/22/2018 84501 EST. PATIENT, LEVEL IV Diagnosis: Dementia in other diseases classified elsewhere without behavioral disturbance[ICD10: F02.80] Diagnosis: Major depressive disorder, recurrent, mild[ICD10: F33.0] Diagnosis: Other allergic rhinitis[ICD10: J30.89] Angelica Ochoa MD, [facility] CPT-4: 09451 12/29/2017 ([id number]) 77743 EST. PATIENT, LEVEL IV Diagnosis: Dementia in other diseases classified elsewhere without behavioral disturbance[ICD10: F02.80] Diagnosis: Major depressive disorder, recurrent, mild[ICD10: F33.0] Diagnosis: Allergy to other foods[ICD10: Z91.018] Marylu Ochoa MD, [facility] CPT-4: 24366 10/28/2017 72866 EST. 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 PATIENT, LEVEL IV Diagnosis: Essential (primary) hypertension[ICD10: I10] Diagnosis: Major depressive disorder, recurrent, moderate[ICD10: F33.1] Diagnosis: Underweight[ICD10: R63.6] Diagnosis: Localization-related (focal) (partial) symptomatic epilepsy and epileptic syndromes with simple partial seizures, not intractable, without status epilepticus[ICD10: G40.109] Marylu Ochoa MD, [facility] CPT-4: 67231 03/09/2017 ([id number]) 03480 EST. PATIENT, LEVEL IV Diagnosis: Mixed hyperlipidemia[ICD10: E78.2] Diagnosis: Chronic pain syndrome[ICD10: G89.4] Diagnosis: Major depressive disorder, recurrent, mild[ICD10: F33.0] Marylu Ochoa MD, [facility] CPT-4: 97969 12/09/2016 ([id number]) 66058 EST. PATIENT, LEVEL IV Diagnosis: Essential (primary) hypertension[ICD10: I10] Diagnosis: Low back pain[ICD10: M54.5] Diagnosis: Personal history of transient ischemic attack (TIA), and cerebral infarction without residual deficits[ICD10: Z86.73] Diagnosis: Major depressive disorder, recurrent, moderate[ICD10: F33.1] Diagnosis: Other sleep apnea[ICD10: G47.39] Marylu Ochoa MD, [facility] CPT-4: 58147 09/08/2016 ([id number]) 25970 EST. 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 PATIENT, LEVEL III Diagnosis: Chronic pain syndrome[ICD10: G89.4] Diagnosis: Low back pain[ICD10: M54.5] Diagnosis: Major depressive disorder, recurrent, mild[ICD10: F33.0] Diagnosis: Mild cognitive impairment, so stated[ICD10: G31.84] Angelica Ochoa MD, [facility] CPT-4: 12982 07/03/2016 ([id number]) 89734 EST. PATIENT, LEVEL III Diagnosis: Chronic pain syndrome[ICD10: G89.4] Donna Ochoa MD, [facility] CPT-4: 99513 06/19/2016 ([id number]) 41603 EST. PATIENT, LEVEL IV Diagnosis: Chronic pain syndrome[ICD10: G89.4] Diagnosis: Mild cognitive impairment, so stated[ICD10: G31.84] Donna Ochoa MD, [facility] CPT-4: 52625 02/04/2016 ([id number]) 93228 EST. PATIENT, LEVEL IV Diagnosis: Chronic pain syndrome[ICD10: G89.4] Diagnosis: Mild cognitive impairment, so stated[ICD10: G31.84] Diagnosis: Major depressive disorder, recurrent, mild[ICD10: F33.0] Donna Ochoa MD , [facility] CPT-4: 89607 01/07/2016 ([id number]) 68555 EST. PATIENT, LEVEL IV Diagnosis: Chronic pain syndrome[ICD10: G89.4] Diagnosis: Headache[ICD10: R51] Diagnosis: Major depressive disorder, recurrent, mild[ICD10: F33.0] Diagnosis: Mixed hyperlipidemia[ICD10: E78.2] Donna Ochoa MD, [facility] CPT-4: 42294 12/17/2015 ([id number]) 51285 EST. PATIENT, LEVEL III Diagnosis: Chronic pain syndrome[ICD10: G89.4] Diagnosis: Major depressive disorder, recurrent, mild[ICD10: F33.0] Donna Ochoa MD , [facility] CPT-4: 47871 10/16/2015 ([id number]) 49039 EST. PATIENT, LEVEL III Diagnosis: Low back pain[ICD10: M54.5] Donna Ochoa MD, [facility] CPT-4: 57963 08/16/2015 ([id number]) 39947 EST. 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 PATIENT, LEVEL IV Diagnosis: Major depressive disorder, recurrent, mild[ICD10: F33.0] Diagnosis: Chronic pain syndrome[ICD10: G89.4] Diagnosis: Other fatigue[ICD10: R53.83] Donna Ochoa MD, [facility] CPT-4: 93632 05/01/2015 ([id number]) 06190 EST. PATIENT, LEVEL II Diagnosis: Plantar fascial fibromatosis[ICD10: M72.2] Donna Ochoa MD, [facility] CPT-4: 44475 03/26/2015 ([id number]) 80390 EST. PATIENT, LEVEL III Diagnosis: Plantar fascial fibromatosis[ICD10: M72.2] [facility] CPT-4: 50249 03/13/2015 ([id number]) 39806 EST. PATIENT, LEVEL III Diagnosis: Hyperlipidemia[ICD9: 272.4] Diagnosis: ALLERGIC RHINITIS[ICD9: 477.9] Diagnosis: Chronic pain syndrome[ICD9: 338.4] Donna Ochoa MD, [facility] CPT-4: 91500 01/30/2015 ([id number]) OFFICE VISIT, NEW - LEVEL 4 Diagnosis: ESOPHAGEAL REFLUX[ICD9: 530.81] Diagnosis: Peripheral neuropathy[ICD9: 356.9] Diagnosis: Chronic pain syndrome[ICD9: 338.4] Diagnosis: OSTEOARTH NOS-UNSPEC[ICD9: 715.90] Diagnosis: DEPRESSIVE DISORDER NEC[ICD9: 311] [facility] CPT-4: 62859 10/16/2014 Plan of Care Planned Activity Notes Codes Status Date Appointment: Angelica Cuba WPtel: [address] [place], [place] [id number] (15 min) Moderate 03/24/2018 Visit Plan: Insomnia [...] of treatment. 02/22/2018 Appointment: Angelica Cuba WPtel: [address] [place], [place] [address] (15 min) Moderate 02/22/2018 Appointment: Angelica Cuba WPtel: [address] [place], [place] [phone] (15 min) Moderate 02/22/2018 Patient Education: Patient Medication Summary Completed 02/22/2018 Appointment: Angelica Cuba WPtel: [address] [place] [address] (15 min) Moderate 02/18/2018 Visit Plan: Dementia [...] Summary Completed 12/29/2017 Appointment: Angelica Cuba WPtel: [facility] (15 min) Moderate 12/23/2017 Patient Education: Patient [...] 10/28/2017 Appointment: Marylu Ochoa WPtel: [facility] [address] (15 min) Moderate 10/28/2017 Patient Education: Patient [...] 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 03/09/2017 Appointment: [facility] [place] (30 min) Complex 03/09/2017 Patient Education: Patient Medication Summary Completed 03/09/2017 Appointment: Donna Walden WPtel: [address] [phone] [place] (30 min) Complex 03/06/2017 Appointment: Marylu Ochoa WPtel: [address] [facility] [address] (15 min) Moderate 01/08/2017 Visit Plan: Hyperlipidemia [...] Completed 12/09/2016 Appointment: [facility] (15 min) Moderate 11/11/2016 App[facility]ment: [phone] ([facility] min) Complex 10/09/2016 Visit Plan: Hypertension [...] - 90 day supply of Aricept through [facility], refill namenda Suspected sleep disordered breathing with [...] - 90 day supply of Aricept through [facility], refill namenda 09/08/2016 Appointment: Marylu Ochoa WPtel: [facility] [address] (15 min) Moderate 09/08/2016 Patient Education: Patient Medication Summary Completed 09/08/2016 Appointment: Angelica Cuba WPtel: [facility] (30 min) Complex 08/19/2016 Visit Plan: [...] plavix 08/11/2016 Appointment: Marylu Ochoa WPtel: [phone] [facility] [address] (15 min) Moderate 08/11/2016 Patient Education: Patient [...] 07/03/2016 Appointment: [facility] [place] [facility]Ptel[facility] ([facility] min) Complex 07/03/2016 Patient Education: Patient Medication Summary Completed 07/03/2016 Care Plan: Referral Order SNOMED-CT : [id number] Pending 07/03/2016 Visit Plan: Chronic Pain Syndrome - pt has chronic pain - has been maintained on current medications, has not sought out other medications , only uses PRN pain medications as directed, and understands the consequences of over-medication. 06/19/2016 Appointment: Donna Walden WPtel: [phone] [place] (30 min) Complex 06/19/2016 Patient Education: Patient Medication Summary Completed 06/19/2016 Appointment: Donna Walden WPtel: [address] [place], [place] [phone] [place] (30 min) Complex 06/05/2016 Visit Plan: Chronic Pain Syndrome - pt has chronic pain - has been maintained on current medications, has not sought out other medications , only uses PRN pain medications as directed, and understands the consequences of over-medication. Mild cognitive impairment-discussed with Dr Ochoa- Judson alvarado pack 02/04/2016 Appointment: Donna Walden WPtel: [phone] [place] (30 min) Complex 02/04/2016 Patient Education: Patient Medication Summary Completed 02/04/2016 Appointment: Donna Walden WPtel: [facility] [place] [address] (30 min) Complex 01/14/2016 Visit Plan: Chronic [...] of testing. 01/07/2016 Appointment: Donna Walden WPtel: [facility] [address] (15 min) Moderate 01/07/2016 Patient Education: Patient Medication Summary Completed 01/07/2016 Visit Plan: Chronic Pain Syndrome - pt has chronic pain - has been maintained on current medications, has not sought out other medications , only uses PRN pain medications as directed, and understands the consequences of over-medication. Headaches-memory loss-schedule MRI brain Hyperlipidemia- check fasting labs [id number]-[id number]-ob change in medications at this time 12/17/2015 Patient Education: Patient Medication Summary Completed 12/17/2015 Appointment: Donna Walden WPtel: [phone] (30 min) Complex 12/13/2015 Visit Plan: [...] medications. 10/16/2015 Appointment: [phone] (30 min) Complex 10/16/2015 Patient Education: Patient [...] symptoms. 06/07/2015 Appointment: [phone] (15 min) Moderate 06/07/2015 Patient Education: [...] shoes - discussed inserts and referral to tip tester-patient wants to wait but will let us [...] pain symptoms. 10/16/2014 Appointment: Marylu [facility]choa [facility]Ptel[facility] [place] ([place] New Patient 10/16/2014 Patient [...] make a follow up appointment with her bank vault clerk - The patient has been counseled to [...] pt is to call for acute concerns. ALEVE 2 TABS TWICE DAILY WITH FOOD [...] changes. Continue with current plan of treatment. i want to have Roxy start on [...] notify clinic with any questions or concerns. INCREASE SERTRALINE TO 1.5 TABLETS DAILY . [...] supportive shoes -discussed inserts and referral to tip tester-patient wants to wait but will let us know if she wants to see Dr Roger. . Plantar fasciitis- pt was educated that this is an inflammatory process, need to stretch the foot and reduce inflammation by using a frozen bottle of water or a tennis ball on the bottom of the foot at least three times a day until the pain is improved. Judson starter pack . Chronic Pain Syndrome [...] and understands the consequences of over- medication. Diazepam 2mg 1/2 to 1 tab twice a day as needed for agitation flu shot today will check b12 level and do b12 shot with next appointment if needed. Will make her a follow up appointment with Dr. Vo Will see about referring her to Dr. Dexter grullon [place] (neurologist) . Anxiety - the patient has [...] make a follow up appointment with her bank vault clerk - The patient has been counseled to [...] pt is to call for acute concerns. FISH OIL 1000MG TWICE DAILY . [...] pain 90 day supply of Aricept through [facility] [place] Add 50 mg Losartan daily for hypertension [...] - 90 day supply of Aricept through [facility], refill namenda Suspected sleep disordered breathing with episodes of nocturnal fits of not breathing correctly - pt advised of need for an overnight oxygen study to be done to see if there is nocturnal hypoxemia contributing to her memory loss, htn. Refill Cymbalta Voltaren gel for low back pain 90 day supply of Aricept through [facility] Add 50 mg Losartan daily for hypertension [...] - 90 day supply of Aricept through [facility], refill namenda mammogram order - given to patient - she is to schedule in [place] . Chronic Pain Syndrome - pt has [...] Headaches-memory loss-schedule MRI brain Hyperlipidemia-check fasting labs [id number] change in medications at this time . [...]
[2018-09-20 05:52] LABS: ALANINE AMINOTRANSFERASE 26 U/L (0-55); ALBUMIN 4.1 GM/DL (3.2-4.5); ALKALINE PHOSPHATASE 78 U/L (40-136); BILIRUBIN,TOTAL 0.4 MG/DL (0.1-1.0); BUN/CREATININE RATIO 13; CALCIUM 9.4 MG/DL (8.5-10.1); CARBON DIOXIDE 15 MMOL/L (21-32); CHLORIDE 110 MMOL/L (98-107); CREATININE SERUM 0.99 MG/DL (0.60-1.30); GFR ESTIMATED 56; GLUCOSE 157 MG/DL (70-105); SODIUM 143 MMOL/L (135-145); TOTAL PROTEIN 6.6 GM/DL (6.4-8.2)
--- OUTSIDE RECORDS SUMMARY | 2018-09-20 05:54 | XMS REPORT | CCD ---
Author Author Marylu Ochoa Organization Marylu Ochoa MD, [facility] Address [address] [place] [address] Phone Care Team Providers Care University Administrator Name Role Phone PP Unavailable CCM Unavailable Summary Purpose Interface Exchange Insurance Providers Payer name Policy type / Coverage type Covered libertarian ID Effective Begin Date Effective End Date WPS Medicare Part B Medicare Part B [id number] 2015 Unknown [facility] Medicare Part B [id number] 2015 Unknown Family history Mother Diagnosis Age [...] Unknown Retired 10/16/[address]: 757786697 Never smoker 10/16/[address]: 664718816 Never drinks alcohol 10/16/2014 Allergies, Adverse Reactions, [...] Start Date Stop Date Status Fill Instructions diazepam 5 mg tablet RxNorm: 020332 1/2 Tablet(s) PO QHS as needed 04/13/2018 06/11/2018 Active hydrocodone 10 mg-acetaminophen 325 mg tablet RxNorm: 094520 1 Tablet(s) PO Q6 as needed may fill on 03-27-18 03/22/201808/2017 Active Aricept 10 mg tablet RxNorm: 264462 1 TABLET(S) PO DAILY 201707/12/2018 Active hydrocodone 10 mg-acetaminophen 325 mg tablet RxNorm: 325394 1 Tablet(s) PO Q6 as needed 02/26/2018 03/21/2018 Inactive diazepam 5 mg tablet RxNorm: 734064 1/2 Tablet(s) PO QHS as needed 02/22/2018 03/23/2018 Inactive hydrocodone 10 mg-acetaminophen 325 mg tablet RxNorm: 991494 1 Tablet(s) PO Q6 as needed 02/05/2018 02/25/2018 Inactive levetiracetam 500 mg tablet RxNorm: 485324 1 TABLET(S) PO BID 01/07/2018 04/06/2018 Inactive pt to finish out supply of liquid then start on tablets hydrocodone 10 mg-acetaminophen 325 mg tablet RxNorm: 603504 1 Tablet(s) PO Q6 as needed 12/29/2017 01/27/2018 Inactive hydrocodone 10 mg-acetaminophen 325 mg tablet RxNorm: 083455 1 Tablet(s) PO Q6 as needed 12/10/2017 12/28/2017 Inactive Zyrtec 10 mg tablet RxNorm: 1472170 1 Tablet(s) PO QAM for allergies 10/28/2017 05/25/2018 Active Zantac 75 mg tablet RxNorm: 575708 1 Tablet(s) PO BID 201702/24/2018 Inactive Aricept 10 mg tablet RxNorm: 760556 1 TABLET(S) PO DAILY 201702/23/2018 Inactive Cymbalta 30 mg capsule,delayed release RxNorm: 076783 1 Capsule(s) PO daily 10/22/2017 05/19/2018 Active hydrocodone 10 mg-acetaminophen 325 mg tablet RxNorm: 329316 1 Tablet(s) PO Q6 as needed 10/20/2017 11/18/2017 Inactive Voltaren 1 % topical gel RxNorm: 200456 4 Gram(s) TOP TID as needed for pain as needed 09/23/2017 09/17/2018 Active levetiracetam 500 mg tablet RxNorm: 944530 1 TABLET(S) PO BID 09/21/2017 10/20/2017 Inactive pt to finish out supply of liquid then start on tablets hydrocodone 10 mg-acetaminophen 325 mg tablet RxNorm: 791587 1 Tablet(s) PO Q6 as needed 08/27/2017 09/25/2017 Inactive Aricept 10 mg tablet RxNorm: 436641 1 Tablet(s) PO daily 201709/16/2017 Inactive Aricept 10 mg tablet RxNorm: 612230 1 Tablet(s) PO daily 201708/17/2017 Inactive hydrocodone 10 mg-acetaminophen 325 mg tablet RxNorm: 835875 1 Tablet(s) PO Q6 as needed 07/28/2017 08/26/2017 Inactive Zithromax Z-Myles 250 mg tablet RxNorm: 346799 1 Tablet(s) PO UD 06/25/2017 09/20/2017 Inactive hydrocodone 10 mg-acetaminophen 325 mg tablet RxNorm: 231124 1 Tablet(s) PO Q6 as needed 06/17/2017 07/16/2017 Inactive Namenda XR 28 mg capsule sprinkle,extended release RxNorm: 822239 1 Capsule(s) PO daily 05/08/2017 05/02/2018 Active Aricept 10 mg tablet RxNorm: 464587 1 Tablet(s) PO daily 201608/05/2017 Inactive hydrocodone 10 mg-acetaminophen 325 mg tablet RxNorm: 446927 1 Tablet(s) PO Q6 as needed 05/05/2017 06/03/2017 Inactive hydrocodone 10 mg-acetaminophen 325 mg tablet RxNorm: 866259 1 Tablet(s) PO Q6 as needed 04/06/2017 05/04/2017 Inactive diazepam 2 mg tablet RxNorm: 807488 1/2 - 1 Tablet(s) PO BID as needed 03/18/2017 09/20/2017 Inactive Cymbalta 30 mg capsule,delayed release RxNorm: 398748 1 Capsule(s) PO daily 03/09/2017 10/04/2017 Inactive levetiracetam 500 mg tablet RxNorm: 370760 1 Tablet(s) PO BID 03/09/2017 08/05/2017 Inactive pt to finish out supply of liquid then start on tablets Aricept 5 mg tablet RxNorm: 440441 1 Tablet(s) PO daily 201605/07/2017 Inactive pantoprazole 40 mg tablet,delayed release RxNorm: 745232 1 Tablet(s) PO daily 03/09/2017 07/06/2017 Inactive hydrocodone 10 mg-acetaminophen 325 mg tablet RxNorm: 909383 1 Tablet(s) PO Q6 as needed 12/04/2016 03/08/2017 Inactive hydrocodone 10 mg-acetaminophen 325 mg tablet RxNorm: 574341 1 Tablet(s) PO Q6 as needed 11/06/2016 12/03/2016 Inactive hydrocodone 10 mg-acetaminophen 325 mg tablet RxNorm: 637286 1 Tablet(s) PO Q6 as needed 10/08/2016 11/05/2016 Inactive Voltaren 1 % topical gel RxNorm: 143386 4 Gram(s) TOP TID as needed for pain as needed 09/25/2016 09/19/2017 Inactive hydrocodone 10 mg-acetaminophen 325 mg tablet RxNorm: 319920 1 Tablet(s) PO Q6 as needed 09/09/2016 10/07/2016 Inactive Voltaren 1 % topical gel RxNorm: 938655 1 Application TOP TID 09/08/2016 09/24/2016 Inactive Aricept 5 mg tablet RxNorm: 534602 1 Tablet(s) PO daily 201612/06/2016 Inactive Cymbalta 30 mg capsule,delayed release RxNorm: 160441 1 Capsule(s) PO daily 09/08/2016 12/06/2016 Inactive losartan 50 mg tablet RxNorm: 314501 1 Tablet(s) PO daily 201610/07/2016 Inactive clopidogrel 75 mg tablet RxNorm: 984307 75 MG PO DAILY 201609/20/2017 Inactive hydrocodone 10 mg-acetaminophen 325 mg tablet RxNorm: 782597 1 Tablet(s) PO Q6 as needed 08/15/2016 09/08/2016 Inactive hydrocodone 10 mg-acetaminophen 325 mg tablet RxNorm: 509878 1 Tablet(s) PO Q6 as needed 07/18/2016 08/14/2016 Inactive Cymbalta 30 mg capsule,delayed release RxNorm: 740268 1 Capsule(s) PO daily 07/03/2016 09/07/2016 Inactive Aricept 5 mg tablet RxNorm: 089539 1 Tablet(s) PO daily 201608/01/2016 Inactive Namenda XR 28 mg capsule sprinkle,extended release RxNorm: 494222 1 Capsule(s) PO daily 07/03/2016 05/07/2017 Inactive diazepam 5 mg tablet RxNorm: 847498 Tablet(s) PO daily as needed TAKE 1/2 TO 1 TABLET BY MOUTH DAILY NEEDED FOR ANXIETY 06/25/2016 03/06/2017 Inactive hydrocodone 10 mg-acetaminophen 325 mg tablet RxNorm: 965401 1 Tablet(s) PO Q6 as needed 06/19/2016 07/17/2016 Inactive Namenda XR 28 mg capsule sprinkle,extended release RxNorm: 749055 1 Capsule(s) PO daily 06/19/2016 07/02/2016 Inactive gabapentin 100 mg capsule RxNorm: 150245 1 Capsule(s) PO TID 03/08/2017 Inactive hydrocodone 10 mg-acetaminophen 325 mg tablet RxNorm: 982385 1 Tablet(s) PO Q6 as needed 05/27/2016 06/18/2016 Inactive diazepam 5 mg tablet RxNorm: 605045 Tablet(s) TAKE 1/2 TO 1 TABLET BY MOUTH DAILY NEEDED FOR ANXIETY 05/15/20162016 Inactive hydrocodone 10 mg-acetaminophen 325 mg tablet RxNorm: 875723 1 Tablet(s) PO Q6 as needed 04/29/2016 05/26/2016 Inactive omeprazole 40 mg capsule,delayed release RxNorm: 942667 Capsule(s) 1 CAPSULE(S) PO DAILY 04/28/2016 03/08/2017 Inactive diazepam 5 mg tablet RxNorm: 534970 Tablet(s) TAKE 1/2 TO 1 TABLET BY MOUTH DAILY NEEDED FOR ANXIETY 04/14/20162017 Inactive hydrocodone 10 mg-acetaminophen 325 mg tablet RxNorm: 247051 1 Tablet(s) PO Q6 as needed 04/01/2016 04/28/2016 Inactive Namenda XR 28 mg capsule sprinkle,extended release RxNorm: 300499 1 Capsule(s) PO daily 03/13/2016 06/18/2016 Inactive Namenda XR 28 mg capsule sprinkle,extended release RxNorm: 632891 1 Capsule(s) PO daily 03/12/2016 03/12/2016 Inactive diazepam 5 mg tablet RxNorm: 385292 Tablet(s) TAKE 1/2 TO 1 TABLET BY MOUTH DAILY NEEDED FOR ANXIETY 02/25/20162017 Inactive Namenda XR 28 mg capsule sprinkle,extended release RxNorm: 366838 1 Capsule(s) PO daily 02/04/2016 03/11/2016 Inactive hydrocodone 10 mg-acetaminophen 325 mg tablet RxNorm: 351050 1 Tablet(s) PO Q6 as needed 02/04/2016 03/04/2016 Inactive omeprazole 40 mg capsule,delayed release RxNorm: 465891 1 CAPSULE(S) PO DAILY 01/23/2016 04/27/2016 Inactive [SAVINGS FOR NON-COVERED DRUGS -- BIN:[id number], PCN: [id number], Group: XXXXX, ID# XXXXXXX, Questions: . THIS IS NOT INSURANCE.] sertraline 50 mg tablet RxNorm: 691993 TAKE 1 1/2 TABLET BY MOUTH ONCE DAILY 01/10/2016 03/08/2017 Inactive hydrocodone 10 mg-acetaminophen 325 mg tablet RxNorm: 978147 1 Tablet(s) PO Q6 as needed 01/07/2016 02/03/2016 Inactive diazepam 5 mg tablet RxNorm: 159661 Tablet(s) TAKE 1/2 TO 1 TABLET BY MOUTH DAILY NEEDED FOR ANXIETY 12/17/20152017 Inactive hydrocodone 10 mg-acetaminophen 325 mg tablet RxNorm: 511392 1 Tablet(s) PO Q6 as needed 12/10/2015 01/06/2016 Inactive gabapentin 100 mg capsule RxNorm: 550661 1 Capsule(s) PO TID 03/11/2016 Inactive gabapentin 100 mg capsule RxNorm: 085737 1 Capsule(s) PO TID 11/12/2015 Inactive hydrocodone 10 mg-acetaminophen 325 mg tablet RxNorm: 884578 1 Tablet(s) PO Q6 as needed 11/12/2015 12/09/2015 Inactive hydrocodone 10 mg-acetaminophen 325 mg tablet RxNorm: 079158 1 Tablet(s) PO Q6 as needed 10/16/2015 11/11/2015 Inactive hydrocodone 10 mg-acetaminophen 325 mg tablet RxNorm: 728267 1 Tablet(s) PO Q6 as needed 09/17/2015 10/15/2015 Inactive hydrocodone 10 mg-acetaminophen 325 mg tablet RxNorm: 271434 1 Tablet(s) PO Q6 as needed 08/16/2015 09/16/2015 Inactive diazepam 5 mg tablet RxNorm: 181289 Tablet(s) TAKE 1/2 TO 1 TABLET BY MOUTH DAILY NEEDED FOR ANXIETY 07/30/20152015 Inactive diazepam 5 mg tablet RxNorm: 319960 Tablet(s) TAKE 1/2 TO 1 TABLET BY MOUTH DAILY NEEDED FOR ANXIETY 07/27/20152015 Inactive hydrocodone 10 mg-acetaminophen 325 mg tablet RxNorm: 646146 1 Tablet(s) PO Q6 as needed 07/19/2015 08/15/2015 Inactive omeprazole 40 mg capsule,delayed release RxNorm: 458038 1 CAPSULE(S) PO DAILY 07/19/2015 01/14/2016 Inactive [SAVINGS FOR NON-COVERED DRUGS -- BIN:[id number], PCN: ASPROD1, Group: XXXXX, ID# [id number], Questions: . THIS IS NOT INSURANCE.] hydrocodone 10 mg-acetaminophen 325 mg tablet RxNorm: 983992 1 Tablet(s) PO Q6 as needed 06/20/2015 07/18/2015 Inactive baclofen 10 mg tablet RxNorm: 506127 1 Tablet(s) PO TID 201506/07/2015 Inactive baclofen 10 mg tablet RxNorm: 587458 1 Tablet(s) PO TID 201507/07/2015 Inactive diazepam 5 mg tablet RxNorm: 013891 TAKE 1/2 TO 1 TABLET BY MOUTH DAILY NEEDED FOR ANXIETY 05/29/2015 04/12/2018 Inactive sertraline 50 mg tablet RxNorm: 911516 1.5 Tablet(s) PO daily 05/02/2015 10/28/2015 Inactive sertraline 50 mg tablet RxNorm: 139285 1.5 Tablet(s) PO daily 05/01/2015 05/01/2015 Inactive patient to call when needed diazepam 5 mg tablet RxNorm: 148165 1/2-1 Tablet(s) PO QDAY PRN 05/01/2015 05/29/2015 Inactive hydrocodone 10 mg-acetaminophen 325 mg tablet RxNorm: 148746 1 Tablet(s) PO Q6 as needed 04/23/2015 06/19/2015 Inactive hydrocodone 10 mg-acetaminophen 325 mg tablet RxNorm: 699656 1 Tablet(s) PO Q6 as needed 03/26/2015 04/22/2015 Inactive hydrocodone 10 mg-acetaminophen 325 mg tablet RxNorm: 192229 1 Tablet(s) PO Q6 as needed 02/26/2015 03/25/2015 Inactive Lyrica 50 mg capsule RxNorm: 421238 1 Capsule(s) PO TID 201402/03/2016 Inactive Lyrica 50 mg capsule RxNorm: 500566 1 Capsule(s) PO TID 201402/05/2015 Inactive Fish Oil [place] 3-6-9 300 mg-1,000 mg capsule,delayed release RxNorm: 1 Capsule(s) PO BID 01/30/2015 08/10/2016 Inactive diazepam 5 mg tablet RxNorm: 339027 1 Tablet(s) PO Q8 as needed 01/30/2015 04/30/2015 Inactive hydrocodone 10 mg-acetaminophen 325 mg tablet RxNorm: 710871 1 Tablet(s) PO Q6 as needed 01/19/2015 02/25/2015 Inactive sertraline 50 mg tablet RxNorm: 118013 1 Tablet(s) PO daily 04/30/2015 Inactive hydrocodone 10 mg-acetaminophen 325 mg tablet RxNorm: 356468 1 Tablet(s) PO Q6 as needed 12/12/2014 01/18/2015 Inactive hydrocodone 10 mg-acetaminophen 325 mg tablet RxNorm: 949479 1 Tablet(s) PO Q6 as needed 11/09/2014 12/11/2014 Inactive diazepam 5 mg tablet RxNorm: 463173 1 Tablet(s) PO Q8 as needed 11/01/2014 01/29/2015 Inactive omeprazole 40 mg capsule,delayed release RxNorm: 465340 1 Capsule(s) PO daily 10/02/2014 04/30/2015 Inactive [SAVINGS FOR NON-COVERED DRUGS -- BIN:034247, PCN: ASPROD1, Group: XXXXX, ID# [id number], Questions: . THIS IS NOT INSURANCE.] omeprazole 40 mg capsule,delayed release RxNorm: 780927 1 Capsule(s) PO daily 10/02/2014 10/01/2014 Inactive melatonin 3 mg tablet RxNorm: 423985 1 Tablet(s) PO QHS No Start Date Active Vitamin D3 oral RxNorm : 2418 oral No Start Date Active diclofenac sodium 75 mg tablet,delayed release RxNorm: 178457 2 Tablet(s) PO daily No Start Date 04/30/2015 Inactive diazepam 5 mg tablet RxNorm: 352829 1 Tablet(s) PO TID No Start Date 10/31/2014 Inactive Multi Vitamin oral RxNorm: oral No Start Date 03/08/2017 Inactive Flonase nasal RxNorm: 53689 nasal No Start Date 03/08/2017 Inactive gabapentin 100 mg tablet RxNorm: 081752 1 Tablet(s) PO TID No Start Date 02/06/2015 Inactive hydrocodone 10 mg-acetaminophen 325 mg tablet RxNorm: 052971 1 Tablet(s) PO QID No Start Date 11/08/2014 Inactive Zithromax Z-Myles 250 mg tablet RxNorm: 547231 1 Tablet(s) PO UD No Start Date 06/24/2017 Inactive clopidogrel 75 mg tablet RxNorm: 225154 1 Tablet(s) PO daily No Start Date 09/03/2016 Inactive atorvastatin 40 mg tablet RxNorm: 021413 1 Tablet(s) PO daily No Start Date 09/20/2017 Inactive sertraline 50 mg tablet RxNorm: 362845 1 Tablet(s) PO daily No Start Date [...] Ord21 ESR 2 mm/hr 11/04/2017 Comp Metabolic Fpx108 NA 143 mEq/L 08/28/2017 Comp Metabolic Ryi546 K 4.2 mEq/L 08/28/2017 Comp Metabolic Qbq184 CL 108 mEq/L 08/28/2017 Comp Metabolic Gif144 CO2 28.0 mEq/L 08/28/2017 Comp Metabolic Cnc511 ANION GAP 11 08/28/2017 Comp Metabolic Xls662 GLUCOSE 89 mg/dL 08/28/2017 Comp Metabolic Env061 Creat 0.8 mg/dL 08/28/2017 Comp Metabolic Zih286 eGFR 78 ml/min/1.73m2 08/28/2017 Comp Metabolic Dlb552 BUN 19 mg/dL 08/28/2017 Comp Metabolic Krc504 B/C Ratio 24.4 Ratio 08/28/2017 Comp Metabolic Cco665 CALCIUM 8.4 mg/dL 08/28/2017 Comp Metabolic Ehj960 ALK PHOS 52 U/L 08/28/2017 Comp Metabolic Syr919 AST(SGOT) 20 U/L 08/28/2017 Comp Metabolic Dkp281 ALT(SGPT) 14 U/L 08/28/2017 Comp Metabolic Wrc195 BILI T 0.5 mg/dL 08/28/2017 Comp Metabolic Wqh892 ALBUMIN 4.0 g/dL 08/28/2017 Comp Metabolic Whs420 TPRO 5.9 g/dL 08/28/2017 Comp Metabolic Pvp739 GLOB 1.9 g/dL 08/28/2017 Comp Metabolic Gph135 A/G Ratio 2.1 Ratio 08/28/2017 Comp Metabolic Sgq982 Osmo 287 mOsmo 08/28/2017 Cbc With Differential [...] 30.4 % 08/28/2017 Cbc With Differential Ord2 Mower% 5.9 % 08/28/2017 Cbc With Differential Ord2 MCH 30.9 pg 08/28/2017 Cbc With Differential Ord2 Eos% [...] 2.28 K/ul 08/28/2017 Cbc With Differential Ord2 Mower ABS# 0.4 K/ul 08/28/2017 Cbc With Differential [...] 31.7 pg 03/09/2017 Cbc With Differential Ord2 Mower% 6.1 % 03/09/2017 Cbc With Differential Ord2 [...] 1.78 K/ul 03/09/2017 Cbc With Differential Ord2 Mower ABS# 0.4 K/ul 03/09/2017 Cbc With Differential Ord2 Eos ABS# 0.1 K/ul 03/09/2017 Cbc With Differential Ord2 Baso ABS# 0.0 K/ul 03/09/2017 Tsh Ord6 hTSH II 0.87 uIU/mL 03/09/2017 %Hba1C Iqc008 % HbA1c 42789-9 4.9 % 03/09/2017 %Hba1C Nyy012 Gluc Ave 94 mg/dL 03/09/2017 Comp Metabolic Ewg310 NA 141 mEq/L 03/09/2017 Comp Metabolic Aol881 K 3.8 mEq/L 03/09/2017 Comp Metabolic Pxv973 CL 105 mEq/L 03/09/2017 Comp Metabolic Fjd349 CO2 29.0 mEq/L 03/09/2017 Comp Metabolic Gad790 ANION GAP 11 03/09/2017 Comp Metabolic Apk737 GLUCOSE 98 mg/dL 03/09/2017 Comp Metabolic Nxm789 Creat 0.7 mg/dL 03/09/2017 Comp Metabolic Nkt831 eGFR 93 ml/min/1.73m2 03/09/2017 Comp Metabolic Itz136 BUN 11 mg/dL 03/09/2017 Comp Metabolic Unm054 B/C Ratio 16.4 Ratio 03/09/2017 Comp Metabolic Hrp143 CALCIUM 9.5 mg/dL 03/09/2017 Comp Metabolic Ulw410 ALK PHOS 90 U/L 03/09/2017 Comp Metabolic Mku297 AST(SGOT) 21 U/L 03/09/2017 Comp Metabolic Drh349 ALT(SGPT) 15 U/L 03/09/2017 Comp Metabolic Kvw629 BILI T 0.6 mg/dL 03/09/2017 Comp Metabolic Mmj251 ALBUMIN 4.5 g/dL 03/09/2017 Comp Metabolic Crd972 TPRO 6.4 g/dL 03/09/2017 Comp Metabolic Mwg457 GLOB 1.9 g/dL 03/09/2017 Comp Metabolic Hbh100 A/G Ratio 2.3 Ratio 03/09/2017 Comp Metabolic Eps814 Osmo 281 mOsmo 03/09/2017 Comp Metabolic Xbn576 NA 142 mEq/L 09/03/2016 Comp Metabolic Dsr170 K 3.9 mEq/L 09/03/2016 Comp Metabolic Zhx506 CL 107 mEq/L 09/03/2016 Comp Metabolic Bxv342 CO2 26.0 mEq/L 09/03/2016 Comp Metabolic Fry075 ANION GAP 13 09/03/2016 Comp Metabolic Yax373 GLUCOSE 107 mg/dL 09/03/2016 Comp Metabolic Npo945 Creat 0.7 mg/dL 09/03/2016 Comp Metabolic Uzs268 eGFR 85 ml/min/1.73m2 09/03/2016 Comp Metabolic Lks584 BUN 16 mg/dL 09/03/2016 Comp Metabolic Wfz549 B/C Ratio 21.9 Ratio 09/03/2016 Comp Metabolic Wkx787 CALCIUM 8.8 mg/dL 09/03/2016 Comp Metabolic Qfp853 ALK PHOS 51 U/L 09/03/2016 Comp Metabolic Sju910 AST(SGOT) 24 U/L 09/03/2016 Comp Metabolic Mbs086 ALT(SGPT) 20 U/L 09/03/2016 Comp Metabolic Jsq961 BILI T 0.7 mg/dL 09/03/2016 Comp Metabolic Eyf077 ALBUMIN 4.1 g/dL 09/03/2016 Comp Metabolic Rqe646 TPRO 6.1 g/dL 09/03/2016 Comp Metabolic Ytl748 GLOB 2.0 g/dL 09/03/2016 Comp Metabolic Itu058 A/G Ratio 2.1 Ratio 09/03/2016 Comp Metabolic Vxj602 Osmo 285 mOsmo 09/03/2016 Cbc With Differential [...] 24.8 % 09/03/2016 Cbc With Differential Ord2 Mower% 6.5 % 09/03/2016 Cbc With Differential Ord2 MCH 30.3 pg 09/03/2016 Cbc With Differential Ord2 MCHC 33.8 pg 09/03/2016 Cbc With Differential Ord2 Eos% 1.3 % 09/03/2016 Cbc With Differential Ord2 PLT 217 K/ul 09/03/2016 Cbc With Differential Ord2 Baso% 0.6 % 09/03/2016 Cbc With Differential Ord2 RDW 15.3 % 09/03/2016 Cbc With Differential Ord2 Neut ABS# 4.11 K/ul 09/03/2016 Cbc With Differential Ord2 Lymph ABS# 1.53 K/ul 09/03/2016 Cbc With Differential Ord2 Mower ABS# 0.4 K/ul 09/03/2016 Cbc With Differential [...] Ord15 CALCIUM 9.1 mg/dL 12/21/2015 Comp Metabolic Qth162 NA 138 mEq/L 07/06/2015 Comp Metabolic Pvc732 K 3.9 mEq/L 07/06/2015 Comp Metabolic Eml951 CL 103 mEq/L 07/06/2015 Comp Metabolic Ieh107 CO2 28.0 mEq/L 07/06/2015 Comp Metabolic Vws289 ANION GAP 11 07/06/2015 Comp Metabolic Nhl271 GLUCOSE 114 mg/dL 07/06/2015 Comp Metabolic Qhd575 Creat 0.7 mg/dL 07/06/2015 Comp Metabolic Bhw312 eGFR 97 ml/min/1.73m2 07/06/2015 Comp Metabolic Bwp517 BUN 11 mg/dL 07/06/2015 Comp Metabolic Jmk426 B/C Ratio 16.9 Ratio 07/06/2015 Comp Metabolic Nwh313 CALCIUM 9.1 mg/dL 07/06/2015 Comp Metabolic Epc761 ALK PHOS 57 U/L 07/06/2015 Comp Metabolic Nyi197 AST(SGOT) 26 U/L 07/06/2015 Comp Metabolic Jog281 ALT(SGPT) 17 U/L 07/06/2015 Comp Metabolic Wjl269 BILI T 0.6 mg/dL 07/06/2015 Comp Metabolic Ped177 ALBUMIN 4.6 g/dL 07/06/2015 Comp Metabolic Ioy088 TPRO 6.7 g/dL 07/06/2015 Comp Metabolic Lib773 GLOB 2.1 g/dL 07/06/2015 Comp Metabolic Uvq557 A/G Ratio 2.2 Ratio 07/06/2015 Comp Metabolic Gqk247 Osmo 276 mOsmo 07/06/2015 Lipid Ord30 CHOL 228 mg/dL 07/06/2015 Lipid Ord30 HDL 48.0 mg/dl 07/06/2015 Lipid Ord30 TRIG 176 mg/dL 07/06/2015 Lipid Ord30 LDL 145 mg/dL 07/06/2015 Lipid Ord30 C/HDL 4.8 Ratio 07/06/2015 Tsh Ord6 hTSH II 0.74 uIU/mL 05/01/2015 Comp Metabolic Aun846 NA 141 mEq/L 05/01/2015 Comp Metabolic Azb338 K 4.0 mEq/L 05/01/2015 Comp Metabolic Cai077 CL 106 mEq/L 05/01/2015 Comp Metabolic Ech043 CO2 26.0 mEq/L 05/01/2015 Comp Metabolic Voo203 ANION GAP 13 05/01/2015 Comp Metabolic Acl686 GLUCOSE 124 mg/dL 05/01/2015 Comp Metabolic Xbk203 Creat 0.8 mg/dL 05/01/2015 Comp Metabolic Ctm521 eGFR 79 ml/min/1.73m2 05/01/2015 Comp Metabolic Lnx014 BUN 13 mg/dL 05/01/2015 Comp Metabolic Rjj782 B/C Ratio 16.7 Ratio 05/01/2015 Comp Metabolic Gzq002 CALCIUM 9.3 mg/dL 05/01/2015 Comp Metabolic Vyn903 ALK PHOS 54 U/L 05/01/2015 Comp Metabolic Ldg593 AST(SGOT) 21 U/L 05/01/2015 Comp Metabolic Elp159 ALT(SGPT) 14 U/L 05/01/2015 Comp Metabolic Msv773 BILI T 0.5 mg/dL 05/01/2015 Comp Metabolic Kmg640 ALBUMIN 4.5 g/dL 05/01/2015 Comp Metabolic Fxr054 TPRO 6.4 g/dL 05/01/2015 Comp Metabolic Pvt024 GLOB 1.9 g/dL 05/01/2015 Comp Metabolic Gok206 A/G Ratio 2.4 Ratio 05/01/2015 Comp Metabolic Xwi419 Osmo 283 mOsmo 05/01/2015 Cbc With Differential [...] Differential Ord2 RDW 16.8 % 05/01/2015 %Hba1C Nzy464 % HbA1c 19087-4 5.4 % 01/29/2015 %Hba1C Iar768 Gluc Ave 108 mg/dL 01/29/2015 Lipid Ord30 CHOL 221 mg/dL 01/26/2015 Lipid Ord30 HDL 37.0 mg/dl 01/26/2015 Lipid Ord30 TRIG 274 mg/dL 01/26/2015 Lipid Ord30 LDL 129 mg/dL 01/26/2015 Lipid Ord30 C/HDL 6.0 Ratio 01/26/2015 Tsh Ord6 hTSH II 0.85 uIU/mL 01/26/2015 Comp Metabolic Qxf816 NA 137 mEq/L 01/26/2015 Comp Metabolic Nsq665 K 4.0 mEq/L 01/26/2015 Comp Metabolic Aay758 CL 104 mEq/L 01/26/2015 Comp Metabolic Tsd853 CO2 27.0 mEq/L 01/26/2015 Comp Metabolic Iml058 ANION GAP 10 01/26/2015 Comp Metabolic Crf068 GLUCOSE 131 mg/dL 01/26/2015 Comp Metabolic Mok717 Creat 0.8 mg/dL 01/26/2015 Comp Metabolic Vyq917 eGFR 77 ml/min/1.73m2 01/26/2015 Comp Metabolic Lfp523 BUN 16 mg/dL 01/26/2015 Comp Metabolic Mxc746 B/C Ratio 20.0 Ratio 01/26/2015 Comp Metabolic Iss882 CALCIUM 9.1 mg/dL 01/26/2015 Comp Metabolic Kjv219 ALK PHOS 66 U/L 01/26/2015 Comp Metabolic Qtg303 AST(SGOT) 24 U/L 01/26/2015 Comp Metabolic Yqo872 ALT(SGPT) 20 U/L 01/26/2015 Comp Metabolic Vqk777 BILI T 0.4 mg/dL 01/26/2015 Comp Metabolic Xmq640 ALBUMIN 4.2 g/dL 01/26/2015 Comp Metabolic Qee130 TPRO 6.4 g/dL 01/26/2015 Comp Metabolic Ggj934 GLOB 2.2 g/dL 01/26/2015 Comp Metabolic Mrd856 A/G Ratio 1.9 Ratio 01/26/2015 Comp Metabolic Dyl799 Osmo 277 mOsmo 01/26/2015 Cbc With Differential [...] Differential Ord2 RDW 15.5 % 01/26/2015 B12 Hjt596 B12 669.00 pg/ml 01/26/2015 Review of Systems [...] lips 02/22/2018 None Full Exam - General 1995 [...] NO PRSV 4 BLANCA 3 YRS+ CPT-4: 97146 02/22/2018 ADMIN INFLUENZA VIRUS VAC CPT-4: G0008 03/18/2017 FLU VACC PRSV FREE INC ANTIG CPT-4: 57877 03/18/2017 INITIAL PREVENTIVE EXAM CPT-4: G0402 07/06/2015 IIV4 FLU VACC NO PRESERV ID Formatting Model/CDA Sections, Assigned to SNOMED CT: [id number] CPT-4: 65492Netdsqw 03/26/2015 IMMUNIZATION ADMIN CPT -4: 22064 03/26/2015 Vital Signs Date Vital 02/22/2018 Blood Pressure 1: 140/70 Code : 8480-6 BMI: 26.3 Code : 56900-4 Heart Rate 1 : 60 bpm Height: 5'1" SpO2: 97% Weight: 139 lbs 12/29/2017 Blood Pressure 1: 110/58 Code : 8480-6 BMI: 23.8 Code : 06222-6 Heart Rate 1 : 56 bpm Height: 5'1" SpO2: 98% Weight: 126 lbs 10/28/2017 Blood Pressure 1: 96/68 Code : 8480-6 BMI: 21.7 Code : 23880-3 Heart Rate 1 : 68 bpm Height: 5'1" SpO2: 98% Weight: 115 lbs 09/23/2017 Blood Pressure 1: 134/72 Code : 8480-6 BMI: 22.5 Code : 65893-2 Heart Rate 1 : 72 bpm Height: 5'1" SpO2: 97% Weight: 119 lbs 03/18/2017 Blood Pressure 1: 140/72 Code : 8480-6 BMI: 21.5 Code : 65108-5 Heart Rate 1 : 64 bpm Height: 5'1" SpO2: 96% Weight: 114 lbs 03/09/2017 Blood Pressure 1: 120/72 Code : 8480-6 BMI: 21.5 Code : 68953-2 Heart Rate 1 : 75 bpm Height: 5'1" SpO2: 97% Weight: 114 lbs 12/09/2016 Blood Pressure 1: 130/76 Code : 8480-6 BMI: 23.8 Code : 80989-5 Heart Rate 1 : 68 bpm Height: 5'1" SpO2: 98% Weight: 126 lbs 09/08/2016 Blood Pressure 1: 162/80 Code : 8480-6 Blood Pressure 2: 145/90 Code: 8480-6 BMI: 24.7 Code: 35676-8 Heart Rate 1: 77 bpm Height: 5'1" SpO2: 97% Weight: 130 lbs 8 oz 08/11/2016 Blood Pressure 1: 130/80 Code : 8480-6 BMI: 25.9 Code : 20729-2 Heart Rate 1 : 62 bpm Height: 5'1" SpO2: 97% Weight: 137 lbs 07/03/2016 Blood Pressure 1: 134/74 Code : 8480-6 BMI: 26.8 Code : 47760-8 Heart Rate 1 : 74 bpm Height: 5'1" SpO2: 97% Weight: 142 lbs 06/19/2016 Blood Pressure 1: 118/66 Code : 8480-6 Heart Rate 1: 72 bpm SpO2: 96% Weight: 142 lbs 02/04/2016 Blood Pressure 1: 130/80 Code : 8480-6 BMI: 27.2 Code : 20203-7 Heart Rate 1 : 76 bpm Height: 5'1" SpO2: 96% Weight: 144 lbs 01/07/2016 Blood Pressure 1: 136/64 Code : 8480-6 BMI: 27.6 Code : 34681-2 Heart Rate 1 : 73 bpm Height: 5'1" SpO2: 987% Weight: 146 lbs 12/17/2015 Blood Pressure 1: 128/86 Code : 8480-6 BMI: 27.0 Code : 79833-9 Heart Rate 1 : 59 bpm Height: 5'1" SpO2: 96% Weight: 143 lbs 10/16/2015 Blood Pressure 1: 122/78 Code : 8480-6 BMI: 25.7 Code : 60063-1 Heart Rate 1 : 71 bpm Height: 5'1" SpO2: 96% Weight: 136 lbs 08/16/2015 Blood Pressure 1: 138/88 Code : 8480-6 BMI: 27.0 Code : 30411-6 Heart Rate 1 : 75 bpm Height: 5'1" SpO2: 98% Weight: 143 lbs 07/06/2015 Blood Pressure 1: 120/72 Code : 8480-6 BMI: 26.5 Code : 42210-9 Heart Rate 1 : 72 bpm Height: 5'1" SpO2: 96% Weight: 140 lbs 06/07/2015 Blood Pressure 1: 152/86 Code : 8480-6 BMI: 26.1 Code : 63523-2 Heart Rate 1 : 88 bpm Height: 5'1" SpO2: 97% Weight: 138 lbs 05/01/2015 Blood Pressure 1: 120/80 Code : 8480-6 BMI: 27.0 Code : 93284-9 Heart Rate 1 : 82 bpm Height: 5'1" SpO2: 98% Temperature: 36.7 (C) / 98.0 (F) Weight: 143 lbs 03/26/2015 Blood Pressure 1: 140/80 Code : 8480-6 BMI: 28.0 Code : 29127-8 Heart Rate 1 : 69 bpm Height: 5'1" SpO2: 96% Weight: 148 lbs 03/13/2015 Blood Pressure 1: 128/70 Code : 8480-6 BMI: 28.2 Code : 55328-7 Heart Rate 1 : 76 bpm Height: 5'1" Weight: 149 lbs 01/30/2015 Blood Pressure 1: 142/68 Code : 8480-6 BMI: 28.7 Code : 29743-4 Heart Rate 1 : 86 bpm Height: 5'1" SpO2: 96% Weight: 152 lbs 10/16/2014 Blood Pressure 1: 160/88 Code : 8480-6 BMI: 28.2 Code : 65266-8 Heart Rate 1 : 66 bpm Height: [...] data Encounters Encounter Performer Location Codes Date 01016 EST. PATIENT, LEVEL III Diagnosis: Other insomnia[ICD10: G47.09] Diagnosis: Dementia in other diseases classified elsewhere without behavioral disturbance[ICD10: F02.80] Diagnosis: Encounter for immunization[ICD10: Z23] [facility] CPT-4: 41540 02/22/2018 [id number] EST. PATIENT, LEVEL IV Diagnosis: Dementia in other diseases classified elsewhere without behavioral disturbance[ICD10: F02.80] Diagnosis: Major depressive disorder, recurrent, mild[ICD10: F33.0] Diagnosis: Other allergic rhinitis[ICD10: J30.89] Angelica Ochoa MD, [facility] CPT-4: 49667 12/29/2017 ([id number]) 83764 EST. PATIENT, LEVEL IV Diagnosis: Dementia in other diseases classified elsewhere without behavioral disturbance[ICD10: F02.80] Diagnosis: Major depressive disorder, recurrent, mild[ICD10: F33.0] Diagnosis: Allergy to other foods[ICD10: Z91.018] Marylu Ochoa MD, [facility] CPT-4: 63155 10/28/2017 73330 EST. 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 PATIENT, LEVEL IV Diagnosis: Essential (primary) hypertension[ICD10: I10] Diagnosis: Major depressive disorder, recurrent, moderate[ICD10: F33.1] Diagnosis: Underweight[ICD10: R63.6] Diagnosis: Localization-related (focal) (partial) symptomatic epilepsy and epileptic syndromes with simple partial seizures, not intractable, without status epilepticus[ICD10: G40.109] Marylu Ochoa MD, [facility] CPT-4: 22133 03/09/2017 ([id number]) 78484 EST. PATIENT, LEVEL IV Diagnosis: Mixed hyperlipidemia[ICD10: E78.2] Diagnosis: Chronic pain syndrome[ICD10: G89.4] Diagnosis: Major depressive disorder, recurrent, mild[ICD10: F33.0] Marylu Ochoa MD, [facility] CPT-4: 28337 12/09/2016 ([id number]) 81925 EST. PATIENT, LEVEL IV Diagnosis: Essential (primary) hypertension[ICD10: I10] Diagnosis: Low back pain[ICD10: M54.5] Diagnosis: Personal history of transient ischemic attack (TIA), and cerebral infarction without residual deficits[ICD10: Z86.73] Diagnosis: Major depressive disorder, recurrent, moderate[ICD10: F33.1] Diagnosis: Other sleep apnea[ICD10: G47.39] Marylu Ochoa MD, [facility] CPT-4: 78133 09/08/2016 ([id number]) 39953 EST. 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 PATIENT, LEVEL III Diagnosis: Chronic pain syndrome[ICD10: G89.4] Diagnosis: Low back pain[ICD10: M54.5] Diagnosis: Major depressive disorder, recurrent, mild[ICD10: F33.0] Diagnosis: Mild cognitive impairment, so stated[ICD10: G31.84] Angelica Ochoa MD, [facility] CPT-4: 87019 07/03/2016 ([id number]) 22077 EST. PATIENT, LEVEL III Diagnosis: Chronic pain syndrome[ICD10: G89.4] Donna Ochoa MD, [facility] CPT-4: 59177 06/19/2016 ([id number]) 63991 EST. PATIENT, LEVEL IV Diagnosis: Chronic pain syndrome[ICD10: G89.4] Diagnosis: Mild cognitive impairment, so stated[ICD10: G31.84] Donna Ochoa MD, [facility] CPT-4: 84608 02/04/2016 ([id number]) 83749 EST. PATIENT, LEVEL IV Diagnosis: Chronic pain syndrome[ICD10: G89.4] Diagnosis: Mild cognitive impairment, so stated[ICD10: G31.84] Diagnosis: Major depressive disorder, recurrent, mild[ICD10: F33.0] Donna Ochoa MD , [facility] CPT-4: 69175 01/07/2016 ([id number]) 13132 EST. PATIENT, LEVEL IV Diagnosis: Chronic pain syndrome[ICD10: G89.4] Diagnosis: Headache[ICD10: R51] Diagnosis: Major depressive disorder, recurrent, mild[ICD10: F33.0] Diagnosis: Mixed hyperlipidemia[ICD10: E78.2] Donna Ochoa MD, [facility] CPT-4: 36865 12/17/2015 ([id number]) 56143 EST. PATIENT, LEVEL III Diagnosis: Chronic pain syndrome[ICD10: G89.4] Diagnosis: Major depressive disorder, recurrent, mild[ICD10: F33.0] Donna Ochoa MD [facility] CPT-4: 69924 10/16/2015 ([id number]) 05804 EST. PATIENT, LEVEL III Diagnosis: Low back pain[ICD10: M54.5] Donna Ochoa MD, [facility] CPT-4: 23257 08/16/2015 ([id number]) 77893 EST. 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 PATIENT, LEVEL IV Diagnosis: Major depressive disorder, recurrent, mild[ICD10: F33.0] Diagnosis: Chronic pain syndrome[ICD10: G89.4] Diagnosis: Other fatigue[ICD10: R53.83] Donna Ochoa MD, [facility] CPT-4: 67231 05/01/2015 ([id number]) 81633 EST. PATIENT, LEVEL II Diagnosis: Plantar fascial fibromatosis[ICD10: M72.2] Donna Ochoa MD, [facility] CPT-4: 93978 03/26/2015 ([id number]) 90603 EST. PATIENT, LEVEL III Diagnosis: Plantar fascial fibromatosis[ICD10: M72.2] Donna Ochoa MD, [facility] CPT-4: 34164 03/13/2015 ([id number]) 79996 EST. PATIENT, LEVEL III Diagnosis: Hyperlipidemia[ICD9: 272.4] Diagnosis: ALLERGIC RHINITIS[ICD9: 477.9] Diagnosis: Chronic pain syndrome[ICD9: 338.4] Donna Ochoa MD, [facility] CPT-4: 07727 01/30/2015 ([id number]) OFFICE VISIT, NEW - LEVEL 4 Diagnosis: ESOPHAGEAL REFLUX[ICD9: 530.81] Diagnosis: Peripheral neuropathy[ICD9: 356.9] Diagnosis: Chronic pain syndrome[ICD9: 338.4] Diagnosis: OSTEOARTH NOS-UNSPEC[ICD9: 715.90] Diagnosis: DEPRESSIVE DISORDER NEC[ICD9: 311] Marylu Ochoa MD, [facility] CPT-4: 17457 10/16/2014 Plan of Care Planned Activity Notes Codes Status Date Appointment: [facility] [place] [facility] ([facility]) Moderate 03/24/2018 Visit Plan: Insomnia [...] treatment. 02/22/2018 Appointment: [facility] [place] [phone] [facility] [place] (15 min) Moderate 02/22/2018 Appointment: [facility] [place] [phone] [facility] (15 min) Moderate 02/22/2018 Patient Education: Patient Medication Summary Completed 02/22/2018 Appointment: [facility] [place] [phone] [facility] [place] (15 min) Moderate 02/18/2018 Visit Plan: [...] Summary Completed 12/29/2017 Appointment: [facility] [place] [phone] [facility] (15 min) Moderate 12/23/2017 Patient Education: Patient [...] of adalg[place]. 10/28/2017 App[facility]ment: [phone] [place] (15 min) Moderate 10/28/2017 Patient Education: [...] make a follow up appointment with her handyman - The patient has been counseled to [...] concerns. 09/23/2017 Appointment: Angelica [place] WPtel: [phone] [facility] (30 min) Complex 09/23/2017 Patient Education: Patient Medication Summary Completed 09/23/2017 Appointment: Marylu Ochoa WPtel: [phone] [facility] (15 min) Moderate 08/26/2017 Appointment: Angelica [place] WPtel: [phone] [facility] (30 min) Complex 06/30/2017 Referral: External, Ordering Provider Referral Initiated 05/27/2017 Care Plan: Referral Order SNOMED-CT : [id number] Pending 04/20/2017 Visit Plan: Anxiety - the [...] make a follow up appointment with her handyman - The patient has been counseled to [...] home. 03/09/2017 Appointment: Marylu Ochoa WPtel: [phone] [facility] (30 min) Complex 03/09/2017 Patient Education: Patient Medication Summary Completed 03/09/2017 Appointment: [facility] [place] [facility] [phone] [phone] [place] (30 min) Complex 03/06/2017 Appointment: [phone] [place] (15 min) Moderate 01/08/2017 Visit Plan: [...] Completed 12/09/2016 Appointment: [phone] [facility] (15 min) Moderate 11/11/2016 Appointment: [facility] [place] [facility] [phone] [facility] (30 min) Complex 10/09/2016 Visit Plan: Hypertension [...] of Aricept through [facility], refill [place] Suspected sleep disordered breathing with episodes of nocturnal fits of not breathing correctly - pt advised of need for an overnight oxygen study to be done to see if there is nocturnal hypoxemia contributing to her memory loss, htn. 09/08/2016 Appointment: Marylu Ochoa WPtel: [facility] (15 min) Moderate 09/08/2016 Patient Education: Patient Medication Summary Completed 09/08/2016 Appointment: Angelica [place] WPtel: [facility] (30 min) Complex 08/19/2016 Visit Plan: Hyperlipidemia [...] Marylu Ochoa WPtel: [facility] (15 min) Moderate 08/11/2016 Patient Education: [...] [place] WPtel: [facility] [address] (30 min) Complex 07/03/2016 Patient Education: Patient Medication Summary Completed 07/03/2016 Care Plan: Referral Order SNOMED-CT : [id number] Pending 07/03/2016 Visit Plan: Chronic Pain Syndrome - pt has chronic pain - has been maintained on current medications, has not sought out other medications , only uses PRN pain medications as directed, and understands the consequences of over-medication. 06/19/2016 Appointment: Donna Walden WPtel: [address] [place], [place] [phone] [place] [address] (30 min) Complex 06/19/2016 Patient Education: Patient Medication Summary Completed 06/19/2016 Appointment: Donna Walden WPtel: [address] [place], [place] [phone] [place] [address] (30 min) Complex 06/05/2016 Visit Plan: Chronic Pain Syndrome - pt has chronic pain - has been maintained on current medications, has not sought out other medications , only uses PRN pain medications as directed, and understands the consequences of over-medication. Mild cognitive impairment-discussed with Dr Ochoa- [place] starter pack 02/04/2016 Appointment: Donna Walden WPtel: [phone] [place] (30 min) Complex 02/04/2016 Patient Education: Patient Medication Summary Completed 02/04/2016 Appointment: Donna Walden WPtel: [phone] (30 min) Complex 01/14/2016 Visit Plan: Chronic [...] Walden WPtel: [facility] [address] (15 min) Moderate 01/07/2016 Patient Education: Patient Medication Summary Completed 01/07/2016 Visit Plan: Chronic Pain Syndrome - pt has chronic pain - has been maintained on current medications, has not sought out other medications , only uses PRN pain medications as directed, and understands the consequences of over-medication. Headaches-memory loss-schedule MRI brain Hyperlipidemia- check fasting labs Csmqlmpomn-shokwy-ds change in medications at this time 12/17/2015 Patient Education: Patient Medication Summary Completed 12/17/2015 Appointment: Donna Walden WPtel: [facility] [address] (30 min) Complex 12/13/2015 Visit Plan: [...] medications. 10/16/2015 Appointment: Donna Walden WPtel: [phone] (30 min) Complex 10/16/2015 Patient Education: [...] pain symptoms. 06/07/2015 Appointment: Marylu Ochoa WPtel: [address] [place], [place] [address] (15 min) Moderate 06/07/2015 Patient Education: Patient [...] shoes - discussed inserts and referral to commercial accountant-patient wants to wait but will let us [...] symptoms. 10/16/2014 Appointment: [phone] [facility] [place] ([place] New Patient 10/16/2014 Patient [...] make a follow up appointment with her handyman - The patient has been counseled to [...] supportive shoes -discussed inserts and referral to commercial accountant-patient wants to wait but will let us [...] Headaches-memory loss-schedule MRI brain Hyperlipidemia-check fasting labs Efgzrlniiu-[id number]-[id number] change in medications at this time call [...] patient - she is to schedule in [place] . Chronic Pain Syndrome - pt has [...] 90 day supply of Aricept through [facility] Add 50 mg Losartan daily for hypertension [...] 90 day supply of Aricept through [facility] Add 50 mg Losartan daily for hypertension [...] about referring her to Dr. Dexter grullon [place] (neurologist) . Anxiety - the patient has [...] make a follow up appointment with her handyman - The patient has been counseled to [...]
--- OUTSIDE RECORDS SUMMARY | 2018-09-20 05:58 | XMS REPORT | CCD ---
Author Author Marylu Ochoa Organization Marylu Ochoa MD, [facility] Address [address] [place] [address] Phone Care Team Providers Care Family Medicine Chair Name Role Phone PP Unavailable CCM Unavailable Summary Purpose Interface Exchange Insurance Providers Payer name Policy type / Coverage type Covered green party ID Effective Begin Date Effective End Date WPS Medicare Part B Medicare Part B [id number] 2015 Unknown [facility] Medicare Part B [id number] 2015 Unknown Family history Mother Diagnosis Age [...] Unknown Retired 10/16/[address]: 005820218 Never smoker 10/16/[address]: 738308461 Never drinks alcohol 10/16/2014 Allergies, Adverse Reactions, [...] hydrocodone 10 mg-acetaminophen 325 mg tablet RxNorm: 660138 1 Tablet(s) PO Q6 as needed may fill on 03-27-18 03/22/201808/2017 Active Aricept 10 mg tablet RxNorm: 903589 1 TABLET(S) PO DAILY 201707/12/2018 Active hydrocodone 10 mg-acetaminophen 325 mg tablet RxNorm: 325601 1 Tablet(s) PO Q6 as needed 02/26/2018 03/21/2018 Inactive diazepam 5 mg tablet RxNorm: 462792 1/2 Tablet(s) PO QHS as needed 02/22/2018 03/23/2018 Inactive hydrocodone 10 mg-acetaminophen 325 mg tablet RxNorm: 818057 1 Tablet(s) PO Q6 as needed 02/05/2018 02/25/2018 Inactive levetiracetam 500 mg tablet RxNorm: 082725 1 TABLET(S) PO BID 01/07/2018 04/06/2018 Inactive pt to finish out supply of liquid then start on tablets hydrocodone 10 mg-acetaminophen 325 mg tablet RxNorm: 178210 1 Tablet(s) PO Q6 as needed 12/29/2017 01/27/2018 Inactive hydrocodone 10 mg-acetaminophen 325 mg tablet RxNorm: 580800 1 Tablet(s) PO Q6 as needed 12/10/2017 12/28/2017 Inactive Zyrtec 10 mg tablet RxNorm: 9496254 1 Tablet(s) PO QAM for allergies 10/28/2017 05/25/2018 Active Zantac 75 mg tablet RxNorm: 874108 1 Tablet(s) PO BID 201702/24/2018 Inactive Aricept 10 mg tablet RxNorm: 213937 1 TABLET(S) PO DAILY 201702/23/2018 Inactive Cymbalta 30 mg capsule,delayed release RxNorm: 680105 1 Capsule(s) PO daily 10/22/2017 05/19/2018 Active hydrocodone 10 mg-acetaminophen 325 mg tablet RxNorm: 335564 1 Tablet(s) PO Q6 as needed 10/20/2017 11/18/2017 Inactive Voltaren 1 % topical gel RxNorm: 647176 4 Gram(s) TOP TID as needed for pain as needed 09/23/2017 09/17/2018 Active levetiracetam 500 mg tablet RxNorm: 533863 1 TABLET(S) PO BID 09/21/2017 10/20/2017 Inactive pt to finish out supply of liquid then start on tablets hydrocodone 10 mg-acetaminophen 325 mg tablet RxNorm: 748797 1 Tablet(s) PO Q6 as needed 08/27/2017 09/25/2017 Inactive Aricept 10 mg tablet RxNorm: 231842 1 Tablet(s) PO daily 201709/16/2017 Inactive Aricept 10 mg tablet RxNorm: 484730 1 Tablet(s) PO daily 201708/17/2017 Inactive hydrocodone 10 mg-acetaminophen 325 mg tablet RxNorm: 200101 1 Tablet(s) PO Q6 as needed 07/28/2017 08/26/2017 Inactive Zithromax Z-Myles 250 mg tablet RxNorm: 559506 1 Tablet(s) PO UD 06/25/2017 09/20/2017 Inactive hydrocodone 10 mg-acetaminophen 325 mg tablet RxNorm: 937212 1 Tablet(s) PO Q6 as needed 06/17/2017 07/16/2017 Inactive Namenda XR 28 mg capsule sprinkle,extended release RxNorm: 560803 1 Capsule(s) PO daily 05/08/2017 05/02/2018 Active Aricept 10 mg tablet RxNorm: 231673 1 Tablet(s) PO daily 201608/05/2017 Inactive hydrocodone 10 mg-acetaminophen 325 mg tablet RxNorm: 026754 1 Tablet(s) PO Q6 as needed 05/05/2017 06/03/2017 Inactive hydrocodone 10 mg-acetaminophen 325 mg tablet RxNorm: 577239 1 Tablet(s) PO Q6 as needed 04/06/2017 05/04/2017 Inactive diazepam 2 mg tablet RxNorm: 423151 1/2 - 1 Tablet(s) PO BID as needed 03/18/2017 09/20/2017 Inactive Cymbalta 30 mg capsule,delayed release RxNorm: 753087 1 Capsule(s) PO daily 03/09/2017 10/04/2017 Inactive levetiracetam 500 mg tablet RxNorm: 761312 1 Tablet(s) PO BID 03/09/2017 08/05/2017 Inactive pt to finish out supply of liquid then start on tablets Aricept 5 mg tablet RxNorm: 861100 1 Tablet(s) PO daily 201605/07/2017 Inactive pantoprazole 40 mg tablet,delayed release RxNorm: 317298 1 Tablet(s) PO daily 03/09/2017 07/06/2017 Inactive hydrocodone 10 mg-acetaminophen 325 mg tablet RxNorm: 197804 1 Tablet(s) PO Q6 as needed 12/04/2016 03/08/2017 Inactive hydrocodone 10 mg-acetaminophen 325 mg tablet RxNorm: 554191 1 Tablet(s) PO Q6 as needed 11/06/2016 12/03/2016 Inactive hydrocodone 10 mg-acetaminophen 325 mg tablet RxNorm: 334583 1 Tablet(s) PO Q6 as needed 10/08/2016 11/05/2016 Inactive Voltaren 1 % topical gel RxNorm: 639174 4 Gram(s) TOP TID as needed for pain as needed 09/25/2016 09/19/2017 Inactive hydrocodone 10 mg-acetaminophen 325 mg tablet RxNorm: 785859 1 Tablet(s) PO Q6 as needed 09/09/2016 10/07/2016 Inactive Voltaren 1 % topical gel RxNorm: 058364 1 Application TOP TID 09/08/2016 09/24/2016 Inactive Aricept 5 mg tablet RxNorm: 266827 1 Tablet(s) PO daily 201612/06/2016 Inactive Cymbalta 30 mg capsule,delayed release RxNorm: 766612 1 Capsule(s) PO daily 09/08/2016 12/06/2016 Inactive losartan 50 mg tablet RxNorm: 491878 1 Tablet(s) PO daily 201610/07/2016 Inactive clopidogrel 75 mg tablet RxNorm: 096327 75 MG PO DAILY 201609/20/2017 Inactive hydrocodone 10 mg-acetaminophen 325 mg tablet RxNorm: 613042 1 Tablet(s) PO Q6 as needed 08/15/2016 09/08/2016 Inactive hydrocodone 10 mg-acetaminophen 325 mg tablet RxNorm: 968107 1 Tablet(s) PO Q6 as needed 07/18/2016 08/14/2016 Inactive Cymbalta 30 mg capsule,delayed release RxNorm: 929485 1 Capsule(s) PO daily 07/03/2016 09/07/2016 Inactive Aricept 5 mg tablet RxNorm: 830717 1 Tablet(s) PO daily 201608/01/2016 Inactive Namenda XR 28 mg capsule sprinkle,extended release RxNorm: 409548 1 Capsule(s) PO daily 07/03/2016 05/07/2017 Inactive diazepam 5 mg tablet RxNorm: 757603 Tablet(s) PO daily as needed TAKE 1/2 TO 1 TABLET BY MOUTH DAILY NEEDED FOR ANXIETY 06/25/2016 03/06/2017 Inactive hydrocodone 10 mg-acetaminophen 325 mg tablet RxNorm: 791235 1 Tablet(s) PO Q6 as needed 06/19/2016 07/17/2016 Inactive Namenda XR 28 mg capsule sprinkle,extended release RxNorm: 346200 1 Capsule(s) PO daily 06/19/2016 07/02/2016 Inactive gabapentin 100 mg capsule RxNorm: 902378 1 Capsule(s) PO TID 03/08/2017 Inactive hydrocodone 10 mg-acetaminophen 325 mg tablet RxNorm: 531233 1 Tablet(s) PO Q6 as needed 05/27/2016 06/18/2016 Inactive diazepam 5 mg tablet RxNorm: 164464 Tablet(s) TAKE 1/2 TO 1 TABLET BY MOUTH DAILY NEEDED FOR ANXIETY 05/15/20162016 Inactive hydrocodone 10 mg-acetaminophen 325 mg tablet RxNorm: 282115 1 Tablet(s) PO Q6 as needed 04/29/2016 05/26/2016 Inactive omeprazole 40 mg capsule,delayed release RxNorm: 846979 Capsule(s) 1 CAPSULE(S) PO DAILY 04/28/2016 03/08/2017 Inactive diazepam 5 mg tablet RxNorm: 176247 Tablet(s) TAKE 1/2 TO 1 TABLET BY MOUTH DAILY NEEDED FOR ANXIETY 04/14/20162015 Inactive hydrocodone 10 mg-acetaminophen 325 mg tablet RxNorm: 256926 1 Tablet(s) PO Q6 as needed 04/01/2016 04/28/2016 Inactive Namenda XR 28 mg capsule sprinkle,extended release RxNorm: 726870 1 Capsule(s) PO daily 03/13/2016 06/18/2016 Inactive Namenda XR 28 mg capsule sprinkle,extended release RxNorm: 623458 1 Capsule(s) PO daily 03/12/2016 03/12/2016 Inactive diazepam 5 mg tablet RxNorm: 670572 Tablet(s) TAKE 1/2 TO 1 TABLET BY MOUTH DAILY NEEDED FOR ANXIETY 02/25/20162015 Inactive Namenda XR 28 mg capsule sprinkle,extended release RxNorm: 660802 1 Capsule(s) PO daily 02/04/2016 03/11/2016 Inactive hydrocodone 10 mg-acetaminophen 325 mg tablet RxNorm: 027243 1 Tablet(s) PO Q6 as needed 02/04/2016 03/04/2016 Inactive omeprazole 40 mg capsule,delayed release RxNorm: 619689 1 CAPSULE(S) PO DAILY 01/23/2016 04/27/2016 Inactive [SAVINGS FOR NON-COVERED DRUGS -- BIN:[id number], PCN: [id number], Group: XXXXX, ID# XXXXXXX, Questions: . THIS IS NOT INSURANCE.] sertraline 50 mg tablet RxNorm: 269235 TAKE 1 1/2 TABLET BY MOUTH ONCE DAILY 01/10/2016 03/08/2017 Inactive hydrocodone 10 mg-acetaminophen 325 mg tablet RxNorm: 164859 1 Tablet(s) PO Q6 as needed 01/07/2016 02/03/2016 Inactive diazepam 5 mg tablet RxNorm: 464789 Tablet(s) TAKE 1/2 TO 1 TABLET BY MOUTH DAILY NEEDED FOR ANXIETY 12/17/20152015 Inactive hydrocodone 10 mg-acetaminophen 325 mg tablet RxNorm: 182414 1 Tablet(s) PO Q6 as needed 12/10/2015 01/06/2016 Inactive gabapentin 100 mg capsule RxNorm: 276438 1 Capsule(s) PO TID 03/11/2016 Inactive gabapentin 100 mg capsule RxNorm: 329683 1 Capsule(s) PO TID 11/12/2015 Inactive hydrocodone 10 mg-acetaminophen 325 mg tablet RxNorm: 742116 1 Tablet(s) PO Q6 as needed 11/12/2015 12/09/2015 Inactive hydrocodone 10 mg-acetaminophen 325 mg tablet RxNorm: 731245 1 Tablet(s) PO Q6 as needed 10/16/2015 11/11/2015 Inactive hydrocodone 10 mg-acetaminophen 325 mg tablet RxNorm: 873365 1 Tablet(s) PO Q6 as needed 09/17/2015 10/15/2015 Inactive hydrocodone 10 mg-acetaminophen 325 mg tablet RxNorm: 583786 1 Tablet(s) PO Q6 as needed 08/16/2015 09/16/2015 Inactive diazepam 5 mg tablet RxNorm: 006501 Tablet(s) TAKE 1/2 TO 1 TABLET BY MOUTH DAILY NEEDED FOR ANXIETY 07/30/20152015 Inactive diazepam 5 mg tablet RxNorm: 283625 Tablet(s) TAKE 1/2 TO 1 TABLET BY MOUTH DAILY NEEDED FOR ANXIETY 07/27/20152015 Inactive hydrocodone 10 mg-acetaminophen 325 mg tablet RxNorm: 083222 1 Tablet(s) PO Q6 as needed 07/19/2015 08/15/2015 Inactive omeprazole 40 mg capsule,delayed release RxNorm: 747738 1 CAPSULE(S) PO DAILY 07/19/2015 01/14/2016 Inactive [SAVINGS FOR NON-COVERED DRUGS -- BIN:[id number], PCN: ASPROD1, Group: XXXXX, ID# [id number], Questions: . THIS IS NOT INSURANCE.] hydrocodone 10 mg-acetaminophen 325 mg tablet RxNorm: 062934 1 Tablet(s) PO Q6 as needed 06/20/2015 07/18/2015 Inactive baclofen 10 mg tablet RxNorm: 627230 1 Tablet(s) PO TID 201506/07/2015 Inactive baclofen 10 mg tablet RxNorm: 350378 1 Tablet(s) PO TID 201507/07/2015 Inactive diazepam 5 mg tablet RxNorm: 230015 TAKE 1/2 TO 1 TABLET BY MOUTH DAILY NEEDED FOR ANXIETY 05/29/2015 07/26/2015 Inactive sertraline 50 mg tablet RxNorm: 782228 1.5 Tablet(s) PO daily 05/02/2015 10/28/2015 Inactive sertraline 50 mg tablet RxNorm: 412926 1.5 Tablet(s) PO daily 05/01/2015 05/01/2015 Inactive patient to call when needed diazepam 5 mg tablet RxNorm: 034001 1/2-1 Tablet(s) PO QDAY PRN 05/01/2015 05/29/2015 Inactive hydrocodone 10 mg-acetaminophen 325 mg tablet RxNorm: 956766 1 Tablet(s) PO Q6 as needed 04/23/2015 06/19/2015 Inactive hydrocodone 10 mg-acetaminophen 325 mg tablet RxNorm: 593182 1 Tablet(s) PO Q6 as needed 03/26/2015 04/22/2015 Inactive hydrocodone 10 mg-acetaminophen 325 mg tablet RxNorm: 193076 1 Tablet(s) PO Q6 as needed 02/26/2015 03/25/2015 Inactive Lyrica 50 mg capsule RxNorm: 370809 1 Capsule(s) PO TID 201402/03/2016 Inactive Lyrica 50 mg capsule RxNorm: 238202 1 Capsule(s) PO TID 201402/05/2015 Inactive Fish Oil [place] 3-6-9 300 mg-1,000 mg capsule,delayed release RxNorm: 1 Capsule(s) PO BID 01/30/2015 08/10/2016 Inactive diazepam 5 mg tablet RxNorm: 270567 1 Tablet(s) PO Q8 as needed 01/30/2015 04/30/2015 Inactive hydrocodone 10 mg-acetaminophen 325 mg tablet RxNorm: 948871 1 Tablet(s) PO Q6 as needed 01/19/2015 02/25/2015 Inactive sertraline 50 mg tablet RxNorm: 384576 1 Tablet(s) PO daily 04/30/2015 Inactive hydrocodone 10 mg-acetaminophen 325 mg tablet RxNorm: 923860 1 Tablet(s) PO Q6 as needed 12/12/2014 01/18/2015 Inactive hydrocodone 10 mg-acetaminophen 325 mg tablet RxNorm: 987363 1 Tablet(s) PO Q6 as needed 11/09/2014 12/11/2014 Inactive diazepam 5 mg tablet RxNorm: 621612 1 Tablet(s) PO Q8 as needed 11/01/2014 01/29/2015 Inactive omeprazole 40 mg capsule,delayed release RxNorm: 586934 1 Capsule(s) PO daily 10/02/2014 04/30/2015 Inactive [SAVINGS FOR NON-COVERED DRUGS -- BIN:[id number], PCN: ASPROD1, Group: XXXXX, ID# [id number], Questions: . THIS IS NOT INSURANCE.] omeprazole 40 mg capsule,delayed release RxNorm: 095667 1 Capsule(s) PO daily 10/02/2014 10/01/2014 Inactive melatonin 3 mg tablet RxNorm: 995231 1 Tablet(s) PO QHS No Start Date Active Vitamin D3 oral RxNorm : 2418 oral No Start Date Active diclofenac sodium 75 mg tablet,delayed release RxNorm: 452731 2 Tablet(s) PO daily No Start Date 04/30/2015 Inactive diazepam 5 mg tablet RxNorm: 105363 1 Tablet(s) PO TID No Start Date 10/31/2014 Inactive Multi Vitamin oral RxNorm: oral No Start Date 03/08/2017 Inactive Flonase nasal RxNorm: 24607 nasal No Start Date 03/08/2017 Inactive gabapentin 100 mg tablet RxNorm: 044726 1 Tablet(s) PO TID No Start Date 02/06/2015 Inactive hydrocodone 10 mg-acetaminophen 325 mg tablet RxNorm: 533301 1 Tablet(s) PO QID No Start Date 11/08/2014 Inactive Zithromax Z-Myles 250 mg tablet RxNorm: 101025 1 Tablet(s) PO UD No Start Date 06/24/2017 Inactive clopidogrel 75 mg tablet RxNorm: 816548 1 Tablet(s) PO daily No Start Date 09/03/2016 Inactive atorvastatin 40 mg tablet RxNorm: 775463 1 Tablet(s) PO daily No Start Date 09/20/2017 Inactive sertraline 50 mg tablet RxNorm: 171415 1 Tablet(s) PO daily No Start Date [...] Observation Code Item Item Code Result Date Sed Rate Ord21 ESR 2 mm/hr 11/04/2017 C-Reactive Protein Qnt Crqnt CRP 0.1 mg/dl 11/04/2017 Tsh Ord6 TSH (3rd IS) 1.13 uIU/mL 08/28/2017 Lipid Ord30 CHOL 152 mg/dL 08/28/2017 Lipid Ord30 HDL 53.0 mg/dl 08/28/2017 Lipid Ord30 TRIG 102 mg/dL 08/28/2017 Lipid Ord30 LDL 79 mg/dL 08/28/2017 Lipid Ord30 C/HDL 2.9 Ratio 08/28/2017 Cbc With Differential Ord2 WBC 7.49 K/ul 08/28/2017 Cbc With Differential Ord2 RBC 4.04 M/ul 08/28/2017 Cbc With Differential Ord2 HGB 12.5 g/dl 08/28/2017 Cbc With Differential Ord2 Neut% 62.3 % 08/28/2017 Cbc With Differential Ord2 HCT 37.8 % 08/28/2017 Cbc With Differential Ord2 Lymph% 30.4 % 08/28/2017 Cbc With Differential Ord2 MCV 93.6 fl 08/28/2017 Cbc With Differential Ord2 Winn% 5.9 % 08/28/2017 Cbc With Differential Ord2 MCH 30.9 pg 08/28/2017 Cbc With Differential Ord2 MCHC 33.1 pg 08/28/2017 Cbc With Differential Ord2 Eos% 0.9 % 08/28/2017 Cbc With Differential Ord2 PLT 190 K/ul 08/28/2017 Cbc With Differential Ord2 Baso% 0.5 % 08/28/2017 Cbc With Differential Ord2 RDW 15.4 % 08/28/2017 Cbc With Differential Ord2 Neut ABS# 4.66 K/ul 08/28/2017 Cbc With Differential Ord2 Lymph ABS# 2.28 K/ul 08/28/2017 Cbc With Differential Ord2 Winn ABS# 0.4 K/ul 08/28/2017 Cbc With Differential Ord2 Eos ABS# 0.1 K/ul 08/28/2017 Cbc With Differential Ord2 Baso ABS# 0.0 K/ul 08/28/2017 Comp Metabolic Kza944 NA 143 mEq/L 08/28/2017 Comp Metabolic Ddw436 K 4.2 mEq/L 08/28/2017 Comp Metabolic Bpo916 CL 108 mEq/L 08/28/2017 Comp Metabolic Yws957 CO2 28.0 mEq/L 08/28/2017 Comp Metabolic Ocy927 ANION GAP 11 08/28/2017 Comp Metabolic Oeg079 GLUCOSE 89 mg/dL 08/28/2017 Comp Metabolic Sul738 Creat 0.8 mg/dL 08/28/2017 Comp Metabolic Qfa019 eGFR 78 ml/min/1.73m2 08/28/2017 Comp Metabolic Mft808 BUN 19 mg/dL 08/28/2017 Comp Metabolic Vje347 B/C Ratio 24.4 Ratio 08/28/2017 Comp Metabolic Rqt825 CALCIUM 8.4 mg/dL 08/28/2017 Comp Metabolic Tgv725 ALK PHOS 52 U/L 08/28/2017 Comp Metabolic Cwv200 AST(SGOT) 20 U/L 08/28/2017 Comp Metabolic Vfy828 ALT(SGPT) 14 U/L 08/28/2017 Comp Metabolic Iss461 BILI T 0.5 mg/dL 08/28/2017 Comp Metabolic Yyr050 ALBUMIN 4.0 g/dL 08/28/2017 Comp Metabolic Sgc574 TPRO 5.9 g/dL 08/28/2017 Comp Metabolic Ggf573 GLOB 1.9 g/dL 08/28/2017 Comp Metabolic Hdv750 A/G Ratio 2.1 Ratio 08/28/2017 Comp Metabolic Khr572 Osmo 287 mOsmo 08/28/2017 Comp Metabolic Jtd268 NA 141 mEq/L 03/09/2017 Comp Metabolic Bpf163 K 3.8 mEq/L 03/09/2017 Comp Metabolic Dxb701 CL 105 mEq/L 03/09/2017 Comp Metabolic Yrf594 CO2 29.0 mEq/L 03/09/2017 Comp Metabolic Wbm846 ANION GAP 11 03/09/2017 Comp Metabolic Mjv765 GLUCOSE 98 mg/dL 03/09/2017 Comp Metabolic Cfv580 Creat 0.7 mg/dL 03/09/2017 Comp Metabolic Fkr982 eGFR 93 ml/min/1.73m2 03/09/2017 Comp Metabolic Jlk954 BUN 11 mg/dL 03/09/2017 Comp Metabolic Qcz896 B/C Ratio 16.4 Ratio 03/09/2017 Comp Metabolic Hns172 CALCIUM 9.5 mg/dL 03/09/2017 Comp Metabolic Wrf675 ALK PHOS 90 U/L 03/09/2017 Comp Metabolic Oio695 AST(SGOT) 21 U/L 03/09/2017 Comp Metabolic Soj044 ALT(SGPT) 15 U/L 03/09/2017 Comp Metabolic Ztr093 BILI T 0.6 mg/dL 03/09/2017 Comp Metabolic Scw620 ALBUMIN 4.5 g/dL 03/09/2017 Comp Metabolic Htg460 TPRO 6.4 g/dL 03/09/2017 Comp Metabolic Ugv547 GLOB 1.9 g/dL 03/09/2017 Comp Metabolic Dek120 A/G Ratio 2.3 Ratio 03/09/2017 Comp Metabolic Clj012 Osmo 281 mOsmo 03/09/2017 %Hba1C Scf531 % HbA1c 15167-3 4.9 % 03/09/2017 %Hba1C Uje831 Gluc Ave 94 mg/dL 03/09/2017 Tsh Ord6 hTSH II 0.87 uIU/mL 03/09/2017 Cbc With Differential Ord2 WBC 6.06 K/ul [...] 31.7 pg 03/09/2017 Cbc With Differential Ord2 Winn% 6.1 % 03/09/2017 Cbc With Differential Ord2 [...] 1.78 K/ul 03/09/2017 Cbc With Differential Ord2 Winn ABS# 0.4 K/ul 03/09/2017 Cbc With Differential Ord2 Eos ABS# 0.1 K/ul 03/09/2017 Cbc With Differential Ord2 Baso ABS# 0.0 K/ul 03/09/2017 Cbc With Differential Ord2 WBC 6.16 K/ul 09/03/2016 Cbc With Differential Ord2 RBC 4.32 M/ul 09/03/2016 Cbc With Differential Ord2 HGB 13.1 g/dl 09/03/2016 Cbc With Differential Ord2 HCT 38.8 % 09/03/2016 Cbc With Differential Ord2 Neut% 66.8 % 09/03/2016 Cbc With Differential Ord2 MCV 89.8 fl 09/03/2016 Cbc With Differential Ord2 Lymph% 24.8 % 09/03/2016 Cbc With Differential Ord2 Winn% 6.5 % 09/03/2016 Cbc With Differential Ord2 [...] 1.53 K/ul 09/03/2016 Cbc With Differential Ord2 Winn ABS# 0.4 K/ul 09/03/2016 Cbc With Differential Ord2 Eos ABS# 0.1 K/ul 09/03/2016 Cbc With Differential Ord2 Baso ABS# 0.0 K/ul 09/03/2016 Comp Metabolic Euc519 NA 142 mEq/L 09/03/2016 Comp Metabolic Fcp882 K 3.9 mEq/L 09/03/2016 Comp Metabolic Utb248 CL 107 mEq/L 09/03/2016 Comp Metabolic Jxs555 CO2 26.0 mEq/L 09/03/2016 Comp Metabolic Bcs576 ANION GAP 13 09/03/2016 Comp Metabolic Sve695 GLUCOSE 107 mg/dL 09/03/2016 Comp Metabolic Anj331 Creat 0.7 mg/dL 09/03/2016 Comp Metabolic Zwk455 eGFR 85 ml/min/1.73m2 09/03/2016 Comp Metabolic Sps107 BUN 16 mg/dL 09/03/2016 Comp Metabolic Luo117 B/C Ratio 21.9 Ratio 09/03/2016 Comp Metabolic Dvi629 CALCIUM 8.8 mg/dL 09/03/2016 Comp Metabolic Igy922 ALK PHOS 51 U/L 09/03/2016 Comp Metabolic Vgm439 AST(SGOT) 24 U/L 09/03/2016 Comp Metabolic Izm276 ALT(SGPT) 20 U/L 09/03/2016 Comp Metabolic Syb223 BILI T 0.7 mg/dL 09/03/2016 Comp Metabolic Oev786 ALBUMIN 4.1 g/dL 09/03/2016 Comp Metabolic Mgu084 TPRO 6.1 g/dL 09/03/2016 Comp Metabolic Rje830 GLOB 2.0 g/dL 09/03/2016 Comp Metabolic Onx308 A/G Ratio 2.1 Ratio 09/03/2016 Comp Metabolic Uev873 Osmo 285 mOsmo 09/03/2016 Lipid Ord30 CHOL 118 mg/dL 09/03/2016 [...] Ord15 CALCIUM 9.1 mg/dL 12/21/2015 Comp Metabolic Rnd114 NA 138 mEq/L 07/06/2015 Comp Metabolic Ojn390 K 3.9 mEq/L 07/06/2015 Comp Metabolic Nef069 CL 103 mEq/L 07/06/2015 Comp Metabolic Nyo979 CO2 28.0 mEq/L 07/06/2015 Comp Metabolic Szt268 ANION GAP 11 07/06/2015 Comp Metabolic Qez663 GLUCOSE 114 mg/dL 07/06/2015 Comp Metabolic Lgi437 Creat 0.7 mg/dL 07/06/2015 Comp Metabolic Cdy023 eGFR 97 ml/min/1.73m2 07/06/2015 Comp Metabolic Bpc032 BUN 11 mg/dL 07/06/2015 Comp Metabolic Mvl371 B/C Ratio 16.9 Ratio 07/06/2015 Comp Metabolic Gpd868 CALCIUM 9.1 mg/dL 07/06/2015 Comp Metabolic Zsx449 ALK PHOS 57 U/L 07/06/2015 Comp Metabolic Ofc161 AST(SGOT) 26 U/L 07/06/2015 Comp Metabolic Qad322 ALT(SGPT) 17 U/L 07/06/2015 Comp Metabolic Boa349 BILI T 0.6 mg/dL 07/06/2015 Comp Metabolic Qon525 ALBUMIN 4.6 g/dL 07/06/2015 Comp Metabolic Mnv752 TPRO 6.7 g/dL 07/06/2015 Comp Metabolic Zyn221 GLOB 2.1 g/dL 07/06/2015 Comp Metabolic Qli740 A/G Ratio 2.2 Ratio 07/06/2015 Comp Metabolic Qqe958 Osmo 276 mOsmo 07/06/2015 Lipid Ord30 CHOL 228 mg/dL 07/06/2015 Lipid Ord30 HDL 48.0 mg/dl 07/06/2015 Lipid Ord30 TRIG 176 mg/dL 07/06/2015 Lipid Ord30 LDL 145 mg/dL 07/06/2015 Lipid Ord30 C/HDL 4.8 Ratio 07/06/2015 Comp Metabolic Gng392 NA 141 mEq/L 05/01/2015 Comp Metabolic Ild684 K 4.0 mEq/L 05/01/2015 Comp Metabolic Wwx789 CL 106 mEq/L 05/01/2015 Comp Metabolic Tov877 CO2 26.0 mEq/L 05/01/2015 Comp Metabolic Ufn578 ANION GAP 13 05/01/2015 Comp Metabolic Dhn192 GLUCOSE 124 mg/dL 05/01/2015 Comp Metabolic Uoe114 Creat 0.8 mg/dL 05/01/2015 Comp Metabolic Zvu848 eGFR 79 ml/min/1.73m2 05/01/2015 Comp Metabolic Ahe774 BUN 13 mg/dL 05/01/2015 Comp Metabolic Uoh934 B/C Ratio 16.7 Ratio 05/01/2015 Comp Metabolic Gpq318 CALCIUM 9.3 mg/dL 05/01/2015 Comp Metabolic Ijv034 ALK PHOS 54 U/L 05/01/2015 Comp Metabolic Ehk103 AST(SGOT) 21 U/L 05/01/2015 Comp Metabolic Hyu048 ALT(SGPT) 14 U/L 05/01/2015 Comp Metabolic Tig756 BILI T 0.5 mg/dL 05/01/2015 Comp Metabolic Vdw848 ALBUMIN 4.5 g/dL 05/01/2015 Comp Metabolic Kwv011 TPRO 6.4 g/dL 05/01/2015 Comp Metabolic Euc704 GLOB 1.9 g/dL 05/01/2015 Comp Metabolic Bjy310 A/G Ratio 2.4 Ratio 05/01/2015 Comp Metabolic Ezc994 Osmo 283 mOsmo 05/01/2015 Cbc With Differential [...] With Differential Ord2 RDW 16.8 % 05/01/2015 Tsh Ord6 hTSH II 0.74 uIU/mL 05/01/2015 %Hba1C Wrw951 % HbA1c 19426-1 5.4 % 01/29/2015 %Hba1C Kiy244 Gluc Ave 108 mg/dL 01/29/2015 Cbc With [...] 01/26/2015 Lipid Ord30 C/HDL 6.0 Ratio 01/26/2015 Comp Metabolic Tnb073 NA 137 mEq/L 01/26/2015 Comp Metabolic Rny456 K 4.0 mEq/L 01/26/2015 Comp Metabolic Leo254 CL 104 mEq/L 01/26/2015 Comp Metabolic Pmb874 CO2 27.0 mEq/L 01/26/2015 Comp Metabolic Wsr556 ANION GAP 10 01/26/2015 Comp Metabolic Ulm392 GLUCOSE 131 mg/dL 01/26/2015 Comp Metabolic Fnf561 Creat 0.8 mg/dL 01/26/2015 Comp Metabolic Rkm813 eGFR 77 ml/min/1.73m2 01/26/2015 Comp Metabolic Rva678 BUN 16 mg/dL 01/26/2015 Comp Metabolic Pam553 B/C Ratio 20.0 Ratio 01/26/2015 Comp Metabolic Vwy208 CALCIUM 9.1 mg/dL 01/26/2015 Comp Metabolic Gou039 ALK PHOS 66 U/L 01/26/2015 Comp Metabolic Ptj786 AST(SGOT) 24 U/L 01/26/2015 Comp Metabolic Ylo177 ALT(SGPT) 20 U/L 01/26/2015 Comp Metabolic Yav068 BILI T 0.4 mg/dL 01/26/2015 Comp Metabolic Goi246 ALBUMIN 4.2 g/dL 01/26/2015 Comp Metabolic Zav925 TPRO 6.4 g/dL 01/26/2015 Comp Metabolic Dmr028 GLOB 2.2 g/dL 01/26/2015 Comp Metabolic Pwe274 A/G Ratio 1.9 Ratio 01/26/2015 Comp Metabolic Amr103 Osmo 277 mOsmo 01/26/2015 B12 Ybv358 B12 669.00 pg/ml 01/26/2015 Review of Systems [...] NO PRSV 4 BLANCA 3 YRS+ CPT-4: 66028 02/22/2018 ADMIN INFLUENZA VIRUS VAC CPT-4: G0008 03/18/2017 FLU VACC PRSV FREE INC ANTIG CPT-4: 75132 03/18/2017 INITIAL PREVENTIVE EXAM CPT-4: G0402 07/06/2015 IIV4 FLU VACC NO PRESERV ID Formatting Model/CDA Sections, Assigned to SNOMED CT: [id number] CPT-4: 31005Vselsub 03/26/2015 IMMUNIZATION ADMIN CPT -4: 47540 03/26/2015 Vital Signs Date Vital 02/22/2018 Blood Pressure 1: 140/70 Code : 8480-6 BMI: 26.3 Code : 97443-4 Heart Rate 1 : 60 bpm Height: 5'1" SpO2: 97% Weight: 139 lbs 12/29/2017 Blood Pressure 1: 110/58 Code : 8480-6 BMI: 23.8 Code : 47943-2 Heart Rate 1 : 56 bpm Height: 5'1" SpO2: 98% Weight: 126 lbs 10/28/2017 Blood Pressure 1: 96/68 Code : 8480-6 BMI: 21.7 Code : 18316-7 Heart Rate 1 : 68 bpm Height: 5'1" SpO2: 98% Weight: 115 lbs 09/23/2017 Blood Pressure 1: 134/72 Code : 8480-6 BMI: 22.5 Code : 41912-5 Heart Rate 1 : 72 bpm Height: 5'1" SpO2: 97% Weight: 119 lbs 03/18/2017 Blood Pressure 1: 140/72 Code : 8480-6 BMI: 21.5 Code : 17864-3 Heart Rate 1 : 64 bpm Height: 5'1" SpO2: 96% Weight: 114 lbs 03/09/2017 Blood Pressure 1: 120/72 Code : 8480-6 BMI: 21.5 Code : 90634-1 Heart Rate 1 : 75 bpm Height: 5'1" SpO2: 97% Weight: 114 lbs 12/09/2016 Blood Pressure 1: 130/76 Code : 8480-6 BMI: 23.8 Code : 96898-0 Heart Rate 1 : 68 bpm Height: 5'1" SpO2: 98% Weight: 126 lbs 09/08/2016 Blood Pressure 1: 162/80 Code : 8480-6 Blood Pressure 2: 145/90 Code: 8480-6 BMI: 24.7 Code: 96735-5 Heart Rate 1: 77 bpm Height: 5'1" SpO2: 97% Weight: 130 lbs 8 oz 08/11/2016 Blood Pressure 1: 130/80 Code : 8480-6 BMI: 25.9 Code : 61186-1 Heart Rate 1 : 62 bpm Height: 5'1" SpO2: 97% Weight: 137 lbs 07/03/2016 Blood Pressure 1: 134/74 Code : 8480-6 BMI: 26.8 Code : 04464-9 Heart Rate 1 : 74 bpm Height: 5'1" SpO2: 97% Weight: 142 lbs 06/19/2016 Blood Pressure 1: 118/66 Code : 8480-6 Heart Rate 1: 72 bpm SpO2: 96% Weight: 142 lbs 02/04/2016 Blood Pressure 1: 130/80 Code : 8480-6 BMI: 27.2 Code : 04822-4 Heart Rate 1 : 76 bpm Height: 5'1" SpO2: 96% Weight: 144 lbs 01/07/2016 Blood Pressure 1: 136/64 Code : 8480-6 BMI: 27.6 Code : 17193-2 Heart Rate 1 : 73 bpm Height: 5'1" SpO2: 987% Weight: 146 lbs 12/17/2015 Blood Pressure 1: 128/86 Code : 8480-6 BMI: 27.0 Code : 23094-6 Heart Rate 1 : 59 bpm Height: 5'1" SpO2: 96% Weight: 143 lbs 10/16/2015 Blood Pressure 1: 122/78 Code : 8480-6 BMI: 25.7 Code : 66231-0 Heart Rate 1 : 71 bpm Height: 5'1" SpO2: 96% Weight: 136 lbs 08/16/2015 Blood Pressure 1: 138/88 Code : 8480-6 BMI: 27.0 Code : 15793-6 Heart Rate 1 : 75 bpm Height: 5'1" SpO2: 98% Weight: 143 lbs 07/06/2015 Blood Pressure 1: 120/72 Code : 8480-6 BMI: 26.5 Code : 62214-2 Heart Rate 1 : 72 bpm Height: 5'1" SpO2: 96% Weight: 140 lbs 06/07/2015 Blood Pressure 1: 152/86 Code : 8480-6 BMI: 26.1 Code : 83487-0 Heart Rate 1 : 88 bpm Height: 5'1" SpO2: 97% Weight: 138 lbs 05/01/2015 Blood Pressure 1: 120/80 Code : 8480-6 BMI: 27.0 Code : 43312-1 Heart Rate 1 : 82 bpm Height: 5'1" SpO2: 98% Temperature: 36.7 (C) / 98.0 (F) Weight: 143 lbs 03/26/2015 Blood Pressure 1: 140/80 Code : 8480-6 BMI: 28.0 Code : 46653-4 Heart Rate 1 : 69 bpm Height: 5'1" SpO2: 96% Weight: 148 lbs 03/13/2015 Blood Pressure 1: 128/70 Code : 8480-6 BMI: 28.2 Code : 38723-1 Heart Rate 1 : 76 bpm Height: 5'1" Weight: 149 lbs 01/30/2015 Blood Pressure 1: 142/68 Code : 8480-6 BMI: 28.7 Code : 20967-0 Heart Rate 1 : 86 bpm Height: 5'1" SpO2: 96% Weight: 152 lbs 10/16/2014 Blood Pressure 1: 160/88 Code : 8480-6 BMI: 28.2 Code : 43523-0 Heart Rate 1 : 66 bpm Height: [...] data Encounters Encounter Performer Location Codes Date 32177 EST. PATIENT, LEVEL III Diagnosis: Other insomnia[ICD10: G47.09] Diagnosis: Dementia in other diseases classified elsewhere without behavioral disturbance[ICD10: F02.80] Diagnosis: Encounter for immunization[ICD10: Z23] [facility] CPT-4: 49309 02/22/2018 31985 EST. PATIENT, LEVEL IV Diagnosis: Dementia in other diseases classified elsewhere without behavioral disturbance[ICD10: F02.80] Diagnosis: Major depressive disorder, recurrent, mild[ICD10: F33.0] Diagnosis: Other allergic rhinitis[ICD10: J30.89] Angelica Ochoa MD, [facility] CPT-4: 18978 12/29/2017 ([id number]) 24706 EST. PATIENT, LEVEL IV Diagnosis: Dementia in other diseases classified elsewhere without behavioral disturbance[ICD10: F02.80] Diagnosis: Major depressive disorder, recurrent, mild[ICD10: F33.0] Diagnosis: Allergy to other foods[ICD10: Z91.018] Marylu Ochoa MD, [facility] CPT-4: 65192 10/28/2017 25579 EST. 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 PATIENT, LEVEL IV Diagnosis: Essential (primary) hypertension[ICD10: I10] Diagnosis: Major depressive disorder, recurrent, moderate[ICD10: F33.1] Diagnosis: Underweight[ICD10: R63.6] Diagnosis: Localization-related (focal) (partial) symptomatic epilepsy and epileptic syndromes with simple partial seizures, not intractable, without status epilepticus[ICD10: G40.109] Marylu Ochoa MD, [facility] CPT-4: 75965 03/09/2017 [id number]) 28101 EST. PATIENT, LEVEL IV Diagnosis: Mixed hyperlipidemia[ICD10: E78.2] Diagnosis: Chronic pain syndrome[ICD10: G89.4] Diagnosis: Major depressive disorder, recurrent, mild[ICD10: F33.0] Marylu Ochoa MD, [facility] CPT-4: 26833 12/09/2016 ([id number]) 84155 EST. PATIENT, LEVEL IV Diagnosis: Essential (primary) hypertension[ICD10: I10] Diagnosis: Low back pain[ICD10: M54.5] Diagnosis: Personal history of transient ischemic attack (TIA), and cerebral infarction without residual deficits[ICD10: Z86.73] Diagnosis: Major depressive disorder, recurrent, moderate[ICD10: F33.1] Diagnosis: Other sleep apnea[ICD10: G47.39] Marylu Ochoa MD, [facility] CPT-4: 78459 09/08/2016 ([id number]) 89381 EST. 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 PATIENT, LEVEL III Diagnosis: Chronic pain syndrome[ICD10: G89.4] Diagnosis: Low back pain[ICD10: M54.5] Diagnosis: Major depressive disorder, recurrent, mild[ICD10: F33.0] Diagnosis: Mild cognitive impairment, so stated[ICD10: G31.84] Angelica Ochoa MD, [facility] CPT-4: 01803 07/03/2016 ([id number]) 40965 EST. PATIENT, LEVEL III Diagnosis: Chronic pain syndrome[ICD10: G89.4] Donna Ochoa MD, [facility] CPT-4: 00113 06/19/2016 ([id number]) 53278 EST. PATIENT, LEVEL IV Diagnosis: Chronic pain syndrome[ICD10: G89.4] Diagnosis: Mild cognitive impairment, so stated[ICD10: G31.84] Donna Ochoa MD, [facility] CPT-4: 67685 02/04/2016 ([id number]) 12556 EST. PATIENT, LEVEL IV Diagnosis: Chronic pain syndrome[ICD10: G89.4] Diagnosis: Mild cognitive impairment, so stated[ICD10: G31.84] Diagnosis: Major depressive disorder, recurrent, mild[ICD10: F33.0] Donna Ochoa MD , [facility] CPT-4: 92040 01/07/2016 ([id number]) 08981 EST. PATIENT, LEVEL IV Diagnosis: Chronic pain syndrome[ICD10: G89.4] Diagnosis: Headache[ICD10: R51] Diagnosis: Major depressive disorder, recurrent, mild[ICD10: F33.0] Diagnosis: Mixed hyperlipidemia[ICD10: E78.2] Donna Ochoa MD, [facility] CPT-4: 39417 12/17/2015 ([id number]) 82780 EST. PATIENT, LEVEL III Diagnosis: Chronic pain syndrome[ICD10: G89.4] Diagnosis: Major depressive disorder, recurrent, mild[ICD10: F33.0] Donna Ochoa MD , [facility] CPT-4: 75891 10/16/2015 ([id number]) 09206 EST. PATIENT, LEVEL III Diagnosis: Low back pain[ICD10: M54.5] Donna Ochoa MD, [facility] CPT-4: 46963 08/16/2015 ([id number]) 20313 EST. 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 PATIENT, LEVEL IV Diagnosis: Major depressive disorder, recurrent, mild[ICD10: F33.0] Diagnosis: Chronic pain syndrome[ICD10: G89.4] Diagnosis: Other fatigue[ICD10: R53.83] Donna Ochoa MD, [facility] CPT-4: 18207 05/01/2015 ([id number]) 35130 EST. PATIENT, LEVEL II Diagnosis: Plantar fascial fibromatosis[ICD10: M72.2] Donna Ochoa MD, [facility] CPT-4: 30641 03/26/2015 ([id number]) 50786 EST. PATIENT, LEVEL III Diagnosis: Plantar fascial fibromatosis[ICD10: M72.2] [facility] CPT-4: 10362 03/13/2015 ([id number]) 52845 EST. PATIENT, LEVEL III Diagnosis: Hyperlipidemia[ICD9: 272.4] Diagnosis: ALLERGIC RHINITIS[ICD9: 477.9] Diagnosis: Chronic pain syndrome[ICD9: 338.4] [facility] CPT-4: 77133 01/30/2015 ([id number]) OFFICE VISIT, NEW - LEVEL 4 Diagnosis: ESOPHAGEAL REFLUX[ICD9: 530.81] Diagnosis: Peripheral neuropathy[ICD9: 356.9] Diagnosis: Chronic pain syndrome[ICD9: 338.4] Diagnosis: OSTEOARTH NOS-UNSPEC[ICD9: 715.90] Diagnosis: DEPRESSIVE DISORDER NEC[ICD9: 311] Marylu Ochoa MD, [facility] CPT-4: 79993 10/16/2014 Plan of Care Planned Activity Notes Codes Status Date Appointment: Angelica Cuba WPtel: [address] [place], [place] [id number] (15 min) Moderate 03/24/2018 Visit Plan: Insomnia [...] of treatment. 02/22/2018 Appointment: Angelica Cuba WPtel: [facility] (15 min) Moderate 02/22/2018 Appointment: Angelica Cuba WPtel: [facility]5 [facility] (15 min) Moderate 02/22/2018 Patient Education: Patient Medication Summary Completed 02/22/2018 Appointment: Angel[facility] [place] [facility]Ptel[phone] (15 min) Moderate 02/18/2018 Visit Plan: Dementia [...] Completed 12/29/2017 Appointment: Angel[facility] [place] [facility]Ptel: [facility] (15 min) Moderate 12/23/2017 Patient Education: [...] adalgisa. 10/28/2017 Appointment: [phone] ([facility] min) Moderate 10/28/2017 Patient [...] make a follow up appointment with her metal buffer - The patient has been counseled to [...] concerns. 09/23/2017 Appointment: Angel[facility] [place] [facility]Ptel[phone] (30 min) Complex 09/23/2017 Patient Education: Patient Medication Summary Completed 09/23/2017 Appointment: Marylu Ochoa WPtel: [address] [facility] [place] (15 min) Moderate 08/26/2017 Appointment: Angelica Cuba WPtel: [address] [facility] (30 min) Complex 06/30/2017 Referral: External, Ordering Provider Referral Initiated 05/27/2017 Care Plan: Referral Order SNOMED-CT : [id number] Pending 04/20/2017 Visit Plan: Anxiety - the [...] make a follow up appointment with her metal buffer - The patient has been counseled to [...] home. 03/09/2017 Appointment: [phone] (30 min) Complex 03/09/2017 Patient Education: Patient Medication Summary Completed 03/09/2017 Appointment: Donna Walden [facility]Ptel[phone] [place] (30 min) Complex 03/06/2017 Appointment: [phone] (15 min) Moderate 01/08/2017 Visit Plan: Hyperlipidemia [...] Completed 12/09/2016 Appointment: [phone] (15 min) Moderate 11/11/2016 Appointment: Angelica Cuba WPtel[phone] (30 min) Complex 10/09/2016 Visit Plan: [...] supply of Aricept through [facility], refill [facility] Suspected sleep disordered breathing with [...] supply of Aricept through [facility], refill [facility] 09/08/2016 Appointment: Marylu Ochoa WPtel: [phone] [facility] (15 min) Moderate 09/08/2016 Patient Education: Patient Medication Summary Completed 09/08/2016 Appointment: Angelica Cuba WPtel: [phone] [facility] (30 min) Complex 08/19/2016 Visit Plan: Hyperlipidemia [...] plavix 08/11/2016 Appointment: Marylu Ochoa WPtel: [phone] [facility] (15 min) Moderate 08/11/2016 Patient [...] or concerns. 07/03/2016 Appointment: Angelica Cuba WPtel: [facility] (30 min) Complex 07/03/2016 Patient Education: Patient Medication Summary Completed 07/03/2016 Care Plan: Referral Order SNOMED-CT : [id number] Pending 07/03/2016 Visit Plan: Chronic Pain Syndrome - pt has chronic pain - has been maintained on current medications, has not sought out other medications , only uses PRN pain medications as directed, and understands the consequences of over-medication. 06/19/2016 Appointment: Donna Walden WPtel: [facility] [place] [address] (30 min) Complex 06/19/2016 Patient Education: Patient Medication Summary Completed 06/19/2016 Appointment: Donna Walden WPtel: [phone] [place] [address] (30 min) Complex 06/05/2016 Visit Plan: Chronic Pain Syndrome - pt has chronic pain - has been maintained on current medications, has not sought out other medications , only uses PRN pain medications as directed, and understands the consequences of over-medication. Mild cognitive impairment-discussed with Dr Ochoa- [place] starter pack 02/04/2016 Appointment: Donna Walden WPtel: [phone] [place] (30 min) Complex 02/04/2016 Patient Education: Patient Medication Summary Completed 02/04/2016 Appointment: Donna Walden WPtel: [address] [place], [place] [phone] [place] (30 min) Complex 01/14/2016 Visit Plan: [...] testing. 01/07/2016 Appointment: Donna Walden WPtel: [phone] [facility] [place] [address] (15 min) Moderate 01/07/2016 Patient Education: Patient Medication Summary Completed 01/07/2016 Visit Plan: Chronic Pain Syndrome - pt has chronic pain - has been maintained on current medications, has not sought out other medications , only uses PRN pain medications as directed, and understands the consequences of over-medication. Headaches-memory loss-schedule MRI brain Hyperlipidemia- check fasting labs [id number] change in medications at this time 12/17/2015 Patient Education: Patient Medication Summary Completed 12/17/2015 Appointment: Donna Walden WPtel: [facility]1 [address] (30 min) Complex 12/13/2015 Visit Plan: [...] current medications. 10/16/2015 Appointment: Donna Walden WPtel: [facility]4 [phone] (30 min) Complex 10/16/2015 Patient Education: Patient [...] pain symptoms. 06/07/2015 Appointment: Marylu Ochoa WPtel: [address] [place] [address] (15 min) Moderate 06/07/2015 Patient Education: Patient [...] shoes - discussed inserts and referral to any commodity sales deliverer-patient wants to wait but will let us [...] pain symptoms. 10/16/2014 Appointment: Marylu Ochoa WPtel: [facility] [place] ([place] New Patient 10/16/2014 [...] about referring her to Dr. Dexter grullon [place] (neurologist) . Anxiety - the patient has [...] make a follow up appointment with her metal buffer - The patient has been counseled to [...] 90 day supply of Aricept through [facility] Add 50 mg Losartan daily for hypertension [...] 90 day supply of Aricept through [facility] Add 50 mg Losartan daily for hypertension [...] of Aricept through [facility], refill [facility] mammogram order - given to patient - she is to schedule in [place] . Chronic Pain Syndrome - pt has [...] Headaches-memory loss-schedule MRI brain Hyperlipidemia-check fasting labs [id number] change in medications at this time . [...] change in current medications. Fatigue-check labs . Welcome to Medicare Exam - today [...] supportive shoes -discussed inserts and referral to any commodity sales deliverer-patient wants to wait but will let us [...] make a follow up appointment with her metal buffer - The patient has been counseled to [...]
[2018-09-20 06:01] LABS: BILIRUBIN,URINE NEGATIVE (NEGATIVE); CLARITY,URINE CLEAR; COLOR,URINE YELLOW; GLUCOSE, URINE (UA) NEGATIVE (NEGATIVE); KETONES,URINE 1+ (NEGATIVE); LEUKOCYTE ESTERASE ,URINE NEGATIVE (NEGATIVE); NITRITE,URINE NEGATIVE (NEGATIVE); PH,URINE 5 (5-9); PROTEIN,URINE 1+ (NEGATIVE); UROBILINOGEN,URINE NORMAL (NORMAL)
--- OUTSIDE RECORDS SUMMARY | 2018-09-20 06:02 | XMS REPORT | CCD ---
Author Author Marylu Ochoa Organization Marylu Ochoa MD, [facility] Address [address] [place] [address] Phone Care Team Providers Care Secretary Of State Name Role Phone PP Unavailable CCM Unavailable Summary Purpose Interface Exchange Insurance Providers Payer name Policy type / Coverage type Covered republican ID Effective Begin Date Effective End Date WPS Medicare Part B Medicare Part B [id number] 2015 Unknown [facility] Medicare Part B [id number] 2015 Unknown Family history Mother Diagnosis Age [...] Unknown Retired 10/16/[address]: 974695952 Never smoker 10/16/[address]: 413429637 Never drinks alcohol 10/16/2014 Allergies, Adverse Reactions, [...] hydrocodone 10 mg-acetaminophen 325 mg tablet RxNorm: 242559 1 Tablet(s) PO Q6 as needed may fill on 03-27-18 03/22/201808/2017 Active Aricept 10 mg tablet RxNorm: 062651 1 TABLET(S) PO DAILY 201707/12/2018 Active hydrocodone 10 mg-acetaminophen 325 mg tablet RxNorm: 351399 1 Tablet(s) PO Q6 as needed 02/26/2018 03/21/2018 Inactive diazepam 5 mg tablet RxNorm: 027534 1/2 Tablet(s) PO QHS as needed 02/22/2018 03/23/2018 Active hydrocodone 10 mg-acetaminophen 325 mg tablet RxNorm: 239271 1 Tablet(s) PO Q6 as needed 02/05/2018 02/25/2018 Inactive levetiracetam 500 mg tablet RxNorm: 546885 1 TABLET(S) PO BID 01/07/2018 04/06/2018 Active pt to finish out supply of liquid then start on tablets hydrocodone 10 mg-acetaminophen 325 mg tablet RxNorm: 190840 1 Tablet(s) PO Q6 as needed 12/29/2017 01/27/2018 Inactive hydrocodone 10 mg-acetaminophen 325 mg tablet RxNorm: 899877 1 Tablet(s) PO Q6 as needed 12/10/2017 12/28/2017 Inactive Zyrtec 10 mg tablet RxNorm: 2582182 1 Tablet(s) PO QAM for allergies 10/28/2017 05/25/2018 Active Zantac 75 mg tablet RxNorm: 757404 1 Tablet(s) PO BID 201702/24/2018 Inactive Aricept 10 mg tablet RxNorm: 268399 1 TABLET(S) PO DAILY 201702/23/2018 Inactive Cymbalta 30 mg capsule,delayed release RxNorm: 843363 1 Capsule(s) PO daily 10/22/2017 05/19/2018 Active hydrocodone 10 mg-acetaminophen 325 mg tablet RxNorm: 743315 1 Tablet(s) PO Q6 as needed 10/20/2017 11/18/2017 Inactive Voltaren 1 % topical gel RxNorm: 683332 4 Gram(s) TOP TID as needed for pain as needed 09/23/2017 09/17/2018 Active levetiracetam 500 mg tablet RxNorm: 586631 1 TABLET(S) PO BID 09/21/2017 10/20/2017 Inactive pt to finish out supply of liquid then start on tablets hydrocodone 10 mg-acetaminophen 325 mg tablet RxNorm: 074312 1 Tablet(s) PO Q6 as needed 08/27/2017 09/25/2017 Inactive Aricept 10 mg tablet RxNorm: 952266 1 Tablet(s) PO daily 201709/16/2017 Inactive Aricept 10 mg tablet RxNorm: 903451 1 Tablet(s) PO daily 201708/17/2017 Inactive hydrocodone 10 mg-acetaminophen 325 mg tablet RxNorm: 392974 1 Tablet(s) PO Q6 as needed 07/28/2017 08/26/2017 Inactive Zithromax Z-Myles 250 mg tablet RxNorm: 563894 1 Tablet(s) PO UD 06/25/2017 09/20/2017 Inactive hydrocodone 10 mg-acetaminophen 325 mg tablet RxNorm: 997512 1 Tablet(s) PO Q6 as needed 06/17/2017 07/16/2017 Inactive Namenda XR 28 mg capsule sprinkle,extended release RxNorm: 270993 1 Capsule(s) PO daily 05/08/2017 05/02/2018 Active Aricept 10 mg tablet RxNorm: 474386 1 Tablet(s) PO daily 201608/05/2017 Inactive hydrocodone 10 mg-acetaminophen 325 mg tablet RxNorm: 872221 1 Tablet(s) PO Q6 as needed 05/05/2017 06/03/2017 Inactive hydrocodone 10 mg-acetaminophen 325 mg tablet RxNorm: 487023 1 Tablet(s) PO Q6 as needed 04/06/2017 05/04/2017 Inactive diazepam 2 mg tablet RxNorm: 135842 1/2 - 1 Tablet(s) PO BID as needed 03/18/2017 09/20/2017 Inactive Cymbalta 30 mg capsule,delayed release RxNorm: 481530 1 Capsule(s) PO daily 03/09/2017 10/04/2017 Inactive levetiracetam 500 mg tablet RxNorm: 617940 1 Tablet(s) PO BID 03/09/2017 08/05/2017 Inactive pt to finish out supply of liquid then start on tablets Aricept 5 mg tablet RxNorm: 721577 1 Tablet(s) PO daily 201605/07/2017 Inactive pantoprazole 40 mg tablet,delayed release RxNorm: 463559 1 Tablet(s) PO daily 03/09/2017 07/06/2017 Inactive hydrocodone 10 mg-acetaminophen 325 mg tablet RxNorm: 471201 1 Tablet(s) PO Q6 as needed 12/04/2016 03/08/2017 Inactive hydrocodone 10 mg-acetaminophen 325 mg tablet RxNorm: 144541 1 Tablet(s) PO Q6 as needed 11/06/2016 12/03/2016 Inactive hydrocodone 10 mg-acetaminophen 325 mg tablet RxNorm: 930654 1 Tablet(s) PO Q6 as needed 10/08/2016 11/05/2016 Inactive Voltaren 1 % topical gel RxNorm: 255945 4 Gram(s) TOP TID as needed for pain as needed 09/25/2016 09/19/2017 Inactive hydrocodone 10 mg-acetaminophen 325 mg tablet RxNorm: 806172 1 Tablet(s) PO Q6 as needed 09/09/2016 10/07/2016 Inactive Voltaren 1 % topical gel RxNorm: 090806 1 Application TOP TID 09/08/2016 09/24/2016 Inactive Aricept 5 mg tablet RxNorm: 415891 1 Tablet(s) PO daily 201612/06/2016 Inactive Cymbalta 30 mg capsule,delayed release RxNorm: 840981 1 Capsule(s) PO daily 09/08/2016 12/06/2016 Inactive losartan 50 mg tablet RxNorm: 359208 1 Tablet(s) PO daily 201610/07/2016 Inactive clopidogrel 75 mg tablet RxNorm: 760676 75 MG PO DAILY 201609/20/2017 Inactive hydrocodone 10 mg-acetaminophen 325 mg tablet RxNorm: 416098 1 Tablet(s) PO Q6 as needed 08/15/2016 09/08/2016 Inactive hydrocodone 10 mg-acetaminophen 325 mg tablet RxNorm: 086698 1 Tablet(s) PO Q6 as needed 07/18/2016 08/14/2016 Inactive Cymbalta 30 mg capsule,delayed release RxNorm: 439628 1 Capsule(s) PO daily 07/03/2016 09/07/2016 Inactive Aricept 5 mg tablet RxNorm: 116670 1 Tablet(s) PO daily 201608/01/2016 Inactive Namenda XR 28 mg capsule sprinkle,extended release RxNorm: 078245 1 Capsule(s) PO daily 07/03/2016 05/07/2017 Inactive diazepam 5 mg tablet RxNorm: 998821 Tablet(s) PO daily as needed TAKE 1/2 TO 1 TABLET BY MOUTH DAILY NEEDED FOR ANXIETY 06/25/2016 03/06/2017 Inactive hydrocodone 10 mg-acetaminophen 325 mg tablet RxNorm: 910595 1 Tablet(s) PO Q6 as needed 06/19/2016 07/17/2016 Inactive Namenda XR 28 mg capsule sprinkle,extended release RxNorm: 947664 1 Capsule(s) PO daily 06/19/2016 07/02/2016 Inactive gabapentin 100 mg capsule RxNorm: 784656 1 Capsule(s) PO TID 03/08/2017 Inactive hydrocodone 10 mg-acetaminophen 325 mg tablet RxNorm: 969758 1 Tablet(s) PO Q6 as needed 05/27/2016 06/18/2016 Inactive diazepam 5 mg tablet RxNorm: 955501 Tablet(s) TAKE 1/2 TO 1 TABLET BY MOUTH DAILY NEEDED FOR ANXIETY 05/15/20162016 Inactive hydrocodone 10 mg-acetaminophen 325 mg tablet RxNorm: 573858 1 Tablet(s) PO Q6 as needed 04/29/2016 05/26/2016 Inactive omeprazole 40 mg capsule,delayed release RxNorm: 037968 Capsule(s) 1 CAPSULE(S) PO DAILY 04/28/2016 03/08/2017 Inactive diazepam 5 mg tablet RxNorm: 190649 Tablet(s) TAKE 1/2 TO 1 TABLET BY MOUTH DAILY NEEDED FOR ANXIETY 04/14/20162015 Inactive hydrocodone 10 mg-acetaminophen 325 mg tablet RxNorm: 554188 1 Tablet(s) PO Q6 as needed 04/01/2016 04/28/2016 Inactive Namenda XR 28 mg capsule sprinkle,extended release RxNorm: 817873 1 Capsule(s) PO daily 03/13/2016 06/18/2016 Inactive Namenda XR 28 mg capsule sprinkle,extended release RxNorm: 580577 1 Capsule(s) PO daily 03/12/2016 03/12/2016 Inactive diazepam 5 mg tablet RxNorm: 777920 Tablet(s) TAKE 1/2 TO 1 TABLET BY MOUTH DAILY NEEDED FOR ANXIETY 02/25/20162015 Inactive Namenda XR 28 mg capsule sprinkle,extended release RxNorm: 268187 1 Capsule(s) PO daily 02/04/2016 03/11/2016 Inactive hydrocodone 10 mg-acetaminophen 325 mg tablet RxNorm: 066871 1 Tablet(s) PO Q6 as needed 02/04/2016 03/04/2016 Inactive omeprazole 40 mg capsule,delayed release RxNorm: 410648 1 CAPSULE(S) PO DAILY 01/23/2016 04/27/2016 Inactive [SAVINGS FOR NON-COVERED DRUGS -- BIN:[id number], PCN: ASPROD1, Group: XXXXX, ID# XXXXXXX, Questions: . THIS IS NOT INSURANCE.] sertraline 50 mg tablet RxNorm: 151880 TAKE 1 1/2 TABLET BY MOUTH ONCE DAILY 01/10/2016 03/08/2017 Inactive hydrocodone 10 mg-acetaminophen 325 mg tablet RxNorm: 568280 1 Tablet(s) PO Q6 as needed 01/07/2016 02/03/2016 Inactive diazepam 5 mg tablet RxNorm: 138132 Tablet(s) TAKE 1/2 TO 1 TABLET BY MOUTH DAILY NEEDED FOR ANXIETY 12/17/20152015 Inactive hydrocodone 10 mg-acetaminophen 325 mg tablet RxNorm: 541871 1 Tablet(s) PO Q6 as needed 12/10/2015 01/06/2016 Inactive gabapentin 100 mg capsule RxNorm: 254940 1 Capsule(s) PO TID 03/11/2016 Inactive gabapentin 100 mg capsule RxNorm: 081368 1 Capsule(s) PO TID 11/12/2015 Inactive hydrocodone 10 mg-acetaminophen 325 mg tablet RxNorm: 794249 1 Tablet(s) PO Q6 as needed 11/12/2015 12/09/2015 Inactive hydrocodone 10 mg-acetaminophen 325 mg tablet RxNorm: 603666 1 Tablet(s) PO Q6 as needed 10/16/2015 11/11/2015 Inactive hydrocodone 10 mg-acetaminophen 325 mg tablet RxNorm: 948776 1 Tablet(s) PO Q6 as needed 09/17/2015 10/15/2015 Inactive hydrocodone 10 mg-acetaminophen 325 mg tablet RxNorm: 694202 1 Tablet(s) PO Q6 as needed 08/16/2015 09/16/2015 Inactive diazepam 5 mg tablet RxNorm: 314854 Tablet(s) TAKE 1/2 TO 1 TABLET BY MOUTH DAILY NEEDED FOR ANXIETY 07/30/20152015 Inactive diazepam 5 mg tablet RxNorm: 913603 Tablet(s) TAKE 1/2 TO 1 TABLET BY MOUTH DAILY NEEDED FOR ANXIETY 07/27/20152015 Inactive hydrocodone 10 mg-acetaminophen 325 mg tablet RxNorm: 392464 1 Tablet(s) PO Q6 as needed 07/19/2015 08/15/2015 Inactive omeprazole 40 mg capsule,delayed release RxNorm: 939873 1 CAPSULE(S) PO DAILY 07/19/2015 01/14/2016 Inactive [SAVINGS FOR NON-COVERED DRUGS -- BIN:[id number], PCN: ASPROD1, Group: XXXXX, ID# [id number], Questions: . THIS IS NOT INSURANCE.] hydrocodone 10 mg-acetaminophen 325 mg tablet RxNorm: 935127 1 Tablet(s) PO Q6 as needed 06/20/2015 07/18/2015 Inactive baclofen 10 mg tablet RxNorm: 711075 1 Tablet(s) PO TID 201506/07/2015 Inactive baclofen 10 mg tablet RxNorm: 360256 1 Tablet(s) PO TID 201507/07/2015 Inactive diazepam 5 mg tablet RxNorm: 269791 TAKE 1/2 TO 1 TABLET BY MOUTH DAILY NEEDED FOR ANXIETY 05/29/2015 07/26/2015 Inactive sertraline 50 mg tablet RxNorm: 311792 1.5 Tablet(s) PO daily 05/02/2015 10/28/2015 Inactive sertraline 50 mg tablet RxNorm: 679826 1.5 Tablet(s) PO daily 05/01/2015 05/01/2015 Inactive patient to call when needed diazepam 5 mg tablet RxNorm: 948259 1/2-1 Tablet(s) PO QDAY PRN 05/01/2015 05/29/2015 Inactive hydrocodone 10 mg-acetaminophen 325 mg tablet RxNorm: 029246 1 Tablet(s) PO Q6 as needed 04/23/2015 06/19/2015 Inactive hydrocodone 10 mg-acetaminophen 325 mg tablet RxNorm: 374929 1 Tablet(s) PO Q6 as needed 03/26/2015 04/22/2015 Inactive hydrocodone 10 mg-acetaminophen 325 mg tablet RxNorm: 435352 1 Tablet(s) PO Q6 as needed 02/26/2015 03/25/2015 Inactive Lyrica 50 mg capsule RxNorm: 630934 1 Capsule(s) PO TID 201402/03/2016 Inactive Lyrica 50 mg capsule RxNorm: 057757 1 Capsule(s) PO TID 201402/05/2015 Inactive Fish Oil [place] 3-6-9 300 mg-1,000 mg capsule,delayed release RxNorm: 1 Capsule(s) PO BID 01/30/2015 08/10/2016 Inactive diazepam 5 mg tablet RxNorm: 823597 1 Tablet(s) PO Q8 as needed 01/30/2015 04/30/2015 Inactive hydrocodone 10 mg-acetaminophen 325 mg tablet RxNorm: 298524 1 Tablet(s) PO Q6 as needed 01/19/2015 02/25/2015 Inactive sertraline 50 mg tablet RxNorm: 923000 1 Tablet(s) PO daily 04/30/2015 Inactive hydrocodone 10 mg-acetaminophen 325 mg tablet RxNorm: 617093 1 Tablet(s) PO Q6 as needed 12/12/2014 01/18/2015 Inactive hydrocodone 10 mg-acetaminophen 325 mg tablet RxNorm: 864445 1 Tablet(s) PO Q6 as needed 11/09/2014 12/11/2014 Inactive diazepam 5 mg tablet RxNorm: 231808 1 Tablet(s) PO Q8 as needed 11/01/2014 01/29/2015 Inactive omeprazole 40 mg capsule,delayed release RxNorm: 287149 1 Capsule(s) PO daily 10/02/2014 04/30/2015 Inactive [SAVINGS FOR NON-COVERED DRUGS -- BIN:[id number], PCN: ASPROD1, Group: XXXXX, ID# [id number], Questions: . THIS IS NOT INSURANCE.] omeprazole 40 mg capsule,delayed release RxNorm: 802739 1 Capsule(s) PO daily 10/02/2014 10/01/2014 Inactive melatonin 3 mg tablet RxNorm: 150194 1 Tablet(s) PO QHS No Start Date Active Vitamin D3 oral RxNorm : 2418 oral No Start Date Active diclofenac sodium 75 mg tablet,delayed release RxNorm: 237178 2 Tablet(s) PO daily No Start Date 04/30/2015 Inactive diazepam 5 mg tablet RxNorm: 394705 1 Tablet(s) PO TID No Start Date 10/31/2014 Inactive Multi Vitamin oral RxNorm: oral No Start Date 03/08/2017 Inactive Flonase nasal RxNorm: 58668 nasal No Start Date 03/08/2017 Inactive gabapentin 100 mg tablet RxNorm: 877717 1 Tablet(s) PO TID No Start Date 02/06/2015 Inactive hydrocodone 10 mg-acetaminophen 325 mg tablet RxNorm: 159947 1 Tablet(s) PO QID No Start Date 11/08/2014 Inactive Zithromax Z-Myles 250 mg tablet RxNorm: 396190 1 Tablet(s) PO UD No Start Date 06/24/2017 Inactive clopidogrel 75 mg tablet RxNorm: 135554 1 Tablet(s) PO daily No Start Date 09/03/2016 Inactive atorvastatin 40 mg tablet RxNorm: 863362 1 Tablet(s) PO daily No Start Date 09/20/2017 Inactive sertraline 50 mg tablet RxNorm: 519353 1 Tablet(s) PO daily No Start Date [...] Ord21 ESR 2 mm/hr 11/04/2017 Comp Metabolic Jiz688 NA 143 mEq/L 08/28/2017 Comp Metabolic Bxw341 K 4.2 mEq/L 08/28/2017 Comp Metabolic Vlo681 CL 108 mEq/L 08/28/2017 Comp Metabolic Fsr886 CO2 28.0 mEq/L 08/28/2017 Comp Metabolic Kmv203 ANION GAP 11 08/28/2017 Comp Metabolic Kns095 GLUCOSE 89 mg/dL 08/28/2017 Comp Metabolic Sat962 Creat 0.8 mg/dL 08/28/2017 Comp Metabolic Ton996 eGFR 78 ml/min/1.73m2 08/28/2017 Comp Metabolic Xcc432 BUN 19 mg/dL 08/28/2017 Comp Metabolic Tai900 B/C Ratio 24.4 Ratio 08/28/2017 Comp Metabolic Osa150 CALCIUM 8.4 mg/dL 08/28/2017 Comp Metabolic Nbr184 ALK PHOS 52 U/L 08/28/2017 Comp Metabolic Ipe955 AST(SGOT) 20 U/L 08/28/2017 Comp Metabolic Rtu554 ALT(SGPT) 14 U/L 08/28/2017 Comp Metabolic Oyp618 BILI T 0.5 mg/dL 08/28/2017 Comp Metabolic Mjl451 ALBUMIN 4.0 g/dL 08/28/2017 Comp Metabolic Urx136 TPRO 5.9 g/dL 08/28/2017 Comp Metabolic Kys228 GLOB 1.9 g/dL 08/28/2017 Comp Metabolic Ypq391 A/G Ratio 2.1 Ratio 08/28/2017 Comp Metabolic Jly954 Osmo 287 mOsmo 08/28/2017 Cbc With Differential [...] 30.9 pg 08/28/2017 Cbc With Differential Ord2 [place]% 5.9 % 08/28/2017 Cbc With Differential Ord2 [...] 2.28 K/ul 08/28/2017 Cbc With Differential Ord2 [place] ABS# 0.4 K/ul 08/28/2017 Cbc With Differential [...] 31.7 pg 03/09/2017 Cbc With Differential Ord2 [place]% 6.1 % 03/09/2017 Cbc With Differential Ord2 [...] 1.78 K/ul 03/09/2017 Cbc With Differential Ord2 [place] ABS# 0.4 K/ul 03/09/2017 Cbc With Differential Ord2 Eos ABS# 0.1 K/ul 03/09/2017 Cbc With Differential Ord2 Baso ABS# 0.0 K/ul 03/09/2017 Tsh Ord6 hTSH II 0.87 uIU/mL 03/09/2017 %Hba1C Hvq293 % HbA1c 83489-3 4.9 % 03/09/2017 %Hba1C Qos035 Gluc Ave 94 mg/dL 03/09/2017 Comp Metabolic Qyx254 NA 141 mEq/L 03/09/2017 Comp Metabolic Nya440 K 3.8 mEq/L 03/09/2017 Comp Metabolic Ngu980 CL 105 mEq/L 03/09/2017 Comp Metabolic Qqk572 CO2 29.0 mEq/L 03/09/2017 Comp Metabolic Ltf516 ANION GAP 11 03/09/2017 Comp Metabolic Uzh728 GLUCOSE 98 mg/dL 03/09/2017 Comp Metabolic Ubl313 Creat 0.7 mg/dL 03/09/2017 Comp Metabolic Koe528 eGFR 93 ml/min/1.73m2 03/09/2017 Comp Metabolic Naj366 BUN 11 mg/dL 03/09/2017 Comp Metabolic Zkk492 B/C Ratio 16.4 Ratio 03/09/2017 Comp Metabolic Zth150 CALCIUM 9.5 mg/dL 03/09/2017 Comp Metabolic Kjo305 ALK PHOS 90 U/L 03/09/2017 Comp Metabolic Bws148 AST(SGOT) 21 U/L 03/09/2017 Comp Metabolic Izi344 ALT(SGPT) 15 U/L 03/09/2017 Comp Metabolic Vpp692 BILI T 0.6 mg/dL 03/09/2017 Comp Metabolic Rvm552 ALBUMIN 4.5 g/dL 03/09/2017 Comp Metabolic Nst026 TPRO 6.4 g/dL 03/09/2017 Comp Metabolic Uut531 GLOB 1.9 g/dL 03/09/2017 Comp Metabolic Mlf494 A/G Ratio 2.3 Ratio 03/09/2017 Comp Metabolic Wge380 Osmo 281 mOsmo 03/09/2017 Comp Metabolic Bcc999 NA 142 mEq/L 09/03/2016 Comp Metabolic Hqn365 K 3.9 mEq/L 09/03/2016 Comp Metabolic Bup749 CL 107 mEq/L 09/03/2016 Comp Metabolic Rdr503 CO2 26.0 mEq/L 09/03/2016 Comp Metabolic Zvp804 ANION GAP 13 09/03/2016 Comp Metabolic Dfm509 GLUCOSE 107 mg/dL 09/03/2016 Comp Metabolic Cmt851 Creat 0.7 mg/dL 09/03/2016 Comp Metabolic Imo672 eGFR 85 ml/min/1.73m2 09/03/2016 Comp Metabolic Jdz872 BUN 16 mg/dL 09/03/2016 Comp Metabolic Yhb737 B/C Ratio 21.9 Ratio 09/03/2016 Comp Metabolic Zuz942 CALCIUM 8.8 mg/dL 09/03/2016 Comp Metabolic Lze200 ALK PHOS 51 U/L 09/03/2016 Comp Metabolic Ngg638 AST(SGOT) 24 U/L 09/03/2016 Comp Metabolic Ams813 ALT(SGPT) 20 U/L 09/03/2016 Comp Metabolic Ywn698 BILI T 0.7 mg/dL 09/03/2016 Comp Metabolic Mcr113 ALBUMIN 4.1 g/dL 09/03/2016 Comp Metabolic Scc291 TPRO 6.1 g/dL 09/03/2016 Comp Metabolic Nqr219 GLOB 2.0 g/dL 09/03/2016 Comp Metabolic Aht047 A/G Ratio 2.1 Ratio 09/03/2016 Comp Metabolic Egy960 Osmo 285 mOsmo 09/03/2016 Cbc With Differential [...] 30.3 pg 09/03/2016 Cbc With Differential Ord2 [place]% 6.5 % 09/03/2016 Cbc With Differential Ord2 [...] 1.53 K/ul 09/03/2016 Cbc With Differential Ord2 [place] ABS# 0.4 K/ul 09/03/2016 Cbc With Differential [...] Ord15 CALCIUM 9.1 mg/dL 12/21/2015 Comp Metabolic Fty386 NA 138 mEq/L 07/06/2015 Comp Metabolic Xhz980 K 3.9 mEq/L 07/06/2015 Comp Metabolic Azc509 CL 103 mEq/L 07/06/2015 Comp Metabolic Qbu808 CO2 28.0 mEq/L 07/06/2015 Comp Metabolic Ejg937 ANION GAP 11 07/06/2015 Comp Metabolic Htw527 GLUCOSE 114 mg/dL 07/06/2015 Comp Metabolic Qed786 Creat 0.7 mg/dL 07/06/2015 Comp Metabolic Xzt316 eGFR 97 ml/min/1.73m2 07/06/2015 Comp Metabolic Las884 BUN 11 mg/dL 07/06/2015 Comp Metabolic Wey154 B/C Ratio 16.9 Ratio 07/06/2015 Comp Metabolic Ekk218 CALCIUM 9.1 mg/dL 07/06/2015 Comp Metabolic Yky458 ALK PHOS 57 U/L 07/06/2015 Comp Metabolic Nur603 AST(SGOT) 26 U/L 07/06/2015 Comp Metabolic Pbl764 ALT(SGPT) 17 U/L 07/06/2015 Comp Metabolic Rzn985 BILI T 0.6 mg/dL 07/06/2015 Comp Metabolic Tyz272 ALBUMIN 4.6 g/dL 07/06/2015 Comp Metabolic Guu969 TPRO 6.7 g/dL 07/06/2015 Comp Metabolic Hhv675 GLOB 2.1 g/dL 07/06/2015 Comp Metabolic Dro920 A/G Ratio 2.2 Ratio 07/06/2015 Comp Metabolic Rgv250 Osmo 276 mOsmo 07/06/2015 Lipid Ord30 CHOL 228 mg/dL 07/06/2015 Lipid Ord30 HDL 48.0 mg/dl 07/06/2015 Lipid Ord30 TRIG 176 mg/dL 07/06/2015 Lipid Ord30 LDL 145 mg/dL 07/06/2015 Lipid Ord30 C/HDL 4.8 Ratio 07/06/2015 Tsh Ord6 hTSH II 0.74 uIU/mL 05/01/2015 Comp Metabolic Ooa084 NA 141 mEq/L 05/01/2015 Comp Metabolic Inc907 K 4.0 mEq/L 05/01/2015 Comp Metabolic Frh402 CL 106 mEq/L 05/01/2015 Comp Metabolic Koe746 CO2 26.0 mEq/L 05/01/2015 Comp Metabolic Obp522 ANION GAP 13 05/01/2015 Comp Metabolic Dqh995 GLUCOSE 124 mg/dL 05/01/2015 Comp Metabolic Hme559 Creat 0.8 mg/dL 05/01/2015 Comp Metabolic Bhe105 eGFR 79 ml/min/1.73m2 05/01/2015 Comp Metabolic Sed330 BUN 13 mg/dL 05/01/2015 Comp Metabolic Wyo669 B/C Ratio 16.7 Ratio 05/01/2015 Comp Metabolic Vzz833 CALCIUM 9.3 mg/dL 05/01/2015 Comp Metabolic Fjs140 ALK PHOS 54 U/L 05/01/2015 Comp Metabolic Kzg409 AST(SGOT) 21 U/L 05/01/2015 Comp Metabolic Wjp795 ALT(SGPT) 14 U/L 05/01/2015 Comp Metabolic Hvh422 BILI T 0.5 mg/dL 05/01/2015 Comp Metabolic Wnz103 ALBUMIN 4.5 g/dL 05/01/2015 Comp Metabolic Jfs930 TPRO 6.4 g/dL 05/01/2015 Comp Metabolic Yvc558 GLOB 1.9 g/dL 05/01/2015 Comp Metabolic Aok578 A/G Ratio 2.4 Ratio 05/01/2015 Comp Metabolic Tue018 Osmo 283 mOsmo 05/01/2015 Cbc With Differential [...] Differential Ord2 RDW 16.8 % 05/01/2015 %Hba1C Dwp589 % HbA1c 90890-2 5.4 % 01/29/2015 %Hba1C Snj787 Gluc Ave 108 mg/dL 01/29/2015 Lipid Ord30 CHOL 221 mg/dL 01/26/2015 Lipid Ord30 HDL 37.0 mg/dl 01/26/2015 Lipid Ord30 TRIG 274 mg/dL 01/26/2015 Lipid Ord30 LDL 129 mg/dL 01/26/2015 Lipid Ord30 C/HDL 6.0 Ratio 01/26/2015 Tsh Ord6 hTSH II 0.85 uIU/mL 01/26/2015 Comp Metabolic Qpn056 NA 137 mEq/L 01/26/2015 Comp Metabolic Qvn092 K 4.0 mEq/L 01/26/2015 Comp Metabolic Ztn619 CL 104 mEq/L 01/26/2015 Comp Metabolic Qqp509 CO2 27.0 mEq/L 01/26/2015 Comp Metabolic Txv188 ANION GAP 10 01/26/2015 Comp Metabolic Sbe633 GLUCOSE 131 mg/dL 01/26/2015 Comp Metabolic Csp816 Creat 0.8 mg/dL 01/26/2015 Comp Metabolic Eav611 eGFR 77 ml/min/1.73m2 01/26/2015 Comp Metabolic Xry451 BUN 16 mg/dL 01/26/2015 Comp Metabolic Swe252 B/C Ratio 20.0 Ratio 01/26/2015 Comp Metabolic Wxa067 CALCIUM 9.1 mg/dL 01/26/2015 Comp Metabolic Tfr424 ALK PHOS 66 U/L 01/26/2015 Comp Metabolic Rxv234 AST(SGOT) 24 U/L 01/26/2015 Comp Metabolic Lrk753 ALT(SGPT) 20 U/L 01/26/2015 Comp Metabolic Caj559 BILI T 0.4 mg/dL 01/26/2015 Comp Metabolic Onb282 ALBUMIN 4.2 g/dL 01/26/2015 Comp Metabolic Toy274 TPRO 6.4 g/dL 01/26/2015 Comp Metabolic Kwd627 GLOB 2.2 g/dL 01/26/2015 Comp Metabolic Rlw572 A/G Ratio 1.9 Ratio 01/26/2015 Comp Metabolic Wbx992 Osmo 277 mOsmo 01/26/2015 Cbc With Differential [...] Differential Ord2 RDW 15.5 % 01/26/2015 B12 Qub264 B12 669.00 pg/ml 01/26/2015 Review of Systems [...] NO PRSV 4 BLANCA 3 YRS+ CPT-4: 94781 02/22/2018 ADMIN INFLUENZA VIRUS VAC CPT-4: G0008 03/18/2017 FLU VACC PRSV FREE INC ANTIG CPT-4: 70195 03/18/2017 INITIAL PREVENTIVE EXAM CPT-4: G0402 07/06/2015 IIV4 FLU VACC NO PRESERV ID Formatting Model/CDA Sections, Assigned to SNOMED CT: [id number] CPT-4: 58115Yueizqk 03/26/2015 IMMUNIZATION ADMIN CPT -4: 20402 03/26/2015 Vital Signs Date Vital 02/22/2018 Blood Pressure 1: 140/70 Code : 8480-6 BMI: 26.3 Code : 46246-3 Heart Rate 1 : 60 bpm Height: 5'1" SpO2: 97% Weight: 139 lbs 12/29/2017 Blood Pressure 1: 110/58 Code : 8480-6 BMI: 23.8 Code : 36482-8 Heart Rate 1 : 56 bpm Height: 5'1" SpO2: 98% Weight: 126 lbs 10/28/2017 Blood Pressure 1: 96/68 Code : 8480-6 BMI: 21.7 Code : 50368-2 Heart Rate 1 : 68 bpm Height: 5'1" SpO2: 98% Weight: 115 lbs 09/23/2017 Blood Pressure 1: 134/72 Code : 8480-6 BMI: 22.5 Code : 24549-3 Heart Rate 1 : 72 bpm Height: 5'1" SpO2: 97% Weight: 119 lbs 03/18/2017 Blood Pressure 1: 140/72 Code : 8480-6 BMI: 21.5 Code : 05914-7 Heart Rate 1 : 64 bpm Height: 5'1" SpO2: 96% Weight: 114 lbs 03/09/2017 Blood Pressure 1: 120/72 Code : 8480-6 BMI: 21.5 Code : 69953-0 Heart Rate 1 : 75 bpm Height: 5'1" SpO2: 97% Weight: 114 lbs 12/09/2016 Blood Pressure 1: 130/76 Code : 8480-6 BMI: 23.8 Code : 00776-6 Heart Rate 1 : 68 bpm Height: 5'1" SpO2: 98% Weight: 126 lbs 09/08/2016 Blood Pressure 1: 162/80 Code : 8480-6 Blood Pressure 2: 145/90 Code: 8480-6 BMI: 24.7 Code: 18134-5 Heart Rate 1: 77 bpm Height: 5'1" SpO2: 97% Weight: 130 lbs 8 oz 08/11/2016 Blood Pressure 1: 130/80 Code : 8480-6 BMI: 25.9 Code : 05950-8 Heart Rate 1 : 62 bpm Height: 5'1" SpO2: 97% Weight: 137 lbs 07/03/2016 Blood Pressure 1: 134/74 Code : 8480-6 BMI: 26.8 Code : 10981-0 Heart Rate 1 : 74 bpm Height: 5'1" SpO2: 97% Weight: 142 lbs 06/19/2016 Blood Pressure 1: 118/66 Code : 8480-6 Heart Rate 1: 72 bpm SpO2: 96% Weight: 142 lbs 02/04/2016 Blood Pressure 1: 130/80 Code : 8480-6 BMI: 27.2 Code : 97408-9 Heart Rate 1 : 76 bpm Height: 5'1" SpO2: 96% Weight: 144 lbs 01/07/2016 Blood Pressure 1: 136/64 Code : 8480-6 BMI: 27.6 Code : 84603-4 Heart Rate 1 : 73 bpm Height: 5'1" SpO2: 987% Weight: 146 lbs 12/17/2015 Blood Pressure 1: 128/86 Code : 8480-6 BMI: 27.0 Code : 77838-9 Heart Rate 1 : 59 bpm Height: 5'1" SpO2: 96% Weight: 143 lbs 10/16/2015 Blood Pressure 1: 122/78 Code : 8480-6 BMI: 25.7 Code : 00192-3 Heart Rate 1 : 71 bpm Height: 5'1" SpO2: 96% Weight: 136 lbs 08/16/2015 Blood Pressure 1: 138/88 Code : 8480-6 BMI: 27.0 Code : 73139-6 Heart Rate 1 : 75 bpm Height: 5'1" SpO2: 98% Weight: 143 lbs 07/06/2015 Blood Pressure 1: 120/72 Code : 8480-6 BMI: 26.5 Code : 63008-4 Heart Rate 1 : 72 bpm Height: 5'1" SpO2: 96% Weight: 140 lbs 06/07/2015 Blood Pressure 1: 152/86 Code : 8480-6 BMI: 26.1 Code : 30986-9 Heart Rate 1 : 88 bpm Height: 5'1" SpO2: 97% Weight: 138 lbs 05/01/2015 Blood Pressure 1: 120/80 Code : 8480-6 BMI: 27.0 Code : 33287-4 Heart Rate 1 : 82 bpm Height: 5'1" SpO2: 98% Temperature: 36.7 (C) / 98.0 (F) Weight: 143 lbs 03/26/2015 Blood Pressure 1: 140/80 Code : 8480-6 BMI: 28.0 Code : 95809-4 Heart Rate 1 : 69 bpm Height: 5'1" SpO2: 96% Weight: 148 lbs 03/13/2015 Blood Pressure 1: 128/70 Code : 8480-6 BMI: 28.2 Code : 48909-0 Heart Rate 1 : 76 bpm Height: 5'1" Weight: 149 lbs 01/30/2015 Blood Pressure 1: 142/68 Code : 8480-6 BMI: 28.7 Code : 78412-0 Heart Rate 1 : 86 bpm Height: 5'1" SpO2: 96% Weight: 152 lbs 10/16/2014 Blood Pressure 1: 160/88 Code : 8480-6 BMI: 28.2 Code : 10043-2 Heart Rate 1 : 66 bpm Height: [...] data Encounters Encounter Performer Location Codes Date 21857 EST. PATIENT, LEVEL III Diagnosis: Other insomnia[ICD10: G47.09] Diagnosis: Dementia in other diseases classified elsewhere without behavioral disturbance[ICD10: F02.80] Diagnosis: Encounter for immunization[ICD10: Z23] [facility] CPT-4: 17498 02/22/2018 [id number] EST. PATIENT, LEVEL IV Diagnosis: Dementia in other diseases classified elsewhere without behavioral disturbance[ICD10: F02.80] Diagnosis: Major depressive disorder, recurrent, mild[ICD10: F33.0] Diagnosis: Other allergic rhinitis[ICD10: J30.89] Angelica Ochoa MD, [facility] CPT-4: 10344 12/29/2017 ([id number]) 11853 EST. PATIENT, LEVEL IV Diagnosis: Dementia in other diseases classified elsewhere without behavioral disturbance[ICD10: F02.80] Diagnosis: Major depressive disorder, recurrent, mild[ICD10: F33.0] Diagnosis: Allergy to other foods[ICD10: Z91.018] Marylu Ochoa MD, [facility] CPT-4: 59855 10/28/2017 52121 EST. 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 PATIENT, LEVEL IV Diagnosis: Essential (primary) hypertension[ICD10: I10] Diagnosis: Major depressive disorder, recurrent, moderate[ICD10: F33.1] Diagnosis: Underweight[ICD10: R63.6] Diagnosis: Localization-related (focal) (partial) symptomatic epilepsy and epileptic syndromes with simple partial seizures, not intractable, without status epilepticus[ICD10: G40.109] Marylu Ochoa MD, [facility] CPT-4: 40828 03/09/2017 [id number]) 48403 EST. PATIENT, LEVEL IV Diagnosis: Mixed hyperlipidemia[ICD10: E78.2] Diagnosis: Chronic pain syndrome[ICD10: G89.4] Diagnosis: Major depressive disorder, recurrent, mild[ICD10: F33.0] Marylu Ochoa MD, [facility] CPT-4: 64985 12/09/2016 ([id number]) 17683 EST. PATIENT, LEVEL IV Diagnosis: Essential (primary) hypertension[ICD10: I10] Diagnosis: Low back pain[ICD10: M54.5] Diagnosis: Personal history of transient ischemic attack (TIA), and cerebral infarction without residual deficits[ICD10: Z86.73] Diagnosis: Major depressive disorder, recurrent, moderate[ICD10: F33.1] Diagnosis: Other sleep apnea[ICD10: G47.39] Marylu Ochoa MD, [facility] CPT-4: 64689 09/08/2016 ([id number]) 35868 EST. 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 PATIENT, LEVEL III Diagnosis: Chronic pain syndrome[ICD10: G89.4] Diagnosis: Low back pain[ICD10: M54.5] Diagnosis: Major depressive disorder, recurrent, mild[ICD10: F33.0] Diagnosis: Mild cognitive impairment, so stated[ICD10: G31.84] Angelica Ochoa MD, [facility] CPT-4: 29358 07/03/2016 ([id number]) 35322 EST. PATIENT, LEVEL III Diagnosis: Chronic pain syndrome[ICD10: G89.4] Donna Ochoa MD, [facility] CPT-4: 71308 06/19/2016 ([id number]) 59808 EST. PATIENT, LEVEL IV Diagnosis: Chronic pain syndrome[ICD10: G89.4] Diagnosis: Mild cognitive impairment, so stated[ICD10: G31.84] Donna Ochoa MD, [facility] CPT-4: 29035 02/04/2016 ([id number]) 81006 EST. PATIENT, LEVEL IV Diagnosis: Chronic pain syndrome[ICD10: G89.4] Diagnosis: Mild cognitive impairment, so stated[ICD10: G31.84] Diagnosis: Major depressive disorder, recurrent, mild[ICD10: F33.0] Donna Ochoa MD , [facility] CPT-4: 00209 01/07/2016 ([id number]) 60878 EST. PATIENT, LEVEL IV Diagnosis: Chronic pain syndrome[ICD10: G89.4] Diagnosis: Headache[ICD10: R51] Diagnosis: Major depressive disorder, recurrent, mild[ICD10: F33.0] Diagnosis: Mixed hyperlipidemia[ICD10: E78.2] Donna Ochoa MD, [facility] CPT-4: 55698 12/17/2015 ([id number]) 32389 EST. PATIENT, LEVEL III Diagnosis: Chronic pain syndrome[ICD10: G89.4] Diagnosis: Major depressive disorder, recurrent, mild[ICD10: F33.0] Donna Ochoa MD , [facility] CPT-4: 16923 10/16/2015 ([id number]) 39288 EST. PATIENT, LEVEL III Diagnosis: Low back pain[ICD10: M54.5] Donna Ochoa MD, [facility] CPT-4: 82159 08/16/2015 ([id number]) 45789 EST. 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 PATIENT, LEVEL IV Diagnosis: Major depressive disorder, recurrent, mild[ICD10: F33.0] Diagnosis: Chronic pain syndrome[ICD10: G89.4] Diagnosis: Other fatigue[ICD10: R53.83] Donna Ochoa MD, [facility] CPT-4: 41898 05/01/2015 ([id number]) 58917 EST. PATIENT, LEVEL II Diagnosis: Plantar fascial fibromatosis[ICD10: M72.2] Donna Ochoa MD, [facility] CPT-4: 00412 03/26/2015 ([id number]) 11230 EST. PATIENT, LEVEL III Diagnosis: Plantar fascial fibromatosis[ICD10: M72.2] [facility] CPT-4: 89068 03/13/2015 ([id number]) 09659 EST. PATIENT, LEVEL III Diagnosis: Hyperlipidemia[ICD9: 272.4] Diagnosis: ALLERGIC RHINITIS[ICD9: 477.9] Diagnosis: Chronic pain syndrome[ICD9: 338.4] [facility] CPT-4: 49057 01/30/2015 ([id number]) OFFICE VISIT, NEW - LEVEL 4 Diagnosis: ESOPHAGEAL REFLUX[ICD9: 530.81] Diagnosis: Peripheral neuropathy[ICD9: 356.9] Diagnosis: Chronic pain syndrome[ICD9: 338.4] Diagnosis: OSTEOARTH NOS-UNSPEC[ICD9: 715.90] Diagnosis: DEPRESSIVE DISORDER NEC[ICD9: 311] [facility] CPT-4: 47180 10/16/2014 Plan of Care Planned Activity Notes Codes Status Date Visit Plan: Insomnia - Pt has been [...] of treatment. 02/22/2018 Appointment: Angelica Cuba WPtel: [facility]5 [facility] (15 min) Moderate 02/22/2018 Appointment: Angelica Cuba WPtel: [address] [place], [place] [id number] (15 min) Moderate 02/22/2018 Patient Education: Patient Medication Summary Completed 02/22/2018 Appointment: Angelica Cuba WPtel: [address] [place], [place] [phone] (15 min) Moderate 02/18/2018 Visit Plan: [...] Completed 12/29/2017 [phone] [facility] (15 min) Moderate 12/23/2017 Patient Education: Patient [...] adalgisa. 10/28/2017 [facility]ment[phone] ([facility] min) Moderate 10/28/2017 Patient Education: Patient [...] make a follow up appointment with her alarm service technician - The patient has been counseled [...] acute concerns. 09/23/2017 Appointment: Angelica Cuba WPtel: [phone] [facility] (30 min) Complex 09/23/2017 Patient Education: Patient Medication Summary Completed 09/23/2017 Appointment: [place] [phone] (15 min) Moderate 08/26/2017 Appointment: Angelica Cuba WPtel: [phone] [facility] (30 min) Complex 06/30/2017 Referral: External, Ordering Provider Referral Initiated 05/27/2017 Care Plan: Referral Order SNOMED-CT : [id number] Pending 04/20/2017 Visit Plan: Anxiety - the [...] make a follow up appointment with her alarm service technician - The patient has been counseled [...] at home. 03/09/2017 Appointment: Marylu Ochoa WPtel: [facility]5 [facility] (30 min) Complex 03/09/2017 Patient Education: Patient Medication Summary Completed 03/09/2017 Appointment: Donna Wal[facility]el[facility] [phone] [phone] [place] (30 min) Complex 03/06/2017 Appointment: Marylu Ochoa WPtel: [facility] (15 min) Moderate 01/08/2017 Visit Plan: Hyperlipidemia [...] Completed 12/09/2016 Appointment: [phone] [facility] [place] (15 min) Moderate 11/11/2016 Appointment: Angel[facility] [place] [facility]Ptel[facility] [phone] [facility] [place] (30 min) Complex 10/09/2016 Visit Plan: [...] - 90 day supply of Aricept through [facility], refill namenda Suspected sleep disordered breathing [...] - 90 day supply of Aricept through [facility], refill namenda 09/08/2016 Appointment: Marylu Ochoa WPtel: [facility] (15 min) Moderate 09/08/2016 Patient Education: Patient Medication Summary Completed 09/08/2016 Appointment: Angelica Cuba WPtel: [facility]8 [facility] (30 min) Complex 08/19/2016 Visit Plan: [...] with plavix 08/11/2016 Appointment: Marylu Ochoa WPtel: [facility]3 [facility] (15 min) Moderate 08/11/2016 Patient Education: Patient [...] or concerns. 07/03/2016 Appointment: Angelica Cuba WPtel: [facility]2 [facility] (30 min) Complex 07/03/2016 Patient Education: Patient Medication Summary Completed 07/03/2016 Care Plan: Referral Order SNOMED-CT : [id number] Pending 07/03/2016 Visit Plan: Chronic Pain Syndrome - pt has chronic pain - has been maintained on current medications, has not sought out other medications , only uses PRN pain medications as directed, and understands the consequences of over-medication. 06/19/2016 Appointment: Donna Walden WPtel: [facility]7 [phone] [place] (30 min) Complex 06/19/2016 Patient Education: Patient Medication Summary Completed 06/19/2016 Appointment: Donna Walden WPtel: [facility]1 [phone] (30 min) Complex 06/05/2016 Visit Plan: Chronic Pain Syndrome - pt has chronic pain - has been maintained on current medications, has not sought out other medications , only uses PRN pain medications as directed, and understands the consequences of over-medication. Mild cognitive impairment-discussed with Dr Arnulfo tam 02/04/2016 Appointment: Donna Walden WPtel: [facility] [place] [address] (30 min) Complex 02/04/2016 Patient Education: Patient Medication Summary Completed 02/04/2016 Appointment: Donna Walden WPtel: [phone] (30 min) Complex 01/14/2016 Visit Plan: [...] testing. 01/07/2016 Appointment: Donna Walden WPtel: [phone] [facility] [place] [address] (15 min) Moderate 01/07/2016 Patient Education: Patient Medication Summary Completed 01/07/2016 Visit Plan: Chronic Pain Syndrome - pt has chronic pain - has been maintained on current medications, has not sought out other medications , only uses PRN pain medications as directed, and understands the consequences of over-medication. Headaches-memory loss-schedule MRI brain Hyperlipidemia- check fasting labs Iyrocjrdkp-[id number]-gh change in medications at this time 12/17/2015 Patient Education: Patient Medication Summary Completed 12/17/2015 Appointment: Donna Walden WPtel: [phone] [phone] (30 min) Complex 12/13/2015 Visit Plan: [...] medications. 10/16/2015 Appointment: Donna Walden WPtel: [phone] [phone] (30 min) Complex 10/16/2015 Patient Education: [...] pain symptoms. 06/07/2015 Appointment: Marylu Ochoa WPtel: [facility] (15 min) Moderate 06/07/2015 Patient Education: [...] shoes - discussed inserts and referral to measuring clerk-patient wants to wait but will let us [...] pain symptoms. 10/16/2014 Appointment: Marylu Ochoa WPtel: [facility] [place] [facility] New Patient 10/16/2014 Patient Education: Patient Medication Summary Completed 10/16/2014 Patient Education: Hypertension Completed 10/16/2014 Referral: Betsy Samuels Referral Initiated Referral: External, Ordering Provider Referral Relationship Instructions Comment mammogram order - given to patient - she is to schedule in [place] . Chronic Pain Syndrome - pt has [...] symptoms are not controlled with the medication. MRI brain Memory testing with f/u appt . Chronic Pain Syndrome - pt has chronic pain - has been maintained on current medications, has not sought out other medications, only uses PRN pain medications as directed, and understands the consequences of over-medication. Headaches-memory loss-schedule MRI brain Hyperlipidemia-check fasting labs Eoehifotsp-rvmooq-pg change in medications at this time . [...] to maintain independece in the home. . Chronic Depression and anxiety - the [...] make a follow up appointment with her alarm service technician - The patient has been counseled [...] about referring her to Dr. Dexter grullon [place] (neurologist) . Anxiety - the patient has [...] make a follow up appointment with her alarm service technician - The patient has been counseled [...] pain 90 day supply of Aricept through [facility] [facility] Add 50 mg Losartan daily for hypertension [...] - 90 day supply of Aricept through [facility], refill namenda Suspected sleep disordered breathing with episodes of nocturnal fits of not breathing correctly - pt advised of need for an overnight oxygen study to be done to see if there is nocturnal hypoxemia contributing to her memory loss, htn. Refill Cymbalta Voltaren gel for low back pain 90 day supply of Aricept through [facility] [facility] Add 50 mg Losartan daily for hypertension [...] - 90 day supply of Aricept through [facility], refill elisa ADAMSON 2 TABS TWICE DAILY WITH FOOD PHYSICAL [...] patient's termination from this medical practice. . Esophageal Reflux - the patient has [...] situational exposure. No change in current medications. Namenda starter pack . Chronic Pain Syndrome [...] and understands the consequences of over- medication. INCREASE SERTRALINE TO 1.5 TABLETS DAILY . [...] supportive shoes -discussed inserts and referral to measuring clerk-patient wants to wait but will let us [...]
--- OUTSIDE RECORDS SUMMARY | 2018-09-20 06:05 | XMS REPORT | CCD ---
Author Author Marylu Ochoa Organization Marylu Ochoa MD, [facility] Address [address] [place] [address] Phone Care Team Providers Care Client Solutions Specialist Name Role Phone PP Unavailable CCM Unavailable Summary Purpose Interface Exchange Insurance Providers Payer name Policy type / Coverage type Covered green party ID Effective Begin Date Effective End Date WPS Medicare Part B Medicare Part B [id number] 2015 Unknown [facility] Medicare Part B [id number] 2015 Unknown Family history Mother Diagnosis Age [...] Unknown Retired 10/16/[address]: 161906394 Never smoker 10/16/[address]: 615039925 Never drinks alcohol 10/16/2014 Allergies, Adverse Reactions, [...] Start Date Stop Date Status Fill Instructions Aricept 10 mg tablet RxNorm: 207167 1 TABLET(S) PO DAILY 201707/12/2018 Active hydrocodone 10 mg-acetaminophen 325 mg tablet RxNorm: 912074 1 Tablet(s) PO Q6 as needed 02/26/2018 03/27/2018 Active diazepam 5 mg tablet RxNorm: 809112 1/2 Tablet(s) PO QHS as needed 02/22/2018 03/23/2018 Active hydrocodone 10 mg-acetaminophen 325 mg tablet RxNorm: 867783 1 Tablet(s) PO Q6 as needed 02/05/2018 02/25/2018 Inactive levetiracetam 500 mg tablet RxNorm: 183076 1 TABLET(S) PO BID 01/07/2018 04/06/2018 Active pt to finish out supply of liquid then start on tablets hydrocodone 10 mg-acetaminophen 325 mg tablet RxNorm: 366295 1 Tablet(s) PO Q6 as needed 12/29/2017 01/27/2018 Inactive hydrocodone 10 mg-acetaminophen 325 mg tablet RxNorm: 043677 1 Tablet(s) PO Q6 as needed 12/10/2017 12/28/2017 Inactive Zyrtec 10 mg tablet RxNorm: 5368711 1 Tablet(s) PO QAM for allergies 10/28/2017 05/25/2018 Active Zantac 75 mg tablet RxNorm: 789681 1 Tablet(s) PO BID 201702/24/2018 Inactive Aricept 10 mg tablet RxNorm: 525977 1 TABLET(S) PO DAILY 201702/23/2018 Inactive Cymbalta 30 mg capsule,delayed release RxNorm: 377236 1 Capsule(s) PO daily 10/22/2017 05/19/2018 Active hydrocodone 10 mg-acetaminophen 325 mg tablet RxNorm: 280162 1 Tablet(s) PO Q6 as needed 10/20/2017 11/18/2017 Inactive Voltaren 1 % topical gel RxNorm: 338780 4 Gram(s) TOP TID as needed for pain as needed 09/23/2017 09/17/2018 Active levetiracetam 500 mg tablet RxNorm: 232616 1 TABLET(S) PO BID 09/21/2017 10/20/2017 Inactive pt to finish out supply of liquid then start on tablets hydrocodone 10 mg-acetaminophen 325 mg tablet RxNorm: 162064 1 Tablet(s) PO Q6 as needed 08/27/2017 09/25/2017 Inactive Aricept 10 mg tablet RxNorm: 892891 1 Tablet(s) PO daily 201709/16/2017 Inactive Aricept 10 mg tablet RxNorm: 351153 1 Tablet(s) PO daily 201708/17/2017 Inactive hydrocodone 10 mg-acetaminophen 325 mg tablet RxNorm: 609837 1 Tablet(s) PO Q6 as needed 07/28/2017 08/26/2017 Inactive Zithromax Z-Myles 250 mg tablet RxNorm: 636494 1 Tablet(s) PO UD 06/25/2017 09/20/2017 Inactive hydrocodone 10 mg-acetaminophen 325 mg tablet RxNorm: 240323 1 Tablet(s) PO Q6 as needed 06/17/2017 07/16/2017 Inactive Namenda XR 28 mg capsule sprinkle,extended release RxNorm: 679752 1 Capsule(s) PO daily 05/08/2017 05/02/2018 Active Aricept 10 mg tablet RxNorm: 780908 1 Tablet(s) PO daily 201608/05/2017 Inactive hydrocodone 10 mg-acetaminophen 325 mg tablet RxNorm: 581855 1 Tablet(s) PO Q6 as needed 05/05/2017 06/03/2017 Inactive hydrocodone 10 mg-acetaminophen 325 mg tablet RxNorm: 866896 1 Tablet(s) PO Q6 as needed 04/06/2017 05/04/2017 Inactive diazepam 2 mg tablet RxNorm: 262889 1/2 - 1 Tablet(s) PO BID as needed 03/18/2017 09/20/2017 Inactive Cymbalta 30 mg capsule,delayed release RxNorm: 028525 1 Capsule(s) PO daily 03/09/2017 10/04/2017 Inactive levetiracetam 500 mg tablet RxNorm: 016396 1 Tablet(s) PO BID 03/09/2017 08/05/2017 Inactive pt to finish out supply of liquid then start on tablets Aricept 5 mg tablet RxNorm: 213376 1 Tablet(s) PO daily 201605/07/2017 Inactive pantoprazole 40 mg tablet,delayed release RxNorm: 065583 1 Tablet(s) PO daily 03/09/2017 07/06/2017 Inactive hydrocodone 10 mg-acetaminophen 325 mg tablet RxNorm: 438777 1 Tablet(s) PO Q6 as needed 12/04/2016 03/08/2017 Inactive hydrocodone 10 mg-acetaminophen 325 mg tablet RxNorm: 788898 1 Tablet(s) PO Q6 as needed 11/06/2016 12/03/2016 Inactive hydrocodone 10 mg-acetaminophen 325 mg tablet RxNorm: 584509 1 Tablet(s) PO Q6 as needed 10/08/2016 11/05/2016 Inactive Voltaren 1 % topical gel RxNorm: 730978 4 Gram(s) TOP TID as needed for pain as needed 09/25/2016 09/19/2017 Inactive hydrocodone 10 mg-acetaminophen 325 mg tablet RxNorm: 384146 1 Tablet(s) PO Q6 as needed 09/09/2016 10/07/2016 Inactive Voltaren 1 % topical gel RxNorm: 433828 1 Application TOP TID 09/08/2016 09/24/2016 Inactive Aricept 5 mg tablet RxNorm: 834574 1 Tablet(s) PO daily 201612/06/2016 Inactive Cymbalta 30 mg capsule,delayed release RxNorm: 809813 1 Capsule(s) PO daily 09/08/2016 12/06/2016 Inactive losartan 50 mg tablet RxNorm: 842977 1 Tablet(s) PO daily 201610/07/2016 Inactive clopidogrel 75 mg tablet RxNorm: 751913 75 MG PO DAILY 201609/20/2017 Inactive hydrocodone 10 mg-acetaminophen 325 mg tablet RxNorm: 212999 1 Tablet(s) PO Q6 as needed 08/15/2016 09/08/2016 Inactive hydrocodone 10 mg-acetaminophen 325 mg tablet RxNorm: 225854 1 Tablet(s) PO Q6 as needed 07/18/2016 08/14/2016 Inactive Cymbalta 30 mg capsule,delayed release RxNorm: 428466 1 Capsule(s) PO daily 07/03/2016 09/07/2016 Inactive Aricept 5 mg tablet RxNorm: 568533 1 Tablet(s) PO daily 201608/01/2016 Inactive Namenda XR 28 mg capsule sprinkle,extended release RxNorm: 029823 1 Capsule(s) PO daily 07/03/2016 05/07/2017 Inactive diazepam 5 mg tablet RxNorm: 500590 Tablet(s) PO daily as needed TAKE 1/2 TO 1 TABLET BY MOUTH DAILY NEEDED FOR ANXIETY 06/25/2016 03/06/2017 Inactive hydrocodone 10 mg-acetaminophen 325 mg tablet RxNorm: 109963 1 Tablet(s) PO Q6 as needed 06/19/2016 07/17/2016 Inactive Namenda XR 28 mg capsule sprinkle,extended release RxNorm: 244571 1 Capsule(s) PO daily 06/19/2016 07/02/2016 Inactive gabapentin 100 mg capsule RxNorm: 334201 1 Capsule(s) PO TID 03/08/2017 Inactive hydrocodone 10 mg-acetaminophen 325 mg tablet RxNorm: 325765 1 Tablet(s) PO Q6 as needed 05/27/2016 06/18/2016 Inactive diazepam 5 mg tablet RxNorm: 835562 Tablet(s) TAKE 1/2 TO 1 TABLET BY MOUTH DAILY NEEDED FOR ANXIETY 05/15/20162016 Inactive hydrocodone 10 mg-acetaminophen 325 mg tablet RxNorm: 674365 1 Tablet(s) PO Q6 as needed 04/29/2016 05/26/2016 Inactive omeprazole 40 mg capsule,delayed release RxNorm: 662600 Capsule(s) 1 CAPSULE(S) PO DAILY 04/28/2016 03/08/2017 Inactive diazepam 5 mg tablet RxNorm: 573824 Tablet(s) TAKE 1/2 TO 1 TABLET BY MOUTH DAILY NEEDED FOR ANXIETY 04/14/20162015 Inactive hydrocodone 10 mg-acetaminophen 325 mg tablet RxNorm: 459099 1 Tablet(s) PO Q6 as needed 04/01/2016 04/28/2016 Inactive Namenda XR 28 mg capsule sprinkle,extended release RxNorm: 956517 1 Capsule(s) PO daily 03/13/2016 06/18/2016 Inactive Namenda XR 28 mg capsule sprinkle,extended release RxNorm: 187729 1 Capsule(s) PO daily 03/12/2016 03/12/2016 Inactive diazepam 5 mg tablet RxNorm: 629447 Tablet(s) TAKE 1/2 TO 1 TABLET BY MOUTH DAILY NEEDED FOR ANXIETY 02/25/20162015 Inactive Namenda XR 28 mg capsule sprinkle,extended release RxNorm: 339556 1 Capsule(s) PO daily 02/04/2016 03/11/2016 Inactive hydrocodone 10 mg-acetaminophen 325 mg tablet RxNorm: 822400 1 Tablet(s) PO Q6 as needed 02/04/2016 03/04/2016 Inactive omeprazole 40 mg capsule,delayed release RxNorm: 030220 1 CAPSULE(S) PO DAILY 01/23/2016 04/27/2016 Inactive [SAVINGS FOR NON-COVERED DRUGS -- BIN:[id number], PCN: ASPROD1, Group: XXXXX, ID# XXXXXXX, Questions: . THIS IS NOT INSURANCE.] sertraline 50 mg tablet RxNorm: 141139 TAKE 1 1/2 TABLET BY MOUTH ONCE DAILY 01/10/2016 03/08/2017 Inactive hydrocodone 10 mg-acetaminophen 325 mg tablet RxNorm: 095930 1 Tablet(s) PO Q6 as needed 01/07/2016 02/03/2016 Inactive diazepam 5 mg tablet RxNorm: 414640 Tablet(s) TAKE 1/2 TO 1 TABLET BY MOUTH DAILY NEEDED FOR ANXIETY 12/17/20152015 Inactive hydrocodone 10 mg-acetaminophen 325 mg tablet RxNorm: 061401 1 Tablet(s) PO Q6 as needed 12/10/2015 01/06/2016 Inactive gabapentin 100 mg capsule RxNorm: 378286 1 Capsule(s) PO TID 03/11/2016 Inactive gabapentin 100 mg capsule RxNorm: 369230 1 Capsule(s) PO TID 11/12/2015 Inactive hydrocodone 10 mg-acetaminophen 325 mg tablet RxNorm: 276257 1 Tablet(s) PO Q6 as needed 11/12/2015 12/09/2015 Inactive hydrocodone 10 mg-acetaminophen 325 mg tablet RxNorm: 479663 1 Tablet(s) PO Q6 as needed 10/16/2015 11/11/2015 Inactive hydrocodone 10 mg-acetaminophen 325 mg tablet RxNorm: 176368 1 Tablet(s) PO Q6 as needed 09/17/2015 10/15/2015 Inactive hydrocodone 10 mg-acetaminophen 325 mg tablet RxNorm: 953458 1 Tablet(s) PO Q6 as needed 08/16/2015 09/16/2015 Inactive diazepam 5 mg tablet RxNorm: 615676 Tablet(s) TAKE 1/2 TO 1 TABLET BY MOUTH DAILY NEEDED FOR ANXIETY 07/30/20152015 Inactive diazepam 5 mg tablet RxNorm: 812342 Tablet(s) TAKE 1/2 TO 1 TABLET BY MOUTH DAILY NEEDED FOR ANXIETY 07/27/20152015 Inactive hydrocodone 10 mg-acetaminophen 325 mg tablet RxNorm: 609951 1 Tablet(s) PO Q6 as needed 07/19/2015 08/15/2015 Inactive omeprazole 40 mg capsule,delayed release RxNorm: 513847 1 CAPSULE(S) PO DAILY 07/19/2015 01/14/2016 Inactive [SAVINGS FOR NON-COVERED DRUGS -- BIN:[id number], PCN: ASPROD1, Group: XXXXX, ID# [id number], Questions: . THIS IS NOT INSURANCE.] hydrocodone 10 mg-acetaminophen 325 mg tablet RxNorm: 604767 1 Tablet(s) PO Q6 as needed 06/20/2015 07/18/2015 Inactive baclofen 10 mg tablet RxNorm: 716831 1 Tablet(s) PO TID 201506/07/2015 Inactive baclofen 10 mg tablet RxNorm: 470127 1 Tablet(s) PO TID 201507/07/2015 Inactive diazepam 5 mg tablet RxNorm: 992732 TAKE 1/2 TO 1 TABLET BY MOUTH DAILY NEEDED FOR ANXIETY 05/29/2015 07/26/2015 Inactive sertraline 50 mg tablet RxNorm: 788204 1.5 Tablet(s) PO daily 05/02/2015 10/28/2015 Inactive sertraline 50 mg tablet RxNorm: 732623 1.5 Tablet(s) PO daily 05/01/2015 05/01/2015 Inactive patient to call when needed diazepam 5 mg tablet RxNorm: 154530 1/2-1 Tablet(s) PO QDAY PRN 05/01/2015 05/29/2015 Inactive hydrocodone 10 mg-acetaminophen 325 mg tablet RxNorm: 783708 1 Tablet(s) PO Q6 as needed 04/23/2015 06/19/2015 Inactive hydrocodone 10 mg-acetaminophen 325 mg tablet RxNorm: 962241 1 Tablet(s) PO Q6 as needed 03/26/2015 04/22/2015 Inactive hydrocodone 10 mg-acetaminophen 325 mg tablet RxNorm: 529559 1 Tablet(s) PO Q6 as needed 02/26/2015 03/25/2015 Inactive Lyrica 50 mg capsule RxNorm: 684550 1 Capsule(s) PO TID 201402/03/2016 Inactive Lyrica 50 mg capsule RxNorm: 753758 1 Capsule(s) PO TID 201402/05/2015 Inactive Fish Oil [place] 3-6-9 300 mg-1,000 mg capsule,delayed release RxNorm: 1 Capsule(s) PO BID 01/30/2015 08/10/2016 Inactive diazepam 5 mg tablet RxNorm: 996306 1 Tablet(s) PO Q8 as needed 01/30/2015 04/30/2015 Inactive hydrocodone 10 mg-acetaminophen 325 mg tablet RxNorm: 290259 1 Tablet(s) PO Q6 as needed 01/19/2015 02/25/2015 Inactive sertraline 50 mg tablet RxNorm: 600636 1 Tablet(s) PO daily 04/30/2015 Inactive hydrocodone 10 mg-acetaminophen 325 mg tablet RxNorm: 999058 1 Tablet(s) PO Q6 as needed 12/12/2014 01/18/2015 Inactive hydrocodone 10 mg-acetaminophen 325 mg tablet RxNorm: 982027 1 Tablet(s) PO Q6 as needed 11/09/2014 12/11/2014 Inactive diazepam 5 mg tablet RxNorm: 075358 1 Tablet(s) PO Q8 as needed 11/01/2014 01/29/2015 Inactive omeprazole 40 mg capsule,delayed release RxNorm: 100311 1 Capsule(s) PO daily 10/02/2014 04/30/2015 Inactive [SAVINGS FOR NON-COVERED DRUGS -- BIN:307882, PCN: ASPROD1, Group: XXXXX, ID# [id number], Questions: . THIS IS NOT INSURANCE.] omeprazole 40 mg capsule,delayed release RxNorm: 015328 1 Capsule(s) PO daily 10/02/2014 10/01/2014 Inactive melatonin 3 mg tablet RxNorm: 965688 1 Tablet(s) PO QHS No Start Date Active Vitamin D3 oral RxNorm : 2418 oral No Start Date Active diclofenac sodium 75 mg tablet,delayed release RxNorm: 917899 2 Tablet(s) PO daily No Start Date 04/30/2015 Inactive diazepam 5 mg tablet RxNorm: 581057 1 Tablet(s) PO TID No Start Date 10/31/2014 Inactive Multi Vitamin oral RxNorm: oral No Start Date 03/08/2017 Inactive Flonase nasal RxNorm: 52493 nasal No Start Date 03/08/2017 Inactive gabapentin 100 mg tablet RxNorm: 117557 1 Tablet(s) PO TID No Start Date 02/06/2015 Inactive hydrocodone 10 mg-acetaminophen 325 mg tablet RxNorm: 427671 1 Tablet(s) PO QID No Start Date 11/08/2014 Inactive Zithromax Z-Myles 250 mg tablet RxNorm: 583324 1 Tablet(s) PO UD No Start Date 06/24/2017 Inactive clopidogrel 75 mg tablet RxNorm: 456704 1 Tablet(s) PO daily No Start Date 09/03/2016 Inactive atorvastatin 40 mg tablet RxNorm: 599224 1 Tablet(s) PO daily No Start Date 09/20/2017 Inactive sertraline 50 mg tablet RxNorm: 032456 1 Tablet(s) PO daily No Start Date [...] Ord21 ESR 2 mm/hr 11/04/2017 Comp Metabolic Dvm494 NA 143 mEq/L 08/28/2017 Comp Metabolic Wme158 K 4.2 mEq/L 08/28/2017 Comp Metabolic Jhx043 CL 108 mEq/L 08/28/2017 Comp Metabolic Vas687 CO2 28.0 mEq/L 08/28/2017 Comp Metabolic Thn970 ANION GAP 11 08/28/2017 Comp Metabolic Vez704 GLUCOSE 89 mg/dL 08/28/2017 Comp Metabolic Kzr214 Creat 0.8 mg/dL 08/28/2017 Comp Metabolic Ofr349 eGFR 78 ml/min/1.73m2 08/28/2017 Comp Metabolic Ati446 BUN 19 mg/dL 08/28/2017 Comp Metabolic Wfj890 B/C Ratio 24.4 Ratio 08/28/2017 Comp Metabolic Bkt265 CALCIUM 8.4 mg/dL 08/28/2017 Comp Metabolic Xys329 ALK PHOS 52 U/L 08/28/2017 Comp Metabolic Kbl673 AST(SGOT) 20 U/L 08/28/2017 Comp Metabolic Okk488 ALT(SGPT) 14 U/L 08/28/2017 Comp Metabolic Dcj571 BILI T 0.5 mg/dL 08/28/2017 Comp Metabolic Nuy818 ALBUMIN 4.0 g/dL 08/28/2017 Comp Metabolic Rer205 TPRO 5.9 g/dL 08/28/2017 Comp Metabolic Zwf352 GLOB 1.9 g/dL 08/28/2017 Comp Metabolic Znm517 A/G Ratio 2.1 Ratio 08/28/2017 Comp Metabolic Dkr178 Osmo 287 mOsmo 08/28/2017 Cbc With Differential [...] 30.9 pg 08/28/2017 Cbc With Differential Ord2 [place]% 5.9 % 08/28/2017 Cbc With Differential Ord2 [...] 2.28 K/ul 08/28/2017 Cbc With Differential Ord2 [place] ABS# 0.4 K/ul 08/28/2017 Cbc With Differential [...] 31.7 pg 03/09/2017 Cbc With Differential Ord2 [place]% 6.1 % 03/09/2017 Cbc With Differential Ord2 [...] 1.78 K/ul 03/09/2017 Cbc With Differential Ord2 [place] ABS# 0.4 K/ul 03/09/2017 Cbc With Differential Ord2 Eos ABS# 0.1 K/ul 03/09/2017 Cbc With Differential Ord2 Baso ABS# 0.0 K/ul 03/09/2017 Tsh Ord6 hTSH II 0.87 uIU/mL 03/09/2017 %Hba1C Mkw190 % HbA1c 80516-0 4.9 % 03/09/2017 %Hba1C Uai333 Gluc Ave 94 mg/dL 03/09/2017 Comp Metabolic Jxj549 NA 141 mEq/L 03/09/2017 Comp Metabolic Bdg352 K 3.8 mEq/L 03/09/2017 Comp Metabolic Ubj376 CL 105 mEq/L 03/09/2017 Comp Metabolic Msz044 CO2 29.0 mEq/L 03/09/2017 Comp Metabolic Avf325 ANION GAP 11 03/09/2017 Comp Metabolic Rvz651 GLUCOSE 98 mg/dL 03/09/2017 Comp Metabolic Eub785 Creat 0.7 mg/dL 03/09/2017 Comp Metabolic Efs331 eGFR 93 ml/min/1.73m2 03/09/2017 Comp Metabolic Ona292 BUN 11 mg/dL 03/09/2017 Comp Metabolic Vww444 B/C Ratio 16.4 Ratio 03/09/2017 Comp Metabolic Nsi320 CALCIUM 9.5 mg/dL 03/09/2017 Comp Metabolic Hgu416 ALK PHOS 90 U/L 03/09/2017 Comp Metabolic Bjq682 AST(SGOT) 21 U/L 03/09/2017 Comp Metabolic Xiz647 ALT(SGPT) 15 U/L 03/09/2017 Comp Metabolic Jeh895 BILI T 0.6 mg/dL 03/09/2017 Comp Metabolic Dxy461 ALBUMIN 4.5 g/dL 03/09/2017 Comp Metabolic Lrr412 TPRO 6.4 g/dL 03/09/2017 Comp Metabolic Qtn329 GLOB 1.9 g/dL 03/09/2017 Comp Metabolic Uvn045 A/G Ratio 2.3 Ratio 03/09/2017 Comp Metabolic Yli212 Osmo 281 mOsmo 03/09/2017 Comp Metabolic Zvf253 NA 142 mEq/L 09/03/2016 Comp Metabolic Rzj288 K 3.9 mEq/L 09/03/2016 Comp Metabolic Imj259 CL 107 mEq/L 09/03/2016 Comp Metabolic Wfy753 CO2 26.0 mEq/L 09/03/2016 Comp Metabolic Gar567 ANION GAP 13 09/03/2016 Comp Metabolic Gwg385 GLUCOSE 107 mg/dL 09/03/2016 Comp Metabolic Sqj657 Creat 0.7 mg/dL 09/03/2016 Comp Metabolic Kku918 eGFR 85 ml/min/1.73m2 09/03/2016 Comp Metabolic Bvp188 BUN 16 mg/dL 09/03/2016 Comp Metabolic Uwf736 B/C Ratio 21.9 Ratio 09/03/2016 Comp Metabolic Jlm580 CALCIUM 8.8 mg/dL 09/03/2016 Comp Metabolic Qjm284 ALK PHOS 51 U/L 09/03/2016 Comp Metabolic Bvo755 AST(SGOT) 24 U/L 09/03/2016 Comp Metabolic Vrl982 ALT(SGPT) 20 U/L 09/03/2016 Comp Metabolic Jlr303 BILI T 0.7 mg/dL 09/03/2016 Comp Metabolic Rtp263 ALBUMIN 4.1 g/dL 09/03/2016 Comp Metabolic Zdh250 TPRO 6.1 g/dL 09/03/2016 Comp Metabolic Fgi038 GLOB 2.0 g/dL 09/03/2016 Comp Metabolic Oag355 A/G Ratio 2.1 Ratio 09/03/2016 Comp Metabolic Vrf404 Osmo 285 mOsmo 09/03/2016 Cbc With Differential [...] 30.3 pg 09/03/2016 Cbc With Differential Ord2 [place]% 6.5 % 09/03/2016 Cbc With Differential Ord2 [...] 1.53 K/ul 09/03/2016 Cbc With Differential Ord2 [place] ABS# 0.4 K/ul 09/03/2016 Cbc With Differential [...] Ord15 CALCIUM 9.1 mg/dL 12/21/2015 Comp Metabolic Dzv732 NA 138 mEq/L 07/06/2015 Comp Metabolic Lyc804 K 3.9 mEq/L 07/06/2015 Comp Metabolic Veh604 CL 103 mEq/L 07/06/2015 Comp Metabolic Mtr547 CO2 28.0 mEq/L 07/06/2015 Comp Metabolic Ybm440 ANION GAP 11 07/06/2015 Comp Metabolic Kwq403 GLUCOSE 114 mg/dL 07/06/2015 Comp Metabolic Hvd771 Creat 0.7 mg/dL 07/06/2015 Comp Metabolic Squ287 eGFR 97 ml/min/1.73m2 07/06/2015 Comp Metabolic Fvr942 BUN 11 mg/dL 07/06/2015 Comp Metabolic Qvm496 B/C Ratio 16.9 Ratio 07/06/2015 Comp Metabolic Azb931 CALCIUM 9.1 mg/dL 07/06/2015 Comp Metabolic Fao653 ALK PHOS 57 U/L 07/06/2015 Comp Metabolic Xso714 AST(SGOT) 26 U/L 07/06/2015 Comp Metabolic Rdu351 ALT(SGPT) 17 U/L 07/06/2015 Comp Metabolic Ddv885 BILI T 0.6 mg/dL 07/06/2015 Comp Metabolic Mgu268 ALBUMIN 4.6 g/dL 07/06/2015 Comp Metabolic Jxs024 TPRO 6.7 g/dL 07/06/2015 Comp Metabolic Cdr400 GLOB 2.1 g/dL 07/06/2015 Comp Metabolic Mch335 A/G Ratio 2.2 Ratio 07/06/2015 Comp Metabolic Hqg853 Osmo 276 mOsmo 07/06/2015 Lipid Ord30 CHOL 228 mg/dL 07/06/2015 Lipid Ord30 HDL 48.0 mg/dl 07/06/2015 Lipid Ord30 TRIG 176 mg/dL 07/06/2015 Lipid Ord30 LDL 145 mg/dL 07/06/2015 Lipid Ord30 C/HDL 4.8 Ratio 07/06/2015 Tsh Ord6 hTSH II 0.74 uIU/mL 05/01/2015 Comp Metabolic Yzl273 NA 141 mEq/L 05/01/2015 Comp Metabolic Bya149 K 4.0 mEq/L 05/01/2015 Comp Metabolic Tsx884 CL 106 mEq/L 05/01/2015 Comp Metabolic Frm844 CO2 26.0 mEq/L 05/01/2015 Comp Metabolic Cvr094 ANION GAP 13 05/01/2015 Comp Metabolic Zfi334 GLUCOSE 124 mg/dL 05/01/2015 Comp Metabolic Ucb366 Creat 0.8 mg/dL 05/01/2015 Comp Metabolic Uks359 eGFR 79 ml/min/1.73m2 05/01/2015 Comp Metabolic Bsl889 BUN 13 mg/dL 05/01/2015 Comp Metabolic Nzp204 B/C Ratio 16.7 Ratio 05/01/2015 Comp Metabolic Bsu963 CALCIUM 9.3 mg/dL 05/01/2015 Comp Metabolic Veq830 ALK PHOS 54 U/L 05/01/2015 Comp Metabolic Tfi194 AST(SGOT) 21 U/L 05/01/2015 Comp Metabolic Uha011 ALT(SGPT) 14 U/L 05/01/2015 Comp Metabolic Dsz669 BILI T 0.5 mg/dL 05/01/2015 Comp Metabolic Ien247 ALBUMIN 4.5 g/dL 05/01/2015 Comp Metabolic Sjz525 TPRO 6.4 g/dL 05/01/2015 Comp Metabolic Hok093 GLOB 1.9 g/dL 05/01/2015 Comp Metabolic Xue147 A/G Ratio 2.4 Ratio 05/01/2015 Comp Metabolic Srk249 Osmo 283 mOsmo 05/01/2015 Cbc With Differential [...] Differential Ord2 RDW 16.8 % 05/01/2015 %Hba1C Mhu862 % HbA1c 91393-3 5.4 % 01/29/2015 %Hba1C Oit375 Gluc Ave 108 mg/dL 01/29/2015 Lipid Ord30 CHOL 221 mg/dL 01/26/2015 Lipid Ord30 HDL 37.0 mg/dl 01/26/2015 Lipid Ord30 TRIG 274 mg/dL 01/26/2015 Lipid Ord30 LDL 129 mg/dL 01/26/2015 Lipid Ord30 C/HDL 6.0 Ratio 01/26/2015 Tsh Ord6 hTSH II 0.85 uIU/mL 01/26/2015 Comp Metabolic Lnx256 NA 137 mEq/L 01/26/2015 Comp Metabolic Nww173 K 4.0 mEq/L 01/26/2015 Comp Metabolic Wmk737 CL 104 mEq/L 01/26/2015 Comp Metabolic Xqq722 CO2 27.0 mEq/L 01/26/2015 Comp Metabolic Oam247 ANION GAP 10 01/26/2015 Comp Metabolic Guv525 GLUCOSE 131 mg/dL 01/26/2015 Comp Metabolic Gee241 Creat 0.8 mg/dL 01/26/2015 Comp Metabolic Jlh430 eGFR 77 ml/min/1.73m2 01/26/2015 Comp Metabolic Blr892 BUN 16 mg/dL 01/26/2015 Comp Metabolic Obl391 B/C Ratio 20.0 Ratio 01/26/2015 Comp Metabolic Czd469 CALCIUM 9.1 mg/dL 01/26/2015 Comp Metabolic Khu077 ALK PHOS 66 U/L 01/26/2015 Comp Metabolic Kuc546 AST(SGOT) 24 U/L 01/26/2015 Comp Metabolic Yju279 ALT(SGPT) 20 U/L 01/26/2015 Comp Metabolic Eye291 BILI T 0.4 mg/dL 01/26/2015 Comp Metabolic Ckw584 ALBUMIN 4.2 g/dL 01/26/2015 Comp Metabolic Nre574 TPRO 6.4 g/dL 01/26/2015 Comp Metabolic Cxk311 GLOB 2.2 g/dL 01/26/2015 Comp Metabolic Vmb313 A/G Ratio 1.9 Ratio 01/26/2015 Comp Metabolic Hhp114 Osmo 277 mOsmo 01/26/2015 Cbc With Differential [...] Differential Ord2 RDW 15.5 % 01/26/2015 B12 Oci374 B12 669.00 pg/ml 01/26/2015 Review of Systems [...] NO PRSV 4 BLANCA 3 YRS+ CPT-4: 44576 02/22/2018 ADMIN INFLUENZA VIRUS VAC CPT-4: G0008 03/18/2017 FLU VACC PRSV FREE INC ANTIG CPT-4: 71444 03/18/2017 INITIAL PREVENTIVE EXAM CPT-4: G0402 07/06/2015 IIV4 FLU VACC NO PRESERV ID Formatting Model/CDA Sections, Assigned to SNOMED CT: [id number] CPT-4: 25148Mjwevck 03/26/2015 IMMUNIZATION ADMIN CPT -4: 19343 03/26/2015 Vital Signs Date Vital 02/22/2018 Blood Pressure 1: 140/70 Code : 8480-6 BMI: 26.3 Code : 35822-2 Heart Rate 1 : 60 bpm Height: 5'1" SpO2: 97% Weight: 139 lbs 12/29/2017 Blood Pressure 1: 110/58 Code : 8480-6 BMI: 23.8 Code : 80228-7 Heart Rate 1 : 56 bpm Height: 5'1" SpO2: 98% Weight: 126 lbs 10/28/2017 Blood Pressure 1: 96/68 Code : 8480-6 BMI: 21.7 Code : 63194-1 Heart Rate 1 : 68 bpm Height: 5'1" SpO2: 98% Weight: 115 lbs 09/23/2017 Blood Pressure 1: 134/72 Code : 8480-6 BMI: 22.5 Code : 77599-7 Heart Rate 1 : 72 bpm Height: 5'1" SpO2: 97% Weight: 119 lbs 03/18/2017 Blood Pressure 1: 140/72 Code : 8480-6 BMI: 21.5 Code : 78366-0 Heart Rate 1 : 64 bpm Height: 5'1" SpO2: 96% Weight: 114 lbs 03/09/2017 Blood Pressure 1: 120/72 Code : 8480-6 BMI: 21.5 Code : 07797-1 Heart Rate 1 : 75 bpm Height: 5'1" SpO2: 97% Weight: 114 lbs 12/09/2016 Blood Pressure 1: 130/76 Code : 8480-6 BMI: 23.8 Code : 24805-0 Heart Rate 1 : 68 bpm Height: 5'1" SpO2: 98% Weight: 126 lbs 09/08/2016 Blood Pressure 1: 162/80 Code : 8480-6 Blood Pressure 2: 145/90 Code: 8480-6 BMI: 24.7 Code: 10541-8 Heart Rate 1: 77 bpm Height: 5'1" SpO2: 97% Weight: 130 lbs 8 oz 08/11/2016 Blood Pressure 1: 130/80 Code : 8480-6 BMI: 25.9 Code : 92801-4 Heart Rate 1 : 62 bpm Height: 5'1" SpO2: 97% Weight: 137 lbs 07/03/2016 Blood Pressure 1: 134/74 Code : 8480-6 BMI: 26.8 Code : 97974-9 Heart Rate 1 : 74 bpm Height: 5'1" SpO2: 97% Weight: 142 lbs 06/19/2016 Blood Pressure 1: 118/66 Code : 8480-6 Heart Rate 1: 72 bpm SpO2: 96% Weight: 142 lbs 02/04/2016 Blood Pressure 1: 130/80 Code : 8480-6 BMI: 27.2 Code : 44809-6 Heart Rate 1 : 76 bpm Height: 5'1" SpO2: 96% Weight: 144 lbs 01/07/2016 Blood Pressure 1: 136/64 Code : 8480-6 BMI: 27.6 Code : 96753-2 Heart Rate 1 : 73 bpm Height: 5'1" SpO2: 987% Weight: 146 lbs 12/17/2015 Blood Pressure 1: 128/86 Code : 8480-6 BMI: 27.0 Code : 58185-2 Heart Rate 1 : 59 bpm Height: 5'1" SpO2: 96% Weight: 143 lbs 10/16/2015 Blood Pressure 1: 122/78 Code : 8480-6 BMI: 25.7 Code : 20369-6 Heart Rate 1 : 71 bpm Height: 5'1" SpO2: 96% Weight: 136 lbs 08/16/2015 Blood Pressure 1: 138/88 Code : 8480-6 BMI: 27.0 Code : 94450-2 Heart Rate 1 : 75 bpm Height: 5'1" SpO2: 98% Weight: 143 lbs 07/06/2015 Blood Pressure 1: 120/72 Code : 8480-6 BMI: 26.5 Code : 87747-2 Heart Rate 1 : 72 bpm Height: 5'1" SpO2: 96% Weight: 140 lbs 06/07/2015 Blood Pressure 1: 152/86 Code : 8480-6 BMI: 26.1 Code : 83154-9 Heart Rate 1 : 88 bpm Height: 5'1" SpO2: 97% Weight: 138 lbs 05/01/2015 Blood Pressure 1: 120/80 Code : 8480-6 BMI: 27.0 Code : 69883-0 Heart Rate 1 : 82 bpm Height: 5'1" SpO2: 98% Temperature: 36.7 (C) / 98.0 (F) Weight: 143 lbs 03/26/2015 Blood Pressure 1: 140/80 Code : 8480-6 BMI: 28.0 Code : 66558-7 Heart Rate 1 : 69 bpm Height: 5'1" SpO2: 96% Weight: 148 lbs 03/13/2015 Blood Pressure 1: 128/70 Code : 8480-6 BMI: 28.2 Code : 06936-4 Heart Rate 1 : 76 bpm Height: 5'1" Weight: 149 lbs 01/30/2015 Blood Pressure 1: 142/68 Code : 8480-6 BMI: 28.7 Code : 47853-9 Heart Rate 1 : 86 bpm Height: 5'1" SpO2: 96% Weight: 152 lbs 10/16/2014 Blood Pressure 1: 160/88 Code : 8480-6 BMI: 28.2 Code : 84227-0 Heart Rate 1 : 66 bpm Height: [...] Date EST. 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 PATIENT, LEVEL IV Diagnosis: Dementia in other diseases classified elsewhere without behavioral disturbance[ICD10: F02.80] Diagnosis: Major depressive disorder, recurrent, mild[ICD10: F33.0] Diagnosis: Other allergic rhinitis[ICD10: J30.89] [facility] CPT-4: 67156 12/29/2017 ([id number]) 06912 EST. PATIENT, LEVEL IV Diagnosis: Dementia in other diseases classified elsewhere without behavioral disturbance[ICD10: F02.80] Diagnosis: Major depressive disorder, recurrent, mild[ICD10: F33.0] Diagnosis: Allergy to other foods[ICD10: Z91.018] Marylu Ochoa MD, [facility] CPT-4: 87245 10/28/2017 10070 EST. 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 PATIENT, LEVEL IV Diagnosis: Essential (primary) hypertension[ICD10: I10] Diagnosis: Major depressive disorder, recurrent, moderate[ICD10: F33.1] Diagnosis: Underweight[ICD10: R63.6] Diagnosis: Localization-related (focal) (partial) symptomatic epilepsy and epileptic syndromes with simple partial seizures, not intractable, without status epilepticus[ICD10: G40.109] Marylu Ochoa MD, [facility] CPT-4: 96170 03/09/2017 ([id number]) 34517 EST. PATIENT, LEVEL IV Diagnosis: Mixed hyperlipidemia[ICD10: E78.2] Diagnosis: Chronic pain syndrome[ICD10: G89.4] Diagnosis: Major depressive disorder, recurrent, mild[ICD10: F33.0] Marylu Ochoa MD, [facility] CPT-4: 26610 12/09/2016 86721 10837 EST. PATIENT, LEVEL IV Diagnosis: Essential (primary) hypertension[ICD10: I10] Diagnosis: Low back pain[ICD10: M54.5] Diagnosis: Personal history of transient ischemic attack (TIA), and cerebral infarction without residual deficits[ICD10: Z86.73] Diagnosis: Major depressive disorder, recurrent, moderate[ICD10: F33.1] Diagnosis: Other sleep apnea[ICD10: G47.39] Marylu Ochoa MD, [facility] CPT-4: 69717 09/08/2016 ([id number]) 41721 EST. 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 PATIENT, LEVEL III Diagnosis: Chronic pain syndrome[ICD10: G89.4] Diagnosis: Low back pain[ICD10: M54.5] Diagnosis: Major depressive disorder, recurrent, mild[ICD10: F33.0] Diagnosis: Mild cognitive impairment, so stated[ICD10: G31.84] Angelica Ochoa MD, [facility] CPT-4: 47599 07/03/2016 ([id number]) 02362 EST. PATIENT, LEVEL III Diagnosis: Chronic pain syndrome[ICD10: G89.4] Donna Ochoa MD, [facility] CPT-4: 13058 06/19/2016 ([id number]) 90646 EST. PATIENT, LEVEL IV Diagnosis: Chronic pain syndrome[ICD10: G89.4] Diagnosis: Mild cognitive impairment, so stated[ICD10: G31.84] Donna Ochoa MD, [facility] CPT-4: 23060 02/04/2016 ([id number]) 65431 EST. PATIENT, LEVEL IV Diagnosis: Chronic pain syndrome[ICD10: G89.4] Diagnosis: Mild cognitive impairment, so stated[ICD10: G31.84] Diagnosis: Major depressive disorder, recurrent, mild[ICD10: F33.0] Donna Ochoa MD , [facility] CPT-4: 05309 01/07/2016 ([id number]) 50853 EST. PATIENT, LEVEL IV Diagnosis: Chronic pain syndrome[ICD10: G89.4] Diagnosis: Headache[ICD10: R51] Diagnosis: Major depressive disorder, recurrent, mild[ICD10: F33.0] Diagnosis: Mixed hyperlipidemia[ICD10: E78.2] Donna Ochoa MD, [facility] CPT-4: 47849 12/17/2015 ([id number]) 98992 EST. PATIENT, LEVEL III Diagnosis: Chronic pain syndrome[ICD10: G89.4] Diagnosis: Major depressive disorder, recurrent, mild[ICD10: F33.0] Donna Ochoa MD , [facility] CPT-4: 22655 10/16/2015 ([id number]) 08569 EST. PATIENT, LEVEL III Diagnosis: Low back pain[ICD10: M54.5] Donna Ochoa MD, [facility] CPT-4: 57026 08/16/2015 ([id number]) 61165 EST. 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 PATIENT, LEVEL IV Diagnosis: Major depressive disorder, recurrent, mild[ICD10: F33.0] Diagnosis: Chronic pain syndrome[ICD10: G89.4] Diagnosis: Other fatigue[ICD10: R53.83] Donna Ochoa MD, [facility] CPT-4: 53304 05/01/2015 ([id number]) 86658 EST. PATIENT, LEVEL II Diagnosis: Plantar fascial fibromatosis[ICD10: M72.2] Donna Ochoa MD, [facility] CPT-4: 51015 03/26/2015 ([id number]) 26480 EST. PATIENT, LEVEL III Diagnosis: Plantar fascial fibromatosis[ICD10: M72.2] Donna Ochoa MD, [facility] CPT-4: 69093 03/13/2015 ([id number]) 65127 EST. PATIENT, LEVEL III Diagnosis: Hyperlipidemia[ICD9: 272.4] Diagnosis: ALLERGIC RHINITIS[ICD9: 477.9] Diagnosis: Chronic pain syndrome[ICD9: 338.4] [facility] CPT-4: 68433 01/30/2015 ([id number]) OFFICE VISIT, NEW - LEVEL 4 Diagnosis: ESOPHAGEAL REFLUX[ICD9: 530.81] Diagnosis: Peripheral neuropathy[ICD9: 356.9] Diagnosis: Chronic pain syndrome[ICD9: 338.4] Diagnosis: OSTEOARTH NOS-UNSPEC[ICD9: 715.90] Diagnosis: DEPRESSIVE DISORDER NEC[ICD9: 311] [facility] CPT-4: 22460 10/16/2014 Plan of Care Planned Activity Notes [...] of treatment. 02/22/2018 Appointment: Angelica Cuba WPtel: [facility] (15 min) Moderate 02/22/2018 Appointment: Angelica Cuba WPtel: [facility] (15 min) Moderate 02/22/2018 Patient Education: Patient Medication Summary Completed 02/22/2018 Appointment: Angelica Cuba WPtel: [facility] (15 min) Moderate 02/18/2018 Visit Plan: Dementia [...] Completed 12/29/2017 Appointment: Angelica Cuba WPtel: [phone] [facility] (15 min) Moderate 12/23/2017 Patient Education: Patient [...] adalgisa. 10/28/2017 Appointment: Marylu Ochoa WPtel: [phone] [facility] (15 min) Moderate 10/28/2017 Patient Education: Patient [...] make a follow up appointment with her furniture dipper - The patient has been counseled to [...] WPtel: [phone] [facility] (30 min) Complex 09/23/2017 Patient Education: Patient Medication Summary Completed 09/23/2017 Appointment: Marylu [facility]choa [facility]Ptel: [phone] (15 min) Moderate 08/26/2017 Appointment: Angel[facility] [place] [facility]Ptel: [phone] (30 min) Complex 06/30/2017 Referral: External, Ordering Provider Referral Initiated 05/27/2017 Care Plan: Referral Order SNOMED-CT : [id number] Pending 04/20/2017 Visit Plan: Anxiety - the [...] make a follow up appointment with her furniture dipper - The patient has been counseled to [...] home. 03/09/2017 Appointment: Marylu Ochoa WPtel: [phone] [facility] (30 min) Complex 03/09/2017 Patient Education: Patient Medication Summary Completed 03/09/2017 Appointment: Donna Walden WPtel: [phone] [place] (30 min) Complex 03/06/2017 Appointment: Marylu Ochoa WPtel: [phone] (15 min) Moderate 01/08/2017 Visit Plan: Hyperlipidemia [...] Education: Patient Medication Summary Completed 12/09/2016 [place]: [place]: [phone] (15 min) Moderate 11/11/2016 Appointment: [place] Angelica WPtel: [phone] (30 min) Complex 10/09/2016 Visit Plan: Hypertension [...] - 90 day supply of Aricept through [facility], refill namenda Suspected sleep disordered breathing with [...] refill namenda 09/08/2016 Appointment: Marylu Ochoa WPtel: [phone] [facility] (15 min) Moderate 09/08/2016 Patient Education: Patient Medication Summary Completed 09/08/2016 Appointment: Angelica Cuba WPtel: [phone] [facility] (30 min) Complex 08/19/2016 Visit Plan: Hyperlipidemia [...] with plavix 08/11/2016 Appointment: Marylu Ochoa WPtel: [facility] (15 min) Moderate 08/11/2016 Patient Education: Patient [...] concerns. 07/03/2016 Appointment: Angelica Cuba WPtel: [phone] [facility] (30 min) Complex 07/03/2016 Patient Education: Patient Medication Summary Completed 07/03/2016 Care Plan: Referral Order SNOMED-CT : [id number] Pending 07/03/2016 Visit Plan: Chronic Pain Syndrome - pt has chronic pain - has been maintained on current medications, has not sought out other medications , only uses PRN pain medications as directed, and understands the consequences of over-medication. 06/19/2016 Appointment: Donna Walden WPtel: [phone] (30 min) Complex 06/19/2016 Patient Education: Patient Medication Summary Completed 06/19/2016 Appointment: Donna Walden WPtel: [facility] [address] (30 min) Complex 06/05/2016 Visit Plan: Chronic Pain Syndrome - pt has chronic pain - has been maintained on current medications, has not sought out other medications , only uses PRN pain medications as directed, and understands the consequences of over-medication. Mild cognitive impairment-discussed with Dr Arnulfo tam 02/04/2016 Appointment: Donna Walden WPtel: [phone] [facility] [place] [address] (30 min) Complex 02/04/2016 Patient Education: Patient Medication Summary Completed 02/04/2016 Appointment: Donna Walden WPtel: [facility] [address] (30 min) Complex 01/14/2016 Visit Plan: [...] after review of testing. 01/07/2016 Appointment: Donna aWlden WPtel: [facility] [address] (15 min) Moderate 01/07/2016 Patient Education: Patient Medication Summary Completed 01/07/2016 Visit Plan: Chronic Pain Syndrome - pt has chronic pain - has been maintained on current medications, has not sought out other medications , only uses PRN pain medications as directed, and understands the consequences of over-medication. Headaches-memory loss-schedule MRI brain Hyperlipidemia- check fasting labs Soyoxgfeoh-[id number] change in medications at this time 12/17/2015 Patient Education: Patient Medication Summary Completed 12/17/2015 Appointment: Donna Walden WPtel: [facility] [address] (30 min) Complex 12/13/2015 Visit Plan: [...] current medications. 10/16/2015 Appointment: Donna Walden WPtel: [facility] [address] (30 min) Complex 10/16/2015 Patient Education: [...] pain symptoms. 06/07/2015 Appointment: Marylu Ochoa WPtel: [address] [place], [place] [address] (15 min) Moderate 06/07/2015 Patient Education: Patient [...] shoes - discussed inserts and referral to yard spotter-patient wants to wait but will let us [...] pain symptoms. 10/16/2014 Appointment: Marylu Ochoa WPtel: [phone] [place] ([place] New Patient 10/16/2014 Patient Education: [...] make a follow up appointment with her furniture dipper - The patient has been counseled to [...] pain 90 day supply of Aricept through [employer] Add 50 mg Losartan daily for hypertension [...] - 90 day supply of Aricept through [facility], refill namenda Suspected sleep disordered breathing with episodes of nocturnal fits of not breathing correctly - pt advised of need for an overnight oxygen study to be done to see if there is nocturnal hypoxemia contributing to her memory loss, htn. Refill Cymbalta Voltaren gel for low back pain 90 day supply of Aricept through [employer] Add 50 mg Losartan daily for hypertension [...] - 90 day supply of Aricept through [facility], refill namenda mammogram order - given to patient - she is to schedule in [place] . Chronic Pain Syndrome - pt has [...] symptoms are not controlled with the medication. call back to the office to [...] Headaches-memory loss-schedule MRI brain Hyperlipidemia-check fasting labs [id number]-[id number] change in medications at this time INCREASE [...] supportive shoes -discussed inserts and referral to yard spotter-patient wants to wait but will let us [...] make a follow up appointment with her furniture dipper - The patient has been counseled to [...] the patient's termination from this medical practice. i want to have Roxy start on [...] adalgisa start on zyrtec instead of adalgisa. Namenda starter pack . Chronic Pain Syndrome [...] and understands the consequences of over- medication. . Esophageal Reflux - the patient [...]
--- OUTSIDE RECORDS SUMMARY | 2018-09-20 06:09 | XMS REPORT | CCD ---
Author Author Marylu Ochoa Organization Marylu Ochoa MD, [facility] Address [address] [place] [address] Phone Care Team Providers Care Well Tender Name Role Phone PP Unavailable CCM Unavailable Summary Purpose Interface Exchange Insurance Providers Payer name Policy type / Coverage type Covered democrat ID Effective Begin Date Effective End Date WPS Medicare Part B Medicare Part B [id number] 2015 Unknown [facility] Medicare Part B [id number] 2015 Unknown Family history Mother Diagnosis Age [...] Unknown Retired 10/16/[address]: 031247152 Never smoker 10/16/[address]: 777876491 Never drinks alcohol 10/16/2014 Allergies, Adverse Reactions, Alerts Substance Reaction Codes Entered Date Inactivated Date Status Penicillin Unknown 10/16/2014 No Inactive Date Active Past Medical History Illness Codes Condition Status Onset Date Resolved Date Pain in unspecified joint ICD-9: 719.40 ICD-10: M25.50 Active 11/03/2017 Unknown Allergy to other foods ICD-9: V15.05 ICD-10: Z91.018 Active 10/28/2017 Unknown Dementia in other diseases classified elsewhere without behavioral disturbance ICD-9: 294.10 ICD-10: F02.80 Active 10/28/2017 Unknown Major depressive disorder, recurrent, mild ICD-9: 296.31 ICD-10: F33.0 Active 01/06/2016 Unknown Encounter for immunization ICD-9: V04.81 ICD-10: [...] Problems Condition Codes Effective Dates Condition Status Pain in unspecified joint ICD-9: 719.40 ICD-10: M25.50 11/03/2017 Active Allergy to other foods ICD-9: V15.05 ICD-10: Z91.018 10/28/2017 Active Dementia in other diseases classified elsewhere without behavioral disturbance ICD-9: 294.10 ICD-10: F02.80 10/28/2017 Active Major depressive disorder, recurrent, mild ICD-9: 296.31 ICD-10: F33.0 01/06/2016 Active Encounter for immunization ICD-9: V04.81 ICD-10: [...] Start Date Stop Date Status Fill Instructions levetiracetam 500 mg tablet RxNorm: 120895 1 TABLET(S) PO BID 01/07/2018 04/06/2018 Active pt to finish out supply of liquid then start on tablets hydrocodone 10 mg-acetaminophen 325 mg tablet RxNorm: 443419 1 Tablet(s) PO Q6 as needed 12/29/2017 01/27/2018 Active hydrocodone 10 mg-acetaminophen 325 mg tablet RxNorm: 264336 1 Tablet(s) PO Q6 as needed 12/10/2017 12/28/2017 Inactive Zyrtec 10 mg tablet RxNorm: 8741105 1 Tablet(s) PO QAM for allergies 10/28/2017 05/25/2018 Active Zantac 75 mg tablet RxNorm: 016078 1 Tablet(s) PO BID 201702/24/2018 Active Aricept 10 mg tablet RxNorm: 523748 1 TABLET(S) PO DAILY 201702/23/2018 Active Cymbalta 30 mg capsule,delayed release RxNorm: 060900 1 Capsule(s) PO daily 10/22/2017 05/19/2018 Active hydrocodone 10 mg-acetaminophen 325 mg tablet RxNorm: 993125 1 Tablet(s) PO Q6 as needed 10/20/2017 11/18/2017 Inactive Voltaren 1 % topical gel RxNorm: 944926 4 Gram(s) TOP TID as needed for pain as needed 09/23/2017 09/17/2018 Active levetiracetam 500 mg tablet RxNorm: 524346 1 TABLET(S) PO BID 09/21/2017 10/20/2017 Inactive pt to finish out supply of liquid then start on tablets hydrocodone 10 mg-acetaminophen 325 mg tablet RxNorm: 254511 1 Tablet(s) PO Q6 as needed 08/27/2017 09/25/2017 Inactive Aricept 10 mg tablet RxNorm: 402464 1 Tablet(s) PO daily 201709/16/2017 Inactive Aricept 10 mg tablet RxNorm: 985234 1 Tablet(s) PO daily 201708/17/2017 Inactive hydrocodone 10 mg-acetaminophen 325 mg tablet RxNorm: 122288 1 Tablet(s) PO Q6 as needed 07/28/2017 08/26/2017 Inactive Zithromax Z-Myles 250 mg tablet RxNorm: 621053 1 Tablet(s) PO UD 06/25/2017 09/20/2017 Inactive hydrocodone 10 mg-acetaminophen 325 mg tablet RxNorm: 011129 1 Tablet(s) PO Q6 as needed 06/17/2017 07/16/2017 Inactive Namenda XR 28 mg capsule sprinkle,extended release RxNorm: 812542 1 Capsule(s) PO daily 05/08/2017 05/02/2018 Active Aricept 10 mg tablet RxNorm: 989866 1 Tablet(s) PO daily 201608/05/2017 Inactive hydrocodone 10 mg-acetaminophen 325 mg tablet RxNorm: 257855 1 Tablet(s) PO Q6 as needed 05/05/2017 06/03/2017 Inactive hydrocodone 10 mg-acetaminophen 325 mg tablet RxNorm: 040286 1 Tablet(s) PO Q6 as needed 04/06/2017 05/04/2017 Inactive diazepam 2 mg tablet RxNorm: 662996 1/2 - 1 Tablet(s) PO BID as needed 03/18/2017 09/20/2017 Inactive Cymbalta 30 mg capsule,delayed release RxNorm: 986885 1 Capsule(s) PO daily 03/09/2017 10/04/2017 Inactive levetiracetam 500 mg tablet RxNorm: 585974 1 Tablet(s) PO BID 03/09/2017 08/05/2017 Inactive pt to finish out supply of liquid then start on tablets Aricept 5 mg tablet RxNorm: 647965 1 Tablet(s) PO daily 201605/07/2017 Inactive pantoprazole 40 mg tablet,delayed release RxNorm: 083044 1 Tablet(s) PO daily 03/09/2017 07/06/2017 Inactive hydrocodone 10 mg-acetaminophen 325 mg tablet RxNorm: 071361 1 Tablet(s) PO Q6 as needed 12/04/2016 03/08/2017 Inactive hydrocodone 10 mg-acetaminophen 325 mg tablet RxNorm: 126118 1 Tablet(s) PO Q6 as needed 11/06/2016 12/03/2016 Inactive hydrocodone 10 mg-acetaminophen 325 mg tablet RxNorm: 764523 1 Tablet(s) PO Q6 as needed 10/08/2016 11/05/2016 Inactive Voltaren 1 % topical gel RxNorm: 229354 4 Gram(s) TOP TID as needed for pain as needed 09/25/2016 09/19/2017 Inactive hydrocodone 10 mg-acetaminophen 325 mg tablet RxNorm: 628654 1 Tablet(s) PO Q6 as needed 09/09/2016 10/07/2016 Inactive Voltaren 1 % topical gel RxNorm: 136042 1 Application TOP TID 09/08/2016 09/24/2016 Inactive Aricept 5 mg tablet RxNorm: 945175 1 Tablet(s) PO daily 201612/06/2016 Inactive Cymbalta 30 mg capsule,delayed release RxNorm: 830195 1 Capsule(s) PO daily 09/08/2016 12/06/2016 Inactive losartan 50 mg tablet RxNorm: 726643 1 Tablet(s) PO daily 201610/07/2016 Inactive clopidogrel 75 mg tablet RxNorm: 245535 75 MG PO DAILY 201609/20/2017 Inactive hydrocodone 10 mg-acetaminophen 325 mg tablet RxNorm: 104724 1 Tablet(s) PO Q6 as needed 08/15/2016 09/08/2016 Inactive hydrocodone 10 mg-acetaminophen 325 mg tablet RxNorm: 889744 1 Tablet(s) PO Q6 as needed 07/18/2016 08/14/2016 Inactive Cymbalta 30 mg capsule,delayed release RxNorm: 347709 1 Capsule(s) PO daily 07/03/2016 09/07/2016 Inactive Aricept 5 mg tablet RxNorm: 580289 1 Tablet(s) PO daily 201608/01/2016 Inactive Namenda XR 28 mg capsule sprinkle,extended release RxNorm: 403625 1 Capsule(s) PO daily 07/03/2016 05/07/2017 Inactive diazepam 5 mg tablet RxNorm: 892330 Tablet(s) PO daily as needed TAKE 1/2 TO 1 TABLET BY MOUTH DAILY NEEDED FOR ANXIETY 06/25/2016 03/08/2017 Inactive hydrocodone 10 mg-acetaminophen 325 mg tablet RxNorm: 067533 1 Tablet(s) PO Q6 as needed 06/19/2016 07/17/2016 Inactive Namenda XR 28 mg capsule sprinkle,extended release RxNorm: 822089 1 Capsule(s) PO daily 06/19/2016 07/02/2016 Inactive gabapentin 100 mg capsule RxNorm: 717549 1 Capsule(s) PO TID 03/08/2017 Inactive hydrocodone 10 mg-acetaminophen 325 mg tablet RxNorm: 869249 1 Tablet(s) PO Q6 as needed 05/27/2016 06/18/2016 Inactive diazepam 5 mg tablet RxNorm: 560296 Tablet(s) TAKE 1/2 TO 1 TABLET BY MOUTH DAILY NEEDED FOR ANXIETY 05/15/20162016 Inactive hydrocodone 10 mg-acetaminophen 325 mg tablet RxNorm: 936438 1 Tablet(s) PO Q6 as needed 04/29/2016 05/26/2016 Inactive omeprazole 40 mg capsule,delayed release RxNorm: 704120 Capsule(s) 1 CAPSULE(S) PO DAILY 04/28/2016 03/08/2017 Inactive diazepam 5 mg tablet RxNorm: 655866 Tablet(s) TAKE 1/2 TO 1 TABLET BY MOUTH DAILY NEEDED FOR ANXIETY 04/14/20162015 Inactive hydrocodone 10 mg-acetaminophen 325 mg tablet RxNorm: 309882 1 Tablet(s) PO Q6 as needed 04/01/2016 04/28/2016 Inactive Namenda XR 28 mg capsule sprinkle,extended release RxNorm: 856926 1 Capsule(s) PO daily 03/13/2016 06/18/2016 Inactive Namenda XR 28 mg capsule sprinkle,extended release RxNorm: 413377 1 Capsule(s) PO daily 03/12/2016 03/12/2016 Inactive diazepam 5 mg tablet RxNorm: 434858 Tablet(s) TAKE 1/2 TO 1 TABLET BY MOUTH DAILY NEEDED FOR ANXIETY 02/25/20162015 Inactive Namenda XR 28 mg capsule sprinkle,extended release RxNorm: 462402 1 Capsule(s) PO daily 02/04/2016 03/11/2016 Inactive hydrocodone 10 mg-acetaminophen 325 mg tablet RxNorm: 044805 1 Tablet(s) PO Q6 as needed 02/04/2016 03/04/2016 Inactive omeprazole 40 mg capsule,delayed release RxNorm: 804312 1 CAPSULE(S) PO DAILY 01/23/2016 04/27/2016 Inactive [SAVINGS FOR NON-COVERED DRUGS -- BIN:[id number], PCN: [id number], Group: XXXXX, ID# XXXXXXX, Questions: . THIS IS NOT INSURANCE.] sertraline 50 mg tablet RxNorm: 017857 TAKE 1 1/2 TABLET BY MOUTH ONCE DAILY 01/10/2016 03/08/2017 Inactive hydrocodone 10 mg-acetaminophen 325 mg tablet RxNorm: 084023 1 Tablet(s) PO Q6 as needed 01/07/2016 02/03/2016 Inactive diazepam 5 mg tablet RxNorm: 841174 Tablet(s) TAKE 1/2 TO 1 TABLET BY MOUTH DAILY NEEDED FOR ANXIETY 12/17/20152015 Inactive hydrocodone 10 mg-acetaminophen 325 mg tablet RxNorm: 077742 1 Tablet(s) PO Q6 as needed 12/10/2015 01/06/2016 Inactive gabapentin 100 mg capsule RxNorm: 016918 1 Capsule(s) PO TID 03/11/2016 Inactive gabapentin 100 mg capsule RxNorm: 642073 1 Capsule(s) PO TID 11/12/2015 Inactive hydrocodone 10 mg-acetaminophen 325 mg tablet RxNorm: 533198 1 Tablet(s) PO Q6 as needed 11/12/2015 12/09/2015 Inactive hydrocodone 10 mg-acetaminophen 325 mg tablet RxNorm: 699980 1 Tablet(s) PO Q6 as needed 10/16/2015 11/11/2015 Inactive hydrocodone 10 mg-acetaminophen 325 mg tablet RxNorm: 517160 1 Tablet(s) PO Q6 as needed 09/17/2015 10/15/2015 Inactive hydrocodone 10 mg-acetaminophen 325 mg tablet RxNorm: 822330 1 Tablet(s) PO Q6 as needed 08/16/2015 09/16/2015 Inactive diazepam 5 mg tablet RxNorm: 887279 Tablet(s) TAKE 1/2 TO 1 TABLET BY MOUTH DAILY NEEDED FOR ANXIETY 07/30/20152015 Inactive diazepam 5 mg tablet RxNorm: 440705 Tablet(s) TAKE 1/2 TO 1 TABLET BY MOUTH DAILY NEEDED FOR ANXIETY 07/27/20152015 Inactive hydrocodone 10 mg-acetaminophen 325 mg tablet RxNorm: 359737 1 Tablet(s) PO Q6 as needed 07/19/2015 08/15/2015 Inactive omeprazole 40 mg capsule,delayed release RxNorm: 433621 1 CAPSULE(S) PO DAILY 07/19/2015 01/14/2016 Inactive [SAVINGS FOR NON-COVERED DRUGS -- BIN:[id number], PCN: [id number], Group: XXXXX, ID# [id number], Questions: . THIS IS NOT INSURANCE.] hydrocodone 10 mg-acetaminophen 325 mg tablet RxNorm: 369621 1 Tablet(s) PO Q6 as needed 06/20/2015 07/18/2015 Inactive baclofen 10 mg tablet RxNorm: 967510 1 Tablet(s) PO TID 201506/07/2015 Inactive baclofen 10 mg tablet RxNorm: 205469 1 Tablet(s) PO TID 201507/07/2015 Inactive diazepam 5 mg tablet RxNorm: 203399 TAKE 1/2 TO 1 TABLET BY MOUTH DAILY NEEDED FOR ANXIETY 05/29/2015 07/26/2015 Inactive sertraline 50 mg tablet RxNorm: 482891 1.5 Tablet(s) PO daily 05/02/2015 10/28/2015 Inactive sertraline 50 mg tablet RxNorm: 406811 1.5 Tablet(s) PO daily 05/01/2015 05/01/2015 Inactive patient to call when needed diazepam 5 mg tablet RxNorm: 915397 1/2-1 Tablet(s) PO QDAY PRN 05/01/2015 05/29/2015 Inactive hydrocodone 10 mg-acetaminophen 325 mg tablet RxNorm: 724550 1 Tablet(s) PO Q6 as needed 04/23/2015 06/19/2015 Inactive hydrocodone 10 mg-acetaminophen 325 mg tablet RxNorm: 812190 1 Tablet(s) PO Q6 as needed 03/26/2015 04/22/2015 Inactive hydrocodone 10 mg-acetaminophen 325 mg tablet RxNorm: 991101 1 Tablet(s) PO Q6 as needed 02/26/2015 03/25/2015 Inactive Lyrica 50 mg capsule RxNorm: 587102 1 Capsule(s) PO TID 201402/03/2016 Inactive Lyrica 50 mg capsule RxNorm: 083187 1 Capsule(s) PO TID 201402/05/2015 Inactive Fish Oil [place] 3-6-9 300 mg-1,000 mg capsule,delayed release RxNorm: 1 Capsule(s) PO BID 01/30/2015 08/10/2016 Inactive diazepam 5 mg tablet RxNorm: 279177 1 Tablet(s) PO Q8 as needed 01/30/2015 04/30/2015 Inactive hydrocodone 10 mg-acetaminophen 325 mg tablet RxNorm: 829601 1 Tablet(s) PO Q6 as needed 01/19/2015 02/25/2015 Inactive sertraline 50 mg tablet RxNorm: 624103 1 Tablet(s) PO daily 04/30/2015 Inactive hydrocodone 10 mg-acetaminophen 325 mg tablet RxNorm: 662586 1 Tablet(s) PO Q6 as needed 12/12/2014 01/18/2015 Inactive hydrocodone 10 mg-acetaminophen 325 mg tablet RxNorm: 504174 1 Tablet(s) PO Q6 as needed 11/09/2014 12/11/2014 Inactive diazepam 5 mg tablet RxNorm: 132572 1 Tablet(s) PO Q8 as needed 11/01/2014 01/29/2015 Inactive omeprazole 40 mg capsule,delayed release RxNorm: 115403 1 Capsule(s) PO daily 10/02/2014 04/30/2015 Inactive [SAVINGS FOR NON-COVERED DRUGS -- BIN:[id number], PCN: ASPROD1, Group: XXXXX, ID# [id number], Questions: . THIS IS NOT INSURANCE.] omeprazole 40 mg capsule,delayed release RxNorm: 215953 1 Capsule(s) PO daily 10/02/2014 10/01/2014 Inactive Vitamin D3 oral RxNorm : 2418 oral No Start Date Active diclofenac sodium 75 mg tablet,delayed release RxNorm: 804124 2 Tablet(s) PO daily No Start Date 04/30/2015 Inactive diazepam 5 mg tablet RxNorm: 439800 1 Tablet(s) PO TID No Start Date 10/31/2014 Inactive Multi Vitamin oral RxNorm: oral No Start Date 03/08/2017 Inactive Flonase nasal RxNorm: 08329 nasal No Start Date 03/08/2017 Inactive gabapentin 100 mg tablet RxNorm: 539134 1 Tablet(s) PO TID No Start Date 02/06/2015 Inactive hydrocodone 10 mg-acetaminophen 325 mg tablet RxNorm: 777840 1 Tablet(s) PO QID No Start Date 11/08/2014 Inactive Zithromax Z-Myles 250 mg tablet RxNorm: 869368 1 Tablet(s) PO UD No Start Date 06/24/2017 Inactive clopidogrel 75 mg tablet RxNorm: 694797 1 Tablet(s) PO daily No Start Date 09/03/2016 Inactive atorvastatin 40 mg tablet RxNorm: 171945 1 Tablet(s) PO daily No Start Date 09/20/2017 Inactive sertraline 50 mg tablet RxNorm: 410664 1 Tablet(s) PO daily No Start Date 01/04/2015 Inactive Medication Administered No Medication Administered data Immunizations Vaccine Codes Date Status Influenza CVX: 141 03/18/2017 completed Influenza CVX: 141 06/16/2016 completed Influenza CVX: 141 03/26/2015 completed Influenza CVX: 141 02/15/2014 completed Assessments Condition Codes Effective Dates Pain in unspecified joint ICD-10: M25.50 ICD-9: 719.40 11/03/2017 Major depressive disorder, recurrent, mild ICD-10: F33.0 ICD-9: 296.31 10/28/2017 Allergy to other foods ICD-10: Z91.018 ICD-9: V15.05 10/28/2017 Dementia in other diseases classified elsewhere without behavioral disturbance ICD-10: F02.80 ICD-9: 294.10 10/28/2017 Essential (primary) hypertension ICD-10: I10 ICD-9: 401.1 09/23/2017 Generalized anxiety disorder ICD-10: F41.1 ICD-9: 300.00 09/23/2017 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 ICD-9: 435.2 09/23/2017 Major depressive disorder, recurrent, moderate ICD-10: F33.1 ICD-9: 296.32 09/23/2017 Encounter for immunization ICD-10: Z23 ICD-9: V04.81 03/18/2017 Dysuria ICD-10: R30.0 ICD-9: 788.1 03/17/2017 [...] Visit Reason For Visit Effective Dates Notes food allergy 10/28/2017 medication follow up 09/23/2017 [...] Ord21 ESR 2 mm/hr 11/04/2017 Comp Metabolic Xuq079 NA 143 mEq/L 08/28/2017 Comp Metabolic Chq424 K 4.2 mEq/L 08/28/2017 Comp Metabolic Pwz047 CL 108 mEq/L 08/28/2017 Comp Metabolic Zks050 CO2 28.0 mEq/L 08/28/2017 Comp Metabolic Bdu307 ANION GAP 11 08/28/2017 Comp Metabolic Dvw117 GLUCOSE 89 mg/dL 08/28/2017 Comp Metabolic Ofw479 Creat 0.8 mg/dL 08/28/2017 Comp Metabolic Jxl202 eGFR 78 ml/min/1.73m2 08/28/2017 Comp Metabolic Iwo863 BUN 19 mg/dL 08/28/2017 Comp Metabolic Osb564 B/C Ratio 24.4 Ratio 08/28/2017 Comp Metabolic Yau601 CALCIUM 8.4 mg/dL 08/28/2017 Comp Metabolic Gjy471 ALK PHOS 52 U/L 08/28/2017 Comp Metabolic Etl167 AST(SGOT) 20 U/L 08/28/2017 Comp Metabolic Paj937 ALT(SGPT) 14 U/L 08/28/2017 Comp Metabolic Ayr696 BILI T 0.5 mg/dL 08/28/2017 Comp Metabolic Tbn784 ALBUMIN 4.0 g/dL 08/28/2017 Comp Metabolic Xyl085 TPRO 5.9 g/dL 08/28/2017 Comp Metabolic Chx079 GLOB 1.9 g/dL 08/28/2017 Comp Metabolic Qec072 A/G Ratio 2.1 Ratio 08/28/2017 Comp Metabolic Bzi174 Osmo 287 mOsmo 08/28/2017 Tsh Ord6 TSH (3rd IS) 1.13 [...] 93.6 fl 08/28/2017 Cbc With Differential Ord2 MCH 30.9 pg 08/28/2017 Cbc With Differential Ord2 [place]% 5.9 % 08/28/2017 Cbc With Differential Ord2 MCHC 33.1 pg 08/28/2017 Cbc With Differential Ord2 Eos% 0.9 % 08/28/2017 Cbc With Differential Ord2 Baso% 0.5 % 08/28/2017 Cbc With Differential Ord2 PLT 190 K/ul 08/28/2017 Cbc With Differential Ord2 RDW 15.4 % 08/28/2017 Cbc With Differential Ord2 Neut ABS# 4.66 K/ul 08/28/2017 Cbc With Differential Ord2 Lymph ABS# 2.28 K/ul 08/28/2017 Cbc With Differential Ord2 [place] ABS# 0.4 K/ul 08/28/2017 Cbc With Differential Ord2 Eos ABS# 0.1 K/ul 08/28/2017 Cbc With Differential Ord2 Baso ABS# 0.0 K/ul 08/28/2017 Tsh Ord6 hTSH II 0.87 uIU/mL 03/09/2017 Comp Metabolic Iud970 NA 141 mEq/L 03/09/2017 Comp Metabolic Tlm779 K 3.8 mEq/L 03/09/2017 Comp Metabolic Qqv272 CL 105 mEq/L 03/09/2017 Comp Metabolic Igl620 CO2 29.0 mEq/L 03/09/2017 Comp Metabolic Jbv234 ANION GAP 11 03/09/2017 Comp Metabolic Elj728 GLUCOSE 98 mg/dL 03/09/2017 Comp Metabolic Fbp648 Creat 0.7 mg/dL 03/09/2017 Comp Metabolic Akd749 eGFR 93 ml/min/1.73m2 03/09/2017 Comp Metabolic Nxw306 BUN 11 mg/dL 03/09/2017 Comp Metabolic Uht824 B/C Ratio 16.4 Ratio 03/09/2017 Comp Metabolic Dgr952 CALCIUM 9.5 mg/dL 03/09/2017 Comp Metabolic Vzi347 ALK PHOS 90 U/L 03/09/2017 Comp Metabolic Ekg627 AST(SGOT) 21 U/L 03/09/2017 Comp Metabolic Fyq548 ALT(SGPT) 15 U/L 03/09/2017 Comp Metabolic Adj454 BILI T 0.6 mg/dL 03/09/2017 Comp Metabolic Xdl495 ALBUMIN 4.5 g/dL 03/09/2017 Comp Metabolic Giw590 TPRO 6.4 g/dL 03/09/2017 Comp Metabolic Yqi855 GLOB 1.9 g/dL 03/09/2017 Comp Metabolic Exg106 A/G Ratio 2.3 Ratio 03/09/2017 Comp Metabolic Eco116 Osmo 281 mOsmo 03/09/2017 %Hba1C Oja142 % HbA1c 32025-0 4.9 % 03/09/2017 %Hba1C Bfi927 Gluc Ave 94 mg/dL 03/09/2017 Cbc With Differential Ord2 WBC 6.06 [...] 31.7 pg 03/09/2017 Cbc With Differential Ord2 [place]% 6.1 % 03/09/2017 Cbc With Differential Ord2 [...] 1.78 K/ul 03/09/2017 Cbc With Differential Ord2 [place] ABS# 0.4 K/ul 03/09/2017 Cbc With Differential Ord2 Eos ABS# 0.1 K/ul 03/09/2017 Cbc With Differential Ord2 Baso ABS# 0.0 K/ul 03/09/2017 Comp Metabolic Csy298 NA 142 mEq/L 09/03/2016 Comp Metabolic Jsj180 K 3.9 mEq/L 09/03/2016 Comp Metabolic Krv126 CL 107 mEq/L 09/03/2016 Comp Metabolic Iaw604 CO2 26.0 mEq/L 09/03/2016 Comp Metabolic Piw724 ANION GAP 13 09/03/2016 Comp Metabolic Ovw808 GLUCOSE 107 mg/dL 09/03/2016 Comp Metabolic Zhs968 Creat 0.7 mg/dL 09/03/2016 Comp Metabolic Cny378 eGFR 85 ml/min/1.73m2 09/03/2016 Comp Metabolic Zqg351 BUN 16 mg/dL 09/03/2016 Comp Metabolic Ddx344 B/C Ratio 21.9 Ratio 09/03/2016 Comp Metabolic Yyy651 CALCIUM 8.8 mg/dL 09/03/2016 Comp Metabolic Uuo456 ALK PHOS 51 U/L 09/03/2016 Comp Metabolic Iyp342 AST(SGOT) 24 U/L 09/03/2016 Comp Metabolic Rfi836 ALT(SGPT) 20 U/L 09/03/2016 Comp Metabolic Qfx016 BILI T 0.7 mg/dL 09/03/2016 Comp Metabolic Imo680 ALBUMIN 4.1 g/dL 09/03/2016 Comp Metabolic Aiq367 TPRO 6.1 g/dL 09/03/2016 Comp Metabolic Jmq855 GLOB 2.0 g/dL 09/03/2016 Comp Metabolic Doq065 A/G Ratio 2.1 Ratio 09/03/2016 Comp Metabolic Qbp318 Osmo 285 mOsmo 09/03/2016 Cbc With Differential [...] 30.3 pg 09/03/2016 Cbc With Differential Ord2 [place]% 6.5 % 09/03/2016 Cbc With Differential Ord2 [...] 1.53 K/ul 09/03/2016 Cbc With Differential Ord2 [place] ABS# 0.4 K/ul 09/03/2016 Cbc With Differential [...] Ord15 CALCIUM 9.1 mg/dL 12/21/2015 Comp Metabolic Yzz722 NA 138 mEq/L 07/06/2015 Comp Metabolic Hxr170 K 3.9 mEq/L 07/06/2015 Comp Metabolic Njm139 CL 103 mEq/L 07/06/2015 Comp Metabolic Qxd980 CO2 28.0 mEq/L 07/06/2015 Comp Metabolic Glz600 ANION GAP 11 07/06/2015 Comp Metabolic Hug011 GLUCOSE 114 mg/dL 07/06/2015 Comp Metabolic Dtd586 Creat 0.7 mg/dL 07/06/2015 Comp Metabolic Bnf720 eGFR 97 ml/min/1.73m2 07/06/2015 Comp Metabolic Tzi553 BUN 11 mg/dL 07/06/2015 Comp Metabolic Kch661 B/C Ratio 16.9 Ratio 07/06/2015 Comp Metabolic Ybh135 CALCIUM 9.1 mg/dL 07/06/2015 Comp Metabolic Sde627 ALK PHOS 57 U/L 07/06/2015 Comp Metabolic Zxy594 AST(SGOT) 26 U/L 07/06/2015 Comp Metabolic Opk233 ALT(SGPT) 17 U/L 07/06/2015 Comp Metabolic Uke489 BILI T 0.6 mg/dL 07/06/2015 Comp Metabolic Fxg552 ALBUMIN 4.6 g/dL 07/06/2015 Comp Metabolic Kxw200 TPRO 6.7 g/dL 07/06/2015 Comp Metabolic Oxh108 GLOB 2.1 g/dL 07/06/2015 Comp Metabolic Qot836 A/G Ratio 2.2 Ratio 07/06/2015 Comp Metabolic Xhq513 Osmo 276 mOsmo 07/06/2015 Lipid Ord30 CHOL [...] Ord2 RDW 16.8 % 05/01/2015 Comp Metabolic Jwv248 NA 141 mEq/L 05/01/2015 Comp Metabolic Tzh191 K 4.0 mEq/L 05/01/2015 Comp Metabolic Plz996 CL 106 mEq/L 05/01/2015 Comp Metabolic Ykc879 CO2 26.0 mEq/L 05/01/2015 Comp Metabolic Jwi648 ANION GAP 13 05/01/2015 Comp Metabolic Xui591 GLUCOSE 124 mg/dL 05/01/2015 Comp Metabolic Xyk678 Creat 0.8 mg/dL 05/01/2015 Comp Metabolic Jus637 eGFR 79 ml/min/1.73m2 05/01/2015 Comp Metabolic Lax428 BUN 13 mg/dL 05/01/2015 Comp Metabolic Ggq082 B/C Ratio 16.7 Ratio 05/01/2015 Comp Metabolic Gsq438 CALCIUM 9.3 mg/dL 05/01/2015 Comp Metabolic Isp706 ALK PHOS 54 U/L 05/01/2015 Comp Metabolic Whh873 AST(SGOT) 21 U/L 05/01/2015 Comp Metabolic Qrp821 ALT(SGPT) 14 U/L 05/01/2015 Comp Metabolic Vfp822 BILI T 0.5 mg/dL 05/01/2015 Comp Metabolic Qhp892 ALBUMIN 4.5 g/dL 05/01/2015 Comp Metabolic Dxc531 TPRO 6.4 g/dL 05/01/2015 Comp Metabolic Pwz789 GLOB 1.9 g/dL 05/01/2015 Comp Metabolic Mgp847 A/G Ratio 2.4 Ratio 05/01/2015 Comp Metabolic Rvc285 Osmo 283 mOsmo 05/01/2015 %Hba1C Ezm310 % HbA1c 74393-2 5.4 % 01/29/2015 %Hba1C Hke235 Gluc Ave 108 mg/dL 01/29/2015 Lipid Ord30 CHOL 221 mg/dL 01/26/2015 Lipid Ord30 HDL 37.0 mg/dl 01/26/2015 Lipid Ord30 TRIG 274 mg/dL 01/26/2015 Lipid Ord30 LDL 129 mg/dL 01/26/2015 Lipid Ord30 C/HDL 6.0 Ratio 01/26/2015 Tsh Ord6 hTSH II 0.85 uIU/mL 01/26/2015 B12 Kbh718 B12 669.00 pg/ml 01/26/2015 Cbc With Differential Ord2 WBC 5.7 [...] With Differential Ord2 RDW 15.5 % 01/26/2015 Comp Metabolic Qbn010 NA 137 mEq/L 01/26/2015 Comp Metabolic Phv371 K 4.0 mEq/L 01/26/2015 Comp Metabolic Cyf424 CL 104 mEq/L 01/26/2015 Comp Metabolic Nqr611 CO2 27.0 mEq/L 01/26/2015 Comp Metabolic Juc218 ANION GAP 10 01/26/2015 Comp Metabolic Col880 GLUCOSE 131 mg/dL 01/26/2015 Comp Metabolic Vji010 Creat 0.8 mg/dL 01/26/2015 Comp Metabolic Ycv179 eGFR 77 ml/min/1.73m2 01/26/2015 Comp Metabolic Jba204 BUN 16 mg/dL 01/26/2015 Comp Metabolic Fjq996 B/C Ratio 20.0 Ratio 01/26/2015 Comp Metabolic Moj908 CALCIUM 9.1 mg/dL 01/26/2015 Comp Metabolic Gae022 ALK PHOS 66 U/L 01/26/2015 Comp Metabolic Zwh754 AST(SGOT) 24 U/L 01/26/2015 Comp Metabolic Yvy632 ALT(SGPT) 20 U/L 01/26/2015 Comp Metabolic Zha645 BILI T 0.4 mg/dL 01/26/2015 Comp Metabolic Sji451 ALBUMIN 4.2 g/dL 01/26/2015 Comp Metabolic Tuc000 TPRO 6.4 g/dL 01/26/2015 Comp Metabolic Fgu391 GLOB 2.2 g/dL 01/26/2015 Comp Metabolic Eta432 A/G Ratio 1.9 Ratio 01/26/2015 Comp Metabolic Fgn844 Osmo 277 mOsmo 01/26/2015 Review of Systems System Result Effective Dates Constitutional recent illness 10/28/2017 Constitutional No chills [...] benign 09/23/2017 None Full Exam - General 1995 Lymphatic neck nodes Overall: posterior cervical chain benign 09/23/2017 None Full Exam - General 1995 Musculoskeletal gait and station Overall: normal gait [...] lips 08/11/2016 None Full Exam - General 1995 Ears/Nose/Throat lips/teeth/gingiva Overall: normal dentition 08/11/2016 None [...] FLU VACC PRSV FREE INC ANTIG CPT-4: 80742 03/18/2017 INITIAL PREVENTIVE EXAM CPT-4: G0402 07/06/2015 IIV4 FLU VACC NO PRESERV ID Formatting Model/CDA Sections, Assigned to SNOMED CT: 02289907 CPT-4: [id number] 03/26/2015 IMMUNIZATION ADMIN CPT -4: 64390 03/26/2015 Vital Signs Date Vital 10/28/2017 Blood Pressure 1: 96/68 Code : 8480-6 BMI: 21.7 Code : 04653-6 Heart Rate 1 : 68 bpm Height: 5'1" SpO2: 98% Weight: 115 lbs 09/23/2017 Blood Pressure 1: 134/72 Code : 8480-6 BMI: 22.5 Code : 90701-5 Heart Rate 1 : 72 bpm Height: 5'1" SpO2: 97% Weight: 119 lbs 03/18/2017 Blood Pressure 1: 140/72 Code : 8480-6 BMI: 21.5 Code : 76858-5 Heart Rate 1 : 64 bpm Height: 5'1" SpO2: 96% Weight: 114 lbs 03/09/2017 Blood Pressure 1: 120/72 Code : 8480-6 BMI: 21.5 Code : 74192-7 Heart Rate 1 : 75 bpm Height: 5'1" SpO2: 97% Weight: 114 lbs 12/09/2016 Blood Pressure 1: 130/76 Code : 8480-6 BMI: 23.8 Code : 74258-6 Heart Rate 1 : 68 bpm Height: 5'1" SpO2: 98% Weight: 126 lbs 09/08/2016 Blood Pressure 1: 162/80 Code : 8480-6 Blood Pressure 2: 145/90 Code: 8480-6 BMI: 24.7 Code: 71360-9 Heart Rate 1: 77 bpm Height: 5'1" SpO2: 97% Weight: 130 lbs 8 [place] 08/11/2016 Blood Pressure 1: 130/80 Code : 8480-6 BMI: 25.9 Code : 11252-9 Heart Rate 1 : 62 bpm Height: 5'1" SpO2: 97% Weight: 137 lbs 07/03/2016 Blood Pressure 1: 134/74 Code : 8480-6 BMI: 26.8 Code : 02532-6 Heart Rate 1 : 74 bpm Height: 5'1" SpO2: 97% Weight: 142 lbs 06/19/2016 Blood Pressure 1: 118/66 Code : 8480-6 Heart Rate 1: 72 bpm SpO2: 96% Weight: 142 lbs 02/04/2016 Blood Pressure 1: 130/80 Code : 8480-6 BMI: 27.2 Code : 12170-2 Heart Rate 1 : 76 bpm Height: 5'1" SpO2: 96% Weight: 144 lbs 01/07/2016 Blood Pressure 1: 136/64 Code : 8480-6 BMI: 27.6 Code : 23214-2 Heart Rate 1 : 73 bpm Height: 5'1" SpO2: 987% Weight: 146 lbs 12/17/2015 Blood Pressure 1: 128/86 Code : 8480-6 BMI: 27.0 Code : 51782-4 Heart Rate 1 : 59 bpm Height: 5'1" SpO2: 96% Weight: 143 lbs 10/16/2015 Blood Pressure 1: 122/78 Code : 8480-6 BMI: 25.7 Code : 93296-7 Heart Rate 1 : 71 bpm Height: 5'1" SpO2: 96% Weight: 136 lbs 08/16/2015 Blood Pressure 1: 138/88 Code : 8480-6 BMI: 27.0 Code : 86110-8 Heart Rate 1 : 75 bpm Height: 5'1" SpO2: 98% Weight: 143 lbs 07/06/2015 Blood Pressure 1: 120/72 Code : 8480-6 BMI: 26.5 Code : 57741-4 Heart Rate 1 : 72 bpm Height: 5'1" SpO2: 96% Weight: 140 lbs 06/07/2015 Blood Pressure 1: 152/86 Code : 8480-6 BMI: 26.1 Code : 47940-2 Heart Rate 1 : 88 bpm Height: 5'1" SpO2: 97% Weight: 138 lbs 05/01/2015 Blood Pressure 1: 120/80 Code : 8480-6 BMI: 27.0 Code : 77313-2 Heart Rate 1 : 82 bpm Height: 5'1" SpO2: 98% Temperature: 36.7 (C) / 98.0 (F) Weight: 143 lbs 03/26/2015 Blood Pressure 1: 140/80 Code : 8480-6 BMI: 28.0 Code : 66885-1 Heart Rate 1 : 69 bpm Height: 5'1" SpO2: 96% Weight: 148 lbs 03/13/2015 Blood Pressure 1: 128/70 Code : 8480-6 BMI: 28.2 Code : 46283-2 Heart Rate 1 : 76 bpm Height: 5'1" Weight: 149 lbs 01/30/2015 Blood Pressure 1: 142/68 Code : 8480-6 BMI: 28.7 Code : 07855-2 Heart Rate 1 : 86 bpm Height: 5'1" SpO2: 96% Weight: 152 lbs 10/16/2014 Blood Pressure 1: 160/88 Code : 8480-6 BMI: 28.2 Code : 87672-4 Heart Rate 1 : 66 bpm Height: 5'1" Weight: 149 lbs Functional Status No Functional Status data History of Present Illness Symptom Name Status Result Effective Date Notes food allergy Quality acute 10/28/2017 None food [...] data Encounters Encounter Performer Location Codes Date ( EST. 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 PATIENT, LEVEL IV Diagnosis: Essential (primary) hypertension[ICD10: I10] Diagnosis: Major depressive disorder, recurrent, moderate[ICD10: F33.1] Diagnosis: Underweight[ICD10: R63.6] Diagnosis: Localization-related (focal) (partial) symptomatic epilepsy and epileptic syndromes with simple partial seizures, not intractable, without status epilepticus[ICD10: G40.109] Marylu Ochoa MD, [facility] CPT-4: 87429 03/09/2017 ([id number]) 48943 EST. PATIENT, LEVEL IV Diagnosis: Mixed hyperlipidemia[ICD10: E78.2] Diagnosis: Chronic pain syndrome[ICD10: G89.4] Diagnosis: Major depressive disorder, recurrent, mild[ICD10: F33.0] Marylu Ochoa MD, [facility] CPT-4: 67706 12/09/2016 ([id number]) 94135 EST. PATIENT, LEVEL IV Diagnosis: Essential (primary) hypertension[ICD10: I10] Diagnosis: Low back pain[ICD10: M54.5] Diagnosis: Personal history of transient ischemic attack (TIA), and cerebral infarction without residual deficits[ICD10: Z86.73] Diagnosis: Major depressive disorder, recurrent, moderate[ICD10: F33.1] Diagnosis: Other sleep apnea[ICD10: G47.39] Marylu Ochoa MD, [facility] CPT-4: 89096 09/08/2016 [id number]) 38173 EST. 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 PATIENT, LEVEL III Diagnosis: Chronic pain syndrome[ICD10: G89.4] Diagnosis: Low back pain[ICD10: M54.5] Diagnosis: Major depressive disorder, recurrent, mild[ICD10: F33.0] Diagnosis: Mild cognitive impairment, so stated[ICD10: G31.84] Angelica Ochoa MD, [facility] CPT-4: 16464 07/03/2016 ([id number]) 02972 EST. PATIENT, LEVEL III Diagnosis: Chronic pain syndrome[ICD10: G89.4] Donna Ochoa MD, [facility] CPT-4: 72309 06/19/2016 ([id number]) 67489 EST. PATIENT, LEVEL IV Diagnosis: Chronic pain syndrome[ICD10: G89.4] Diagnosis: Mild cognitive impairment, so stated[ICD10: G31.84] Donna Ochoa MD, [facility] CPT-4: 85627 02/04/2016 ([id number]) 33297 EST. PATIENT, LEVEL IV Diagnosis: Chronic pain syndrome[ICD10: G89.4] Diagnosis: Mild cognitive impairment, so stated[ICD10: G31.84] Diagnosis: Major depressive disorder, recurrent, mild[ICD10: F33.0] Donna Ochoa MD , [facility] CPT-4: 21218 01/07/2016 ([id number]) 59771 EST. PATIENT, LEVEL IV Diagnosis: Chronic pain syndrome[ICD10: G89.4] Diagnosis: Headache[ICD10: R51] Diagnosis: Major depressive disorder, recurrent, mild[ICD10: F33.0] Diagnosis: Mixed hyperlipidemia[ICD10: E78.2] Donna Ochoa MD, [facility] CPT-4: 57721 12/17/2015 ([id number]) 03682 EST. PATIENT, LEVEL III Diagnosis: Chronic pain syndrome[ICD10: G89.4] Diagnosis: Major depressive disorder, recurrent, mild[ICD10: F33.0] Donna Ochoa MD , [facility] CPT-4: 80127 10/16/2015 ([id number]) 72908 EST. PATIENT, LEVEL III Diagnosis: Low back pain[ICD10: M54.5] Donna Ochoa MD, [facility] CPT-4: 63727 08/16/2015 ([id number]) 14711 EST. 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 PATIENT, LEVEL IV Diagnosis: Major depressive disorder, recurrent, mild[ICD10: F33.0] Diagnosis: Chronic pain syndrome[ICD10: G89.4] Diagnosis: Other fatigue[ICD10: R53.83] [facility] CPT-4: 82779 05/01/2015 ([id number]) 36160 EST. PATIENT, LEVEL II Diagnosis: Plantar fascial fibromatosis[ICD10: M72.2] [facility] CPT-4: 35680 03/26/2015 ([id number]) 70591 EST. PATIENT, LEVEL III Diagnosis: Plantar fascial fibromatosis[ICD10: M72.2] [facility] CPT-4: 92452 03/13/2015 ([id number]) 06327 EST. PATIENT, LEVEL III Diagnosis: Hyperlipidemia[ICD9: 272.4] Diagnosis: ALLERGIC RHINITIS[ICD9: 477.9] Diagnosis: Chronic pain syndrome[ICD9: 338.4] [facility] CPT-4: 08006 01/30/2015 ([id number]) OFFICE VISIT, NEW - LEVEL 4 Diagnosis: ESOPHAGEAL REFLUX[ICD9: 530.81] Diagnosis: Peripheral neuropathy[ICD9: 356.9] Diagnosis: Chronic pain syndrome[ICD9: 338.4] Diagnosis: OSTEOARTH NOS-UNSPEC[ICD9: 715.90] Diagnosis: DEPRESSIVE DISORDER NEC[ICD9: 311] [facility] CPT-4: 57709 10/16/2014 Plan of Care Planned Activity Notes Codes Status Date Appointment: Angelica [place] WPtel: [address] [place], [place] [address] (15 min) Moderate 12/23/2017 Patient Education: Patient [...] Ochoa [facility]Ptel: [facility] ([facility] min) Moderate 10/28/2017 Patient Education: [...] make a follow up appointment with her watch crystal grinder - The patient has been counseled to [...] concerns. 09/23/2017 Appointment: [phone] [facility] (30 min) Complex 09/23/2017 Patient Education: Patient Medication Summary Completed 09/23/2017 Appointment: [facility] [phone] [facility] (15 min) Moderate 08/26/2017 Appointment: [facility] [place] [facility] [phone] [facility] (30 min) Complex 06/30/2017 Referral: External, Ordering Provider Referral Initiated 05/27/2017 Care Plan: Referral Order SNOMED-CT : [id number] Pending 04/20/2017 Visit Plan: Anxiety - the [...] make a follow up appointment with her watch crystal grinder - The patient has been counseled to [...] home. 03/09/2017 Appointment: Marylu Ochoa WPtel: [phone] [facility] [place] (30 min) Complex 03/09/2017 Patient Education: Patient Medication Summary Completed 03/09/2017 Appointment: Donna Walden WPtel: [phone] [phone] [place] (30 min) Complex 03/06/2017 Appointment: Marylu Ochoa WPtel: [phone] [facility] [place] (15 min) Moderate 01/08/2017 Visit Plan: [...] Summary Completed 12/09/2016 Appointment: [facility]lu [facility]el[facility] [phone] [facility] [place] (15 min) Moderate 11/11/2016 Appointment: Angelica Cuba WPtel: [phone] [facility] [place] (30 min) Complex 10/09/2016 Visit Plan: [...] namenda 09/08/2016 Appointment: Marylu [facility]Ptel[facility] [phone] [facility] (15 min) Moderate 09/08/2016 Patient Education: Patient Medication Summary Completed 09/08/2016 Appointment: Angelica Cuba WPtel: [facility] [place] (30 min) Complex 08/19/2016 Visit Plan: Hyperlipidemia [...] plavix 08/11/2016 Appointment: Marylu [facility]Ptel[facility] [phone] [facility] [place] (15 min) Moderate 08/11/2016 Patient Education: [...] concerns. 07/03/2016 Appointment: [facility] [place] [facility] [phone] [facility] [place] (30 min) Complex 07/03/2016 Patient Education: Patient Medication Summary Completed 07/03/2016 Care Plan: Referral Order SNOMED-CT : [id number] Pending 07/03/2016 Visit Plan: Chronic Pain Syndrome - pt has chronic pain - has been maintained on current medications, has not sought out other medications , only uses PRN pain medications as directed, and understands the consequences of over-medication. 06/19/2016 Appointment: Donna Wal[facility]el[facility] [phone] [phone] [place] (30 min) Complex 06/19/2016 Patient Education: Patient Medication Summary Completed 06/19/2016 Appointment: Donna Walden WPtel: [phone] [phone] (30 min) Complex 06/05/2016 Visit Plan: Chronic Pain Syndrome - pt has chronic pain - has been maintained on current medications, has not sought out other medications , only uses PRN pain medications as directed, and understands the consequences of over-medication. Mild cognitive impairment-discussed with Dr Arnulfo alvarado pack 02/04/2016 Appointment: Donna Walden WPtel: [phone] (30 min) Complex 02/04/2016 Patient Education: Patient Medication Summary Completed 02/04/2016 Appointment: Donna Walden WPtel: [facility]0 [facility] [place] [address] (30 min) Complex 01/14/2016 Visit Plan: Chronic [...] Walden WPtel: [facility]2 [phone] (15 min) Moderate 01/07/2016 Patient Education: Patient Medication Summary Completed 01/07/2016 Visit Plan: Chronic Pain Syndrome - pt has chronic pain - has been maintained on current medications, has not sought out other medications , only uses PRN pain medications as directed, and understands the consequences of over-medication. Headaches-memory loss-schedule MRI brain Hyperlipidemia- check fasting labs Ffaloeehmd-lltxfd-ml change in medications at this time 12/17/2015 Patient Education: Patient Medication Summary Completed 12/17/2015 Appointment: Donna Walden WPtel: [facility] (30 min) Complex 12/13/2015 Visit Plan: [...] current medications. 10/16/2015 Appointment: Donna Walden WPtel: [phone] [phone] (30 min) Complex 10/16/2015 Patient Education: Patient [...] pain symptoms. 06/07/2015 Appointment: Marylu Ochoa WPtel: [facility]5 [facility] (15 min) Moderate 06/07/2015 Patient Education: [...] shoes - discussed inserts and referral to recruiting scheduler-patient wants to wait but will let us [...] pain symptoms. 10/16/2014 Appointment: Marylu Ochoa WPtel: [address] [place], [place] [address] [place] ([place]) New Patient 10/16/2014 Patient Education: Patient Medication Summary Completed 10/16/2014 Patient Education: Hypertension Completed 10/16/2014 Referral: Betsy Samuels Referral Initiated Referral: External, Ordering Provider Referral Relationship Instructions Comment . Welcome to Medicare Exam - today [...] and to maintain independece in the home. mammogram order - given to patient - she is to schedule in [place] . Chronic Pain Syndrome - pt has [...] Headaches-memory loss-schedule MRI brain Hyperlipidemia-check fasting labs Chuvkirtzp-kyiryx-ht change in medications at this time . [...] in blood pressure readings at home. . Hyperlipidemia - pt has been [...] supportive shoes -discussed inserts and referral to recruiting scheduler-patient wants to wait but will let us [...] make a follow up appointment with her watch crystal grinder - The patient has been counseled to [...] pt is to call for acute concerns. Namenda starter pack . Chronic Pain [...] about referring her to Dr. Dexter grullon [place] (neurologist) . Anxiety - the patient has [...] make a follow up appointment with her watch crystal grinder - The patient has been counseled to [...] 90 day supply of Aricept through [facility] Add 50 mg Losartan daily for hypertension [...] 90 day supply of Aricept through [facility] Add 50 mg Losartan daily for hypertension [...]
--- OUTSIDE RECORDS SUMMARY | 2018-09-20 06:16 | XMS REPORT | Continuity of Care Document ---
Author Organization Unknown Address Unknown Allergies Active Description Code Type Severity Reaction Onset Reported/Identified Relationship to Patient Clinical Status Yes CELEBREX [id number] BRANDNAME N/ A N/A Yes CELECOXIB [id number] DRUG N/A HIVES, THROAT SWELLED Yes PENICILLINS (CLASS) [id number] CLASS N/A HIVES Yes ROFECOXIB [id number] DRUG N/A HIVES Yes PAULINO INHIBITOR 2 PAULINO INHIBITOR 2 Unknown HIVES 12/21/2015 Yes Penicillins [id number] Drug Allergy Unknown HIVES 12/21/2015 Medications There [...] CORNELIO RAMIREZ Ot 724.2 LUMBAGO 09/20/2012 CORNELIO RAMIREZ Ot 726.5 ENTHESOPATHY OF HIP 09/20/2012 CORNELIO [...] 780.2 05/01/2014 TREMAYNE ROMAN Ot 721.1 05/08/2014 HORACIO ELIZABETH, SCOTTIE Boggs Ot 780.2 06/21/2014 HORACIO ELIZABETH, SCOTTIE Boggs Ot 780.2 SYNCOPE AND COLLAPSE 07/10/2014 Ot 724.4 07/10/2014 Ot 724.02 07/10/2014 Ot 722.10 07/10/2014 Ot V72.63 07/10/2014 Ot V74.8 07/10/2014 DIANA ELIZABETH, DARELL Queen Ot 722.10 07/10/2014 DIANA ELIZABETH, DARELL Queen Ot 724.02 07/10/2014 HORACIO ELIZABETH, SCOTTIE Boggs Ot 724.5 07/10/2014 HORACIO ELIZABETH, SCOTTIE Boggs Ot 737.30 07/10/2014 HORACIO ELIZABETH, SCOTTIE Boggs Ot 780.2 07/10/2014 TREMAYNE ROMAN A Ot 721.1 07/10/2014 HORACIO ELIZABETH, SCOTTIE Boggs Ot 780.2 09/07/2014 Ot 724.4 09/07/2014 Ot 724.02 09/07/2014 Ot 722.10 09/07/2014 Ot V72.63 09/07/2014 Ot V74.8 09/07/2014 DARELL ORTIZ MD Ot 722.10 09/07/2014 DARELL ORTIZ MD Ot 724.02 09/07/2014 HORACIO ELIZABETH, SCOTTIE Boggs Ot 724.5 09/07/2014 HORACIO ELIZABETH, SCOTTIE Boggs Ot 737.30 09/07/2014 HORACIO ELIZABETH, SCOTTIE Boggs Ot 780.2 09/07/2014 TREMAYNE ROMAN A Ot 721.1 09/07/2014 HORACIO ELIZABETH, SCOTTIE Boggs Ot 780.2 12/20/2014 JASBIR OSBORN Ot 721.1 12/20/2014 JASBIR OSBORN Ot 733.00 12/20/2014 JASBIR OSBORN Ot V49.81 03/14/2015 ZULEYMA VAUGHAN MD Ot M79.671 03/22/2015 ZULEYMA VAUGHAN MD Ot M79.671 05/27/2015 Ot 724.4 05/27/2015 Ot 724.02 05/27/2015 Ot 722.10 05/27/2015 Ot V72.63 05/27/2015 Ot V74.8 05/27/2015 DIANA ELIZABETH, DARELL Queen Ot 722.10 05/27/2015 DARELL ORTIZ MD Ot 724.02 05/27/2015 HORACIO ELIZABETH, SCOTTIE Boggs Ot 724.5 05/27/2015 HORACIO ELIZABETH, SCOTTIE Boggs Ot 737.30 05/27/2015 SCOTTIE LEONARD MD Ot 780.2 05/27/2015 TREMAYNE ROMAN A Ot 721.1 05/27/2015 SCOTTIE LEONARD MD Ot 780.2 05/27/2015 JASBIR OSBORN Ot 721.1 05/27/2015 JASBIR OSBORN Ot 733.00 05/27/2015 JASBIR OSBORN Ot V49.81 05/27/2015 ALEXUS ELIZABETH, ZULEYMA Freeman Ot M79.671 09/05/2015 Ot 724.4 LUMBOSACRAL NEURITIS [...] MD Ot 780.2 SYNCOPE AND COLLAPSE 09/05/2015 TREMAYNE ROMAN A Ot 721.1 CERV SPONDYL W MYELOPATH 09/05/2015 SCOTTIE LEONARD MD Ot 780.2 SYNCOPE AND COLLAPSE 09/05/2015 JASBIR OSBORN Ot 721.1 CERV SPONDYL W MYELOPATH 09/05/2015 JASBIR OSBORN Ot 733.00 OSTEOPOROSIS NOS 09/05/2015 JASBIR OSBORN Ot V49.81 ASYMPT POSTMENOPAUSAL STATUS (AGE-RELATE 09/05/2015 ALEXUS ELIZABETH, ZULEYMA Freeman Ot M79.671 PAIN IN RIGHT FOOT 09/10/2015 Ot 724.4 LUMBOSACRAL NEURITIS NOS 09/10/2015 Ot 724.02 SPINAL STENOSIS, LUMBAR REG, W/OUT NEURO 09/10/2015 Ot 722.10 LUMBAR DISC DISPLACEMENT 09/10/2015 Ot V72.63 PRE- PROCEDURAL LABORATORY EXAMINATION 09/10/2015 Ot V74.8 SCREEN- BACTERIAL DIS NEC 09/10/2015 DARELL ORTIZ MD Ot 722.10 LUMBAR DISC DISPLACEMENT 09/10/2015 DARELL ORTIZ MD Ot 724.02 SPINAL STENOSIS, LUMBAR REG, W/OUT NEURO 09/10/2015 HORACIO ELIZABETH, SCOTTIE Boggs Ot 724.5 BACKACHE NOS 09/10/2015 SCOTTIE LEONARD [...] Ot V49.81 ASYMPT POSTMENOPAUSAL STATUS (AGE-RELATE 09/10/2015 ZULEYMA VAUGHAN MD Ot M79.671 PAIN IN RIGHT FOOT 09/10/2015 CRISTY MONTES MD Ot M53.3 SACROCOCCYGEAL DISORDERS, NOT ELSEWHERE 09/10/2015 CRISTY MONTES MD Ot Z79.899 OTHER CARE HOME (CURRENT) DRUG THERAPY 09/17/2015 Ot 724.4 LUMBOSACRAL [...] Ot M53.3 SACROCOCCYGEAL DISORDERS, NOT ELSEWHERE 09/18/2015 JYOTI ELIZABETH, CRISTY Starr Ot Z79.899 OTHER SENIOR BUYER PLANNER (CURRENT) DRUG THERAPY 12/21/2015 SCOTTIE LEONARD MD Ot 780.2 SYNCOPE AND COLLAPSE 12/24/2015 TRACE CUEVAS Ot R41.3 OTHER AMNESIA 12/24/2015 TRACE CUEVAS Ot R51 HEADACHE 01/02/2016 Ot 724.4 LUMBOSACRAL NEURITIS NOS 01/02/2016 Ot 724.02 SPINAL STENOSIS, LUMBAR REG, W/OUT NEURO 01/02/2016 Ot 722.10 LUMBAR DISC DISPLACEMENT 01/02/2016 Ot V72.63 PRE- PROCEDURAL LABORATORY EXAMINATION 01/02/2016 Ot V74.8 SCREEN- BACTERIAL DIS NEC 01/02/2016 DIANA ELIZABETH, DARELL Queen Ot 722.10 LUMBAR DISC DISPLACEMENT 01/02/2016 DARELL ORTIZ MD Ot 724.02 SPINAL STENOSIS, LUMBAR REG, W/OUT NEURO 01/02/2016 SCOTTIE LEONARD MD Ot 724.5 BACKACHE NOS 01/02/2016 SCOTTIE LEONARD MD Ot 737.30 IDIOPATHIC SCOLIOSIS 01/02/2016 SCOTTIE LEONARD MD Ot 780.2 SYNCOPE AND COLLAPSE 01/02/2016 TREMAYNE ROMAN Ot 721.1 CERV SPONDYL W MYELOPATH 01/02/2016 HORACIO ELIZABETH, SCOTTIE Boggs Ot 780.2 SYNCOPE AND COLLAPSE 01/02/2016 JASBIR OSBORN Ot 721.1 CERV SPONDYL W MYELOPATH 01/02/2016 JASBIR OSBORN Ot 733.00 OSTEOPOROSIS NOS 01/02/2016 JASBIR OSBORN Ot V49.81 ASYMPT POSTMENOPAUSAL STATUS (AGE-RELATE 01/02/2016 ALEXUS ELIZABETH, ZULEYMA Freeman Ot M79.671 PAIN IN RIGHT FOOT 01/02/2016 TRACE CUEVAS BROKE HANDLER Ot R41.3 OTHER AMNESIA 01/02/2016 TRACE CUEVAS BROKE HANDLER Ot R51 HEADACHE 01/09/2016 Ot 724.4 LUMBOSACRAL NEURITIS NOS 01/09/2016 Ot 724.02 SPINAL STENOSIS, LUMBAR REG, W/OUT NEURO 01/09/2016 Ot 722.10 LUMBAR DISC DISPLACEMENT 01/09/2016 Ot V72.63 PRE- PROCEDURAL LABORATORY EXAMINATION 01/09/2016 Ot V74.8 SCREEN- BACTERIAL DIS NEC 01/09/2016 DIANA ELIZABETH, DARELL Queen Ot 722.10 LUMBAR DISC DISPLACEMENT 01/09/2016 DIANA ELIZABETH, DARELL Queen Ot 724.02 SPINAL STENOSIS, LUMBAR REG, W/OUT NEURO 01/09/2016 HORACIO ELIZABETH, SCOTTIE Boggs Ot 724.5 BACKACHE NOS 01/09/2016 HORACIO ELIZABETH, SCOTTIE Boggs Ot 737.30 IDIOPATHIC SCOLIOSIS 01/09/2016 HORACIO ELIZABETH, SCOTTIE Boggs Ot 780.2 SYNCOPE AND COLLAPSE 01/09/2016 TREMAYNE ROMAN Ot 721.1 CERV SPONDYL W MYELOPATH 01/09/2016 SCOTTIE LEONARD MD Ot 780.2 SYNCOPE AND COLLAPSE 01/09/2016 JASBIR OSBORN Ot 721.1 CERV SPONDYL W MYELOPATH 01/09/2016 JASBIR OSBORN Ot 733.00 OSTEOPOROSIS NOS 01/09/2016 JASBIR OSBORN Ot V49.81 ASYMPT POSTMENOPAUSAL STATUS (AGE-RELATE 01/09/2016 ZULEYMA VAUGHAN MD Ot M79.671 PAIN IN RIGHT FOOT 01/09/2016 TRACE CUEVAS BROKE HANDLER Ot R41.3 OTHER AMNESIA 01/09/2016 TRACE CUEVASP Ot R51 HEADACHE 01/09/2016 BLANCA PICKENS TECHNOLOGY INSTRUCTOR Ot 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 01/10/2016 Ot 724.4 LUMBOSACRAL NEURITIS NOS 01/10/2016 Ot 724.02 SPINAL STENOSIS, LUMBAR REG, W/OUT NEURO 01/10/2016 Ot 722.10 LUMBAR DISC DISPLACEMENT 01/10/2016 Ot V72.63 PRE- PROCEDURAL LABORATORY EXAMINATION 01/10/2016 Ot V74.8 SCREEN- BACTERIAL DIS NEC 01/10/2016 DIANA ELIZABETH, DARELL Queen Ot 722.10 LUMBAR DISC DISPLACEMENT 01/10/2016 DARELL ORTIZ MD Ot 724.02 SPINAL STENOSIS, LUMBAR REG, W/OUT NEURO 01/10/2016 HORACIO ELIZABETH, SCOTTIE Boggs Ot 724.5 BACKACHE NOS 01/10/2016 HORACIO ELIZABETH, SCOTTIE Boggs Ot 737.30 IDIOPATHIC SCOLIOSIS 01/10/2016 HORACIO ELIZABETH, SCOTTIE Boggs Ot 780.2 SYNCOPE AND COLLAPSE 01/10/2016 TREMAYNE ROMAN Ot 721.1 CERV SPONDYL W MYELOPATH 01/10/2016 HORACIO ELIZABETH, SCOTTIE Boggs Ot 780.2 SYNCOPE AND COLLAPSE 01/10/2016 JASBIR OSBORN Ot 721.1 CERV SPONDYL W MYELOPATH 01/10/2016 JASBIR SOBORN Ot 733.00 OSTEOPOROSIS NOS 01/10/2016 JASBIR OSBORN Ot V49.81 ASYMPT POSTMENOPAUSAL STATUS (AGE-RELATE 01/10/2016 ALEXUS ELIZABETH, ZULEYMA Freeman Ot M79.671 PAIN IN RIGHT FOOT 01/10/2016 TRACE CUEVAS BROKE HANDLER Ot R41.3 OTHER AMNESIA 01/10/2016 TRACE CUEVAS BROKE HANDLER Ot R51 HEADACHE 01/10/2016 BLANCA PICKENS TECHNOLOGY INSTRUCTOR Ot 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 01/10/2016 BLANCA PICKENS TECHNOLOGY INSTRUCTOR Ot 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 01/11/2016 TRACE CUEVAS BROKE HANDLER Ot R41.3 OTHER AMNESIA 01/11/2016 TRACE CUEVAS BROKE HANDLER Ot R51 HEADACHE 01/17/2016 TRACE CUEVAS BROKE HANDLER Ot R41.3 OTHER AMNESIA 01/17/2016 TRACE CUEVAS BROKE HANDLER Ot R51 HEADACHE 01/22/2016 Ot 724.4 LUMBOSACRAL [...] JASBIR OSBORN Ot 733.00 OSTEOPOROSIS NOS 01/22/2016 JASBIR OSBORN Ot V49.81 ASYMPT POSTMENOPAUSAL STATUS (AGE-RELATE 01/22/2016 ALEXUS ELIZABETH, ZULEYMA Freeman Ot M79.671 PAIN IN RIGHT FOOT 01/22/2016 TRACE CUEVAS BROKE HANDLER Ot R41.3 OTHER AMNESIA 01/22/2016 TRACE CUEVAS BROKE HANDLER Ot R51 HEADACHE 01/22/2016 BLANCA PICKENS TECHNOLOGY INSTRUCTOR Ot 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 01/30/2016 BLANCA PICKENS TECHNOLOGY INSTRUCTOR Ot 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 02/01/2016 MAYUR ELIZABETH FACC, ALI FACP CCDS Ot R06.02 SHORTNESS OF BREATH 02/01/2016 MAYUR ELIZABETH FACC, ALI FACP CCDS Ot R06.02 SHORTNESS OF BREATH 02/04/2016 MAYUR ELIZABETH FACC, ALI FACP CCDS Ot R06.02 SHORTNESS OF BREATH 02/06/2016 BLANCA PICKENS TECHNOLOGY INSTRUCTOR Ot 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 02/22/2016 MAYUR ELIZABETH FACC, ALI FACP CCDS Ot E78.0 PURE HYPERCHOLESTEROLEMIA 02/22/2016 MAYUR ELIZABETH FAC, ALI FACP CCDS Ot I10 ESSENTIAL (PRIMARY) HYPERTENSION 02/22/2016 MAYUR MD FAC, ALI FACP CCDS Ot 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 02/22/2016 MAYUR MD FACC, ALI FACP CCDS Ot R06.02 SHORTNESS OF BREATH 02/22/2016 MAYUR MD FACC, ALI FACP CCDS Ot R73.01 IMPAIRED FASTING GLUCOSE 03/12/2016 MAYUR MD FAC, ALI FACP CCDS Ot E78.0 PURE HYPERCHOLESTEROLEMIA 03/12/2016 MAYUR MD FACC, ALI FACP CCDS Ot I10 ESSENTIAL (PRIMARY) HYPERTENSION 03/12/2016 MAYUR MD [facility], ALI FACP CCDS Ot 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 03/12/2016 MAYUR [facility], ALI FACP CCDS Ot R06.02 SHORTNESS OF BREATH 03/12/2016 MAYUR [facility], ALI FACP CCDS Ot R73.01 IMPAIRED FASTING GLUCOSE 07/15/2016 BLANCA PICKENS APRN Ot M54.5 LOW BACK PAIN 07/15/2016 BLANCA PICKENS TECHNOLOGY INSTRUCTOR Ot Z98.1 ARTHRODESIS STATUS 07/17/2016 BLANCA PICKENS APRN Ot M54.5 LOW BACK PAIN 07/17/2016 BLANCA PICKENS APRN Ot Z98.1 ARTHRODESIS STATUS 08/04/2016 ADRIANA TRIPP DO Ot E11.9 TYPE 2 DIABETES MELLITUS WITHOUT COMPLIC 08/04/2016 ADRIANA TRIPP DO Ot F03.90 UNSPECIFIED DEMENTIA WITHOUT BEHAVIORAL 08/04/2016 ADRIANA TRIPP DO Ot G45.9 TRANSIENT CEREBRAL ISCHEMIC ATTACK, UNSP 08/04/2016 ADRIANA TRIPP DO Ot R47.81 SLURRED SPEECH 08/04/2016 ADRIANA TRIPP DO Ot Z79.82 SENIOR BUYER PLANNER (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 ASPIRIN 08/04/2016 ADRIANA TRIPP DO Ot Z79.899 OTHER CARE HOME (CURRENT) DRUG THERAPY 08/05/2016 BLANCA PICKENS APRN Ot M54.5 LOW BACK PAIN 08/05/2016 BLANCA PICKENS APRN Ot Z98.1 ARTHRODESIS STATUS 08/13/2016 BLANCA PICKENS APRN Ot M54.5 LOW BACK PAIN 08/13/2016 CELIO BLANCA Ambrose TECHNOLOGY INSTRUCTOR Ot Z98.1 ARTHRODESIS STATUS 08/20/2016 ZULEYMA VAUGHAN MD Ot I10 ESSENTIAL (PRIMARY) HYPERTENSION 08/20/2016 ZULEYMA VAUGHAN MD Ot Z86.73 PRSNL HX [...] INFRC W 12/22/2016 SANTA BARNES MD Ot E11.9 TYPE 2 [...] OSTEOPOROSIS W/O CURRENT PAT 12/22/2016 SANTA BARNES MD Ot R29.898 OTH SYMPTOMS AND SIGNS INVOLVING THE MUS 12/22/2016 SANTA BARNES MD Ot Z79.82 CARE HOME (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 ASPIRIN 12/22/2016 SANTA BARNES MD, Ot Z86.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 (TIA), AND CEREB INFRC W 12/22/2016 SANTA BARNES MD Ot Z90.710 ACQUIRED ABSENCE OF BOTH CERVIX AND UTER 12/22/2016 SANTA BARNES MD Ot Z90.89 ACQUIRED ABSENCE OF OTHER ORGANS 12/24/2016 SANTA BARNES MD Ot E11.9 TYPE 2 DIABETES MELLITUS WITHOUT COMPLIC 12/24/2016 SANTA BARNES MD Ot F03.90 UNSPECIFIED DEMENTIA WITHOUT BEHAVIORAL 12/24/2016 SANTA BARNES MD Ot F32.9 MAJOR DEPRESSIVE DISORDER, SINGLE EPISOD 12/24/2016 SANTA BARNES MD Ot I62.9 NONTRAUMATIC INTRACRANIAL HEMORRHAGE, UN 12/24/2016 SANTA BARNES MD, Ot J45.909 UNSPECIFIED ASTHMA, UNCOMPLICATED 12/24/2016 SANTA BARNES MD, Ot M81.0 AGE-RELATED OSTEOPOROSIS W/O CURRENT PAT 12/24/2016 SANTA BARNES MD Ot R29.898 OTH SYMPTOMS AND SIGNS INVOLVING THE MUS 12/24/2016 SANTA BARNES MD, Ot Z79.82 CARE HOME (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 ASPIRIN 12/24/2016 SANTA BARNES MD, Ot Z86.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 (TIA), AND CEREB INFRC W 12/24/2016 SANTA BARNES MD Ot Z90.710 ACQUIRED ABSENCE OF BOTH CERVIX AND UTER 12/24/2016 SANTA BARNES MD Ot Z90.89 ACQUIRED ABSENCE OF OTHER ORGANS 12/28/2016 SANTA BARNES MD Ot E11.9 TYPE 2 DIABETES MELLITUS WITHOUT COMPLIC 12/28/2016 SANTA BARNES MD Ot F03.90 UNSPECIFIED DEMENTIA WITHOUT BEHAVIORAL 12/28/2016 SANTA BARNES MD, Ot F32.9 MAJOR DEPRESSIVE DISORDER, SINGLE EPISOD 12/28/2016 SANTA BARNES MD, Ot I62.9 NONTRAUMATIC INTRACRANIAL HEMORRHAGE, UN 12/28/2016 SANTA BARNES MD, Ot J45.909 UNSPECIFIED ASTHMA, UNCOMPLICATED 12/28/2016 SANTA BARNES MD, Ot M81.0 AGE-RELATED OSTEOPOROSIS W/O CURRENT PAT 12/28/2016 SANTA BARNES MD, Ot R29.898 OTH SYMPTOMS AND SIGNS INVOLVING THE MUS 12/28/2016 SANTA BARNES MD Ot Z79.82 CARE HOME (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 ASPIRIN 12/28/2016 SANTA BARNES MD Ot Z86.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 (TIA), AND CEREB INFRC W 12/28/2016 SANTA BARNES MD Ot Z90.710 ACQUIRED ABSENCE [...] GASTROINTESTINAL PROSTH 03/02/2017 REN CASTRO Ot Z79.01 CARE HOME (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 ANTICOAGULANT 03/02/2017 REN CASTRO [...] AGE-RELATED OSTEOPOROSIS W/O CURRENT PAT 03/04/2017 REN CASTRO Ot 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 03/04/2017 REN CASTRO Ot Z86.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 (TIA), AND CEREB INFRC W 03/04/2017 REN CASTRO Ot Z90.710 ACQUIRED ABSENCE OF BOTH CERVIX AND UTER 03/04/2017 REN CASTRO Ot Z90.89 ACQUIRED ABSENCE OF OTHER ORGANS 03/09/2017 SANTA BARNES MD Ot E11.9 TYPE 2 DIABETES MELLITUS WITHOUT COMPLIC 03/09/2017 SANTA BARNES MD, Ot F03.90 UNSPECIFIED DEMENTIA WITHOUT BEHAVIORAL 03/09/2017 SANTA BARNES MD, Ot F32.9 MAJOR DEPRESSIVE DISORDER, SINGLE EPISOD 03/09/2017 SANTA BARNES MD, Ot I62.9 NONTRAUMATIC INTRACRANIAL HEMORRHAGE, UN 03/09/2017 SANTA BARNES MD, Ot J45.909 UNSPECIFIED ASTHMA, UNCOMPLICATED 03/09/2017 SANTA BARNES MD, Ot M81.0 AGE-RELATED OSTEOPOROSIS W/O CURRENT PAT 03/09/2017 SANTA BARNES MD, Ot R29.898 OTH SYMPTOMS AND SIGNS INVOLVING THE MUS 03/09/2017 SANTA BARNES MD, Ot Z79.82 CARE HOME (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 ASPIRIN 03/09/2017 SANTA BARNES MD, Ot Z86.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 (TIA), AND CEREB INFRC W 03/09/2017 SANTA BARNES MD, Ot Z90.710 ACQUIRED ABSENCE OF BOTH CERVIX AND UTER 03/09/2017 SANTA BARNES MD, Ot Z90.89 ACQUIRED ABSENCE [...] GASTROINTESTINAL PROSTH 03/17/2017 REN CASTRO Ot Z79.01 CARE HOME (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 ANTICOAGULANT 03/17/2017 REN CASTRO [...] Queen Ot 722.10 LUMBAR DISC DISPLACEMENT 06/10/2017 DARELL ORTIZ MD Ot 724.02 SPINAL STENOSIS, LUMBAR REG, W/OUT NEURO 06/10/2017 HORACIO ELIZABETH, SCOTTIE Boggs Ot 724.5 BACKACHE NOS 06/10/2017 HORACIO ELIZABETH, SCOTTIE Boggs Ot 737.30 IDIOPATHIC SCOLIOSIS 06/10/2017 HORACIO ELIZABETH, SCOTTIE Boggs Ot 780.2 SYNCOPE AND COLLAPSE 06/10/2017 FAZAL MART, TREMAYNE Freeman Ot 721.1 CERV SPONDYL W MYELOPATH 06/10/2017 HORACIO ELIZABETH, SCOTTIE Boggs Ot 780.2 SYNCOPE AND COLLAPSE 06/10/2017 JASBIR OSBORN Ot 721.1 CERV SPONDYL W MYELOPATH 06/10/2017 JASBIR OSBORN Ot 733.00 OSTEOPOROSIS NOS 06/10/2017 JASBIR OSBORN Ot V49.81 ASYMPT POSTMENOPAUSAL STATUS (AGE-RELATE 06/10/2017 ALEXUS ELIZABETH, ZULEYMA Freeman Ot M79.671 PAIN IN RIGHT FOOT 06/10/2017 TRACE CUEVAS BROKE HANDLER Ot R41.3 OTHER AMNESIA 06/10/2017 TRACE CUEVAS BROKE HANDLER Ot R51 HEADACHE 06/10/2017 BLANCA PICKENS TECHNOLOGY INSTRUCTOR Ot 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 06/10/2017 MAYUR ELIZABETH FACC, LUIS FERNANDO FACP CCDS Ot E78.0 PURE HYPERCHOLESTEROLEMIA 06/10/2017 MAYUR ELIZABETH FACC, ALI FACP CCDS Ot I10 ESSENTIAL (PRIMARY) HYPERTENSION 06/10/2017 MAYUR ELIZABETH FACC, ALI FACP CCDS Ot 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 06/10/2017 MAYUR ELIZABETH FACC, LUIS FERNANDO FACP CCDS Ot R06.02 SHORTNESS OF BREATH 06/10/2017 MAYUR ELIZABETH FACC, ALI FACP CCDS Ot R73.01 IMPAIRED FASTING GLUCOSE 06/10/2017 BLANCA PICKENS APRN Ot M54.5 LOW BACK PAIN 06/10/2017 BLANCA PICKENS APRN Ot Z98.1 ARTHRODESIS STATUS 06/10/2017 ZULEYMA VAUGHAN MD Ot I10 ESSENTIAL (PRIMARY) HYPERTENSION 06/10/2017 ZULEYMA VAUGHAN MD Ot Z86.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 (TIA), AND CEREB INFRC W 06/27/2017 Ot 724.4 LUMBOSACRAL NEURITIS NOS 06/27/2017 Ot 724.02 SPINAL STENOSIS, LUMBAR REG, W/OUT NEURO 06/27/2017 Ot 722.10 LUMBAR DISC DISPLACEMENT 06/27/2017 Ot V72.63 PRE- PROCEDURAL LABORATORY EXAMINATION 06/27/2017 Ot V74.8 SCREEN- BACTERIAL DIS NEC 06/27/2017 DIANA ELIZABETH, DARELL Queen Ot 722.10 LUMBAR DISC DISPLACEMENT 06/27/2017 DIANA ELIZABETH, DARELL Queen Ot 724.02 SPINAL STENOSIS, LUMBAR REG, W/OUT NEURO 06/27/2017 HORACIO ELIZABETH, SCOTTIE Boggs Ot 724.5 BACKACHE NOS 06/27/2017 HORACIO ELIZABETH, SCOTTIE Boggs Ot 737.30 IDIOPATHIC SCOLIOSIS 06/27/2017 HORACIO ELIZABETH, SCOTTIE Boggs Ot 780.2 SYNCOPE AND COLLAPSE 06/27/2017 TREMAYNE ROMAN Ot 721.1 CERV SPONDYL W MYELOPATH 06/27/2017 SCOTTIE LEONARD MD Ot 780.2 SYNCOPE AND COLLAPSE 06/27/2017 JASBIR OSBORN Ot 721.1 CERV SPONDYL W MYELOPATH 06/27/2017 JASBIR OSBORN Ot 733.00 OSTEOPOROSIS NOS 06/27/2017 JASBIR OSBORN Ot V49.81 ASYMPT POSTMENOPAUSAL STATUS (AGE-RELATE 06/27/2017 ALEXUS ELIZABETH, ZULEYMA Freeman Ot M79.671 PAIN IN RIGHT FOOT 06/27/2017 TRACE CUEVAS Ot R41.3 OTHER AMNESIA 06/27/2017 TRACE CUEVAS Ot R51 HEADACHE 06/27/2017 BLANCA PICKENS APRN Ot 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 06/27/2017 MAYUR ELIZABETH FACC, ALI FACP CCDS Ot E78.0 PURE HYPERCHOLESTEROLEMIA 06/27/2017 MAYUR ELIZABETH FACC, ALI FACP CCDS Ot I10 ESSENTIAL (PRIMARY) HYPERTENSION 06/27/2017 MAYUR ELIZABETH FAC, ALI FACP CCDS Ot 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 06/27/2017 MAYUR ELIZABETH FAC, ALI FACP CCDS Ot R06.02 SHORTNESS OF BREATH 06/27/2017 MAYUR ELIZABETH FAC, ALI FACP CCDS Ot R73.01 IMPAIRED FASTING GLUCOSE 06/27/2017 BLANCA PICKENS TECHNOLOGY INSTRUCTOR Ot M54.5 LOW BACK PAIN 06/27/2017 BLANCA PICKENS TECHNOLOGY INSTRUCTOR Ot Z98.1 ARTHRODESIS STATUS 06/27/2017 ZULEYMA VAUGHAN MD Ot I10 ESSENTIAL (PRIMARY) HYPERTENSION 06/27/2017 ZULEYMA VAUGHAN MD Ot Z86.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 (TIA), AND CEREB INFRC W 06/27/2017 SANTA BARNES MD Ot E11.9 TYPE 2 DIABETES MELLITUS WITHOUT COMPLIC 06/27/2017 SANTA BARNES MD, Ot E86.0 DEHYDRATION 06/27/2017 SANTA BARNES MD Ot F03.90 UNSPECIFIED DEMENTIA WITHOUT BEHAVIORAL 06/27/2017 SANAT BARNES MD, Ot F32.9 MAJOR DEPRESSIVE DISORDER, SINGLE EPISOD 06/27/2017 SANTA BARNES MD, Ot J45.909 UNSPECIFIED ASTHMA, UNCOMPLICATED 06/27/2017 SANTA BARNES MD Ot M81.0 AGE-RELATED OSTEOPOROSIS W/O CURRENT PAT 06/27/2017 SANTA BARNES MD Ot R53.1 WEAKNESS 06/27/2017 SANTA BARNES MD Ot R55 SYNCOPE AND COLLAPSE 06/27/2017 SANTA BARNES MD Ot Z79.82 CARE HOME (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 ASPIRIN 06/27/2017 SANTA BARNES MD Ot Z86.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 (TIA), AND CEREB INFRC W 06/27/2017 SANTA BARNES MD Ot Z88.0 ALLERGY STATUS TO PENICILLIN 06/27/2017 SANTA BARNES MD Ot Z88.8 ALLERGY STATUS TO OTH DRUG/MEDS/BIOL SUB 06/27/2017 SANTA BARNES MD Ot Z90.710 ACQUIRED ABSENCE OF BOTH CERVIX AND UTER 06/27/2017 SANTA BARNES MD Ot Z90.89 ACQUIRED ABSENCE OF OTHER ORGANS 06/29/2017 SANTA BARNES MD Ot E11.9 TYPE 2 DIABETES MELLITUS WITHOUT COMPLIC 06/29/2017 SANTA BARNES MD Ot E86.0 DEHYDRATION 06/29/2017 SANTA BARNES MD Ot F03.90 UNSPECIFIED DEMENTIA WITHOUT BEHAVIORAL 06/29/2017 SANTA BARNES MD Ot F32.9 MAJOR DEPRESSIVE DISORDER, SINGLE EPISOD 06/29/2017 SANTA BARNES MD Ot J45.909 UNSPECIFIED ASTHMA, UNCOMPLICATED 06/29/2017 SANTA BARNES MD Ot M81.0 AGE-RELATED OSTEOPOROSIS W/O CURRENT PAT 06/29/2017 SANTA BARNES MD Ot R53.1 WEAKNESS 06/29/2017 SANTA BARNES MD Ot R55 SYNCOPE AND COLLAPSE 06/29/2017 SANTA BARNES MD Ot Z79.82 CARE HOME (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 ASPIRIN 06/29/2017 SANTA BARNES MD Ot Z86.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 (TIA), AND CEREB INFRC W 06/29/2017 SANTA BARNES MD Ot Z88.0 ALLERGY STATUS TO PENICILLIN 06/29/2017 SANTA BARNES MD Ot Z88.8 ALLERGY STATUS TO OTH DRUG/MEDS/BIOL SUB 06/29/2017 SANTA BARNES MD Ot Z90.710 ACQUIRED ABSENCE OF BOTH CERVIX AND UTER 06/29/2017 SANTA BARNES MD Ot Z90.89 ACQUIRED ABSENCE OF OTHER ORGANS 10/16/2017 Ot 724.4 LUMBOSACRAL NEURITIS NOS 10/16/2017 Ot 724.02 SPINAL STENOSIS, LUMBAR REG, W/OUT NEURO 10/16/2017 Ot 722.10 LUMBAR DISC DISPLACEMENT 10/16/2017 Ot V72.63 PRE- PROCEDURAL LABORATORY EXAMINATION 10/16/2017 Ot V74.8 SCREEN- BACTERIAL DIS NEC 10/16/2017 DARELL ORTIZ MD Ot 722.10 LUMBAR DISC DISPLACEMENT 10/16/2017 DARELL ORTIZ MD Ot 724.02 SPINAL STENOSIS, LUMBAR REG, W/OUT NEURO 10/16/2017 SCOTTIE LEONARD MD Ot 724.5 BACKACHE NOS 10/16/2017 ANTHONY LEONARD MDEEN M Ot 737.30 IDIOPATHIC SCOLIOSIS 10/16/2017 HORACIO ELIZABETH, SCOTTIE Boggs Ot 780.2 SYNCOPE AND COLLAPSE 10/16/2017 TREMAYNE ROMAN Ot 721.1 CERV SPONDYL W MYELOPATH 10/16/2017 SCOTTIE LEONARD MD Ot 780.2 SYNCOPE AND COLLAPSE 10/16/2017 JASBIR OSBORN Ot 721.1 CERV SPONDYL W MYELOPATH 10/16/2017 JASBIR OSBORN Ot 733.00 OSTEOPOROSIS NOS 10/16/2017 MARIE MART, JASBIR Queen Ot V49.81 ASYMPT POSTMENOPAUSAL STATUS (AGE-RELATE 10/16/2017 ALEXUS ELIZABETH, ZULEYMA Freeman Ot M79.671 PAIN IN RIGHT FOOT 10/16/2017 TRACE CUEVAS BROKE HANDLER Ot R41.3 OTHER AMNESIA 10/16/2017 TRACE CUEVAS BROKE HANDLER Ot R51 HEADACHE 10/16/2017 BLANCA PICKENS TECHNOLOGY INSTRUCTOR Ot 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 10/16/2017 MAYUR ELIZABETH FACC, ALI FACP CCDS Ot E78.0 PURE HYPERCHOLESTEROLEMIA 10/16/2017 MAYUR ELIZABETH FACC, ALI FACP CCDS Ot I10 ESSENTIAL (PRIMARY) HYPERTENSION 10/16/2017 MAYUR ELIZABETH FACC, ALI FACP CCDS Ot 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 10/16/2017 MAYUR ELIZABETH FACC, ALI FACP CCDS Ot R06.02 SHORTNESS OF BREATH 10/16/2017 MAYUR ELIZABETH FACC, ALI FACP CCDS Ot R73.01 IMPAIRED FASTING GLUCOSE 10/16/2017 BLANCA PICKENS TECHNOLOGY INSTRUCTOR Ot M54.5 LOW BACK PAIN 10/16/2017 BLANCA PICKENS TECHNOLOGY INSTRUCTOR Ot Z98.1 ARTHRODESIS STATUS 10/16/2017 ZULEYMA VAUGHAN MD Ot I10 ESSENTIAL (PRIMARY) HYPERTENSION 10/16/2017 ZULEYMA VAUGHAN MD Ot Z86.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 (TIA), AND CEREB INFRC W 10/16/2017 SANTA BARNES MD Ot E11.9 TYPE 2 DIABETES MELLITUS WITHOUT COMPLIC 10/16/2017 SANTA BARNES MD Ot F03.90 UNSPECIFIED DEMENTIA WITHOUT BEHAVIORAL 10/16/2017 SANTA BARNES MD Ot F32.9 MAJOR DEPRESSIVE DISORDER, SINGLE EPISOD 10/16/2017 SANTA BARNES MD, Ot J45.909 UNSPECIFIED ASTHMA, UNCOMPLICATED 10/16/2017 SANTA BARNES MD, Ot M81.0 AGE-RELATED OSTEOPOROSIS W/O CURRENT PAT 10/16/2017 SANTA BARNES MD, Ot R22.0 LOCALIZED SWELLING, MASS AND LUMP, HEAD 10/16/2017 SANTA BARNES MD, Ot T78.1XXA OTH ADVERSE FOOD REACTIONS, NOT ELSEWHER 10/16/2017 SANTA BARNES MD, Ot 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 10/16/2017 SANTA BARNES MD, Ot Z86.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 (TIA), AND CEREB INFRC W 10/16/2017 SANTA BARNES MD, Ot Z88.0 ALLERGY STATUS TO PENICILLIN 10/16/2017 SANTA BARNES MD, Ot Z88.8 ALLERGY STATUS TO OTH DRUG/MEDS/BIOL SUB 10/16/2017 SNATA BARNES MD Ot Z90.710 ACQUIRED ABSENCE OF BOTH CERVIX AND UTER 10/16/2017 SANTA BARNES MD Ot Z90.89 ACQUIRED ABSENCE OF OTHER ORGANS 10/16/2017 SANTA BARNES MD Ot Z91.018 ALLERGY TO OTHER FOODS 10/16/2017 SANTA BARNES MD Ot Z91.14 PATIENT'S OTHER NONCOMPLIANCE WITH MEDIC 10/16/2017 SANTA BARNES MD Ot Z98.84 BARIATRIC SURGERY STATUS 10/19/2017 SANTA BARNES MD Ot E11.9 TYPE 2 DIABETES MELLITUS WITHOUT COMPLIC 10/19/2017 SANTA BARNSE MD Ot F03.90 UNSPECIFIED DEMENTIA WITHOUT BEHAVIORAL 10/19/2017 SANTA BARNES MD, Ot F32.9 MAJOR DEPRESSIVE DISORDER, SINGLE EPISOD 10/19/2017 SANTA BARNES MD, Ot J45.909 UNSPECIFIED ASTHMA, UNCOMPLICATED 10/19/2017 SANTA BARNES MD, Ot M81.0 AGE-RELATED OSTEOPOROSIS W/O CURRENT PAT 10/19/2017 SANTA BARNES MD, Ot R22.0 LOCALIZED SWELLING, MASS AND LUMP, HEAD 10/19/2017 SANTA BARNES MD, Ot T78.1XXA OTH ADVERSE FOOD REACTIONS, NOT ELSEWHER 10/19/2017 SANTA BARNES MD, Ot 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 10/19/2017 SANTA BARNES MD, Ot Z86.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 (TIA), AND CEREB INFRC W 10/19/2017 SANTA BARNES MD, Ot Z88.0 ALLERGY STATUS TO PENICILLIN 10/19/2017 SANTA BARNES MD, Ot Z88.8 ALLERGY STATUS TO OTH DRUG/MEDS/BIOL SUB 10/19/2017 SANAT BARNES MD, Ot Z90.710 ACQUIRED ABSENCE OF BOTH CERVIX AND UTER 10/19/2017 SANTA BARNES MD, Ot Z90.89 ACQUIRED ABSENCE OF OTHER ORGANS 10/19/2017 SANTA BARNES MD, Ot Z91.018 ALLERGY TO OTHER FOODS 10/19/2017 SANTA BARNES MD, Ot Z91.14 PATIENT'S OTHER NONCOMPLIANCE WITH MEDIC 10/19/2017 SANTA BARNES MD Ot Z98.84 BARIATRIC SURGERY STATUS 10/22/2017 SANTA BARNES MD Ot E11.9 TYPE 2 DIABETES MELLITUS WITHOUT COMPLIC 10/22/2017 SANTA BARNES MD Ot F03.90 UNSPECIFIED DEMENTIA WITHOUT BEHAVIORAL 10/22/2017 SATNA BARNES MD Ot F32.9 MAJOR DEPRESSIVE DISORDER, SINGLE EPISOD 10/22/2017 SANTA BARNES MD, Ot J45.909 UNSPECIFIED ASTHMA, UNCOMPLICATED 10/22/2017 SANTA BARNES MD Ot M81.0 AGE-RELATED OSTEOPOROSIS W/O CURRENT PAT 10/22/2017 SANTA BARNES MD, Ot R22.0 LOCALIZED SWELLING, MASS AND LUMP, HEAD 10/22/2017 SANTA BARNES MD, Ot T78.1XXA OTH ADVERSE FOOD REACTIONS, NOT ELSEWHER 10/22/2017 SANTA BARNES MD, Ot Z79.02 CARE HOME (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 10/22/2017 SANTA BARNES MD, Ot Z86.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 (TIA), AND CEREB INFRC W 10/22/2017 [place] MD, SANTA D Ot Z88.0 ALLERGY STATUS TO PENICILLIN 10/22/2017 SANTA BARNES MD Ot Z88.8 ALLERGY STATUS TO OTH DRUG/MEDS/BIOL SUB 10/22/2017 SANTA BARNES MD Ot Z90.710 ACQUIRED ABSENCE OF BOTH CERVIX AND UTER 10/22/2017 SANTA BARNES MD Ot Z90.89 ACQUIRED ABSENCE OF OTHER ORGANS 10/22/2017 SANTA BARNES MD Ot Z91.018 ALLERGY TO OTHER FOODS 10/22/2017 SANTA BARNES MD Ot Z91.14 PATIENT'S OTHER NONCOMPLIANCE WITH MEDIC 10/22/2017 SANTA BARNES MD Ot Z98.84 BARIATRIC SURGERY STATUS 01/20/2018 BLANCA PICKENS APRN Ot G47.33 OBSTRUCTIVE SLEEP APNEA (ADULT) (PEDIATR 08/03/2018 HORACIO ELIZABETH, SCOTTIE Boggs Ot 724.5 BACKACHE NOS 08/03/2018 SCOTTIE LEONARD MD Ot 737.30 IDIOPATHIC SCOLIOSIS 08/03/2018 SCOTTIE LEONARD MD Ot 780.2 SYNCOPE AND COLLAPSE 08/03/2018 TREMAYNE ROMAN Ot 721.1 CERV SPONDYL W MYELOPATH 08/03/2018 SCOTTIE LEONARD MD Ot 780.2 SYNCOPE AND COLLAPSE 08/03/2018 JASBIR OSBORN Ot 721.1 CERV SPONDYL W MYELOPATH 08/03/2018 JASBIR OSBORN Ot 733.00 OSTEOPOROSIS NOS 08/03/2018 JASBIR OSBORN Ot V49.81 ASYMPT POSTMENOPAUSAL STATUS (AGE-RELATE 08/03/2018 ALEXUS ELIZABETH, ZULEYMA Freeman Ot M79.671 PAIN IN RIGHT FOOT 08/03/2018 TRACE CUEVASP Ot R41.3 OTHER AMNESIA 08/03/2018 TRACE CUEVASP Ot R51 HEADACHE 08/03/2018 BLANCA PICKENS APRN Ot 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 08/03/2018 MAYUR ELIZABETH FACC, ALI FACP CCDS Ot E78.0 PURE HYPERCHOLESTEROLEMIA 08/03/2018 MAYUR ELIZABETH FACC, ALI FACP CCDS Ot I10 ESSENTIAL (PRIMARY) HYPERTENSION 08/03/2018 MAYUR ELIZABETH FACC, ALI FACP CCDS Ot 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 08/03/2018 MAYUR ELIZABETH FAC, ALI [facility] CCDS Ot R06.02 SHORTNESS OF BREATH 08/03/2018 MAYUR ELIZABETH FAC, ALI [facility] CCDS Ot R73.01 IMPAIRED FASTING GLUCOSE 08/03/2018 CELIO BLANCA Ambrose TECHNOLOGY INSTRUCTOR Ot M54.5 LOW BACK PAIN 08/03/2018 CELIO BLANCA M TECHNOLOGY INSTRUCTOR Ot Z98.1 ARTHRODESIS STATUS 08/03/2018 ZULEYMA VAUGHAN MD Ot I10 ESSENTIAL (PRIMARY) HYPERTENSION 08/03/2018 ZULEYMA VAUGHAN MD Ot Z86.73 PRSNL HX [...] plasma albumin measurement (mass/volume) 3.4 g/dL 3.2-4.5 Bacterial blood culture - 06/27/17 09:38 FREE TEXT EXTERNAL SEE COMMENT NRG QUANTITY OF GROWTH Isolated NRG Bacterial blood culture [id number] NRG Bacterial blood culture - 06/27/17 10:25 Bacterial blood culture NG NRG IONIZED CALCIUM (SEND OFF) - 06/27/17 12:13 Blood ionized calcium measurement (mass/volume) 1.05 % 1.16-1.32 Venous blood ionized calcium measurement adjusted to pH 7.4 (moles/volume) 1.01 % 1.16-1.32 pH measurement 7.32 NRG Encounters ACCT No. Visit Date/Time Discharge Status Pt. Type Provider Facility Loc./Unit Complaint [id number] 01/20/2018 15:00:00 01/20/2018 23:59:59 CLS Preadmit BLANCA PICKENS APRN [facility] SLEEP SNORING, HX OF STROKE, EDS [id number] 10/16/2017 21:09:00 10/16/2017 22:45:00 DIS Emergency SANTA BARNES MD [facility] ER FACE SWELLING [id number] 06/27/2017 09:29:00 06/27/2017 12:50:00 DIS Emergency SANTA BARNES MD [facility] ER FALL [id number] 03/03/2017 18:38:00 03/03/2017 20:25:00 DIS Emergency BOUCHRA TONG APRN [facility] ER PULLED TUBE OUT [id number] 03/02/2017 16:29:00 03/02/2017 18:15:00 DIS Emergency REN CASTRO [facility] ER FEEDING TUBE ISSUES [id number] 12/22/2016 10:22:00 12/22/2016 11:40:00 DIS Emergency SANAT BARNES MD [facility] ER STROKE SYMPTOMS [id number] 08/19/2016 12:16:00 08/19/2016 23:59:59 CLS Outpatient ZULEYMA VAUGHAN MD [facility] CARD HX OF STROKE,HTN [id number] 08/04/2016 10:29:00 08/04/2016 12:27:00 DIS Emergency ADRIANA TRIPP DO [facility] ER STROKE [id number] 07/12/2016 13:02:00 07/12/2016 23:59:59 CLS Outpatient BLANCA PICKENS TECHNOLOGY INSTRUCTOR [facility] RAD LOW BACK PAIN [id number] 02/01/2016 11:49:00 02/01/2016 23:59:59 CLS Outpatient MAYUR ELIZABETH FACC, LUIS FERNANDO POP CCDS [facility] CARD SOB,CVA,HTN, IFG [id number] 01/09/2016 14:01:00 01/09/2016 23:59:59 CLS Outpatient BLANCA PICKENS TECHNOLOGY INSTRUCTOR [facility] RAD HX OF STROKE-I63.8 [id number] 12/21/2015 14:04:00 12/21/2015 23:59:59 CLS Outpatient TRACE CUEVAS [facility] RAD MEMORY LOSS, HEADACHES [id number] 09/10/2015 13:20:00 09/10/2015 14:07:00 DIS Outpatient CRISTY MONTES MD [facility] CARD SACROCOCCYGEAL DISORDER [id number] 03/10/2015 13:50:00 03/10/2015 23:59:59 CLS Outpatient ZULEYMA VAUGHAN MD [facility] RAD R HEEL PAIN [id number] 12/07/2014 11:24:00 12/07/2014 23:59:59 CLS Outpatient JASBIR OSBORN [facility] RAD OSTEOPOROSIS [id number] 06/22/2014 09:30:00 06/22/2014 23:59:59 CLS Preadmit SCOTTIE LEONARD MD [facility] CARD NEAR SYNCOPE [id number] 03/23/2014 09:30:00 06/21/2014 00:01:00 DIS Outpatient SCOTTIE LEONARD MD [facility] CARD NEAR SYNCOPE [id number] 04/10/2014 14:42:00 04/10/2014 23:59:59 CLS Outpatient TREMAYNE ROMAN [facility] RAD NECK PAIN [id number] 03/22/2014 14:25:00 03/22/2014 23:59:59 CLS Outpatient SCOTTIE LEONARD MD [facility] LAB SYNCOPE [id number] 01/26/2014 13:40:00 01/26/2014 23:59:59 CLS Outpatient SCOTTIE LEONARD MD [facility] RAD BACK PAIN [id number] 11/09/2013 17:53:00 11/09/2013 23:59:59 CLS Outpatient SCOTTIE LEONARD MD [facility] RAD BACK PAIN [id number] 01/26/2013 13:00:00 02/14/2013 14:15:00 DIS Outpatient DARELL COURTNEY [facility] REHAB L1-L5 PSF [id number] 10/29/2012 09:47:00 10/29/2012 23:59:59 CLS Outpatient DARELL ORTIZ MD [facility] RAD LUMBAR STENOSIS [id number] 09/22/2012 20:20:00 09/23/2012 00:49:00 DIS Emergency QASIM DOADRIANA [facility] ER CHEST/L ARM DISCOMFORT [id number] 09/06/2012 07:48:00 09/20/2012 10:03:00 DIS Outpatient CORNELIO RAMIREZ [facility] REHAB R HIP BURSITIS;LOW BACK PAIN [id number] 09/14/2012 14:16:00 09/14/2012 23:59:59 CLS Outpatient DARELL ORTIZ MD [facility] RAD LUMBAR STENOSIS [id number] 06/14/2012 10:22:00 Document Registration [id number] 06/11/2012 12:59:00 Document Registration [id number] 05/31/2012 14:56:00 Document Registration [id number] 05/12/2012 14:25:00 Document Registration [id number] 03/04/2012 13:32:00 Document Registration [id number] 07/23/2009 06:38:00 Document Registration [id number] 12/07/2014 11:25:50 ACT Document Registration [id number] 07/01/2017 11:47:11 Document Registration [id number] 03/18/2017 00:52:00 03/18/2017 23:59:59 CLS Outpatient
[2018-09-20 06:19] LABS: BACTERIA,URINE NEGATIVE /HPF; SQUAMOUS EPITHELIAL CELL,UR 0-2 /HPF
[2018-09-20] MEDS ORDERED: LEVETIRACETAM INJECTION 500 MG in NS (IVPB) 100 ML IV ONE (06:45)
--- NOTE | 2018-09-20 06:56 | Diagnostic Imaging Report ---
INDICATION: Shortness of breath. COMPARISON: 06/27/2017. FINDINGS: Single view of the chest demonstrates clear lungs bilaterally. The heart is normal. There is no pneumothorax. Osseous structures are normal. IMPRESSION: Negative chest. Dictated by: Dictated on workstation # [id number]
--- NOTE | 2018-09-20 06:59 | Diagnostic Imaging Report ---
PROCEDURE: CT head wo r/o stroke. TECHNIQUE: Multiple contiguous axial images were obtained through the brain without the use of intravenous contrast. Auto Exposure Controls were utilized during the CT exam to meet ALARA standards for radiation dose reduction. INDICATION: Confusion, stroke COMPARISON: 06/27/2017 FINDINGS: Stable area of encephalomalacia seen in the left frontal parietal lobe. There is no new focus of acute ischemia or hemorrhage. Ventricular size is stable. There is no extra-axial fluid collection. No shift identified. The bony calvarium, visualized paranasal sinuses and mastoids are unchanged. Impression: No acute intracranial abnormality. Agree with preliminary report. Dictated by: Dictated on workstation # [id number]
--- OUTSIDE RECORDS SUMMARY | 2018-09-20 07:23 | XMS REPORT | Clinical Summary ---
Author Author [facility] Organization [facility] Address Unknown Phone Unavailable Care Team Providers Care Crm Functional Analyst Name Role Phone Marylu Ochoa MD PCP Source Comments Some departments are not documenting in the electronic medical record. If you do not see the information that you expected, contact Release of Information in the Health Information Management department at [phone] for further assistance in locating additional records.[facility] Allergies Comments Active Allergy Reactions Severity Noted [...] Overview: Added automatically from request for surgery [id number] Dysphagia 12/22/2016 Overview: Added automatically from request for surgery [id number] Resolved Problems Problem Noted Date Resolved Date [...] / Lot Implanted Type Area Manufactur er [id number] / NA / NA Screw Neuro 1.5x4mm Drill Free - SANJIVS BALWINDER Sna CMF Implanted: Qty: 4 on 12/24/2016 by IMPLANTS Antwan Guadarrama MD [id number] / NA / NA Cover Myra Hole 17mm .3mm Contour Left: Skull KATHY BRITT Titanium - Sna CMF Implanted: Qty: 1 on 12/24/2016 by Antwan Muñiz MD 07/15/2017 [id number] / N/A / [id number] Device Closure 70cm 6fr Angio-Seal Right: Femoral [...] on file. For more information, please contact: [facility] [address] [place] [address] Date Inactivated Comments Code Status Date Activated 01/30/2017 2:09 PM Full Code 01/06/2017 4:08 PM Provider has discussed Code Status No, more discussion w/Patient or Family? needed 01/06/2017 4:08 PM Full Code 12/22/2016 12:57 PM Provider has discussed Code Status No, more discussion w/Patient or Family? needed
--- OUTSIDE RECORDS SUMMARY | 2018-09-20 08:12 | XMS REPORT | Continuity of Care Document ---
Author Organization Unknown Address Unknown Allergies Active Description Code Type Severity Reaction Onset Reported/Identified Relationship to Patient Clinical Status Yes CELEBREX [id number] BRANDNAME N/ A N/A Yes CELECOXIB 12216549 DRUG N/A HIVES, THROAT SWELLED Yes PENICILLINS (CLASS) 09873686 CLASS N/A HIVES Yes ROFECOXIB [id number] DRUG N/A HIVES Yes PAULINO INHIBITOR 2 PAULINO INHIBITOR 2 Unknown HIVES 12/21/2015 Yes Penicillins [id number] Drug Allergy Unknown HIVES 12/21/2015 Medications There [...] 09/10/2015 CRISTY MONTES MD Ot Z79.899 OTHER CORRECTION (CURRENT) DRUG THERAPY 09/17/2015 Ot 724.4 LUMBOSACRAL [...] JYOTI ELIZABETH, CRISTY Starr Ot Z79.899 OTHER FRUIT FARMWORKER (CURRENT) DRUG THERAPY 12/21/2015 SCOTTIE LEONARD MD [...] PAIN IN RIGHT FOOT 01/02/2016 TRACE CUEVAS SPLUNK ARCHITECT Ot R41.3 OTHER AMNESIA 01/02/2016 TRACE CUEVAS SPLUNK ARCHITECT Ot R51 HEADACHE 01/09/2016 Ot 724.4 LUMBOSACRAL [...] PAIN IN RIGHT FOOT 01/09/2016 TRACE CUEVAS SPLUNK ARCHITECT Ot R41.3 OTHER AMNESIA 01/09/2016 TRACE CUEVASP Ot R51 HEADACHE 01/09/2016 BLANCA PICKENS DOOR ATTENDANT Ot 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 01/10/2016 Ot [...] PAIN IN RIGHT FOOT 01/10/2016 TRACE CUEVAS SPLUNK ARCHITECT Ot R41.3 OTHER AMNESIA 01/10/2016 TRACE CUEVAS SPLUNK ARCHITECT Ot R51 HEADACHE 01/10/2016 BLANCA PICKENS DOOR ATTENDANT Ot 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 01/10/2016 BLANCA PICKENS DOOR ATTENDANT Ot 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 01/11/2016 TRACE CUEVAS SPLUNK ARCHITECT Ot R41.3 OTHER AMNESIA 01/11/2016 TRACE CUEVAS SPLUNK ARCHITECT Ot R51 HEADACHE 01/17/2016 TRACE CUEVAS SPLUNK ARCHITECT Ot R41.3 OTHER AMNESIA 01/17/2016 TRACE CUEVAS SPLUNK ARCHITECT Ot R51 HEADACHE 01/22/2016 Ot 724.4 LUMBOSACRAL [...] PAIN IN RIGHT FOOT 01/22/2016 TRACE CUEVAS SPLUNK ARCHITECT Ot R41.3 OTHER AMNESIA 01/22/2016 TRACE CUEVAS SPLUNK ARCHITECT Ot R51 HEADACHE 01/22/2016 BLANCA PICKENS DOOR ATTENDANT Ot 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 01/30/2016 BLANCA PICKENS DOOR ATTENDANT Ot 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 02/01/2016 MAYUR ELIZABETH FACC, ALI FACP CCDS Ot R06.02 SHORTNESS OF BREATH 02/01/2016 MAYUR ELIZABETH FACC, ALI FACP CCDS Ot R06.02 SHORTNESS OF BREATH 02/04/2016 MAYUR ELIZABETH FACC, ALI FACP CCDS Ot R06.02 SHORTNESS OF BREATH 02/06/2016 BLANCA PICKENS DOOR ATTENDANT Ot 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 02/22/2016 MAYUR [...] I10 ESSENTIAL (PRIMARY) HYPERTENSION 03/12/2016 MAYUR MD [facility], ALI FACP CCDS Ot 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 03/12/2016 MAYUR [facility], ALI FACP CCDS Ot R06.02 SHORTNESS OF BREATH 03/12/2016 MAYUR [facility], ALI FACP CCDS Ot R73.01 IMPAIRED FASTING GLUCOSE 07/15/2016 BLANCA PICKENS APRN Ot M54.5 LOW BACK PAIN 07/15/2016 BLANCA PICKENS DOOR ATTENDANT Ot Z98.1 ARTHRODESIS STATUS 07/17/2016 BLANCA PICKENS APRN Ot M54.5 LOW BACK PAIN 07/17/2016 BLANCA PICKENS APRN Ot Z98.1 ARTHRODESIS STATUS 08/04/2016 ADRIANA TRIPP DO Ot E11.9 TYPE 2 DIABETES MELLITUS WITHOUT COMPLIC 08/04/2016 ADRIANA TRIPP DO Ot F03.90 UNSPECIFIED DEMENTIA WITHOUT BEHAVIORAL 08/04/2016 ADRIANA TRIPP DO Ot G45.9 TRANSIENT CEREBRAL ISCHEMIC ATTACK, UNSP 08/04/2016 ADRIANA RTIPP DO Ot R47.81 SLURRED SPEECH 08/04/2016 ADRIANA TRIPP DO Ot Z79.82 FRUIT FARMWORKER (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 08/04/2016 ADRIANA TRIPP DO Ot Z79.899 OTHER CORRECTION (CURRENT) DRUG THERAPY 08/05/2016 BLANCA PICKENS APRN Ot M54.5 LOW BACK PAIN 08/05/2016 BLANCA PICKENS APRN Ot Z98.1 ARTHRODESIS STATUS 08/13/2016 BLANCA PICKENS APRN Ot M54.5 LOW BACK PAIN 08/13/2016 CELIO BLANCA Ambrose DOOR ATTENDANT Ot Z98.1 ARTHRODESIS STATUS 08/20/2016 ZULEYMA VAUGHAN [...] MUS 12/22/2016 SANTA BARNES MD Ot Z79.82 CORRECTION (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 ASPIRIN 12/22/2016 SANTA BARNES [...] MUS 12/24/2016 SANTA BARNES MD, Ot Z79.82 CORRECTION (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 ASPIRIN 12/24/2016 SANTA BARNES [...] MUS 12/28/2016 SANTA BARNES MD Ot Z79.82 CORRECTION (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 ASPIRIN 12/28/2016 SANTA BARNES [...] GASTROINTESTINAL PROSTH 03/02/2017 REN CASTRO Ot Z79.01 CORRECTION (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 ANTICOAGULANT 03/02/2017 REN CASTRO [...] MUS 03/09/2017 SANTA BARNES MD, Ot Z79.82 CORRECTION (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 ASPIRIN 03/09/2017 SANTA BARNES [...] GASTROINTESTINAL PROSTH 03/17/2017 REN CASTRO Ot Z79.01 CORRECTION (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 ANTICOAGULANT 03/17/2017 REN CASTRO [...] PAIN IN RIGHT FOOT 06/10/2017 TRACE CUEVAS SPLUNK ARCHITECT Ot R41.3 OTHER AMNESIA 06/10/2017 TRACE CUEVAS SPLUNK ARCHITECT Ot R51 HEADACHE 06/10/2017 BLANCA PICKENS DOOR ATTENDANT Ot 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 06/10/2017 MAYUR [...] Ot 722.10 LUMBAR DISC DISPLACEMENT 06/27/2017 DIANA ELIZABTEH, DARELL Queen Ot 724.02 SPINAL STENOSIS, LUMBAR [...] R73.01 IMPAIRED FASTING GLUCOSE 06/27/2017 BLANCA PICKENS DOOR ATTENDANT Ot M54.5 LOW BACK PAIN 06/27/2017 BLANCA PICKENS DOOR ATTENDANT Ot Z98.1 ARTHRODESIS STATUS 06/27/2017 ZULEYMA VAUGHAN MD Ot I10 ESSENTIAL (PRIMARY) HYPERTENSION 06/27/2017 ZULEYMA VAUGHAN MD Ot Z86.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 (TIA), AND CEREB INFRC W 06/27/2017 SANTA BARNES MD Ot E11.9 TYPE 2 DIABETES MELLITUS WITHOUT COMPLIC 06/27/2017 SANTA BARNES MD, Ot E86.0 DEHYDRATION 06/27/2017 SANTA BARNES MD Ot F03.90 UNSPECIFIED DEMENTIA WITHOUT BEHAVIORAL 06/27/2017 SANTA BARNES MD, Ot F32.9 MAJOR DEPRESSIVE DISORDER, SINGLE EPISOD 06/27/2017 SANTA BARNES MD, Ot J45.909 UNSPECIFIED ASTHMA, UNCOMPLICATED 06/27/2017 SANTA BARNES MD Ot M81.0 AGE-RELATED OSTEOPOROSIS W/O CURRENT PAT 06/27/2017 SANTA BARNES MD Ot R53.1 WEAKNESS 06/27/2017 SANTA BARNES MD Ot R55 SYNCOPE AND COLLAPSE 06/27/2017 SANTA BARNES MD Ot Z79.82 CORRECTION (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 ASPIRIN 06/27/2017 SANTA BARNES [...] COLLAPSE 06/29/2017 SANTA BARNES MD Ot Z79.82 CORRECTION (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 ASPIRIN 06/29/2017 SANTA BARNES [...] PAIN IN RIGHT FOOT 10/16/2017 TRACE CUEVAS SPLUNK ARCHITECT Ot R41.3 OTHER AMNESIA 10/16/2017 TRACE CUEVAS SPLUNK ARCHITECT Ot R51 HEADACHE 10/16/2017 BLANCA PICKENS DOOR ATTENDANT Ot 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 10/16/2017 MAYUR [...] R73.01 IMPAIRED FASTING GLUCOSE 10/16/2017 BLANCA PICKENS DOOR ATTENDANT Ot M54.5 LOW BACK PAIN 10/16/2017 BLANCA PICKENS DOOR ATTENDANT Ot Z98.1 ARTHRODESIS STATUS 10/16/2017 ZULEYMA VAUGHAN [...] ELSEWHER 10/16/2017 SANTA BARNES MD, Ot 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.02 FRUIT 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 (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 10/16/2017 SANTA BARNES MD, Ot Z86.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 (TIA), AND CEREB INFRC W 10/16/2017 SANTA BARNES MD, Ot Z88.0 ALLERGY STATUS TO PENICILLIN 10/16/2017 SANTA BARNES MD, Ot Z88.8 ALLERGY STATUS TO OTH DRUG/MEDS/BIOL SUB 10/16/2017 SANTA BARNES MD Ot Z90.710 ACQUIRED ABSENCE [...] 2 DIABETES MELLITUS WITHOUT COMPLIC 10/19/2017 SANTA BARNES MD Ot F03.90 UNSPECIFIED DEMENTIA [...] ELSEWHER 10/19/2017 SANTA BARNES MD, Ot 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.02 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 (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 10/19/2017 SANTA BARNES MD, Ot Z86.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 (TIA), AND CEREB INFRC W 10/19/2017 SANTA BARNES MD, Ot Z88.0 ALLERGY STATUS TO PENICILLIN 10/19/2017 SANTA BARNES MD, Ot Z88.8 ALLERGY STATUS TO OTH DRUG/MEDS/BIOL SUB 10/19/2017 SANTA BARNES MD, Ot Z90.710 ACQUIRED ABSENCE [...] Ot F03.90 UNSPECIFIED DEMENTIA WITHOUT BEHAVIORAL 10/22/2017 SANTA BARNES MD Ot F32.9 MAJOR DEPRESSIVE DISORDER, SINGLE EPISOD 10/22/2017 SANTA BARNES MD, Ot J45.909 UNSPECIFIED ASTHMA, UNCOMPLICATED 10/22/2017 SANTA BARNES MD Ot M81.0 AGE-RELATED OSTEOPOROSIS W/O CURRENT PAT 10/22/2017 SANTA BARNES MD, Ot R22.0 LOCALIZED SWELLING, MASS AND LUMP, HEAD 10/22/2017 SANTA BARNES MD, Ot T78.1XXA OTH ADVERSE FOOD REACTIONS, NOT ELSEWHER 10/22/2017 SANTA BARNES MD, Ot Z79.02 CORRECTION (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 10/22/2017 SANTA BARNES MD, Ot Z86.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 (TIA), AND CEREB INFRC W 10/22/2017 NANWALEK MD, SANTA D Ot Z88.0 ALLERGY STATUS [...] CEREBRAL INFARCTION 08/03/2018 MAYUR ELIZABETH FAC, ALI [facility] CCDS Ot R06.02 SHORTNESS OF BREATH 08/03/2018 MAYUR ELIZABETH FAC, ALI [facility] CCDS Ot R73.01 IMPAIRED FASTING GLUCOSE 08/03/2018 CELIO BLANCA Ambrose DOOR ATTENDANT Ot M54.5 LOW BACK PAIN 08/03/2018 CELIO BLANCA M DOOR ATTENDANT Ot Z98.1 ARTHRODESIS STATUS 08/03/2018 ZULEYMA VAUGHAN [...] OF GROWTH Isolated NRG Bacterial blood culture [id number] NRG Bacterial blood culture - 06/27/17 10:25 Bacterial blood culture NG NRG IONIZED CALCIUM (SEND OFF) - 06/27/17 12:13 Blood ionized calcium measurement (mass/volume) 1.05 % 1.16-1.32 Venous blood ionized calcium measurement adjusted to pH 7.4 (moles/volume) 1.01 % 1.16-1.32 pH measurement 7.32 NRG Encounters ACCT No. Visit Date/Time Discharge Status Pt. Type Provider Facility Loc./Unit Complaint [id number] 01/20/2018 15:00:00 01/20/2018 23:59:59 CLS Preadmit BLANCA PICKENS APRN [facility] SLEEP SNORING, HX OF STROKE, EDS [id number] 10/16/2017 21:09:00 10/16/2017 22:45:00 DIS Emergency SANTA BARNES MD [facility] ER FACE SWELLING [id number] 06/27/2017 09:29:00 06/27/2017 12:50:00 DIS Emergency SANTA BARNES MD [facility] ER FALL [id number] 03/03/2017 18:38:00 03/03/2017 20:25:00 DIS Emergency BOUCHRA TONG APRN [facility] ER PULLED TUBE OUT [id number] 03/02/2017 16:29:00 03/02/2017 18:15:00 DIS Emergency REN CASTRO [facility] ER FEEDING TUBE ISSUES [id number] 12/22/2016 10:22:00 12/22/2016 11:40:00 DIS Emergency SANTA BARNES MD [facility] ER STROKE SYMPTOMS [id number] 08/19/2016 12:16:00 08/19/2016 23:59:59 CLS Outpatient ZULEYMA VAUGHAN MD [facility] CARD HX OF STROKE,HTN [id number] 08/04/2016 10:29:00 08/04/2016 12:27:00 DIS Emergency ADRIANA TRIPP DO [facility] ER STROKE [id number] 07/12/2016 13:02:00 07/12/2016 23:59:59 CLS Outpatient BLANCA PICKENS DOOR ATTENDANT [facility] RAD LOW BACK PAIN [id number] 02/01/2016 11:49:00 02/01/2016 23:59:59 CLS Outpatient MAYUR ELIZABETH FACC, LUIS FERNANDO POP CCDS [facility] CARD SOB,CVA,HTN, IFG [id number] 01/09/2016 14:01:00 01/09/2016 23:59:59 CLS Outpatient BLANCA PICKENS DOOR ATTENDANT [facility] RAD HX OF STROKE-I63.8 [id number] 12/21/2015 14:04:00 12/21/2015 23:59:59 CLS Outpatient TRACE CUEVAS [facility] RAD MEMORY LOSS, HEADACHES [id number] 09/10/2015 13:20:00 09/10/2015 14:07:00 DIS Outpatient CRISTY MONTES MD [facility] CARD SACROCOCCYGEAL DISORDER [id number] 03/10/2015 13:50:00 03/10/2015 23:59:59 CLS Outpatient ZULEYMA VAUGHAN MD [facility] RAD R HEEL PAIN [id number] 12/07/2014 11:24:00 12/07/2014 23:59:59 CLS Outpatient JASBIR OSBORN [facility] RAD OSTEOPOROSIS [id number] 06/22/2014 09:30:00 06/22/2014 23:59:59 CLS Preadmit SCOTTIE LEONARD MD [facility] CARD NEAR SYNCOPE [id number] 03/23/2014 09:30:00 06/21/2014 00:01:00 DIS Outpatient SCOTTIE LEONARD MD [facility] CARD NEAR SYNCOPE [id number] 04/10/2014 14:42:00 04/10/2014 23:59:59 CLS Outpatient TREMAYNE ROMAN [facility] RAD NECK PAIN [id number] 03/22/2014 14:25:00 03/22/2014 23:59:59 CLS Outpatient SCOTTIE LEONARD MD [facility] LAB SYNCOPE [id number] 01/26/2014 13:40:00 01/26/2014 23:59:59 CLS Outpatient SCOTTIE LEONARD MD [facility] RAD BACK PAIN [id number] 11/09/2013 17:53:00 11/09/2013 23:59:59 CLS Outpatient SCOTTIE LEONARD MD [facility] RAD BACK PAIN [id number] 01/26/2013 13:00:00 02/14/2013 14:15:00 DIS Outpatient DARELL COURTNEY [facility] REHAB L1-L5 PSF [id number] 10/29/2012 09:47:00 10/29/2012 23:59:59 CLS Outpatient DARELL ORTIZ MD [facility] RAD LUMBAR STENOSIS [id number] 09/22/2012 20:20:00 09/23/2012 00:49:00 DIS Emergency QASIM DOADRIANA [facility] ER CHEST/L ARM DISCOMFORT [id number] 09/06/2012 07:48:00 09/20/2012 10:03:00 DIS Outpatient CORNELIO RAMIREZ [facility] REHAB R HIP BURSITIS;LOW BACK PAIN [id number] 09/14/2012 14:16:00 09/14/2012 23:59:59 CLS Outpatient DARELL ORTIZ MD [facility] RAD LUMBAR STENOSIS [id number] 06/14/2012 10:22:00 Document Registration [id number] 06/11/2012 12:59:00 Document Registration [id number] 05/31/2012 14:56:00 Document Registration [id number] 05/12/2012 14:25:00 Document Registration [id number] 03/04/2012 13:32:00 Document Registration [id number] 07/23/2009 06:38:00 Document Registration [email or web address] 12/07/2014 11:25:50 ACT Document Registration [id number] 07/01/2017 11:47:11 Document Registration [id number] 03/18/2017 00:52:00 03/18/2017 23:59:59 CLS Outpatient
[2018-09-20 08:30] VITALS: BP 136/63
--- NOTE | 2018-09-20 09:03 | History & Physicial ---
History of Present Illness History of Present Illness Reason for visit/HPI PT IS A 68 Y/O FEMALE WHO IS KNOWN TO ME FROM CLINIC. SHE HAS HISTORY OF A PREVIOUS STROKE - HAS BEEN DOING WELL AT HOME UP UNTIL LAST NIGHT. SHE APPARENTLY GOT UP TO THE USE THE RESTROOM, SETTLED BACK INTO BED, THEN SAT UP , YELLED OUT, THEN STARTED TO FALL OUT OF BED, CLENCHING AND UNCLENCHING HER JAW, WITH INABILITY TO COMMUNICATE WITH HER SPOUSE. THE CONCERN WAS FOR RECURRENT STROKE AND SHE WAS BROUGHT TO THE HOSPITAL WHERE SHE WAS WORKED UP FOR A STROKE , THE WORK-UP WAS NEGATIVE AND IT WAS DISCUSSED WITH ON-CALL NEUROLOGIST WHO SUSPECTED SEIZURE DISORDER. SHE WAS GIVEN KEPPRA IV AND ADMITTED FOR FURTHER MONITORING AND SPEECH EVAL FOR SAFETY OF SWALLOWING. Date of Admission September 20, 2018 at 07:18 Date Seen by a Provider: September 20, 2018 Time Seen by a Provider: 09:00 I consulted on this patient on 09/20/18 09:00 Attending Physician Zuleyma Ochoa MD Admitting Physician Zuleyma Ochoa MD Consult Allergies and Home Medications Allergies Coded Allergies: Penicillins (Unverified Allergy, Unknown, HIVES, 12/21/15) THROAT SWELLS Uncoded Allergies: PAULINO INHIBITOR 2 (Allergy, Unknown, HIVES, 12/21/15) THROAT SWELLS Home Medications Aspirin 81 Mg Tab.chew, 81 MG PO DAILY@0900 Prescribed by: ZULEYMA OCHOA on 09/21/18820 Clopidogrel Bisulfate 75 Mg Tablet, 75 MG PO DAILY Prescribed by: ZULEYMA OCHOA on 09/21/18820 Epinephrine 0.3 Mg/0.3 Ml Auto.injct, 0.3 MG IJ UD PRN for ALLERGIC REACTION, ( Reported) Hydrocodone/Acetaminophen 1 Each Tablet, 1 TAB PO Q6H PRN for PAIN-MODERATE, ( Reported) Levetiracetam 500 Mg Tablet, 500 MG PO BID Prescribed by: ZULEYMA OCHOA on 09/21/18820 Memantine HCl 10 Mg Tablet, 10 MG PO DAILY, (Reported) Multivitamin 1 Each Tablet, 1 TAB PO DAILY, (Reported) Patient Home Medication List Home Medication List Reviewed: Yes Past Kgwbksh-Iyduhw-Mmxagu Hx Patient Social History Marrital Status: Employed/Student: retired Alcohol Use: Denies Use Recreational Drug Use: No Smoking Status: Never a Smoker 2nd Hand Smoke Exposure: No Physical Abuse Screen: No Sexual Abuse: No Recent Foreign Travel: No Contact w/other who traveled: No Recent Hopitalizations: No Recent Infectious Disease Expo: No Immunizations Up To Date Tetanus Booster (TDap): More than 5yrs Date of Influenza Vaccine: Feb 16, 2012 Seasonal Allergies Seasonal Allergies: Yes Surgeries Yes ("spinal cage" and gastrostomy tube placement) Hysterectomy, Orthopedic, Tonsillectomy Respiratory Yes Cardiovascular No Neurological Yes Dementia, Seizure Disorder, Stroke Reproductive System Hx Reproductive Disorders: No Genitourinary No Gastrointestinal No Musculoskeletal Yes Osteoporosis, Arthritis, Chronic Back Pain, Fractures Endocrine History of Endocrine Disorders: Yes (WAS ON MEDICATIONS FOR DIABETES, BUT NOT ANY LONGER) Endocrine Disorders: Diabetes, Non-Insulin dep HEENT History of HEENT Disorders: No Cancer No Psychosocial History of Psychiatric Problem: Yes Behavioral Health Disorders: Depression Integumentary History of Skin or Integumenta: No Blood Transfusions History of Blood Disorders: No Reviewed Nursing Assessment Reviewed/Agree w Nursing PMH: Yes Family Medical History Significant Family History: Hypertension Review of Systems Constitutional: No chills, No fever, No malaise; weakness EENTM: No hoarseness, No throat pain Respiratory: No cough, No dyspnea on exertion, No short of breath Cardiovascular: No chest pain, No edema Gastrointestinal: No abdominal pain, No constipation, No diarrhea, No nausea, No vomiting Genitourinary: no symptoms reported Musculoskeletal: no symptoms reported Skin: no symptoms reported Psychiatric/Neurological: Anxiety, Weakness, Other (SEIZURE AT HOME) All Other Systems Reviewed Negative Unless Noted: Yes Physical Exam Vital Signs Vital Signs - First Documented 09/20/18 09/20/18 05:07 08:15 Temp 98.1 Pulse 85 Resp 18 B/P (MAP) 123/64 (83) Pulse Ox 95 O2 Delivery Room Air Capillary Refill : Less Than 3 Seconds Height, Weight, BMI Height: 5'1.00" Weight: 130lbs. 0oz. 58.055560nv; 25.9 BMI Method:Estimated General Appearance: No Apparent Distress, WD/WN Eyes: Bilateral Eye Normal Inspection, Bilateral Eye PERRL, Bilateral Eye EOMI HEENT: PERRL/EOMI, Pharynx Normal Neck: Full Range of Motion, Supple Respiratory: Chest Non Tender, Lungs Clear, Normal Breath Sounds, No Accessory Muscle Use Cardiovascular: Regular Rate, Rhythm Gastrointestinal: Normal Bowel Sounds, Non Tender, Soft Rectal: Deferred Back: Normal Inspection, No CVA Tenderness, No Vertebral Tenderness Extremity: Normal Capillary Refill, Normal Range of Motion, Non Tender, No Calf Tenderness, No Pedal Edema Neurologic/Psychiatric: Alert, circulation worker II-XII Norm as Tested, Disoriented, Motor Weakness Skin: Warm/Dry Lymphatic: No Adenopathy Assessment/Plan Assessment and Plan SEIZURE - NEW ONSET HX OF STROKE WITH LARGE DEFICIT DEMENTIA ANXIETY SEIZURE - NEW ONSET - DUE TO LARGE STROKE BRAIN STRUCTURE DEFICIT - STARTED ON KEPPRA IV - PT TO CONTINUE WITH ORAL KEPPRA - MONITOR SYMPTOMS OVERNIGHT. HX OF STROKE WITH LARGE DEFICIT - RESUME PLAVIX AND ASPIRIN - PT HAD BEEN ON IN THE PAST -THIS WAS STOPPED BY PHYSICIAN 6 MONTHS POST STROKE. DEMENTIA AND ANXIETY - CONTINUE NAMENDA - SUPPORTIVE CARE AT THIS TIME. Admission Diagnosis SEIZURE - NEW ONSET HX OF STROKE WITH LARGE DEFICIT DEMENTIA ANXIETY Admission Status: Observation Clinical Quality Measures Stroke: Date of last known well: September 20, 2018 Time of last known well: 04:30 Symptoms onset unknown: No ZULEYMA OCHOA MD September 20, 2018 09:03
[2018-09-20] MEDS ORDERED: CATHETER FLUSH 10 ML SYR IV PRN (09:15)
[2018-09-20] MEDS ORDERED: ONDANSETRON 4 MG/2 ML (SDV) Z0FRAN IV PRN (09:15)
--- NOTE | 2018-09-20 09:28 | ST Dysphagia Evaluation ---
Speech Evaluation-General Medical Diagnosis Seizure Onset Date: September 20, 2018 Therapy Diagnosis Therapy Diagnosis: Oropharyngeal Dysphagia Precautions Precautions: Aspiration Referral Referring Physician: Dr. Ochoa Reason for Referral: Evaluation/Treatment Social History Current Living Status: Significant Other Speech PLF/Current-Dysphagia Prior Level of Function The patient lived at home with her . She was admitted to the hospital this am following an incident at home. The incident was questioned as to a seizure or CVA. At this time a CVA has been ruled out. The patient was referred for a Bedside Dysphagia Evaluation to determine least restrictive diet level. The patient was presented thin liquid via 1/2 tsp. (x2) and small sips via straw (x2) without difficulty. The patient was then presented puree, mechanical soft and regular consistencies without difficulty. The patient exhibits a normal swallow onset without oral residue or pocketing. The patient will be on a regular diet with thin liquids. The diet information was provided to Dr. Ochoa and her nurse, Carrie as well as written on the white board. Speech-Plan Patient/Family Goals Patient/Family Goals: The patient plans to return home with her upon hospital discharge. Treatment Plan Speech Therapy Treatment Plan: Discontinue ST The patient will be on a regular diet with thin liquids. No follow up skilled dysphagia therapy is warranted at this time. Treatment Duration: September 20, 2018 Frequency: 1 time per week Estimated Hrs Per Day: .25 hour per day Rehab Potential: Good Barriers to Learning: Seizures Pt/Family Agrees to Plan: Yes Safety Risks/Education Teaching Recipient: Patient, Significant Other Teaching Methods: Discussion Response to Teaching: Verbalize Understanding Education Topics Provided: Safety of oral intake and diet level Time Speech Therapy Time In: 09:00 Speech Therapy Time Out: 09:15 Total Billed Time: 15 Billed Treatment Time Jose DAVEPATRICIA CHARLIE Jones September 20, 2018 09:28
[2018-09-20] MEDS ORDERED: HYDR-3820 PO (11:21)
[2018-09-20] MEDS ORDERED: EPIN0.3P2 IJ (11:21)
[2018-09-20] MEDS ORDERED: MEMA10TA22 PO (11:25)
[2018-09-20] MEDS: ASPIRIN 81 MG CHEW (CHILDREN'S ASA) PO SCH (11:28)
[2018-09-20] MEDS: CLOPIDOGREL 75 MG (PLAVIX) TABLET PO SCH (11:28)
[2018-09-20 11:31] VITALS: BP 141/64
[2018-09-20] MEDS ORDERED: MULT1TAB69 PO (11:47)
--- NOTE | 2018-09-20 11:47 | NUR ---
SPOKE WITH THE PATIENT ABOUT MEDICATIONS. WE WENT OVER THE EXT MED HX AND HE VERIFIED HOW SHE TAKES THEM. NIKUNJ FILLED GENERIC NAMENDA 10MG BID 08-10-18 HOWEVER HE STATES SHE ONLY TAKES 1 TAB IN THE MORNING. SHE TAKES A [employer] OTC DAILY WELL AND USES HER HYDROCODONE NEEDED. SHE ALSO HAS AN EPIPEN ON HAND IF NEEDED FOR ALLERGIC REACTIONS.
[2018-09-20 12:00] VITALS: BP 123/53
[2018-09-20] MEDS ORDERED: LORazepam INJ 2 MG/ML (ATIVAN) VIAL IVP PRN (12:15)
[2018-09-20] MEDS ORDERED: CATHETER FLUSH 10 ML SYR IV SCH (14:00)
--- NOTE | 2018-09-20 14:00 | NUR ---
Pastoral care visit.
--- NOTE | 2018-09-20 14:05 | Physical Therapy Evaluation ---
PT Evaluation-General Medical Diagnosis Admission Date September 20, 2018 at 07:18 Medical Diagnosis: Seizure Onset Date: September 20, 2018 Therapy Diagnosis Therapy Diagnosis: impaired mobility, strength, endurance Height/Weight Height (Feet): 5 Height (Inches): 1.00 Weight (Pounds): 130 Weight (Ounces): 0.0 Precautions Precautions/Isolations: Standard Precautions Referral Physician: Marylu Ochoa MD Reason for Referral: Evaluation/Treatment Medical History Pertinent Medical History: Arthritis, CVA, DM, Dementia Additional Medical History seizure disorder, osteoporosis, chronic back pain, fractures, depression, surg ( hysterectomy, orthopedic, tonsillectomy) Reviewed History: Yes Social History Home: Single Level Current Living Status: Spouse Entry Into Home: Ramp, Stairs With Railing states they have stairs to enter the home and a ramp. Prior/Core FIM Prior Level of Function Therapy Code Descriptions/Definitions Functional [place] Measure: 0=Not Assessed/NA 4=Minimal Assistance 1=Total Assistance 5=Supervision or Setup 2=Maximal Assistance 6=Modified [place] 3=Moderate Assistance 7=Complete [place] Therapy Quality Codes: 6 Independent with activity with or without an assistive device 5 Patient requires set up or clean up by helper. Patient completes activity by themselves 4 Supervision or touching assist (CGA). [place] provide cues , steadying assist 3 The helper provides less than half the effort to complete the activity 2 The helper provides more than half the effort to complete the activity 1 Dependent. The helper does all the effort to complete an activity 7 Patient refused to complete or attempt activity 9 The patient did not perform the activity before the current illness or injury 88 Not attempted due to Medical conditions or safety concerns Functional Abilities and Goals: Independent: Patient completed the activities by him/herself, with or without an assistive device, with no assistance from a helper. Needed Some Help: Patient needed partial assistance from another person to complete activities. Dependent: A helper completed the activities for the patient. Unknown: Not Applicable: Bed Mobility: 7 Transfers (B,C,W/C) (FIM): 7 Gait: 7 Stairs: 7 Indoor Mobility (Ambulation): Independent Stairs: Independent PT Evaluation-Current Subjective Patient in bed pre tx, agrees to PT, states she doesn't have any pain. Patient is obviously very confused and doesn't really follow directions, she seems to move randomly and is impulsive. Pt/Family Goals none stated Objective Patient Orientation: Person, Confused Attachments: Fung Catheter ROM/Strength ROM Lower Extremities WNL Strength Lower Extremities gross 4/5 bilateral lower extremities Integumentary/Posture Bladder Incontinence: Fung Cath Neuromuscular (Tone, Coordination, Reflexes) NT Sensory Sensation Lower Extremities Patient does not follow directions for any effective testing Transfers Therapy Code Descriptions/Definitions Functional [place] Measure: 0=Not Assessed/NA 4=Minimal Assistance 1=Total Assistance 5=Supervision or Setup 2=Maximal Assistance 6=Modified [place] 3=Moderate Assistance 7=Complete [place] Transfers (B, C, W/C) (FIM): 4 Scootin Rollin Supine to/from Sit: 5 Sit to/from Stand: 4 Gait Mode of Locomotion: Walk Anticipated Mode of Locomotion: Walk Gait (FIM): 2 Distance: 60' Gait Level of Assist: 4 Gait Persons Needed: 2 Gait Assistive Device: Handheld Assist Comments/Gait Description Patient requires 2 people with COUNSELOR AIDE for ambulation, she will not use a rolling walker right and is very impulsive. She needs to be led rather than cued or given directions on where to go and what to do. Balance Sitting Static: Normal Sitting Dynamic: Normal Standing Static: Fair Standing Dynamic: Fair Treatment None - patient would not follow directions for LE exercises. Assessment/Needs Patient has impaired mobility, strength, endurance. She is confused and impulsive. Patient in bed post tx with nurse call, phone, tray, bed alarm on, in the room. Rehab Potential: Guarded PT Short Term Goals Short Term Goals Time Frame: September 27, 2018 Transfers (B,C,W/C) (FIM): 5 Gait (FIM): 4 Gait Distance Comment: 150' Gait Level of Assist: 4 Gait Assistive Device: FWW PT Plan Problem List Problem List: Activity Tolerance, Functional Strength, Safety, Balance, Gait, Transfer, Bed Mobility Treatment/Plan Treatment Plan: Continue Plan of Care Treatment Plan: Bed Mobility, Concurrent Therapy, Education, Functional Activity Gemini, Functional Strength, Gait, Safety, Therapeutic Exercise, Transfers Treatment Duration: September 27, 2018 Frequency: 6 times per week Estimated Hrs Per Day: .25 hour per day (15-30') Patient and/or Family Agrees t: Yes Safety Risks/Education Patient Education: Gait Training, Transfer Techniques, Correct Positioning, Safety Issues Teaching Recipient: Patient Teaching Methods: Demonstration, Discussion Response to Teaching: Reinforcement Needed Discharge Recommendations Plan Patient will perform bed mobility and transfer training, balance and endurance training, functional strengthening, stair training, gait training, and education , to improve functional mobility and independence at home. Therapy D/C Recommendations: Home w/ Family Support, Long-Term (TCU/NH) Time/GCodes Time In: 1335 Time Out: 1352 Total Billed Treatment Time: 17 Total Billed Treatment 1 visit YI 17' JAVON STRANGE PT September 20, 2018 14:05
[2018-09-20 16:00] VITALS: BP 104/59
[2018-09-20] MEDS ORDERED: LEVETIRACETAM 500 MG/NS 100 ML IVPB IV SCH ×2 (18:00)
[2018-09-20 20:00] VITALS: BP 122/57
[2018-09-20] MEDS: LEVETIRACETAM 500 MG (KEPPRA) TAB PO SCH (20:34)
[2018-09-21 00:09] VITALS: BP 116/57
[2018-09-21 04:00] VITALS: BP 111/51
[2018-09-21 05:26] LABS: CHOLESTEROL 158 MG/DL (< 200); HDL CHOLESTEROL 40 MG/DL (40-60); TRIGLYCERIDES 92 MG/DL (<150); VLDL CHOLESTEROL 18 MG/DL (5-40)
--- NOTE | 2018-09-21 08:18 | Discharge Summary ---
Diagnosis/Chief Complaint Date of Admission September 20, 2018 at 07:18 Date of Discharge Discharge Date: September 21, 2018 Discharge Time: 10:00 Admission Diagnosis Admission Diagnosis SEIZURE - NEW ONSET HX OF STROKE WITH LARGE DEFICIT DEMENTIA ANXIETY Discharge Diagnosis SEIZURE - NEW ONSET HX OF STROKE WITH LARGE DEFICIT DEMENTIA ANXIETY Reason Hospital Visit PT IS A 68 Y/O FEMALE WHO IS KNOWN TO ME FROM CLINIC. SHE HAS HISTORY OF A PREVIOUS STROKE - HAS BEEN DOING WELL AT HOME UP UNTIL LAST NIGHT. SHE APPARENTLY GOT UP TO THE USE THE RESTROOM, SETTLED BACK INTO BED, THEN SAT UP , YELLED OUT, THEN STARTED TO FALL OUT OF BED, CLENCHING AND UNCLENCHING HER JAW, WITH INABILITY TO COMMUNICATE WITH HER SPOUSE. THE CONCERN WAS FOR RECURRENT STROKE AND SHE WAS BROUGHT TO THE HOSPITAL WHERE SHE WAS WORKED UP FOR A STROKE , THE WORK-UP WAS NEGATIVE AND IT WAS DISCUSSED WITH ON-CALL NEUROLOGIST WHO SUSPECTED SEIZURE DISORDER. SHE WAS GIVEN KEPPRA IV AND ADMITTED FOR FURTHER MONITORING AND SPEECH EVAL FOR SAFETY OF SWALLOWING. Discharge Summary Discharge Physical Examination Allergies: Coded Allergies: Penicillins (Unverified Allergy, Unknown, HIVES, 12/21/15) THROAT SWELLS Uncoded Allergies: PAULINO INHIBITOR 2 (Allergy, Unknown, HIVES, 12/21/15) THROAT SWELLS Vitals & I&Os Vital Signs Date Time Temp Pulse Resp B/P (MAP) Pulse Ox O2 Delivery O2 Flow Rate FiO2 09/21/18 14:00 09/21/18 12:00 98.6 77 18 96 Room Air General Appearance: Alert, Cooperative HEENT: Atraumatic, PERRLA Respiratory: Clear to Auscultation Cardiovascular: Regular Rate Abdominal: Normal Bowel Sounds, Soft Extremities: No Clubbing, No Cyanosis Skin: No Rashes, No Breakdown Neuro: Normal Speech Psych/Mental Status: Other (ALERT - VACANT EXPRESSION, DEFERS TO FOR ALMOST ALL ANSWERS) Hospital Course Was the Problem List Reviewed?: Yes SEIZURE - NEW ONSET HX OF STROKE WITH LARGE DEFICIT DEMENTIA ANXIETY SEIZURE - NEW ONSET - DUE TO LARGE STROKE BRAIN STRUCTURE DEFICIT - STARTED ON KEPPRA IV - PT TO CONTINUE WITH ORAL KEPPRA OUTPATIENT HX OF STROKE WITH LARGE DEFICIT - RESUME PLAVIX AND ASPIRIN - PT HAD BEEN ON IN THE PAST -THIS WAS STOPPED BY PHYSICIAN 6 MONTHS POST STROKE. DEMENTIA AND ANXIETY - CONTINUE NAMENDA - SUPPORTIVE CARE AT THIS TIME. Pending Labs Discharge Condition at discharge IMPROVED Instructions to patient/family Please see electronic discharge instructions given to patient. Discharge Medications Reviewed and agree with Discharge Medication list on patient's Discharge Instruction sheet Clinical Quality Measures DVT/VTE Risk/Contraindication: Risk Factor Score Per Nursin RFS Level Per Nursing on Admit: 4+=Very High Stroke: Date of last known well: September 20, 2018 Time of last known well: 04:30 Symptoms onset unknown: No ZULEYMA VAUGHAN MD September 21, 2018 08:18
[2018-09-21] MEDS ORDERED: ASPI-999 PO (08:21)
[2018-09-21] MEDS ORDERED: CLOP75TA28 PO (08:21)
[2018-09-21] MEDS ORDERED: LEVE500T6 PO (08:21)
--- NOTE | 2018-09-21 08:22 | Discharge Inst-Complex ---
PDI Med Rec & Follow Up Appt. New Medications: Aspirin (Aspirin) 81 Mg Tab.chew 81 MG PO DAILY@0900, #100 TAB 3 Refills Clopidogrel Bisulfate (Clopidogrel) 75 Mg Tablet 75 MG PO DAILY, #30 TAB 6 Refills Levetiracetam (Levetiracetam) 500 Mg Tablet 500 MG PO BID, #120 TAB 6 Refills Continued Medications: Epinephrine (Epipen) 0.3 Mg/0.3 Ml Auto.injct 0.3 MG IJ UD PRN for ALLERGIC REACTION, ML Hydrocodone/Acetaminophen (Hydrocodon-Acetaminophn 10-325) 1 Each Tablet 1 TAB PO Q6H PRN for PAIN-MODERATE, TAB Memantine HCl (Memantine HCl) 10 Mg Tablet 10 MG PO DAILY, TAB Multivitamin (Multivitamins) 1 Each Tablet 1 TAB PO DAILY, TAB Prescription: Transmitted to Pharmacy Activity, Diet and PDI Resume Normal Activity: Yes Discharge Diet: Regular Diet Diet for 24 Hours: No Alcohol Driving Instructions: No Driving/Refer to Return to The Hospital For: RETURN TO THE HOSPITAL FOR ANY RECURRENT SEIZURE-LIKE EPISODES, CONCERN FOR LIFETHREATENING ILLNESS OR INJURY Symptoms to Reoprt to : Appetite Changes, Bleeding Excessive, Pain/Pressure in Chest, Cough Up/Vomit Blood, Questions/Concerns, Dizziness/Fainting For Problems or Questions: Contact Your Physician, Go to Emergency Room ZULEYMA VAUGHAN MD September 21, 2018 08:22
[2018-09-21] MEDS: CLOPIDOGREL 75 MG (PLAVIX) TABLET PO SCH (08:29)
[2018-09-21] MEDS: ASPIRIN 81 MG CHEW (CHILDREN'S ASA) PO SCH (08:29)
[2018-09-21] MEDS: LEVETIRACETAM 500 MG (KEPPRA) TAB PO SCH (08:29)
[2018-09-21 08:30] VITALS: BP 119/58
--- NOTE | 2018-09-21 09:41 | Physical Therapy Daily Note ---
PT Daily Note-Current Subjective Patient in bed pre tx, agrees to PT, voices no complaints of pain. Patient is more talkative but still confused. She continues to need tactile cues and does not respond to verbal cues very well. Appearance Patient in recliner post tx with nurse call, phone, tray, all needs met. says he will be in the room and nurse notified that patient is in chair. Mental Status Patient Orientation: Person, Confused Transfers Therapy Code Descriptions/Definitions Functional Story Measure: 0=Not Assessed/NA 4=Minimal Assistance 1=Total Assistance 5=Supervision or Setup 2=Maximal Assistance 6=Modified Story 3=Moderate Assistance 7=Complete Story Therapy Quality Codes: 6 Independent with activity with or without an assistive device 5 Patient requires set up or clean up by helper. Patient completes activity by themselves 4 Supervision or touching assist (CGA). [place] provide cues , steadying assist 3 The helper provides less than half the effort to complete the activity 2 The helper provides more than half the effort to complete the activity 1 Dependent. The helper does all the effort to complete an activity 7 Patient refused to complete or attempt activity 9 The patient did not perform the activity before the current illness or injury 88 Not attempted due to Medical conditions or safety concerns Transfers (B, C, W/C) (FIM): 4 Scootin Rollin Supine to/from Sit: 4 Sit to/from Stand: 4 Bed to/from Chair: 4 Gait Training Gait (FIM): 4 Distance: 250' Gait Level of Assist: 4 Gait Persons Needed: 1 Gait Assistive Device: Handheld Assist Patient is confused and cannot use a rolling walker correctly. Exercises patient will not follow directions to perform LE exercises Treatments bed mobility and transfers, ambulation Assessment Current Status: Fair Progress improved endurance PT Short Term Goals Short Term Goals Time Frame: September 27, 2018 Transfers (B,C,W/C) (FIM): 5 Gait (FIM): 4 Gait Distance Comment: 150' Gait Level of Assist: 4 Gait Assistive Device: FWW PT Plan Problem List Problem List: Activity Tolerance, Functional Strength, Safety, Balance, Gait, Transfer, Bed Mobility Treatment/Plan Treatment Plan: Continue Plan of Care Treatment Plan: Bed Mobility, Concurrent Therapy, Education, Functional Activity Gemini, Functional Strength, Gait, Safety, Therapeutic Exercise, Transfers Treatment Duration: September 27, 2018 Frequency: 6 times per week Estimated Hrs Per Day: .25 hour per day (15-30') Patient and/or Family Agrees t: Yes Safety Risks/Education Patient Education: Gait Training, Transfer Techniques, Correct Positioning, Safety Issues Teaching Recipient: Patient Teaching Methods: Demonstration, Discussion Response to Teaching: Reinforcement Needed Time/GCodes Time In: 902 Time Out: 914 Total Billed Treatment Time: 12 Total Billed Treatment 1 visit GT 12' JAVON STRANGE PT September 21, 2018 09:41
--- NOTE | 2018-09-21 10:28 | Occupational Therapy Eval ---
OT Evaluation-General/PLF Medical Diagnosis Admission Date September 20, 2018 at 07:18 Medical Diagnosis: Seizure Onset Date: September 20, 2018 Therapy Diagnosis Therapy Diagnosis: impaired ADLs and mobility Height/Weight Height (Feet): 5 Height (Inches): 1.00 Weight (Pounds): 130 Weight (Ounces): 0.0 Precautions Precautions/Isolations: Standard Precautions Safety Interventions: Bed Exit Alarm, Reorient-PRN Weight Bear Status Weight Bearing Restriction: Weight Bearing/Tolerated Referral Physician: Marylu Ochoa MD Referral Reason: Activity Tolerance, Self Care, Evaluation/Treatment, Strengthening/ROM Medical History Pertinent Medical History: Arthritis, CVA, DM, Dementia Reviewed History: Yes Social History Home: Single Level Current Living Status: Spouse Entry Into Home: Ramp, Stairs With Railing Steps Into Home: 5 pt has 5 MARIIA but also has ramp ADL-Prior Level of Function Therapy Code Descriptions/Definitions Functional Dewey Measure: 0=Not Assessed/NA 4=Minimal Assistance 1=Total Assistance 5=Supervision or Setup 2=Maximal Assistance 6=Modified Dewey 3=Moderate Assistance 7=Complete Dewey Therapy Quality Codes: 6 Independent with activity with or without an assistive device 5 Patient requires set up or clean up by helper. Patient completes activity by themselves 4 Supervision or touching assist (CGA). Kent provide cues , steadying assist 3 The helper provides less than half the effort to complete the activity 2 The helper provides more than half the effort to complete the activity 1 Dependent. The helper does all the effort to complete an activity 7 Patient refused to complete or attempt activity 9 The patient did not perform the activity before the current illness or injury 88 Not attempted due to Medical conditions or safety concerns Functional Abilities and Goals: Independent: Patient completed the activities by him/herself, with or without an assistive device, with no assistance from a helper. Needed Some Help: Patient needed partial assistance from another person to complete activities. Dependent: A helper completed the activities for the patient. Unknown: Not Applicable: Self Care: Independent Functional Cognition: Independent DME/Equipment: Bath Chair, Tub/Shower Drive Self: No OT Current Status Subjective evaluation from 09/20/18. Late entry due to placed in wrong file. pt laying in bed. pt stated "little pain" when asked if she has any pain, history taken from secondary to patient being poor historian. pt unable to answer orientation questions Current Glasses/Contacts: Yes Hearing Aids: No Dentures/Partials: No Hand Dominance: Right Upper Extremity ROM WFL- pt requried increase timing to follow demo Upper Extremity Coordination pt unable to follow commands for proper testing Upper Extremity Sensation inability to follow commands secondary to cognition. . Upper Extremity Strength inability to follow commands secondary to cognition. ADL-Treatment Therapy Code Descriptions/Definitions Functional Dewey Measure: 0=Not Assessed/NA 4=Minimal Assistance 1=Total Assistance 5=Supervision or Setup 2=Maximal Assistance 6=Modified Dewey 3=Moderate Assistance 7=Complete Dewey Therapy Quality Codes: 6 Independent with activity with or without an assistive device 5 Patient requires set up or clean up by helper. Patient completes activity by themselves 4 Supervision or touching assist (CGA). Kent provide cues , steadying assist 3 The helper provides less than half the effort to complete the activity 2 The helper provides more than half the effort to complete the activity 1 Dependent. The helper does all the effort to complete an activity 7 Patient refused to complete or attempt activity 9 The patient did not perform the activity before the current illness or injury 88 Not attempted due to Medical conditions or safety concerns Education OT Patient Education: Purpose of tx/functional activities Teaching Recipient: Patient, Significant Other Teaching Methods: Discussion Response to Teaching: Verbalize Understanding OT Short Term Goals Short Term Goals Eating(FIM): 4 Grooming(FIM): 4 Bathing(FIM): 3 Transfers (B,C,W/C) (FIM): 5 1=Demonstrate adherence to instructed precautions during ADL tasks. 2=Patient will verbalize/demonstrate understanding of assistive devices/ modifications for ADL. 3=Patient will improve strength/tolerance for activity to enable patient to perform ADL's. OT Group Home Goals Mental Health Nurse Practitioner Goals Eating (FIM): 5 Grooming(FIM): 5 Bathing(FIM): 5 Upper Body Dressing(FIM): 5 Lower Body Dressing(FIM): 5 Toileting(FIM): 5 Toilet/Commode Transfer(FIM): 5 1=Demonstrate adherence to instructed precautions during ADL tasks. 2=Patient will verbalize/demonstrate understanding of assistive devices/ modifications for ADL. 3=Patient will improve strength/tolerance for activity to enable patient to perform ADL's. OT Education/Plan Problem List/Assessment Assessment: Decreased Activ Tolerance, Decreased Safety Aware, Decreased UE Strength, Dependent Transfers, Impaired Bed Mobility, Impaired Cognition, Impaired Coordination, Impaired Funct Balance, Impaired I ADL's, Impaired Self- Care Skills, Restricted Funct UE ROM pt presents with functional limitations affecting areas of ADLS and functional transfers. pt demo inability to follow simple commands requiring MAX VC/ demo. pt required TA for LB dressing, toileting, and UE dressing. pt required MIN A for functional transfers and MOD A for bed mobility. pt is NOT safe to return home at this time secondary to decrease overall function. agrees pt is not safe to return home. recommended D?C to assisted, Discharge Recommendations Plan/Recommendations: Continue POC Therapy D/C Recommendations: Snf (TCU/NH) Treatment Plan/Plan of Care Treatment,Training & Education: Yes Patient would benefit from OT for education, treatment and training to promote independence in ADL's, mobility, safety and/or upper extremity function for ADL' s. Plan of Care: ADL Retraining, Caregiver Training, Functional Mobility, Group Exercise/Act as Ind, UE Funct Exercise/Act Treatment Duration: October 12, 2018 Frequency: 5 times per week Estimated Hrs Per Day: .25 hour per day Rehab Potential: Guarded Time/GCodes Start Time: 13:10 Stop Time: 13:22 Billed Treatment Time evm 22 minutes BONILLA JUAN OT September 21, 2018 10:28
[2018-09-21 12:00] VITALS: BP 119/55
== END 2018-09-21 14:30 | disposition home or self-care (01) ==
LOC: EDUNIT# 05:07 → ER 05:09 → 4TH 07:18 → EDPENDDISTM 09-21 10:00 → 4TH 09-21 12:53
PROVIDERS: ADMIT Family Medicine; ATTEND Family Medicine
DX: G40.909 Epilepsy, unspecified, not intractable, without status epilepticus (principal); I69.398 Other sequelae of cerebral infarction; F03.90 Unspecified dementia, unspecified severity, without behavioral disturbance, psychotic disturbance, mood disturbance, and anxiety; F41.9 Anxiety disorder, unspecified; M81.0 Age-related osteoporosis without current pathological fracture; M19.91 Primary osteoarthritis, unspecified site; Z66 Do not resuscitate; E11.9 Type 2 diabetes mellitus without complications; F32.9 Major depressive disorder, single episode, unspecified; R29.704 NIHSS score 4; R47.01 Aphasia; Z88.0 Allergy status to penicillin; Z79.82 Long term (current) use of aspirin; Z79.899 Other long term (current) drug therapy
CPT/HCPCS: 36415; 51702; 70450; 71045; 80053; 80061; 81000; 84484; 85025; 85379; 85610; 85730; 93005; 93041; G0378

== ENCOUNTER 2019-11-27 10:07 | Emergency (ER) | payer MEDICARE, BC ==
[~2019-11-27] VITALS: Ht 157.5 cm; Wt 72.6 kg
[~2019-11-27 10:07] MED LIST changes: +ACHYD1T PO; +ASPI-999 PO; +CLOP75TA28 PO; -DIAZ5TAB3; +DIAZ5TAB49; -DULO30CA48 PO; +DULO30CA49 PO; +EPIN0.3P2 IJ; +LEVE500T6 PO; +MEMA10TA57 PO; +MULT-567 PO
[2019-11-27 10:19] LABS: BASOPHILS % (AUTO) 0 % (0-10); EOSINOPHILS # (AUTO) 0.1 10^3/uL (0.0-0.3); EOSINOPHILS % (AUTO) 2 % (0-10); HEMATOCRIT 38 % (35-52); LYMPHOCYTES # (AUTO) 2.7 X 10^3 (1.0-4.0); LYMPHOCYTES % (AUTO) 40 % (12-44); MEAN CORPUSCULAR HEMOGLOBIN 31 PG (25-34); MEAN CORPUSCULAR HGB CONC 34 G/DL (32-36); MEAN CORPUSCULAR VOLUME 91 FL (80-99); MEAN PLATELET VOLUME 10.5 FL (7.4-10.4); MONOCYTES # (AUTO) 0.4 X 10^3 (0.0-1.0); MONOCYTES % (AUTO) 6 % (0-12); NEUTROPHILS # (AUTO) 3.5 X 10^3 (1.8-7.8); NEUTROPHILS % (AUTO) 53 % (42-75); PLATELET COUNT 194 10^3/uL (130-400); RED CELL DISTRIBUTION WIDTH 16.1 % (10.0-14.5); WHITE BLOOD COUNT 6.7 10^3/uL (4.3-11.0)
--- NOTE | 2019-11-27 10:26 | ED General ---
General Stated Complaint: GENERAL COMPLAINTS Source of Information: EMS, Old Records (ALL PMH IS FROM OLD RECORDS) Exam Limitations: Other (PT WITH SEVERE DEMENTIA, AND CANNOT GIVE ANY INFORMATION OR FOLLOW COMMANDS) History of Present Illness Date Seen by Provider: Nov 27, 2019 Time Seen by Provider: 10:06 Initial Comments PT ARRIVES VIA EMS FROM HOME--LIVES WITH EMS REPORT THAT CALLED THEM THIS MORNING BECAUSE HE THOUGHT SHE MIGHT HAVE HAD CHEST PAIN EARLIER ALSO THOUGHT THAT MAYBE SHE HAS BEEN A LITTLE SLOW TO GET AROUND THE LAST COUPLE OF DAYS "JUST WANTS HER CHECKED OUT" PT HAS A PREVIOUS STROKE 3 YEARS AGO--HEMORRHAGIC, PER OLD RECORDS HAS SEVERE DEMENTIA/ SEVERE MEMORY IMPAIRMENT NO OTHER INFORMATION IS OBTAINABLE ACCUCHECK 114 PT IS UNABLE TO ANSWER ANY QUESTIONS RELIABLY, IS MINIMALLY VERBAL, BUT SPEECH IS CLEAR--GIVES NON-SENSICAL ANSWERS TO ALL QUESTIONS. PCP: DR. VAUGHAN Allergies and Home Medications Allergies Coded Allergies: Penicillins (Unverified Allergy, Unknown, HIVES, 12/21/15) THROAT SWELLS Uncoded Allergies: PAULINO INHIBITOR 2 (Allergy, Unknown, HIVES, 12/21/15) THROAT SWELLS Home Medications Aspirin 81 Mg Tab.chew, 81 MG PO DAILY@0900 Prescribed by: ZULEYMA VAUGHAN on 09/21/18820 Clopidogrel Bisulfate 75 Mg Tablet, 75 MG PO DAILY Prescribed by: ZULEYMA VAUGHAN on 09/21/18820 Epinephrine 0.3 Mg/0.3 Ml Auto.injct, 0.3 MG IJ UD PRN for ALLERGIC REACTION, (Reported) Hydrocodone Bit/Acetaminophen 1 Each Tablet, 1 TAB PO Q6H PRN for PAIN-MODERATE, (Reported) Levetiracetam 500 Mg Tablet, 500 MG PO BID Prescribed by: ZULEYMA VAUGHAN on 09/21/18820 Memantine HCl 10 Mg Tablet, 10 MG PO DAILY, (Reported) Multivitamin 1 Each Tablet, 1 TAB PO DAILY, (Reported) Patient Home Medication List Home Medication List Reviewed: Yes Review of Systems Review of Systems Constitutional: other (UNABLE TO OBTAIN FROM PT) Past Ziafcwd-Berkxm-Lrlbbt Hx Past Med/Social Hx: Reviewed and Corrections made Patient Social History 2nd Hand Smoke Exposure: No Recent Hopitalizations: No Immunizations Up To Date Tetanus Booster (TDap): More than 5yrs Date of Pneumonia Vaccine: Dec 21, 2016 Date of Influenza Vaccine: Feb 16, 2012 Seasonal Allergies Seasonal Allergies: Yes Past Medical History Surgeries: Yes ("spinal cage" and gastrostomy tube placement;CRANIOTOMY) Abdominal, Hysterectomy, Neurological, Orthopedic, Tonsillectomy Respiratory: Yes Asthma Cardiac: No Neurological: Yes (HEMORRHAGIC CVA-S/P CRANIOTOMY; SEVERE DEMENTIA/MEMORY IMPAIRMENT) Dementia, Seizure Disorder, Stroke Reproductive Disorders: No Genitourinary: No Gastrointestinal: Yes (G-TUBE ) Musculoskeletal: Yes ("SPINAL CAGE") Osteoporosis, Arthritis, Chronic Back Pain, Fractures Endocrine: Yes (WAS ON MEDICATIONS FOR DIABETES, BUT NOT ANY LONGER) Diabetes, Non-Insulin dep HEENT: No Cancer: No Psychosocial: Yes Depression Integumentary: No Blood Disorders: No Family Medical History Alzheimer's disease 19 MOTHER Arthritis 19 MOTHER Completed stroke Coronary thrombosis G8 BROTHER Diabetes mellitus 19 MOTHER Glaucoma 19 MOTHER Hypertension 19 FATHER Neoplasm 19 FATHER Osteoporosis 19 MOTHER Respiratory disorder G8 BROTHER Thyroid disease 19 MOTHER PSH: -FEEDING TUBE PLACEMENT/LATER REMOVAL -C-SPINE SURGERY -L-SPINE SURGERY X 2 Physical Exam Vital Signs Vital Signs - First Documented 11/27/19 10:07 Temp 36.6 Pulse 69 Resp 20 B/P (MAP) 130/72 (91) Pulse Ox 94 O2 Delivery Room Air Capillary Refill : Height, Weight, BMI Height: 5'1.00" Weight: 130lbs. 0.0oz. [id number]; 24.6 BMI Method:Estimated General Appearance: No Apparent Distress, WD/WN, Other (SMILING, DOES TALK BUT IS MINIMAL AND IS NON-SENSICAL/IN APPROPRIATE. CANNOT FOLLOW SIMPLE COMMANDS. ) HEENT: PERRL/EOMI Neck: Full Range of Motion, Normal Inspection, Non Tender, Supple; No Carotid Bruit, No JVD Respiratory: Normal Breath Sounds, No Accessory Muscle Use, No Respiratory Distress Cardiovascular: Regular Rate, Rhythm, No Edema, No JVD, No Murmur, Normal Peripheral Pulses Gastrointestinal: Non Tender, Soft Extremity: Normal Capillary Refill, No Pedal Edema Neurologic/Psychiatric: Alert; No Facial Droop; Other (MOVES ALL EXTREMITIES EQUALLY, BUT CANNOT FOLLOW COMMANDS FOR NIH; SPEECH IS NON-SENSICAL AND IN APPROPRIATE. ) Skin: Normal Color, Warm/Dry Progress/Results/Core Measures Suspected Sepsis SIRS Temperature: Pulse: Respiratory Rate: Laboratory Tests 11/27/19 10:10: White Blood Count 6.7 Blood Pressure / Mean: Laboratory Tests 11/27/19 10:10: Creatinine 0.85, INR Comment 0.9, Platelet Count 194, Total Bilirubin 0.6 Results/Orders Lab Results Laboratory Tests Test 11/27/19 10:10 11/27/19 10:23 Range/Units White Blood Count 6.7 4.3-11.0 10^3/uL Red Blood Count 4.20 L 4.35-5.85 10^6/uL Hemoglobin 13.0 11.5-16.0 G/DL Hematocrit 38 35-52 % Mean Corpuscular Volume 91 80-99 FL Mean Corpuscular Hemoglobin 31 25-34 PG Mean Corpuscular Hemoglobin Concent 34 32-36 G/DL Red Cell Distribution Width 16.1 H 10.0-14.5 % Platelet Count 194 130-400 10^3/uL Mean Platelet Volume 10.5 H 7.4-10.4 FL Neutrophils (%) (Auto) 53 42-75 % Lymphocytes (%) (Auto) 40 12-44 % Monocytes (%) (Auto) 6 0-12 % Eosinophils (%) (Auto) 2 0-10 % Basophils (%) (Auto) 0 0-10 % Neutrophils # (Auto) 3.5 1.8-7.8 X 10^3 Lymphocytes # (Auto) 2.7 1.0-4.0 X 10^3 Monocytes # (Auto) 0.4 0.0-1.0 X 10^3 Eosinophils # (Auto) 0.1 0.0-0.3 10^3/uL Basophils # (Auto) 0.0 0.0-0.1 10^3/uL Prothrombin Time 12.7 12.2-14.7 SEC INR Comment 0.9 0.8-1.4 Activated Partial Thromboplast Time 25 24-35 SEC Sodium Level 142 135-145 MMOL/L Potassium Level 3.9 3.6-5.0 MMOL/L Chloride Level 109 H 98-107 MMOL/L Carbon Dioxide Level 21 21-32 MMOL/L Anion Gap 12 5-14 MMOL/L Blood Urea Nitrogen 17 7-18 MG/DL Creatinine 0.85 0.60-1.30 MG/DL Estimat Glomerular Filtration Rate > 60 BUN/Creatinine Ratio 20 Glucose Level 106 H 70-105 MG/DL Calcium Level 8.7 8.5-10.1 MG/DL Corrected Calcium 8.9 8.5-10.1 MG/DL Magnesium Level 2.1 1.6-2.4 MG/DL Total Bilirubin 0.6 0.1-1.0 MG/DL Aspartate Amino Transf (AST/SGOT) 21 5-34 U/L Alanine Aminotransferase (ALT/SGPT) 22 0-55 U/L Alkaline Phosphatase 73 40-136 U/L Total Creatine Kinase 86 29-168 U/L Creatine Kinase MB 1.6 <6.6 NG/ML Troponin I < 0.028 <0.028 NG/ML B-Type Natriuretic Peptide < 10.0 <100.0 PG/ML Total Protein 6.3 L 6.4-8.2 GM/DL Albumin 3.8 3.2-4.5 GM/DL Amylase Level 35 25-125 U/L Lipase 8 8-78 U/L TSH [facility] Testing 0.96 0.35-4.94 UIU/ML Urine Color YELLOW Urine Clarity CLEAR Urine pH 6.0 5-9 Urine Specific [place] 1.020 1.016-1.022 Urine Protein NEGATIVE NEGATIVE Urine Glucose (UA) NEGATIVE NEGATIVE Urine Ketones NEGATIVE NEGATIVE Urine Nitrite NEGATIVE NEGATIVE Urine Bilirubin NEGATIVE NEGATIVE Urine Urobilinogen 0.2 < = 1.0 MG/DL Urine Leukocyte Esterase NEGATIVE NEGATIVE Urine RBC (Auto) NEGATIVE NEGATIVE Urine RBC NONE /HPF Urine WBC NONE /HPF Urine Squamous Epithelial Cells RARE /HPF Urine Crystals NONE /LPF Urine Bacteria NEGATIVE /HPF Urine Casts NONE /LPF Urine Mucus NEGATIVE /LPF Urine Culture Indicated NO My Orders Orders - ADRIANA TRIPP DO Ed Iv/Invasive Line Start (11/27/19 10:11) Ekg Tracing (11/27/19 10:11) Monitor-Rhythm Ecg Trace Only (11/27/19 10:11) Straight Cath For Spec.-Adult (11/27/19 10:11) Chest 1 View, Ap/Pa Only (11/27/19 10:11) Ct Head Wo-R/O Stroke (11/27/19 10:11) Amylase (11/27/19 10:11) BNP (11/27/19 10:11) Cbc With Automated Diff (11/27/19 10:11) Comprehensive Metabolic Panel (11/27/19 10:11) Creatine Kinase (11/27/19 10:11) Creatine Kinase Mb (11/27/19 10:11) Lipase (11/27/19 10:11) Magnesium (11/27/19 10:11) Protime With Inr (11/27/19 10:11) Partial Thromboplastin Time (11/27/19 10:11) Thyroid Analyzer (11/27/19 10:11) Ua Culture If Indicated (11/27/19 10:11) Troponin I (11/27/19 10:11) Vital Signs/I&O Capillary Refill : Progress Note : Progress Note UNEVENTFUL ER STAY PT IS ABLE TO STAND ON HER OWN AND TRANSFER TO WHEELCHAIR DISCUSSED WITH PRIOR TO DISMISSAL, AND HE IS ALSO A VERY LIMITED HISTORIAN--STATES "SHE SLEPT ALL DAY YESTERDAY" HER ONLY SYMPTOM. ECG Initial ECG Impression Date: Nov 27, 2019 Initial ECG Impression Time: 10:16 Initial ECG Rate: 67 Initial ECG Rhythm: Normal Sinus Diagnostic Imaging Comments CT HEAD--PER RADIOLOGIST REPORT AT 1136 Discussion: Encephalomalacia within the left frontal lobe with ex vacuo dilatation of the left ventricle is stable. Dense material within the adjacent parenchyma is stable, likely scarring. Otherwise no acute intracranial hemorrhage, mass, midline shift, hydrocephalus. The orbits, sinuses, mastoid air cells, and calvarium are unremarkable. Craniotomy changes within the left frontal bone are stable. Impression: 1. Stable chronic changes as discussed. No acute intracranial abnormality identified otherwise. CXR--PER RADIOLOGIST REPORT AT 1138 Discussion: Single portable upright view of the chest was obtained. Right elevated hemidiaphragm is again noted. Normal heart size. No consolidation, pleural fluid, or pneumothorax. No osseous abnormality. Impression: 1. No acute cardiopulmonary process. Reviewed: Reviewed by Me Departure Impression Primary Impression: General medical exam Additional Impression: Dementia Disposition: 01 HOME, SELF-CARE Condition: Stable Departure-Patient Inst. Referrals: ZULEYMA VAUGHAN MD (PCP/Family) Primary Care Physician Patient Instructions: Dementia (DC), Tips for Caregivers of People With Alzheimer Disease Add. Discharge Instructions: CONTINUE YOUR REGULAR MEDICATIONS PRESCRIBED EAT AND DRINK USUAL FOLLOW UP WITH DR. VAUGHAN'S OFFICE IN 2-3 DAYS FOR FURTHER CARE ADRIANA TRIPP DO Nov 27, 2019 10:26
[2019-11-27 10:28] LABS: INR 0.9 (0.8-1.4); PROTHROMBIN TIME PATIENT 12.7 SEC (12.2-14.7)
[2019-11-27 10:29] LABS: ALBUMIN 3.8 GM/DL (3.2-4.5); CHLORIDE 109 MMOL/L (98-107); POTASSIUM 3.9 MMOL/L (3.6-5.0); SODIUM 142 MMOL/L (135-145)
[2019-11-27 10:30] LABS: CALCIUM 8.7 MG/DL (8.5-10.1)
[2019-11-27 10:31] LABS: AMYLASE 35 U/L (25-125); GLUCOSE 106 MG/DL (70-105)
[2019-11-27 10:32] LABS: TOTAL PROTEIN 6.3 GM/DL (6.4-8.2)
[2019-11-27 10:33] LABS: BILIRUBIN,TOTAL 0.6 MG/DL (0.1-1.0); CARBON DIOXIDE 21 MMOL/L (21-32)
[2019-11-27 10:34] LABS: BILIRUBIN,URINE NEGATIVE (NEGATIVE); CLARITY,URINE CLEAR; COLOR,URINE YELLOW; GLUCOSE, URINE (UA) NEGATIVE (NEGATIVE); KETONES,URINE NEGATIVE (NEGATIVE); LEUKOCYTE ESTERASE ,URINE NEGATIVE (NEGATIVE); NITRITE,URINE NEGATIVE (NEGATIVE); PROTEIN,URINE NEGATIVE (NEGATIVE)
[2019-11-27 10:35] LABS: ALKALINE PHOSPHATASE 73 U/L (40-136); CREATININE SERUM 0.85 MG/DL (0.60-1.30); GFR ESTIMATED > 60
[2019-11-27 10:36] LABS: BUN/CREATININE RATIO 20
[2019-11-27 10:38] LABS: ALANINE AMINOTRANSFERASE 22 U/L (0-55); MAGNESIUM 2.1 MG/DL (1.6-2.4)
[2019-11-27 10:39] LABS: CREATINE KINASE 86 U/L (29-168); LIPASE 8 U/L (8-78)
[2019-11-27 10:42] LABS: BACTERIA,URINE NEGATIVE /HPF; SQUAMOUS EPITHELIAL CELL,UR RARE /HPF
[2019-11-27 10:46] LABS: CREATINE KINASE MB 1.6 NG/ML (<6.6)
[2019-11-27 10:59] LABS: TSH (THYROID ANALYZER) 0.96 UIU/ML (0.35-4.94)
--- NOTE | 2019-11-27 11:34 | Diagnostic Imaging Report ---
PROCEDURE: CT head wo r/o stroke. TECHNIQUE: Multiple contiguous axial images were obtained through the brain without the use of intravenous contrast. Auto Exposure Controls were utilized during the CT exam to meet ALARA standards for radiation dose reduction. Indication: Altered mental status, difficulty walking. Comparison: 09/20/2018. Discussion: Encephalomalacia within the left frontal lobe with ex vacuo dilatation of the left ventricle is stable. Dense material within the adjacent parenchyma is stable, likely scarring. Otherwise no acute intracranial hemorrhage, mass, midline shift, hydrocephalus. The orbits, sinuses, mastoid air cells, and calvarium are unremarkable. Craniotomy changes within the left frontal bone are stable. Impression: 1. Stable chronic changes as discussed. No acute intracranial abnormality identified otherwise. Dictated by: Dictated on workstation # [id number]
--- NOTE | 2019-11-27 11:35 | Diagnostic Imaging Report ---
Indication: Weakness and dyspnea. Comparison: 09/20/2018. Discussion: Single portable upright view of the chest was obtained. Right elevated hemidiaphragm is again noted. Normal heart size. No consolidation, pleural fluid, or pneumothorax. No osseous abnormality. Impression: 1. No acute cardiopulmonary process. Dictated by: Dictated on workstation # [id number]
[2019-11-27 11:53] VITALS: BP 134/89
== END 2019-11-27 11:53 | disposition home or self-care (01) ==
LOC: EDUNIT# 10:07 → ER 10:07
DX: Z00.8 Encounter for other general examination (principal); F03.90 Unspecified dementia, unspecified severity, without behavioral disturbance, psychotic disturbance, mood disturbance, and anxiety; E11.9 Type 2 diabetes mellitus without complications; G40.909 Epilepsy, unspecified, not intractable, without status epilepticus; G89.29 Other chronic pain; M54.9 Dorsalgia, unspecified; Z91.14 Patient's other noncompliance with medication regimen; Z93.1 Gastrostomy status; Z79.891 Long term (current) use of opiate analgesic; Z88.0 Allergy status to penicillin; Z88.8 Allergy status to other drugs, medicaments and biological substances; Z86.73 Personal history of transient ischemic attack (TIA), and cerebral infarction without residual deficits; Z79.82 Long term (current) use of aspirin; Z79.02 Long term (current) use of antithrombotics/antiplatelets; Z82.49 Family history of ischemic heart disease and other diseases of the circulatory system
CPT/HCPCS: 36415; 51701; 70450; 71045; 80053; 81000; 82150; 82550; 82553; 83690; 83735; 83880; 84443; 84484; 85025; 85610; 85730; 93005; 93041

== ENCOUNTER 2020-04-19 16:36 | Emergency (ER) | payer MEDICARE, BC ==
[~2020-04-19] VITALS: Ht 154.9 cm; Wt 65.9 kg
[~2020-04-19 16:36] MED LIST changes: +ASPI-1238; -ASPI-983
--- NOTE | 2020-04-19 16:52 | ED General ---
General Stated Complaint: FALL/LOWER BACK PAIN Source of Information: Patient Exam Limitations: No Limitations History of Present Illness Date Seen by Provider: Apr 19, 2020 Time Seen by Provider: 16:48 Initial Comments To ER with reports of fall and low back pain. Patient was making the bed when she fell. When the entered the room he found her laying on the floor. Called EMS to have her evaluated (subsequently injuring himself for which he is also being seen). EMS reports that she complained of some low back pain upon their arrival and has a history of some lumbar surgery. She has a history of CVA with subsequent "trouble communicating" according to the . Timing/Duration: 1-3 Hours Severity: Moderate Associated Systoms: Denies Symptoms Allergies and Home Medications Allergies Coded Allergies: Penicillins (Unverified Allergy, Unknown, HIVES, 12/21/15) THROAT SWELLS Uncoded Allergies: PAULINO INHIBITOR 2 (Allergy, Unknown, HIVES, 12/21/15) THROAT SWELLS Home Medications Aspirin 81 Mg Tab.chew, 81 MG PO DAILY@0900 Prescribed by: ZULEYMA VAUGHAN on 09/21/18820 Clopidogrel Bisulfate 75 Mg Tablet, 75 MG PO DAILY Prescribed by: ZULEYMA VAUGHAN on 09/21/18820 Epinephrine 0.3 Mg/0.3 Ml Auto.injct, 0.3 MG IJ UD PRN for ALLERGIC REACTION, (Reported) Hydrocodone Bit/Acetaminophen 1 Each Tablet, 1 TAB PO Q6H PRN for PAIN-MODERATE, (Reported) Levetiracetam 500 Mg Tablet, 500 MG PO BID Prescribed by: ZULEYMA VAUGHAN on 09/21/18820 Memantine HCl 10 Mg Tablet, 10 MG PO DAILY, (Reported) Multivitamin 1 Each Tablet, 1 TAB PO DAILY, (Reported) Patient Home Medication List Home Medication List Reviewed: Yes Review of Systems Review of Systems Constitutional: see HPI EENTM: see HPI Respiratory: no symptoms reported Cardiovascular: no symptoms reported Genitourinary: no symptoms reported Musculoskeletal: see HPI, back pain Skin: no symptoms reported Psychiatric/Neurological: No Symptoms Reported Hematologic/Lymphatic: No Symptoms Reported Past Vgupfzx-Otmefi-Qssrsx Hx Patient Social History 2nd Hand Smoke Exposure: No Recent Hopitalizations: No Immunizations Up To Date Tetanus Booster (TDap): More than 5yrs Date of Pneumonia Vaccine: Dec 21, 2016 Date of Influenza Vaccine: Feb 16, 2012 Seasonal Allergies Seasonal Allergies: Yes Past Medical History Surgeries: Yes ("spinal cage" and gastrostomy tube placement;CRANIOTOMY) Abdominal, Hysterectomy, Neurological, Orthopedic, Tonsillectomy Respiratory: Yes Asthma Cardiac: No Neurological: Yes (HEMORRHAGIC CVA-S/P CRANIOTOMY; SEVERE DEMENTIA/MEMORY IMPAIRMENT) Dementia, Seizure Disorder, Stroke Reproductive Disorders: No Genitourinary: No Gastrointestinal: Yes (G-TUBE ) Musculoskeletal: Yes ("SPINAL CAGE") Osteoporosis, Arthritis, Chronic Back Pain, Fractures Endocrine: Yes (WAS ON MEDICATIONS FOR DIABETES, BUT NOT ANY LONGER) Diabetes, Non-Insulin dep HEENT: No Cancer: No Psychosocial: Yes Depression Integumentary: No Blood Disorders: No Family Medical History Alzheimer's disease 19 MOTHER Arthritis 19 MOTHER Completed stroke Coronary thrombosis G8 BROTHER Diabetes mellitus 19 MOTHER Glaucoma 19 MOTHER Hypertension 19 FATHER Neoplasm 19 FATHER Osteoporosis 19 MOTHER Respiratory disorder G8 BROTHER Thyroid disease 19 MOTHER PSH: -FEEDING TUBE PLACEMENT/LATER REMOVAL -C-SPINE SURGERY -L-SPINE SURGERY X 2 Physical Exam Vital Signs Vital Signs - First Documented 04/19/20 16:37 Temp 35.9 Pulse 73 Resp 18 B/P (MAP) 134/89 (104) Pulse Ox 96 O2 Delivery Room Air Capillary Refill : Height, Weight, BMI Height: 5'1.00" Weight: 130lbs. 0.0oz. 58.743350sm; 29.00 BMI Method:Estimated General Appearance: No Apparent Distress, WD/WN Eyes: Bilateral Eye Normal Inspection, Bilateral Eye PERRL, Bilateral Eye EOMI Neck: Full Range of Motion, Normal Inspection Respiratory: No Accessory Muscle Use, No Respiratory Distress Extremity: Normal Capillary Refill, Normal Inspection Neurologic/Psychiatric: Alert, Other Skin: Normal Color, Warm/Dry Progress/Results/Core Measures Suspected Sepsis SIRS Temperature: Pulse: Respiratory Rate: Blood Pressure / Mean: Results/Orders My Orders Orders - BOUCHRA TONG APRN Ct Head/Cervical Spine Wo (04/19/20 16:47) Lumbar Spine - 2-3 Views (04/19/20 16:47) Pelvis (04/19/20 16:47) Tramadol Tablet (Ultram Tablet) (04/19/20 18:00) Rx-Hydrocodone/Apap 5-325 Mg (Rx-Vicodin (04/19/20 18:00) Medications Given in ED Current Medications Medications Dose Ordered Sig/Marie Route Start Time Stop Time Status Last Admin Dose Admin Acetaminophen/ Hydrocodone Bitart 1 ea Q4H PRN PO 04/19/20 18:00 04/19/20 18:06 1 EA Vital Signs/I&O 04/19/20 16:37 Temp 35.9 Pulse 73 Resp 18 B/P (MAP) 134/89 (104) Pulse Ox 96 O2 Delivery Room Air Capillary Refill : Diagnostic Imaging Diagonstic Imaging: CT Comments NAME: SARAH POE MED REC#: [id number] PT STATUS: REG ER : 1950 PHYSICIAN: BOUCHRA TONG APRN ADMIT DATE: 04/19/20/ER Draft Date of Exam:04/19/20 CT HEAD/CERVICAL SPINE WO PROCEDURE: CT head and CT cervical spine without contrast. TECHNIQUE: Multiple contiguous axial images were obtained through the brain and cervical spine without the use of intravenous contrast. Sagittal and coronal reformations through the cervical spine were then performed. Auto Exposure Controls were utilized during the CT exam to meet ALARA standards for radiation dose reduction. INDICATION: Fall on making bed this morning. History of stroke. COMPARISON: CT head without contrast 11/27/2019. FINDINGS: CT HEAD: Chronic infarct in the left frontal lobe. Advanced generalized cerebral and cerebellar parenchymal volume loss. No CT evidence of acute territorial infarction. No intracranial hemorrhage, mass effect, hydrocephalus or extra-axial fluid collections. Postoperative changes in the maxilla are partially visualized. No acute osseous findings. The visualized paranasal sinuses and mastoids are unremarkable. CT CERVICAL SPINE: Postoperative findings from anterior fusion with interbody devices at C5-C7. Minimal of C3 on C4 and C4 on C5. Evaluation somewhat limited by motion in the upper cervical spine and streak artifact in the lower. No fractures are identified. No high-grade spinal canal stenosis on soft tissue windows. Mild atherosclerotic ossifications in the carotid bifurcations. IMPRESSION: 1. Evaluation of the upper cervical spine is limited by motion. 2. No acute intracranial or cervical spine CT findings. Dictated on workstation # [id number] Dict: 04/19/20 1731 Trans: 04/19/20 173 [facility] [id number] Interpreted by: GLENDA REY MD Electronically signed by: NAME: SARAH POE MED REC#: [id number] PT STATUS: REG ER : 1950 PHYSICIAN: BOUCHRA TONG APRN ADMIT DATE: 04/19/20/ER Draft Date of Exam:04/19/20 PELVIS EXAM: Pelvis radiograph EXAM DATE: 04/19/2020 COMPARISON: None. HISTORY: Fall onto hips with pain. TECHNIQUE: Single view of the pelvis. FINDINGS: There is no acute fracture, dislocation, or other destructive osseous process. There is joint space narrowing and small osteophyte formation symmetrically involving the hips. Surgical changes from lumbosacral spinal fusion. Visualized pelvis is unremarkable. Moderate stool burden. IMPRESSION: Degenerative changes of the hips without other acute osseous abnormality of the pelvis. Dictated on workstation # [id number] Dict: 04/19/20 1739 Trans: 04/19/20 1744 [facility] [id number] Interpreted by: DARELL KHAN DO Electronically signed by: NAME: SARAH POE [facility] REC#: [id number] PT STATUS: REG ER : 1950 PHYSICIAN: BOUCHRA TONG APRN ADMIT DATE: 04/19/20/ER Draft Date of Exam:04/19/20 LUMBAR SPINE - 2-3 VIEWS EXAM: LUMBAR SPINE - 2-3 VIEWS INDICATION: Fall. Stroke. COMPARISON: MRI lumbar spine without contrast 07/12/2016. FINDINGS: There are 5 lumbar-type vertebral bodies. Postoperative findings bilateral rods and pedicle screw fixation with laminectomies at L1-L5 and interbody fusions at L3-L5. Vertebroplasty changes in the L2 and L3 vertebral bodies. Hardware components appear intact. No evidence of loosening. The single left L3 pedicle screw likely breaches the superior endplate, stable compared to the prior exam. There is mild height loss of the T12 segment which is age indeterminate but is new since 2017. Visualized pelvis is intact. IMPRESSION: 1. Mild height loss of the T12 superior endplate of approximately 10% is age indeterminate but new since 2017. 2. Extensive postoperative changes at L1-L5. No evidence of hardware failure. Dictated on workstation # [id number] Dict: 04/19/201740 Trans: 04/19/201748 [facility] [id number] Interpreted by: GLENDA REY MD Electronically signed by: Departure Impression Primary Impression: Low back pain Qualified Codes: M54.5 - Low back pain Additional Impressions: Fall at home Qualified Codes: W19.XXXA - Unspecified fall, initial encounter; Y92.009 - Unspecified place in unspecified non-institutional (private) residence as the place of occurrence of the external cause Lumbar compression fracture Disposition: HOME, SELF-CARE Condition: Stable Departure-Patient Inst. Decision time for Depature: 18:24 Referrals: ZULEYMA VAUGHAN MD (PCP/Family) Primary Care Physician Patient Instructions: Vertebral Compression Fracture Add. Discharge Instructions: 1. Take the pain medication as directed. Be aware this can be constipating so would be a good idea to take the stool softener I prescribed as well. If Tylenol or ibuprofen controls the pain adequately then you can just use that for pain control. Follow-up with your doctor later next week for recheck. Scripts Docusate Sodium (Colace) 100 Mg Capsule 100 MG PO DAILY, #10 CAP Prov: BOUCHRA TONG TRACK OILER 04/19/20 Hydrocodone/Acetaminophen (Hydrocodone-Acetamin 5-325 mg) 1 Each Tablet 1 EACH PO Q6H PRN for PAIN-MODERATE (5-7), #10 TAB Prov: BOUCHRA TONG APRN 04/19/20 BOUCHRA TONG APRN Apr 19, 2020 16:52
--- NOTE | 2020-04-19 17:39 | Diagnostic Imaging Report ---
PROCEDURE: CT head and CT cervical spine without contrast. TECHNIQUE: Multiple contiguous axial images were obtained through the brain and cervical spine without the use of intravenous contrast. Sagittal and coronal reformations through the cervical spine were then performed. Auto Exposure Controls were utilized during the CT exam to meet ALARA standards for radiation dose reduction. INDICATION: Fall on making bed this morning. History of stroke. COMPARISON: CT head without contrast 11/27/2019. FINDINGS: CT HEAD: Chronic infarct in the left frontal lobe. Advanced generalized cerebral and cerebellar parenchymal volume loss. No CT evidence of acute territorial infarction. No intracranial hemorrhage, mass effect, hydrocephalus or extra-axial fluid collections. Postoperative changes in the maxilla are partially visualized. No acute osseous findings. The visualized paranasal sinuses and mastoids are unremarkable. CT CERVICAL SPINE: Postoperative findings from anterior fusion with interbody devices at C5-C7. Minimal of C3 on C4 and C4 on C5. Evaluation somewhat limited by motion in the upper cervical spine and streak artifact in the lower. No fractures are identified. No high-grade spinal canal stenosis on soft tissue windows. Mild atherosclerotic ossifications in the carotid bifurcations. IMPRESSION: 1. Evaluation of the upper cervical spine is limited by motion. 2. No acute intracranial or cervical spine CT findings. Dictated by: Dictated on workstation # [id number]
--- NOTE | 2020-04-19 17:44 | Diagnostic Imaging Report ---
EXAM: Pelvis radiograph EXAM DATE: 04/19/2020 COMPARISON: None. HISTORY: Fall onto hips with pain. TECHNIQUE: Single view of the pelvis. FINDINGS: There is no acute fracture, dislocation, or other destructive osseous process. There is joint space narrowing and small osteophyte formation symmetrically involving the hips. Surgical changes from lumbosacral spinal fusion. Visualized pelvis is unremarkable. Moderate stool burden. IMPRESSION: Degenerative changes of the hips without other acute osseous abnormality of the pelvis. Dictated by: Dictated on workstation # [id number]
--- NOTE | 2020-04-19 17:49 | Diagnostic Imaging Report ---
EXAM: LUMBAR SPINE - 2-3 VIEWS INDICATION: Fall. Stroke. COMPARISON: MRI lumbar spine without contrast 07/12/2016. FINDINGS: There are 5 lumbar-type vertebral bodies. Postoperative findings bilateral rods and pedicle screw fixation with laminectomies at L1-L5 and interbody fusions at L3-L5. Vertebroplasty changes in the L2 and L3 vertebral bodies. Hardware components appear intact. No evidence of loosening. The single left L3 pedicle screw likely breaches the superior endplate, stable compared to the prior exam. There is mild height loss of the T12 segment which is age indeterminate but is new since 2017. Visualized pelvis is intact. IMPRESSION: 1. Mild height loss of the T12 superior endplate of approximately 10% is age indeterminate but new since 2017. 2. Extensive postoperative changes at L1-L5. No evidence of hardware failure. Dictated by: Dictated on workstation # [id number]
[2020-04-19] MEDS ORDERED: RX-HYDROCODONE/APAP 5/325 MG #4 TAB PK PO PRN (18:00)
[2020-04-19] MEDS ORDERED: DOCU-143 PO (18:26)
[2020-04-19] MEDS ORDERED: ACHD5005 PO (18:26)
[2020-04-19 18:30] VITALS: BP 115/86
== END 2020-04-19 18:36 | disposition home or self-care (01) ==
LOC: EDUNIT# 16:36 → ER 16:38
DX: S32.010A Wedge compression fracture of first lumbar vertebra, initial encounter for closed fracture (principal); S32.020A Wedge compression fracture of second lumbar vertebra, initial encounter for closed fracture; S32.030A Wedge compression fracture of third lumbar vertebra, initial encounter for closed fracture; S32.050A Wedge compression fracture of fifth lumbar vertebra, initial encounter for closed fracture; G40.909 Epilepsy, unspecified, not intractable, without status epilepticus; G89.29 Other chronic pain; M54.9 Dorsalgia, unspecified; Z88.8 Allergy status to other drugs, medicaments and biological substances; Z88.0 Allergy status to penicillin; Z80.9 Family history of malignant neoplasm, unspecified; Z83.3 Family history of diabetes mellitus; Z82.61 Family history of arthritis; Z82.49 Family history of ischemic heart disease and other diseases of the circulatory system; Z79.82 Long term (current) use of aspirin; Z79.891 Long term (current) use of opiate analgesic; W06.XXXA Fall from bed, initial encounter; Y92.009 Unspecified place in unspecified non-institutional (private) residence as the place of occurrence of the external cause
CPT/HCPCS: 70450; 72100; 72125; 72170

== ENCOUNTER 2020-09-18 16:52 | Emergency (ER) | payer MEDICARE, BC ==
[~2020-09-18] VITALS: Ht 152.4 cm; Wt 63.5 kg
[~2020-09-18 16:52] MED LIST changes: +DOCU-143 PO
--- NOTE | 2020-09-18 17:05 | ED Neurological Problem ---
General Stated Complaint: SEIZURE Source: patient Exam Limitations: no limitations (NIKHIL WILDER) History of Present Illness Date Seen by Provider: September 18, 2020 Time Seen by Provider: 16:45 Initial Comments Patient presents ER by EMS from home with chief complaint that is prior to arrival the significant other witnessed her have a 2 to 3-minute long tonic- clonic seizure. She has a history of epilepsy but has not been taking any medicines for the past year. The did not give any further history why she was not on that medicine. No history of recent illness fever chills cough shortness of air. Fire noticed patient had oxygen saturations in the 70% and so put her on a nonrebreather. Also notes her blood pressure was low so EMS initiated a liter of fluids and said her blood pressure was in the 120s and when they rechecked it. (NIKHIL WILDER) Allergies and Home Medications Allergies Coded Allergies: Penicillins (Unverified Allergy, Unknown, HIVES, 12/21/15) THROAT SWELLS Uncoded Allergies: PAULINO INHIBITOR 2 (Allergy, Unknown, HIVES, 12/21/15) THROAT SWELLS Home Medications Aspirin 81 Mg Tab.chew, 81 MG PO DAILY@0900 Prescribed by: ZULEYMA OCHOA on 09/21/18820 Ciprofloxacin HCl 500 Mg Tablet, 500 MG PO BID Prescribed by: TREMAYNE COURTNEY on 09/18/202110 Clopidogrel Bisulfate 75 Mg Tablet, 75 MG PO DAILY Prescribed by: ZULEYMA OCHOA on 09/21/18820 Docusate Sodium 100 Mg Capsule, 100 MG PO DAILY Prescribed by: BOUCHRA TONG on 04/19/201825 Epinephrine 0.3 Mg/0.3 Ml Auto.injct, 0.3 MG IJ UD PRN for ALLERGIC REACTION, (Reported) Hydrocodone Bit/Acetaminophen 1 Each Tablet, 1 TAB PO Q6H PRN for PAIN-MODERATE, (Reported) Hydrocodone/Acetaminophen 1 Each Tablet, 1 EACH PO Q6H PRN for PAIN-MODERATE (5- 7) Prescribed by: BOUCHRA TONG on 04/19/201826 Levetiracetam 500 Mg Tablet, 500 MG PO BID Prescribed by: ZULEYMA OCHOA on 09/21/18820 Levetiracetam 500 Mg Tablet, 500 MG PO BID Prescribed by: TREMAYNE COURTNEY on 09/18/202110 Memantine HCl 10 Mg Tablet, 10 MG PO DAILY, (Reported) Multivitamin 1 Each Tablet, 1 TAB PO DAILY, (Reported) Patient Home Medication List Home Medication List Reviewed: Yes (NIKHIL WILDER) Review of Systems Review of Systems Constitutional: see HPI, weakness Eyes: No Symptoms Reported Ears, Nose, Mouth, Throat: no symptoms reported Respiratory: no symptoms reported Cardiovascular: no symptoms reported Gastrointestinal: no symptoms reported Genitourinary: no symptoms reported Musculoskeletal: other (RLE Pain) Skin: no symptoms reported Psychiatric/Neurological: See HPI Endocrine: No Symptoms Reported Hematologic/Lymphatic: No Symptoms Reported (TREMAYNE SCHILLING MD) Past Eyppera-Yjwosb-Pyncud Hx Past Med/Social Hx: Reviewed Nursing Past Med/Soc Hx (TREMAYNE SCHILLING MD) Patient Social History 2nd Hand Smoke Exposure: No Recent Hopitalizations: No (NIKHIL WILDER) Immunizations Up To Date Tetanus Booster (TDap): More than 5yrs Date of Pneumonia Vaccine: Dec 21, 2016 Date of Influenza Vaccine: Feb 16, 2012 (NIKHIL WILDER) Seasonal Allergies Seasonal Allergies: Yes (NIKHIL WILDER) Past Medical History Surgeries: Yes ("spinal cage" and gastrostomy tube placement;CRANIOTOMY) Abdominal, Hysterectomy, Neurological, Orthopedic, Tonsillectomy Respiratory: Yes Asthma Cardiac: No Neurological: Yes (HEMORRHAGIC CVA-S/P CRANIOTOMY; SEVERE DEMENTIA/MEMORY IMPAIRMENT) Dementia, Seizure Disorder, Stroke Reproductive Disorders: No Genitourinary: No Gastrointestinal: Yes (G-TUBE ) Musculoskeletal: Yes ("SPINAL CAGE") Osteoporosis, Arthritis, Chronic Back Pain, Fractures Endocrine: Yes (WAS ON MEDICATIONS FOR DIABETES, BUT NOT ANY LONGER) Diabetes, Non-Insulin dep HEENT: No Cancer: No Psychosocial: Yes Depression Integumentary: No Blood Disorders: No (NIKHIL WILDER) Family Medical History Alzheimer's disease 19 MOTHER Arthritis 19 MOTHER Completed stroke Coronary thrombosis G8 BROTHER Diabetes mellitus 19 MOTHER Glaucoma 19 MOTHER Hypertension 19 FATHER Neoplasm 19 FATHER Osteoporosis 19 MOTHER Respiratory disorder G8 BROTHER Thyroid disease 19 MOTHER PSH: -FEEDING TUBE PLACEMENT/LATER REMOVAL -C-SPINE SURGERY -L-SPINE SURGERY X 2 (NIKHIL WILDER) Physical Exam Vital Signs Vital Signs - First Documented 09/18/20 16:52 Temp 36.1 Pulse 92 Resp 14 B/P (MAP) 105/59 (74) Pulse Ox 95 O2 Delivery Nasal Cannula O2 Flow Rate 2.00 (TREMAYNE SCHILLING MD) Vital Signs Capillary Refill : (NIKHIL WILDER) Height, Weight, BMI Height: 5'1.00" Weight: 130lbs. 0.0oz. 58.027361jt; 27.00 BMI Method:Estimated (NIKHLI WILDER) General Appearance: WD/WN, no apparent distress HEENT: PERRL/EOMI, normal ENT inspection, other (Mucous membranes somewhat dry) Respiratory: lungs clear, normal breath sounds, no respiratory distress, no accessory muscle use Cardiovascular: regular rate, rhythm, no edema, no murmur Gastrointestinal: normal bowel sounds, non tender, soft Back: no vertebral tenderness Extremities: normal inspection, no pedal edema Neurologic/Psychiatric: other (Patient is not following commands. She responds with "what" when asked questions. She is responsive to voice at this time. She seems to move all 4 extremities. She has pain with movement of the right lower extremity. This seems to be somewhere between the lower back and the right knee although it is very difficult to localize because she does not answer questions about it. Nursing staff reported that she seemed to have no pain with catheter specimen.) Crainal Nerves: PERRL Skin: normal color, warm/dry (TREMAYNE SCHILLING MD) Stroke NIH Stroke Scale Assessment Gaze: Normal (0), Total: Stroke Thrombolytic Exclusion Age 18 or Over: No Acute intenal hemorrhage: No History of CVA: Yes Uncontrolled Coagulation Defec: No Intracranial Hemorrhage: No Severe Hypertension: No GI or Bleed: No Subarachnoid Hemorrhage: No Intracranial Neoplasm/Aneurysm: No Oral Anticoagulants: No Surgery or Trauma: No Puncture of Non-Compressible V: No Recent CPR: No Diabetic Hemorrhagic Retinopat: No Organ Biopsy: No Recent Obstetric Delivery: No Glucose: No Significant Hepatic Dysfunctio: No NIH Stoke Scale >22: No Bacterial Endocarditis: No Pericarditis: No Improving Symptoms: No Platelets: No (NIKHIL WILDER) Progress/Results/Core Measures Results/Orders Lab Results Laboratory Tests Test 09/18/20 16:55 09/18/20 16:56 09/18/20 17:10 Range/Units White Blood Count 16.5 H 4.3-11.0 10^3/uL Red Blood Count 4.19 3.80-5.11 10^6/uL Hemoglobin 13.1 11.5-16.0 g/dL Hematocrit 39 35-52 % Mean Corpuscular Volume 93 80-99 fL Mean Corpuscular Hemoglobin 31 25-34 pg Mean Corpuscular Hemoglobin Concent 34 32-36 g/dL Red Cell Distribution Width 14.7 H 10.0-14.5 % Platelet Count 322 130-400 10^3/uL Mean Platelet Volume 11.2 9.0-12.2 fL Immature Granulocyte % (Auto) 5 % Neutrophils (%) (Auto) 54 42-75 % Lymphocytes (%) (Auto) 36 12-44 % Monocytes (%) (Auto) 4 0-12 % Eosinophils (%) (Auto) 1 0-10 % Basophils (%) (Auto) 1 0-10 % Neutrophils # (Auto) 8.9 H 1.8-7.8 10^3/uL Lymphocytes # (Auto) 5.9 H 1.0-4.0 10^3/uL Monocytes # (Auto) 0.7 0.0-1.0 10^3/uL Eosinophils # (Auto) 0.1 0.0-0.3 10^3/uL Basophils # (Auto) 0.1 0.0-0.1 10^3/uL Immature Granulocyte # (Auto) 0.8 H 0.0-0.1 10^3/uL Neutrophils % (Manual) 51 % Lymphocytes % (Manual) 28 % Monocytes % (Manual) 18 % Eosinophils % (Manual) 1 % Band Neutrophils 2 % Hypochromasia SLIGHT Anisocytosis SLIGHT Sodium Level 141 135-145 MMOL/L Potassium Level 3.7 3.6-5.0 MMOL/L Chloride Level 109 H 98-107 MMOL/L Carbon Dioxide Level 18 L 21-32 MMOL/L Anion Gap 14 5-14 MMOL/L Blood Urea Nitrogen 17 7-18 MG/DL Creatinine 0.88 0.60-1.30 MG/DL Estimat Glomerular Filtration Rate > 60 BUN/Creatinine Ratio 19 Glucose Level 144 H 70-105 MG/DL Calcium Level 8.5 8.5-10.1 MG/DL Corrected Calcium 8.7 8.5-10.1 MG/DL Total Bilirubin 0.5 0.1-1.0 MG/DL Aspartate Amino Transf (AST/SGOT) 30 5-34 U/L Alanine Aminotransferase (ALT/SGPT) 42 0-55 U/L Alkaline Phosphatase 84 40-136 U/L Total Creatine Kinase 34 29-168 U/L C-Reactive Protein High Sensitivity 0.53 H 0.00-0.50 MG/DL Total Protein 6.2 L 6.4-8.2 GM/DL Albumin 3.7 3.2-4.5 GM/DL Glucometer 141 H 70-110 MG/DL Urine Color YELLOW Urine Clarity CLEAR Urine pH 7.5 5-9 Urine Specific [place] 1.020 1.016-1.022 Urine Protein NEGATIVE NEGATIVE Urine Glucose (UA) NEGATIVE NEGATIVE Urine Ketones NEGATIVE NEGATIVE Urine Nitrite NEGATIVE NEGATIVE Urine Bilirubin NEGATIVE NEGATIVE Urine Urobilinogen 0.2 < = 1.0 MG/DL Urine Leukocyte Esterase NEGATIVE NEGATIVE Urine RBC (Auto) NEGATIVE NEGATIVE Urine RBC NONE /HPF Urine WBC NONE /HPF Urine Squamous Epithelial Cells 0-2 /HPF Urine Crystals NONE /LPF Urine Bacteria LARGE H /HPF Urine Casts NONE /LPF Urine Mucus NEGATIVE /LPF Urine Culture Indicated NO (TREMAYNE SCHILLING MD) My Orders Orders - TREMAYNE SCHILLING MD Creatine Kinase (09/18/20 17:55) Femur, Right, 2 Views (09/18/20 18:29) Tibia/Fibula, Right, 2 Views (09/18/20 18:29) Ct Pelvis Wo (09/18/20 18:29) Ct Thoracic/Lumbar Spine Wo (09/18/20 18:29) Ct Cervical Spine Wo (09/18/20 18:29) Levetiracetam Injection (Keppra Injectio (09/18/20 18:45) Fentanyl Inj (Sublimaze Injection) (09/18/20 18:45) Meropenem (Merrem 500 Mg) (09/18/20 18:45) (TREMAYNE SCHILLING MD) Medications Given in ED (TREMAYNE SCHILLING MD) Vital Signs/I&O 09/18/20 09/18/20 16:52 21:26 Temp 36.1 Pulse 92 89 Resp 14 14 B/P (MAP) 105/59 (74) 110/63 Pulse Ox 95 96 O2 Delivery Nasal Cannula Room Air O2 Flow Rate 2.00 5/ 00:00 Intake Total 415 ml Balance 415 ml (TREMAYNE SCHILLING MD) Progress Progress Note #1: Time: 18:44 Progress Note I have assumed care of this patient from Dr. Wilder at shift change. Work-up was in progress. Labs are relatively unremarkable. Urine demonstrated bacteria but no pyuria. We will treat as a urinary tract infection initially with meropenem. Patient does have a history of seizure disorder but has not been on antiepileptic medication for about 2 years. She does have history of hemorrhagic stroke and dementia. She was on Keppra at one point while she was in the hospital. Patient now sees Dr. Ochoa for primary care. states that she is on hospice. He would like to bring her home and remain on hospice if at all possible. He believes he can take care of her with the help of the home services he receives. CT of the head was unremarkable for acute changes. Patient seems to have pain with any movement of the right lower extremity beyond the distal knee. I am not sure where this pain is coming from as we are having difficulty localizing it on exam. We are going to x-ray the tib-fib and femur, as well as CT the pelvis and spine. is quite concerned that she may have "dislocated something" or injured her back again during the seizure. Patient was in a wheelchair during the seizure and was buckled in. She did not fall to the floor. Tonic-clonic seizure activity lasted about 3 minutes by 's estimate. He has not seen her have this type of seizure-like activity at any point in the past. Back does not appear to be tender to palpation. Keppra 500 mg IV was given for seizure prevention. Progress Note #2: Progress Note CT of the spine revealed multiple compression fractures. CT of the pelvis revealed a right subcapital fracture. I discussed the situation with Dr. Ochoa and Dr. BHAT. Neither think the patient would be a very good surgical candidate. Because the nature of the hip fracture repair would be prosthesis, there is not a echevarria to perform surgery at this time. If patient d oes not tolerate pain well with medications provided by hospice, surgery can be considered later as a comfort measure. Patient's does not think patient would be a good surgical candidate either and he wishes to return home on hospice care. Arrangements were made for EMS transport back home. I have also provided an update to the hospice nurse who will meet them at the house. (TREMAYNE SCHILLING MD) Initial ECG Impression Date: September 18, 2020 Initial ECG Impression Time: 17:03 Initial ECG Rate: 105 Initial ECG Rhythm: S.Tach Comment Sinus tachycardia with no ST elevation or depression. No abnormal intervals or axis deviation. (TREMAYNE SCHILLING MD) Diagnostic Imaging Diagonstic Imaging: CT Plain Films/CT/US/NM/MRI: c-spine, head Comments CT head and c-spine viewed by me and report reviewed. See report below: NAME: SARAH POE [facility] REC#: [id number] PT STATUS: REG ER : 1950 PHYSICIAN: NIKHIL WILDER MD ADMIT DATE: 09/18/20/ER Draft Date of Exam:09/18/20 CT HEAD WO PROCEDURE: CT head without contrast. TECHNIQUE: Multiple contiguous axial images were obtained through the brain without the use of intravenous contrast. Auto Exposure Controls were utilized during the CT exam to meet ALARA standards for radiation dose reduction. INDICATION: Seizure. Prolonged postictal. COMPARISON: 04/19/2020. FINDINGS: The ventricles and cortical sulci are prominent. There is no midline shift or mass effect identified. No acute intracranial hemorrhage is seen. There is encephalomalacia in left frontal lobe from old infarct. This appears stable since the prior exam. Areas of decreased attenuation are seen in the subcortical and periventricular white matter. These likely represent chronic microvascular disease. No CT evidence of acute territorial ischemia is seen. The calvarium is intact. The paranasal sinuses appear clear. There are postsurgical changes of the face and left frontal bone. IMPRESSION: 1. No acute intracranial hemorrhage. No CT evidence of acute territorial ischemia. 2. Generalized parenchymal volume loss and findings of chronic microvascular disease. Dictated on workstation # [id number] Dict: 09/18/20 1802 Trans: 09/18/20 1806 AS6 [id number] Interpreted by: KJ LAWS MD Diagonstic Imaging: CT Plain Films/CT/US/NM/MRI: c-spine Comments NAME: SARAH POE [facility] REC#: [id number] PT STATUS: REG ER : 1950 PHYSICIAN: TREMAYNE SCHILLING MD ADMIT DATE: 09/18/20/ER Signed Date of Exam:09/18/20 CT CERVICAL SPINE WO INDICATION: Neck pain, post seizure. TECHNIQUE: Multiple contiguous axial images were obtained through the cervical spine without the use of intravenous contrast. Sagittal and coronal reformations were then performed. Auto Exposure Controls were utilized during the CT exam to meet ALARA standards for radiation dose reduction. Comparison made to 04/19/2020 Patient has had previous anterior fusion from C5 to C7 with discectomy. The alignment of the surgical levels is anatomic. There is slight anterolisthesis of C3 on C4 as well as C4 on C5, which does appear similar to the prior study. There is diffuse facet degenerative change. There is disc space narrowing at C3-C4 and C4-C5 and C7-T1. IMPRESSION: Diffuse degenerative and postoperative findings in the cervical spine, unchanged from 04/19/2020. There is no acute appearing abnormality. Dictated by: Dictated on workstation # [id number] Dict: 09/18/201912 Trans: 09/18/202134 [facility] [id number] Interpreted by: LEON BORDEN MD Electronically signed by: LEON BORDEN MD 09/18/202134 Reviewed: Reviewed by Me Diagonstic Imaging: CT Plain Films/CT/US/NM/MRI: other (CT thoracolumbar spine) Comments CT thoracolumbar spine viewed by me and report reviewed. See report below: NAME: SARAH POE [facility] REC#: [id number] PT STATUS: REG ER : 1950 PHYSICIAN: TREMAYNE SCHILLING MD ADMIT DATE: 09/18/20/ER Signed Date of Exam:09/18/20 CT THORACIC/LUMBAR SPINE WO PROCEDURE: CT thoracic and lumbar spine without contrast. TECHNIQUE: Multiple contiguous axial images were obtained through the thoracic and lumbar spine without the use of intravenous contrast. Sagittal and coronal reformations were then performed.All CT scans use one or more of the following dose optimizing techniques: automated exposure control, MA and/or KvP adjustment based on a patient size and exam type, or iterative reconstruction. INDICATION: Seizure, back pain COMPARISON: MRI from 07/12/2016 FINDINGS: Thoracic spine: There is mild compression deformity at the superior endplate of T3 and T4 and T6, T10, T11 and T12. There is a defect at the superior endplate of T9 which is thought to represent a prominent Schmorl's node. There are mild degenerative changes throughout the thoracic spine. No bony fragments or hyperdense fluid collections are seen in the spinal canal. There is no retropulsion into the spinal canal. There is no spondylolisthesis. There is an old nonunited posterior right 10th rib fracture. There is dependent atelectasis in the lungs bilaterally. Lumbar spine: There is posterior fusion of the lumbar spine from L1 down to L5 with bilateral pedicle screws and posterior fusion rods. No hardware fracture is seen. Unilateral pedicle screws are placed at L1 and L3. Kyphoplasty changes are seen at L2 and L3. There are degenerative changes at L1-L2, L2-L3 and interbody disc spacers at L3-L4 and L5-S1. There is diffuse osteopenia. There is some multilevel vertebral body height loss but this appears stable compared to June 2016. Retrolisthesis at L2-L3 is stable as well. Laminectomy changes are noted. Soft tissues about the lumbar spine are otherwise unremarkable. IMPRESSION: 1. Mild compression deformities of T3, T4, T6, T10, T11, and T12. These are new since 2017. Some may be chronic, however, some are concerning for acute fractures. Recommend MRI follow-up to evaluate for acuity. 2. Postsurgical and advanced degenerative changes in the lumbar spine appears stable since 2017. No acute fracture is seen. Dictated by: Dictated on workstation # [id number] Dict: 09/18/201916 Trans: 09/18/201930 NIEVES [id number] Interpreted by: KJ LAWS MD Electronically signed by: KJ LAWS MD 09/18/201930 Diagonstic Imaging: CT Plain Films/CT/US/NM/MRI: pelvis Comments CT pelvis viewed by me and report reviewed. See report below: NAME: SARAH POE [facility] REC#: [id number] PT STATUS: REG ER : 1950 PHYSICIAN: TREMAYNE SCHILLING MD ADMIT DATE: 09/18/20/ER Signed Date of Exam:09/18/20 CT PELVIS WO PROCEDURE: CT pelvis without contrast. TECHNIQUE: Multiple contiguous axial images were obtained through the pelvis without the use of intravenous contrast. Sagittal and coronal reformations were performed. Auto Exposure Controls were utilized during the CT exam to meet ALARA standards for radiation dose reduction. INDICATION: Right hip and leg pain. COMPARISON: Radiographs from 04/19/2020. FINDINGS: The lumbar spine is described in a separate report. There is diffuse osteopenia. There is an acute subcapital fracture of the proximal right femur with impaction and superior displacement of the distal femur as well as mild medial and moderate posterior angulation. The femoral head remains well seated in the acetabulum. There are moderate degenerative changes in the hip joints. No additional fractures are identified in the pelvis. There is marked stool in the rectum. There is colonic diverticulosis without diverticulitis. There is a small right hip joint effusion. IMPRESSION: 1. Mildly impacted, angulated, displaced subcapital fracture of the proximal right femur. 2. Small right hip joint effusion. 3. Marked dense stool in the rectum, may be due to impaction. Dictated by: Dictated on workstation # [id number] Dict: 09/18/201912 Trans: 09/18/201930 AS6 [id number] Interpreted by: KJ LAWS MD Electronically signed by: KJ LAWS MD 09/18/201930 Diagonstic Imaging: Xray Plain Films/CT/US/NM/MRI: leg Comments Tib-fib and femur x-rays viewed by me and report reviewed. See reports below: NAME: SARAH POE MED REC#: [id number] PT STATUS: REG ER : 1950 PHYSICIAN: TREMAYNE SCHILLING MD ADMIT DATE: 09/18/20/ER Signed Date of Exam:09/18/20 FEMUR, RIGHT, 2 VIEWS INDICATION: Right femur pain post injury AP and lateral views of the right femur are obtained. There is an impacted fracture of the right femoral neck with moderate displacement. The femoral shaft appears intact. Right knee prosthesis is in good alignment. IMPRESSION: Impacted fracture of the right femoral neck with intact femoral shaft. Dictated by: Dictated on workstation # [id number] Dict: 09/18/201927 Trans: 09/18/202134 [facility] [id number] Interpreted by: LEON BORDEN MD Electronically signed by: LEON BORDEN MD 09/18/202134 NAME: SARAH POE MED REC#: [id number] PT STATUS: REG ER : 1950 PHYSICIAN: TREMAYNE SCHILLING MD ADMIT DATE: 09/18/20/ER Signed Date of Exam:09/18/20 TIBIA/FIBULA, RIGHT, 2 VIEWS HISTORY: Right leg pain TECHNIQUE: 2 views of the right tibia/fibula COMPARISON: None FINDINGS: No acute fracture or dislocation is seen in the right tibia/fibula. Alignment appears normal. There is a right knee arthroplasty and no hardware complication is seen on these views. IMPRESSION: 1. No acute osseous abnormality is seen in the right tibia/fibula. Dictated by: Dictated on workstation # [id number] Dict: 09/18/201928 Trans: 09/18/201944 NIEVES [id number] Interpreted by: KJ LAWS MD Electronically signed by: KJ LAWS MD 09/18/201944 (TREMAYNE SCHILLING MD) Transfer of Care Time: 17:57 Care transferred to: Dr. Courtney (NIKHIL WILDER) Departure Impression Primary Impression: Seizure Additional Impressions: Compression fracture Closed right hip fracture Qualified Codes: S72.001A - Fracture of unspecified part of neck of right femur, initial encounter for closed fracture Dementia Qualified Codes: F03.90 - Unspecified dementia without behavioral disturbance Urinary tract infection Qualified Codes: N39.0 - Urinary tract infection, site not specified Disposition: 01 HOME, SELF-CARE Condition: Stable Departure-Patient Inst. Decision time for Depature: 21:07 (TREMAYNE SCHILLING MD) Referrals: ZULEYMA OCHOA MD (PCP/Family) Primary Care Physician Patient Instructions: Seizures, Urinary Tract Infection, Adult (DC), Vertebral Compression Fracture Add. Discharge Instructions: Work with hospice regarding control of pain and level of care. Please contact Dr. Ochoa's office regarding any further follow-up that you need. Complete antibiotics as prescribed. Start to the Keppra antiseizure medication as prescribed. Call with questions or concerns. Call hospice if you have any urgent needs. Scripts Levetiracetam (Keppra) 500 Mg Tablet 500 MG PO BID, #60 TAB Prov: TREMAYNE SCHILLING MD 09/18/20 Ciprofloxacin HCl (Cipro) 500 Mg Tablet 500 MG PO BID, #10 TAB Prov: TREMAYNE SCHILLING MD 09/18/20 Copy Copies To 1: REGINO BHAT MD Copies To 2: ZULEYMA OCHOA MD, TITUS J September 18, 2020 17:05 TREMAYNE SCHILLING MD September 18, 2020 18:28
[2020-09-18 17:12] LABS: BASOPHILS # (AUTO) 0.1 10^3/uL (0.0-0.1); BASOPHILS % (AUTO) 1 % (0-10); EOSINOPHILS # (AUTO) 0.1 10^3/uL (0.0-0.3); EOSINOPHILS % (AUTO) 1 % (0-10); HEMATOCRIT 39 % (35-52); HEMOGLOBIN 13.1 g/dL (11.5-16.0); LYMPHOCYTES # (AUTO) 5.9 10^3/uL (1.0-4.0); LYMPHOCYTES % (AUTO) 36 % (12-44); MEAN CORPUSCULAR HEMOGLOBIN 31 pg (25-34); MEAN CORPUSCULAR HGB CONC 34 g/dL (32-36); MEAN CORPUSCULAR VOLUME 93 fL (80-99); MEAN PLATELET VOLUME 11.2 fL (9.0-12.2); MONOCYTES # (AUTO) 0.7 10^3/uL (0.0-1.0); MONOCYTES % (AUTO) 4 % (0-12); NEUTROPHILS # (AUTO) 8.9 10^3/uL (1.8-7.8); NEUTROPHILS % (AUTO) 54 % (42-75); PLATELET COUNT 322 10^3/uL (130-400); WHITE BLOOD COUNT 16.5 10^3/uL (4.3-11.0)
[2020-09-18 17:21] LABS: BILIRUBIN,URINE NEGATIVE (NEGATIVE); CLARITY,URINE CLEAR; COLOR,URINE YELLOW; GLUCOSE, URINE (UA) NEGATIVE (NEGATIVE); KETONES,URINE NEGATIVE (NEGATIVE); LEUKOCYTE ESTERASE ,URINE NEGATIVE (NEGATIVE); NITRITE,URINE NEGATIVE (NEGATIVE); PH,URINE 7.5 (5-9); PROTEIN,URINE NEGATIVE (NEGATIVE)
[2020-09-18 17:32] LABS: BACTERIA,URINE LARGE /HPF; SQUAMOUS EPITHELIAL CELL,UR 0-2 /HPF
[2020-09-18 17:33] LABS: ALANINE AMINOTRANSFERASE 42 U/L (0-55); ALBUMIN 3.7 GM/DL (3.2-4.5); ALKALINE PHOSPHATASE 84 U/L (40-136); BILIRUBIN,TOTAL 0.5 MG/DL (0.1-1.0); BUN/CREATININE RATIO 19; CALCIUM 8.5 MG/DL (8.5-10.1); CARBON DIOXIDE 18 MMOL/L (21-32); CHLORIDE 109 MMOL/L (98-107); CREATININE SERUM 0.88 MG/DL (0.60-1.30); GFR ESTIMATED > 60; GLUCOSE 144 MG/DL (70-105); POTASSIUM 3.7 MMOL/L (3.6-5.0); SODIUM 141 MMOL/L (135-145); TOTAL PROTEIN 6.2 GM/DL (6.4-8.2)
[2020-09-18 17:37] LABS: ANISOCYTOSIS SLIGHT; BAND NEUTROPHILS 2 %; EOSINOPHILS % (MANUAL) 1 %; HYPOCHROMASIA SLIGHT; LYMPHOCYTES % (MANUAL) 28 %; MONOCYTES % (MANUAL) 18 %; NEUTROPHILS % (MANUAL) 51 %
--- NOTE | 2020-09-18 18:07 | Diagnostic Imaging Report ---
PROCEDURE: CT head without contrast. TECHNIQUE: Multiple contiguous axial images were obtained through the brain without the use of intravenous contrast. Auto Exposure Controls were utilized during the CT exam to meet ALARA standards for radiation dose reduction. INDICATION: Seizure. Prolonged postictal. COMPARISON: 04/19/2020. FINDINGS: The ventricles and cortical sulci are prominent. There is no midline shift or mass effect identified. No acute intracranial hemorrhage is seen. There is encephalomalacia in left frontal lobe from old infarct. This appears stable since the prior exam. Areas of decreased attenuation are seen in the subcortical and periventricular white matter. These likely represent chronic microvascular disease. No CT evidence of acute territorial ischemia is seen. The calvarium is intact. The paranasal sinuses appear clear. There are postsurgical changes of the face and left frontal bone. IMPRESSION: 1. No acute intracranial hemorrhage. No CT evidence of acute territorial ischemia. 2. Generalized parenchymal volume loss and findings of chronic microvascular disease. Dictated by: Dictated on workstation # [email or web address]
[2020-09-18] MEDS ORDERED: fentaNYL INJ 100 MCG/2 ML AMP IVP ONE (18:45)
[2020-09-18] MEDS ORDERED: MEROPENEM 500 MG in WATER (STERILE) FOR INJECTION 10 ML IV ONE (18:45)
--- NOTE | 2020-09-18 19:19 | Diagnostic Imaging Report ---
INDICATION: Neck pain, post seizure. TECHNIQUE: Multiple contiguous axial images were obtained through the cervical spine without the use of intravenous contrast. Sagittal and coronal reformations were then performed. Auto Exposure Controls were utilized during the CT exam to meet ALARA standards for radiation dose reduction. Comparison made to 04/19/2020 Patient has had previous anterior fusion from C5 to C7 with discectomy. The alignment of the surgical levels is anatomic. There is slight anterolisthesis of C3 on C4 as well as C4 on C5, which does appear similar to the prior study. There is diffuse facet degenerative change. There is disc space narrowing at C3-C4 and C4-C5 and C7-T1. IMPRESSION: Diffuse degenerative and postoperative findings in the cervical spine, unchanged from 04/19/2020. There is no acute appearing abnormality. Dictated by: Dictated on workstation # [id number]
--- NOTE | 2020-09-18 19:20 | Diagnostic Imaging Report ---
PROCEDURE: CT pelvis without contrast. TECHNIQUE: Multiple contiguous axial images were obtained through the pelvis without the use of intravenous contrast. Sagittal and coronal reformations were performed. Auto Exposure Controls were utilized during the CT exam to meet ALARA standards for radiation dose reduction. INDICATION: Right hip and leg pain. COMPARISON: Radiographs from 04/19/2020. FINDINGS: The lumbar spine is described in a separate report. There is diffuse osteopenia. There is an acute subcapital fracture of the proximal right femur with impaction and superior displacement of the distal femur as well as mild medial and moderate posterior angulation. The femoral head remains well seated in the acetabulum. There are moderate degenerative changes in the hip joints. No additional fractures are identified in the pelvis. There is marked stool in the rectum. There is colonic diverticulosis without diverticulitis. There is a small right hip joint effusion. IMPRESSION: 1. Mildly impacted, angulated, displaced subcapital fracture of the proximal right femur. 2. Small right hip joint effusion. 3. Marked dense stool in the rectum, may be due to impaction. Dictated by: Dictated on workstation # [id number]
--- NOTE | 2020-09-18 19:27 | Diagnostic Imaging Report ---
PROCEDURE: CT thoracic and lumbar spine without contrast. TECHNIQUE: Multiple contiguous axial images were obtained through the thoracic and lumbar spine without the use of intravenous contrast. Sagittal and coronal reformations were then performed.All CT scans use one or more of the following dose optimizing techniques: automated exposure control, MA and/or KvP adjustment based on a patient size and exam type, or iterative reconstruction. INDICATION: Seizure, back pain COMPARISON: MRI from 07/12/2016 FINDINGS: Thoracic spine: There is mild compression deformity at the superior endplate of T3 and T4 and T6, T10, T11 and T12. There is a defect at the superior endplate of T9 which is thought to represent a prominent Schmorl's node. There are mild degenerative changes throughout the thoracic spine. No bony fragments or hyperdense fluid collections are seen in the spinal canal. There is no retropulsion into the spinal canal. There is no spondylolisthesis. There is an old nonunited posterior right 10th rib fracture. There is dependent atelectasis in the lungs bilaterally. Lumbar spine: There is posterior fusion of the lumbar spine from L1 down to L5 with bilateral pedicle screws and posterior fusion rods. No hardware fracture is seen. Unilateral pedicle screws are placed at L1 and L3. Kyphoplasty changes are seen at L2 and L3. There are degenerative changes at L1-L2, L2-L3 and interbody disc spacers at L3-L4 and L5-S1. There is diffuse osteopenia. There is some multilevel vertebral body height loss but this appears stable compared to June 2016. Retrolisthesis at L2-L3 is stable as well. Laminectomy changes are noted. Soft tissues about the lumbar spine are otherwise unremarkable. IMPRESSION: 1. Mild compression deformities of T3, T4, T6, T10, T11, and T12. These are new since 2017. Some may be chronic, however, some are concerning for acute fractures. Recommend MRI follow-up to evaluate for acuity. 2. Postsurgical and advanced degenerative changes in the lumbar spine appears stable since 2017. No acute fracture is seen. Dictated by: Dictated on workstation # [id number]
--- NOTE | 2020-09-18 19:31 | Diagnostic Imaging Report ---
INDICATION: Right femur pain post injury AP and lateral views of the right femur are obtained. There is an impacted fracture of the right femoral neck with moderate displacement. The femoral shaft appears intact. Right knee prosthesis is in good alignment. IMPRESSION: Impacted fracture of the right femoral neck with intact femoral shaft. Dictated by: Dictated on workstation # [id number]
--- NOTE | 2020-09-18 19:34 | Diagnostic Imaging Report ---
HISTORY: Right leg pain TECHNIQUE: 2 views of the right tibia/fibula COMPARISON: None FINDINGS: No acute fracture or dislocation is seen in the right tibia/fibula. Alignment appears normal. There is a right knee arthroplasty and no hardware complication is seen on these views. IMPRESSION: 1. No acute osseous abnormality is seen in the right tibia/fibula. Dictated by: Dictated on workstation # [id number]
[2020-09-18] MEDS ORDERED: CIPR-225 PO (21:11)
[2020-09-18] MEDS ORDERED: LEVE500T99 PO (21:11)
[2020-09-18 21:26] VITALS: BP 110/63
== END 2020-09-18 21:26 | disposition home or self-care (01) ==
LOC: EDUNIT# 16:52 → ER 16:53
DX: S72.001A Fracture of unspecified part of neck of right femur, initial encounter for closed fracture (principal); S22.030A Wedge compression fracture of third thoracic vertebra, initial encounter for closed fracture; S22.040A Wedge compression fracture of fourth thoracic vertebra, initial encounter for closed fracture; S22.050A Wedge compression fracture of T5-T6 vertebra, initial encounter for closed fracture; S22.070A Wedge compression fracture of T9-T10 vertebra, initial encounter for closed fracture; S22.080A Wedge compression fracture of T11-T12 vertebra, initial encounter for closed fracture; F03.90 Unspecified dementia, unspecified severity, without behavioral disturbance, psychotic disturbance, mood disturbance, and anxiety; N39.0 Urinary tract infection, site not specified; G40.909 Epilepsy, unspecified, not intractable, without status epilepticus; E11.9 Type 2 diabetes mellitus without complications; J45.909 Unspecified asthma, uncomplicated; G89.29 Other chronic pain; M54.9 Dorsalgia, unspecified; Z86.73 Personal history of transient ischemic attack (TIA), and cerebral infarction without residual deficits; Z98.890 Other specified postprocedural states; Z88.0 Allergy status to penicillin; Z88.8 Allergy status to other drugs, medicaments and biological substances; Z79.82 Long term (current) use of aspirin; Z79.891 Long term (current) use of opiate analgesic; Z79.899 Other long term (current) drug therapy; X58.XXXA Exposure to other specified factors, initial encounter
CPT/HCPCS: 36415; 70450; 72125; 72128; 72131; 72192; 73552; 73590; 80053; 81000; 82550; 82947; 85007; 85027; 86141; 93005; 96374; 96375